=== PATIENT | male | born 1945 | race Hispanic/Latino ===

== ENCOUNTER → 2018-12-24 | Outpatient (CLI) | payer MEDICARE ==
--- NOTE | 2018-12-24 12:36 | Diagnostic Imaging Report ---
EXAM: Lumbar spine radiographs-5 views INDICATION: Back pain COMPARISON: None FINDINGS: BONES: Minimal anterolisthesis of L5 on S1 and retrolisthesis of L4 and L5. No acute displaced fractures. Vertebral body heights are preserved. DISCS: Mild degenerative disc changes, most pronounced at L5-S1. No significant bony neural foraminal stenosis. JOINTS: Moderate facet degenerative changes, most pronounced at L5-S1. OTHER: Atherosclerotic vascular calcifications. IMPRESSION: No acute lumbar spine radiographic findings. Mild degenerative disc and moderate facet degenerative changes, most pronounced in the lower lumbar spine. Signed by: Dr. Angelique Gonzales MD on 12/24/2018 12:33 PM
== END ==
LOC: RAD 11:38
PROVIDERS: ATTEND Internal Medicine
DX: M54.5 Low back pain (principal)
CPT/HCPCS: 72110

== ENCOUNTER 2019-08-20 07:36 | Inpatient (IN) | payer MEDICARE, OTHER ==
[2019-08-18 13:55] LABS: BASOPHILS # (AUTO) 0.1 (0.0-0.1); BASOPHILS % 0.5 % (0.0-1.0); EOSINOPHILS % 8.2 % (0.0-6.0); HEMATOCRIT 34.5 % (38.2-49.6); HEMOGLOBIN 11.3 g/dL (14.0-18.0); LYMPHOCYTES # (AUTO) 2.4 (1.0-3.2); MEAN CORPUSCULAR HGB CONC 32.8 g/dL (31-35); MEAN CORPUSCULAR VOLUME 91.5 fL (81-99); MONOCYTES # (AUTO) 0.8 (0.2-0.8); MONOCYTES % 7.3 % (4.4-11.3); NEUTROPHILS # (AUTO) 7.2 (2.1-6.9); NEUTROPHILS % 62.5 % (38.7-80.0); PLATELET COUNT 263 x10e3/uL (140-360); RED BLOOD COUNT 3.77 x10e6/uL (4.3-5.7); RED CELL DISTRIBUTION WIDTH 13.9 % (11.7-14.4)
--- NOTE | 2019-08-18 14:11 | Diagnostic Imaging Report ---
EXAMINATION: CHEST 2 VIEWS INDICATION: Pre-operative COMPARISON: None FINDINGS: LINES/TUBES:None LUNGS:The lungs are well-inflated. No focal consolidation or pulmonary edema. PLEURA:No pleural effusion or pneumothorax. MEDIASTINUM:The cardiomediastinal silhouette appears normal in size and shape. BONES/SOFT TISSUES:No acute osseous injury. Sternotomy wires in place. ABDOMEN:No free air under the diaphragm. IMPRESSION: No focal pneumonia or pulmonary edema. Signed by: Alexandria Santos MD on 08/18/2019 2:09 PM
[2019-08-18 14:19] LABS: ANION GAP 15.6 mmol/L (8-16); BLOOD UREA NITROGEN 18 mg/dL (7-26); BUN/CREATININE RATIO 19 (6-25); CALCIUM 9.7 mg/dL (8.4-10.2); CARBON DIOXIDE 24 mmol/L (22-29); CHLORIDE 107 mmol/L (98-107); CREATININE, SERUM 0.96 mg/dL (0.72-1.25); EST GLOMERULAR FILTRATION RATE > 60 ML/MIN (60-); GLUCOSE 142 mg/dL (74-118); POTASSIUM 4.6 mmol/L (3.5-5.1); SODIUM 142 mmol/L (136-145)
[~2019-08-20] VITALS: Ht 162.6 cm; Wt 78.5 kg
[~2019-08-20 07:36] MED LIST: ASPIR 8181 MG PO; ATORVASTATIN CA20 MG PO; CENTRUM ADULTS1 EACH PO; DIGOXIN125 MCG PO; FINASTERIDE5 MG PO; FLOMAX0.4 MG PO; HUMALOG100 UNIT/3 SQ; LANTUS 3ML100 UNITS/ SQ; LISINOPRIL10 MG PO; LISINOPRIL2.5 MG PO; LYRICA50 MG PO; METFORMIN HCL500 MG PO; METOPROLOL SUCC25 MG PO; VITAMIN D32000 UNI1 PO; VITAMIN D400 UNIT PO
--- OUTSIDE RECORDS SUMMARY | 2019-08-20 07:47 | XMS REPORT ---
[facility] Address Unknown Phone Unavailable Care Team Providers Care Dulser Name Role Phone BERTIN CARRASCO Unavailable Unavailable AKI MTZ Unavailable Unavailable Payers Payer Name Policy Type Policy Number Effective Date Expiration Date Problems This patient has no known problems. Allergies, Adverse Reactions, Alerts Allergy Name Allergy Type Status Severity Reaction(s) Onset Date Inactive Date Treating Clinician Comments No Known Allergies DA Active U 2018-11-25 00:00:00 No Known Allergies DA Active U 2014-10-01 00:00:00 No Known Allergies DA Active U 2012-08-18 00:00:00 Medications This patient has no known medications. Results Test Description Test Time Test Comments Text Results Atomic Results Result Comments CHEST 2 VIEWS 2019-08-18 14:07:00 [facility] [address] [address] Patient Name: TORI TRIPLETT MR #: [id number] : 1945 Age/Sex: 73/M Req #: [id number] Adm Physician: Ordered by: BERTIN CARRASCO MD Report #: [id number] Location: OR Room/Bed: Procedure: [id number] DX/CHEST 2 VIEWS Exam Date: 08/18/19 Exam Time: 1345 REPORT STATUS: Signed EXAMINATION: CHEST 2 VIEWS INDICATION: Pre-operative COMPARISON: None FINDINGS: LINES/TUBES:None LUNGS:The lungs are well-inflated. No focal consolidation or pulmonary edema. PLEURA:No pleural effusion or pneumothorax. MEDIASTINUM:The cardiomediastinal silhouette appears normal in size and shape. BONES/SOFT TISSUES:No acute osseous injury. Sternotomy wires in place. ABDOMEN:No free air under the diaphragm. IMPRESSION: No focal pneumonia or pulmonary edema. Signed by: Sallie Valenzuela MD on 08/18/2019 2:09 PM Dictated By: SALLIE VALENZUELA MD 08 Transcribed By: KENZIE on 08/18/191408 COPY TO: BERTIN CARRASCO MD - XR C-SPINE 4-5 V 2019-02-28 12:17:00 FAX: Aki Espitia MD [phone] [place]: O St: REG Name: UZIEL REDDL[facility]VIABAS[facility] : 1945 Age/S: 73/M [address] Unit #: [id number] Loc: [place] [address] Phys: Aki Mtz MD Acct: [id number] Dis Date: Status: REG CLI PHONE #: [phone] Exam Date: 02/28/2019 1158 FAX #: [phone] Reason: CERVICAL SPINE PAIN EXAMS: CPT CODE: [id number] XR C-SPINE 4-5 V 71112 HISTORY: Pain. COMPARISON: None available. 5 views of the cervical spine: No acute fracture or dislocation. Vertebral body heights are maintained. Mild straightening may suggest muscular spasm or this could be positional. C7 is partially obscured by overlying shoulder. Marginal osteophytes throughout the cervical spine with sparing of the C4 vertebral body. No prevertebral soft tissue swelling. Narrowed disc space at C5-C6 level. Cervical foraminal narrowing at C5-C6 level from posterior osteophytes especially on the left side. Uncovertebral joints are narrowed. Lateral masses are well marginated. Lung apices are clear. IMPRESSION: No acute fracture or dislocation. 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 at 1217 Reported and signed by: Charles Holman M.D. CC: Aki Mtz Technologist: RT ANAI(Myriam) Trnscrd Date/Time/By: 02/28/2019 (1217) : By: [email or web address] Orig Print D/T: S: 02/28/2019 (6551) PAGE 1 Signed Report GLUBED 2019-02-10 04:55:00 GLUBED (test code=GLUBED) 146 MG/DL 70-110 Performed by certified gas station operator at [facility] - RETRO [id number] 14:22:00 Name: TORI GREGORY [facility] : 1945 Age/S: 73 / M [address] [place] [address] Unit #: [id number] Loc: [place] [address] Phys: Bertin Carrasco MD Acct: [id number] Dis Date: Status: ADM IN PHONE #: [phone] Exam Date: 02/08/2019 1354 FAX #: [phone] Reason: UTI EXAMS: CPT CODE: [id number] RETRO LTD 29749 PROCEDURE: RENAL ULTRASOUND INDICATION: Urinary tract infection COMPARISON: CT 11/26/2018 TECHNIQUE: Sonographic evaluation of the kidneys and urinary bladder was performed. FINDINGS: Aorta, bifurcation, and IVC are not well-visualized. KIDNEYS: The right kidney measures 10.7 cm in length. Normal contour and parenchymal echogenicity. There is no hydronephrosis, nephrolithiasis, mass lesion or perinephric collection. The left kidney measures 10.7 cm in length. Normal contour and parenchymal echogenicity. There is no hydronephrosis, nephrolithiasis, mass lesion or perinephric collection. BLADDER: Not distended. Heterogenous mass along the inferior portion of the urinary bladder measures 5.9 x 5.0 x 5.3 cm. There is extrinsic mass effect. IMPRESSION: 1. No hydronephrosis or renal stones. 2. Enlarged prostate SL: [id number] at 1422 Reported and signed by: Sb Her M.D. CC: Bertin Carrasco MD; Aki Mtz MD Technologist: Rashmi Soler RDMS(OB)(AB) Trnscb Date/Time: 02/08/2019 (1422) [email or web address] Orig Print D/T: S: 02/08/2019 (5817) Probe: PAGE 1 Signed Report [id number] 11:53:00* Test Item Value Reference Range Comments GLUBED (test code=GLUBED) 86 MG/DL 70-110 Performed by certified gas station operator at [facility] [id number] 08:28:00* Test Item Value Reference Range Comments GLUBED (test code=GLUBED) 108 MG/DL 70-110 Performed by certified gas station operator at [facility] [id number] 16:54:00* Test Item Value Reference Range Comments GLUBED (test code=GLUBED) 129 MG/DL 70-110 Performed by certified gas station operator at [facility] BASIC METABOLIC [id number] 14:33:00* Test Item Value Reference Range Comments SODIUM (test code=NA) 141 mEq/L 134-147 POTASSIUM (test code=K) 4.1 mEq/L 3.4-5.0 CHLORIDE (test code=CL) 106 mEq/L 100-108 CARBON DIOXIDE (test code=CO2) 27 mEq/L 21-33 ANION GAP (test code=GAP) 12 0-20 GLUCOSE (test code=GLU) 128 mg/dL 70-110 BLOOD UREA NITROGEN (test code=BUN) 20 mg/dL 7-18 GLOMERULAR FILTRATION RATE (test code=GFR) 73.2 70-80 Units of measure=ml/min/1.73 m2 CREATININE (test code=CREAT) 1.0 mg/dL 0.6-1.3 CALCIUM (test code=CA) 8.8 mg/dL 8.0-10.5 [id number] 14:33:00* Test Item Value Reference Range Comments MAGNESIUM (test code=MAG) 1.40 mg/dL 1.8-2.4 CBC W/AUTO [id number] 14:20:00* Test Item Value Reference Range Comments WHITE BLOOD CELL (test code=WBC) 8.28 x10 3/uL 4.5-11.0 RED BLOOD CELL (test code=RBC) 4.07 x10 6/uL 4.00-5.60 HEMOGLOBIN (test code=HGB) 11.4 g/dL 12.5-16.9 HEMATOCRIT (test code=HCT) 35.1 % 37.5-50.7 MEAN CELL VOLUME (test code=MCV) 86.2 fL 81.0-99.0 MEAN CELL HGB (test code=MCH) 28.0 pg 27.0-33.0 MEAN CELL HGB CONCETRATION (test code=MCHC) 32.5 g/dL 33.0-37.0 RED CELL DISTRIBUTION WIDTH CV (test code=RDW) 16.4 % 11.5-14.5 RED CELL DISTRIBUTION WIDTH SD (test code=RDW-SD) 51.8 fL 37.0-54.0 PLATELET COUNT (test code=PLT) 398 x10 3/uL 150-400 MEAN PLATELET VOLUME (test code=MPV) 9.8 fL 7.0-9.0 NEUTROPHIL % (test code=NT%) 53.4 % 56.0-77.0 IMMATURE GRANULOCYTE % (test code=IG%) 0.5 % 0.0-2.0 LYMPHOCYTE % (test code=LY%) 26.3 % 14.0-32.0 MONOCYTE % (test code=MO%) 8.6 % 4.8-9.0 EOSINOPHIL % (test code=EO%) 10.5 % 0.3-3.7 BASOPHIL % (test code=BA%) 0.7 % 0.0-2.0 NUCLEATED RBC % (test code=NRBC%) 0.0 % 0-0 NEUTROPHIL # (test code=NT#) 4.42 x10 3/uL 2.0-7.6 IMMATURE GRANULOCYTE # (test code=IG#) 0.04 x10 3/uL 0.00-0.03 LYMPHOCYTE # (test code=LY#) 2.18 x10 3/uL 1.0-3.8 MONOCYTE # (test code=MO#) 0.71 x10 3/uL 0.1-0.8 EOSINOPHIL # (test code=EO#) 0.87 x10 3/uL 0.0-0.2 BASOPHIL # (test code=BA#) 0.06 x10 3/uL 0.0-0.2 NUCLEATED RBC # (test code=NRBC#) 0.00 x10 3/uL 0.0-0.1 MANUAL DIFF REQUIRED (test code=MDIFF) NO [id number] 12:02:00* Test Item Value Reference Range Comments GLUBED (test code=GLUBED) 106 MG/DL 70-110 Performed by certified gas station operator at [facility] [id number] 09:28:00* Test Item Value Reference Range Comments GLUBED (test code=GLUBED) 152 MG/DL 70-110 Performed by certified gas station operator at [facility] [id number] 09:01:00* Test Item Value Reference Range Comments GLUBED (test code=GLUBED) 119 MG/DL 70-110 Performed by certified gas station operator at [facility] [id number] 18:28:00* Test Item Value Reference Range Comments GLUBED (test code=GLUBED) 122 MG/DL 70-110 Performed by certified gas station operator at [facility] [id number] 13:20:00* Test Item Value Reference Range Comments GLUBED (test code=GLUBED) 172 MG/DL 70-110 Performed by certified gas station operator at [facility] [id number] 13:20:00* Test Item Value Reference Range Comments GLUBED (test code=GLUBED) 126 MG/DL 70-110 Performed by certified gas station operator at [facility] [id number] 21:12:00* Test Item Value Reference Range Comments GLUBED (test code=GLUBED) 207 MG/DL 70-110 Performed by certified gas station operator at [facility] [id number] 20:54:00* Test Item Value Reference Range Comments TROPONIN-I (test code=TROPI) 0.036 ng/mL 0.000-0.045 Negative: <=0.045 Positive: >=0.046 Correlation with serial results, other cardiac markers andclinical findings is necessary to determine the clinicalsignificance of this result. Results using different methodologies should not be comparedto one another as quantitative results may vary by method. COMMENTS: 3 troponins total (including troponin done in ED)[id number] 17:11:00* Test Item Value Reference Range Comments TROPONIN-I (test code=TROPI) 0.031 ng/mL 0.000-0.045 Negative: <=0.045 Positive: >=0.046 Correlation with serial results, other cardiac markers andclinical findings is necessary to determine the clinicalsignificance of this result. Results using different methodologies should not be comparedto one another as quantitative results may vary by method. COMMENTS: 3 troponins total (including troponin done in ED)PROCALCITONIN (PCT) 2019-02-05 14:12:00* Test Item Value Reference Range Comments PROCALCITONIN (PCT) (test code=PROCAL) 0.10 ng/mL 0.00-0.05 PROCALCITONIN (PCT) NORMAL RANGE (ADULT): <0.05 NG/ML. * a concentration <0.5 ng/mL represents a low risk of severe sepsis and/or septic shock.* a concentration >2 ng/mL represents a high risk of severe sepsis and/or septic shock.Nevertheless, concentrations <0.5 ng/mL do not exclude aninfection, on account of localized infections (withoutsystemic signs) which can be associated with such lowconcentrations, or a systemic infection in its initialstages (< 6 hours). Furthermore, increased procalcitonincan occur without infection. PCT concentrations between 0.5and 2.0 ng/mL should be interpreted taking into account thepatient's history. It is recommended to retest PCT within6-24 hours if any concentrations <2 ng/mL are obtained. URINALYSIS [id number] 12:24:00* Test Item Value Reference Range Comments UA COLOR (test code=COLU) ISMAEL YEL/STRAW UA APPEARANCE (test code=APPU) CLOUDY CLEAR UA GLUCOSE DIPSTICK (test code=DGLUU) NEGATIVE NEGATIVE UA BILIRUBIN DIPSTICK (test code=BILU) NEGATIVE NEGATIVE UA KETONE DIPSTICK (test code=KETU) NEGATIVE NEGATIVE UA SPECIFIC GRAVITY (test code=SGU) 1.017 1.005-1.030 UA BLOOD DIPSTICK (test code=BO) 1+ NEGATIVE UA PH DIPSTICK (test code=MARIBEL) 5.0 5.0-7.0 UA PROTEIN DIPSTICK (test code=PROU) NEGATIVE NEGATIVE UA UROBILINIOGEN DIPSTICK (test code=URO) 0.2 mg/dL 0.2-1.0 UA NITRITE DIPSTICK (test code=JAMEEL) NEGATIVE NEGATIVE UA LEUKOCYTE ESTERASE DIPSTICK (test code=LEUU) 3+ NEGATIVE UA WBC (test code=WBCU) >50 WBC/HPF 0-3 UA RBC (test code=RBCU) 4-10 RBC/HPF 0-3 UA BACTERIA (test code=BACU) 4+ /HPF NONE SEEN UA SQUAMOUS CELLS (test code=SQU) 0-5 /HPF NONE SEEN UA HYALINE CAST (test code=HYALU) 3-5 /LPF NONE SEEN UA MUCUS (test code=MUCU) TRACE /LPF NONE SEEN COMMENTS: Clean [id number] 11:13:00* Test Item Value Reference Range Comments TROPONIN-I (test code=TROPI) 0.020 ng/mL 0.000-0.045 Negative: <=0.045 Positive: >=0.046 Correlation with serial results, other cardiac markers andclinical findings is necessary to determine the clinicalsignificance of this result. Results using different methodologies should not be comparedto one another as quantitative results may vary by method. - XR CHEST 1 [id number] 11:02:00 FAX: Lupe Gracia DO [phone] [place]: GE St: PRE Name: TORI SOMERS [facility] : [birth year] Age/S: 73/M [address] [place] [address] Blvd Unit #: [id number] Loc: [place] [address] Phys: Lupe Glaser DO Acct: [id number] Dis Date: Status: PRE ER PHONE #: [phone] Exam Date: 02/05/2019 1049 FAX #: [phone] Reason: FEVER EXAMS: CPT CODE: [id number] XR CHEST 1 V 57986 PROCEDURE: CHEST SINGLE VIEW INDICATION: Fever COMPARISON: Multiple priors, most recent October 2018 FINDINGS: AP portable chest obtained semiupright with slight lordotic projection. There are increased interstitial lines bilate ral. No consolidation. Aeration improved from most recent prior with impro meagan definition of the pulmonary vasculature. No pleural abnormality. Previous median sternotomy. Mild prominence of the cardiac silhouette, ma gnified by projection without significant change. No acute skeletal abnorm ality. IMPRESSION: 1. Increased interstitial lines may reflect interstitial edema. Inflammation included in the differential. N o definite pneumonia. SL: [id number] at 1102 Reported and signed by: Iker Miller M.D. CC: Lupe Glaser DO Technologist: MIRYAM Kim) Trnscrd Date/Time/By: 02/05/2019 (1102) : By: Yessy Orig Print D/T: S: 02/05/2019 (2056) PAGE 1 Signed Report TROPONIN-I [id number] 10:56:00* Test Item Value Reference Range Comments TROPONIN-I RAPID (test code=TROPIRAP) 0.02 ng/mL 0.00-0.08 Performed by certified gas station operator at [facility] Negative: <=0.08 Positive: >=0.09An elevated troponin value alone is not sufficient todiagnose a myocardial infarction. Rather, the patient sclinical presentation (history, physical exam) and ECGshould be used in conjunction with troponin in thediagnostic evaluation of suspected myocardial infarction. Aserial sampling protocol is recommended to facilitate the identification of temporal changes in troponin levels characteristic of NM. LACTIC ACID [id number] 10:56:00* Test Item Value Reference Range Comments LACTIC ACID POC (test code=LACTP) 1.6 MMOL/L 0.90-1.70 Performed by certified gas station operator at [facility] CBC W/AUTO [id number] 10:53:00* Test Item Value Reference Range Comments WHITE BLOOD CELL (test code=WBC) 8.51 x10 3/uL 4.5-11.0 RED BLOOD CELL (test code=RBC) 3.64 x10 6/uL 4.00-5.60 HEMOGLOBIN (test code=HGB) 10.3 g/dL 12.5-16.9 HEMATOCRIT (test code=HCT) 31.8 % 37.5-50.7 MEAN CELL VOLUME (test code=MCV) 87.4 fL 81.0-99.0 MEAN CELL HGB (test code=MCH) 28.3 pg 27.0-33.0 MEAN CELL HGB CONCETRATION (test code=MCHC) 32.4 g/dL 33.0-37.0 RED CELL DISTRIBUTION WIDTH CV (test code=RDW) 16.8 % 11.5-14.5 RED CELL DISTRIBUTION WIDTH SD (test code=RDW-SD) 53.4 fL 37.0-54.0 PLATELET COUNT (test code=PLT) 344 x10 3/uL 150-400 MEAN PLATELET VOLUME (test code=MPV) 9.8 fL 7.0-9.0 NEUTROPHIL % (test code=NT%) 63.6 % 56.0-77.0 IMMATURE GRANULOCYTE % (test code=IG%) 0.7 % 0.0-2.0 LYMPHOCYTE % (test code=LY%) 16.3 % 14.0-32.0 MONOCYTE % (test code=MO%) 9.6 % 4.8-9.0 EOSINOPHIL % (test code=EO%) 9.4 % 0.3-3.7 BASOPHIL % (test code=BA%) 0.4 % 0.0-2.0 NUCLEATED RBC % (test code=NRBC%) 0.0 % 0-0 NEUTROPHIL # (test code=NT#) 5.41 x10 3/uL 2.0-7.6 IMMATURE GRANULOCYTE # (test code=IG#) 0.06 x10 3/uL 0.00-0.03 LYMPHOCYTE # (test code=LY#) 1.39 x10 3/uL 1.0-3.8 MONOCYTE # (test code=MO#) 0.82 x10 3/uL 0.1-0.8 EOSINOPHIL # (test code=EO#) 0.80 x10 3/uL 0.0-0.2 BASOPHIL # (test code=BA#) 0.03 x10 3/uL 0.0-0.2 NUCLEATED RBC # (test code=NRBC#) 0.00 x10 3/uL 0.0-0.1 MANUAL DIFF REQUIRED (test code=MDIFF) NO CHEMISTRY 8 [id number] 10:44:00* Test Item Value Reference Range Comments ISTAT-SODIUM (test code=NAP) MMOL/L 134-147 ISTAT-POTASSIUM (test code=KP) MMOL/L 3.4-5.0 ISTAT-CHLORIDE (test code=CLP) MMOL/L 100-108 ISTAT CARBON DIOXIDE (test code=ISTAT-CO2) mmol/L 21-33 ISTAT CALCIUM IONIZED (test code=ISTAT-AMANDA) MG/DL 1.12-1.32 ISTAT-GLUCOSE (test code=GLUP) MG/DL 70-110 ISTAT-BUN (test code=BUNP) MG/DL 7-18 BEDSIDE CREATININE (test code=CREATBED) MG/DL 0.6-1.3 GLOMERULAR FILTRATION RATE POC (test code=GFRBED) 78 ML/MIN CHEMISTRY 8 [id number] 10:44:00* Test Item Value Reference Range Comments ISTAT-SODIUM (test code=NAP) 141 MMOL/L 134-147 ISTAT-POTASSIUM (test code=KP) 4.3 MMOL/L 3.4-5.0 ISTAT-CHLORIDE (test code=CLP) 104 MMOL/L 100-108 Performed by certified gas station operator at [facility] ISTAT CARBON DIOXIDE (test code=ISTAT-CO2) 26.0 mmol/L 21-33 ISTAT CALCIUM IONIZED (test code=ISTAT-AMANDA) 1.16 MG/DL 1.12-1.32 ISTAT-GLUCOSE (test code=GLUP) 173 MG/DL 70-110 ISTAT-BUN (test code=BUNP) 22 MG/DL 7-18 BEDSIDE CREATININE (test code=CREATBED) 1.0 MG/DL 0.6-1.3 GLOMERULAR FILTRATION RATE POC (test code=GFRBED) 78 ML/MIN SP LUMBAR, COMPLETE MIN [id number] 12:30:00 [address] [address] Patient Name: TORI TRIPLETT MR #: [id number] : 1945 Age/Sex: 73/M Req #: [id number] Adm Physician: Ordered by: AKI MTZ MD Report #: [id number] Location: [facility] Room/Bed: Procedure: [id number] DX/ SP LUMBAR, COMPLETE MIN 4VW Exam Date: 12/24/18 Exam Time: 1200 REPORT STATUS: Signed EXAM: Lumbar spine radiographs-5 views INDICATION: Back pain COMPARI SON: None FINDINGS: BONES: Minimal anterolisthesis of L5 on S1 and retr olisthesis of L4 and L5. No acute displaced fractures. Vertebral body height s are preserved. DISCS: Mild degenerative disc changes, most pronounced a t L5-S1. No significant bony neural foraminal stenosis. JOINTS: Moderat e facet degenerative changes, most pronounced at L5-S1. OTHER: Atheroscl erotic vascular calcifications. IMPRESSION: No acute lumbar spine radiogr aphic findings. Mild degenerative disc and moderate facet degenerative ch anges, most pronounced in the lower lumbar spine. Signed by: Dr. Debbie encarnacion MD on 12/24/2018 12:33 PM Dictated By: DEBBIE SINHA MD Electronically S igned By: DEBBIE SINHA MD on 12/24/18 1233 Transcribed By: KENZIE on 12/24/18 12 33 COPY TO: AKI MTZ MD [id number] 16:54:00* Test Item Value Reference Range Comments GLUBED (test code=GLUBED) 136 MG/DL 70-110 Performed by certified gas station operator at [facility] [id number] 12:43:00* Test Item Value Reference Range Comments GLUBED (test code=GLUBED) 129 MG/DL 70-110 Performed by certified gas station operator at [facility] [id number] 07:50:00* Test Item Value Reference Range Comments GLUBED (test code=GLUBED) 162 MG/DL 70-110 Performed by certified gas station operator at [facility] [id number] 22:23:00* Test Item Value Reference Range Comments GLUBED (test code=GLUBED) 168 MG/DL 70-110 Performed by certified gas station operator at [facility] [id number] 15:49:00* Test Item Value Reference Range Comments GLUBED (test code=GLUBED) 158 MG/DL 70-110 Performed by certified gas station operator at [facility] [id number] 11:05:00* Test Item Value Reference Range Comments GLUBED (test code=GLUBED) 206 MG/DL 70-110 Performed by certified gas station operator at [facility] [id number] 07:29:00* Test Item Value Reference Range Comments GLUBED (test code=GLUBED) 156 MG/DL 70-110 Performed by certified gas station operator at [facility] [id number] 21:29:00* Test Item Value Reference Range Comments GLUBED (test code=GLUBED) 248 MG/DL 70-110 Performed by certified gas station operator at [facility] [id number] 17:22:00* Test Item Value Reference Range Comments GLUBED (test code=GLUBED) 138 MG/DL 70-110 Performed by certified gas station operator at [facility] - US SCROTUM AND [id number] 17:17:00 Name: TORI TRIPLETT [facility] : 1945 Age/S: 73 / M [address] [place] [address] Unit #: [id number] Loc: [place] [address] Phys: Aki Mtz MD Acct: [id number] Dis Date: Status: ADM IN PHONE #: [phone] Exam Date: 2018 1636 FAX #: [phone] Reason: SCROTUM, TESICULAR PAIN/DISCOMFORT EXAMS: CPT CODE: [id number] US SCROTUM AND [facility] [address] PROCEDURE: SCROTAL ULTRASOUND INDICATION: Right testicular pain for several months. Sepsis. COMPARISON: Abdominal pelvic CT scan of 11/26/2018. TECHNIQUE: Sonographic evaluation of the scrotum and testes was performed using high resolution B-mode imaging, pulse and color Doppler imaging. FINDINGS: TESTES: The right side of the scrotum is markedly abnormal with evidence of a heterogeneous, 3.5 cm mass with Doppler analysis showing diffuse, brisk, internal flow throughout the lesion. The lesion distorts the capsule of the right testis. There are some images that suggest this may be extrinsic to the testis, but others suggesting that this may have originated within the periphery of the right testis and now extends through the capsule into the peritesticular tissue. Doppler analysis shows generally increased blood flow to the entire right hemiscrotum. No evidence of testicular torsion. The left testis is normal in size and shape with normal Doppler analysis. EPIDIDYMIDES: Right epididymis is heterogeneous and mildly prominent measuring up to 2 cm in length. The left epididymis is unremarkable. SCROTUM: Small volume right hydrocele. IMPRESSION: 1. Abnormal appearance of the right side of the scrotum with evidence of a vascular, 3.5 cm lesion/mass. I am uncertain if this represents an intratesticular or extratesticular lesion. I favor that this represents neoplasm, but I cannot exclude the possibility of a chronic epididymoo rchitis. 2. Normal left testis. 3. No evidence of testicular t orsion. SL:01 PAGE 1 Si gned Report (CONTINUED) Name: TORI TRIPLETT [facility] : 1945 Age/S: 73 / M [address] [facility] Unit #: [id number] Loc: [place] [address] Phys: Aki Mtz MD Acct: [id number] Dis Date: Status: ADM IN PHONE #: [phone] Exam Date: 2018 1636 FAX #: [phone] Reason: SCROTUM, TESICULAR P AIN/DISCOMFORT EXAMS: CPT CODE: [id number] US SCROTUM AND CNTS 65110 <Continued> at 1717 Reported and signed by: Miki Swan M.D. CC: Aki Mtz MD Technologist: Brent Savage RDMS (AB) (OB) Trnscb Date/Time: 2018 (171) [id number] Orig Print D/T: S: 2018 (172) Probe: PAGE 2 Signed Report - US SCROTUM AND [id number] 17:17:00 Name: TORI GREGORY [facility] : 1945 Age/S: 73 / M [address] [facility] Unit #: [id number] Loc: [place] [address] Phys: Aki Mtz MD Acct: [id number] Dis Date: Status: ADM IN PHONE #: [phone] Exam Date: 2018 1636 FAX #: [phone] Reason: SCROTUM, TESICULAR PAIN/DISCOMFORT EXAMS: CPT CODE: [id number] US SCROTUM AND CNTS [address]174 PROCEDURE: SCROTAL ULTRASOUND INDICATION: Right testicular pain for several months. Sepsis. COMPARISON: Abdominal pelvic CT scan of 11/26/2018. TECHNIQUE: Sonographic evaluation of the scrotum and testes was performed using high resolution B-mode imaging, pulse and color Doppler imaging. FINDINGS: TESTES: The right side of the scrotum is markedly abnormal with evidence of a heterogeneous, 3.5 cm mass with Doppler analysis showing diffuse, brisk, internal flow throughout the lesion. The lesion distorts the capsule of the right testis. There are some images that suggest this may be extrinsic to the testis, but others suggesting that this may have originated within the periphery of the right testis and now extends through the capsule into the peritesticular tissue. Doppler analysis shows generally increased blood flow to the entire right hemiscrotum. No evidence of testicular torsion. The left testis is normal in size and shape with normal Doppler analysis. EPIDIDYMIDES: Right epididymis is heterogeneous and mildly prominent measuring up to 2 cm in length. The left epididymis is unremarkable. SCROTUM: Small volume right hydrocele. IMPRESSION: 1. Abnormal appearance of the right side of the scrotum with evidence of a vascular, 3.5 cm lesion/mass. I am uncertain if this represents an intratesticular or extratesticular lesion. I favor that this represents neoplasm, but I cannot exclude the possibility of a chronic epididymoo rchitis. 2. Normal left testis. 3. No evidence of testicular t orsion. SL:01 PAGE 1 Si gned Report (CONTINUED) Name: TORI GREGORY [facility] : 1945 Age/S: 73 / M 5 [address] [facility] Unit #: [id number] Loc: [place] [address] Phys: Aki Mtz MD Acct: [id number] Dis Date: Status: ADM IN PHONE #: [phone] Exam Date: 2018 1636 FAX #: [phone] Reason: SCROTUM, TESICULAR P AIN/DISCOMFORT EXAMS: CPT CODE: [id number] US SCROTUM AND CNTS 02838 <Continued> at 1717 Reported and signed by: Miki Swan M.D. CC: Aki Mtz MD Technologist: Brent Savage RDMS () (OB) Trnscb Date/Time: 2018 (171) [place] Orig Print D/T: S: 2018 (1720) Probe: PAGE 2 Signed Report [id number] 11:54:00* Test Item Value Reference Range Comments GLUBED (test code=GLUBED) 237 MG/DL 70-110 Performed by certified gas station operator at [facility] [id number] 08:32:00* Test Item Value Reference Range Comments GLUBED (test code=GLUBED) 134 MG/DL 70-110 Performed by certified gas station operator at [facility] [id number] 21:02:00* Test Item Value Reference Range Comments GLUBED (test code=GLUBED) 181 MG/DL 70-110 Performed by certified gas station operator at [facility] - MRA NECK [id number] 19:10:00 FAX: Sudhir Watson MD [phone] [place]: St: [facility] FAX: Aki Espitia MD [phone] Name: TORI TRIPLETT [facility] : 1945 Age/S: 72/M [address] [place] [address] Unit #: [id number] Loc: G.3340 [facility] [address] Phys: Sudhir Watson MD Acct: [id number] Dis Date: Status: ADM IN PHONE #: [phone] Exam Date: 11/27/2018 1510 FAX #: [phone] Reason: TIA EXAMS: CPT CODE: [id number] MRA NECK W/CONT 20589 INDICATION: Right arm numbness, transient ischemic attack. COMPARISON: CT brain study dated 11/26/2018. TECHNIQUE: -Pre and postinfusion multiplanar and multisequential MRI images of the brain were obtained. - Three-dimensional time of flight brain MR angiog freedom of intracranial vessels is performed, and maximum intensity projecti on reformatted images are presented in multiple three-dimensional ro tational projections. - Two-dimensional time of flight neck MR angiography of extracranial arterial system was performed and reformatted images are presented in three-dimensional maximum intensity rotational projections. Three-dimensional nkmc-ub-jxtvuk MR angiography centered at the carot id bifurcations was included. IV contrast: 17 mL of MultiHance int ravenously. FINDINGS: BRAIN MRI: Ther e are scattered T2/FLAIR hyperintensities predominantly in the in the bifr ontal subcortical and periventricular white matter as well as brainstem co mpatible with mild chronic microvascular ischemic changes. No abnormality is present on the diffusion weighted images. No edema, hemorrhage, or ext ra axial collection is identified. There is no mass or mass-effect. The v entricles and cortical sulci are prominent but appropriate for age. The b javed cisterns are patent. On postinfusion images, no abnormal lep tomeningeal or parenchymal enhancement noted. The skull base , paranasal sinuses, and orbits have normal appearance. Bilateral pseudophakia. Visualized paranasal sinuses and mastoid air cells are well -aerated bilaterally. BRAIN MRA: Persistent or igin of the left posterior cerebral artery-anatomic variation. Mild to mo derate areas of atherosclerotic irregularity along the bilateral cavernous and supraclinoid internal carotid PAGE 1 Signed Repo rt (CONTINUED) FAX: Sudhir Watson MD [place]: St: ADM FAX: Aki Espitia MD [phone] ------ Name: TORI TRIPLETT [facility] : 08/1945 Age/S: 72/M [address] [place] [address] Blvd Unit #: [id number] Loc: [address] [place] [address] Phys: Sudhir Watson MD Acct: [id number] Dis Date: Status: ADM IN PHONE #: [phone] Exam Date: 11/27/2018 1510 FAX #: [phone] Reason: TIA EXAMS: CPT CODE: [id number] MRA NECK W/CONT 59597 <Continued> arteries with mild to moderate focal stenosis. Bilateral anterior cerebral arteries, middle cerebral arteries and their branches are unremarkable. 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 Diminutive caliber of the vertebrobasilar system. The origins of the superior cerebellar arteries are unremarkable bilaterally. NECK MRA: Carotid circ ulation: Common origin of the right innominate and left common ca rotid arteries-anatomic variation. The cervical common carotid arteries have a normal course caliber and contour. Iwhb-at-sjqjjlqc atheroscl erotic irregularity along the right carotid bulb extending into the proxim al right internal and external carotid arteries without significant stenos is of the proximal right internal carotid artery. Mild atherosclerotic ir regularity along the left common carotid bifurcation without hemodynamical ly significant stenosis as per the NASCET criteria. Vertebro basilar circulation: The origin of the left vertebral artery and the proximal cervical segment of the left vertebral artery is not well-vis ualized, likely hypoplastic/occluded. Partial recanalization of the left distal V1 and V2 segments. The origin of the right vertebral artery and i ts cervical segment have a normal course caliber and contour in the neck. IMPRESSION: MRI BRAIN: 1. No acute infarct, acute intracranial hemorrhage. No abnormal enhancement 2. Mild chronic microvascular ischemic changes w ith age-appropriate parenchymal volume loss. MR joseph ogram brain and neck: PAGE 2 Signed Report (CONTINUED) FAX: Sudhir Watson MD [phone] [place]: St: [facility] FAX: Aki Espitia MD [phone] Name: ELVIA TRIPLETT [facility] : 1945 Age/S : 72/M [address] [place] [address] Blvd Unit #: [id number] Loc: [place] [address] [place] [address] Phys: Sudhir Watson MD Acct: [id number] Dis Date: Status: ADM IN PHONE #: [phone] Exam Date: 11/27/2018 1510 FAX #: [phone] Reason: TIA EXAMS: CPT CODE: [id number] MRA NECK W/CONT 15070 <Continued> 1. Atherosclerotic irregularity with mild to moderate focal stenosis along the bilateral cavernous and supraclinoid internal carotid arteries. 2. 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 Partial recanalization in the left distal V1 and V2 segments. 3. Mild to moderate atherosclerotic irregularity along the right carotid bulb without hemodynamically significant stenosis of the proximal right internal carotid artery as per the NASCET criteria. All qualitative and quantitative assessments of carotid bifurcation and proximal internal carotid artery stenosis are made referencing the distal internal carotid artery (NASCET criteria). SL: HOSSEIN at 1909 Reported and signed by: Cynthia Hall M.D. CC: Sudhir Watson MD; Aki Mtz MD Technologist: Jose Henderson, RT(R)(CT)(MR) Trnscrd Date/Time/By: 11/27/2018 (1909) : By: [email or web address] Orig Print D/T: S: 11/27/2018 (1912) PAGE 3 Signed Report - MRA HEAD W/O CONTRAST 2018-11-27 19:10:00 FAX: Sudhir Watson MD [phone] [place]: St: [facility] FAX: Aki Espitia MD [phone] Name: TORI TRIPLETT [facility] : 1945 Age/S: 72/M [address] [place] [address] Bl Unit #: [id number] Loc: [address] [place] [address] Phys: Sudhir Watson MD Acct: [id number] Dis Date: Status: ADM IN PHONE #: [phone] Exam Date: 11/27/2018 1510 FAX #: [phone] Reason: TIA EXAMS: CPT CODE: [id number] MRA HEAD W/O CONTRAST 44087 INDICATION: Right arm numbness, transient ischemic attack. COMPARISON: CT brain study dated 11/26/2018. TECHNIQUE: -Pre and postinfusion multiplanar and multisequential MRI images of the brain were obtained. - Three-dimensional time of flight brain MR angiography of intracranial vessels is performed, and maximum intensity projection reformatted images are presented in multiple three-dimensional rotational projections. - Two-dimensional time of flight neck MR angiography of extracranial arterial system was performed and reformatted images are presented in three-dimensional maximum intensity rotational projections. Three-dimensional gynt-rv-wqaznk MR angiography centered at the carot id bifurcations was included. IV contrast: 17 mL of MultiHance int ravenously. FINDINGS: BRAIN MRI: Ther e are scattered T2/FLAIR hyperintensities predominantly in the in the bifr ontal subcortical and periventricular white matter as well as brainstem co mpatible with mild chronic microvascular ischemic changes. No abnormality is present on the diffusion weighted images. No edema, hemorrhage, or ext ra axial collection is identified. There is no mass or mass-effect. The v entricles and cortical sulci are prominent but appropriate for age. The b javed cisterns are patent. On postinfusion images, no abnormal lep tomeningeal or parenchymal enhancement noted. The skull base , paranasal sinuses, and orbits have normal appearance. Bilateral pseudophakia. Visualized paranasal sinuses and mastoid air cells are well -aerated bilaterally. BRAIN MRA: Persistent or igin of the left posterior cerebral artery-anatomic variation. Mild to mo derate areas of atherosclerotic irregularity along the bilateral cavernous and supraclinoid internal carotid PAGE 1 Signed Repo rt (CONTINUED) FAX: Sudhir Watson MD [place]: St: ADM FAX: Aki Espitia MD [phone] ------ Name: TORI TRIPLETT [facility] [place] : 08/1945 Age/S: 72/M [address] [place] [address] Blvd Unit #: [id number] Loc: [address] [address] Phys: Sudhir Watson MD Acct: [id number] Dis Date: Status: ADM IN PHONE #: [phone] Exam Date: 11/27/2018 1510 FAX #: [phone] Reason: TIA EXAMS: CPT CODE: [id number] MRA HEAD W/O CONTRAST 04521 <Continued> arteries with mild to moderate focal stenosis. Bilateral anterior cerebral arteries, middle cerebral arteries and their branches are unremarkable. 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 Diminutive caliber of the vertebrobasilar system. The origins of the superior cerebellar arteries are unremarkable bilaterally. NECK MRA: Carotid circ ulation: Common origin of the right innominate and left common ca rotid arteries-anatomic variation. The cervical common carotid arteries have a normal course caliber and contour. Yrmc-dg-smusdypp atheroscl erotic irregularity along the right carotid bulb extending into the proxim al right internal and external carotid arteries without significant stenos is of the proximal right internal carotid artery. Mild atherosclerotic ir regularity along the left common carotid bifurcation without hemodynamical ly significant stenosis as per the NASCET criteria. Vertebro basilar circulation: The origin of the left vertebral artery and the proximal cervical segment of the left vertebral artery is not well-vis ualized, likely hypoplastic/occluded. Partial recanalization of the left distal V1 and V2 segments. The origin of the right vertebral artery and i ts cervical segment have a normal course caliber and contour in the neck. IMPRESSION: MRI BRAIN: 1. No acute infarct, acute intracranial hemorrhage. No abnormal enhancement 2. Mild chronic microvascular ischemic changes w ith age-appropriate parenchymal volume loss. MR joseph ogram brain and neck: PAGE 2 Signed Report (CONTINUED) FAX: Sudhir Watson MD [phone] [place]: St: ADM FAX: Aki Espitia MD [phone] Name: ELVIA TRIPLETT [facility] : 1945 Age/S : 72/M [address] [place] [address] Blvd Unit #: [id number] Loc: [address] [address] Phys: Sudhir Watson MD Acct: [id number] Dis Date: Status: ADM IN PHONE #: [phone] Exam Date: 11/27/2018 1510 FAX #: [phone] Reason: TIA EXAMS: CPT CODE: [id number] MRA HEAD W/O CONTRAST 66791 <Continued> 1. Atherosclerotic irregularity with mild to moderate focal stenosis along the bilateral cavernous and supraclinoid internal carotid arteries. 2. 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 Partial recanalization in the left distal V1 and V2 segments. 3. Mild to moderate atherosclerotic irregularity along the right carotid bulb without hemodynamically significant stenosis of the proximal right internal carotid artery as per the NASCET criteria. All qualitative and quantitative assessments of carotid bifurcation and proximal internal carotid artery stenosis are made referencing the distal internal carotid artery (NASCET criteria). SL: TERESITA-H at 1910 Reported and signed by: Cynthia Hall M.D. CC: Sudhir Watson MD; Aki Mtz MD Technologist: Jose Henderson RT(R)(CT)(MR) Trnscrd Date/Time/By: 11/27/2018 (1909) : By: [email or web address] Orig Print D/T: S: 11/27/2018 (191) PAGE 3 Signed Report - MRA NECK W/CONT 2018-11-27 19:10:00 FAX: Sudhir Watson MD [phone] [place]: St: ADM FAX: Aki Espitia MD [phone] Name: TORI GREGORY [facility] : 1945 Age/S: 72/M [address] [place] [address] Unit #: [id number] Loc: [address] [place] [address] Phys: Sudhir Watson MD Acct: [id number] Dis Date: Status: ADM IN PHONE #: [phone] Exam Date: 11/27/2018 1510 FAX #: [phone] Reason: TIA EXAMS: CPT CODE: [id number] MRA NECK W/CONT 37126 INDICATION: Right arm numbness, transient ischemic attack. COMPARISON: CT brain study dated 11/26/2018. TECHNIQUE: -Pre and postinfusion multiplanar and multisequential MRI images of the brain were obtained. - Three-dimensional time of flight brain MR angiography of intracranial vessels is performed, and maximum intensity projection reformatted images are presented in multiple three-dimensional rotational projections. - Two-dimensional time of flight neck MR angiography of extracranial arterial system was performed and reformatted images are presented in three-dimensional maximum intensity rotational projections. Three-dimensional fdmj-pa-wolspv MR angiography centered at the carot id bifurcations was included. IV contrast: 17 mL of MultiHance int ravenously. FINDINGS: BRAIN MRI: Ther e are scattered T2/FLAIR hyperintensities predominantly in the in the bifr ontal subcortical and periventricular white matter as well as brainstem co mpatible with mild chronic microvascular ischemic changes. No abnormality is present on the diffusion weighted images. No edema, hemorrhage, or ext ra axial collection is identified. There is no mass or mass-effect. The v entricles and cortical sulci are prominent but appropriate for age. The b javed cisterns are patent. On postinfusion images, no abnormal lep tomeningeal or parenchymal enhancement noted. The skull base , paranasal sinuses, and orbits have normal appearance. Bilateral pseudophakia. Visualized paranasal sinuses and mastoid air cells are well -aerated bilaterally. BRAIN MRA: Persistent or igin of the left posterior cerebral artery-anatomic variation. Mild to mo derate areas of atherosclerotic irregularity along the bilateral cavernous and supraclinoid internal carotid PAGE 1 Signed Repo rt (CONTINUED) FAX: Sudhir Watson MD [place]: St: [facility] FAX: kAi Espitia MD [phone] ------ Name: TRIPLETT MIAELVIASHYANNEAbel [facility] : 08/1945 Age/S: 72/M [address] [place] [address] Unit #: [id number] Loc: [address] [address] Phys: Sudhir Watson MD Acct: [id number] Dis Date: Status: ADM IN PHONE #: [phone] Exam Date: 11/27/2018 1510 FAX #: [phone] Reason: TIA EXAMS: CPT CODE: [id number] MRA NECK W/CONT 27888 <Continued> arteries with mild to moderate focal stenosis. Bilateral anterior cerebral arteries, middle cerebral arteries and their branches are unremarkable. 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 Diminutive caliber of the vertebrobasilar system. The origins of the superior cerebellar arteries are unremarkable bilaterally. NECK MRA: Carotid circ ulation: Common origin of the right innominate and left common ca rotid arteries-anatomic variation. The cervical common carotid arteries have a normal course caliber and contour. Mgmn-rx-myxdrgss atheroscl erotic irregularity along the right carotid bulb extending into the proxim al right internal and external carotid arteries without significant stenos is of the proximal right internal carotid artery. Mild atherosclerotic ir regularity along the left common carotid bifurcation without hemodynamical ly significant stenosis as per the NASCET criteria. Vertebro basilar circulation: The origin of the left vertebral artery and the proximal cervical segment of the left vertebral artery is not well-vis ualized, likely hypoplastic/occluded. Partial recanalization of the left distal V1 and V2 segments. The origin of the right vertebral artery and i ts cervical segment have a normal course caliber and contour in the neck. IMPRESSION: MRI BRAIN: 1. No acute infarct, acute intracranial hemorrhage. No abnormal enhancement 2. Mild chronic microvascular ischemic changes w ith age-appropriate parenchymal volume loss. MR joseph ogram brain and neck: PAGE 2 Signed Report (CONTINUED) FAX: Sudhir Watson MD [phone] [place]: St: ADM FAX: Aki Espitia MD [phone] Name: UZIEL GARSIAELVIABASIL [facility] : 1945 Age/S : 72/M [address] [place] [address] Blvd Unit #: [id number] Loc: [address]. [address] [place] [address] Phys: Sudhir Watson MD Acct: [id number] Dis Date: Status: ADM IN PHONE #: [phone] Exam Date: 11/27/2018 1510 FAX #: [phone] Reason: TIA EXAMS: CPT CODE: [id number] MRA NECK W/CONT 82973 <Continued> 1. Atherosclerotic irregularity with mild to moderate focal stenosis along the bilateral cavernous and supraclinoid internal carotid arteries. 2. 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 Partial recanalization in the left distal V1 and V2 segments. 3. Mild to moderate atherosclerotic irregularity along the right carotid bulb without hemodynamically significant stenosis of the proximal right internal carotid artery as per the NASCET criteria. All qualitative and quantitative assessments of carotid bifurcation and proximal internal carotid artery stenosis are made referencing the distal internal carotid artery (NASCET criteria). SL: HOSSEIN at 1909 Reported and signed by: Cynthia Hall M.D. CC: Sudhir Watson MD; Aki Mtz MD Technologist: Jose Henderson, RT(R)(CT)(MR) [facility] Date/Time/By: 11/27/2018 (1909) : By: [email or web address] Orig Print D/T: S: 11/27/2018 (1912) PAGE 3 Signed Report - MRA HEAD W/O CONTRAST 2018-11-27 19:10:00 FAX: Sudhir Watson MD [phone] [place]: St: ADM FAX: Aki Espitia MD [phone] Name: TORI GREGORY [facility] : 1945 Age/S: 72/M [address] [place] [address] Blvd Unit #: [id number] Loc: [address] [address] Phys: Sudhir Watson MD Acct: [id number] Dis Date: Status: ADM IN PHONE #: [phone] Exam Date: 11/27/2018 1510 FAX #: [phone] Reason: TIA EXAMS: CPT CODE: [id number] MRA HEAD W/O CONTRAST 26445 INDICATION: Right arm numbness, transient ischemic attack. COMPARISON: CT brain study dated 11/26/2018. TECHNIQUE: -Pre and postinfusion multiplanar and multisequential MRI images of the brain were obtained. - Three-dimensional time of flight brain MR angiography of intracranial vessels is performed, and maximum intensity projection reformatted images are presented in multiple three-dimensional rotational projections. - Two-dimensional time of flight neck MR angiography of extracranial arterial system was performed and reformatted images are presented in three-dimensional maximum intensity rotational projections. Three-dimensional sjpu-jb-bgjtlm MR angiography centered at the carot id bifurcations was included. IV contrast: 17 mL of MultiHance int ravenously. FINDINGS: BRAIN MRI: Ther e are scattered T2/FLAIR hyperintensities predominantly in the in the bifr ontal subcortical and periventricular white matter as well as brainstem co mpatible with mild chronic microvascular ischemic changes. No abnormality is present on the diffusion weighted images. No edema, hemorrhage, or ext ra axial collection is identified. There is no mass or mass-effect. The v entricles and cortical sulci are prominent but appropriate for age. The b javed cisterns are patent. On postinfusion images, no abnormal lep tomeningeal or parenchymal enhancement noted. The skull base , paranasal sinuses, and orbits have normal appearance. Bilateral pseudophakia. Visualized paranasal sinuses and mastoid air cells are well -aerated bilaterally. BRAIN MRA: Persistent or igin of the left posterior cerebral artery-anatomic variation. Mild to mo derate areas of atherosclerotic irregularity along the bilateral cavernous and supraclinoid internal carotid PAGE 1 Signed Repo rt (CONTINUED) FAX: Sudhir Watson MD [place]: St: [facility] FAX: Aki Espitia MD [phone] ------ Name: TRIPLETTMily REDDLaryTOIR [facility] : 08/1945 Age/S: 72/M [address] [place], [place] [address]vd Unit #: [id number] Loc: G.[address] [place] [address] Phys: Sudhir Watson MD Acct: [id number] Dis Date: Status: ADM IN PHONE #: [phone] Exam Date: 11/27/2018 1510 FAX #: [phone] Reason: TIA EXAMS: CPT CODE: [id number] MRA HEAD W/O CONTRAST 12723 <Continued> arteries with mild to moderate focal stenosis. Bilateral anterior cerebral arteries, middle cerebral arteries and their branches are unremarkable. 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 Diminutive caliber of the vertebrobasilar system. The origins of the superior cerebellar arteries are unremarkable bilaterally. NECK MRA: Carotid circ ulation: Common origin of the right innominate and left common ca rotid arteries-anatomic variation. The cervical common carotid arteries have a normal course caliber and contour. Ccjh-jx-cfdypckx atheroscl erotic irregularity along the right carotid bulb extending into the proxim al right internal and external carotid arteries without significant stenos is of the proximal right internal carotid artery. Mild atherosclerotic ir regularity along the left common carotid bifurcation without hemodynamical ly significant stenosis as per the NASCET criteria. Vertebro basilar circulation: The origin of the left vertebral artery and the proximal cervical segment of the left vertebral artery is not well-vis ualized, likely hypoplastic/occluded. Partial recanalization of the left distal V1 and V2 segments. The origin of the right vertebral artery and i ts cervical segment have a normal course caliber and contour in the neck. IMPRESSION: MRI BRAIN: 1. No acute infarct, acute intracranial hemorrhage. No abnormal enhancement 2. Mild chronic microvascular ischemic changes w ith age-appropriate parenchymal volume loss. MR joseph ogram brain and neck: PAGE 2 Signed Report (CONTINUED) FAX: Sudhir Watson MD [phone] [place]: St: [facility] FAX: Aki Espitia MD [phone] Name: TORI MELGAR CHA [facility] [facility] : 1945 Age/S : 72/M [address] [place] [address] Blvd Unit #: [id number] Loc: NIMESH [place] [address] Phys: Sudhir Watson MD Acct: [id number] Dis Date: Status: ADM IN PHONE #: [phone] Exam Date: 11/27/2018 1510 FAX #: [phone] Reason: TIA EXAMS: CPT CODE: [id number] MRA HEAD W/O CONTRAST 72101 <Continued> 1. Atherosclerotic irregularity with mild to moderate focal stenosis along the bilateral cavernous and supraclinoid internal carotid arteries. 2. 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 Partial recanalization in the left distal V1 and V2 segments. 3. Mild to moderate atherosclerotic irregularity along the right carotid bulb without hemodynamically significant stenosis of the proximal right internal carotid artery as per the NASCET criteria. All qualitative and quantitative assessments of carotid bifurcation and proximal internal carotid artery stenosis are made referencing the distal internal carotid artery (NASCET criteria). SL: HOSSEIN at 1909 Reported and signed by: Cynthia Hall M.D. CC: Sudhir Watson MD; Aki Mtz MD Technologist: Jose Henderson RT(R)(CT)(MR) Trnazrd Date/Time/By: 11/27/2018 (1909) : By: [email or web address] Orig Print D/T: S: 11/27/2018 (1912) PAGE 3 Signed Report - MRI BRAIN WO/W CONT 2018-11-27 19:10:00 FAX: Aki Espitia MD [phone] [place]: St: ADM Name: TORI WILSON [facility] : [birth year]/28/[birth year] Age/S: 72/M [address] [place] [address] Blvd Unit #: [id number] Loc: [address] [place] [address] Phys: Aki Mtz MD Acct: [id number] Dis Date: Status: ADM IN PHONE #: [phone] Exam Date: 11/27/2018 1503 FAX #: [phone] Reason: Right arm numbness EXAMS: CPT CODE: [id number] MRI BRAIN WO/W CONT 10708 INDICATION: Right arm numbness, tr ansient ischemic attack. COMPARISON: CT brain study dated 9. TECHNIQUE: -Pre and postinfusion multiplanar and multise quential MRI images of the brain were obtained. - Three-dimensional time of flight brain MR angiography of intracranial vessels is performed, and maximum intensity projection reformatted images are presented in multi ple three-dimensional rotational projections. - Two-dimensional time of flight neck MR angiography of extracranial arterial system was perform ed and reformatted images are presented in three-dimensional maximum inten sity rotational projections. Three-dimensional khhs-ju-cjisxh MR angiograp hy centered at the carotid bifurcations was included. IV con trast: 17 mL of MultiHance intravenously. FINDINGS: BRAIN MRI: There are scattered T2/FLAIR hyperintensities predomin antly in the in the bifrontal subcortical and periventricular white matter as well as brainstem compatible with mild chronic microvascular ischemic changes. No abnormality is present on the diffusion weighted images. No e len, hemorrhage, or extra axial collection is identified. There is no mas s or mass-effect. The ventricles and cortical sulci are prominent but appropriate for age. The basal cisterns are patent. On postin fusion images, no abnormal leptomeningeal or parenchymal enhancement noted . The skull base, paranasal sinuses, and orbits have normal appear ance. Bilateral pseudophakia. Visualized paranasal sinuses and ma stoid air cells are well-aerated bilaterally. BRAIN MRA: Persistent origin of the left posterior cerebral artery-anatomic variation. Mild to moderate areas of atherosclerotic irregularity along the bilateral cavernous and supraclinoid internal carotid arteries with mild to moderate focal stenosis. Bilateral anterior PAGE 1 Signed Report (CONTINUED) FAX: Aki Espitia MD [phone] [place]: St: ADM Name: TORI TRIPLETT [facility] : 1945 Age/S: 72/M [address] [place] [address] Blvd Unit #: [id number] Loc: G.33[address] [place] [address] Phys: Aki Mtz MD Acct: [id number] Dis Date: Status: ADM IN PHONE #: [phone] Exam Date: 07/2018 1509 FAX #: [phone] Reason: Right arm numb ness EXAMS: CPT CODE: [id number] MRI BRAIN WO/W CONT 70 553 <Continued> cerebral arteries, middle cerebral arteries and their branches are unremarkable. 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 Diminutive caliber of the vertebrobasilar system. The origins of the superior cerebellar arteries are unremarkable bilaterally. NECK MRA: Carotid circulation: Common origin of the right innominate and left common carotid arteries-anatomic variation. The cervical common carotid arteries have a normal course caliber and contour. Mmzz-fy-rygfrjcv atherosclerotic irregularity along the right carotid bulb extending into the proximal right internal and external carotid arteries without significant stenosis of the proximal right internal carotid artery. Mild atherosclerotic irregularity along the left common carotid bifurcation without hemodynamically significant stenosis as per the NASCET criteria. 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 Partial recanalization of the left distal V1 and V2 segments. The origin of the right vertebral artery and its cervical segment have a normal course caliber and contour in the neck. IMPRESSION: MRI BRAIN: 1. No acute infarct, acute intracranial hemorrhage. No abnormal enhancement 2. Mild chronic microvascular ischemic ch anges with age-appropriate parenchymal volume loss. MR angiogram brain and neck: 1. Atherosclerotic irregularity with mild to moderate focal stenosis PAGE 2 Signed Re port (CONTINUED) FAX: Aki Espitia MD [place]: St: ADM Name: TORI TRIPLETT [facility] Mayra medina : 1945 Age/S: 72/M [address] [place] [address] Unit #: [id number] Loc: [address] [address] Phys: Aki Mtz MD Acct: [id number] Dis Date: Status: ADM IN PHONE #: [phone] Exam Date: 11/27/2018 1509 FAX #: [phone] Reason: Right arm numbness EXAMS: CPT CODE: [id number] MRI BRAIN WO/W CONT 56714 < Continued> along the bilateral cavernous and supraclinoid internal carotid arteries. 2. 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 Partial recanalization in the left distal V1 and V2 segments. 3. Mild to moderate atherosclerotic irregularity along the right carotid bulb without hemodynamically significant stenosis of the proximal right internal carotid artery as per the NASCET criteria. All qualitative and quantitative assessments of carotid bifurcation and proximal internal carotid artery stenosis are made referencing the distal internal carotid artery (NASCET criteria). SL: HOSSEIN at 1910 Reported and signed by: Cynthia Hall M.D. CC: Aki Mtz MD Technologist: Jose Henderson, RT(R)(CT)(MR) Trnscrd Date/Time/By: 11/27/2018 (1909) : By: [email or web address] Orig Print D/T: S: 11/27/2018 (1912) PAGE 3 Signed Report - MRI BRAIN WO/W [id number] 19:10:00 FAX: Aki Espitia MD [phone] [place]: St: ADM Name: TORI SOMERS [facility] : 11/28/18 [birth year] Age/S: 72/M [address] [place] [address] Unit #: [id number] Loc: [address] [address] Phys: Aki Mtz MD Acct: [id number] Dis Date: Status: ADM IN PHONE #: [phone] Exam Date: 11/27/2018 1509 FAX #: [phone] Reason: Right arm numbness EXAMS: CPT CODE: [id number] MRI BRAIN WO/W CONT 06701 INDICATION: Right arm numbness, tr ansient ischemic attack. COMPARISON: CT brain study dated 9. TECHNIQUE: -Pre and postinfusion multiplanar and multise quential MRI images of the brain were obtained. - Three-dimensional time of flight brain MR angiography of intracranial vessels is performed, and maximum intensity projection reformatted images are presented in multi ple three-dimensional rotational projections. - Two-dimensional time of flight neck MR angiography of extracranial arterial system was perform ed and reformatted images are presented in three-dimensional maximum inten sity rotational projections. Three-dimensional efws-uo-psfhez MR angiograp hy centered at the carotid bifurcations was included. IV con trast: 17 mL of MultiHance intravenously. FINDINGS: BRAIN MRI: There are scattered T2/FLAIR hyperintensities predomin antly in the in the bifrontal subcortical and periventricular white matter as well as brainstem compatible with mild chronic microvascular ischemic changes. No abnormality is present on the diffusion weighted images. No e len, hemorrhage, or extra axial collection is identified. There is no mas s or mass-effect. The ventricles and cortical sulci are prominent but appropriate for age. The basal cisterns are patent. On postin fusion images, no abnormal leptomeningeal or parenchymal enhancement noted . The skull base, paranasal sinuses, and orbits have normal appear ance. Bilateral pseudophakia. Visualized paranasal sinuses and ma stoid air cells are well-aerated bilaterally. BRAIN MRA: Persistent origin of the left posterior cerebral artery-anatomic variation. Mild to moderate areas of atherosclerotic irregularity along the bilateral cavernous and supraclinoid internal carotid arteries with mild to moderate focal stenosis. Bilateral anterior PAGE 1 Signed Report (CONTINUED) FAX: Aki Espitia MD [phone] [place]: St: ADM Name: TRIPLETT MIAELVIABASIL [facility] : 1945 Age/S: 72/M [address] [place] [address] Blvd Unit #: [id number] Loc: [address] [address] Phys: Aki Mtz MD Acct: [id number] Dis Date: Status: ADM IN PHONE #: [phone] Exam Date: 07/2018 1507 FAX #: [phone] Reason: Right arm numb ness EXAMS: CPT CODE: [id number] MRI BRAIN WO/W CONT 70 553 <Continued> cerebral arteries, middle cerebral arteries and their branches are unremarkable. 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 Diminutive caliber of the vertebrobasilar system. The origins of the superior cerebellar arteries are unremarkable bilaterally. NECK MRA: Carotid circulation: Common origin of the right innominate and left common carotid arteries-anatomic variation. The cervical common carotid arteries have a normal course caliber and contour. Prcv-kq-xbdamiqp atherosclerotic irregularity along the right carotid bulb extending into the proximal right internal and external carotid arteries without significant stenosis of the proximal right internal carotid artery. Mild atherosclerotic irregularity along the left common carotid bifurcation without hemodynamically significant stenosis as per the NASCET criteria. 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 Partial recanalization of the left distal V1 and V2 segments. The origin of the right vertebral artery and its cervical segment have a normal course caliber and contour in the neck. IMPRESSION: MRI BRAIN: 1. No acute infarct, acute intracranial hemorrhage. No abnormal enhancement 2. Mild chronic microvascular ischemic ch anges with age-appropriate parenchymal volume loss. MR angiogram brain and neck: 1. Atherosclerotic irregularity with mild to moderate focal stenosis PAGE 2 Signed Re port (CONTINUED) FAX: Aki Espitia MD [place]: St: ADM Name: TORI GREGORY [facility] : 1945 Age/S: 72/M [address] [place] [address] Unit #: [id number] Loc: G.[address] [place] [address] Phys: Aki Mtz MD Acct: [id number] Dis Date: Status: ADM IN PHONE #: [phone] Exam Date: 11/27/2018 3461 FAX #: [phone] Reason: Right arm numbness EXAMS: CPT CODE: [id number] MRI BRAIN WO/W CONT 60914 < Continued> along the bilateral cavernous and supraclinoid internal carotid arteries. 2. 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 Partial recanalization in the left distal V1 and V2 segments. 3. Mild to moderate atherosclerotic irregularity along the right carotid bulb without hemodynamically significant stenosis of the proximal right internal carotid artery as per the NASCET criteria. All qualitative and quantitative assessments of carotid bifurcation and proximal internal carotid artery stenosis are made referencing the distal internal carotid artery (NASCET criteria). SL: HOSSEIN at 1910 Reported and signed by: Cynthia Hall M.D. CC: Aki Mtz MD Technologist: Jose Henderson RT(R)(CT)(MR) Trnscrd Date/Time/By: 11/27/2018 (1909) : By: [email or web address] Orig Print D/T: S: 11/27/2018 (1912) PAGE 3 Signed Report [id number] 17:14:00* Test Item Value Reference Range Comments GLUBED (test code=GLUBED) 105 MG/DL 70-110 Performed by certified gas station operator at [facility] [id number] 11:52:00* Test Item Value Reference Range Comments GLUBED (test code=GLUBED) 140 MG/DL 70-110 Performed by certified gas station operator at [facility] B-TYPE NATRIURETIC [id number] 09:28:00* Test Item Value Reference Range Comments B-TYPE NATRIURETIC PEPTIDE (test code=BNP) 827.3 PG/ML 0-100 [id number] 09:22:00* Test Item Value Reference Range Comments MAGNESIUM (test code=MAG) 1.90 mg/dL 1.8-2.4 THYROID STIMULATING [id number] 09:22:00* Test Item Value Reference Range Comments THYROID STIMULATING HORMONE (test code=TSH) 1.16 0.42-5.47 Results in yogesh-International Units/mL HGBA1C%2018-11-27 08:10:00* Test Item Value Reference Range Comments HGBA1C% (test code=HGBA1C%) 7.8 %A1C 4.8-6.0 [id number] 08:04:00* Test Item Value Reference Range Comments GLUBED (test code=GLUBED) 127 MG/DL 70-110 Performed by certified gas station operator at [facility] CBC W/AUTO [id number] 07:13:00* Test Item Value Reference Range Comments WHITE BLOOD CELL (test code=WBC) 12.44 x10 3/uL 4.5-11.0 RED BLOOD CELL (test code=RBC) 4.00 x10 6/uL 4.00-5.60 HEMOGLOBIN (test code=HGB) 10.6 g/dL 12.5-16.9 HEMATOCRIT (test code=HCT) 34.3 % 37.5-50.7 MEAN CELL VOLUME (test code=MCV) 85.8 fL 81.0-99.0 MEAN CELL HGB (test code=MCH) 26.5 pg 27.0-33.0 MEAN CELL HGB CONCETRATION (test code=MCHC) 30.9 g/dL 33.0-37.0 RED CELL DISTRIBUTION WIDTH CV (test code=RDW) 15.1 % 11.5-14.5 RED CELL DISTRIBUTION WIDTH SD (test code=RDW-SD) 47.3 fL 37.0-54.0 PLATELET COUNT (test code=PLT) 285 x10 3/uL 150-400 MEAN PLATELET VOLUME (test code=MPV) 10.2 fL 7.0-9.0 NEUTROPHIL % (test code=NT%) 66.2 % 56.0-77.0 IMMATURE GRANULOCYTE % (test code=IG%) 0.3 % 0.0-2.0 LYMPHOCYTE % (test code=LY%) 18.6 % 14.0-32.0 MONOCYTE % (test code=MO%) 7.8 % 4.8-9.0 EOSINOPHIL % (test code=EO%) 6.8 % 0.3-3.7 BASOPHIL % (test code=BA%) 0.3 % 0.0-2.0 NUCLEATED RBC % (test code=NRBC%) 0.0 % 0-0 NEUTROPHIL # (test code=NT#) 8.23 x10 3/uL 2.0-7.6 IMMATURE GRANULOCYTE # (test code=IG#) 0.04 x10 3/uL 0.00-0.03 LYMPHOCYTE # (test code=LY#) 2.31 x10 3/uL 1.0-3.8 MONOCYTE # (test code=MO#) 0.97 x10 3/uL 0.1-0.8 EOSINOPHIL # (test code=EO#) 0.85 x10 3/uL 0.0-0.2 BASOPHIL # (test code=BA#) 0.04 x10 3/uL 0.0-0.2 NUCLEATED RBC # (test code=NRBC#) 0.00 x10 3/uL 0.0-0.1 MANUAL DIFF REQUIRED (test code=MDIFF) NO [id number] 20:51:00* Test Item Value Reference Range Comments GLUBED (test code=GLUBED) 215 MG/DL 70-110 Performed by certified gas station operator at [facility] [id number] 12:29:00* Test Item Value Reference Range Comments GLUBED (test code=GLUBED) 140 MG/DL 70-110 Performed by certified gas station operator at [facility] [id number] 06:57:00* Test Item Value Reference Range Comments TROPONIN-I (test code=TROPI) 0.056 ng/mL 0.000-0.045 Negative: <=0.045 Positive: >=0.046 Correlation with serial results, other cardiac markers andclinical findings is necessary to determine the clinicalsignificance of this result. Results using different methodologies should not be comparedto one another as quantitative results may vary by method. COMMENTS: 3 troponins total (including troponin done in ED)LIPOPROTEIN LDL 2018-11-26 04:09:00* Test Item Value Reference Range Comments LIPOPROTEIN LDL (test code=LDL) 61 mg/dL 0-100 <100 [id number] NEAR OPTIMAL/ABOVE [id number] HIGH>UP=818 VERY HIGH*Guidelines provided by the National Cholesterol EducationProgram Adult Treatment Panel III [id number] 03:55:00* Test Item Value Reference Range Comments TROPONIN-I (test code=TROPI) 0.052 ng/mL 0.000-0.045 Negative: <=0.045 Positive: >=0.046 Correlation with serial results, other cardiac markers andclinical findings is necessary to determine the clinicalsignificance of this result. Results using different methodologies should not be comparedto one another as quantitative results may vary by method. COMMENTS: 3 troponins total (including troponin done in ED)- CT ABD PELVIS [id number] 03:04:00 Name: TORI TRIPLETT [facility] : 1945 Age/S: 72 / M [address] [place] [address] Unit #: [id number] Loc: NIMESH [place] [address] Phys: Av Danielle MD Acct: [id number] Dis Date: Status: ADM IN PHONE #: [phone] Exam Date: 11/26/2018 023 FAX #: [phone] Reason: nausea/vomiting, +UA, elevated WBC count EXAMS: CPT CODE: [id number] CT ABD PELVIS W/CONT 58863 PROCEDURE: CT abdomen and pelvis with contrast dated 11/26/2018 INDICATION: Nausea and vomiting. Elevated white count. COMPARISON: None. TECHNIQUE: A CT of the abdomen pelvis was performed using helical images from the thoracic outlet through the pubic symphysis with subsequent sagittal and coronal reconstruction. IV CONTRAST: 100 cc of Isovue-300 GI CONTRAST: 500 mL of dilute Omnipaque 240 solution. FINDINGS: SOLID ORGANS: No acute CT abnormalities of the liver, spleen, pancreas, adrenal glands or kidneys are detected. There is no CT evidence of acute renal collecting system obstruction or calcified renal collecting system stone. Nonspecific stranding is identified in the perinephric fat bilaterally. BILIARY: The gallbladder is normally distended. No significant biliary ductal dilatation is identified. BOWEL: No acute CT abnormalities of the bowel are identified. No small bowel dilatation is present to suggest obstruction. The appendix is identified and is not acutely inflamed. Scattered colonic diverticula are identified. There is no CT evidence of acute diverticulitis or inflammatory colonic wall thickening. PERITONEUM: There is no evidence of free intraperitoneal air or significant free intraperitoneal fluid. RETROPERITONEUM: The abdominal aorta is normal in caliber. There is no evidence of retroperitoneal mass or adenopathy. PELVIS: The prostate is e nlarged (6.5 x 6.2 x 5.5 cm) and results in a lobulated filling defect at the bladder base. The bladder is distended and the bladder wall is thicke maurizio for the degree of bladder distention. Postoperative changes are noted in the left inguinal region with evidence of a recurrent fat-containing l eft inguinal hernia. No enlarged pelvic lymph nodes are noted. LOWER CHEST: A small left pleural effusion is identified. The lung ba ses appear clear of acute disease. PAGE 1 Signed Rep ort (CONTINUED) Name: TORI TRIPLETT [facility] : 1945 Age/S: 72 / M [address] Unit #: [id number] Loc: [place], [place] [address] Phys: Av Danielle MD Acct: [id number] Dis Date: Status: ADM IN PHONE #: [phone] Exam Date: 11/26/2018235 FAX #: [phone] Reason: nausea/vomiting, +UA, elevated WBC count EXAMS: CPT CODE: [id number] CT ABD PELVIS W/CONT 30382 <Continued> ADDITIONAL FINDINGS: None. IMPRESSION: 1. Prostatic enlargement. Bladder distention with mild diffuse bladder wall thickening likely indicate outlet obstruction with bladder wall hypertrophy. Acute cystitis would be included in differential diagnosis. Correlation with urinalysis is recommended. 2. Diverticulosis without CT evidence of acute diverticulitis. 3. Small left pleural effusion. SL: 131 at 0304 Reported and signed by: Daniele Baxter M.D. CC: Av Danielle MD Technologist:RT Bhavya(R) CTDI: DLP: Trnscb Date/Time: 11/26/2018 (303) Marlin Orig Print D/T: S: 11/26/2018 (307) CTDI: DLP: PAGE 2 Signed Report - CT ABD PELVIS [id number] 03:04:00 Name: TORI GREGORY [facility] : 1945 Age/S: 72 / M [address] [place] [address] Blvd Unit #: [id number] Loc: NIMESH [place] [address] Phys: Av Danielle MD Acct: [id number] Dis Date: Status: ADM IN PHONE #: [phone] Exam Date: 11/26/2018235 FAX #: [phone] Reason: nausea/vomiting, +UA, elevated WBC count EXAMS: CPT CODE: [id number] CT ABD PELVIS W/CONT 07641 PROCEDURE: CT abdomen and pelvis with contrast dated 11/26/2018 INDICATION: Nausea and vomiting. Elevated white count. COMPARISON: None. TECHNIQUE: A CT of the abdomen pelvis was performed using helical images from the thoracic outlet through the pubic symphysis with subsequent sagittal and coronal reconstruction. IV CONTRAST: 100 cc of Isovue-300 GI CONTRAST: 500 mL of dilute Omnipaque 240 solution. FINDINGS: SOLID ORGANS: No acute CT abnormalities of the liver, spleen, pancreas, adrenal glands or kidneys are detected. There is no CT evidence of acute renal collecting system obstruction or calcified renal collecting system stone. Nonspecific stranding is identified in the perinephric fat bilaterally. BILIARY: The gallbladder is normally distended. No significant biliary ductal dilatation is identified. BOWEL: No acute CT abnormalities of the bowel are identified. No small bowel dilatation is present to suggest obstruction. The appendix is identified and is not acutely inflamed. Scattered colonic diverticula are identified. There is no CT evidence of acute diverticulitis or inflammatory colonic wall thickening. PERITONEUM: There is no evidence of free intraperitoneal air or significant free intraperitoneal fluid. RETROPERITONEUM: The abdominal aorta is normal in caliber. There is no evidence of retroperitoneal mass or adenopathy. PELVIS: The prostate is e nlarged (6.5 x 6.2 x 5.5 cm) and results in a lobulated filling defect at the bladder base. The bladder is distended and the bladder wall is thicke maurizio for the degree of bladder distention. Postoperative changes are noted in the left inguinal region with evidence of a recurrent fat-containing l eft inguinal hernia. No enlarged pelvic lymph nodes are noted. LOWER CHEST: A small left pleural effusion is identified. The lung ba ses appear clear of acute disease. PAGE 1 Signed Rep ort (CONTINUED) Name: TORI GREGORY [facility] [place] : 1945 Age/S: 72 / M [address] Unit #: [id number] Loc: [place], [place] [address] Phys: Av Danielle MD Acct: [id number] Dis Date: Status: ADM IN PHONE #: [phone] Exam Date: 11/26/2018 0236 FAX #: [phone] Reason: nausea/vomiting, +UA, elevated WBC count EXAMS: CPT CODE: [id number] CT ABD PELVIS W/CONT 91741 <Continued> ADDITIONAL FINDINGS: None. IMPRESSION: 1. Prostatic enlargement. Bladder distention with mild diffuse bladder wall thickening likely indicate outlet obstruction with bladder wall hypertrophy. Acute cystitis would be included in differential diagnosis. Correlation with urinalysis is recommended. 2. Diverticulosis without CT evidence of acute diverticulitis. 3. Small left pleural effusion. SL: 131 at 0304 Reported and signed by: Daniele Baxter M.D. CC: Av Danielle MD Technologist:RT Bhavya(R) CTDI: DLP: Trnscb Date/Time: 11/26/2018 (303) Marlin Orig Print D/T: S: 11/26/2018 (307) CTDI: DLP: PAGE 2 Signed Report PROTHROMBIN [id number] 01:27:00* Test Item Value Reference Range Comments PROTHROMBIN TIME PATIENT (test code=PTP) 13.4 SECONDS 9.3-12.9 INTERNATIONAL NORMAL RATIO (test code=INR) 1.2 0.8-1.2 TARGET INR BY INDICATION Indication INR1. Prophylaxis of venous thrombosis 2.0 - 3.0 (orthopedic surgery), Prophylaxis of venous thrombosis (other than high-risk surgery), Treatment of Deep Vein Thrombosis/Pulmonary Embolism, Prevention of systemic embolism - Tissue heart valves, Acute Myocardial Infarction (to prevent systemic embolism), Valvular heart disease, Atrial Fibrillation, Bileaflet mechanical valve in aortic position.2. Mechanical prosthetic valves (high risk), 2.5 - 3.5 Presence of Lupus Anticoagulant or Antiphospholipid Antibodies, Prevention of systemic embolism - Acute Myocardial Infarction (to prevent recurrent infarct). THROMBOPLASTIN TIME [id number] 01:27:00* Test Item Value Reference Range Comments THROMBOPLASTIN TIME PARTIAL (test code=PTT) 29.8 Seconds 25.0-39.5 Therapeutic Range: 50.4 - 88.3 Seconds Effective 11/12/2018 BASIC METABOLIC [id number] 01:14:00* Test Item Value Reference Range Comments SODIUM (test code=NA) 137 mEq/L 134-147 POTASSIUM (test code=K) 3.6 mEq/L 3.4-5.0 CHLORIDE (test code=CL) 106 mEq/L 100-108 CARBON DIOXIDE (test code=CO2) 24 mEq/L 21-33 ANION GAP (test code=GAP) 11 0-20 GLUCOSE (test code=GLU) 137 mg/dL 70-110 BLOOD UREA NITROGEN (test code=BUN) 18 mg/dL 7-18 GLOMERULAR FILTRATION RATE (test code=GFR) 82.9 70-80 Units of measure=ml/min/1.73 m2 CREATININE (test code=CREAT) 0.9 mg/dL 0.6-1.3 CALCIUM (test code=CA) 8.9 mg/dL 8.0-10.5 HEPATIC FUNCTION [id number] 01:14:00* Test Item Value Reference Range Comments TOTAL PROTEIN (test code=PROT) 7.6 g/dL 6.4-8.2 ALBUMIN (test code=ALB) 3.40 g/dL 3.4-5.0 BILIRUBIN TOTAL (test code=BILT) 0.30 mg/dL 0.0-1.0 BILIRUBIN DIRECT (test code=BILD) 0.10 MG/DL 0.0-0.30 BILIRUBIN INDIRECT (test code=BILIND) 0.20 MG/DL SGOT/AST (test code=AST) 13 IUnit/L 15-37 SGPT/ALT (test code=ALT) 13 IUnit/L 15-65 ALKALINE PHOSPHATASE TOTAL (test code=ALKP) 68 IUnit/L 20-125 [id number] 01:14:00* Test Item Value Reference Range Comments LIPASE (test code=LIP) 135 IUnit/L 73-393 [id number] 01:14:00* Test Item Value Reference Range Comments TROPONIN-I (test code=TROPI) 0.043 ng/mL 0.000-0.045 Negative: <=0.045 Positive: >=0.046 Correlation with serial results, other cardiac markers andclinical findings is necessary to determine the clinicalsignificance of this result. Results using different methodologies should not be comparedto one another as quantitative results may vary by method. URINALYSIS [id number] 01:11:00* Test Item Value Reference Range Comments UA COLOR (test code=COLU) YELLOW YEL/STRAW UA APPEARANCE (test code=APPU) CLEAR CLEAR UA GLUCOSE DIPSTICK (test code=DGLUU) NEGATIVE NEGATIVE UA BILIRUBIN DIPSTICK (test code=BILU) NEGATIVE NEGATIVE UA KETONE DIPSTICK (test code=KETU) NEGATIVE NEGATIVE UA SPECIFIC GRAVITY (test code=SGU) 1.009 1.005-1.030 UA BLOOD DIPSTICK (test code=BO) 2+ NEGATIVE UA PH DIPSTICK (test code=MARIBEL) 7.0 5.0-7.0 UA PROTEIN DIPSTICK (test code=PROU) NEGATIVE NEGATIVE UA UROBILINIOGEN DIPSTICK (test code=URO) 0.2 mg/dL 0.2-1.0 UA NITRITE DIPSTICK (test code=JAMEEL) NEGATIVE NEGATIVE UA LEUKOCYTE ESTERASE DIPSTICK (test code=LEUU) 3+ NEGATIVE UA WBC (test code=WBCU) 21-50 WBC/HPF 0-3 UA RBC (test code=RBCU) >50 RBC/HPF 0-3 UA BACTERIA (test code=BACU) NONE SEEN /HPF NONE SEEN UA SQUAMOUS CELLS (test code=SQU) 0-5 /HPF NONE SEEN CBC W/O [id number] 01:01:00* Test Item Value Reference Range Comments WHITE BLOOD CELL (test code=WBC) 13.66 x10 3/uL 4.5-11.0 RED BLOOD CELL (test code=RBC) 4.13 x10 6/uL 4.00-5.60 HEMOGLOBIN (test code=HGB) 11.1 g/dL 12.5-16.9 HEMATOCRIT (test code=HCT) 34.4 % 37.5-50.7 MEAN CELL VOLUME (test code=MCV) 83.3 fL 81.0-99.0 MEAN CELL HGB (test code=MCH) 26.9 pg 27.0-33.0 MEAN CELL HGB CONCETRATION (test code=MCHC) 32.3 g/dL 33.0-37.0 RED CELL DISTRIBUTION WIDTH CV (test code=RDW) 15.1 % 11.5-14.5 RED CELL DISTRIBUTION WIDTH SD (test code=RDW-SD) 45.7 fL 37.0-54.0 PLATELET COUNT (test code=PLT) 297 x10 3/uL 150-400 MEAN PLATELET VOLUME (test code=MPV) 10.1 fL 7.0-9.0 - XR CHEST 1 [id number] 00:37:00 FAX: Av Danielle MD [phone] [place]: St: REG Name: TORI WILSON [facility] : 11/28/18 [birth year] Age/S: 72/M [address] [place] [address] Blvd Unit #: [id number] Loc: [address] [address] Phys: Av Danielle MD Acct: [id number] Dis Date: Status: REG ER PHONE #: [phone] Exam Date: 11/26/2018 0022 FAX #: [phone] Reason: stroke EXAMS: CPT CODE: [id number] XR CHEST 1 V 34458 Chest, single view dated 11/26/2018. HISTORY: Stroke. Nausea and vomiting. Comparison is made to a prior study dated 10/01/2014. The patient is status post median sternotomy. The heart is enlarged. Atherosclerotic calcification is identified in the aortic arch. Ill-defined asymmetric opacity is austin ntified in the periphery of the right midlung. The left lung appears erna r of acute disease. The pulmonary vasculature is normal in caliber. Blun ting of the left costophrenic angle suggests presence of a small left pleu ral fluid collection. IMPRESSION: 1. Vague opacit y in the periphery of the right midlung. Correlation with clinical sign s/symptoms of pneumonia is recommended. 2. Small left pleural effusion. 3. Cardiomegaly without evidence of acute congestive heart failure. SL: 131 at 0037 Reported and signed by: Daniele Baxter M.D. CC: Av Danielle MD Technologist: Claudio Zelaya, RT(R) Trnscrd Date/Time/By: 11/26/2018 (0037) : By: KortneyDMM Orig Print D/T: S: 11/26/2018 (0040) PAGE 1 Signed Report - XR CHEST 1 [id number] 00:37:00 FAX: Av Danielle MD [phone] [place]: St: ADM Name: TORI SOMERS [facility] : 11/28/18 [birth year] Age/S: 72/M [address] [place] [address] Blvd Unit #: [id number] Loc: [address] [address] Phys: Av Danielle MD Acct: [id number] Dis Date: Status: ADM IN PHONE #: [phone] Exam Date: 11/26/2018 0022 FAX #: [phone] Reason: stroke EXAMS: CPT CODE: [id number] XR CHEST 1 V 05670 Chest, single view dated 11/26/2018. HISTORY: Stroke. Nausea and vomiting. Comparison is made to a prior study dated 10/01/2014. The patient is status post median sternotomy. The heart is enlarged. Atherosclerotic calcification is identified in the aortic arch. Ill-defined asymmetric opacity is austin ntified in the periphery of the right midlung. The left lung appears erna r of acute disease. The pulmonary vasculature is normal in caliber. Blun ting of the left costophrenic angle suggests presence of a small left pleu ral fluid collection. IMPRESSION: 1. Vague opacit y in the periphery of the right midlung. Correlation with clinical sign s/symptoms of pneumonia is recommended. 2. Small left pleural effusion. 3. Cardiomegaly without evidence of acute congestive heart failure. SL: 131 at 0037 Reported and signed by: Daniele Baxter M.D. CC: Av Danielle MD Technologist: RT Myron(R) Trnscrd Date/Time/By: 11/26/2018 (0037) : By: Marlin Orig Print D/T: S: 11/26/2018 (0040) PAGE 1 Signed Report - CT HEAD/BRAIN W/O [id number] 00:34:00 Name: TORI TRIPLETT [facility] : 1945 Age/S: 72 / M [address] [place] [address] Blvd Unit #: [id number] Loc: [place] [address] Phys: Destin Danielle MD Acct: [id number] Di s Date: Status: REG ER PHONE #: Exam Date: 11/26/2018 0010 FAX #: [phone] Reason: nausea/vomiting, dizziness EXAMS: CPT CODE: [id number] CT HEAD/BRAIN W/O CONT 50033 CT head without contrast . CLINICAL HISTORY: Nausea vomiting. Dizziness. OK HNIQUE: Axial noncontrast CT images through the head were obtained. This exam was performed according to our departmental dose optimization program which includes automated exposure control, adjustment of the mA an d/or kV according to patient size and/or use of iterative reconstruction t echnique. Coronal and sagittal reformats were provided. DLP:419.70 COMPARISON: 10/01/2014 FINDINGS: There is no hemorrhage, extra-axial collection, mass, hydrocephalus, or midline shift. Mild generalized cerebral volume loss is present. Intracranial vascular calcifications are present. Minimal mucosal thickening is noted al rober the bilateral ethmoid sinuses.The remaining visualized paranasal sinus es and mastoid air cells are well aerated. The calvarium and skull base ar e intact. IMPRESSION: No acute intracranial ab normality. If concern for acute pathology persists consider further evaluation with MRI. Electronicall y Signed by Jin Weir on 11/26/2018 at 0034 Repo rted and signed by: Diego Weir M.D. CC: Av Danielle MD Technologist:Faisal Harling, RT(R) CTDI: DLP: Trnscb Date/Time: 11/26/2018 (003) [email or web address] Orig Print D/T: S: 11/26/2018 (37) CTDI: DLP: PAGE 1 Signed Report - CT HEAD/BRAIN W/O [id number] 00:34:00 Name: TORI GREGORY [facility] : 1945 Age/S: 72 / M [address] [place], [place] [address]vd Unit #: [id number] Loc: [place] [address] Phys: Av Danielle MD Acct: [id number] Dis Date: Status: ADM IN PHONE #: [phone] Exam Date: 11/26/2018 001 FAX #: [phone] Reason: nausea/vomiting, dizziness EXAMS: CPT CODE: [id number] CT HEAD/BRAIN W/O CONT 06102 CT head without contrast . CLINICAL HISTORY: Nausea vomiting. Dizziness. TECHNIQUE: Axial noncontrast CT images through the head were obtained. This exam was performed according to our departmental dose optimization program which includes automated exposure control, adjustment of the mA and/or kV according to patient size and/or use of iterative reconstruction technique. Coronal and sagittal reformats were provided. DLP:419.70 COMPARISON: 10/01/2014 FINDINGS: There is no hemorrhage, extra-axial collection, mass, hydrocephalus, or midline shift. Mild generalized cerebral volume loss is present. Intracranial vascular calcifications are present. Minimal mucosal thickening is noted along the bilateral ethmoid sinuses.The remaining visualized paranasal sinuses and mastoid air cells are well aerated. The calvarium and skull base are intact. IMPRESSION: No acute intracranial abnormality. If concern for acute pathology persists consider further evaluation with MRI. at 0034 Reported and signed by: Diego Weir M.D. CC: Av Danielle MD Technologist:RT Angelic(R) CTDI: DLP: Trnscb Date/Time: 11/26/2018 (003) [email or web address] Orig Print D/T: S: 11/26/2018 (0038) CTDI: DLP: PAGE 1 Signed Report [id number] 20:59:00* Test Item Value Reference Range Comments GLUBED (test code=GLUBED) 89 MG/DL 70-110 Performed by certified gas station operator at [facility] [id number] 08:03:00* Test Item Value Reference Range Comments MAGNESIUM (test code=MAG) 2.40 mg/dL 1.8-2.4 [id number] 06:23:00* Test Item Value Reference Range Comments GLUBED (test code=GLUBED) 128 MG/DL 70-110 Performed by certified gas station operator at [facility] [id number] 21:04:00* Test Item Value Reference Range Comments GLUBED (test code=GLUBED) 137 MG/DL 70-110 Performed by certified gas station operator at [facility] [id number] 16:29:00* Test Item Value Reference Range Comments GLUBED (test code=GLUBED) 113 MG/DL 70-110 Performed by certified gas station operator at [facility] [id number] 11:05:00* Test Item Value Reference Range Comments GLUBED (test code=GLUBED) 162 MG/DL 70-110 Performed by certified gas station operator at [facility] [id number] 06:16:00* Test Item Value Reference Range Comments GLUBED (test code=GLUBED) 67 MG/DL 70-110 Performed by certified gas station operator at [facility] [id number] 20:55:00* Test Item Value Reference Range Comments GLUBED (test code=GLUBED) 164 MG/DL 70-110 Performed by certified gas station operator at [facility] [id number] 16:19:00* Test Item Value Reference Range Comments GLUBED (test code=GLUBED) 79 MG/DL 70-110 Performed by certified gas station operator at [facility] [id number] 11:39:00* Test Item Value Reference Range Comments GLUBED (test code=GLUBED) 116 MG/DL 70-110 Performed by certified gas station operator at [facility] COMPREHENSIVE METABOLIC [id number] 08:10:00* Test Item Value Reference Range Comments SODIUM (test code=NA) 139 mEq/L 134-147 POTASSIUM (test code=K) 3.9 mEq/L 3.4-5.0 CHLORIDE (test code=CL) 104 mEq/L 100-108 CARBON DIOXIDE (test code=CO2) 32 mEq/L 21-33 ANION GAP (test code=GAP) 7 0-20 GLUCOSE (test code=GLU) 59 mg/dL 70-110 BLOOD UREA NITROGEN (test code=BUN) 17 mg/dL 7-18 GLOMERULAR FILTRATION RATE (test code=GFR) 82.9 70-80 Units of measure=ml/min/1.73 m2 CREATININE (test code=CREAT) 0.9 mg/dL 0.6-1.3 TOTAL PROTEIN (test code=PROT) 6.6 g/dL 6.4-8.2 ALBUMIN (test code=ALB) 2.60 g/dL 3.4-5.0 CALCIUM (test code=CA) 8.8 mg/dL 8.0-10.5 BILIRUBIN TOTAL (test code=BILT) 0.40 mg/dL 0.0-1.0 SGOT/AST (test code=AST) 13 IUnit/L 15-37 SGPT/ALT (test code=ALT) 21 IUnit/L 15-65 ALKALINE PHOSPHATASE TOTAL (test code=ALKP) 85 IUnit/L 20-125 CBC W/AUTO [id number] 07:59:00* Test Item Value Reference Range Comments WHITE BLOOD CELL (test code=WBC) 8.29 x10 3/uL 4.5-11.0 RED BLOOD CELL (test code=RBC) 3.35 x10 6/uL 4.00-5.60 HEMOGLOBIN (test code=HGB) 8.9 g/dL 12.5-16.9 HEMATOCRIT (test code=HCT) 30.1 % 37.5-50.7 MEAN CELL VOLUME (test code=MCV) 89.9 fL 81.0-99.0 MEAN CELL HGB (test code=MCH) 26.6 pg 27.0-33.0 MEAN CELL HGB CONCETRATION (test code=MCHC) 29.6 g/dL 33.0-37.0 RED CELL DISTRIBUTION WIDTH CV (test code=RDW) 15.9 % 11.5-14.5 RED CELL DISTRIBUTION WIDTH SD (test code=RDW-SD) 52.0 fL 37.0-54.0 PLATELET COUNT (test code=PLT) 458 x10 3/uL 150-400 MEAN PLATELET VOLUME (test code=MPV) 9.5 fL 7.0-9.0 NEUTROPHIL % (test code=NT%) 61.2 % 56.0-77.0 IMMATURE GRANULOCYTE % (test code=IG%) 0.2 % 0.0-2.0 LYMPHOCYTE % (test code=LY%) 24.6 % 14.0-32.0 MONOCYTE % (test code=MO%) 7.8 % 4.8-9.0 EOSINOPHIL % (test code=EO%) 5.8 % 0.3-3.7 BASOPHIL % (test code=BA%) 0.4 % 0.0-2.0 NUCLEATED RBC % (test code=NRBC%) 0.0 % 0-0 NEUTROPHIL # (test code=NT#) 5.07 x10 3/uL 2.0-7.6 IMMATURE GRANULOCYTE # (test code=IG#) 0.02 x10 3/uL 0.00-0.03 LYMPHOCYTE # (test code=LY#) 2.04 x10 3/uL 1.0-3.8 MONOCYTE # (test code=MO#) 0.65 x10 3/uL 0.1-0.8 EOSINOPHIL # (test code=EO#) 0.48 x10 3/uL 0.0-0.2 BASOPHIL # (test code=BA#) 0.03 x10 3/uL 0.0-0.2 NUCLEATED RBC # (test code=NRBC#) 0.00 x10 3/uL 0.0-0.1 MANUAL DIFF REQUIRED (test code=MDIFF) NO [id number] 05:58:00* Test Item Value Reference Range Comments GLUBED (test code=GLUBED) 71 MG/DL 70-110 Performed by certified gas station operator at [facility] [id number] 19:17:00* Test Item Value Reference Range Comments GLUBED (test code=GLUBED) 150 MG/DL 70-110 Performed by certified gas station operator at [facility] [id number] 16:47:00* Test Item Value Reference Range Comments GLUBED (test code=GLUBED) 202 MG/DL 70-110 Performed by certified gas station operator at [facility] [id number] 16:47:00* Test Item Value Reference Range Comments GLUBED (test code=GLUBED) 88 MG/DL 70-110 Performed by certified gas station operator at [facility] [id number] 08:36:00* Test Item Value Reference Range Comments GLUBED (test code=GLUBED) 103 MG/DL 70-110 Performed by certified gas station operator at [facility] [id number] 06:48:00* Test Item Value Reference Range Comments GLUBED (test code=GLUBED) 60 MG/DL 70-110 Performed by certified gas station operator at [facility] [id number] 19:57:00* Test Item Value Reference Range Comments GLUBED (test code=GLUBED) 267 MG/DL 70-110 Performed by certified gas station operator at [facility] [id number] 19:57:00* Test Item Value Reference Range Comments GLUBED (test code=GLUBED) 95 MG/DL 70-110 Performed by certified gas station operator at [facility] [id number] 19:57:00* Test Item Value Reference Range Comments GLUBED (test code=GLUBED) 107 MG/DL 70-110 Performed by certified gas station operator at [facility] [id number] 07:20:00* Test Item Value Reference Range Comments GLUBED (test code=GLUBED) 75 MG/DL 70-110 Performed by certified gas station operator at [facility] [id number] 20:40:00* Test Item Value Reference Range Comments GLUBED (test code=GLUBED) 101 MG/DL 70-110 Performed by certified gas station operator at [facility] [id number] 17:32:00* Test Item Value Reference Range Comments GLUBED (test code=GLUBED) 103 MG/DL 70-110 Performed by certified gas station operator at [facility] [id number] 11:35:00* Test Item Value Reference Range Comments GLUBED (test code=GLUBED) 83 MG/DL 70-110 Performed by certified gas station operator at [facility] [id number] 06:46:00* Test Item Value Reference Range Comments GLUBED (test code=GLUBED) 71 MG/DL 70-110 Performed by certified gas station operator at [facility] [id number] 20:44:00* Test Item Value Reference Range Comments GLUBED (test code=GLUBED) 88 MG/DL 70-110 Performed by certified gas station operator at [facility] [id number] 16:11:00* Test Item Value Reference Range Comments GLUBED (test code=GLUBED) 154 MG/DL 70-110 Performed by certified gas station operator at [facility] [id number] 11:36:00* Test Item Value Reference Range Comments GLUBED (test code=GLUBED) 82 MG/DL 70-110 Performed by certified gas station operator at [facility] [id number] 05:52:00* Test Item Value Reference Range Comments GLUBED (test code=GLUBED) 98 MG/DL 70-110 Performed by certified gas station operator at [facility] [id number] 20:10:00* Test Item Value Reference Range Comments GLUBED (test code=GLUBED) 125 MG/DL 70-110 Performed by certified gas station operator at [facility] [id number] 16:49:00* Test Item Value Reference Range Comments GLUBED (test code=GLUBED) 190 MG/DL 70-110 Performed by certified gas station operator at [facility] - XR CHEST 2 [id number] 11:57:00 FAX: Claudio Messer [phone] [place]: St: ADM Name: Arsh PIERRESKIP REDDLaryLALOAbel [facility] : [birth year] Age/S: 72/M [address] [place] [address] Unit #: [id number] Loc: [address] [address] Phys: Claudio Mendoza MD Acct: [id number] Dis Date: Status: ADM IN PHONE #: [phone] Exam Date: 09/04/2018 1126 FAX #: [phone] Reason: FOLLOW PLEURAL EFFUSION (REASSESS) EXAMS: CPT CODE: [id number] XR CHEST 2 V 28813 Clinical Indication: Follow-up on pleural effusion; Comparison: Single view chest radiograph from . FINDINGS: The PA and lateral chest radiographs shows normal lung volumes with no significant interval change. There is a moderate left-sided pleural effusion, with expected underlying patchy and reticular airspace opacities also noted. Few reticular airs pace opacities are also seen in the right lung base. There is no radiogra phic evidence of pneumothorax. The heart size and pulmonary vasculature are unchanged. Poststernotomy changes are visualized. The tr achea is midline. There are no acute osseous abnormalities noted. IMPRESSION: 1. No significant interval paula ge. Moderate left-sided pleural effusion with bibasilar airspace opacit ies, which could relate to atelectatic foci or infiltrates. 2. Stable cardiomegaly. SL: [id number] E lectronically Signed by Marcos Fatima on 09/04/2018 at 1157 Reported and signed by: Rj Fatima D.O. CC: Claudio Mendoza MD Technologist: RT Glenys(R) Trnscrd Date/Time/By: 09/04/2018 (3384) : By: [email or web address] Orig Print D/T: S: 09/04/2018 (1200) PAGE 1 Signed Report [id number] 11:20:00* Test Item Value Reference Range Comments GLUBED (test code=GLUBED) 133 MG/DL 70-110 Performed by certified gas station operator at [facility] [id number] 06:15:00* Test Item Value Reference Range Comments GLUBED (test code=GLUBED) 117 MG/DL 70-110 Performed by certified gas station operator at [facility] [id number] 19:53:00* Test Item Value Reference Range Comments GLUBED (test code=GLUBED) 150 MG/DL 70-110 Performed by certified gas station operator at [facility] [id number] 15:58:00* Test Item Value Reference Range Comments GLUBED (test code=GLUBED) 151 MG/DL 70-110 Performed by certified gas station operator at [facility] VITAMIN D 1,87-[id number] 11:20:00* Test Item Value Reference Range Comments VITAMIN D 1,25-DIHYDROXY (test pfqe=DGHY717) 14.2 pg/mL 19.9-79.3 Performed At: [facility] [id number] [place], [place] [id number] Sanjai MD Ph:[phone] [id number] 10:57:00* Test Item Value Reference Range Comments GLUBED (test code=GLUBED) 178 MG/DL 70-110 Performed by certified gas station operator at [facility] [id number] 10:57:00* Test Item Value Reference Range Comments GLUBED (test code=GLUBED) 118 MG/DL 70-110 Performed by certified gas station operator at [facility] [id number] 19:57:00* Test Item Value Reference Range Comments GLUBED (test code=GLUBED) 182 MG/DL 70-110 Performed by certified gas station operator at [facility] [id number] 17:25:00* Test Item Value Reference Range Comments GLUBED (test code=GLUBED) 171 MG/DL 70-110 Performed by certified gas station operator at [facility] [id number] 11:32:00* Test Item Value Reference Range Comments GLUBED (test code=GLUBED) 209 MG/DL 70-110 Performed by certified gas station operator at [facility] [id number] 06:36:00* Test Item Value Reference Range Comments GLUBED (test code=GLUBED) 111 MG/DL 70-110 Performed by certified gas station operator at [facility] [id number] 20:17:00* Test Item Value Reference Range Comments GLUBED (test code=GLUBED) 242 MG/DL 70-110 Performed by certified gas station operator at [facility] [id number] 16:46:00* Test Item Value Reference Range Comments GLUBED (test code=GLUBED) 281 MG/DL 70-110 Performed by certified gas station operator at [facility] [id number] 11:23:00* Test Item Value Reference Range Comments GLUBED (test code=GLUBED) 207 MG/DL 70-110 Performed by certified gas station operator at [facility] [id number] 07:14:00* Test Item Value Reference Range Comments GLUBED (test code=GLUBED) 160 MG/DL 70-110 Performed by certified gas station operator at [facility] [id number] 05:58:00* Test Item Value Reference Range Comments GLUBED (test code=GLUBED) 162 MG/DL 70-110 Performed by certified gas station operator at [facility] [id number] 21:19:00* Test Item Value Reference Range Comments GLUBED (test code=GLUBED) 197 MG/DL 70-110 Performed by certified gas station operator at [facility] BASIC METABOLIC [id number] 17:01:00* Test Item Value Reference Range Comments SODIUM (test code=NA) 137 mEq/L 134-147 POTASSIUM (test code=K) 3.6 mEq/L 3.4-5.0 CHLORIDE (test code=CL) 101 mEq/L 100-108 CARBON DIOXIDE (test code=CO2) 30 mEq/L 21-33 ANION GAP (test code=GAP) 10 0-20 GLUCOSE (test code=GLU) 258 mg/dL 70-110 BLOOD UREA NITROGEN (test code=BUN) 25 mg/dL 7-18 GLOMERULAR FILTRATION RATE (test code=GFR) 65.8 70-80 Units of measure=ml/min/1.73 m2 CREATININE (test code=CREAT) 1.1 mg/dL 0.6-1.3 CALCIUM (test code=CA) 8.8 mg/dL 8.0-10.5 COMPREHENSIVE METABOLIC [id number] 17:01:00* Test Item Value Reference Range Comments TOTAL PROTEIN (test code=PROT) 6.3 g/dL 6.4-8.2 ALBUMIN (test code=ALB) 2.50 g/dL 3.4-5.0 BILIRUBIN TOTAL (test code=BILT) 0.30 mg/dL 0.0-1.0 SGOT/AST (test code=AST) 17 IUnit/L 15-37 SGPT/ALT (test code=ALT) 54 IUnit/L 15-65 ALKALINE PHOSPHATASE TOTAL (test code=ALKP) 78 IUnit/L 20-125 BASIC METABOLIC [id number] 16:59:00* Test Item Value Reference Range Comments SODIUM (test code=NA) 137 mEq/L 134-147 POTASSIUM (test code=K) 3.6 mEq/L 3.4-5.0 CHLORIDE (test code=CL) 101 mEq/L 100-108 CARBON DIOXIDE (test code=CO2) 30 mEq/L 21-33 ANION GAP (test code=GAP) 10 0-20 GLUCOSE (test code=GLU) 258 mg/dL 70-110 BLOOD UREA NITROGEN (test code=BUN) 25 mg/dL 7-18 GLOMERULAR FILTRATION RATE (test code=GFR) 65.8 70-80 Units of measure=ml/min/1.73 m2 CREATININE (test code=CREAT) 1.1 mg/dL 0.6-1.3 CALCIUM (test code=CA) 8.8 mg/dL 8.0-10.5 COMPREHENSIVE METABOLIC [id number] 16:59:00* Test Item Value Reference Range Comments TOTAL PROTEIN (test code=PROT) g/dL 6.4-8.2 ALBUMIN (test code=ALB) 2.50 g/dL 3.4-5.0 BILIRUBIN TOTAL (test code=BILT) mg/dL 0.0-1.0 SGOT/AST (test code=AST) 17 IUnit/L 15-37 SGPT/ALT (test code=ALT) 54 IUnit/L 15-65 ALKALINE PHOSPHATASE TOTAL (test code=ALKP) IUnit/L 20-125 [id number] 16:38:00* Test Item Value Reference Range Comments GLUBED (test code=GLUBED) 236 MG/DL 70-110 Performed by certified gas station operator at [facility] [id number] 12:24:00* Test Item Value Reference Range Comments GLUBED (test code=GLUBED) 207 MG/DL 70-110 Performed by certified gas station operator at [facility] [id number] 06:23:00* Test Item Value Reference Range Comments GLUBED (test code=GLUBED) 176 MG/DL 70-110 Performed by certified gas station operator at [facility] [id number] 21:12:00* Test Item Value Reference Range Comments GLUBED (test code=GLUBED) 235 MG/DL 70-110 Performed by certified gas station operator at [facility] [id number] 16:46:00* Test Item Value Reference Range Comments GLUBED (test code=GLUBED) 312 MG/DL 70-110 Performed by certified gas station operator at [facility] [id number] 12:28:00* Test Item Value Reference Range Comments GLUBED (test code=GLUBED) 230 MG/DL 70-110 Performed by certified gas station operator at [facility] VITAMIN [id number] 09:27:00* Test Item Value Reference Range Comments VITAMIN B12 (test code=VITB12) 4724 pg/mL 193-986 FOLIC [id number] 09:27:00* Test Item Value Reference Range Comments FOLIC ACID (test code=FOL) 14.9 ng/mL 3.1-17.5 THYROID STIMULATING [id number] 09:27:00* Test Item Value Reference Range Comments THYROID STIMULATING HORMONE (test code=TSH) 1.34 0.42-5.47 Results in yogesh-International Units/mL [id number] 07:17:00* Test Item Value Reference Range Comments GLUBED (test code=GLUBED) 193 MG/DL 70-110 Performed by certified gas station operator at [facility] [id number] 21:21:00* Test Item Value Reference Range Comments GLUBED (test code=GLUBED) 285 MG/DL 70-110 Performed by certified gas station operator at [facility] [id number] 16:42:00* Test Item Value Reference Range Comments GLUBED (test code=GLUBED) 285 MG/DL 70-110 Performed by certified gas station operator at [facility] [id number] 15:10:00* Test Item Value Reference Range Comments SGOT/AST (test code=AST) 23 IUnit/L 15-37 COMMENTS: blood in labSGPT/[id number] 15:10:00* Test Item Value Reference Range Comments SGPT/ALT (test code=ALT) 91 IUnit/L 15-65 COMMENTS: blood in lab- XR CHEST 1 [id number] 12:48:00 FAX: Shalom Lisa I [phone] [place]: St: [facility] FAX: Candie ReinosoC Name: TORI GREGORY [facility] : 1945 Age/S: 72/M [address] [place] [address] Blvd Unit #: [id number] Loc: [place] [address] Phys: Candie Reinoso (Beckie) 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 s/p cabg EXAMS: CPT CODE: [id number] XR CHEST 1 V 47488 CHEST 1 VIEW: 08/29/2018 COMPARISON: August 26, [address] chest dated August 27, 2018 CLINICAL HISTORY: f/u pleural effusion. s/p cabg FINDINGS: Median sternotomy wires are present. Cardiomediastinal silhouette is stable in size. There are bibasilar infiltrates, left greater than right with associated moderate l eft pleural effusion. No pneumothorax is seen. IMP RESSION: Moderate left pleural effusion with bibasilar infilt rates, left greater than right. at 8876 Reported and signed by: Cedrick Cervantes M.D. CC: Shalom Guillermo MD; Candie Reinoso NP (Christy) Technologist: Rae Solorzano, RT(R); Grecia Baird, RT(R) [facility] Date/Time/By: 08/29/2018 (1248) : By: [email or web address] Orig Print D/T: S: 08/29/2018 (8800) PAGE 1 Signed Report [id number] 12:00:00* Test Item Value Reference Range Comments GLUBED (test code=GLUBED) 304 MG/DL 70-110 Performed by certified gas station operator at [facility] [id number] 08:34:00* Test Item Value Reference Range Comments GLUBED (test code=GLUBED) 206 MG/DL 70-110 Performed by certified gas station operator at [facility] BASIC METABOLIC [id number] 04:21:00* Test Item Value Reference Range Comments SODIUM (test code=NA) 138 mEq/L 134-147 POTASSIUM (test code=K) 4.2 mEq/L 3.4-5.0 CHLORIDE (test code=CL) 101 mEq/L 100-108 CARBON DIOXIDE (test code=CO2) 31 mEq/L 21-33 ANION GAP (test code=GAP) 10 0-20 GLUCOSE (test code=GLU) 211 mg/dL 70-110 BLOOD UREA NITROGEN (test code=BUN) 27 mg/dL 7-18 GLOMERULAR FILTRATION RATE (test code=GFR) 54.3 70-80 Units of measure=ml/min/1.73 m2 CREATININE (test code=CREAT) 1.3 mg/dL 0.6-1.3 CALCIUM (test code=CA) 9.2 mg/dL 8.0-10.5 [id number] 04:21:00* Test Item Value Reference Range Comments MAGNESIUM (test code=MAG) 2.10 mg/dL 1.8-2.4 CBC W/AUTO [id number] 04:09:00* Test Item Value Reference Range Comments WHITE BLOOD CELL (test code=WBC) 11.77 x10 3/uL 4.5-11.0 RED BLOOD CELL (test code=RBC) 3.14 x10 6/uL 4.00-5.60 HEMOGLOBIN (test code=HGB) 8.5 g/dL 12.5-16.9 HEMATOCRIT (test code=HCT) 28.7 % 37.5-50.7 MEAN CELL VOLUME (test code=MCV) 91.4 fL 81.0-99.0 MEAN CELL HGB (test code=MCH) 27.1 pg 27.0-33.0 MEAN CELL HGB CONCETRATION (test code=MCHC) 29.6 g/dL 33.0-37.0 RED CELL DISTRIBUTION WIDTH CV (test code=RDW) 16.8 % 11.5-14.5 RED CELL DISTRIBUTION WIDTH SD (test code=RDW-SD) 55.3 fL 37.0-54.0 PLATELET COUNT (test code=PLT) 337 x10 3/uL 150-400 MEAN PLATELET VOLUME (test code=MPV) 10.7 fL 7.0-9.0 NEUTROPHIL % (test code=NT%) 69.1 % 56.0-77.0 IMMATURE GRANULOCYTE % (test code=IG%) 0.7 % 0.0-2.0 LYMPHOCYTE % (test code=LY%) 16.1 % 14.0-32.0 MONOCYTE % (test code=MO%) 8.8 % 4.8-9.0 EOSINOPHIL % (test code=EO%) 5.0 % 0.3-3.7 BASOPHIL % (test code=BA%) 0.3 % 0.0-2.0 NUCLEATED RBC % (test code=NRBC%) 0.0 % 0-0 NEUTROPHIL # (test code=NT#) 8.13 x10 3/uL 2.0-7.6 IMMATURE GRANULOCYTE # (test code=IG#) 0.08 x10 3/uL 0.00-0.03 LYMPHOCYTE # (test code=LY#) 1.89 x10 3/uL 1.0-3.8 MONOCYTE # (test code=MO#) 1.04 x10 3/uL 0.1-0.8 EOSINOPHIL # (test code=EO#) 0.59 x10 3/uL 0.0-0.2 BASOPHIL # (test code=BA#) 0.04 x10 3/uL 0.0-0.2 NUCLEATED RBC # (test code=NRBC#) 0.00 x10 3/uL 0.0-0.1 MANUAL DIFF REQUIRED (test code=MDIFF) NO [id number] 21:41:00* Test Item Value Reference Range Comments GLUBED (test code=GLUBED) 230 MG/DL 70-110 Performed by certified gas station operator at [facility] [id number] 16:36:00* Test Item Value Reference Range Comments GLUBED (test code=GLUBED) 315 MG/DL 70-110 Performed by certified gas station operator at [facility] [id number] 11:10:00* Test Item Value Reference Range Comments GLUBED (test code=GLUBED) 287 MG/DL 70-110 Performed by certified gas station operator at [facility] [id number] 08:15:00* Test Item Value Reference Range Comments GLUBED (test code=GLUBED) 170 MG/DL 70-110 Performed by certified gas station operator at [facility] BASIC METABOLIC [id number] 04:34:00* Test Item Value Reference Range Comments SODIUM (test code=NA) 138 mEq/L 134-147 POTASSIUM (test code=K) 4.0 mEq/L 3.4-5.0 CHLORIDE (test code=CL) 100 mEq/L 100-108 CARBON DIOXIDE (test code=CO2) 31 mEq/L 21-33 ANION GAP (test code=GAP) 11 0-20 GLUCOSE (test code=GLU) 165 mg/dL 70-110 BLOOD UREA NITROGEN (test code=BUN) 19 mg/dL 7-18 GLOMERULAR FILTRATION RATE (test code=GFR) 73.5 70-80 Units of measure=ml/min/1.73 m2 CREATININE (test code=CREAT) 1.0 mg/dL 0.6-1.3 CALCIUM (test code=CA) 9.0 mg/dL 8.0-10.5 [id number] 20:25:00* Test Item Value Reference Range Comments GLUBED (test code=GLUBED) 289 MG/DL 70-110 Performed by certified gas station operator at [facility] [id number] 17:04:00* Test Item Value Reference Range Comments GLUBED (test code=GLUBED) 246 MG/DL 70-110 Performed by certified gas station operator at [facility] - CT CHEST W/O [id number] 14:11:00 Name: TORI GREGORY [facility] : 1945 Age/S: 72 / M [address] [place] [address] Bl Unit #: [id number] Loc: [place] [address] Phys: Candie Reinoso) FOOD AND NUTRITION SERVICES ASSISTANT Acct: [id number] Dis Date: Status: ADM IN PHONE #: [phone] Exam Date: 08/27/2018 1320 FAX #: [phone] Reason: F/U PLEURAL EFFUSION. EVALUATE FOR POSS THORACO EXAMS: CPT CODE: [id number] CT CHEST W/O CONTRAST 18678 EXAM: CT CHEST WITHOUT CONTRAST DATE: 08/27/2018 8:27 AM : 1945; Age: 72 years y/o Male INDICATION: F/U PLEURAL EFFUSION. EVALUATE FOR POSS THORACOSCOPY COMPARISON: August 22, 2018 TECHNIQUE: Volumetric CT of the chest is acquired without contrast. Axial, coronal and sagittal images are provided. IV contrast: None. DLP: 421 mGy-cm CT imaging performed at this location utilizes radiation dose optimization techniques which include one or more of the following: -Automated exposure control -Adjustment of the mA and/or kV according to patient size -Use of iterative reconstruction technique FINDINGS: Lower neck: The visible portions or the lower neck and thyroid are unremarkable. Lymph Nodes: There is no mediastinal or hilar lymphadenopathy. No axillary lymphadenopathy. Heart, pericardium and aorta: : The heart is enlarged. No pericardial effusion. There are coronary artery calcifications. Cardiac surgery changes are seen within the anterior mediastinum. Atheromatous changes are present in the aorta.. LUNGS: Persistent moderate atelectatic changes in the left lower lobe. Improved aeration of the right lung base compared to prior examination. Breathing changes limits evaluation. Unchanged mild to moderate left pleural effusion. Interval decrease in small right pleural effusion. No pleural effusions. The central airway is patent. Upper abdomen: Unremarkable. Soft tissues: Sternotomy changes. Bones: No acute abnormality. Age-related degenerative findings. PAGE 1 Signed Report (CONTINUED) Name: TORI GREGORY [facility] : 1945 Age/S: 72 / M [address] [place] [address] Blvd Unit #: [id number] Loc: [place] [address] Phys: Maribel Reinoso Yasmeen (Beckie) FOOD AND NUTRITION SERVICES ASSISTANT Acct: [id number] Di s Date: Status: ADM IN PHONE #: Exam Date: 08/27/2018 1322 FAX #: [phone] Reason: F/U PLEURAL EFFUSION. EVALUATE FOR POSS THORACO EXAMS: CPT CODE: [id number] CT CHEST W/O CONTRAST 39597 <Continued> IMPRESSION: 1. Persistent moderate atelectatic changes in the left lower lobe. Improved aeration of the right lung base compared to prior examination. Unchanged mild to moderate left pleural effusion. Interval decrease in small right pleural effusion. Superimposed bilateral lower lobes infectious process cannot be excluded. 2. Postsurgical changes with some fluid within the anterior mediastinum. SL: [id number] at 1411 Reported and signed by: Rachel Glaser D.O. CC: Shalom Guillermo MD; Candie Reinoso NP (Christy) Technologist:Marito Gordon, RT(R)(CT) CTDI: DLP: Trnscb Da te/Time: 08/27/2018 (6296) [email or web address] Orig Print D/T: S: 0 08/27/2018 (9854) CTDI: DLP: PAGE 2 Signed Report [id number] 12:43:00* Test Item Value Reference Range Comments GLUBED (test code=GLUBED) 310 MG/DL 70-110 Performed by certified gas station operator at [facility] [id number] 09:02:00* Test Item Value Reference Range Comments GLUBED (test code=GLUBED) 172 MG/DL 70-110 Performed by certified gas station operator at [facility] FLUID [id number] 04:17:00* Test Item Value Reference Range Comments FLUID GLUCOSE (test code=GLUFL) 234 MG/DL Reference intervals and other method performancespecifications have not been established for this test. Thetest result should be integrated into the clinical contextfor interpretation. DIAGNOSIS :NEW ONSET CONGESTIVE HEART FAILUREPLEURAL FLUIDFLUID PROTEIN 2018-08-27 04:17:00* Test Item Value Reference Range Comments FLUID PROTEIN (test code=PROTFL) 2.6 G/DL DIAGNOSIS :NEW ONSET CONGESTIVE HEART FAILUREPLEURAL FLUIDFLUID AMYLASE 2018-08-27 04:17:00* Test Item Value Reference Range Comments FLUID AMYLASE (test code=AMYFL) < 30 UNITS/L Reference intervals and other method performancespecifications have not been established for this test. Thetest result should be integrated into the clinical contextfor interpretation. DIAGNOSIS :NEW ONSET CONGESTIVE HEART FAILUREPLEURAL FLUIDFLUID [id number] 04:17:00* Test Item Value Reference Range Comments FLUID LDH (test code=LDHFL) 488 UNITS/L 50-1500 Reference intervals and other method performancespecifications have not been established for this test. Thetest result should be integrated into the clinical contextfor interpretation. DIAGNOSIS :NEW ONSET CONGESTIVE HEART FAILUREPLEURAL FLUIDFLUID GLUCOSE 2018-08-27 04:17:00* Test Item Value Reference Range Comments FLUID GLUCOSE (test code=GLUFL) 234 MG/DL () Reference intervals and other method performancespecifications have not been established for this test. Thetest result should be integrated into the clinical contextfor interpretation. DIAGNOSIS :NEW ONSET CONGESTIVE HEART FAILUREPLEURAL FLUIDFLUID PROTEIN 2018-08-27 04:17:00* Test Item Value Reference Range Comments FLUID PROTEIN (test code=PROTFL) 2.6 G/DL () DIAGNOSIS :NEW ONSET CONGESTIVE HEART FAILUREPLEURAL FLUIDFLUID AMYLASE 2018-08-27 04:17:00* Test Item Value Reference Range Comments FLUID AMYLASE (test code=AMYFL) < 30 UNITS/L () Reference intervals and other method performancespecifications have not been established for this test. Thetest result should be integrated into the clinical contextfor interpretation. DIAGNOSIS :NEW ONSET CONGESTIVE HEART FAILUREPLEURAL FLUIDFLUID [id number] 04:17:00* Test Item Value Reference Range Comments FLUID LDH (test code=LDHFL) 488 UNITS/L 50-1500 Reference intervals and other method performancespecifications have not been established for this test. Thetest result should be integrated into the clinical contextfor interpretation. DIAGNOSIS :NEW ONSET CONGESTIVE HEART FAILUREPLEURAL FLUIDBASIC METABOLIC PANEL 2018-08-27 04:03:00* Test Item Value Reference Range Comments SODIUM (test code=NA) 137 mEq/L 134-147 POTASSIUM (test code=K) 3.7 mEq/L 3.4-5.0 CHLORIDE (test code=CL) 99 mEq/L 100-108 CARBON DIOXIDE (test code=CO2) 34 mEq/L 21-33 ANION GAP (test code=GAP) 8 0-20 GLUCOSE (test code=GLU) 178 mg/dL 70-110 BLOOD UREA NITROGEN (test code=BUN) 17 mg/dL 7-18 GLOMERULAR FILTRATION RATE (test code=GFR) 65.8 70-80 Units of measure=ml/min/1.73 m2 CREATININE (test code=CREAT) 1.1 mg/dL 0.6-1.3 CALCIUM (test code=CA) 8.6 mg/dL 8.0-10.5 HEPATIC FUNCTION [id number] 04:03:00* Test Item Value Reference Range Comments TOTAL PROTEIN (test code=PROT) 6.7 g/dL 6.4-8.2 ALBUMIN (test code=ALB) 2.70 g/dL 3.4-5.0 BILIRUBIN TOTAL (test code=BILT) 0.60 mg/dL 0.0-1.0 BILIRUBIN DIRECT (test code=BILD) 0.20 MG/DL 0.0-0.30 BILIRUBIN INDIRECT (test code=BILIND) 0.40 MG/DL SGOT/AST (test code=AST) 21 IUnit/L 15-37 SGPT/ALT (test code=ALT) 142 IUnit/L 15-65 ALKALINE PHOSPHATASE TOTAL (test code=ALKP) 75 IUnit/L 20-125 CBC W/AUTO [id number] 03:49:00* Test Item Value Reference Range Comments WHITE BLOOD CELL (test code=WBC) 12.49 x10 3/uL 4.5-11.0 RED BLOOD CELL (test code=RBC) 3.39 x10 6/uL 4.00-5.60 HEMOGLOBIN (test code=HGB) 9.2 g/dL 12.5-16.9 HEMATOCRIT (test code=HCT) 30.6 % 37.5-50.7 MEAN CELL VOLUME (test code=MCV) 90.3 fL 81.0-99.0 MEAN CELL HGB (test code=MCH) 27.1 pg 27.0-33.0 MEAN CELL HGB CONCETRATION (test code=MCHC) 30.1 g/dL 33.0-37.0 RED CELL DISTRIBUTION WIDTH CV (test code=RDW) 16.8 % 11.5-14.5 RED CELL DISTRIBUTION WIDTH SD (test code=RDW-SD) 54.0 fL 37.0-54.0 PLATELET COUNT (test code=PLT) 307 x10 3/uL 150-400 MEAN PLATELET VOLUME (test code=MPV) 11.0 fL 7.0-9.0 NEUTROPHIL % (test code=NT%) 70.3 % 56.0-77.0 IMMATURE GRANULOCYTE % (test code=IG%) 0.8 % 0.0-2.0 LYMPHOCYTE % (test code=LY%) 15.7 % 14.0-32.0 MONOCYTE % (test code=MO%) 9.4 % 4.8-9.0 EOSINOPHIL % (test code=EO%) 3.6 % 0.3-3.7 BASOPHIL % (test code=BA%) 0.2 % 0.0-2.0 NUCLEATED RBC % (test code=NRBC%) 0.0 % 0-0 NEUTROPHIL # (test code=NT#) 8.79 x10 3/uL 2.0-7.6 IMMATURE GRANULOCYTE # (test code=IG#) 0.10 x10 3/uL 0.00-0.03 LYMPHOCYTE # (test code=LY#) 1.96 x10 3/uL 1.0-3.8 MONOCYTE # (test code=MO#) 1.17 x10 3/uL 0.1-0.8 EOSINOPHIL # (test code=EO#) 0.45 x10 3/uL 0.0-0.2 BASOPHIL # (test code=BA#) 0.02 x10 3/uL 0.0-0.2 NUCLEATED RBC # (test code=NRBC#) 0.00 x10 3/uL 0.0-0.1 MANUAL DIFF REQUIRED (test code=MDIFF) NO [id number] 21:52:00* Test Item Value Reference Range Comments GLUBED (test code=GLUBED) 387 MG/DL 70-110 Performed by certified gas station operator at [facility] [id number] 17:00:00* Test Item Value Reference Range Comments GLUBED (test code=GLUBED) 250 MG/DL 70-110 Performed by certified gas station operator at [facility] - XR CHEST 1 [id number] 15:29:00 FAX: Shalom Lisa I [phone] [place]: St: ADM FAX: Bandar Storm [phone] Name: TORI GREGORY [facility] : 1945 Age/S: 72/M [address] [place] [address] Unit #: [id number] Loc: [address] [place] [address] Phys: Bandar Rausch MD Acct: [id number] Dis Date: Status: ADM IN PHONE #: [phone] Exam Date: 08/26/2018 1524 FAX #: [phone] Reason: Post tap on right EXAMS: CPT CODE: [id number] XR CHEST 1 V 17643 CHEST, SINGLE VIEW HISTORY: Right pleural effusion, postthoracentesis Comparison made to chest x-ray dated 08/22/18. FINDINGS: There is no right pneumothorax postthoracentesis. Heart is enlarged. Pulmonary vascularity is indistinct. Left effusion volumes increased from 08/22/18. IMPRESSION: 1. No pneumothorax following right thoracentesis. 2. Congestive heart failure, increased volume left pleural effusion from 08/22/18. SL:01 at 1529 Reported and signed by: William Perez M.D. CC: Shalom Guillermo MD; Bandar Rausch MD Technologist: Jolie Grier, RT(R), RTT Trnazrd Date/Time/By: 08/26/2018 (152) : By: Shilpi Orig Print D/T: S: 08/26/2018 (6609) PAGE 1 Signed Report [id number] 11:31:00* Test Item Value Reference Range Comments GLUBED (test code=GLUBED) 316 MG/DL 70-110 Performed by certified gas station operator at [facility] [id number] 08:11:00* Test Item Value Reference Range Comments GLUBED (test code=GLUBED) 176 MG/DL 70-110 Performed by certified gas station operator at [facility] BASIC METABOLIC [id number] 04:40:00* Test Item Value Reference Range Comments SODIUM (test code=NA) 138 mEq/L 134-147 POTASSIUM (test code=K) 3.7 mEq/L 3.4-5.0 CHLORIDE (test code=CL) 99 mEq/L 100-108 CARBON DIOXIDE (test code=CO2) 31 mEq/L 21-33 ANION GAP (test code=GAP) 12 0-20 GLUCOSE (test code=GLU) 244 mg/dL 70-110 BLOOD UREA NITROGEN (test code=BUN) 21 mg/dL 7-18 GLOMERULAR FILTRATION RATE (test code=GFR) 54.3 70-80 Units of measure=ml/min/1.73 m2 CREATININE (test code=CREAT) 1.3 mg/dL 0.6-1.3 CALCIUM (test code=CA) 8.7 mg/dL 8.0-10.5 HEPATIC FUNCTION [id number] 04:40:00* Test Item Value Reference Range Comments TOTAL PROTEIN (test code=PROT) 6.5 g/dL 6.4-8.2 ALBUMIN (test code=ALB) 2.60 g/dL 3.4-5.0 BILIRUBIN TOTAL (test code=BILT) 0.50 mg/dL 0.0-1.0 BILIRUBIN DIRECT (test code=BILD) 0.20 MG/DL 0.0-0.30 BILIRUBIN INDIRECT (test code=BILIND) 0.30 MG/DL SGOT/AST (test code=AST) 19 IUnit/L 15-37 SGPT/ALT (test code=ALT) 180 IUnit/L 15-65 ALKALINE PHOSPHATASE TOTAL (test code=ALKP) 78 IUnit/L 20-125 CBC W/AUTO [id number] 04:22:00* Test Item Value Reference Range Comments WHITE BLOOD CELL (test code=WBC) 12.40 x10 3/uL 4.5-11.0 RED BLOOD CELL (test code=RBC) 3.03 x10 6/uL 4.00-5.60 HEMOGLOBIN (test code=HGB) 8.4 g/dL 12.5-16.9 HEMATOCRIT (test code=HCT) 26.9 % 37.5-50.7 MEAN CELL VOLUME (test code=MCV) 88.8 fL 81.0-99.0 MEAN CELL HGB (test code=MCH) 27.7 pg 27.0-33.0 MEAN CELL HGB CONCETRATION (test code=MCHC) 31.2 g/dL 33.0-37.0 RED CELL DISTRIBUTION WIDTH CV (test code=RDW) 16.9 % 11.5-14.5 RED CELL DISTRIBUTION WIDTH SD (test code=RDW-SD) 53.4 fL 37.0-54.0 PLATELET COUNT (test code=PLT) 262 x10 3/uL 150-400 MEAN PLATELET VOLUME (test code=MPV) 11.2 fL 7.0-9.0 NEUTROPHIL % (test code=NT%) 73.5 % 56.0-77.0 IMMATURE GRANULOCYTE % (test code=IG%) 0.7 % 0.0-2.0 LYMPHOCYTE % (test code=LY%) 12.8 % 14.0-32.0 MONOCYTE % (test code=MO%) 9.0 % 4.8-9.0 EOSINOPHIL % (test code=EO%) 3.8 % 0.3-3.7 BASOPHIL % (test code=BA%) 0.2 % 0.0-2.0 NUCLEATED RBC % (test code=NRBC%) 0.0 % 0-0 NEUTROPHIL # (test code=NT#) 9.11 x10 3/uL 2.0-7.6 IMMATURE GRANULOCYTE # (test code=IG#) 0.09 x10 3/uL 0.00-0.03 LYMPHOCYTE # (test code=LY#) 1.59 x10 3/uL 1.0-3.8 MONOCYTE # (test code=MO#) 1.11 x10 3/uL 0.1-0.8 EOSINOPHIL # (test code=EO#) 0.47 x10 3/uL 0.0-0.2 BASOPHIL # (test code=BA#) 0.03 x10 3/uL 0.0-0.2 NUCLEATED RBC # (test code=NRBC#) 0.00 x10 3/uL 0.0-0.1 MANUAL DIFF REQUIRED (test code=MDIFF) NO [id number] 20:17:00* Test Item Value Reference Range Comments GLUBED (test code=GLUBED) 201 MG/DL 70-110 Performed by certified gas station operator at [facility] [id number] 17:11:00* Test Item Value Reference Range Comments GLUBED (test code=GLUBED) 329 MG/DL 70-110 Performed by certified gas station operator at [facility] [id number] 11:54:00* Test Item Value Reference Range Comments GLUBED (test code=GLUBED) 199 MG/DL 70-110 Performed by certified gas station operator at [facility] [id number] 07:56:00* Test Item Value Reference Range Comments GLUBED (test code=GLUBED) 169 MG/DL 70-110 Performed by certified gas station operator at [facility] BASIC METABOLIC [id number] 04:30:00* Test Item Value Reference Range Comments SODIUM (test code=NA) 139 mEq/L 134-147 POTASSIUM (test code=K) 3.8 mEq/L 3.4-5.0 CHLORIDE (test code=CL) 101 mEq/L 100-108 CARBON DIOXIDE (test code=CO2) 34 mEq/L 21-33 ANION GAP (test code=GAP) 8 0-20 GLUCOSE (test code=GLU) 219 mg/dL 70-110 BLOOD UREA NITROGEN (test code=BUN) 17 mg/dL 7-18 GLOMERULAR FILTRATION RATE (test code=GFR) 59.5 70-80 Units of measure=ml/min/1.73 m2 CREATININE (test code=CREAT) 1.2 mg/dL 0.6-1.3 CALCIUM (test code=CA) 8.2 mg/dL 8.0-10.5 HEPATIC FUNCTION [id number] 04:30:00* Test Item Value Reference Range Comments TOTAL PROTEIN (test code=PROT) 5.9 g/dL 6.4-8.2 ALBUMIN (test code=ALB) 2.50 g/dL 3.4-5.0 BILIRUBIN TOTAL (test code=BILT) 0.50 mg/dL 0.0-1.0 BILIRUBIN DIRECT (test code=BILD) 0.20 MG/DL 0.0-0.30 BILIRUBIN INDIRECT (test code=BILIND) 0.30 MG/DL SGOT/AST (test code=AST) 25 IUnit/L 15-37 SGPT/ALT (test code=ALT) 229 IUnit/L 15-65 ALKALINE PHOSPHATASE TOTAL (test code=ALKP) 82 IUnit/L 20-125 CBC W/AUTO [id number] 04:05:00* Test Item Value Reference Range Comments WHITE BLOOD CELL (test code=WBC) 9.92 x10 3/uL 4.5-11.0 RED BLOOD CELL (test code=RBC) 2.88 x10 6/uL 4.00-5.60 HEMOGLOBIN (test code=HGB) 7.8 g/dL 12.5-16.9 HEMATOCRIT (test code=HCT) 25.7 % 37.5-50.7 MEAN CELL VOLUME (test code=MCV) 89.2 fL 81.0-99.0 MEAN CELL HGB (test code=MCH) 27.1 pg 27.0-33.0 MEAN CELL HGB CONCETRATION (test code=MCHC) 30.4 g/dL 33.0-37.0 RED CELL DISTRIBUTION WIDTH CV (test code=RDW) 16.7 % 11.5-14.5 RED CELL DISTRIBUTION WIDTH SD (test code=RDW-SD) 53.9 fL 37.0-54.0 PLATELET COUNT (test code=PLT) 222 x10 3/uL 150-400 MEAN PLATELET VOLUME (test code=MPV) 11.1 fL 7.0-9.0 NEUTROPHIL % (test code=NT%) 70.9 % 56.0-77.0 IMMATURE GRANULOCYTE % (test code=IG%) 1.2 % 0.0-2.0 LYMPHOCYTE % (test code=LY%) 14.2 % 14.0-32.0 MONOCYTE % (test code=MO%) 9.8 % 4.8-9.0 EOSINOPHIL % (test code=EO%) 3.7 % 0.3-3.7 BASOPHIL % (test code=BA%) 0.2 % 0.0-2.0 NUCLEATED RBC % (test code=NRBC%) 0.3 % 0-0 NEUTROPHIL # (test code=NT#) 7.03 x10 3/uL 2.0-7.6 IMMATURE GRANULOCYTE # (test code=IG#) 0.12 x10 3/uL 0.00-0.03 LYMPHOCYTE # (test code=LY#) 1.41 x10 3/uL 1.0-3.8 MONOCYTE # (test code=MO#) 0.97 x10 3/uL 0.1-0.8 EOSINOPHIL # (test code=EO#) 0.37 x10 3/uL 0.0-0.2 BASOPHIL # (test code=BA#) 0.02 x10 3/uL 0.0-0.2 NUCLEATED RBC # (test code=NRBC#) 0.03 x10 3/uL 0.0-0.1 MANUAL DIFF REQUIRED (test code=MDIFF) NO [id number] 20:42:00* Test Item Value Reference Range Comments GLUBED (test code=GLUBED) 225 MG/DL 70-110 Performed by certified gas station operator at [facility] [id number] 16:57:00* Test Item Value Reference Range Comments GLUBED (test code=GLUBED) 247 MG/DL 70-110 Performed by certified gas station operator at [facility] ANTINUCLEAR ANTIBODIES [id number] 16:08:00* Test Item Value Reference Range Comments OCLE SCREEN (test code=ANASCR) Positive () Negative <1:80 Borderline 1:80 Positive >1:80 ACUTE HEPATITIS [id number] 16:08:00* Test Item Value Reference Range Comments AB HEPATITIS A IGM (test code=HAVMAB) NON REACTIVE INDEX NON REACT. AG HEPATITIS B SURFACE (test code=HBSAG) NON REACTIVE INDEX NonReactive AB HEPATITIS B CORE IGM (test code=HBCMAB) NON REACTIVE INDEX NON REACT. AB HEPATITIS C (test code=HCVAB) NON REACTIVE INDEX NON REACT. ANTINUCLEAR ANTIBODIES [id number] 16:08:00* Test Item Value Reference Range Comments COLE SCREEN (test code=ANASCR) Positive () Negative <1:80 Borderline 1:80 Positive >1:80 COLE HOMOGENEOUS PATTERN (test code=ANAHOM) 1:80 () COLE COMMENT (test code=ANACOM) () A positive COLE result may occur in healthy individuals (lowtiter) or be associated with a variety of diseases. Seeinterpretation chart which is not all inclusive:Pattern Antigen Detected Suggested Disease Association Homogeneous DNA(ds,ss), SLE - High titers Nucleosomes, Histones Drug-induced SLE Speckled Sm, PARTS MANAGER, SCL-70, SLE,MCTD,PSS (diffuse form), SS-A/SS-B Sjogrens Nucleolar SCL-70, PM-1/SCL High titers Scleroderma, PM/DM Centromere Centromere PSS (limited form) w/Crest syndrome variable Nuclear Dot Sp100,i30-fuozaa Primary Biliary Cirrhosis Nuclear GP210, Primary Biliary CirrhosisMembrane mana A,B,C Performed At: [facility] [id number] Cortes Germain MD Ph:[phone] reported result: Edited by: SUSAN on 08/24/18:476447 1608: COLE COMMENT previously reported as: ACUTE HEPATITIS [id number] 16:08:00* Test Item Value Reference Range Comments AB HEPATITIS A IGM (test code=HAVMAB) NON REACTIVE INDEX NON REACT. AG HEPATITIS B SURFACE (test code=HBSAG) NON REACTIVE INDEX NonReactive AB HEPATITIS B CORE IGM (test code=HBCMAB) NON REACTIVE INDEX NON REACT. AB HEPATITIS C (test code=HCVAB) NON REACTIVE INDEX NON REACT. [id number] 12:08:00* Test Item Value Reference Range Comments GLUBED (test code=GLUBED) 304 MG/DL 70-110 Performed by certified gas station operator at [facility] [id number] 08:37:00* Test Item Value Reference Range Comments GLUBED (test code=GLUBED) 147 MG/DL 70-110 Performed by certified gas station operator at [facility] BASIC METABOLIC [id number] 05:38:00* Test Item Value Reference Range Comments SODIUM (test code=NA) 138 mEq/L 134-147 POTASSIUM (test code=K) 3.5 mEq/L 3.4-5.0 CHLORIDE (test code=CL) 101 mEq/L 100-108 CARBON DIOXIDE (test code=CO2) 32 mEq/L 21-33 ANION GAP (test code=GAP) 9 0-20 GLUCOSE (test code=GLU) 175 mg/dL 70-110 BLOOD UREA NITROGEN (test code=BUN) 17 mg/dL 7-18 GLOMERULAR FILTRATION RATE (test code=GFR) 73.5 70-80 Units of measure=ml/min/1.73 m2 CREATININE (test code=CREAT) 1.0 mg/dL 0.6-1.3 CALCIUM (test code=CA) 7.8 mg/dL 8.0-10.5 HEPATIC FUNCTION [id number] 05:38:00* Test Item Value Reference Range Comments TOTAL PROTEIN (test code=PROT) 5.8 g/dL 6.4-8.2 ALBUMIN (test code=ALB) 2.60 g/dL 3.4-5.0 BILIRUBIN TOTAL (test code=BILT) 0.70 mg/dL 0.0-1.0 BILIRUBIN DIRECT (test code=BILD) 0.30 MG/DL 0.0-0.30 BILIRUBIN INDIRECT (test code=BILIND) 0.40 MG/DL SGOT/AST (test code=AST) 34 IUnit/L 15-37 SGPT/ALT (test code=ALT) 330 IUnit/L 15-65 ALKALINE PHOSPHATASE TOTAL (test code=ALKP) 86 IUnit/L 20-125 PROTHROMBIN [id number] 05:26:00* Test Item Value Reference Range Comments PROTHROMBIN TIME PATIENT (test code=PTP) 13.9 SECONDS 9.3-12.9 INTERNATIONAL NORMAL RATIO (test code=INR) 1.3 0.8-1.2 TARGET INR BY INDICATION Indication INR1. Prophylaxis of venous thrombosis 2.0 - 3.0 (orthopedic surgery), Prophylaxis of venous thrombosis (other than high-risk surgery), Treatment of Deep Vein Thrombosis/Pulmonary Embolism, Prevention of systemic embolism - Tissue heart valves, Acute Myocardial Infarction (to prevent systemic embolism), Valvular heart disease, Atrial Fibrillation, Bileaflet mechanical valve in aortic position.2. Mechanical prosthetic valves (high risk), 2.5 - 3.5 Presence of Lupus Anticoagulant or Antiphospholipid Antibodies, Prevention of systemic embolism - Acute Myocardial Infarction (to prevent recurrent infarct). THROMBOPLASTIN TIME [id number] 05:26:00* Test Item Value Reference Range Comments THROMBOPLASTIN TIME PARTIAL (test code=PTT) 25.8 Seconds 25.0-39.5 Therapeutic Range: 61.8-83.8 Sec Effective 08/27/2013 CBC W/AUTO [id number] 05:09:00* Test Item Value Reference Range Comments WHITE BLOOD CELL (test code=WBC) 9.92 x10 3/uL 4.5-11.0 RED BLOOD CELL (test code=RBC) 2.98 x10 6/uL 4.00-5.60 HEMOGLOBIN (test code=HGB) 8.1 g/dL 12.5-16.9 HEMATOCRIT (test code=HCT) 26.9 % 37.5-50.7 MEAN CELL VOLUME (test code=MCV) 90.3 fL 81.0-99.0 MEAN CELL HGB (test code=MCH) 27.2 pg 27.0-33.0 MEAN CELL HGB CONCETRATION (test code=MCHC) 30.1 g/dL 33.0-37.0 RED CELL DISTRIBUTION WIDTH CV (test code=RDW) 16.7 % 11.5-14.5 RED CELL DISTRIBUTION WIDTH SD (test code=RDW-SD) 54.1 fL 37.0-54.0 PLATELET COUNT (test code=PLT) 222 x10 3/uL 150-400 MEAN PLATELET VOLUME (test code=MPV) 11.4 fL 7.0-9.0 NEUTROPHIL % (test code=NT%) 73.4 % 56.0-77.0 IMMATURE GRANULOCYTE % (test code=IG%) 1.6 % 0.0-2.0 LYMPHOCYTE % (test code=LY%) 12.6 % 14.0-32.0 MONOCYTE % (test code=MO%) 10.0 % 4.8-9.0 EOSINOPHIL % (test code=EO%) 2.3 % 0.3-3.7 BASOPHIL % (test code=BA%) 0.1 % 0.0-2.0 NUCLEATED RBC % (test code=NRBC%) 0.7 % 0-0 NEUTROPHIL # (test code=NT#) 7.28 x10 3/uL 2.0-7.6 IMMATURE GRANULOCYTE # (test code=IG#) 0.16 x10 3/uL 0.00-0.03 LYMPHOCYTE # (test code=LY#) 1.25 x10 3/uL 1.0-3.8 MONOCYTE # (test code=MO#) 0.99 x10 3/uL 0.1-0.8 EOSINOPHIL # (test code=EO#) 0.23 x10 3/uL 0.0-0.2 BASOPHIL # (test code=BA#) 0.01 x10 3/uL 0.0-0.2 NUCLEATED RBC # (test code=NRBC#) 0.07 x10 3/uL 0.0-0.1 MANUAL DIFF REQUIRED (test code=MDIFF) NO [id number] 19:53:00* Test Item Value Reference Range Comments GLUBED (test code=GLUBED) 324 MG/DL 70-110 Performed by certified gas station operator at [facility] [id number] 16:34:00* Test Item Value Reference Range Comments GLUBED (test code=GLUBED) 233 MG/DL 70-110 Performed by certified gas station operator at [facility] [id number] 13:28:00* Test Item Value Reference Range Comments GLUBED (test code=GLUBED) 222 MG/DL 70-110 Performed by certified gas station operator at [facility] [id number] 08:23:00* Test Item Value Reference Range Comments GLUBED (test code=GLUBED) 152 MG/DL 70-110 Performed by certified gas station operator at [facility] BASIC METABOLIC [id number] 07:39:00* Test Item Value Reference Range Comments SODIUM (test code=NA) 137 mEq/L 134-147 POTASSIUM (test code=K) 4.0 mEq/L 3.4-5.0 CHLORIDE (test code=CL) 102 mEq/L 100-108 CARBON DIOXIDE (test code=CO2) 30 mEq/L 21-33 ANION GAP (test code=GAP) 9 0-20 GLUCOSE (test code=GLU) 151 mg/dL 70-110 BLOOD UREA NITROGEN (test code=BUN) 22 mg/dL 7-18 GLOMERULAR FILTRATION RATE (test code=GFR) 73.5 70-80 Units of measure=ml/min/1.73 m2 CREATININE (test code=CREAT) 1.0 mg/dL 0.6-1.3 CALCIUM (test code=CA) 7.9 mg/dL 8.0-10.5 HEPATIC FUNCTION [id number] 07:39:00* Test Item Value Reference Range Comments TOTAL PROTEIN (test code=PROT) 5.8 g/dL 6.4-8.2 ALBUMIN (test code=ALB) 2.60 g/dL 3.4-5.0 BILIRUBIN TOTAL (test code=BILT) 0.80 mg/dL 0.0-1.0 BILIRUBIN DIRECT (test code=BILD) 0.30 MG/DL 0.0-0.30 BILIRUBIN INDIRECT (test code=BILIND) 0.50 MG/DL SGOT/AST (test code=AST) 51 IUnit/L 15-37 SGPT/ALT (test code=ALT) 475 IUnit/L 15-65 ALKALINE PHOSPHATASE TOTAL (test code=ALKP) 102 IUnit/L 20-125 [id number] 07:39:00* Test Item Value Reference Range Comments MAGNESIUM (test code=MAG) 2.30 mg/dL 1.8-2.4 CBC W/AUTO [id number] 07:39:00* Test Item Value Reference Range Comments WHITE BLOOD CELL (test code=WBC) 11.09 x10 3/uL 4.5-11.0 RED BLOOD CELL (test code=RBC) 2.92 x10 6/uL 4.00-5.60 HEMOGLOBIN (test code=HGB) 8.0 g/dL 12.5-16.9 HEMATOCRIT (test code=HCT) 26.3 % 37.5-50.7 MEAN CELL VOLUME (test code=MCV) 90.1 fL 81.0-99.0 MEAN CELL HGB (test code=MCH) 27.4 pg 27.0-33.0 MEAN CELL HGB CONCETRATION (test code=MCHC) 30.4 g/dL 33.0-37.0 RED CELL DISTRIBUTION WIDTH CV (test code=RDW) 17.0 % 11.5-14.5 RED CELL DISTRIBUTION WIDTH SD (test code=RDW-SD) 53.5 fL 37.0-54.0 PLATELET COUNT (test code=PLT) 192 x10 3/uL 150-400 MEAN PLATELET VOLUME (test code=MPV) 11.7 fL 7.0-9.0 NEUTROPHIL % (test code=NT%) 76.8 % 56.0-77.0 IMMATURE GRANULOCYTE % (test code=IG%) 2.1 % 0.0-2.0 LYMPHOCYTE % (test code=LY%) 10.9 % 14.0-32.0 MONOCYTE % (test code=MO%) 8.1 % 4.8-9.0 EOSINOPHIL % (test code=EO%) 1.9 % 0.3-3.7 BASOPHIL % (test code=BA%) 0.2 % 0.0-2.0 NUCLEATED RBC % (test code=NRBC%) 1.4 % 0-0 NEUTROPHIL # (test code=NT#) 8.52 x10 3/uL 2.0-7.6 IMMATURE GRANULOCYTE # (test code=IG#) 0.23 x10 3/uL 0.00-0.03 LYMPHOCYTE # (test code=LY#) 1.21 x10 3/uL 1.0-3.8 MONOCYTE # (test code=MO#) 0.90 x10 3/uL 0.1-0.8 EOSINOPHIL # (test code=EO#) 0.21 x10 3/uL 0.0-0.2 BASOPHIL # (test code=BA#) 0.02 x10 3/uL 0.0-0.2 NUCLEATED RBC # (test code=NRBC#) 0.15 x10 3/uL 0.0-0.1 MANUAL DIFF REQUIRED (test code=MDIFF) NO [id number] 22:47:00* Test Item Value Reference Range Comments GLUBED (test code=GLUBED) 225 MG/DL 70-110 Performed by certified gas station operator at [facility] - CT CHEST W/O [id number] 18:42:00 Name: TORI GREGORY [facility] : 1945 Age/S: 72 / M [address] [place] [address] Blvd Unit #: [id number] Loc: [place] [address] Phys: Mary Jo Evans FOOD AND NUTRITION SERVICES ASSISTANT Acct: [id number] Dis Date: Status: ADM IN PHONE #: [phone] Exam Date: 08/22/2018 1753 FAX #: [phone] Reason: EVAL FOR DEGREE OF EVAL. OF PLEURAL EFFUSION EXAMS: CPT CODE: [id number] CT CHEST W/O CONTRAST 20744 PROCEDURE: CT CHEST WITHOUT CONTRAST INDICATION: 72 years Male, EVAL FOR DEGREE OF EVAL. OF PLEURAL EFFUSION. Cardiomyopathy. Shortness of breath COMPARISON: Noncontrast CT chest 08/14/2018. Abdominal CT 08/21/2018. Chest x-ray 08/22/2018 TECHNIQUE: Helical noncontrast images are obtained from the lung apices to the lung bases. Axial, sagittal and coronal reconstructions are available. IV contrast: None. DOSE: CT imaging performed at this location utilizes radiation dose optimization technique which includes one or more of the followin) Automated exposure control; 2) Adjustment of the mA and/or kV according to patient's size; 3) Use of iterative reconstruction techniques. DLP (mGy-cm): 452 FINDINGS: LOWER NECK: Limited visualization. No abnormality. MEDIASTINUM: Heart remains enlarged without pericardial effusion. Coronary artery calcifications. No pathologic adenopathy by size criteria. 8 mm short axis subcarinal node, previously 1.3 cm. PUL MONARY PARENCHYMA: Moderate layering bilateral pleural effusions which cheryle ear increased from 08/14/2018 and 08/21/2018. Bibasilar compressive atelect asis versus infiltrate. There is no pneumothorax. Bilateral calcified gr anulomas. Airways are patent without bronchiectasis. UPPER A BDOMEN: Limited visualization. No abnormality. MUSCULOSKELETAL: No acute osseous abnormalities or destructive bony lesions. Vertebral body h eight are maintained. OTHER: None. IMPRESSION: Int erval increase of moderate bilateral pleural effusions with bibasilar co mpressive atelectasis versus infiltrate. SL: - PAGE 1 Signed Report (CONTINUED) Name: RAZA VALDIVIA TORI HENDERSON [facility] : 1945 Age/S: 72 / M [address] [place] [address] Blvd Unit #: [id number] L oc: [place] [address] Phys: Mary Jo Evans FOOD AND NUTRITION SERVICES ASSISTANT Acct: [id number] Dis Date: Status: ADM IN PHONE #: [phone] Exam Date: 08/22/2018 1758 FAX #: [phone] Rosalva son: EVAL FOR DEGREE OF EVAL. OF PLEURAL EFFUSION EXAMS: CPT CODE: [id number] CT CHEST W/O CONTRAST 37702 <Continued> at 1842 Reported and signed by: Ben Adhikari M.D. CC: Mary Jo Evans FOOD AND NUTRITION SERVICES ASSISTANT; Shalom Guillermo MD Technologist:RT Tevin(R)(CT) CTDI: DLP: Trnscb Date/Time: 08/22/2018 (1841) [email or web address] Orig Print D/T: S: 08/22/2018 (1844) CTDI: DLP: PAGE 2 Signed Report [id number] 17:09:00* Test Item Value Reference Range Comments GLUBED (test code=GLUBED) 236 MG/DL 70-110 Performed by certified gas station operator at [facility]2019-01-24 11:44:00* Test Item Value Reference Range Comments GLUBED (test code=GLUBED) 238 MG/DL 70-110 Performed by certified gas station operator at [facility] [id number] 11:35:00* Test Item Value Reference Range Comments GLUBED (test code=GLUBED) 186 MG/DL 70-110 Performed by certified gas station operator at [facility] - US ABDOMEN [id number] 09:19:00 Name: TORI GREGORY [facility] : 1945 Age/S: 72 / M [address] [place], [place] [address] Unit #: [id number] Loc: [place] [address] Phys: Sundar Ji TOLL BRIDGE ATTENDANT Acct: [id number] Dis Date: Status: ADM IN PHONE #: [phone] Exam Date: 08/22/2018 0846 FAX #: [phone] Reason: elevated LFTs EXAMS: CPT CODE: [id number] US ABDOMEN LTD 57846 PROCEDURE: ABDOMINAL ULTRASOUND INDICATION: 72-year-old male with elevated LFTs COMPARISON: CT abdomen/pelvis 08/21/2018 TECHNIQUE: Sonographic evaluation of the right upper quadrant abdomen was performed with supplemental color and pulsed Doppler. FINDINGS: LIVER: The liver is normal in size, contour and morphology with mildly increased parenchymal echogenicity. GALLBLADDER: There are no gallstones, sludge, or pericholecystic fluid. Wall is mildly thickened measuring 5 mm. Negative sonographic Villa sign. BILE DUCTS: No biliary dilatation. The common duct measures 5 mm. PANCREAS: The pancreas is obscured by bowel gas. KIDNEYS: The right kidney measures 10.0 cm in length. Normal contour and parenchymal echogenicity. There is no hydronephrosis, nephrolithiasis, mass lesion or perinephric collection. Additional comments: No free intraperitoneal fluid. Right pleural effusion noted. IMPRESSION: 1. Mildly increa sed echogenicity of the liver parenchyma suggestive of mild fatty infilt ration. 2. Mild nonspecific gallbladder wall thickening. 3. Th e pancreas is obscured by bowel gas. 4. Right pleural effusion. SL: [id number] at 0919 Reported and signed by: Nallely Sunshine M.D. PAGE 1 Signed Report (CONTINUED) Name: TORI GREGORY [facility] : 1945 Age/S: 72 / M [address] [place] [address] Unit #: [id number] Loc: [place] [address] Phys: Sundar Ji Acct: [id number] Dis Date: Status: ADM IN PHONE #: [phone] Exam Date: 08/22/2018 0846 FAX #: [phone] Reason: elevated LFTs EXAMS: CPT CODE: [id number] US ABDOMEN LTD 60588 <Continued> CC: Sundar Ji; Shalom Guillermo MD Technologist: Velia Maza RDMS(A)(OB) Trnscb Date/Time: 08/22/2018 (918) [email or web address] Orig Print D/T: S: 08/22/2018 (921) Probe: PAGE 2 Signed Report HEPATIC FUNCTION PANEL 2018-08-22 08:53:00* Test Item Value Reference Range Comments TOTAL PROTEIN (test code=PROT) 5.8 g/dL 6.4-8.2 ALBUMIN (test code=ALB) 2.80 g/dL 3.4-5.0 BILIRUBIN TOTAL (test code=BILT) 0.80 mg/dL 0.0-1.0 BILIRUBIN DIRECT (test code=BILD) 0.30 MG/DL 0.0-0.30 BILIRUBIN INDIRECT (test code=BILIND) 0.50 MG/DL SGOT/AST (test code=AST) 109 IUnit/L 15-37 SGPT/ALT (test code=ALT) 725 IUnit/L 15-65 ALKALINE PHOSPHATASE TOTAL (test code=ALKP) 113 IUnit/L 20-125 - XR CHEST 1 [id number] 07:31:00 FAX: Shalom Lisa I [phone] [place]: St: ADM FAX: Candie Reinoso (C Name: UZIEL REDDLaryELVIABASIL [facility] : 1945 Age/S: 72/M [address] [place] [address] Unit #: [id number] Loc: [address] [place] [address] Phys: Candie Reinoso NP (Christy) Acct: [id number] Dis Date: Status: ADM IN PHONE #: [phone] Exam Date: 08/22/2018 0553 FAX #: [phone] Reason: Cardiac Surgery Post Op EXAMS: CPT CODE: [id number] XR CHEST 1 V 41098 - XR CHEST 1 V 08/22/2018 5:00 AM Ordering Physician: Candie Reinoso NP (Christy) CLINICAL HISTORY: Cardiac surgery postop; TECHNIQUE: A single AP view of the chest was obtained. COMPARISON: August 21, 2017. FINDINGS: Bilateral moderate pleural effusions are seen with bibasilar opacities. The upper lungs are grossly clear. No radiographically detectable pneumothorax is present. The heart is enlarged. Median sternotomy wires are present. Left posterior 6th rib fracture is visualized. No additional acute osseous abnormality is seen. IMPRESSION: 1. Bilateral moderate pleural effusions with bibasilar opacities. 2. Left posterior 6th rib fracture now visualized, not seen on chest radiograph from the prior day. SL: TREVON at 0731 Reported and signed by: Ben Mendoza M.D. CC: Shalom Guillermo MD; Candie Reinoso NP (Christy) Technologist: Milton Kuhn, RT(R); RT Desirae(R) Trnscrd Date/Time/By: 08/22/2018 (0731) : By: [email or web address] Orig Print D/T: S: 08/22/2018 (0734) PAGE 1 Signed Report CBC W/AUTO [id number] 05:16:00* Test Item Value Reference Range Comments WHITE BLOOD CELL (test code=WBC) 14.57 x10 3/uL 4.5-11.0 RED BLOOD CELL (test code=RBC) 2.86 x10 6/uL 4.00-5.60 HEMOGLOBIN (test code=HGB) 7.9 g/dL 12.5-16.9 HEMATOCRIT (test code=HCT) 25.2 % 37.5-50.7 MEAN CELL VOLUME (test code=MCV) 88.1 fL 81.0-99.0 MEAN CELL HGB (test code=MCH) 27.6 pg 27.0-33.0 MEAN CELL HGB CONCETRATION (test code=MCHC) 31.3 g/dL 33.0-37.0 RED CELL DISTRIBUTION WIDTH CV (test code=RDW) 16.4 % 11.5-14.5 RED CELL DISTRIBUTION WIDTH SD (test code=RDW-SD) 51.2 fL 37.0-54.0 PLATELET COUNT (test code=PLT) 178 x10 3/uL 150-400 MEAN PLATELET VOLUME (test code=MPV) 11.7 fL 7.0-9.0 NEUTROPHIL % (test code=NT%) 74.6 % 56.0-77.0 IMMATURE GRANULOCYTE % (test code=IG%) 2.5 % 0.0-2.0 LYMPHOCYTE % (test code=LY%) 12.0 % 14.0-32.0 MONOCYTE % (test code=MO%) 9.3 % 4.8-9.0 EOSINOPHIL % (test code=EO%) 1.5 % 0.3-3.7 BASOPHIL % (test code=BA%) 0.1 % 0.0-2.0 NUCLEATED RBC % (test code=NRBC%) 2.1 % 0-0 NEUTROPHIL # (test code=NT#) 10.85 x10 3/uL 2.0-7.6 IMMATURE GRANULOCYTE # (test code=IG#) 0.37 x10 3/uL 0.00-0.03 LYMPHOCYTE # (test code=LY#) 1.75 x10 3/uL 1.0-3.8 MONOCYTE # (test code=MO#) 1.36 x10 3/uL 0.1-0.8 EOSINOPHIL # (test code=EO#) 0.22 x10 3/uL 0.0-0.2 BASOPHIL # (test code=BA#) 0.02 x10 3/uL 0.0-0.2 NUCLEATED RBC # (test code=NRBC#) 0.31 x10 3/uL 0.0-0.1 MANUAL DIFF REQUIRED (test code=MDIFF) NO COMMENTS: Daily while on HeparinCOMPREHENSIVE METABOLIC [id number] 05:16:00 * Test Item Value Reference Range Comments SODIUM (test code=NA) 136 mEq/L 134-147 POTASSIUM (test code=K) 4.3 mEq/L 3.4-5.0 CHLORIDE (test code=CL) 102 mEq/L 100-108 CARBON DIOXIDE (test code=CO2) 29 mEq/L 21-33 ANION GAP (test code=GAP) 9 0-20 GLUCOSE (test code=GLU) 166 mg/dL 70-110 BLOOD UREA NITROGEN (test code=BUN) 26 mg/dL 7-18 GLOMERULAR FILTRATION RATE (test code=GFR) 65.8 70-80 Units of measure=ml/min/1.73 m2 CREATININE (test code=CREAT) 1.1 mg/dL 0.6-1.3 TOTAL PROTEIN (test code=PROT) 5.8 g/dL 6.4-8.2 ALBUMIN (test code=ALB) 2.80 g/dL 3.4-5.0 CALCIUM (test code=CA) 7.8 mg/dL 8.0-10.5 BILIRUBIN TOTAL (test code=BILT) 0.80 mg/dL 0.0-1.0 SGOT/AST (test code=AST) 110 IUnit/L 15-37 SGPT/ALT (test code=ALT) 709 IUnit/L 15-65 ALKALINE PHOSPHATASE TOTAL (test code=ALKP) 111 IUnit/L 20-125 [id number] 05:16:00* Test Item Value Reference Range Comments MAGNESIUM (test code=MAG) 2.40 mg/dL 1.8-2.4 [id number] 21:08:00* Test Item Value Reference Range Comments GLUBED (test code=GLUBED) 200 MG/DL 70-110 Performed by certified gas station operator at [facility] [id number] 18:41:00* Test Item Value Reference Range Comments GLUBED (test code=GLUBED) 269 MG/DL 70-110 Performed by certified gas station operator at [facility] ANTINUCLEAR ANTIBODIES [id number] 15:18:00* Test Item Value Reference Range Comments COLE SCREEN (test code=ANASCR) ACUTE HEPATITIS [id number] 15:18:00* Test Item Value Reference Range Comments AB HEPATITIS A IGM (test code=HAVMAB) NON REACTIVE INDEX NON REACT. AG HEPATITIS B SURFACE (test code=HBSAG) NON REACTIVE INDEX NonReactive AB HEPATITIS B CORE IGM (test code=HBCMAB) NON REACTIVE INDEX NON REACT. AB HEPATITIS C (test code=HCVAB) NON REACTIVE INDEX NON REACT. ANTINUCLEAR ANTIBODIES [id number] 15:16:00* Test Item Value Reference Range Comments COLE SCREEN (test code=ANASCR) ACUTE HEPATITIS [id number] 15:16:00* Test Item Value Reference Range Comments AB HEPATITIS A IGM (test code=HAVMAB) INDEX NON REACT. AG HEPATITIS B SURFACE (test code=HBSAG) NON REACTIVE INDEX NonReactive AB HEPATITIS B CORE IGM (test code=HBCMAB) NON REACTIVE INDEX NON REACT. AB HEPATITIS C (test code=HCVAB) NON REACTIVE INDEX NON REACT. ANTINUCLEAR ANTIBODIES [id number] 15:15:00* Test Item Value Reference Range Comments COLE SCREEN (test code=ANASCR) ACUTE HEPATITIS [id number] 15:15:00* Test Item Value Reference Range Comments AB HEPATITIS A IGM (test code=HAVMAB) INDEX NON REACT. AG HEPATITIS B SURFACE (test code=HBSAG) NON REACTIVE INDEX NonReactive AB HEPATITIS B CORE IGM (test code=HBCMAB) INDEX NON REACT. AB HEPATITIS C (test code=HCVAB) NON REACTIVE INDEX NON REACT. ANTINUCLEAR ANTIBODIES [id number] 14:54:00* Test Item Value Reference Range Comments COLE SCREEN (test code=ANASCR) ACUTE HEPATITIS [id number] 14:54:00* Test Item Value Reference Range Comments AB HEPATITIS A IGM (test code=HAVMAB) INDEX NON REACT. AG HEPATITIS B SURFACE (test code=HBSAG) NON REACTIVE INDEX NonReactive AB HEPATITIS B CORE IGM (test code=HBCMAB) INDEX NON REACT. AB HEPATITIS C (test code=HCVAB) INDEX NON REACT. [id number] 14:24:00* Test Item Value Reference Range Comments ACETAMINOPHEN (test code=ACET) < 2 ug/mL 05-28 - CT ABD PELVIS W/O [id number] 13:28:00 Name: TORI GREGORY [facility] : 1945 Age/S: 72 / M [address] [place] [address] Unit #: [id number] Loc: [place] [address] Phys: Mary Jo Evans [employer] ASSISTANT Acct: [id number] Dis Date: Status: ADM IN PHONE #: [phone] Exam Date: 08/21/2018 1235 FAX #: [phone] Reason: elevated lft and abd pain EXAMS: CPT CODE: [id number] CT ABD PELVIS W/O CONT [id number] EXAM: CT ABDOMEN/PELVIS WITHOUT CONTRAST HISTORY: 72 year old male with elevated lfts and abdominal pain. TECHNIQUE: GI CONTRAST: None. IV CONTRAST: None. Helical axial imaging was performed from the diaphragm through the symphysis. Coronal and sagittal reformations obtained. DOSE: CT imaging performed at this location utilizes radiation dose optimization technique which includes one or more of the followin) Automated exposure control; 2) Adjustment of the mA and/or kV according to patient's size; 3) Use of iterative reconstruction techniques DLP (mGy-cm): 1103.2 COMPARISON: None. FINDINGS: This examination is limited for the evaluation of solid organs and vascular structures due to lack of intravenous contrast. LOWER CHEST: Moderate bilateral effusions with associated bibasilar atelectasis/consolidation. Bilateral lower lobe calcified granulomas noted. Cardiomegaly. Coronary artery calcifications. A few foci of air noted just posterior to the sternum in the anterior mediastinum likely related to recent cardiac surgery. S ternotomy wires present. SOLID ORGANS: No focal hepatic lesion or intrahepatic biliary ductal dilatation is seen. No calcified gallstone is noted. The spleen, pancreas, and adrenal glands are normal in non- enhanced appearance. No renal/ureteral calculus, hydronephr osis, or mass is apparent. Mild nonspecific bilateral perinephric strandi ng. BOWEL: The small bowel and colon are normal in caliber without wall thickening. A normal appendix is identified. A few scattered colonic diverticula are noted without evidence of acute diverticulitis. PERITONEUM: Trace free fluid in the left paracolic gutter and right lower quadrant. Small fat-containing left inguinal hernia. Surgical clip s in the left lower quadrant suggestive of prior hernia repair. PAGE 1 Signed Report (CONTINUED) Name: UZIEL XIMENA LALO GOODAbel [facility] : 1945 Age/ S: 72 / M [address] [place] [address] Unit #: [id number] Loc: [place] [address] Phys: Mary Jo Evans FOOD AND NUTRITION SERVICES ASSISTANT Acct: [id number] Dis Date: Status: ADM IN PHONE #: [phone] Exam Date: 08/21/2018 1235 FAX #: [phone] Reason: elevated lft and abd pain EXAMS: CPT CODE: [id number] CT ABD PELVIS W/O CONT 05322 <Continued> RETROPERITONEUM: The aorta is normal in caliber. Atherosclerotic plaque in the aorta and branch vessels. Circumaortic left renal vein. No lymphadenopathy is noted. PELVIS: The visualized urinary bladder wall is normal thickness. Prostate is enlarged measuring 5.8 cm transverse. MUSCULOSKELETAL: No acute osseous abnormality is seen. No destructive lytic or blastic osseous lesion is noted. Degenerative changes throughout the spine. IMPRESSION: 1. Moderate bilateral pleural effusions with associated bibasilar atelectasis/consolidation. 2. Minimal colonic diverticulosis without evidence of acute diverticulitis. 3. Nonspecific trace abdominal free fluid. 4. Small fat-containing left inguinal hernia. 5. Prostatomegaly. SL: [id number] at 1328 Reported and signed by: Nallely Sunshine M.D. CC: Mary Jo Evans FOOD AND NUTRITION SERVICES ASSISTANT; Shalom Guillermo MD Technologist:Omero Weir, RT(R) CTDI: DLP: Trnscb Date/Time: 08/21/2018 (1328) [email or web address] Orig Print D/T: S: 08/21/2018 (2051) CTDI: DLP: PAGE 2 Signed Report HEPATIC FUNCTION [id number] 10:44:00* Test Item Value Reference Range Comments TOTAL PROTEIN (test code=PROT) 5.9 g/dL 6.4-8.2 ALBUMIN (test code=ALB) 3.20 g/dL 3.4-5.0 BILIRUBIN TOTAL (test code=BILT) 1.00 mg/dL 0.0-1.0 BILIRUBIN DIRECT (test code=BILD) 0.50 MG/DL 0.0-0.30 BILIRUBIN INDIRECT (test code=BILIND) 0.50 MG/DL SGOT/AST (test code=AST) 349 IUnit/L 15-37 SGPT/ALT (test code=ALT) 1082 IUnit/L 15-65 ALKALINE PHOSPHATASE TOTAL (test code=ALKP) 131 IUnit/L 20-125 [id number] 09:10:00* Test Item Value Reference Range Comments GLUBED (test code=GLUBED) 228 MG/DL 70-110 Performed by certified gas station operator at [facility] - XR CHEST 1 [id number] 07:37:00 FAX: Shalom Lisa I [phone] [place]: St: ADM FAX: Candie Reinosoh (C Name: TORI GREGORY [facility] : 1945 Age/S: 72/M [address] [place] [address] Unit #: [id number] Loc: G.3362 [place] [address] Phys: Candie Reinoso NP (Christy) Acct: [id number] Dis Date: Status: ADM IN PHONE #: [phone] Exam Date: 08/21/2018544 FAX #: [phone] Reason: Cardiac Surgery Post Op EXAMS: CPT CODE: [id number] XR CHEST 1 V 80361 - XR CHEST 1 V 08/21/2018 5:00 AM Ordering Physician: Candie Reinoso NP (Christy) CLINICAL HISTORY: Cardiac surgery postop; TECHNIQUE: A single AP view of the chest was obtained. COMPARISON: August 20, 2018. FINDINGS: Bilateral moderate layering pleural effusions seen with bibasilar hazy densities. The upper lungs are clear. Previous left-sided chest tube is not definitively seen. No radiographically detectable pneumothorax is present. Cardiomegaly is noted. Median sternotomy wires are present. No acute osseous abnormality is evident. IMPRESSION: 1. Previous left-sided chest tube not definitively seen, may be outside the [id number] or removed. 2. Bilateral moderate layering pleural effusions with bibasilar hazy densities. 3. Ca rdiomegaly. SL: HEIDYH * * at 0737 Reported and signed by: Ben Mendoza M.D. CC: Shalom Guillermo MD; Marcell Reinoso NP (Christy) Technologist: Milton Kuhn, RT(R); Dilcia chua, RT(R) Trnscrd Date/Time/By: 08/21/2018 (0737) : By: [email or web address] Orig Print D/T: S: 08/21/2018 (0754) PAGE 1 Signed Report BASIC METABOLIC [id number] 04:39:00* Test Item Value Reference Range Comments SODIUM (test code=NA) 132 mEq/L 134-147 POTASSIUM (test code=K) 4.7 mEq/L 3.4-5.0 CHLORIDE (test code=CL) 100 mEq/L 100-108 CARBON DIOXIDE (test code=CO2) 25 mEq/L 21-33 ANION GAP (test code=GAP) 12 0-20 GLUCOSE (test code=GLU) 207 mg/dL 70-110 BLOOD UREA NITROGEN (test code=BUN) 29 mg/dL 7-18 GLOMERULAR FILTRATION RATE (test code=GFR) 59.5 70-80 Units of measure=ml/min/1.73 m2 CREATININE (test code=CREAT) 1.2 mg/dL 0.6-1.3 CALCIUM (test code=CA) 7.4 mg/dL 8.0-10.5 [id number] 04:39:00* Test Item Value Reference Range Comments MAGNESIUM (test code=MAG) 2.70 mg/dL 1.8-2.4 CBC W/AUTO [id number] 04:19:00* Test Item Value Reference Range Comments WHITE BLOOD CELL (test code=WBC) 16.41 x10 3/uL 4.5-11.0 RED BLOOD CELL (test code=RBC) 2.76 x10 6/uL 4.00-5.60 HEMOGLOBIN (test code=HGB) 7.8 g/dL 12.5-16.9 HEMATOCRIT (test code=HCT) 24.4 % 37.5-50.7 MEAN CELL VOLUME (test code=MCV) 88.4 fL 81.0-99.0 MEAN CELL HGB (test code=MCH) 28.3 pg 27.0-33.0 MEAN CELL HGB CONCETRATION (test code=MCHC) 32.0 g/dL 33.0-37.0 RED CELL DISTRIBUTION WIDTH CV (test code=RDW) 16.0 % 11.5-14.5 RED CELL DISTRIBUTION WIDTH SD (test code=RDW-SD) 51.2 fL 37.0-54.0 PLATELET COUNT (test code=PLT) 131 x10 3/uL 150-400 MEAN PLATELET VOLUME (test code=MPV) 12.6 fL 7.0-9.0 NEUTROPHIL % (test code=NT%) 76.0 % 56.0-77.0 IMMATURE GRANULOCYTE % (test code=IG%) 2.6 % 0.0-2.0 LYMPHOCYTE % (test code=LY%) 9.3 % 14.0-32.0 MONOCYTE % (test code=MO%) 11.4 % 4.8-9.0 EOSINOPHIL % (test code=EO%) 0.5 % 0.3-3.7 BASOPHIL % (test code=BA%) 0.2 % 0.0-2.0 NUCLEATED RBC % (test code=NRBC%) 3.3 % 0-0 NEUTROPHIL # (test code=NT#) 12.48 x10 3/uL 2.0-7.6 IMMATURE GRANULOCYTE # (test code=IG#) 0.43 x10 3/uL 0.00-0.03 LYMPHOCYTE # (test code=LY#) 1.52 x10 3/uL 1.0-3.8 MONOCYTE # (test code=MO#) 1.87 x10 3/uL 0.1-0.8 EOSINOPHIL # (test code=EO#) 0.08 x10 3/uL 0.0-0.2 BASOPHIL # (test code=BA#) 0.03 x10 3/uL 0.0-0.2 NUCLEATED RBC # (test code=NRBC#) 0.54 x10 3/uL 0.0-0.1 MANUAL DIFF REQUIRED (test code=MDIFF) NO COMMENTS: Daily while on HeparinURINALYSIS [id number] 01:22:00* Test Item Value Reference Range Comments UA COLOR (test code=COLU) YELLOW YEL/STRAW UA APPEARANCE (test code=APPU) SL CLOUDY CLEAR UA GLUCOSE DIPSTICK (test code=DGLUU) NEGATIVE NEGATIVE UA BILIRUBIN DIPSTICK (test code=BILU) NEGATIVE NEGATIVE UA KETONE DIPSTICK (test code=KETU) NEGATIVE NEGATIVE UA SPECIFIC GRAVITY (test code=SGU) 1.019 1.005-1.030 UA BLOOD DIPSTICK (test code=BO) 1+ NEGATIVE UA PH DIPSTICK (test code=MARIBEL) 5.0 5.0-7.0 UA PROTEIN DIPSTICK (test code=PROU) NEGATIVE NEGATIVE UA UROBILINIOGEN DIPSTICK (test code=URO) 2.0 mg/dL 0.2-1.0 UA NITRITE DIPSTICK (test code=JAMEEL) NEGATIVE NEGATIVE UA LEUKOCYTE ESTERASE DIPSTICK (test code=LEUU) TRACE NEGATIVE UA WBC (test code=WBCU) 4-9 WBC/HPF 0-3 UA RBC (test code=RBCU) 11-20 RBC/HPF 0-3 UA BACTERIA (test code=BACU) TRACE /HPF NONE SEEN UA SQUAMOUS CELLS (test code=SQU) 0-5 /HPF NONE SEEN UA HYALINE CAST (test code=HYALU) 11-20 /LPF NONE SEEN UA MUCUS (test code=MUCU) 1+ /LPF NONE SEEN UA CULT [id number] 01:22:00* Test Item Value Reference Range Comments UA CULTURE NEEDED? (test code=UACULT) NO, WBC<10 Criteria Culture Chk Criteria not met, Urine Culture cancelled. COMPREHENSIVE METABOLIC [id number] 00:42:00* Test Item Value Reference Range Comments SODIUM (test code=NA) 132 mEq/L 134-147 POTASSIUM (test code=K) 4.6 mEq/L 3.4-5.0 CHLORIDE (test code=CL) 100 mEq/L 100-108 CARBON DIOXIDE (test code=CO2) 25 mEq/L 21-33 ANION GAP (test code=GAP) 12 0-20 GLUCOSE (test code=GLU) 236 mg/dL 70-110 BLOOD UREA NITROGEN (test code=BUN) 28 mg/dL 7-18 GLOMERULAR FILTRATION RATE (test code=GFR) 54.3 70-80 Units of measure=ml/min/1.73 m2 CREATININE (test code=CREAT) 1.3 mg/dL 0.6-1.3 TOTAL PROTEIN (test code=PROT) 6.0 g/dL 6.4-8.2 ALBUMIN (test code=ALB) 3.10 g/dL 3.4-5.0 CALCIUM (test code=CA) 7.4 mg/dL 8.0-10.5 BILIRUBIN TOTAL (test code=BILT) 0.90 mg/dL 0.0-1.0 SGOT/AST (test code=AST) 346 IUnit/L 15-37 SGPT/ALT (test code=ALT) 1078 IUnit/L 15-65 ALKALINE PHOSPHATASE TOTAL (test code=ALKP) 133 IUnit/L 20-125 ARTERIAL BLOOD [id number] 00:19:00* Test Item Value Reference Range Comments ARTERIAL BLOOD GAS PH (test code=PHA) 7.505 7.35-7.45 ARTERIAL BLOOD GAS PCO2 (test code=PCO2A) 26.8 mmHg 35-45 ARTERIAL BLOOD GAS PO2 (test code=PO2A) 61 mmHg 80-100 BICARBONATE TOTAL HCO3 (test code=HCO3) 21.1 mmol/L 22.0-26.0 BASE EXCESS (test code=MASHA) -2.0 mmol/L -4-4 ABG O2 SATURATION (test code=SATA) 94 % 90-100 ABG DELIVERY (test code=HOLLAND) Room Air Performed by certified gas station operator at [facility] ABG TEMPERATURE (test code=TEMPA) 98.6 F ABG SITE (test code=SITEA) R Rad TCO2 ARTERIAL (test code=TCO2A) 22 CBC W/AUTO [id number] 00:14:00* Test Item Value Reference Range Comments WHITE BLOOD CELL (test code=WBC) 14.95 x10 3/uL 4.5-11.0 RED BLOOD CELL (test code=RBC) 2.75 x10 6/uL 4.00-5.60 HEMOGLOBIN (test code=HGB) 7.6 g/dL 12.5-16.9 HEMATOCRIT (test code=HCT) 24.6 % 37.5-50.7 MEAN CELL VOLUME (test code=MCV) 89.5 fL 81.0-99.0 MEAN CELL HGB (test code=MCH) 27.6 pg 27.0-33.0 MEAN CELL HGB CONCETRATION (test code=MCHC) 30.9 g/dL 33.0-37.0 RED CELL DISTRIBUTION WIDTH CV (test code=RDW) 16.0 % 11.5-14.5 RED CELL DISTRIBUTION WIDTH SD (test code=RDW-SD) 51.5 fL 37.0-54.0 PLATELET COUNT (test code=PLT) 135 x10 3/uL 150-400 MEAN PLATELET VOLUME (test code=MPV) 12.2 fL 7.0-9.0 NEUTROPHIL % (test code=NT%) 70.9 % 56.0-77.0 IMMATURE GRANULOCYTE % (test code=IG%) 2.8 % 0.0-2.0 LYMPHOCYTE % (test code=LY%) 12.7 % 14.0-32.0 MONOCYTE % (test code=MO%) 12.8 % 4.8-9.0 EOSINOPHIL % (test code=EO%) 0.7 % 0.3-3.7 BASOPHIL % (test code=BA%) 0.1 % 0.0-2.0 NUCLEATED RBC % (test code=NRBC%) 5.6 % 0-0 NEUTROPHIL # (test code=NT#) 10.59 x10 3/uL 2.0-7.6 IMMATURE GRANULOCYTE # (test code=IG#) 0.42 x10 3/uL 0.00-0.03 LYMPHOCYTE # (test code=LY#) 1.90 x10 3/uL 1.0-3.8 MONOCYTE # (test code=MO#) 1.92 x10 3/uL 0.1-0.8 EOSINOPHIL # (test code=EO#) 0.10 x10 3/uL 0.0-0.2 BASOPHIL # (test code=BA#) 0.02 x10 3/uL 0.0-0.2 NUCLEATED RBC # (test code=NRBC#) 0.83 x10 3/uL 0.0-0.1 MANUAL DIFF REQUIRED (test code=MDIFF) NO [id number] 20:51:00* Test Item Value Reference Range Comments GLUBED (test code=GLUBED) 279 MG/DL 70-110 Performed by certified gas station operator at [facility] [id number] 17:42:00* Test Item Value Reference Range Comments MAGNESIUM (test code=MAG) 2.50 mg/dL 1.8-2.4 [id number] 17:26:00* Test Item Value Reference Range Comments GLUBED (test code=GLUBED) 199 MG/DL 70-110 Performed by certified gas station operator at [facility] - XR ABDOMEN 1V (KUB)2018-08-20 14:10:00 FAX: Shalom Lisa I [phone] [place]: St: ADM FAX: Courtney Laws MD [phone] Name: TORI GREGORY [facility] : 1945 Age/S: 72/M [address] [place], [place] [address] Unit #: [id number] Loc: Elvis.3362 [place] [address] Phys: Courtney Correa MD Acct: [id number] Dis Date: Status: ADM IN PHONE #: [phone] Exam Date: 08/20/2018 1323 FAX #: [phone] Reason: constipation, abd blo ating EXAMS: CPT CODE: [id number] XR ABDOMEN 1V (KUB) 62210 ONE VIEW ABDOMEN: HISTORY: Constipation with abdo elio bloating. COMPARISON EXAM: None available FIND INGS: This single view of the abdomen was obtained at 1250 hours on 019 and shows a normal gas pattern without evidence of bowel dilatation. N o unusual calcifications identified. Moderate degenerative disc di sease identified in the lower thoracic and lumbar regions. Gas and fecal material projected over the right side of the sacrum accounting for the un usual appearance. IMPRESSION: 1. No acute changes ident ified. 2. No evidence of bowel dilatation. 3. Degenerative sharona nges in the spine. SL:01 at 1410 Reported and signed by: Miki Swan M.D. CC: hSalom Guillermo MD; Courtney mccauley MD Technologist: Dilcia Escalona RT(R) Trnscrd Date/Time/By: 08/20/2018 (1410) : By: Sury.PRANAV/Sury.PRANAV O rig Print D/T: S: 08/20/2018 (6375) PAGE 1 Signed Report [id number] 12:14:00* Test Item Value Reference Range Comments GLUBED (test code=GLUBED) 275 MG/DL 70-110 Performed by certified gas station operator at [facility] ISTAT BLOOD [id number] 11:44:00* Test Item Value Reference Range Comments ARTERIAL BLOOD GAS PH (test code=PHA) 7.407 7.35-7.45 ARTERIAL BLOOD GAS PCO2 (test code=PCO2A) 38.0 mmHg 35-45 ARTERIAL BLOOD GAS PO2 (test code=PO2A) 72 mmHg 80-100 BICARBONATE TOTAL HCO3 (test code=HCO3) 23.9 mmol/L 22.0-26.0 BASE EXCESS (test code=MASHA) -1.0 mmol/L -4-4 ABG O2 SATURATION (test code=SATA) 94 % 90-100 ABG DELIVERY (test code=HOLLAND) Cannula ABG TEMPERATURE (test code=TEMPA) 99.0 F ABG SITE (test code=SITEA) Art line BLOOD GAS W/[id number] 11:44:00* Test Item Value Reference Range Comments ARTERIAL BLOOD GAS PH (test code=PHA) 7.375 7.35-7.45 ARTERIAL BLOOD GAS PCO2 (test code=PCO2A) 38.6 mmHg 35-45 ARTERIAL BLOOD GAS PO2 (test code=PO2A) 87 mmHg 80-100 BICARBONATE TOTAL HCO3 (test code=HCO3) 22.7 mmol/L 22.0-26.0 BASE EXCESS (test code=MASHA) -3.0 mmol/L -4-4 ABG O2 SATURATION (test code=SATA) 97 % 90-100 ABG DELIVERY (test code=HOLLAND) Vent ABG VENT MODE (test code=MODEA) Other ABG PRESSURE SUPPORT (test code=PSABG) 10 cmH2O Performed by certified gas station operator at [facility] ABG TEMPERATURE (test code=TEMPA) 98.0 F ABG SITE (test code=SITEA) Art line IONIZED CALCIUM (test code=CAIABG) 1.14 mmoL/L 1.15-1.35 SODIUM BEDSIDE (test code=NAB) 144 MEQ/L 134-147 POTASSIUM BEDSIDE (test code=KBD) 4.0 MEQ/L 4.5-7.0 [id number] 08:33:00* Test Item Value Reference Range Comments GLUBED (test code=GLUBED) 186 MG/DL 70-110 Performed by certified gas station operator at [facility] BASIC METABOLIC [id number] 08:18:00* Test Item Value Reference Range Comments SODIUM (test code=NA) 135 mEq/L 134-147 POTASSIUM (test code=K) 4.5 mEq/L 3.4-5.0 CHLORIDE (test code=CL) 103 mEq/L 100-108 CARBON DIOXIDE (test code=CO2) 24 mEq/L 21-33 ANION GAP (test code=GAP) 13 0-20 GLUCOSE (test code=GLU) 185 mg/dL 70-110 BLOOD UREA NITROGEN (test code=BUN) 30 mg/dL 7-18 GLOMERULAR FILTRATION RATE (test code=GFR) 73.5 70-80 Units of measure=ml/min/1.73 m2 CREATININE (test code=CREAT) 1.0 mg/dL 0.6-1.3 CALCIUM (test code=CA) 8.3 mg/dL 8.0-10.5 [id number] 08:18:00* Test Item Value Reference Range Comments MAGNESIUM (test code=MAG) 2.80 mg/dL 1.8-2.4 CBC W/AUTO [id number] 07:47:00* Test Item Value Reference Range Comments WHITE BLOOD CELL (test code=WBC) 12.02 x10 3/uL 4.5-11.0 RED BLOOD CELL (test code=RBC) 2.78 x10 6/uL 4.00-5.60 HEMOGLOBIN (test code=HGB) 7.9 g/dL 12.5-16.9 HEMATOCRIT (test code=HCT) 24.5 % 37.5-50.7 MEAN CELL VOLUME (test code=MCV) 88.1 fL 81.0-99.0 MEAN CELL HGB (test code=MCH) 28.4 pg 27.0-33.0 MEAN CELL HGB CONCETRATION (test code=MCHC) 32.2 g/dL 33.0-37.0 RED CELL DISTRIBUTION WIDTH CV (test code=RDW) 15.9 % 11.5-14.5 RED CELL DISTRIBUTION WIDTH SD (test code=RDW-SD) 50.4 fL 37.0-54.0 PLATELET COUNT (test code=PLT) 110 x10 3/uL 150-400 MEAN PLATELET VOLUME (test code=MPV) 12.4 fL 7.0-9.0 NEUTROPHIL % (test code=NT%) 77.4 % 56.0-77.0 IMMATURE GRANULOCYTE % (test code=IG%) 1.6 % 0.0-2.0 LYMPHOCYTE % (test code=LY%) 10.6 % 14.0-32.0 MONOCYTE % (test code=MO%) 9.2 % 4.8-9.0 EOSINOPHIL % (test code=EO%) 1.1 % 0.3-3.7 BASOPHIL % (test code=BA%) 0.1 % 0.0-2.0 NUCLEATED RBC % (test code=NRBC%) 1.5 % 0-0 NEUTROPHIL # (test code=NT#) 9.30 x10 3/uL 2.0-7.6 IMMATURE GRANULOCYTE # (test code=IG#) 0.19 x10 3/uL 0.00-0.03 LYMPHOCYTE # (test code=LY#) 1.28 x10 3/uL 1.0-3.8 MONOCYTE # (test code=MO#) 1.11 x10 3/uL 0.1-0.8 EOSINOPHIL # (test code=EO#) 0.13 x10 3/uL 0.0-0.2 BASOPHIL # (test code=BA#) 0.01 x10 3/uL 0.0-0.2 NUCLEATED RBC # (test code=NRBC#) 0.18 x10 3/uL 0.0-0.1 MANUAL DIFF REQUIRED (test code=MDIFF) NO COMMENTS: Daily while on Heparin- XR CHEST 1 [id number] 07:18:00 FAX: Shalom Lisa I [phone] [place]: St: [facility] FAX: Candie Reinosoh (C Name: TORI GREGORY [facility] : 1945 Age/S: 72/M [address] [place] [address] Unit #: [id number] Loc: G.3362 [place] [address] Phys: Candie Reinoso NP (Christy) Acct: [id number] Dis Date: Status: ADM IN PHONE #: [phone] Exam Date: 08/20/2018 0600 FAX #: [phone] Reason: Cardiac Surgery Post Op EXAMS: CPT CODE: [id number] XR CHEST 1 V 16153 - XR CHEST 1 V 08/20/2018 5:00 AM Ordering Physician: Candie Reinoso NP (Christy) CLINICAL HISTORY: Cardiac surgery postop; TECHNIQUE: A single AP view of the chest was obtained. COMPARISON: August 19, 2017. FINDINGS: Left- sided chest tube is in place. Bilateral mild pleural effusions and biba silar/retrocardiac densities are again seen. No radiographically detectab le pneumothorax is present. The heart is moderately enlarged. M edian sternotomy wires are present. No acute osseous abnormality is evide nt. IMPRESSION: 1. No significant paula ge. SL: CY-H Electr onically Signed by Jin Mendoza on 08/20/2018 at 0718 R eported and signed by: Ben Mendoza M.D. CC: Shalom Guillermo MD; Ousmane Reinoso NP (Christy) Technologist: Milton Kuhn, RT(R); Maine Dash RT(R) Trnscrd Date/Time/By: 08/20/2018 (07) : By: KortneyJY5 Orig Print D/T: S: 08/20/2018 (07) PAGE 1 Signed Report [id number] 21:21:00* Test Item Value Reference Range Comments GLUBED (test code=GLUBED) 215 MG/DL 70-110 Performed by certified gas station operator at [facility] [id number] 18:04:00* Test Item Value Reference Range Comments GLUBED (test code=GLUBED) 223 MG/DL 70-110 Performed by certified gas station operator at [facility] ISTAT BLOOD [id number] 14:34:00* Test Item Value Reference Range Comments ARTERIAL BLOOD GAS PH (test code=PHA) 7.407 7.35-7.45 ARTERIAL BLOOD GAS PCO2 (test code=PCO2A) 38.0 mmHg 35-45 ARTERIAL BLOOD GAS PO2 (test code=PO2A) 72 mmHg 80-100 BICARBONATE TOTAL HCO3 (test code=HCO3) 23.9 mmol/L 22.0-26.0 BASE EXCESS (test code=MASHA) -1.0 mmol/L -4-4 ABG O2 SATURATION (test code=SATA) 94 % 90-100 ABG DELIVERY (test code=HOLLAND) Cannula ABG TEMPERATURE (test code=TEMPA) 99.0 F ABG SITE (test code=SITEA) Art line POC LACTIC ACID (test code=POCLAC) mmol/L 0.9-1.7 [id number] 11:40:00* Test Item Value Reference Range Comments GLUBED (test code=GLUBED) 229 MG/DL 70-110 Performed by certified gas station operator at [facility] [id number] 08:41:00* Test Item Value Reference Range Comments GLUBED (test code=GLUBED) 167 MG/DL 70-110 Performed by certified gas station operator at [facility] CBC W/AUTO [id number] 08:03:00* Test Item Value Reference Range Comments WHITE BLOOD CELL (test code=WBC) 9.80 x10 3/uL 4.5-11.0 RED BLOOD CELL (test code=RBC) 2.56 x10 6/uL 4.00-5.60 HEMOGLOBIN (test code=HGB) 7.2 g/dL 12.5-16.9 HEMATOCRIT (test code=HCT) 23.0 % 37.5-50.7 MEAN CELL VOLUME (test code=MCV) 89.8 fL 81.0-99.0 MEAN CELL HGB (test code=MCH) 28.1 pg 27.0-33.0 MEAN CELL HGB CONCETRATION (test code=MCHC) 31.3 g/dL 33.0-37.0 RED CELL DISTRIBUTION WIDTH CV (test code=RDW) 15.9 % 11.5-14.5 RED CELL DISTRIBUTION WIDTH SD (test code=RDW-SD) 51.8 fL 37.0-54.0 PLATELET COUNT (test code=PLT) 75 x10 3/uL 150-400 MEAN PLATELET VOLUME (test code=MPV) 12.5 fL 7.0-9.0 NEUTROPHIL % (test code=NT%) 80.1 % 56.0-77.0 IMMATURE GRANULOCYTE % (test code=IG%) 0.7 % 0.0-2.0 LYMPHOCYTE % (test code=LY%) 11.3 % 14.0-32.0 MONOCYTE % (test code=MO%) 7.6 % 4.8-9.0 EOSINOPHIL % (test code=EO%) 0.2 % 0.3-3.7 BASOPHIL % (test code=BA%) 0.1 % 0.0-2.0 NUCLEATED RBC % (test code=NRBC%) 0.3 % 0-0 NEUTROPHIL # (test code=NT#) 7.85 x10 3/uL 2.0-7.6 IMMATURE GRANULOCYTE # (test code=IG#) 0.07 x10 3/uL 0.00-0.03 LYMPHOCYTE # (test code=LY#) 1.11 x10 3/uL 1.0-3.8 MONOCYTE # (test code=MO#) 0.74 x10 3/uL 0.1-0.8 EOSINOPHIL # (test code=EO#) 0.02 x10 3/uL 0.0-0.2 BASOPHIL # (test code=BA#) 0.01 x10 3/uL 0.0-0.2 NUCLEATED RBC # (test code=NRBC#) 0.03 x10 3/uL 0.0-0.1 MANUAL DIFF REQUIRED (test code=MDIFF) NO COMMENTS: Daily while on HeparinPLT [id number] 08:03:00* Test Item Value Reference Range Comments PLATELET ESTIMATE (test code=PLTEST) 84-105 THOUSAND ADEQUATE PLATELET MORPHOLOGY (test code=PLTMORPH) LARGE PLATELETS COMMENTS: Daily while on HeparinBASIC METABOLIC [id number] 07:53:00* Test Item Value Reference Range Comments SODIUM (test code=NA) 135 mEq/L 134-147 POTASSIUM (test code=K) 5.0 mEq/L 3.4-5.0 CHLORIDE (test code=CL) 103 mEq/L 100-108 CARBON DIOXIDE (test code=CO2) 24 mEq/L 21-33 ANION GAP (test code=GAP) 13 0-20 GLUCOSE (test code=GLU) 187 mg/dL 70-110 BLOOD UREA NITROGEN (test code=BUN) 38 mg/dL 7-18 GLOMERULAR FILTRATION RATE (test code=GFR) 59.5 70-80 Units of measure=ml/min/1.73 m2 CREATININE (test code=CREAT) 1.2 mg/dL 0.6-1.3 CALCIUM (test code=CA) 7.8 mg/dL 8.0-10.5 [id number] 07:53:00* Test Item Value Reference Range Comments MAGNESIUM (test code=MAG) 3.20 mg/dL 1.8-2.4 CBC W/AUTO [id number] 07:35:00* Test Item Value Reference Range Comments WHITE BLOOD CELL (test code=WBC) 9.80 x10 3/uL 4.5-11.0 RED BLOOD CELL (test code=RBC) 2.56 x10 6/uL 4.00-5.60 HEMOGLOBIN (test code=HGB) 7.2 g/dL 12.5-16.9 HEMATOCRIT (test code=HCT) 23.0 % 37.5-50.7 MEAN CELL VOLUME (test code=MCV) 89.8 fL 81.0-99.0 MEAN CELL HGB (test code=MCH) 28.1 pg 27.0-33.0 MEAN CELL HGB CONCETRATION (test code=MCHC) 31.3 g/dL 33.0-37.0 RED CELL DISTRIBUTION WIDTH CV (test code=RDW) 15.9 % 11.5-14.5 RED CELL DISTRIBUTION WIDTH SD (test code=RDW-SD) 51.8 fL 37.0-54.0 PLATELET COUNT (test code=PLT) 75 x10 3/uL 150-400 MEAN PLATELET VOLUME (test code=MPV) 12.5 fL 7.0-9.0 NEUTROPHIL % (test code=NT%) 80.1 % 56.0-77.0 IMMATURE GRANULOCYTE % (test code=IG%) 0.7 % 0.0-2.0 LYMPHOCYTE % (test code=LY%) 11.3 % 14.0-32.0 MONOCYTE % (test code=MO%) 7.6 % 4.8-9.0 EOSINOPHIL % (test code=EO%) 0.2 % 0.3-3.7 BASOPHIL % (test code=BA%) 0.1 % 0.0-2.0 NUCLEATED RBC % (test code=NRBC%) 0.3 % 0-0 NEUTROPHIL # (test code=NT#) 7.85 x10 3/uL 2.0-7.6 IMMATURE GRANULOCYTE # (test code=IG#) 0.07 x10 3/uL 0.00-0.03 LYMPHOCYTE # (test code=LY#) 1.11 x10 3/uL 1.0-3.8 MONOCYTE # (test code=MO#) 0.74 x10 3/uL 0.1-0.8 EOSINOPHIL # (test code=EO#) 0.02 x10 3/uL 0.0-0.2 BASOPHIL # (test code=BA#) 0.01 x10 3/uL 0.0-0.2 NUCLEATED RBC # (test code=NRBC#) 0.03 x10 3/uL 0.0-0.1 MANUAL DIFF REQUIRED (test code=MDIFF) NO COMMENTS: Daily while on HeparinPLT [id number] 07:35:00* Test Item Value Reference Range Comments PLATELET ESTIMATE (test code=PLTEST) THOUSAND ADEQUATE COMMENTS: Daily while on HeparinCBC W/AUTO [id number] 07:35:00* Test Item Value Reference Range Comments WHITE BLOOD CELL (test code=WBC) 9.80 x10 3/uL 4.5-11.0 RED BLOOD CELL (test code=RBC) 2.56 x10 6/uL 4.00-5.60 HEMOGLOBIN (test code=HGB) 7.2 g/dL 12.5-16.9 HEMATOCRIT (test code=HCT) 23.0 % 37.5-50.7 MEAN CELL VOLUME (test code=MCV) 89.8 fL 81.0-99.0 MEAN CELL HGB (test code=MCH) 28.1 pg 27.0-33.0 MEAN CELL HGB CONCETRATION (test code=MCHC) 31.3 g/dL 33.0-37.0 RED CELL DISTRIBUTION WIDTH CV (test code=RDW) 15.9 % 11.5-14.5 RED CELL DISTRIBUTION WIDTH SD (test code=RDW-SD) 51.8 fL 37.0-54.0 PLATELET COUNT (test code=PLT) 75 x10 3/uL 150-400 MEAN PLATELET VOLUME (test code=MPV) 12.5 fL 7.0-9.0 NEUTROPHIL % (test code=NT%) 80.1 % 56.0-77.0 IMMATURE GRANULOCYTE % (test code=IG%) 0.7 % 0.0-2.0 LYMPHOCYTE % (test code=LY%) 11.3 % 14.0-32.0 MONOCYTE % (test code=MO%) 7.6 % 4.8-9.0 EOSINOPHIL % (test code=EO%) 0.2 % 0.3-3.7 BASOPHIL % (test code=BA%) 0.1 % 0.0-2.0 NUCLEATED RBC % (test code=NRBC%) 0.3 % 0-0 NEUTROPHIL # (test code=NT#) 7.85 x10 3/uL 2.0-7.6 IMMATURE GRANULOCYTE # (test code=IG#) 0.07 x10 3/uL 0.00-0.03 LYMPHOCYTE # (test code=LY#) 1.11 x10 3/uL 1.0-3.8 MONOCYTE # (test code=MO#) 0.74 x10 3/uL 0.1-0.8 EOSINOPHIL # (test code=EO#) 0.02 x10 3/uL 0.0-0.2 BASOPHIL # (test code=BA#) 0.01 x10 3/uL 0.0-0.2 NUCLEATED RBC # (test code=NRBC#) 0.03 x10 3/uL 0.0-0.1 MANUAL DIFF REQUIRED (test code=MDIFF) NO COMMENTS: Daily while on HeparinPLT [id number] 07:35:00* Test Item Value Reference Range Comments PLATELET ESTIMATE (test code=PLTEST) THOUSAND ADEQUATE COMMENTS: Daily while on Heparin- XR CHEST 1 [id number] 07:20:00 FAX: Shalom Lisa I [phone] [place]: St: [facility] FAX: Candie Reinosoh (C Name: TORI GREGORY [facility] : 1945 Age/S: 72/M [address] [place] [address] Blvd Unit #: [id number] Loc: Prema[address] [place] [address] Phys: Candie Reinoso NP (Christy) Acct: [id number] Dis Date: Status: ADM IN PHONE #: [phone] Exam Date: 08/19/2018546 FAX #: [phone] Reason: Cardiac Surgery Post Op EXAMS: CPT CODE: [id number] XR CHEST 1 V 96174 - XR CHEST 1 V 08/19/2018 5:00 AM Ordering Physician: Candie Reinoso NP (Christy) CLINICAL HISTORY: Cardiac surgery postop; TECHNIQUE: A single AP view of the chest was obtained. COMPARISON: August 18, 2018. FINDINGS: Left- sided chest remains in place. Bilateral mild pleural effusions and biba silar/retrocardiac densities are again seen. The upper lungs are clear. No radiographically detectable pneumothorax is present. Cardiome namrata is noted. Mediastinal drains are in place. Median sternotomy wires are present. No acute osseous abnormality is evident. IMPRESSION: 1. Stable exam. SL: CY-H at 0720 Reported and signed by: Ben Mendoza M.D. CC: Shalom Guillermo MD; Candie Reinoso NP (Christy) Techn ologist: Milton Kuhn, RT(R); Maine Dash RT(R) Trnscrd Date/Jason e/By: 08/19/2018 (0720) : By: KortneyJY5 Orig Print D/T: S: 08/19/2018 (0732) PAGE 1 Signed Report COAGULATION TIME [id number] 06:46:00* Test Item Value Reference Range Comments COAGULATION TIME ACTIVATED (test code=ACT) 122 SECONDS 105-167 COAGULATION TIME [id number] 06:46:00* Test Item Value Reference Range Comments COAGULATION TIME ACTIVATED (test code=ACT) 564 SECONDS 105-167 COAGULATION TIME [id number] 06:46:00* Test Item Value Reference Range Comments COAGULATION TIME ACTIVATED (test code=ACT) 521 SECONDS 105-167 COAGULATION TIME [id number] 06:46:00* Test Item Value Reference Range Comments COAGULATION TIME ACTIVATED (test code=ACT) 499 SECONDS 105-167 COAGULATION TIME [id number] 06:42:00* Test Item Value Reference Range Comments COAGULATION TIME ACTIVATED (test code=ACT) 532 SECONDS 105-167 COAGULATION TIME [id number] 06:42:00* Test Item Value Reference Range Comments COAGULATION TIME ACTIVATED (test code=ACT) 109 SECONDS 105-167 [id number] 21:28:00* Test Item Value Reference Range Comments GLUBED (test code=GLUBED) 179 MG/DL 70-110 Performed by certified gas station operator at [facility] BASIC METABOLIC [id number] 17:20:00* Test Item Value Reference Range Comments SODIUM (test code=NA) 132 mEq/L 134-147 POTASSIUM (test code=K) 4.7 mEq/L 3.4-5.0 CHLORIDE (test code=CL) 105 mEq/L 100-108 CARBON DIOXIDE (test code=CO2) 23 mEq/L 21-33 ANION GAP (test code=GAP) 9 0-20 GLUCOSE (test code=GLU) 196 mg/dL 70-110 BLOOD UREA NITROGEN (test code=BUN) 40 mg/dL 7-18 GLOMERULAR FILTRATION RATE (test code=GFR) 49.8 70-80 Units of measure=ml/min/1.73 m2 CREATININE (test code=CREAT) 1.4 mg/dL 0.6-1.3 CALCIUM (test code=CA) 7.8 mg/dL 8.0-10.5 [id number] 17:20:00* Test Item Value Reference Range Comments MAGNESIUM (test code=MAG) 3.00 mg/dL 1.8-2.4 [id number] 17:19:00* Test Item Value Reference Range Comments GLUBED (test code=GLUBED) 205 MG/DL 70-110 Performed by certified gas station operator at [facility] [id number] 12:16:00* Test Item Value Reference Range Comments GLUBED (test code=GLUBED) 210 MG/DL 70-110 Performed by certified gas station operator at [facility] [id number] 10:22:00* Test Item Value Reference Range Comments GLUBED (test code=GLUBED) 249 MG/DL 70-110 Performed by certified gas station operator at [facility] - XR CHEST 1 [id number] 08:18:00 FAX: Shalom Lisa I [phone] [place]: St: ADM FAX: Candie Reinoso (C Name: UZIEL HENDERSONELVIABASIL 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 FINDINGS: Significant improvement in bilateral lung infiltrates. Heart is enlarged. Left chest tube position is stable, no pneumothorax. Right IJ venous sheath has been removed. IMPRESSION: 1. Improved CHF/pulmonary edema. 2. Interval removal of central venous catheter. 3. Stable left chest tube, no pneumothorax. SL:01 at 0818 Reported and signed by: William Perez M.D. CC: Shalom Guillermo MD; Candie Reinoso NP (Christy) Technologist: Maya Davidson RT(R); Yady Aldrich, RT(R) Trnscrd Date/Time/By: 08/18/2018 (0818) : By: Shilpi Orig Print D/T: S: 08/18/2018 (8903) PAGE 1 Signed Report BASIC METABOLIC [id number] 04:33:00* Test Item Value Reference Range Comments SODIUM (test code=NA) 134 mEq/L 134-147 POTASSIUM (test code=K) 5.4 mEq/L 3.4-5.0 CHLORIDE (test code=CL) 103 mEq/L 100-108 CARBON DIOXIDE (test code=CO2) 21 mEq/L 21-33 ANION GAP (test code=GAP) 15 0-20 GLUCOSE (test code=GLU) 212 mg/dL 70-110 BLOOD UREA NITROGEN (test code=BUN) 36 mg/dL 7-18 GLOMERULAR FILTRATION RATE (test code=GFR) 46.0 70-80 Units of measure=ml/min/1.73 m2 CREATININE (test code=CREAT) 1.5 mg/dL 0.6-1.3 CALCIUM (test code=CA) 7.9 mg/dL 8.0-10.5 [id number] 04:33:00* Test Item Value Reference Range Comments MAGNESIUM (test code=MAG) 2.90 mg/dL 1.8-2.4 CBC W/AUTO [id number] 04:17:00* Test Item Value Reference Range Comments WHITE BLOOD CELL (test code=WBC) 12.61 x10 3/uL 4.5-11.0 RED BLOOD CELL (test code=RBC) 2.66 x10 6/uL 4.00-5.60 HEMOGLOBIN (test code=HGB) 7.4 g/dL 12.5-16.9 HEMATOCRIT (test code=HCT) 24.7 % 37.5-50.7 MEAN CELL VOLUME (test code=MCV) 92.9 fL 81.0-99.0 MEAN CELL HGB (test code=MCH) 27.8 pg 27.0-33.0 MEAN CELL HGB CONCETRATION (test code=MCHC) 30.0 g/dL 33.0-37.0 RED CELL DISTRIBUTION WIDTH CV (test code=RDW) 16.2 % 11.5-14.5 RED CELL DISTRIBUTION WIDTH SD (test code=RDW-SD) 55.5 fL 37.0-54.0 PLATELET COUNT (test code=PLT) 122 x10 3/uL 150-400 MEAN PLATELET VOLUME (test code=MPV) 12.1 fL 7.0-9.0 NEUTROPHIL % (test code=NT%) 77.6 % 56.0-77.0 IMMATURE GRANULOCYTE % (test code=IG%) 0.6 % 0.0-2.0 LYMPHOCYTE % (test code=LY%) 10.6 % 14.0-32.0 MONOCYTE % (test code=MO%) 11.1 % 4.8-9.0 EOSINOPHIL % (test code=EO%) 0.0 % 0.3-3.7 BASOPHIL % (test code=BA%) 0.1 % 0.0-2.0 NUCLEATED RBC % (test code=NRBC%) 0.2 % 0-0 NEUTROPHIL # (test code=NT#) 9.79 x10 3/uL 2.0-7.6 IMMATURE GRANULOCYTE # (test code=IG#) 0.07 x10 3/uL 0.00-0.03 LYMPHOCYTE # (test code=LY#) 1.34 x10 3/uL 1.0-3.8 MONOCYTE # (test code=MO#) 1.40 x10 3/uL 0.1-0.8 EOSINOPHIL # (test code=EO#) 0.00 x10 3/uL 0.0-0.2 BASOPHIL # (test code=BA#) 0.01 x10 3/uL 0.0-0.2 NUCLEATED RBC # (test code=NRBC#) 0.02 x10 3/uL 0.0-0.1 MANUAL DIFF REQUIRED (test code=MDIFF) NO COMMENTS: Daily while on [id number] 21:13:00* Test Item Value Reference Range Comments GLUBED (test code=GLUBED) 201 MG/DL 70-110 Performed by certified gas station operator at [facility] [id number] 19:10:00* Test Item Value Reference Range Comments GLUBED (test code=GLUBED) 224 MG/DL 70-110 Performed by certified gas station operator at [facility] [id number] 12:14:00* Test Item Value Reference Range Comments GLUBED (test code=GLUBED) 197 MG/DL 70-110 Performed by certified gas station operator at [facility] - XR CHEST 1 [id number] 08:44:00 FAX: Shalom Lisa I [phone] [place]: St: ADM FAX: Candie Reinoso (C Name: TORI GREGORY [facility] : 1945 Age/S: 72/M [address] [place] [address] Unit #: [id number] Loc: [address] [address] Phys: Candie Reinoso NP (Christy) Acct: [id number] Dis Date: Status: ADM IN PHONE #: [phone] Exam Date: 08/17/2018813 FAX #: [phone] Reason: Cardiac Surgery Post Op EXAMS: CPT CODE: [id number] XR CHEST 1 V 38346 CHEST, SINGLE VIEW HISTORY: Congestive heart failure, postop cardiac surgery Comparison made to 08/16/18. FINDINGS: Heart remains enlarged. Central pulmonary vascularity and interstitial lung markings remain prominent. Basilar atelectasis shows interval worsening. There has been interval extubation and removal of nasogastric tube. Right IJ venous sheath position is stable. Left chest tube position is stable without significant pneumothorax. IMPRESSION: 1. Interval extubation and removal of nasogastric tube. 2. Stable left chest tube, no pneumothorax. 3. Cardiomegaly with pulmonary vascular congestion and interstitial edema, stable. 4. Worsening of postoperative lung base atelectasis. SL:01 at 0844 Reported and signed by: William Perez M.D. CC: Shalom Guillermo MD; Candie Reinoso NP (Christy) Technologist: Maya Davidson, RT(R); Yady Aldrich, RT(R) Trnscrd Date/Time/By: 08/17/2018 (0844) : By: Shilpi Orig Print D/T: S: 08/17/2018 (0847) PAGE 1 Signed Report [id number] 07:33:00* Test Item Value Reference Range Comments GLUBED (test code=GLUBED) 114 MG/DL 70-110 Performed by certified gas station operator at [facility] [id number] 07:03:00* Test Item Value Reference Range Comments GLUBED (test code=GLUBED) 108 MG/DL 70-110 Performed by certified gas station operator at [facility] [id number] 06:17:00* Test Item Value Reference Range Comments GLUBED (test code=GLUBED) 157 MG/DL 70-110 Performed by certified gas station operator at [facility] BLOOD GAS W/[id number] 05:51:00* Test Item Value Reference Range Comments ARTERIAL BLOOD GAS PH (test code=PHA) 7.410 7.35-7.45 ARTERIAL BLOOD GAS PCO2 (test code=PCO2A) 37.5 mmHg 35-45 ARTERIAL BLOOD GAS PO2 (test code=PO2A) 70 mmHg 80-100 BICARBONATE TOTAL HCO3 (test code=HCO3) 23.7 mmol/L 22.0-26.0 BASE EXCESS (test code=MASHA) -1.0 mmol/L -4-4 ABG O2 SATURATION (test code=SATA) 94 % 90-100 ABG DELIVERY (test code=HOLLAND) Cannula ABG TEMPERATURE (test code=TEMPA) 99.0 F ABG SITE (test code=SITEA) Art line IONIZED CALCIUM (test code=CAIABG) 1.12 mmoL/L 1.15-1.35 SODIUM BEDSIDE (test code=NAB) 143 MEQ/L 134-147 POTASSIUM BEDSIDE (test code=KBD) 4.6 MEQ/L 4.5-7.0 ISTAT BLOOD [id number] 05:45:00* Test Item Value Reference Range Comments ARTERIAL BLOOD GAS PH (test code=PHA) 7.401 7.35-7.45 ARTERIAL BLOOD GAS PCO2 (test code=PCO2A) 36.1 mmHg 35-45 ARTERIAL BLOOD GAS PO2 (test code=PO2A) 79 mmHg 80-100 BICARBONATE TOTAL HCO3 (test code=HCO3) 22.4 mmol/L 22.0-26.0 BASE EXCESS (test code=MASHA) -2.0 mmol/L -4-4 ABG O2 SATURATION (test code=SATA) 96 % 90-100 ABG DELIVERY (test code=HOLLAND) Cannula ABG TEMPERATURE (test code=TEMPA) 99.0 F ABG SITE (test code=SITEA) Art line POC LACTIC ACID (test code=POCLAC) 1.0 mmol/L 0.9-1.7 BASIC METABOLIC [id number] 04:42:00* Test Item Value Reference Range Comments SODIUM (test code=NA) 143 mEq/L 134-147 POTASSIUM (test code=K) 4.6 mEq/L 3.4-5.0 CHLORIDE (test code=CL) 112 mEq/L 100-108 CARBON DIOXIDE (test code=CO2) 26 mEq/L 21-33 ANION GAP (test code=GAP) 10 0-20 GLUCOSE (test code=GLU) 164 mg/dL 70-110 BLOOD UREA NITROGEN (test code=BUN) 20 mg/dL 7-18 GLOMERULAR FILTRATION RATE (test code=GFR) 73.5 70-80 Units of measure=ml/min/1.73 m2 CREATININE (test code=CREAT) 1.0 mg/dL 0.6-1.3 CALCIUM (test code=CA) 7.7 mg/dL 8.0-10.5 COMMENTS: POD #1HEPATIC FUNCTION [id number] 04:42:00* Test Item Value Reference Range Comments TOTAL PROTEIN (test code=PROT) 5.9 g/dL 6.4-8.2 ALBUMIN (test code=ALB) 3.60 g/dL 3.4-5.0 BILIRUBIN TOTAL (test code=BILT) 0.30 mg/dL 0.0-1.0 BILIRUBIN DIRECT (test code=BILD) 0.10 MG/DL 0.0-0.30 BILIRUBIN INDIRECT (test code=BILIND) 0.20 MG/DL SGOT/AST (test code=AST) 50 IUnit/L 15-37 SGPT/ALT (test code=ALT) 20 IUnit/L 15-65 ALKALINE PHOSPHATASE TOTAL (test code=ALKP) 33 IUnit/L 20-125 COMMENTS: POD #[id number] 04:42:00* Test Item Value Reference Range Comments MAGNESIUM (test code=MAG) 2.90 mg/dL 1.8-2.4 COMMENTS: POD #1CBC W/AUTO [id number] 04:25:00* Test Item Value Reference Range Comments WHITE BLOOD CELL (test code=WBC) 10.66 x10 3/uL 4.5-11.0 RED BLOOD CELL (test code=RBC) 2.46 x10 6/uL 4.00-5.60 HEMOGLOBIN (test code=HGB) 6.9 g/dL 12.5-16.9 HEMATOCRIT (test code=HCT) 21.9 % 37.5-50.7 MEAN CELL VOLUME (test code=MCV) 89.0 fL 81.0-99.0 MEAN CELL HGB (test code=MCH) 28.0 pg 27.0-33.0 MEAN CELL HGB CONCETRATION (test code=MCHC) 31.5 g/dL 33.0-37.0 RED CELL DISTRIBUTION WIDTH CV (test code=RDW) 16.2 % 11.5-14.5 RED CELL DISTRIBUTION WIDTH SD (test code=RDW-SD) 52.5 fL 37.0-54.0 PLATELET COUNT (test code=PLT) 129 x10 3/uL 150-400 MEAN PLATELET VOLUME (test code=MPV) 10.6 fL 7.0-9.0 NEUTROPHIL % (test code=NT%) 85.0 % 56.0-77.0 IMMATURE GRANULOCYTE % (test code=IG%) 0.4 % 0.0-2.0 LYMPHOCYTE % (test code=LY%) 5.9 % 14.0-32.0 MONOCYTE % (test code=MO%) 8.7 % 4.8-9.0 EOSINOPHIL % (test code=EO%) 0.0 % 0.3-3.7 BASOPHIL % (test code=BA%) 0.0 % 0.0-2.0 NUCLEATED RBC % (test code=NRBC%) 0.0 % 0-0 NEUTROPHIL # (test code=NT#) 9.06 x10 3/uL 2.0-7.6 IMMATURE GRANULOCYTE # (test code=IG#) 0.04 x10 3/uL 0.00-0.03 LYMPHOCYTE # (test code=LY#) 0.63 x10 3/uL 1.0-3.8 MONOCYTE # (test code=MO#) 0.93 x10 3/uL 0.1-0.8 EOSINOPHIL # (test code=EO#) 0.00 x10 3/uL 0.0-0.2 BASOPHIL # (test code=BA#) 0.00 x10 3/uL 0.0-0.2 NUCLEATED RBC # (test code=NRBC#) 0.00 x10 3/uL 0.0-0.1 MANUAL DIFF REQUIRED (test code=MDIFF) NO COMMENTS: Daily while on [id number] 02:33:00* Test Item Value Reference Range Comments GLUBED (test code=GLUBED) 173 MG/DL 70-110 Performed by certified gas station operator at [facility] [id number] 00:28:00* Test Item Value Reference Range Comments GLUBED (test code=GLUBED) 199 MG/DL 70-110 Performed by certified gas station operator at [facility] [id number] 00:25:00* Test Item Value Reference Range Comments POTASSIUM (test code=K) 4.8 mEq/L 3.4-5.0 HGB [id number] 00:21:00* Test Item Value Reference Range Comments HEMOGLOBIN (test code=HGB) 6.8 g/dL 12.5-16.9 HEMATOCRIT (test code=HCT) 21.9 % 37.5-50.7 [id number] 22:46:00* Test Item Value Reference Range Comments GLUBED (test code=GLUBED) 232 MG/DL 70-110 Performed by certified gas station operator at [facility] [id number] 20:37:00* Test Item Value Reference Range Comments GLUBED (test code=GLUBED) 229 MG/DL 70-110 Performed by certified gas station operator at [facility] [id number] 19:39:00* Test Item Value Reference Range Comments GLUBED (test code=GLUBED) 206 MG/DL 70-110 Performed by certified gas station operator at [facility] [id number] 19:27:00* Test Item Value Reference Range Comments GLUBED (test code=GLUBED) 168 MG/DL 70-110 Performed by certified gas station operator at [facility] [id number] 19:27:00* Test Item Value Reference Range Comments GLUBED (test code=GLUBED) 203 MG/DL 70-110 Performed by certified gas station operator at [facility] [id number] 19:27:00* Test Item Value Reference Range Comments GLUBED (test code=GLUBED) 229 MG/DL 70-110 Performed by certified gas station operator at [facility] [id number] 19:27:00* Test Item Value Reference Range Comments GLUBED (test code=GLUBED) 170 MG/DL 70-110 Performed by certified gas station operator at [facility] [id number] 19:27:00* Test Item Value Reference Range Comments GLUBED (test code=GLUBED) 154 MG/DL 70-110 Performed by certified gas station operator at [facility] [id number] 19:27:00* Test Item Value Reference Range Comments GLUBED (test code=GLUBED) 176 MG/DL 70-110 Performed by certified gas station operator at [facility] [id number] 19:27:00* Test Item Value Reference Range Comments GLUBED (test code=GLUBED) 148 MG/DL 70-110 Performed by certified gas station operator at [facility] [id number] 18:46:00* Test Item Value Reference Range Comments POTASSIUM (test code=K) 4.2 mEq/L 3.4-5.0 HGB [id number] 18:42:00* Test Item Value Reference Range Comments HEMOGLOBIN (test code=HGB) 7.3 g/dL 12.5-16.9 HEMATOCRIT (test code=HCT) 23.2 % 37.5-50.7 ISTAT BLOOD [id number] 18:39:00* Test Item Value Reference Range Comments ARTERIAL BLOOD GAS PH (test code=PHA) 7.338 7.35-7.45 ARTERIAL BLOOD GAS PCO2 (test code=PCO2A) 31.4 mmHg 35-45 ARTERIAL BLOOD GAS PO2 (test code=PO2A) 91 mmHg 80-100 BICARBONATE TOTAL HCO3 (test code=HCO3) 16.9 mmol/L 22.0-26.0 BASE EXCESS (test code=MASHA) -9.0 mmol/L -4-4 ABG O2 SATURATION (test code=SATA) 97 % 90-100 FIO2 (test code=FIO2A) 40 % ABG DELIVERY (test code=HOLLAND) Venti Performed by certified gas station operator at [facility] ABG TEMPERATURE (test code=TEMPA) 98.0 F ABG SITE (test code=SITEA) Art line PREDICTED AA GRADIENT (test code=AP) 64 PREDICTED PO2 (test code=OP) 183 a/A RATIO (test code=RATIO) 0.37 POC LACTIC ACID (test code=POCLAC) 6.0 mmol/L 0.9-1.7 A-A GRADIENT (test code=AAGRADE) 157 [id number] 16:30:00* Test Item Value Reference Range Comments GLUBED (test code=GLUBED) 193 MG/DL 70-110 Performed by certified gas station operator at [facility] BLOOD GAS W/[id number] 16:15:00* Test Item Value Reference Range Comments ARTERIAL BLOOD GAS PH (test code=PHA) 7.375 7.35-7.45 ARTERIAL BLOOD GAS PCO2 (test code=PCO2A) 38.6 mmHg 35-45 ARTERIAL BLOOD GAS PO2 (test code=PO2A) 87 mmHg 80-100 BICARBONATE TOTAL HCO3 (test code=HCO3) 22.7 mmol/L 22.0-26.0 BASE EXCESS (test code=MASHA) -3.0 mmol/L -4-4 ABG O2 SATURATION (test code=SATA) 97 % 90-100 FIO2 (test code=FIO2A) % ABG DELIVERY (test code=HOLLAND) Vent ABG VENT MODE (test code=MODEA) Other ABG PRESSURE SUPPORT (test code=PSABG) 10 cmH2O Performed by certified gas station operator at [facility] ABG TEMPERATURE (test code=TEMPA) 98.0 F ABG SITE (test code=SITEA) Art line IONIZED CALCIUM (test code=CAIABG) 1.14 mmoL/L 1.15-1.35 SODIUM BEDSIDE (test code=NAB) 144 MEQ/L 134-147 POTASSIUM BEDSIDE (test code=KBD) 4.0 MEQ/L 4.5-7.0 - XR CHEST 1 [id number] 14:29:00 FAX: Shalom Lisa I [phone] [place]: St: ADM FAX: Candie Reinoso (C Name: TORI GREGORY [facility] : 1945 Age/S: 72/M [address] [place] [address] Blvd Unit #: [id number] Loc: [address] [place] [address] Phys: Candie Reinoso NP (Christy) Acct: [id number] Dis Date: Status: ADM IN PHONE #: [phone] Exam Date: 08/16/2018 1427 FAX #: [phone] Reason: Cardiac Surgery Post Op EXAMS: CPT CODE: [id number] XR CHEST 1 V 42912 1 VIEW CXR. PORTABLE EXAM 1:57 PM HISTORY: Postop cardiac surgery. COMPARISON: 08/08/2018 chest x-ray. Right IJ central line, ET tube and NG tube all in apparent good position. Stable cardiomegaly. Shallow inspiration which does accentuate pulmonary markings. No pneumothorax. No appreciable pleural fluid collections. IMPRESSION: Shallow inspiration. Support devices appear well-positioned. Otherwise normal exam. END OF IMPRESSION SL: [id number] at 1429 Reported and signed by: Jesus Marie M.D. CC: Shalom Guillermo MD; Candie Reinoso NP (Christy) Technologist: RT Deuce(Myriam) Trnscrd Date/Time/By: 08/16/2018 (9036) : By: Teodoro Orig Print D/T: S: 08/16/2018 (5943) PAGE 1 Signed Report ARTERIAL BLOOD [id number] 14:27:00* Test Item Value Reference Range Comments ARTERIAL BLOOD GAS PH (test code=PHA) 7.399 7.35-7.45 ARTERIAL BLOOD GAS PCO2 (test code=PCO2A) 37.2 mmHg 35-45 ARTERIAL BLOOD GAS PO2 (test code=PO2A) 81 mmHg 80-100 BICARBONATE TOTAL HCO3 (test code=HCO3) 23.1 mmol/L 22.0-26.0 BASE EXCESS (test code=MASHA) -2.0 mmol/L -4-4 ABG O2 SATURATION (test code=SATA) 96 % 90-100 FIO2 (test code=FIO2A) 40 % ABG DELIVERY (test code=HOLLAND) Vent ABG VENT MODE (test code=MODEA) AC v con ABG VENT RESP RATE (test code=RRA) 16 /MIN ABG TIDAL VOLUME (test code=TVA) 550 ml ABG PEEP (test code=PEEPA) 5 cmH2O Performed by certified gas station operator at [facility] ABG TEMPERATURE (test code=TEMPA) 98.0 F ABG SITE (test code=SITEA) Art line PREDICTED AA GRADIENT (test code=AP) 62 PREDICTED PO2 (test code=OP) 178 a/A RATIO (test code=RATIO) 0.34 TCO2 ARTERIAL (test code=TCO2A) 24 A-A GRADIENT (test code=AAGRADE) 160 [id number] 14:12:00* Test Item Value Reference Range Comments GLUBED (test code=GLUBED) 163 MG/DL 70-110 Performed by certified gas station operator at [facility] BASIC METABOLIC [id number] 13:26:00* Test Item Value Reference Range Comments SODIUM (test code=NA) 145 mEq/L 134-147 POTASSIUM (test code=K) 3.5 mEq/L 3.4-5.0 CHLORIDE (test code=CL) 114 mEq/L 100-108 CARBON DIOXIDE (test code=CO2) 21 mEq/L 21-33 ANION GAP (test code=GAP) 14 0-20 GLUCOSE (test code=GLU) 178 mg/dL 70-110 BLOOD UREA NITROGEN (test code=BUN) 24 mg/dL 7-18 GLOMERULAR FILTRATION RATE (test code=GFR) 54.3 70-80 Units of measure=ml/min/1.73 m2 CREATININE (test code=CREAT) 1.3 mg/dL 0.6-1.3 CALCIUM (test code=CA) 7.1 mg/dL 8.0-10.5 COMMENTS: On [id number] 13:26:00* Test Item Value Reference Range Comments MAGNESIUM (test code=MAG) 3.90 mg/dL 1.8-2.4 COMMENTS: On arrivalPROTHROMBIN [id number] 13:12:00* Test Item Value Reference Range Comments PROTHROMBIN TIME PATIENT (test code=PTP) 16.1 SECONDS 9.3-12.9 INTERNATIONAL NORMAL RATIO (test code=INR) 1.4 0.8-1.2 TARGET INR BY INDICATION Indication INR1. Prophylaxis of venous thrombosis 2.0 - 3.0 (orthopedic surgery), Prophylaxis of venous thrombosis (other than high-risk surgery), Treatment of Deep Vein Thrombosis/Pulmonary Embolism, Prevention of systemic embolism - Tissue heart valves, Acute Myocardial Infarction (to prevent systemic embolism), Valvular heart disease, Atrial Fibrillation, Bileaflet mechanical valve in aortic position.2. Mechanical prosthetic valves (high risk), 2.5 - 3.5 Presence of Lupus Anticoagulant or Antiphospholipid Antibodies, Prevention of systemic embolism - Acute Myocardial Infarction (to prevent recurrent infarct). COMMENTS: On arrivalTHROMBOPLASTIN TIME [id number] 13:12:00* Test Item Value Reference Range Comments THROMBOPLASTIN TIME PARTIAL (test code=PTT) 30.8 Seconds 25.0-39.5 Therapeutic Range: 61.8-83.8 Sec Effective 08/27/2013 COMMENTS: On arrivalISTAT BLOOD [id number] 13:04:00* Test Item Value Reference Range Comments ARTERIAL BLOOD GAS PH (test code=PHA) 7.275 7.35-7.45 ARTERIAL BLOOD GAS PCO2 (test code=PCO2A) 35.1 mmHg 35-45 ARTERIAL BLOOD GAS PO2 (test code=PO2A) 109 mmHg 80-100 BICARBONATE TOTAL HCO3 (test code=HCO3) 16.4 mmol/L 22.0-26.0 BASE EXCESS (test code=MASHA) -11.0 mmol/L -4-4 ABG O2 SATURATION (test code=SATA) 98 % 90-100 FIO2 (test code=FIO2A) 50 % ABG DELIVERY (test code=HOLLAND) Vent ABG VENT MODE (test code=MODEA) AC v con ABG VENT RESP RATE (test code=RRA) 16 /MIN ABG TIDAL VOLUME (test code=TVA) 500 ml ABG PEEP (test code=PEEPA) 5 cmH2O Performed by certified gas station operator at [facility] ABG TEMPERATURE (test code=TEMPA) 98.0 F ABG SITE (test code=SITEA) Art line PREDICTED AA GRADIENT (test code=AP) 81 PREDICTED PO2 (test code=OP) 233 a/A RATIO (test code=RATIO) 0.35 POC LACTIC ACID (test code=POCLAC) 4.9 mmol/L 0.9-1.7 A-A GRADIENT (test code=AAGRADE) 205 CBC W/AUTO [id number] 13:02:00* Test Item Value Reference Range Comments WHITE BLOOD CELL (test code=WBC) 18.64 x10 3/uL 4.5-11.0 RED BLOOD CELL (test code=RBC) 2.83 x10 6/uL 4.00-5.60 HEMOGLOBIN (test code=HGB) 8.0 g/dL 12.5-16.9 HEMATOCRIT (test code=HCT) 25.5 % 37.5-50.7 MEAN CELL VOLUME (test code=MCV) 90.1 fL 81.0-99.0 MEAN CELL HGB (test code=MCH) 28.3 pg 27.0-33.0 MEAN CELL HGB CONCETRATION (test code=MCHC) 31.4 g/dL 33.0-37.0 RED CELL DISTRIBUTION WIDTH CV (test code=RDW) 15.7 % 11.5-14.5 RED CELL DISTRIBUTION WIDTH SD (test code=RDW-SD) 51.5 fL 37.0-54.0 PLATELET COUNT (test code=PLT) 162 x10 3/uL 150-400 MEAN PLATELET VOLUME (test code=MPV) 10.8 fL 7.0-9.0 NEUTROPHIL % (test code=NT%) 83.7 % 56.0-77.0 IMMATURE GRANULOCYTE % (test code=IG%) 1.3 % 0.0-2.0 LYMPHOCYTE % (test code=LY%) 9.5 % 14.0-32.0 MONOCYTE % (test code=MO%) 3.5 % 4.8-9.0 EOSINOPHIL % (test code=EO%) 1.8 % 0.3-3.7 BASOPHIL % (test code=BA%) 0.2 % 0.0-2.0 NUCLEATED RBC % (test code=NRBC%) 0.0 % 0-0 NEUTROPHIL # (test code=NT#) 15.60 x10 3/uL 2.0-7.6 IMMATURE GRANULOCYTE # (test code=IG#) 0.25 x10 3/uL 0.00-0.03 LYMPHOCYTE # (test code=LY#) 1.77 x10 3/uL 1.0-3.8 MONOCYTE # (test code=MO#) 0.65 x10 3/uL 0.1-0.8 EOSINOPHIL # (test code=EO#) 0.34 x10 3/uL 0.0-0.2 BASOPHIL # (test code=BA#) 0.03 x10 3/uL 0.0-0.2 NUCLEATED RBC # (test code=NRBC#) 0.00 x10 3/uL 0.0-0.1 MANUAL DIFF REQUIRED (test code=MDIFF) NO COMMENTS: On arrivalBLOOD GAS W/[id number] 12:58:00* Test Item Value Reference Range Comments ARTERIAL BLOOD GAS PH (test code=PHA) 7.280 7.35-7.45 ARTERIAL BLOOD GAS PCO2 (test code=PCO2A) 38.4 mmHg 35-45 ARTERIAL BLOOD GAS PO2 (test code=PO2A) 92 mmHg 80-100 BICARBONATE TOTAL HCO3 (test code=HCO3) 18.1 mmol/L 22.0-26.0 BASE EXCESS (test code=MASHA) -9.0 mmol/L -4-4 ABG O2 SATURATION (test code=SATA) 96 % 90-100 FIO2 (test code=FIO2A) 50 % ABG DELIVERY (test code=HOLLAND) Vent ABG VENT MODE (test code=MODEA) AC v con ABG VENT RESP RATE (test code=RRA) 16 /MIN ABG TIDAL VOLUME (test code=TVA) 500 ml ABG PEEP (test code=PEEPA) 5 cmH2O Performed by certified gas station operator at [facility] ABG TEMPERATURE (test code=TEMPA) 98.0 F ABG SITE (test code=SITEA) Art line PREDICTED AA GRADIENT (test code=AP) 80 PREDICTED PO2 (test code=OP) 230 a/A RATIO (test code=RATIO) 0.30 IONIZED CALCIUM (test code=CAIABG) 1.03 mmoL/L 1.15-1.35 A-A GRADIENT (test code=AAGRADE) 218 SODIUM BEDSIDE (test code=NAB) 143 MEQ/L 134-147 POTASSIUM BEDSIDE (test code=KBD) 3.8 MEQ/L 4.5-7.0 [id number] 12:53:00* Test Item Value Reference Range Comments GLUBED (test code=GLUBED) 159 MG/DL 70-110 Performed by certified gas station operator at [facility] PROTHROMBIN [id number] 12:38:00* Test Item Value Reference Range Comments PROTHROMBIN TIME PATIENT (test code=PTP) 16.7 SECONDS 9.3-12.9 INTERNATIONAL NORMAL RATIO (test code=INR) 1.5 0.8-1.2 TARGET INR BY INDICATION Indication INR1. Prophylaxis of venous thrombosis 2.0 - 3.0 (orthopedic surgery), Prophylaxis of venous thrombosis (other than high-risk surgery), Treatment of Deep Vein Thrombosis/Pulmonary Embolism, Prevention of systemic embolism - Tissue heart valves, Acute Myocardial Infarction (to prevent systemic embolism), Valvular heart disease, Atrial Fibrillation, Bileaflet mechanical valve in aortic position.2. Mechanical prosthetic valves (high risk), 2.5 - 3.5 Presence of Lupus Anticoagulant or Antiphospholipid Antibodies, Prevention of systemic embolism - Acute Myocardial Infarction (to prevent recurrent infarct). THROMBOPLASTIN TIME [id number] 12:38:00* Test Item Value Reference Range Comments THROMBOPLASTIN TIME PARTIAL (test code=PTT) 34.6 Seconds 25.0-39.5 Therapeutic Range: 61.8-83.8 Sec Effective 08/27/2013 HGB [id number] 12:11:00* Test Item Value Reference Range Comments HEMOGLOBIN (test code=HGB) 8.9 g/dL 12.5-16.9 HEMATOCRIT (test code=HCT) 27.8 % 37.5-50.7 PLATELET [id number] 12:11:00* Test Item Value Reference Range Comments PLATELET COUNT (test code=PLT) 149 x10 3/uL 150-400 POC ARTERIAL BLOOD [id number] 11:42:00* Test Item Value Reference Range Comments POC ARTERIAL BLOOD GAS PH (test code=POCPHA) 7.348 7.35-7.45 POC ARTERIAL BLOOD GAS PCO2 (test code=CYOVOF9D) 34.2 mmHg 35.0-45 POC TCO2 ARTERIAL (test code=POCTCO2) 19.8 POC ARTERIAL BLOOD GAS PO2 (test code=SOHAA0G) 320.4 mmHg 80-100.0 POC HCO3 ARTERIAL (test code=VNAUEV0G) 18.8 MMOL/L 22.0-26.0 POC BASE EXCESS (test code=POCBEA) -6.2 MMOL/L -4.0-4.0 POC O2 SATURATION (test code=POCO2S) 99.9 % 90-100 [id number] 11:42:00* Test Item Value Reference Range Comments SODIUM (test code=NA/ABG) MEQ/L 134-147 [id number] 11:42:00* Test Item Value Reference Range Comments POTASSIUM (test code=K/ABG) MEQ/L 3.4-5.0 [id number] 11:42:00* Test Item Value Reference Range Comments CHLORIDE (test code=CL/ABG) MEQ/L 100-108 CREATININE [id number] 11:42:00* Test Item Value Reference Range Comments CREATININE ABG (test code=CREAABG) mg/dL 0.8-1.3 [id number] 11:42:00* Test Item Value Reference Range Comments HEMOGLOBIN (test code=HGB/ABG) G/DL 12.5-16.9 [id number] 11:42:00* Test Item Value Reference Range Comments HEMATOCRIT (test code=HCT/ABG) % 37.5-50.7 POC IONIZED [id number] 11:42:00* Test Item Value Reference Range Comments POC IONIZED CALCIUM (test code=POCCA) MMOL/L 1.12-1.32 POC [id number] 11:42:00* Test Item Value Reference Range Comments POC GLUCOSE (test code=POCGLU) MG/DL 70-110 POC ARTERIAL BLOOD [id number] 11:42:00* Test Item Value Reference Range Comments POC ARTERIAL BLOOD GAS PH (test code=POCPHA) 7.348 7.35-7.45 POC ARTERIAL BLOOD GAS PCO2 (test code=EITOEF9A) 34.2 mmHg 35.0-45 POC TCO2 ARTERIAL (test code=POCTCO2) 19.8 POC ARTERIAL BLOOD GAS PO2 (test code=EFGYL1C) 320.4 mmHg 80-100.0 POC HCO3 ARTERIAL (test code=MSINWF3V) 18.8 MMOL/L 22.0-26.0 POC BASE EXCESS (test code=POCBEA) -6.2 MMOL/L -4.0-4.0 POC O2 SATURATION (test code=POCO2S) 99.9 % 90-100 [id number] 11:42:00* Test Item Value Reference Range Comments SODIUM (test code=NA/ABG) 141 MEQ/L 134-147 [id number] 11:42:00* Test Item Value Reference Range Comments POTASSIUM (test code=K/ABG) MEQ/L 3.4-5.0 [id number] 11:42:00* Test Item Value Reference Range Comments CHLORIDE (test code=CL/ABG) MEQ/L 100-108 CREATININE [id number] 11:42:00* Test Item Value Reference Range Comments CREATININE ABG (test code=CREAABG) mg/dL 0.8-1.3 [id number] 11:42:00* Test Item Value Reference Range Comments HEMOGLOBIN (test code=HGB/ABG) G/DL 12.5-16.9 [id number] 11:42:00* Test Item Value Reference Range Comments HEMATOCRIT (test code=HCT/ABG) % 37.5-50.7 POC IONIZED [id number] 11:42:00* Test Item Value Reference Range Comments POC IONIZED CALCIUM (test code=POCCA) MMOL/L 1.12-1.32 POC [id number] 11:42:00* Test Item Value Reference Range Comments POC GLUCOSE (test code=POCGLU) MG/DL 70-110 POC ARTERIAL BLOOD [id number] 11:42:00* Test Item Value Reference Range Comments POC ARTERIAL BLOOD GAS PH (test code=POCPHA) 7.348 7.35-7.45 POC ARTERIAL BLOOD GAS PCO2 (test code=EOQQCQ5X) 34.2 mmHg 35.0-45 POC TCO2 ARTERIAL (test code=POCTCO2) 19.8 POC ARTERIAL BLOOD GAS PO2 (test code=LDKXA4Y) 320.4 mmHg 80-100.0 POC HCO3 ARTERIAL (test code=ODLAYI1R) 18.8 MMOL/L 22.0-26.0 POC BASE EXCESS (test code=POCBEA) -6.2 MMOL/L -4.0-4.0 POC O2 SATURATION (test code=POCO2S) 99.9 % 90-100 [id number] 11:42:00* Test Item Value Reference Range Comments SODIUM (test code=NA/ABG) 141 MEQ/L 134-147 [id number] 11:42:00* Test Item Value Reference Range Comments POTASSIUM (test code=K/ABG) 3.7 MEQ/L 3.4-5.0 [id number] 11:42:00* Test Item Value Reference Range Comments CHLORIDE (test code=CL/ABG) MEQ/L 100-108 CREATININE [id number] 11:42:00* Test Item Value Reference Range Comments CREATININE ABG (test code=CREAABG) mg/dL 0.8-1.3 [id number] 11:42:00* Test Item Value Reference Range Comments HEMOGLOBIN (test code=HGB/ABG) G/DL 12.5-16.9 [id number] 11:42:00* Test Item Value Reference Range Comments HEMATOCRIT (test code=HCT/ABG) % 37.5-50.7 POC IONIZED [id number] 11:42:00* Test Item Value Reference Range Comments POC IONIZED CALCIUM (test code=POCCA) MMOL/L 1.12-1.32 POC [id number] 11:42:00* Test Item Value Reference Range Comments POC GLUCOSE (test code=POCGLU) MG/DL 70-110 POC ARTERIAL BLOOD [id number] 11:42:00* Test Item Value Reference Range Comments POC ARTERIAL BLOOD GAS PH (test code=POCPHA) 7.348 7.35-7.45 POC ARTERIAL BLOOD GAS PCO2 (test code=YOVWGY1L) 34.2 mmHg 35.0-45 POC TCO2 ARTERIAL (test code=POCTCO2) 19.8 POC ARTERIAL BLOOD GAS PO2 (test code=HCYMK4H) 320.4 mmHg 80-100.0 POC HCO3 ARTERIAL (test code=DAAJAC0T) 18.8 MMOL/L 22.0-26.0 POC BASE EXCESS (test code=POCBEA) -6.2 MMOL/L -4.0-4.0 POC O2 SATURATION (test code=POCO2S) 99.9 % 90-100 [id number] 11:42:00* Test Item Value Reference Range Comments SODIUM (test code=NA/ABG) 141 MEQ/L 134-147 [id number] 11:42:00* Test Item Value Reference Range Comments POTASSIUM (test code=K/ABG) 3.7 MEQ/L 3.4-5.0 [id number] 11:42:00* Test Item Value Reference Range Comments CHLORIDE (test code=CL/ABG) MEQ/L 100-108 CREATININE [id number] 11:42:00* Test Item Value Reference Range Comments CREATININE ABG (test code=CREAABG) mg/dL 0.8-1.3 [id number] 11:42:00* Test Item Value Reference Range Comments HEMOGLOBIN (test code=HGB/ABG) G/DL 12.5-16.9 [id number] 11:42:00* Test Item Value Reference Range Comments HEMATOCRIT (test code=HCT/ABG) % 37.5-50.7 POC IONIZED [id number] 11:42:00* Test Item Value Reference Range Comments POC IONIZED CALCIUM (test code=POCCA) 1.28 MMOL/L 1.12-1.32 POC [id number] 11:42:00* Test Item Value Reference Range Comments POC GLUCOSE (test code=POCGLU) MG/DL 70-110 POC ARTERIAL BLOOD [id number] 11:42:00* Test Item Value Reference Range Comments POC ARTERIAL BLOOD GAS PH (test code=POCPHA) 7.348 7.35-7.45 POC ARTERIAL BLOOD GAS PCO2 (test code=SOMYFY5X) 34.2 mmHg 35.0-45 POC TCO2 ARTERIAL (test code=POCTCO2) 19.8 POC ARTERIAL BLOOD GAS PO2 (test code=KEWUA6T) 320.4 mmHg 80-100.0 POC HCO3 ARTERIAL (test code=UVVEEP4U) 18.8 MMOL/L 22.0-26.0 POC BASE EXCESS (test code=POCBEA) -6.2 MMOL/L -4.0-4.0 POC O2 SATURATION (test code=POCO2S) 99.9 % 90-100 [id number] 11:42:00* Test Item Value Reference Range Comments SODIUM (test code=NA/ABG) 141 MEQ/L 134-147 [id number] 11:42:00* Test Item Value Reference Range Comments POTASSIUM (test code=K/ABG) 3.7 MEQ/L 3.4-5.0 [id number] 11:42:00* Test Item Value Reference Range Comments CHLORIDE (test code=CL/ABG) MEQ/L 100-108 CREATININE [id number] 11:42:00* Test Item Value Reference Range Comments CREATININE ABG (test code=CREAABG) mg/dL 0.8-1.3 [id number] 11:42:00* Test Item Value Reference Range Comments HEMOGLOBIN (test code=HGB/ABG) G/DL 12.5-16.9 [id number] 11:42:00* Test Item Value Reference Range Comments HEMATOCRIT (test code=HCT/ABG) % 37.5-50.7 POC IONIZED [id number] 11:42:00* Test Item Value Reference Range Comments POC IONIZED CALCIUM (test code=POCCA) 1.28 MMOL/L 1.12-1.32 POC [id number] 11:42:00* Test Item Value Reference Range Comments POC GLUCOSE (test code=POCGLU) 226 MG/DL 70-110 POC ARTERIAL BLOOD [id number] 11:42:00* Test Item Value Reference Range Comments POC ARTERIAL BLOOD GAS PH (test code=POCPHA) 7.348 7.35-7.45 POC ARTERIAL BLOOD GAS PCO2 (test code=XEUWXE7M) 34.2 mmHg 35.0-45 POC TCO2 ARTERIAL (test code=POCTCO2) 19.8 POC ARTERIAL BLOOD GAS PO2 (test code=DANIJ2Z) 320.4 mmHg 80-100.0 POC HCO3 ARTERIAL (test code=SLHCBY6Q) 18.8 MMOL/L 22.0-26.0 POC BASE EXCESS (test code=POCBEA) -6.2 MMOL/L -4.0-4.0 POC O2 SATURATION (test code=POCO2S) 99.9 % 90-100 [id number] 11:42:00* Test Item Value Reference Range Comments SODIUM (test code=NA/ABG) 141 MEQ/L 134-147 [id number] 11:42:00* Test Item Value Reference Range Comments POTASSIUM (test code=K/ABG) 3.7 MEQ/L 3.4-5.0 [id number] 11:42:00* Test Item Value Reference Range Comments CHLORIDE (test code=CL/ABG) MEQ/L 100-108 CREATININE [id number] 11:42:00* Test Item Value Reference Range Comments CREATININE ABG (test code=CREAABG) mg/dL 0.8-1.3 [id number] 11:42:00* Test Item Value Reference Range Comments HEMOGLOBIN (test code=HGB/ABG) G/DL 12.5-16.9 [id number] 11:42:00* Test Item Value Reference Range Comments HEMATOCRIT (test code=HCT/ABG) 25 % 37.5-50.7 POC IONIZED [id number] 11:42:00* Test Item Value Reference Range Comments POC IONIZED CALCIUM (test code=POCCA) 1.28 MMOL/L 1.12-1.32 POC [id number] 11:42:00* Test Item Value Reference Range Comments POC GLUCOSE (test code=POCGLU) 226 MG/DL 70-110 POC ARTERIAL BLOOD [id number] 11:42:00* Test Item Value Reference Range Comments POC ARTERIAL BLOOD GAS PH (test code=POCPHA) 7.348 7.35-7.45 POC ARTERIAL BLOOD GAS PCO2 (test code=WYQCQY5M) 34.2 mmHg 35.0-45 POC TCO2 ARTERIAL (test code=POCTCO2) 19.8 POC ARTERIAL BLOOD GAS PO2 (test code=VDGWM4M) 320.4 mmHg 80-100.0 POC HCO3 ARTERIAL (test code=PFPXPW8G) 18.8 MMOL/L 22.0-26.0 POC BASE EXCESS (test code=POCBEA) -6.2 MMOL/L -4.0-4.0 POC O2 SATURATION (test code=POCO2S) 99.9 % 90-100 [id number] 11:42:00* Test Item Value Reference Range Comments SODIUM (test code=NA/ABG) 141 MEQ/L 134-147 [id number] 11:42:00* Test Item Value Reference Range Comments POTASSIUM (test code=K/ABG) 3.7 MEQ/L 3.4-5.0 [id number] 11:42:00* Test Item Value Reference Range Comments CHLORIDE (test code=CL/ABG) MEQ/L 100-108 CREATININE [id number] 11:42:00* Test Item Value Reference Range Comments CREATININE ABG (test code=CREAABG) mg/dL 0.8-1.3 [id number] 11:42:00* Test Item Value Reference Range Comments HEMOGLOBIN (test code=HGB/ABG) 8.6 G/DL 12.5-16.9 [id number] 11:42:00* Test Item Value Reference Range Comments HEMATOCRIT (test code=HCT/ABG) 25 % 37.5-50.7 POC IONIZED [id number] 11:42:00* Test Item Value Reference Range Comments POC IONIZED CALCIUM (test code=POCCA) 1.28 MMOL/L 1.12-1.32 POC [id number] 11:42:00* Test Item Value Reference Range Comments POC GLUCOSE (test code=POCGLU) 226 MG/DL 70-110 POC ARTERIAL BLOOD [id number] 11:42:00* Test Item Value Reference Range Comments POC ARTERIAL BLOOD GAS PH (test code=POCPHA) 7.348 7.35-7.45 POC ARTERIAL BLOOD GAS PCO2 (test code=UGLPKT9N) 34.2 mmHg 35.0-45 POC TCO2 ARTERIAL (test code=POCTCO2) 19.8 POC ARTERIAL BLOOD GAS PO2 (test code=UGJBE6I) 320.4 mmHg 80-100.0 POC HCO3 ARTERIAL (test code=MECXJS7J) 18.8 MMOL/L 22.0-26.0 POC BASE EXCESS (test code=POCBEA) -6.2 MMOL/L -4.0-4.0 POC O2 SATURATION (test code=POCO2S) 99.9 % 90-100 [id number] 11:42:00* Test Item Value Reference Range Comments SODIUM (test code=NA/ABG) 141 MEQ/L 134-147 [id number] 11:42:00* Test Item Value Reference Range Comments POTASSIUM (test code=K/ABG) 3.7 MEQ/L 3.4-5.0 [id number] 11:42:00* Test Item Value Reference Range Comments CHLORIDE (test code=CL/ABG) 109 MEQ/L 100-108 CREATININE [id number] 11:42:00* Test Item Value Reference Range Comments CREATININE ABG (test code=CREAABG) mg/dL 0.8-1.3 [id number] 11:42:00* Test Item Value Reference Range Comments HEMOGLOBIN (test code=HGB/ABG) 8.6 G/DL 12.5-16.9 [id number] 11:42:00* Test Item Value Reference Range Comments HEMATOCRIT (test code=HCT/ABG) 25 % 37.5-50.7 POC IONIZED [id number] 11:42:00* Test Item Value Reference Range Comments POC IONIZED CALCIUM (test code=POCCA) 1.28 MMOL/L 1.12-1.32 POC [id number] 11:42:00* Test Item Value Reference Range Comments POC GLUCOSE (test code=POCGLU) 226 MG/DL 70-110 POC ARTERIAL BLOOD [id number] 11:42:00* Test Item Value Reference Range Comments POC ARTERIAL BLOOD GAS PH (test code=POCPHA) 7.348 7.35-7.45 POC ARTERIAL BLOOD GAS PCO2 (test code=XBYLHG3E) 34.2 mmHg 35.0-45 POC TCO2 ARTERIAL (test code=POCTCO2) 19.8 POC ARTERIAL BLOOD GAS PO2 (test code=ZBTNV2E) 320.4 mmHg 80-100.0 POC HCO3 ARTERIAL (test code=BVRSLN5U) 18.8 MMOL/L 22.0-26.0 POC BASE EXCESS (test code=POCBEA) -6.2 MMOL/L -4.0-4.0 POC O2 SATURATION (test code=POCO2S) 99.9 % 90-100 [id number] 11:42:00* Test Item Value Reference Range Comments SODIUM (test code=NA/ABG) 141 MEQ/L 134-147 [id number] 11:42:00* Test Item Value Reference Range Comments POTASSIUM (test code=K/ABG) 3.7 MEQ/L 3.4-5.0 [id number] 11:42:00* Test Item Value Reference Range Comments CHLORIDE (test code=CL/ABG) 109 MEQ/L 100-108 CREATININE [id number] 11:42:00* Test Item Value Reference Range Comments CREATININE ABG (test code=CREAABG) 1.0 mg/dL 0.8-1.3 [id number] 11:42:00* Test Item Value Reference Range Comments HEMOGLOBIN (test code=HGB/ABG) 8.6 G/DL 12.5-16.9 [id number] 11:42:00* Test Item Value Reference Range Comments HEMATOCRIT (test code=HCT/ABG) 25 % 37.5-50.7 POC IONIZED [id number] 11:42:00* Test Item Value Reference Range Comments POC IONIZED CALCIUM (test code=POCCA) 1.28 MMOL/L 1.12-1.32 POC [id number] 11:42:00* Test Item Value Reference Range Comments POC GLUCOSE (test code=POCGLU) 226 MG/DL 70-110 POC ARTERIAL BLOOD [id number] 11:02:00* Test Item Value Reference Range Comments POC ARTERIAL BLOOD GAS PH (test code=POCPHA) 7.366 7.35-7.45 POC ARTERIAL BLOOD GAS PCO2 (test code=TOMIKQ7H) 31.3 mmHg 35.0-45 POC TCO2 ARTERIAL (test code=POCTCO2) 18.9 POC ARTERIAL BLOOD GAS PO2 (test code=ZNEYC7N) 226.3 mmHg 80-100.0 POC HCO3 ARTERIAL (test code=PAYEGB4X) 18.0 MMOL/L 22.0-26.0 POC BASE EXCESS (test code=POCBEA) -6.7 MMOL/L -4.0-4.0 POC O2 SATURATION (test code=POCO2S) 99.8 % 90-100 [id number] 11:02:00* Test Item Value Reference Range Comments SODIUM (test code=NA/ABG) MEQ/L 134-147 [id number] 11:02:00* Test Item Value Reference Range Comments POTASSIUM (test code=K/ABG) MEQ/L 3.4-5.0 [id number] 11:02:00* Test Item Value Reference Range Comments CHLORIDE (test code=CL/ABG) MEQ/L 100-108 CREATININE [id number] 11:02:00* Test Item Value Reference Range Comments CREATININE ABG (test code=CREAABG) mg/dL 0.8-1.3 [id number] 11:02:00* Test Item Value Reference Range Comments HEMOGLOBIN (test code=HGB/ABG) G/DL 12.5-16.9 [id number] 11:02:00* Test Item Value Reference Range Comments HEMATOCRIT (test code=HCT/ABG) % 37.5-50.7 POC IONIZED [id number] 11:02:00* Test Item Value Reference Range Comments POC IONIZED CALCIUM (test code=POCCA) MMOL/L 1.12-1.32 POC [id number] 11:02:00* Test Item Value Reference Range Comments POC GLUCOSE (test code=POCGLU) MG/DL 70-110 POC ARTERIAL BLOOD [id number] 11:02:00* Test Item Value Reference Range Comments POC ARTERIAL BLOOD GAS PH (test code=POCPHA) 7.366 7.35-7.45 POC ARTERIAL BLOOD GAS PCO2 (test code=GIQUYU7K) 31.3 mmHg 35.0-45 POC TCO2 ARTERIAL (test code=POCTCO2) 18.9 POC ARTERIAL BLOOD GAS PO2 (test code=OMPLV9Y) 226.3 mmHg 80-100.0 POC HCO3 ARTERIAL (test code=FTLKVW7D) 18.0 MMOL/L 22.0-26.0 POC BASE EXCESS (test code=POCBEA) -6.7 MMOL/L -4.0-4.0 POC O2 SATURATION (test code=POCO2S) 99.8 % 90-100 [id number] 11:02:00* Test Item Value Reference Range Comments SODIUM (test code=NA/ABG) 138 MEQ/L 134-147 [id number] 11:02:00* Test Item Value Reference Range Comments POTASSIUM (test code=K/ABG) MEQ/L 3.4-5.0 [id number] 11:02:00* Test Item Value Reference Range Comments CHLORIDE (test code=CL/ABG) MEQ/L 100-108 CREATININE [id number] 11:02:00* Test Item Value Reference Range Comments CREATININE ABG (test code=CREAABG) mg/dL 0.8-1.3 [id number] 11:02:00* Test Item Value Reference Range Comments HEMOGLOBIN (test code=HGB/ABG) G/DL 12.5-16.9 [id number] 11:02:00* Test Item Value Reference Range Comments HEMATOCRIT (test code=HCT/ABG) % 37.5-50.7 POC IONIZED [id number] 11:02:00* Test Item Value Reference Range Comments POC IONIZED CALCIUM (test code=POCCA) MMOL/L 1.12-1.32 POC [id number] 11:02:00* Test Item Value Reference Range Comments POC GLUCOSE (test code=POCGLU) MG/DL 70-110 POC ARTERIAL BLOOD [id number] 11:02:00* Test Item Value Reference Range Comments POC ARTERIAL BLOOD GAS PH (test code=POCPHA) 7.366 7.35-7.45 POC ARTERIAL BLOOD GAS PCO2 (test code=NWVIBH8N) 31.3 mmHg 35.0-45 POC TCO2 ARTERIAL (test code=POCTCO2) 18.9 POC ARTERIAL BLOOD GAS PO2 (test code=OZLHE8O) 226.3 mmHg 80-100.0 POC HCO3 ARTERIAL (test code=EYRYRS3M) 18.0 MMOL/L 22.0-26.0 POC BASE EXCESS (test code=POCBEA) -6.7 MMOL/L -4.0-4.0 POC O2 SATURATION (test code=POCO2S) 99.8 % 90-100 [id number] 11:02:00* Test Item Value Reference Range Comments SODIUM (test code=NA/ABG) 138 MEQ/L 134-147 [id number] 11:02:00* Test Item Value Reference Range Comments POTASSIUM (test code=K/ABG) 4.5 MEQ/L 3.4-5.0 [id number] 11:02:00* Test Item Value Reference Range Comments CHLORIDE (test code=CL/ABG) MEQ/L 100-108 CREATININE [id number] 11:02:00* Test Item Value Reference Range Comments CREATININE ABG (test code=CREAABG) mg/dL 0.8-1.3 [id number] 11:02:00* Test Item Value Reference Range Comments HEMOGLOBIN (test code=HGB/ABG) G/DL 12.5-16.9 [id number] 11:02:00* Test Item Value Reference Range Comments HEMATOCRIT (test code=HCT/ABG) % 37.5-50.7 POC IONIZED [id number] 11:02:00* Test Item Value Reference Range Comments POC IONIZED CALCIUM (test code=POCCA) MMOL/L 1.12-1.32 POC [id number] 11:02:00* Test Item Value Reference Range Comments POC GLUCOSE (test code=POCGLU) MG/DL 70-110 POC ARTERIAL BLOOD [id number] 11:02:00* Test Item Value Reference Range Comments POC ARTERIAL BLOOD GAS PH (test code=POCPHA) 7.366 7.35-7.45 POC ARTERIAL BLOOD GAS PCO2 (test code=TTJQFI9Y) 31.3 mmHg 35.0-45 POC TCO2 ARTERIAL (test code=POCTCO2) 18.9 POC ARTERIAL BLOOD GAS PO2 (test code=OGVGK6X) 226.3 mmHg 80-100.0 POC HCO3 ARTERIAL (test code=PWKQTW7X) 18.0 MMOL/L 22.0-26.0 POC BASE EXCESS (test code=POCBEA) -6.7 MMOL/L -4.0-4.0 POC O2 SATURATION (test code=POCO2S) 99.8 % 90-100 [id number] 11:02:00* Test Item Value Reference Range Comments SODIUM (test code=NA/ABG) 138 MEQ/L 134-147 [id number] 11:02:00* Test Item Value Reference Range Comments POTASSIUM (test code=K/ABG) 4.5 MEQ/L 3.4-5.0 [id number] 11:02:00* Test Item Value Reference Range Comments CHLORIDE (test code=CL/ABG) MEQ/L 100-108 CREATININE [id number] 11:02:00* Test Item Value Reference Range Comments CREATININE ABG (test code=CREAABG) mg/dL 0.8-1.3 [id number] 11:02:00* Test Item Value Reference Range Comments HEMOGLOBIN (test code=HGB/ABG) G/DL 12.5-16.9 [id number] 11:02:00* Test Item Value Reference Range Comments HEMATOCRIT (test code=HCT/ABG) % 37.5-50.7 POC IONIZED [id number] 11:02:00* Test Item Value Reference Range Comments POC IONIZED CALCIUM (test code=POCCA) 1.16 MMOL/L 1.12-1.32 POC [id number] 11:02:00* Test Item Value Reference Range Comments POC GLUCOSE (test code=POCGLU) MG/DL 70-110 POC ARTERIAL BLOOD [id number] 11:02:00* Test Item Value Reference Range Comments POC ARTERIAL BLOOD GAS PH (test code=POCPHA) 7.366 7.35-7.45 POC ARTERIAL BLOOD GAS PCO2 (test code=TGBPJX5B) 31.3 mmHg 35.0-45 POC TCO2 ARTERIAL (test code=POCTCO2) 18.9 POC ARTERIAL BLOOD GAS PO2 (test code=ESIGM4Q) 226.3 mmHg 80-100.0 POC HCO3 ARTERIAL (test code=FNZTLB5G) 18.0 MMOL/L 22.0-26.0 POC BASE EXCESS (test code=POCBEA) -6.7 MMOL/L -4.0-4.0 POC O2 SATURATION (test code=POCO2S) 99.8 % 90-100 [id number] 11:02:00* Test Item Value Reference Range Comments SODIUM (test code=NA/ABG) 138 MEQ/L 134-147 [id number] 11:02:00* Test Item Value Reference Range Comments POTASSIUM (test code=K/ABG) 4.5 MEQ/L 3.4-5.0 [id number] 11:02:00* Test Item Value Reference Range Comments CHLORIDE (test code=CL/ABG) MEQ/L 100-108 CREATININE [id number] 11:02:00* Test Item Value Reference Range Comments CREATININE ABG (test code=CREAABG) mg/dL 0.8-1.3 [id number] 11:02:00* Test Item Value Reference Range Comments HEMOGLOBIN (test code=HGB/ABG) G/DL 12.5-16.9 [id number] 11:02:00* Test Item Value Reference Range Comments HEMATOCRIT (test code=HCT/ABG) % 37.5-50.7 POC IONIZED [id number] 11:02:00* Test Item Value Reference Range Comments POC IONIZED CALCIUM (test code=POCCA) 1.16 MMOL/L 1.12-1.32 POC [id number] 11:02:00* Test Item Value Reference Range Comments POC GLUCOSE (test code=POCGLU) 240 MG/DL 70-110 POC ARTERIAL BLOOD [id number] 11:02:00* Test Item Value Reference Range Comments POC ARTERIAL BLOOD GAS PH (test code=POCPHA) 7.366 7.35-7.45 POC ARTERIAL BLOOD GAS PCO2 (test code=PIONZK1M) 31.3 mmHg 35.0-45 POC TCO2 ARTERIAL (test code=POCTCO2) 18.9 POC ARTERIAL BLOOD GAS PO2 (test code=VZNTC1X) 226.3 mmHg 80-100.0 POC HCO3 ARTERIAL (test code=WERQSR2P) 18.0 MMOL/L 22.0-26.0 POC BASE EXCESS (test code=POCBEA) -6.7 MMOL/L -4.0-4.0 POC O2 SATURATION (test code=POCO2S) 99.8 % 90-100 [id number] 11:02:00* Test Item Value Reference Range Comments SODIUM (test code=NA/ABG) 138 MEQ/L 134-147 [id number] 11:02:00* Test Item Value Reference Range Comments POTASSIUM (test code=K/ABG) 4.5 MEQ/L 3.4-5.0 [id number] 11:02:00* Test Item Value Reference Range Comments CHLORIDE (test code=CL/ABG) MEQ/L 100-108 CREATININE [id number] 11:02:00* Test Item Value Reference Range Comments CREATININE ABG (test code=CREAABG) mg/dL 0.8-1.3 [id number] 11:02:00* Test Item Value Reference Range Comments HEMOGLOBIN (test code=HGB/ABG) G/DL 12.5-16.9 [id number] 11:02:00* Test Item Value Reference Range Comments HEMATOCRIT (test code=HCT/ABG) 22 % 37.5-50.7 POC IONIZED [id number] 11:02:00* Test Item Value Reference Range Comments POC IONIZED CALCIUM (test code=POCCA) 1.16 MMOL/L 1.12-1.32 POC [id number] 11:02:00* Test Item Value Reference Range Comments POC GLUCOSE (test code=POCGLU) 240 MG/DL 70-110 POC ARTERIAL BLOOD [id number] 11:02:00* Test Item Value Reference Range Comments POC ARTERIAL BLOOD GAS PH (test code=POCPHA) 7.366 7.35-7.45 POC ARTERIAL BLOOD GAS PCO2 (test code=GTSHOA3N) 31.3 mmHg 35.0-45 POC TCO2 ARTERIAL (test code=POCTCO2) 18.9 POC ARTERIAL BLOOD GAS PO2 (test code=RPXGR5V) 226.3 mmHg 80-100.0 POC HCO3 ARTERIAL (test code=PAKUJA9G) 18.0 MMOL/L 22.0-26.0 POC BASE EXCESS (test code=POCBEA) -6.7 MMOL/L -4.0-4.0 POC O2 SATURATION (test code=POCO2S) 99.8 % 90-100 [id number] 11:02:00* Test Item Value Reference Range Comments SODIUM (test code=NA/ABG) 138 MEQ/L 134-147 [id number] 11:02:00* Test Item Value Reference Range Comments POTASSIUM (test code=K/ABG) 4.5 MEQ/L 3.4-5.0 [id number] 11:02:00* Test Item Value Reference Range Comments CHLORIDE (test code=CL/ABG) MEQ/L 100-108 CREATININE [id number] 11:02:00* Test Item Value Reference Range Comments CREATININE ABG (test code=CREAABG) mg/dL 0.8-1.3 [id number] 11:02:00* Test Item Value Reference Range Comments HEMOGLOBIN (test code=HGB/ABG) 7.6 G/DL 12.5-16.9 [id number] 11:02:00* Test Item Value Reference Range Comments HEMATOCRIT (test code=HCT/ABG) 22 % 37.5-50.7 POC IONIZED [id number] 11:02:00* Test Item Value Reference Range Comments POC IONIZED CALCIUM (test code=POCCA) 1.16 MMOL/L 1.12-1.32 POC [id number] 11:02:00* Test Item Value Reference Range Comments POC GLUCOSE (test code=POCGLU) 240 MG/DL 70-110 POC ARTERIAL BLOOD [id number] 11:02:00* Test Item Value Reference Range Comments POC ARTERIAL BLOOD GAS PH (test code=POCPHA) 7.366 7.35-7.45 POC ARTERIAL BLOOD GAS PCO2 (test code=UXCCXX1C) 31.3 mmHg 35.0-45 POC TCO2 ARTERIAL (test code=POCTCO2) 18.9 POC ARTERIAL BLOOD GAS PO2 (test code=SCDWU1O) 226.3 mmHg 80-100.0 POC HCO3 ARTERIAL (test code=QFLHUW5P) 18.0 MMOL/L 22.0-26.0 POC BASE EXCESS (test code=POCBEA) -6.7 MMOL/L -4.0-4.0 POC O2 SATURATION (test code=POCO2S) 99.8 % 90-100 [id number] 11:02:00* Test Item Value Reference Range Comments SODIUM (test code=NA/ABG) 138 MEQ/L 134-147 [id number] 11:02:00* Test Item Value Reference Range Comments POTASSIUM (test code=K/ABG) 4.5 MEQ/L 3.4-5.0 [id number] 11:02:00* Test Item Value Reference Range Comments CHLORIDE (test code=CL/ABG) 104 MEQ/L 100-108 CREATININE [id number] 11:02:00* Test Item Value Reference Range Comments CREATININE ABG (test code=CREAABG) mg/dL 0.8-1.3 [id number] 11:02:00* Test Item Value Reference Range Comments HEMOGLOBIN (test code=HGB/ABG) 7.6 G/DL 12.5-16.9 [id number] 11:02:00* Test Item Value Reference Range Comments HEMATOCRIT (test code=HCT/ABG) 22 % 37.5-50.7 POC IONIZED [id number] 11:02:00* Test Item Value Reference Range Comments POC IONIZED CALCIUM (test code=POCCA) 1.16 MMOL/L 1.12-1.32 POC [id number] 11:02:00* Test Item Value Reference Range Comments POC GLUCOSE (test code=POCGLU) 240 MG/DL 70-110 POC ARTERIAL BLOOD [id number] 11:02:00* Test Item Value Reference Range Comments POC ARTERIAL BLOOD GAS PH (test code=POCPHA) 7.366 7.35-7.45 POC ARTERIAL BLOOD GAS PCO2 (test code=USAQEM2U) 31.3 mmHg 35.0-45 POC TCO2 ARTERIAL (test code=POCTCO2) 18.9 POC ARTERIAL BLOOD GAS PO2 (test code=HVIXB7S) 226.3 mmHg 80-100.0 POC HCO3 ARTERIAL (test code=BGPHDW6X) 18.0 MMOL/L 22.0-26.0 POC BASE EXCESS (test code=POCBEA) -6.7 MMOL/L -4.0-4.0 POC O2 SATURATION (test code=POCO2S) 99.8 % 90-100 [id number] 11:02:00* Test Item Value Reference Range Comments SODIUM (test code=NA/ABG) 138 MEQ/L 134-147 [id number] 11:02:00* Test Item Value Reference Range Comments POTASSIUM (test code=K/ABG) 4.5 MEQ/L 3.4-5.0 [id number] 11:02:00* Test Item Value Reference Range Comments CHLORIDE (test code=CL/ABG) 104 MEQ/L 100-108 CREATININE [id number] 11:02:00* Test Item Value Reference Range Comments CREATININE ABG (test code=CREAABG) 1.0 mg/dL 0.8-1.3 [id number] 11:02:00* Test Item Value Reference Range Comments HEMOGLOBIN (test code=HGB/ABG) 7.6 G/DL 12.5-16.9 [id number] 11:02:00* Test Item Value Reference Range Comments HEMATOCRIT (test code=HCT/ABG) 22 % 37.5-50.7 POC IONIZED [id number] 11:02:00* Test Item Value Reference Range Comments POC IONIZED CALCIUM (test code=POCCA) 1.16 MMOL/L 1.12-1.32 POC [id number] 11:02:00* Test Item Value Reference Range Comments POC GLUCOSE (test code=POCGLU) 240 MG/DL 70-110 POC ARTERIAL BLOOD [id number] 10:28:00* Test Item Value Reference Range Comments POC ARTERIAL BLOOD GAS PH (test code=POCPHA) 7.433 7.35-7.45 POC ARTERIAL BLOOD GAS PCO2 (test code=BSHPYJ7F) 32.7 mmHg 35.0-45 POC TCO2 ARTERIAL (test code=POCTCO2) 22.8 POC ARTERIAL BLOOD GAS PO2 (test code=FKGUT8T) 422.1 mmHg 80-100.0 POC HCO3 ARTERIAL (test code=QWLWQL8G) 21.8 MMOL/L 22.0-26.0 POC BASE EXCESS (test code=POCBEA) -2.2 MMOL/L -4.0-4.0 POC O2 SATURATION (test code=POCO2S) 100.0 % 90-100 [id number] 10:28:00* Test Item Value Reference Range Comments SODIUM (test code=NA/ABG) MEQ/L 134-147 [id number] 10:28:00* Test Item Value Reference Range Comments POTASSIUM (test code=K/ABG) MEQ/L 3.4-5.0 [id number] 10:28:00* Test Item Value Reference Range Comments CHLORIDE (test code=CL/ABG) MEQ/L 100-108 CREATININE [id number] 10:28:00* Test Item Value Reference Range Comments CREATININE ABG (test code=CREAABG) mg/dL 0.8-1.3 [id number] 10:28:00* Test Item Value Reference Range Comments HEMOGLOBIN (test code=HGB/ABG) G/DL 12.5-16.9 [id number] 10:28:00* Test Item Value Reference Range Comments HEMATOCRIT (test code=HCT/ABG) % 37.5-50.7 POC IONIZED [id number] 10:28:00* Test Item Value Reference Range Comments POC IONIZED CALCIUM (test code=POCCA) MMOL/L 1.12-1.32 POC [id number] 10:28:00* Test Item Value Reference Range Comments POC GLUCOSE (test code=POCGLU) MG/DL 70-110 POC ARTERIAL BLOOD [id number] 10:28:00* Test Item Value Reference Range Comments POC ARTERIAL BLOOD GAS PH (test code=POCPHA) 7.433 7.35-7.45 POC ARTERIAL BLOOD GAS PCO2 (test code=EADUMC9Q) 32.7 mmHg 35.0-45 POC TCO2 ARTERIAL (test code=POCTCO2) 22.8 POC ARTERIAL BLOOD GAS PO2 (test code=TBHYS2B) 422.1 mmHg 80-100.0 POC HCO3 ARTERIAL (test code=SKHEXH5N) 21.8 MMOL/L 22.0-26.0 POC BASE EXCESS (test code=POCBEA) -2.2 MMOL/L -4.0-4.0 POC O2 SATURATION (test code=POCO2S) 100.0 % 90-100 [id number] 10:28:00* Test Item Value Reference Range Comments SODIUM (test code=NA/ABG) 138 MEQ/L 134-147 [id number] 10:28:00* Test Item Value Reference Range Comments POTASSIUM (test code=K/ABG) MEQ/L 3.4-5.0 [id number] 10:28:00* Test Item Value Reference Range Comments CHLORIDE (test code=CL/ABG) MEQ/L 100-108 CREATININE [id number] 10:28:00* Test Item Value Reference Range Comments CREATININE ABG (test code=CREAABG) mg/dL 0.8-1.3 [id number] 10:28:00* Test Item Value Reference Range Comments HEMOGLOBIN (test code=HGB/ABG) G/DL 12.5-16.9 [id number] 10:28:00* Test Item Value Reference Range Comments HEMATOCRIT (test code=HCT/ABG) % 37.5-50.7 POC IONIZED [id number] 10:28:00* Test Item Value Reference Range Comments POC IONIZED CALCIUM (test code=POCCA) MMOL/L 1.12-1.32 POC [id number] 10:28:00* Test Item Value Reference Range Comments POC GLUCOSE (test code=POCGLU) MG/DL 70-110 POC ARTERIAL BLOOD [id number] 10:28:00* Test Item Value Reference Range Comments POC ARTERIAL BLOOD GAS PH (test code=POCPHA) 7.433 7.35-7.45 POC ARTERIAL BLOOD GAS PCO2 (test code=KUDURO3M) 32.7 mmHg 35.0-45 POC TCO2 ARTERIAL (test code=POCTCO2) 22.8 POC ARTERIAL BLOOD GAS PO2 (test code=EBVSW2C) 422.1 mmHg 80-100.0 POC HCO3 ARTERIAL (test code=UJTZCV7J) 21.8 MMOL/L 22.0-26.0 POC BASE EXCESS (test code=POCBEA) -2.2 MMOL/L -4.0-4.0 POC O2 SATURATION (test code=POCO2S) 100.0 % 90-100 [id number] 10:28:00* Test Item Value Reference Range Comments SODIUM (test code=NA/ABG) 138 MEQ/L 134-147 [id number] 10:28:00* Test Item Value Reference Range Comments POTASSIUM (test code=K/ABG) 4.3 MEQ/L 3.4-5.0 [id number] 10:28:00* Test Item Value Reference Range Comments CHLORIDE (test code=CL/ABG) MEQ/L 100-108 CREATININE [id number] 10:28:00* Test Item Value Reference Range Comments CREATININE ABG (test code=CREAABG) mg/dL 0.8-1.3 [id number] 10:28:00* Test Item Value Reference Range Comments HEMOGLOBIN (test code=HGB/ABG) G/DL 12.5-16.9 [id number] 10:28:00* Test Item Value Reference Range Comments HEMATOCRIT (test code=HCT/ABG) % 37.5-50.7 POC IONIZED [id number] 10:28:00* Test Item Value Reference Range Comments POC IONIZED CALCIUM (test code=POCCA) MMOL/L 1.12-1.32 POC [id number] 10:28:00* Test Item Value Reference Range Comments POC GLUCOSE (test code=POCGLU) MG/DL 70-110 POC ARTERIAL BLOOD [id number] 10:28:00* Test Item Value Reference Range Comments POC ARTERIAL BLOOD GAS PH (test code=POCPHA) 7.433 7.35-7.45 POC ARTERIAL BLOOD GAS PCO2 (test code=BYRFVA2P) 32.7 mmHg 35.0-45 POC TCO2 ARTERIAL (test code=POCTCO2) 22.8 POC ARTERIAL BLOOD GAS PO2 (test code=XJEDX8M) 422.1 mmHg 80-100.0 POC HCO3 ARTERIAL (test code=LOHDJU3C) 21.8 MMOL/L 22.0-26.0 POC BASE EXCESS (test code=POCBEA) -2.2 MMOL/L -4.0-4.0 POC O2 SATURATION (test code=POCO2S) 100.0 % 90-100 [id number] 10:28:00* Test Item Value Reference Range Comments SODIUM (test code=NA/ABG) 138 MEQ/L 134-147 [id number] 10:28:00* Test Item Value Reference Range Comments POTASSIUM (test code=K/ABG) 4.3 MEQ/L 3.4-5.0 [id number] 10:28:00* Test Item Value Reference Range Comments CHLORIDE (test code=CL/ABG) MEQ/L 100-108 CREATININE [id number] 10:28:00* Test Item Value Reference Range Comments CREATININE ABG (test code=CREAABG) mg/dL 0.8-1.3 [id number] 10:28:00* Test Item Value Reference Range Comments HEMOGLOBIN (test code=HGB/ABG) G/DL 12.5-16.9 [id number] 10:28:00* Test Item Value Reference Range Comments HEMATOCRIT (test code=HCT/ABG) % 37.5-50.7 POC IONIZED [id number] 10:28:00* Test Item Value Reference Range Comments POC IONIZED CALCIUM (test code=POCCA) 1.16 MMOL/L 1.12-1.32 POC [id number] 10:28:00* Test Item Value Reference Range Comments POC GLUCOSE (test code=POCGLU) MG/DL 70-110 POC ARTERIAL BLOOD [id number] 10:28:00* Test Item Value Reference Range Comments POC ARTERIAL BLOOD GAS PH (test code=POCPHA) 7.433 7.35-7.45 POC ARTERIAL BLOOD GAS PCO2 (test code=TAZJVJ1W) 32.7 mmHg 35.0-45 POC TCO2 ARTERIAL (test code=POCTCO2) 22.8 POC ARTERIAL BLOOD GAS PO2 (test code=EUWNK3M) 422.1 mmHg 80-100.0 POC HCO3 ARTERIAL (test code=NRYAGK4D) 21.8 MMOL/L 22.0-26.0 POC BASE EXCESS (test code=POCBEA) -2.2 MMOL/L -4.0-4.0 POC O2 SATURATION (test code=POCO2S) 100.0 % 90-100 [id number] 10:28:00* Test Item Value Reference Range Comments SODIUM (test code=NA/ABG) 138 MEQ/L 134-147 [id number] 10:28:00* Test Item Value Reference Range Comments POTASSIUM (test code=K/ABG) 4.3 MEQ/L 3.4-5.0 [id number] 10:28:00* Test Item Value Reference Range Comments CHLORIDE (test code=CL/ABG) MEQ/L 100-108 CREATININE [id number] 10:28:00* Test Item Value Reference Range Comments CREATININE ABG (test code=CREAABG) mg/dL 0.8-1.3 [id number] 10:28:00* Test Item Value Reference Range Comments HEMOGLOBIN (test code=HGB/ABG) G/DL 12.5-16.9 [id number] 10:28:00* Test Item Value Reference Range Comments HEMATOCRIT (test code=HCT/ABG) % 37.5-50.7 POC IONIZED [id number] 10:28:00* Test Item Value Reference Range Comments POC IONIZED CALCIUM (test code=POCCA) 1.16 MMOL/L 1.12-1.32 POC [id number] 10:28:00* Test Item Value Reference Range Comments POC GLUCOSE (test code=POCGLU) 186 MG/DL 70-110 POC ARTERIAL BLOOD [id number] 10:28:00* Test Item Value Reference Range Comments POC ARTERIAL BLOOD GAS PH (test code=POCPHA) 7.433 7.35-7.45 POC ARTERIAL BLOOD GAS PCO2 (test code=IPXGLN4H) 32.7 mmHg 35.0-45 POC TCO2 ARTERIAL (test code=POCTCO2) 22.8 POC ARTERIAL BLOOD GAS PO2 (test code=UJZIQ6M) 422.1 mmHg 80-100.0 POC HCO3 ARTERIAL (test code=MILFLW1R) 21.8 MMOL/L 22.0-26.0 POC BASE EXCESS (test code=POCBEA) -2.2 MMOL/L -4.0-4.0 POC O2 SATURATION (test code=POCO2S) 100.0 % 90-100 [id number] 10:28:00* Test Item Value Reference Range Comments SODIUM (test code=NA/ABG) 138 MEQ/L 134-147 [id number] 10:28:00* Test Item Value Reference Range Comments POTASSIUM (test code=K/ABG) 4.3 MEQ/L 3.4-5.0 [id number] 10:28:00* Test Item Value Reference Range Comments CHLORIDE (test code=CL/ABG) MEQ/L 100-108 CREATININE [id number] 10:28:00* Test Item Value Reference Range Comments CREATININE ABG (test code=CREAABG) mg/dL 0.8-1.3 [id number] 10:28:00* Test Item Value Reference Range Comments HEMOGLOBIN (test code=HGB/ABG) G/DL 12.5-16.9 [id number] 10:28:00* Test Item Value Reference Range Comments HEMATOCRIT (test code=HCT/ABG) 20 % 37.5-50.7 POC IONIZED [id number] 10:28:00* Test Item Value Reference Range Comments POC IONIZED CALCIUM (test code=POCCA) 1.16 MMOL/L 1.12-1.32 POC [id number] 10:28:00* Test Item Value Reference Range Comments POC GLUCOSE (test code=POCGLU) 186 MG/DL 70-110 POC ARTERIAL BLOOD [id number] 10:28:00* Test Item Value Reference Range Comments POC ARTERIAL BLOOD GAS PH (test code=POCPHA) 7.433 7.35-7.45 POC ARTERIAL BLOOD GAS PCO2 (test code=YTQGWA6Q) 32.7 mmHg 35.0-45 POC TCO2 ARTERIAL (test code=POCTCO2) 22.8 POC ARTERIAL BLOOD GAS PO2 (test code=KYFJH9U) 422.1 mmHg 80-100.0 POC HCO3 ARTERIAL (test code=GKSGMJ7U) 21.8 MMOL/L 22.0-26.0 POC BASE EXCESS (test code=POCBEA) -2.2 MMOL/L -4.0-4.0 POC O2 SATURATION (test code=POCO2S) 100.0 % 90-100 [id number] 10:28:00* Test Item Value Reference Range Comments SODIUM (test code=NA/ABG) 138 MEQ/L 134-147 [id number] 10:28:00* Test Item Value Reference Range Comments POTASSIUM (test code=K/ABG) 4.3 MEQ/L 3.4-5.0 [id number] 10:28:00* Test Item Value Reference Range Comments CHLORIDE (test code=CL/ABG) MEQ/L 100-108 CREATININE [id number] 10:28:00* Test Item Value Reference Range Comments CREATININE ABG (test code=CREAABG) mg/dL 0.8-1.3 [id number] 10:28:00* Test Item Value Reference Range Comments HEMOGLOBIN (test code=HGB/ABG) 6.7 G/DL 12.5-16.9 [id number] 10:28:00* Test Item Value Reference Range Comments HEMATOCRIT (test code=HCT/ABG) 20 % 37.5-50.7 POC IONIZED [id number] 10:28:00* Test Item Value Reference Range Comments POC IONIZED CALCIUM (test code=POCCA) 1.16 MMOL/L 1.12-1.32 POC [id number] 10:28:00* Test Item Value Reference Range Comments POC GLUCOSE (test code=POCGLU) 186 MG/DL 70-110 POC ARTERIAL BLOOD [id number] 10:28:00* Test Item Value Reference Range Comments POC ARTERIAL BLOOD GAS PH (test code=POCPHA) 7.433 7.35-7.45 POC ARTERIAL BLOOD GAS PCO2 (test code=RYDLSO4F) 32.7 mmHg 35.0-45 POC TCO2 ARTERIAL (test code=POCTCO2) 22.8 POC ARTERIAL BLOOD GAS PO2 (test code=LHKPL1N) 422.1 mmHg 80-100.0 POC HCO3 ARTERIAL (test code=WLIWHN4B) 21.8 MMOL/L 22.0-26.0 POC BASE EXCESS (test code=POCBEA) -2.2 MMOL/L -4.0-4.0 POC O2 SATURATION (test code=POCO2S) 100.0 % 90-100 [id number] 10:28:00* Test Item Value Reference Range Comments SODIUM (test code=NA/ABG) 138 MEQ/L 134-147 [id number] 10:28:00* Test Item Value Reference Range Comments POTASSIUM (test code=K/ABG) 4.3 MEQ/L 3.4-5.0 [id number] 10:28:00* Test Item Value Reference Range Comments CHLORIDE (test code=CL/ABG) 106 MEQ/L 100-108 CREATININE [id number] 10:28:00* Test Item Value Reference Range Comments CREATININE ABG (test code=CREAABG) mg/dL 0.8-1.3 [id number] 10:28:00* Test Item Value Reference Range Comments HEMOGLOBIN (test code=HGB/ABG) 6.7 G/DL 12.5-16.9 [id number] 10:28:00* Test Item Value Reference Range Comments HEMATOCRIT (test code=HCT/ABG) 20 % 37.5-50.7 POC IONIZED [id number] 10:28:00* Test Item Value Reference Range Comments POC IONIZED CALCIUM (test code=POCCA) 1.16 MMOL/L 1.12-1.32 POC [id number] 10:28:00* Test Item Value Reference Range Comments POC GLUCOSE (test code=POCGLU) 186 MG/DL 70-110 POC ARTERIAL BLOOD [id number] 10:28:00* Test Item Value Reference Range Comments POC ARTERIAL BLOOD GAS PH (test code=POCPHA) 7.433 7.35-7.45 POC ARTERIAL BLOOD GAS PCO2 (test code=GKERNV5W) 32.7 mmHg 35.0-45 POC TCO2 ARTERIAL (test code=POCTCO2) 22.8 POC ARTERIAL BLOOD GAS PO2 (test code=XMTZS4A) 422.1 mmHg 80-100.0 POC HCO3 ARTERIAL (test code=HXJUZN1D) 21.8 MMOL/L 22.0-26.0 POC BASE EXCESS (test code=POCBEA) -2.2 MMOL/L -4.0-4.0 POC O2 SATURATION (test code=POCO2S) 100.0 % 90-100 [id number] 10:28:00* Test Item Value Reference Range Comments SODIUM (test code=NA/ABG) 138 MEQ/L 134-147 [id number] 10:28:00* Test Item Value Reference Range Comments POTASSIUM (test code=K/ABG) 4.3 MEQ/L 3.4-5.0 [id number] 10:28:00* Test Item Value Reference Range Comments CHLORIDE (test code=CL/ABG) 106 MEQ/L 100-108 CREATININE [id number] 10:28:00* Test Item Value Reference Range Comments CREATININE ABG (test code=CREAABG) 0.9 mg/dL 0.8-1.3 [id number] 10:28:00* Test Item Value Reference Range Comments HEMOGLOBIN (test code=HGB/ABG) 6.7 G/DL 12.5-16.9 [id number] 10:28:00* Test Item Value Reference Range Comments HEMATOCRIT (test code=HCT/ABG) 20 % 37.5-50.7 POC IONIZED [id number] 10:28:00* Test Item Value Reference Range Comments POC IONIZED CALCIUM (test code=POCCA) 1.16 MMOL/L 1.12-1.32 POC [id number] 10:28:00* Test Item Value Reference Range Comments POC GLUCOSE (test code=POCGLU) 186 MG/DL 70-110 POC ARTERIAL BLOOD [id number] 10:00:00* Test Item Value Reference Range Comments POC ARTERIAL BLOOD GAS PH (test code=POCPHA) 7.412 7.35-7.45 POC ARTERIAL BLOOD GAS PCO2 (test code=ANSEFY8H) 38.5 mmHg 35.0-45 POC TCO2 ARTERIAL (test code=POCTCO2) 25.7 POC ARTERIAL BLOOD GAS PO2 (test code=WEOMB4C) 425.2 mmHg 80-100.0 POC HCO3 ARTERIAL (test code=ESFYTH0A) 24.5 MMOL/L 22.0-26.0 POC BASE EXCESS (test code=POCBEA) -0.1 MMOL/L -4.0-4.0 POC O2 SATURATION (test code=POCO2S) 100.0 % 90-100 [id number] 10:00:00* Test Item Value Reference Range Comments SODIUM (test code=NA/ABG) MEQ/L 134-147 [id number] 10:00:00* Test Item Value Reference Range Comments POTASSIUM (test code=K/ABG) MEQ/L 3.4-5.0 [id number] 10:00:00* Test Item Value Reference Range Comments CHLORIDE (test code=CL/ABG) MEQ/L 100-108 CREATININE [id number] 10:00:00* Test Item Value Reference Range Comments CREATININE ABG (test code=CREAABG) mg/dL 0.8-1.3 [id number] 10:00:00* Test Item Value Reference Range Comments HEMOGLOBIN (test code=HGB/ABG) G/DL 12.5-16.9 [id number] 10:00:00* Test Item Value Reference Range Comments HEMATOCRIT (test code=HCT/ABG) % 37.5-50.7 POC IONIZED [id number] 10:00:00* Test Item Value Reference Range Comments POC IONIZED CALCIUM (test code=POCCA) MMOL/L 1.12-1.32 POC [id number] 10:00:00* Test Item Value Reference Range Comments POC GLUCOSE (test code=POCGLU) MG/DL 70-110 POC ARTERIAL BLOOD [id number] 10:00:00* Test Item Value Reference Range Comments POC ARTERIAL BLOOD GAS PH (test code=POCPHA) 7.412 7.35-7.45 POC ARTERIAL BLOOD GAS PCO2 (test code=ENIFNM2R) 38.5 mmHg 35.0-45 POC TCO2 ARTERIAL (test code=POCTCO2) 25.7 POC ARTERIAL BLOOD GAS PO2 (test code=HEAWI7G) 425.2 mmHg 80-100.0 POC HCO3 ARTERIAL (test code=CZNOXO2I) 24.5 MMOL/L 22.0-26.0 POC BASE EXCESS (test code=POCBEA) -0.1 MMOL/L -4.0-4.0 POC O2 SATURATION (test code=POCO2S) 100.0 % 90-100 [id number] 10:00:00* Test Item Value Reference Range Comments SODIUM (test code=NA/ABG) 138 MEQ/L 134-147 [id number] 10:00:00* Test Item Value Reference Range Comments POTASSIUM (test code=K/ABG) MEQ/L 3.4-5.0 [id number] 10:00:00* Test Item Value Reference Range Comments CHLORIDE (test code=CL/ABG) MEQ/L 100-108 CREATININE [id number] 10:00:00* Test Item Value Reference Range Comments CREATININE ABG (test code=CREAABG) mg/dL 0.8-1.3 [id number] 10:00:00* Test Item Value Reference Range Comments HEMOGLOBIN (test code=HGB/ABG) G/DL 12.5-16.9 [id number] 10:00:00* Test Item Value Reference Range Comments HEMATOCRIT (test code=HCT/ABG) % 37.5-50.7 POC IONIZED [id number] 10:00:00* Test Item Value Reference Range Comments POC IONIZED CALCIUM (test code=POCCA) MMOL/L 1.12-1.32 POC [id number] 10:00:00* Test Item Value Reference Range Comments POC GLUCOSE (test code=POCGLU) MG/DL 70-110 POC ARTERIAL BLOOD [id number] 10:00:00* Test Item Value Reference Range Comments POC ARTERIAL BLOOD GAS PH (test code=POCPHA) 7.412 7.35-7.45 POC ARTERIAL BLOOD GAS PCO2 (test code=SNYFXH0E) 38.5 mmHg 35.0-45 POC TCO2 ARTERIAL (test code=POCTCO2) 25.7 POC ARTERIAL BLOOD GAS PO2 (test code=WLJBT0T) 425.2 mmHg 80-100.0 POC HCO3 ARTERIAL (test code=OEGJUQ3Q) 24.5 MMOL/L 22.0-26.0 POC BASE EXCESS (test code=POCBEA) -0.1 MMOL/L -4.0-4.0 POC O2 SATURATION (test code=POCO2S) 100.0 % 90-100 [id number] 10:00:00* Test Item Value Reference Range Comments SODIUM (test code=NA/ABG) 138 MEQ/L 134-147 [id number] 10:00:00* Test Item Value Reference Range Comments POTASSIUM (test code=K/ABG) 4.5 MEQ/L 3.4-5.0 [id number] 10:00:00* Test Item Value Reference Range Comments CHLORIDE (test code=CL/ABG) MEQ/L 100-108 CREATININE [id number] 10:00:00* Test Item Value Reference Range Comments CREATININE ABG (test code=CREAABG) mg/dL 0.8-1.3 [id number] 10:00:00* Test Item Value Reference Range Comments HEMOGLOBIN (test code=HGB/ABG) G/DL 12.5-16.9 [id number] 10:00:00* Test Item Value Reference Range Comments HEMATOCRIT (test code=HCT/ABG) % 37.5-50.7 POC IONIZED [id number] 10:00:00* Test Item Value Reference Range Comments POC IONIZED CALCIUM (test code=POCCA) MMOL/L 1.12-1.32 POC [id number] 10:00:00* Test Item Value Reference Range Comments POC GLUCOSE (test code=POCGLU) MG/DL 70-110 POC ARTERIAL BLOOD [id number] 10:00:00* Test Item Value Reference Range Comments POC ARTERIAL BLOOD GAS PH (test code=POCPHA) 7.412 7.35-7.45 POC ARTERIAL BLOOD GAS PCO2 (test code=KDPYAU6L) 38.5 mmHg 35.0-45 POC TCO2 ARTERIAL (test code=POCTCO2) 25.7 POC ARTERIAL BLOOD GAS PO2 (test code=NAXGB3S) 425.2 mmHg 80-100.0 POC HCO3 ARTERIAL (test code=EQSZHR7L) 24.5 MMOL/L 22.0-26.0 POC BASE EXCESS (test code=POCBEA) -0.1 MMOL/L -4.0-4.0 POC O2 SATURATION (test code=POCO2S) 100.0 % 90-100 [id number] 10:00:00* Test Item Value Reference Range Comments SODIUM (test code=NA/ABG) 138 MEQ/L 134-147 [id number] 10:00:00* Test Item Value Reference Range Comments POTASSIUM (test code=K/ABG) 4.5 MEQ/L 3.4-5.0 [id number] 10:00:00* Test Item Value Reference Range Comments CHLORIDE (test code=CL/ABG) MEQ/L 100-108 CREATININE [id number] 10:00:00* Test Item Value Reference Range Comments CREATININE ABG (test code=CREAABG) mg/dL 0.8-1.3 [id number] 10:00:00* Test Item Value Reference Range Comments HEMOGLOBIN (test code=HGB/ABG) G/DL 12.5-16.9 [id number] 10:00:00* Test Item Value Reference Range Comments HEMATOCRIT (test code=HCT/ABG) % 37.5-50.7 POC IONIZED [id number] 10:00:00* Test Item Value Reference Range Comments POC IONIZED CALCIUM (test code=POCCA) 1.13 MMOL/L 1.12-1.32 POC [id number] 10:00:00* Test Item Value Reference Range Comments POC GLUCOSE (test code=POCGLU) MG/DL 70-110 POC ARTERIAL BLOOD [id number] 10:00:00* Test Item Value Reference Range Comments POC ARTERIAL BLOOD GAS PH (test code=POCPHA) 7.412 7.35-7.45 POC ARTERIAL BLOOD GAS PCO2 (test code=FHXEOU1R) 38.5 mmHg 35.0-45 POC TCO2 ARTERIAL (test code=POCTCO2) 25.7 POC ARTERIAL BLOOD GAS PO2 (test code=TZJSP5Q) 425.2 mmHg 80-100.0 POC HCO3 ARTERIAL (test code=JAVKKE0D) 24.5 MMOL/L 22.0-26.0 POC BASE EXCESS (test code=POCBEA) -0.1 MMOL/L -4.0-4.0 POC O2 SATURATION (test code=POCO2S) 100.0 % 90-100 [id number] 10:00:00* Test Item Value Reference Range Comments SODIUM (test code=NA/ABG) 138 MEQ/L 134-147 [id number] 10:00:00* Test Item Value Reference Range Comments POTASSIUM (test code=K/ABG) 4.5 MEQ/L 3.4-5.0 [id number] 10:00:00* Test Item Value Reference Range Comments CHLORIDE (test code=CL/ABG) MEQ/L 100-108 CREATININE [id number] 10:00:00* Test Item Value Reference Range Comments CREATININE ABG (test code=CREAABG) mg/dL 0.8-1.3 [id number] 10:00:00* Test Item Value Reference Range Comments HEMOGLOBIN (test code=HGB/ABG) G/DL 12.5-16.9 [id number] 10:00:00* Test Item Value Reference Range Comments HEMATOCRIT (test code=HCT/ABG) % 37.5-50.7 POC IONIZED [id number] 10:00:00* Test Item Value Reference Range Comments POC IONIZED CALCIUM (test code=POCCA) 1.13 MMOL/L 1.12-1.32 POC [id number] 10:00:00* Test Item Value Reference Range Comments POC GLUCOSE (test code=POCGLU) 172 MG/DL 70-110 POC ARTERIAL BLOOD [id number] 10:00:00* Test Item Value Reference Range Comments POC ARTERIAL BLOOD GAS PH (test code=POCPHA) 7.412 7.35-7.45 POC ARTERIAL BLOOD GAS PCO2 (test code=IAKWBE0B) 38.5 mmHg 35.0-45 POC TCO2 ARTERIAL (test code=POCTCO2) 25.7 POC ARTERIAL BLOOD GAS PO2 (test code=ZRUQU9E) 425.2 mmHg 80-100.0 POC HCO3 ARTERIAL (test code=OWNAZH4P) 24.5 MMOL/L 22.0-26.0 POC BASE EXCESS (test code=POCBEA) -0.1 MMOL/L -4.0-4.0 POC O2 SATURATION (test code=POCO2S) 100.0 % 90-100 [id number] 10:00:00* Test Item Value Reference Range Comments SODIUM (test code=NA/ABG) 138 MEQ/L 134-147 [id number] 10:00:00* Test Item Value Reference Range Comments POTASSIUM (test code=K/ABG) 4.5 MEQ/L 3.4-5.0 [id number] 10:00:00* Test Item Value Reference Range Comments CHLORIDE (test code=CL/ABG) MEQ/L 100-108 CREATININE [id number] 10:00:00* Test Item Value Reference Range Comments CREATININE ABG (test code=CREAABG) mg/dL 0.8-1.3 [id number] 10:00:00* Test Item Value Reference Range Comments HEMOGLOBIN (test code=HGB/ABG) G/DL 12.5-16.9 [id number] 10:00:00* Test Item Value Reference Range Comments HEMATOCRIT (test code=HCT/ABG) 21 % 37.5-50.7 POC IONIZED [id number] 10:00:00* Test Item Value Reference Range Comments POC IONIZED CALCIUM (test code=POCCA) 1.13 MMOL/L 1.12-1.32 POC [id number] 10:00:00* Test Item Value Reference Range Comments POC GLUCOSE (test code=POCGLU) 172 MG/DL 70-110 POC ARTERIAL BLOOD [id number] 10:00:00* Test Item Value Reference Range Comments POC ARTERIAL BLOOD GAS PH (test code=POCPHA) 7.412 7.35-7.45 POC ARTERIAL BLOOD GAS PCO2 (test code=GRLNAA6Y) 38.5 mmHg 35.0-45 POC TCO2 ARTERIAL (test code=POCTCO2) 25.7 POC ARTERIAL BLOOD GAS PO2 (test code=SZWHQ8C) 425.2 mmHg 80-100.0 POC HCO3 ARTERIAL (test code=MBCRPR8D) 24.5 MMOL/L 22.0-26.0 POC BASE EXCESS (test code=POCBEA) -0.1 MMOL/L -4.0-4.0 POC O2 SATURATION (test code=POCO2S) 100.0 % 90-100 [id number] 10:00:00* Test Item Value Reference Range Comments SODIUM (test code=NA/ABG) 138 MEQ/L 134-147 [id number] 10:00:00* Test Item Value Reference Range Comments POTASSIUM (test code=K/ABG) 4.5 MEQ/L 3.4-5.0 [id number] 10:00:00* Test Item Value Reference Range Comments CHLORIDE (test code=CL/ABG) MEQ/L 100-108 CREATININE [id number] 10:00:00* Test Item Value Reference Range Comments CREATININE ABG (test code=CREAABG) mg/dL 0.8-1.3 [id number] 10:00:00* Test Item Value Reference Range Comments HEMOGLOBIN (test code=HGB/ABG) 7.3 G/DL 12.5-16.9 [id number] 10:00:00* Test Item Value Reference Range Comments HEMATOCRIT (test code=HCT/ABG) 21 % 37.5-50.7 POC IONIZED [id number] 10:00:00* Test Item Value Reference Range Comments POC IONIZED CALCIUM (test code=POCCA) 1.13 MMOL/L 1.12-1.32 POC [id number] 10:00:00* Test Item Value Reference Range Comments POC GLUCOSE (test code=POCGLU) 172 MG/DL 70-110 POC ARTERIAL BLOOD [id number] 10:00:00* Test Item Value Reference Range Comments POC ARTERIAL BLOOD GAS PH (test code=POCPHA) 7.412 7.35-7.45 POC ARTERIAL BLOOD GAS PCO2 (test code=VSHIRU4F) 38.5 mmHg 35.0-45 POC TCO2 ARTERIAL (test code=POCTCO2) 25.7 POC ARTERIAL BLOOD GAS PO2 (test code=EZALI3O) 425.2 mmHg 80-100.0 POC HCO3 ARTERIAL (test code=TCEBLE3U) 24.5 MMOL/L 22.0-26.0 POC BASE EXCESS (test code=POCBEA) -0.1 MMOL/L -4.0-4.0 POC O2 SATURATION (test code=POCO2S) 100.0 % 90-100 [id number] 10:00:00* Test Item Value Reference Range Comments SODIUM (test code=NA/ABG) 138 MEQ/L 134-147 [id number] 10:00:00* Test Item Value Reference Range Comments POTASSIUM (test code=K/ABG) 4.5 MEQ/L 3.4-5.0 [id number] 10:00:00* Test Item Value Reference Range Comments CHLORIDE (test code=CL/ABG) 106 MEQ/L 100-108 CREATININE [id number] 10:00:00* Test Item Value Reference Range Comments CREATININE ABG (test code=CREAABG) mg/dL 0.8-1.3 [id number] 10:00:00* Test Item Value Reference Range Comments HEMOGLOBIN (test code=HGB/ABG) 7.3 G/DL 12.5-16.9 [id number] 10:00:00* Test Item Value Reference Range Comments HEMATOCRIT (test code=HCT/ABG) 21 % 37.5-50.7 POC IONIZED [id number] 10:00:00* Test Item Value Reference Range Comments POC IONIZED CALCIUM (test code=POCCA) 1.13 MMOL/L 1.12-1.32 POC [id number] 10:00:00* Test Item Value Reference Range Comments POC GLUCOSE (test code=POCGLU) 172 MG/DL 70-110 POC ARTERIAL BLOOD [id number] 10:00:00* Test Item Value Reference Range Comments POC ARTERIAL BLOOD GAS PH (test code=POCPHA) 7.412 7.35-7.45 POC ARTERIAL BLOOD GAS PCO2 (test code=WGXCPF2E) 38.5 mmHg 35.0-45 POC TCO2 ARTERIAL (test code=POCTCO2) 25.7 POC ARTERIAL BLOOD GAS PO2 (test code=JDALZ5C) 425.2 mmHg 80-100.0 POC HCO3 ARTERIAL (test code=TPCMJS1W) 24.5 MMOL/L 22.0-26.0 POC BASE EXCESS (test code=POCBEA) -0.1 MMOL/L -4.0-4.0 POC O2 SATURATION (test code=POCO2S) 100.0 % 90-100 [id number] 10:00:00* Test Item Value Reference Range Comments SODIUM (test code=NA/ABG) 138 MEQ/L 134-147 [id number] 10:00:00* Test Item Value Reference Range Comments POTASSIUM (test code=K/ABG) 4.5 MEQ/L 3.4-5.0 [id number] 10:00:00* Test Item Value Reference Range Comments CHLORIDE (test code=CL/ABG) 106 MEQ/L 100-108 CREATININE [id number] 10:00:00* Test Item Value Reference Range Comments CREATININE ABG (test code=CREAABG) 0.8 mg/dL 0.8-1.3 [id number] 10:00:00* Test Item Value Reference Range Comments HEMOGLOBIN (test code=HGB/ABG) 7.3 G/DL 12.5-16.9 [id number] 10:00:00* Test Item Value Reference Range Comments HEMATOCRIT (test code=HCT/ABG) 21 % 37.5-50.7 POC IONIZED [id number] 10:00:00* Test Item Value Reference Range Comments POC IONIZED CALCIUM (test code=POCCA) 1.13 MMOL/L 1.12-1.32 POC [id number] 10:00:00* Test Item Value Reference Range Comments POC GLUCOSE (test code=POCGLU) 172 MG/DL 70-110 POC ARTERIAL BLOOD [id number] 09:38:00* Test Item Value Reference Range Comments POC ARTERIAL BLOOD GAS PH (test code=POCPHA) 7.381 7.35-7.45 POC ARTERIAL BLOOD GAS PCO2 (test code=ITJVHC8G) 38.2 mmHg 35.0-45 POC TCO2 ARTERIAL (test code=POCTCO2) 23.8 POC ARTERIAL BLOOD GAS PO2 (test code=CMFNK5B) 204.7 mmHg 80-100.0 POC HCO3 ARTERIAL (test code=ASMULV8V) 22.6 MMOL/L 22.0-26.0 POC BASE EXCESS (test code=POCBEA) -2.2 MMOL/L -4.0-4.0 POC O2 SATURATION (test code=POCO2S) 99.7 % 90-100 [id number] 09:38:00* Test Item Value Reference Range Comments SODIUM (test code=NA/ABG) MEQ/L 134-147 [id number] 09:38:00* Test Item Value Reference Range Comments POTASSIUM (test code=K/ABG) MEQ/L 3.4-5.0 [id number] 09:38:00* Test Item Value Reference Range Comments CHLORIDE (test code=CL/ABG) MEQ/L 100-108 CREATININE [id number] 09:38:00* Test Item Value Reference Range Comments CREATININE ABG (test code=CREAABG) mg/dL 0.8-1.3 [id number] 09:38:00* Test Item Value Reference Range Comments HEMOGLOBIN (test code=HGB/ABG) G/DL 12.5-16.9 [id number] 09:38:00* Test Item Value Reference Range Comments HEMATOCRIT (test code=HCT/ABG) % 37.5-50.7 POC IONIZED [id number] 09:38:00* Test Item Value Reference Range Comments POC IONIZED CALCIUM (test code=POCCA) MMOL/L 1.12-1.32 POC [id number] 09:38:00* Test Item Value Reference Range Comments POC GLUCOSE (test code=POCGLU) MG/DL 70-110 POC ARTERIAL BLOOD [id number] 09:38:00* Test Item Value Reference Range Comments POC ARTERIAL BLOOD GAS PH (test code=POCPHA) 7.381 7.35-7.45 POC ARTERIAL BLOOD GAS PCO2 (test code=TASSVR1M) 38.2 mmHg 35.0-45 POC TCO2 ARTERIAL (test code=POCTCO2) 23.8 POC ARTERIAL BLOOD GAS PO2 (test code=DXJYR5I) 204.7 mmHg 80-100.0 POC HCO3 ARTERIAL (test code=KJOHIA9I) 22.6 MMOL/L 22.0-26.0 POC BASE EXCESS (test code=POCBEA) -2.2 MMOL/L -4.0-4.0 POC O2 SATURATION (test code=POCO2S) 99.7 % 90-100 [id number] 09:38:00* Test Item Value Reference Range Comments SODIUM (test code=NA/ABG) 138 MEQ/L 134-147 [id number] 09:38:00* Test Item Value Reference Range Comments POTASSIUM (test code=K/ABG) MEQ/L 3.4-5.0 [id number] 09:38:00* Test Item Value Reference Range Comments CHLORIDE (test code=CL/ABG) MEQ/L 100-108 CREATININE [id number] 09:38:00* Test Item Value Reference Range Comments CREATININE ABG (test code=CREAABG) mg/dL 0.8-1.3 [id number] 09:38:00* Test Item Value Reference Range Comments HEMOGLOBIN (test code=HGB/ABG) G/DL 12.5-16.9 [id number] 09:38:00* Test Item Value Reference Range Comments HEMATOCRIT (test code=HCT/ABG) % 37.5-50.7 POC IONIZED [id number] 09:38:00* Test Item Value Reference Range Comments POC IONIZED CALCIUM (test code=POCCA) MMOL/L 1.12-1.32 POC [id number] 09:38:00* Test Item Value Reference Range Comments POC GLUCOSE (test code=POCGLU) MG/DL 70-110 POC ARTERIAL BLOOD [id number] 09:38:00* Test Item Value Reference Range Comments POC ARTERIAL BLOOD GAS PH (test code=POCPHA) 7.381 7.35-7.45 POC ARTERIAL BLOOD GAS PCO2 (test code=RVHZKS6G) 38.2 mmHg 35.0-45 POC TCO2 ARTERIAL (test code=POCTCO2) 23.8 POC ARTERIAL BLOOD GAS PO2 (test code=DPGCT4L) 204.7 mmHg 80-100.0 POC HCO3 ARTERIAL (test code=BVTIIW3I) 22.6 MMOL/L 22.0-26.0 POC BASE EXCESS (test code=POCBEA) -2.2 MMOL/L -4.0-4.0 POC O2 SATURATION (test code=POCO2S) 99.7 % 90-100 [id number] 09:38:00* Test Item Value Reference Range Comments SODIUM (test code=NA/ABG) 138 MEQ/L 134-147 [id number] 09:38:00* Test Item Value Reference Range Comments POTASSIUM (test code=K/ABG) 4.1 MEQ/L 3.4-5.0 [id number] 09:38:00* Test Item Value Reference Range Comments CHLORIDE (test code=CL/ABG) MEQ/L 100-108 CREATININE [id number] 09:38:00* Test Item Value Reference Range Comments CREATININE ABG (test code=CREAABG) mg/dL 0.8-1.3 [id number] 09:38:00* Test Item Value Reference Range Comments HEMOGLOBIN (test code=HGB/ABG) G/DL 12.5-16.9 [id number] 09:38:00* Test Item Value Reference Range Comments HEMATOCRIT (test code=HCT/ABG) % 37.5-50.7 POC IONIZED [id number] 09:38:00* Test Item Value Reference Range Comments POC IONIZED CALCIUM (test code=POCCA) MMOL/L 1.12-1.32 POC [id number] 09:38:00* Test Item Value Reference Range Comments POC GLUCOSE (test code=POCGLU) MG/DL 70-110 POC ARTERIAL BLOOD [id number] 09:38:00* Test Item Value Reference Range Comments POC ARTERIAL BLOOD GAS PH (test code=POCPHA) 7.381 7.35-7.45 POC ARTERIAL BLOOD GAS PCO2 (test code=AITCJZ9X) 38.2 mmHg 35.0-45 POC TCO2 ARTERIAL (test code=POCTCO2) 23.8 POC ARTERIAL BLOOD GAS PO2 (test code=JCWZB3B) 204.7 mmHg 80-100.0 POC HCO3 ARTERIAL (test code=ZBDKYH3R) 22.6 MMOL/L 22.0-26.0 POC BASE EXCESS (test code=POCBEA) -2.2 MMOL/L -4.0-4.0 POC O2 SATURATION (test code=POCO2S) 99.7 % 90-100 [id number] 09:38:00* Test Item Value Reference Range Comments SODIUM (test code=NA/ABG) 138 MEQ/L 134-147 [id number] 09:38:00* Test Item Value Reference Range Comments POTASSIUM (test code=K/ABG) 4.1 MEQ/L 3.4-5.0 [id number] 09:38:00* Test Item Value Reference Range Comments CHLORIDE (test code=CL/ABG) MEQ/L 100-108 CREATININE [id number] 09:38:00* Test Item Value Reference Range Comments CREATININE ABG (test code=CREAABG) mg/dL 0.8-1.3 [id number] 09:38:00* Test Item Value Reference Range Comments HEMOGLOBIN (test code=HGB/ABG) G/DL 12.5-16.9 [id number] 09:38:00* Test Item Value Reference Range Comments HEMATOCRIT (test code=HCT/ABG) % 37.5-50.7 POC IONIZED [id number] 09:38:00* Test Item Value Reference Range Comments POC IONIZED CALCIUM (test code=POCCA) 1.21 MMOL/L 1.12-1.32 POC [id number] 09:38:00* Test Item Value Reference Range Comments POC GLUCOSE (test code=POCGLU) MG/DL 70-110 POC ARTERIAL BLOOD [id number] 09:38:00* Test Item Value Reference Range Comments POC ARTERIAL BLOOD GAS PH (test code=POCPHA) 7.381 7.35-7.45 POC ARTERIAL BLOOD GAS PCO2 (test code=IFVUAF7N) 38.2 mmHg 35.0-45 POC TCO2 ARTERIAL (test code=POCTCO2) 23.8 POC ARTERIAL BLOOD GAS PO2 (test code=TNPGT3P) 204.7 mmHg 80-100.0 POC HCO3 ARTERIAL (test code=MHFCPS1N) 22.6 MMOL/L 22.0-26.0 POC BASE EXCESS (test code=POCBEA) -2.2 MMOL/L -4.0-4.0 POC O2 SATURATION (test code=POCO2S) 99.7 % 90-100 [id number] 09:38:00* Test Item Value Reference Range Comments SODIUM (test code=NA/ABG) 138 MEQ/L 134-147 [id number] 09:38:00* Test Item Value Reference Range Comments POTASSIUM (test code=K/ABG) 4.1 MEQ/L 3.4-5.0 [id number] 09:38:00* Test Item Value Reference Range Comments CHLORIDE (test code=CL/ABG) MEQ/L 100-108 CREATININE [id number] 09:38:00* Test Item Value Reference Range Comments CREATININE ABG (test code=CREAABG) mg/dL 0.8-1.3 [id number] 09:38:00* Test Item Value Reference Range Comments HEMOGLOBIN (test code=HGB/ABG) G/DL 12.5-16.9 [id number] 09:38:00* Test Item Value Reference Range Comments HEMATOCRIT (test code=HCT/ABG) % 37.5-50.7 POC IONIZED [id number] 09:38:00* Test Item Value Reference Range Comments POC IONIZED CALCIUM (test code=POCCA) 1.21 MMOL/L 1.12-1.32 POC [id number] 09:38:00* Test Item Value Reference Range Comments POC GLUCOSE (test code=POCGLU) 182 MG/DL 70-110 POC ARTERIAL BLOOD [id number] 09:38:00* Test Item Value Reference Range Comments POC ARTERIAL BLOOD GAS PH (test code=POCPHA) 7.381 7.35-7.45 POC ARTERIAL BLOOD GAS PCO2 (test code=IZBNGK7A) 38.2 mmHg 35.0-45 POC TCO2 ARTERIAL (test code=POCTCO2) 23.8 POC ARTERIAL BLOOD GAS PO2 (test code=GFJRR9E) 204.7 mmHg 80-100.0 POC HCO3 ARTERIAL (test code=WNHFGD9L) 22.6 MMOL/L 22.0-26.0 POC BASE EXCESS (test code=POCBEA) -2.2 MMOL/L -4.0-4.0 POC O2 SATURATION (test code=POCO2S) 99.7 % 90-100 [id number] 09:38:00* Test Item Value Reference Range Comments SODIUM (test code=NA/ABG) 138 MEQ/L 134-147 [id number] 09:38:00* Test Item Value Reference Range Comments POTASSIUM (test code=K/ABG) 4.1 MEQ/L 3.4-5.0 [id number] 09:38:00* Test Item Value Reference Range Comments CHLORIDE (test code=CL/ABG) MEQ/L 100-108 CREATININE [id number] 09:38:00* Test Item Value Reference Range Comments CREATININE ABG (test code=CREAABG) mg/dL 0.8-1.3 [id number] 09:38:00* Test Item Value Reference Range Comments HEMOGLOBIN (test code=HGB/ABG) G/DL 12.5-16.9 [id number] 09:38:00* Test Item Value Reference Range Comments HEMATOCRIT (test code=HCT/ABG) 31 % 37.5-50.7 POC IONIZED [id number] 09:38:00* Test Item Value Reference Range Comments POC IONIZED CALCIUM (test code=POCCA) 1.21 MMOL/L 1.12-1.32 POC [id number] 09:38:00* Test Item Value Reference Range Comments POC GLUCOSE (test code=POCGLU) 182 MG/DL 70-110 POC ARTERIAL BLOOD [id number] 09:38:00* Test Item Value Reference Range Comments POC ARTERIAL BLOOD GAS PH (test code=POCPHA) 7.381 7.35-7.45 POC ARTERIAL BLOOD GAS PCO2 (test code=GJSHRR6S) 38.2 mmHg 35.0-45 POC TCO2 ARTERIAL (test code=POCTCO2) 23.8 POC ARTERIAL BLOOD GAS PO2 (test code=YYLKZ8D) 204.7 mmHg 80-100.0 POC HCO3 ARTERIAL (test code=FLPIWK5N) 22.6 MMOL/L 22.0-26.0 POC BASE EXCESS (test code=POCBEA) -2.2 MMOL/L -4.0-4.0 POC O2 SATURATION (test code=POCO2S) 99.7 % 90-100 [id number] 09:38:00* Test Item Value Reference Range Comments SODIUM (test code=NA/ABG) 138 MEQ/L 134-147 [id number] 09:38:00* Test Item Value Reference Range Comments POTASSIUM (test code=K/ABG) 4.1 MEQ/L 3.4-5.0 [id number] 09:38:00* Test Item Value Reference Range Comments CHLORIDE (test code=CL/ABG) MEQ/L 100-108 CREATININE [id number] 09:38:00* Test Item Value Reference Range Comments CREATININE ABG (test code=CREAABG) mg/dL 0.8-1.3 [id number] 09:38:00* Test Item Value Reference Range Comments HEMOGLOBIN (test code=HGB/ABG) 10.6 G/DL 12.5-16.9 [id number] 09:38:00* Test Item Value Reference Range Comments HEMATOCRIT (test code=HCT/ABG) 31 % 37.5-50.7 POC IONIZED [id number] 09:38:00* Test Item Value Reference Range Comments POC IONIZED CALCIUM (test code=POCCA) 1.21 MMOL/L 1.12-1.32 POC [id number] 09:38:00* Test Item Value Reference Range Comments POC GLUCOSE (test code=POCGLU) 182 MG/DL 70-110 POC ARTERIAL BLOOD [id number] 09:38:00* Test Item Value Reference Range Comments POC ARTERIAL BLOOD GAS PH (test code=POCPHA) 7.381 7.35-7.45 POC ARTERIAL BLOOD GAS PCO2 (test code=VNWMCT6X) 38.2 mmHg 35.0-45 POC TCO2 ARTERIAL (test code=POCTCO2) 23.8 POC ARTERIAL BLOOD GAS PO2 (test code=EKDHZ2I) 204.7 mmHg 80-100.0 POC HCO3 ARTERIAL (test code=GEWDWC8B) 22.6 MMOL/L 22.0-26.0 POC BASE EXCESS (test code=POCBEA) -2.2 MMOL/L -4.0-4.0 POC O2 SATURATION (test code=POCO2S) 99.7 % 90-100 [id number] 09:38:00* Test Item Value Reference Range Comments SODIUM (test code=NA/ABG) 138 MEQ/L 134-147 [id number] 09:38:00* Test Item Value Reference Range Comments POTASSIUM (test code=K/ABG) 4.1 MEQ/L 3.4-5.0 [id number] 09:38:00* Test Item Value Reference Range Comments CHLORIDE (test code=CL/ABG) 109 MEQ/L 100-108 CREATININE [id number] 09:38:00* Test Item Value Reference Range Comments CREATININE ABG (test code=CREAABG) mg/dL 0.8-1.3 [id number] 09:38:00* Test Item Value Reference Range Comments HEMOGLOBIN (test code=HGB/ABG) 10.6 G/DL 12.5-16.9 [id number] 09:38:00* Test Item Value Reference Range Comments HEMATOCRIT (test code=HCT/ABG) 31 % 37.5-50.7 POC IONIZED [id number] 09:38:00* Test Item Value Reference Range Comments POC IONIZED CALCIUM (test code=POCCA) 1.21 MMOL/L 1.12-1.32 POC [id number] 09:38:00* Test Item Value Reference Range Comments POC GLUCOSE (test code=POCGLU) 182 MG/DL 70-110 POC ARTERIAL BLOOD [id number] 09:38:00* Test Item Value Reference Range Comments POC ARTERIAL BLOOD GAS PH (test code=POCPHA) 7.381 7.35-7.45 POC ARTERIAL BLOOD GAS PCO2 (test code=IUNDCI4K) 38.2 mmHg 35.0-45 POC TCO2 ARTERIAL (test code=POCTCO2) 23.8 POC ARTERIAL BLOOD GAS PO2 (test code=ZDUJO9N) 204.7 mmHg 80-100.0 POC HCO3 ARTERIAL (test code=MCIZAT8Q) 22.6 MMOL/L 22.0-26.0 POC BASE EXCESS (test code=POCBEA) -2.2 MMOL/L -4.0-4.0 POC O2 SATURATION (test code=POCO2S) 99.7 % 90-100 [id number] 09:38:00* Test Item Value Reference Range Comments SODIUM (test code=NA/ABG) 138 MEQ/L 134-147 [id number] 09:38:00* Test Item Value Reference Range Comments POTASSIUM (test code=K/ABG) 4.1 MEQ/L 3.4-5.0 [id number] 09:38:00* Test Item Value Reference Range Comments CHLORIDE (test code=CL/ABG) 109 MEQ/L 100-108 CREATININE [id number] 09:38:00* Test Item Value Reference Range Comments CREATININE ABG (test code=CREAABG) 0.9 mg/dL 0.8-1.3 [id number] 09:38:00* Test Item Value Reference Range Comments HEMOGLOBIN (test code=HGB/ABG) 10.6 G/DL 12.5-16.9 [id number] 09:38:00* Test Item Value Reference Range Comments HEMATOCRIT (test code=HCT/ABG) 31 % 37.5-50.7 POC IONIZED [id number] 09:38:00* Test Item Value Reference Range Comments POC IONIZED CALCIUM (test code=POCCA) 1.21 MMOL/L 1.12-1.32 POC [id number] 09:38:00* Test Item Value Reference Range Comments POC GLUCOSE (test code=POCGLU) 182 MG/DL 70-110 BASIC METABOLIC [id number] 07:12:00* Test Item Value Reference Range Comments SODIUM (test code=NA) 137 mEq/L 134-147 POTASSIUM (test code=K) 4.6 mEq/L 3.4-5.0 CHLORIDE (test code=CL) 104 mEq/L 100-108 CARBON DIOXIDE (test code=CO2) 26 mEq/L 21-33 ANION GAP (test code=GAP) 12 0-20 GLUCOSE (test code=GLU) 135 mg/dL 70-110 BLOOD UREA NITROGEN (test code=BUN) 33 mg/dL 7-18 GLOMERULAR FILTRATION RATE (test code=GFR) 49.8 70-80 Units of measure=ml/min/1.73 m2 CREATININE (test code=CREAT) 1.4 mg/dL 0.6-1.3 CALCIUM (test code=CA) 8.7 mg/dL 8.0-10.5 LIPID PROFILE (CORONARY RISK)2018-08-16 07:12:00* Test Item Value Reference Range Comments TRIGLYCERIDES (test code=TRIG) 116 mg/dL 40-150 CHOLESTEROL (test code=CHOL) 134 mg/dL <200 CHOLESTEROL/HDL RATIO (test code=CHOLHDL) 2.91 RATIO 3.43-4.97 RISK ASSOCIATED WITH CHOL/HDL RATIOS: RISK MALE FEMALE1/2 AVERAGE 3.43 3.27AVERAGE 4.97 4.442X AVERAGE 9.55 7.053X AVERAGE 23.39 11.04 NOTE THAT THE REFERENCE VALUE IS RELATEDTO RISK LEVELS RECOMMENDED BY THE NATL.HEART, LUNG, AND BLOOD INST. HDL CHOLESTEROL (test code=HDL) 46.0 mg/dL 32-72 LIPOPROTEIN LDL (test code=LDL) 73 mg/dL 0-100 <100 [id number] NEAR OPTIMAL/ABOVE [id number] HIGH>JI=637 VERY HIGH*Guidelines provided by the National Cholesterol EducationProgram Adult Treatment Panel III POC ARTERIAL BLOOD [id number] 07:07:00* Test Item Value Reference Range Comments POC ARTERIAL BLOOD GAS PH (test code=POCPHA) 7.365 7.35-7.45 POC ARTERIAL BLOOD GAS PCO2 (test code=GRQHPX3O) 47.5 mmHg 35.0-45 POC TCO2 ARTERIAL (test code=POCTCO2) 28.6 POC ARTERIAL BLOOD GAS PO2 (test code=MEOKT7Q) 90.0 mmHg 80-100.0 POC HCO3 ARTERIAL (test code=UGVRVT6W) 27.2 MMOL/L 22.0-26.0 POC BASE EXCESS (test code=POCBEA) 1.2 MMOL/L -4.0-4.0 POC O2 SATURATION (test code=POCO2S) 96.5 % 90-100 [id number] 07:07:00* Test Item Value Reference Range Comments SODIUM (test code=NA/ABG) MEQ/L 134-147 [id number] 07:07:00* Test Item Value Reference Range Comments POTASSIUM (test code=K/ABG) MEQ/L 3.4-5.0 [id number] 07:07:00* Test Item Value Reference Range Comments CHLORIDE (test code=CL/ABG) MEQ/L 100-108 CREATININE [id number] 07:07:00* Test Item Value Reference Range Comments CREATININE ABG (test code=CREAABG) mg/dL 0.8-1.3 [id number] 07:07:00* Test Item Value Reference Range Comments HEMOGLOBIN (test code=HGB/ABG) G/DL 12.5-16.9 [id number] 07:07:00* Test Item Value Reference Range Comments HEMATOCRIT (test code=HCT/ABG) % 37.5-50.7 POC IONIZED [id number] 07:07:00* Test Item Value Reference Range Comments POC IONIZED CALCIUM (test code=POCCA) MMOL/L 1.12-1.32 POC [id number] 07:07:00* Test Item Value Reference Range Comments POC GLUCOSE (test code=POCGLU) MG/DL 70-110 POC ARTERIAL BLOOD [id number] 07:07:00* Test Item Value Reference Range Comments POC ARTERIAL BLOOD GAS PH (test code=POCPHA) 7.365 7.35-7.45 POC ARTERIAL BLOOD GAS PCO2 (test code=XFZKIF4D) 47.5 mmHg 35.0-45 POC TCO2 ARTERIAL (test code=POCTCO2) 28.6 POC ARTERIAL BLOOD GAS PO2 (test code=CHHRJ0U) 90.0 mmHg 80-100.0 POC HCO3 ARTERIAL (test code=DGDJEL3G) 27.2 MMOL/L 22.0-26.0 POC BASE EXCESS (test code=POCBEA) 1.2 MMOL/L -4.0-4.0 POC O2 SATURATION (test code=POCO2S) 96.5 % 90-100 [id number] 07:07:00* Test Item Value Reference Range Comments SODIUM (test code=NA/ABG) 137 MEQ/L 134-147 [id number] 07:07:00* Test Item Value Reference Range Comments POTASSIUM (test code=K/ABG) MEQ/L 3.4-5.0 [id number] 07:07:00* Test Item Value Reference Range Comments CHLORIDE (test code=CL/ABG) MEQ/L 100-108 CREATININE [id number] 07:07:00* Test Item Value Reference Range Comments CREATININE ABG (test code=CREAABG) mg/dL 0.8-1.3 [id number] 07:07:00* Test Item Value Reference Range Comments HEMOGLOBIN (test code=HGB/ABG) G/DL 12.5-16.9 [id number] 07:07:00* Test Item Value Reference Range Comments HEMATOCRIT (test code=HCT/ABG) % 37.5-50.7 POC IONIZED [id number] 07:07:00* Test Item Value Reference Range Comments POC IONIZED CALCIUM (test code=POCCA) MMOL/L 1.12-1.32 POC [id number] 07:07:00* Test Item Value Reference Range Comments POC GLUCOSE (test code=POCGLU) MG/DL 70-110 POC ARTERIAL BLOOD [id number] 07:07:00* Test Item Value Reference Range Comments POC ARTERIAL BLOOD GAS PH (test code=POCPHA) 7.365 7.35-7.45 POC ARTERIAL BLOOD GAS PCO2 (test code=BPUWFN8O) 47.5 mmHg 35.0-45 POC TCO2 ARTERIAL (test code=POCTCO2) 28.6 POC ARTERIAL BLOOD GAS PO2 (test code=SUESG4K) 90.0 mmHg 80-100.0 POC HCO3 ARTERIAL (test code=NZLUND9T) 27.2 MMOL/L 22.0-26.0 POC BASE EXCESS (test code=POCBEA) 1.2 MMOL/L -4.0-4.0 POC O2 SATURATION (test code=POCO2S) 96.5 % 90-100 [id number] 07:07:00* Test Item Value Reference Range Comments SODIUM (test code=NA/ABG) 137 MEQ/L 134-147 [id number] 07:07:00* Test Item Value Reference Range Comments POTASSIUM (test code=K/ABG) 4.5 MEQ/L 3.4-5.0 [id number] 07:07:00* Test Item Value Reference Range Comments CHLORIDE (test code=CL/ABG) MEQ/L 100-108 CREATININE [id number] 07:07:00* Test Item Value Reference Range Comments CREATININE ABG (test code=CREAABG) mg/dL 0.8-1.3 [id number] 07:07:00* Test Item Value Reference Range Comments HEMOGLOBIN (test code=HGB/ABG) G/DL 12.5-16.9 [id number] 07:07:00* Test Item Value Reference Range Comments HEMATOCRIT (test code=HCT/ABG) % 37.5-50.7 POC IONIZED [id number] 07:07:00* Test Item Value Reference Range Comments POC IONIZED CALCIUM (test code=POCCA) MMOL/L 1.12-1.32 POC [id number] 07:07:00* Test Item Value Reference Range Comments POC GLUCOSE (test code=POCGLU) MG/DL 70-110 POC ARTERIAL BLOOD [id number] 07:07:00* Test Item Value Reference Range Comments POC ARTERIAL BLOOD GAS PH (test code=POCPHA) 7.365 7.35-7.45 POC ARTERIAL BLOOD GAS PCO2 (test code=JBCFWT3D) 47.5 mmHg 35.0-45 POC TCO2 ARTERIAL (test code=POCTCO2) 28.6 POC ARTERIAL BLOOD GAS PO2 (test code=CSAXQ9W) 90.0 mmHg 80-100.0 POC HCO3 ARTERIAL (test code=DJRFMX0V) 27.2 MMOL/L 22.0-26.0 POC BASE EXCESS (test code=POCBEA) 1.2 MMOL/L -4.0-4.0 POC O2 SATURATION (test code=POCO2S) 96.5 % 90-100 [id number] 07:07:00* Test Item Value Reference Range Comments SODIUM (test code=NA/ABG) 137 MEQ/L 134-147 [id number] 07:07:00* Test Item Value Reference Range Comments POTASSIUM (test code=K/ABG) 4.5 MEQ/L 3.4-5.0 [id number] 07:07:00* Test Item Value Reference Range Comments CHLORIDE (test code=CL/ABG) MEQ/L 100-108 CREATININE [id number] 07:07:00* Test Item Value Reference Range Comments CREATININE ABG (test code=CREAABG) mg/dL 0.8-1.3 [id number] 07:07:00* Test Item Value Reference Range Comments HEMOGLOBIN (test code=HGB/ABG) G/DL 12.5-16.9 [id number] 07:07:00* Test Item Value Reference Range Comments HEMATOCRIT (test code=HCT/ABG) % 37.5-50.7 POC IONIZED [id number] 07:07:00* Test Item Value Reference Range Comments POC IONIZED CALCIUM (test code=POCCA) 1.23 MMOL/L 1.12-1.32 POC [id number] 07:07:00* Test Item Value Reference Range Comments POC GLUCOSE (test code=POCGLU) MG/DL 70-110 POC ARTERIAL BLOOD [id number] 07:07:00* Test Item Value Reference Range Comments POC ARTERIAL BLOOD GAS PH (test code=POCPHA) 7.365 7.35-7.45 POC ARTERIAL BLOOD GAS PCO2 (test code=JAOLHP8B) 47.5 mmHg 35.0-45 POC TCO2 ARTERIAL (test code=POCTCO2) 28.6 POC ARTERIAL BLOOD GAS PO2 (test code=TKZKE8Z) 90.0 mmHg 80-100.0 POC HCO3 ARTERIAL (test code=GXKSAX6J) 27.2 MMOL/L 22.0-26.0 POC BASE EXCESS (test code=POCBEA) 1.2 MMOL/L -4.0-4.0 POC O2 SATURATION (test code=POCO2S) 96.5 % 90-100 [id number] 07:07:00* Test Item Value Reference Range Comments SODIUM (test code=NA/ABG) 137 MEQ/L 134-147 [id number] 07:07:00* Test Item Value Reference Range Comments POTASSIUM (test code=K/ABG) 4.5 MEQ/L 3.4-5.0 [id number] 07:07:00* Test Item Value Reference Range Comments CHLORIDE (test code=CL/ABG) MEQ/L 100-108 CREATININE [id number] 07:07:00* Test Item Value Reference Range Comments CREATININE ABG (test code=CREAABG) mg/dL 0.8-1.3 [id number] 07:07:00* Test Item Value Reference Range Comments HEMOGLOBIN (test code=HGB/ABG) G/DL 12.5-16.9 [id number] 07:07:00* Test Item Value Reference Range Comments HEMATOCRIT (test code=HCT/ABG) % 37.5-50.7 POC IONIZED [id number] 07:07:00* Test Item Value Reference Range Comments POC IONIZED CALCIUM (test code=POCCA) 1.23 MMOL/L 1.12-1.32 POC [id number] 07:07:00* Test Item Value Reference Range Comments POC GLUCOSE (test code=POCGLU) 170 MG/DL 70-110 POC ARTERIAL BLOOD [id number] 07:07:00* Test Item Value Reference Range Comments POC ARTERIAL BLOOD GAS PH (test code=POCPHA) 7.365 7.35-7.45 POC ARTERIAL BLOOD GAS PCO2 (test code=QHNXBO9H) 47.5 mmHg 35.0-45 POC TCO2 ARTERIAL (test code=POCTCO2) 28.6 POC ARTERIAL BLOOD GAS PO2 (test code=SJZLS8H) 90.0 mmHg 80-100.0 POC HCO3 ARTERIAL (test code=VOAUWQ6U) 27.2 MMOL/L 22.0-26.0 POC BASE EXCESS (test code=POCBEA) 1.2 MMOL/L -4.0-4.0 POC O2 SATURATION (test code=POCO2S) 96.5 % 90-100 [id number] 07:07:00* Test Item Value Reference Range Comments SODIUM (test code=NA/ABG) 137 MEQ/L 134-147 [id number] 07:07:00* Test Item Value Reference Range Comments POTASSIUM (test code=K/ABG) 4.5 MEQ/L 3.4-5.0 [id number] 07:07:00* Test Item Value Reference Range Comments CHLORIDE (test code=CL/ABG) MEQ/L 100-108 CREATININE [id number] 07:07:00* Test Item Value Reference Range Comments CREATININE ABG (test code=CREAABG) mg/dL 0.8-1.3 [id number] 07:07:00* Test Item Value Reference Range Comments HEMOGLOBIN (test code=HGB/ABG) G/DL 12.5-16.9 [id number] 07:07:00* Test Item Value Reference Range Comments HEMATOCRIT (test code=HCT/ABG) 36 % 37.5-50.7 POC IONIZED [id number] 07:07:00* Test Item Value Reference Range Comments POC IONIZED CALCIUM (test code=POCCA) 1.23 MMOL/L 1.12-1.32 POC [id number] 07:07:00* Test Item Value Reference Range Comments POC GLUCOSE (test code=POCGLU) 170 MG/DL 70-110 POC ARTERIAL BLOOD [id number] 07:07:00* Test Item Value Reference Range Comments POC ARTERIAL BLOOD GAS PH (test code=POCPHA) 7.365 7.35-7.45 POC ARTERIAL BLOOD GAS PCO2 (test code=ZKANFE9F) 47.5 mmHg 35.0-45 POC TCO2 ARTERIAL (test code=POCTCO2) 28.6 POC ARTERIAL BLOOD GAS PO2 (test code=XNAKK9Y) 90.0 mmHg 80-100.0 POC HCO3 ARTERIAL (test code=ZQAYYU9J) 27.2 MMOL/L 22.0-26.0 POC BASE EXCESS (test code=POCBEA) 1.2 MMOL/L -4.0-4.0 POC O2 SATURATION (test code=POCO2S) 96.5 % 90-100 [id number] 07:07:00* Test Item Value Reference Range Comments SODIUM (test code=NA/ABG) 137 MEQ/L 134-147 [id number] 07:07:00* Test Item Value Reference Range Comments POTASSIUM (test code=K/ABG) 4.5 MEQ/L 3.4-5.0 [id number] 07:07:00* Test Item Value Reference Range Comments CHLORIDE (test code=CL/ABG) MEQ/L 100-108 CREATININE [id number] 07:07:00* Test Item Value Reference Range Comments CREATININE ABG (test code=CREAABG) mg/dL 0.8-1.3 [id number] 07:07:00* Test Item Value Reference Range Comments HEMOGLOBIN (test code=HGB/ABG) 12.2 G/DL 12.5-16.9 [id number] 07:07:00* Test Item Value Reference Range Comments HEMATOCRIT (test code=HCT/ABG) 36 % 37.5-50.7 POC IONIZED [id number] 07:07:00* Test Item Value Reference Range Comments POC IONIZED CALCIUM (test code=POCCA) 1.23 MMOL/L 1.12-1.32 POC [id number] 07:07:00* Test Item Value Reference Range Comments POC GLUCOSE (test code=POCGLU) 170 MG/DL 70-110 POC ARTERIAL BLOOD [id number] 07:07:00* Test Item Value Reference Range Comments POC ARTERIAL BLOOD GAS PH (test code=POCPHA) 7.365 7.35-7.45 POC ARTERIAL BLOOD GAS PCO2 (test code=ORZMCY5Z) 47.5 mmHg 35.0-45 POC TCO2 ARTERIAL (test code=POCTCO2) 28.6 POC ARTERIAL BLOOD GAS PO2 (test code=REGVX6Q) 90.0 mmHg 80-100.0 POC HCO3 ARTERIAL (test code=AHVTBA0D) 27.2 MMOL/L 22.0-26.0 POC BASE EXCESS (test code=POCBEA) 1.2 MMOL/L -4.0-4.0 POC O2 SATURATION (test code=POCO2S) 96.5 % 90-100 [id number] 07:07:00* Test Item Value Reference Range Comments SODIUM (test code=NA/ABG) 137 MEQ/L 134-147 [id number] 07:07:00* Test Item Value Reference Range Comments POTASSIUM (test code=K/ABG) 4.5 MEQ/L 3.4-5.0 [id number] 07:07:00* Test Item Value Reference Range Comments CHLORIDE (test code=CL/ABG) 103 MEQ/L 100-108 CREATININE [id number] 07:07:00* Test Item Value Reference Range Comments CREATININE ABG (test code=CREAABG) mg/dL 0.8-1.3 [id number] 07:07:00* Test Item Value Reference Range Comments HEMOGLOBIN (test code=HGB/ABG) 12.2 G/DL 12.5-16.9 [id number] 07:07:00* Test Item Value Reference Range Comments HEMATOCRIT (test code=HCT/ABG) 36 % 37.5-50.7 POC IONIZED [id number] 07:07:00* Test Item Value Reference Range Comments POC IONIZED CALCIUM (test code=POCCA) 1.23 MMOL/L 1.12-1.32 POC [id number] 07:07:00* Test Item Value Reference Range Comments POC GLUCOSE (test code=POCGLU) 170 MG/DL 70-110 POC ARTERIAL BLOOD [id number] 07:07:00* Test Item Value Reference Range Comments POC ARTERIAL BLOOD GAS PH (test code=POCPHA) 7.365 7.35-7.45 POC ARTERIAL BLOOD GAS PCO2 (test code=QPOPCD7E) 47.5 mmHg 35.0-45 POC TCO2 ARTERIAL (test code=POCTCO2) 28.6 POC ARTERIAL BLOOD GAS PO2 (test code=VCVEC8J) 90.0 mmHg 80-100.0 POC HCO3 ARTERIAL (test code=BINPHA5H) 27.2 MMOL/L 22.0-26.0 POC BASE EXCESS (test code=POCBEA) 1.2 MMOL/L -4.0-4.0 POC O2 SATURATION (test code=POCO2S) 96.5 % 90-100 [id number] 07:07:00* Test Item Value Reference Range Comments SODIUM (test code=NA/ABG) 137 MEQ/L 134-147 [id number] 07:07:00* Test Item Value Reference Range Comments POTASSIUM (test code=K/ABG) 4.5 MEQ/L 3.4-5.0 [id number] 07:07:00* Test Item Value Reference Range Comments CHLORIDE (test code=CL/ABG) 103 MEQ/L 100-108 CREATININE [id number] 07:07:00* Test Item Value Reference Range Comments CREATININE ABG (test code=CREAABG) 1.2 mg/dL 0.8-1.3 [id number] 07:07:00* Test Item Value Reference Range Comments HEMOGLOBIN (test code=HGB/ABG) 12.2 G/DL 12.5-16.9 [id number] 07:07:00* Test Item Value Reference Range Comments HEMATOCRIT (test code=HCT/ABG) 36 % 37.5-50.7 POC IONIZED [id number] 07:07:00* Test Item Value Reference Range Comments POC IONIZED CALCIUM (test code=POCCA) 1.23 MMOL/L 1.12-1.32 POC [id number] 07:07:00* Test Item Value Reference Range Comments POC GLUCOSE (test code=POCGLU) 170 MG/DL 70-110 [id number] 05:54:00* Test Item Value Reference Range Comments GLUBED (test code=GLUBED) 128 MG/DL 70-110 Performed by certified gas station operator at [facility] THROMBOPLASTIN TIME [id number] 05:39:00* Test Item Value Reference Range Comments THROMBOPLASTIN TIME PARTIAL (test code=PTT) 56.3 Seconds 25.0-39.5 Therapeutic Range: 61.8-83.8 Sec Effective 08/27/2013 CBC W/AUTO [id number] 05:35:00* Test Item Value Reference Range Comments WHITE BLOOD CELL (test code=WBC) 10.70 x10 3/uL 4.5-11.0 RED BLOOD CELL (test code=RBC) 4.25 x10 6/uL 4.00-5.60 HEMOGLOBIN (test code=HGB) 11.6 g/dL 12.5-16.9 HEMATOCRIT (test code=HCT) 37.9 % 37.5-50.7 MEAN CELL VOLUME (test code=MCV) 89.2 fL 81.0-99.0 MEAN CELL HGB (test code=MCH) 27.3 pg 27.0-33.0 MEAN CELL HGB CONCETRATION (test code=MCHC) 30.6 g/dL 33.0-37.0 RED CELL DISTRIBUTION WIDTH CV (test code=RDW) 15.6 % 11.5-14.5 RED CELL DISTRIBUTION WIDTH SD (test code=RDW-SD) 50.5 fL 37.0-54.0 PLATELET COUNT (test code=PLT) 260 x10 3/uL 150-400 MEAN PLATELET VOLUME (test code=MPV) 10.7 fL 7.0-9.0 NEUTROPHIL % (test code=NT%) 52.1 % 56.0-77.0 IMMATURE GRANULOCYTE % (test code=IG%) 0.5 % 0.0-2.0 LYMPHOCYTE % (test code=LY%) 26.5 % 14.0-32.0 MONOCYTE % (test code=MO%) 7.7 % 4.8-9.0 EOSINOPHIL % (test code=EO%) 12.8 % 0.3-3.7 BASOPHIL % (test code=BA%) 0.4 % 0.0-2.0 NUCLEATED RBC % (test code=NRBC%) 0.0 % 0-0 NEUTROPHIL # (test code=NT#) 5.58 x10 3/uL 2.0-7.6 IMMATURE GRANULOCYTE # (test code=IG#) 0.05 x10 3/uL 0.00-0.03 LYMPHOCYTE # (test code=LY#) 2.84 x10 3/uL 1.0-3.8 MONOCYTE # (test code=MO#) 0.82 x10 3/uL 0.1-0.8 EOSINOPHIL # (test code=EO#) 1.37 x10 3/uL 0.0-0.2 BASOPHIL # (test code=BA#) 0.04 x10 3/uL 0.0-0.2 NUCLEATED RBC # (test code=NRBC#) 0.00 x10 3/uL 0.0-0.1 MANUAL DIFF REQUIRED (test code=MDIFF) NO COMMENTS: Daily while on [id number] 21:10:00* Test Item Value Reference Range Comments GLUBED (test code=GLUBED) 217 MG/DL 70-110 Performed by certified gas station operator at [facility] [id number] 17:17:00* Test Item Value Reference Range Comments GLUBED (test code=GLUBED) 211 MG/DL 70-110 Performed by certified gas station operator at [facility] [id number] 13:52:00* Test Item Value Reference Range Comments GLUBED (test code=GLUBED) 193 MG/DL 70-110 Performed by certified gas station operator at [facility] - CT HEAD/BRAIN W/O [id number] 20:36:00 Name: TORI GREGORY [facility] : 1945 Age/S: 68 / M [address] Unit #: [id number] Loc: NIMESH Mathew [address] Phys: Nayeli Thomson MD Acct: [id number] Dis Date: Status: UNK PHONE #: [phone] Exam Date: 10/01/20142025 FAX #: [phone] Reason: dizziness EXAMS: CPT CODE: [id number] CT HEAD/BRAIN W/O CONT [id number] REASON FOR EXAM: dizziness EXAM ORDER DATE: 10/01/2014 7:57 PM Ordering Jin: Nayeli Thomson MD PROCEDURE: - CT HEAD/BRAIN W/O CONT COMPARISON: FINDINGS: Axial images of the brain were obtained without IV contrast. The brain parenchyma is within normal limits. The mortensen-white matter delineation is unremarkable. The ventricles, cisterns, and sulci are unremarkable. There is no evidence of hemorrhage, mass, mass effect. There is no evidence of acute or old infarct. The calvarium is intact. IMPRESSION: Unremarkable brain. at 2035 Reported and signed by: Norman Hough M.D. CC: Nayeli Thomson MD Technologist:RT ISMA(R) CT CTDI: 73 DLP: 1261 Trnscb Date/Time: 10/01/2014 (2035) [email or web address] Orig Print D/T: S: 10/01/2014 (2038) CTDI: 73 DLP: 1261 PAGE 1 Signed Report - XR CHEST 1 [id number] 20:22:00 FAX: Nayeli Boggs [phone] [place]: B St: UNK Name: TORI SOMERS [facility] : [birth year] Age/S: 68/M [address] [facility] Unit #: [id number] Loc: NIMESH [place] [address] Phys: Nayeli Thomson MD Acct: [id number] Dis Date: Status: UNK PHONE #: [phone] Exam Date: 10/01/2014 2018 FAX #: [phone] Reason: dizziness EXAMS: CPT CODE: [id number] XR CHEST 1 V [id number] REASON FOR EXAM: dizziness EXAM ORDER DATE: 10/01/2014 7:57 PM Ordering MJulio Cesar: Mark Thomson MD PROCEDURE: - XR CHEST 1 V COMPARISON: 08/27/11 FINDINGS: Portable AP frontal view of the chest obtained at 8:05 PM shows clear lungs. There is no evidence of conso lidation. There is no evidence of effusion. The heart size is within naveen l limits. Pulmonary vasculatures are unremarkable. IMPRES YAMILETH: No active disease. Electronically Signed by Jin Hough on at 2021 Reported and signed by: Norman Hough M.D. CC: Nayeli Thomson MD Technologist: MIRYAM Lawrence Trnscrd Da te/Time/By: 10/01/2014 (2021) : By: MonikaL Orig Print D/T: S: 10/01 (2024) PAGE 1 Signed Report - XR RIBS UNI W/CXR 3+V [id number] 19:50:00 FAX: Rex Noland MD [phone] [place]: B St: [facility] FAX: Jama John [facility] [phone] Name: TORI GREGORY [facility] : 1945 Age/S: 65/M [address] Unit #: [id number] Loc: NIMESH [place] [address] Phys: Cheikh Dodson MD Acct: [id number] Dis Date: Status: ELIGIO PHONE #: [phone] Exam Date: 08/27/2011 1253 FAX #: [phone] Reason: left mid-rib pain s/p fall EXAMS: CPT CODE: [id number] XR RIBS UNI W/CXR 3+[place] [address] HISTORY: Left rib pain post fall trauma. TECHNIQUE: 1. PA chest one view. 2. Left RIBS 3 views. FINDINGS: There is a displaced fracture in the posterolateral left sixth rib. There is bibasal atelectasis. There is no pneumothorax or pleural effusion. The heart is mildly enlarged. Degenerative changes are present in the spine. IMPRESSION: 1. Fractured left sixth rib. 2. Mild cardiomegaly. Electronically Signed by Jin Ansari on 012 at 1950 Reported and signed by: William Ansari M.D. CC: Rex Christianson MD; Jama Ramirez Technologist: No Quispe Trnscrd Radha ate/Time/By: 08/27/2011 (1949) : By: [email or web address] Orig Print D/T: S: 07/31 (1953) PAGE 1 Signed Repor sobia
[2019-08-20] MEDS ORDERED: MEROPENEM 1GM 100 ML IV ONE (08:01)
[2019-08-20] MEDS ORDERED: GENTAMICIN 80MG/NS 100 ML 200 ML IV ONE (08:01)
[2019-08-20] MEDS ORDERED: B&O 60MG R/S 60 MG SUPP PR ONE (09:47)
[2019-08-20] MEDS ORDERED: IOPAMIDOL 300MG/ML 50ML INFUS..BTL IV ONE (09:47)
[2019-08-20] MEDS ORDERED: ONDANSETRON HCL INJ 2MG/ML 2ML 2 MG/ML VIAL IV PRN (10:30)
[2019-08-20] MEDS ORDERED: B&O 60MG R/S 60 MG SUPP PR PRN (10:30)
[2019-08-20] MEDS ORDERED: DIPHENHYDRAMINE HCL 25 MG CAP PO PRN (10:30)
[2019-08-20] MEDS ORDERED: FENTANYL CITRATE/PF 100MCG/2 ML INJ ONE ×2 (12:06→17:19)
[2019-08-20] MEDS ORDERED: MEPERIDINE HCL INJ 25 MG/ML VIAL ONE (12:20)
[2019-08-20] MEDS ORDERED: MORPHINE SULFATE INJ 4 MG/ML INJ 1ML ONE (12:46)
[2019-08-20] MEDS ORDERED: HYDROMORPHONE 1MG/1ML INJ ONE (12:56)
[2019-08-20 13:25] VITALS: BP 181/97
--- NOTE | 2019-08-20 13:26 | NUR ---
PT ARRIVED TO MED SURG 1, ROOM 105. PT AWAKE, ALERT, IV PATENT, CBI INFUSING, URINE BRIGHT RED IN COLOR. PT'S DAUGHTER (POA) ARRIVED AT BEDSIDE. PT HAS NO COMPLAINTS AT THIS TIME. ALL SAFETY MEASURES IN PLACE. WILL CONTINUE TO MONITOR.
[2019-08-20 14:32] LABS: BASOPHILS % 0.4 % (0.0-1.0); EOSINOPHILS # (AUTO) 0.4 (0.0-0.4); EOSINOPHILS % 3.6 % (0.0-6.0); LYMPHOCYTES # (AUTO) 1.2 (1.0-3.2); LYMPHOCYTES % 10.9 % (18.0-39.1); MEAN CORPUSCULAR HEMOGLOBIN 29.9 pg (28-32); MEAN CORPUSCULAR HGB CONC 33.3 g/dL (31-35); MEAN CORPUSCULAR VOLUME 89.7 fL (81-99); MONOCYTES # (AUTO) 0.5 (0.2-0.8); MONOCYTES % 3.9 % (4.4-11.3); NEUTROPHILS # (AUTO) 9.2 (2.1-6.9); NEUTROPHILS % 80.7 % (38.7-80.0); PLATELET COUNT 249 x10e3/uL (140-360); RED BLOOD COUNT 3.68 x10e6/uL (4.3-5.7)
[2019-08-20 14:46] VITALS: BP 181/97
[2019-08-20 14:51] LABS: ANION GAP 14.8 mmol/L (8-16); BLOOD UREA NITROGEN 17 mg/dL (7-26); BUN/CREATININE RATIO 19 (6-25); CALCIUM 8.7 mg/dL (8.4-10.2); CARBON DIOXIDE 22 mmol/L (22-29); CHLORIDE 107 mmol/L (98-107); CREATININE, SERUM 0.89 mg/dL (0.72-1.25); EST GLOMERULAR FILTRATION RATE > 60 ML/MIN (60-); GLUCOSE 130 mg/dL (74-118); POTASSIUM 3.8 mmol/L (3.5-5.1); SODIUM 140 mmol/L (136-145)
[2019-08-20 15:36] VITALS: BP 137/81
[2019-08-20] MEDS: CEFTRIAXONE SOD 1 GM/NS 50 ML 50 ML IV SCH (17:15)
[2019-08-20] MEDS: SOD CHL 0.45%/POT CHL 20MEQ 1,000 ML IV SCH (17:15)
[2019-08-20] MEDS: DOCUSATE SODIUM 100 MG CAP PO SCH (17:19)
[2019-08-20] MEDS: PHENAZOPYRIDINE HCL 100 MG TAB PO SCH (17:19)
[2019-08-20] MEDS ORDERED: DEXAMETHASONE SOD PHOS INJ 4 MG/ML VIAL ONE (18:24)
[2019-08-20] MEDS ORDERED: SEVOFLURANE INHAL SOLN 250 ML PEN BTL ONE (18:24)
[2019-08-20] MEDS ORDERED: PROPOFOL IV EMULSION 10 MG/ML 20 ML VIAL ONE (18:24)
[2019-08-20] MEDS ORDERED: LIDOCAINE HCL 2% LOCAL INJ 5 ML SDV VIAL INJ ONE (18:24)
[2019-08-20] MEDS ORDERED: ONDANSETRON HCL INJ 2MG/ML 2ML 2 MG/ML VIAL ONE (18:24)
--- NOTE | 2019-08-20 19:00 | NUR ---
RECEIVED BEDTIME SHIFT REPORT FROM PREVIOUS NURSE. CALL LIGHT WITHIN REACH. DAVENPORT IS DRAINING HUIZAR RED URINE. PATIENT IS HAVING CBI. PATIENT IN NO PAIN OR DISTRESS.
[2019-08-20 20:00] VITALS: BP 129/60
[2019-08-20 20:06] VITALS: BP 137/81
[2019-08-21] VITALS (8 sets, daily range): BP systolic 96–184; BP diastolic 52–79
--- NOTE | 2019-08-21 00:30 | NUR ---
Castorena care done for patient
[2019-08-21] MEDS: ACETAMINOPHEN/CODEINE 300MG - 30MG TAB PO PRN (03:50)
[2019-08-21 06:11] LABS: BASOPHILS % 0.3 % (0.0-1.0); EOSINOPHILS # (AUTO) 0.6 (0.0-0.4); EOSINOPHILS % 5.1 % (0.0-6.0); HEMATOCRIT 31.9 % (38.2-49.6); HEMOGLOBIN 10.4 g/dL (14.0-18.0); LYMPHOCYTES # (AUTO) 1.6 (1.0-3.2); LYMPHOCYTES % 12.9 % (18.0-39.1); MEAN CORPUSCULAR HGB CONC 32.6 g/dL (31-35); MEAN CORPUSCULAR VOLUME 91.9 fL (81-99); MONOCYTES # (AUTO) 0.9 (0.2-0.8); MONOCYTES % 7.1 % (4.4-11.3); PLATELET COUNT 235 x10e3/uL (140-360); RED BLOOD COUNT 3.47 x10e6/uL (4.3-5.7); RED CELL DISTRIBUTION WIDTH 14.4 % (11.7-14.4)
[2019-08-21 06:31] LABS: BLOOD UREA NITROGEN 15 mg/dL (7-26); BUN/CREATININE RATIO 19 (6-25); CALCIUM 8.2 mg/dL (8.4-10.2); CARBON DIOXIDE 23 mmol/L (22-29); CHLORIDE 102 mmol/L (98-107); EST GLOMERULAR FILTRATION RATE > 60 ML/MIN (60-); GLUCOSE 173 mg/dL (74-118); SODIUM 136 mmol/L (136-145)
--- NOTE | 2019-08-21 07:25 | NUR ---
GAVE BEDSIDE SHIFT REPORT TO ONCOMING NURSE. CALL LIGHT WITHIN REACH. PATIENT IN BED. DAVENPORT DRAINING WELL
[2019-08-21] MEDS: SOD CHL 0.45%/POT CHL 20MEQ 1,000 ML IV SCH (08:46)
[2019-08-21] MEDS: PHENAZOPYRIDINE HCL 100 MG TAB PO SCH ×4 (08:46→17:19)
[2019-08-21] MEDS: DOCUSATE SODIUM 100 MG CAP PO SCH ×2 (08:46→17:19)
[2019-08-21] MEDS ORDERED: MAGNESIUM SULFATE 2GM/50ML 100 ML IV ONE (09:00)
[2019-08-21] MEDS: ASPIRIN 81 MG CHEW TAB PO SCH (10:19)
[2019-08-21] MEDS: INSULIN LISPRO 100 UNIT/1 ML 3ML VIAL SQ SCH ×2 (11:41→16:53)
[2019-08-21] MEDS: METOPROLOL SUCCINATE 25 MG TAB XL PO SCH ×2 (13:59→17:19)
[2019-08-21] MEDS: MULTIVITAMINS/MINERALS TAB PO SCH (13:59)
[2019-08-21] MEDS: PREGABALIN 50 MG CAP PO SCH (13:59)
[2019-08-21] MEDS: TAMSULOSIN HCL 0.4 MG CAP PO SCH (13:59)
[2019-08-21] MEDS: METFORMIN HCL 500 MG TAB PO SCH ×2 (13:59→17:19)
[2019-08-21] MEDS: FINASTERIDE 5 MG TAB PO SCH (13:59)
--- NOTE | 2019-08-21 15:30 | History and Physical ---
HISTORY OF PRESENT ILLNESS: A 73-year-old male with past medical history positive for hypertension, diabetes, coronary artery disease status post CABG, came to the hospital, admitted by Dr. Carrasco for a transurethral resection of the prostate and dilatation of stricture. The patient is in a Cast[place]na catheter now with some hematuria. The patient has been transferred to my service today. REVIEW OF SYSTEMS: CARDIOVASCULAR: No chest pain or palpitation. RESPIRATORY: No shortness of breath. No cough. GASTROINTESTINAL: No nausea or vomiting. No diarrhea. GENITOURINARY: He got blood in the urine. ALLERGIES: NOT ALLERGIC TO ANY MEDICATION. SOCIAL HISTORY: He does not smoke. Does not drink. PAST MEDICAL HISTORY: Coronary artery disease status post CABG, hypertension, and diabetes mellitus. PHYSICAL EXAMINATION: HEART: Showed regular rhythm. Normal S1 and S2 sound. LUNGS: Clear bilaterally. ABDOMEN: Soft. EXTREMITIES: Show no evidence of cyanosis or hematoma. VITAL SIGNS: Blood pressure 111/58, temperature 98.6, heart rate 98 per minute, respiratory rate 18 per minute, and oxygen saturation 95%. LABORATORY DATA: On the blood work, we have BMP; sodium 136, potassium 4.0, chloride 102, CO2 23, BUN 15, creatinine 0.80, GFR is more than 60, glucose 173, glucose is also 168 the last one, calcium is 8.2, and magnesium low at 1.0. Also had a CBC with elevated white blood count of 12.16, hemoglobin 14.4, hematocrit 31.9, and platelet count 235,000. FINAL IMPRESSION: 1. Coronary artery disease, status post coronary artery bypass graft. 2. Uncontrolled diabetes mellitus type 2. 3. Benign prostatic hypertrophy, status post transurethral resection of the prostate. 4. Acute anemia secondary to hematuria. 5. Hypomagnesemia. 6. Leukocytosis. PLAN OF TREATMENT: We are going to replace the magnesium with 4 g of magnesium IV one time. Recheck the magnesium in the afternoon. Continue half normal saline with 20 mEq of potassium 75 mL an hour. He is also taking ceftriaxone 1 g IV once a day. Continue with Tylenol 3 one tablet every 4 hours as needed for [id number] pain. Continue with Benadryl 25 mg q.4 hours as needed for itching, B and O 60 mg q.6 hours as needed for bladder spasm, Colace 100 mg twice a day, and dexamethasone 4 mg IV has been given one time. He is also taking Pyridium 100 mg p.o. daily. Continue with Zofran 4 mg IV q.4 hours as needed for nausea. We are going to also resume the home medications since the patient does have history of diabetes. Continue aspirin 81 mg daily, Lipitor 40 mg daily, and digoxin 0.125 mg daily, which we are going to hold. Continue Proscar 5 mg daily and lisinopril 2.5 mg at bedtime. He is also on metformin 1000 mg twice a day, metoprolol 25 mg twice a day, and Lyrica 50 mg daily. He is taking Flomax 0.4 mg daily. Also, he is on Lantus insulin 40 units at bedtime, Humalog 5 units before meals, and multivitamins also. Diet of course is going to be 1800 calories ADA diet. We are going to recheck the magnesium level today. We are going to do a CBC tomorrow because of the elevated white blood count. Dr. Carrasco, Urology monitoring the patient after TURP. MD RADHA Murillo/AMINATA /[id number]
[2019-08-21] MEDS: CEFTRIAXONE SOD 1 GM/NS 50 ML 50 ML IV SCH (17:19)
--- NOTE | 2019-08-21 19:00 | NUR ---
RECEIVED BEDSIDE SHIFT REPORT FROM PREVIOUS NURSE. CALL LIGHT WITHIN REACH. PATIENT IN BED. [facility] DRAINING WELL
[2019-08-21] MEDS: ATORVASTATIN 40 MG TAB PO SCH (21:47)
[2019-08-21] MEDS: LISINOPRIL 2.5 MG TAB PO SCH (21:47)
[2019-08-21] MEDS: INSULIN GLARGINE 100 UNITS/ML VIAL SQ SCH (21:56)
[2019-08-22] VITALS (10 sets, daily range): BP systolic 94–146; BP diastolic 48–72
--- NOTE | 2019-08-22 04:30 | NUR ---
Castorena care performed
[2019-08-22 06:02] LABS: BASOPHILS # (AUTO) 0.1 (0.0-0.1); BASOPHILS % 0.3 % (0.0-1.0); EOSINOPHILS # (AUTO) 1.9 (0.0-0.4); EOSINOPHILS % 13.2 % (0.0-6.0); HEMATOCRIT 30.6 % (38.2-49.6); HEMOGLOBIN 9.9 g/dL (14.0-18.0); LYMPHOCYTES # (AUTO) 2.5 (1.0-3.2); LYMPHOCYTES % 17.3 % (18.0-39.1); MEAN CORPUSCULAR HEMOGLOBIN 29.8 pg (28-32); MEAN CORPUSCULAR HGB CONC 32.4 g/dL (31-35); MEAN CORPUSCULAR VOLUME 92.2 fL (81-99); MONOCYTES # (AUTO) 1.2 (0.2-0.8); MONOCYTES % 8.2 % (4.4-11.3); NEUTROPHILS # (AUTO) 8.7 (2.1-6.9); NEUTROPHILS % 60.5 % (38.7-80.0); PLATELET COUNT 217 x10e3/uL (140-360); RED BLOOD COUNT 3.32 x10e6/uL (4.3-5.7); RED CELL DISTRIBUTION WIDTH 14.3 % (11.7-14.4)
[2019-08-22 06:31] LABS: ANION GAP 13.2 mmol/L (8-16); BLOOD UREA NITROGEN 12 mg/dL (7-26); BUN/CREATININE RATIO 14 (6-25); CALCIUM 8.3 mg/dL (8.4-10.2); CARBON DIOXIDE 25 mmol/L (22-29); CHLORIDE 104 mmol/L (98-107); CREATININE, SERUM 0.84 mg/dL (0.72-1.25); EST GLOMERULAR FILTRATION RATE > 60 ML/MIN (60-); GLUCOSE 115 mg/dL (74-118); POTASSIUM 4.2 mmol/L (3.5-5.1); SODIUM 138 mmol/L (136-145)
--- NOTE | 2019-08-22 07:03 | NUR ---
GAVE BEDSIDE SHIFT REPORT TO ONCOMING NURSE. CALL LIGHT WITHIN REACH. PATIENT IN BED. PATIENT IS A&OX3. SON AT BEDSIDE.
[2019-08-22] MEDS: INSULIN LISPRO 100 UNIT/1 ML 3ML VIAL SQ SCH ×3 (07:50→16:33)
[2019-08-22] MEDS: PHENAZOPYRIDINE HCL 100 MG TAB PO SCH ×3 (09:00→17:00)
[2019-08-22] MEDS: ASPIRIN 81 MG CHEW TAB PO SCH (09:00)
[2019-08-22] MEDS: DOCUSATE SODIUM 100 MG CAP PO SCH ×2 (09:00→17:00)
[2019-08-22] MEDS: METOPROLOL SUCCINATE 25 MG TAB XL PO SCH ×2 (09:00→17:00)
[2019-08-22] MEDS: FINASTERIDE 5 MG TAB PO SCH (09:00)
[2019-08-22] MEDS: PREGABALIN 50 MG CAP PO SCH (09:00)
[2019-08-22] MEDS: MULTIVITAMINS/MINERALS TAB PO SCH (09:00)
[2019-08-22] MEDS: TAMSULOSIN HCL 0.4 MG CAP PO SCH (09:00)
[2019-08-22] MEDS: METFORMIN HCL 500 MG TAB PO SCH ×2 (09:00→17:00)
--- NOTE | 2019-08-22 15:56 | Progress Note ---
DATE: Internal Medicine Progress Note SUBJECTIVE: The patient is doing well. No significant complaint. PHYSICAL EXAMINATION: VITAL SIGNS: Blood pressure is 97/48, temperature 98.2, heart rate 77 per minute, respiratory rate 18 per minute, oxygen saturation 100%. ABDOMEN: Soft, nontender. No distention. LABORATORY DATA: On the BMP; sodium 136, potassium 4.0, chloride 102 CO2 23, BUN 15, creatinine 0.80, glucose 173. On the CBC; white count 12.1, hemoglobin 10.4, hematocrit 31.9, and platelet count 235,000. The last CBC showed white blood count 14.36, hemoglobin 9.9, hematocrit 30.6, platelet count 217,000. Last BMP showed sodium of 138, potassium 4.2, chloride 104, CO2 25, BUN 12, creatinine 0.4, GFR of more than 60, blood sugar was 106, calcium 8.3, and last magnesium level was 1.4. FINAL IMPRESSION: 1. Benign prostatic hypertrophy status post prostatectomy. 2. Acute anemia. 3. Hematuria after the procedure. 4. History of coronary artery disease. 5. Hypertension. 6. Uncontrolled diabetes mellitus type 2 with hyperglycemia. 7. Status post coronary artery bypass grafting. 8. Hypomagnesemia. PLAN OF TREATMENT: The patient will continue current medication regimen. Continue Rocephin. Continue IV fluids with potassium supplementation. Continue Colace. Continue diabetic diet. Continue with current insulin regimen. The patient will go home today if okay with Dr. Carrasco. MD RADHA Murillo/JUSTICEL /[id number]
[2019-08-22] MEDS: SOD CHL 0.45%/POT CHL 20MEQ 1,000 ML IV SCH ×2 (16:43→16:56)
--- NOTE | 2019-08-22 16:53 | NUR ---
Dr Abel Carrasco had rounds stated he will remove Castorena catheter tomorrow and do urine series. patient up in bed , daughter at bed side
[2019-08-22] MEDS: CEFTRIAXONE SOD 1 GM/NS 50 ML 50 ML IV SCH (16:56)
--- NOTE | 2019-08-22 18:56 | NUR ---
RECEIVED BEDSIDE SHIFT REPORT FROM PREVIOUS NURSE. CALL LIGHT WITHIN REACH. PATIENT IN BED. PATIENT IS A&OX4. [place] DRAINING WELL.
[2019-08-22] MEDS: LISINOPRIL 2.5 MG TAB PO SCH (21:30)
[2019-08-22] MEDS: ATORVASTATIN 40 MG TAB PO SCH (21:30)
[2019-08-22] MEDS: INSULIN GLARGINE 100 UNITS/ML VIAL SQ SCH (21:30)
[2019-08-23 00:26] VITALS: BP 93/56
--- NOTE | 2019-08-23 01:57 | NUR ---
Castorena care done for the patient
[2019-08-23 04:00] VITALS: BP 102/52
--- NOTE | 2019-08-23 04:18 | Discharge Summary ---
HOSPITAL COURSE: This is a 73 years old male with past medical history positive for coronary artery disease status post CABG, hypertension, diabetes mellitus type 2, came here for a transurethral resection of the prostate. He underwent the procedure. Dr. Carrasco is a urologist. The patient might go home today if okay with Dr. Carrasco. PHYSICAL EXAMINATION: HEART: Showed regular rhythm. Normal S1 and S2 sounds. LUNGS: Clear bilaterally. ABDOMEN: Soft. IMPRESSION: 1. Benign prostatic hypertrophy, status post TURP. 2. Coronary artery disease status post coronary artery bypass graft. 3. Uncontrolled diabetes mellitus type 2 with hyperglycemia. 4. Hypertension. PLAN OF TREATMENT: The patient is going to be discharged with aspirin 81 mg daily, Lipitor 40 mg daily, Benadryl 25 mg q.4 hours as needed for itching, Colace 100 mg twice a day, Proscar 5 mg daily, Lantus 40 units at bedtime, Humalog 5 units before meals, lisinopril 2.5 mg daily, metformin 1000 mg twice a day, metoprolol 25 mg twice a day, multivitamin one tablet daily, Pyridium 100 mg daily, Lyrica 50 mg daily, Flomax 0.4 mg daily, Zofran is going to be discontinued, of course. So follow up with me in a week. Dr. Carrasco will also decide a followup. Most likely he will go home with the Castorena catheter. MD RADHA Murillo/AMINATA /[id number]
[2019-08-23] MEDS: SOD CHL 0.45%/POT CHL 20MEQ 1,000 ML IV SCH (06:24)
--- NOTE | 2019-08-23 07:13 | NUR ---
GAVE BEDSIDE SHIFT REPORT TO ONCOMING NURSE. CALL LIGHT WITHIN REACH. PATIENT IN BED. DAVENPORT DRAINING WELL
--- NOTE | 2019-08-23 07:20 | NUR ---
Received patient and a/ox3, no resp distress, received this morning and pains well managed,in bed, Castorena in place, continues CBC, call light within reach and will monitor.
[2019-08-23] MEDS: INSULIN LISPRO 100 UNIT/1 ML 3ML VIAL SQ SCH ×3 (07:30→16:37)
[2019-08-23] MEDS: METFORMIN HCL 500 MG TAB PO SCH ×2 (08:00→16:36)
[2019-08-23 08:30] LABS: BASOPHILS % 0.3 % (0.0-1.0); EOSINOPHILS # (AUTO) 1.6 (0.0-0.4); EOSINOPHILS % 13.9 % (0.0-6.0); HEMATOCRIT 30.7 % (38.2-49.6); LYMPHOCYTES % 16.9 % (18.0-39.1); MEAN CORPUSCULAR HEMOGLOBIN 29.7 pg (28-32); MEAN CORPUSCULAR HGB CONC 32.6 g/dL (31-35); MEAN CORPUSCULAR VOLUME 91.1 fL (81-99); MONOCYTES # (AUTO) 0.9 (0.2-0.8); MONOCYTES % 7.4 % (4.4-11.3); NEUTROPHILS # (AUTO) 7.2 (2.1-6.9); NEUTROPHILS % 61.1 % (38.7-80.0); PLATELET COUNT 225 x10e3/uL (140-360); RED BLOOD COUNT 3.37 x10e6/uL (4.3-5.7); RED CELL DISTRIBUTION WIDTH 14.2 % (11.7-14.4)
[2019-08-23 08:54] LABS: ANION GAP 12.4 mmol/L (8-16); BLOOD UREA NITROGEN 11 mg/dL (7-26); BUN/CREATININE RATIO 14 (6-25); CALCIUM 8.6 mg/dL (8.4-10.2); CARBON DIOXIDE 25 mmol/L (22-29); CHLORIDE 107 mmol/L (98-107); CREATININE, SERUM 0.76 mg/dL (0.72-1.25); EST GLOMERULAR FILTRATION RATE > 60 ML/MIN (60-); GLUCOSE 106 mg/dL (74-118); POTASSIUM 4.4 mmol/L (3.5-5.1); SODIUM 140 mmol/L (136-145)
[2019-08-23] MEDS: FINASTERIDE 5 MG TAB PO SCH (09:07)
[2019-08-23] MEDS: ASPIRIN 81 MG CHEW TAB PO SCH (09:07)
[2019-08-23] MEDS: DOCUSATE SODIUM 100 MG CAP PO SCH ×2 (09:07→16:36)
[2019-08-23] MEDS: MULTIVITAMINS/MINERALS TAB PO SCH (09:07)
[2019-08-23] MEDS: METOPROLOL SUCCINATE 25 MG TAB XL PO SCH ×2 (09:07→16:36)
[2019-08-23] MEDS: PHENAZOPYRIDINE HCL 100 MG TAB PO SCH ×2 (09:07→13:00)
[2019-08-23] MEDS: TAMSULOSIN HCL 0.4 MG CAP PO SCH (09:07)
[2019-08-23] MEDS: PREGABALIN 50 MG CAP PO SCH (09:07)
--- NOTE | 2019-08-23 09:08 | NUR ---
Rounds by Dr. Carrasco, will d/c Castorena today and complete serial urine and if clear x5 may discharge. continue IV fluids
[2019-08-23 09:36] VITALS: BP 117/62
[2019-08-23] MEDS: ACETAMINOPHEN/CODEINE 300MG - 30MG TAB PO PRN ×2 (10:10→16:36)
--- NOTE | 2019-08-23 10:12 | NUR ---
Castorena cath d/c'd at this time, will start serial urine at this time.
--- NOTE | 2019-08-23 10:29 | Progress Note ---
DATE: 08/23/2019 CHIEF COMPLAINT/HISTORY OF PRESENT ILLNESS: This is a 73-year-old man who recently underwent TURP. This surgical procedure was performed by Dr. Bertin Carrasco. The patient tolerated surgery quite well. The patient voices no complaints. The patient has a Casotrena catheter in place, but today it will be removed. According to nursing staff if the urine samples become more clear then he will be discharged home. The patient voices no complaints. REVIEW OF SYSTEMS: As per HPI. OBJECTIVE: GENERAL: He is awake, alert, fluent, in no distress, very pleasant and cooperative with exam. VITAL SIGNS: Blood pressure is 130/70, pulse 70, respiratory rate 18, temperature 98.0, BMI is 29, and oxygen saturation is 98% on room air. INTEGUMENT: Skin is warm and dry. No pallor, jaundice, diaphoresis. HEENT: Anterior sclerae with moist mucous membranes. NECK: Supple. CARDIOVASCULAR: Distant heart sounds. Regular rate and rhythm. LUNGS: No rales, no rhonchi, no wheezes. ABDOMEN: Obese and benign. EXTREMITIES: No edema or deformity. GENITOURINARY: The patient has a Castorena catheter in place. Urine is orange in color. No edema in legs. NEUROLOGIC: Intact. ASSESSMENT: 1. Status post TURP. 2. Benign prostatic hypertrophy. 3. Coronary artery disease (history of coronary artery bypass grafting). 4. Type 2 diabetes. 5. Hypertensive heart disease. PLAN: 1. Remove Castorena catheter today as per Urology's order. 2. We will check serial urine samples. 3. Discharge planning for today. 4. The patient to follow up with Urology within 3 weeks. 5. The patient to follow up with Dr. Tapia, his primary care physician within 2 weeks. MD TEJAS Cheung/AMINATA /[id number] cc: MD Aki Selby MD [facility]
--- NOTE | 2019-08-23 10:48 | Discharge Summary ---
ADMITTING DIAGNOSES: 1. Benign prostatic hypertrophy. 2. Coronary artery disease (history of coronary artery bypass grafting). 3. Hypertensive heart disease. 4. Type 2 diabetes mellitus. DISCHARGE DIAGNOSES: 1. Status post TURP. 2. Benign prostatic hypertrophy. 3. Hypertensive heart disease. 4. Coronary artery disease (history of coronary artery bypass grafting). 5. Type 2 diabetes mellitus. HOSPITAL COURSE: This is a 73-year-old man, who was initially admitted to [facility] with diagnosis of obstructive benign prostatic hypertrophy. During this hospitalization, the patient underwent successful TURP, performed by Dr. Bertin Carrasco. His hospitalization was unremarkable. His condition on discharge is stable. Before discharge, the Castorena catheter was removed. DISCHARGE MEDICATIONS: 1. Tylenol No.3 one pill every 4 hours p.r.n. pain, 30 prescribed. No refills. 2. Levofloxacin 500 mg daily for 10 days. 3. Multivitamins daily. 4. Tamsulosin 0.4 mg daily. 5. Pregabalin 50 mg daily. 6. Metoprolol succinate 25 mg b.i.d. 7. Finasteride 5 mg daily. 8. Pyridium 100 mg daily as needed for spasms. 9. Colace 100 mg b.i.d. 10. Metformin 1000 mg b.i.d. 11. Humalog insulin 5 units subcutaneous t.i.d. with meals. 12. Lantus insulin 40 units at night. 13. Lisinopril 2.5 mg at night. 14. Atorvastatin 40 mg at night. The patient was instructed to stop taking aspirin. FOLLOWUP: The patient instructed to follow up with Dr. Tapia, primary care doctor within 7-[address] Bertin Carrasco within 2-3 weeks. MD TEJAS Cheung/AMINATA /[id number] cc: MD Aki Selby MD
[2019-08-23 12:20] VITALS: BP 122/65
[2019-08-23] MEDS: CEFTRIAXONE SOD 1 GM/NS 50 ML 50 ML IV SCH (15:31)
[2019-08-23 16:08] VITALS: BP 156/70
--- NOTE | 2019-08-23 16:50 | NUR ---
Patient voided x6, urine progressed from hematuria to pink color and much clearer on last urination. Ok to discharge. Provided with discharge instructions, prescriptions provided, no anticoagulation until see's his PCP, contacts provided for f/u appt with Dr. Carrasco and PCP. VSS and medicated for pain upon discharge. IV line removed and cath tip in place, dressing applied.
--- NOTE | 2019-09-05 00:41 | Operative Report ---
DATE OF PROCEDURE: 08/20/2019 SURGEON: Bertin Carrasco MD POSTOPERATIVE DIAGNOSES: 1. Urinary tract infections. 2. Gross hematuria. 3. Obstructive benign prostatic hyperplasia. POSTOPERATIVE DIAGNOSES: 1. Urinary tract infections. 2. Gross hematuria. 3. Obstructive benign prostatic hyperplasia. 4. 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 OPERATIONS PERFORMED: 1. Cystourethroscopy with calibration and dilation of urethral stricture disease (separate procedure performed for diagnosis of stricture). 2. Cystourethroscopy with bilateral ureteral catheterization and retrograde ureteropyelography (separate procedure performed for the urinary tract infections and hematuria. 3. Interpretation of retrograde ureteropyelography. 4. Supervision of fluoroscopy, no radiologist present. 5. Cystourethroscopy with transurethral resection of the prostate. ANESTHESIA: General. COMPLICATIONS: None. CLINICAL SUMMARY: Brina Boyer is a 73-year-old man with clinically significant BPH. He is failing medical therapy, elected to proceed with surgical management. He is aware of the risks of bleeding, infection, injury to adjacent structures, incontinence, impotence, retrograde ejaculation, need for additional procedures and he elected to proceed. OPERATIVE PROCEDURE IN DETAIL: Informed consent was verified. Brian Boyer was properly identified, taken to the operating room, placed on the cystoscopy table in supine position. Anesthesia was uneventfully begun. The patient was then carefully gently repositioned in the dorsal lithotomy position with all pressure points well padded. His genitalia were prepared and draped in usual sterile fashion. The 22.5-Haitian rigid cystoscope sheath with visual obturator in place was atraumatically inserted into the patient's urethral meatus, but we could not advance past the site fossa navicularis. We proceeded with calibrating fossa navicularis urethral stricture at 12-Haitian in size and progressively dilating and 28-Haitian in size. We then passed the cystoscope sheath into the patient's urethra. The mid urethra was exhibited stricture disease as did the bulbar urethra. The bulbar urethra and mid urethral strictures were probably 18-Haitian in size. We dilated across these with the visual obturator in place and the cystoscope sheath. We then went through the prostate bed, which was significant for large BPH with a ball-valving intravesical median lobe and kissing lateral lobes. We entered the patient's bladder and drained it. Panendoscopy of the urinary bladder revealed grade 1-2 trabeculations, but there were no tumors, no stones, and no diverticula. No suspicious mucosal lesions were identified. An 8-Haitian catheter was used to cannulate each ureter and retrograde ureteral pyelograms were performed. Interpretation of retrograde ureteropyelography, contrast was instilled in retrograde fashion bilaterally. There were no tumors, no stones, no diverticula. Unobstructed drainage was observed bilaterally fluoroscopically. We completed the urethral dilation with Husam sounds to 28-Haitian in size. We then easily placed the resectoscope sheath with the visual obturator in place. Transurethral resection of the prostate was then carried out with saline solution and bipolar loop. We first resected the median lobe and eliminated down to its base. We the worked on both lateral lobes from the bladder neck tube, but never passed the verumontanum and down the surgical capsule. This extensive dissection concluded with pinpoint fulguration to control all bleeders at the level of the capsule. We evacuated all prostate chips and verified this cystoscopically. The resectoscope was withdrawn. The Castorena catheter was placed. It was placed on continuous irrigation. It was irrigated to-and-fro to ensure it worked properly. A belladonna and opium suppository were placed revealing a 50 g prostate that is smooth, nonfluctuant and without any nodules. The patient was then uneventfully reversed from anesthesia and taken to recovery room in stable condition. There were no complications to the procedure. He tolerated the procedure well. We will proceed with routine postoperative care and lifelong urological followup. Bertin Carrasco MD [place]/[facility] /[id number] cc: Aki Tapia MD
== END 2019-08-23 16:45 | disposition home or self-care (01) | DRG 714 ==
LOC: OR 07:36 → PACU V 10:28 → MED/SURG 13:23
PROVIDERS: ADMIT Internal Medicine; ATTEND Internal Medicine
PROC: BT141ZZ Fluoroscopy of Kidneys, Ureters and Bladder using Low Osmolar Contrast (ICD-10-PCS; 2019-08-20)
PROC: 0T7D8ZZ Dilation of Urethra, Via Natural or Artificial Opening Endoscopic (ICD-10-PCS; 2019-08-20)
PROC: 0VB08ZZ Excision of Prostate, Via Natural or Artificial Opening Endoscopic (ICD-10-PCS; principal; 2019-08-20 09:30)
PROC: 0T788ZZ Dilation of Bilateral Ureters, Via Natural or Artificial Opening Endoscopic (ICD-10-PCS; 2019-08-20 09:30)
DX: N40.1 Benign prostatic hyperplasia with lower urinary tract symptoms (principal); N35.812 Other bulbous urethral stricture, male; D64.9 Anemia, unspecified; E83.42 Hypomagnesemia; I25.10 Atherosclerotic heart disease of native coronary artery without angina pectoris; E11.65 Type 2 diabetes mellitus with hyperglycemia; Z95.1 Presence of aortocoronary bypass graft; I11.9 Hypertensive heart disease without heart failure; R31.0 Gross hematuria
CPT/HCPCS: 36415; 71046; 74420; 80048; 82948; 83735; 85025; 88305; 93005; C1758; J0696; J1100; J1170; J1580; J1815; J2001; J2175; J2270; J2405; J3010; J3475

== ENCOUNTER 2020-03-01 22:55 | Inpatient (IN) | payer MEDICARE, OTHER ==
[~2020-03-01] VITALS: Ht 162.6 cm; Wt 80.9 kg
[~2020-03-01 22:55] MED LIST changes: -B&O 60MG R/S 60 MG SUPP PR ONE; -BACTRIM DS TAB1 EACH PO; -CEFTRIAXONE SOD 1 GM/NS 50 ML 50 ML IV ONE; -ETOMIDATE 2 MG/ML 10 ML INJ IV ONE; -IOPAMIDOL 300MG/ML 50ML INFUS..BTL IV ONE; -LIDOCAINE HCL 2% LOCAL INJ 5 ML SDV VIAL INJ ONE; -ONDANSETRON HCL INJ 2MG/ML 2ML 2 MG/ML VIAL ONE; -PROPOFOL IV EMULSION 10 MG/ML 20 ML VIAL ONE; -SEVOFLURANE INHAL SOLN 250 ML PEN BTL ONE
[2020-03-01] MEDS ORDERED: CEFEPIME 1GM/NS 0.9% 50 ML 50 ML IV STA (23:28)
[2020-03-01 23:49] LABS: BASOPHILS % 0.2 % (0.0-1.0); EOSINOPHILS # (AUTO) 0.1 (0.0-0.4); EOSINOPHILS % 0.8 % (0.0-6.0); HEMATOCRIT 32.3 % (38.2-49.6); HEMOGLOBIN 10.6 g/dL (14.0-18.0); LYMPHOCYTES # (AUTO) 0.5 (1.0-3.2); LYMPHOCYTES % 3.4 % (18.0-39.1); MEAN CORPUSCULAR HEMOGLOBIN 29.6 pg (28-32); MEAN CORPUSCULAR HGB CONC 32.8 g/dL (31-35); MEAN CORPUSCULAR VOLUME 90.2 fL (81-99); MONOCYTES # (AUTO) 0.9 (0.2-0.8); MONOCYTES % 5.4 % (4.4-11.3); NEUTROPHILS # (AUTO) 14.1 (2.1-6.9); NEUTROPHILS % 89.6 % (38.7-80.0); PLATELET COUNT 200 x10e3/uL (140-360); RED BLOOD COUNT 3.58 x10e6/uL (4.3-5.7); RED CELL DISTRIBUTION WIDTH 15.3 % (11.7-14.4)
[2020-03-01] MEDS ORDERED: ACETAMINOPHEN 325 MG TAB ONE (23:54)
--- OUTSIDE RECORDS SUMMARY | 2020-03-01 23:54 | XMS REPORT ---
Author Author TORI Woodson Organization [employer] Address Unknown Phone Unavailable Care Team Providers Care [employer] Name Role Phone Chintan Woodson CP Unavailable Allergies, Adverse Reactions, Alerts Substance Reaction Event Type N.K.D.A. 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 Active Problem 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 II, uncontrolled E11.65 Active Assessment Precordial pain R07.2 Active Problem Pure hypercholesterolemia E78.00 Ac tive Problem Obesity (BMI 30.0-34.9) E66.9 Acti ve Assessment Breath shortness R06.02 Active Assessment Obesity (BMI 30.0-34.9) E66.9 Acti ve Assessment Other symptoms involving cardiovascular system R09.89 Active Assessment 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 Active Assessment 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 Active Assessment Ex-smoker Z87.891 Active Assessment 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 II, uncontrolled E11.65 Active Medications Medication Code System Code Instructions Start Date End Date Status Dosage Finasteride ND 15442517427 5 MG Orally Once a day A ctive 1 tablet Metoprolol Tartrate ND 69206111896 25 MG Orally Twice a day Active 1 tablet with food Atorvastatin Calcium ND 88291366581 40 MG Orally Once a day Active 1 tablet ASPRIN 81 NDC 0 Active not defined Melatonin ND 14252256603 10 MG Orally Active as d irected Pantoprazole Sodium ND 85591697278 40 MG Orally Once a day Active 1 tablet Nitrofurantoin ND 58827908676 25 MG/5ML Orally Once a day Active 10 ml with food Metformin HCl ND 86990450468 1000 MG Orally Once a day Active 1 tablet with a meal Clopidogrel Bisulfate ND 13706584488 75 MG Orally Once a day Active 1 tablet Digoxin ND 81186488134 125 MCG Orally Active as d irected Lisinopril ND 71328637112 2.5 MG Orally Once a day Active 1 tablet Tamsulosin HCl ND 87983396243 0.4 MG Orally Once a day Active 1 capsule Mens One Daily NDC 0 Active not defin ed Tramadol HCl NDC 0 10 MG/ML Orally Once a day Active 5 ml as needed Vital Signs Date/Time: Jul 01, 2019 BMI 35.15 Index Weight 180 lbs Height 5'6 in Cardiac Monitoring Heart Rate 80 /min Blood Pressure Diastolic 68 mm Hg Blood Pressure Systolic 120 mm Hg Results No Known Results Summary Purpose [employer] Submission
--- OUTSIDE RECORDS SUMMARY | 2020-03-01 23:54 | XMS REPORT ---
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 57927701581 40 MG Orally Once a day Active 1 tablet Results No Known Results Summary Purpose [employer] Submission
--- OUTSIDE RECORDS SUMMARY | 2020-03-01 23:54 | XMS REPORT | Continuity of Care Document ---
Author Author [employer] [facility]el Spears [employer] Address Unknown Phone Unavailable Care Team Providers Care Tie Inspector Name Role Phone [employer] Unavailable Un available Problems Problem Status Onset Date Classification Date Reported Comments Source Ischemic cardiomyopathy Active Diagnosis 01/31/2020 Chintan Woodson Benign hypertensive heart disease withou t congestive heart failure Active Diag nosis 01/31/2020 Chintan Woodson 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 II, uncontrolled Active Problem 01/31/2020 Chintan Woodson Pure hypercholesterolemia Acti ve Diagnosis 0 01/31/2020 Chintan Woodson Obesity (BMI 30.0-34.9) Active Problem 01/31/2020 Chintan Woodson Precordial pain Active Diagnosis 01/31/2020 Chintan Woodson Breath shortness Active Diagnosis 01/31/2020 Chintan Woodson Other symptoms involving cardiovascular system Active Diagnosis 01/31/2020 Chintan Woodson 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 Active Diag nosis 01/31/2020 Chintan Woodson Hx of CABG Active Diagnosis 01/31/2020 Chintan Woodson Ex-smoker Active Diagnosis 01/31/2020 Chintan Woodson Medications Medication Details Route Status Patient Instructions Ordering Provider Order Date Source Atorvastatin Calcium 1 tablet Orally Active 40 MG Orally Once a day Chintan Woodson Finasteride 1 tablet Orally Active 5 MG Orally Once a day Chintan Woodson Metoprolol Tartrate 1 tablet w ith food Orally Active 25 MG Orally Twice a day Chintan Woodson ASPRIN 81 not defined NA Active Bernarda Woodson Melatonin as directed Orally Active 10 MG Orally Chintan Woodson Pantoprazole Sodium 1 tablet Orally Active 40 MG Orally Once a day Chintan Woodson Nitrofurantoin 10 ml with food Orally Active 25 MG/5ML Orally Once a day Chintan Woodson Metformin HCl 1 tablet with a meal Orally Active 1000 MG Orally Once a day Chintan Woodson Clopidogrel Bisulfate 1 tablet Orally Active 75 MG Orally Once a day Chintan Woodson Digoxin as directed Orally Active 125 MCG Orally [facility] Lisinopril 1 tablet Orally Active 2.5 MG Orally Once a da y [facility] Tamsulosin HCl 1 capsule Orally Active 0.4 MG Orally Once a da y [facility] Mens One Daily not defined NA Active [facility] Tramadol HCl 5 ml as needed Orally Active 10 MG/ML Orally Once a day [facility] Allergies, Adverse Reactions, Alerts Substance Category Reaction Severity Reaction type Status Date Reported Comments Source N.K.D.A. Adverse Reaction Info Not Available Adverse Reaction 07/01/2019 [facility] Immunizations No Data Provided for This Section Results No Data Provided for This Section Pathology Reports No Data Provided for This Section Diagnostic Reports No Data Provided for This Section Consultation Notes No Data Provided for This Section Discharge Summaries No Data Provided for This Section History and Physicals No Data Provided for This Section Vital Signs Vital Sign Value Date Comments Source Weight 180 07/01/2019 [facility] Heart Rate 80 07/01/2019 [facility] Diastolic (mm Hg) 68 07/01/2019 [facility] Systolic (mm Hg) 120 07/01/2019 [facility] Encounters No Data Provided for This Section Procedures No Data Provided for This Section Assessment and Plan No Data Provided for This Section Plan of Care No Data Provided for This Section Social History No Data Provided for This Section Family History No Data Provided for This Section Advance Directives No Data Provided for This Section Functional Status No Data Provided for This Section
--- OUTSIDE RECORDS SUMMARY | 2020-03-01 23:56 | XMS REPORT | Continuity of Care Document ---
Author Author [facility] t Organization Formerly [facility] Address [address] [place] [address] Phone Unavailable Care Team Providers Care Sole Stapler Welt Name Role Phone AKI MTZ MD PCP BERTIN CARRASCO Attphys Unavailable AKI MTZ Attshira Unavailable Payers Payer Name Policy Type Policy Number Effective Date Expiration Date [facility] [id number] 2019 00:00:00 [facility] Problems Condition Name Condition Details Condition Category Status Onset Date Resolution Date Last Treatment Date Treating Clinician Comments Source Ischemic cardiomyopathy Isch emic cardiomyopathy Active Diagnosis 01/31/2020 Ahmed Ahmed Diagnosis Active 2020-01-31 02: 58:51 Jerome Gaines 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 without congestive heart failure Active Diagnosis 01/31/2020 Ahmed Ahmed Diagnosis Active 2020-01-31 02:58:51 Jerome Gaines 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 II, uncontrolled 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 II, uncontrolled Active Problem 01/31/2020 Ahmed Ahmed Problem Active 2020-01-31 02:58:51 Bina Gaines Pure hypercholesterolemia Pure hypercholesterolemia Active Diagnosis 01/31/2020 Ahmed Ahmed Diagnosis Active 2020-01-31 02:58:51 [facility] Obesity (BMI 30.0-34.9) Obes ity (BMI 30.0-34.9) Active Problem 01/31/2020 Chintan Woodson Problem Active 2020-01-31 02:58 :51 [facility] Precordial pain Prec ordial pain Active Diagnosis 01/31/2020 [facility] Diagnosis Active 2020-01-31 02:58:51 [facility] Breath shortness Spurger th shortness Active Diagnosis 01/31/2020 [facility] Diagnosis Active 2020-01-31 02:58:51 [facility] Other symptoms involving cardiovascular system Other symptoms involving cardiovascular system Active Diagnosis 01/31/2020 [facility] Diagnosis Active 2020-01-31 02:58:51 [facility] 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 N.K.Radha.A. Active Info Not Available 2019-07-01 00:00:00 [facility] No Known Allergies DA Active U 2018-11-25 00:00:00 [facility] No Known Allergies DA Active U 2014-10-01 00:00:00 [facility] No Known Allergies DA Active U 2012-08-18 00:00:00 [facility] Medications Ordered Medication Name Filled Medication Name Start Date Stop Da te Current Medication? Ordering Clinician Indication Dosage Frequency Signature (SIG) Comments Components Source Atorvastatin Calcium 2020-01-31 02:58:51 Yes Chintan Woodson 1 tablet [facility] Finasteride 2020-01-31 02:58:51 Yes dov dov 1 tablet [facility] Metoprolol Tartrate 2020-01-31 02:58:51 Yes Ahmed Ahmed 1 tablet with food [facility] Eder ASPRIN 81 2020-01-31 02:58:51 Yes Ahmed Ahmed not defined [facility] Eder Melatonin 2020-01-31 02:58:51 Yes Ahmed Ahmed as directed [facility] Pantoprazole Sodium 2020-01-31 02:58:51 Yes Ahmed Ahmed 1 tablet [facility] Nitrofurantoin 2020-01-31 02:58:51 Yes Ahmed Ahmed 10 ml with food [facility] Metformin HCl 2020-01-31 02:58:51 Yes Ahmed Ahmed 1 tablet with a meal [facility] Clopidogrel Bisulfate 2020-01-31 02:58:51 Yes Ahmed Ahmed 1 tablet [facility] Digoxin 2020-01-31 02:58:51 Yes Ahmed Ahmed as di rected [facility] Lisinopril 2020-01-31 02:58:51 Yes Ahmed Ahmed 1 tablet [facility] Tamsulosin HCl 2020-01-31 02:58:51 Yes Ahmed Ahmed 1 capsule [facility] Mens One Daily 2020-01-31 02:58:51 Yes Ahmed Ahmed not defined [facility] Tramadol HCl 2020-01-31 02:58:51 Yes Ahmed Ahmed 5 ml as needed [facility] Aspirin (Aspir 81) 81 Mg Tablet. Aspirin (Aspir 81) 81 Mg Tablet. Yes 81 Daily [facility] Atorvastatin Calcium 20 Mg Tablet Atorvastatin Calcium 20 Mg Tablet Yes 40 Bedtime [facility] Cholecalciferol (Vitamin D3) (Vitamin D3) 2,000 Unit T ablet Cholecalciferol (Vitamin D3) (Vitamin D3) 2,000 Unit Tablet Yes Daily [facility] Finasteride 5 Mg Tablet Finasteride 5 Mg Tablet Yes 5 Daily [facility] Insulin Glargine (Lantus 3ML Pen) 100 Units/1 Ml Inj I nsulin Glargine (Lantus 3ML Pen) 100 Units/1 Ml Inj Yes 40 Bedtime [facility] Insulin Lispro (Humalog) 100 Unit/1 Ml Insuln.pen Insu ashley Lispro (Humalog) 100 Unit/1 Ml Insuln.pen Yes 5 Three Times A Day [facility] Lisinopril 2.5 Mg Tablet Lisinopril 2.5 Mg Tablet Yes 2.5 Bedtime [facility] Metformin Hcl 500 Mg Tablet Metformin Hcl 500 Mg Tablet Yes 1000 Twice A Day [facility] Metoprolol Succinate 25 Mg Tab.er.24h Metoprolol Succinate 25 Mg Ta b.er.24h Yes 25 Twice A Day [facility] Multivitamin/Iron/Folic Acid (Centrum Adults Tablet) 1 Each Tablet Multivitamin/Iron/Folic Acid (Centrum Adults Tablet) 1 Each Tablet Yes 1 Daily [facility] Pregabalin (Lyrica) 50 Mg Cap Pregabalin (Lyrica) 50 Mg Cap Yes 50 Daily [facility] Tamsulosin Hcl (Flomax*) 0.4 Mg Cap Tamsulosin Hcl (Flomax*) 0.4 Mg C ap Yes .4 Daily [facility] Digoxin 125 Mcg Tablet, 0.125 Mg Oral Digoxin 125 Mcg Tablet, 0. 125 Mg Oral 2019-08-22 00:00:00 No .125 Daily [facility] Cholecalciferol (Vitamin D3) (Vitamin D) 400 Unit Caps ule, Unknown Dose Oral Cholecalciferol (Vitamin D3) (Vitamin D) 400 Unit Capsule, Unknown Dose Oral 2019-08-18 00:00:00 No Daily [facility] Lisinopril 10 Mg Tablet, 10 Mg Oral Lisinopril 10 Mg Tablet, 10 Mg Oral 2019-08-18 00:00:00 No 10 Bedtime [facility] Vital Signs Vital Name Observation Time Observation Value Comments Source Weight 2019-07-01 16:30:00 [facility] Heart Rate 2019-07-01 16:30:00 Jerome Gaines Diastolic (mm Hg) 2019-07-01 16:30:00 Lucila Gaines Systolic (mm Hg) 2019-07-01 16:30:00 Chris Gaines Procedures Procedure Date / Time Performed Performing Clinician [facility] e Cystoscopy with retrograde pyelography 2019-08-20 00:00:00 BERTIN URBINA [facility] TURP (transurethral resection of prostate) 2019-08-20 00:00:00 H JAYSHREEBERTIN SANTIAGO [facility] X-ray of chest, two views 2019-08-18 00:00:00 BERTIN CARRASCO CH, I [facility] Encounters Start Date/Time End Date/Time Encounter Type Admission Type [facility] Care Department Encounter ID Source 2019-08-20 10:28:00 2019-08-23 16:45:00 Discharged Inpatient 3 BERTIN CARRASCO [facility] [id number] [facility] 2019-07-01 11:30:00 2019-07-01 11:30:00 Outpatient [facility] Cardiology Alvino [facility] Cardiology Alvino [id number] [facility] 2019-06-06 14:29:00 2019-06-06 14:29:00 Outpatient [facility] Cardiology Alvino [facility] Cardiology Alvino [id number] [facility] 2018-12-24 11:38:00 2018-12-24 11:38:00 Registered Clinic 3 AKI MTZ [facility] [id number] [facility] Results Test Description Test Time Test Comments Results Result Comments Source Bedside Glucose 2019-08-23 12:19:00 Test Item Bedside Glucose (test code = 40154-8) 121 70-120 H Meter ID: [id number] [facility] 2019-08-23 08:56:00* Test Item Value Reference Range Interpretation Comments Sodium Level (test code = 2951-2) 140 136-145 [facility] [id number] 08:56:00* Test Item Value Reference Range Interpretation Comments Potassium Level (test code = 2823-3) 4.4 3.5-5.1 [facility] HospitalChloride [id number] 08:56:00* Test Item Value Reference Range Interpretation Comments Chloride Level (test code = 2075-0) 107 98-107 [facility] HospitalCarbon Dioxide [id number] 08:56:00* Test Item Value Reference Range Interpretation Comments Carbon Dioxide Level (test code = 2028-9) - [facility] HospitalAnion [id number] 08:56:00* Test Item Value Reference Range Interpretation Comments Anion Gap (test code = 40212-4) 12.4 8-16 [facility] HospitalBlood Urea [id number] 08:56:00* Test Item Value Reference Range Interpretation Comments Blood Urea Nitrogen (test code = 3094-0) 11 7-26 [facility] HospitalCreatinine2020-01-25 08:56:00* Test Item Value Reference Range Interpretation Comments Creatinine (test code = 2160-0) 0.76 0.72-1.25 [facility] HospitalBUN/Creatinine Klksl5296-32-04 08:56:00* Test Item Value Reference Range Interpretation Comments BUN/Creatinine Ratio (test code = 3097-3) 14 01-21 [facility] HospitalEstimat Glomerular Filtration Rate 2019-08-23 08:56:00* Test Item Value Reference Range Interpretation Comments Estimat Glomerular Filtration Rate (test code = 775663974) > 60 >60 Ranges were taken from the National Kidney Disease Education Program and the [facility] Kidney Foundation literature.Reference ranges:60 or greater: Evgkmf21-43 ( for 3 consecutive months): Chronic kidney disease 15 or less: Kidney failureResolute Health HospitalGlucose Duunt2869-53-31 08:56:00* Test Item Value Reference Range Interpretation Comments Glucose Level (test code = OZG6914) 106 74-118 [facility] HospitalCalcium Etofs7314-07-45 08:56:00* Test Item Value Reference Range Interpretation Comments Calcium Level (test code = 71828-0) 8.6 8.4-10.2 [facility] HospitalWhite Blood Bdhdo8432-78-29 08:31:00* Test Item Value Reference Range Interpretation Comments White Blood Count (test code = 6690-2) 11.82 4.8-10.8 H [facility] HospitalRed Blood Qccfg8734-27-47 08:31:00* Test Item Value Reference Range Interpretation Comments Red Blood Count (test code = 789-8) 3.37 4.3-5.7 L [facility] HospitalHemoglobin2020-01-25 08:31:00* Test Item Value Reference Range Interpretation Comments Hemoglobin (test code = 74129-8) 10.0 14.0-18.0 L [facility] HospitalHematocrit2020-01-25 08:31:00* Test Item Value Reference Range Interpretation Comments Hematocrit (test code = 4544-3) 30.7 38.2-49.6 L [facility] HospitalMean Corpuscular Tblbja2645-60-56 08:31:00* Test Item Value Reference Range Interpretation Comments Mean Corpuscular Volume (test code = 787-2) 91.1 81-99 [facility] HospitalMean Corpuscular Ryqcbsffhx0486-07-33 08:31:00* Test Item Value Reference Range Interpretation Comments Mean Corpuscular Hemoglobin (test code = 785-6) 29.7 28-32 [facility] HospitalMean Corpuscular Hemoglobin Concent 2019-08-23 08:31:00* Test Item Value Reference Range Interpretation Comments Mean Corpuscular Hemoglobin Concent (test code = 786-4) 32.6 31-35 [facility] HospitalRed Cell Distribution Cvbhv1751-11-51 08:31:00* Test Item Value Reference Range Interpretation Comments Red Cell Distribution Width (test code = 59033-3) 14.2 11.7 -14.4 [facility] HospitalPlatelet Xcypz5584-36-26 08:31:00* Test Item Value Reference Range Interpretation Comments Platelet Count (test code = 777-3) 225 140-360 [facility] HospitalNeutrophils (%) (Auto)2019-08-23 08:31:00 * Test Item Value Reference Range Interpretation Comments Neutrophils (%) (Auto) (test code = 97355-0) 61.1 38.7-80.0 [facility] HospitalLymphocytes (%) (Auto)2019-08-23 08:31:00 * Test Item Value Reference Range Interpretation Comments Lymphocytes (%) (Auto) (test code = 736-9) 16.9 18.0-39.1 L [facility] HospitalMonocytes (%) (Auto)2019-08-23 08:31:00* Test Item Value Reference Range Interpretation Comments Monocytes (%) (Auto) (test code = 5905-5) 7.4 4.4-11.3 [facility] HospitalEosinophils (%) (Auto)2019-08-23 08:31:00 * Test Item Value Reference Range Interpretation Comments Eosinophils (%) (Auto) (test code = 713-8) 13.9 0.0-6.0 H [facility] HospitalBasophils (%) (Auto)2019-08-23 08:31:00* Test Item Value Reference Range Interpretation Comments Basophils (%) (Auto) (test code = 706-2) 0.3 0.0-1.0 [facility] HospitalIM GRANULOCYTES %2019-08-23 08:31:00* Test Item Value Reference Range Interpretation Comments IM GRANULOCYTES % (test code = IM GRANULOCYTES %) 0.4 0.0- 1.0 [facility] HospitalNeutrophils # (Auto)2019-08-23 08:31:00* Test Item Value Reference Range Interpretation Comments Neutrophils # (Auto) (test code = 751-8) 7.2 2.1-6.9 H [facility] HospitalLymphocytes # (Auto)2019-08-23 08:31:00* Test Item Value Reference Range Interpretation Comments Lymphocytes # (Auto) (test code = 56229-3) 2.0 1.0-3.2 [facility] HospitalMonocytes # (Auto)2019-08-23 08:31:00* Test Item Value Reference Range Interpretation Comments Monocytes # (Auto) (test code = 742-7) 0.9 0.2-0.8 H [facility] HospitalEosinophils # (Auto)2019-08-23 08:31:00* Test Item Value Reference Range Interpretation Comments Eosinophils # (Auto) (test code = 711-2) 1.6 0.0-0.4 H [facility] HospitalBasophils # (Auto)2019-08-23 08:31:00* Test Item Value Reference Range Interpretation Comments Basophils # (Auto) (test code = 704-7) 0.0 0.0-0.1 [facility] HospitalAbsolute Immature Granulocyte (auto 2019-08-23 08:31:00* Test Item Value Reference Range Interpretation Comments Absolute Immature Granulocyte (auto ([place] t code = Absolute Immature Granulocyte (auto) 0.05 0-0.1 [facility] HospitalMagnesium Rwlkg8044-26-61 17:37:00* Test Item Value Reference Range Interpretation Comments Magnesium Level (test code = 55978-6) 1.4 1.3-2.1 [facility] HospitalCHEST 2 [id number] 14:07:00 [facility] [address] [place] [address] Patient Name: TORI TRIPLETT MR #: [id number] : 1945 Age/Sex: 73/M Req #: [id number] Adm Physician: Ordered by: BERTIN CARRASCO MD Report #: [id number] Location: OR Room/Bed: Procedure: [id number] DX/PRESTON ST 2 VIEWS Exam Date: 08/18/19 Exam Time: 1345 REPORT STATUS: Signed EXAMINATION: C HEST 2 VIEWS INDICATION: Pre-operative COMPARISON: None FINDINGS: LINES/TUBES:None LUNGS:The lungs are well-inflated. No focal consolidation or pulmonary edema. PLEURA:No pleural effusion or pneumothor ax. MEDIASTINUM:The cardiomediastinal silhouette appears normal in size and shape. BONES/SOFT TISSUES:No acute osseous injury. Sternotomy wires in akilah ce. ABDOMEN:No free air under the diaphragm. IMPRESSION: No foca l pneumonia or pulmonary edema. Signed by: Sallie Valenzuela MD on 08/18/2019 2:09 PM Dictated By: SALLIE VALENZUELA MD 08 Transcribed By: KENZIE on 08/18/191408 COPY TO: BERTIN URBINA MD - XR C-SPINE 4-5 [id number] 12:17:00 FAX: Aki Espitia MD [phone] [place]: O St: REG Name: TORI SOMERS [facility] : 11/28/18 46 Age/S: 73/M [address] [facility] Unit #: [id number] Loc: [place] [address] Phys: Aki Mtz MD Acct: [id number] Dis Date: Status: REG CLI PHONE #: [phone] Exam Date: 02/28/2019 1158 FAX #: [phone] Reason: CERVICAL SPINE PAIN EXAMS: CPT CODE: [id number] XR C-SPINE 4-5 V 42485 HISTORY: Pain. CLARICE RISON: None available. 5 views of the cervical spine: No acute fracture or dislocation. Vertebral body heights are maintained. Mild straightening may suggest muscular spasm or this could be positional. C7 is partially obscured by overlying shoulder. Marginal osteophytes thr oughout the cervical spine with sparing of the C4 vertebral body. No preve rtebral soft tissue swelling. Narrowed disc space at C5-C6 level. Cervical foraminal narrowing at C5-C6 level from posterior osteophytes especially on the left side. Uncovertebral joints are narrowed. Lateral masses are we ll marginated. Lung apices are clear. IMPRESSION: No acute fracture or dislocation. 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 at 1217 Reported and signed by: Charles Holman M.D. CC: Aki Mtz Technologist: HUNTER BUTTERFIELD RT(R) Trnscrd Date/Time/By: 02/28/2019 (1941) : By: [email or web address] Orig Print D/T: S: 02/28/2019 (3848) PAGE 1 Signed R eport [id number] 04:55:00* Test Item Value Reference Range Interpretation Comments GLUBED (test code = GLUBED) 146 MG/DL 70-110 H Performed by certified crusher and blender [facility] [id number] 14:22:00 Name: TORI GREGORY [facility] [place] : 1945 Age/S: 73 / M [address] [place] [address] Blvd Unit #: [id number] Loc: [place] [address] Phys: Bertin Carrasco MD Acct: [id number] Dis Date: Status: ADM IN PHONE #: [phone] Exam Date: 02/08/2019 1354 FAX #: [phone] Reason: UTI EXAMS: CPT CODE: [id number] [facility] RET[facility] LTD 07803 PROCEDURE: RENAL ULTRASOUND INDICATION: Urinary tract infection [...] or renal stones. 2. Enlarged prostate SL: [id number] at 1422 Reported and signed by: Sb Her M.D. CC: Bertin Carrasco MD; Aki Mtz MD Technologist: Rashmi Soler RDMS(OB)(AB) Trnscb Date/Time: 02/08/2019 (7092) [email or web address] Orig Print D/T: S: 02/08/2019 (1874) Probe: PAGE 1 Signed Report [id number] 11:53:00* Test Item Value Reference Range Interpretation Comments GLUBED (test code = GLUBED) 86 MG/DL 70-110 N Performed by certified crusher and blender operator at [facility] [id number] 08:28:00* Test Item Value Reference Range Interpretation Comments GLUBED (test code = GLUBED) 108 MG/DL 70-110 N Performed by certified crusher and blender operator at [facility] [id number] 16:54:00* Test Item Value Reference Range Interpretation Comments GLUBED (test code = GLUBED) 129 MG/DL 70-110 H Performed by certified crusher and blender operator at [facility] BASIC METABOLIC [id number] 14:33:00* Test Item Value Reference Range Interpretation Comments SODIUM (test code = NA) 141 mEq/L 134-147 N POTASSIUM (test code = K) 4.1 mEq/L 3.4-5.0 N CHLORIDE (test code = CL) 106 mEq/L 100-108 N CARBON DIOXIDE (test code = CO2) 27 mEq/L 21-33 N ANION GAP (test code = GAP) 12 0-20 N GLUCOSE (test code = GLU) 128 mg/dL 70-110 H BLOOD UREA NITROGEN (test code = BUN) 20 mg/dL 7-18 H GLOMERULAR FILTRATION RATE (test code = GFR) 73.2 70-80 N Units of measure = ml/min/1.73 m2 CREATININE (test code = CREAT) 1.0 mg/dL 0.6-1.3 N CALCIUM (test code = CA) 8.8 mg/dL 8.0-10.5 N [id number] 14:33:00* Test Item Value Reference Range Interpretation Comments MAGNESIUM (test code = MAG) 1.40 mg/dL 1.8-2.4 L CBC W/AUTO [id number] 14:20:00* Test Item Value Reference Range Interpretation Comments WHITE BLOOD CELL (test code = WBC) 8.28 x10 3/uL 4.5-11.0 N RED BLOOD CELL (test code = RBC) 4.07 x10 6/uL 4.00-5.60 N HEMOGLOBIN (test code = HGB) 11.4 g/dL 12.5-16.9 L HEMATOCRIT (test code = HCT) 35.1 % 37.5-50.7 L MEAN CELL VOLUME (test code = MCV) 86.2 fL 81.0-99.0 N MEAN CELL HGB (test code = MCH) 28.0 pg 27.0-33.0 N MEAN CELL HGB CONCETRATION (test code = MCHC) 32.5 g/dL 33.0-37. 0 L RED CELL DISTRIBUTION WIDTH CV (test code = RDW) 16.4 % 11.5- 14.5 H RED CELL DISTRIBUTION WIDTH SD (test code = RDW-SD) 51.8 fL 37 .0-54.0 N PLATELET COUNT (test code = PLT) 398 x10 3/uL 150-400 N MEAN PLATELET VOLUME (test code = MPV) 9.8 fL 7.0-9.0 H NEUTROPHIL % (test code = NT%) 53.4 % 56.0-77.0 L IMMATURE GRANULOCYTE % (test code = IG%) 0.5 % 0.0-2.0 N LYMPHOCYTE % (test code = LY%) 26.3 % 14.0-32.0 N MONOCYTE % (test code = MO%) 8.6 % 4.8-9.0 N EOSINOPHIL % (test code = EO%) 10.5 % 0.3-3.7 H BASOPHIL % (test code = BA%) 0.7 % 0.0-2.0 N NUCLEATED RBC % (test code = NRBC%) 0.0 % 0-0 N NEUTROPHIL # (test code = NT#) 4.42 x10 3/uL 2.0-7.6 N IMMATURE GRANULOCYTE # (test code = IG#) 0.04 x10 3/uL 0.00-0.03 H LYMPHOCYTE # (test code = LY#) 2.18 x10 3/uL 1.0-3.8 N MONOCYTE # (test code = MO#) 0.71 x10 3/uL 0.1-0.8 N EOSINOPHIL # (test code = EO#) 0.87 x10 3/uL 0.0-0.2 H BASOPHIL # (test code = BA#) 0.06 x10 3/uL 0.0-0.2 N NUCLEATED RBC # (test code = NRBC#) 0.00 x10 3/uL 0.0-0.1 N MANUAL DIFF REQUIRED (test code = MDIFF) NO [id number] 12:02:00* Test Item Value Reference Range Interpretation Comments GLUBED (test code = GLUBED) 106 MG/DL 70-110 N Performed by certified crusher and blender operator at [facility] [id number] 09:28:00* Test Item Value Reference Range Interpretation Comments GLUBED (test code = GLUBED) 152 MG/DL 70-110 H Performed by certified crusher and blender operator at [facility]2019-07-12 09:01:00* Test Item Value Reference Range Interpretation Comments GLUBED (test code = GLUBED) 119 MG/DL 70-110 H Performed by certified crusher and blender operator at [facility] [id number] 18:28:00* Test Item Value Reference Range Interpretation Comments GLUBED (test code = GLUBED) 122 MG/DL 70-110 H Performed by certified crusher and blender operator at [facility] [id number] 13:20:00* Test Item Value Reference Range Interpretation Comments GLUBED (test code = GLUBED) 172 MG/DL 70-110 H Performed by certified crusher and blender operator at [facility] [id number] 13:20:00* Test Item Value Reference Range Interpretation Comments GLUBED (test code = GLUBED) 126 MG/DL 70-110 H Performed by certified crusher and blender operator at [facility] [id number] 21:12:00* Test Item Value Reference Range Interpretation Comments GLUBED (test code = GLUBED) 207 MG/DL 70-110 H Performed by certified crusher and blender operator at [facility] [id number] 20:54:00* Test Item Value Reference Range Interpretation Comments TROPONIN-I (test code = TROPI) 0.036 ng/mL 0.000-0.045 N Negative: <= 0.045 Positive: >= 0.046 Correlation with serial results, other cardiac markers andclinical findings is necessary to determine the clinicalsignificance of this result. Results using different methodologies should not be comparedto one another as quantitative results may vary by method. COMMENTS: 3 troponins total (including troponin done in ED)[id number] 17:11:00* Test Item Value Reference Range Interpretation Comments TROPONIN-I (test code = TROPI) 0.031 ng/mL 0.000-0.045 N Negative: <= 0.045 Positive: >= 0.046 Correlation with serial results, other cardiac markers andclinical findings is necessary to determine the clinicalsignificance of this result. Results using different methodologies should not be comparedto one another as quantitative results may vary by method. COMMENTS: 3 troponins total (including troponin done in ED)PROCALCITONIN (PCT) 2019-02-05 14:12:00* Test Item Value Reference Range Interpretation Comments PROCALCITONIN (PCT) (test code = PROCAL) 0.10 ng/mL 0.00-0.05 H PROCALCITONIN (PCT) NORMAL RANGE (ADULT): <0.05 NG/ML. [...] any concentrations <2 ng/mL are obtained. URINALYSIS [id number] 12:24:00* Test Item Value Reference Range Interpretation Comments UA COLOR (test code = COLU) ISMAEL YEL/STRAW A UA APPEARANCE (test code = APPU) CLOUDY CLEAR A UA GLUCOSE DIPSTICK (test code = DGLUU) NEGATIVE NEGATIVE UA BILIRUBIN DIPSTICK (test code = BILU) NEGATIVE NEGATIVE UA KETONE DIPSTICK (test code = KETU) NEGATIVE NEGATIVE UA SPECIFIC GRAVITY (test code = SGU) 1.017 1.005-1.030 N UA BLOOD DIPSTICK (test code = BO) 1+ NEGATIVE A UA PH DIPSTICK (test code = MARIBEL) 5.0 5.0-7.0 N UA PROTEIN DIPSTICK (test code = PROU) NEGATIVE NEGATIVE UA UROBILINIOGEN DIPSTICK (test code = URO) 0.2 mg/dL 0.2-1.0 UA NITRITE DIPSTICK (test code = JAMEEL) NEGATIVE NEGATIVE UA LEUKOCYTE ESTERASE DIPSTICK (test code = LEUU) 3+ NEGA TIVE A UA WBC (test code = WBCU) >50 WBC/HPF 0-3 A UA RBC (test code = RBCU) 4-10 RBC/HPF 0-3 UA BACTERIA (test code = BACU) 4+ /HPF NONE SEEN A UA SQUAMOUS CELLS (test code = SQU) 0-5 /HPF NONE SEEN UA HYALINE CAST (test code = HYALU) 3-5 /LPF NONE SEEN UA MUCUS (test code = MUCU) TRACE /LPF NONE SEEN COMMENTS: Clean [id number] 11:13:00* Test Item Value Reference Range Interpretation Comments TROPONIN-I (test code = TROPI) 0.020 ng/mL 0.000-0.045 N Negative: <= 0.045 Positive: >= 0.046 Correlation with serial results, other cardiac markers andclinical findings is necessary to determine the clinicalsignificance of this result. Results using different methodologies should not be comparedto one another as quantitative results may vary by method. - XR CHEST 1 [id number] 11:02:00 FAX: Lupe Gracia DO [phone] [place]: St: PRE Name: TORI SOMERS [facility] : [birth year] Age/S: 73/M [address] [place] [address] Blvd Unit #: [id number] Loc: G.ERS2 [place] [address] Phys: Lupe Glaser DO Acct: [id number] Dis Date: Status: PRE ER PHONE #: [phone] Exam Date: 02/05/2019 1049 FAX #: [phone] Reason: FEVER EXAMS: CPT CODE: [id number] XR CHEST 1 V 67246 PROCEDURE: CHEST SINGLE VIEW INDICATION: Fever COMPARISON: [...] the differential. N o definite pneumonia. SL: [id number] at 1102 Reported and signed by: Iker Miller M.D. CC: Lupe Glaser DO Technologist: RT Judy(Myriam) Trnscrd Date/Time/By: 02/05/2019 (7839) : By: Yessy Orig Print D/T: S: 02/05/2019 (9710) PAGE 1 Signed Report TROPONIN-I [id number] 10:56:00* Test Item Value Reference Range Interpretation Comments TROPONIN-I RAPID (test code = TROPIRAP) 0.02 ng/mL 0.00-0.08 N Performed by certified crusher and blender operator at [facility] Negative: <= 0.08 Positive: >= 0.09An elevated troponin value alone is not sufficient todiagnose a myocardial infarction. Rather, the patient sclinical presentation (history, physical exam) and ECGshould be used in conjunction with troponin in thediagnostic evaluation of suspected myocardial infarction. Aserial sampling protocol is recommended to facilitate the identification of temporal changes in troponin levels characteristic of IN. LACTIC ACID [id number] 10:56:00* Test Item Value Reference Range Interpretation Comments LACTIC ACID POC (test code = LACTP) 1.6 MMOL/L 0.90-1.70 N Performed by certified crusher and blender operator at [facility] CBC W/AUTO [id number] 10:53:00* Test Item Value Reference Range Interpretation Comments WHITE BLOOD CELL (test code = WBC) 8.51 x10 3/uL 4.5-11.0 N RED BLOOD CELL (test code = RBC) 3.64 x10 6/uL 4.00-5.60 L HEMOGLOBIN (test code = HGB) 10.3 g/dL 12.5-16.9 L HEMATOCRIT (test code = HCT) 31.8 % 37.5-50.7 L MEAN CELL VOLUME (test code = MCV) 87.4 fL 81.0-99.0 N MEAN CELL HGB (test code = MCH) 28.3 pg 27.0-33.0 N MEAN CELL HGB CONCETRATION (test code = MCHC) 32.4 g/dL 33.0-37. 0 L RED CELL DISTRIBUTION WIDTH CV (test code = RDW) 16.8 % 11.5- 14.5 H RED CELL DISTRIBUTION WIDTH SD (test code = RDW-SD) 53.4 fL 37 .0-54.0 N PLATELET COUNT (test code = PLT) 344 x10 3/uL 150-400 N MEAN PLATELET VOLUME (test code = MPV) 9.8 fL 7.0-9.0 H NEUTROPHIL % (test code = NT%) 63.6 % 56.0-77.0 N IMMATURE GRANULOCYTE % (test code = IG%) 0.7 % 0.0-2.0 N LYMPHOCYTE % (test code = LY%) 16.3 % 14.0-32.0 N MONOCYTE % (test code = MO%) 9.6 % 4.8-9.0 H EOSINOPHIL % (test code = EO%) 9.4 % 0.3-3.7 H BASOPHIL % (test code = BA%) 0.4 % 0.0-2.0 N NUCLEATED RBC % (test code = NRBC%) 0.0 % 0-0 N NEUTROPHIL # (test code = NT#) 5.41 x10 3/uL 2.0-7.6 N IMMATURE GRANULOCYTE # (test code = IG#) 0.06 x10 3/uL 0.00-0.03 H LYMPHOCYTE # (test code = LY#) 1.39 x10 3/uL 1.0-3.8 N MONOCYTE # (test code = MO#) 0.82 x10 3/uL 0.1-0.8 H EOSINOPHIL # (test code = EO#) 0.80 x10 3/uL 0.0-0.2 H BASOPHIL # (test code = BA#) 0.03 x10 3/uL 0.0-0.2 N NUCLEATED RBC # (test code = NRBC#) 0.00 x10 3/uL 0.0-0.1 N MANUAL DIFF REQUIRED (test code = MDIFF) NO CHEMISTRY 8 [id number] 10:44:00* Test Item Value Reference Range Interpretation Comments ISTAT-SODIUM (test code = NAP) MMOL/L 134-147 ISTAT-POTASSIUM (test code = KP) MMOL/L 3.4-5.0 ISTAT-CHLORIDE (test code = CLP) MMOL/L 100-108 ISTAT CARBON DIOXIDE (test code = ISTAT-CO2) mmol/L 21-33 N ISTAT CALCIUM IONIZED (test code = ISTAT-AMANDA) MG/DL 1.12-1.3 2 ISTAT-GLUCOSE (test code = GLUP) MG/DL 70-110 H ISTAT-BUN (test code = BUNP) MG/DL 7-18 H BEDSIDE CREATININE (test code = CREATBED) MG/DL 0.6-1.3 N GLOMERULAR FILTRATION RATE POC (test code = GFRBED) 78 ML/MIN CHEMISTRY 8 [id number] 10:44:00* Test Item Value Reference Range Interpretation Comments ISTAT-SODIUM (test code = NAP) 141 MMOL/L 134-147 N ISTAT-POTASSIUM (test code = KP) 4.3 MMOL/L 3.4-5.0 N ISTAT-CHLORIDE (test code = CLP) 104 MMOL/L 100-108 N Performed by certified crusher and blender operator at [facility] ISTAT CARBON DIOXIDE (test code = ISTAT-CO2) 26.0 mmol/L 21-33 N ISTAT CALCIUM IONIZED (test code = ISTAT-AMANDA) 1.16 MG/DL 1.12-1.3 2 N ISTAT-GLUCOSE (test code = GLUP) 173 MG/DL 70-110 H ISTAT-BUN (test code = BUNP) 22 MG/DL 7-18 H BEDSIDE CREATININE (test code = CREATBED) 1.0 MG/DL 0.6-1.3 N GLOMERULAR FILTRATION RATE POC (test code = GFRBED) 78 ML/MIN SP LUMBAR, COMPLETE MIN [id number] 12:30:00 [place] [address] Patient Name: TORI TRIPLETT MR #: [id number] : 1945 Age/Sex: 73/M Req #: [id number] Adm Physician: Ordered by: AKI MTZ MD Report #: [id number] [facility]: [facility] Room/Bed: Procedure: [id number] DX/ SP LUMBAR, COMPLETE MIN 4VW Exam [...] 12 33 COPY TO: AKI MTZ MD [id number] 16:54:00* Test Item Value Reference Range Interpretation Comments GLUBED (test code = GLUBED) 136 MG/DL 70-110 H Performed by certified crusher and blender operator at [facility] [id number] 12:43:00* Test Item Value Reference Range Interpretation Comments GLUBED (test code = GLUBED) 129 MG/DL 70-110 H Performed by certified crusher and blender operator at [facility] [id number] 07:50:00* Test Item Value Reference Range Interpretation Comments GLUBED (test code = GLUBED) 162 MG/DL 70-110 H Performed by certified crusher and blender operator at [facility] [id number] 22:23:00* Test Item Value Reference Range Interpretation Comments GLUBED (test code = GLUBED) 168 MG/DL 70-110 H Performed by certified crusher and blender operator at [facility] [id number] 15:49:00* Test Item Value Reference Range Interpretation Comments GLUBED (test code = GLUBED) 158 MG/DL 70-110 H Performed by certified crusher and blender operator at [facility] [id number] 11:05:00* Test Item Value Reference Range Interpretation Comments GLUBED (test code = GLUBED) 206 MG/DL 70-110 H Performed by certified crusher and blender operator at [facility] [id number] 07:29:00* Test Item Value Reference Range Interpretation Comments GLUBED (test code = GLUBED) 156 MG/DL 70-110 H Performed by certified crusher and blender operator at [facility] [id number] 21:29:00* Test Item Value Reference Range Interpretation Comments GLUBED (test code = GLUBED) 248 MG/DL 70-110 H Performed by certified crusher and blender operator at [facility] [id number] 17:22:00* Test Item Value Reference Range Interpretation Comments GLUBED (test code = GLUBED) 138 MG/DL 70-110 H Performed by certified crusher and blender operator at [facility] - US SCROTUM AND [id number] 17:17:00 Name: TORI TRIPLETT [facility] : 1945 Age/S: 73 / M [address] [facility] Unit #: [id number] Loc: [place] [address] Phys: Aki Mtz MD Acct: [id number] Dis Date: Status: ADM IN PHONE #: [phone] Exam Date: 2018 1636 FAX #: [phone] Reason: SCROTUM, TESICULAR PAIN/DISCOMFORT EXAMS: CPT CODE: [id number] US SCROTUM AND CNTS 91279 PROCEDURE: SCROTAL ULTRASOUND INDICATION: Right testicular pain [...] Si gned Report (CONTINUED) Name: TORI TRIPLETT [facility] : 1945 Age/S: 73 / M [address] [facility] Unit #: [id number] Loc: [place] [address] Phys: Aki Mtz MD Acct: [id number] Dis Date: Status: ADM IN PHONE #: [phone] Exam Date: 2018 1636 FAX #: [phone] Reason: SCROTUM, TESICULAR P AIN/DISCOMFORT EXAMS: CPT CODE: [id number] US SCROTUM AND CNTS 34263 <Continued> at 1717 Reported and signed by: Miki Swan M.D. CC: Aki Mtz MD Technologist: Brent Savage RDMS (AB) (OB) Trnscb Date/Time: 2018 (1716) tNOEMY Orig Print D/T: S: 2018 (172) Probe: PAGE 2 Signed Report - US SCROTUM AND [id number] 17:17:00 Name: TORI GREGORY [facility] : 1945 Age/S: 73 / M [address] [place] [address] Blvd Unit #: [id number] Loc: [place] [address] Phys: Aki Mtz MD Acct: [id number] Dis Date: Status: ADM IN PHONE #: [phone] Exam Date: 2018 1636 FAX #: [phone] Reason: SCROTUM, TESICULAR PAIN/DISCOMFORT EXAMS: CPT CODE: [id number] US SCROTUM AND CNTS 94555 PROCEDURE: SCROTAL ULTRASOUND INDICATION: Right testicular pain [...] Si gned Report (CONTINUED) Name: TORI GREGORY [facility] : 1945 Age/S: 73 / M [address] [facility] Unit #: [id number] Loc: [place] [address] Phys: Aki Mtz MD Acct: [id number] Dis Date: Status: ADM IN PHONE #: [phone] Exam Date: 2018 1636 FAX #: [phone] Reason: SCROTUM, TESICULAR P AIN/DISCOMFORT EXAMS: CPT CODE: [id number] US SCROTUM AND CNTS 75882 <Continued> at 1717 Reported and signed by: Miki Swan M.D. CC: Aki Mtz MD Technologist: Brent Savage RDMS (AB) (OB) Trnscb Date/Time: 2018 (171) [place] Orig Print D/T: S: 2018 (172) Probe: PAGE 2 Signed Report [id number] 11:54:00* Test Item Value Reference Range Interpretation Comments GLUBED (test code = GLUBED) 237 MG/DL 70-110 H Performed by certified crusher and blender operator at [facility] [id number] 08:32:00* Test Item Value Reference Range Interpretation Comments GLUBED (test code = GLUBED) 134 MG/DL 70-110 H Performed by certified crusher and blender operator at [facility] [id number] 21:02:00* Test Item Value Reference Range Interpretation Comments GLUBED (test code = GLUBED) 181 MG/DL 70-110 H Performed by certified crusher and blender operator at [facility] - MRA NECK [id number] 19:10:00 FAX: Sudhir Watson MD [phone] [place]: St: ADM FAX: Aki Espitia MD [phone] Name: TORI TRIPLETT [facility] : 1945 Age/S: 72/M [address] [place] [address] Unit #: [id number] Loc: G.3340 [facility] [place] [address] Phys: Sudhir Watson MD Acct: [id number] Dis Date: Status: ADM IN PHONE #: [phone] Exam Date: 11/27/2018 1510 FAX #: [phone] Reason: TIA EXAMS: CPT CODE: [id number] MRA NECK W/CONT 71744 INDICATION: Right arm numbness, transient ischemic attack. [...] in three-dimensional maximum intensity rotational projections. Three-dimensional ahda-sd-ddtmdt MR angiography centered at the carot id [...] Repo rt (CONTINUED) FAX: Sudhir Watson MD [phone] [place]: St: ADM FAX: Aki Espitia MD [phone] ------ Name: TORI TRIPLETT [facility] : 08/1945 Age/S: 72/M [address] [place] [address] Unit #: [id number] Loc: G.33[address] [place] [address] Phys: Sudhir Watson MD Acct: [id number] Dis Date: Status: ADM IN PHONE #: [phone] Exam Date: 11/27/2018 1510 FAX #: [phone] Reason: TIA EXAMS: CPT CODE: [id number] MRA NECK W/CONT 13514 <Continued> arteries with mild to moderate focal [...] have a normal course caliber and contour. Ucjt-tq-osmibmmf atheroscl erotic irregularity along the right carotid [...] Signed Report (CONTINUED) FAX: Sudhir Watson MD [phone] [place]: St: ADM FAX: Aki Espitia MD [phone] Name: ELVIA TRIPLETT [facility] : 1945 Age/S : 72/M [address] [place], [place] [address]vd Unit #: [id number] Loc: G. [address] [place] [address] Phys: Sudhir Watson MD Acct: [id number] Dis Date: Status: ADM IN PHONE #: [phone] Exam Date: 11/27/2018 1510 FAX #: [phone] Reason: TIA EXAMS: CPT CODE: [id number] MRA NECK W/CONT 62758 <Continued> 1. Atherosclerotic irregularity with mild to [...] Aki Mtz MD Technologist: Jose Henderson RT(R)(CT)(MR) [facility] Date/Time/By: 11/27/2018 (1909) : By: [email or web address] Orig Print D/T: S: 11/27/2018 (1912) PAGE 3 Signed Report - MRA HEAD W/O CONTRAST 2018-11-27 19:10:00 FAX: Sudhir Watson MD [phone] [place]: St: [facility] FAX: Aki Espitia MD [phone] Name: TORI TRIPLETT [facility] : 1945 Age/S: 72/M [address] [place] [address] Blvd Unit #: [id number] Loc: [address] [place] [address] Phys: Sudhir Watson MD Acct: [id number] Dis Date: Status: ADM IN PHONE #: [phone] Exam Date: 11/27/2018 1510 FAX #: [phone] Reason: TIA EXAMS: CPT CODE: [id number] MRA HEAD W/O CONTRAST 09830 INDICATION: Right arm numbness, transient ischemic attack. [...] in three-dimensional maximum intensity rotational projections. Three-dimensional jeep-ty-hfginl MR angiography centered at the carot id [...] Repo rt (CONTINUED) FAX: Sudhir Watson MD [place]: St: [facility] FAX: Aki Espitia MD [phone] ------ Name: TORI TRIPLETT [facility] : 08/1945 Age/S: 72/M [address] [place] [address] Blvd Unit #: [id number] Loc: GMarcia[address]40 [place] [address] Phys: Sudhir Watson MD Acct: [id number] Dis Date: Status: ADM IN PHONE #: [phone] Exam Date: 11/27/2018 1510 FAX #: [phone] Reason: TIA EXAMS: CPT CODE: [id number] MRA HEAD W/O CONTRAST 06362 <Continued> arteries with mild to moderate focal [...] have a normal course caliber and contour. Uouz-fv-zhxzftau atheroscl erotic irregularity along the right carotid [...] Signed Report (CONTINUED) FAX: Sudhir Watson MD [phone] [place]: St: ADM FAX: Aki Espitia MD [phone] Name: ELVIA TRIPLETT [facility] : 1945 Age/S : 72/M [address] [place] [address] Blvd Unit #: [id number] Loc: [place] [address] [place] [address] Phys: Sudhir Watson MD Acct: [id number] Dis Date: Status: ADM IN PHONE #: [phone] Exam Date: 11/27/2018 1510 FAX #: [phone] Reason: TIA EXAMS: CPT CODE: [id number] MRA HEAD W/O CONTRAST 23566 <Continued> 1. Atherosclerotic irregularity with mild to [...] Sudhir Watson MD; Aki Mtz MD Technologist: RT Kelli(R)(CT)(MR) Trnscrd Date/Time/By: 11/27/2018 (1909) : By: [email or web address] Orig Print D/T: S: 11/27/2018 (1912) PAGE 3 Signed Report - MRA NECK W/CONT 2018-11-27 19:10:00 FAX: Sudhir Watson MD [phone] [place]: St: ADM FAX: Aki Espitia MD [phone] Name: TORI GREGORY [facility] : 1945 Age/S: 72/M [address] [place] [address] Unit #: [id number] Loc: [address] [address] Phys: Sudhir Watson MD Acct: [id number] Dis Date: Status: ADM IN PHONE #: [phone] Exam Date: 11/27/2018 1510 FAX #: [phone] Reason: TIA EXAMS: CPT CODE: [id number] MRA NECK W/CONT 04150 INDICATION: Right arm numbness, transient ischemic attack. [...] in three-dimensional maximum intensity rotational projections. Three-dimensional xhdv-gf-udzwdg MR angiography centered at the carot id [...] Repo rt (CONTINUED) FAX: Sudhir Watson MD [place]: St: [facility] FAX: Aki Espitia MD [phone] ------ Name: TORI GREGORY [facility] : 08/1945 Age/S: 72/M [address] [place] [address] Blvd Unit #: [id number] Loc: G.[address] [place] [address] Phys: Sudhir Watson MD Acct: [id number] Dis Date: Status: ADM IN PHONE #: [phone] Exam Date: 11/27/2018 1510 FAX #: [phone] Reason: TIA EXAMS: CPT CODE: [id number] MRA NECK W/CONT 38448 <Continued> arteries with mild to moderate focal [...] have a normal course caliber and contour. Wlmd-vt-xwnxveka atheroscl erotic irregularity along the right carotid [...] ith age-appropriate parenchymal volume loss. MR joseph vasquez brain and neck: PAGE 2 Signed Report (CONTINUED) FAX: Sudhir Watson MD [phone] [place]: St: [facility] FAX: Aki Espitia MD [phone] Name: TORI MELGAR CHA [facility] : 1945 Age/S : 72/M [address] [place] [address] Blvd Unit #: [id number] Loc: [address] [place] [address] Phys: Sudhir Watson MD Acct: [id number] Dis Date: Status: ADM IN PHONE #: [phone] Exam Date: 11/27/2018 1510 FAX #: [phone] Reason: TIA EXAMS: CPT CODE: [id number] MRA NECK W/CONT 57659 <Continued> 1. Atherosclerotic irregularity with mild to [...] CONTRAST 2018-11-27 19:10:00 FAX: Sudhir Watson MD [phone] [place]: St: ADM FAX: Aki Espitia MD [phone] Name: UZIEL REDDZTORI [facility] : 1945 Age/S: 72/M [address] [place] [address] Unit #: [id number] Loc: G.[address] [place] [address] Phys: Sudhir Watson MD Acct: [id number] Dis Date: Status: ADM IN PHONE #: [phone] Exam Date: 11/27/2018 1510 FAX #: [phone] Reason: TIA EXAMS: CPT CODE: [id number] MRA HEAD W/O CONTRAST 19666 INDICATION: Right arm numbness, transient ischemic attack. [...] in three-dimensional maximum intensity rotational projections. Three-dimensional gehf-rf-futwuf MR angiography centered at the carot id [...] Repo rt (CONTINUED) FAX: Sudhir Watson MD [phone] [place]: St: ADM FAX: Aki Espitia MD [phone] ------ Name: TRIPLETT HENDERSON,ELVIABASIL [facility] : 08/1945 Age/S: 72/M [address] [place] [address] Unit #: [id number] Loc: [address] [address] Phys: Sudhir Watson MD Acct: [id number] Dis Date: Status: ADM IN PHONE #: [phone] Exam Date: 11/27/2018 1510 FAX #: [phone] Reason: TIA EXAMS: CPT CODE: [id number] MRA HEAD W/O CONTRAST 68268 <Continued> arteries with mild to moderate focal [...] have a normal course caliber and contour. Iyqm-kk-xthpkpzy atheroscl erotic irregularity along the right carotid [...] Signed Report (CONTINUED) FAX: Sudhir Watson MD [phone] [place]: St: [facility] FAX: Aki Espitia MD [phone] Name: TORI MELGAR CHA [facility] : 1945 Age/S : 72/M [address] [place] [address] Blvd Unit #: [id number] Loc: [address] [place] [address] Phys: Sudhir Watson MD Acct: [id number] Dis Date: Status: ADM IN PHONE #: [phone] Exam Date: 11/27/2018 1510 FAX #: [phone] Reason: TIA EXAMS: CPT CODE: [id number] MRA HEAD W/O CONTRAST 52946 <Continued> 1. Atherosclerotic irregularity with mild to [...] carotid artery (NASCET criteria). SL: HOSSEIN at 0 Reported and signed by: Cynthia Hall M.D. CC: Sudhir Watson MD; Aki Mtz MD Technologist: Jose Henderson RT(R)(CT)(MR) Trnscrd Date/Time/By: 11/27/2018 (1909) : By: [email or web address] Orig Print D/T: S: 11/27/2018 (1912) PAGE 3 Signed Report - MRI BRAIN WO/W CONT 2018-11-27 19:10:00 FAX: Aki Espitia MD [phone] [place]: St: ADM Name: M ONTES,FELICITO [facility] : [birth year] Age/S: 72/M [address] [place], [place] [address]vd Unit #: [id number] Loc: [place] [address] Phys: Aki Mtz MD Acct: [id number] Dis Date: Status: ADM IN PHONE #: [phone] Exam Date: 11/27/2018 1509 FAX #: [phone] Reason: Right arm numbness EXAMS: CPT CODE: [id number] MRI BRAIN WO/W CONT 78660 INDICATION: Right arm numbness, tr ansient ischemic [...] three-dimensional maximum inten sity rotational projections. Three-dimensional suyd-yf-lpfyph MR angiograp hy centered at the carotid [...] Signed Report (CONTINUED) FAX: Aki Espitia MD [phone] [place]: St: ADM Name: TORI TRIPLETT [facility] : 1945 Age/S: 72/M [address] [place] [address] Blvd Unit #: [id number] Loc: G.[address] [place] [address] Phys: Aki Mtz MD Acct: [id number] Dis Date: Status: ADM IN PHONE #: [phone] Exam Date: 07/2018 1509 FAX #: [phone] Reason: Right arm numb ness EXAMS: CPT CODE: [id number] MRI BRAIN WO/W CONT 70 553 <Continued> [...] have a normal course caliber and contour. Kmqw-wm-kfedtaaz atherosclerotic irregularity along the right carotid bulb [...] Re port (CONTINUED) FAX: Aki Espitia MD [place]: St: ADM Name: TORI TRIPLETT [facility] Mayra medina : 1945 Age/S: 72/M [address] [place] [address] Unit #: [id number] Loc: [address] [address] Phys: Aki Mtz MD Acct: [id number] Dis Date: Status: ADM IN PHONE #: [phone] Exam Date: 11/27/2018 1509 FAX #: [phone] Reason: Right arm numbness EXAMS: CPT CODE: [id number] MRI BRAIN WO/W CONT 71782 < Continued> along the bilateral cavernous and [...] M.D. CC: Aki Mtz MD Technologist: Jose Henderosn RT(R)(CT)(MR) Trnscrd Date/Time/By: 11/27/2018 (1909) : By: [email or web address] Orig Print D/T: S: 11/27/2018 (1912) PAGE 3 Signed Report - MRI BRAIN WO/W [id number] 19:10:00 FAX: Aki Espitia MD [phone] [place]: St: ADM Name: TORI SOMERS [facility] : [birth year] Age/S: 72/M [address] [place] [address] Unit #: [id number] Loc: [address] [place] [address] Phys: Aki Mtz MD Acct: [id number] Dis Date: Status: ADM IN PHONE #: [phone] Exam Date: 11/27/2018 1509 FAX #: [phone] Reason: Right arm numbness EXAMS: CPT CODE: [id number] MRI BRAIN WO/W CONT 13767 INDICATION: Right arm numbness, tr ansient ischemic [...] three-dimensional maximum inten sity rotational projections. Three-dimensional snnw-gy-lhllcc MR angiograp hy centered at the carotid [...] Signed Report (CONTINUED) FAX: Aki Espitia MD [phone] [place]: St: ADM Name: TORI GREGORY [facility] : 1945 Age/S: 72/M [address] [place] [address] Blvd Unit #: [id number] Loc: G.[address] [place] [address] Phys: Aki Mtz MD Acct: [id number] Dis Date: Status: ADM IN PHONE #: [phone] Exam Date: 07/2018 1505 FAX #: [phone] Reason: Right arm numb ness EXAMS: CPT CODE: [id number] MRI BRAIN WO/W CONT 70 553 <Continued> [...] have a normal course caliber and contour. Qoah-dy-ropujvpj atherosclerotic irregularity along the right carotid bulb [...] Re port (CONTINUED) FAX: Aki Espitia MD [place]: St: ADM Name: TORI GREGORY [facility] Clear L adam : 1945 Age/S: 72/M [address] [place], [place] [address] Unit #: [id number] Loc: G.[address] [place] [address] Phys: Aki Mtz MD Acct: [id number] Dis Date: Status: ADM IN PHONE #: [phone] Exam Date: 11/27/2018 1503 FAX #: [phone] Reason: Right arm numbness EXAMS: CPT CODE: [id number] MRI BRAIN WO/W CONT 27343 < Continued> along the bilateral cavernous and [...] S: 11/27/2018 (1912) PAGE 3 Signed Report [id number] 17:14:00* Test Item Value Reference Range Interpretation Comments GLUBED (test code = GLUBED) 105 MG/DL 70-110 N Performed by certified crusher and blender operator at [facility] [id number] 11:52:00* Test Item Value Reference Range Interpretation Comments GLUBED (test code = GLUBED) 140 MG/DL 70-110 H Performed by certified crusher and blender operator at [facility] B-TYPE NATRIURETIC [id number] 09:28:00* Test Item Value Reference Range Interpretation Comments B-TYPE NATRIURETIC PEPTIDE (test code = BNP) 827.3 PG/ML 0-100 H [id number] 09:22:00* Test Item Value Reference Range Interpretation Comments MAGNESIUM (test code = MAG) 1.90 mg/dL 1.8-2.4 N THYROID STIMULATING [id number] 09:22:00* Test Item Value Reference Range Interpretation Comments THYROID STIMULATING HORMONE (test code = TSH) 1.16 0.42-5.4 7 N Results in yogesh- International Units/mL HGBA1C%2018-11-27 08:10:00* Test Item Value Reference Range Interpretation Comments HGBA1C% (test code = HGBA1C%) 7.8 %A1C 4.8-6.0 H [id number] 08:04:00* Test Item Value Reference Range Interpretation Comments GLUBED (test code = GLUBED) 127 MG/DL 70-110 H Performed by certified crusher and blender operator at [facility] CBC W/AUTO [id number] 07:13:00* Test Item Value Reference Range Interpretation Comments WHITE BLOOD CELL (test code = WBC) 12.44 x10 3/uL 4.5-11.0 H RED BLOOD CELL (test code = RBC) 4.00 x10 6/uL 4.00-5.60 N HEMOGLOBIN (test code = HGB) 10.6 g/dL 12.5-16.9 L HEMATOCRIT (test code = HCT) 34.3 % 37.5-50.7 L MEAN CELL VOLUME (test code = MCV) 85.8 fL 81.0-99.0 N MEAN CELL HGB (test code = MCH) 26.5 pg 27.0-33.0 L MEAN CELL HGB CONCETRATION (test code = MCHC) 30.9 g/dL 33.0-37. 0 L RED CELL DISTRIBUTION WIDTH CV (test code = RDW) 15.1 % 11.5- 14.5 H RED CELL DISTRIBUTION WIDTH SD (test code = RDW-SD) 47.3 fL 37 .0-54.0 N PLATELET COUNT (test code = PLT) 285 x10 3/uL 150-400 N MEAN PLATELET VOLUME (test code = MPV) 10.2 fL 7.0-9.0 H NEUTROPHIL % (test code = NT%) 66.2 % 56.0-77.0 N IMMATURE GRANULOCYTE % (test code = IG%) 0.3 % 0.0-2.0 N LYMPHOCYTE % (test code = LY%) 18.6 % 14.0-32.0 N MONOCYTE % (test code = MO%) 7.8 % 4.8-9.0 N EOSINOPHIL % (test code = EO%) 6.8 % 0.3-3.7 H BASOPHIL % (test code = BA%) 0.3 % 0.0-2.0 N NUCLEATED RBC % (test code = NRBC%) 0.0 % 0-0 N NEUTROPHIL # (test code = NT#) 8.23 x10 3/uL 2.0-7.6 H IMMATURE GRANULOCYTE # (test code = IG#) 0.04 x10 3/uL 0.00-0.03 H LYMPHOCYTE # (test code = LY#) 2.31 x10 3/uL 1.0-3.8 N MONOCYTE # (test code = MO#) 0.97 x10 3/uL 0.1-0.8 H EOSINOPHIL # (test code = EO#) 0.85 x10 3/uL 0.0-0.2 H BASOPHIL # (test code = BA#) 0.04 x10 3/uL 0.0-0.2 N NUCLEATED RBC # (test code = NRBC#) 0.00 x10 3/uL 0.0-0.1 N MANUAL DIFF REQUIRED (test code = MDIFF) NO [id number] 20:51:00* Test Item Value Reference Range Interpretation Comments GLUBED (test code = GLUBED) 215 MG/DL 70-110 H Performed by certified crusher and blender operator at [facility] [id number] 12:29:00* Test Item Value Reference Range Interpretation Comments GLUBED (test code = GLUBED) 140 MG/DL 70-110 H Performed by certified crusher and blender operator at [facility] [id number] 06:57:00* Test Item Value Reference Range Interpretation Comments TROPONIN-I (test code = TROPI) 0.056 ng/mL 0.000-0.045 HH Negative: <= 0.045 Positive: >= 0.046 Correlation with serial results, other cardiac markers andclinical findings is necessary to determine the clinicalsignificance of this result. Results using different methodologies should not be comparedto one another as quantitative results may vary by method. COMMENTS: 3 troponins total (including troponin done in ED)LIPOPROTEIN LDL 2018-11-26 04:09:00* Test Item Value Reference Range Interpretation Comments LIPOPROTEIN LDL (test code = LDL) 61 mg/dL 0-100 N <100 [id number] NEAR OPTIMAL/ABOVE [id number] [id number] HIGH>MT=247 VERY HIGH*Guidelines provided by the National Cholesterol EducationProgram Adult Treatment Panel III [id number] 03:55:00* Test Item Value Reference Range Interpretation Comments TROPONIN-I (test code = TROPI) 0.052 ng/mL 0.000-0.045 HH Negative: <= 0.045 Positive: >= 0.046 Correlation with serial results, other cardiac markers andclinical findings is necessary to determine the clinicalsignificance of this result. Results using different methodologies should not be comparedto one another as quantitative results may vary by method. COMMENTS: 3 troponins total (including troponin done in ED)- CT ABD PELVIS W/[id number] 03:04:00 Name: TORI TRIPLETT [facility] : 1945 Age/S: 72 / M [address] [place] [address] Unit #: [id number] Loc: [place] [address] Phys: Av Danielle MD Acct: [id number] Dis Date: Status: ADM IN PHONE #: [phone] Exam Date: 11/26/2018 0236 FAX #: [phone] Reason: nausea/vomiting, +UA, elevated WBC count EXAMS: CPT CODE: [id number] CT ABD PELVIS W/CONT 65082 PROCEDURE: CT abdomen and pelvis with contrast [...] Signed Rep ort (CONTINUED) Name: TORI TRIPLETT [facility] [place] : 1945 Age/S: 72 / M [address] [facility] Unit #: [id number] Loc: [place], [place] [address] Phys: Av Danielle MD Acct: [id number] Dis Date: Status: ADM IN PHONE #: [phone] Exam Date: 11/26/2018235 FAX #: [phone] Reason: nausea/vomiting, +UA, elevated WBC count EXAMS: CPT CODE: [id number] CT ABD PELVIS W/CONT 35508 <Continued> ADDITIONAL FINDINGS: None. IMPRESSION: 1. Prostatic [...] Technologist:RT Bhavya(R) CTDI: DLP: Trnscb Date/Time: 11/26/2018 (030) Marlin Orig Print D/T: S: 11/26/2018 (030) CTDI: DLP: PAGE 2 Signed Report - CT ABD PELVIS W/[id number] 03:04:00 Name: TORI GREGORY [facility] [place] : 1945 Age/S: 72 / M [address] [place] [address] Blvd Unit #: [id number] Loc: [place] [address] Phys: Av Danielle MD Acct: [id number] Dis Date: Status: ADM IN PHONE #: [phone] Exam Date: 11/26/2018 023 FAX #: [phone] Reason: nausea/vomiting, +UA, elevated WBC count EXAMS: CPT CODE: [id number] CT ABD PELVIS W/CONT 25416 PROCEDURE: CT abdomen and pelvis with contrast [...] TORI GREGORY [facility] [place] : 1945 Age/S: 72 / M [address] Unit #: [id number] Loc: NIMESH [place] [address] Phys: Av Danielle MD Acct: [id number] Dis Date: Status: ADM IN PHONE #: [phone] Exam Date: 11/26/2018 0236 FAX #: [phone] Reason: nausea/vomiting, +UA, elevated WBC count EXAMS: CPT CODE: [id number] CT ABD PELVIS W/CONT 57217 <Continued> ADDITIONAL FINDINGS: None. IMPRESSION: 1. Prostatic [...] Bhavya(R) CTDI: DLP: Trnscb Date/Time: 11/26/2018 (303) KortneyDMArsh Orig Print D/T: S: 11/26/2018 (307) CTDI: DLP: PAGE 2 Signed Report PROTHROMBIN [id number] 01:27:00* Test Item Value Reference Range Interpretation Comments PROTHROMBIN TIME PATIENT (test code = PTP) 13.4 SECONDS 9.3-12.9 H INTERNATIONAL NORMAL RATIO (test code = INR) 1.2 0.8-1.2 N TARGET INR BY INDICATION Indication INR1. Prophylaxis [...] Infarction (to prevent recurrent infarct). THROMBOPLASTIN TIME [id number] 01:27:00* Test Item Value Reference Range Interpretation Comments THROMBOPLASTIN TIME PARTIAL (test code = PTT) 29.8 Seconds 25.0-39. 5 N Therapeutic Range: 50.4 - 88.3 Seconds Effective 11/12/2018 BASIC METABOLIC [id number] 01:14:00* Test Item Value Reference Range Interpretation Comments SODIUM (test code = NA) 137 mEq/L 134-147 N POTASSIUM (test code = K) 3.6 mEq/L 3.4-5.0 N CHLORIDE (test code = CL) 106 mEq/L 100-108 N CARBON DIOXIDE (test code = CO2) 24 mEq/L 21-33 N ANION GAP (test code = GAP) 11 0-20 N GLUCOSE (test code = GLU) 137 mg/dL 70-110 H BLOOD UREA NITROGEN (test code = BUN) 18 mg/dL 7-18 N GLOMERULAR FILTRATION RATE (test code = GFR) 82.9 70-80 H Units of measure = ml/min/1.73 m2 CREATININE (test code = CREAT) 0.9 mg/dL 0.6-1.3 N CALCIUM (test code = CA) 8.9 mg/dL 8.0-10.5 N HEPATIC FUNCTION [id number] 01:14:00* Test Item Value Reference Range Interpretation Comments TOTAL PROTEIN (test code = PROT) 7.6 g/dL 6.4-8.2 N ALBUMIN (test code = ALB) 3.40 g/dL 3.4-5.0 N BILIRUBIN TOTAL (test code = BILT) 0.30 mg/dL 0.0-1.0 N BILIRUBIN DIRECT (test code = BILD) 0.10 MG/DL 0.0-0.30 N BILIRUBIN INDIRECT (test code = BILIND) 0.20 MG/DL SGOT/AST (test code = AST) 13 IUnit/L 15-37 L SGPT/ALT (test code = ALT) 13 IUnit/L 15-65 L ALKALINE PHOSPHATASE TOTAL (test code = ALKP) 68 IUnit/L 20-125 N [id number] 01:14:00* Test Item Value Reference Range Interpretation Comments LIPASE (test code = LIP) 135 IUnit/L 73-393 N [id number] 01:14:00* Test Item Value Reference Range Interpretation Comments TROPONIN-I (test code = TROPI) 0.043 ng/mL 0.000-0.045 N Negative: <= 0.045 Positive: >= 0.046 Correlation with serial results, other cardiac markers andclinical findings is necessary to determine the clinicalsignificance of this result. Results using different methodologies should not be comparedto one another as quantitative results may vary by method. URINALYSIS [id number] 01:11:00* Test Item Value Reference Range Interpretation Comments UA COLOR (test code = COLU) YELLOW YEL/STRAW UA APPEARANCE (test code = APPU) CLEAR CLEAR UA GLUCOSE DIPSTICK (test code = DGLUU) NEGATIVE NEGATIVE UA BILIRUBIN DIPSTICK (test code = BILU) NEGATIVE NEGATIVE UA KETONE DIPSTICK (test code = KETU) NEGATIVE NEGATIVE UA SPECIFIC GRAVITY (test code = SGU) 1.009 1.005-1.030 N UA BLOOD DIPSTICK (test code = BO) 2+ NEGATIVE A UA PH DIPSTICK (test code = MARIBEL) 7.0 5.0-7.0 N UA PROTEIN DIPSTICK (test code = PROU) NEGATIVE NEGATIVE UA UROBILINIOGEN DIPSTICK (test code = URO) 0.2 mg/dL 0.2-1.0 UA NITRITE DIPSTICK (test code = JAMEEL) NEGATIVE NEGATIVE UA LEUKOCYTE ESTERASE DIPSTICK (test code = LEUU) 3+ NEGA TIVE A UA WBC (test code = WBCU) 21-50 WBC/HPF 0-3 A UA RBC (test code = RBCU) >50 RBC/HPF 0-3 A UA BACTERIA (test code = BACU) NONE SEEN /HPF NONE SEEN UA SQUAMOUS CELLS (test code = SQU) 0-5 /HPF NONE SEEN CBC W/O [id number] 01:01:00* Test Item Value Reference Range Interpretation Comments WHITE BLOOD CELL (test code = WBC) 13.66 x10 3/uL 4.5-11.0 H RED BLOOD CELL (test code = RBC) 4.13 x10 6/uL 4.00-5.60 N HEMOGLOBIN (test code = HGB) 11.1 g/dL 12.5-16.9 L HEMATOCRIT (test code = HCT) 34.4 % 37.5-50.7 L MEAN CELL VOLUME (test code = MCV) 83.3 fL 81.0-99.0 N MEAN CELL HGB (test code = MCH) 26.9 pg 27.0-33.0 L MEAN CELL HGB CONCETRATION (test code = MCHC) 32.3 g/dL 33.0-37. 0 L RED CELL DISTRIBUTION WIDTH CV (test code = RDW) 15.1 % 11.5- 14.5 H RED CELL DISTRIBUTION WIDTH SD (test code = RDW-SD) 45.7 fL 37 .0-54.0 N PLATELET COUNT (test code = PLT) 297 x10 3/uL 150-400 N MEAN PLATELET VOLUME (test code = MPV) 10.1 fL 7.0-9.0 H - XR CHEST 1 [id number] 00:37:00 FAX: Av Danielle MD [phone] [place]: St: REG Name: TORI WILSON [facility] : [birth year] Age/S: 72/M [address] [place] [address] Unit #: [id number] Loc: [address] [place] [address] Phys: Av Danielle MD Acct: [id number] Dis Date: Status: REG ER PHONE #: [phone] Exam Date: 11/26/2018 0022 FAX #: [phone] Reason: stroke EXAMS: CPT CODE: [id number] XR CHEST 1 V 23560 Chest, single view dated 11/26/2018. HISTORY: Stroke. [...] Myron(R) Trnscrd Date/Time/By: 11/26/2018 (0037) : By: LatoyaM Orig Print D/T: S: 11/26/2018 (004) PAGE 1 Signed Report - XR CHEST 1 [id number] 00:37:00 FAX: Av Danielle MD [phone] [place]: St: ADM Name: Arsh JAYSKIP MIATORI [facility] : [birth year] Age/S: 72/M [address] [place] [address] Blvd Unit #: [id number] Loc: [address] [place] [address] Phys: Av Danielle MD Acct: [id number] Dis Date: Status: ADM IN PHONE #: [phone] Exam Date: 11/26/2018 0022 FAX #: [phone] Reason: stroke EXAMS: CPT CODE: [id number] XR CHEST 1 V 27005 Chest, single view dated 11/26/2018. HISTORY: Stroke. [...] MD Technologist: RT Myron(R) Trnscrd Date/Time/By: 11/26/2018 (003) : By: KortneyDMM Orig Print D/T: S: 11/26/2018 (004) PAGE 1 Signed Report - CT HEAD/BRAIN W/O [id number] 00:34:00 Name: TORI TRIPLETT [facility] : 1945 Age/S: 72 / M [address] [place] [address] Unit #: [id number] Loc: [place] [address] Phys: Destin Danielle MD Acct: [id number] Di s Date: Status: REG ER PHONE #: [phone] Exam Date: 11/26/2018 0010 FAX #: [phone] Reason: nausea/vomiting, dizziness EXAMS: CPT CODE: [id number] CT HEAD/BRAIN W/O CONT 01424 CT head without contrast . CLINICAL HISTORY: [...] Weir M.D. CC: Av Danielle MD Technologist:Faisal Chahal RT(R) CTDI: DLP: Trnscb Date/Time: 11/26/2018 (003) [email or web address] Orig Print D/T: S: 11/26/2018 (003) CTDI: DLP: PAGE 1 Signed Report - CT HEAD/BRAIN W/O [id number] 00:34:00 Name: TORI GREGORY [facility] : 1945 Age/S: 72 / M [address] [place] [address] Unit #: [id number] Loc: [place] [address] Phys: Av Danielle MD Acct: [id number] Dis Date: Status: ADM IN PHONE #: [phone] Exam Date: 11/26/2018 0010 FAX #: [phone] Reason: nausea/vomiting, dizziness EXAMS: CPT CODE: [id number] CT HEAD/BRAIN W/O CONT 54655 CT head without contrast . CLINICAL HISTORY: [...] Technologist:RT Angelic(R) CTDI: DLP: Trnscb Date/Time: 11/26/2018 (0034) KortneyUK1 Orig Print D/T: S: 11/26/2018 (0038) CTDI: DLP: PAGE 1 Signed Report [id number] 20:59:00* Test Item Value Reference Range Interpretation Comments GLUBED (test code = GLUBED) 89 MG/DL 70-110 N Performed by certified crusher and blender operator at [facility] [id number] 08:03:00* Test Item Value Reference Range Interpretation Comments MAGNESIUM (test code = MAG) 2.40 mg/dL 1.8-2.4 N [id number] 06:23:00* Test Item Value Reference Range Interpretation Comments GLUBED (test code = GLUBED) 128 MG/DL 70-110 H Performed by certified crusher and blender operator at [facility] [id number] 21:04:00* Test Item Value Reference Range Interpretation Comments GLUBED (test code = GLUBED) 137 MG/DL 70-110 H Performed by certified crusher and blender operator at [facility] [id number] 16:29:00* Test Item Value Reference Range Interpretation Comments GLUBED (test code = GLUBED) 113 MG/DL 70-110 H Performed by certified crusher and blender operator at [facility] [id number] 11:05:00* Test Item Value Reference Range Interpretation Comments GLUBED (test code = GLUBED) 162 MG/DL 70-110 H Performed by certified crusher and blender operator at [facility] [id number] 06:16:00* Test Item Value Reference Range Interpretation Comments GLUBED (test code = GLUBED) 67 MG/DL 70-110 L Performed by certified crusher and blender operator at [facility] [id number] 20:55:00* Test Item Value Reference Range Interpretation Comments GLUBED (test code = GLUBED) 164 MG/DL 70-110 H Performed by certified crusher and blender operator at [facility] [id number] 16:19:00* Test Item Value Reference Range Interpretation Comments GLUBED (test code = GLUBED) 79 MG/DL 70-110 N Performed by certified crusher and blender operator at [facility] [id number] 11:39:00* Test Item Value Reference Range Interpretation Comments GLUBED (test code = GLUBED) 116 MG/DL 70-110 H Performed by certified crusher and blender operator at [facility] COMPREHENSIVE METABOLIC [id number] 08:10:00* Test Item Value Reference Range Interpretation Comments SODIUM (test code = NA) 139 mEq/L 134-147 N POTASSIUM (test code = K) 3.9 mEq/L 3.4-5.0 N CHLORIDE (test code = CL) 104 mEq/L 100-108 N CARBON DIOXIDE (test code = CO2) 32 mEq/L 21-33 N ANION GAP (test code = GAP) 7 0-20 N GLUCOSE (test code = GLU) 59 mg/dL 70-110 L BLOOD UREA NITROGEN (test code = BUN) 17 mg/dL 7-18 N GLOMERULAR FILTRATION RATE (test code = GFR) 82.9 70-80 H Units of measure = ml/min/1.73 m2 CREATININE (test code = CREAT) 0.9 mg/dL 0.6-1.3 N TOTAL PROTEIN (test code = PROT) 6.6 g/dL 6.4-8.2 N ALBUMIN (test code = ALB) 2.60 g/dL 3.4-5.0 L CALCIUM (test code = CA) 8.8 mg/dL 8.0-10.5 N BILIRUBIN TOTAL (test code = BILT) 0.40 mg/dL 0.0-1.0 N SGOT/AST (test code = AST) 13 IUnit/L 15-37 L SGPT/ALT (test code = ALT) 21 IUnit/L 15-65 N ALKALINE PHOSPHATASE TOTAL (test code = ALKP) 85 IUnit/L 20-125 N CBC W/AUTO [id number] 07:59:00* Test Item Value Reference Range Interpretation Comments WHITE BLOOD CELL (test code = WBC) 8.29 x10 3/uL 4.5-11.0 N RED BLOOD CELL (test code = RBC) 3.35 x10 6/uL 4.00-5.60 L HEMOGLOBIN (test code = HGB) 8.9 g/dL 12.5-16.9 L HEMATOCRIT (test code = HCT) 30.1 % 37.5-50.7 L MEAN CELL VOLUME (test code = MCV) 89.9 fL 81.0-99.0 N MEAN CELL HGB (test code = MCH) 26.6 pg 27.0-33.0 L MEAN CELL HGB CONCETRATION (test code = MCHC) 29.6 g/dL 33.0-37. 0 L RED CELL DISTRIBUTION WIDTH CV (test code = RDW) 15.9 % 11.5- 14.5 H RED CELL DISTRIBUTION WIDTH SD (test code = RDW-SD) 52.0 fL 37 .0-54.0 N PLATELET COUNT (test code = PLT) 458 x10 3/uL 150-400 H MEAN PLATELET VOLUME (test code = MPV) 9.5 fL 7.0-9.0 H NEUTROPHIL % (test code = NT%) 61.2 % 56.0-77.0 N IMMATURE GRANULOCYTE % (test code = IG%) 0.2 % 0.0-2.0 N LYMPHOCYTE % (test code = LY%) 24.6 % 14.0-32.0 N MONOCYTE % (test code = MO%) 7.8 % 4.8-9.0 N EOSINOPHIL % (test code = EO%) 5.8 % 0.3-3.7 H BASOPHIL % (test code = BA%) 0.4 % 0.0-2.0 N NUCLEATED RBC % (test code = NRBC%) 0.0 % 0-0 N NEUTROPHIL # (test code = NT#) 5.07 x10 3/uL 2.0-7.6 N IMMATURE GRANULOCYTE # (test code = IG#) 0.02 x10 3/uL 0.00-0.03 N LYMPHOCYTE # (test code = LY#) 2.04 x10 3/uL 1.0-3.8 N MONOCYTE # (test code = MO#) 0.65 x10 3/uL 0.1-0.8 N EOSINOPHIL # (test code = EO#) 0.48 x10 3/uL 0.0-0.2 H BASOPHIL # (test code = BA#) 0.03 x10 3/uL 0.0-0.2 N NUCLEATED RBC # (test code = NRBC#) 0.00 x10 3/uL 0.0-0.1 N MANUAL DIFF REQUIRED (test code = MDIFF) NO [id number] 05:58:00* Test Item Value Reference Range Interpretation Comments GLUBED (test code = GLUBED) 71 MG/DL 70-110 N Performed by certified crusher and blender operator at [facility] [id number] 19:17:00* Test Item Value Reference Range Interpretation Comments GLUBED (test code = GLUBED) 150 MG/DL 70-110 H Performed by certified crusher and blender operator at [facility] [id number] 16:47:00* Test Item Value Reference Range Interpretation Comments GLUBED (test code = GLUBED) 202 MG/DL 70-110 H Performed by certified crusher and blender operator at [facility] [id number] 16:47:00* Test Item Value Reference Range Interpretation Comments GLUBED (test code = GLUBED) 88 MG/DL 70-110 N Performed by certified crusher and blender operator at [facility]2019-02-10 08:36:00* Test Item Value Reference Range Interpretation Comments GLUBED (test code = GLUBED) 103 MG/DL 70-110 N Performed by certified crusher and blender operator at [facility] [id number] 06:48:00* Test Item Value Reference Range Interpretation Comments GLUBED (test code = GLUBED) 60 MG/DL 70-110 L Performed by certified crusher and blender operator at [facility] [id number] 19:57:00* Test Item Value Reference Range Interpretation Comments GLUBED (test code = GLUBED) 267 MG/DL 70-110 H Performed by certified crusher and blender operator at [facility] [id number] 19:57:00* Test Item Value Reference Range Interpretation Comments GLUBED (test code = GLUBED) 95 MG/DL 70-110 N Performed by certified crusher and blender operator at [facility] [id number] 19:57:00* Test Item Value Reference Range Interpretation Comments GLUBED (test code = GLUBED) 107 MG/DL 70-110 N Performed by certified crusher and blender operator at [facility] [id number] 07:20:00* Test Item Value Reference Range Interpretation Comments GLUBED (test code = GLUBED) 75 MG/DL 70-110 N Performed by certified crusher and blender operator at [facility] [id number] 20:40:00* Test Item Value Reference Range Interpretation Comments GLUBED (test code = GLUBED) 101 MG/DL 70-110 N Performed by certified crusher and blender operator at [facility] [id number] 17:32:00* Test Item Value Reference Range Interpretation Comments GLUBED (test code = GLUBED) 103 MG/DL 70-110 N Performed by certified crusher and blender operator at [facility] [id number] 11:35:00* Test Item Value Reference Range Interpretation Comments GLUBED (test code = GLUBED) 83 MG/DL 70-110 N Performed by certified crusher and blender operator at [facility] [id number] 06:46:00* Test Item Value Reference Range Interpretation Comments GLUBED (test code = GLUBED) 71 MG/DL 70-110 N Performed by certified crusher and blender operator at [facility] [id number] 20:44:00* Test Item Value Reference Range Interpretation Comments GLUBED (test code = GLUBED) 88 MG/DL 70-110 N Performed by certified crusher and blender operator at [facility] [id number] 16:11:00* Test Item Value Reference Range Interpretation Comments GLUBED (test code = GLUBED) 154 MG/DL 70-110 H Performed by certified crusher and blender operator at [facility] [id number] 11:36:00* Test Item Value Reference Range Interpretation Comments GLUBED (test code = GLUBED) 82 MG/DL 70-110 N Performed by certified crusher and blender operator at [facility] [id number] 05:52:00* Test Item Value Reference Range Interpretation Comments GLUBED (test code = GLUBED) 98 MG/DL 70-110 N Performed by certified crusher and blender operator at [facility] [id number] 20:10:00* Test Item Value Reference Range Interpretation Comments GLUBED (test code = GLUBED) 125 MG/DL 70-110 H Performed by certified crusher and blender operator at [facility] [id number] 16:49:00* Test Item Value Reference Range Interpretation Comments GLUBED (test code = GLUBED) 190 MG/DL 70-110 H Performed by certified crusher and blender operator at [facility] - XR CHEST 2 [id number] 11:57:00 FAX: Claudio Messer [phone] [place]: St: ADM Name: TORI SOMERS [facility] : [birth year] Age/S: 72/M [address] [place] [address] Blvd Unit #: [id number] Loc: [address] [place] [address] Phys: Claudio Mendoza MD Acct: [id number] Dis Date: Status: ADM IN PHONE #: [phone] Exam Date: 09/04/2018 1126 FAX #: [phone] Reason: FOLLOW PLEURAL EFFUSION (REASSESS) EXAMS: CPT CODE: [id number] XR CHEST 2 V 22790 Clinical Indication: Follow-up on pleural effusion; Comparison: [...] foci or infiltrates. 2. Stable cardiomegaly. SL: [id number] E lectronically Signed by Marcos Fatima on 09/04/2018 at 1157 Reported and signed by: Rj Fatima D.O. CC: Claudio Mendoza MD Technologist: Megan Harrison RT(R) Trnscrd Date/Time/By: 09/04/2018 (7584) : By: [email or web address] Orig Print D/T: S: 09/04/2018 (1200) PAGE 1 Signed Report [id number] 11:20:00* Test Item Value Reference Range Interpretation Comments GLUBED (test code = GLUBED) 133 MG/DL 70-110 H Performed by certified crusher and blender operator at [facility] [id number] 06:15:00* Test Item Value Reference Range Interpretation Comments GLUBED (test code = GLUBED) 117 MG/DL 70-110 H Performed by certified crusher and blender operator at [facility] [id number] 19:53:00* Test Item Value Reference Range Interpretation Comments GLUBED (test code = GLUBED) 150 MG/DL 70-110 H Performed by certified crusher and blender operator at [facility] [id number] 15:58:00* Test Item Value Reference Range Interpretation Comments GLUBED (test code = GLUBED) 151 MG/DL 70-110 H Performed by certified crusher and blender operator at [facility] VITAMIN D 1,93-[id number] 11:20:00* Test Item Value Reference Range Interpretation Comments VITAMIN D 1,25-DIHYDROXY (test code = QOVN134) 14.2 pg/mL 19.9-79 .3 A Performed At: [address] [id number] Sanjai MD Ph:[id number] 10:57:00* Test Item Value Reference Range Interpretation Comments GLUBED (test code = GLUBED) 178 MG/DL 70-110 H Performed by certified crusher and blender operator at [facility] [id number] 10:57:00* Test Item Value Reference Range Interpretation Comments GLUBED (test code = GLUBED) 118 MG/DL 70-110 H Performed by certified crusher and blender operator at [facility] [id number] 19:57:00* Test Item Value Reference Range Interpretation Comments GLUBED (test code = GLUBED) 182 MG/DL 70-110 H Performed by certified crusher and blender operator at [facility] [id number] 17:25:00* Test Item Value Reference Range Interpretation Comments GLUBED (test code = GLUBED) 171 MG/DL 70-110 H Performed by certified crusher and blender operator at [facility] [id number] 11:32:00* Test Item Value Reference Range Interpretation Comments GLUBED (test code = GLUBED) 209 MG/DL 70-110 H Performed by certified crusher and blender operator at [facility] [id number] 06:36:00* Test Item Value Reference Range Interpretation Comments GLUBED (test code = GLUBED) 111 MG/DL 70-110 H Performed by certified crusher and blender operator at [facility] [id number] 20:17:00* Test Item Value Reference Range Interpretation Comments GLUBED (test code = GLUBED) 242 MG/DL 70-110 H Performed by certified crusher and blender operator at [facility] [id number] 16:46:00* Test Item Value Reference Range Interpretation Comments GLUBED (test code = GLUBED) 281 MG/DL 70-110 H Performed by certified crusher and blender operator at [facility] [id number] 11:23:00* Test Item Value Reference Range Interpretation Comments GLUBED (test code = GLUBED) 207 MG/DL 70-110 H Performed by certified crusher and blender operator at [facility] [id number] 07:14:00* Test Item Value Reference Range Interpretation Comments GLUBED (test code = GLUBED) 160 MG/DL 70-110 H Performed by certified crusher and blender operator at [facility] [id number] 05:58:00* Test Item Value Reference Range Interpretation Comments GLUBED (test code = GLUBED) 162 MG/DL 70-110 H Performed by certified crusher and blender operator at [facility] [id number] 21:19:00* Test Item Value Reference Range Interpretation Comments GLUBED (test code = GLUBED) 197 MG/DL 70-110 H Performed by certified crusher and blender operator at [facility] BASIC METABOLIC [id number] 17:01:00* Test Item Value Reference Range Interpretation Comments SODIUM (test code = NA) 137 mEq/L 134-147 N POTASSIUM (test code = K) 3.6 mEq/L 3.4-5.0 N CHLORIDE (test code = CL) 101 mEq/L 100-108 N CARBON DIOXIDE (test code = CO2) 30 mEq/L 21-33 N ANION GAP (test code = GAP) 10 0-20 N GLUCOSE (test code = GLU) 258 mg/dL 70-110 H BLOOD UREA NITROGEN (test code = BUN) 25 mg/dL 7-18 H GLOMERULAR FILTRATION RATE (test code = GFR) 65.8 70-80 L Units of measure = ml/min/1.73 m2 CREATININE (test code = CREAT) 1.1 mg/dL 0.6-1.3 N CALCIUM (test code = CA) 8.8 mg/dL 8.0-10.5 N COMPREHENSIVE METABOLIC [id number] 17:01:00* Test Item Value Reference Range Interpretation Comments TOTAL PROTEIN (test code = PROT) 6.3 g/dL 6.4-8.2 L ALBUMIN (test code = ALB) 2.50 g/dL 3.4-5.0 L BILIRUBIN TOTAL (test code = BILT) 0.30 mg/dL 0.0-1.0 N SGOT/AST (test code = AST) 17 IUnit/L 15-37 N SGPT/ALT (test code = ALT) 54 IUnit/L 15-65 N ALKALINE PHOSPHATASE TOTAL (test code = ALKP) 78 IUnit/L 20-125 N BASIC METABOLIC [id number] 16:59:00* Test Item Value Reference Range Interpretation Comments SODIUM (test code = NA) 137 mEq/L 134-147 N POTASSIUM (test code = K) 3.6 mEq/L 3.4-5.0 N CHLORIDE (test code = CL) 101 mEq/L 100-108 N CARBON DIOXIDE (test code = CO2) 30 mEq/L 21-33 N ANION GAP (test code = GAP) 10 0-20 N GLUCOSE (test code = GLU) 258 mg/dL 70-110 H BLOOD UREA NITROGEN (test code = BUN) 25 mg/dL 7-18 H GLOMERULAR FILTRATION RATE (test code = GFR) 65.8 70-80 L Units of measure = ml/min/1.73 m2 CREATININE (test code = CREAT) 1.1 mg/dL 0.6-1.3 N CALCIUM (test code = CA) 8.8 mg/dL 8.0-10.5 N COMPREHENSIVE METABOLIC [id number] 16:59:00* Test Item Value Reference Range Interpretation Comments TOTAL PROTEIN (test code = PROT) g/dL 6.4-8.2 ALBUMIN (test code = ALB) 2.50 g/dL 3.4-5.0 L BILIRUBIN TOTAL (test code = BILT) mg/dL 0.0-1.0 SGOT/AST (test code = AST) 17 IUnit/L 15-37 N SGPT/ALT (test code = ALT) 54 IUnit/L 15-65 N ALKALINE PHOSPHATASE TOTAL (test code = ALKP) IUnit/L 20-125 [id number] 16:38:00* Test Item Value Reference Range Interpretation Comments GLUBED (test code = GLUBED) 236 MG/DL 70-110 H Performed by certified crusher and blender operator at [facility] [id number] 12:24:00* Test Item Value Reference Range Interpretation Comments GLUBED (test code = GLUBED) 207 MG/DL 70-110 H Performed by certified crusher and blender operator at [facility] [id number] 06:23:00* Test Item Value Reference Range Interpretation Comments GLUBED (test code = GLUBED) 176 MG/DL 70-110 H Performed by certified crusher and blender operator at [facility] [id number] 21:12:00* Test Item Value Reference Range Interpretation Comments GLUBED (test code = GLUBED) 235 MG/DL 70-110 H Performed by certified crusher and blender operator at [facility] [id number] 16:46:00* Test Item Value Reference Range Interpretation Comments GLUBED (test code = GLUBED) 312 MG/DL 70-110 H Performed by certified crusher and blender operator at [facility] [id number] 12:28:00* Test Item Value Reference Range Interpretation Comments GLUBED (test code = GLUBED) 230 MG/DL 70-110 H Performed by certified crusher and blender operator at [facility] VITAMIN [id number] 09:27:00* Test Item Value Reference Range Interpretation Comments VITAMIN B12 (test code = VITB12) 4724 pg/mL 193-986 H FOLIC [id number] 09:27:00* Test Item Value Reference Range Interpretation Comments FOLIC ACID (test code = FOL) 14.9 ng/mL 3.1-17.5 N THYROID STIMULATING [id number] 09:27:00* Test Item Value Reference Range Interpretation Comments THYROID STIMULATING HORMONE (test code = TSH) 1.34 0.42-5.4 7 N Results in yogesh- International Units/mL [id number] 07:17:00* Test Item Value Reference Range Interpretation Comments GLUBED (test code = GLUBED) 193 MG/DL 70-110 H Performed by certified crusher and blender operator at [facility] [id number] 21:21:00* Test Item Value Reference Range Interpretation Comments GLUBED (test code = GLUBED) 285 MG/DL 70-110 H Performed by certified crusher and blender operator at [facility] [id number] 16:42:00* Test Item Value Reference Range Interpretation Comments GLUBED (test code = GLUBED) 285 MG/DL 70-110 H Performed by certified crusher and blender operator at [facility] [id number] 15:10:00* Test Item Value Reference Range Interpretation Comments SGOT/AST (test code = AST) 23 IUnit/L 15-37 N COMMENTS: blood in labSGPT/[id number] 15:10:00* Test Item Value Reference Range Interpretation Comments SGPT/ALT (test code = ALT) 91 IUnit/L 15-65 H COMMENTS: blood in lab- XR CHEST 1 [id number] 12:48:00 FAX: Shalom Lisa I [phone] [place]: St: ADM FAX: Candie Reinoso (C Name: UZIEL REDDLaryELVIABASIL [facility] : 1945 Age/S: 72/M [address] [place] [address] Unit #: [id number] Loc: G.3362 [facility] [address] Phys: Candie Reinoso (Beckie) 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 s/p cabg EXAMS: CPT CODE: [id number] XR CHEST 1 V 10820 CHEST 1 VIEW: 08/29/2018 COMPARISON: August 26, [...] infilt rates, left greater than right. at 1248 Reported and signed by: Cedrick Cervantes M.D. CC: Shalom Guillermo MD; Candie Reinoso NP (Christy) Technologist: Rae Solorzano, RT(R); Grecia Baird RT(R) [facility] Date/Time/By: 08/29/2018 (5008) : By: [email or web address] Orig Print D/T: S: 08/29/2018 (2729) PAGE 1 Signed Report [id number] 12:00:00* Test Item Value Reference Range Interpretation Comments GLUBED (test code = GLUBED) 304 MG/DL 70-110 H Performed by certified crusher and blender operator at [facility] [id number] 08:34:00* Test Item Value Reference Range Interpretation Comments GLUBED (test code = GLUBED) 206 MG/DL 70-110 H Performed by certified crusher and blender operator at [facility] BASIC METABOLIC [id number] 04:21:00* Test Item Value Reference Range Interpretation Comments SODIUM (test code = NA) 138 mEq/L 134-147 N POTASSIUM (test code = K) 4.2 mEq/L 3.4-5.0 N CHLORIDE (test code = CL) 101 mEq/L 100-108 N CARBON DIOXIDE (test code = CO2) 31 mEq/L 21-33 N ANION GAP (test code = GAP) 10 0-20 N GLUCOSE (test code = GLU) 211 mg/dL 70-110 H BLOOD UREA NITROGEN (test code = BUN) 27 mg/dL 7-18 H GLOMERULAR FILTRATION RATE (test code = GFR) 54.3 70-80 L Units of measure = ml/min/1.73 m2 CREATININE (test code = CREAT) 1.3 mg/dL 0.6-1.3 CALCIUM (test code = CA) 9.2 mg/dL 8.0-10.5 N [id number] 04:21:00* Test Item Value Reference Range Interpretation Comments MAGNESIUM (test code = MAG) 2.10 mg/dL 1.8-2.4 N CBC W/AUTO [id number] 04:09:00* Test Item Value Reference Range Interpretation Comments WHITE BLOOD CELL (test code = WBC) 11.77 x10 3/uL 4.5-11.0 H RED BLOOD CELL (test code = RBC) 3.14 x10 6/uL 4.00-5.60 L HEMOGLOBIN (test code = HGB) 8.5 g/dL 12.5-16.9 L HEMATOCRIT (test code = HCT) 28.7 % 37.5-50.7 L MEAN CELL VOLUME (test code = MCV) 91.4 fL 81.0-99.0 N MEAN CELL HGB (test code = MCH) 27.1 pg 27.0-33.0 N MEAN CELL HGB CONCETRATION (test code = MCHC) 29.6 g/dL 33.0-37. 0 L RED CELL DISTRIBUTION WIDTH CV (test code = RDW) 16.8 % 11.5- 14.5 H RED CELL DISTRIBUTION WIDTH SD (test code = RDW-SD) 55.3 fL 37 .0-54.0 H PLATELET COUNT (test code = PLT) 337 x10 3/uL 150-400 N MEAN PLATELET VOLUME (test code = MPV) 10.7 fL 7.0-9.0 H NEUTROPHIL % (test code = NT%) 69.1 % 56.0-77.0 N IMMATURE GRANULOCYTE % (test code = IG%) 0.7 % 0.0-2.0 N LYMPHOCYTE % (test code = LY%) 16.1 % 14.0-32.0 N MONOCYTE % (test code = MO%) 8.8 % 4.8-9.0 N EOSINOPHIL % (test code = EO%) 5.0 % 0.3-3.7 H BASOPHIL % (test code = BA%) 0.3 % 0.0-2.0 N NUCLEATED RBC % (test code = NRBC%) 0.0 % 0-0 N NEUTROPHIL # (test code = NT#) 8.13 x10 3/uL 2.0-7.6 H IMMATURE GRANULOCYTE # (test code = IG#) 0.08 x10 3/uL 0.00-0.03 H LYMPHOCYTE # (test code = LY#) 1.89 x10 3/uL 1.0-3.8 N MONOCYTE # (test code = MO#) 1.04 x10 3/uL 0.1-0.8 H EOSINOPHIL # (test code = EO#) 0.59 x10 3/uL 0.0-0.2 H BASOPHIL # (test code = BA#) 0.04 x10 3/uL 0.0-0.2 N NUCLEATED RBC # (test code = NRBC#) 0.00 x10 3/uL 0.0-0.1 N MANUAL DIFF REQUIRED (test code = MDIFF) NO [id number] 21:41:00* Test Item Value Reference Range Interpretation Comments GLUBED (test code = GLUBED) 230 MG/DL 70-110 H Performed by certified crusher and blender operator at [facility] [id number] 16:36:00* Test Item Value Reference Range Interpretation Comments GLUBED (test code = GLUBED) 315 MG/DL 70-110 H Performed by certified crusher and blender operator at [facility] [id number] 11:10:00* Test Item Value Reference Range Interpretation Comments GLUBED (test code = GLUBED) 287 MG/DL 70-110 H Performed by certified crusher and blender operator at [facility] [id number] 08:15:00* Test Item Value Reference Range Interpretation Comments GLUBED (test code = GLUBED) 170 MG/DL 70-110 H Performed by certified crusher and blender operator at [facility] BASIC METABOLIC [id number] 04:34:00* Test Item Value Reference Range Interpretation Comments SODIUM (test code = NA) 138 mEq/L 134-147 N POTASSIUM (test code = K) 4.0 mEq/L 3.4-5.0 N CHLORIDE (test code = CL) 100 mEq/L 100-108 N CARBON DIOXIDE (test code = CO2) 31 mEq/L 21-33 N ANION GAP (test code = GAP) 11 0-20 N GLUCOSE (test code = GLU) 165 mg/dL 70-110 H BLOOD UREA NITROGEN (test code = BUN) 19 mg/dL 7-18 H GLOMERULAR FILTRATION RATE (test code = GFR) 73.5 70-80 N Units of measure = ml/min/1.73 m2 CREATININE (test code = CREAT) 1.0 mg/dL 0.6-1.3 N CALCIUM (test code = CA) 9.0 mg/dL 8.0-10.5 N [id number] 20:25:00* Test Item Value Reference Range Interpretation Comments GLUBED (test code = GLUBED) 289 MG/DL 70-110 H Performed by certified crusher and blender operator at 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 EVALUATE FOR POSS THORACO EXAMS: CPT CODE: [id number] CT CHEST W/O CONTRAST 57476 EXAM: CT CHEST WITHOUT CONTRAST DATE: 08/27/2018 [...] 1 Signed Report (CONTINUED) Name: TORI GREGORY [facility] : 1945 Age/S: 72 / M [address] [place] [address] Blvd Unit #: [id number] Loc: [place] [address] Phys: Maribel Reinoso (Beckie) MALT HOUSE OPERATOR Acct: [id number] Di s Date: Status: ADM IN PHONE #: [phone] Exam Date: 08/27/2018 1320 FAX #: [phone] Reason: F/U PLEURAL EFFUSION. EVALUATE FOR POSS THORACO EXAMS: CPT CODE: [id number] CT CHEST W/O CONTRAST 54379 <Continued> IMPRESSION: 1. Persistent moderate atelectatic changes in the left lower lobe. Improved aeration of the right lung base compared to prior examination. Unchanged mild to moderate left pleural effusion. Interval decrease in small right pleural effusion. Superimposed bilateral lower lobes infectious process cannot be excluded. 2. Postsurgical changes with some fluid within the anterior mediastinum. SL: [id number] at 1411 Reported and signed by: Rachel Glaser D.O. CC: Shalom Guillermo MD; Candie Reinoso NP (Christy) Technologist:RT Tevin(R)(CT) CTDI: DLP: Trnscb Da te/Time: 08/27/2018 (1411) t.[id number] Orig Print D/T: S: 0 08/27/2018 (1415) CTDI: DLP: PAGE 2 Signed Report [id number] 12:43:00* Test Item Value Reference Range Interpretation Comments GLUBED (test code = GLUBED) 310 MG/DL 70-110 H Performed by certified crusher and blender operator at [facility] [id number] 09:02:00* Test Item Value Reference Range Interpretation Comments GLUBED (test code = GLUBED) 172 MG/DL 70-110 H Performed by certified crusher and blender operator at [facility] FLUID [id number] 04:17:00* Test Item Value Reference Range Interpretation Comments FLUID GLUCOSE (test code = GLUFL) 234 MG/DL Reference intervals and other method performancespecifications have not been established for this test. Thetest result should be integrated into the clinical contextfor interpretation. DIAGNOSIS :NEW ONSET CONGESTIVE HEART FAILUREPLEURAL FLUIDFLUID PROTEIN 2018-08-27 04:17:00* Test Item Value Reference Range Interpretation Comments FLUID PROTEIN (test code = PROTFL) 2.6 G/DL DIAGNOSIS :NEW ONSET CONGESTIVE HEART FAILUREPLEURAL FLUIDFLUID AMYLASE 2018-08-27 04:17:00* Test Item Value Reference Range Interpretation Comments FLUID AMYLASE (test code = AMYFL) < 30 UNITS/L Reference intervals and other method performancespecifications have not been established for this test. Thetest result should be integrated into the clinical contextfor interpretation. DIAGNOSIS :NEW ONSET CONGESTIVE HEART FAILUREPLEURAL FLUIDFLUID [id number] 04:17:00* Test Item Value Reference Range Interpretation Comments FLUID LDH (test code = LDHFL) 488 UNITS/L 50-1500 N Reference intervals and other method performancespecifications have not been established for this test. Thetest result should be integrated into the clinical contextfor interpretation. DIAGNOSIS :NEW ONSET CONGESTIVE HEART FAILUREPLEURAL FLUIDFLUID GLUCOSE 2018-08-27 04:17:00* Test Item Value Reference Range Interpretation Comments FLUID GLUCOSE (test code = GLUFL) 234 MG/DL () Reference intervals and other method performancespecifications have not been established for this test. Thetest result should be integrated into the clinical contextfor interpretation. DIAGNOSIS :NEW ONSET CONGESTIVE HEART FAILUREPLEURAL FLUIDFLUID PROTEIN 2018-08-27 04:17:00* Test Item Value Reference Range Interpretation Comments FLUID PROTEIN (test code = PROTFL) 2.6 G/DL () DIAGNOSIS :NEW ONSET CONGESTIVE HEART FAILUREPLEURAL FLUIDFLUID AMYLASE 2018-08-27 04:17:00* Test Item Value Reference Range Interpretation Comments FLUID AMYLASE (test code = AMYFL) < 30 UNITS/L () Reference intervals and other method performancespecifications have not been established for this test. Thetest result should be integrated into the clinical contextfor interpretation. DIAGNOSIS :NEW ONSET CONGESTIVE HEART FAILUREPLEURAL FLUIDFLUID [id number] 04:17:00* Test Item Value Reference Range Interpretation Comments FLUID LDH (test code = LDHFL) 488 UNITS/L 50-1500 Reference intervals and other method performancespecifications have not been established for this test. Thetest result should be integrated into the clinical contextfor interpretation. DIAGNOSIS :NEW ONSET CONGESTIVE HEART FAILUREPLEURAL FLUIDBASIC METABOLIC PANEL 2018-08-27 04:03:00* Test Item Value Reference Range Interpretation Comments SODIUM (test code = NA) 137 mEq/L 134-147 N POTASSIUM (test code = K) 3.7 mEq/L 3.4-5.0 N CHLORIDE (test code = CL) 99 mEq/L 100-108 L CARBON DIOXIDE (test code = CO2) 34 mEq/L 21-33 H ANION GAP (test code = GAP) 8 0-20 N GLUCOSE (test code = GLU) 178 mg/dL 70-110 H BLOOD UREA NITROGEN (test code = BUN) 17 mg/dL 7-18 N GLOMERULAR FILTRATION RATE (test code = GFR) 65.8 70-80 L Units of measure = ml/min/1.73 m2 CREATININE (test code = CREAT) 1.1 mg/dL 0.6-1.3 N CALCIUM (test code = CA) 8.6 mg/dL 8.0-10.5 N HEPATIC FUNCTION [id number] 04:03:00* Test Item Value Reference Range Interpretation Comments TOTAL PROTEIN (test code = PROT) 6.7 g/dL 6.4-8.2 N ALBUMIN (test code = ALB) 2.70 g/dL 3.4-5.0 L BILIRUBIN TOTAL (test code = BILT) 0.60 mg/dL 0.0-1.0 N BILIRUBIN DIRECT (test code = BILD) 0.20 MG/DL 0.0-0.30 N BILIRUBIN INDIRECT (test code = BILIND) 0.40 MG/DL SGOT/AST (test code = AST) 21 IUnit/L 15-37 N SGPT/ALT (test code = ALT) 142 IUnit/L 15-65 H ALKALINE PHOSPHATASE TOTAL (test code = ALKP) 75 IUnit/L 20-125 N CBC W/AUTO [id number] 03:49:00* Test Item Value Reference Range Interpretation Comments WHITE BLOOD CELL (test code = WBC) 12.49 x10 3/uL 4.5-11.0 H RED BLOOD CELL (test code = RBC) 3.39 x10 6/uL 4.00-5.60 L HEMOGLOBIN (test code = HGB) 9.2 g/dL 12.5-16.9 L HEMATOCRIT (test code = HCT) 30.6 % 37.5-50.7 L MEAN CELL VOLUME (test code = MCV) 90.3 fL 81.0-99.0 N MEAN CELL HGB (test code = MCH) 27.1 pg 27.0-33.0 N MEAN CELL HGB CONCETRATION (test code = MCHC) 30.1 g/dL 33.0-37. 0 L RED CELL DISTRIBUTION WIDTH CV (test code = RDW) 16.8 % 11.5- 14.5 H RED CELL DISTRIBUTION WIDTH SD (test code = RDW-SD) 54.0 fL 37 .0-54.0 N PLATELET COUNT (test code = PLT) 307 x10 3/uL 150-400 N MEAN PLATELET VOLUME (test code = MPV) 11.0 fL 7.0-9.0 H NEUTROPHIL % (test code = NT%) 70.3 % 56.0-77.0 N IMMATURE GRANULOCYTE % (test code = IG%) 0.8 % 0.0-2.0 N LYMPHOCYTE % (test code = LY%) 15.7 % 14.0-32.0 N MONOCYTE % (test code = MO%) 9.4 % 4.8-9.0 H EOSINOPHIL % (test code = EO%) 3.6 % 0.3-3.7 N BASOPHIL % (test code = BA%) 0.2 % 0.0-2.0 N NUCLEATED RBC % (test code = NRBC%) 0.0 % 0-0 N NEUTROPHIL # (test code = NT#) 8.79 x10 3/uL 2.0-7.6 H IMMATURE GRANULOCYTE # (test code = IG#) 0.10 x10 3/uL 0.00-0.03 H LYMPHOCYTE # (test code = LY#) 1.96 x10 3/uL 1.0-3.8 N MONOCYTE # (test code = MO#) 1.17 x10 3/uL 0.1-0.8 H EOSINOPHIL # (test code = EO#) 0.45 x10 3/uL 0.0-0.2 H BASOPHIL # (test code = BA#) 0.02 x10 3/uL 0.0-0.2 N NUCLEATED RBC # (test code = NRBC#) 0.00 x10 3/uL 0.0-0.1 N MANUAL DIFF REQUIRED (test code = MDIFF) NO [id number] 21:52:00* Test Item Value Reference Range Interpretation Comments GLUBED (test code = GLUBED) 387 MG/DL 70-110 H Performed by certified crusher and blender operator at [facility] [id number] 17:00:00* Test Item Value Reference Range Interpretation Comments GLUBED (test code = GLUBED) 250 MG/DL 70-110 H Performed by certified crusher and blender operator at [facility] - XR CHEST 1 [id number] 15:29:00 FAX: Shalom Lisa I [phone] [place]: St: ADM FAX: Bandar Storm [phone] Name: ELVIA GREGORYBASIL [facility] : 1945 Age/S: 72/M [address] [place] [address] Unit #: [id number] Loc: G.[facility] [place] [address] Phys: Bandar Rausch MD Acct: [id number] Dis Date: Status: ADM IN PHONE #: [phone] Exam Date: 08/26/2018 1524 FAX #: [phone] Reason: Post tap on right EXAMS: CPT CODE: [id number] XR CHEST 1 V 39811 CHEST, SINGLE VIEW HISTORY: Right pleural effusion, [...] William Perez M.D. CC: Shalom Guillermo MD; Bnadar Rausch MD Technologist: Jolie Grier, RT(R), RTT Trnokrd Date/Time/By: 08/26/2018 (1529) : By: Shilpi Orig Print D/T: S: 08/26/2018 (8230) PAGE 1 Signed Report [id number] 11:31:00* Test Item Value Reference Range Interpretation Comments GLUBED (test code = GLUBED) 316 MG/DL 70-110 H Performed by certified crusher and blender operator at [facility] [id number] 08:11:00* Test Item Value Reference Range Interpretation Comments GLUBED (test code = GLUBED) 176 MG/DL 70-110 H Performed by certified crusher and blender operator at [facility] BASIC METABOLIC [id number] 04:40:00* Test Item Value Reference Range Interpretation Comments SODIUM (test code = NA) 138 mEq/L 134-147 N POTASSIUM (test code = K) 3.7 mEq/L 3.4-5.0 N CHLORIDE (test code = CL) 99 mEq/L 100-108 L CARBON DIOXIDE (test code = CO2) 31 mEq/L 21-33 N ANION GAP (test code = GAP) 12 0-20 N GLUCOSE (test code = GLU) 244 mg/dL 70-110 H BLOOD UREA NITROGEN (test code = BUN) 21 mg/dL 7-18 H GLOMERULAR FILTRATION RATE (test code = GFR) 54.3 70-80 L Units of measure = ml/min/1.73 m2 CREATININE (test code = CREAT) 1.3 mg/dL 0.6-1.3 N CALCIUM (test code = CA) 8.7 mg/dL 8.0-10.5 N HEPATIC FUNCTION [id number] 04:40:00* Test Item Value Reference Range Interpretation Comments TOTAL PROTEIN (test code = PROT) 6.5 g/dL 6.4-8.2 N ALBUMIN (test code = ALB) 2.60 g/dL 3.4-5.0 L BILIRUBIN TOTAL (test code = BILT) 0.50 mg/dL 0.0-1.0 N BILIRUBIN DIRECT (test code = BILD) 0.20 MG/DL 0.0-0.30 N BILIRUBIN INDIRECT (test code = BILIND) 0.30 MG/DL SGOT/AST (test code = AST) 19 IUnit/L 15-37 N SGPT/ALT (test code = ALT) 180 IUnit/L 15-65 H ALKALINE PHOSPHATASE TOTAL (test code = ALKP) 78 IUnit/L 20-125 N CBC W/AUTO [id number] 04:22:00* Test Item Value Reference Range Interpretation Comments WHITE BLOOD CELL (test code = WBC) 12.40 x10 3/uL 4.5-11.0 H RED BLOOD CELL (test code = RBC) 3.03 x10 6/uL 4.00-5.60 L HEMOGLOBIN (test code = HGB) 8.4 g/dL 12.5-16.9 L HEMATOCRIT (test code = HCT) 26.9 % 37.5-50.7 L MEAN CELL VOLUME (test code = MCV) 88.8 fL 81.0-99.0 N MEAN CELL HGB (test code = MCH) 27.7 pg 27.0-33.0 N MEAN CELL HGB CONCETRATION (test code = MCHC) 31.2 g/dL 33.0-37. 0 L RED CELL DISTRIBUTION WIDTH CV (test code = RDW) 16.9 % 11.5- 14.5 H RED CELL DISTRIBUTION WIDTH SD (test code = RDW-SD) 53.4 fL 37 .0-54.0 N PLATELET COUNT (test code = PLT) 262 x10 3/uL 150-400 N MEAN PLATELET VOLUME (test code = MPV) 11.2 fL 7.0-9.0 H NEUTROPHIL % (test code = NT%) 73.5 % 56.0-77.0 N IMMATURE GRANULOCYTE % (test code = IG%) 0.7 % 0.0-2.0 N LYMPHOCYTE % (test code = LY%) 12.8 % 14.0-32.0 L MONOCYTE % (test code = MO%) 9.0 % 4.8-9.0 N EOSINOPHIL % (test code = EO%) 3.8 % 0.3-3.7 H BASOPHIL % (test code = BA%) 0.2 % 0.0-2.0 N NUCLEATED RBC % (test code = NRBC%) 0.0 % 0-0 N NEUTROPHIL # (test code = NT#) 9.11 x10 3/uL 2.0-7.6 H IMMATURE GRANULOCYTE # (test code = IG#) 0.09 x10 3/uL 0.00-0.03 H LYMPHOCYTE # (test code = LY#) 1.59 x10 3/uL 1.0-3.8 N MONOCYTE # (test code = MO#) 1.11 x10 3/uL 0.1-0.8 H EOSINOPHIL # (test code = EO#) 0.47 x10 3/uL 0.0-0.2 H BASOPHIL # (test code = BA#) 0.03 x10 3/uL 0.0-0.2 N NUCLEATED RBC # (test code = NRBC#) 0.00 x10 3/uL 0.0-0.1 N MANUAL DIFF REQUIRED (test code = MDIFF) NO [id number] 20:17:00* Test Item Value Reference Range Interpretation Comments GLUBED (test code = GLUBED) 201 MG/DL 70-110 H Performed by certified crusher and blender operator at [facility] [id number] 17:11:00* Test Item Value Reference Range Interpretation Comments GLUBED (test code = GLUBED) 329 MG/DL 70-110 H Performed by certified crusher and blender operator at [facility] [id number] 11:54:00* Test Item Value Reference Range Interpretation Comments GLUBED (test code = GLUBED) 199 MG/DL 70-110 H Performed by certified crusher and blender operator at [facility] [id number] 07:56:00* Test Item Value Reference Range Interpretation Comments GLUBED (test code = GLUBED) 169 MG/DL 70-110 H Performed by certified crusher and blender operator at [facility] BASIC METABOLIC [id number] 04:30:00* Test Item Value Reference Range Interpretation Comments SODIUM (test code = NA) 139 mEq/L 134-147 N POTASSIUM (test code = K) 3.8 mEq/L 3.4-5.0 N CHLORIDE (test code = CL) 101 mEq/L 100-108 N CARBON DIOXIDE (test code = CO2) 34 mEq/L 21-33 H ANION GAP (test code = GAP) 8 0-20 N GLUCOSE (test code = GLU) 219 mg/dL 70-110 H BLOOD UREA NITROGEN (test code = BUN) 17 mg/dL 7-18 N GLOMERULAR FILTRATION RATE (test code = GFR) 59.5 70-80 L Units of measure = ml/min/1.73 m2 CREATININE (test code = CREAT) 1.2 mg/dL 0.6-1.3 N CALCIUM (test code = CA) 8.2 mg/dL 8.0-10.5 N HEPATIC FUNCTION [id number] 04:30:00* Test Item Value Reference Range Interpretation Comments TOTAL PROTEIN (test code = PROT) 5.9 g/dL 6.4-8.2 L ALBUMIN (test code = ALB) 2.50 g/dL 3.4-5.0 L BILIRUBIN TOTAL (test code = BILT) 0.50 mg/dL 0.0-1.0 BILIRUBIN DIRECT (test code = BILD) 0.20 MG/DL 0.0-0.30 BILIRUBIN INDIRECT (test code = BILIND) 0.30 MG/DL SGOT/AST (test code = AST) 25 IUnit/L 15-37 N SGPT/ALT (test code = ALT) 229 IUnit/L 15-65 H ALKALINE PHOSPHATASE TOTAL (test code = ALKP) 82 IUnit/L 20-125 N CBC W/AUTO [id number] 04:05:00* Test Item Value Reference Range Interpretation Comments WHITE BLOOD CELL (test code = WBC) 9.92 x10 3/uL 4.5-11.0 N RED BLOOD CELL (test code = RBC) 2.88 x10 6/uL 4.00-5.60 L HEMOGLOBIN (test code = HGB) 7.8 g/dL 12.5-16.9 L HEMATOCRIT (test code = HCT) 25.7 % 37.5-50.7 L MEAN CELL VOLUME (test code = MCV) 89.2 fL 81.0-99.0 N MEAN CELL HGB (test code = MCH) 27.1 pg 27.0-33.0 N MEAN CELL HGB CONCETRATION (test code = MCHC) 30.4 g/dL 33.0-37. 0 L RED CELL DISTRIBUTION WIDTH CV (test code = RDW) 16.7 % 11.5- 14.5 H RED CELL DISTRIBUTION WIDTH SD (test code = RDW-SD) 53.9 fL 37 .0-54.0 N PLATELET COUNT (test code = PLT) 222 x10 3/uL 150-400 N MEAN PLATELET VOLUME (test code = MPV) 11.1 fL 7.0-9.0 H NEUTROPHIL % (test code = NT%) 70.9 % 56.0-77.0 N IMMATURE GRANULOCYTE % (test code = IG%) 1.2 % 0.0-2.0 N LYMPHOCYTE % (test code = LY%) 14.2 % 14.0-32.0 N MONOCYTE % (test code = MO%) 9.8 % 4.8-9.0 H EOSINOPHIL % (test code = EO%) 3.7 % 0.3-3.7 N BASOPHIL % (test code = BA%) 0.2 % 0.0-2.0 N NUCLEATED RBC % (test code = NRBC%) 0.3 % 0-0 H NEUTROPHIL # (test code = NT#) 7.03 x10 3/uL 2.0-7.6 N IMMATURE GRANULOCYTE # (test code = IG#) 0.12 x10 3/uL 0.00-0.03 H LYMPHOCYTE # (test code = LY#) 1.41 x10 3/uL 1.0-3.8 N MONOCYTE # (test code = MO#) 0.97 x10 3/uL 0.1-0.8 H EOSINOPHIL # (test code = EO#) 0.37 x10 3/uL 0.0-0.2 H BASOPHIL # (test code = BA#) 0.02 x10 3/uL 0.0-0.2 N NUCLEATED RBC # (test code = NRBC#) 0.03 x10 3/uL 0.0-0.1 N MANUAL DIFF REQUIRED (test code = MDIFF) NO [id number] 20:42:00* Test Item Value Reference Range Interpretation Comments GLUBED (test code = GLUBED) 225 MG/DL 70-110 H Performed by certified crusher and blender operator at [facility] [id number] 16:57:00* Test Item Value Reference Range Interpretation Comments GLUBED (test code = GLUBED) 247 MG/DL 70-110 H Performed by certified crusher and blender operator at [facility] ANTINUCLEAR ANTIBODIES [id number] 16:08:00* Test Item Value Reference Range Interpretation Comments COLE SCREEN (test code = ANASCR) Positive () A Negative <1:80 Borderline 1:80 Positive >1:80 ACUTE HEPATITIS [id number] 16:08:00* Test Item Value Reference Range Interpretation Comments AB HEPATITIS A IGM (test code = HAVMAB) NON REACTIVE INDEX NON REAC T. AG HEPATITIS B SURFACE (test code = HBSAG) NON REACTIVE INDEX NonRe active AB HEPATITIS B CORE IGM (test code = HBCMAB) NON REACTIVE INDEX NON REACT. AB HEPATITIS C (test code = HCVAB) NON REACTIVE INDEX NON REACT. ANTINUCLEAR ANTIBODIES [id number] 16:08:00* Test Item Value Reference Range Interpretation Comments COLE SCREEN (test code = ANASCR) Positive () A Negative <1:80 Borderline 1:80 Positive >1:80 COLE HOMOGENEOUS PATTERN (test code = ANAHOM) 1:80 () COLE COMMENT (test code = ANACOM) () A positive COLE result may occur in healthy individuals (lowtiter) or be associated with a variety of diseases. Seeinterpretation chart which is not all inclusive:Pattern Antigen Detected Suggested Disease Association Homogeneous DNA(ds,ss), SLE - High titers Nucleosomes, Histones Drug-induced SLE Speckled Sm, MEDICAL CASE MANAGER, SCL-70, SLE,MCTD,PSS (diffuse form), SS-A/SS-B Sjogrens Nucleolar SCL-70, PM-1/SCL High titers Scleroderma, PM/DM Centromere Centromere PSS (limited form) w/Crest syndrome variable Nuclear Dot Sp100,x60-hmlegm Primary Biliary Cirrhosis Nuclear GP210, Primary Biliary CirrhosisMembrane mana A,B,C Performed At: [facility] [id number] Cortes Germain MD Ph:[phone] reported result: Edited by: SUSAN on 08/24/18:498478 1608: COLE COMMENT previously reported as: ACUTE HEPATITIS [id number] 16:08:00* Test Item Value Reference Range Interpretation Comments AB HEPATITIS A IGM (test code = HAVMAB) NON REACTIVE INDEX NON REAC T. AG HEPATITIS B SURFACE (test code = HBSAG) NON REACTIVE INDEX NonRe active AB HEPATITIS B CORE IGM (test code = HBCMAB) NON REACTIVE INDEX NON REACT. AB HEPATITIS C (test code = HCVAB) NON REACTIVE INDEX NON REACT. [id number] 12:08:00* Test Item Value Reference Range Interpretation Comments GLUBED (test code = GLUBED) 304 MG/DL 70-110 H Performed by certified crusher and blender operator at [facility] [id number] 08:37:00* Test Item Value Reference Range Interpretation Comments GLUBED (test code = GLUBED) 147 MG/DL 70-110 H Performed by certified crusher and blender operator at [facility] BASIC METABOLIC [id number] 05:38:00* Test Item Value Reference Range Interpretation Comments SODIUM (test code = NA) 138 mEq/L 134-147 N POTASSIUM (test code = K) 3.5 mEq/L 3.4-5.0 N CHLORIDE (test code = CL) 101 mEq/L 100-108 N CARBON DIOXIDE (test code = CO2) 32 mEq/L 21-33 N ANION GAP (test code = GAP) 9 0-20 N GLUCOSE (test code = GLU) 175 mg/dL 70-110 H BLOOD UREA NITROGEN (test code = BUN) 17 mg/dL 7-18 N GLOMERULAR FILTRATION RATE (test code = GFR) 73.5 70-80 N Units of measure = ml/min/1.73 m2 CREATININE (test code = CREAT) 1.0 mg/dL 0.6-1.3 N CALCIUM (test code = CA) 7.8 mg/dL 8.0-10.5 L HEPATIC FUNCTION [id number] 05:38:00* Test Item Value Reference Range Interpretation Comments TOTAL PROTEIN (test code = PROT) 5.8 g/dL 6.4-8.2 L ALBUMIN (test code = ALB) 2.60 g/dL 3.4-5.0 L BILIRUBIN TOTAL (test code = BILT) 0.70 mg/dL 0.0-1.0 N BILIRUBIN DIRECT (test code = BILD) 0.30 MG/DL 0.0-0.30 N BILIRUBIN INDIRECT (test code = BILIND) 0.40 MG/DL SGOT/AST (test code = AST) 34 IUnit/L 15-37 N SGPT/ALT (test code = ALT) 330 IUnit/L 15-65 H ALKALINE PHOSPHATASE TOTAL (test code = ALKP) 86 IUnit/L 20-125 N PROTHROMBIN [id number] 05:26:00* Test Item Value Reference Range Interpretation Comments PROTHROMBIN TIME PATIENT (test code = PTP) 13.9 SECONDS 9.3-12.9 H INTERNATIONAL NORMAL RATIO (test code = INR) 1.3 0.8-1.2 H TARGET INR BY INDICATION Indication INR1. Prophylaxis [...] Infarction (to prevent recurrent infarct). THROMBOPLASTIN TIME [id number] 05:26:00* Test Item Value Reference Range Interpretation Comments THROMBOPLASTIN TIME PARTIAL (test code = PTT) 25.8 Seconds 25.0-39. 5 N Therapeutic Range: 61.8-83.8 Sec Effective 08/27/2013 CBC W/AUTO [id number] 05:09:00* Test Item Value Reference Range Interpretation Comments WHITE BLOOD CELL (test code = WBC) 9.92 x10 3/uL 4.5-11.0 N RED BLOOD CELL (test code = RBC) 2.98 x10 6/uL 4.00-5.60 L HEMOGLOBIN (test code = HGB) 8.1 g/dL 12.5-16.9 L HEMATOCRIT (test code = HCT) 26.9 % 37.5-50.7 L MEAN CELL VOLUME (test code = MCV) 90.3 fL 81.0-99.0 N MEAN CELL HGB (test code = MCH) 27.2 pg 27.0-33.0 N MEAN CELL HGB CONCETRATION (test code = MCHC) 30.1 g/dL 33.0-37. 0 L RED CELL DISTRIBUTION WIDTH CV (test code = RDW) 16.7 % 11.5- 14.5 H RED CELL DISTRIBUTION WIDTH SD (test code = RDW-SD) 54.1 fL 37 .0-54.0 H PLATELET COUNT (test code = PLT) 222 x10 3/uL 150-400 N MEAN PLATELET VOLUME (test code = MPV) 11.4 fL 7.0-9.0 H NEUTROPHIL % (test code = NT%) 73.4 % 56.0-77.0 N IMMATURE GRANULOCYTE % (test code = IG%) 1.6 % 0.0-2.0 N LYMPHOCYTE % (test code = LY%) 12.6 % 14.0-32.0 L MONOCYTE % (test code = MO%) 10.0 % 4.8-9.0 H EOSINOPHIL % (test code = EO%) 2.3 % 0.3-3.7 N BASOPHIL % (test code = BA%) 0.1 % 0.0-2.0 N NUCLEATED RBC % (test code = NRBC%) 0.7 % 0-0 H NEUTROPHIL # (test code = NT#) 7.28 x10 3/uL 2.0-7.6 N IMMATURE GRANULOCYTE # (test code = IG#) 0.16 x10 3/uL 0.00-0.03 H LYMPHOCYTE # (test code = LY#) 1.25 x10 3/uL 1.0-3.8 N MONOCYTE # (test code = MO#) 0.99 x10 3/uL 0.1-0.8 H EOSINOPHIL # (test code = EO#) 0.23 x10 3/uL 0.0-0.2 H BASOPHIL # (test code = BA#) 0.01 x10 3/uL 0.0-0.2 N NUCLEATED RBC # (test code = NRBC#) 0.07 x10 3/uL 0.0-0.1 N MANUAL DIFF REQUIRED (test code = MDIFF) NO [id number] 19:53:00* Test Item Value Reference Range Interpretation Comments GLUBED (test code = GLUBED) 324 MG/DL 70-110 H Performed by certified crusher and blender operator at [facility] [id number] 16:34:00* Test Item Value Reference Range Interpretation Comments GLUBED (test code = GLUBED) 233 MG/DL 70-110 H Performed by certified crusher and blender operator at [facility] [id number] 13:28:00* Test Item Value Reference Range Interpretation Comments GLUBED (test code = GLUBED) 222 MG/DL 70-110 H Performed by certified crusher and blender operator at [facility] [id number] 08:23:00* Test Item Value Reference Range Interpretation Comments GLUBED (test code = GLUBED) 152 MG/DL 70-110 H Performed by certified crusher and blender operator at [facility] BASIC METABOLIC [id number] 07:39:00* Test Item Value Reference Range Interpretation Comments SODIUM (test code = NA) 137 mEq/L 134-147 N POTASSIUM (test code = K) 4.0 mEq/L 3.4-5.0 N CHLORIDE (test code = CL) 102 mEq/L 100-108 N CARBON DIOXIDE (test code = CO2) 30 mEq/L 21-33 N ANION GAP (test code = GAP) 9 0-20 N GLUCOSE (test code = GLU) 151 mg/dL 70-110 H BLOOD UREA NITROGEN (test code = BUN) 22 mg/dL 7-18 H GLOMERULAR FILTRATION RATE (test code = GFR) 73.5 70-80 N Units of measure = ml/min/1.73 m2 CREATININE (test code = CREAT) 1.0 mg/dL 0.6-1.3 N CALCIUM (test code = CA) 7.9 mg/dL 8.0-10.5 L HEPATIC FUNCTION [id number] 07:39:00* Test Item Value Reference Range Interpretation Comments TOTAL PROTEIN (test code = PROT) 5.8 g/dL 6.4-8.2 L ALBUMIN (test code = ALB) 2.60 g/dL 3.4-5.0 L BILIRUBIN TOTAL (test code = BILT) 0.80 mg/dL 0.0-1.0 N BILIRUBIN DIRECT (test code = BILD) 0.30 MG/DL 0.0-0.30 N BILIRUBIN INDIRECT (test code = BILIND) 0.50 MG/DL SGOT/AST (test code = AST) 51 IUnit/L 15-37 H SGPT/ALT (test code = ALT) 475 IUnit/L 15-65 H ALKALINE PHOSPHATASE TOTAL (test code = ALKP) 102 IUnit/L 20-125 N [id number] 07:39:00* Test Item Value Reference Range Interpretation Comments MAGNESIUM (test code = MAG) 2.30 mg/dL 1.8-2.4 N CBC W/AUTO [id number] 07:39:00* Test Item Value Reference Range Interpretation Comments WHITE BLOOD CELL (test code = WBC) 11.09 x10 3/uL 4.5-11.0 H RED BLOOD CELL (test code = RBC) 2.92 x10 6/uL 4.00-5.60 L HEMOGLOBIN (test code = HGB) 8.0 g/dL 12.5-16.9 L HEMATOCRIT (test code = HCT) 26.3 % 37.5-50.7 L MEAN CELL VOLUME (test code = MCV) 90.1 fL 81.0-99.0 N MEAN CELL HGB (test code = MCH) 27.4 pg 27.0-33.0 N MEAN CELL HGB CONCETRATION (test code = MCHC) 30.4 g/dL 33.0-37. 0 L RED CELL DISTRIBUTION WIDTH CV (test code = RDW) 17.0 % 11.5- 14.5 H RED CELL DISTRIBUTION WIDTH SD (test code = RDW-SD) 53.5 fL 37 .0-54.0 N PLATELET COUNT (test code = PLT) 192 x10 3/uL 150-400 N MEAN PLATELET VOLUME (test code = MPV) 11.7 fL 7.0-9.0 H NEUTROPHIL % (test code = NT%) 76.8 % 56.0-77.0 N IMMATURE GRANULOCYTE % (test code = IG%) 2.1 % 0.0-2.0 H LYMPHOCYTE % (test code = LY%) 10.9 % 14.0-32.0 L MONOCYTE % (test code = MO%) 8.1 % 4.8-9.0 N EOSINOPHIL % (test code = EO%) 1.9 % 0.3-3.7 N BASOPHIL % (test code = BA%) 0.2 % 0.0-2.0 N NUCLEATED RBC % (test code = NRBC%) 1.4 % 0-0 H NEUTROPHIL # (test code = NT#) 8.52 x10 3/uL 2.0-7.6 H IMMATURE GRANULOCYTE # (test code = IG#) 0.23 x10 3/uL 0.00-0.03 H LYMPHOCYTE # (test code = LY#) 1.21 x10 3/uL 1.0-3.8 N MONOCYTE # (test code = MO#) 0.90 x10 3/uL 0.1-0.8 H EOSINOPHIL # (test code = EO#) 0.21 x10 3/uL 0.0-0.2 H BASOPHIL # (test code = BA#) 0.02 x10 3/uL 0.0-0.2 N NUCLEATED RBC # (test code = NRBC#) 0.15 x10 3/uL 0.0-0.1 H MANUAL DIFF REQUIRED (test code = MDIFF) NO [id number] 22:47:00* Test Item Value Reference Range Interpretation Comments GLUBED (test code = GLUBED) 225 MG/DL 70-110 H Performed by certified crusher and blender operator at [facility] - CT CHEST W/O [id number] 18:42:00 Name: TORI GREGORY [facility] : 1945 Age/S: 72 / M [address] [place] [address] Blvd Unit #: [id number] Loc: [place] [address] Phys: Mary Jo Evans MALT HOUSE OPERATOR Acct: [id number] Dis Date: Status: ADM IN PHONE #: [phone] Exam Date: 08/22/2018 1752 FAX #: [phone] Reason: EVAL FOR DEGREE OF EVAL. OF PLEURAL EFFUSION EXAMS: CPT CODE: [id number] CT CHEST W/O CONTRAST 18186 PROCEDURE: CT CHEST WITHOUT CONTRAST INDICATION: 72 [...] bibasilar co mpressive atelectasis versus infiltrate. SL: STEVIE PAGE 1 Signed Report (CONTINUED) Name: TORI LAUREN [facility] : 1945 Age/S: 72 / M [address] [place] [address] Blvd Unit #: [id number] L oc: [place] [address] Phys: Mary Jo Evans NP Acct: [id number] Dis Date: Status: ADM IN PHONE #: [phone] Exam Date: 08/22/20181757 FAX #: [phone] [place] son: EVAL FOR DEGREE OF EVAL. OF PLEURAL EFFUSION EXAMS: CPT CODE: [id number] CT CHEST W/O CONTRAST 04506 <Continued> at 1842 Reported and signed by: Ben Adhikari M.D. CC: Mary Jo Evans NP; Shalom Guillermo MD Technologist:Marito Gordon, (R)(CT) CTDI: DLP: Trnscb Date/Time: 08/22/2018 (1841) [email or web address] Orig Print D/T: S: 08/22/2018 (1844) CTDI: DLP: PAGE 2 Signed Report [id number] 17:09:00* Test Item Value Reference Range Interpretation Comments GLUBED (test code = GLUBED) 236 MG/DL 70-110 H Performed by certified crusher and blender operator at [facility] [id number] 11:44:00* Test Item Value Reference Range Interpretation Comments GLUBED (test code = GLUBED) 238 MG/DL 70-110 H Performed by certified crusher and blender operator at [facility] [id number] 11:35:00* Test Item Value Reference Range Interpretation Comments GLUBED (test code = GLUBED) 186 MG/DL 70-110 H Performed by certified crusher and blender operator at [facility] - US ABDOMEN [id number] 09:19:00 Name: TORI GREGORY [facility] : 1945 Age/S: 72 / M [address] [place] [address] Unit #: [id number] Loc: [place] [address] Phys: Sundar Ji Acct: [id number] Dis Date: Status: ADM IN PHONE #: [phone] Exam Date: 08/22/2018 0846 FAX #: [phone] Reason: elevated LFTs EXAMS: CPT CODE: [id number] ABDOMEN LTD 59179 PROCEDURE: ABDOMINAL ULTRASOUND INDICATION: 72-year-old male with [...] bowel gas. 4. Right pleural effusion. SL: [id number] at 0919 Reported and signed by: Nallely Sunshine M.D. PAGE 1 Signed Report (CONTINUED) Name: TORI GREGORY [facility] : 1945 Age/S: 72 / M [address] [place] [address] Unit #: [id number] Loc: [place] [address] Phys: Sundar JiP Acct: [id number] Dis Date: Status: ADM IN PHONE #: [phone] Exam Date: 08/22/2018 0846 FAX #: [phone] Reason: elevated LFTs EXAMS: CPT CODE: [id number] US ABDOMEN LTD 41012 <Continued> CC: Sundar Ji; Shalom Guillermo MD Technologist: Velia Maza RDMS(A)(OB) Trnscb Date/Time: 08/22/2018 (918) [email or web address] Orig Print D/T: S: 08/22/2018 (921) Probe: PAGE 2 Signed Report HEPATIC FUNCTION PANEL 2018-08-22 08:53:00* Test Item Value Reference Range Interpretation Comments TOTAL PROTEIN (test code = PROT) 5.8 g/dL 6.4-8.2 L ALBUMIN (test code = ALB) 2.80 g/dL 3.4-5.0 L BILIRUBIN TOTAL (test code = BILT) 0.80 mg/dL 0.0-1.0 N BILIRUBIN DIRECT (test code = BILD) 0.30 MG/DL 0.0-0.30 BILIRUBIN INDIRECT (test code = BILIND) 0.50 MG/DL SGOT/AST (test code = AST) 109 IUnit/L 15-37 H SGPT/ALT (test code = ALT) 725 IUnit/L 15-65 H ALKALINE PHOSPHATASE TOTAL (test code = ALKP) 113 IUnit/L 20-125 N - XR CHEST 1 [id number] 07:31:00 FAX: Shalom Lisa I [phone] [place]: St: ADM FAX: Candie Reinoso (C Name: TORI GREGORY [facility] : 1945 Age/S: 72/M [address] [place] [address] Unit #: [id number] Loc: [address] [place] [address] Phys: Candie Reinoso NP (Christy) Acct: [id number] Dis Date: Status: ADM IN PHONE #: [phone] Exam Date: 08/22/2018 0553 FAX #: [phone] Reason: Cardiac Surgery Post Op EXAMS: CPT CODE: [id number] XR CHEST 1 V 57230 - XR CHEST 1 V 08/22/2018 5:00 [...] Kuhn, RT(R); Maine Dash RT(R) Trnscrd Date/Time/By: 08/22/2018 (0731) : By: [email or web address] [facility] Print D/T: S: 08/22/2018 (0734) PAGE 1 Signed Report CBC W/AUTO [id number] 05:16:00* Test Item Value Reference Range Interpretation Comments WHITE BLOOD CELL (test code = WBC) 14.57 x10 3/uL 4.5-11.0 H RED BLOOD CELL (test code = RBC) 2.86 x10 6/uL 4.00-5.60 L HEMOGLOBIN (test code = HGB) 7.9 g/dL 12.5-16.9 L HEMATOCRIT (test code = HCT) 25.2 % 37.5-50.7 L MEAN CELL VOLUME (test code = MCV) 88.1 fL 81.0-99.0 N MEAN CELL HGB (test code = MCH) 27.6 pg 27.0-33.0 N MEAN CELL HGB CONCETRATION (test code = MCHC) 31.3 g/dL 33.0-37. 0 L RED CELL DISTRIBUTION WIDTH CV (test code = RDW) 16.4 % 11.5- 14.5 H RED CELL DISTRIBUTION WIDTH SD (test code = RDW-SD) 51.2 fL 37 .0-54.0 N PLATELET COUNT (test code = PLT) 178 x10 3/uL 150-400 N MEAN PLATELET VOLUME (test code = MPV) 11.7 fL 7.0-9.0 H NEUTROPHIL % (test code = NT%) 74.6 % 56.0-77.0 N IMMATURE GRANULOCYTE % (test code = IG%) 2.5 % 0.0-2.0 H LYMPHOCYTE % (test code = LY%) 12.0 % 14.0-32.0 L MONOCYTE % (test code = MO%) 9.3 % 4.8-9.0 H EOSINOPHIL % (test code = EO%) 1.5 % 0.3-3.7 N BASOPHIL % (test code = BA%) 0.1 % 0.0-2.0 N NUCLEATED RBC % (test code = NRBC%) 2.1 % 0-0 H NEUTROPHIL # (test code = NT#) 10.85 x10 3/uL 2.0-7.6 H IMMATURE GRANULOCYTE # (test code = IG#) 0.37 x10 3/uL 0.00-0.03 H LYMPHOCYTE # (test code = LY#) 1.75 x10 3/uL 1.0-3.8 N MONOCYTE # (test code = MO#) 1.36 x10 3/uL 0.1-0.8 H EOSINOPHIL # (test code = EO#) 0.22 x10 3/uL 0.0-0.2 H BASOPHIL # (test code = BA#) 0.02 x10 3/uL 0.0-0.2 N NUCLEATED RBC # (test code = NRBC#) 0.31 x10 3/uL 0.0-0.1 H MANUAL DIFF REQUIRED (test code = MDIFF) NO COMMENTS: Daily while on HeparinCOMPREHENSIVE METABOLIC [id number] 05:16:00 * Test Item Value Reference Range Interpretation Comments SODIUM (test code = NA) 136 mEq/L 134-147 N POTASSIUM (test code = K) 4.3 mEq/L 3.4-5.0 N CHLORIDE (test code = CL) 102 mEq/L 100-108 N CARBON DIOXIDE (test code = CO2) 29 mEq/L 21-33 N ANION GAP (test code = GAP) 9 0-20 N GLUCOSE (test code = GLU) 166 mg/dL 70-110 H BLOOD UREA NITROGEN (test code = BUN) 26 mg/dL 7-18 H GLOMERULAR FILTRATION RATE (test code = GFR) 65.8 70-80 L Units of measure = ml/min/1.73 m2 CREATININE (test code = CREAT) 1.1 mg/dL 0.6-1.3 N TOTAL PROTEIN (test code = PROT) 5.8 g/dL 6.4-8.2 L ALBUMIN (test code = ALB) 2.80 g/dL 3.4-5.0 L CALCIUM (test code = CA) 7.8 mg/dL 8.0-10.5 L BILIRUBIN TOTAL (test code = BILT) 0.80 mg/dL 0.0-1.0 N SGOT/AST (test code = AST) 110 IUnit/L 15-37 H SGPT/ALT (test code = ALT) 709 IUnit/L 15-65 H ALKALINE PHOSPHATASE TOTAL (test code = ALKP) 111 IUnit/L 20-125 N [id number] 05:16:00* Test Item Value Reference Range Interpretation Comments MAGNESIUM (test code = MAG) 2.40 mg/dL 1.8-2.4 N [id number] 21:08:00* Test Item Value Reference Range Interpretation Comments GLUBED (test code = GLUBED) 200 MG/DL 70-110 H Performed by certified crusher and blender operator at [facility] [id number] 18:41:00* Test Item Value Reference Range Interpretation Comments GLUBED (test code = GLUBED) 269 MG/DL 70-110 H Performed by certified crusher and blender operator at [facility] ANTINUCLEAR ANTIBODIES [id number] 15:18:00* Test Item Value Reference Range Interpretation Comments COLE SCREEN (test code = ANASCR) ACUTE HEPATITIS [id number] 15:18:00* Test Item Value Reference Range Interpretation Comments AB HEPATITIS A IGM (test code = HAVMAB) NON REACTIVE INDEX NON REAC T. AG HEPATITIS B SURFACE (test code = HBSAG) NON REACTIVE INDEX NonRe active AB HEPATITIS B CORE IGM (test code = HBCMAB) NON REACTIVE INDEX NON REACT. AB HEPATITIS C (test code = HCVAB) NON REACTIVE INDEX NON REACT. ANTINUCLEAR ANTIBODIES [id number] 15:16:00* Test Item Value Reference Range Interpretation Comments COLE SCREEN (test code = ANASCR) ACUTE HEPATITIS [id number] 15:16:00* Test Item Value Reference Range Interpretation Comments AB HEPATITIS A IGM (test code = HAVMAB) INDEX NON REACT. AG HEPATITIS B SURFACE (test code = HBSAG) NON REACTIVE INDEX NonRe active AB HEPATITIS B CORE IGM (test code = HBCMAB) NON REACTIVE INDEX NON REACT. AB HEPATITIS C (test code = HCVAB) NON REACTIVE INDEX NON REACT. ANTINUCLEAR ANTIBODIES [id number] 15:15:00* Test Item Value Reference Range Interpretation Comments COLE SCREEN (test code = ANASCR) ACUTE HEPATITIS [id number] 15:15:00* Test Item Value Reference Range Interpretation Comments AB HEPATITIS A IGM (test code = HAVMAB) INDEX NON REACT. AG HEPATITIS B SURFACE (test code = HBSAG) NON REACTIVE INDEX NonRe active AB HEPATITIS B CORE IGM (test code = HBCMAB) INDEX NON REACT . AB HEPATITIS C (test code = HCVAB) NON REACTIVE INDEX NON REACT. ANTINUCLEAR ANTIBODIES [id number] 14:54:00* Test Item Value Reference Range Interpretation Comments COLE SCREEN (test code = ANASCR) ACUTE HEPATITIS [id number] 14:54:00* Test Item Value Reference Range Interpretation Comments AB HEPATITIS A IGM (test code = HAVMAB) INDEX NON REACT. AG HEPATITIS B SURFACE (test code = HBSAG) NON REACTIVE INDEX NonRe active AB HEPATITIS B CORE IGM (test code = HBCMAB) INDEX NON REACT . AB HEPATITIS C (test code = HCVAB) INDEX NON REACT. [id number] 14:24:00* Test Item Value Reference Range Interpretation Comments ACETAMINOPHEN (test code = ACET) < 2 ug/mL 10-30 L - CT ABD PELVIS W/O [id number] 13:28:00 Name: TORI GREGORY [facility] : 1945 Age/S: 72 / M [address] [place] [address] Blvd Unit #: [id number] Loc: [place] [address] Phys: Mary Jo Evans [employer] OPERATOR Acct: [id number] Dis Date: Status: ADM IN PHONE #: [phone] Exam Date: 08/21/2018 1235 FAX #: [phone] Reason: elevated lft and abd pain EXAMS: CPT CODE: [id number] CT ABD PELVIS W/O CONT [id number] EXAM: CT ABDOMEN/PELVIS WITHOUT CONTRAST HISTORY: 72 [...] repair. PAGE 1 Signed Report (CONTINUED) Name: TRIPLETT TORI DELGADO [facility] : 1945 Age/ S: 72 / M [address] [place] [address] Blvd Unit #: [id number] Loc: [place] [address] Phys: Mary Jo Evans NP Acct: [id number] Dis Date: Status: ADM IN PHONE #: [phone] Exam Date: 08/21/2018 1235 FAX #: [phone] Reason: elevated lft and abd pain EXAMS: CPT CODE: [id number] CT ABD PELVIS W/O CONT 45314 <Continued> RETROPERITONEUM: The aorta is normal in [...] fat-containing left inguinal hernia. 5. Prostatomegaly. SL: [id number] at 1328 Reported and signed by: Nallely Sunshine M.D. CC: Mary Jo Evans MALT HOUSE OPERATOR; Shalom Guillermo MD Technologist:Omero Weir, RT(R) CTDI: DLP: Trnscb Date/Time: 08/21/2018 (1328) [email or web address] Orig Print D/T: S: 08/21/2018 (2431) CTDI: DLP: PAGE 2 Signed Report HEPATIC FUNCTION [id number] 10:44:00* Test Item Value Reference Range Interpretation Comments TOTAL PROTEIN (test code = PROT) 5.9 g/dL 6.4-8.2 L ALBUMIN (test code = ALB) 3.20 g/dL 3.4-5.0 L BILIRUBIN TOTAL (test code = BILT) 1.00 mg/dL 0.0-1.0 N BILIRUBIN DIRECT (test code = BILD) 0.50 MG/DL 0.0-0.30 H BILIRUBIN INDIRECT (test code = BILIND) 0.50 MG/DL SGOT/AST (test code = AST) 349 IUnit/L 15-37 H SGPT/ALT (test code = ALT) 1082 IUnit/L 15-65 H ALKALINE PHOSPHATASE TOTAL (test code = ALKP) 131 IUnit/L 20-125 H [id number] 09:10:00* Test Item Value Reference Range Interpretation Comments GLUBED (test code = GLUBED) 228 MG/DL 70-110 H Performed by certified crusher and blender operator at [facility] - XR CHEST 1 [id number] 07:37:00 FAX: Shalom Lisa I [phone] [place]: St: ADM FAX: Candie Reinoso Name: TORI GREGORY [facility] : 1945 Age/S: 72/M [address] [place] [address] Unit #: [id number] Loc: G.3362 [place] [address] Phys: Candie Reinoso NP (Christy) Acct: [id number] Dis Date: Status: ADM IN PHONE #: [phone] Exam Date: 08/21/2018 05 FAX #: [phone] Reason: Cardiac Surgery Post Op EXAMS: CPT CODE: [id number] XR CHEST 1 V 45602 - XR CHEST 1 V 08/21/2018 5:00 [...] not definitively seen, may be outside the [id number] or removed. 2. Bilateral moderate layering pleural effusions with bibasilar hazy densities. 3. Ca rdiomegaly. SL: CY-H * * at 0737 Reported and signed by: Ben Mendoza M.D. CC: Shalom Guillermo MD; Marcell Reinoso NP (Christy) Technologist: Milton Kuhn, RT(R); Dilcia chua RT(R) Trnscrd Date/Time/By: 08/21/2018 (0737) : By: [email or web address] Orig Print D/T: S: 08/21/2018 (0741) PAGE 1 Signed Report BASIC METABOLIC [id number] 04:39:00* Test Item Value Reference Range Interpretation Comments SODIUM (test code = NA) 132 mEq/L 134-147 L POTASSIUM (test code = K) 4.7 mEq/L 3.4-5.0 N CHLORIDE (test code = CL) 100 mEq/L 100-108 N CARBON DIOXIDE (test code = CO2) 25 mEq/L 21-33 N ANION GAP (test code = GAP) 12 0-20 N GLUCOSE (test code = GLU) 207 mg/dL 70-110 H BLOOD UREA NITROGEN (test code = BUN) 29 mg/dL 7-18 H GLOMERULAR FILTRATION RATE (test code = GFR) 59.5 70-80 L Units of measure = ml/min/1.73 m2 CREATININE (test code = CREAT) 1.2 mg/dL 0.6-1.3 N CALCIUM (test code = CA) 7.4 mg/dL 8.0-10.5 L [id number] 04:39:00* Test Item Value Reference Range Interpretation Comments MAGNESIUM (test code = MAG) 2.70 mg/dL 1.8-2.4 H CBC W/AUTO [id number] 04:19:00* Test Item Value Reference Range Interpretation Comments WHITE BLOOD CELL (test code = WBC) 16.41 x10 3/uL 4.5-11.0 H RED BLOOD CELL (test code = RBC) 2.76 x10 6/uL 4.00-5.60 L HEMOGLOBIN (test code = HGB) 7.8 g/dL 12.5-16.9 L HEMATOCRIT (test code = HCT) 24.4 % 37.5-50.7 L MEAN CELL VOLUME (test code = MCV) 88.4 fL 81.0-99.0 N MEAN CELL HGB (test code = MCH) 28.3 pg 27.0-33.0 N MEAN CELL HGB CONCETRATION (test code = MCHC) 32.0 g/dL 33.0-37. 0 L RED CELL DISTRIBUTION WIDTH CV (test code = RDW) 16.0 % 11.5- 14.5 H RED CELL DISTRIBUTION WIDTH SD (test code = RDW-SD) 51.2 fL 37 .0-54.0 N PLATELET COUNT (test code = PLT) 131 x10 3/uL 150-400 L MEAN PLATELET VOLUME (test code = MPV) 12.6 fL 7.0-9.0 H NEUTROPHIL % (test code = NT%) 76.0 % 56.0-77.0 N IMMATURE GRANULOCYTE % (test code = IG%) 2.6 % 0.0-2.0 H LYMPHOCYTE % (test code = LY%) 9.3 % 14.0-32.0 L MONOCYTE % (test code = MO%) 11.4 % 4.8-9.0 H EOSINOPHIL % (test code = EO%) 0.5 % 0.3-3.7 N BASOPHIL % (test code = BA%) 0.2 % 0.0-2.0 N NUCLEATED RBC % (test code = NRBC%) 3.3 % 0-0 H NEUTROPHIL # (test code = NT#) 12.48 x10 3/uL 2.0-7.6 H IMMATURE GRANULOCYTE # (test code = IG#) 0.43 x10 3/uL 0.00-0.03 H LYMPHOCYTE # (test code = LY#) 1.52 x10 3/uL 1.0-3.8 N MONOCYTE # (test code = MO#) 1.87 x10 3/uL 0.1-0.8 H EOSINOPHIL # (test code = EO#) 0.08 x10 3/uL 0.0-0.2 N BASOPHIL # (test code = BA#) 0.03 x10 3/uL 0.0-0.2 N NUCLEATED RBC # (test code = NRBC#) 0.54 x10 3/uL 0.0-0.1 H MANUAL DIFF REQUIRED (test code = MDIFF) NO COMMENTS: Daily while on HeparinURINALYSIS [id number] 01:22:00* Test Item Value Reference Range Interpretation Comments UA COLOR (test code = COLU) YELLOW YEL/STRAW UA APPEARANCE (test code = APPU) SL CLOUDY CLEAR UA GLUCOSE DIPSTICK (test code = DGLUU) NEGATIVE NEGATIVE UA BILIRUBIN DIPSTICK (test code = BILU) NEGATIVE NEGATIVE UA KETONE DIPSTICK (test code = KETU) NEGATIVE NEGATIVE UA SPECIFIC GRAVITY (test code = SGU) 1.019 1.005-1.030 N UA BLOOD DIPSTICK (test code = BO) 1+ NEGATIVE A UA PH DIPSTICK (test code = MARIBEL) 5.0 5.0-7.0 N UA PROTEIN DIPSTICK (test code = PROU) NEGATIVE NEGATIVE UA UROBILINIOGEN DIPSTICK (test code = URO) 2.0 mg/dL 0.2-1.0 A UA NITRITE DIPSTICK (test code = JAMEEL) NEGATIVE NEGATIVE UA LEUKOCYTE ESTERASE DIPSTICK (test code = LEUU) TRACE NEGA TIVE A UA WBC (test code = WBCU) 4-9 WBC/HPF 0-3 A UA RBC (test code = RBCU) 11-20 RBC/HPF 0-3 UA BACTERIA (test code = BACU) TRACE /HPF NONE SEEN UA SQUAMOUS CELLS (test code = SQU) 0-5 /HPF NONE SEEN UA HYALINE CAST (test code = HYALU) 11-20 /LPF NONE SEEN UA MUCUS (test code = MUCU) 1+ /LPF NONE SEEN UA CULT [id number] 01:22:00* Test Item Value Reference Range Interpretation Comments UA CULTURE NEEDED? (test code = UACULT) NO, WBC<10 Criteria Culture Chk Criteria not met, Urine Culture cancelled. COMPREHENSIVE METABOLIC [id number] 00:42:00* Test Item Value Reference Range Interpretation Comments SODIUM (test code = NA) 132 mEq/L 134-147 L POTASSIUM (test code = K) 4.6 mEq/L 3.4-5.0 N CHLORIDE (test code = CL) 100 mEq/L 100-108 N CARBON DIOXIDE (test code = CO2) 25 mEq/L 21-33 N ANION GAP (test code = GAP) 12 0-20 N GLUCOSE (test code = GLU) 236 mg/dL 70-110 H BLOOD UREA NITROGEN (test code = BUN) 28 mg/dL 7-18 H GLOMERULAR FILTRATION RATE (test code = GFR) 54.3 70-80 L Units of measure = ml/min/1.73 m2 CREATININE (test code = CREAT) 1.3 mg/dL 0.6-1.3 TOTAL PROTEIN (test code = PROT) 6.0 g/dL 6.4-8.2 L ALBUMIN (test code = ALB) 3.10 g/dL 3.4-5.0 L CALCIUM (test code = CA) 7.4 mg/dL 8.0-10.5 L BILIRUBIN TOTAL (test code = BILT) 0.90 mg/dL 0.0-1.0 N SGOT/AST (test code = AST) 346 IUnit/L 15-37 H SGPT/ALT (test code = ALT) 1078 IUnit/L 15-65 H ALKALINE PHOSPHATASE TOTAL (test code = ALKP) 133 IUnit/L 20-125 H ARTERIAL BLOOD [id number] 00:19:00* Test Item Value Reference Range Interpretation Comments ARTERIAL BLOOD GAS PH (test code = PHA) 7.505 7.35-7.45 H ARTERIAL BLOOD GAS PCO2 (test code = PCO2A) 26.8 mmHg 35-45 L ARTERIAL BLOOD GAS PO2 (test code = PO2A) 61 mmHg 80-100 L BICARBONATE TOTAL HCO3 (test code = HCO3) 21.1 mmol/L 22.0-26.0 L BASE EXCESS (test code = MASHA) -2.0 mmol/L -4-4 N ABG O2 SATURATION (test code = SATA) 94 % 90-100 N ABG DELIVERY (test code = HOLLAND) Room Air Performed by certified crusher and blender operator at [facility] ABG TEMPERATURE (test code = TEMPA) 98.6 F ABG SITE (test code = SITEA) R Rad TCO2 ARTERIAL (test code = TCO2A) 22 CBC W/AUTO [id number] 00:14:00* Test Item Value Reference Range Interpretation Comments WHITE BLOOD CELL (test code = WBC) 14.95 x10 3/uL 4.5-11.0 H RED BLOOD CELL (test code = RBC) 2.75 x10 6/uL 4.00-5.60 L HEMOGLOBIN (test code = HGB) 7.6 g/dL 12.5-16.9 L HEMATOCRIT (test code = HCT) 24.6 % 37.5-50.7 L MEAN CELL VOLUME (test code = MCV) 89.5 fL 81.0-99.0 N MEAN CELL HGB (test code = MCH) 27.6 pg 27.0-33.0 N MEAN CELL HGB CONCETRATION (test code = MCHC) 30.9 g/dL 33.0-37. 0 L RED CELL DISTRIBUTION WIDTH CV (test code = RDW) 16.0 % 11.5- 14.5 H RED CELL DISTRIBUTION WIDTH SD (test code = RDW-SD) 51.5 fL 37 .0-54.0 N PLATELET COUNT (test code = PLT) 135 x10 3/uL 150-400 L MEAN PLATELET VOLUME (test code = MPV) 12.2 fL 7.0-9.0 H NEUTROPHIL % (test code = NT%) 70.9 % 56.0-77.0 N IMMATURE GRANULOCYTE % (test code = IG%) 2.8 % 0.0-2.0 H LYMPHOCYTE % (test code = LY%) 12.7 % 14.0-32.0 L MONOCYTE % (test code = MO%) 12.8 % 4.8-9.0 H EOSINOPHIL % (test code = EO%) 0.7 % 0.3-3.7 N BASOPHIL % (test code = BA%) 0.1 % 0.0-2.0 N NUCLEATED RBC % (test code = NRBC%) 5.6 % 0-0 H NEUTROPHIL # (test code = NT#) 10.59 x10 3/uL 2.0-7.6 H IMMATURE GRANULOCYTE # (test code = IG#) 0.42 x10 3/uL 0.00-0.03 H LYMPHOCYTE # (test code = LY#) 1.90 x10 3/uL 1.0-3.8 N MONOCYTE # (test code = MO#) 1.92 x10 3/uL 0.1-0.8 H EOSINOPHIL # (test code = EO#) 0.10 x10 3/uL 0.0-0.2 N BASOPHIL # (test code = BA#) 0.02 x10 3/uL 0.0-0.2 N NUCLEATED RBC # (test code = NRBC#) 0.83 x10 3/uL 0.0-0.1 H MANUAL DIFF REQUIRED (test code = MDIFF) NO [id number] 20:51:00* Test Item Value Reference Range Interpretation Comments GLUBED (test code = GLUBED) 279 MG/DL 70-110 H Performed by certified crusher and blender operator at [facility] [id number] 17:42:00* Test Item Value Reference Range Interpretation Comments MAGNESIUM (test code = MAG) 2.50 mg/dL 1.8-2.4 H [id number] 17:26:00* Test Item Value Reference Range Interpretation Comments GLUBED (test code = GLUBED) 199 MG/DL 70-110 H Performed by certified crusher and blender operator at [facility] - XR ABDOMEN 1V (KUB)2018-08-20 14:10:00 FAX: Shalom Lisa I [phone] [place]: St: [facility] FAX: Courtney Laws MD [phone] Name: TRIPLETT MIAELVIABASIL [facility] : 1945 Age/S: 72/M [address] [place] [address] Unit #: [id number] Loc: [id number] [place] [address] Phys: Courtney Correa MD Acct: [id number] Dis Date: Status: ADM IN PHONE #: [phone] Exam Date: 08/20/2018 1323 FAX #: [phone] Reason: constipation, abd blo ating EXAMS: CPT CODE: [id number] XR ABDOMEN 1V (MLB) 73689 ONE VIEW ABDOMEN: HISTORY: Constipation with abdo eilo bloating. COMPARISON EXAM: None available FIND INGS: [...] and signed by: Miki Swan M.D. CC: Shalom Guillermo MD; Courtney mccauley MD Technologist: RT Misti(R) Trnscrd Date/Time/By: 08/20/2018 (1410) : By: [email or web address].KV/[email or web address].KV O rig Print D/T: S: 08/20/2018 (5119) PAGE 1 Signed Report [id number] 12:14:00* Test Item Value Reference Range Interpretation Comments GLUBED (test code = GLUBED) 275 MG/DL 70-110 H Performed by certified crusher and blender operator at [facility] ISTAT BLOOD [id number] 11:44:00* Test Item Value Reference Range Interpretation Comments ARTERIAL BLOOD GAS PH (test code = PHA) 7.407 7.35-7.45 N ARTERIAL BLOOD GAS PCO2 (test code = PCO2A) 38.0 mmHg 35-45 N ARTERIAL BLOOD GAS PO2 (test code = PO2A) 72 mmHg 80-100 L BICARBONATE TOTAL HCO3 (test code = HCO3) 23.9 mmol/L 22.0-26.0 N BASE EXCESS (test code = MASHA) -1.0 mmol/L -4-4 N ABG O2 SATURATION (test code = SATA) 94 % 90-100 N ABG DELIVERY (test code = HOLLAND) Cannula ABG TEMPERATURE (test code = TEMPA) 99.0 F ABG SITE (test code = SITEA) Art line BLOOD GAS [id number] 11:44:00* Test Item Value Reference Range Interpretation Comments ARTERIAL BLOOD GAS PH (test code = PHA) 7.375 7.35-7.45 N ARTERIAL BLOOD GAS PCO2 (test code = PCO2A) 38.6 mmHg 35-45 N ARTERIAL BLOOD GAS PO2 (test code = PO2A) 87 mmHg 80-100 N BICARBONATE TOTAL HCO3 (test code = HCO3) 22.7 mmol/L 22.0-26.0 N BASE EXCESS (test code = MASHA) -3.0 mmol/L -4-4 N ABG O2 SATURATION (test code = SATA) 97 % 90-100 N ABG DELIVERY (test code = HOLLAND) Vent ABG VENT MODE (test code = MODEA) Other ABG PRESSURE SUPPORT (test code = PSABG) 10 cmH2O Performed by certified crusher and blender operator at [facility] ABG TEMPERATURE (test code = TEMPA) 98.0 F ABG SITE (test code = SITEA) Art line IONIZED CALCIUM (test code = CAIABG) 1.14 mmoL/L 1.15-1.35 L SODIUM BEDSIDE (test code = NAB) 144 MEQ/L 134-147 N POTASSIUM BEDSIDE (test code = KBD) 4.0 MEQ/L 4.5-7.0 L [id number] 08:33:00* Test Item Value Reference Range Interpretation Comments GLUBED (test code = GLUBED) 186 MG/DL 70-110 H Performed by certified crusher and blender operator at [facility] BASIC METABOLIC [id number] 08:18:00* Test Item Value Reference Range Interpretation Comments SODIUM (test code = NA) 135 mEq/L 134-147 N POTASSIUM (test code = K) 4.5 mEq/L 3.4-5.0 N CHLORIDE (test code = CL) 103 mEq/L 100-108 N CARBON DIOXIDE (test code = CO2) 24 mEq/L 21-33 N ANION GAP (test code = GAP) 13 0-20 N GLUCOSE (test code = GLU) 185 mg/dL 70-110 H BLOOD UREA NITROGEN (test code = BUN) 30 mg/dL 7-18 H GLOMERULAR FILTRATION RATE (test code = GFR) 73.5 70-80 N Units of measure = ml/min/1.73 m2 CREATININE (test code = CREAT) 1.0 mg/dL 0.6-1.3 N CALCIUM (test code = CA) 8.3 mg/dL 8.0-10.5 N [id number] 08:18:00* Test Item Value Reference Range Interpretation Comments MAGNESIUM (test code = MAG) 2.80 mg/dL 1.8-2.4 H CBC W/AUTO [id number] 07:47:00* Test Item Value Reference Range Interpretation Comments WHITE BLOOD CELL (test code = WBC) 12.02 x10 3/uL 4.5-11.0 H RED BLOOD CELL (test code = RBC) 2.78 x10 6/uL 4.00-5.60 L HEMOGLOBIN (test code = HGB) 7.9 g/dL 12.5-16.9 L HEMATOCRIT (test code = HCT) 24.5 % 37.5-50.7 L MEAN CELL VOLUME (test code = MCV) 88.1 fL 81.0-99.0 N MEAN CELL HGB (test code = MCH) 28.4 pg 27.0-33.0 N MEAN CELL HGB CONCETRATION (test code = MCHC) 32.2 g/dL 33.0-37. 0 L RED CELL DISTRIBUTION WIDTH CV (test code = RDW) 15.9 % 11.5- 14.5 H RED CELL DISTRIBUTION WIDTH SD (test code = RDW-SD) 50.4 fL 37 .0-54.0 N PLATELET COUNT (test code = PLT) 110 x10 3/uL 150-400 L MEAN PLATELET VOLUME (test code = MPV) 12.4 fL 7.0-9.0 H NEUTROPHIL % (test code = NT%) 77.4 % 56.0-77.0 H IMMATURE GRANULOCYTE % (test code = IG%) 1.6 % 0.0-2.0 N LYMPHOCYTE % (test code = LY%) 10.6 % 14.0-32.0 L MONOCYTE % (test code = MO%) 9.2 % 4.8-9.0 H EOSINOPHIL % (test code = EO%) 1.1 % 0.3-3.7 N BASOPHIL % (test code = BA%) 0.1 % 0.0-2.0 N NUCLEATED RBC % (test code = NRBC%) 1.5 % 0-0 H NEUTROPHIL # (test code = NT#) 9.30 x10 3/uL 2.0-7.6 H IMMATURE GRANULOCYTE # (test code = IG#) 0.19 x10 3/uL 0.00-0.03 H LYMPHOCYTE # (test code = LY#) 1.28 x10 3/uL 1.0-3.8 N MONOCYTE # (test code = MO#) 1.11 x10 3/uL 0.1-0.8 H EOSINOPHIL # (test code = EO#) 0.13 x10 3/uL 0.0-0.2 N BASOPHIL # (test code = BA#) 0.01 x10 3/uL 0.0-0.2 N NUCLEATED RBC # (test code = NRBC#) 0.18 x10 3/uL 0.0-0.1 H MANUAL DIFF REQUIRED (test code = MDIFF) NO COMMENTS: Daily while on Heparin- XR CHEST 1 [id number] 07:18:00 FAX: Shalom Lisa I [phone] [place]: St: ADM FAX: Candie Reinoso (C Name: TORI GREGORY [facility] : 1945 Age/S: 72/M [address] [place] [address] Unit #: [id number] Loc: G.3362 [facility] [place] [address] Phys: Candie Reinoso NP (Christy) Acct: [id number] Dis Date: Status: ADM IN PHONE #: [phone] Exam Date: 08/20/2018 0600 FAX #: [phone] Reason: Cardiac Surgery Post Op EXAMS: CPT CODE: [id number] XR CHEST 1 V 84121 - XR CHEST 1 V 08/20/2018 5:00 [...] By: KortneyJY5 Orig Print D/T: S: 08/20/2018 (0722) PAGE 1 Signed Report [id number] 21:21:00* Test Item Value Reference Range Interpretation Comments GLUBED (test code = GLUBED) 215 MG/DL 70-110 H Performed by certified crusher and blender operator at [facility] [id number] 18:04:00* Test Item Value Reference Range Interpretation Comments GLUBED (test code = GLUBED) 223 MG/DL 70-110 H Performed by certified crusher and blender operator at [facility] ISTAT BLOOD [id number] 14:34:00* Test Item Value Reference Range Interpretation Comments ARTERIAL BLOOD GAS PH (test code = PHA) 7.407 7.35-7.45 N ARTERIAL BLOOD GAS PCO2 (test code = PCO2A) 38.0 mmHg 35-45 N ARTERIAL BLOOD GAS PO2 (test code = PO2A) 72 mmHg 80-100 L BICARBONATE TOTAL HCO3 (test code = HCO3) 23.9 mmol/L 22.0-26.0 N BASE EXCESS (test code = MASHA) -1.0 mmol/L -4-4 N ABG O2 SATURATION (test code = SATA) 94 % 90-100 N ABG DELIVERY (test code = HOLLAND) Cannula ABG TEMPERATURE (test code = TEMPA) 99.0 F ABG SITE (test code = SITEA) Art line POC LACTIC ACID (test code = POCLAC) mmol/L 0.9-1.7 [id number] 11:40:00* Test Item Value Reference Range Interpretation Comments GLUBED (test code = GLUBED) 229 MG/DL 70-110 H Performed by certified crusher and blender operator at [facility] [id number] 08:41:00* Test Item Value Reference Range Interpretation Comments GLUBED (test code = GLUBED) 167 MG/DL 70-110 H Performed by certified crusher and blender operator at [facility] CBC W/AUTO [id number] 08:03:00* Test Item Value Reference Range Interpretation Comments WHITE BLOOD CELL (test code = WBC) 9.80 x10 3/uL 4.5-11.0 N RED BLOOD CELL (test code = RBC) 2.56 x10 6/uL 4.00-5.60 L HEMOGLOBIN (test code = HGB) 7.2 g/dL 12.5-16.9 L HEMATOCRIT (test code = HCT) 23.0 % 37.5-50.7 L MEAN CELL VOLUME (test code = MCV) 89.8 fL 81.0-99.0 MEAN CELL HGB (test code = MCH) 28.1 pg 27.0-33.0 N MEAN CELL HGB CONCETRATION (test code = MCHC) 31.3 g/dL 33.0-37. 0 L RED CELL DISTRIBUTION WIDTH CV (test code = RDW) 15.9 % 11.5- 14.5 H RED CELL DISTRIBUTION WIDTH SD (test code = RDW-SD) 51.8 fL 37 .0-54.0 N PLATELET COUNT (test code = PLT) 75 x10 3/uL 150-400 L MEAN PLATELET VOLUME (test code = MPV) 12.5 fL 7.0-9.0 H NEUTROPHIL % (test code = NT%) 80.1 % 56.0-77.0 H IMMATURE GRANULOCYTE % (test code = IG%) 0.7 % 0.0-2.0 N LYMPHOCYTE % (test code = LY%) 11.3 % 14.0-32.0 L MONOCYTE % (test code = MO%) 7.6 % 4.8-9.0 N EOSINOPHIL % (test code = EO%) 0.2 % 0.3-3.7 L BASOPHIL % (test code = BA%) 0.1 % 0.0-2.0 N NUCLEATED RBC % (test code = NRBC%) 0.3 % 0-0 H NEUTROPHIL # (test code = NT#) 7.85 x10 3/uL 2.0-7.6 H IMMATURE GRANULOCYTE # (test code = IG#) 0.07 x10 3/uL 0.00-0.03 H LYMPHOCYTE # (test code = LY#) 1.11 x10 3/uL 1.0-3.8 N MONOCYTE # (test code = MO#) 0.74 x10 3/uL 0.1-0.8 N EOSINOPHIL # (test code = EO#) 0.02 x10 3/uL 0.0-0.2 N BASOPHIL # (test code = BA#) 0.01 x10 3/uL 0.0-0.2 N NUCLEATED RBC # (test code = NRBC#) 0.03 x10 3/uL 0.0-0.1 N MANUAL DIFF REQUIRED (test code = MDIFF) NO COMMENTS: Daily while on HeparinPLT [id number] 08:03:00* Test Item Value Reference Range Interpretation Comments PLATELET ESTIMATE (test code = PLTEST) 84-105 THOUSAND ADEQUATE PLATELET MORPHOLOGY (test code = PLTMORPH) LARGE PLATELETS COMMENTS: Daily while on HeparinBASIC METABOLIC [id number] 07:53:00* Test Item Value Reference Range Interpretation Comments SODIUM (test code = NA) 135 mEq/L 134-147 N POTASSIUM (test code = K) 5.0 mEq/L 3.4-5.0 N CHLORIDE (test code = CL) 103 mEq/L 100-108 N CARBON DIOXIDE (test code = CO2) 24 mEq/L 21-33 N ANION GAP (test code = GAP) 13 0-20 N GLUCOSE (test code = GLU) 187 mg/dL 70-110 H BLOOD UREA NITROGEN (test code = BUN) 38 mg/dL 7-18 H GLOMERULAR FILTRATION RATE (test code = GFR) 59.5 70-80 L Units of measure = ml/min/1.73 m2 CREATININE (test code = CREAT) 1.2 mg/dL 0.6-1.3 N CALCIUM (test code = CA) 7.8 mg/dL 8.0-10.5 L [id number] 07:53:00* Test Item Value Reference Range Interpretation Comments MAGNESIUM (test code = MAG) 3.20 mg/dL 1.8-2.4 H CBC W/AUTO [id number] 07:35:00* Test Item Value Reference Range Interpretation Comments WHITE BLOOD CELL (test code = WBC) 9.80 x10 3/uL 4.5-11.0 N RED BLOOD CELL (test code = RBC) 2.56 x10 6/uL 4.00-5.60 L HEMOGLOBIN (test code = HGB) 7.2 g/dL 12.5-16.9 L HEMATOCRIT (test code = HCT) 23.0 % 37.5-50.7 L MEAN CELL VOLUME (test code = MCV) 89.8 fL 81.0-99.0 MEAN CELL HGB (test code = MCH) 28.1 pg 27.0-33.0 N MEAN CELL HGB CONCETRATION (test code = MCHC) 31.3 g/dL 33.0-37. 0 L RED CELL DISTRIBUTION WIDTH CV (test code = RDW) 15.9 % 11.5- 14.5 H RED CELL DISTRIBUTION WIDTH SD (test code = RDW-SD) 51.8 fL 37 .0-54.0 N PLATELET COUNT (test code = PLT) 75 x10 3/uL 150-400 L MEAN PLATELET VOLUME (test code = MPV) 12.5 fL 7.0-9.0 H NEUTROPHIL % (test code = NT%) 80.1 % 56.0-77.0 H IMMATURE GRANULOCYTE % (test code = IG%) 0.7 % 0.0-2.0 N LYMPHOCYTE % (test code = LY%) 11.3 % 14.0-32.0 L MONOCYTE % (test code = MO%) 7.6 % 4.8-9.0 N EOSINOPHIL % (test code = EO%) 0.2 % 0.3-3.7 L BASOPHIL % (test code = BA%) 0.1 % 0.0-2.0 N NUCLEATED RBC % (test code = NRBC%) 0.3 % 0-0 H NEUTROPHIL # (test code = NT#) 7.85 x10 3/uL 2.0-7.6 H IMMATURE GRANULOCYTE # (test code = IG#) 0.07 x10 3/uL 0.00-0.03 H LYMPHOCYTE # (test code = LY#) 1.11 x10 3/uL 1.0-3.8 N MONOCYTE # (test code = MO#) 0.74 x10 3/uL 0.1-0.8 N EOSINOPHIL # (test code = EO#) 0.02 x10 3/uL 0.0-0.2 N BASOPHIL # (test code = BA#) 0.01 x10 3/uL 0.0-0.2 N NUCLEATED RBC # (test code = NRBC#) 0.03 x10 3/uL 0.0-0.1 N MANUAL DIFF REQUIRED (test code = MDIFF) NO COMMENTS: Daily while on HeparinPLT [id number] 07:35:00* Test Item Value Reference Range Interpretation Comments PLATELET ESTIMATE (test code = PLTEST) THOUSAND ADEQUATE COMMENTS: Daily while on HeparinCBC W/AUTO [id number] 07:35:00* Test Item Value Reference Range Interpretation Comments WHITE BLOOD CELL (test code = WBC) 9.80 x10 3/uL 4.5-11.0 N RED BLOOD CELL (test code = RBC) 2.56 x10 6/uL 4.00-5.60 L HEMOGLOBIN (test code = HGB) 7.2 g/dL 12.5-16.9 L HEMATOCRIT (test code = HCT) 23.0 % 37.5-50.7 L MEAN CELL VOLUME (test code = MCV) 89.8 fL 81.0-99.0 MEAN CELL HGB (test code = MCH) 28.1 pg 27.0-33.0 N MEAN CELL HGB CONCETRATION (test code = MCHC) 31.3 g/dL 33.0-37. 0 L RED CELL DISTRIBUTION WIDTH CV (test code = RDW) 15.9 % 11.5- 14.5 H RED CELL DISTRIBUTION WIDTH SD (test code = RDW-SD) 51.8 fL 37 .0-54.0 N PLATELET COUNT (test code = PLT) 75 x10 3/uL 150-400 L MEAN PLATELET VOLUME (test code = MPV) 12.5 fL 7.0-9.0 H NEUTROPHIL % (test code = NT%) 80.1 % 56.0-77.0 H IMMATURE GRANULOCYTE % (test code = IG%) 0.7 % 0.0-2.0 N LYMPHOCYTE % (test code = LY%) 11.3 % 14.0-32.0 L MONOCYTE % (test code = MO%) 7.6 % 4.8-9.0 N EOSINOPHIL % (test code = EO%) 0.2 % 0.3-3.7 L BASOPHIL % (test code = BA%) 0.1 % 0.0-2.0 N NUCLEATED RBC % (test code = NRBC%) 0.3 % 0-0 H NEUTROPHIL # (test code = NT#) 7.85 x10 3/uL 2.0-7.6 H IMMATURE GRANULOCYTE # (test code = IG#) 0.07 x10 3/uL 0.00-0.03 H LYMPHOCYTE # (test code = LY#) 1.11 x10 3/uL 1.0-3.8 N MONOCYTE # (test code = MO#) 0.74 x10 3/uL 0.1-0.8 N EOSINOPHIL # (test code = EO#) 0.02 x10 3/uL 0.0-0.2 N BASOPHIL # (test code = BA#) 0.01 x10 3/uL 0.0-0.2 N NUCLEATED RBC # (test code = NRBC#) 0.03 x10 3/uL 0.0-0.1 N MANUAL DIFF REQUIRED (test code = MDIFF) NO COMMENTS: Daily while on HeparinPLT [id number] 07:35:00* Test Item Value Reference Range Interpretation Comments PLATELET ESTIMATE (test code = PLTEST) THOUSAND ADEQUATE COMMENTS: Daily while on Heparin- XR CHEST 1 [id number] 07:20:00 FAX: Shalom Lisa I [phone] [place]: St: [facility] FAX: Candie Reinoso (C Name: TORI GREGORY [facility] : 1945 Age/S: 72/M [address] [place], [place] [address] Unit #: [id number] Loc: [place] [id number] Phys: Candie Reinoso NP (Christy) Acct: [id number] Dis Date: Status: ADM IN PHONE #: [phone] Exam Date: 08/19/2018 05 FAX #: [phone] Reason: Cardiac Surgery Post Op EXAMS: CPT CODE: [id number] XR CHEST 1 V [id number] - XR CHEST 1 V 08/19/2018 5:00 [...] ologist: Milton Kuhn, RT(R); Maine Dash RT(R) Trnokrd Date/Jason e/By: 08/19/2018 (07) : By: [email or web address] Orig Print D/T: S: 08/19/2018 (6070) PAGE 1 Signed Report COAGULATION TIME [id number] 06:46:00* Test Item Value Reference Range Interpretation Comments COAGULATION TIME ACTIVATED (test code = ACT) 122 SECONDS 105-167 N COAGULATION TIME [id number] 06:46:00* Test Item Value Reference Range Interpretation Comments COAGULATION TIME ACTIVATED (test code = ACT) 564 SECONDS 105-167 H COAGULATION TIME [id number] 06:46:00* Test Item Value Reference Range Interpretation Comments COAGULATION TIME ACTIVATED (test code = ACT) 521 SECONDS 105-167 H COAGULATION TIME [id number] 06:46:00* Test Item Value Reference Range Interpretation Comments COAGULATION TIME ACTIVATED (test code = ACT) 499 SECONDS 105-167 H COAGULATION TIME [id number] 06:42:00* Test Item Value Reference Range Interpretation Comments COAGULATION TIME ACTIVATED (test code = ACT) 532 SECONDS 105-167 H COAGULATION TIME [id number] 06:42:00* Test Item Value Reference Range Interpretation Comments COAGULATION TIME ACTIVATED (test code = ACT) 109 SECONDS 105-167 N [id number] 21:28:00* Test Item Value Reference Range Interpretation Comments GLUBED (test code = GLUBED) 179 MG/DL 70-110 H Performed by certified crusher and blender operator at [facility] BASIC METABOLIC [id number] 17:20:00* Test Item Value Reference Range Interpretation Comments SODIUM (test code = NA) 132 mEq/L 134-147 L POTASSIUM (test code = K) 4.7 mEq/L 3.4-5.0 N CHLORIDE (test code = CL) 105 mEq/L 100-108 N CARBON DIOXIDE (test code = CO2) 23 mEq/L 21-33 N ANION GAP (test code = GAP) 9 0-20 N GLUCOSE (test code = GLU) 196 mg/dL 70-110 H BLOOD UREA NITROGEN (test code = BUN) 40 mg/dL 7-18 H GLOMERULAR FILTRATION RATE (test code = GFR) 49.8 70-80 L Units of measure = ml/min/1.73 m2 CREATININE (test code = CREAT) 1.4 mg/dL 0.6-1.3 H CALCIUM (test code = CA) 7.8 mg/dL 8.0-10.5 L [id number] 17:20:00* Test Item Value Reference Range Interpretation Comments MAGNESIUM (test code = MAG) 3.00 mg/dL 1.8-2.4 H [id number] 17:19:00* Test Item Value Reference Range Interpretation Comments GLUBED (test code = GLUBED) 205 MG/DL 70-110 H Performed by certified crusher and blender operator at [facility] [id number] 12:16:00* Test Item Value Reference Range Interpretation Comments GLUBED (test code = GLUBED) 210 MG/DL 70-110 H Performed by certified crusher and blender operator at [facility] [id number] 10:22:00* Test Item Value Reference Range Interpretation Comments GLUBED (test code = GLUBED) 249 MG/DL 70-110 H Performed by certified crusher and blender operator at [facility] - XR CHEST 1 [id number] 08:18:00 FAX: Shalom Lisa I [phone] [place]: St: ADM FAX: Candie Reinoso (C Name: UZIEL REDDLaryELVIABASIL [facility] : 1945 Age/S: 72/M [address] [place] [address] Blvd Unit #: [id number] Loc: G.3362 [place] [address] 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 Acct: [id number] Dis Date: Status: ADM IN PHONE #: [phone] Exam Date: 08/18/2018741 FAX #: [phone] Reason: Cardiac Surgery Post Op EXAMS: CPT CODE: [id number] XR CHEST 1 V 19722 CHEST, SINGLE VIEW HISTORY: Coronary artery disease, [...] By: Shilpi Orig Print D/T: S: 08/18/2018 (6609) PAGE 1 Signed Report BASIC METABOLIC [id number] 04:33:00* Test Item Value Reference Range Interpretation Comments SODIUM (test code = NA) 134 mEq/L 134-147 N POTASSIUM (test code = K) 5.4 mEq/L 3.4-5.0 H CHLORIDE (test code = CL) 103 mEq/L 100-108 N CARBON DIOXIDE (test code = CO2) 21 mEq/L 21-33 N ANION GAP (test code = GAP) 15 0-20 N GLUCOSE (test code = GLU) 212 mg/dL 70-110 H BLOOD UREA NITROGEN (test code = BUN) 36 mg/dL 7-18 H GLOMERULAR FILTRATION RATE (test code = GFR) 46.0 70-80 L Units of measure = ml/min/1.73 m2 CREATININE (test code = CREAT) 1.5 mg/dL 0.6-1.3 H CALCIUM (test code = CA) 7.9 mg/dL 8.0-10.5 L [id number] 04:33:00* Test Item Value Reference Range Interpretation Comments MAGNESIUM (test code = MAG) 2.90 mg/dL 1.8-2.4 H CBC W/AUTO [id number] 04:17:00* Test Item Value Reference Range Interpretation Comments WHITE BLOOD CELL (test code = WBC) 12.61 x10 3/uL 4.5-11.0 H RED BLOOD CELL (test code = RBC) 2.66 x10 6/uL 4.00-5.60 L HEMOGLOBIN (test code = HGB) 7.4 g/dL 12.5-16.9 L HEMATOCRIT (test code = HCT) 24.7 % 37.5-50.7 L MEAN CELL VOLUME (test code = MCV) 92.9 fL 81.0-99.0 MEAN CELL HGB (test code = MCH) 27.8 pg 27.0-33.0 N MEAN CELL HGB CONCETRATION (test code = MCHC) 30.0 g/dL 33.0-37. 0 L RED CELL DISTRIBUTION WIDTH CV (test code = RDW) 16.2 % 11.5- 14.5 H RED CELL DISTRIBUTION WIDTH SD (test code = RDW-SD) 55.5 fL 37 .0-54.0 H PLATELET COUNT (test code = PLT) 122 x10 3/uL 150-400 L MEAN PLATELET VOLUME (test code = MPV) 12.1 fL 7.0-9.0 H NEUTROPHIL % (test code = NT%) 77.6 % 56.0-77.0 H IMMATURE GRANULOCYTE % (test code = IG%) 0.6 % 0.0-2.0 N LYMPHOCYTE % (test code = LY%) 10.6 % 14.0-32.0 L MONOCYTE % (test code = MO%) 11.1 % 4.8-9.0 H EOSINOPHIL % (test code = EO%) 0.0 % 0.3-3.7 L BASOPHIL % (test code = BA%) 0.1 % 0.0-2.0 N NUCLEATED RBC % (test code = NRBC%) 0.2 % 0-0 H NEUTROPHIL # (test code = NT#) 9.79 x10 3/uL 2.0-7.6 H IMMATURE GRANULOCYTE # (test code = IG#) 0.07 x10 3/uL 0.00-0.03 H LYMPHOCYTE # (test code = LY#) 1.34 x10 3/uL 1.0-3.8 N MONOCYTE # (test code = MO#) 1.40 x10 3/uL 0.1-0.8 H EOSINOPHIL # (test code = EO#) 0.00 x10 3/uL 0.0-0.2 N BASOPHIL # (test code = BA#) 0.01 x10 3/uL 0.0-0.2 N NUCLEATED RBC # (test code = NRBC#) 0.02 x10 3/uL 0.0-0.1 N MANUAL DIFF REQUIRED (test code = MDIFF) NO COMMENTS: Daily while on [id number] 21:13:00* Test Item Value Reference Range Interpretation Comments GLUBED (test code = GLUBED) 201 MG/DL 70-110 H Performed by certified crusher and blender operator at [facility] [id number] 19:10:00* Test Item Value Reference Range Interpretation Comments GLUBED (test code = GLUBED) 224 MG/DL 70-110 H Performed by certified crusher and blender operator at [facility] [id number] 12:14:00* Test Item Value Reference Range Interpretation Comments GLUBED (test code = GLUBED) 197 MG/DL 70-110 H Performed by certified crusher and blender operator at [facility] - XR CHEST 1 [id number] 08:44:00 FAX: Jaja GuillermoShalom Juan [phone] [place]: St: ADM FAX: Candie Reinoso (C Name: TORI GREGORY [facility] : 1945 Age/S: 72/M [address] [place] [address] Blvd Unit #: [id number] Loc: G.2208 [place] [address] Phys: Candie Reinoso (Beckie) 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 [id number] 07:03:00* Test Item Value Reference Range Interpretation Comments GLUBED (test code = GLUBED) 108 MG/DL 70-110 N Performed by certified crusher and blender operator at [facility] [id number] 06:17:00* Test Item Value Reference Range Interpretation Comments GLUBED (test code = GLUBED) 157 MG/DL 70-110 H Performed by certified crusher and blender operator at [facility] BLOOD GAS W/[id number] 05:51:00* Test Item Value Reference Range Interpretation Comments ARTERIAL BLOOD GAS PH (test code = PHA) 7.410 7.35-7.45 N ARTERIAL BLOOD GAS PCO2 (test code = PCO2A) 37.5 mmHg 35-45 N ARTERIAL BLOOD GAS PO2 (test code = PO2A) 70 mmHg 80-100 L BICARBONATE TOTAL HCO3 (test code = HCO3) 23.7 mmol/L 22.0-26.0 N BASE EXCESS (test code = MASHA) -1.0 mmol/L -4-4 N ABG O2 SATURATION (test code = SATA) 94 % 90-100 N ABG DELIVERY (test code = HOLLAND) Cannula ABG TEMPERATURE (test code = TEMPA) 99.0 F ABG SITE (test code = SITEA) Art line IONIZED CALCIUM (test code = CAIABG) 1.12 mmoL/L 1.15-1.35 L SODIUM BEDSIDE (test code = NAB) 143 MEQ/L 134-147 N POTASSIUM BEDSIDE (test code = KBD) 4.6 MEQ/L 4.5-7.0 N ISTAT BLOOD [id number] 05:45:00* Test Item Value Reference Range Interpretation Comments ARTERIAL BLOOD GAS PH (test code = PHA) 7.401 7.35-7.45 N ARTERIAL BLOOD GAS PCO2 (test code = PCO2A) 36.1 mmHg 35-45 N ARTERIAL BLOOD GAS PO2 (test code = PO2A) 79 mmHg 80-100 L BICARBONATE TOTAL HCO3 (test code = HCO3) 22.4 mmol/L 22.0-26.0 N BASE EXCESS (test code = MASHA) -2.0 mmol/L -4-4 N ABG O2 SATURATION (test code = SATA) 96 % 90-100 N ABG DELIVERY (test code = HOLLAND) Cannula ABG TEMPERATURE (test code = TEMPA) 99.0 F ABG SITE (test code = SITEA) Art line POC LACTIC ACID (test code = POCLAC) 1.0 mmol/L 0.9-1.7 N BASIC METABOLIC [id number] 04:42:00* Test Item Value Reference Range Interpretation Comments SODIUM (test code = NA) 143 mEq/L 134-147 N POTASSIUM (test code = K) 4.6 mEq/L 3.4-5.0 N CHLORIDE (test code = CL) 112 mEq/L 100-108 H CARBON DIOXIDE (test code = CO2) 26 mEq/L 21-33 N ANION GAP (test code = GAP) 10 0-20 N GLUCOSE (test code = GLU) 164 mg/dL 70-110 H BLOOD UREA NITROGEN (test code = BUN) 20 mg/dL 7-18 H GLOMERULAR FILTRATION RATE (test code = GFR) 73.5 70-80 N Units of measure = ml/min/1.73 m2 CREATININE (test code = CREAT) 1.0 mg/dL 0.6-1.3 N CALCIUM (test code = CA) 7.7 mg/dL 8.0-10.5 L COMMENTS: POD #1HEPATIC FUNCTION [id number] 04:42:00* Test Item Value Reference Range Interpretation Comments TOTAL PROTEIN (test code = PROT) 5.9 g/dL 6.4-8.2 L ALBUMIN (test code = ALB) 3.60 g/dL 3.4-5.0 N BILIRUBIN TOTAL (test code = BILT) 0.30 mg/dL 0.0-1.0 N BILIRUBIN DIRECT (test code = BILD) 0.10 MG/DL 0.0-0.30 N BILIRUBIN INDIRECT (test code = BILIND) 0.20 MG/DL SGOT/AST (test code = AST) 50 IUnit/L 15-37 H SGPT/ALT (test code = ALT) 20 IUnit/L 15-65 N ALKALINE PHOSPHATASE TOTAL (test code = ALKP) 33 IUnit/L 20-125 N COMMENTS: POD #[id number] 04:42:00* Test Item Value Reference Range Interpretation Comments MAGNESIUM (test code = MAG) 2.90 mg/dL 1.8-2.4 H COMMENTS: POD #1CBC W/AUTO [id number] 04:25:00* Test Item Value Reference Range Interpretation Comments WHITE BLOOD CELL (test code = WBC) 10.66 x10 3/uL 4.5-11.0 RED BLOOD CELL (test code = RBC) 2.46 x10 6/uL 4.00-5.60 L HEMOGLOBIN (test code = HGB) 6.9 g/dL 12.5-16.9 L HEMATOCRIT (test code = HCT) 21.9 % 37.5-50.7 L MEAN CELL VOLUME (test code = MCV) 89.0 fL 81.0-99.0 N MEAN CELL HGB (test code = MCH) 28.0 pg 27.0-33.0 N MEAN CELL HGB CONCETRATION (test code = MCHC) 31.5 g/dL 33.0-37. 0 L RED CELL DISTRIBUTION WIDTH CV (test code = RDW) 16.2 % 11.5- 14.5 H RED CELL DISTRIBUTION WIDTH SD (test code = RDW-SD) 52.5 fL 37 .0-54.0 N PLATELET COUNT (test code = PLT) 129 x10 3/uL 150-400 L MEAN PLATELET VOLUME (test code = MPV) 10.6 fL 7.0-9.0 H NEUTROPHIL % (test code = NT%) 85.0 % 56.0-77.0 H IMMATURE GRANULOCYTE % (test code = IG%) 0.4 % 0.0-2.0 N LYMPHOCYTE % (test code = LY%) 5.9 % 14.0-32.0 L MONOCYTE % (test code = MO%) 8.7 % 4.8-9.0 N EOSINOPHIL % (test code = EO%) 0.0 % 0.3-3.7 L BASOPHIL % (test code = BA%) 0.0 % 0.0-2.0 N NUCLEATED RBC % (test code = NRBC%) 0.0 % 0-0 N NEUTROPHIL # (test code = NT#) 9.06 x10 3/uL 2.0-7.6 H IMMATURE GRANULOCYTE # (test code = IG#) 0.04 x10 3/uL 0.00-0.03 H LYMPHOCYTE # (test code = LY#) 0.63 x10 3/uL 1.0-3.8 L MONOCYTE # (test code = MO#) 0.93 x10 3/uL 0.1-0.8 H EOSINOPHIL # (test code = EO#) 0.00 x10 3/uL 0.0-0.2 N BASOPHIL # (test code = BA#) 0.00 x10 3/uL 0.0-0.2 N NUCLEATED RBC # (test code = NRBC#) 0.00 x10 3/uL 0.0-0.1 N MANUAL DIFF REQUIRED (test code = MDIFF) NO COMMENTS: Daily while on [id number] 02:33:00* Test Item Value Reference Range Interpretation Comments GLUBED (test code = GLUBED) 173 MG/DL 70-110 H Performed by certified crusher and blender operator at [facility] [id number] 00:28:00* Test Item Value Reference Range Interpretation Comments GLUBED (test code = GLUBED) 199 MG/DL 70-110 H Performed by certified crusher and blender operator at [facility] [id number] 00:25:00* Test Item Value Reference Range Interpretation Comments POTASSIUM (test code = K) 4.8 mEq/L 3.4-5.0 N HGB [id number] 00:21:00* Test Item Value Reference Range Interpretation Comments HEMOGLOBIN (test code = HGB) 6.8 g/dL 12.5-16.9 L HEMATOCRIT (test code = HCT) 21.9 % 37.5-50.7 L [id number] 22:46:00* Test Item Value Reference Range Interpretation Comments GLUBED (test code = GLUBED) 232 MG/DL 70-110 H Performed by certified crusher and blender operator at [facility] [id number] 20:37:00* Test Item Value Reference Range Interpretation Comments GLUBED (test code = GLUBED) 229 MG/DL 70-110 H Performed by certified crusher and blender operator at [facility] [id number] 19:39:00* Test Item Value Reference Range Interpretation Comments GLUBED (test code = GLUBED) 206 MG/DL 70-110 H Performed by certified crusher and blender operator at [facility] [id number] 19:27:00* Test Item Value Reference Range Interpretation Comments GLUBED (test code = GLUBED) 168 MG/DL 70-110 H Performed by certified crusher and blender operator at [facility] [id number] 19:27:00* Test Item Value Reference Range Interpretation Comments GLUBED (test code = GLUBED) 203 MG/DL 70-110 H Performed by certified crusher and blender operator at [facility] [id number] 19:27:00* Test Item Value Reference Range Interpretation Comments GLUBED (test code = GLUBED) 229 MG/DL 70-110 H Performed by certified crusher and blender operator at [facility] [id number] 19:27:00* Test Item Value Reference Range Interpretation Comments GLUBED (test code = GLUBED) 170 MG/DL 70-110 H Performed by certified crusher and blender operator at [facility] [id number] 19:27:00* Test Item Value Reference Range Interpretation Comments GLUBED (test code = GLUBED) 154 MG/DL 70-110 H Performed by certified crusher and blender operator at [facility] [id number] 19:27:00* Test Item Value Reference Range Interpretation Comments GLUBED (test code = GLUBED) 176 MG/DL 70-110 H Performed by certified crusher and blender operator at [facility] [id number] 19:27:00* Test Item Value Reference Range Interpretation Comments GLUBED (test code = GLUBED) 148 MG/DL 70-110 H Performed by certified crusher and blender operator at [facility] [id number] 18:46:00* Test Item Value Reference Range Interpretation Comments POTASSIUM (test code = K) 4.2 mEq/L 3.4-5.0 N HGB [id number] 18:42:00* Test Item Value Reference Range Interpretation Comments HEMOGLOBIN (test code = HGB) 7.3 g/dL 12.5-16.9 L HEMATOCRIT (test code = HCT) 23.2 % 37.5-50.7 L ISTAT BLOOD [id number] 18:39:00* Test Item Value Reference Range Interpretation Comments ARTERIAL BLOOD GAS PH (test code = PHA) 7.338 7.35-7.45 L ARTERIAL BLOOD GAS PCO2 (test code = PCO2A) 31.4 mmHg 35-45 L ARTERIAL BLOOD GAS PO2 (test code = PO2A) 91 mmHg 80-100 N BICARBONATE TOTAL HCO3 (test code = HCO3) 16.9 mmol/L 22.0-26.0 L BASE EXCESS (test code = MASHA) -9.0 mmol/L -4-4 L ABG O2 SATURATION (test code = SATA) 97 % 90-100 N FIO2 (test code = FIO2A) 40 % ABG DELIVERY (test code = HOLLAND) Venti Performed by certified crusher and blender operator at [facility] ABG TEMPERATURE (test code = TEMPA) 98.0 F ABG SITE (test code = SITEA) Art line PREDICTED AA GRADIENT (test code = AP) 64 PREDICTED PO2 (test code = OP) 183 a/A RATIO (test code = RATIO) 0.37 POC LACTIC ACID (test code = POCLAC) 6.0 mmol/L 0.9-1.7 HH A-A GRADIENT (test code = AAGRADE) 157 [id number] 16:30:00* Test Item Value Reference Range Interpretation Comments GLUBED (test code = GLUBED) 193 MG/DL 70-110 H Performed by certified crusher and blender operator at [facility] BLOOD GAS W/[id number] 16:15:00* Test Item Value Reference Range Interpretation Comments ARTERIAL BLOOD GAS PH (test code = PHA) 7.375 7.35-7.45 N ARTERIAL BLOOD GAS PCO2 (test code = PCO2A) 38.6 mmHg 35-45 N ARTERIAL BLOOD GAS PO2 (test code = PO2A) 87 mmHg 80-100 N BICARBONATE TOTAL HCO3 (test code = HCO3) 22.7 mmol/L 22.0-26.0 N BASE EXCESS (test code = MASHA) -3.0 mmol/L -4-4 N ABG O2 SATURATION (test code = SATA) 97 % 90-100 N FIO2 (test code = FIO2A) % ABG DELIVERY (test code = HOLLAND) Vent ABG VENT MODE (test code = MODEA) Other ABG PRESSURE SUPPORT (test code = PSABG) 10 cmH2O Performed by certified crusher and blender operator at 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 PORTABLE EXAM 1:57 PM HISTORY: Postop cardiac surgery. COMPARISON: 08/08/2018 chest x-ray. Right IJ central line, ET tube and NG tube all in apparent good position. Stable cardiomegaly. Shallow inspiration which does accentuate pulmonary markings. No pneumothorax. No appreciable pleural fluid collections. IMPRESSION: Shallow inspiration. Support devices appear well-positioned. Otherwise normal exam. END OF IMPRESSION SL: [id number] at 1429 Reported and signed by: Jesus Marie M.D. CC: Shalom Guillermo MD; Candie Reinoso NP (Christy) Technologist: RT Deuce(R) Trnscrd Date/Time/By: 08/16/2018 (7694) : By: B Orig Print D/T: S: 08/16/2018 (0375) PAGE 1 Signed Report ARTERIAL BLOOD [id number] 14:27:00* Test Item Value Reference Range Interpretation Comments ARTERIAL BLOOD GAS PH (test code = PHA) 7.399 7.35-7.45 N ARTERIAL BLOOD GAS PCO2 (test code = PCO2A) 37.2 mmHg 35-45 N ARTERIAL BLOOD GAS PO2 (test code = PO2A) 81 mmHg 80-100 N BICARBONATE TOTAL HCO3 (test code = HCO3) 23.1 mmol/L 22.0-26.0 N BASE EXCESS (test code = MASHA) -2.0 mmol/L -4-4 N ABG O2 SATURATION (test code = SATA) 96 % 90-100 N FIO2 (test code = FIO2A) 40 % ABG DELIVERY (test code = HOLLAND) Vent ABG VENT MODE (test code = MODEA) AC v con ABG VENT RESP RATE (test code = RRA) 16 /MIN ABG TIDAL VOLUME (test code = TVA) 550 ml ABG PEEP (test code = PEEPA) 5 cmH2O Performed by certified crusher and blender operator at [facility] ABG TEMPERATURE (test code = TEMPA) 98.0 F ABG SITE (test code = SITEA) Art line PREDICTED AA GRADIENT (test code = AP) 62 PREDICTED PO2 (test code = OP) 178 a/A RATIO (test code = RATIO) 0.34 TCO2 ARTERIAL (test code = TCO2A) 24 A-A GRADIENT (test code = AAGRADE) 160 [id number] 14:12:00* Test Item Value Reference Range Interpretation Comments GLUBED (test code = GLUBED) 163 MG/DL 70-110 H Performed by certified crusher and blender operator at [facility] BASIC METABOLIC [id number] 13:26:00* Test Item Value Reference Range Interpretation Comments SODIUM (test code = NA) 145 mEq/L 134-147 N POTASSIUM (test code = K) 3.5 mEq/L 3.4-5.0 CHLORIDE (test code = CL) 114 mEq/L 100-108 H CARBON DIOXIDE (test code = CO2) 21 mEq/L 21-33 N ANION GAP (test code = GAP) 14 0-20 N GLUCOSE (test code = GLU) 178 mg/dL 70-110 H BLOOD UREA NITROGEN (test code = BUN) 24 mg/dL 7-18 H GLOMERULAR FILTRATION RATE (test code = GFR) 54.3 70-80 L Units of measure = ml/min/1.73 m2 CREATININE (test code = CREAT) 1.3 mg/dL 0.6-1.3 N CALCIUM (test code = CA) 7.1 mg/dL 8.0-10.5 L COMMENTS: On [id number] 13:26:00* Test Item Value Reference Range Interpretation Comments MAGNESIUM (test code = MAG) 3.90 mg/dL 1.8-2.4 H COMMENTS: On arrivalPROTHROMBIN [id number] 13:12:00* Test Item Value Reference Range Interpretation Comments PROTHROMBIN TIME PATIENT (test code = PTP) 16.1 SECONDS 9.3-12.9 H INTERNATIONAL NORMAL RATIO (test code = INR) 1.4 0.8-1.2 H TARGET INR BY INDICATION Indication INR1. Prophylaxis [...] prevent recurrent infarct). COMMENTS: On arrivalTHROMBOPLASTIN TIME [id number] 13:12:00* Test Item Value Reference Range Interpretation Comments THROMBOPLASTIN TIME PARTIAL (test code = PTT) 30.8 Seconds 25.0-39. 5 N Therapeutic Range: 61.8-83.8 Sec Effective 08/27/2013 COMMENTS: On arrivalISTAT BLOOD [id number] 13:04:00* Test Item Value Reference Range Interpretation Comments ARTERIAL BLOOD GAS PH (test code = PHA) 7.275 7.35-7.45 L ARTERIAL BLOOD GAS PCO2 (test code = PCO2A) 35.1 mmHg 35-45 N ARTERIAL BLOOD GAS PO2 (test code = PO2A) 109 mmHg 80-100 H BICARBONATE TOTAL HCO3 (test code = HCO3) 16.4 mmol/L 22.0-26.0 L BASE EXCESS (test code = MASHA) -11.0 mmol/L -4-4 L ABG O2 SATURATION (test code = SATA) 98 % 90-100 N FIO2 (test code = FIO2A) 50 % ABG DELIVERY (test code = HOLLAND) Vent ABG VENT MODE (test code = MODEA) AC v con ABG VENT RESP RATE (test code = RRA) 16 /MIN ABG TIDAL VOLUME (test code = TVA) 500 ml ABG PEEP (test code = PEEPA) 5 cmH2O Performed by certified crusher and blender operator at [facility] ABG TEMPERATURE (test code = TEMPA) 98.0 F ABG SITE (test code = SITEA) Art line PREDICTED AA GRADIENT (test code = AP) 81 PREDICTED PO2 (test code = OP) 233 a/A RATIO (test code = RATIO) 0.35 POC LACTIC ACID (test code = POCLAC) 4.9 mmol/L 0.9-1.7 HH A-A GRADIENT (test code = AAGRADE) 205 CBC W/AUTO [id number] 13:02:00* Test Item Value Reference Range Interpretation Comments WHITE BLOOD CELL (test code = WBC) 18.64 x10 3/uL 4.5-11.0 H RED BLOOD CELL (test code = RBC) 2.83 x10 6/uL 4.00-5.60 L HEMOGLOBIN (test code = HGB) 8.0 g/dL 12.5-16.9 L HEMATOCRIT (test code = HCT) 25.5 % 37.5-50.7 L MEAN CELL VOLUME (test code = MCV) 90.1 fL 81.0-99.0 N MEAN CELL HGB (test code = MCH) 28.3 pg 27.0-33.0 N MEAN CELL HGB CONCETRATION (test code = MCHC) 31.4 g/dL 33.0-37. 0 L RED CELL DISTRIBUTION WIDTH CV (test code = RDW) 15.7 % 11.5- 14.5 H RED CELL DISTRIBUTION WIDTH SD (test code = RDW-SD) 51.5 fL 37 .0-54.0 N PLATELET COUNT (test code = PLT) 162 x10 3/uL 150-400 N MEAN PLATELET VOLUME (test code = MPV) 10.8 fL 7.0-9.0 H NEUTROPHIL % (test code = NT%) 83.7 % 56.0-77.0 H IMMATURE GRANULOCYTE % (test code = IG%) 1.3 % 0.0-2.0 N LYMPHOCYTE % (test code = LY%) 9.5 % 14.0-32.0 L MONOCYTE % (test code = MO%) 3.5 % 4.8-9.0 L EOSINOPHIL % (test code = EO%) 1.8 % 0.3-3.7 N BASOPHIL % (test code = BA%) 0.2 % 0.0-2.0 N NUCLEATED RBC % (test code = NRBC%) 0.0 % 0-0 N NEUTROPHIL # (test code = NT#) 15.60 x10 3/uL 2.0-7.6 H IMMATURE GRANULOCYTE # (test code = IG#) 0.25 x10 3/uL 0.00-0.03 H LYMPHOCYTE # (test code = LY#) 1.77 x10 3/uL 1.0-3.8 N MONOCYTE # (test code = MO#) 0.65 x10 3/uL 0.1-0.8 N EOSINOPHIL # (test code = EO#) 0.34 x10 3/uL 0.0-0.2 H BASOPHIL # (test code = BA#) 0.03 x10 3/uL 0.0-0.2 N NUCLEATED RBC # (test code = NRBC#) 0.00 x10 3/uL 0.0-0.1 N MANUAL DIFF REQUIRED (test code = MDIFF) NO COMMENTS: On arrivalBLOOD GAS [id number] 12:58:00* Test Item Value Reference Range Interpretation Comments ARTERIAL BLOOD GAS PH (test code = PHA) 7.280 7.35-7.45 L ARTERIAL BLOOD GAS PCO2 (test code = PCO2A) 38.4 mmHg 35-45 N ARTERIAL BLOOD GAS PO2 (test code = PO2A) 92 mmHg 80-100 N BICARBONATE TOTAL HCO3 (test code = HCO3) 18.1 mmol/L 22.0-26.0 L BASE EXCESS (test code = MASHA) -9.0 mmol/L -4-4 L ABG O2 SATURATION (test code = SATA) 96 % 90-100 N FIO2 (test code = FIO2A) 50 % ABG DELIVERY (test code = HOLLAND) Vent ABG VENT MODE (test code = MODEA) AC v con ABG VENT RESP RATE (test code = RRA) 16 /MIN ABG TIDAL VOLUME (test code = TVA) 500 ml ABG PEEP (test code = PEEPA) 5 cmH2O Performed by certified crusher and blender operator at [facility] ABG TEMPERATURE (test code = TEMPA) 98.0 F ABG SITE (test code = SITEA) Art line PREDICTED AA GRADIENT (test code = AP) 80 PREDICTED PO2 (test code = OP) 230 a/A RATIO (test code = RATIO) 0.30 IONIZED CALCIUM (test code = CAIABG) 1.03 mmoL/L 1.15-1.35 L A-A GRADIENT (test code = AAGRADE) 218 SODIUM BEDSIDE (test code = NAB) 143 MEQ/L 134-147 N POTASSIUM BEDSIDE (test code = KBD) 3.8 MEQ/L 4.5-7.0 L [id number] 12:53:00* Test Item Value Reference Range Interpretation Comments GLUBED (test code = GLUBED) 159 MG/DL 70-110 H Performed by certified crusher and blender operator at [facility] PROTHROMBIN [id number] 12:38:00* Test Item Value Reference Range Interpretation Comments PROTHROMBIN TIME PATIENT (test code = PTP) 16.7 SECONDS 9.3-12.9 H INTERNATIONAL NORMAL RATIO (test code = INR) 1.5 0.8-1.2 H TARGET INR BY INDICATION Indication INR1. Prophylaxis [...] Infarction (to prevent recurrent infarct). THROMBOPLASTIN TIME [id number] 12:38:00* Test Item Value Reference Range Interpretation Comments THROMBOPLASTIN TIME PARTIAL (test code = PTT) 34.6 Seconds 25.0-39. 5 Therapeutic Range: 61.8-83.8 Sec Effective 08/27/2013 HGB [id number] 12:11:00* Test Item Value Reference Range Interpretation Comments HEMOGLOBIN (test code = HGB) 8.9 g/dL 12.5-16.9 L HEMATOCRIT (test code = HCT) 27.8 % 37.5-50.7 L PLATELET [id number] 12:11:00* Test Item Value Reference Range Interpretation Comments PLATELET COUNT (test code = PLT) 149 x10 3/uL 150-400 L POC ARTERIAL BLOOD [id number] 11:42:00* Test Item Value Reference Range Interpretation Comments POC ARTERIAL BLOOD GAS PH (test code = POCPHA) 7.348 7.35-7. 45 L POC ARTERIAL BLOOD GAS PCO2 (test code = GNRNSU6L) 34.2 mmHg 35. 0-45 L POC TCO2 ARTERIAL (test code = POCTCO2) 19.8 POC ARTERIAL BLOOD GAS PO2 (test code = TVISB3D) 320.4 mmHg 80-10 0.0 HH POC HCO3 ARTERIAL (test code = CJHEFS9I) 18.8 MMOL/L 22.0-26.0 L POC BASE EXCESS (test code = POCBEA) -6.2 MMOL/L -4.0-4.0 L POC O2 SATURATION (test code = POCO2S) 99.9 % 90-100 N [id number] 11:42:00* Test Item Value Reference Range Interpretation Comments SODIUM (test code = NA/ABG) MEQ/L 134-147 [id number] 11:42:00* Test Item Value Reference Range Interpretation Comments POTASSIUM (test code = K/ABG) MEQ/L 3.4-5.0 [id number] 11:42:00* Test Item Value Reference Range Interpretation Comments CHLORIDE (test code = CL/ABG) MEQ/L 100-108 CREATININE [id number] 11:42:00* Test Item Value Reference Range Interpretation Comments CREATININE ABG (test code = CREAABG) mg/dL 0.8-1.3 [id number] 11:42:00* Test Item Value Reference Range Interpretation Comments HEMOGLOBIN (test code = HGB/ABG) G/DL 12.5-16.9 [id number] 11:42:00* Test Item Value Reference Range Interpretation Comments HEMATOCRIT (test code = HCT/ABG) % 37.5-50.7 POC IONIZED [id number] 11:42:00* Test Item Value Reference Range Interpretation Comments POC IONIZED CALCIUM (test code = POCCA) MMOL/L 1.12-1.32 POC [id number] 11:42:00* Test Item Value Reference Range Interpretation Comments POC GLUCOSE (test code = POCGLU) MG/DL 70-110 POC ARTERIAL BLOOD [id number] 11:42:00* Test Item Value Reference Range Interpretation Comments POC ARTERIAL BLOOD GAS PH (test code = POCPHA) 7.348 7.35-7. 45 L POC ARTERIAL BLOOD GAS PCO2 (test code = QTQBJR0S) 34.2 mmHg 35. 0-45 L POC TCO2 ARTERIAL (test code = POCTCO2) 19.8 POC ARTERIAL BLOOD GAS PO2 (test code = EQSRO7K) 320.4 mmHg 80-10 0.0 HH POC HCO3 ARTERIAL (test code = XBSJLX7B) 18.8 MMOL/L 22.0-26.0 L POC BASE EXCESS (test code = POCBEA) -6.2 MMOL/L -4.0-4.0 L POC O2 SATURATION (test code = POCO2S) 99.9 % 90-100 N [id number] 11:42:00* Test Item Value Reference Range Interpretation Comments SODIUM (test code = NA/ABG) 141 MEQ/L 134-147 N [id number] 11:42:00* Test Item Value Reference Range Interpretation Comments POTASSIUM (test code = K/ABG) MEQ/L 3.4-5.0 [id number] 11:42:00* Test Item Value Reference Range Interpretation Comments CHLORIDE (test code = CL/ABG) MEQ/L 100-108 CREATININE [id number] 11:42:00* Test Item Value Reference Range Interpretation Comments CREATININE ABG (test code = CREAABG) mg/dL 0.8-1.3 [id number] 11:42:00* Test Item Value Reference Range Interpretation Comments HEMOGLOBIN (test code = HGB/ABG) G/DL 12.5-16.9 [id number] 11:42:00* Test Item Value Reference Range Interpretation Comments HEMATOCRIT (test code = HCT/ABG) % 37.5-50.7 POC IONIZED [id number] 11:42:00* Test Item Value Reference Range Interpretation Comments POC IONIZED CALCIUM (test code = POCCA) MMOL/L 1.12-1.32 POC [id number] 11:42:00* Test Item Value Reference Range Interpretation Comments POC GLUCOSE (test code = POCGLU) MG/DL 70-110 POC ARTERIAL BLOOD [id number] 11:42:00* Test Item Value Reference Range Interpretation Comments POC ARTERIAL BLOOD GAS PH (test code = POCPHA) 7.348 7.35-7. 45 L POC ARTERIAL BLOOD GAS PCO2 (test code = SEONTD5W) 34.2 mmHg 35. 0-45 L POC TCO2 ARTERIAL (test code = POCTCO2) 19.8 POC ARTERIAL BLOOD GAS PO2 (test code = GPWID7J) 320.4 mmHg 80-10 0.0 HH POC HCO3 ARTERIAL (test code = IUKCEZ5X) 18.8 MMOL/L 22.0-26.0 L POC BASE EXCESS (test code = POCBEA) -6.2 MMOL/L -4.0-4.0 L POC O2 SATURATION (test code = POCO2S) 99.9 % 90-100 N [id number] 11:42:00* Test Item Value Reference Range Interpretation Comments SODIUM (test code = NA/ABG) 141 MEQ/L 134-147 N [id number] 11:42:00* Test Item Value Reference Range Interpretation Comments POTASSIUM (test code = K/ABG) 3.7 MEQ/L 3.4-5.0 N [id number] 11:42:00* Test Item Value Reference Range Interpretation Comments CHLORIDE (test code = CL/ABG) MEQ/L 100-108 CREATININE [id number] 11:42:00* Test Item Value Reference Range Interpretation Comments CREATININE ABG (test code = CREAABG) mg/dL 0.8-1.3 [id number] 11:42:00* Test Item Value Reference Range Interpretation Comments HEMOGLOBIN (test code = HGB/ABG) G/DL 12.5-16.9 [id number] 11:42:00* Test Item Value Reference Range Interpretation Comments HEMATOCRIT (test code = HCT/ABG) % 37.5-50.7 POC IONIZED [id number] 11:42:00* Test Item Value Reference Range Interpretation Comments POC IONIZED CALCIUM (test code = POCCA) MMOL/L 1.12-1.32 POC [id number] 11:42:00* Test Item Value Reference Range Interpretation Comments POC GLUCOSE (test code = POCGLU) MG/DL 70-110 POC ARTERIAL BLOOD [id number] 11:42:00* Test Item Value Reference Range Interpretation Comments POC ARTERIAL BLOOD GAS PH (test code = POCPHA) 7.348 7.35-7. 45 L POC ARTERIAL BLOOD GAS PCO2 (test code = ULFCIE0H) 34.2 mmHg 35. 0-45 L POC TCO2 ARTERIAL (test code = POCTCO2) 19.8 POC ARTERIAL BLOOD GAS PO2 (test code = GDUER8M) 320.4 mmHg 80-10 0.0 HH POC HCO3 ARTERIAL (test code = FJZDIG9Q) 18.8 MMOL/L 22.0-26.0 L POC BASE EXCESS (test code = POCBEA) -6.2 MMOL/L -4.0-4.0 L POC O2 SATURATION (test code = POCO2S) 99.9 % 90-100 N [id number] 11:42:00* Test Item Value Reference Range Interpretation Comments SODIUM (test code = NA/ABG) 141 MEQ/L 134-147 N [id number] 11:42:00* Test Item Value Reference Range Interpretation Comments POTASSIUM (test code = K/ABG) 3.7 MEQ/L 3.4-5.0 N [id number] 11:42:00* Test Item Value Reference Range Interpretation Comments CHLORIDE (test code = CL/ABG) MEQ/L 100-108 CREATININE [id number] 11:42:00* Test Item Value Reference Range Interpretation Comments CREATININE ABG (test code = CREAABG) mg/dL 0.8-1.3 [id number] 11:42:00* Test Item Value Reference Range Interpretation Comments HEMOGLOBIN (test code = HGB/ABG) G/DL 12.5-16.9 [id number] 11:42:00* Test Item Value Reference Range Interpretation Comments HEMATOCRIT (test code = HCT/ABG) % 37.5-50.7 POC IONIZED [id number] 11:42:00* Test Item Value Reference Range Interpretation Comments POC IONIZED CALCIUM (test code = POCCA) 1.28 MMOL/L 1.12-1.32 N POC [id number] 11:42:00* Test Item Value Reference Range Interpretation Comments POC GLUCOSE (test code = POCGLU) MG/DL 70-110 POC ARTERIAL BLOOD [id number] 11:42:00* Test Item Value Reference Range Interpretation Comments POC ARTERIAL BLOOD GAS PH (test code = POCPHA) 7.348 7.35-7. 45 L POC ARTERIAL BLOOD GAS PCO2 (test code = GVSUDM0I) 34.2 mmHg 35. 0-45 L POC TCO2 ARTERIAL (test code = POCTCO2) 19.8 POC ARTERIAL BLOOD GAS PO2 (test code = FQFUJ4G) 320.4 mmHg 80-10 0.0 HH POC HCO3 ARTERIAL (test code = WWOFPX1H) 18.8 MMOL/L 22.0-26.0 L POC BASE EXCESS (test code = POCBEA) -6.2 MMOL/L -4.0-4.0 L POC O2 SATURATION (test code = POCO2S) 99.9 % 90-100 N [id number] 11:42:00* Test Item Value Reference Range Interpretation Comments SODIUM (test code = NA/ABG) 141 MEQ/L 134-147 N [id number] 11:42:00* Test Item Value Reference Range Interpretation Comments POTASSIUM (test code = K/ABG) 3.7 MEQ/L 3.4-5.0 N [id number] 11:42:00* Test Item Value Reference Range Interpretation Comments CHLORIDE (test code = CL/ABG) MEQ/L 100-108 CREATININE [id number] 11:42:00* Test Item Value Reference Range Interpretation Comments CREATININE ABG (test code = CREAABG) mg/dL 0.8-1.3 [id number] 11:42:00* Test Item Value Reference Range Interpretation Comments HEMOGLOBIN (test code = HGB/ABG) G/DL 12.5-16.9 [id number] 11:42:00* Test Item Value Reference Range Interpretation Comments HEMATOCRIT (test code = HCT/ABG) % 37.5-50.7 POC IONIZED [id number] 11:42:00* Test Item Value Reference Range Interpretation Comments POC IONIZED CALCIUM (test code = POCCA) 1.28 MMOL/L 1.12-1.32 N POC [id number] 11:42:00* Test Item Value Reference Range Interpretation Comments POC GLUCOSE (test code = POCGLU) 226 MG/DL 70-110 H POC ARTERIAL BLOOD [id number] 11:42:00* Test Item Value Reference Range Interpretation Comments POC ARTERIAL BLOOD GAS PH (test code = POCPHA) 7.348 7.35-7. 45 L POC ARTERIAL BLOOD GAS PCO2 (test code = FNHUGZ6C) 34.2 mmHg 35. 0-45 L POC TCO2 ARTERIAL (test code = POCTCO2) 19.8 POC ARTERIAL BLOOD GAS PO2 (test code = ZUQIW3X) 320.4 mmHg 80-10 0.0 HH POC HCO3 ARTERIAL (test code = ZQIRCX0O) 18.8 MMOL/L 22.0-26.0 L POC BASE EXCESS (test code = POCBEA) -6.2 MMOL/L -4.0-4.0 L POC O2 SATURATION (test code = POCO2S) 99.9 % 90-100 N [id number] 11:42:00* Test Item Value Reference Range Interpretation Comments SODIUM (test code = NA/ABG) 141 MEQ/L 134-147 N [id number] 11:42:00* Test Item Value Reference Range Interpretation Comments POTASSIUM (test code = K/ABG) 3.7 MEQ/L 3.4-5.0 N [id number] 11:42:00* Test Item Value Reference Range Interpretation Comments CHLORIDE (test code = CL/ABG) MEQ/L 100-108 CREATININE [id number] 11:42:00* Test Item Value Reference Range Interpretation Comments CREATININE ABG (test code = CREAABG) mg/dL 0.8-1.3 [id number] 11:42:00* Test Item Value Reference Range Interpretation Comments HEMOGLOBIN (test code = HGB/ABG) G/DL 12.5-16.9 [id number] 11:42:00* Test Item Value Reference Range Interpretation Comments HEMATOCRIT (test code = HCT/ABG) 25 % 37.5-50.7 L POC IONIZED [id number] 11:42:00* Test Item Value Reference Range Interpretation Comments POC IONIZED CALCIUM (test code = POCCA) 1.28 MMOL/L 1.12-1.32 N POC [id number] 11:42:00* Test Item Value Reference Range Interpretation Comments POC GLUCOSE (test code = POCGLU) 226 MG/DL 70-110 H POC ARTERIAL BLOOD [id number] 11:42:00* Test Item Value Reference Range Interpretation Comments POC ARTERIAL BLOOD GAS PH (test code = POCPHA) 7.348 7.35-7. 45 L POC ARTERIAL BLOOD GAS PCO2 (test code = OAIMDY2P) 34.2 mmHg 35. 0-45 L POC TCO2 ARTERIAL (test code = POCTCO2) 19.8 POC ARTERIAL BLOOD GAS PO2 (test code = SURCG0N) 320.4 mmHg 80-10 0.0 HH POC HCO3 ARTERIAL (test code = SYXNGL8I) 18.8 MMOL/L 22.0-26.0 L POC BASE EXCESS (test code = POCBEA) -6.2 MMOL/L -4.0-4.0 L POC O2 SATURATION (test code = POCO2S) 99.9 % 90-100 N [id number] 11:42:00* Test Item Value Reference Range Interpretation Comments SODIUM (test code = NA/ABG) 141 MEQ/L 134-147 N [id number] 11:42:00* Test Item Value Reference Range Interpretation Comments POTASSIUM (test code = K/ABG) 3.7 MEQ/L 3.4-5.0 N [id number] 11:42:00* Test Item Value Reference Range Interpretation Comments CHLORIDE (test code = CL/ABG) MEQ/L 100-108 CREATININE [id number] 11:42:00* Test Item Value Reference Range Interpretation Comments CREATININE ABG (test code = CREAABG) mg/dL 0.8-1.3 [id number] 11:42:00* Test Item Value Reference Range Interpretation Comments HEMOGLOBIN (test code = HGB/ABG) 8.6 G/DL 12.5-16.9 L [id number] 11:42:00* Test Item Value Reference Range Interpretation Comments HEMATOCRIT (test code = HCT/ABG) 25 % 37.5-50.7 L POC IONIZED [id number] 11:42:00* Test Item Value Reference Range Interpretation Comments POC IONIZED CALCIUM (test code = POCCA) 1.28 MMOL/L 1.12-1.32 N POC [id number] 11:42:00* Test Item Value Reference Range Interpretation Comments POC GLUCOSE (test code = POCGLU) 226 MG/DL 70-110 H POC ARTERIAL BLOOD [id number] 11:42:00* Test Item Value Reference Range Interpretation Comments POC ARTERIAL BLOOD GAS PH (test code = POCPHA) 7.348 7.35-7. 45 L POC ARTERIAL BLOOD GAS PCO2 (test code = SEYMYH0D) 34.2 mmHg 35. 0-45 L POC TCO2 ARTERIAL (test code = POCTCO2) 19.8 POC ARTERIAL BLOOD GAS PO2 (test code = IFJGQ0S) 320.4 mmHg 80-10 0.0 HH POC HCO3 ARTERIAL (test code = JNVZYQ4C) 18.8 MMOL/L 22.0-26.0 L POC BASE EXCESS (test code = POCBEA) -6.2 MMOL/L -4.0-4.0 L POC O2 SATURATION (test code = POCO2S) 99.9 % 90-100 N [id number] 11:42:00* Test Item Value Reference Range Interpretation Comments SODIUM (test code = NA/ABG) 141 MEQ/L 134-147 N [id number] 11:42:00* Test Item Value Reference Range Interpretation Comments POTASSIUM (test code = K/ABG) 3.7 MEQ/L 3.4-5.0 N [id number] 11:42:00* Test Item Value Reference Range Interpretation Comments CHLORIDE (test code = CL/ABG) 109 MEQ/L 100-108 H CREATININE [id number] 11:42:00* Test Item Value Reference Range Interpretation Comments CREATININE ABG (test code = CREAABG) mg/dL 0.8-1.3 [id number] 11:42:00* Test Item Value Reference Range Interpretation Comments HEMOGLOBIN (test code = HGB/ABG) 8.6 G/DL 12.5-16.9 L [id number] 11:42:00* Test Item Value Reference Range Interpretation Comments HEMATOCRIT (test code = HCT/ABG) 25 % 37.5-50.7 L POC IONIZED [id number] 11:42:00* Test Item Value Reference Range Interpretation Comments POC IONIZED CALCIUM (test code = POCCA) 1.28 MMOL/L 1.12-1.32 N POC [id number] 11:42:00* Test Item Value Reference Range Interpretation Comments POC GLUCOSE (test code = POCGLU) 226 MG/DL 70-110 H POC ARTERIAL BLOOD [id number] 11:42:00* Test Item Value Reference Range Interpretation Comments POC ARTERIAL BLOOD GAS PH (test code = POCPHA) 7.348 7.35-7. 45 L POC ARTERIAL BLOOD GAS PCO2 (test code = XFFFVQ4Y) 34.2 mmHg 35. 0-45 L POC TCO2 ARTERIAL (test code = POCTCO2) 19.8 POC ARTERIAL BLOOD GAS PO2 (test code = URMJE9L) 320.4 mmHg 80-10 0.0 HH POC HCO3 ARTERIAL (test code = MYWTOV8S) 18.8 MMOL/L 22.0-26.0 L POC BASE EXCESS (test code = POCBEA) -6.2 MMOL/L -4.0-4.0 L POC O2 SATURATION (test code = POCO2S) 99.9 % 90-100 N [id number] 11:42:00* Test Item Value Reference Range Interpretation Comments SODIUM (test code = NA/ABG) 141 MEQ/L 134-147 N [id number] 11:42:00* Test Item Value Reference Range Interpretation Comments POTASSIUM (test code = K/ABG) 3.7 MEQ/L 3.4-5.0 N [id number] 11:42:00* Test Item Value Reference Range Interpretation Comments CHLORIDE (test code = CL/ABG) 109 MEQ/L 100-108 H CREATININE [id number] 11:42:00* Test Item Value Reference Range Interpretation Comments CREATININE ABG (test code = CREAABG) 1.0 mg/dL 0.8-1.3 N [id number] 11:42:00* Test Item Value Reference Range Interpretation Comments HEMOGLOBIN (test code = HGB/ABG) 8.6 G/DL 12.5-16.9 L [id number] 11:42:00* Test Item Value Reference Range Interpretation Comments HEMATOCRIT (test code = HCT/ABG) 25 % 37.5-50.7 L POC IONIZED [id number] 11:42:00* Test Item Value Reference Range Interpretation Comments POC IONIZED CALCIUM (test code = POCCA) 1.28 MMOL/L 1.12-1.32 N POC [id number] 11:42:00* Test Item Value Reference Range Interpretation Comments POC GLUCOSE (test code = POCGLU) 226 MG/DL 70-110 H POC ARTERIAL BLOOD [id number] 11:02:00* Test Item Value Reference Range Interpretation Comments POC ARTERIAL BLOOD GAS PH (test code = POCPHA) 7.366 7.35-7. 45 N POC ARTERIAL BLOOD GAS PCO2 (test code = PRCTNU9O) 31.3 mmHg 35. 0-45 L POC TCO2 ARTERIAL (test code = POCTCO2) 18.9 POC ARTERIAL BLOOD GAS PO2 (test code = SRGJU9P) 226.3 mmHg 80-10 0.0 HH POC HCO3 ARTERIAL (test code = ZSZROO6O) 18.0 MMOL/L 22.0-26.0 L POC BASE EXCESS (test code = POCBEA) -6.7 MMOL/L -4.0-4.0 L POC O2 SATURATION (test code = POCO2S) 99.8 % 90-100 N [id number] 11:02:00* Test Item Value Reference Range Interpretation Comments SODIUM (test code = NA/ABG) MEQ/L 134-147 [id number] 11:02:00* Test Item Value Reference Range Interpretation Comments POTASSIUM (test code = K/ABG) MEQ/L 3.4-5.0 [id number] 11:02:00* Test Item Value Reference Range Interpretation Comments CHLORIDE (test code = CL/ABG) MEQ/L 100-108 CREATININE [id number] 11:02:00* Test Item Value Reference Range Interpretation Comments CREATININE ABG (test code = CREAABG) mg/dL 0.8-1.3 [id number] 11:02:00* Test Item Value Reference Range Interpretation Comments HEMOGLOBIN (test code = HGB/ABG) G/DL 12.5-16.9 [id number] 11:02:00* Test Item Value Reference Range Interpretation Comments HEMATOCRIT (test code = HCT/ABG) % 37.5-50.7 POC IONIZED [id number] 11:02:00* Test Item Value Reference Range Interpretation Comments POC IONIZED CALCIUM (test code = POCCA) MMOL/L 1.12-1.32 POC [id number] 11:02:00* Test Item Value Reference Range Interpretation Comments POC GLUCOSE (test code = POCGLU) MG/DL 70-110 POC ARTERIAL BLOOD [id number] 11:02:00* Test Item Value Reference Range Interpretation Comments POC ARTERIAL BLOOD GAS PH (test code = POCPHA) 7.366 7.35-7. 45 N POC ARTERIAL BLOOD GAS PCO2 (test code = KWGBWQ0X) 31.3 mmHg 35. 0-45 L POC TCO2 ARTERIAL (test code = POCTCO2) 18.9 POC ARTERIAL BLOOD GAS PO2 (test code = IZUQV6C) 226.3 mmHg 80-10 0.0 HH POC HCO3 ARTERIAL (test code = CSXPGO2K) 18.0 MMOL/L 22.0-26.0 L POC BASE EXCESS (test code = POCBEA) -6.7 MMOL/L -4.0-4.0 L POC O2 SATURATION (test code = POCO2S) 99.8 % 90-100 N [id number] 11:02:00* Test Item Value Reference Range Interpretation Comments SODIUM (test code = NA/ABG) 138 MEQ/L 134-147 N [id number] 11:02:00* Test Item Value Reference Range Interpretation Comments POTASSIUM (test code = K/ABG) MEQ/L 3.4-5.0 [id number] 11:02:00* Test Item Value Reference Range Interpretation Comments CHLORIDE (test code = CL/ABG) MEQ/L 100-108 CREATININE [id number] 11:02:00* Test Item Value Reference Range Interpretation Comments CREATININE ABG (test code = CREAABG) mg/dL 0.8-1.3 [id number] 11:02:00* Test Item Value Reference Range Interpretation Comments HEMOGLOBIN (test code = HGB/ABG) G/DL 12.5-16.9 [id number] 11:02:00* Test Item Value Reference Range Interpretation Comments HEMATOCRIT (test code = HCT/ABG) % 37.5-50.7 POC IONIZED [id number] 11:02:00* Test Item Value Reference Range Interpretation Comments POC IONIZED CALCIUM (test code = POCCA) MMOL/L 1.12-1.32 POC [id number] 11:02:00* Test Item Value Reference Range Interpretation Comments POC GLUCOSE (test code = POCGLU) MG/DL 70-110 POC ARTERIAL BLOOD [id number] 11:02:00* Test Item Value Reference Range Interpretation Comments POC ARTERIAL BLOOD GAS PH (test code = POCPHA) 7.366 7.35-7. 45 N POC ARTERIAL BLOOD GAS PCO2 (test code = RYRXYJ4J) 31.3 mmHg 35. 0-45 L POC TCO2 ARTERIAL (test code = POCTCO2) 18.9 POC ARTERIAL BLOOD GAS PO2 (test code = TMPYO7D) 226.3 mmHg 80-10 0.0 HH POC HCO3 ARTERIAL (test code = HVJQHT4P) 18.0 MMOL/L 22.0-26.0 L POC BASE EXCESS (test code = POCBEA) -6.7 MMOL/L -4.0-4.0 L POC O2 SATURATION (test code = POCO2S) 99.8 % 90-100 N [id number] 11:02:00* Test Item Value Reference Range Interpretation Comments SODIUM (test code = NA/ABG) 138 MEQ/L 134-147 N [id number] 11:02:00* Test Item Value Reference Range Interpretation Comments POTASSIUM (test code = K/ABG) 4.5 MEQ/L 3.4-5.0 N [id number] 11:02:00* Test Item Value Reference Range Interpretation Comments CHLORIDE (test code = CL/ABG) MEQ/L 100-108 CREATININE [id number] 11:02:00* Test Item Value Reference Range Interpretation Comments CREATININE ABG (test code = CREAABG) mg/dL 0.8-1.3 [id number] 11:02:00* Test Item Value Reference Range Interpretation Comments HEMOGLOBIN (test code = HGB/ABG) G/DL 12.5-16.9 [id number] 11:02:00* Test Item Value Reference Range Interpretation Comments HEMATOCRIT (test code = HCT/ABG) % 37.5-50.7 POC IONIZED [id number] 11:02:00* Test Item Value Reference Range Interpretation Comments POC IONIZED CALCIUM (test code = POCCA) MMOL/L 1.12-1.32 POC [id number] 11:02:00* Test Item Value Reference Range Interpretation Comments POC GLUCOSE (test code = POCGLU) MG/DL 70-110 POC ARTERIAL BLOOD [id number] 11:02:00* Test Item Value Reference Range Interpretation Comments POC ARTERIAL BLOOD GAS PH (test code = POCPHA) 7.366 7.35-7. 45 N POC ARTERIAL BLOOD GAS PCO2 (test code = EKVAJM1J) 31.3 mmHg 35. 0-45 L POC TCO2 ARTERIAL (test code = POCTCO2) 18.9 POC ARTERIAL BLOOD GAS PO2 (test code = SRGVL4N) 226.3 mmHg 80-10 0.0 HH POC HCO3 ARTERIAL (test code = SJDEXJ2A) 18.0 MMOL/L 22.0-26.0 L POC BASE EXCESS (test code = POCBEA) -6.7 MMOL/L -4.0-4.0 L POC O2 SATURATION (test code = POCO2S) 99.8 % 90-100 N [id number] 11:02:00* Test Item Value Reference Range Interpretation Comments SODIUM (test code = NA/ABG) 138 MEQ/L 134-147 N [id number] 11:02:00* Test Item Value Reference Range Interpretation Comments POTASSIUM (test code = K/ABG) 4.5 MEQ/L 3.4-5.0 N [id number] 11:02:00* Test Item Value Reference Range Interpretation Comments CHLORIDE (test code = CL/ABG) MEQ/L 100-108 CREATININE [id number] 11:02:00* Test Item Value Reference Range Interpretation Comments CREATININE ABG (test code = CREAABG) mg/dL 0.8-1.3 [id number] 11:02:00* Test Item Value Reference Range Interpretation Comments HEMOGLOBIN (test code = HGB/ABG) G/DL 12.5-16.9 [id number] 11:02:00* Test Item Value Reference Range Interpretation Comments HEMATOCRIT (test code = HCT/ABG) % 37.5-50.7 POC IONIZED [id number] 11:02:00* Test Item Value Reference Range Interpretation Comments POC IONIZED CALCIUM (test code = POCCA) 1.16 MMOL/L 1.12-1.32 N POC [id number] 11:02:00* Test Item Value Reference Range Interpretation Comments POC GLUCOSE (test code = POCGLU) MG/DL 70-110 POC ARTERIAL BLOOD [id number] 11:02:00* Test Item Value Reference Range Interpretation Comments POC ARTERIAL BLOOD GAS PH (test code = POCPHA) 7.366 7.35-7. 45 N POC ARTERIAL BLOOD GAS PCO2 (test code = ONQSPD2Q) 31.3 mmHg 35. 0-45 L POC TCO2 ARTERIAL (test code = POCTCO2) 18.9 POC ARTERIAL BLOOD GAS PO2 (test code = IMBRK5F) 226.3 mmHg 80-10 0.0 HH POC HCO3 ARTERIAL (test code = KNAESB6C) 18.0 MMOL/L 22.0-26.0 L POC BASE EXCESS (test code = POCBEA) -6.7 MMOL/L -4.0-4.0 L POC O2 SATURATION (test code = POCO2S) 99.8 % 90-100 N [id number] 11:02:00* Test Item Value Reference Range Interpretation Comments SODIUM (test code = NA/ABG) 138 MEQ/L 134-147 N [id number] 11:02:00* Test Item Value Reference Range Interpretation Comments POTASSIUM (test code = K/ABG) 4.5 MEQ/L 3.4-5.0 N [id number] 11:02:00* Test Item Value Reference Range Interpretation Comments CHLORIDE (test code = CL/ABG) MEQ/L 100-108 CREATININE [id number] 11:02:00* Test Item Value Reference Range Interpretation Comments CREATININE ABG (test code = CREAABG) mg/dL 0.8-1.3 [id number] 11:02:00* Test Item Value Reference Range Interpretation Comments HEMOGLOBIN (test code = HGB/ABG) G/DL 12.5-16.9 [id number] 11:02:00* Test Item Value Reference Range Interpretation Comments HEMATOCRIT (test code = HCT/ABG) % 37.5-50.7 POC IONIZED [id number] 11:02:00* Test Item Value Reference Range Interpretation Comments POC IONIZED CALCIUM (test code = POCCA) 1.16 MMOL/L 1.12-1.32 N POC [id number] 11:02:00* Test Item Value Reference Range Interpretation Comments POC GLUCOSE (test code = POCGLU) 240 MG/DL 70-110 H POC ARTERIAL BLOOD [id number] 11:02:00* Test Item Value Reference Range Interpretation Comments POC ARTERIAL BLOOD GAS PH (test code = POCPHA) 7.366 7.35-7. 45 N POC ARTERIAL BLOOD GAS PCO2 (test code = BMAZPJ1I) 31.3 mmHg 35. 0-45 L POC TCO2 ARTERIAL (test code = POCTCO2) 18.9 POC ARTERIAL BLOOD GAS PO2 (test code = LNDJT7O) 226.3 mmHg 80-10 0.0 HH POC HCO3 ARTERIAL (test code = DHCDKE9G) 18.0 MMOL/L 22.0-26.0 L POC BASE EXCESS (test code = POCBEA) -6.7 MMOL/L -4.0-4.0 L POC O2 SATURATION (test code = POCO2S) 99.8 % 90-100 N [id number] 11:02:00* Test Item Value Reference Range Interpretation Comments SODIUM (test code = NA/ABG) 138 MEQ/L 134-147 N [id number] 11:02:00* Test Item Value Reference Range Interpretation Comments POTASSIUM (test code = K/ABG) 4.5 MEQ/L 3.4-5.0 N [id number] 11:02:00* Test Item Value Reference Range Interpretation Comments CHLORIDE (test code = CL/ABG) MEQ/L 100-108 CREATININE [id number] 11:02:00* Test Item Value Reference Range Interpretation Comments CREATININE ABG (test code = CREAABG) mg/dL 0.8-1.3 [id number] 11:02:00* Test Item Value Reference Range Interpretation Comments HEMOGLOBIN (test code = HGB/ABG) G/DL 12.5-16.9 [id number] 11:02:00* Test Item Value Reference Range Interpretation Comments HEMATOCRIT (test code = HCT/ABG) 22 % 37.5-50.7 L POC IONIZED [id number] 11:02:00* Test Item Value Reference Range Interpretation Comments POC IONIZED CALCIUM (test code = POCCA) 1.16 MMOL/L 1.12-1.32 N POC [id number] 11:02:00* Test Item Value Reference Range Interpretation Comments POC GLUCOSE (test code = POCGLU) 240 MG/DL 70-110 H POC ARTERIAL BLOOD [id number] 11:02:00* Test Item Value Reference Range Interpretation Comments POC ARTERIAL BLOOD GAS PH (test code = POCPHA) 7.366 7.35-7. 45 N POC ARTERIAL BLOOD GAS PCO2 (test code = WPYUTJ7A) 31.3 mmHg 35. 0-45 L POC TCO2 ARTERIAL (test code = POCTCO2) 18.9 POC ARTERIAL BLOOD GAS PO2 (test code = WRAYX0J) 226.3 mmHg 80-10 0.0 HH POC HCO3 ARTERIAL (test code = ZWARPM6O) 18.0 MMOL/L 22.0-26.0 L POC BASE EXCESS (test code = POCBEA) -6.7 MMOL/L -4.0-4.0 L POC O2 SATURATION (test code = POCO2S) 99.8 % 90-100 N [id number] 11:02:00* Test Item Value Reference Range Interpretation Comments SODIUM (test code = NA/ABG) 138 MEQ/L 134-147 N [id number] 11:02:00* Test Item Value Reference Range Interpretation Comments POTASSIUM (test code = K/ABG) 4.5 MEQ/L 3.4-5.0 N [id number] 11:02:00* Test Item Value Reference Range Interpretation Comments CHLORIDE (test code = CL/ABG) MEQ/L 100-108 CREATININE [id number] 11:02:00* Test Item Value Reference Range Interpretation Comments CREATININE ABG (test code = CREAABG) mg/dL 0.8-1.3 [id number] 11:02:00* Test Item Value Reference Range Interpretation Comments HEMOGLOBIN (test code = HGB/ABG) 7.6 G/DL 12.5-16.9 L [id number] 11:02:00* Test Item Value Reference Range Interpretation Comments HEMATOCRIT (test code = HCT/ABG) 22 % 37.5-50.7 L POC IONIZED [id number] 11:02:00* Test Item Value Reference Range Interpretation Comments POC IONIZED CALCIUM (test code = POCCA) 1.16 MMOL/L 1.12-1.32 N POC [id number] 11:02:00* Test Item Value Reference Range Interpretation Comments POC GLUCOSE (test code = POCGLU) 240 MG/DL 70-110 H POC ARTERIAL BLOOD [id number] 11:02:00* Test Item Value Reference Range Interpretation Comments POC ARTERIAL BLOOD GAS PH (test code = POCPHA) 7.366 7.35-7. 45 N POC ARTERIAL BLOOD GAS PCO2 (test code = UKLYSR9J) 31.3 mmHg 35. 0-45 L POC TCO2 ARTERIAL (test code = POCTCO2) 18.9 POC ARTERIAL BLOOD GAS PO2 (test code = DPEIC4V) 226.3 mmHg 80-10 0.0 HH POC HCO3 ARTERIAL (test code = TMUSFR8S) 18.0 MMOL/L 22.0-26.0 L POC BASE EXCESS (test code = POCBEA) -6.7 MMOL/L -4.0-4.0 L POC O2 SATURATION (test code = POCO2S) 99.8 % 90-100 N [id number] 11:02:00* Test Item Value Reference Range Interpretation Comments SODIUM (test code = NA/ABG) 138 MEQ/L 134-147 N [id number] 11:02:00* Test Item Value Reference Range Interpretation Comments POTASSIUM (test code = K/ABG) 4.5 MEQ/L 3.4-5.0 N [id number] 11:02:00* Test Item Value Reference Range Interpretation Comments CHLORIDE (test code = CL/ABG) 104 MEQ/L 100-108 N CREATININE [id number] 11:02:00* Test Item Value Reference Range Interpretation Comments CREATININE ABG (test code = CREAABG) mg/dL 0.8-1.3 [id number] 11:02:00* Test Item Value Reference Range Interpretation Comments HEMOGLOBIN (test code = HGB/ABG) 7.6 G/DL 12.5-16.9 L [id number] 11:02:00* Test Item Value Reference Range Interpretation Comments HEMATOCRIT (test code = HCT/ABG) 22 % 37.5-50.7 L POC IONIZED [id number] 11:02:00* Test Item Value Reference Range Interpretation Comments POC IONIZED CALCIUM (test code = POCCA) 1.16 MMOL/L 1.12-1.32 N POC [id number] 11:02:00* Test Item Value Reference Range Interpretation Comments POC GLUCOSE (test code = POCGLU) 240 MG/DL 70-110 H POC ARTERIAL BLOOD [id number] 11:02:00* Test Item Value Reference Range Interpretation Comments POC ARTERIAL BLOOD GAS PH (test code = POCPHA) 7.366 7.35-7. 45 N POC ARTERIAL BLOOD GAS PCO2 (test code = IBUDUL1D) 31.3 mmHg 35. 0-45 L POC TCO2 ARTERIAL (test code = POCTCO2) 18.9 POC ARTERIAL BLOOD GAS PO2 (test code = ABKJQ8N) 226.3 mmHg 80-10 0.0 HH POC HCO3 ARTERIAL (test code = BIGPJC4S) 18.0 MMOL/L 22.0-26.0 L POC BASE EXCESS (test code = POCBEA) -6.7 MMOL/L -4.0-4.0 L POC O2 SATURATION (test code = POCO2S) 99.8 % 90-100 N [id number] 11:02:00* Test Item Value Reference Range Interpretation Comments SODIUM (test code = NA/ABG) 138 MEQ/L 134-147 N [id number] 11:02:00* Test Item Value Reference Range Interpretation Comments POTASSIUM (test code = K/ABG) 4.5 MEQ/L 3.4-5.0 N [id number] 11:02:00* Test Item Value Reference Range Interpretation Comments CHLORIDE (test code = CL/ABG) 104 MEQ/L 100-108 N CREATININE [id number] 11:02:00* Test Item Value Reference Range Interpretation Comments CREATININE ABG (test code = CREAABG) 1.0 mg/dL 0.8-1.3 N [id number] 11:02:00* Test Item Value Reference Range Interpretation Comments HEMOGLOBIN (test code = HGB/ABG) 7.6 G/DL 12.5-16.9 L [id number] 11:02:00* Test Item Value Reference Range Interpretation Comments HEMATOCRIT (test code = HCT/ABG) 22 % 37.5-50.7 L POC IONIZED [id number] 11:02:00* Test Item Value Reference Range Interpretation Comments POC IONIZED CALCIUM (test code = POCCA) 1.16 MMOL/L 1.12-1.32 N POC [id number] 11:02:00* Test Item Value Reference Range Interpretation Comments POC GLUCOSE (test code = POCGLU) 240 MG/DL 70-110 H POC ARTERIAL BLOOD [id number] 10:28:00* Test Item Value Reference Range Interpretation Comments POC ARTERIAL BLOOD GAS PH (test code = POCPHA) 7.433 7.35-7. 45 N POC ARTERIAL BLOOD GAS PCO2 (test code = SMLJDS1E) 32.7 mmHg 35. 0-45 L POC TCO2 ARTERIAL (test code = POCTCO2) 22.8 POC ARTERIAL BLOOD GAS PO2 (test code = ANIKR0J) 422.1 mmHg 80-10 0.0 HH POC HCO3 ARTERIAL (test code = GBNUDA7P) 21.8 MMOL/L 22.0-26.0 L POC BASE EXCESS (test code = POCBEA) -2.2 MMOL/L -4.0-4.0 N POC O2 SATURATION (test code = POCO2S) 100.0 % 90-100 N [id number] 10:28:00* Test Item Value Reference Range Interpretation Comments SODIUM (test code = NA/ABG) MEQ/L 134-147 [id number] 10:28:00* Test Item Value Reference Range Interpretation Comments POTASSIUM (test code = K/ABG) MEQ/L 3.4-5.0 [id number] 10:28:00* Test Item Value Reference Range Interpretation Comments CHLORIDE (test code = CL/ABG) MEQ/L 100-108 CREATININE [id number] 10:28:00* Test Item Value Reference Range Interpretation Comments CREATININE ABG (test code = CREAABG) mg/dL 0.8-1.3 [id number] 10:28:00* Test Item Value Reference Range Interpretation Comments HEMOGLOBIN (test code = HGB/ABG) G/DL 12.5-16.9 [id number] 10:28:00* Test Item Value Reference Range Interpretation Comments HEMATOCRIT (test code = HCT/ABG) % 37.5-50.7 POC IONIZED [id number] 10:28:00* Test Item Value Reference Range Interpretation Comments POC IONIZED CALCIUM (test code = POCCA) MMOL/L 1.12-1.32 POC [id number] 10:28:00* Test Item Value Reference Range Interpretation Comments POC GLUCOSE (test code = POCGLU) MG/DL 70-110 POC ARTERIAL BLOOD [id number] 10:28:00* Test Item Value Reference Range Interpretation Comments POC ARTERIAL BLOOD GAS PH (test code = POCPHA) 7.433 7.35-7. 45 N POC ARTERIAL BLOOD GAS PCO2 (test code = WLGPFP1O) 32.7 mmHg 35. 0-45 L POC TCO2 ARTERIAL (test code = POCTCO2) 22.8 POC ARTERIAL BLOOD GAS PO2 (test code = ZPAGP7W) 422.1 mmHg 80-10 0.0 HH POC HCO3 ARTERIAL (test code = AQTCTP1I) 21.8 MMOL/L 22.0-26.0 L POC BASE EXCESS (test code = POCBEA) -2.2 MMOL/L -4.0-4.0 N POC O2 SATURATION (test code = POCO2S) 100.0 % 90-100 N [id number] 10:28:00* Test Item Value Reference Range Interpretation Comments SODIUM (test code = NA/ABG) 138 MEQ/L 134-147 N [id number] 10:28:00* Test Item Value Reference Range Interpretation Comments POTASSIUM (test code = K/ABG) MEQ/L 3.4-5.0 [id number] 10:28:00* Test Item Value Reference Range Interpretation Comments CHLORIDE (test code = CL/ABG) MEQ/L 100-108 CREATININE [id number] 10:28:00* Test Item Value Reference Range Interpretation Comments CREATININE ABG (test code = CREAABG) mg/dL 0.8-1.3 [id number] 10:28:00* Test Item Value Reference Range Interpretation Comments HEMOGLOBIN (test code = HGB/ABG) G/DL 12.5-16.9 [id number] 10:28:00* Test Item Value Reference Range Interpretation Comments HEMATOCRIT (test code = HCT/ABG) % 37.5-50.7 POC IONIZED [id number] 10:28:00* Test Item Value Reference Range Interpretation Comments POC IONIZED CALCIUM (test code = POCCA) MMOL/L 1.12-1.32 POC [id number] 10:28:00* Test Item Value Reference Range Interpretation Comments POC GLUCOSE (test code = POCGLU) MG/DL 70-110 POC ARTERIAL BLOOD [id number] 10:28:00* Test Item Value Reference Range Interpretation Comments POC ARTERIAL BLOOD GAS PH (test code = POCPHA) 7.433 7.35-7. 45 N POC ARTERIAL BLOOD GAS PCO2 (test code = JSJUSS5A) 32.7 mmHg 35. 0-45 L POC TCO2 ARTERIAL (test code = POCTCO2) 22.8 POC ARTERIAL BLOOD GAS PO2 (test code = UCQKP6G) 422.1 mmHg 80-10 0.0 HH POC HCO3 ARTERIAL (test code = PQYKOR8A) 21.8 MMOL/L 22.0-26.0 L POC BASE EXCESS (test code = POCBEA) -2.2 MMOL/L -4.0-4.0 N POC O2 SATURATION (test code = POCO2S) 100.0 % 90-100 N [id number] 10:28:00* Test Item Value Reference Range Interpretation Comments SODIUM (test code = NA/ABG) 138 MEQ/L 134-147 N [id number] 10:28:00* Test Item Value Reference Range Interpretation Comments POTASSIUM (test code = K/ABG) 4.3 MEQ/L 3.4-5.0 N [id number] 10:28:00* Test Item Value Reference Range Interpretation Comments CHLORIDE (test code = CL/ABG) MEQ/L 100-108 CREATININE [id number] 10:28:00* Test Item Value Reference Range Interpretation Comments CREATININE ABG (test code = CREAABG) mg/dL 0.8-1.3 [id number] 10:28:00* Test Item Value Reference Range Interpretation Comments HEMOGLOBIN (test code = HGB/ABG) G/DL 12.5-16.9 [id number] 10:28:00* Test Item Value Reference Range Interpretation Comments HEMATOCRIT (test code = HCT/ABG) % 37.5-50.7 POC IONIZED [id number] 10:28:00* Test Item Value Reference Range Interpretation Comments POC IONIZED CALCIUM (test code = POCCA) MMOL/L 1.12-1.32 POC [id number] 10:28:00* Test Item Value Reference Range Interpretation Comments POC GLUCOSE (test code = POCGLU) MG/DL 70-110 POC ARTERIAL BLOOD [id number] 10:28:00* Test Item Value Reference Range Interpretation Comments POC ARTERIAL BLOOD GAS PH (test code = POCPHA) 7.433 7.35-7. 45 N POC ARTERIAL BLOOD GAS PCO2 (test code = BYBJXG4P) 32.7 mmHg 35. 0-45 L POC TCO2 ARTERIAL (test code = POCTCO2) 22.8 POC ARTERIAL BLOOD GAS PO2 (test code = VVIIN0U) 422.1 mmHg 80-10 0.0 HH POC HCO3 ARTERIAL (test code = JUDLJH2P) 21.8 MMOL/L 22.0-26.0 L POC BASE EXCESS (test code = POCBEA) -2.2 MMOL/L -4.0-4.0 N POC O2 SATURATION (test code = POCO2S) 100.0 % 90-100 N [id number] 10:28:00* Test Item Value Reference Range Interpretation Comments SODIUM (test code = NA/ABG) 138 MEQ/L 134-147 N [id number] 10:28:00* Test Item Value Reference Range Interpretation Comments POTASSIUM (test code = K/ABG) 4.3 MEQ/L 3.4-5.0 N [id number] 10:28:00* Test Item Value Reference Range Interpretation Comments CHLORIDE (test code = CL/ABG) MEQ/L 100-108 CREATININE [id number] 10:28:00* Test Item Value Reference Range Interpretation Comments CREATININE ABG (test code = CREAABG) mg/dL 0.8-1.3 [id number] 10:28:00* Test Item Value Reference Range Interpretation Comments HEMOGLOBIN (test code = HGB/ABG) G/DL 12.5-16.9 [id number] 10:28:00* Test Item Value Reference Range Interpretation Comments HEMATOCRIT (test code = HCT/ABG) % 37.5-50.7 POC IONIZED [id number] 10:28:00* Test Item Value Reference Range Interpretation Comments POC IONIZED CALCIUM (test code = POCCA) 1.16 MMOL/L 1.12-1.32 N POC [id number] 10:28:00* Test Item Value Reference Range Interpretation Comments POC GLUCOSE (test code = POCGLU) MG/DL 70-110 POC ARTERIAL BLOOD [id number] 10:28:00* Test Item Value Reference Range Interpretation Comments POC ARTERIAL BLOOD GAS PH (test code = POCPHA) 7.433 7.35-7. 45 N POC ARTERIAL BLOOD GAS PCO2 (test code = LPUNKD1K) 32.7 mmHg 35. 0-45 L POC TCO2 ARTERIAL (test code = POCTCO2) 22.8 POC ARTERIAL BLOOD GAS PO2 (test code = XKKTY7I) 422.1 mmHg 80-10 0.0 HH POC HCO3 ARTERIAL (test code = RHAIHG6X) 21.8 MMOL/L 22.0-26.0 L POC BASE EXCESS (test code = POCBEA) -2.2 MMOL/L -4.0-4.0 N POC O2 SATURATION (test code = POCO2S) 100.0 % 90-100 N [id number] 10:28:00* Test Item Value Reference Range Interpretation Comments SODIUM (test code = NA/ABG) 138 MEQ/L 134-147 N [id number] 10:28:00* Test Item Value Reference Range Interpretation Comments POTASSIUM (test code = K/ABG) 4.3 MEQ/L 3.4-5.0 N [id number] 10:28:00* Test Item Value Reference Range Interpretation Comments CHLORIDE (test code = CL/ABG) MEQ/L 100-108 CREATININE [id number] 10:28:00* Test Item Value Reference Range Interpretation Comments CREATININE ABG (test code = CREAABG) mg/dL 0.8-1.3 [id number] 10:28:00* Test Item Value Reference Range Interpretation Comments HEMOGLOBIN (test code = HGB/ABG) G/DL 12.5-16.9 [id number] 10:28:00* Test Item Value Reference Range Interpretation Comments HEMATOCRIT (test code = HCT/ABG) % 37.5-50.7 POC IONIZED [id number] 10:28:00* Test Item Value Reference Range Interpretation Comments POC IONIZED CALCIUM (test code = POCCA) 1.16 MMOL/L 1.12-1.32 N POC [id number] 10:28:00* Test Item Value Reference Range Interpretation Comments POC GLUCOSE (test code = POCGLU) 186 MG/DL 70-110 H POC ARTERIAL BLOOD [id number] 10:28:00* Test Item Value Reference Range Interpretation Comments POC ARTERIAL BLOOD GAS PH (test code = POCPHA) 7.433 7.35-7. 45 N POC ARTERIAL BLOOD GAS PCO2 (test code = FFAMER0V) 32.7 mmHg 35. 0-45 L POC TCO2 ARTERIAL (test code = POCTCO2) 22.8 POC ARTERIAL BLOOD GAS PO2 (test code = VLSZM4R) 422.1 mmHg 80-10 0.0 HH POC HCO3 ARTERIAL (test code = UMSNLG1X) 21.8 MMOL/L 22.0-26.0 L POC BASE EXCESS (test code = POCBEA) -2.2 MMOL/L -4.0-4.0 N POC O2 SATURATION (test code = POCO2S) 100.0 % 90-100 N [id number] 10:28:00* Test Item Value Reference Range Interpretation Comments SODIUM (test code = NA/ABG) 138 MEQ/L 134-147 N [id number] 10:28:00* Test Item Value Reference Range Interpretation Comments POTASSIUM (test code = K/ABG) 4.3 MEQ/L 3.4-5.0 N [id number] 10:28:00* Test Item Value Reference Range Interpretation Comments CHLORIDE (test code = CL/ABG) MEQ/L 100-108 CREATININE [id number] 10:28:00* Test Item Value Reference Range Interpretation Comments CREATININE ABG (test code = CREAABG) mg/dL 0.8-1.3 [id number] 10:28:00* Test Item Value Reference Range Interpretation Comments HEMOGLOBIN (test code = HGB/ABG) G/DL 12.5-16.9 [id number] 10:28:00* Test Item Value Reference Range Interpretation Comments HEMATOCRIT (test code = HCT/ABG) 20 % 37.5-50.7 L POC IONIZED [id number] 10:28:00* Test Item Value Reference Range Interpretation Comments POC IONIZED CALCIUM (test code = POCCA) 1.16 MMOL/L 1.12-1.32 N POC [id number] 10:28:00* Test Item Value Reference Range Interpretation Comments POC GLUCOSE (test code = POCGLU) 186 MG/DL 70-110 H POC ARTERIAL BLOOD [id number] 10:28:00* Test Item Value Reference Range Interpretation Comments POC ARTERIAL BLOOD GAS PH (test code = POCPHA) 7.433 7.35-7. 45 N POC ARTERIAL BLOOD GAS PCO2 (test code = IVFRHX8V) 32.7 mmHg 35. 0-45 L POC TCO2 ARTERIAL (test code = POCTCO2) 22.8 POC ARTERIAL BLOOD GAS PO2 (test code = JPISB8E) 422.1 mmHg 80-10 0.0 HH POC HCO3 ARTERIAL (test code = SHNNJA2X) 21.8 MMOL/L 22.0-26.0 L POC BASE EXCESS (test code = POCBEA) -2.2 MMOL/L -4.0-4.0 N POC O2 SATURATION (test code = POCO2S) 100.0 % 90-100 N [id number] 10:28:00* Test Item Value Reference Range Interpretation Comments SODIUM (test code = NA/ABG) 138 MEQ/L 134-147 N [id number] 10:28:00* Test Item Value Reference Range Interpretation Comments POTASSIUM (test code = K/ABG) 4.3 MEQ/L 3.4-5.0 N [id number] 10:28:00* Test Item Value Reference Range Interpretation Comments CHLORIDE (test code = CL/ABG) MEQ/L 100-108 CREATININE [id number] 10:28:00* Test Item Value Reference Range Interpretation Comments CREATININE ABG (test code = CREAABG) mg/dL 0.8-1.3 [id number] 10:28:00* Test Item Value Reference Range Interpretation Comments HEMOGLOBIN (test code = HGB/ABG) 6.7 G/DL 12.5-16.9 L [id number] 10:28:00* Test Item Value Reference Range Interpretation Comments HEMATOCRIT (test code = HCT/ABG) 20 % 37.5-50.7 L POC IONIZED [id number] 10:28:00* Test Item Value Reference Range Interpretation Comments POC IONIZED CALCIUM (test code = POCCA) 1.16 MMOL/L 1.12-1.32 N POC [id number] 10:28:00* Test Item Value Reference Range Interpretation Comments POC GLUCOSE (test code = POCGLU) 186 MG/DL 70-110 H POC ARTERIAL BLOOD [id number] 10:28:00* Test Item Value Reference Range Interpretation Comments POC ARTERIAL BLOOD GAS PH (test code = POCPHA) 7.433 7.35-7. 45 N POC ARTERIAL BLOOD GAS PCO2 (test code = EGUVRE5V) 32.7 mmHg 35. 0-45 L POC TCO2 ARTERIAL (test code = POCTCO2) 22.8 POC ARTERIAL BLOOD GAS PO2 (test code = IWITQ9R) 422.1 mmHg 80-10 0.0 HH POC HCO3 ARTERIAL (test code = FYPADN0E) 21.8 MMOL/L 22.0-26.0 L POC BASE EXCESS (test code = POCBEA) -2.2 MMOL/L -4.0-4.0 N POC O2 SATURATION (test code = POCO2S) 100.0 % 90-100 N [id number] 10:28:00* Test Item Value Reference Range Interpretation Comments SODIUM (test code = NA/ABG) 138 MEQ/L 134-147 N [id number] 10:28:00* Test Item Value Reference Range Interpretation Comments POTASSIUM (test code = K/ABG) 4.3 MEQ/L 3.4-5.0 N [id number] 10:28:00* Test Item Value Reference Range Interpretation Comments CHLORIDE (test code = CL/ABG) 106 MEQ/L 100-108 N CREATININE [id number] 10:28:00* Test Item Value Reference Range Interpretation Comments CREATININE ABG (test code = CREAABG) mg/dL 0.8-1.3 [id number] 10:28:00* Test Item Value Reference Range Interpretation Comments HEMOGLOBIN (test code = HGB/ABG) 6.7 G/DL 12.5-16.9 L [id number] 10:28:00* Test Item Value Reference Range Interpretation Comments HEMATOCRIT (test code = HCT/ABG) 20 % 37.5-50.7 L POC IONIZED [id number] 10:28:00* Test Item Value Reference Range Interpretation Comments POC IONIZED CALCIUM (test code = POCCA) 1.16 MMOL/L 1.12-1.32 N POC [id number] 10:28:00* Test Item Value Reference Range Interpretation Comments POC GLUCOSE (test code = POCGLU) 186 MG/DL 70-110 H POC ARTERIAL BLOOD [id number] 10:28:00* Test Item Value Reference Range Interpretation Comments POC ARTERIAL BLOOD GAS PH (test code = POCPHA) 7.433 7.35-7. 45 N POC ARTERIAL BLOOD GAS PCO2 (test code = XMYBOC3P) 32.7 mmHg 35. 0-45 L POC TCO2 ARTERIAL (test code = POCTCO2) 22.8 POC ARTERIAL BLOOD GAS PO2 (test code = YUNIV1Y) 422.1 mmHg 80-10 0.0 HH POC HCO3 ARTERIAL (test code = SSXYSV9C) 21.8 MMOL/L 22.0-26.0 L POC BASE EXCESS (test code = POCBEA) -2.2 MMOL/L -4.0-4.0 N POC O2 SATURATION (test code = POCO2S) 100.0 % 90-100 N [id number] 10:28:00* Test Item Value Reference Range Interpretation Comments SODIUM (test code = NA/ABG) 138 MEQ/L 134-147 N [id number] 10:28:00* Test Item Value Reference Range Interpretation Comments POTASSIUM (test code = K/ABG) 4.3 MEQ/L 3.4-5.0 N [id number] 10:28:00* Test Item Value Reference Range Interpretation Comments CHLORIDE (test code = CL/ABG) 106 MEQ/L 100-108 N CREATININE [id number] 10:28:00* Test Item Value Reference Range Interpretation Comments CREATININE ABG (test code = CREAABG) 0.9 mg/dL 0.8-1.3 N [id number] 10:28:00* Test Item Value Reference Range Interpretation Comments HEMOGLOBIN (test code = HGB/ABG) 6.7 G/DL 12.5-16.9 L [id number] 10:28:00* Test Item Value Reference Range Interpretation Comments HEMATOCRIT (test code = HCT/ABG) 20 % 37.5-50.7 L POC IONIZED [id number] 10:28:00* Test Item Value Reference Range Interpretation Comments POC IONIZED CALCIUM (test code = POCCA) 1.16 MMOL/L 1.12-1.32 N POC [id number] 10:28:00* Test Item Value Reference Range Interpretation Comments POC GLUCOSE (test code = POCGLU) 186 MG/DL 70-110 H POC ARTERIAL BLOOD [id number] 10:00:00* Test Item Value Reference Range Interpretation Comments POC ARTERIAL BLOOD GAS PH (test code = POCPHA) 7.412 7.35-7. 45 N POC ARTERIAL BLOOD GAS PCO2 (test code = MZLLET8U) 38.5 mmHg 35. 0-45 N POC TCO2 ARTERIAL (test code = POCTCO2) 25.7 POC ARTERIAL BLOOD GAS PO2 (test code = VZPQS9C) 425.2 mmHg 80-10 0.0 HH POC HCO3 ARTERIAL (test code = UZNRND9E) 24.5 MMOL/L 22.0-26.0 N POC BASE EXCESS (test code = POCBEA) -0.1 MMOL/L -4.0-4.0 N POC O2 SATURATION (test code = POCO2S) 100.0 % 90-100 N [id number] 10:00:00* Test Item Value Reference Range Interpretation Comments SODIUM (test code = NA/ABG) MEQ/L 134-147 [id number] 10:00:00* Test Item Value Reference Range Interpretation Comments POTASSIUM (test code = K/ABG) MEQ/L 3.4-5.0 [id number] 10:00:00* Test Item Value Reference Range Interpretation Comments CHLORIDE (test code = CL/ABG) MEQ/L 100-108 CREATININE [id number] 10:00:00* Test Item Value Reference Range Interpretation Comments CREATININE ABG (test code = CREAABG) mg/dL 0.8-1.3 [id number] 10:00:00* Test Item Value Reference Range Interpretation Comments HEMOGLOBIN (test code = HGB/ABG) G/DL 12.5-16.9 [id number] 10:00:00* Test Item Value Reference Range Interpretation Comments HEMATOCRIT (test code = HCT/ABG) % 37.5-50.7 POC IONIZED [id number] 10:00:00* Test Item Value Reference Range Interpretation Comments POC IONIZED CALCIUM (test code = POCCA) MMOL/L 1.12-1.32 POC [id number] 10:00:00* Test Item Value Reference Range Interpretation Comments POC GLUCOSE (test code = POCGLU) MG/DL 70-110 POC ARTERIAL BLOOD [id number] 10:00:00* Test Item Value Reference Range Interpretation Comments POC ARTERIAL BLOOD GAS PH (test code = POCPHA) 7.412 7.35-7. 45 N POC ARTERIAL BLOOD GAS PCO2 (test code = AQIOYP0S) 38.5 mmHg 35. 0-45 N POC TCO2 ARTERIAL (test code = POCTCO2) 25.7 POC ARTERIAL BLOOD GAS PO2 (test code = JPWOU6L) 425.2 mmHg 80-10 0.0 HH POC HCO3 ARTERIAL (test code = PXXBAB7W) 24.5 MMOL/L 22.0-26.0 N POC BASE EXCESS (test code = POCBEA) -0.1 MMOL/L -4.0-4.0 N POC O2 SATURATION (test code = POCO2S) 100.0 % 90-100 N [id number] 10:00:00* Test Item Value Reference Range Interpretation Comments SODIUM (test code = NA/ABG) 138 MEQ/L 134-147 N [id number] 10:00:00* Test Item Value Reference Range Interpretation Comments POTASSIUM (test code = K/ABG) MEQ/L 3.4-5.0 [id number] 10:00:00* Test Item Value Reference Range Interpretation Comments CHLORIDE (test code = CL/ABG) MEQ/L 100-108 CREATININE [id number] 10:00:00* Test Item Value Reference Range Interpretation Comments CREATININE ABG (test code = CREAABG) mg/dL 0.8-1.3 [id number] 10:00:00* Test Item Value Reference Range Interpretation Comments HEMOGLOBIN (test code = HGB/ABG) G/DL 12.5-16.9 [id number] 10:00:00* Test Item Value Reference Range Interpretation Comments HEMATOCRIT (test code = HCT/ABG) % 37.5-50.7 POC IONIZED [id number] 10:00:00* Test Item Value Reference Range Interpretation Comments POC IONIZED CALCIUM (test code = POCCA) MMOL/L 1.12-1.32 POC [id number] 10:00:00* Test Item Value Reference Range Interpretation Comments POC GLUCOSE (test code = POCGLU) MG/DL 70-110 POC ARTERIAL BLOOD [id number] 10:00:00* Test Item Value Reference Range Interpretation Comments POC ARTERIAL BLOOD GAS PH (test code = POCPHA) 7.412 7.35-7. 45 N POC ARTERIAL BLOOD GAS PCO2 (test code = LXMIRK7V) 38.5 mmHg 35. 0-45 N POC TCO2 ARTERIAL (test code = POCTCO2) 25.7 POC ARTERIAL BLOOD GAS PO2 (test code = KYLDC7G) 425.2 mmHg 80-10 0.0 HH POC HCO3 ARTERIAL (test code = TDDPUT3M) 24.5 MMOL/L 22.0-26.0 N POC BASE EXCESS (test code = POCBEA) -0.1 MMOL/L -4.0-4.0 N POC O2 SATURATION (test code = POCO2S) 100.0 % 90-100 N [id number] 10:00:00* Test Item Value Reference Range Interpretation Comments SODIUM (test code = NA/ABG) 138 MEQ/L 134-147 N [id number] 10:00:00* Test Item Value Reference Range Interpretation Comments POTASSIUM (test code = K/ABG) 4.5 MEQ/L 3.4-5.0 N [id number] 10:00:00* Test Item Value Reference Range Interpretation Comments CHLORIDE (test code = CL/ABG) MEQ/L 100-108 CREATININE [id number] 10:00:00* Test Item Value Reference Range Interpretation Comments CREATININE ABG (test code = CREAABG) mg/dL 0.8-1.3 [id number] 10:00:00* Test Item Value Reference Range Interpretation Comments HEMOGLOBIN (test code = HGB/ABG) G/DL 12.5-16.9 [id number] 10:00:00* Test Item Value Reference Range Interpretation Comments HEMATOCRIT (test code = HCT/ABG) % 37.5-50.7 POC IONIZED [id number] 10:00:00* Test Item Value Reference Range Interpretation Comments POC IONIZED CALCIUM (test code = POCCA) MMOL/L 1.12-1.32 POC [id number] 10:00:00* Test Item Value Reference Range Interpretation Comments POC GLUCOSE (test code = POCGLU) MG/DL 70-110 POC ARTERIAL BLOOD [id number] 10:00:00* Test Item Value Reference Range Interpretation Comments POC ARTERIAL BLOOD GAS PH (test code = POCPHA) 7.412 7.35-7. 45 N POC ARTERIAL BLOOD GAS PCO2 (test code = DPDFKK4G) 38.5 mmHg 35. 0-45 N POC TCO2 ARTERIAL (test code = POCTCO2) 25.7 POC ARTERIAL BLOOD GAS PO2 (test code = WXDTT8S) 425.2 mmHg 80-10 0.0 HH POC HCO3 ARTERIAL (test code = BDIOEM9L) 24.5 MMOL/L 22.0-26.0 N POC BASE EXCESS (test code = POCBEA) -0.1 MMOL/L -4.0-4.0 N POC O2 SATURATION (test code = POCO2S) 100.0 % 90-100 N [id number] 10:00:00* Test Item Value Reference Range Interpretation Comments SODIUM (test code = NA/ABG) 138 MEQ/L 134-147 N [id number] 10:00:00* Test Item Value Reference Range Interpretation Comments POTASSIUM (test code = K/ABG) 4.5 MEQ/L 3.4-5.0 N [id number] 10:00:00* Test Item Value Reference Range Interpretation Comments CHLORIDE (test code = CL/ABG) MEQ/L 100-108 CREATININE [id number] 10:00:00* Test Item Value Reference Range Interpretation Comments CREATININE ABG (test code = CREAABG) mg/dL 0.8-1.3 [id number] 10:00:00* Test Item Value Reference Range Interpretation Comments HEMOGLOBIN (test code = HGB/ABG) G/DL 12.5-16.9 [id number] 10:00:00* Test Item Value Reference Range Interpretation Comments HEMATOCRIT (test code = HCT/ABG) % 37.5-50.7 POC IONIZED [id number] 10:00:00* Test Item Value Reference Range Interpretation Comments POC IONIZED CALCIUM (test code = POCCA) 1.13 MMOL/L 1.12-1.32 N POC [id number] 10:00:00* Test Item Value Reference Range Interpretation Comments POC GLUCOSE (test code = POCGLU) MG/DL 70-110 POC ARTERIAL BLOOD [id number] 10:00:00* Test Item Value Reference Range Interpretation Comments POC ARTERIAL BLOOD GAS PH (test code = POCPHA) 7.412 7.35-7. 45 N POC ARTERIAL BLOOD GAS PCO2 (test code = SSLPFN5B) 38.5 mmHg 35. 0-45 N POC TCO2 ARTERIAL (test code = POCTCO2) 25.7 POC ARTERIAL BLOOD GAS PO2 (test code = NISHQ5N) 425.2 mmHg 80-10 0.0 HH POC HCO3 ARTERIAL (test code = XNGUHS1B) 24.5 MMOL/L 22.0-26.0 N POC BASE EXCESS (test code = POCBEA) -0.1 MMOL/L -4.0-4.0 N POC O2 SATURATION (test code = POCO2S) 100.0 % 90-100 N [id number] 10:00:00* Test Item Value Reference Range Interpretation Comments SODIUM (test code = NA/ABG) 138 MEQ/L 134-147 N [id number] 10:00:00* Test Item Value Reference Range Interpretation Comments POTASSIUM (test code = K/ABG) 4.5 MEQ/L 3.4-5.0 N [id number] 10:00:00* Test Item Value Reference Range Interpretation Comments CHLORIDE (test code = CL/ABG) MEQ/L 100-108 CREATININE [id number] 10:00:00* Test Item Value Reference Range Interpretation Comments CREATININE ABG (test code = CREAABG) mg/dL 0.8-1.3 [id number] 10:00:00* Test Item Value Reference Range Interpretation Comments HEMOGLOBIN (test code = HGB/ABG) G/DL 12.5-16.9 [id number] 10:00:00* Test Item Value Reference Range Interpretation Comments HEMATOCRIT (test code = HCT/ABG) % 37.5-50.7 POC IONIZED [id number] 10:00:00* Test Item Value Reference Range Interpretation Comments POC IONIZED CALCIUM (test code = POCCA) 1.13 MMOL/L 1.12-1.32 N POC [id number] 10:00:00* Test Item Value Reference Range Interpretation Comments POC GLUCOSE (test code = POCGLU) 172 MG/DL 70-110 H POC ARTERIAL BLOOD [id number] 10:00:00* Test Item Value Reference Range Interpretation Comments POC ARTERIAL BLOOD GAS PH (test code = POCPHA) 7.412 7.35-7. 45 N POC ARTERIAL BLOOD GAS PCO2 (test code = MCBQUD9A) 38.5 mmHg 35. 0-45 N POC TCO2 ARTERIAL (test code = POCTCO2) 25.7 POC ARTERIAL BLOOD GAS PO2 (test code = HGKWF0Q) 425.2 mmHg 80-10 0.0 HH POC HCO3 ARTERIAL (test code = UMXWSG6N) 24.5 MMOL/L 22.0-26.0 N POC BASE EXCESS (test code = POCBEA) -0.1 MMOL/L -4.0-4.0 N POC O2 SATURATION (test code = POCO2S) 100.0 % 90-100 N [id number] 10:00:00* Test Item Value Reference Range Interpretation Comments SODIUM (test code = NA/ABG) 138 MEQ/L 134-147 N [id number] 10:00:00* Test Item Value Reference Range Interpretation Comments POTASSIUM (test code = K/ABG) 4.5 MEQ/L 3.4-5.0 N [id number] 10:00:00* Test Item Value Reference Range Interpretation Comments CHLORIDE (test code = CL/ABG) MEQ/L 100-108 CREATININE [id number] 10:00:00* Test Item Value Reference Range Interpretation Comments CREATININE ABG (test code = CREAABG) mg/dL 0.8-1.3 [id number] 10:00:00* Test Item Value Reference Range Interpretation Comments HEMOGLOBIN (test code = HGB/ABG) G/DL 12.5-16.9 [id number] 10:00:00* Test Item Value Reference Range Interpretation Comments HEMATOCRIT (test code = HCT/ABG) 21 % 37.5-50.7 L POC IONIZED [id number] 10:00:00* Test Item Value Reference Range Interpretation Comments POC IONIZED CALCIUM (test code = POCCA) 1.13 MMOL/L 1.12-1.32 N POC [id number] 10:00:00* Test Item Value Reference Range Interpretation Comments POC GLUCOSE (test code = POCGLU) 172 MG/DL 70-110 H POC ARTERIAL BLOOD [id number] 10:00:00* Test Item Value Reference Range Interpretation Comments POC ARTERIAL BLOOD GAS PH (test code = POCPHA) 7.412 7.35-7. 45 N POC ARTERIAL BLOOD GAS PCO2 (test code = JUMQSV0Q) 38.5 mmHg 35. 0-45 N POC TCO2 ARTERIAL (test code = POCTCO2) 25.7 POC ARTERIAL BLOOD GAS PO2 (test code = RYIQP3M) 425.2 mmHg 80-10 0.0 HH POC HCO3 ARTERIAL (test code = RYPKIK1P) 24.5 MMOL/L 22.0-26.0 N POC BASE EXCESS (test code = POCBEA) -0.1 MMOL/L -4.0-4.0 N POC O2 SATURATION (test code = POCO2S) 100.0 % 90-100 N [id number] 10:00:00* Test Item Value Reference Range Interpretation Comments SODIUM (test code = NA/ABG) 138 MEQ/L 134-147 N [id number] 10:00:00* Test Item Value Reference Range Interpretation Comments POTASSIUM (test code = K/ABG) 4.5 MEQ/L 3.4-5.0 N [id number] 10:00:00* Test Item Value Reference Range Interpretation Comments CHLORIDE (test code = CL/ABG) MEQ/L 100-108 CREATININE [id number] 10:00:00* Test Item Value Reference Range Interpretation Comments CREATININE ABG (test code = CREAABG) mg/dL 0.8-1.3 [id number] 10:00:00* Test Item Value Reference Range Interpretation Comments HEMOGLOBIN (test code = HGB/ABG) 7.3 G/DL 12.5-16.9 L [id number] 10:00:00* Test Item Value Reference Range Interpretation Comments HEMATOCRIT (test code = HCT/ABG) 21 % 37.5-50.7 L POC IONIZED [id number] 10:00:00* Test Item Value Reference Range Interpretation Comments POC IONIZED CALCIUM (test code = POCCA) 1.13 MMOL/L 1.12-1.32 N POC [id number] 10:00:00* Test Item Value Reference Range Interpretation Comments POC GLUCOSE (test code = POCGLU) 172 MG/DL 70-110 H POC ARTERIAL BLOOD [id number] 10:00:00* Test Item Value Reference Range Interpretation Comments POC ARTERIAL BLOOD GAS PH (test code = POCPHA) 7.412 7.35-7. 45 N POC ARTERIAL BLOOD GAS PCO2 (test code = JROGJG5U) 38.5 mmHg 35. 0-45 N POC TCO2 ARTERIAL (test code = POCTCO2) 25.7 POC ARTERIAL BLOOD GAS PO2 (test code = JYVYD9P) 425.2 mmHg 80-10 0.0 HH POC HCO3 ARTERIAL (test code = PWNOYK5E) 24.5 MMOL/L 22.0-26.0 N POC BASE EXCESS (test code = POCBEA) -0.1 MMOL/L -4.0-4.0 N POC O2 SATURATION (test code = POCO2S) 100.0 % 90-100 N [id number] 10:00:00* Test Item Value Reference Range Interpretation Comments SODIUM (test code = NA/ABG) 138 MEQ/L 134-147 N [id number] 10:00:00* Test Item Value Reference Range Interpretation Comments POTASSIUM (test code = K/ABG) 4.5 MEQ/L 3.4-5.0 N [id number] 10:00:00* Test Item Value Reference Range Interpretation Comments CHLORIDE (test code = CL/ABG) 106 MEQ/L 100-108 N CREATININE [id number] 10:00:00* Test Item Value Reference Range Interpretation Comments CREATININE ABG (test code = CREAABG) mg/dL 0.8-1.3 [id number] 10:00:00* Test Item Value Reference Range Interpretation Comments HEMOGLOBIN (test code = HGB/ABG) 7.3 G/DL 12.5-16.9 L [id number] 10:00:00* Test Item Value Reference Range Interpretation Comments HEMATOCRIT (test code = HCT/ABG) 21 % 37.5-50.7 L POC IONIZED [id number] 10:00:00* Test Item Value Reference Range Interpretation Comments POC IONIZED CALCIUM (test code = POCCA) 1.13 MMOL/L 1.12-1.32 N POC [id number] 10:00:00* Test Item Value Reference Range Interpretation Comments POC GLUCOSE (test code = POCGLU) 172 MG/DL 70-110 H POC ARTERIAL BLOOD [id number] 10:00:00* Test Item Value Reference Range Interpretation Comments POC ARTERIAL BLOOD GAS PH (test code = POCPHA) 7.412 7.35-7. 45 N POC ARTERIAL BLOOD GAS PCO2 (test code = HBPGRO8K) 38.5 mmHg 35. 0-45 N POC TCO2 ARTERIAL (test code = POCTCO2) 25.7 POC ARTERIAL BLOOD GAS PO2 (test code = SOKOH0S) 425.2 mmHg 80-10 0.0 HH POC HCO3 ARTERIAL (test code = PDYFXG4O) 24.5 MMOL/L 22.0-26.0 N POC BASE EXCESS (test code = POCBEA) -0.1 MMOL/L -4.0-4.0 N POC O2 SATURATION (test code = POCO2S) 100.0 % 90-100 N [id number] 10:00:00* Test Item Value Reference Range Interpretation Comments SODIUM (test code = NA/ABG) 138 MEQ/L 134-147 N [id number] 10:00:00* Test Item Value Reference Range Interpretation Comments POTASSIUM (test code = K/ABG) 4.5 MEQ/L 3.4-5.0 N [id number] 10:00:00* Test Item Value Reference Range Interpretation Comments CHLORIDE (test code = CL/ABG) 106 MEQ/L 100-108 N CREATININE [id number] 10:00:00* Test Item Value Reference Range Interpretation Comments CREATININE ABG (test code = CREAABG) 0.8 mg/dL 0.8-1.3 N [id number] 10:00:00* Test Item Value Reference Range Interpretation Comments HEMOGLOBIN (test code = HGB/ABG) 7.3 G/DL 12.5-16.9 L [id number] 10:00:00* Test Item Value Reference Range Interpretation Comments HEMATOCRIT (test code = HCT/ABG) 21 % 37.5-50.7 L POC IONIZED [id number] 10:00:00* Test Item Value Reference Range Interpretation Comments POC IONIZED CALCIUM (test code = POCCA) 1.13 MMOL/L 1.12-1.32 N POC [id number] 10:00:00* Test Item Value Reference Range Interpretation Comments POC GLUCOSE (test code = POCGLU) 172 MG/DL 70-110 H POC ARTERIAL BLOOD [id number] 09:38:00* Test Item Value Reference Range Interpretation Comments POC ARTERIAL BLOOD GAS PH (test code = POCPHA) 7.381 7.35-7. 45 N POC ARTERIAL BLOOD GAS PCO2 (test code = XTLHAD3O) 38.2 mmHg 35. 0-45 N POC TCO2 ARTERIAL (test code = POCTCO2) 23.8 POC ARTERIAL BLOOD GAS PO2 (test code = XSFSG5Z) 204.7 mmHg 80-10 0.0 HH POC HCO3 ARTERIAL (test code = MJXJIV4O) 22.6 MMOL/L 22.0-26.0 N POC BASE EXCESS (test code = POCBEA) -2.2 MMOL/L -4.0-4.0 N POC O2 SATURATION (test code = POCO2S) 99.7 % 90-100 N [id number] 09:38:00* Test Item Value Reference Range Interpretation Comments SODIUM (test code = NA/ABG) MEQ/L 134-147 [id number] 09:38:00* Test Item Value Reference Range Interpretation Comments POTASSIUM (test code = K/ABG) MEQ/L 3.4-5.0 [id number] 09:38:00* Test Item Value Reference Range Interpretation Comments CHLORIDE (test code = CL/ABG) MEQ/L 100-108 CREATININE [id number] 09:38:00* Test Item Value Reference Range Interpretation Comments CREATININE ABG (test code = CREAABG) mg/dL 0.8-1.3 [id number] 09:38:00* Test Item Value Reference Range Interpretation Comments HEMOGLOBIN (test code = HGB/ABG) G/DL 12.5-16.9 [id number] 09:38:00* Test Item Value Reference Range Interpretation Comments HEMATOCRIT (test code = HCT/ABG) % 37.5-50.7 POC IONIZED [id number] 09:38:00* Test Item Value Reference Range Interpretation Comments POC IONIZED CALCIUM (test code = POCCA) MMOL/L 1.12-1.32 POC [id number] 09:38:00* Test Item Value Reference Range Interpretation Comments POC GLUCOSE (test code = POCGLU) MG/DL 70-110 POC ARTERIAL BLOOD [id number] 09:38:00* Test Item Value Reference Range Interpretation Comments POC ARTERIAL BLOOD GAS PH (test code = POCPHA) 7.381 7.35-7. 45 N POC ARTERIAL BLOOD GAS PCO2 (test code = KRPOTC1R) 38.2 mmHg 35. 0-45 N POC TCO2 ARTERIAL (test code = POCTCO2) 23.8 POC ARTERIAL BLOOD GAS PO2 (test code = ADXUS6P) 204.7 mmHg 80-10 0.0 HH POC HCO3 ARTERIAL (test code = QXIMEX5J) 22.6 MMOL/L 22.0-26.0 N POC BASE EXCESS (test code = POCBEA) -2.2 MMOL/L -4.0-4.0 N POC O2 SATURATION (test code = POCO2S) 99.7 % 90-100 N [id number] 09:38:00* Test Item Value Reference Range Interpretation Comments SODIUM (test code = NA/ABG) 138 MEQ/L 134-147 N [id number] 09:38:00* Test Item Value Reference Range Interpretation Comments POTASSIUM (test code = K/ABG) MEQ/L 3.4-5.0 [id number] 09:38:00* Test Item Value Reference Range Interpretation Comments CHLORIDE (test code = CL/ABG) MEQ/L 100-108 CREATININE [id number] 09:38:00* Test Item Value Reference Range Interpretation Comments CREATININE ABG (test code = CREAABG) mg/dL 0.8-1.3 [id number] 09:38:00* Test Item Value Reference Range Interpretation Comments HEMOGLOBIN (test code = HGB/ABG) G/DL 12.5-16.9 [id number] 09:38:00* Test Item Value Reference Range Interpretation Comments HEMATOCRIT (test code = HCT/ABG) % 37.5-50.7 POC IONIZED [id number] 09:38:00* Test Item Value Reference Range Interpretation Comments POC IONIZED CALCIUM (test code = POCCA) MMOL/L 1.12-1.32 POC [id number] 09:38:00* Test Item Value Reference Range Interpretation Comments POC GLUCOSE (test code = POCGLU) MG/DL 70-110 POC ARTERIAL BLOOD [id number] 09:38:00* Test Item Value Reference Range Interpretation Comments POC ARTERIAL BLOOD GAS PH (test code = POCPHA) 7.381 7.35-7. 45 N POC ARTERIAL BLOOD GAS PCO2 (test code = KHDZNO1Q) 38.2 mmHg 35. 0-45 N POC TCO2 ARTERIAL (test code = POCTCO2) 23.8 POC ARTERIAL BLOOD GAS PO2 (test code = DFVHL8Y) 204.7 mmHg 80-10 0.0 HH POC HCO3 ARTERIAL (test code = IJUMKT9O) 22.6 MMOL/L 22.0-26.0 N POC BASE EXCESS (test code = POCBEA) -2.2 MMOL/L -4.0-4.0 N POC O2 SATURATION (test code = POCO2S) 99.7 % 90-100 N [id number] 09:38:00* Test Item Value Reference Range Interpretation Comments SODIUM (test code = NA/ABG) 138 MEQ/L 134-147 N [id number] 09:38:00* Test Item Value Reference Range Interpretation Comments POTASSIUM (test code = K/ABG) 4.1 MEQ/L 3.4-5.0 N [id number] 09:38:00* Test Item Value Reference Range Interpretation Comments CHLORIDE (test code = CL/ABG) MEQ/L 100-108 CREATININE [id number] 09:38:00* Test Item Value Reference Range Interpretation Comments CREATININE ABG (test code = CREAABG) mg/dL 0.8-1.3 [id number] 09:38:00* Test Item Value Reference Range Interpretation Comments HEMOGLOBIN (test code = HGB/ABG) G/DL 12.5-16.9 [id number] 09:38:00* Test Item Value Reference Range Interpretation Comments HEMATOCRIT (test code = HCT/ABG) % 37.5-50.7 POC IONIZED [id number] 09:38:00* Test Item Value Reference Range Interpretation Comments POC IONIZED CALCIUM (test code = POCCA) MMOL/L 1.12-1.32 POC [id number] 09:38:00* Test Item Value Reference Range Interpretation Comments POC GLUCOSE (test code = POCGLU) MG/DL 70-110 POC ARTERIAL BLOOD [id number] 09:38:00* Test Item Value Reference Range Interpretation Comments POC ARTERIAL BLOOD GAS PH (test code = POCPHA) 7.381 7.35-7. 45 N POC ARTERIAL BLOOD GAS PCO2 (test code = UHHOWI2Z) 38.2 mmHg 35. 0-45 N POC TCO2 ARTERIAL (test code = POCTCO2) 23.8 POC ARTERIAL BLOOD GAS PO2 (test code = AQUIU0M) 204.7 mmHg 80-10 0.0 HH POC HCO3 ARTERIAL (test code = RAQZAY1K) 22.6 MMOL/L 22.0-26.0 N POC BASE EXCESS (test code = POCBEA) -2.2 MMOL/L -4.0-4.0 N POC O2 SATURATION (test code = POCO2S) 99.7 % 90-100 N [id number] 09:38:00* Test Item Value Reference Range Interpretation Comments SODIUM (test code = NA/ABG) 138 MEQ/L 134-147 N [id number] 09:38:00* Test Item Value Reference Range Interpretation Comments POTASSIUM (test code = K/ABG) 4.1 MEQ/L 3.4-5.0 N [id number] 09:38:00* Test Item Value Reference Range Interpretation Comments CHLORIDE (test code = CL/ABG) MEQ/L 100-108 CREATININE [id number] 09:38:00* Test Item Value Reference Range Interpretation Comments CREATININE ABG (test code = CREAABG) mg/dL 0.8-1.3 [id number] 09:38:00* Test Item Value Reference Range Interpretation Comments HEMOGLOBIN (test code = HGB/ABG) G/DL 12.5-16.9 [id number] 09:38:00* Test Item Value Reference Range Interpretation Comments HEMATOCRIT (test code = HCT/ABG) % 37.5-50.7 POC IONIZED [id number] 09:38:00* Test Item Value Reference Range Interpretation Comments POC IONIZED CALCIUM (test code = POCCA) 1.21 MMOL/L 1.12-1.32 N POC [id number] 09:38:00* Test Item Value Reference Range Interpretation Comments POC GLUCOSE (test code = POCGLU) MG/DL 70-110 POC ARTERIAL BLOOD [id number] 09:38:00* Test Item Value Reference Range Interpretation Comments POC ARTERIAL BLOOD GAS PH (test code = POCPHA) 7.381 7.35-7. 45 N POC ARTERIAL BLOOD GAS PCO2 (test code = KUNFBR3Z) 38.2 mmHg 35. 0-45 N POC TCO2 ARTERIAL (test code = POCTCO2) 23.8 POC ARTERIAL BLOOD GAS PO2 (test code = BINLL2F) 204.7 mmHg 80-10 0.0 HH POC HCO3 ARTERIAL (test code = HWFQOV6V) 22.6 MMOL/L 22.0-26.0 N POC BASE EXCESS (test code = POCBEA) -2.2 MMOL/L -4.0-4.0 N POC O2 SATURATION (test code = POCO2S) 99.7 % 90-100 N [id number] 09:38:00* Test Item Value Reference Range Interpretation Comments SODIUM (test code = NA/ABG) 138 MEQ/L 134-147 N [id number] 09:38:00* Test Item Value Reference Range Interpretation Comments POTASSIUM (test code = K/ABG) 4.1 MEQ/L 3.4-5.0 N [id number] 09:38:00* Test Item Value Reference Range Interpretation Comments CHLORIDE (test code = CL/ABG) MEQ/L 100-108 CREATININE [id number] 09:38:00* Test Item Value Reference Range Interpretation Comments CREATININE ABG (test code = CREAABG) mg/dL 0.8-1.3 [id number] 09:38:00* Test Item Value Reference Range Interpretation Comments HEMOGLOBIN (test code = HGB/ABG) G/DL 12.5-16.9 [id number] 09:38:00* Test Item Value Reference Range Interpretation Comments HEMATOCRIT (test code = HCT/ABG) % 37.5-50.7 POC IONIZED [id number] 09:38:00* Test Item Value Reference Range Interpretation Comments POC IONIZED CALCIUM (test code = POCCA) 1.21 MMOL/L 1.12-1.32 N POC [id number] 09:38:00* Test Item Value Reference Range Interpretation Comments POC GLUCOSE (test code = POCGLU) 182 MG/DL 70-110 H POC ARTERIAL BLOOD [id number] 09:38:00* Test Item Value Reference Range Interpretation Comments POC ARTERIAL BLOOD GAS PH (test code = POCPHA) 7.381 7.35-7. 45 N POC ARTERIAL BLOOD GAS PCO2 (test code = XDJJAX9E) 38.2 mmHg 35. 0-45 N POC TCO2 ARTERIAL (test code = POCTCO2) 23.8 POC ARTERIAL BLOOD GAS PO2 (test code = HUAIO8F) 204.7 mmHg 80-10 0.0 HH POC HCO3 ARTERIAL (test code = QNPNDT9G) 22.6 MMOL/L 22.0-26.0 N POC BASE EXCESS (test code = POCBEA) -2.2 MMOL/L -4.0-4.0 N POC O2 SATURATION (test code = POCO2S) 99.7 % 90-100 N [id number] 09:38:00* Test Item Value Reference Range Interpretation Comments SODIUM (test code = NA/ABG) 138 MEQ/L 134-147 N [id number] 09:38:00* Test Item Value Reference Range Interpretation Comments POTASSIUM (test code = K/ABG) 4.1 MEQ/L 3.4-5.0 N [id number] 09:38:00* Test Item Value Reference Range Interpretation Comments CHLORIDE (test code = CL/ABG) MEQ/L 100-108 CREATININE [id number] 09:38:00* Test Item Value Reference Range Interpretation Comments CREATININE ABG (test code = CREAABG) mg/dL 0.8-1.3 [id number] 09:38:00* Test Item Value Reference Range Interpretation Comments HEMOGLOBIN (test code = HGB/ABG) G/DL 12.5-16.9 [id number] 09:38:00* Test Item Value Reference Range Interpretation Comments HEMATOCRIT (test code = HCT/ABG) 31 % 37.5-50.7 L POC IONIZED [id number] 09:38:00* Test Item Value Reference Range Interpretation Comments POC IONIZED CALCIUM (test code = POCCA) 1.21 MMOL/L 1.12-1.32 N POC [id number] 09:38:00* Test Item Value Reference Range Interpretation Comments POC GLUCOSE (test code = POCGLU) 182 MG/DL 70-110 H POC ARTERIAL BLOOD [id number] 09:38:00* Test Item Value Reference Range Interpretation Comments POC ARTERIAL BLOOD GAS PH (test code = POCPHA) 7.381 7.35-7. 45 N POC ARTERIAL BLOOD GAS PCO2 (test code = WAVZYB3O) 38.2 mmHg 35. 0-45 N POC TCO2 ARTERIAL (test code = POCTCO2) 23.8 POC ARTERIAL BLOOD GAS PO2 (test code = VXBLH8P) 204.7 mmHg 80-10 0.0 HH POC HCO3 ARTERIAL (test code = TBTOBB0J) 22.6 MMOL/L 22.0-26.0 N POC BASE EXCESS (test code = POCBEA) -2.2 MMOL/L -4.0-4.0 N POC O2 SATURATION (test code = POCO2S) 99.7 % 90-100 N [id number] 09:38:00* Test Item Value Reference Range Interpretation Comments SODIUM (test code = NA/ABG) 138 MEQ/L 134-147 N [id number] 09:38:00* Test Item Value Reference Range Interpretation Comments POTASSIUM (test code = K/ABG) 4.1 MEQ/L 3.4-5.0 N [id number] 09:38:00* Test Item Value Reference Range Interpretation Comments CHLORIDE (test code = CL/ABG) MEQ/L 100-108 CREATININE [id number] 09:38:00* Test Item Value Reference Range Interpretation Comments CREATININE ABG (test code = CREAABG) mg/dL 0.8-1.3 [id number] 09:38:00* Test Item Value Reference Range Interpretation Comments HEMOGLOBIN (test code = HGB/ABG) 10.6 G/DL 12.5-16.9 L [id number] 09:38:00* Test Item Value Reference Range Interpretation Comments HEMATOCRIT (test code = HCT/ABG) 31 % 37.5-50.7 L POC IONIZED [id number] 09:38:00* Test Item Value Reference Range Interpretation Comments POC IONIZED CALCIUM (test code = POCCA) 1.21 MMOL/L 1.12-1.32 N POC [id number] 09:38:00* Test Item Value Reference Range Interpretation Comments POC GLUCOSE (test code = POCGLU) 182 MG/DL 70-110 H POC ARTERIAL BLOOD [id number] 09:38:00* Test Item Value Reference Range Interpretation Comments POC ARTERIAL BLOOD GAS PH (test code = POCPHA) 7.381 7.35-7. 45 N POC ARTERIAL BLOOD GAS PCO2 (test code = HPRRRD0O) 38.2 mmHg 35. 0-45 N POC TCO2 ARTERIAL (test code = POCTCO2) 23.8 POC ARTERIAL BLOOD GAS PO2 (test code = TNZRZ1H) 204.7 mmHg 80-10 0.0 HH POC HCO3 ARTERIAL (test code = QUONDM3M) 22.6 MMOL/L 22.0-26.0 N POC BASE EXCESS (test code = POCBEA) -2.2 MMOL/L -4.0-4.0 N POC O2 SATURATION (test code = POCO2S) 99.7 % 90-100 N [id number] 09:38:00* Test Item Value Reference Range Interpretation Comments SODIUM (test code = NA/ABG) 138 MEQ/L 134-147 N [id number] 09:38:00* Test Item Value Reference Range Interpretation Comments POTASSIUM (test code = K/ABG) 4.1 MEQ/L 3.4-5.0 N [id number] 09:38:00* Test Item Value Reference Range Interpretation Comments CHLORIDE (test code = CL/ABG) 109 MEQ/L 100-108 H CREATININE [id number] 09:38:00* Test Item Value Reference Range Interpretation Comments CREATININE ABG (test code = CREAABG) mg/dL 0.8-1.3 [id number] 09:38:00* Test Item Value Reference Range Interpretation Comments HEMOGLOBIN (test code = HGB/ABG) 10.6 G/DL 12.5-16.9 L [id number] 09:38:00* Test Item Value Reference Range Interpretation Comments HEMATOCRIT (test code = HCT/ABG) 31 % 37.5-50.7 L POC IONIZED [id number] 09:38:00* Test Item Value Reference Range Interpretation Comments POC IONIZED CALCIUM (test code = POCCA) 1.21 MMOL/L 1.12-1.32 N POC [id number] 09:38:00* Test Item Value Reference Range Interpretation Comments POC GLUCOSE (test code = POCGLU) 182 MG/DL 70-110 H POC ARTERIAL BLOOD [id number] 09:38:00* Test Item Value Reference Range Interpretation Comments POC ARTERIAL BLOOD GAS PH (test code = POCPHA) 7.381 7.35-7. 45 N POC ARTERIAL BLOOD GAS PCO2 (test code = WSMDBS5N) 38.2 mmHg 35. 0-45 N POC TCO2 ARTERIAL (test code = POCTCO2) 23.8 POC ARTERIAL BLOOD GAS PO2 (test code = AQIKN2U) 204.7 mmHg 80-10 0.0 HH POC HCO3 ARTERIAL (test code = JYTRYM0D) 22.6 MMOL/L 22.0-26.0 N POC BASE EXCESS (test code = POCBEA) -2.2 MMOL/L -4.0-4.0 N POC O2 SATURATION (test code = POCO2S) 99.7 % 90-100 N [id number] 09:38:00* Test Item Value Reference Range Interpretation Comments SODIUM (test code = NA/ABG) 138 MEQ/L 134-147 N [id number] 09:38:00* Test Item Value Reference Range Interpretation Comments POTASSIUM (test code = K/ABG) 4.1 MEQ/L 3.4-5.0 N [id number] 09:38:00* Test Item Value Reference Range Interpretation Comments CHLORIDE (test code = CL/ABG) 109 MEQ/L 100-108 H CREATININE [id number] 09:38:00* Test Item Value Reference Range Interpretation Comments CREATININE ABG (test code = CREAABG) 0.9 mg/dL 0.8-1.3 [id number] 09:38:00* Test Item Value Reference Range Interpretation Comments HEMOGLOBIN (test code = HGB/ABG) 10.6 G/DL 12.5-16.9 L [id number] 09:38:00* Test Item Value Reference Range Interpretation Comments HEMATOCRIT (test code = HCT/ABG) 31 % 37.5-50.7 L POC IONIZED [id number] 09:38:00* Test Item Value Reference Range Interpretation Comments POC IONIZED CALCIUM (test code = POCCA) 1.21 MMOL/L 1.12-1.32 N POC [id number] 09:38:00* Test Item Value Reference Range Interpretation Comments POC GLUCOSE (test code = POCGLU) 182 MG/DL 70-110 H BASIC METABOLIC [id number] 07:12:00* Test Item Value Reference Range Interpretation Comments SODIUM (test code = NA) 137 mEq/L 134-147 N POTASSIUM (test code = K) 4.6 mEq/L 3.4-5.0 N CHLORIDE (test code = CL) 104 mEq/L 100-108 N CARBON DIOXIDE (test code = CO2) 26 mEq/L 21-33 N ANION GAP (test code = GAP) 12 0-20 N GLUCOSE (test code = GLU) 135 mg/dL 70-110 H BLOOD UREA NITROGEN (test code = BUN) 33 mg/dL 7-18 H GLOMERULAR FILTRATION RATE (test code = GFR) 49.8 70-80 L Units of measure = ml/min/1.73 m2 CREATININE (test code = CREAT) 1.4 mg/dL 0.6-1.3 H CALCIUM (test code = CA) 8.7 mg/dL 8.0-10.5 N LIPID PROFILE (CORONARY RISK)2018-08-16 07:12:00* Test Item Value Reference Range Interpretation Comments TRIGLYCERIDES (test code = TRIG) 116 mg/dL 40-150 N CHOLESTEROL (test code = CHOL) 134 mg/dL <200 CHOLESTEROL/HDL RATIO (test code = CHOLHDL) 2.91 RATIO 3.43-4.97 L RISK ASSOCIATED WITH CHOL/HDL RATIOS: RISK MALE FEMALE1/2 AVERAGE 3.43 3.27AVERAGE 4.97 4.442X AVERAGE 9.55 7.053X AVERAGE 23.39 11.04 NOTE THAT THE REFERENCE VALUE IS RELATEDTO RISK LEVELS RECOMMENDED BY THE NATL.HEART, LUNG, AND BLOOD INST. HDL CHOLESTEROL (test code = HDL) 46.0 mg/dL 32-72 N LIPOPROTEIN LDL (test code = LDL) 73 mg/dL 0-100 N <100 [id number] NEAR OPTIMAL/ABOVE [id number] [id number] HIGH>CO=465 VERY HIGH*Guidelines provided by the National Cholesterol EducationProgram Adult Treatment Panel III POC ARTERIAL BLOOD [id number] 07:07:00* Test Item Value Reference Range Interpretation Comments POC ARTERIAL BLOOD GAS PH (test code = POCPHA) 7.365 7.35-7. 45 N POC ARTERIAL BLOOD GAS PCO2 (test code = GRPZZT1D) 47.5 mmHg 35. 0-45 H POC TCO2 ARTERIAL (test code = POCTCO2) 28.6 POC ARTERIAL BLOOD GAS PO2 (test code = FGGAH0D) 90.0 mmHg 80-10 0.0 N POC HCO3 ARTERIAL (test code = QTHEHT4M) 27.2 MMOL/L 22.0-26.0 H POC BASE EXCESS (test code = POCBEA) 1.2 MMOL/L -4.0-4.0 N POC O2 SATURATION (test code = POCO2S) 96.5 % 90-100 N [id number] 07:07:00* Test Item Value Reference Range Interpretation Comments SODIUM (test code = NA/ABG) MEQ/L 134-147 [id number] 07:07:00* Test Item Value Reference Range Interpretation Comments POTASSIUM (test code = K/ABG) MEQ/L 3.4-5.0 [id number] 07:07:00* Test Item Value Reference Range Interpretation Comments CHLORIDE (test code = CL/ABG) MEQ/L 100-108 CREATININE [id number] 07:07:00* Test Item Value Reference Range Interpretation Comments CREATININE ABG (test code = CREAABG) mg/dL 0.8-1.3 [id number] 07:07:00* Test Item Value Reference Range Interpretation Comments HEMOGLOBIN (test code = HGB/ABG) G/DL 12.5-16.9 [id number] 07:07:00* Test Item Value Reference Range Interpretation Comments HEMATOCRIT (test code = HCT/ABG) % 37.5-50.7 POC IONIZED [id number] 07:07:00* Test Item Value Reference Range Interpretation Comments POC IONIZED CALCIUM (test code = POCCA) MMOL/L 1.12-1.32 POC [id number] 07:07:00* Test Item Value Reference Range Interpretation Comments POC GLUCOSE (test code = POCGLU) MG/DL 70-110 POC ARTERIAL BLOOD [id number] 07:07:00* Test Item Value Reference Range Interpretation Comments POC ARTERIAL BLOOD GAS PH (test code = POCPHA) 7.365 7.35-7. 45 N POC ARTERIAL BLOOD GAS PCO2 (test code = TFUKES9T) 47.5 mmHg 35. 0-45 H POC TCO2 ARTERIAL (test code = POCTCO2) 28.6 POC ARTERIAL BLOOD GAS PO2 (test code = DCBIX7S) 90.0 mmHg 80-10 0.0 N POC HCO3 ARTERIAL (test code = XCDCEW7H) 27.2 MMOL/L 22.0-26.0 H POC BASE EXCESS (test code = POCBEA) 1.2 MMOL/L -4.0-4.0 N POC O2 SATURATION (test code = POCO2S) 96.5 % 90-100 N [id number] 07:07:00* Test Item Value Reference Range Interpretation Comments SODIUM (test code = NA/ABG) 137 MEQ/L 134-147 N [id number] 07:07:00* Test Item Value Reference Range Interpretation Comments POTASSIUM (test code = K/ABG) MEQ/L 3.4-5.0 [id number] 07:07:00* Test Item Value Reference Range Interpretation Comments CHLORIDE (test code = CL/ABG) MEQ/L 100-108 CREATININE [id number] 07:07:00* Test Item Value Reference Range Interpretation Comments CREATININE ABG (test code = CREAABG) mg/dL 0.8-1.3 [id number] 07:07:00* Test Item Value Reference Range Interpretation Comments HEMOGLOBIN (test code = HGB/ABG) G/DL 12.5-16.9 [id number] 07:07:00* Test Item Value Reference Range Interpretation Comments HEMATOCRIT (test code = HCT/ABG) % 37.5-50.7 POC IONIZED [id number] 07:07:00* Test Item Value Reference Range Interpretation Comments POC IONIZED CALCIUM (test code = POCCA) MMOL/L 1.12-1.32 POC [id number] 07:07:00* Test Item Value Reference Range Interpretation Comments POC GLUCOSE (test code = POCGLU) MG/DL 70-110 POC ARTERIAL BLOOD [id number] 07:07:00* Test Item Value Reference Range Interpretation Comments POC ARTERIAL BLOOD GAS PH (test code = POCPHA) 7.365 7.35-7. 45 N POC ARTERIAL BLOOD GAS PCO2 (test code = SXOHYB8W) 47.5 mmHg 35. 0-45 H POC TCO2 ARTERIAL (test code = POCTCO2) 28.6 POC ARTERIAL BLOOD GAS PO2 (test code = RASTB2C) 90.0 mmHg 80-10 0.0 N POC HCO3 ARTERIAL (test code = AOGVCD0Z) 27.2 MMOL/L 22.0-26.0 H POC BASE EXCESS (test code = POCBEA) 1.2 MMOL/L -4.0-4.0 N POC O2 SATURATION (test code = POCO2S) 96.5 % 90-100 N [id number] 07:07:00* Test Item Value Reference Range Interpretation Comments SODIUM (test code = NA/ABG) 137 MEQ/L 134-147 N [id number] 07:07:00* Test Item Value Reference Range Interpretation Comments POTASSIUM (test code = K/ABG) 4.5 MEQ/L 3.4-5.0 N [id number] 07:07:00* Test Item Value Reference Range Interpretation Comments CHLORIDE (test code = CL/ABG) MEQ/L 100-108 CREATININE [id number] 07:07:00* Test Item Value Reference Range Interpretation Comments CREATININE ABG (test code = CREAABG) mg/dL 0.8-1.3 [id number] 07:07:00* Test Item Value Reference Range Interpretation Comments HEMOGLOBIN (test code = HGB/ABG) G/DL 12.5-16.9 [id number] 07:07:00* Test Item Value Reference Range Interpretation Comments HEMATOCRIT (test code = HCT/ABG) % 37.5-50.7 POC IONIZED [id number] 07:07:00* Test Item Value Reference Range Interpretation Comments POC IONIZED CALCIUM (test code = POCCA) MMOL/L 1.12-1.32 POC [id number] 07:07:00* Test Item Value Reference Range Interpretation Comments POC GLUCOSE (test code = POCGLU) MG/DL 70-110 POC ARTERIAL BLOOD [id number] 07:07:00* Test Item Value Reference Range Interpretation Comments POC ARTERIAL BLOOD GAS PH (test code = POCPHA) 7.365 7.35-7. 45 N POC ARTERIAL BLOOD GAS PCO2 (test code = INGZQR1V) 47.5 mmHg 35. 0-45 H POC TCO2 ARTERIAL (test code = POCTCO2) 28.6 POC ARTERIAL BLOOD GAS PO2 (test code = LOQFS3D) 90.0 mmHg 80-10 0.0 N POC HCO3 ARTERIAL (test code = JSJMGA3T) 27.2 MMOL/L 22.0-26.0 H POC BASE EXCESS (test code = POCBEA) 1.2 MMOL/L -4.0-4.0 N POC O2 SATURATION (test code = POCO2S) 96.5 % 90-100 N [id number] 07:07:00* Test Item Value Reference Range Interpretation Comments SODIUM (test code = NA/ABG) 137 MEQ/L 134-147 N [id number] 07:07:00* Test Item Value Reference Range Interpretation Comments POTASSIUM (test code = K/ABG) 4.5 MEQ/L 3.4-5.0 N [id number] 07:07:00* Test Item Value Reference Range Interpretation Comments CHLORIDE (test code = CL/ABG) MEQ/L 100-108 CREATININE [id number] 07:07:00* Test Item Value Reference Range Interpretation Comments CREATININE ABG (test code = CREAABG) mg/dL 0.8-1.3 [id number] 07:07:00* Test Item Value Reference Range Interpretation Comments HEMOGLOBIN (test code = HGB/ABG) G/DL 12.5-16.9 [id number] 07:07:00* Test Item Value Reference Range Interpretation Comments HEMATOCRIT (test code = HCT/ABG) % 37.5-50.7 POC IONIZED [id number] 07:07:00* Test Item Value Reference Range Interpretation Comments POC IONIZED CALCIUM (test code = POCCA) 1.23 MMOL/L 1.12-1.32 N POC [id number] 07:07:00* Test Item Value Reference Range Interpretation Comments POC GLUCOSE (test code = POCGLU) MG/DL 70-110 POC ARTERIAL BLOOD [id number] 07:07:00* Test Item Value Reference Range Interpretation Comments POC ARTERIAL BLOOD GAS PH (test code = POCPHA) 7.365 7.35-7. 45 N POC ARTERIAL BLOOD GAS PCO2 (test code = GPWMHO5Q) 47.5 mmHg 35. 0-45 H POC TCO2 ARTERIAL (test code = POCTCO2) 28.6 POC ARTERIAL BLOOD GAS PO2 (test code = EPNZR7U) 90.0 mmHg 80-10 0.0 N POC HCO3 ARTERIAL (test code = LHYHAT3U) 27.2 MMOL/L 22.0-26.0 H POC BASE EXCESS (test code = POCBEA) 1.2 MMOL/L -4.0-4.0 N POC O2 SATURATION (test code = POCO2S) 96.5 % 90-100 N [id number] 07:07:00* Test Item Value Reference Range Interpretation Comments SODIUM (test code = NA/ABG) 137 MEQ/L 134-147 N [id number] 07:07:00* Test Item Value Reference Range Interpretation Comments POTASSIUM (test code = K/ABG) 4.5 MEQ/L 3.4-5.0 N [id number] 07:07:00* Test Item Value Reference Range Interpretation Comments CHLORIDE (test code = CL/ABG) MEQ/L 100-108 CREATININE [id number] 07:07:00* Test Item Value Reference Range Interpretation Comments CREATININE ABG (test code = CREAABG) mg/dL 0.8-1.3 [id number] 07:07:00* Test Item Value Reference Range Interpretation Comments HEMOGLOBIN (test code = HGB/ABG) G/DL 12.5-16.9 [id number] 07:07:00* Test Item Value Reference Range Interpretation Comments HEMATOCRIT (test code = HCT/ABG) % 37.5-50.7 POC IONIZED [id number] 07:07:00* Test Item Value Reference Range Interpretation Comments POC IONIZED CALCIUM (test code = POCCA) 1.23 MMOL/L 1.12-1.32 N POC [id number] 07:07:00* Test Item Value Reference Range Interpretation Comments POC GLUCOSE (test code = POCGLU) 170 MG/DL 70-110 H POC ARTERIAL BLOOD [id number] 07:07:00* Test Item Value Reference Range Interpretation Comments POC ARTERIAL BLOOD GAS PH (test code = POCPHA) 7.365 7.35-7. 45 N POC ARTERIAL BLOOD GAS PCO2 (test code = UHKBXB1V) 47.5 mmHg 35. 0-45 H POC TCO2 ARTERIAL (test code = POCTCO2) 28.6 POC ARTERIAL BLOOD GAS PO2 (test code = FXHDC9V) 90.0 mmHg 80-10 0.0 N POC HCO3 ARTERIAL (test code = WOGXXZ5L) 27.2 MMOL/L 22.0-26.0 H POC BASE EXCESS (test code = POCBEA) 1.2 MMOL/L -4.0-4.0 N POC O2 SATURATION (test code = POCO2S) 96.5 % 90-100 N [id number] 07:07:00* Test Item Value Reference Range Interpretation Comments SODIUM (test code = NA/ABG) 137 MEQ/L 134-147 N [id number] 07:07:00* Test Item Value Reference Range Interpretation Comments POTASSIUM (test code = K/ABG) 4.5 MEQ/L 3.4-5.0 N [id number] 07:07:00* Test Item Value Reference Range Interpretation Comments CHLORIDE (test code = CL/ABG) MEQ/L 100-108 CREATININE [id number] 07:07:00* Test Item Value Reference Range Interpretation Comments CREATININE ABG (test code = CREAABG) mg/dL 0.8-1.3 [id number] 07:07:00* Test Item Value Reference Range Interpretation Comments HEMOGLOBIN (test code = HGB/ABG) G/DL 12.5-16.9 [id number] 07:07:00* Test Item Value Reference Range Interpretation Comments HEMATOCRIT (test code = HCT/ABG) 36 % 37.5-50.7 L POC IONIZED [id number] 07:07:00* Test Item Value Reference Range Interpretation Comments POC IONIZED CALCIUM (test code = POCCA) 1.23 MMOL/L 1.12-1.32 N POC [id number] 07:07:00* Test Item Value Reference Range Interpretation Comments POC GLUCOSE (test code = POCGLU) 170 MG/DL 70-110 H POC ARTERIAL BLOOD [id number] 07:07:00* Test Item Value Reference Range Interpretation Comments POC ARTERIAL BLOOD GAS PH (test code = POCPHA) 7.365 7.35-7. 45 N POC ARTERIAL BLOOD GAS PCO2 (test code = UEDCXQ4X) 47.5 mmHg 35. 0-45 H POC TCO2 ARTERIAL (test code = POCTCO2) 28.6 POC ARTERIAL BLOOD GAS PO2 (test code = CDOUI8H) 90.0 mmHg 80-10 0.0 N POC HCO3 ARTERIAL (test code = NWUTRM4S) 27.2 MMOL/L 22.0-26.0 H POC BASE EXCESS (test code = POCBEA) 1.2 MMOL/L -4.0-4.0 N POC O2 SATURATION (test code = POCO2S) 96.5 % 90-100 N [id number] 07:07:00* Test Item Value Reference Range Interpretation Comments SODIUM (test code = NA/ABG) 137 MEQ/L 134-147 N [id number] 07:07:00* Test Item Value Reference Range Interpretation Comments POTASSIUM (test code = K/ABG) 4.5 MEQ/L 3.4-5.0 N [id number] 07:07:00* Test Item Value Reference Range Interpretation Comments CHLORIDE (test code = CL/ABG) MEQ/L 100-108 CREATININE [id number] 07:07:00* Test Item Value Reference Range Interpretation Comments CREATININE ABG (test code = CREAABG) mg/dL 0.8-1.3 [id number] 07:07:00* Test Item Value Reference Range Interpretation Comments HEMOGLOBIN (test code = HGB/ABG) 12.2 G/DL 12.5-16.9 L [id number] 07:07:00* Test Item Value Reference Range Interpretation Comments HEMATOCRIT (test code = HCT/ABG) 36 % 37.5-50.7 L POC IONIZED [id number] 07:07:00* Test Item Value Reference Range Interpretation Comments POC IONIZED CALCIUM (test code = POCCA) 1.23 MMOL/L 1.12-1.32 N POC [id number] 07:07:00* Test Item Value Reference Range Interpretation Comments POC GLUCOSE (test code = POCGLU) 170 MG/DL 70-110 H POC ARTERIAL BLOOD [id number] 07:07:00* Test Item Value Reference Range Interpretation Comments POC ARTERIAL BLOOD GAS PH (test code = POCPHA) 7.365 7.35-7. 45 N POC ARTERIAL BLOOD GAS PCO2 (test code = KXNLOC9I) 47.5 mmHg 35. 0-45 H POC TCO2 ARTERIAL (test code = POCTCO2) 28.6 POC ARTERIAL BLOOD GAS PO2 (test code = KBXAA0F) 90.0 mmHg 80-10 0.0 N POC HCO3 ARTERIAL (test code = LSABEI6T) 27.2 MMOL/L 22.0-26.0 H POC BASE EXCESS (test code = POCBEA) 1.2 MMOL/L -4.0-4.0 N POC O2 SATURATION (test code = POCO2S) 96.5 % 90-100 N [id number] 07:07:00* Test Item Value Reference Range Interpretation Comments SODIUM (test code = NA/ABG) 137 MEQ/L 134-147 N [id number] 07:07:00* Test Item Value Reference Range Interpretation Comments POTASSIUM (test code = K/ABG) 4.5 MEQ/L 3.4-5.0 N [id number] 07:07:00* Test Item Value Reference Range Interpretation Comments CHLORIDE (test code = CL/ABG) 103 MEQ/L 100-108 N CREATININE [id number] 07:07:00* Test Item Value Reference Range Interpretation Comments CREATININE ABG (test code = CREAABG) mg/dL 0.8-1.3 [id number] 07:07:00* Test Item Value Reference Range Interpretation Comments HEMOGLOBIN (test code = HGB/ABG) 12.2 G/DL 12.5-16.9 L [id number] 07:07:00* Test Item Value Reference Range Interpretation Comments HEMATOCRIT (test code = HCT/ABG) 36 % 37.5-50.7 L POC IONIZED [id number] 07:07:00* Test Item Value Reference Range Interpretation Comments POC IONIZED CALCIUM (test code = POCCA) 1.23 MMOL/L 1.12-1.32 N POC [id number] 07:07:00* Test Item Value Reference Range Interpretation Comments POC GLUCOSE (test code = POCGLU) 170 MG/DL 70-110 H POC ARTERIAL BLOOD [id number] 07:07:00* Test Item Value Reference Range Interpretation Comments POC ARTERIAL BLOOD GAS PH (test code = POCPHA) 7.365 7.35-7. 45 N POC ARTERIAL BLOOD GAS PCO2 (test code = QGUNZT9G) 47.5 mmHg 35. 0-45 H POC TCO2 ARTERIAL (test code = POCTCO2) 28.6 POC ARTERIAL BLOOD GAS PO2 (test code = OIART6J) 90.0 mmHg 80-10 0.0 N POC HCO3 ARTERIAL (test code = CMIHRF5V) 27.2 MMOL/L 22.0-26.0 H POC BASE EXCESS (test code = POCBEA) 1.2 MMOL/L -4.0-4.0 N POC O2 SATURATION (test code = POCO2S) 96.5 % 90-100 N [id number] 07:07:00* Test Item Value Reference Range Interpretation Comments SODIUM (test code = NA/ABG) 137 MEQ/L 134-147 N [id number] 07:07:00* Test Item Value Reference Range Interpretation Comments POTASSIUM (test code = K/ABG) 4.5 MEQ/L 3.4-5.0 N [id number] 07:07:00* Test Item Value Reference Range Interpretation Comments CHLORIDE (test code = CL/ABG) 103 MEQ/L 100-108 N CREATININE [id number] 07:07:00* Test Item Value Reference Range Interpretation Comments CREATININE ABG (test code = CREAABG) 1.2 mg/dL 0.8-1.3 N [id number] 07:07:00* Test Item Value Reference Range Interpretation Comments HEMOGLOBIN (test code = HGB/ABG) 12.2 G/DL 12.5-16.9 L [id number] 07:07:00* Test Item Value Reference Range Interpretation Comments HEMATOCRIT (test code = HCT/ABG) 36 % 37.5-50.7 L POC IONIZED [id number] 07:07:00* Test Item Value Reference Range Interpretation Comments POC IONIZED CALCIUM (test code = POCCA) 1.23 MMOL/L 1.12-1.32 N POC [id number] 07:07:00* Test Item Value Reference Range Interpretation Comments POC GLUCOSE (test code = POCGLU) 170 MG/DL 70-110 H [id number] 05:54:00* Test Item Value Reference Range Interpretation Comments GLUBED (test code = GLUBED) 128 MG/DL 70-110 H Performed by certified crusher and blender operator at [facility] THROMBOPLASTIN TIME [id number] 05:39:00* Test Item Value Reference Range Interpretation Comments THROMBOPLASTIN TIME PARTIAL (test code = PTT) 56.3 Seconds 25.0-39. 5 H Therapeutic Range: 61.8-83.8 Sec Effective 08/27/2013 CBC W/AUTO [id number] 05:35:00* Test Item Value Reference Range Interpretation Comments WHITE BLOOD CELL (test code = WBC) 10.70 x10 3/uL 4.5-11.0 N RED BLOOD CELL (test code = RBC) 4.25 x10 6/uL 4.00-5.60 N HEMOGLOBIN (test code = HGB) 11.6 g/dL 12.5-16.9 L HEMATOCRIT (test code = HCT) 37.9 % 37.5-50.7 N MEAN CELL VOLUME (test code = MCV) 89.2 fL 81.0-99.0 N MEAN CELL HGB (test code = MCH) 27.3 pg 27.0-33.0 N MEAN CELL HGB CONCETRATION (test code = MCHC) 30.6 g/dL 33.0-37. 0 L RED CELL DISTRIBUTION WIDTH CV (test code = RDW) 15.6 % 11.5- 14.5 H RED CELL DISTRIBUTION WIDTH SD (test code = RDW-SD) 50.5 fL 37 .0-54.0 N PLATELET COUNT (test code = PLT) 260 x10 3/uL 150-400 N MEAN PLATELET VOLUME (test code = MPV) 10.7 fL 7.0-9.0 H NEUTROPHIL % (test code = NT%) 52.1 % 56.0-77.0 L IMMATURE GRANULOCYTE % (test code = IG%) 0.5 % 0.0-2.0 N LYMPHOCYTE % (test code = LY%) 26.5 % 14.0-32.0 N MONOCYTE % (test code = MO%) 7.7 % 4.8-9.0 N EOSINOPHIL % (test code = EO%) 12.8 % 0.3-3.7 H BASOPHIL % (test code = BA%) 0.4 % 0.0-2.0 N NUCLEATED RBC % (test code = NRBC%) 0.0 % 0-0 N NEUTROPHIL # (test code = NT#) 5.58 x10 3/uL 2.0-7.6 N IMMATURE GRANULOCYTE # (test code = IG#) 0.05 x10 3/uL 0.00-0.03 H LYMPHOCYTE # (test code = LY#) 2.84 x10 3/uL 1.0-3.8 N MONOCYTE # (test code = MO#) 0.82 x10 3/uL 0.1-0.8 H EOSINOPHIL # (test code = EO#) 1.37 x10 3/uL 0.0-0.2 H BASOPHIL # (test code = BA#) 0.04 x10 3/uL 0.0-0.2 N NUCLEATED RBC # (test code = NRBC#) 0.00 x10 3/uL 0.0-0.1 N MANUAL DIFF REQUIRED (test code = MDIFF) NO COMMENTS: Daily while on [id number] 21:10:00* Test Item Value Reference Range Interpretation Comments GLUBED (test code = GLUBED) 217 MG/DL 70-110 H Performed by certified crusher and blender operator at [facility] [id number] 17:17:00* Test Item Value Reference Range Interpretation Comments GLUBED (test code = GLUBED) 211 MG/DL 70-110 H Performed by certified crusher and blender operator at [facility] [id number] 13:52:00* Test Item Value Reference Range Interpretation Comments GLUBED (test code = GLUBED) 193 MG/DL 70-110 H Performed by certified crusher and blender operator at [facility] - CT HEAD/BRAIN W/O [id number] 20:36:00 Name: TORI GREGORY [facility] : 1945 Age/S: 68 / M [address] [facility] Unit #: [id number] Loc: NIM[place] [address] Phys: Nayeli Thomson MD Acct: [id number] Dis Date: Status: UNK PHONE #: [phone] Exam Date: 10/01/20142025 FAX #: [phone] Reason: dizziness EXAMS: CPT CODE: [id number] CT HEAD/BRAIN W/O CONT 26514 REASON FOR EXAM: dizziness EXAM ORDER DATE: [...] and signed by: Norman Hough M.D. CC: Nyaeli Thomson MD Technologist:RT ISMA(R) CT CTDI: 73 DLP: 1261 [facility] Date/Time: 10/01/2014 (2035) [email or web address] Orig Print D/T: S: 10/01/2014 (2038) CTDI: 73 DLP: 1261 PAGE 1 Signed Report - XR CHEST 1 [id number] 20:22:00 FAX: Nayeli Boggs [phone] [place]: St: [facility] Name: TORI SOMERS [facility] : [birth year] Age/S: 68/M [address] [facility] Unit #: [id number] Loc: RASHA[place] N[place] [address] Phys: Nayeli Thomson MD Acct: [id number] Dis Date: Status: UNK PHONE #: [phone] Exam Date: 10/01/20142017 FAX #: [phone] Reason: dizziness EXAMS: CPT CODE: [id number] XR CHEST 1 V 40222 REASON FOR EXAM: dizziness EXAM ORDER DATE: 10/01/2014 7:57 PM Ordering Jin: Mark Thomson MD PROCEDURE: - XR CHEST [...] CC: Nayeli Thomson MD Technologist: MIRYAM Lawrence Trnric Da te/Time/By: 10/01/2014 (2021) : By: KortneyVTL Orig Print D/T: S: 10/01 (2024) PAGE 1 Signed Report - XR RIBS UNI W/CXR 3+V [id number] 19:50:00 FAX: Rex Noland MD [phone] [place]: [facility]: [facility] FAX: Jama John [facility] [phone] Name: TORI GREGORY [facility] : 1945 Age/S: 65/M [address] [facility] Unit #: [id number] Loc: [facility] [place] [address] Phys: Cheikh Dodson MD Acct: [id number] Dis Date: Status: UNK PHONE #: [phone] Exam Date: 08/27/2011 1253 FAX #: [phone] Reason: left mid-rib pain s/p fall EXAMS: CPT CODE: [id number] XR RIBS UNI W/CXR 3+[place] 186[address] HISTORY: Left rib pain post fall trauma. [...] S: 07/31 (1953) PAGE 1 Signed Repor t
--- OUTSIDE RECORDS SUMMARY | 2020-03-01 23:57 | XMS REPORT | Continuity of Care Document ---
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 Adverse Reaction Info Not Available Adverse Reaction 07/01/2019 [facility] Immunizations No Data Provided for This Section [...] Value Date Comments Source Weight 180 07/01/2019 [facility] Heart Rate 80 07/01/2019 [facility] Diastolic (mm Hg) 68 07/01/2019 [facility] Systolic (mm Hg) 120 07/01/2019 [facility] Encounters No Data Provided for This Section [...]
--- OUTSIDE RECORDS SUMMARY | 2020-03-01 23:59 | XMS REPORT | Continuity of Care Document ---
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 [id number] 2019 00:00:00 [facility] Problems Condition Name Condition Details Condition Category [...] Ahmed Diagnosis Active 2020-01-31 02:58:51 Jerome Gaines Obesity (BMI 30.0-34.9) Obes ity (BMI 30.0-34.9) Active Problem 01/31/2020 Chintan Woodson Problem Active 2020-01-31 02:58 :51 Jerome Gaines Precordial pain Prec ordial pain Active Diagnosis 01/31/2020 [facility] Diagnosis Active 2020-01-31 02:58:51 Jerome Gaines Breath shortness Shani th shortness Active Diagnosis 01/31/2020 [facility] Diagnosis Active 2020-01-31 02:58:51 [facility] Other symptoms involving cardiovascular system Other symptoms involving cardiovascular system Active Diagnosis 01/31/2020 [facility] Diagnosis Active 2020-01-31 02:58:51 [facility] 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 N.Heather.A. Active Info Not Available 2019-07-01 00:00:00 Jerome Gaines No Known Allergies DA Active U 2018-11-25 00:00:00 [facility] No Known Allergies DA Active U 2014-10-01 00:00:00 [facility] No Known Allergies DA Active U 2012-08-18 00:00:[address] [facility] Medications Ordered Medication Name Filled Medication Name Start Date Stop Da te Current Medication? Ordering Clinician Indication Dosage Frequency Signature (SIG) Comments Components Source Atorvastatin Calcium 2020-01-31 02:58:51 Yes Chintan Woodson 1 tablet [facility] Finasteride 2020-01-31 02:58:51 Yes Chintan Woodson 1 tablet [facility] Metoprolol Tartrate 2020-01-31 02:58:51 Yes Chintan Woodson 1 tablet with food [facility] ASPRIN 81 2020-01-31 02:58:51 Yes Ahmed Ahmed not defined [facility] Melatonin 2020-01-31 02:58:51 Yes Ahmed Ahmed as directed [facility] Pantoprazole Sodium 2020-01-31 02:58:51 Yes Ahmed Ahmed 1 tablet [facility] Nitrofurantoin 2020-01-31 02:58:51 Yes Ahmed Ahmed 10 ml with food [facility] Metformin HCl 2020-01-31 02:58:51 Yes Ahmed Ahmed 1 tablet with a meal [facility] Clopidogrel Bisulfate 2020-01-31 02:58:51 Yes Ahmed Ahmed 1 tablet [facility] Digoxin 2020-01-31 02:58:51 Yes Ahmed Ahmed as di rected [facility] Lisinopril 2020-01-31 02:58:51 Yes Ahmed Ahmed 1 tablet [facility] Tamsulosin HCl 2020-01-31 02:58:51 Yes Ahmed Ahmed 1 capsule [facility] Mens One Daily 2020-01-31 02:58:51 Yes Ahmed Ahmed not defined [facility] Tramadol HCl 2020-01-31 02:58:51 Yes Ahmed Ahmed 5 ml as needed [facility] Aspirin (Aspir 81) 81 Mg Tablet. Aspirin (Aspir 81) 81 Mg Tablet. Yes 81 Daily [facility] Atorvastatin Calcium 20 Mg Tablet Atorvastatin Calcium 20 Mg Tablet Yes 40 Bedtime [facility] Cholecalciferol (Vitamin D3) (Vitamin D3) 2,000 Unit T ablet Cholecalciferol (Vitamin D3) (Vitamin D3) 2,000 Unit Tablet Yes Daily [facility] Finasteride 5 Mg Tablet Finasteride 5 Mg Tablet Yes 5 Daily [facility] Insulin Glargine (Lantus 3ML Pen) 100 Units/1 Ml Inj I nsulin Glargine (Lantus 3ML Pen) 100 Units/1 Ml Inj Yes 40 Bedtime [facility] Insulin Lispro (Humalog) 100 Unit/1 Ml Insuln.pen Insu ashley Lispro (Humalog) 100 Unit/1 Ml Insuln.pen Yes 5 Three Times A Day [facility] Lisinopril 2.5 Mg Tablet Lisinopril 2.5 Mg Tablet Yes 2.5 Bedtime [facility] Metformin Hcl 500 Mg Tablet Metformin Hcl 500 Mg Tablet Yes 1000 Twice A Day [facility] Metoprolol Succinate 25 Mg Tab.er.24h Metoprolol Succinate 25 Mg Ta b.er.24h Yes 25 Twice A Day [facility] Multivitamin/Iron/Folic Acid (Centrum Adults Tablet) 1 Each Tablet Multivitamin/Iron/Folic Acid (Centrum Adults Tablet) 1 Each Tablet Yes 1 Daily [facility] Pregabalin (Lyrica) 50 Mg Cap Pregabalin (Lyrica) 50 Mg Cap Yes 50 Daily [facility] Tamsulosin Hcl (Flomax*) 0.4 Mg Cap Tamsulosin Hcl (Flomax*) 0.4 Mg C ap Yes .4 Daily [facility] Digoxin 125 Mcg Tablet, 0.125 Mg Oral Digoxin 125 Mcg Tablet, 0. 125 Mg Oral 2019-08-22 00:00:00 No .125 Daily [facility] Cholecalciferol (Vitamin D3) (Vitamin D) 400 Unit Caps ule, Unknown Dose Oral Cholecalciferol (Vitamin D3) (Vitamin D) 400 Unit Capsule, Unknown Dose Oral 2019-08-18 00:00:00 No Daily [facility] Lisinopril 10 Mg Tablet, 10 Mg Oral Lisinopril 10 Mg Tablet, 10 Mg Oral 2019-08-18 00:00:00 No 10 Bedtime [facility] Vital Signs Vital Name Observation Time Observation Value Comments Source Weight 2019-07-01 16:30:00 [facility] Heart Rate 2019-07-01 16:30:00 Jerome Gaines Diastolic (mm Hg) 2019-07-01 16:30:00 Lucila Gaines Systolic (mm Hg) 2019-07-01 16:30:00 Chris Gaines Procedures Procedure Date / Time Performed Performing Clinician [facility] e Cystoscopy with retrograde pyelography 2019-08-20 00:00:00 BERTIN URBINA [facility] TURP (transurethral resection of prostate) 2019-08-20 00:00:00 BERTIN TOUSSAINT [facility] X-ray of chest, two views 2019-08-18 00:00:00 BERTIN CARRASCO CH I [facility] Encounters Start Date/Time End Date/Time Encounter Type Admission Type [facility] Care Department Encounter ID Source 2019-08-20 10:28:00 2019-08-23 16:45:00 Discharged Inpatient [address] [facility] [id number] [facility] 2019-07-01 11:30:00 2019-07-01 11:30:00 Outpatient [facility] Al[facility] Alvino [id number] [employer] 2019-06-06 14:29:00 2019-06-06 14:29:00 Outpatient [facility] Pa [facility] Alvino [id number] [employer] 2018-12-24 11:38:00 2018-12-24 11:38:00 Registered Clinic [address] [facility] [id number] [facility] Results Test Description Test Time Test Comments Results Result Comments Source Bedside Glucose 2019-08-23 12:19:00 Test Item Bedside Glucose (test code = 76925-5) 121 70-120 H Meter [id number] 2019-08-23 08:56:00* Test Item Value Reference Range Interpretation Comments Sodium Level (test code = 2951-2) 140 136-145 [facility] [id number] 08:56:00* Test Item Value Reference Range Interpretation Comments Potassium Level (test code = 2823-3) 4.4 3.5-5.1 [facility]ide [id number] 08:56:00* Test Item Value Reference Range Interpretation Comments Chloride Level (test code = 2075-0) 107 98-107 [facility] Houston[facility]bon Dioxide [id number] 08:56:00* Test Item Value Reference Range Interpretation Comments Carbon Dioxide Level (test code = 2028-9) 25 22-29 [facility] HoustonAnion [id number] 08:56:00* Test Item Value Reference Range Interpretation Comments Anion Gap (test code = 22337-8) 12.4 8-16 [facility] Urea [id number] 08:56:00* Test Item Value Reference Range Interpretation Comments Blood Urea Nitrogen (test code = 3094-0) 11 7-26 [facility]inine2020-01-25 08:56:00* Test Item Value Reference Range Interpretation Comments Creatinine (test code = 2160-0) 0.76 0.72-1.25 [facility]UN/Creatinine [id number] 08:56:00* Test Item Value Reference Range Interpretation Comments BUN/Creatinine Ratio (test code = 3097-3) 14 01-21 [facility] Glomerular Filtration Rate 2019-08-23 08:56:00* Test Item Value Reference Range Interpretation Comments Estimat Glomerular Filtration Rate (test code = 537763507) > 60 >60 Ranges were taken from the National Kidney Disease Education Program and the [facility] Kidney Foundation literature.Reference ranges:60 or greater: Hciszf96-05 ( for 3 consecutive months): Chronic kidney disease 15 or less: Kidney failureNex[facility] Children's Hospital HoustonGlucose Oxvgq1439-94-03 08:56:00* Test Item Value Reference Range Interpretation Comments Glucose Level (test code = CJJ2214) 106 74-118 [facility]Calcium [id number] 08:56:00* Test Item Value Reference Range Interpretation Comments Calcium Level (test code = 63375-2) 8.6 8.4-10.2 [facility] HoustonWhite Blood [id number] 08:31:00* Test Item Value Reference Range Interpretation Comments White Blood Count (test code = 6690-2) 11.82 4.8-10.8 H [facility] HoustonRed Blood [id number] 08:31:00* Test Item Value Reference Range Interpretation Comments Red Blood Count (test code = 789-8) 3.37 4.3-5.7 L [facility] HoustonHemoglobin2020-01-25 08:31:00* Test Item Value Reference Range Interpretation Comments Hemoglobin (test code = 51659-7) 10.0 14.0-18.0 L [facility] HoustonHematocrit2020-01-25 08:31:00* Test Item Value Reference Range Interpretation Comments Hematocrit (test code = 4544-3) 30.7 38.2-49.6 L [facility] HoustonMean Corpuscular [id number] 08:31:00* Test Item Value Reference Range Interpretation Comments Mean Corpuscular Volume (test code = 787-2) 91.1 81-99 [facility] HoustonMean Corpuscular Tavjscwvor0731-90-62 08:31:00* Test Item Value Reference Range Interpretation Comments Mean Corpuscular Hemoglobin (test code = 785-6) 29.7 28-32 [facility] HoustonMean Corpuscular Hemoglobin Concent 2019-08-23 08:31:00* Test Item Value Reference Range Interpretation Comments Mean Corpuscular Hemoglobin Concent (test code = 786-4) 32.6 31-35 [facility] HoustonRed Cell Distribution Twbjp2249-01-70 08:31:00* Test Item Value Reference Range Interpretation Comments Red Cell Distribution Width (test code = 38823-6) 14.2 11.7 -14.4 [facility] HoustonPlatelet [id number] 08:31:00* Test Item Value Reference Range Interpretation Comments Platelet Count (test code = 777-3) 225 140-360 [facility] HoustonNeutrophils (%) (Auto)2019-08-23 08:31:00 * Test Item Value Reference Range Interpretation Comments Neutrophils (%) (Auto) (test code = 84091-5) 61.1 38.7-80.0 [facility] HoustonLymphocytes (%) (Auto)2019-08-23 08:31:00 * Test Item Value Reference Range Interpretation Comments Lymphocytes (%) (Auto) (test code = 736-9) 16.9 18.0-39.1 L [facility] HoustonMonocytes (%) (Auto)2019-08-23 08:31:00* Test Item Value Reference Range Interpretation Comments Monocytes (%) (Auto) (test code = 5905-5) 7.4 4.4-11.3 [facility] HoustonEosinophils (%) (Auto)2019-08-23 08:31:00 * Test Item Value Reference Range Interpretation Comments Eosinophils (%) (Auto) (test code = 713-8) 13.9 0.0-6.0 H [facility] HoustonBasophils (%) (Auto)2019-08-23 08:31:00* Test Item Value Reference Range Interpretation Comments Basophils (%) (Auto) (test code = 706-2) 0.3 0.0-1.0 [facility] HoustonIM GRANULOCYTES %2019-08-23 08:31:00* Test Item Value Reference Range Interpretation Comments IM GRANULOCYTES % (test code = IM GRANULOCYTES %) 0.4 0.0- 1.0 [facility] HoustonNeutrophils # (Auto)2019-08-23 08:31:00* Test Item Value Reference Range Interpretation Comments Neutrophils # (Auto) (test code = 751-8) 7.2 2.1-6.9 H [facility] HoustonLymphocytes # (Auto)2019-08-23 08:31:00* Test Item Value Reference Range Interpretation Comments Lymphocytes # (Auto) (test code = 37227-4) 2.0 1.0-3.2 [facility] HoustonMonocytes # (Auto)2019-08-23 08:31:00* Test Item Value Reference Range Interpretation Comments Monocytes # (Auto) (test code = 742-7) 0.9 0.2-0.8 H [facility] HoustonEosinophils # (Auto)2019-08-23 08:31:00* Test Item Value Reference Range Interpretation Comments Eosinophils # (Auto) (test code = 711-2) 1.6 0.0-0.4 H [facility] HoustonBasophils # (Auto)2019-08-23 08:31:00* Test Item Value Reference Range Interpretation Comments Basophils # (Auto) (test code = 704-7) 0.0 0.0-0.1 [facility] HoustonAbsolute Immature Granulocyte (auto 2019-08-23 08:31:00* Test Item Value Reference Range Interpretation Comments Absolute Immature Granulocyte (auto ([place] t code = Absolute Immature Granulocyte (auto) 0.05 0-0.1 [facility] HoustonMagnesium [id number] 17:37:00* Test Item Value Reference Range Interpretation Comments Magnesium Level (test code = 86193-0) 1.4 1.3-2.1 [facility] HoustonCHEST 2 [id number] 14:07:00 [facility] [address] [place] [address] Patient Name: TORI TRIPLETT MR #: [id number] : 1945 Age/Sex: 73/M Req #: [id number] Adm Physician: Ordered by: BERTIN CARRASCO MD Report #: [id number] Location: OR Room/Bed: Procedure: [id number] DX/PRESTON ST 2 VIEWS Exam Date: 08/18/19 [...] BERTIN URBINA MD - XR C-SPINE 4-5 [id number] 12:17:00 FAX: Aki Espitia MD [phone] Kinder: O St: REG Name: TORI SOMERS [facility] : [birth year] Age/S: 73/M [address] [facility] Unit #: [id number] Loc: [place] [address] Phys: Aki Mtz MD Acct: [id number] Dis Date: Status: REG CLI PHONE #: [phone] Exam Date: 02/28/2019 1158 FAX #: [phone] Reason: CERVICAL SPINE PAIN EXAMS: CPT CODE: [id number] XR C-SPINE 4-5 V 42838 HISTORY: Pain. CLARICE RISON: None available. 5 [...] Mtz Technologist: RT ANAI(Myriam) Trnscrd Date/Time/By: 02/28/2019 (3247) : By: [email or web address] Orig Print D/T: S: 02/28/2019 (8075) PAGE 1 Signed R eport [id number] 04:55:00* Test Item Value Reference Range Interpretation Comments GLUBED (test code = GLUBED) 146 MG/DL 70-110 H Performed by certified welding machine operator submerged arc at [facility] - US RETRO [id number] 14:22:00 Name: TORI GREGORY [facility] : 1945 Age/S: 73 / M [address] [place] [address] Unit #: [id number] Loc: [place] [address] Phys: Bertin Carrasco MD Acct: [id number] Dis Date: Status: ADM IN PHONE #: [phone] Exam Date: 02/08/2019 1354 FAX #: [phone] Reason: UTI EXAMS: CPT CODE: [id number] US RETRO LTD [address]294 PROCEDURE: RENAL ULTRASOUND INDICATION: Urinary tract infection [...] or renal stones. 2. Enlarged prostate SL: [id number] at 1422 Reported and signed by: Sb Her M.D. CC: Bertin Carrasco MD; Aki Mtz MD Technologist: Rashmi Soler RDMS(OB)(AB) Trnscb Date/Time: 02/08/2019 (1422) [id number] Orig Print D/T: S: 02/08/2019 (1242) Probe: PAGE 1 Signed Report [id number] 11:53:00* Test Item Value Reference Range Interpretation Comments GLUBED (test code = GLUBED) 86 MG/DL 70-110 N Performed by certified welding machine operator submerged arc at [facility] [id number] 08:28:00* Test Item Value Reference Range Interpretation Comments GLUBED (test code = GLUBED) 108 MG/DL 70-110 N Performed by certified welding machine operator submerged arc at [facility] [id number] 16:54:00* Test Item Value Reference Range Interpretation Comments GLUBED (test code = GLUBED) 129 MG/DL 70-110 H Performed by certified welding machine operator submerged arc at [facility] BASIC METABOLIC [id number] 14:33:00* Test Item Value Reference Range Interpretation [...] code = CA) 8.8 mg/dL 8.0-10.5 N [id number] 14:33:00* Test Item Value Reference Range Interpretation Comments MAGNESIUM (test code = MAG) 1.40 mg/dL 1.8-2.4 L CBC W/AUTO [id number] 14:20:00* Test Item Value Reference Range Interpretation [...] DIFF REQUIRED (test code = MDIFF) NO [id number] 12:02:00* Test Item Value Reference Range Interpretation Comments GLUBED (test code = GLUBED) 106 MG/DL 70-110 N Performed by certified welding machine operator submerged arc at [facility] [id number] 09:28:00* Test Item Value Reference Range Interpretation Comments GLUBED (test code = GLUBED) 152 MG/DL 70-110 H Performed by certified welding machine operator submerged arc at [facility] [id number] 09:01:00* Test Item Value Reference Range Interpretation Comments GLUBED (test code = GLUBED) 119 MG/DL 70-110 H Performed by certified welding machine operator submerged arc at [facility] [id number] 18:28:00* Test Item Value Reference Range Interpretation Comments GLUBED (test code = GLUBED) 122 MG/DL 70-110 H Performed by certified welding machine operator submerged arc at [facility] [id number] 13:20:00* Test Item Value Reference Range Interpretation Comments GLUBED (test code = GLUBED) 172 MG/DL 70-110 H Performed by certified welding machine operator submerged arc at [facility] [id number] 13:20:00* Test Item Value Reference Range Interpretation Comments GLUBED (test code = GLUBED) 126 MG/DL 70-110 H Performed by certified welding machine operator submerged arc at [facility] [id number] 21:12:00* Test Item Value Reference Range Interpretation Comments GLUBED (test code = GLUBED) 207 MG/DL 70-110 H Performed by certified welding machine operator submerged arc at [facility] [id number] 20:54:00* Test Item Value Reference Range Interpretation [...] 3 troponins total (including troponin done in ED)[id number] 17:11:00* Test Item Value Reference Range Interpretation [...] any concentrations <2 ng/mL are obtained. URINALYSIS [id number] 12:24:00* Test Item Value Reference Range Interpretation [...] MUCU) TRACE /LPF NONE SEEN COMMENTS: Clean [id number] 11:13:00* Test Item Value Reference Range Interpretation Comments TROPONIN-I (test code = TROPI) 0.020 ng/mL 0.000-0.045 N Negative: <= 0.045 Positive: >= 0.046 Correlation with serial results, other cardiac markers andclinical findings is necessary to determine the clinicalsignificance of this result. Results using different methodologies should not be comparedto one another as quantitative results may vary by method. - XR CHEST 1 [id number] 11:02:00 FAX: Lupe Gracia DO [phone] Kinder: St: PRE Name: Asrh JAYSKIP HENDERSONTORI [facility] : [birth year] Age/S: 73/M [address] [place] [address] Blvd Unit #: [id number] Loc: VIDHI2 [place] [address] Phys: Lupe Glaser Acct: [id number] Dis Date: Status: PRE ER PHONE #: [phone] Exam Date: 02/05/2019 1049 FAX #: [phone] Reason: FEVER EXAMS: CPT CODE: [id number] XR CHEST 1 V 80685 PROCEDURE: CHEST SINGLE VIEW INDICATION: Fever COMPARISON: [...] the differential. N o definite pneumonia. SL: [id number] at 1102 Reported and signed by: Iker Miller M.D. CC: Lupe Glaser DO Technologist: RT Judy(Myriam) Trnscrd Date/Time/By: 02/05/2019 (1102) : By: Yessy Orig Print D/T: S: 02/05/2019 (2892) PAGE 1 Signed Report TROPONIN-I [id number] 10:56:00* Test Item Value Reference Range Interpretation Comments TROPONIN-I RAPID (test code = TROPIRAP) 0.02 ng/mL 0.00-0.08 N Performed by certified welding machine operator submerged arc at [facility] Negative: <= 0.08 Positive: >= 0.09An elevated troponin value alone is not sufficient todiagnose a myocardial infarction. Rather, the patient sclinical presentation (history, physical exam) and ECGshould be used in conjunction with troponin in thediagnostic evaluation of suspected myocardial infarction. Aserial sampling protocol is recommended to facilitate the identification of temporal changes in troponin levels characteristic of LA. LACTIC ACID [id number] 10:56:00* Test Item Value Reference Range Interpretation Comments LACTIC ACID POC (test code = LACTP) 1.6 MMOL/L 0.90-1.70 N Performed by certified welding machine operator submerged arc at [facility] CBC W/AUTO [id number] 10:53:00* Test Item Value Reference Range Interpretation [...] (test code = MDIFF) NO CHEMISTRY 8 [id number] 10:44:00* Test Item Value Reference Range Interpretation [...] code = GFRBED) 78 ML/MIN CHEMISTRY 8 [id number] 10:44:00* Test Item Value Reference Range Interpretation Comments ISTAT-SODIUM (test code = NAP) 141 MMOL/L 134-147 N ISTAT-POTASSIUM (test code = KP) 4.3 MMOL/L 3.4-5.0 N ISTAT-CHLORIDE (test code = CLP) 104 MMOL/L 100-108 N Performed by certified welding machine operator submerged arc at [facility] ISTAT CARBON DIOXIDE (test code [...] GFRBED) 78 ML/MIN SP LUMBAR, COMPLETE MIN [id number] 12:30:00 [place] [address] Patient Name: TORI TRIPLETT MR #: [id number] : 1945 Age/Sex: 73/M Req #: [id number] Adm Physician: Ordered by: AKI MTZ MD Report #: [id number] Location: [facility] Room/Bed: Procedure: [id number] DX/ SP LUMBAR, COMPLETE MIN 4VW Exam [...] 12 33 COPY TO: AKI MTZ MD [id number] 16:54:00* Test Item Value Reference Range Interpretation Comments GLUBED (test code = GLUBED) 136 MG/DL 70-110 H Performed by certified welding machine operator submerged arc at [facility] [id number] 12:43:00* Test Item Value Reference Range Interpretation Comments GLUBED (test code = GLUBED) 129 MG/DL 70-110 H Performed by certified welding machine operator submerged arc at [facility] [id number] 07:50:00* Test Item Value Reference Range Interpretation Comments GLUBED (test code = GLUBED) 162 MG/DL 70-110 H Performed by certified welding machine operator submerged arc at [facility] [id number] 22:23:00* Test Item Value Reference Range Interpretation Comments GLUBED (test code = GLUBED) 168 MG/DL 70-110 H Performed by certified welding machine operator submerged arc at [facility] [id number] 15:49:00* Test Item Value Reference Range Interpretation Comments GLUBED (test code = GLUBED) 158 MG/DL 70-110 H Performed by certified welding machine operator submerged arc at [facility] [id number] 11:05:00* Test Item Value Reference Range Interpretation Comments GLUBED (test code = GLUBED) 206 MG/DL 70-110 H Performed by certified welding machine operator submerged arc at [facility] [id number] 07:29:00* Test Item Value Reference Range Interpretation Comments GLUBED (test code = GLUBED) 156 MG/DL 70-110 H Performed by certified welding machine operator submerged arc at [facility] [id number] 21:29:00* Test Item Value Reference Range Interpretation Comments GLUBED (test code = GLUBED) 248 MG/DL 70-110 H Performed by certified welding machine operator submerged arc at [facility] [id number] 17:22:00* Test Item Value Reference Range Interpretation Comments GLUBED (test code = GLUBED) 138 MG/DL 70-110 H Performed by certified welding machine operator submerged arc at [facility] - US SCROTUM AND [id number] 17:17:00 Name: TORI TRIPLETT [facility] : 1945 Age/S: 73 / M [address] [place] [address] Unit #: [id number] Loc: [place] [address] Phys: Aki Mtz MD Acct: [id number] Dis Date: Status: ADM IN PHONE #: [phone] Exam Date: 2018 1636 FAX #: [phone] Reason: SCROTUM, TESICULAR PAIN/DISCOMFORT EXAMS: CPT CODE: [id number] US SCROTUM AND CNTS 89566 PROCEDURE: SCROTAL ULTRASOUND INDICATION: Right testicular pain [...] Si gned Report (CONTINUED) Name: TORI TRIPLETT [facility] : 1945 Age/S: 73 / M [address] [facility] Unit #: [id number] Loc: [place] [address] Phys: Aki Mtz MD Acct: [id number] Dis Date: Status: ADM IN PHONE #: [phone] Exam Date: 11/28/20181635 FAX #: [phone] Reason: SCROTUM, TESICULAR P AIN/DISCOMFORT EXAMS: CPT CODE: [id number] US SCROTUM AND CNTS 15118 <Continued> at 1717 Reported and signed by: Miki Swan M.D. CC: Aki Mtz MD Technologist: Brent Savage RDMS (AB) (OB) Trnscb Date/Time: 2018 (171) tNOEMY Orig Print D/T: S: 2018 (1719) Probe: PAGE 2 Signed Report - US SCROTUM AND [id number] 17:17:00 Name: TORI GREGORY [facility] : 1945 Age/S: 73 / M [address] [place] [address] Bl Unit #: [id number] Loc: [place] [address] Phys: Aki Mtz MD Acct: [id number] Dis Date: Status: ADM IN PHONE #: [phone] Exam Date: 2018 163 FAX #: [phone] Reason: SCROTUM, TESICULAR PAIN/DISCOMFORT EXAMS: CPT CODE: [id number] US SCROTUM AND CNTS 13733 PROCEDURE: SCROTAL ULTRASOUND INDICATION: Right testicular pain [...] Si gned Report (CONTINUED) Name: TORI GREGORY [facility] : 1945 Age/S: 73 / M [address] [facility] Unit #: [id number] Loc: [place] [address] Phys: Aki Mtz MD Acct: [id number] Dis Date: Status: ADM IN PHONE #: [phone] Exam Date: 2018 1636 FAX #: [phone] Reason: SCROTUM, TESICULAR P AIN/DISCOMFORT EXAMS: CPT CODE: [id number] US SCROTUM AND CNTS 82639 <Continued> at 1717 Reported and signed by: Miki Swan M.D. CC: Aki Mtz MD Technologist: Brent Savage RDMS (AB) (OB) Trnscb Date/Time: 2018 (171) tNOEMY Orig Print D/T: S: 2018 (1720) Probe: PAGE 2 Signed Report [id number] 11:54:00* Test Item Value Reference Range Interpretation Comments GLUBED (test code = GLUBED) 237 MG/DL 70-110 H Performed by certified welding machine operator submerged arc at [facility] [id number] 08:32:00* Test Item Value Reference Range Interpretation Comments GLUBED (test code = GLUBED) 134 MG/DL 70-110 H Performed by certified welding machine operator submerged arc at [facility] [id number] 21:02:00* Test Item Value Reference Range Interpretation Comments GLUBED (test code = GLUBED) 181 MG/DL 70-110 H Performed by certified welding machine operator submerged arc at [facility] - MRA NECK [id number] 19:10:00 FAX: Sudhir Watson MD [phone] Kinder: St: ADM FAX: Aki Espitia MD [phone] Name: TORI TRIPLETT [facility] : 1945 Age/S: 72/M [address] [place] [address] Unit #: [id number] Loc: G.3340 [facility] [place] [address] Phys: Sudhir Watson MD Acct: [id number] Dis Date: Status: ADM IN PHONE #: [phone] Exam Date: 11/27/2018 1510 FAX #: [phone] Reason: TIA EXAMS: CPT CODE: [id number] MRA NECK W/CONT 65498 INDICATION: Right arm numbness, transient ischemic attack. [...] in three-dimensional maximum intensity rotational projections. Three-dimensional ibyi-gr-qkcbhi MR angiography centered at the carot id [...] Repo rt (CONTINUED) FAX: Sudhir Watson MD Kinder: St: ADM FAX: Aki Espitia MD [phone] ------ Name: TORI TRIPLETT [facility] : 08/1945 Age/S: 72/M [address] [place] [address] Unit #: [id number] Loc: [address] [address] Phys: Sudhir Watson MD Acct: [id number] Dis Date: Status: ADM IN PHONE #: [phone] Exam Date: 11/27/2018 1510 FAX #: [phone] Reason: TIA EXAMS: CPT CODE: [id number] MRA NECK W/CONT 05252 <Continued> arteries with mild to moderate focal [...] have a normal course caliber and contour. Ilkt-uk-xplcxjkt atheroscl erotic irregularity along the right carotid [...] Signed Report (CONTINUED) FAX: Sudhir Watson MD [phone] Kinder: St: ADM FAX: Aki Espitia MD [phone] Name: ELVIA TRIPLETT [facility] : 1945 Age/S : 72/M [address] [place] [address] Blvd Unit #: [id number] Loc: G. [address] [place] [address] Phys: Sudhir Watson MD Acct: [id number] Dis Date: Status: ADM IN PHONE #: [phone] Exam Date: 11/27/2018 1510 FAX #: [phone] Reason: TIA EXAMS: CPT CODE: [id number] MRA NECK W/CONT 83470 <Continued> 1. Atherosclerotic irregularity with mild to [...] CONTRAST 2018-11-27 19:10:00 FAX: Sudhir Watson MD [phone] Kinder: St: [facility] FAX: Aki Espitia MD [phone] Name: TORI TRIPLETT [facility] : 1945 Age/S: 72/M [address] [place] [address] Unit #: [id number] Loc: [place] [place] [address] Phys: Sudhir Watson MD Acct: [id number] Dis Date: Status: ADM IN PHONE #: [phone] Exam Date: 11/27/2018 1510 FAX #: [phone] Reason: TIA EXAMS: CPT CODE: [id number] MRA HEAD W/O CONTRAST 19774 INDICATION: Right arm numbness, transient ischemic attack. [...] in three-dimensional maximum intensity rotational projections. Three-dimensional adoh-gd-ftpqaz MR angiography centered at the carot id [...] Repo rt (CONTINUED) FAX: Sudhir Watson MD Kinder: St: [facility] FAX: Aki Espitia MD [phone] ------ Name: TORI TRIPLETT [facility] : 08/1945 Age/S: 72/M [address] [place] [address] Blvd Unit #: [id number] Loc: G.[address] [place] [address] Phys: Sudhir Watson MD Acct: [id number] Dis Date: Status: ADM IN PHONE #: [phone] Exam Date: 11/27/2018 1510 FAX #: [phone] Reason: TIA EXAMS: CPT CODE: [id number] MRA HEAD W/O CONTRAST 41207 <Continued> arteries with mild to moderate focal [...] have a normal course caliber and contour. Gqwv-jf-wortydlp atheroscl erotic irregularity along the right carotid [...] ith age-appropriate parenchymal volume loss. MR joseph ogsean brain and neck: PAGE 2 Signed Report (CONTINUED) FAX: Sudhir Watson MD [phone] Kinder: St: ADM FAX: Aki Espitia MD [phone] Name: ELVIA TRIPLETT [facility] : 1945 Age/S : 72/M [address] [place] [address] Blvd Unit #: [id number] Loc: [place] [address] [place] [address] Phys: Sudhir Watson MD Acct: [id number] Dis Date: Status: ADM IN PHONE #: [phone] Exam Date: 11/27/2018 1510 FAX #: [phone] Reason: TIA EXAMS: CPT CODE: [id number] MRA HEAD W/O CONTRAST 28413 <Continued> 1. Atherosclerotic irregularity with mild to [...] W/CONT 2018-11-27 19:10:00 FAX: Sudhir Watson MD [phone] Kinder: St: ADM FAX: Aki Espitia MD [phone] Name: TORI GREGORY [facility] : 1945 Age/S: 72/M [address] [place] [address] Blvd Unit #: [id number] Loc: G.[address] [place] [address] Phys: Sudhir Watson MD Acct: [id number] Dis Date: Status: ADM IN PHONE #: [phone] Exam Date: 11/27/2018 1510 FAX #: [phone] Reason: TIA EXAMS: CPT CODE: [id number] MRA NECK W/CONT 16919 INDICATION: Right arm numbness, transient ischemic attack. [...] in three-dimensional maximum intensity rotational projections. Three-dimensional rqpm-ue-nysqot MR angiography centered at the carot id [...] Repo rt (CONTINUED) FAX: Sudhir Watson MD Kinder: St: ADM FAX: Aki Espitia MD [phone] ------ Name: UZIEL HENDERSONELVIABASIL [facility] : 08/1945 Age/S: 72/M [address] [place] [address] Blvd Unit #: [id number] Loc: [address] [place] [address] Phys: Sudhir Watson MD Acct: [id number] Dis Date: Status: ADM IN PHONE #: [phone] Exam Date: 11/27/2018 1510 FAX #: [phone] Reason: TIA EXAMS: CPT CODE: [id number] MRA NECK W/CONT 73318 <Continued> arteries with mild to moderate focal [...] have a normal course caliber and contour. Zkwm-pg-jbdbtlmn atheroscl erotic irregularity along the right carotid [...] Signed Report (CONTINUED) FAX: Sudhir Watson MD [phone] Kinder: St: [facility] FAX: Aki Espitia MD [phone] Name: TORI MELGAR CHA [facility] : 1945 Age/S : 72/M [address] [place] [address] Unit #: [id number] Loc: [address] [address] Phys: Sudhir Watson MD Acct: [id number] Dis Date: Status: ADM IN PHONE #: [phone] Exam Date: 11/27/2018 1510 FAX #: [phone] Reason: TIA EXAMS: CPT CODE: [id number] MRA NECK W/CONT 78787 <Continued> 1. Atherosclerotic irregularity with mild to [...] Aki Mtz MD Technologist: Jose Henderson, RT(R)(CT)(MR) Trnwird Date/Time/By: 11/27/2018 (1909) : By: [email or web address] Orig Print D/T: S: 11/27/2018 (1912) PAGE 3 Signed Report - MRA HEAD W/O CONTRAST 2018-11-27 19:10:00 FAX: Sudhir Watson MD [phone] Kinder: St: ADM FAX: Aki Espitia MD [phone] Name: TRIPLETT TORI HENDERSON [facility] : 1945 Age/S: 72/M [address] [place] [address] Unit #: [id number] Loc: .[address] [place] [address] Phys: Sudhir Watson MD Acct: [id number] Dis Date: Status: ADM IN PHONE #: [phone] Exam Date: 11/27/2018 1510 FAX #: [phone] Reason: TIA EXAMS: CPT CODE: [id number] MRA HEAD W/O CONTRAST 67571 INDICATION: Right arm numbness, transient ischemic attack. [...] in three-dimensional maximum intensity rotational projections. Three-dimensional faov-sz-tkmlda MR angiography centered at the carot id [...] Repo rt (CONTINUED) FAX: Sudhir Watson MD Kinder: St: [facility] FAX: Aki Espitia MD [phone] ------ Name: TRIPLETT HENDERSON,ELVIABASIL [facility] : 08/1945 Age/S: 72/M [address] [place] [address] Blvd Unit #: [id number] Loc: G.[address] [place] [address] Phys: Sudhir Watson MD Acct: [id number] Dis Date: Status: ADM IN PHONE #: [phone] Exam Date: 11/27/2018 1510 FAX #: [phone] Reason: TIA EXAMS: CPT CODE: [id number] MRA HEAD W/O CONTRAST 23674 <Continued> arteries with mild to moderate focal [...] have a normal course caliber and contour. Kicm-aa-bcoqdeqd atheroscl erotic irregularity along the right carotid [...] Signed Report (CONTINUED) FAX: Sudhir Watson MD [phone] Kinder: St: [facility] FAX: Aki Espitia MD [phone] Name: TORI MELGAR CHA [facility] : 1945 Age/S : 72/M [address] [place] [address] Blvd Unit #: [id number] Loc: [place] [address] [place], [place] [address] Phys: Sudhir Watson MD Acct: [id number] Dis Date: Status: ADM IN PHONE #: [phone] Exam Date: 11/27/2018 1510 FAX #: [phone] Reason: TIA EXAMS: CPT CODE: [id number] MRA HEAD W/O CONTRAST 81236 <Continued> 1. Atherosclerotic irregularity with mild to [...] CONT 2018-11-27 19:10:00 FAX: Aki Espitia MD [phone] Kinder: St: ADM Name: TORI WILSON [facility] : [birth year] Age/S: 72/M [address] [place] [address] Blvd Unit #: [id number] Loc: G.[address] [place] [address] Phys: Aki Mtz MD Acct: [id number] Dis Date: Status: ADM IN PHONE #: [phone] Exam Date: 11/27/2018 1509 FAX #: [phone] Reason: Right arm numbness EXAMS: CPT CODE: [id number] MRI BRAIN WO/W CONT 24063 INDICATION: Right arm numbness, tr ansient ischemic [...] three-dimensional maximum inten sity rotational projections. Three-dimensional vcnl-wt-tfpjny MR angiograp hy centered at the carotid [...] Signed Report (CONTINUED) FAX: Aki Espitia MD [phone] Kinder: St: ADM Name: TORI TRIPLETT [facility] [place] : 1945 Age/S: 72/M [address] [place] [address] Blvd Unit #: [id number] Loc: G.[address] [place] [address] Phys: Aki Mtz MD Acct: [id number] Dis Date: Status: ADM IN PHONE #: [phone] Exam Date: 07/2018 1506 FAX #: [phone] Reason: Right arm numb ness EXAMS: CPT CODE: [id number] MRI BRAIN WO/W CONT 70 553 <Continued> [...] have a normal course caliber and contour. Yzsc-kv-gosblgbk atherosclerotic irregularity along the right carotid bulb [...] Re port (CONTINUED) FAX: Aki Espitia MD Kinder: St: ADM Name: TORI TRIPLETT [facility]ra [facility] : 1945 Age/S: 72/M [address] [place] [address] Blvd Unit #: [id number] Loc: [address] [place] [address] Phys: Aki Mtz MD Acct: [id number] Dis Date: Status: ADM IN PHONE #: [phone] Exam Date: 11/27/2018 1509 FAX #: [phone] Reason: Right arm numbness EXAMS: CPT CODE: [id number] MRI BRAIN WO/W CONT 59762 < Continued> along the bilateral cavernous and [...] 3 Signed Report - MRI BRAIN WO/W [id number] 19:10:00 FAX: Aki Espitia MD [phone] Kinder: St: ADM Name: TORI SOMERS [facility] : [birth year] Age/S: 72/M [address] [place] [address] Blvd Unit #: [id number] Loc: [address] [address] Phys: Aki Mtz MD Acct: [id number] Dis Date: Status: ADM IN PHONE #: [phone] Exam Date: 11/27/2018 1509 FAX #: [phone] Reason: Right arm numbness EXAMS: CPT CODE: [id number] MRI BRAIN WO/W CONT 32469 INDICATION: Right arm numbness, tr ansient ischemic [...] three-dimensional maximum inten sity rotational projections. Three-dimensional edpq-dp-ulsoli MR angiograp hy centered at the carotid [...] Signed Report (CONTINUED) FAX: Aki Espitia MD [phone] Kinder: St: ADM Name: TORI GREGORY [facility] : 1945 Age/S: 72/M [address] [place] [address] Blvd Unit #: [id number] Loc: [address] [place] [address] Phys: Aki Mtz MD Acct: [id number] Dis Date: Status: ADM IN PHONE #: [phone] Exam Date: 07/2018 1509 FAX #: [phone] Reason: Right arm numb ness EXAMS: CPT CODE: [id number] MRI BRAIN WO/W CONT 70 553 <Continued> [...] have a normal course caliber and contour. Shzo-ds-liuapbru atherosclerotic irregularity along the right carotid bulb [...] Re port (CONTINUED) FAX: Aki Espitia MD Kinder: St: ADM Name: TORI GREGORY [facility] [place] : 1945 Age/S: 72/M [address] [place], [place] [address]vd Unit #: [id number] Loc: [address] [address] Phys: Aki Mtz MD Acct: [id number] Dis Date: Status: ADM IN PHONE #: [phone] Exam Date: 11/27/2018 1506 FAX #: [phone] Reason: Right arm numbness EXAMS: CPT CODE: [id number] MRI BRAIN WO/W CONT 39909 < Continued> along the bilateral cavernous and [...] distal internal carotid artery (NASCET criteria). SL: APATIL-H at 1910 Reported and signed by: Cynthia Hall M.D. CC: Aki Mtz MD Technologist: Jose Henderson RT(R)(CT)(MR) Trnscrd Date/Time/By: 11/27/2018 (1909) : By: [email or web address] Orig Print D/T: S: 11/27/2018 (1912) PAGE 3 Signed Report [id number] 17:14:00* Test Item Value Reference Range Interpretation Comments GLUBED (test code = GLUBED) 105 MG/DL 70-110 N Performed by certified welding machine operator submerged arc at [facility] [id number] 11:52:00* Test Item Value Reference Range Interpretation Comments GLUBED (test code = GLUBED) 140 MG/DL 70-110 H Performed by certified welding machine operator submerged arc at [facility] B-TYPE NATRIURETIC [id number] 09:28:00* Test Item Value Reference Range Interpretation Comments B-TYPE NATRIURETIC PEPTIDE (test code = BNP) 827.3 PG/ML 0-100 H [id number] 09:22:00* Test Item Value Reference Range Interpretation Comments MAGNESIUM (test code = MAG) 1.90 mg/dL 1.8-2.4 N THYROID STIMULATING [id number] 09:22:00* Test Item Value Reference Range Interpretation Comments THYROID STIMULATING HORMONE (test code = TSH) 1.16 0.42-5.4 7 N Results in yogesh- International Units/mL HGBA1C%2018-11-27 08:10:00* Test Item Value Reference Range Interpretation Comments HGBA1C% (test code = HGBA1C%) 7.8 %A1C 4.8-6.0 H [id number] 08:04:00* Test Item Value Reference Range Interpretation Comments GLUBED (test code = GLUBED) 127 MG/DL 70-110 H Performed by certified welding machine operator submerged arc at [facility] CBC W/AUTO [id number] 07:13:00* Test Item Value Reference Range Interpretation [...] DIFF REQUIRED (test code = MDIFF) NO [id number] 20:51:00* Test Item Value Reference Range Interpretation Comments GLUBED (test code = GLUBED) 215 MG/DL 70-110 H Performed by certified welding machine operator submerged arc at [facility] [id number] 12:29:00* Test Item Value Reference Range Interpretation Comments GLUBED (test code = GLUBED) 140 MG/DL 70-110 H Performed by certified welding machine operator submerged arc at [facility] [id number] 06:57:00* Test Item Value Reference Range Interpretation [...] = LDL) 61 mg/dL 0-100 N <100 VMQLLUZ764-283 NEAR OPTIMAL/ABOVE [id number] AUIPXEJFCB894-408 HIGH>UL=684 VERY HIGH*Guidelines provided by the National Cholesterol EducationProgram Adult Treatment Panel III [id number] 03:55:00* Test Item Value Reference Range Interpretation [...] troponin done in ED)- CT ABD PELVIS W/[id number] 03:04:00 Name: TORI TRIPLETT [facility] : 1945 Age/S: 72 / M [address] [place] [address] Unit #: [id number] Loc: [place] [address] Phys: Av Danielle MD Acct: [id number] Dis Date: Status: ADM IN PHONE #: [phone] Exam Date: 11/26/2018 0236 FAX #: [phone] Reason: nausea/vomiting, +UA, elevated WBC count EXAMS: CPT CODE: [id number] CT ABD PELVIS W/CONT 98494 PROCEDURE: CT abdomen and pelvis with contrast [...] Signed Rep ort (CONTINUED) Name: TORI TRIPLETT [facility] : 1945 Age/S: 72 / M [address] Unit #: [id number] Loc: [place], [place] [address] Phys: Av Danielle MD Acct: [id number] Dis Date: Status: ADM IN PHONE #: [phone] Exam Date: 11/26/2018235 FAX #: [phone] Reason: nausea/vomiting, +UA, elevated WBC count EXAMS: CPT CODE: [id number] CT ABD PELVIS W/CONT 39945 <Continued> ADDITIONAL FINDINGS: None. IMPRESSION: 1. Prostatic [...] 2 Signed Report - CT ABD PELVIS [id number] 03:04:00 Name: TORI GREGORY [facility] : 1945 Age/S: 72 / M [address] [place] [address] Blvd Unit #: [id number] Loc: [place] [address] Phys: Av Danielle MD Acct: [id number] Dis Date: Status: ADM IN PHONE #: [phone] Exam Date: 11/26/2018 023 FAX #: [phone] Reason: nausea/vomiting, +UA, elevated WBC count EXAMS: CPT CODE: [id number] CT ABD PELVIS W/CONT 97290 PROCEDURE: CT abdomen and pelvis with contrast [...] Signed Rep ort (CONTINUED) Name: TORI GREGORY [facility] : 1945 Age/S: 72 / M [address] Unit #: [id number] Loc: [place], [place] [address] Phys: Av Danielle MD Acct: [id number] Dis Date: Status: ADM IN PHONE #: [phone] Exam Date: 11/26/2018 0236 FAX #: [phone] Reason: nausea/vomiting, +UA, elevated WBC count EXAMS: CPT CODE: [id number] CT ABD PELVIS W/CONT 09622 <Continued> ADDITIONAL FINDINGS: None. IMPRESSION: 1. Prostatic [...] Bhavya(R) CTDI: DLP: Trnscb Date/Time: 11/26/2018 (303) [email or web address] Orig Print D/T: S: 11/26/2018 (030) CTDI: DLP: PAGE 2 Signed Report PROTHROMBIN [id number] 01:27:00* Test Item Value Reference Range Interpretation [...] Infarction (to prevent recurrent infarct). THROMBOPLASTIN TIME [id number] 01:27:00* Test Item Value Reference Range Interpretation Comments THROMBOPLASTIN TIME PARTIAL (test code = PTT) 29.8 Seconds 25.0-39. 5 N Therapeutic Range: 50.4 - 88.3 Seconds Effective 11/12/2018 BASIC METABOLIC [id number] 01:14:00* Test Item Value Reference Range Interpretation [...] CA) 8.9 mg/dL 8.0-10.5 N HEPATIC FUNCTION [id number] 01:14:00* Test Item Value Reference Range Interpretation [...] code = ALKP) 68 IUnit/L 20-125 N [id number] 01:14:00* Test Item Value Reference Range Interpretation Comments LIPASE (test code = LIP) 135 IUnit/L 73-393 N [id number] 01:14:00* Test Item Value Reference Range Interpretation Comments TROPONIN-I (test code = TROPI) 0.043 ng/mL 0.000-0.045 N Negative: <= 0.045 Positive: >= 0.046 Correlation with serial results, other cardiac markers andclinical findings is necessary to determine the clinicalsignificance of this result. Results using different methodologies should not be comparedto one another as quantitative results may vary by method. URINALYSIS [id number] 01:11:00* Test Item Value Reference Range Interpretation [...] SQU) 0-5 /HPF NONE SEEN CBC W/O [id number] 01:01:00* Test Item Value Reference Range Interpretation [...] fL 7.0-9.0 H - XR CHEST 1 [id number] 00:37:00 FAX: Av Danielle MD [phone] Kinder: St: REG Name: TORI WILSON [facility] : 11/28/[birth year] Age/S: 72/M [address] [place] [address] Blvd Unit #: [id number] Loc: [address] [place] [address] Phys: Av Danielle MD Acct: [id number] Dis Date: Status: REG ER PHONE #: [phone] Exam Date: 11/26/2018 0022 FAX #: [phone] Reason: stroke EXAMS: CPT CODE: [id number] XR CHEST 1 V 92401 Chest, single view dated 11/26/2018. HISTORY: Stroke. [...] M.D. CC: Av Danielle MD Technologist: Claudio Zelaya RT(R) Trnscrd Date/Time/By: 11/26/2018 (0037) : By: LatoyaM Orig Print D/T: S: 11/26/2018 (0040) PAGE 1 Signed Report - XR CHEST 1 [id number] 00:37:00 FAX: Av Danielle MD [phone] Kinder: St: ADM Name: Arsh PIERRESKIP MIAELVIABASIL [facility] : 11/28/[birth year] Age/S: 72/M [address] [place] [address] Blvd Unit #: [id number] Loc: G.[address] [place] [address] Phys: Av Danielle MD Acct: [id number] Dis Date: Status: ADM IN PHONE #: [phone] Exam Date: 11/26/2018 002 FAX #: [phone] Reason: stroke EXAMS: CPT CODE: [id number] XR CHEST 1 V 90525 Chest, single view dated 11/26/2018. HISTORY: Stroke. [...] M.D. CC: Av Danielle MD Technologist: Claudio Zelaya RT(R) Trnscrd Date/Time/By: 11/26/2018 (003) : By: [email or web address] Orig Print D/T: S: 11/26/2018 (004) PAGE 1 Signed Report - CT HEAD/BRAIN W/O [id number] 00:34:00 Name: TORI TRIPLETT [facility] : 1945 Age/S: 72 / M [address] [place] [address] Unit #: [id number] Loc: [place] [address] Phys: Destin Danielle MD Acct: [id number] Di s Date: Status: REG ER PHONE #: Exam Date: 11/26/2018 0010 FAX #: [phone] Reason: nausea/vomiting, dizziness EXAMS: CPT CODE: [id number] CT HEAD/BRAIN W/O CONT 77166 CT head without contrast . CLINICAL HISTORY: [...] Angelic(R) CTDI: DLP: Trnscb Date/Time: 11/26/2018 (0034) [email or web address] Orig Print D/T: S: 11/26/2018 (0038) CTDI: DLP: PAGE 1 Signed Report - CT HEAD/BRAIN W/O [id number] 00:34:00 Name: TORI GREGORY [facility] : 1945 Age/S: 72 / M [address] [place] [address] Unit #: [id number] Loc: [place] [address] Phys: Av Danielle MD Acct: [id number] Dis Date: Status: ADM IN PHONE #: [phone] Exam Date: 11/26/2018 001 FAX #: [phone] Reason: nausea/vomiting, dizziness EXAMS: CPT CODE: [id number] CT HEAD/BRAIN W/O CONT 39672 CT head without contrast . CLINICAL HISTORY: [...] Angelic(R) CTDI: DLP: Trnscb Date/Time: 11/26/2018 (0034) [email or web address] Orig Print D/T: S: 11/26/2018 (0038) CTDI: DLP: PAGE 1 Signed Report [id number] 20:59:00* Test Item Value Reference Range Interpretation Comments GLUBED (test code = GLUBED) 89 MG/DL 70-110 N Performed by certified welding machine operator submerged arc at [facility] [id number] 08:03:00* Test Item Value Reference Range Interpretation Comments MAGNESIUM (test code = MAG) 2.40 mg/dL 1.8-2.4 N [id number] 06:23:00* Test Item Value Reference Range Interpretation Comments GLUBED (test code = GLUBED) 128 MG/DL 70-110 H Performed by certified welding machine operator submerged arc at [facility] [id number] 21:04:00* Test Item Value Reference Range Interpretation Comments GLUBED (test code = GLUBED) 137 MG/DL 70-110 H Performed by certified welding machine operator submerged arc [facility] [facility] [id number] 16:29:00* Test Item Value Reference Range Interpretation Comments GLUBED (test code = GLUBED) 113 MG/DL 70-110 H Performed by certified welding machine operator submerged arc at [facility] [id number] 11:05:00* Test Item Value Reference Range Interpretation Comments GLUBED (test code = GLUBED) 162 MG/DL 70-110 H Performed by certified welding machine operator submerged arc at [facility] [id number] 06:16:00* Test Item Value Reference Range Interpretation Comments GLUBED (test code = GLUBED) 67 MG/DL 70-110 L Performed by certified welding machine operator submerged arc at [facility] [id number] 20:55:00* Test Item Value Reference Range Interpretation Comments GLUBED (test code = GLUBED) 164 MG/DL 70-110 H Performed by certified welding machine operator submerged arc at [facility] [id number] 16:19:00* Test Item Value Reference Range Interpretation Comments GLUBED (test code = GLUBED) 79 MG/DL 70-110 N Performed by certified welding machine operator submerged arc at [facility] [id number] 11:39:00* Test Item Value Reference Range Interpretation Comments GLUBED (test code = GLUBED) 116 MG/DL 70-110 H Performed by certified welding machine operator submerged arc at [facility] COMPREHENSIVE METABOLIC [id number] 08:10:00* Test Item Value Reference Range Interpretation [...] ALKP) 85 IUnit/L 20-125 N CBC W/AUTO [id number] 07:59:00* Test Item Value Reference Range Interpretation [...] DIFF REQUIRED (test code = MDIFF) NO [id number] 05:58:00* Test Item Value Reference Range Interpretation Comments GLUBED (test code = GLUBED) 71 MG/DL 70-110 N Performed by certified welding machine operator submerged arc at [facility] [id number] 19:17:00* Test Item Value Reference Range Interpretation Comments GLUBED (test code = GLUBED) 150 MG/DL 70-110 H Performed by certified welding machine operator submerged arc at [facility] [id number] 16:47:00* Test Item Value Reference Range Interpretation Comments GLUBED (test code = GLUBED) 202 MG/DL 70-110 H Performed by certified welding machine operator submerged arc at [facility] [id number] 16:47:00* Test Item Value Reference Range Interpretation Comments GLUBED (test code = GLUBED) 88 MG/DL 70-110 N Performed by certified welding machine operator submerged arc at [facility] [id number] 08:36:00* Test Item Value Reference Range Interpretation Comments GLUBED (test code = GLUBED) 103 MG/DL 70-110 N Performed by certified welding machine operator submerged arc at [facility]2019-02-10 06:48:00* Test Item Value Reference Range Interpretation Comments GLUBED (test code = GLUBED) 60 MG/DL 70-110 L Performed by certified welding machine operator submerged arc at [facility] [id number] 19:57:00* Test Item Value Reference Range Interpretation Comments GLUBED (test code = GLUBED) 267 MG/DL 70-110 H Performed by certified welding machine operator submerged arc at [facility] [id number] 19:57:00* Test Item Value Reference Range Interpretation Comments GLUBED (test code = GLUBED) 95 MG/DL 70-110 N Performed by certified welding machine operator submerged arc at [facility] [id number] 19:57:00* Test Item Value Reference Range Interpretation Comments GLUBED (test code = GLUBED) 107 MG/DL 70-110 N Performed by certified welding machine operator submerged arc at [facility] [id number] 07:20:00* Test Item Value Reference Range Interpretation Comments GLUBED (test code = GLUBED) 75 MG/DL 70-110 N Performed by certified welding machine operator submerged arc at [facility] [id number] 20:40:00* Test Item Value Reference Range Interpretation Comments GLUBED (test code = GLUBED) 101 MG/DL 70-110 N Performed by certified welding machine operator submerged arc at [facility] [id number] 17:32:00* Test Item Value Reference Range Interpretation Comments GLUBED (test code = GLUBED) 103 MG/DL 70-110 N Performed by certified welding machine operator submerged arc at [facility] [id number] 11:35:00* Test Item Value Reference Range Interpretation Comments GLUBED (test code = GLUBED) 83 MG/DL 70-110 N Performed by certified welding machine operator submerged arc at [facility] [id number] 06:46:00* Test Item Value Reference Range Interpretation Comments GLUBED (test code = GLUBED) 71 MG/DL 70-110 N Performed by certified welding machine operator submerged arc at [facility] [id number] 20:44:00* Test Item Value Reference Range Interpretation Comments GLUBED (test code = GLUBED) 88 MG/DL 70-110 N Performed by certified welding machine operator submerged arc at [facility]2019-02-07 16:11:00* Test Item Value Reference Range Interpretation Comments GLUBED (test code = GLUBED) 154 MG/DL 70-110 H Performed by certified welding machine operator submerged arc at [facility] [id number] 11:36:00* Test Item Value Reference Range Interpretation Comments GLUBED (test code = GLUBED) 82 MG/DL 70-110 N Performed by certified welding machine operator submerged arc at [facility] [id number] 05:52:00* Test Item Value Reference Range Interpretation Comments GLUBED (test code = GLUBED) 98 MG/DL 70-110 N Performed by certified welding machine operator submerged arc at [facility] [id number] 20:10:00* Test Item Value Reference Range Interpretation Comments GLUBED (test code = GLUBED) 125 MG/DL 70-110 H Performed by certified welding machine operator submerged arc at [facility] [id number] 16:49:00* Test Item Value Reference Range Interpretation Comments GLUBED (test code = GLUBED) 190 MG/DL 70-110 H Performed by certified welding machine operator submerged arc at [facility] - XR CHEST 2 [id number] 11:57:00 FAX: Claudio Messer [phone] Kinder: TYRESE St: ADM Name: TORI SOMERS [facility] : 11/28/[birth year] Age/S: 72/M [address] [place] [address] Unit #: [id number] Loc: [place] [address] Phys: Claudio Mendoza MD Acct: [id number] Dis Date: Status: ADM IN PHONE #: [phone] Exam Date: 09/04/2018 1126 FAX #: [phone] Reason: FOLLOW PLEURAL EFFUSION (REASSESS) EXAMS: CPT CODE: [id number] XR CHEST 2 V 26279 Clinical Indication: Follow-up on pleural effusion; Comparison: [...] foci or infiltrates. 2. Stable cardiomegaly. SL: [id number] E lectronically Signed by Marcos Fatima on 09/04/2018 at 1157 Reported and signed by: Rj Fatima D.O. CC: Claudio Mendoza MD Technologist: RT Glenys(R) Trnscrd Date/Time/By: 09/04/2018 (4787) : By: [email or web address] Orig Print D/T: S: 09/04/2018 (1200) PAGE 1 Signed Report [id number] 11:20:00* Test Item Value Reference Range Interpretation Comments GLUBED (test code = GLUBED) 133 MG/DL 70-110 H Performed by certified welding machine operator submerged arc at [facility] [id number] 06:15:00* Test Item Value Reference Range Interpretation Comments GLUBED (test code = GLUBED) 117 MG/DL 70-110 H Performed by certified welding machine operator submerged arc at [facility] [id number] 19:53:00* Test Item Value Reference Range Interpretation Comments GLUBED (test code = GLUBED) 150 MG/DL 70-110 H Performed by certified welding machine operator submerged arc at [facility] [id number] 15:58:00* Test Item Value Reference Range Interpretation Comments GLUBED (test code = GLUBED) 151 MG/DL 70-110 H Performed by certified welding machine operator submerged arc at [facility] VITAMIN D 1,62-SJMZNOLOS6856-18-05 11:20:00* Test Item Value Reference Range Interpretation Comments VITAMIN D 1,25-DIHYDROXY (test code = FAFV493) 14.2 pg/mL 19.9-79 .3 A Performed At: [address] [id number] Sanjai MD Ph:[phone] [id number] 10:57:00* Test Item Value Reference Range Interpretation Comments GLUBED (test code = GLUBED) 178 MG/DL 70-110 H Performed by certified welding machine operator submerged arc at [facility] [id number] 10:57:00* Test Item Value Reference Range Interpretation Comments GLUBED (test code = GLUBED) 118 MG/DL 70-110 H Performed by certified welding machine operator submerged arc at [facility] [id number] 19:57:00* Test Item Value Reference Range Interpretation Comments GLUBED (test code = GLUBED) 182 MG/DL 70-110 H Performed by certified welding machine operator submerged arc at [facility] [id number] 17:25:00* Test Item Value Reference Range Interpretation Comments GLUBED (test code = GLUBED) 171 MG/DL 70-110 H Performed by certified welding machine operator submerged arc at [facility] [id number] 11:32:00* Test Item Value Reference Range Interpretation Comments GLUBED (test code = GLUBED) 209 MG/DL 70-110 H Performed by certified welding machine operator submerged arc at [facility] [id number] 06:36:00* Test Item Value Reference Range Interpretation Comments GLUBED (test code = GLUBED) 111 MG/DL 70-110 H Performed by certified welding machine operator submerged arc at [facility] [id number] 20:17:00* Test Item Value Reference Range Interpretation Comments GLUBED (test code = GLUBED) 242 MG/DL 70-110 H Performed by certified welding machine operator submerged arc at [facility] [id number] 16:46:00* Test Item Value Reference Range Interpretation Comments GLUBED (test code = GLUBED) 281 MG/DL 70-110 H Performed by certified welding machine operator submerged arc at [facility] [id number] 11:23:00* Test Item Value Reference Range Interpretation Comments GLUBED (test code = GLUBED) 207 MG/DL 70-110 H Performed by certified welding machine operator submerged arc at [facility] [id number] 07:14:00* Test Item Value Reference Range Interpretation Comments GLUBED (test code = GLUBED) 160 MG/DL 70-110 H Performed by certified welding machine operator submerged arc at [facility] [id number] 05:58:00* Test Item Value Reference Range Interpretation Comments GLUBED (test code = GLUBED) 162 MG/DL 70-110 H Performed by certified welding machine operator submerged arc at [facility] [id number] 21:19:00* Test Item Value Reference Range Interpretation Comments GLUBED (test code = GLUBED) 197 MG/DL 70-110 H Performed by certified welding machine operator submerged arc at [facility] BASIC METABOLIC [id number] 17:01:00* Test Item Value Reference Range Interpretation [...] CA) 8.8 mg/dL 8.0-10.5 N COMPREHENSIVE METABOLIC [id number] 17:01:00* Test Item Value Reference Range Interpretation [...] ALKP) 78 IUnit/L 20-125 N BASIC METABOLIC [id number] 16:59:00* Test Item Value Reference Range Interpretation [...] CA) 8.8 mg/dL 8.0-10.5 N COMPREHENSIVE METABOLIC [id number] 16:59:00* Test Item Value Reference Range Interpretation Comments TOTAL PROTEIN (test code = PROT) g/dL 6.4-8.2 ALBUMIN (test code = ALB) 2.50 g/dL 3.4-5.0 L BILIRUBIN TOTAL (test code = BILT) mg/dL 0.0-1.0 SGOT/AST (test code = AST) 17 IUnit/L 15-37 N SGPT/ALT (test code = ALT) 54 IUnit/L 15-65 N ALKALINE PHOSPHATASE TOTAL (test code = ALKP) IUnit/L 20-125 [id number] 16:38:00* Test Item Value Reference Range Interpretation Comments GLUBED (test code = GLUBED) 236 MG/DL 70-110 H Performed by certified welding machine operator submerged arc at [facility] [id number] 12:24:00* Test Item Value Reference Range Interpretation Comments GLUBED (test code = GLUBED) 207 MG/DL 70-110 H Performed by certified welding machine operator submerged arc at [facility] [id number] 06:23:00* Test Item Value Reference Range Interpretation Comments GLUBED (test code = GLUBED) 176 MG/DL 70-110 H Performed by certified welding machine operator submerged arc at [facility] [id number] 21:12:00* Test Item Value Reference Range Interpretation Comments GLUBED (test code = GLUBED) 235 MG/DL 70-110 H Performed by certified welding machine operator submerged arc at [facility] [id number] 16:46:00* Test Item Value Reference Range Interpretation Comments GLUBED (test code = GLUBED) 312 MG/DL 70-110 H Performed by certified welding machine operator submerged arc at [facility] [id number] 12:28:00* Test Item Value Reference Range Interpretation Comments GLUBED (test code = GLUBED) 230 MG/DL 70-110 H Performed by certified welding machine operator submerged arc at [facility] VITAMIN [id number] 09:27:00* Test Item Value Reference Range Interpretation Comments VITAMIN B12 (test code = VITB12) 4724 pg/mL 193-986 H FOLIC [id number] 09:27:00* Test Item Value Reference Range Interpretation Comments FOLIC ACID (test code = FOL) 14.9 ng/mL 3.1-17.5 N THYROID STIMULATING [id number] 09:27:00* Test Item Value Reference Range Interpretation Comments THYROID STIMULATING HORMONE (test code = TSH) 1.34 0.42-5.4 7 N Results in yogesh- International Units/mL [id number] 07:17:00* Test Item Value Reference Range Interpretation Comments GLUBED (test code = GLUBED) 193 MG/DL 70-110 H Performed by certified welding machine operator submerged arc at [facility] [id number] 21:21:00* Test Item Value Reference Range Interpretation Comments GLUBED (test code = GLUBED) 285 MG/DL 70-110 H Performed by certified welding machine operator submerged arc at [facility] [id number] 16:42:00* Test Item Value Reference Range Interpretation Comments GLUBED (test code = GLUBED) 285 MG/DL 70-110 H Performed by certified welding machine operator submerged arc at [facility] [id number] 15:10:00* Test Item Value Reference Range Interpretation Comments SGOT/AST (test code = AST) 23 IUnit/L 15-37 N COMMENTS: blood in labSGPT/[id number] 15:10:00* Test Item Value Reference Range Interpretation Comments SGPT/ALT (test code = ALT) 91 IUnit/L 15-65 H COMMENTS: blood in lab- XR CHEST 1 [id number] 12:48:00 FAX: Shalom Lisa I [phone] Kinder: St: ADM FAX: Candie Reinoso (Beba Name: TORI GREGORY [facility] : 1945 Age/S: 72/M [address] [place] [address] Unit #: [id number] Loc: G.3362 [facility] [address] Phys: Candie Reinoso (Beckie) CUSTOMER SALES SPECIALIST Acct: [id number] Dis Date: Status: ADM IN PHONE #: [phone] Exam Date: 08/29/2018 1125 FAX #: [phone] Reason: f/u pleural effusion. s/p cabg EXAMS: CPT CODE: [id number] XR CHEST 1 V 32661 CHEST 1 VIEW: 08/29/2018 COMPARISON: August 26, [...] Technologist: Rae Solorzano, RT(R); Grecia Baird, RT(R) Trnscrd Date/Time/By: 08/29/2018 (8830) : By: [email or web address] Orig Print D/T: S: 08/29/2018 (2156) PAGE 1 Signed Report [id number] 12:00:00* Test Item Value Reference Range Interpretation Comments GLUBED (test code = GLUBED) 304 MG/DL 70-110 H Performed by certified welding machine operator submerged arc at [facility] [id number] 08:34:00* Test Item Value Reference Range Interpretation Comments GLUBED (test code = GLUBED) 206 MG/DL 70-110 H Performed by certified welding machine operator submerged arc at [facility] BASIC METABOLIC [id number] 04:21:00* Test Item Value Reference Range Interpretation [...] code = CA) 9.2 mg/dL 8.0-10.5 N [id number] 04:21:00* Test Item Value Reference Range Interpretation Comments MAGNESIUM (test code = MAG) 2.10 mg/dL 1.8-2.4 N CBC W/AUTO [id number] 04:09:00* Test Item Value Reference Range Interpretation [...] DIFF REQUIRED (test code = MDIFF) NO [id number] 21:41:00* Test Item Value Reference Range Interpretation Comments GLUBED (test code = GLUBED) 230 MG/DL 70-110 H Performed by certified welding machine operator submerged arc at [facility] [id number] 16:36:00* Test Item Value Reference Range Interpretation Comments GLUBED (test code = GLUBED) 315 MG/DL 70-110 H Performed by certified welding machine operator submerged arc at [facility] [id number] 11:10:00* Test Item Value Reference Range Interpretation Comments GLUBED (test code = GLUBED) 287 MG/DL 70-110 H Performed by certified welding machine operator submerged arc at [facility] [id number] 08:15:00* Test Item Value Reference Range Interpretation Comments GLUBED (test code = GLUBED) 170 MG/DL 70-110 H Performed by certified welding machine operator submerged arc at [facility] BASIC METABOLIC [id number] 04:34:00* Test Item Value Reference Range Interpretation [...] code = CA) 9.0 mg/dL 8.0-10.5 N [id number] 20:25:00* Test Item Value Reference Range Interpretation Comments GLUBED (test code = GLUBED) 289 MG/DL 70-110 H Performed by certified welding machine operator submerged arc at [facility] [id number] 17:04:00* Test Item Value Reference Range Interpretation Comments GLUBED (test code = GLUBED) 246 MG/DL 70-110 H Performed by certified welding machine operator submerged arc at [facility] - CT CHEST W/O [id number] 14:11:00 Name: TORI GREGORY [facility] : 1945 Age/S: 72 / M [address] [place] [address] Blvd Unit #: [id number] Loc: [place] [address] Phys: Candie Reinoso) CUSTOMER SALES SPECIALIST Acct: [id number] Dis Date: Status: ADM IN PHONE #: [phone] Exam Date: 08/27/2018 1320 FAX #: [phone] Reason: F/U PLEURAL EFFUSION. EVALUATE FOR POSS THORACO EXAMS: CPT CODE: [id number] CT CHEST W/O CONTRAST 58067 EXAM: CT CHEST WITHOUT CONTRAST DATE: 08/27/2018 [...] 1 Signed Report (CONTINUED) Name: TORI GREGORY [facility] : 1945 Age/S: 72 / M [address] [place] [address] Bl Unit #: [id number] Loc: [place] [address] Phys: Maribel Reinoso rober Yasmeen (Beckie) CUSTOMER SALES SPECIALIST Acct: [id number] Di s Date: Status: ADM IN PHONE #: Exam Date: 08/27/2018 1320 FAX #: [phone] Reason: F/U PLEURAL EFFUSION. EVALUATE FOR POSS THORACO EXAMS: CPT CODE: [id number] CT CHEST W/O CONTRAST 02435 <Continued> IMPRESSION: 1. Persistent moderate atelectatic changes in the left lower lobe. Improved aeration of the right lung base compared to prior examination. Unchanged mild to moderate left pleural effusion. Interval decrease in small right pleural effusion. Superimposed bilateral lower lobes infectious process cannot be excluded. 2. Postsurgical changes with some fluid within the anterior mediastinum. SL: [id number] at 1411 Reported and signed by: Rachel Glaser D.O. CC: Shalom Guillermo MD; Candiepablo Reinoso NP (Christy) Technologist:Marito Gordon, RT(R)(CT) CTDI: DLP: Trnscb Da te/Time: 08/27/2018 (1411) t.SDR.[id number] Orig Print D/T: S: 0 08/27/2018 (1415) CTDI: DLP: PAGE 2 Signed Report [id number] 12:43:00* Test Item Value Reference Range Interpretation Comments GLUBED (test code = GLUBED) 310 MG/DL 70-110 H Performed by certified welding machine operator submerged arc at [facility] [id number] 09:02:00* Test Item Value Reference Range Interpretation Comments GLUBED (test code = GLUBED) 172 MG/DL 70-110 H Performed by certified welding machine operator submerged arc at [facility] FLUID [id number] 04:17:00* Test Item Value Reference Range Interpretation [...] DIAGNOSIS :NEW ONSET CONGESTIVE HEART FAILUREPLEURAL FLUIDFLUID [id number] 04:17:00* Test Item Value Reference Range Interpretation [...] DIAGNOSIS :NEW ONSET CONGESTIVE HEART FAILUREPLEURAL FLUIDFLUID [id number] 04:17:00* Test Item Value Reference Range Interpretation [...] CA) 8.6 mg/dL 8.0-10.5 N HEPATIC FUNCTION [id number] 04:03:00* Test Item Value Reference Range Interpretation [...] ALKP) 75 IUnit/L 20-125 N CBC W/AUTO [id number] 03:49:00* Test Item Value Reference Range Interpretation [...] DIFF REQUIRED (test code = MDIFF) NO [id number] 21:52:00* Test Item Value Reference Range Interpretation Comments GLUBED (test code = GLUBED) 387 MG/DL 70-110 H Performed by certified welding machine operator submerged arc at [facility] [id number] 17:00:00* Test Item Value Reference Range Interpretation Comments GLUBED (test code = GLUBED) 250 MG/DL 70-110 H Performed by certified welding machine operator submerged arc at [facility] - XR CHEST 1 [id number] 15:29:00 FAX: Shalom Lisa I [phone] Kinder: St: ADM FAX: Bandar Storm [phone] Name: TRIPLETT MIAELVIABASIL [facility] : 1945 Age/S: 72/M [address] [place] [address] Unit #: [id number] Loc: G.[address] [place] [address] Phys: Bandar Rausch MD Acct: [id number] Dis Date: Status: ADM IN PHONE #: [phone] Exam Date: 08/26/2018 1524 FAX #: [phone] Reason: Post tap on right EXAMS: CPT CODE: [id number] XR CHEST 1 V 66130 CHEST, SINGLE VIEW HISTORY: Right pleural effusion, [...] Rausch MD Technologist: Jolie Grier, RT(R), RTT Trnscrd Date/Time/By: 08/26/2018 (2536) : By: Shilpi Orig Print D/T: S: 08/26/2018 (2067) PAGE 1 Signed Report [id number] 11:31:00* Test Item Value Reference Range Interpretation Comments GLUBED (test code = GLUBED) 316 MG/DL 70-110 H Performed by certified welding machine operator submerged arc at [facility] [id number] 08:11:00* Test Item Value Reference Range Interpretation Comments GLUBED (test code = GLUBED) 176 MG/DL 70-110 H Performed by certified welding machine operator submerged arc at [facility] BASIC METABOLIC [id number] 04:40:00* Test Item Value Reference Range Interpretation [...] CA) 8.7 mg/dL 8.0-10.5 N HEPATIC FUNCTION [id number] 04:40:00* Test Item Value Reference Range Interpretation [...] ALKP) 78 IUnit/L 20-125 N CBC W/AUTO [id number] 04:22:00* Test Item Value Reference Range Interpretation [...] DIFF REQUIRED (test code = MDIFF) NO [id number] 20:17:00* Test Item Value Reference Range Interpretation Comments GLUBED (test code = GLUBED) 201 MG/DL 70-110 H Performed by certified welding machine operator submerged arc at [facility] [id number] 17:11:00* Test Item Value Reference Range Interpretation Comments GLUBED (test code = GLUBED) 329 MG/DL 70-110 H Performed by certified welding machine operator submerged arc at [facility] [id number] 11:54:00* Test Item Value Reference Range Interpretation Comments GLUBED (test code = GLUBED) 199 MG/DL 70-110 H Performed by certified welding machine operator submerged arc at [facility] [id number] 07:56:00* Test Item Value Reference Range Interpretation Comments GLUBED (test code = GLUBED) 169 MG/DL 70-110 H Performed by certified welding machine operator submerged arc at [facility] BASIC METABOLIC [id number] 04:30:00* Test Item Value Reference Range Interpretation [...] CA) 8.2 mg/dL 8.0-10.5 N HEPATIC FUNCTION [id number] 04:30:00* Test Item Value Reference Range Interpretation [...] ALKP) 82 IUnit/L 20-125 N CBC W/AUTO [id number] 04:05:00* Test Item Value Reference Range Interpretation [...] DIFF REQUIRED (test code = MDIFF) NO [id number] 20:42:00* Test Item Value Reference Range Interpretation Comments GLUBED (test code = GLUBED) 225 MG/DL 70-110 H Performed by certified welding machine operator submerged arc at [facility] [id number] 16:57:00* Test Item Value Reference Range Interpretation Comments GLUBED (test code = GLUBED) 247 MG/DL 70-110 H Performed by certified welding machine operator submerged arc at [facility] ANTINUCLEAR ANTIBODIES [id number] 16:08:00* Test Item Value Reference Range Interpretation Comments COLE SCREEN (test code = ANASCR) Positive () A Negative <1:80 Borderline 1:80 Positive >1:80 ACUTE HEPATITIS [id number] 16:08:00* Test Item Value Reference Range Interpretation Comments AB HEPATITIS A IGM (test code = HAVMAB) NON REACTIVE INDEX NON REAC T. AG HEPATITIS B SURFACE (test code = HBSAG) NON REACTIVE INDEX NonRe active AB HEPATITIS B CORE IGM (test code = HBCMAB) NON REACTIVE INDEX NON REACT. AB HEPATITIS C (test code = HCVAB) NON REACTIVE INDEX NON REACT. ANTINUCLEAR ANTIBODIES [id number] 16:08:00* Test Item Value Reference Range Interpretation [...] titers Nucleosomes, Histones Drug-induced SLE Speckled Sm, [employer], SCL-70, SLE,MCTD,PSS (diffuse form), SS-A/SS-B Sjogrens Nucleolar SCL-70, PM-1/SCL High titers Scleroderma, PM/DM Centromere Centromere PSS (limited form) w/Crest syndrome variable Nuclear Dot Sp100,u02-vawjqk Primary Biliary Cirrhosis Nuclear GP210, Primary Biliary CirrhosisMembrane mana A,B,C Performed At: [facility] [id number] Cortes Germain MD Ph:[phone] reported result: Edited by: SUSAN on 08/24/18:53871408/24/18 1608: COLE COMMENT previously reported as: ACUTE HEPATITIS [id number] 16:08:00* Test Item Value Reference Range Interpretation Comments AB HEPATITIS A IGM (test code = HAVMAB) NON REACTIVE INDEX NON REAC T. AG HEPATITIS B SURFACE (test code = HBSAG) NON REACTIVE INDEX NonRe active AB HEPATITIS B CORE IGM (test code = HBCMAB) NON REACTIVE INDEX NON REACT. AB HEPATITIS C (test code = HCVAB) NON REACTIVE INDEX NON REACT. [id number] 12:08:00* Test Item Value Reference Range Interpretation Comments GLUBED (test code = GLUBED) 304 MG/DL 70-110 H Performed by certified welding machine operator submerged arc at [facility] [id number] 08:37:00* Test Item Value Reference Range Interpretation Comments GLUBED (test code = GLUBED) 147 MG/DL 70-110 H Performed by certified welding machine operator submerged arc at [facility] BASIC METABOLIC [id number] 05:38:00* Test Item Value Reference Range Interpretation [...] CA) 7.8 mg/dL 8.0-10.5 L HEPATIC FUNCTION [id number] 05:38:00* Test Item Value Reference Range Interpretation [...] = ALKP) 86 IUnit/L 20-125 N PROTHROMBIN [id number] 05:26:00* Test Item Value Reference Range Interpretation [...] Infarction (to prevent recurrent infarct). THROMBOPLASTIN TIME [id number] 05:26:00* Test Item Value Reference Range Interpretation Comments THROMBOPLASTIN TIME PARTIAL (test code = PTT) 25.8 Seconds 25.0-39. 5 N Therapeutic Range: 61.8-83.8 Sec Effective 08/27/2013 CBC W/AUTO [id number] 05:09:00* Test Item Value Reference Range Interpretation [...] DIFF REQUIRED (test code = MDIFF) NO [id number] 19:53:00* Test Item Value Reference Range Interpretation Comments GLUBED (test code = GLUBED) 324 MG/DL 70-110 H Performed by certified welding machine operator submerged arc at [facility] [id number] 16:34:00* Test Item Value Reference Range Interpretation Comments GLUBED (test code = GLUBED) 233 MG/DL 70-110 H Performed by certified welding machine operator submerged arc at [facility] [id number] 13:28:00* Test Item Value Reference Range Interpretation Comments GLUBED (test code = GLUBED) 222 MG/DL 70-110 H Performed by certified welding machine operator submerged arc at [facility] [id number] 08:23:00* Test Item Value Reference Range Interpretation Comments GLUBED (test code = GLUBED) 152 MG/DL 70-110 H Performed by certified welding machine operator submerged arc at [facility] BASIC METABOLIC [id number] 07:39:00* Test Item Value Reference Range Interpretation [...] CA) 7.9 mg/dL 8.0-10.5 L HEPATIC FUNCTION [id number] 07:39:00* Test Item Value Reference Range Interpretation [...] code = ALKP) 102 IUnit/L 20-125 N [id number] 07:39:00* Test Item Value Reference Range Interpretation Comments MAGNESIUM (test code = MAG) 2.30 mg/dL 1.8-2.4 N CBC W/AUTO [id number] 07:39:00* Test Item Value Reference Range Interpretation [...] DIFF REQUIRED (test code = MDIFF) NO [id number] 22:47:00* Test Item Value Reference Range Interpretation Comments GLUBED (test code = GLUBED) 225 MG/DL 70-110 H Performed by certified welding machine operator submerged arc at [facility] - CT CHEST W/O [id number] 18:42:00 Name: TORI GREGORY [facility] : 1945 Age/S: 72 / M [address] [place] [address] Blvd Unit #: [id number] Loc: [place] [address] Phys: Cooper Evanscomfort CUSTOMER SALES SPECIALIST Acct: [id number] Dis Date: Status: ADM IN PHONE #: [phone] Exam Date: 08/22/2018 175 FAX #: [phone] Reason: EVAL FOR DEGREE OF EVAL. OF PLEURAL EFFUSION EXAMS: CPT CODE: [id number] CT CHEST W/O CONTRAST 47005 PROCEDURE: CT CHEST WITHOUT CONTRAST INDICATION: 72 [...] bibasilar co mpressive atelectasis versus infiltrate. SL: STEIVE PAGE 1 Signed Report (CONTINUED) Name: TORI LAUREN [facility] : 1945 Age/S: 72 / M [address] [place] [address] Blvd Unit #: [id number] L oc: [place] [address] Phys: Mary Jo Evans NP Acct: [id number] Dis Date: Status: ADM IN PHONE #: [phone] Exam Date: 08/22/2018 1754 FAX #: [phone] Man son: EVAL FOR DEGREE OF EVAL. OF PLEURAL EFFUSION EXAMS: CPT CODE: [id number] CT CHEST W/O CONTRAST 57653 <Continued> at 1842 Reported and signed by: Ben Adhikari M.D. CC: Mary Jo Evans NP; Shalom Guillermo MD Technologist:Marito Gordon, RT(R)(CT) CTDI: DLP: Trnscb Date/Time: 08/22/2018 (1841) [email or web address] Orig Print D/T: S: 08/22/2018 (1844) CTDI: DLP: PAGE 2 Signed Report [id number] 17:09:00* Test Item Value Reference Range Interpretation Comments GLUBED (test code = GLUBED) 236 MG/DL 70-110 H Performed by certified welding machine operator submerged arc at [facility] [id number] 11:44:00* Test Item Value Reference Range Interpretation Comments GLUBED (test code = GLUBED) 238 MG/DL 70-110 H Performed by certified welding machine operator submerged arc at [facility] [id number] 11:35:00* Test Item Value Reference Range Interpretation Comments GLUBED (test code = GLUBED) 186 MG/DL 70-110 H Performed by certified welding machine operator submerged arc at [facility] - US ABDOMEN [id number] 09:19:00 Name: TORI GREGORY [facility] : 1945 Age/S: 72 / M [address] [place] [address] Unit #: [id number] Loc: [place] [address] Phys: ZeniaSundar [facility] Acct: [id number] Dis Date: Status: ADM IN PHONE #: [phone] Exam Date: 08/22/2018 0846 FAX #: [phone] Reason: elevated LFTs EXAMS: CPT CODE: [id number] ABDOMEN [facility] [address] PROCEDURE: ABDOMINAL ULTRASOUND INDICATION: 72-year-old male with [...] bowel gas. 4. Right pleural effusion. SL: [id number] at 0919 Reported and signed by: Nallely Sunshine M.D. PAGE 1 Signed Report (CONTINUED) Name: TORI GREGORY [facility] : 1945 Age/S: 72 / M [address] [place] [address] Unit #: [id number] Loc: [place] [address] Phys: GarrisonSundar Acct: [id number] Dis Date: Status: ADM IN PHONE #: [phone] Exam Date: 08/22/2018 0846 FAX #: [phone] Reason: elevated LFTs EXAMS: CPT CODE: [id number] US ABDOMEN LTD [address]2033 <Continued> CC: Sundar LÓPEZ Zenia; Shalom Guillermo MD Technologist: Velia Maza RDMS(Lucho)(OB) Trnscb Date/Time: 08/22/2018 (918) [email or web address] Orig Print D/T: S: 08/22/2018 (09) Probe: PAGE 2 Signed Report HEPATIC FUNCTION [...] IUnit/L 20-125 N - XR CHEST 1 [id number] 07:31:00 FAX: Shalom Lisa I [phone] Kinder: St: ADM FAX: Candie Reinoso (C Name: TORI GREGORY [facility] : 1945 Age/S: 72/M [address] [place], [place] [address]vd Unit #: [id number] Loc: G.[address] [place] [address] Phys: Candie Reinoso (Beckie) CUSTOMER SALES SPECIALIST Acct: [id number] Dis Date: Status: ADM IN PHONE #: [phone] Exam Date: 08/22/2018 0553 FAX #: [phone] Reason: Cardiac Surgery Post Op EXAMS: CPT CODE: [id number] XR CHEST 1 V 41086 - XR CHEST 1 V 08/22/2018 5:00 [...] chest radiograph from the prior day. SL: CY-H at 0717 Reported and signed by: Ben Mendoza M.D. CC: Shalom Guillermo MD; Candie Reinoso NP (Christy) Technologist: Milton Kuhn, RT(R); Maine Dash RT(R) Trnwird Date/Time/By: 08/22/2018 (0731) : By: KortneyJY5 Orig Print D/T: S: 08/22/2018 (0734) PAGE 1 Signed Report CBC W/AUTO [id number] 05:16:00* Test Item Value Reference Range Interpretation [...] NO COMMENTS: Daily while on HeparinCOMPREHENSIVE METABOLIC [id number] 05:16:00 * Test Item Value Reference Range [...] code = ALKP) 111 IUnit/L 20-125 N [id number] 05:16:00* Test Item Value Reference Range Interpretation Comments MAGNESIUM (test code = MAG) 2.40 mg/dL 1.8-2.4 N [id number] 21:08:00* Test Item Value Reference Range Interpretation Comments GLUBED (test code = GLUBED) 200 MG/DL 70-110 H Performed by certified welding machine operator submerged arc at [facility] [id number] 18:41:00* Test Item Value Reference Range Interpretation Comments GLUBED (test code = GLUBED) 269 MG/DL 70-110 H Performed by certified welding machine operator submerged arc at [facility] ANTINUCLEAR ANTIBODIES [id number] 15:18:00* Test Item Value Reference Range Interpretation Comments COLE SCREEN (test code = ANASCR) ACUTE HEPATITIS [id number] 15:18:00* Test Item Value Reference Range Interpretation Comments AB HEPATITIS A IGM (test code = HAVMAB) NON REACTIVE INDEX NON REAC T. AG HEPATITIS B SURFACE (test code = HBSAG) NON REACTIVE INDEX NonRe active AB HEPATITIS B CORE IGM (test code = HBCMAB) NON REACTIVE INDEX NON REACT. AB HEPATITIS C (test code = HCVAB) NON REACTIVE INDEX NON REACT. ANTINUCLEAR ANTIBODIES [id number] 15:16:00* Test Item Value Reference Range Interpretation Comments COLE SCREEN (test code = ANASCR) ACUTE HEPATITIS [id number] 15:16:00* Test Item Value Reference Range Interpretation Comments AB HEPATITIS A IGM (test code = HAVMAB) INDEX NON REACT. AG HEPATITIS B SURFACE (test code = HBSAG) NON REACTIVE INDEX NonRe active AB HEPATITIS B CORE IGM (test code = HBCMAB) NON REACTIVE INDEX NON REACT. AB HEPATITIS C (test code = HCVAB) NON REACTIVE INDEX NON REACT. ANTINUCLEAR ANTIBODIES [id number] 15:15:00* Test Item Value Reference Range Interpretation Comments COLE SCREEN (test code = ANASCR) ACUTE HEPATITIS [id number] 15:15:00* Test Item Value Reference Range Interpretation Comments AB HEPATITIS A IGM (test code = HAVMAB) INDEX NON REACT. AG HEPATITIS B SURFACE (test code = HBSAG) NON REACTIVE INDEX NonRe active AB HEPATITIS B CORE IGM (test code = HBCMAB) INDEX NON REACT . AB HEPATITIS C (test code = HCVAB) NON REACTIVE INDEX NON REACT. ANTINUCLEAR ANTIBODIES [id number] 14:54:00* Test Item Value Reference Range Interpretation Comments COLE SCREEN (test code = ANASCR) ACUTE HEPATITIS [id number] 14:54:00* Test Item Value Reference Range Interpretation Comments AB HEPATITIS A IGM (test code = HAVMAB) INDEX NON REACT. AG HEPATITIS B SURFACE (test code = HBSAG) NON REACTIVE INDEX NonRe active AB HEPATITIS B CORE IGM (test code = HBCMAB) INDEX NON REACT . AB HEPATITIS C (test code = HCVAB) INDEX NON REACT. [id number] 14:24:00* Test Item Value Reference Range Interpretation Comments ACETAMINOPHEN (test code = ACET) < 2 ug/mL 10-30 L - CT ABD PELVIS W/O [id number] 13:28:00 Name: TORI GREGORY [facility] : 1945 Age/S: 72 / M [address] [place] [address] Unit #: [id number] Loc: [place] [address] Phys: Mary oJ Evans CUSTOMER SALES SPECIALIST Acct: [id number] Dis Date: Status: ADM IN PHONE #: [phone] Exam Date: 08/21/2018 1235 FAX #: [phone] Reason: elevated lft and abd pain EXAMS: CPT CODE: [id number] CT ABD PELVIS W/O CONT 13423 EXAM: CT ABDOMEN/PELVIS WITHOUT CONTRAST HISTORY: 72 [...] repair. PAGE 1 Signed Report (CONTINUED) Name: TORI GUERRERO CH [facility] : 1945 Age/ S: 72 / M [address] [place] [address] Unit #: [id number] Loc: [place] [address] Phys: Mary Jo Evans NP Acct: [id number] Dis Date: Status: ADM IN PHONE #: [phone] Exam Date: 08/21/2018 1235 FAX #: [phone] Reason: elevated lft and abd pain EXAMS: CPT CODE: [id number] CT ABD PELVIS W/O CONT 81305 <Continued> RETROPERITONEUM: The aorta is normal in [...] fat-containing left inguinal hernia. 5. Prostatomegaly. SL: [id number] at 1328 Reported and signed by: Nallely Sunshine M.D. CC: Mary Jo Evans NP; Shalom Guillermo MD Technologist:Omero Weir, (R) CTDI: DLP: Trnscb Date/Time: 08/21/2018 (1328) t.[email or web address] Orig Print D/T: S: 08/21/2018 (6228) CTDI: DLP: PAGE 2 Signed Report HEPATIC FUNCTION [id number] 10:44:00* Test Item Value Reference Range Interpretation [...] code = ALKP) 131 IUnit/L 20-125 H [id number] 09:10:00* Test Item Value Reference Range Interpretation Comments GLUBED (test code = GLUBED) 228 MG/DL 70-110 H Performed by certified welding machine operator submerged arc at [facility] - XR CHEST 1 [id number] 07:37:00 FAX: Shalom Lisa I [phone] Kinder: St: ADM FAX: Candie Reinoso Name: UZIEL HENDERSONELVIABASIL [facility] : 1945 Age/S: 72/M [address] [place] [address] Unit #: [id number] Loc: G.[facility] [place] [address] Phys: Candie Reinoso NP (Christy) Acct: [id number] Dis Date: Status: ADM IN PHONE #: [phone] Exam Date: 08/21/2018 0545 FAX #: [phone] Reason: Cardiac Surgery Post Op EXAMS: CPT CODE: [id number] XR CHEST 1 V 72200 - XR CHEST 1 V 08/21/2018 5:00 [...] not definitively seen, may be outside the zullg-es-bmbo or removed. 2. Bilateral moderate layering pleural effusions with bibasilar hazy densities. 3. Ca rdiomegaly. SL: CY-H * * at 0737 Reported and signed by: Ben Mendoza M.D. CC: Shalom Guillermo MD; Marcell Reinoso NP (Christy) Technologist: Milton Kuhn, RT(R); Dilcia chua, RT(R) Trnscrd Date/Time/By: 08/21/2018 (0737) : By: KortneyJY5 Orig Print D/T: S: 08/21/2018 (0741) PAGE 1 Signed Report BASIC METABOLIC [id number] 04:39:00* Test Item Value Reference Range Interpretation [...] code = CA) 7.4 mg/dL 8.0-10.5 L [id number] 04:39:00* Test Item Value Reference Range Interpretation Comments MAGNESIUM (test code = MAG) 2.70 mg/dL 1.8-2.4 H CBC W/AUTO [id number] 04:19:00* Test Item Value Reference Range Interpretation [...] MDIFF) NO COMMENTS: Daily while on HeparinURINALYSIS [id number] 01:22:00* Test Item Value Reference Range Interpretation [...] MUCU) 1+ /LPF NONE SEEN UA CULT [id number] 01:22:00* Test Item Value Reference Range Interpretation Comments UA CULTURE NEEDED? (test code = UACULT) NO, WBC<10 Criteria Culture Chk Criteria not met, Urine Culture cancelled. COMPREHENSIVE METABOLIC [id number] 00:42:00* Test Item Value Reference Range Interpretation [...] ALKP) 133 IUnit/L 20-125 H ARTERIAL BLOOD [id number] 00:19:00* Test Item Value Reference Range Interpretation [...] = HOLLAND) Room Air Performed by certified welding machine operator submerged arc at [facility] ABG TEMPERATURE (test code = TEMPA) 98.6 F ABG SITE (test code = SITEA) R Rad TCO2 ARTERIAL (test code = TCO2A) 22 CBC W/AUTO [id number] 00:14:00* Test Item Value Reference Range Interpretation [...] DIFF REQUIRED (test code = MDIFF) NO [id number] 20:51:00* Test Item Value Reference Range Interpretation Comments GLUBED (test code = GLUBED) 279 MG/DL 70-110 H Performed by certified welding machine operator submerged arc at [facility] [id number] 17:42:00* Test Item Value Reference Range Interpretation Comments MAGNESIUM (test code = MAG) 2.50 mg/dL 1.8-2.4 H [id number] 17:26:00* Test Item Value Reference Range Interpretation Comments GLUBED (test code = GLUBED) 199 MG/DL 70-110 H Performed by certified welding machine operator submerged arc at [facility] - XR ABDOMEN 1V (KUB)2018-08-20 14:10:00 FAX: Shalom Lisa I [phone] Kinder: St: ADM FAX: Courtney Laws MD [phone] Name: TORI GREGORY [facility] : 1945 Age/S: 72/M [address] [place] [address] Bl Unit #: [id number] Loc: G.[address] [place], [place] [address] Phys: Courtney Correa MD Acct: [id number] Dis Date: Status: ADM IN PHONE #: [phone] Exam Date: 08/20/2018 1323 FAX #: [phone] Reason: constipation, abd blo ating EXAMS: CPT CODE: [id number] XR ABDOMEN 1V (KUB) 22172 ONE VIEW ABDOMEN: HISTORY: Constipation with abdo [...] MD Technologist: RT Misti(R) Trnscrd Date/Time/By: 08/20/2018 (9470) : By: Sury.[facility]/Sury.[facility] O rig Print D/T: S: 08/20/2018 (9331) PAGE 1 Signed Report [id number] 12:14:00* Test Item Value Reference Range Interpretation Comments GLUBED (test code = GLUBED) 275 MG/DL 70-110 H Performed by certified welding machine operator submerged arc at [facility] ISTAT BLOOD [id number] 11:44:00* Test Item Value Reference Range Interpretation [...] code = SITEA) Art line BLOOD GAS W/[id number] 11:44:00* Test Item Value Reference Range Interpretation [...] = PSABG) 10 cmH2O Performed by certified welding machine operator submerged arc at [facility] ABG TEMPERATURE (test code = TEMPA) 98.0 F ABG SITE (test code = SITEA) Art line IONIZED CALCIUM (test code = CAIABG) 1.14 mmoL/L 1.15-1.35 L SODIUM BEDSIDE (test code = NAB) 144 MEQ/L 134-147 N POTASSIUM BEDSIDE (test code = KBD) 4.0 MEQ/L 4.5-7.0 L [id number] 08:33:00* Test Item Value Reference Range Interpretation Comments GLUBED (test code = GLUBED) 186 MG/DL 70-110 H Performed by certified welding machine operator submerged arc at [facility] BASIC METABOLIC [id number] 08:18:00* Test Item Value Reference Range Interpretation [...] code = CA) 8.3 mg/dL 8.0-10.5 N [id number] 08:18:00* Test Item Value Reference Range Interpretation Comments MAGNESIUM (test code = MAG) 2.80 mg/dL 1.8-2.4 H CBC W/AUTO [id number] 07:47:00* Test Item Value Reference Range Interpretation [...] Daily while on Heparin- XR CHEST 1 [id number] 07:18:00 FAX: Shalom Lisa I [phone] Kinder: St: ADM FAX: Candie Reinoso (C Name: TRIPLETT TORI HENDERSON [facility] : 1945 Age/S: 72/M [address] [place] [address] Unit #: [id number] Loc: G.[address] [facility] [address] Phys: Candie Reinoso NP (Christy) Acct: [id number] Dis Date: Status: ADM IN PHONE #: [phone] Exam Date: 08/20/2018 0600 FAX #: [phone] Reason: Cardiac Surgery Post Op EXAMS: CPT CODE: [id number] XR CHEST 1 V 35588 - XR CHEST 1 V 08/20/2018 5:00 [...] (Christy) Technologist: Milton Kuhn, RT(R); RT Desirae(R) Trnwird Date/Time/By: 08/20/2018 (07) : By: KortneyJY5 Orig Print D/T: S: 08/20/2018 (07) PAGE 1 Signed Report [id number] 21:21:00* Test Item Value Reference Range Interpretation Comments GLUBED (test code = GLUBED) 215 MG/DL 70-110 H Performed by certified welding machine operator submerged arc at [facility] [id number] 18:04:00* Test Item Value Reference Range Interpretation Comments GLUBED (test code = GLUBED) 223 MG/DL 70-110 H Performed by certified welding machine operator submerged arc at [facility] ISTAT BLOOD [id number] 14:34:00* Test Item Value Reference Range Interpretation [...] ACID (test code = POCLAC) mmol/L 0.9-1.7 [id number] 11:40:00* Test Item Value Reference Range Interpretation Comments GLUBED (test code = GLUBED) 229 MG/DL 70-110 H Performed by certified welding machine operator submerged arc at [facility] [id number] 08:41:00* Test Item Value Reference Range Interpretation Comments GLUBED (test code = GLUBED) 167 MG/DL 70-110 H Performed by certified welding machine operator submerged arc at [facility] CBC W/AUTO [id number] 08:03:00* Test Item Value Reference Range Interpretation [...] MDIFF) NO COMMENTS: Daily while on HeparinPLT [id number] 08:03:00* Test Item Value Reference Range Interpretation Comments PLATELET ESTIMATE (test code = PLTEST) 84-105 THOUSAND ADEQUATE PLATELET MORPHOLOGY (test code = PLTMORPH) LARGE PLATELETS COMMENTS: Daily while on HeparinBASIC METABOLIC [id number] 07:53:00* Test Item Value Reference Range Interpretation [...] code = CA) 7.8 mg/dL 8.0-10.5 L [id number] 07:53:00* Test Item Value Reference Range Interpretation Comments MAGNESIUM (test code = MAG) 3.20 mg/dL 1.8-2.4 H CBC W/AUTO [id number] 07:35:00* Test Item Value Reference Range Interpretation [...] MDIFF) NO COMMENTS: Daily while on HeparinPLT [id number] 07:35:00* Test Item Value Reference Range Interpretation Comments PLATELET ESTIMATE (test code = PLTEST) THOUSAND ADEQUATE COMMENTS: Daily while on HeparinCBC W/AUTO [id number] 07:35:00* Test Item Value Reference Range Interpretation [...] MDIFF) NO COMMENTS: Daily while on HeparinPLT [id number] 07:35:00* Test Item Value Reference Range Interpretation Comments PLATELET ESTIMATE (test code = PLTEST) THOUSAND ADEQUATE COMMENTS: Daily while on Heparin- XR CHEST 1 [id number] 07:20:00 FAX: Shalom Lisa I [phone] Kinder: St: [facility] FAX: Candie Reinosoh (C Name: TORI GREGORY [facility] : 1945 Age/S: 72/M [address] [place], [place] [address]vd Unit #: [id number] Loc: G.[address] [place] [address] Phys: Candie Reinoso NP (Christy) Acct: [id number] Dis Date: Status: ADM IN PHONE #: [phone] Exam Date: 08/19/2018 0547 FAX #: [phone] Reason: Cardiac Surgery Post Op EXAMS: CPT CODE: [id number] XR CHEST 1 V 42827 - XR CHEST 1 V 08/19/2018 5:00 [...] Date/Jason e/By: 08/19/2018 (0720) : By: KortneyJY5 [facility] Print D/T: S: 08/19/2018 (0714) PAGE 1 Signed Report COAGULATION TIME [id number] 06:46:00* Test Item Value Reference Range Interpretation Comments COAGULATION TIME ACTIVATED (test code = ACT) 122 SECONDS 105-167 N COAGULATION TIME [id number] 06:46:00* Test Item Value Reference Range Interpretation Comments COAGULATION TIME ACTIVATED (test code = ACT) 564 SECONDS 105-167 H COAGULATION TIME [id number] 06:46:00* Test Item Value Reference Range Interpretation Comments COAGULATION TIME ACTIVATED (test code = ACT) 521 SECONDS 105-167 H COAGULATION TIME [id number] 06:46:00* Test Item Value Reference Range Interpretation Comments COAGULATION TIME ACTIVATED (test code = ACT) 499 SECONDS 105-167 H COAGULATION TIME [id number] 06:42:00* Test Item Value Reference Range Interpretation Comments COAGULATION TIME ACTIVATED (test code = ACT) 532 SECONDS 105-167 H COAGULATION TIME [id number] 06:42:00* Test Item Value Reference Range Interpretation Comments COAGULATION TIME ACTIVATED (test code = ACT) 109 SECONDS 105-167 N [id number] 21:28:00* Test Item Value Reference Range Interpretation Comments GLUBED (test code = GLUBED) 179 MG/DL 70-110 H Performed by certified welding machine operator submerged arc at [facility] BASIC METABOLIC [id number] 17:20:00* Test Item Value Reference Range Interpretation [...] code = CA) 7.8 mg/dL 8.0-10.5 L [id number] 17:20:00* Test Item Value Reference Range Interpretation Comments MAGNESIUM (test code = MAG) 3.00 mg/dL 1.8-2.4 H [id number] 17:19:00* Test Item Value Reference Range Interpretation Comments GLUBED (test code = GLUBED) 205 MG/DL 70-110 H Performed by certified welding machine operator submerged arc at [facility] [id number] 12:16:00* Test Item Value Reference Range Interpretation Comments GLUBED (test code = GLUBED) 210 MG/DL 70-110 H Performed by certified welding machine operator submerged arc at [facility] [id number] 10:22:00* Test Item Value Reference Range Interpretation Comments GLUBED (test code = GLUBED) 249 MG/DL 70-110 H Performed by certified welding machine operator submerged arc at [facility] - XR CHEST 1 [id number] 08:18:00 FAX: Shalom Lisa I [phone] Kinder: St: ADM FAX: Candie Reinoso (C Name: TORI GREGORY [facility] : 1945 Age/S: 72/M [address] [place] [address] Unit #: [id number] Loc: G.[address] [place] [address] Phys: Candie Reinoso (Christy) CUSTOMER SALES SPECIALIST Acct: [id number] Dis Date: Status: ADM IN PHONE #: [phone] Exam Date: 08/18/2018 0742 FAX #: [phone] Reason: Cardiac Surgery Post Op EXAMS: CPT CODE: [id number] XR CHEST 1 V 48947 CHEST, SINGLE VIEW HISTORY: Coronary artery disease, [...] Technologist: Maya Davidson, RT(R); Yady Aldrich, RT(R) [facility] Date/Time/By: 08/18/2018 (0818) : By: Shilpi Orig Print D/T: S: 08/18/2018 (0804) PAGE 1 Signed Report BASIC METABOLIC [id number] 04:33:00* Test Item Value Reference Range Interpretation [...] code = CA) 7.9 mg/dL 8.0-10.5 L [id number] 04:33:00* Test Item Value Reference Range Interpretation Comments MAGNESIUM (test code = MAG) 2.90 mg/dL 1.8-2.4 H CBC W/AUTO [id number] 04:17:00* Test Item Value Reference Range Interpretation [...] = MDIFF) NO COMMENTS: Daily while on [id number] 21:13:00* Test Item Value Reference Range Interpretation Comments GLUBED (test code = GLUBED) 201 MG/DL 70-110 H Performed by certified welding machine operator submerged arc at [facility] [id number] 19:10:00* Test Item Value Reference Range Interpretation Comments GLUBED (test code = GLUBED) 224 MG/DL 70-110 H Performed by certified welding machine operator submerged arc at [facility] [id number] 12:14:00* Test Item Value Reference Range Interpretation Comments GLUBED (test code = GLUBED) 197 MG/DL 70-110 H Performed by certified welding machine operator submerged arc at [facility] - XR CHEST 1 [id number] 08:44:00 FAX: Shalom Lisa I [phone] Kinder: St: ADM FAX: Candie Reinoso (C Name: TORI GREGORY [facility] : 1945 Age/S: 72/M [address] [place] [address] Unit #: [id number] Loc: [address] [address] Phys: Candie Reinoso (Beckie) CUSTOMER SALES SPECIALIST Acct: [id number] Dis Date: Status: ADM IN PHONE #: [phone] Exam Date: 08/17/2018813 FAX #: [phone] Reason: Cardiac Surgery Post Op EXAMS: CPT CODE: [id number] XR CHEST 1 V 01470 CHEST, SINGLE VIEW HISTORY: Congestive heart failure, [...] of postoperative lung base atelectasis. SL:01 at 0895 Reported and signed by: William Perez M.D. CC: Shalom Guillermo MD; Candie Reinoso NP (Christy) Technologist: Maya Davidson, RT(R); Yady Aldrich, RT(R) Trnscrd Date/Time/By: 08/17/2018 (0844) : By: Shilpi Orig Print D/T: S: 08/17/2018 (0808) PAGE 1 Signed Report [id number] 07:33:00* Test Item Value Reference Range Interpretation Comments GLUBED (test code = GLUBED) 114 MG/DL 70-110 H Performed by certified welding machine operator submerged arc at [facility] [id number] 07:03:00* Test Item Value Reference Range Interpretation Comments GLUBED (test code = GLUBED) 108 MG/DL 70-110 N Performed by certified welding machine operator submerged arc at [facility] [id number] 06:17:00* Test Item Value Reference Range Interpretation Comments GLUBED (test code = GLUBED) 157 MG/DL 70-110 H Performed by certified welding machine operator submerged arc at [facility] BLOOD GAS W/[id number] 05:51:00* Test Item Value Reference Range Interpretation [...] KBD) 4.6 MEQ/L 4.5-7.0 N ISTAT BLOOD [id number] 05:45:00* Test Item Value Reference Range Interpretation [...] POCLAC) 1.0 mmol/L 0.9-1.7 N BASIC METABOLIC [id number] 04:42:00* Test Item Value Reference Range Interpretation [...] mg/dL 8.0-10.5 L COMMENTS: POD #1HEPATIC FUNCTION [id number] 04:42:00* Test Item Value Reference Range Interpretation [...] ALKP) 33 IUnit/L 20-125 N COMMENTS: POD #[id number] 04:42:00* Test Item Value Reference Range Interpretation Comments MAGNESIUM (test code = MAG) 2.90 mg/dL 1.8-2.4 H COMMENTS: POD #1CBC W/AUTO [id number] 04:25:00* Test Item Value Reference Range Interpretation [...] = MDIFF) NO COMMENTS: Daily while on [id number] 02:33:00* Test Item Value Reference Range Interpretation Comments GLUBED (test code = GLUBED) 173 MG/DL 70-110 H Performed by certified welding machine operator submerged arc at [facility] [id number] 00:28:00* Test Item Value Reference Range Interpretation Comments GLUBED (test code = GLUBED) 199 MG/DL 70-110 H Performed by certified welding machine operator submerged arc at [facility] [id number] 00:25:00* Test Item Value Reference Range Interpretation Comments POTASSIUM (test code = K) 4.8 mEq/L 3.4-5.0 N HGB [id number] 00:21:00* Test Item Value Reference Range Interpretation Comments HEMOGLOBIN (test code = HGB) 6.8 g/dL 12.5-16.9 L HEMATOCRIT (test code = HCT) 21.9 % 37.5-50.7 L [id number] 22:46:00* Test Item Value Reference Range Interpretation Comments GLUBED (test code = GLUBED) 232 MG/DL 70-110 H Performed by certified welding machine operator submerged arc at [facility] [id number] 20:37:00* Test Item Value Reference Range Interpretation Comments GLUBED (test code = GLUBED) 229 MG/DL 70-110 H Performed by certified welding machine operator submerged arc at [facility] [id number] 19:39:00* Test Item Value Reference Range Interpretation Comments GLUBED (test code = GLUBED) 206 MG/DL 70-110 H Performed by certified welding machine operator submerged arc at [facility] [id number] 19:27:00* Test Item Value Reference Range Interpretation Comments GLUBED (test code = GLUBED) 168 MG/DL 70-110 H Performed by certified welding machine operator submerged arc at [facility] [id number] 19:27:00* Test Item Value Reference Range Interpretation Comments GLUBED (test code = GLUBED) 203 MG/DL 70-110 H Performed by certified welding machine operator submerged arc at [facility] [id number] 19:27:00* Test Item Value Reference Range Interpretation Comments GLUBED (test code = GLUBED) 229 MG/DL 70-110 H Performed by certified welding machine operator submerged arc at [facility] [id number] 19:27:00* Test Item Value Reference Range Interpretation Comments GLUBED (test code = GLUBED) 170 MG/DL 70-110 H Performed by certified welding machine operator submerged arc at [facility] [id number] 19:27:00* Test Item Value Reference Range Interpretation Comments GLUBED (test code = GLUBED) 154 MG/DL 70-110 H Performed by certified welding machine operator submerged arc at [facility] [id number] 19:27:00* Test Item Value Reference Range Interpretation Comments GLUBED (test code = GLUBED) 176 MG/DL 70-110 H Performed by certified welding machine operator submerged arc at [facility] [id number] 19:27:00* Test Item Value Reference Range Interpretation Comments GLUBED (test code = GLUBED) 148 MG/DL 70-110 H Performed by certified welding machine operator submerged arc at [facility] [id number] 18:46:00* Test Item Value Reference Range Interpretation Comments POTASSIUM (test code = K) 4.2 mEq/L 3.4-5.0 N HGB [id number] 18:42:00* Test Item Value Reference Range Interpretation Comments HEMOGLOBIN (test code = HGB) 7.3 g/dL 12.5-16.9 L HEMATOCRIT (test code = HCT) 23.2 % 37.5-50.7 L ISTAT BLOOD [id number] 18:39:00* Test Item Value Reference Range Interpretation [...] code = HOLLAND) Venti Performed by certified welding machine operator submerged arc at [facility] ABG TEMPERATURE (test code = TEMPA) 98.0 F ABG SITE (test code = SITEA) Art line PREDICTED AA GRADIENT (test code = AP) 64 PREDICTED PO2 (test code = OP) 183 a/A RATIO (test code = RATIO) 0.37 POC LACTIC ACID (test code = POCLAC) 6.0 mmol/L 0.9-1.7 HH A-A GRADIENT (test code = AAGRADE) 157 [id number] 16:30:00* Test Item Value Reference Range Interpretation Comments GLUBED (test code = GLUBED) 193 MG/DL 70-110 H Performed by certified welding machine operator submerged arc at [facility] BLOOD GAS W/[id number] 16:15:00* Test Item Value Reference Range Interpretation [...] = PSABG) 10 cmH2O Performed by certified welding machine operator submerged arc at [facility] ABG TEMPERATURE (test code = TEMPA) 98.0 F ABG SITE (test code = SITEA) Art line IONIZED CALCIUM (test code = CAIABG) 1.14 mmoL/L 1.15-1.35 L SODIUM BEDSIDE (test code = NAB) 144 MEQ/L 134-147 N POTASSIUM BEDSIDE (test code = KBD) 4.0 MEQ/L 4.5-7.0 L - XR CHEST 1 [id number] 14:29:00 FAX: Shalom Lisa I [phone] Kinder: St: ADM FAX: Candie Reinoso (Beba Name: TORI GREGORY [facility] : 1945 Age/S: 72/M [address] [place] [address] Unit #: [id number] Loc: G.[address] [place] [address] 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 PORTABLE EXAM 1:57 PM HISTORY: Postop cardiac surgery. COMPARISON: 08/08/2018 chest x-ray. Right IJ central line, ET tube and NG tube all in apparent good position. Stable cardiomegaly. Shallow inspiration which does accentuate pulmonary markings. No pneumothorax. No appreciable pleural fluid collections. IMPRESSION: Shallow inspiration. Support devices appear well-positioned. Otherwise normal exam. END OF IMPRESSION SL: [id number] at 1429 Reported and signed by: Dustin Marie M.D. CC: Shalom Guillermo MD; Candie Reinoso NP (Christy) Technologist: RT Deuce(Myriam) Trnscrd Date/Time/By: 08/16/2018 (7890) : By: KortneyRTNorman Orig Print D/T: S: 08/16/2018 (6635) PAGE 1 Signed Report ARTERIAL BLOOD [id number] 14:27:00* Test Item Value Reference Range Interpretation [...] = PEEPA) 5 cmH2O Performed by certified welding machine operator submerged arc at [facility] ABG TEMPERATURE (test code = TEMPA) 98.0 F ABG SITE (test code = SITEA) Art line PREDICTED AA GRADIENT (test code = AP) 62 PREDICTED PO2 (test code = OP) 178 a/A RATIO (test code = RATIO) 0.34 TCO2 ARTERIAL (test code = TCO2A) 24 A-A GRADIENT (test code = AAGRADE) 160 [id number] 14:12:00* Test Item Value Reference Range Interpretation Comments GLUBED (test code = GLUBED) 163 MG/DL 70-110 H Performed by certified welding machine operator submerged arc at [facility] BASIC METABOLIC [id number] 13:26:00* Test Item Value Reference Range Interpretation [...] CA) 7.1 mg/dL 8.0-10.5 L COMMENTS: On [id number] 13:26:00* Test Item Value Reference Range Interpretation Comments MAGNESIUM (test code = MAG) 3.90 mg/dL 1.8-2.4 H COMMENTS: On arrivalPROTHROMBIN [id number] 13:12:00* Test Item Value Reference Range Interpretation [...] prevent recurrent infarct). COMMENTS: On arrivalTHROMBOPLASTIN TIME [id number] 13:12:00* Test Item Value Reference Range Interpretation Comments THROMBOPLASTIN TIME PARTIAL (test code = PTT) 30.8 Seconds 25.0-39. 5 N Therapeutic Range: 61.8-83.8 Sec Effective 08/27/2013 COMMENTS: On arrivalISTAT BLOOD [id number] 13:04:00* Test Item Value Reference Range Interpretation [...] = PEEPA) 5 cmH2O Performed by certified welding machine operator submerged arc at [facility] ABG TEMPERATURE (test code = TEMPA) 98.0 F ABG SITE (test code = SITEA) Art line PREDICTED AA GRADIENT (test code = AP) 81 PREDICTED PO2 (test code = OP) 233 a/A RATIO (test code = RATIO) 0.35 POC LACTIC ACID (test code = POCLAC) 4.9 mmol/L 0.9-1.7 HH A-A GRADIENT (test code = AAGRADE) 205 CBC W/AUTO [id number] 13:02:00* Test Item Value Reference Range Interpretation [...] = MDIFF) NO COMMENTS: On arrivalBLOOD GAS W/[id number] 12:58:00* Test Item Value Reference Range Interpretation [...] = PEEPA) 5 cmH2O Performed by certified welding machine operator submerged arc at [facility] ABG TEMPERATURE (test code = [...] code = KBD) 3.8 MEQ/L 4.5-7.0 L [id number] 12:53:00* Test Item Value Reference Range Interpretation Comments GLUBED (test code = GLUBED) 159 MG/DL 70-110 H Performed by certified welding machine operator submerged arc at [facility] PROTHROMBIN [id number] 12:38:00* Test Item Value Reference Range Interpretation [...] Infarction (to prevent recurrent infarct). THROMBOPLASTIN TIME [id number] 12:38:00* Test Item Value Reference Range Interpretation Comments THROMBOPLASTIN TIME PARTIAL (test code = PTT) 34.6 Seconds 25.0-39. 5 Therapeutic Range: 61.8-83.8 Sec Effective 08/27/2013 HGB [id number] 12:11:00* Test Item Value Reference Range Interpretation Comments HEMOGLOBIN (test code = HGB) 8.9 g/dL 12.5-16.9 L HEMATOCRIT (test code = HCT) 27.8 % 37.5-50.7 L PLATELET [id number] 12:11:00* Test Item Value Reference Range Interpretation Comments PLATELET COUNT (test code = PLT) 149 x10 3/uL 150-400 L POC ARTERIAL BLOOD [id number] 11:42:00* Test Item Value Reference Range Interpretation Comments POC ARTERIAL BLOOD GAS PH (test code = POCPHA) 7.348 7.35-7. 45 L POC ARTERIAL BLOOD GAS PCO2 (test code = XOFUYC4F) 34.2 mmHg 35. 0-45 L POC TCO2 ARTERIAL (test code = POCTCO2) 19.8 POC ARTERIAL BLOOD GAS PO2 (test code = ZHOQZ6M) 320.4 mmHg 80-10 0.0 HH POC HCO3 ARTERIAL (test code = ZUETUL5O) 18.8 MMOL/L 22.0-26.0 L POC BASE EXCESS (test code = POCBEA) -6.2 MMOL/L -4.0-4.0 L POC O2 SATURATION (test code = POCO2S) 99.9 % 90-100 N [id number] 11:42:00* Test Item Value Reference Range Interpretation Comments SODIUM (test code = NA/ABG) MEQ/L 134-147 [id number] 11:42:00* Test Item Value Reference Range Interpretation Comments POTASSIUM (test code = K/ABG) MEQ/L 3.4-5.0 [id number] 11:42:00* Test Item Value Reference Range Interpretation Comments CHLORIDE (test code = CL/ABG) MEQ/L 100-108 CREATININE [id number] 11:42:00* Test Item Value Reference Range Interpretation Comments CREATININE ABG (test code = CREAABG) mg/dL 0.8-1.3 [id number] 11:42:00* Test Item Value Reference Range Interpretation Comments HEMOGLOBIN (test code = HGB/ABG) G/DL 12.5-16.9 [id number] 11:42:00* Test Item Value Reference Range Interpretation Comments HEMATOCRIT (test code = HCT/ABG) % 37.5-50.7 POC IONIZED [id number] 11:42:00* Test Item Value Reference Range Interpretation Comments POC IONIZED CALCIUM (test code = POCCA) MMOL/L 1.12-1.32 POC [id number] 11:42:00* Test Item Value Reference Range Interpretation Comments POC GLUCOSE (test code = POCGLU) MG/DL 70-110 POC ARTERIAL BLOOD [id number] 11:42:00* Test Item Value Reference Range Interpretation Comments POC ARTERIAL BLOOD GAS PH (test code = POCPHA) 7.348 7.35-7. 45 L POC ARTERIAL BLOOD GAS PCO2 (test code = KREOTE7M) 34.2 mmHg 35. 0-45 L POC TCO2 ARTERIAL (test code = POCTCO2) 19.8 POC ARTERIAL BLOOD GAS PO2 (test code = KFINO2J) 320.4 mmHg 80-10 0.0 HH POC HCO3 ARTERIAL (test code = MDTCYS3Q) 18.8 MMOL/L 22.0-26.0 L POC BASE EXCESS (test code = POCBEA) -6.2 MMOL/L -4.0-4.0 L POC O2 SATURATION (test code = POCO2S) 99.9 % 90-100 N [id number] 11:42:00* Test Item Value Reference Range Interpretation Comments SODIUM (test code = NA/ABG) 141 MEQ/L 134-147 N [id number] 11:42:00* Test Item Value Reference Range Interpretation Comments POTASSIUM (test code = K/ABG) MEQ/L 3.4-5.0 [id number] 11:42:00* Test Item Value Reference Range Interpretation Comments CHLORIDE (test code = CL/ABG) MEQ/L 100-108 CREATININE [id number] 11:42:00* Test Item Value Reference Range Interpretation Comments CREATININE ABG (test code = CREAABG) mg/dL 0.8-1.3 [id number] 11:42:00* Test Item Value Reference Range Interpretation Comments HEMOGLOBIN (test code = HGB/ABG) G/DL 12.5-16.9 [id number] 11:42:00* Test Item Value Reference Range Interpretation Comments HEMATOCRIT (test code = HCT/ABG) % 37.5-50.7 POC IONIZED [id number] 11:42:00* Test Item Value Reference Range Interpretation Comments POC IONIZED CALCIUM (test code = POCCA) MMOL/L 1.12-1.32 POC [id number] 11:42:00* Test Item Value Reference Range Interpretation Comments POC GLUCOSE (test code = POCGLU) MG/DL 70-110 POC ARTERIAL BLOOD [id number] 11:42:00* Test Item Value Reference Range Interpretation Comments POC ARTERIAL BLOOD GAS PH (test code = POCPHA) 7.348 7.35-7. 45 L POC ARTERIAL BLOOD GAS PCO2 (test code = ZMBARL8R) 34.2 mmHg 35. 0-45 L POC TCO2 ARTERIAL (test code = POCTCO2) 19.8 POC ARTERIAL BLOOD GAS PO2 (test code = MCSKA0V) 320.4 mmHg 80-10 0.0 HH POC HCO3 ARTERIAL (test code = WRJIVJ8N) 18.8 MMOL/L 22.0-26.0 L POC BASE EXCESS (test code = POCBEA) -6.2 MMOL/L -4.0-4.0 L POC O2 SATURATION (test code = POCO2S) 99.9 % 90-100 N [id number] 11:42:00* Test Item Value Reference Range Interpretation Comments SODIUM (test code = NA/ABG) 141 MEQ/L 134-147 N [id number] 11:42:00* Test Item Value Reference Range Interpretation Comments POTASSIUM (test code = K/ABG) 3.7 MEQ/L 3.4-5.0 N [id number] 11:42:00* Test Item Value Reference Range Interpretation Comments CHLORIDE (test code = CL/ABG) MEQ/L 100-108 CREATININE [id number] 11:42:00* Test Item Value Reference Range Interpretation Comments CREATININE ABG (test code = CREAABG) mg/dL 0.8-1.3 [id number] 11:42:00* Test Item Value Reference Range Interpretation Comments HEMOGLOBIN (test code = HGB/ABG) G/DL 12.5-16.9 [id number] 11:42:00* Test Item Value Reference Range Interpretation Comments HEMATOCRIT (test code = HCT/ABG) % 37.5-50.7 POC IONIZED [id number] 11:42:00* Test Item Value Reference Range Interpretation Comments POC IONIZED CALCIUM (test code = POCCA) MMOL/L 1.12-1.32 POC [id number] 11:42:00* Test Item Value Reference Range Interpretation Comments POC GLUCOSE (test code = POCGLU) MG/DL 70-110 POC ARTERIAL BLOOD [id number] 11:42:00* Test Item Value Reference Range Interpretation Comments POC ARTERIAL BLOOD GAS PH (test code = POCPHA) 7.348 7.35-7. 45 L POC ARTERIAL BLOOD GAS PCO2 (test code = MFTZMT6Q) 34.2 mmHg 35. 0-45 L POC TCO2 ARTERIAL (test code = POCTCO2) 19.8 POC ARTERIAL BLOOD GAS PO2 (test code = VOIPO3S) 320.4 mmHg 80-10 0.0 HH POC HCO3 ARTERIAL (test code = KDXCOK1A) 18.8 MMOL/L 22.0-26.0 L POC BASE EXCESS (test code = POCBEA) -6.2 MMOL/L -4.0-4.0 L POC O2 SATURATION (test code = POCO2S) 99.9 % 90-100 N [id number] 11:42:00* Test Item Value Reference Range Interpretation Comments SODIUM (test code = NA/ABG) 141 MEQ/L 134-147 N [id number] 11:42:00* Test Item Value Reference Range Interpretation Comments POTASSIUM (test code = K/ABG) 3.7 MEQ/L 3.4-5.0 N [id number] 11:42:00* Test Item Value Reference Range Interpretation Comments CHLORIDE (test code = CL/ABG) MEQ/L 100-108 CREATININE [id number] 11:42:00* Test Item Value Reference Range Interpretation Comments CREATININE ABG (test code = CREAABG) mg/dL 0.8-1.3 [id number] 11:42:00* Test Item Value Reference Range Interpretation Comments HEMOGLOBIN (test code = HGB/ABG) G/DL 12.5-16.9 [id number] 11:42:00* Test Item Value Reference Range Interpretation Comments HEMATOCRIT (test code = HCT/ABG) % 37.5-50.7 POC IONIZED [id number] 11:42:00* Test Item Value Reference Range Interpretation Comments POC IONIZED CALCIUM (test code = POCCA) 1.28 MMOL/L 1.12-1.32 N POC [id number] 11:42:00* Test Item Value Reference Range Interpretation Comments POC GLUCOSE (test code = POCGLU) MG/DL 70-110 POC ARTERIAL BLOOD [id number] 11:42:00* Test Item Value Reference Range Interpretation Comments POC ARTERIAL BLOOD GAS PH (test code = POCPHA) 7.348 7.35-7. 45 L POC ARTERIAL BLOOD GAS PCO2 (test code = CWFUGX8X) 34.2 mmHg 35. 0-45 L POC TCO2 ARTERIAL (test code = POCTCO2) 19.8 POC ARTERIAL BLOOD GAS PO2 (test code = YKHMY1J) 320.4 mmHg 80-10 0.0 HH POC HCO3 ARTERIAL (test code = TIVYVF2L) 18.8 MMOL/L 22.0-26.0 L POC BASE EXCESS (test code = POCBEA) -6.2 MMOL/L -4.0-4.0 L POC O2 SATURATION (test code = POCO2S) 99.9 % 90-100 N [id number] 11:42:00* Test Item Value Reference Range Interpretation Comments SODIUM (test code = NA/ABG) 141 MEQ/L 134-147 N [id number] 11:42:00* Test Item Value Reference Range Interpretation Comments POTASSIUM (test code = K/ABG) 3.7 MEQ/L 3.4-5.0 N [id number] 11:42:00* Test Item Value Reference Range Interpretation Comments CHLORIDE (test code = CL/ABG) MEQ/L 100-108 CREATININE [id number] 11:42:00* Test Item Value Reference Range Interpretation Comments CREATININE ABG (test code = CREAABG) mg/dL 0.8-1.3 [id number] 11:42:00* Test Item Value Reference Range Interpretation Comments HEMOGLOBIN (test code = HGB/ABG) G/DL 12.5-16.9 [id number] 11:42:00* Test Item Value Reference Range Interpretation Comments HEMATOCRIT (test code = HCT/ABG) % 37.5-50.7 POC IONIZED [id number] 11:42:00* Test Item Value Reference Range Interpretation Comments POC IONIZED CALCIUM (test code = POCCA) 1.28 MMOL/L 1.12-1.32 N POC [id number] 11:42:00* Test Item Value Reference Range Interpretation Comments POC GLUCOSE (test code = POCGLU) 226 MG/DL 70-110 H POC ARTERIAL BLOOD [id number] 11:42:00* Test Item Value Reference Range Interpretation Comments POC ARTERIAL BLOOD GAS PH (test code = POCPHA) 7.348 7.35-7. 45 L POC ARTERIAL BLOOD GAS PCO2 (test code = PLZKXS0F) 34.2 mmHg 35. 0-45 L POC TCO2 ARTERIAL (test code = POCTCO2) 19.8 POC ARTERIAL BLOOD GAS PO2 (test code = NOMBC1A) 320.4 mmHg 80-10 0.0 HH POC HCO3 ARTERIAL (test code = MRFMOO8B) 18.8 MMOL/L 22.0-26.0 L POC BASE EXCESS (test code = POCBEA) -6.2 MMOL/L -4.0-4.0 L POC O2 SATURATION (test code = POCO2S) 99.9 % 90-100 N [id number] 11:42:00* Test Item Value Reference Range Interpretation Comments SODIUM (test code = NA/ABG) 141 MEQ/L 134-147 N [id number] 11:42:00* Test Item Value Reference Range Interpretation Comments POTASSIUM (test code = K/ABG) 3.7 MEQ/L 3.4-5.0 N [id number] 11:42:00* Test Item Value Reference Range Interpretation Comments CHLORIDE (test code = CL/ABG) MEQ/L 100-108 CREATININE [id number] 11:42:00* Test Item Value Reference Range Interpretation Comments CREATININE ABG (test code = CREAABG) mg/dL 0.8-1.3 [id number] 11:42:00* Test Item Value Reference Range Interpretation Comments HEMOGLOBIN (test code = HGB/ABG) G/DL 12.5-16.9 [id number] 11:42:00* Test Item Value Reference Range Interpretation Comments HEMATOCRIT (test code = HCT/ABG) 25 % 37.5-50.7 L POC IONIZED [id number] 11:42:00* Test Item Value Reference Range Interpretation Comments POC IONIZED CALCIUM (test code = POCCA) 1.28 MMOL/L 1.12-1.32 N POC [id number] 11:42:00* Test Item Value Reference Range Interpretation Comments POC GLUCOSE (test code = POCGLU) 226 MG/DL 70-110 H POC ARTERIAL BLOOD [id number] 11:42:00* Test Item Value Reference Range Interpretation Comments POC ARTERIAL BLOOD GAS PH (test code = POCPHA) 7.348 7.35-7. 45 L POC ARTERIAL BLOOD GAS PCO2 (test code = DNEDAM4F) 34.2 mmHg 35. 0-45 L POC TCO2 ARTERIAL (test code = POCTCO2) 19.8 POC ARTERIAL BLOOD GAS PO2 (test code = LDGYD7N) 320.4 mmHg 80-10 0.0 HH POC HCO3 ARTERIAL (test code = UNCENT7Z) 18.8 MMOL/L 22.0-26.0 L POC BASE EXCESS (test code = POCBEA) -6.2 MMOL/L -4.0-4.0 L POC O2 SATURATION (test code = POCO2S) 99.9 % 90-100 N [id number] 11:42:00* Test Item Value Reference Range Interpretation Comments SODIUM (test code = NA/ABG) 141 MEQ/L 134-147 N [id number] 11:42:00* Test Item Value Reference Range Interpretation Comments POTASSIUM (test code = K/ABG) 3.7 MEQ/L 3.4-5.0 N [id number] 11:42:00* Test Item Value Reference Range Interpretation Comments CHLORIDE (test code = CL/ABG) MEQ/L 100-108 CREATININE [id number] 11:42:00* Test Item Value Reference Range Interpretation Comments CREATININE ABG (test code = CREAABG) mg/dL 0.8-1.3 [id number] 11:42:00* Test Item Value Reference Range Interpretation Comments HEMOGLOBIN (test code = HGB/ABG) 8.6 G/DL 12.5-16.9 L [id number] 11:42:00* Test Item Value Reference Range Interpretation Comments HEMATOCRIT (test code = HCT/ABG) 25 % 37.5-50.7 L POC IONIZED [id number] 11:42:00* Test Item Value Reference Range Interpretation Comments POC IONIZED CALCIUM (test code = POCCA) 1.28 MMOL/L 1.12-1.32 N POC [id number] 11:42:00* Test Item Value Reference Range Interpretation Comments POC GLUCOSE (test code = POCGLU) 226 MG/DL 70-110 H POC ARTERIAL BLOOD [id number] 11:42:00* Test Item Value Reference Range Interpretation Comments POC ARTERIAL BLOOD GAS PH (test code = POCPHA) 7.348 7.35-7. 45 L POC ARTERIAL BLOOD GAS PCO2 (test code = CIJMBV9K) 34.2 mmHg 35. 0-45 L POC TCO2 ARTERIAL (test code = POCTCO2) 19.8 POC ARTERIAL BLOOD GAS PO2 (test code = BQVWV2F) 320.4 mmHg 80-10 0.0 HH POC HCO3 ARTERIAL (test code = ZTENAG4V) 18.8 MMOL/L 22.0-26.0 L POC BASE EXCESS (test code = POCBEA) -6.2 MMOL/L -4.0-4.0 L POC O2 SATURATION (test code = POCO2S) 99.9 % 90-100 N [id number] 11:42:00* Test Item Value Reference Range Interpretation Comments SODIUM (test code = NA/ABG) 141 MEQ/L 134-147 N [id number] 11:42:00* Test Item Value Reference Range Interpretation Comments POTASSIUM (test code = K/ABG) 3.7 MEQ/L 3.4-5.0 N [id number] 11:42:00* Test Item Value Reference Range Interpretation Comments CHLORIDE (test code = CL/ABG) 109 MEQ/L 100-108 H CREATININE [id number] 11:42:00* Test Item Value Reference Range Interpretation Comments CREATININE ABG (test code = CREAABG) mg/dL 0.8-1.3 [id number] 11:42:00* Test Item Value Reference Range Interpretation Comments HEMOGLOBIN (test code = HGB/ABG) 8.6 G/DL 12.5-16.9 L [id number] 11:42:00* Test Item Value Reference Range Interpretation Comments HEMATOCRIT (test code = HCT/ABG) 25 % 37.5-50.7 L POC IONIZED [id number] 11:42:00* Test Item Value Reference Range Interpretation Comments POC IONIZED CALCIUM (test code = POCCA) 1.28 MMOL/L 1.12-1.32 N POC [id number] 11:42:00* Test Item Value Reference Range Interpretation Comments POC GLUCOSE (test code = POCGLU) 226 MG/DL 70-110 H POC ARTERIAL BLOOD [id number] 11:42:00* Test Item Value Reference Range Interpretation Comments POC ARTERIAL BLOOD GAS PH (test code = POCPHA) 7.348 7.35-7. 45 L POC ARTERIAL BLOOD GAS PCO2 (test code = IKMZMM9P) 34.2 mmHg 35. 0-45 L POC TCO2 ARTERIAL (test code = POCTCO2) 19.8 POC ARTERIAL BLOOD GAS PO2 (test code = WRDUC3N) 320.4 mmHg 80-10 0.0 HH POC HCO3 ARTERIAL (test code = GFAEKU4G) 18.8 MMOL/L 22.0-26.0 L POC BASE EXCESS (test code = POCBEA) -6.2 MMOL/L -4.0-4.0 L POC O2 SATURATION (test code = POCO2S) 99.9 % 90-100 N [id number] 11:42:00* Test Item Value Reference Range Interpretation Comments SODIUM (test code = NA/ABG) 141 MEQ/L 134-147 N [id number] 11:42:00* Test Item Value Reference Range Interpretation Comments POTASSIUM (test code = K/ABG) 3.7 MEQ/L 3.4-5.0 N [id number] 11:42:00* Test Item Value Reference Range Interpretation Comments CHLORIDE (test code = CL/ABG) 109 MEQ/L 100-108 H CREATININE [id number] 11:42:00* Test Item Value Reference Range Interpretation Comments CREATININE ABG (test code = CREAABG) 1.0 mg/dL 0.8-1.3 N [id number] 11:42:00* Test Item Value Reference Range Interpretation Comments HEMOGLOBIN (test code = HGB/ABG) 8.6 G/DL 12.5-16.9 L [id number] 11:42:00* Test Item Value Reference Range Interpretation Comments HEMATOCRIT (test code = HCT/ABG) 25 % 37.5-50.7 L POC IONIZED [id number] 11:42:00* Test Item Value Reference Range Interpretation Comments POC IONIZED CALCIUM (test code = POCCA) 1.28 MMOL/L 1.12-1.32 N POC [id number] 11:42:00* Test Item Value Reference Range Interpretation Comments POC GLUCOSE (test code = POCGLU) 226 MG/DL 70-110 H POC ARTERIAL BLOOD [id number] 11:02:00* Test Item Value Reference Range Interpretation Comments POC ARTERIAL BLOOD GAS PH (test code = POCPHA) 7.366 7.35-7. 45 N POC ARTERIAL BLOOD GAS PCO2 (test code = CWDLZZ7U) 31.3 mmHg 35. 0-45 L POC TCO2 ARTERIAL (test code = POCTCO2) 18.9 POC ARTERIAL BLOOD GAS PO2 (test code = LXNBE6J) 226.3 mmHg 80-10 0.0 HH POC HCO3 ARTERIAL (test code = QKGZYB5O) 18.0 MMOL/L 22.0-26.0 L POC BASE EXCESS (test code = POCBEA) -6.7 MMOL/L -4.0-4.0 L POC O2 SATURATION (test code = POCO2S) 99.8 % 90-100 N [id number] 11:02:00* Test Item Value Reference Range Interpretation Comments SODIUM (test code = NA/ABG) MEQ/L 134-147 [id number] 11:02:00* Test Item Value Reference Range Interpretation Comments POTASSIUM (test code = K/ABG) MEQ/L 3.4-5.0 [id number] 11:02:00* Test Item Value Reference Range Interpretation Comments CHLORIDE (test code = CL/ABG) MEQ/L 100-108 CREATININE [id number] 11:02:00* Test Item Value Reference Range Interpretation Comments CREATININE ABG (test code = CREAABG) mg/dL 0.8-1.3 [id number] 11:02:00* Test Item Value Reference Range Interpretation Comments HEMOGLOBIN (test code = HGB/ABG) G/DL 12.5-16.9 [id number] 11:02:00* Test Item Value Reference Range Interpretation Comments HEMATOCRIT (test code = HCT/ABG) % 37.5-50.7 POC IONIZED [id number] 11:02:00* Test Item Value Reference Range Interpretation Comments POC IONIZED CALCIUM (test code = POCCA) MMOL/L 1.12-1.32 POC [id number] 11:02:00* Test Item Value Reference Range Interpretation Comments POC GLUCOSE (test code = POCGLU) MG/DL 70-110 POC ARTERIAL BLOOD [id number] 11:02:00* Test Item Value Reference Range Interpretation Comments POC ARTERIAL BLOOD GAS PH (test code = POCPHA) 7.366 7.35-7. 45 N POC ARTERIAL BLOOD GAS PCO2 (test code = KIISAH2W) 31.3 mmHg 35. 0-45 L POC TCO2 ARTERIAL (test code = POCTCO2) 18.9 POC ARTERIAL BLOOD GAS PO2 (test code = TPFJG4B) 226.3 mmHg 80-10 0.0 HH POC HCO3 ARTERIAL (test code = ASNJJJ9T) 18.0 MMOL/L 22.0-26.0 L POC BASE EXCESS (test code = POCBEA) -6.7 MMOL/L -4.0-4.0 L POC O2 SATURATION (test code = POCO2S) 99.8 % 90-100 N [id number] 11:02:00* Test Item Value Reference Range Interpretation Comments SODIUM (test code = NA/ABG) 138 MEQ/L 134-147 N [id number] 11:02:00* Test Item Value Reference Range Interpretation Comments POTASSIUM (test code = K/ABG) MEQ/L 3.4-5.0 [id number] 11:02:00* Test Item Value Reference Range Interpretation Comments CHLORIDE (test code = CL/ABG) MEQ/L 100-108 CREATININE [id number] 11:02:00* Test Item Value Reference Range Interpretation Comments CREATININE ABG (test code = CREAABG) mg/dL 0.8-1.3 [id number] 11:02:00* Test Item Value Reference Range Interpretation Comments HEMOGLOBIN (test code = HGB/ABG) G/DL 12.5-16.9 [id number] 11:02:00* Test Item Value Reference Range Interpretation Comments HEMATOCRIT (test code = HCT/ABG) % 37.5-50.7 POC IONIZED [id number] 11:02:00* Test Item Value Reference Range Interpretation Comments POC IONIZED CALCIUM (test code = POCCA) MMOL/L 1.12-1.32 POC [id number] 11:02:00* Test Item Value Reference Range Interpretation Comments POC GLUCOSE (test code = POCGLU) MG/DL 70-110 POC ARTERIAL BLOOD [id number] 11:02:00* Test Item Value Reference Range Interpretation Comments POC ARTERIAL BLOOD GAS PH (test code = POCPHA) 7.366 7.35-7. 45 N POC ARTERIAL BLOOD GAS PCO2 (test code = QDRTXD8H) 31.3 mmHg 35. 0-45 L POC TCO2 ARTERIAL (test code = POCTCO2) 18.9 POC ARTERIAL BLOOD GAS PO2 (test code = LEWPG1N) 226.3 mmHg 80-10 0.0 HH POC HCO3 ARTERIAL (test code = VIGIME8J) 18.0 MMOL/L 22.0-26.0 L POC BASE EXCESS (test code = POCBEA) -6.7 MMOL/L -4.0-4.0 L POC O2 SATURATION (test code = POCO2S) 99.8 % 90-100 N [id number] 11:02:00* Test Item Value Reference Range Interpretation Comments SODIUM (test code = NA/ABG) 138 MEQ/L 134-147 N [id number] 11:02:00* Test Item Value Reference Range Interpretation Comments POTASSIUM (test code = K/ABG) 4.5 MEQ/L 3.4-5.0 N [id number] 11:02:00* Test Item Value Reference Range Interpretation Comments CHLORIDE (test code = CL/ABG) MEQ/L 100-108 CREATININE [id number] 11:02:00* Test Item Value Reference Range Interpretation Comments CREATININE ABG (test code = CREAABG) mg/dL 0.8-1.3 [id number] 11:02:00* Test Item Value Reference Range Interpretation Comments HEMOGLOBIN (test code = HGB/ABG) G/DL 12.5-16.9 [id number] 11:02:00* Test Item Value Reference Range Interpretation Comments HEMATOCRIT (test code = HCT/ABG) % 37.5-50.7 POC IONIZED [id number] 11:02:00* Test Item Value Reference Range Interpretation Comments POC IONIZED CALCIUM (test code = POCCA) MMOL/L 1.12-1.32 POC [id number] 11:02:00* Test Item Value Reference Range Interpretation Comments POC GLUCOSE (test code = POCGLU) MG/DL 70-110 POC ARTERIAL BLOOD [id number] 11:02:00* Test Item Value Reference Range Interpretation Comments POC ARTERIAL BLOOD GAS PH (test code = POCPHA) 7.366 7.35-7. 45 N POC ARTERIAL BLOOD GAS PCO2 (test code = CNGFDK8F) 31.3 mmHg 35. 0-45 L POC TCO2 ARTERIAL (test code = POCTCO2) 18.9 POC ARTERIAL BLOOD GAS PO2 (test code = XGJUI9P) 226.3 mmHg 80-10 0.0 HH POC HCO3 ARTERIAL (test code = EFYHAP7H) 18.0 MMOL/L 22.0-26.0 L POC BASE EXCESS (test code = POCBEA) -6.7 MMOL/L -4.0-4.0 L POC O2 SATURATION (test code = POCO2S) 99.8 % 90-100 N [id number] 11:02:00* Test Item Value Reference Range Interpretation Comments SODIUM (test code = NA/ABG) 138 MEQ/L 134-147 N [id number] 11:02:00* Test Item Value Reference Range Interpretation Comments POTASSIUM (test code = K/ABG) 4.5 MEQ/L 3.4-5.0 N [id number] 11:02:00* Test Item Value Reference Range Interpretation Comments CHLORIDE (test code = CL/ABG) MEQ/L 100-108 CREATININE [id number] 11:02:00* Test Item Value Reference Range Interpretation Comments CREATININE ABG (test code = CREAABG) mg/dL 0.8-1.3 [id number] 11:02:00* Test Item Value Reference Range Interpretation Comments HEMOGLOBIN (test code = HGB/ABG) G/DL 12.5-16.9 [id number] 11:02:00* Test Item Value Reference Range Interpretation Comments HEMATOCRIT (test code = HCT/ABG) % 37.5-50.7 POC IONIZED [id number] 11:02:00* Test Item Value Reference Range Interpretation Comments POC IONIZED CALCIUM (test code = POCCA) 1.16 MMOL/L 1.12-1.32 N POC [id number] 11:02:00* Test Item Value Reference Range Interpretation Comments POC GLUCOSE (test code = POCGLU) MG/DL 70-110 POC ARTERIAL BLOOD [id number] 11:02:00* Test Item Value Reference Range Interpretation Comments POC ARTERIAL BLOOD GAS PH (test code = POCPHA) 7.366 7.35-7. 45 N POC ARTERIAL BLOOD GAS PCO2 (test code = RVMJBO7E) 31.3 mmHg 35. 0-45 L POC TCO2 ARTERIAL (test code = POCTCO2) 18.9 POC ARTERIAL BLOOD GAS PO2 (test code = MLEEK2H) 226.3 mmHg 80-10 0.0 HH POC HCO3 ARTERIAL (test code = VXIDAM4C) 18.0 MMOL/L 22.0-26.0 L POC BASE EXCESS (test code = POCBEA) -6.7 MMOL/L -4.0-4.0 L POC O2 SATURATION (test code = POCO2S) 99.8 % 90-100 N [id number] 11:02:00* Test Item Value Reference Range Interpretation Comments SODIUM (test code = NA/ABG) 138 MEQ/L 134-147 N [id number] 11:02:00* Test Item Value Reference Range Interpretation Comments POTASSIUM (test code = K/ABG) 4.5 MEQ/L 3.4-5.0 N [id number] 11:02:00* Test Item Value Reference Range Interpretation Comments CHLORIDE (test code = CL/ABG) MEQ/L 100-108 CREATININE [id number] 11:02:00* Test Item Value Reference Range Interpretation Comments CREATININE ABG (test code = CREAABG) mg/dL 0.8-1.3 [id number] 11:02:00* Test Item Value Reference Range Interpretation Comments HEMOGLOBIN (test code = HGB/ABG) G/DL 12.5-16.9 [id number] 11:02:00* Test Item Value Reference Range Interpretation Comments HEMATOCRIT (test code = HCT/ABG) % 37.5-50.7 POC IONIZED [id number] 11:02:00* Test Item Value Reference Range Interpretation Comments POC IONIZED CALCIUM (test code = POCCA) 1.16 MMOL/L 1.12-1.32 N POC [id number] 11:02:00* Test Item Value Reference Range Interpretation Comments POC GLUCOSE (test code = POCGLU) 240 MG/DL 70-110 H POC ARTERIAL BLOOD [id number] 11:02:00* Test Item Value Reference Range Interpretation Comments POC ARTERIAL BLOOD GAS PH (test code = POCPHA) 7.366 7.35-7. 45 N POC ARTERIAL BLOOD GAS PCO2 (test code = EQOQJO6C) 31.3 mmHg 35. 0-45 L POC TCO2 ARTERIAL (test code = POCTCO2) 18.9 POC ARTERIAL BLOOD GAS PO2 (test code = OMCGI5I) 226.3 mmHg 80-10 0.0 HH POC HCO3 ARTERIAL (test code = QBWUSC3X) 18.0 MMOL/L 22.0-26.0 L POC BASE EXCESS (test code = POCBEA) -6.7 MMOL/L -4.0-4.0 L POC O2 SATURATION (test code = POCO2S) 99.8 % 90-100 N [id number] 11:02:00* Test Item Value Reference Range Interpretation Comments SODIUM (test code = NA/ABG) 138 MEQ/L 134-147 N [id number] 11:02:00* Test Item Value Reference Range Interpretation Comments POTASSIUM (test code = K/ABG) 4.5 MEQ/L 3.4-5.0 N [id number] 11:02:00* Test Item Value Reference Range Interpretation Comments CHLORIDE (test code = CL/ABG) MEQ/L 100-108 CREATININE [id number] 11:02:00* Test Item Value Reference Range Interpretation Comments CREATININE ABG (test code = CREAABG) mg/dL 0.8-1.3 [id number] 11:02:00* Test Item Value Reference Range Interpretation Comments HEMOGLOBIN (test code = HGB/ABG) G/DL 12.5-16.9 [id number] 11:02:00* Test Item Value Reference Range Interpretation Comments HEMATOCRIT (test code = HCT/ABG) 22 % 37.5-50.7 L POC IONIZED [id number] 11:02:00* Test Item Value Reference Range Interpretation Comments POC IONIZED CALCIUM (test code = POCCA) 1.16 MMOL/L 1.12-1.32 N POC [id number] 11:02:00* Test Item Value Reference Range Interpretation Comments POC GLUCOSE (test code = POCGLU) 240 MG/DL 70-110 H POC ARTERIAL BLOOD [id number] 11:02:00* Test Item Value Reference Range Interpretation Comments POC ARTERIAL BLOOD GAS PH (test code = POCPHA) 7.366 7.35-7. 45 N POC ARTERIAL BLOOD GAS PCO2 (test code = ZJUERZ2L) 31.3 mmHg 35. 0-45 L POC TCO2 ARTERIAL (test code = POCTCO2) 18.9 POC ARTERIAL BLOOD GAS PO2 (test code = XGTFC4R) 226.3 mmHg 80-10 0.0 HH POC HCO3 ARTERIAL (test code = MCLGJC1P) 18.0 MMOL/L 22.0-26.0 L POC BASE EXCESS (test code = POCBEA) -6.7 MMOL/L -4.0-4.0 L POC O2 SATURATION (test code = POCO2S) 99.8 % 90-100 N [id number] 11:02:00* Test Item Value Reference Range Interpretation Comments SODIUM (test code = NA/ABG) 138 MEQ/L 134-147 N [id number] 11:02:00* Test Item Value Reference Range Interpretation Comments POTASSIUM (test code = K/ABG) 4.5 MEQ/L 3.4-5.0 N [id number] 11:02:00* Test Item Value Reference Range Interpretation Comments CHLORIDE (test code = CL/ABG) MEQ/L 100-108 CREATININE [id number] 11:02:00* Test Item Value Reference Range Interpretation Comments CREATININE ABG (test code = CREAABG) mg/dL 0.8-1.3 [id number] 11:02:00* Test Item Value Reference Range Interpretation Comments HEMOGLOBIN (test code = HGB/ABG) 7.6 G/DL 12.5-16.9 L [id number] 11:02:00* Test Item Value Reference Range Interpretation Comments HEMATOCRIT (test code = HCT/ABG) 22 % 37.5-50.7 L POC IONIZED [id number] 11:02:00* Test Item Value Reference Range Interpretation Comments POC IONIZED CALCIUM (test code = POCCA) 1.16 MMOL/L 1.12-1.32 N POC [id number] 11:02:00* Test Item Value Reference Range Interpretation Comments POC GLUCOSE (test code = POCGLU) 240 MG/DL 70-110 H POC ARTERIAL BLOOD [id number] 11:02:00* Test Item Value Reference Range Interpretation Comments POC ARTERIAL BLOOD GAS PH (test code = POCPHA) 7.366 7.35-7. 45 N POC ARTERIAL BLOOD GAS PCO2 (test code = NGJUBO5W) 31.3 mmHg 35. 0-45 L POC TCO2 ARTERIAL (test code = POCTCO2) 18.9 POC ARTERIAL BLOOD GAS PO2 (test code = SXHXX7A) 226.3 mmHg 80-10 0.0 HH POC HCO3 ARTERIAL (test code = WVDLJV7W) 18.0 MMOL/L 22.0-26.0 L POC BASE EXCESS (test code = POCBEA) -6.7 MMOL/L -4.0-4.0 L POC O2 SATURATION (test code = POCO2S) 99.8 % 90-100 N [id number] 11:02:00* Test Item Value Reference Range Interpretation Comments SODIUM (test code = NA/ABG) 138 MEQ/L 134-147 N [id number] 11:02:00* Test Item Value Reference Range Interpretation Comments POTASSIUM (test code = K/ABG) 4.5 MEQ/L 3.4-5.0 N [id number] 11:02:00* Test Item Value Reference Range Interpretation Comments CHLORIDE (test code = CL/ABG) 104 MEQ/L 100-108 N CREATININE [id number] 11:02:00* Test Item Value Reference Range Interpretation Comments CREATININE ABG (test code = CREAABG) mg/dL 0.8-1.3 [id number] 11:02:00* Test Item Value Reference Range Interpretation Comments HEMOGLOBIN (test code = HGB/ABG) 7.6 G/DL 12.5-16.9 L [id number] 11:02:00* Test Item Value Reference Range Interpretation Comments HEMATOCRIT (test code = HCT/ABG) 22 % 37.5-50.7 L POC IONIZED [id number] 11:02:00* Test Item Value Reference Range Interpretation Comments POC IONIZED CALCIUM (test code = POCCA) 1.16 MMOL/L 1.12-1.32 N POC [id number] 11:02:00* Test Item Value Reference Range Interpretation Comments POC GLUCOSE (test code = POCGLU) 240 MG/DL 70-110 H POC ARTERIAL BLOOD [id number] 11:02:00* Test Item Value Reference Range Interpretation Comments POC ARTERIAL BLOOD GAS PH (test code = POCPHA) 7.366 7.35-7. 45 N POC ARTERIAL BLOOD GAS PCO2 (test code = RKXQHC9Z) 31.3 mmHg 35. 0-45 L POC TCO2 ARTERIAL (test code = POCTCO2) 18.9 POC ARTERIAL BLOOD GAS PO2 (test code = FCHIX3K) 226.3 mmHg 80-10 0.0 HH POC HCO3 ARTERIAL (test code = RYNJZY2Z) 18.0 MMOL/L 22.0-26.0 L POC BASE EXCESS (test code = POCBEA) -6.7 MMOL/L -4.0-4.0 L POC O2 SATURATION (test code = POCO2S) 99.8 % 90-100 N [id number] 11:02:00* Test Item Value Reference Range Interpretation Comments SODIUM (test code = NA/ABG) 138 MEQ/L 134-147 N [id number] 11:02:00* Test Item Value Reference Range Interpretation Comments POTASSIUM (test code = K/ABG) 4.5 MEQ/L 3.4-5.0 N [id number] 11:02:00* Test Item Value Reference Range Interpretation Comments CHLORIDE (test code = CL/ABG) 104 MEQ/L 100-108 N CREATININE [id number] 11:02:00* Test Item Value Reference Range Interpretation Comments CREATININE ABG (test code = CREAABG) 1.0 mg/dL 0.8-1.3 N [id number] 11:02:00* Test Item Value Reference Range Interpretation Comments HEMOGLOBIN (test code = HGB/ABG) 7.6 G/DL 12.5-16.9 L [id number] 11:02:00* Test Item Value Reference Range Interpretation Comments HEMATOCRIT (test code = HCT/ABG) 22 % 37.5-50.7 L POC IONIZED [id number] 11:02:00* Test Item Value Reference Range Interpretation Comments POC IONIZED CALCIUM (test code = POCCA) 1.16 MMOL/L 1.12-1.32 N POC [id number] 11:02:00* Test Item Value Reference Range Interpretation Comments POC GLUCOSE (test code = POCGLU) 240 MG/DL 70-110 H POC ARTERIAL BLOOD [id number] 10:28:00* Test Item Value Reference Range Interpretation Comments POC ARTERIAL BLOOD GAS PH (test code = POCPHA) 7.433 7.35-7. 45 N POC ARTERIAL BLOOD GAS PCO2 (test code = WGVDGV5K) 32.7 mmHg 35. 0-45 L POC TCO2 ARTERIAL (test code = POCTCO2) 22.8 POC ARTERIAL BLOOD GAS PO2 (test code = HGGLA5N) 422.1 mmHg 80-10 0.0 HH POC HCO3 ARTERIAL (test code = RSCWGE3P) 21.8 MMOL/L 22.0-26.0 L POC BASE EXCESS (test code = POCBEA) -2.2 MMOL/L -4.0-4.0 N POC O2 SATURATION (test code = POCO2S) 100.0 % 90-100 N [id number] 10:28:00* Test Item Value Reference Range Interpretation Comments SODIUM (test code = NA/ABG) MEQ/L 134-147 [id number] 10:28:00* Test Item Value Reference Range Interpretation Comments POTASSIUM (test code = K/ABG) MEQ/L 3.4-5.0 [id number] 10:28:00* Test Item Value Reference Range Interpretation Comments CHLORIDE (test code = CL/ABG) MEQ/L 100-108 CREATININE [id number] 10:28:00* Test Item Value Reference Range Interpretation Comments CREATININE ABG (test code = CREAABG) mg/dL 0.8-1.3 [id number] 10:28:00* Test Item Value Reference Range Interpretation Comments HEMOGLOBIN (test code = HGB/ABG) G/DL 12.5-16.9 [id number] 10:28:00* Test Item Value Reference Range Interpretation Comments HEMATOCRIT (test code = HCT/ABG) % 37.5-50.7 POC IONIZED [id number] 10:28:00* Test Item Value Reference Range Interpretation Comments POC IONIZED CALCIUM (test code = POCCA) MMOL/L 1.12-1.32 POC [id number] 10:28:00* Test Item Value Reference Range Interpretation Comments POC GLUCOSE (test code = POCGLU) MG/DL 70-110 POC ARTERIAL BLOOD [id number] 10:28:00* Test Item Value Reference Range Interpretation Comments POC ARTERIAL BLOOD GAS PH (test code = POCPHA) 7.433 7.35-7. 45 N POC ARTERIAL BLOOD GAS PCO2 (test code = KFEPKC6J) 32.7 mmHg 35. 0-45 L POC TCO2 ARTERIAL (test code = POCTCO2) 22.8 POC ARTERIAL BLOOD GAS PO2 (test code = BRYRQ6Z) 422.1 mmHg 80-10 0.0 HH POC HCO3 ARTERIAL (test code = CPCKVE0S) 21.8 MMOL/L 22.0-26.0 L POC BASE EXCESS (test code = POCBEA) -2.2 MMOL/L -4.0-4.0 N POC O2 SATURATION (test code = POCO2S) 100.0 % 90-100 N [id number] 10:28:00* Test Item Value Reference Range Interpretation Comments SODIUM (test code = NA/ABG) 138 MEQ/L 134-147 N [id number] 10:28:00* Test Item Value Reference Range Interpretation Comments POTASSIUM (test code = K/ABG) MEQ/L 3.4-5.0 [id number] 10:28:00* Test Item Value Reference Range Interpretation Comments CHLORIDE (test code = CL/ABG) MEQ/L 100-108 CREATININE [id number] 10:28:00* Test Item Value Reference Range Interpretation Comments CREATININE ABG (test code = CREAABG) mg/dL 0.8-1.3 [id number] 10:28:00* Test Item Value Reference Range Interpretation Comments HEMOGLOBIN (test code = HGB/ABG) G/DL 12.5-16.9 [id number] 10:28:00* Test Item Value Reference Range Interpretation Comments HEMATOCRIT (test code = HCT/ABG) % 37.5-50.7 POC IONIZED [id number] 10:28:00* Test Item Value Reference Range Interpretation Comments POC IONIZED CALCIUM (test code = POCCA) MMOL/L 1.12-1.32 POC [id number] 10:28:00* Test Item Value Reference Range Interpretation Comments POC GLUCOSE (test code = POCGLU) MG/DL 70-110 POC ARTERIAL BLOOD [id number] 10:28:00* Test Item Value Reference Range Interpretation Comments POC ARTERIAL BLOOD GAS PH (test code = POCPHA) 7.433 7.35-7. 45 N POC ARTERIAL BLOOD GAS PCO2 (test code = TYYPZV6O) 32.7 mmHg 35. 0-45 L POC TCO2 ARTERIAL (test code = POCTCO2) 22.8 POC ARTERIAL BLOOD GAS PO2 (test code = NFSTB3N) 422.1 mmHg 80-10 0.0 HH POC HCO3 ARTERIAL (test code = SEBRYH0C) 21.8 MMOL/L 22.0-26.0 L POC BASE EXCESS (test code = POCBEA) -2.2 MMOL/L -4.0-4.0 N POC O2 SATURATION (test code = POCO2S) 100.0 % 90-100 N [id number] 10:28:00* Test Item Value Reference Range Interpretation Comments SODIUM (test code = NA/ABG) 138 MEQ/L 134-147 N [id number] 10:28:00* Test Item Value Reference Range Interpretation Comments POTASSIUM (test code = K/ABG) 4.3 MEQ/L 3.4-5.0 N [id number] 10:28:00* Test Item Value Reference Range Interpretation Comments CHLORIDE (test code = CL/ABG) MEQ/L 100-108 CREATININE [id number] 10:28:00* Test Item Value Reference Range Interpretation Comments CREATININE ABG (test code = CREAABG) mg/dL 0.8-1.3 [id number] 10:28:00* Test Item Value Reference Range Interpretation Comments HEMOGLOBIN (test code = HGB/ABG) G/DL 12.5-16.9 [id number] 10:28:00* Test Item Value Reference Range Interpretation Comments HEMATOCRIT (test code = HCT/ABG) % 37.5-50.7 POC IONIZED [id number] 10:28:00* Test Item Value Reference Range Interpretation Comments POC IONIZED CALCIUM (test code = POCCA) MMOL/L 1.12-1.32 POC [id number] 10:28:00* Test Item Value Reference Range Interpretation Comments POC GLUCOSE (test code = POCGLU) MG/DL 70-110 POC ARTERIAL BLOOD [id number] 10:28:00* Test Item Value Reference Range Interpretation Comments POC ARTERIAL BLOOD GAS PH (test code = POCPHA) 7.433 7.35-7. 45 N POC ARTERIAL BLOOD GAS PCO2 (test code = XKOXQE2M) 32.7 mmHg 35. 0-45 L POC TCO2 ARTERIAL (test code = POCTCO2) 22.8 POC ARTERIAL BLOOD GAS PO2 (test code = UGOGQ9E) 422.1 mmHg 80-10 0.0 HH POC HCO3 ARTERIAL (test code = UOGAOX9E) 21.8 MMOL/L 22.0-26.0 L POC BASE EXCESS (test code = POCBEA) -2.2 MMOL/L -4.0-4.0 N POC O2 SATURATION (test code = POCO2S) 100.0 % 90-100 N [id number] 10:28:00* Test Item Value Reference Range Interpretation Comments SODIUM (test code = NA/ABG) 138 MEQ/L 134-147 N [id number] 10:28:00* Test Item Value Reference Range Interpretation Comments POTASSIUM (test code = K/ABG) 4.3 MEQ/L 3.4-5.0 N [id number] 10:28:00* Test Item Value Reference Range Interpretation Comments CHLORIDE (test code = CL/ABG) MEQ/L 100-108 CREATININE [id number] 10:28:00* Test Item Value Reference Range Interpretation Comments CREATININE ABG (test code = CREAABG) mg/dL 0.8-1.3 [id number] 10:28:00* Test Item Value Reference Range Interpretation Comments HEMOGLOBIN (test code = HGB/ABG) G/DL 12.5-16.9 [id number] 10:28:00* Test Item Value Reference Range Interpretation Comments HEMATOCRIT (test code = HCT/ABG) % 37.5-50.7 POC IONIZED [id number] 10:28:00* Test Item Value Reference Range Interpretation Comments POC IONIZED CALCIUM (test code = POCCA) 1.16 MMOL/L 1.12-1.32 N POC [id number] 10:28:00* Test Item Value Reference Range Interpretation Comments POC GLUCOSE (test code = POCGLU) MG/DL 70-110 POC ARTERIAL BLOOD [id number] 10:28:00* Test Item Value Reference Range Interpretation Comments POC ARTERIAL BLOOD GAS PH (test code = POCPHA) 7.433 7.35-7. 45 N POC ARTERIAL BLOOD GAS PCO2 (test code = DUFGRJ5U) 32.7 mmHg 35. 0-45 L POC TCO2 ARTERIAL (test code = POCTCO2) 22.8 POC ARTERIAL BLOOD GAS PO2 (test code = NHZEY9M) 422.1 mmHg 80-10 0.0 HH POC HCO3 ARTERIAL (test code = HMFDPJ4Z) 21.8 MMOL/L 22.0-26.0 L POC BASE EXCESS (test code = POCBEA) -2.2 MMOL/L -4.0-4.0 N POC O2 SATURATION (test code = POCO2S) 100.0 % 90-100 N [id number] 10:28:00* Test Item Value Reference Range Interpretation Comments SODIUM (test code = NA/ABG) 138 MEQ/L 134-147 N [id number] 10:28:00* Test Item Value Reference Range Interpretation Comments POTASSIUM (test code = K/ABG) 4.3 MEQ/L 3.4-5.0 N [id number] 10:28:00* Test Item Value Reference Range Interpretation Comments CHLORIDE (test code = CL/ABG) MEQ/L 100-108 CREATININE [id number] 10:28:00* Test Item Value Reference Range Interpretation Comments CREATININE ABG (test code = CREAABG) mg/dL 0.8-1.3 [id number] 10:28:00* Test Item Value Reference Range Interpretation Comments HEMOGLOBIN (test code = HGB/ABG) G/DL 12.5-16.9 [id number] 10:28:00* Test Item Value Reference Range Interpretation Comments HEMATOCRIT (test code = HCT/ABG) % 37.5-50.7 POC IONIZED [id number] 10:28:00* Test Item Value Reference Range Interpretation Comments POC IONIZED CALCIUM (test code = POCCA) 1.16 MMOL/L 1.12-1.32 N POC [id number] 10:28:00* Test Item Value Reference Range Interpretation Comments POC GLUCOSE (test code = POCGLU) 186 MG/DL 70-110 H POC ARTERIAL BLOOD [id number] 10:28:00* Test Item Value Reference Range Interpretation Comments POC ARTERIAL BLOOD GAS PH (test code = POCPHA) 7.433 7.35-7. 45 N POC ARTERIAL BLOOD GAS PCO2 (test code = DEEIAS9L) 32.7 mmHg 35. 0-45 L POC TCO2 ARTERIAL (test code = POCTCO2) 22.8 POC ARTERIAL BLOOD GAS PO2 (test code = VLNDI1S) 422.1 mmHg 80-10 0.0 HH POC HCO3 ARTERIAL (test code = APONAK2H) 21.8 MMOL/L 22.0-26.0 L POC BASE EXCESS (test code = POCBEA) -2.2 MMOL/L -4.0-4.0 N POC O2 SATURATION (test code = POCO2S) 100.0 % 90-100 N [id number] 10:28:00* Test Item Value Reference Range Interpretation Comments SODIUM (test code = NA/ABG) 138 MEQ/L 134-147 N [id number] 10:28:00* Test Item Value Reference Range Interpretation Comments POTASSIUM (test code = K/ABG) 4.3 MEQ/L 3.4-5.0 N [id number] 10:28:00* Test Item Value Reference Range Interpretation Comments CHLORIDE (test code = CL/ABG) MEQ/L 100-108 CREATININE [id number] 10:28:00* Test Item Value Reference Range Interpretation Comments CREATININE ABG (test code = CREAABG) mg/dL 0.8-1.3 [id number] 10:28:00* Test Item Value Reference Range Interpretation Comments HEMOGLOBIN (test code = HGB/ABG) G/DL 12.5-16.9 [id number] 10:28:00* Test Item Value Reference Range Interpretation Comments HEMATOCRIT (test code = HCT/ABG) 20 % 37.5-50.7 L POC IONIZED [id number] 10:28:00* Test Item Value Reference Range Interpretation Comments POC IONIZED CALCIUM (test code = POCCA) 1.16 MMOL/L 1.12-1.32 N POC [id number] 10:28:00* Test Item Value Reference Range Interpretation Comments POC GLUCOSE (test code = POCGLU) 186 MG/DL 70-110 H POC ARTERIAL BLOOD [id number] 10:28:00* Test Item Value Reference Range Interpretation Comments POC ARTERIAL BLOOD GAS PH (test code = POCPHA) 7.433 7.35-7. 45 N POC ARTERIAL BLOOD GAS PCO2 (test code = EIMVHA6I) 32.7 mmHg 35. 0-45 L POC TCO2 ARTERIAL (test code = POCTCO2) 22.8 POC ARTERIAL BLOOD GAS PO2 (test code = BISXY5M) 422.1 mmHg 80-10 0.0 HH POC HCO3 ARTERIAL (test code = VGCTPR0B) 21.8 MMOL/L 22.0-26.0 L POC BASE EXCESS (test code = POCBEA) -2.2 MMOL/L -4.0-4.0 N POC O2 SATURATION (test code = POCO2S) 100.0 % 90-100 N [id number] 10:28:00* Test Item Value Reference Range Interpretation Comments SODIUM (test code = NA/ABG) 138 MEQ/L 134-147 N [id number] 10:28:00* Test Item Value Reference Range Interpretation Comments POTASSIUM (test code = K/ABG) 4.3 MEQ/L 3.4-5.0 N [id number] 10:28:00* Test Item Value Reference Range Interpretation Comments CHLORIDE (test code = CL/ABG) MEQ/L 100-108 CREATININE [id number] 10:28:00* Test Item Value Reference Range Interpretation Comments CREATININE ABG (test code = CREAABG) mg/dL 0.8-1.3 [id number] 10:28:00* Test Item Value Reference Range Interpretation Comments HEMOGLOBIN (test code = HGB/ABG) 6.7 G/DL 12.5-16.9 L [id number] 10:28:00* Test Item Value Reference Range Interpretation Comments HEMATOCRIT (test code = HCT/ABG) 20 % 37.5-50.7 L POC IONIZED [id number] 10:28:00* Test Item Value Reference Range Interpretation Comments POC IONIZED CALCIUM (test code = POCCA) 1.16 MMOL/L 1.12-1.32 N POC [id number] 10:28:00* Test Item Value Reference Range Interpretation Comments POC GLUCOSE (test code = POCGLU) 186 MG/DL 70-110 H POC ARTERIAL BLOOD [id number] 10:28:00* Test Item Value Reference Range Interpretation Comments POC ARTERIAL BLOOD GAS PH (test code = POCPHA) 7.433 7.35-7. 45 N POC ARTERIAL BLOOD GAS PCO2 (test code = QAEUYL5V) 32.7 mmHg 35. 0-45 L POC TCO2 ARTERIAL (test code = POCTCO2) 22.8 POC ARTERIAL BLOOD GAS PO2 (test code = THUAQ5D) 422.1 mmHg 80-10 0.0 HH POC HCO3 ARTERIAL (test code = TKVTQX6K) 21.8 MMOL/L 22.0-26.0 L POC BASE EXCESS (test code = POCBEA) -2.2 MMOL/L -4.0-4.0 N POC O2 SATURATION (test code = POCO2S) 100.0 % 90-100 N [id number] 10:28:00* Test Item Value Reference Range Interpretation Comments SODIUM (test code = NA/ABG) 138 MEQ/L 134-147 N [id number] 10:28:00* Test Item Value Reference Range Interpretation Comments POTASSIUM (test code = K/ABG) 4.3 MEQ/L 3.4-5.0 N [id number] 10:28:00* Test Item Value Reference Range Interpretation Comments CHLORIDE (test code = CL/ABG) 106 MEQ/L 100-108 N CREATININE [id number] 10:28:00* Test Item Value Reference Range Interpretation Comments CREATININE ABG (test code = CREAABG) mg/dL 0.8-1.3 [id number] 10:28:00* Test Item Value Reference Range Interpretation Comments HEMOGLOBIN (test code = HGB/ABG) 6.7 G/DL 12.5-16.9 L [id number] 10:28:00* Test Item Value Reference Range Interpretation Comments HEMATOCRIT (test code = HCT/ABG) 20 % 37.5-50.7 L POC IONIZED [id number] 10:28:00* Test Item Value Reference Range Interpretation Comments POC IONIZED CALCIUM (test code = POCCA) 1.16 MMOL/L 1.12-1.32 N POC [id number] 10:28:00* Test Item Value Reference Range Interpretation Comments POC GLUCOSE (test code = POCGLU) 186 MG/DL 70-110 H POC ARTERIAL BLOOD [id number] 10:28:00* Test Item Value Reference Range Interpretation Comments POC ARTERIAL BLOOD GAS PH (test code = POCPHA) 7.433 7.35-7. 45 N POC ARTERIAL BLOOD GAS PCO2 (test code = XDOGXE0S) 32.7 mmHg 35. 0-45 L POC TCO2 ARTERIAL (test code = POCTCO2) 22.8 POC ARTERIAL BLOOD GAS PO2 (test code = QNSMZ6L) 422.1 mmHg 80-10 0.0 HH POC HCO3 ARTERIAL (test code = YPWCKY5W) 21.8 MMOL/L 22.0-26.0 L POC BASE EXCESS (test code = POCBEA) -2.2 MMOL/L -4.0-4.0 N POC O2 SATURATION (test code = POCO2S) 100.0 % 90-100 N [id number] 10:28:00* Test Item Value Reference Range Interpretation Comments SODIUM (test code = NA/ABG) 138 MEQ/L 134-147 N [id number] 10:28:00* Test Item Value Reference Range Interpretation Comments POTASSIUM (test code = K/ABG) 4.3 MEQ/L 3.4-5.0 N [id number] 10:28:00* Test Item Value Reference Range Interpretation Comments CHLORIDE (test code = CL/ABG) 106 MEQ/L 100-108 N CREATININE [id number] 10:28:00* Test Item Value Reference Range Interpretation Comments CREATININE ABG (test code = CREAABG) 0.9 mg/dL 0.8-1.3 N [id number] 10:28:00* Test Item Value Reference Range Interpretation Comments HEMOGLOBIN (test code = HGB/ABG) 6.7 G/DL 12.5-16.9 L [id number] 10:28:00* Test Item Value Reference Range Interpretation Comments HEMATOCRIT (test code = HCT/ABG) 20 % 37.5-50.7 L POC IONIZED [id number] 10:28:00* Test Item Value Reference Range Interpretation Comments POC IONIZED CALCIUM (test code = POCCA) 1.16 MMOL/L 1.12-1.32 N POC [id number] 10:28:00* Test Item Value Reference Range Interpretation Comments POC GLUCOSE (test code = POCGLU) 186 MG/DL 70-110 H POC ARTERIAL BLOOD [id number] 10:00:00* Test Item Value Reference Range Interpretation Comments POC ARTERIAL BLOOD GAS PH (test code = POCPHA) 7.412 7.35-7. 45 N POC ARTERIAL BLOOD GAS PCO2 (test code = RPMJRO1C) 38.5 mmHg 35. 0-45 N POC TCO2 ARTERIAL (test code = POCTCO2) 25.7 POC ARTERIAL BLOOD GAS PO2 (test code = QRUNF3P) 425.2 mmHg 80-10 0.0 HH POC HCO3 ARTERIAL (test code = AVKIKN3W) 24.5 MMOL/L 22.0-26.0 N POC BASE EXCESS (test code = POCBEA) -0.1 MMOL/L -4.0-4.0 N POC O2 SATURATION (test code = POCO2S) 100.0 % 90-100 N [id number] 10:00:00* Test Item Value Reference Range Interpretation Comments SODIUM (test code = NA/ABG) MEQ/L 134-147 [id number] 10:00:00* Test Item Value Reference Range Interpretation Comments POTASSIUM (test code = K/ABG) MEQ/L 3.4-5.0 [id number] 10:00:00* Test Item Value Reference Range Interpretation Comments CHLORIDE (test code = CL/ABG) MEQ/L 100-108 CREATININE [id number] 10:00:00* Test Item Value Reference Range Interpretation Comments CREATININE ABG (test code = CREAABG) mg/dL 0.8-1.3 [id number] 10:00:00* Test Item Value Reference Range Interpretation Comments HEMOGLOBIN (test code = HGB/ABG) G/DL 12.5-16.9 [id number] 10:00:00* Test Item Value Reference Range Interpretation Comments HEMATOCRIT (test code = HCT/ABG) % 37.5-50.7 POC IONIZED [id number] 10:00:00* Test Item Value Reference Range Interpretation Comments POC IONIZED CALCIUM (test code = POCCA) MMOL/L 1.12-1.32 POC [id number] 10:00:00* Test Item Value Reference Range Interpretation Comments POC GLUCOSE (test code = POCGLU) MG/DL 70-110 POC ARTERIAL BLOOD [id number] 10:00:00* Test Item Value Reference Range Interpretation Comments POC ARTERIAL BLOOD GAS PH (test code = POCPHA) 7.412 7.35-7. 45 N POC ARTERIAL BLOOD GAS PCO2 (test code = YMVCEO2Q) 38.5 mmHg 35. 0-45 N POC TCO2 ARTERIAL (test code = POCTCO2) 25.7 POC ARTERIAL BLOOD GAS PO2 (test code = CJJRO9G) 425.2 mmHg 80-10 0.0 HH POC HCO3 ARTERIAL (test code = XQCRGA9R) 24.5 MMOL/L 22.0-26.0 N POC BASE EXCESS (test code = POCBEA) -0.1 MMOL/L -4.0-4.0 N POC O2 SATURATION (test code = POCO2S) 100.0 % 90-100 N [id number] 10:00:00* Test Item Value Reference Range Interpretation Comments SODIUM (test code = NA/ABG) 138 MEQ/L 134-147 N [id number] 10:00:00* Test Item Value Reference Range Interpretation Comments POTASSIUM (test code = K/ABG) MEQ/L 3.4-5.0 [id number] 10:00:00* Test Item Value Reference Range Interpretation Comments CHLORIDE (test code = CL/ABG) MEQ/L 100-108 CREATININE [id number] 10:00:00* Test Item Value Reference Range Interpretation Comments CREATININE ABG (test code = CREAABG) mg/dL 0.8-1.3 [id number] 10:00:00* Test Item Value Reference Range Interpretation Comments HEMOGLOBIN (test code = HGB/ABG) G/DL 12.5-16.9 [id number] 10:00:00* Test Item Value Reference Range Interpretation Comments HEMATOCRIT (test code = HCT/ABG) % 37.5-50.7 POC IONIZED [id number] 10:00:00* Test Item Value Reference Range Interpretation Comments POC IONIZED CALCIUM (test code = POCCA) MMOL/L 1.12-1.32 POC [id number] 10:00:00* Test Item Value Reference Range Interpretation Comments POC GLUCOSE (test code = POCGLU) MG/DL 70-110 POC ARTERIAL BLOOD [id number] 10:00:00* Test Item Value Reference Range Interpretation Comments POC ARTERIAL BLOOD GAS PH (test code = POCPHA) 7.412 7.35-7. 45 N POC ARTERIAL BLOOD GAS PCO2 (test code = QWBTIO3R) 38.5 mmHg 35. 0-45 N POC TCO2 ARTERIAL (test code = POCTCO2) 25.7 POC ARTERIAL BLOOD GAS PO2 (test code = WXROG2H) 425.2 mmHg 80-10 0.0 HH POC HCO3 ARTERIAL (test code = AIPCZB7I) 24.5 MMOL/L 22.0-26.0 N POC BASE EXCESS (test code = POCBEA) -0.1 MMOL/L -4.0-4.0 N POC O2 SATURATION (test code = POCO2S) 100.0 % 90-100 N [id number] 10:00:00* Test Item Value Reference Range Interpretation Comments SODIUM (test code = NA/ABG) 138 MEQ/L 134-147 N [id number] 10:00:00* Test Item Value Reference Range Interpretation Comments POTASSIUM (test code = K/ABG) 4.5 MEQ/L 3.4-5.0 N [id number] 10:00:00* Test Item Value Reference Range Interpretation Comments CHLORIDE (test code = CL/ABG) MEQ/L 100-108 CREATININE [id number] 10:00:00* Test Item Value Reference Range Interpretation Comments CREATININE ABG (test code = CREAABG) mg/dL 0.8-1.3 [id number] 10:00:00* Test Item Value Reference Range Interpretation Comments HEMOGLOBIN (test code = HGB/ABG) G/DL 12.5-16.9 [id number] 10:00:00* Test Item Value Reference Range Interpretation Comments HEMATOCRIT (test code = HCT/ABG) % 37.5-50.7 POC IONIZED [id number] 10:00:00* Test Item Value Reference Range Interpretation Comments POC IONIZED CALCIUM (test code = POCCA) MMOL/L 1.12-1.32 POC [id number] 10:00:00* Test Item Value Reference Range Interpretation Comments POC GLUCOSE (test code = POCGLU) MG/DL 70-110 POC ARTERIAL BLOOD [id number] 10:00:00* Test Item Value Reference Range Interpretation Comments POC ARTERIAL BLOOD GAS PH (test code = POCPHA) 7.412 7.35-7. 45 N POC ARTERIAL BLOOD GAS PCO2 (test code = WNQKSJ2S) 38.5 mmHg 35. 0-45 N POC TCO2 ARTERIAL (test code = POCTCO2) 25.7 POC ARTERIAL BLOOD GAS PO2 (test code = FNVXA2A) 425.2 mmHg 80-10 0.0 HH POC HCO3 ARTERIAL (test code = EPFMDX2L) 24.5 MMOL/L 22.0-26.0 N POC BASE EXCESS (test code = POCBEA) -0.1 MMOL/L -4.0-4.0 N POC O2 SATURATION (test code = POCO2S) 100.0 % 90-100 N [id number] 10:00:00* Test Item Value Reference Range Interpretation Comments SODIUM (test code = NA/ABG) 138 MEQ/L 134-147 N [id number] 10:00:00* Test Item Value Reference Range Interpretation Comments POTASSIUM (test code = K/ABG) 4.5 MEQ/L 3.4-5.0 N [id number] 10:00:00* Test Item Value Reference Range Interpretation Comments CHLORIDE (test code = CL/ABG) MEQ/L 100-108 CREATININE [id number] 10:00:00* Test Item Value Reference Range Interpretation Comments CREATININE ABG (test code = CREAABG) mg/dL 0.8-1.3 [id number] 10:00:00* Test Item Value Reference Range Interpretation Comments HEMOGLOBIN (test code = HGB/ABG) G/DL 12.5-16.9 [id number] 10:00:00* Test Item Value Reference Range Interpretation Comments HEMATOCRIT (test code = HCT/ABG) % 37.5-50.7 POC IONIZED [id number] 10:00:00* Test Item Value Reference Range Interpretation Comments POC IONIZED CALCIUM (test code = POCCA) 1.13 MMOL/L 1.12-1.32 N POC [id number] 10:00:00* Test Item Value Reference Range Interpretation Comments POC GLUCOSE (test code = POCGLU) MG/DL 70-110 POC ARTERIAL BLOOD [id number] 10:00:00* Test Item Value Reference Range Interpretation Comments POC ARTERIAL BLOOD GAS PH (test code = POCPHA) 7.412 7.35-7. 45 N POC ARTERIAL BLOOD GAS PCO2 (test code = WUXPIN4B) 38.5 mmHg 35. 0-45 N POC TCO2 ARTERIAL (test code = POCTCO2) 25.7 POC ARTERIAL BLOOD GAS PO2 (test code = GVQSY4C) 425.2 mmHg 80-10 0.0 HH POC HCO3 ARTERIAL (test code = NWGERJ5C) 24.5 MMOL/L 22.0-26.0 N POC BASE EXCESS (test code = POCBEA) -0.1 MMOL/L -4.0-4.0 N POC O2 SATURATION (test code = POCO2S) 100.0 % 90-100 N [id number] 10:00:00* Test Item Value Reference Range Interpretation Comments SODIUM (test code = NA/ABG) 138 MEQ/L 134-147 N [id number] 10:00:00* Test Item Value Reference Range Interpretation Comments POTASSIUM (test code = K/ABG) 4.5 MEQ/L 3.4-5.0 N [id number] 10:00:00* Test Item Value Reference Range Interpretation Comments CHLORIDE (test code = CL/ABG) MEQ/L 100-108 CREATININE [id number] 10:00:00* Test Item Value Reference Range Interpretation Comments CREATININE ABG (test code = CREAABG) mg/dL 0.8-1.3 [id number] 10:00:00* Test Item Value Reference Range Interpretation Comments HEMOGLOBIN (test code = HGB/ABG) G/DL 12.5-16.9 [id number] 10:00:00* Test Item Value Reference Range Interpretation Comments HEMATOCRIT (test code = HCT/ABG) % 37.5-50.7 POC IONIZED [id number] 10:00:00* Test Item Value Reference Range Interpretation Comments POC IONIZED CALCIUM (test code = POCCA) 1.13 MMOL/L 1.12-1.32 N POC [id number] 10:00:00* Test Item Value Reference Range Interpretation Comments POC GLUCOSE (test code = POCGLU) 172 MG/DL 70-110 H POC ARTERIAL BLOOD [id number] 10:00:00* Test Item Value Reference Range Interpretation Comments POC ARTERIAL BLOOD GAS PH (test code = POCPHA) 7.412 7.35-7. 45 N POC ARTERIAL BLOOD GAS PCO2 (test code = PKFLSG2O) 38.5 mmHg 35. 0-45 N POC TCO2 ARTERIAL (test code = POCTCO2) 25.7 POC ARTERIAL BLOOD GAS PO2 (test code = YTIQB1P) 425.2 mmHg 80-10 0.0 HH POC HCO3 ARTERIAL (test code = OZNSZT7G) 24.5 MMOL/L 22.0-26.0 N POC BASE EXCESS (test code = POCBEA) -0.1 MMOL/L -4.0-4.0 N POC O2 SATURATION (test code = POCO2S) 100.0 % 90-100 N [id number] 10:00:00* Test Item Value Reference Range Interpretation Comments SODIUM (test code = NA/ABG) 138 MEQ/L 134-147 N [id number] 10:00:00* Test Item Value Reference Range Interpretation Comments POTASSIUM (test code = K/ABG) 4.5 MEQ/L 3.4-5.0 N [id number] 10:00:00* Test Item Value Reference Range Interpretation Comments CHLORIDE (test code = CL/ABG) MEQ/L 100-108 CREATININE [id number] 10:00:00* Test Item Value Reference Range Interpretation Comments CREATININE ABG (test code = CREAABG) mg/dL 0.8-1.3 [id number] 10:00:00* Test Item Value Reference Range Interpretation Comments HEMOGLOBIN (test code = HGB/ABG) G/DL 12.5-16.9 [id number] 10:00:00* Test Item Value Reference Range Interpretation Comments HEMATOCRIT (test code = HCT/ABG) 21 % 37.5-50.7 L POC IONIZED [id number] 10:00:00* Test Item Value Reference Range Interpretation Comments POC IONIZED CALCIUM (test code = POCCA) 1.13 MMOL/L 1.12-1.32 N POC [id number] 10:00:00* Test Item Value Reference Range Interpretation Comments POC GLUCOSE (test code = POCGLU) 172 MG/DL 70-110 H POC ARTERIAL BLOOD [id number] 10:00:00* Test Item Value Reference Range Interpretation Comments POC ARTERIAL BLOOD GAS PH (test code = POCPHA) 7.412 7.35-7. 45 N POC ARTERIAL BLOOD GAS PCO2 (test code = NMFAUS1S) 38.5 mmHg 35. 0-45 N POC TCO2 ARTERIAL (test code = POCTCO2) 25.7 POC ARTERIAL BLOOD GAS PO2 (test code = DLTDT9M) 425.2 mmHg 80-10 0.0 HH POC HCO3 ARTERIAL (test code = YKNZQG4E) 24.5 MMOL/L 22.0-26.0 N POC BASE EXCESS (test code = POCBEA) -0.1 MMOL/L -4.0-4.0 N POC O2 SATURATION (test code = POCO2S) 100.0 % 90-100 N [id number] 10:00:00* Test Item Value Reference Range Interpretation Comments SODIUM (test code = NA/ABG) 138 MEQ/L 134-147 N [id number] 10:00:00* Test Item Value Reference Range Interpretation Comments POTASSIUM (test code = K/ABG) 4.5 MEQ/L 3.4-5.0 N [id number] 10:00:00* Test Item Value Reference Range Interpretation Comments CHLORIDE (test code = CL/ABG) MEQ/L 100-108 CREATININE [id number] 10:00:00* Test Item Value Reference Range Interpretation Comments CREATININE ABG (test code = CREAABG) mg/dL 0.8-1.3 [id number] 10:00:00* Test Item Value Reference Range Interpretation Comments HEMOGLOBIN (test code = HGB/ABG) 7.3 G/DL 12.5-16.9 L [id number] 10:00:00* Test Item Value Reference Range Interpretation Comments HEMATOCRIT (test code = HCT/ABG) 21 % 37.5-50.7 L POC IONIZED [id number] 10:00:00* Test Item Value Reference Range Interpretation Comments POC IONIZED CALCIUM (test code = POCCA) 1.13 MMOL/L 1.12-1.32 N POC [id number] 10:00:00* Test Item Value Reference Range Interpretation Comments POC GLUCOSE (test code = POCGLU) 172 MG/DL 70-110 H POC ARTERIAL BLOOD [id number] 10:00:00* Test Item Value Reference Range Interpretation Comments POC ARTERIAL BLOOD GAS PH (test code = POCPHA) 7.412 7.35-7. 45 N POC ARTERIAL BLOOD GAS PCO2 (test code = NRYYVE6U) 38.5 mmHg 35. 0-45 N POC TCO2 ARTERIAL (test code = POCTCO2) 25.7 POC ARTERIAL BLOOD GAS PO2 (test code = QFXKL0W) 425.2 mmHg 80-10 0.0 HH POC HCO3 ARTERIAL (test code = TIINKD3D) 24.5 MMOL/L 22.0-26.0 N POC BASE EXCESS (test code = POCBEA) -0.1 MMOL/L -4.0-4.0 N POC O2 SATURATION (test code = POCO2S) 100.0 % 90-100 N [id number] 10:00:00* Test Item Value Reference Range Interpretation Comments SODIUM (test code = NA/ABG) 138 MEQ/L 134-147 N [id number] 10:00:00* Test Item Value Reference Range Interpretation Comments POTASSIUM (test code = K/ABG) 4.5 MEQ/L 3.4-5.0 N [id number] 10:00:00* Test Item Value Reference Range Interpretation Comments CHLORIDE (test code = CL/ABG) 106 MEQ/L 100-108 N CREATININE [id number] 10:00:00* Test Item Value Reference Range Interpretation Comments CREATININE ABG (test code = CREAABG) mg/dL 0.8-1.3 [id number] 10:00:00* Test Item Value Reference Range Interpretation Comments HEMOGLOBIN (test code = HGB/ABG) 7.3 G/DL 12.5-16.9 L [id number] 10:00:00* Test Item Value Reference Range Interpretation Comments HEMATOCRIT (test code = HCT/ABG) 21 % 37.5-50.7 L POC IONIZED [id number] 10:00:00* Test Item Value Reference Range Interpretation Comments POC IONIZED CALCIUM (test code = POCCA) 1.13 MMOL/L 1.12-1.32 N POC [id number] 10:00:00* Test Item Value Reference Range Interpretation Comments POC GLUCOSE (test code = POCGLU) 172 MG/DL 70-110 H POC ARTERIAL BLOOD [id number] 10:00:00* Test Item Value Reference Range Interpretation Comments POC ARTERIAL BLOOD GAS PH (test code = POCPHA) 7.412 7.35-7. 45 N POC ARTERIAL BLOOD GAS PCO2 (test code = RWHDOM3R) 38.5 mmHg 35. 0-45 N POC TCO2 ARTERIAL (test code = POCTCO2) 25.7 POC ARTERIAL BLOOD GAS PO2 (test code = EHLAV7X) 425.2 mmHg 80-10 0.0 HH POC HCO3 ARTERIAL (test code = IZYCOV8Z) 24.5 MMOL/L 22.0-26.0 N POC BASE EXCESS (test code = POCBEA) -0.1 MMOL/L -4.0-4.0 N POC O2 SATURATION (test code = POCO2S) 100.0 % 90-100 N [id number] 10:00:00* Test Item Value Reference Range Interpretation Comments SODIUM (test code = NA/ABG) 138 MEQ/L 134-147 N [id number] 10:00:00* Test Item Value Reference Range Interpretation Comments POTASSIUM (test code = K/ABG) 4.5 MEQ/L 3.4-5.0 N [id number] 10:00:00* Test Item Value Reference Range Interpretation Comments CHLORIDE (test code = CL/ABG) 106 MEQ/L 100-108 N CREATININE [id number] 10:00:00* Test Item Value Reference Range Interpretation Comments CREATININE ABG (test code = CREAABG) 0.8 mg/dL 0.8-1.3 N [id number] 10:00:00* Test Item Value Reference Range Interpretation Comments HEMOGLOBIN (test code = HGB/ABG) 7.3 G/DL 12.5-16.9 L [id number] 10:00:00* Test Item Value Reference Range Interpretation Comments HEMATOCRIT (test code = HCT/ABG) 21 % 37.5-50.7 L POC IONIZED [id number] 10:00:00* Test Item Value Reference Range Interpretation Comments POC IONIZED CALCIUM (test code = POCCA) 1.13 MMOL/L 1.12-1.32 N POC [id number] 10:00:00* Test Item Value Reference Range Interpretation Comments POC GLUCOSE (test code = POCGLU) 172 MG/DL 70-110 H POC ARTERIAL BLOOD [id number] 09:38:00* Test Item Value Reference Range Interpretation Comments POC ARTERIAL BLOOD GAS PH (test code = POCPHA) 7.381 7.35-7. 45 N POC ARTERIAL BLOOD GAS PCO2 (test code = XFGLOT2M) 38.2 mmHg 35. 0-45 N POC TCO2 ARTERIAL (test code = POCTCO2) 23.8 POC ARTERIAL BLOOD GAS PO2 (test code = SPKMO9J) 204.7 mmHg 80-10 0.0 HH POC HCO3 ARTERIAL (test code = OOBKOF9E) 22.6 MMOL/L 22.0-26.0 N POC BASE EXCESS (test code = POCBEA) -2.2 MMOL/L -4.0-4.0 N POC O2 SATURATION (test code = POCO2S) 99.7 % 90-100 N [id number] 09:38:00* Test Item Value Reference Range Interpretation Comments SODIUM (test code = NA/ABG) MEQ/L 134-147 [id number] 09:38:00* Test Item Value Reference Range Interpretation Comments POTASSIUM (test code = K/ABG) MEQ/L 3.4-5.0 [id number] 09:38:00* Test Item Value Reference Range Interpretation Comments CHLORIDE (test code = CL/ABG) MEQ/L 100-108 CREATININE [id number] 09:38:00* Test Item Value Reference Range Interpretation Comments CREATININE ABG (test code = CREAABG) mg/dL 0.8-1.3 [id number] 09:38:00* Test Item Value Reference Range Interpretation Comments HEMOGLOBIN (test code = HGB/ABG) G/DL 12.5-16.9 [id number] 09:38:00* Test Item Value Reference Range Interpretation Comments HEMATOCRIT (test code = HCT/ABG) % 37.5-50.7 POC IONIZED [id number] 09:38:00* Test Item Value Reference Range Interpretation Comments POC IONIZED CALCIUM (test code = POCCA) MMOL/L 1.12-1.32 POC [id number] 09:38:00* Test Item Value Reference Range Interpretation Comments POC GLUCOSE (test code = POCGLU) MG/DL 70-110 POC ARTERIAL BLOOD [id number] 09:38:00* Test Item Value Reference Range Interpretation Comments POC ARTERIAL BLOOD GAS PH (test code = POCPHA) 7.381 7.35-7. 45 N POC ARTERIAL BLOOD GAS PCO2 (test code = VHBFCK2P) 38.2 mmHg 35. 0-45 N POC TCO2 ARTERIAL (test code = POCTCO2) 23.8 POC ARTERIAL BLOOD GAS PO2 (test code = WMPDW7H) 204.7 mmHg 80-10 0.0 HH POC HCO3 ARTERIAL (test code = XINISU7L) 22.6 MMOL/L 22.0-26.0 N POC BASE EXCESS (test code = POCBEA) -2.2 MMOL/L -4.0-4.0 N POC O2 SATURATION (test code = POCO2S) 99.7 % 90-100 N [id number] 09:38:00* Test Item Value Reference Range Interpretation Comments SODIUM (test code = NA/ABG) 138 MEQ/L 134-147 N [id number] 09:38:00* Test Item Value Reference Range Interpretation Comments POTASSIUM (test code = K/ABG) MEQ/L 3.4-5.0 [id number] 09:38:00* Test Item Value Reference Range Interpretation Comments CHLORIDE (test code = CL/ABG) MEQ/L 100-108 CREATININE [id number] 09:38:00* Test Item Value Reference Range Interpretation Comments CREATININE ABG (test code = CREAABG) mg/dL 0.8-1.3 [id number] 09:38:00* Test Item Value Reference Range Interpretation Comments HEMOGLOBIN (test code = HGB/ABG) G/DL 12.5-16.9 [id number] 09:38:00* Test Item Value Reference Range Interpretation Comments HEMATOCRIT (test code = HCT/ABG) % 37.5-50.7 POC IONIZED [id number] 09:38:00* Test Item Value Reference Range Interpretation Comments POC IONIZED CALCIUM (test code = POCCA) MMOL/L 1.12-1.32 POC [id number] 09:38:00* Test Item Value Reference Range Interpretation Comments POC GLUCOSE (test code = POCGLU) MG/DL 70-110 POC ARTERIAL BLOOD [id number] 09:38:00* Test Item Value Reference Range Interpretation Comments POC ARTERIAL BLOOD GAS PH (test code = POCPHA) 7.381 7.35-7. 45 N POC ARTERIAL BLOOD GAS PCO2 (test code = HFUFTF3H) 38.2 mmHg 35. 0-45 N POC TCO2 ARTERIAL (test code = POCTCO2) 23.8 POC ARTERIAL BLOOD GAS PO2 (test code = KVHAM9F) 204.7 mmHg 80-10 0.0 HH POC HCO3 ARTERIAL (test code = RQKLKX6Z) 22.6 MMOL/L 22.0-26.0 N POC BASE EXCESS (test code = POCBEA) -2.2 MMOL/L -4.0-4.0 N POC O2 SATURATION (test code = POCO2S) 99.7 % 90-100 N [id number] 09:38:00* Test Item Value Reference Range Interpretation Comments SODIUM (test code = NA/ABG) 138 MEQ/L 134-147 N [id number] 09:38:00* Test Item Value Reference Range Interpretation Comments POTASSIUM (test code = K/ABG) 4.1 MEQ/L 3.4-5.0 N [id number] 09:38:00* Test Item Value Reference Range Interpretation Comments CHLORIDE (test code = CL/ABG) MEQ/L 100-108 CREATININE [id number] 09:38:00* Test Item Value Reference Range Interpretation Comments CREATININE ABG (test code = CREAABG) mg/dL 0.8-1.3 [id number] 09:38:00* Test Item Value Reference Range Interpretation Comments HEMOGLOBIN (test code = HGB/ABG) G/DL 12.5-16.9 [id number] 09:38:00* Test Item Value Reference Range Interpretation Comments HEMATOCRIT (test code = HCT/ABG) % 37.5-50.7 POC IONIZED [id number] 09:38:00* Test Item Value Reference Range Interpretation Comments POC IONIZED CALCIUM (test code = POCCA) MMOL/L 1.12-1.32 POC [id number] 09:38:00* Test Item Value Reference Range Interpretation Comments POC GLUCOSE (test code = POCGLU) MG/DL 70-110 POC ARTERIAL BLOOD [id number] 09:38:00* Test Item Value Reference Range Interpretation Comments POC ARTERIAL BLOOD GAS PH (test code = POCPHA) 7.381 7.35-7. 45 N POC ARTERIAL BLOOD GAS PCO2 (test code = NIAXND2P) 38.2 mmHg 35. 0-45 N POC TCO2 ARTERIAL (test code = POCTCO2) 23.8 POC ARTERIAL BLOOD GAS PO2 (test code = NUKPB7S) 204.7 mmHg 80-10 0.0 HH POC HCO3 ARTERIAL (test code = TBBTXB7I) 22.6 MMOL/L 22.0-26.0 N POC BASE EXCESS (test code = POCBEA) -2.2 MMOL/L -4.0-4.0 N POC O2 SATURATION (test code = POCO2S) 99.7 % 90-100 N [id number] 09:38:00* Test Item Value Reference Range Interpretation Comments SODIUM (test code = NA/ABG) 138 MEQ/L 134-147 N [id number] 09:38:00* Test Item Value Reference Range Interpretation Comments POTASSIUM (test code = K/ABG) 4.1 MEQ/L 3.4-5.0 N [id number] 09:38:00* Test Item Value Reference Range Interpretation Comments CHLORIDE (test code = CL/ABG) MEQ/L 100-108 CREATININE [id number] 09:38:00* Test Item Value Reference Range Interpretation Comments CREATININE ABG (test code = CREAABG) mg/dL 0.8-1.3 [id number] 09:38:00* Test Item Value Reference Range Interpretation Comments HEMOGLOBIN (test code = HGB/ABG) G/DL 12.5-16.9 [id number] 09:38:00* Test Item Value Reference Range Interpretation Comments HEMATOCRIT (test code = HCT/ABG) % 37.5-50.7 POC IONIZED [id number] 09:38:00* Test Item Value Reference Range Interpretation Comments POC IONIZED CALCIUM (test code = POCCA) 1.21 MMOL/L 1.12-1.32 N POC [id number] 09:38:00* Test Item Value Reference Range Interpretation Comments POC GLUCOSE (test code = POCGLU) MG/DL 70-110 POC ARTERIAL BLOOD [id number] 09:38:00* Test Item Value Reference Range Interpretation Comments POC ARTERIAL BLOOD GAS PH (test code = POCPHA) 7.381 7.35-7. 45 N POC ARTERIAL BLOOD GAS PCO2 (test code = NTVOUE5T) 38.2 mmHg 35. 0-45 N POC TCO2 ARTERIAL (test code = POCTCO2) 23.8 POC ARTERIAL BLOOD GAS PO2 (test code = PRQZW5H) 204.7 mmHg 80-10 0.0 HH POC HCO3 ARTERIAL (test code = RYSESB6U) 22.6 MMOL/L 22.0-26.0 N POC BASE EXCESS (test code = POCBEA) -2.2 MMOL/L -4.0-4.0 N POC O2 SATURATION (test code = POCO2S) 99.7 % 90-100 N [id number] 09:38:00* Test Item Value Reference Range Interpretation Comments SODIUM (test code = NA/ABG) 138 MEQ/L 134-147 N [id number] 09:38:00* Test Item Value Reference Range Interpretation Comments POTASSIUM (test code = K/ABG) 4.1 MEQ/L 3.4-5.0 N [id number] 09:38:00* Test Item Value Reference Range Interpretation Comments CHLORIDE (test code = CL/ABG) MEQ/L 100-108 CREATININE [id number] 09:38:00* Test Item Value Reference Range Interpretation Comments CREATININE ABG (test code = CREAABG) mg/dL 0.8-1.3 [id number] 09:38:00* Test Item Value Reference Range Interpretation Comments HEMOGLOBIN (test code = HGB/ABG) G/DL 12.5-16.9 [id number] 09:38:00* Test Item Value Reference Range Interpretation Comments HEMATOCRIT (test code = HCT/ABG) % 37.5-50.7 POC IONIZED [id number] 09:38:00* Test Item Value Reference Range Interpretation Comments POC IONIZED CALCIUM (test code = POCCA) 1.21 MMOL/L 1.12-1.32 N POC [id number] 09:38:00* Test Item Value Reference Range Interpretation Comments POC GLUCOSE (test code = POCGLU) 182 MG/DL 70-110 H POC ARTERIAL BLOOD [id number] 09:38:00* Test Item Value Reference Range Interpretation Comments POC ARTERIAL BLOOD GAS PH (test code = POCPHA) 7.381 7.35-7. 45 N POC ARTERIAL BLOOD GAS PCO2 (test code = UQCTOI2W) 38.2 mmHg 35. 0-45 N POC TCO2 ARTERIAL (test code = POCTCO2) 23.8 POC ARTERIAL BLOOD GAS PO2 (test code = WDAEZ6A) 204.7 mmHg 80-10 0.0 HH POC HCO3 ARTERIAL (test code = YYSZJL1P) 22.6 MMOL/L 22.0-26.0 N POC BASE EXCESS (test code = POCBEA) -2.2 MMOL/L -4.0-4.0 N POC O2 SATURATION (test code = POCO2S) 99.7 % 90-100 N [id number] 09:38:00* Test Item Value Reference Range Interpretation Comments SODIUM (test code = NA/ABG) 138 MEQ/L 134-147 N [id number] 09:38:00* Test Item Value Reference Range Interpretation Comments POTASSIUM (test code = K/ABG) 4.1 MEQ/L 3.4-5.0 N [id number] 09:38:00* Test Item Value Reference Range Interpretation Comments CHLORIDE (test code = CL/ABG) MEQ/L 100-108 CREATININE [id number] 09:38:00* Test Item Value Reference Range Interpretation Comments CREATININE ABG (test code = CREAABG) mg/dL 0.8-1.3 [id number] 09:38:00* Test Item Value Reference Range Interpretation Comments HEMOGLOBIN (test code = HGB/ABG) G/DL 12.5-16.9 [id number] 09:38:00* Test Item Value Reference Range Interpretation Comments HEMATOCRIT (test code = HCT/ABG) 31 % 37.5-50.7 L POC IONIZED [id number] 09:38:00* Test Item Value Reference Range Interpretation Comments POC IONIZED CALCIUM (test code = POCCA) 1.21 MMOL/L 1.12-1.32 N POC [id number] 09:38:00* Test Item Value Reference Range Interpretation Comments POC GLUCOSE (test code = POCGLU) 182 MG/DL 70-110 H POC ARTERIAL BLOOD [id number] 09:38:00* Test Item Value Reference Range Interpretation Comments POC ARTERIAL BLOOD GAS PH (test code = POCPHA) 7.381 7.35-7. 45 N POC ARTERIAL BLOOD GAS PCO2 (test code = CVWLHX9G) 38.2 mmHg 35. 0-45 N POC TCO2 ARTERIAL (test code = POCTCO2) 23.8 POC ARTERIAL BLOOD GAS PO2 (test code = UIDAK4D) 204.7 mmHg 80-10 0.0 HH POC HCO3 ARTERIAL (test code = SFPARC3G) 22.6 MMOL/L 22.0-26.0 N POC BASE EXCESS (test code = POCBEA) -2.2 MMOL/L -4.0-4.0 N POC O2 SATURATION (test code = POCO2S) 99.7 % 90-100 N [id number] 09:38:00* Test Item Value Reference Range Interpretation Comments SODIUM (test code = NA/ABG) 138 MEQ/L 134-147 N [id number] 09:38:00* Test Item Value Reference Range Interpretation Comments POTASSIUM (test code = K/ABG) 4.1 MEQ/L 3.4-5.0 N [id number] 09:38:00* Test Item Value Reference Range Interpretation Comments CHLORIDE (test code = CL/ABG) MEQ/L 100-108 CREATININE [id number] 09:38:00* Test Item Value Reference Range Interpretation Comments CREATININE ABG (test code = CREAABG) mg/dL 0.8-1.3 [id number] 09:38:00* Test Item Value Reference Range Interpretation Comments HEMOGLOBIN (test code = HGB/ABG) 10.6 G/DL 12.5-16.9 L [id number] 09:38:00* Test Item Value Reference Range Interpretation Comments HEMATOCRIT (test code = HCT/ABG) 31 % 37.5-50.7 L POC IONIZED [id number] 09:38:00* Test Item Value Reference Range Interpretation Comments POC IONIZED CALCIUM (test code = POCCA) 1.21 MMOL/L 1.12-1.32 N POC [id number] 09:38:00* Test Item Value Reference Range Interpretation Comments POC GLUCOSE (test code = POCGLU) 182 MG/DL 70-110 H POC ARTERIAL BLOOD [id number] 09:38:00* Test Item Value Reference Range Interpretation Comments POC ARTERIAL BLOOD GAS PH (test code = POCPHA) 7.381 7.35-7. 45 N POC ARTERIAL BLOOD GAS PCO2 (test code = VRZUFY1I) 38.2 mmHg 35. 0-45 N POC TCO2 ARTERIAL (test code = POCTCO2) 23.8 POC ARTERIAL BLOOD GAS PO2 (test code = NZSNL6K) 204.7 mmHg 80-10 0.0 HH POC HCO3 ARTERIAL (test code = LRTEZX1P) 22.6 MMOL/L 22.0-26.0 N POC BASE EXCESS (test code = POCBEA) -2.2 MMOL/L -4.0-4.0 N POC O2 SATURATION (test code = POCO2S) 99.7 % 90-100 N [id number] 09:38:00* Test Item Value Reference Range Interpretation Comments SODIUM (test code = NA/ABG) 138 MEQ/L 134-147 N [id number] 09:38:00* Test Item Value Reference Range Interpretation Comments POTASSIUM (test code = K/ABG) 4.1 MEQ/L 3.4-5.0 N [id number] 09:38:00* Test Item Value Reference Range Interpretation Comments CHLORIDE (test code = CL/ABG) 109 MEQ/L 100-108 H CREATININE [id number] 09:38:00* Test Item Value Reference Range Interpretation Comments CREATININE ABG (test code = CREAABG) mg/dL 0.8-1.3 [id number] 09:38:00* Test Item Value Reference Range Interpretation Comments HEMOGLOBIN (test code = HGB/ABG) 10.6 G/DL 12.5-16.9 L [id number] 09:38:00* Test Item Value Reference Range Interpretation Comments HEMATOCRIT (test code = HCT/ABG) 31 % 37.5-50.7 L POC IONIZED [id number] 09:38:00* Test Item Value Reference Range Interpretation Comments POC IONIZED CALCIUM (test code = POCCA) 1.21 MMOL/L 1.12-1.32 N POC [id number] 09:38:00* Test Item Value Reference Range Interpretation Comments POC GLUCOSE (test code = POCGLU) 182 MG/DL 70-110 H POC ARTERIAL BLOOD [id number] 09:38:00* Test Item Value Reference Range Interpretation Comments POC ARTERIAL BLOOD GAS PH (test code = POCPHA) 7.381 7.35-7. 45 N POC ARTERIAL BLOOD GAS PCO2 (test code = APWAQW4W) 38.2 mmHg 35. 0-45 N POC TCO2 ARTERIAL (test code = POCTCO2) 23.8 POC ARTERIAL BLOOD GAS PO2 (test code = SIQRC6S) 204.7 mmHg 80-10 0.0 HH POC HCO3 ARTERIAL (test code = XQKDHF8N) 22.6 MMOL/L 22.0-26.0 N POC BASE EXCESS (test code = POCBEA) -2.2 MMOL/L -4.0-4.0 N POC O2 SATURATION (test code = POCO2S) 99.7 % 90-100 N [id number] 09:38:00* Test Item Value Reference Range Interpretation Comments SODIUM (test code = NA/ABG) 138 MEQ/L 134-147 N [id number] 09:38:00* Test Item Value Reference Range Interpretation Comments POTASSIUM (test code = K/ABG) 4.1 MEQ/L 3.4-5.0 N [id number] 09:38:00* Test Item Value Reference Range Interpretation Comments CHLORIDE (test code = CL/ABG) 109 MEQ/L 100-108 H CREATININE [id number] 09:38:00* Test Item Value Reference Range Interpretation Comments CREATININE ABG (test code = CREAABG) 0.9 mg/dL 0.8-1.3 [id number] 09:38:00* Test Item Value Reference Range Interpretation Comments HEMOGLOBIN (test code = HGB/ABG) 10.6 G/DL 12.5-16.9 L [id number] 09:38:00* Test Item Value Reference Range Interpretation Comments HEMATOCRIT (test code = HCT/ABG) 31 % 37.5-50.7 L POC IONIZED [id number] 09:38:00* Test Item Value Reference Range Interpretation Comments POC IONIZED CALCIUM (test code = POCCA) 1.21 MMOL/L 1.12-1.32 N POC [id number] 09:38:00* Test Item Value Reference Range Interpretation Comments POC GLUCOSE (test code = POCGLU) 182 MG/DL 70-110 H BASIC METABOLIC [id number] 07:12:00* Test Item Value Reference Range Interpretation [...] = LDL) 73 mg/dL 0-100 N <100 [id number] NEAR OPTIMAL/ABOVE [id number] [id number] HIGH>WM=241 VERY HIGH*Guidelines provided by the National Cholesterol EducationProgram Adult Treatment Panel III POC ARTERIAL BLOOD [id number] 07:07:00* Test Item Value Reference Range Interpretation Comments POC ARTERIAL BLOOD GAS PH (test code = POCPHA) 7.365 7.35-7. 45 N POC ARTERIAL BLOOD GAS PCO2 (test code = CUFVUE8K) 47.5 mmHg 35. 0-45 H POC TCO2 ARTERIAL (test code = POCTCO2) 28.6 POC ARTERIAL BLOOD GAS PO2 (test code = WZPVH5M) 90.0 mmHg 80-10 0.0 N POC HCO3 ARTERIAL (test code = DRFIOG4R) 27.2 MMOL/L 22.0-26.0 H POC BASE EXCESS (test code = POCBEA) 1.2 MMOL/L -4.0-4.0 N POC O2 SATURATION (test code = POCO2S) 96.5 % 90-100 N [id number] 07:07:00* Test Item Value Reference Range Interpretation Comments SODIUM (test code = NA/ABG) MEQ/L 134-147 [id number] 07:07:00* Test Item Value Reference Range Interpretation Comments POTASSIUM (test code = K/ABG) MEQ/L 3.4-5.0 [id number] 07:07:00* Test Item Value Reference Range Interpretation Comments CHLORIDE (test code = CL/ABG) MEQ/L 100-108 CREATININE [id number] 07:07:00* Test Item Value Reference Range Interpretation Comments CREATININE ABG (test code = CREAABG) mg/dL 0.8-1.3 [id number] 07:07:00* Test Item Value Reference Range Interpretation Comments HEMOGLOBIN (test code = HGB/ABG) G/DL 12.5-16.9 [id number] 07:07:00* Test Item Value Reference Range Interpretation Comments HEMATOCRIT (test code = HCT/ABG) % 37.5-50.7 POC IONIZED [id number] 07:07:00* Test Item Value Reference Range Interpretation Comments POC IONIZED CALCIUM (test code = POCCA) MMOL/L 1.12-1.32 POC [id number] 07:07:00* Test Item Value Reference Range Interpretation Comments POC GLUCOSE (test code = POCGLU) MG/DL 70-110 POC ARTERIAL BLOOD [id number] 07:07:00* Test Item Value Reference Range Interpretation Comments POC ARTERIAL BLOOD GAS PH (test code = POCPHA) 7.365 7.35-7. 45 N POC ARTERIAL BLOOD GAS PCO2 (test code = XQPFME2C) 47.5 mmHg 35. 0-45 H POC TCO2 ARTERIAL (test code = POCTCO2) 28.6 POC ARTERIAL BLOOD GAS PO2 (test code = CIQLK7T) 90.0 mmHg 80-10 0.0 N POC HCO3 ARTERIAL (test code = HFSLFE2D) 27.2 MMOL/L 22.0-26.0 H POC BASE EXCESS (test code = POCBEA) 1.2 MMOL/L -4.0-4.0 N POC O2 SATURATION (test code = POCO2S) 96.5 % 90-100 N [id number] 07:07:00* Test Item Value Reference Range Interpretation Comments SODIUM (test code = NA/ABG) 137 MEQ/L 134-147 N [id number] 07:07:00* Test Item Value Reference Range Interpretation Comments POTASSIUM (test code = K/ABG) MEQ/L 3.4-5.0 [id number] 07:07:00* Test Item Value Reference Range Interpretation Comments CHLORIDE (test code = CL/ABG) MEQ/L 100-108 CREATININE [id number] 07:07:00* Test Item Value Reference Range Interpretation Comments CREATININE ABG (test code = CREAABG) mg/dL 0.8-1.3 [id number] 07:07:00* Test Item Value Reference Range Interpretation Comments HEMOGLOBIN (test code = HGB/ABG) G/DL 12.5-16.9 [id number] 07:07:00* Test Item Value Reference Range Interpretation Comments HEMATOCRIT (test code = HCT/ABG) % 37.5-50.7 POC IONIZED [id number] 07:07:00* Test Item Value Reference Range Interpretation Comments POC IONIZED CALCIUM (test code = POCCA) MMOL/L 1.12-1.32 POC [id number] 07:07:00* Test Item Value Reference Range Interpretation Comments POC GLUCOSE (test code = POCGLU) MG/DL 70-110 POC ARTERIAL BLOOD [id number] 07:07:00* Test Item Value Reference Range Interpretation Comments POC ARTERIAL BLOOD GAS PH (test code = POCPHA) 7.365 7.35-7. 45 N POC ARTERIAL BLOOD GAS PCO2 (test code = BJJHSN9N) 47.5 mmHg 35. 0-45 H POC TCO2 ARTERIAL (test code = POCTCO2) 28.6 POC ARTERIAL BLOOD GAS PO2 (test code = DAPFW9C) 90.0 mmHg 80-10 0.0 N POC HCO3 ARTERIAL (test code = PIEUDR6I) 27.2 MMOL/L 22.0-26.0 H POC BASE EXCESS (test code = POCBEA) 1.2 MMOL/L -4.0-4.0 N POC O2 SATURATION (test code = POCO2S) 96.5 % 90-100 N [id number] 07:07:00* Test Item Value Reference Range Interpretation Comments SODIUM (test code = NA/ABG) 137 MEQ/L 134-147 N [id number] 07:07:00* Test Item Value Reference Range Interpretation Comments POTASSIUM (test code = K/ABG) 4.5 MEQ/L 3.4-5.0 N [id number] 07:07:00* Test Item Value Reference Range Interpretation Comments CHLORIDE (test code = CL/ABG) MEQ/L 100-108 CREATININE [id number] 07:07:00* Test Item Value Reference Range Interpretation Comments CREATININE ABG (test code = CREAABG) mg/dL 0.8-1.3 [id number] 07:07:00* Test Item Value Reference Range Interpretation Comments HEMOGLOBIN (test code = HGB/ABG) G/DL 12.5-16.9 [id number] 07:07:00* Test Item Value Reference Range Interpretation Comments HEMATOCRIT (test code = HCT/ABG) % 37.5-50.7 POC IONIZED [id number] 07:07:00* Test Item Value Reference Range Interpretation Comments POC IONIZED CALCIUM (test code = POCCA) MMOL/L 1.12-1.32 POC [id number] 07:07:00* Test Item Value Reference Range Interpretation Comments POC GLUCOSE (test code = POCGLU) MG/DL 70-110 POC ARTERIAL BLOOD [id number] 07:07:00* Test Item Value Reference Range Interpretation Comments POC ARTERIAL BLOOD GAS PH (test code = POCPHA) 7.365 7.35-7. 45 N POC ARTERIAL BLOOD GAS PCO2 (test code = XWBMGX3W) 47.5 mmHg 35. 0-45 H POC TCO2 ARTERIAL (test code = POCTCO2) 28.6 POC ARTERIAL BLOOD GAS PO2 (test code = OHYWF2O) 90.0 mmHg 80-10 0.0 N POC HCO3 ARTERIAL (test code = UGHGCI7A) 27.2 MMOL/L 22.0-26.0 H POC BASE EXCESS (test code = POCBEA) 1.2 MMOL/L -4.0-4.0 N POC O2 SATURATION (test code = POCO2S) 96.5 % 90-100 N [id number] 07:07:00* Test Item Value Reference Range Interpretation Comments SODIUM (test code = NA/ABG) 137 MEQ/L 134-147 N [id number] 07:07:00* Test Item Value Reference Range Interpretation Comments POTASSIUM (test code = K/ABG) 4.5 MEQ/L 3.4-5.0 N [id number] 07:07:00* Test Item Value Reference Range Interpretation Comments CHLORIDE (test code = CL/ABG) MEQ/L 100-108 CREATININE [id number] 07:07:00* Test Item Value Reference Range Interpretation Comments CREATININE ABG (test code = CREAABG) mg/dL 0.8-1.3 [id number] 07:07:00* Test Item Value Reference Range Interpretation Comments HEMOGLOBIN (test code = HGB/ABG) G/DL 12.5-16.9 [id number] 07:07:00* Test Item Value Reference Range Interpretation Comments HEMATOCRIT (test code = HCT/ABG) % 37.5-50.7 POC IONIZED [id number] 07:07:00* Test Item Value Reference Range Interpretation Comments POC IONIZED CALCIUM (test code = POCCA) 1.23 MMOL/L 1.12-1.32 N POC [id number] 07:07:00* Test Item Value Reference Range Interpretation Comments POC GLUCOSE (test code = POCGLU) MG/DL 70-110 POC ARTERIAL BLOOD [id number] 07:07:00* Test Item Value Reference Range Interpretation Comments POC ARTERIAL BLOOD GAS PH (test code = POCPHA) 7.365 7.35-7. 45 N POC ARTERIAL BLOOD GAS PCO2 (test code = PYSERO7M) 47.5 mmHg 35. 0-45 H POC TCO2 ARTERIAL (test code = POCTCO2) 28.6 POC ARTERIAL BLOOD GAS PO2 (test code = BRJMH7J) 90.0 mmHg 80-10 0.0 N POC HCO3 ARTERIAL (test code = CYUEPB4N) 27.2 MMOL/L 22.0-26.0 H POC BASE EXCESS (test code = POCBEA) 1.2 MMOL/L -4.0-4.0 N POC O2 SATURATION (test code = POCO2S) 96.5 % 90-100 N [id number] 07:07:00* Test Item Value Reference Range Interpretation Comments SODIUM (test code = NA/ABG) 137 MEQ/L 134-147 N [id number] 07:07:00* Test Item Value Reference Range Interpretation Comments POTASSIUM (test code = K/ABG) 4.5 MEQ/L 3.4-5.0 N [id number] 07:07:00* Test Item Value Reference Range Interpretation Comments CHLORIDE (test code = CL/ABG) MEQ/L 100-108 CREATININE [id number] 07:07:00* Test Item Value Reference Range Interpretation Comments CREATININE ABG (test code = CREAABG) mg/dL 0.8-1.3 [id number] 07:07:00* Test Item Value Reference Range Interpretation Comments HEMOGLOBIN (test code = HGB/ABG) G/DL 12.5-16.9 [id number] 07:07:00* Test Item Value Reference Range Interpretation Comments HEMATOCRIT (test code = HCT/ABG) % 37.5-50.7 POC IONIZED [id number] 07:07:00* Test Item Value Reference Range Interpretation Comments POC IONIZED CALCIUM (test code = POCCA) 1.23 MMOL/L 1.12-1.32 N POC [id number] 07:07:00* Test Item Value Reference Range Interpretation Comments POC GLUCOSE (test code = POCGLU) 170 MG/DL 70-110 H POC ARTERIAL BLOOD [id number] 07:07:00* Test Item Value Reference Range Interpretation Comments POC ARTERIAL BLOOD GAS PH (test code = POCPHA) 7.365 7.35-7. 45 N POC ARTERIAL BLOOD GAS PCO2 (test code = VEBLVE9O) 47.5 mmHg 35. 0-45 H POC TCO2 ARTERIAL (test code = POCTCO2) 28.6 POC ARTERIAL BLOOD GAS PO2 (test code = NZPST0R) 90.0 mmHg 80-10 0.0 N POC HCO3 ARTERIAL (test code = RWAXAB1L) 27.2 MMOL/L 22.0-26.0 H POC BASE EXCESS (test code = POCBEA) 1.2 MMOL/L -4.0-4.0 N POC O2 SATURATION (test code = POCO2S) 96.5 % 90-100 N [id number] 07:07:00* Test Item Value Reference Range Interpretation Comments SODIUM (test code = NA/ABG) 137 MEQ/L 134-147 N [id number] 07:07:00* Test Item Value Reference Range Interpretation Comments POTASSIUM (test code = K/ABG) 4.5 MEQ/L 3.4-5.0 N [id number] 07:07:00* Test Item Value Reference Range Interpretation Comments CHLORIDE (test code = CL/ABG) MEQ/L 100-108 CREATININE [id number] 07:07:00* Test Item Value Reference Range Interpretation Comments CREATININE ABG (test code = CREAABG) mg/dL 0.8-1.3 [id number] 07:07:00* Test Item Value Reference Range Interpretation Comments HEMOGLOBIN (test code = HGB/ABG) G/DL 12.5-16.9 [id number] 07:07:00* Test Item Value Reference Range Interpretation Comments HEMATOCRIT (test code = HCT/ABG) 36 % 37.5-50.7 L POC IONIZED [id number] 07:07:00* Test Item Value Reference Range Interpretation Comments POC IONIZED CALCIUM (test code = POCCA) 1.23 MMOL/L 1.12-1.32 N POC [id number] 07:07:00* Test Item Value Reference Range Interpretation Comments POC GLUCOSE (test code = POCGLU) 170 MG/DL 70-110 H POC ARTERIAL BLOOD [id number] 07:07:00* Test Item Value Reference Range Interpretation Comments POC ARTERIAL BLOOD GAS PH (test code = POCPHA) 7.365 7.35-7. 45 N POC ARTERIAL BLOOD GAS PCO2 (test code = PYXDAZ7N) 47.5 mmHg 35. 0-45 H POC TCO2 ARTERIAL (test code = POCTCO2) 28.6 POC ARTERIAL BLOOD GAS PO2 (test code = YNADD9L) 90.0 mmHg 80-10 0.0 N POC HCO3 ARTERIAL (test code = TEJLZJ8V) 27.2 MMOL/L 22.0-26.0 H POC BASE EXCESS (test code = POCBEA) 1.2 MMOL/L -4.0-4.0 N POC O2 SATURATION (test code = POCO2S) 96.5 % 90-100 N [id number] 07:07:00* Test Item Value Reference Range Interpretation Comments SODIUM (test code = NA/ABG) 137 MEQ/L 134-147 N [id number] 07:07:00* Test Item Value Reference Range Interpretation Comments POTASSIUM (test code = K/ABG) 4.5 MEQ/L 3.4-5.0 N [id number] 07:07:00* Test Item Value Reference Range Interpretation Comments CHLORIDE (test code = CL/ABG) MEQ/L 100-108 CREATININE [id number] 07:07:00* Test Item Value Reference Range Interpretation Comments CREATININE ABG (test code = CREAABG) mg/dL 0.8-1.3 [id number] 07:07:00* Test Item Value Reference Range Interpretation Comments HEMOGLOBIN (test code = HGB/ABG) 12.2 G/DL 12.5-16.9 L [id number] 07:07:00* Test Item Value Reference Range Interpretation Comments HEMATOCRIT (test code = HCT/ABG) 36 % 37.5-50.7 L POC IONIZED [id number] 07:07:00* Test Item Value Reference Range Interpretation Comments POC IONIZED CALCIUM (test code = POCCA) 1.23 MMOL/L 1.12-1.32 N POC [id number] 07:07:00* Test Item Value Reference Range Interpretation Comments POC GLUCOSE (test code = POCGLU) 170 MG/DL 70-110 H POC ARTERIAL BLOOD [id number] 07:07:00* Test Item Value Reference Range Interpretation Comments POC ARTERIAL BLOOD GAS PH (test code = POCPHA) 7.365 7.35-7. 45 N POC ARTERIAL BLOOD GAS PCO2 (test code = UWESZG3Y) 47.5 mmHg 35. 0-45 H POC TCO2 ARTERIAL (test code = POCTCO2) 28.6 POC ARTERIAL BLOOD GAS PO2 (test code = FHRCL7S) 90.0 mmHg 80-10 0.0 N POC HCO3 ARTERIAL (test code = RFZCGW7L) 27.2 MMOL/L 22.0-26.0 H POC BASE EXCESS (test code = POCBEA) 1.2 MMOL/L -4.0-4.0 N POC O2 SATURATION (test code = POCO2S) 96.5 % 90-100 N [id number] 07:07:00* Test Item Value Reference Range Interpretation Comments SODIUM (test code = NA/ABG) 137 MEQ/L 134-147 N [id number] 07:07:00* Test Item Value Reference Range Interpretation Comments POTASSIUM (test code = K/ABG) 4.5 MEQ/L 3.4-5.0 N [id number] 07:07:00* Test Item Value Reference Range Interpretation Comments CHLORIDE (test code = CL/ABG) 103 MEQ/L 100-108 N CREATININE [id number] 07:07:00* Test Item Value Reference Range Interpretation Comments CREATININE ABG (test code = CREAABG) mg/dL 0.8-1.3 [id number] 07:07:00* Test Item Value Reference Range Interpretation Comments HEMOGLOBIN (test code = HGB/ABG) 12.2 G/DL 12.5-16.9 L [id number] 07:07:00* Test Item Value Reference Range Interpretation Comments HEMATOCRIT (test code = HCT/ABG) 36 % 37.5-50.7 L POC IONIZED [id number] 07:07:00* Test Item Value Reference Range Interpretation Comments POC IONIZED CALCIUM (test code = POCCA) 1.23 MMOL/L 1.12-1.32 N POC [id number] 07:07:00* Test Item Value Reference Range Interpretation Comments POC GLUCOSE (test code = POCGLU) 170 MG/DL 70-110 H POC ARTERIAL BLOOD [id number] 07:07:00* Test Item Value Reference Range Interpretation Comments POC ARTERIAL BLOOD GAS PH (test code = POCPHA) 7.365 7.35-7. 45 N POC ARTERIAL BLOOD GAS PCO2 (test code = VLGGSE1G) 47.5 mmHg 35. 0-45 H POC TCO2 ARTERIAL (test code = POCTCO2) 28.6 POC ARTERIAL BLOOD GAS PO2 (test code = BDENS7K) 90.0 mmHg 80-10 0.0 N POC HCO3 ARTERIAL (test code = UGAPFK7B) 27.2 MMOL/L 22.0-26.0 H POC BASE EXCESS (test code = POCBEA) 1.2 MMOL/L -4.0-4.0 N POC O2 SATURATION (test code = POCO2S) 96.5 % 90-100 N [id number] 07:07:00* Test Item Value Reference Range Interpretation Comments SODIUM (test code = NA/ABG) 137 MEQ/L 134-147 N [id number] 07:07:00* Test Item Value Reference Range Interpretation Comments POTASSIUM (test code = K/ABG) 4.5 MEQ/L 3.4-5.0 N [id number] 07:07:00* Test Item Value Reference Range Interpretation Comments CHLORIDE (test code = CL/ABG) 103 MEQ/L 100-108 N CREATININE [id number] 07:07:00* Test Item Value Reference Range Interpretation Comments CREATININE ABG (test code = CREAABG) 1.2 mg/dL 0.8-1.3 N [id number] 07:07:00* Test Item Value Reference Range Interpretation Comments HEMOGLOBIN (test code = HGB/ABG) 12.2 G/DL 12.5-16.9 L [id number] 07:07:00* Test Item Value Reference Range Interpretation Comments HEMATOCRIT (test code = HCT/ABG) 36 % 37.5-50.7 L POC IONIZED [id number] 07:07:00* Test Item Value Reference Range Interpretation Comments POC IONIZED CALCIUM (test code = POCCA) 1.23 MMOL/L 1.12-1.32 N POC [id number] 07:07:00* Test Item Value Reference Range Interpretation Comments POC GLUCOSE (test code = POCGLU) 170 MG/DL 70-110 H [id number] 05:54:00* Test Item Value Reference Range Interpretation Comments GLUBED (test code = GLUBED) 128 MG/DL 70-110 H Performed by certified welding machine operator submerged arc at [facility] THROMBOPLASTIN TIME [id number] 05:39:00* Test Item Value Reference Range Interpretation Comments THROMBOPLASTIN TIME PARTIAL (test code = PTT) 56.3 Seconds 25.0-39. 5 H Therapeutic Range: 61.8-83.8 Sec Effective 08/27/2013 CBC W/AUTO [id number] 05:35:00* Test Item Value Reference Range Interpretation [...] = MDIFF) NO COMMENTS: Daily while on [id number] 21:10:00* Test Item Value Reference Range Interpretation Comments GLUBED (test code = GLUBED) 217 MG/DL 70-110 H Performed by certified welding machine operator submerged arc at [facility] [id number] 17:17:00* Test Item Value Reference Range Interpretation Comments GLUBED (test code = GLUBED) 211 MG/DL 70-110 H Performed by certified welding machine operator submerged arc at [facility] [id number] 13:52:00* Test Item Value Reference Range Interpretation Comments GLUBED (test code = GLUBED) 193 MG/DL 70-110 H Performed by certified welding machine operator submerged arc at [facility] - CT HEAD/BRAIN W/O [id number] 20:36:00 Name: TORI GREGORY [facility] : 1945 Age/S: 68 / M [address] Unit #: [id number] Loc: [place] [address] Phys: Nayeli Thomson MD Acct: [id number] Dis Date: Status: UNK PHONE #: [phone] Exam Date: 10/01/20142025 FAX #: [phone] Reason: dizziness EXAMS: CPT CODE: [id number] CT HEAD/BRAIN W/O CONT [id number] REASON FOR EXAM: dizziness EXAM ORDER DATE: [...] Norman Hough M.D. CC: Nayeli Thomson MD Technologist:DUSTIN BLANCO, RT(R) CT CTDI: 73 DLP: 1261 [facility] Date/Time: 10/01/2014 (2035) [email or web address] Orig Print D/T: S: 10/01/2014 (2038) CTDI: 73 DLP: 1261 PAGE 1 Signed Report - XR CHEST 1 [id number] 20:22:00 FAX: Nayeli Boggs [phone] Kinder: St: UNK Name: TORI SOMERS [facility] : [birth year] Age/S: 68/M [address] [facility] Unit #: [id number] Loc: [place] [address] Phys: Nayeli Thomson MD Acct: [id number] Dis Date: Status: UNK PHONE #: [phone] Exam Date: 10/01/20142017 FAX #: [phone] Reason: dizziness EXAMS: CPT CODE: [id number] XR CHEST 1 V 48406 REASON FOR EXAM: dizziness EXAM ORDER DATE: [...] Hough M.D. CC: Nayeli Thomson MD Technologist: RT Howard(Myriam Trnscrd Da te/Time/By: 10/01/2014 (2021) : By: KortneyVTL Orig Print D/T: S: 10/01 (2024) PAGE 1 Signed Report - XR RIBS UNI W/CXR 3+V [id number] 19:50:00 FAX: Rex Noland MD [phone] Kinder: St: [facility] FAX: Jama John [facility] [phone] Name: LALO GREGORYAbel [facility] : 1945 Age/S: 65/M [address] [facility] Unit #: [id number] Loc: [facility] NIMESH Mathew [address] Phys: Cheikh Dodson MD Acct: [id number] Dis Date: Status: UNK PHONE #: [phone] Exam Date: 08/27/2011 1253 FAX #: [phone] Reason: left mid-rib pain s/p fall EXAMS: CPT CODE: [id number] XR RIBS UNI W/CXR 3+[place] [address] HISTORY: Left rib pain post fall trauma. [...] MD; Jama Ramirez Technologist: No Quispe Trnscrd D ate/Time/By: 08/27/2011 (1949) : By: [email or web address] Orig Print D/T: S: 07/31 (1953) PAGE 1 Signed Repor t
[2020-03-02] MEDS ORDERED: ACETAMINOPHEN 325 MG TAB PO ONE (00:01)
[2020-03-02 00:08] LABS: ANION GAP 14.2 mmol/L (8-16); CALCIUM 8.1 mg/dL (8.4-10.2); CREATININE, SERUM 1.29 mg/dL (0.72-1.25); POTASSIUM 4.2 mmol/L (3.5-5.1)
[2020-03-02] MEDS ORDERED: SODIUM CHLORIDE 0.9% 1000ML 1,000 ML ONE (00:29)
[2020-03-02] MEDS ORDERED: SODIUM CHLORIDE 0.9% 1000ML 1,000 ML IV ONE (00:30)
[2020-03-02 00:40] LABS: BILIRUBIN,URINE SMALL (NEGATIVE); CLARITY,URINE SL CLOUDY (CLEAR); COLOR,URINE YELLOW (YELLOW); KETONES,URINE TRACE (NEGATIVE); LEUKOCYTE ESTERASE ,URINE SMALL (NEGATIVE); NITRITE,URINE NEGATIVE (NEGATIVE); PROTEIN,URINE DIPSTICK 2+ (NEGATIVE); URINE UROBILINOGEN 0.2 mg/dL (0.2 - 1)
--- NOTE | 2020-03-02 00:43 | NUR ---
RAD AT PTS BS FOR PORTABLE CHEST XRAY PER MD ORDERS
[2020-03-02 00:49] LABS: BACTERIA,URINE MODERATE /HPF; EPITHELIAL CELLS,URINE FEW /LPF; RBC,URINE 21-50 /HPF (0-5)
[2020-03-02] MEDS ORDERED: ACETAMINOPHEN 325 MG TAB PO PRN (01:00)
--- NOTE | 2020-03-02 01:49 | Diagnostic Imaging Report ---
EXAMINATION: CHEST SINGLE (PORTABLE) INDICATION: ^Y ^FEVER, POST OP ^[id number] ^0035 COMPARISON: Radiograph dated 08/18/2019 FINDINGS: TUBES and LINES: None. LUNGS: Patchy and hazy bibasilar opacities represent atelectasis or pneumonia. PLEURA: No pleural effusion or pneumothorax. HEART AND MEDIASTINUM: The cardiomediastinal silhouette is unremarkable. BONES AND SOFT TISSUES: No acute osseous lesion. Unchanged in underwires. Soft tissues are unremarkable. UPPER ABDOMEN: No free air under the diaphragm. IMPRESSION: New patchy and hazy bibasilar lung opacities could represent atelectasis or pneumonia in the appropriate clinical setting. Signed by: Cheikh Tang MD on 03/02/2020 1:46 AM
--- NOTE | 2020-03-02 02:56 | Emergency Department Note ---
History of Present Illnes History of Present Illness Chief Complaint: General Medicine Complaints History of Present Illness This is a 74 year old male . Historian: Patient, Family Member Arrival Mode: Car Onset (how long ago): hour(s) Radiation: Reports non-radiation Severity: mild Duration (how long): hour(s) Progression: worsening Chronicity: new Context: Reports recent surgery Relieving factors: none Exacerbating factors: none Past Medical/Family History Physician Review I have reviewed the patient's past medical and family history. Any updates have been documented here. Past Medical History Recent Fever: Yes Clinical Suspicion of Infectio: Yes New/Unexplained Change in Ment: No Past Medical History: Hypertension, Diabetes, CHF Other Medical History: PROSTATITIS, HLD Past Surgical History: CABG Other Surgery: CYSTOSCOPY Social History Smoking Cessation: Never Smoker Counseling Performed: No Alcohol Use: None Any Illegal Drug Use: No Physically hurt or threatened: No Other Any Pre-Existing Lines (PICC,: No Review of Systems Review of Systems Constitutional: Reports as per HPI, Reports chills, Reports fever EENTM: Reports no symptoms Cardiovascular: Reports no symptoms Respiratory: Reports no symptoms Gastrointestinal: Reports no symptoms Genitourinary: Reports as per HPI Musculoskeletal: Reports no symptoms Integumentary: Reports no symptoms Neurological: Reports no symptoms Psychological: Reports no symptoms Endocrine: Reports no symptoms Hematological/Lymphatic: Reports no symptoms Physical Exam Related Data Allergies: Coded Allergies: No Known Allergies (Unverified , 08/18/19) Triage Vital Signs Vital Signs Date Time Temp Pulse Resp B/P (MAP) Pulse Ox O2 Delivery O2 Flow Rate FiO2 03/01/20 23:26 102.8 104 16 149/101 97 Room Air Vital signs reviewed: Yes Physical Exam CONSTITUTIONAL Constitutional: Present well-developed, Present well-nourished, Present ill appearing HENT HENT: Present normocephalic, Present atraumatic, Present oropharynx clear/moist, Present nose normal HENT L/R: Present left ext ear normal, Present right ext ear normal EYES Eyes: Reports PERRL, Reports conjunctivae normal NECK Neck: Present ROM normal PULMONARY Pulmonary: Present effort normal, Present breath sounds normal CARDIOVASCULAR Cardiovascular: Present regular rhythm, Present heart sounds normal, Present capillary refill normal, Present normal rate GASTROINTESTINAL Abdominal: Present soft, Present nontender, Present bowel sounds normal GENITOURINARY Genitourinary: Present exam deferred SKIN Skin: Present warm, Present dry MUSCULOSKELETAL Musculoskeletal: Present ROM normal NEUROLOGICAL Neurological: Present alert, Present oriented x 3, Present no gross motor or sensory deficits PSYCHOLOGICAL Psychological: Present mood/affect normal, Present judgement normal Results Laboratory Result Diagram: 03/01/20 2337 03/01/20 2337 Laboratory Laboratory Tests Test 03/02/20 00:30 03/01/20 23:37 Urine Color Yellow (YELLOW) Urine Clarity Sl cloudy (CLEAR) Urine pH 6 (5 - 7) Urine Specific [facility] 1.020 (1.010-1.025) Urine Protein 2+ (NEGATIVE) Urine Glucose (UA) Negative (NEGATIVE) Urine Ketones Trace (NEGATIVE) Urine Blood Large (NEGATIVE) Urine Nitrite Negative (NEGATIVE) Urine Bilirubin Small (NEGATIVE) Urine Urobilinogen 0.2 mg/dL (0.2 - 1) Urine Leukocyte Esterase Small (NEGATIVE) Urine RBC 21-50 /HPF (0-5) Urine WBC 11-20 /HPF (0-5) Urine Epithelial Cells Few /LPF (NONE) Urine Bacteria Moderate /HPF (NONE) White Blood Count 15.70 x10e3/uL (4.8-10.8) Red Blood Count 3.58 x10e6/uL (4.3-5.7) Hemoglobin 10.6 g/dL (14.0-18.0) Hematocrit 32.3 % (38.2-49.6) Mean Corpuscular Volume 90.2 fL (81-99) Mean Corpuscular Hemoglobin 29.6 pg (28-32) Mean Corpuscular Hemoglobin Concent 32.8 g/dL (31-35) Red Cell Distribution Width 15.3 % (11.7-14.4) Platelet Count 200 x10e3/uL (140-360) Neutrophils (%) (Auto) 89.6 % (38.7-80.0) Lymphocytes (%) (Auto) 3.4 % (18.0-39.1) Monocytes (%) (Auto) 5.4 % (4.4-11.3) Eosinophils (%) (Auto) 0.8 % (0.0-6.0) Basophils (%) (Auto) 0.2 % (0.0-1.0) Neutrophils # (Auto) 14.1 (2.1-6.9) Lymphocytes # (Auto) 0.5 (1.0-3.2) Monocytes # (Auto) 0.9 (0.2-0.8) Eosinophils # (Auto) 0.1 (0.0-0.4) Basophils # (Auto) 0.0 (0.0-0.1) Absolute Immature Granulocyte (auto 0.10 x10e3/uL (0-0.1) Sodium Level 139 mmol/L (136-145) Potassium Level 4.2 mmol/L (3.5-5.1) Chloride Level 105 mmol/L (98-107) Carbon Dioxide Level 24 mmol/L (22-29) Anion Gap 14.2 mmol/L (8-16) Blood Urea Nitrogen 16 mg/dL (7-26) Creatinine 1.29 mg/dL (0.72-1.25) Estimat Glomerular Filtration Rate 54 ML/MIN (60-) BUN/Creatinine Ratio 12 (6-25) Glucose Level 131 mg/dL (74-118) Lactic Acid Level 2.6 mmol/L (0.5-2.0) Calcium Level 8.1 mg/dL (8.4-10.2) Total Bilirubin 0.3 mg/dL (0.2-1.2) Aspartate Amino Transf (AST/SGOT) 18 IU/L (5-34) Alanine Aminotransferase (ALT/SGPT) 13 IU/L (0-55) Alkaline Phosphatase 56 IU/L (40-150) Total Protein 6.0 g/dL (6.5-8.1) Albumin 3.0 g/dL (3.5-5.0) Globulin 3.0 g/dL (2.3-3.5) Albumin/Globulin Ratio 1.0 (0.8-2.0) Lab results reviewed: Yes Imaging Imaging results reviewed: Yes Critical Care Time Total Critical Care Time (min): 45 Critical care time exclusive o: separately billable procedures Critcal care necessary due to: sepsis Assessment & Plan Medical Decision Making MDM TIME OF SEPSIS 0015 74-year-old male arrives to the ED after having a cystoscopy. Patient febrile despite being on antibiotics. Patient had taken oral antibiotics prior to arrival. Lactic acid elevated 2.6 Repeat lactic acid 1.8 SIRS criteria met in the form of Elevated WBC and fever Ceftriaxone given, pt admitted for IV abx and further work up and management Assessment & Plan Final Impression: (1) Severe sepsis (2) UTI (urinary tract infection) Depart Disposition: ADMITTED Last Vital Signs Date Time Temp Pulse Resp B/P (MAP) Pulse Ox O2 Delivery O2 Flow Rate FiO2 03/02/20 00:54 94 16 106/48 97 Room Air 03/01/20 23:26 102.8 Home Meds Reported Medications Digoxin (DIGOXIN) 125 Mcg Tablet, 0.125 MG PO DAILY, #30 TAB 02/23/20 Sennosides/Docusate Sodium (SENOKOT-S TABLET) 1 Each Tablet, 1 TAB PO HS, TAB 02/23/20 Ascorbic Acid (VITAMIN C) 1,000 Mg Tablet, 1000 MG PO BID 02/23/20 Multivit-Min/Folic/Vit K/Lycop (Men's 50 Plus Multivitamin Tab) 1 Each Tablet, 1 TAB PO DAILY 02/23/20 Cholecalciferol (Vitamin D3) (Vitamin D3) 250 Mcg Tablet, 1000 INTLU PO DAILY 02/23/20 Lisinopril (LISINOPRIL) 2.5 Mg Tablet, 2.5 MG PO DAILY, #30 TAB 08/18/19 Metoprolol Succinate (METOPROLOL SUCCINATE) 25 Mg Tab.er.24h, 25 MG PO BID 08/18/19 Aspirin (ASPIR 81) 81 Mg Tablet.dr, 81 MG PO DAILY 08/18/19 Tamsulosin Hcl* (FLOMAX*) 0.4 Mg Cap, 0.4 MG PO BID, #30 CAP 08/18/19 Pregabalin (LYRICA) 50 Mg Cap, 100 MG PO BID, #30 TAB 08/18/19 Finasteride (FINASTERIDE) 5 Mg Tablet, 5 MG PO DAILY, #30 TAB 08/18/19 Atorvastatin Calcium (ATORVASTATIN CALCIUM) 20 Mg Tablet, 40 MG PO HS, #30 TAB 08/18/19 Insulin Lispro (HUMALOG) 100 Unit/1 Ml Insuln.pen, 5 UNITS SQ TID 08/18/19 Insulin Glargine (LANTUS 3ML PEN) 100 Units/1 Ml Inj, 50 UNITS SQ HS 08/18/19 Medications in the ED Cefepime HCl 50 ml @ 100 mls/hr Q24H STAT IV Last administered on 03/01/20at 23:55; Admin Dose 100 MLS/HR; Start 03/01/20 at 23:28; Stop 03/01/20 at 23:57; Status DC Acetaminophen 650 mg STK-MED ONCE .ROUTE ; Start 03/01/20 at 23:54; Stop 03/01/20 at 23:48; Status DC DENY WILBURN DO Mar 02, 2020 02:57
[2020-03-02] MEDS ORDERED: AZITHROMYCIN 500MG/NS 250 ML 250 ML IV ONE (06:00)
[2020-03-02] MEDS ORDERED: DEXTROSE 50% SYRINGE 50 ML IV PRN (07:00)
--- NOTE | 2020-03-02 07:00 | NUR ---
BEDSIDE REPORT WITH BINH Yepez LVN PATIENT SLEEPING, EASILY AWAKENED. HOOKED TO [employer]. RECEIVING AZITHROMYCIN. AWAITING BED ASSIGNMENT
[2020-03-02 07:36] LABS: BASOPHILS % 0.2 % (0.0-1.0); EOSINOPHILS % 0.1 % (0.0-6.0); HEMATOCRIT 30.1 % (38.2-49.6); HEMOGLOBIN 9.5 g/dL (14.0-18.0); LYMPHOCYTES # (AUTO) 0.9 (1.0-3.2); LYMPHOCYTES % 5.8 % (18.0-39.1); MEAN CORPUSCULAR HEMOGLOBIN 28.7 pg (28-32); MEAN CORPUSCULAR HGB CONC 31.6 g/dL (31-35); MEAN CORPUSCULAR VOLUME 90.9 fL (81-99); MONOCYTES % 6.4 % (4.4-11.3); NEUTROPHILS # (AUTO) 13.9 (2.1-6.9); NEUTROPHILS % 86.9 % (38.7-80.0); PLATELET COUNT 165 x10e3/uL (140-360); RED BLOOD COUNT 3.31 x10e6/uL (4.3-5.7); RED CELL DISTRIBUTION WIDTH 15.6 % (11.7-14.4)
--- NOTE | 2020-03-02 07:38 | NUR ---
CBC/CMP OBTAINED AND SENT TO LAB
[2020-03-02 07:57] LABS: ALANINE AMINOTRANSFERASE 11 IU/L (0-55); ALBUMIN 2.7 g/dL (3.5-5.0); ALKALINE PHOSPHATASE 53 IU/L (40-150); ANION GAP 9.2 mmol/L (8-16); BLOOD UREA NITROGEN 15 mg/dL (7-26); BUN/CREATININE RATIO 14 (6-25); CALCIUM 7.4 mg/dL (8.4-10.2); CARBON DIOXIDE 23 mmol/L (22-29); CHLORIDE 108 mmol/L (98-107); CREATININE, SERUM 1.11 mg/dL (0.72-1.25); EST GLOMERULAR FILTRATION RATE > 60 ML/MIN (60-); GLUCOSE 181 mg/dL (74-118); POTASSIUM 4.2 mmol/L (3.5-5.1); SODIUM 136 mmol/L (136-145)
--- NOTE | 2020-03-02 08:30 | NUR ---
DR. Grupo HOLGUIN AT BEDSIDE EVALUATING PATIENT. REQUESTED A PA/LAT CHEST XRAY AND INCENTIVE SPIROMETER
[2020-03-02] MEDS: INSULIN REGULAR, HUMAN 100 UNIT/1 ML 3ML VIAL SQ SCH ×4 (08:49→20:25)
--- NOTE | 2020-03-02 08:49 | NUR ---
PATIENT SITTING UP EATING MEAL TRAY
--- NOTE | 2020-03-02 09:47 | Diagnostic Imaging Report ---
X-ray chest PA and lateral views History: Fever. Comparison: 08/18/2019 Findings: Central airways unremarkable. Heart size normal. No pleural effusion. No pneumothorax. No focal lung disease. Skeletal structures unremarkable for left rib fracture, likely old. Degenerative changes of the thoracic spine and shoulders especially the right. Upper abdomen unremarkable. Incidental findings: Status post median sternotomy and CABG. Impression: No acute cardiopulmonary disease on this exam. No significant change compared with the prior exam. Signed by: Bassem Rose MD on 03/02/2020 9:44 AM
[2020-03-02 09:59] LABS: ANISOCYTOSIS SLIGHT; PLATELET ESTIMATE ADEQUATE; RBC MORPHOLOGY COMMENT NORMAL
[2020-03-02 10:00] LABS: PLATELET MORPHOLOGY COMMENT RARE EDTA CLUMPING
--- NOTE | 2020-03-02 13:32 | NUR ---
called and spoke to kaye and getting stat clean
--- NOTE | 2020-03-02 13:52 | NUR ---
DR. NAVARRO AT BEDSIDE SPEAKING WITH PATIENT AND DAUGTHER ON PHONE UPDATING THEM
[2020-03-02 15:00] VITALS: BP 139/56
--- NOTE | 2020-03-02 15:00 | NUR ---
The pt. arrived to the unit from ER via stretcher and was acclimated to the room. The language line was used to complete the admit process. The pt. reports a headache 01/06 and will be provided medication for same.
[2020-03-02 15:52] VITALS: BP 139/56
--- NOTE | 2020-03-02 16:13 | History and Physical ---
HISTORY OF PRESENT ILLNESS: Mr. Boyer is a 74-year-old male with history of coronary artery disease, diabetes, hypertension, and hyperlipidemia, who yesterday underwent cystoscopy and then when he came back home, he stated he started feeling very bad and having fever, so he came to the emergency room. PAST MEDICAL HISTORY: He has coronary artery disease, diabetes, hypertension, hyperlipidemia, and CHF. ALLERGIES: NO KNOWN DRUG ALLERGIES. SOCIAL HISTORY: He does not smoke and he does not drink. He lives at home with his family. PAST SURGERY HISTORY: He had CABG and he had the prostate surgery. PHYSICAL EXAMINATION: GENERAL: Today, he is awake and alert. He is feeling a little better. VITAL SIGNS: Temperature is 99.2 and blood pressure is 123/51. HEART: Regular rate. LUNGS: Clear to auscultation. ABDOMEN: Distended and soft. LABORATORY DATA: On the blood work, white count is 16.04, hemoglobin 9.5, and hematocrit 30.1. COVID test nondetected. Potassium is 4.2, creatinine is 1.11, and glucose is 181. Urine shows 11 to 20 white blood cells. His blood cultures are pending. IMAGING DATA: Chest x-ray shows new patchy, hazy, bibasilar lung opacities that may be atelectasis or pneumonia. ASSESSMENT: 1. Sepsis secondary probably to urinary tract infection. 2. Urinary tract infection, status post recent cystoscopy. 3. Diabetes type 2 with hyperglycemia. 4. Coronary artery disease, status post coronary artery bypass graft. 5. Hypertension. 6. Hyperlipidemia. PLAN: At the present time is to admit the patient to the hospital. Urology consult with Dr. Carrasco. ID consult with Dr. Medina. Continue IV antibiotics. Restart all home medications. ADA diet and sliding scale with insulin. The overall prognosis remains guarded. I discussed the case with the patient. All questions were answered to his satisfaction. Kavita Parker MD KACIE/MODL /[id number]
[2020-03-02] MEDS: CEFEPIME 1GM/NS 0.9% 50 ML 50 ML IV SCH (17:30)
--- NOTE | 2020-03-02 19:04 | Progress Note ---
DATE: SUBJECTIVE: A pleasant 74-year-old, who had cystoscopy done a couple of days ago with Dr. Bertin Carrasco, comes in with fever and chills, not feeling well. The patient does have diabetes mellitus. The patient is being admitted, currently doing much better. Discussed with his family. LABORATORY DATA: White count 16.4, hemoglobin 9.5. Sodium 136, potassium 4.2 with a creatinine of 1.1, and glucose of 181. The patient is currently on insulin. PHYSICAL EXAMINATION: GENERAL: He is currently alert and oriented. VITAL SIGNS: Stable, currently afebrile. HEENT: He is not icteric. NECK: Supple. CHEST: Clear. HEART: S1-S2. ABDOMEN: Soft. Bowel sounds present. EXTREMITIES: No significant edema. SKIN: No rash. IMPRESSION: Sepsis on admission, UTI pyelonephritis. We will give him cefepime 1 g IV q.8, await blood cultures. Await urine culture. The patient MD TERRI Courtney/AMINATA /[id number]
[2020-03-02 19:30] VITALS: BP 116/58
[2020-03-02 20:00] VITALS: BP 116/58
[2020-03-02] MEDS: PIPERACILLIN/TAZO 2.25 GM 50 ML IV SCH (22:12)
[2020-03-02] MEDS ORDERED: SODIUM CHLORIDE 0.9% 250ML 250 ML ONE (22:23)
[2020-03-03] VITALS (9 sets, daily range): BP systolic 109–154; BP diastolic 55–70
[2020-03-03] MEDS: CEFEPIME 1GM/NS 0.9% 50 ML 50 ML IV SCH (01:03)
--- NOTE | 2020-03-03 05:30 | NUR ---
[place] [facility] PROVIDED VIA CASTILE SOAP WIPES
[2020-03-03] MEDS: PIPERACILLIN/TAZO 2.25 GM 50 ML IV SCH ×3 (05:37→21:13)
[2020-03-03 05:46] LABS: BASOPHILS % 0.2 % (0.0-1.0); EOSINOPHILS # (AUTO) 0.5 (0.0-0.4); EOSINOPHILS % 4.1 % (0.0-6.0); HEMATOCRIT 29.9 % (38.2-49.6); HEMOGLOBIN 9.9 g/dL (14.0-18.0); LYMPHOCYTES # (AUTO) 1.5 (1.0-3.2); MEAN CORPUSCULAR HEMOGLOBIN 29.9 pg (28-32); MEAN CORPUSCULAR HGB CONC 33.1 g/dL (31-35); MEAN CORPUSCULAR VOLUME 90.3 fL (81-99); MONOCYTES % 7.4 % (4.4-11.3); NEUTROPHILS # (AUTO) 9.7 (2.1-6.9); NEUTROPHILS % 75.9 % (38.7-80.0); PLATELET COUNT 164 x10e3/uL (140-360); RED BLOOD COUNT 3.31 x10e6/uL (4.3-5.7); RED CELL DISTRIBUTION WIDTH 15.4 % (11.7-14.4)
[2020-03-03 06:11] LABS: BLOOD UREA NITROGEN 13 mg/dL (7-26); BUN/CREATININE RATIO 13 (6-25); CALCIUM 8.3 mg/dL (8.4-10.2); CARBON DIOXIDE 25 mmol/L (22-29); CHLORIDE 108 mmol/L (98-107); CREATININE, SERUM 0.97 mg/dL (0.72-1.25); EST GLOMERULAR FILTRATION RATE > 60 ML/MIN (60-); GLUCOSE 184 mg/dL (74-118); SODIUM 139 mmol/L (136-145)
--- NOTE | 2020-03-03 07:12 | NUR ---
WALKING ROUNDS COMPLETED WITH PM NURSE. RECEIVED CHANGE OF SHIFT REPORT. PT IN STABLE CONDITION.
--- NOTE | 2020-03-03 07:12 | NUR ---
REPORT GIVEN TO DAYSHIFT NURSE. RESTING IN BED. NO SIGNS IV INFILTRATION. BED LOCKED AND IN LOW POSITION. CALL LIGHT WITHIN REACH. BED ALARM ACTIVATED.
[2020-03-03] MEDS: INSULIN REGULAR, HUMAN 100 UNIT/1 ML 3ML VIAL SQ SCH ×4 (08:13→21:13)
--- NOTE | 2020-03-03 10:13 | Progress Note ---
DATE: 03/03/2020 SUBJECTIVE: Mr. Boyer is a 74-year-old male with history of coronary artery disease, hypertension, hyperlipidemia, and diabetes, who went to see Dr. Carrasco and had a cystoscopy and the night after that he started feeling bad with fever and shaking, so he decided to come to the emergency room. He was started on IV antibiotics. PHYSICAL EXAMINATION: GENERAL: Today, he is awake and alert. He is feeling a little better. VITAL SIGNS: Temperature is 100, blood pressure 143/61. HEART: Regular rate and rhythm. LUNGS: Clear to auscultation. ABDOMEN: Soft. LABORATORY DATA: On the blood work, white count is 12.83, hemoglobin is 9.9, and hematocrit 29.9. Potassium 4.0, creatinine 0.97, and glucose 209. COVID test was negative. Urine showed 11-20 white blood cells. Blood cultures so far no growth. Chest x-ray, no acute findings. ASSESSMENT: 1. Sepsis secondary to urinary tract infection. 2. Urinary tract infection, status post cystoscopy. 3. Probably pyelonephritis. 4. Diabetes type 2 with hyperglycemia. 5. Coronary artery disease, status post coronary artery bypass graft. 6. Hypertension. 7. Hyperlipidemia. PLAN: Plan at the present time is to continue ADA diet, sliding scale with insulin. Continue IV antibiotics. He is on Zosyn. We are awaiting for urine culture and blood culture results. All this was discussed with the patient. I spent more than 30 minutes examining patient, reviewing overnight events, lab results, and discussing plan of care with him. MD KACIE Nelson/JUSTICEL /[id number]
--- NOTE | 2020-03-03 12:12 | NUR ---
circulator provided pastoral visit . pt expressed need for prayer and circulator offered prayer and blessings chaplain Ahsan
--- NOTE | 2020-03-03 16:39 | Progress Note ---
DATE: SUBJECTIVE: Mr. Boyer is feeling better. There is no new complaint. His blood cultures and urine cultures are still negative. PHYSICAL EXAMINATION: GENERAL: He is currently alert, oriented. VITAL SIGNS: Stable, currently afebrile. HEENT: He is not icteric. NECK: Supple. CHEST: Clear. HEART: No murmur. ABDOMEN: Soft. Bowel sounds present. EXTREMITIES: No edema. SKIN: No rash. IMPRESSION AND PLAN: Urinary tract infection, sepsis on admission. Continue with Zosyn. Recheck CBC. Recheck Chem panel. Await cultures. We will follow. Further recommendation depending on the clinical progress. MD TERRI Courtney/AMINATA /[id number]
[2020-03-04 04:49] VITALS: BP 126/62
[2020-03-04] MEDS: PIPERACILLIN/TAZO 2.25 GM 50 ML IV SCH (06:21)
--- NOTE | 2020-03-04 06:41 | NUR ---
[facility] PROVIDED VIA [facility] [employer] WIP[facility].
--- NOTE | 2020-03-04 07:14 | NUR ---
REPORT GIVEN TO DAYSHIFT NURSE. ALERT AND RESTING IN BED. NO SIGNS IV INFILTRATION. BED LOCKED AND IN LOW POSITION. CALL LIGHT WITHIN REACH.
--- NOTE | 2020-03-04 07:15 | NUR ---
BEDSIDE SHIFT REPORT RECEIVED FROM PM NURSE. PT IN STABLE CONDITION.
[2020-03-04 08:00] VITALS: BP 120/65
[2020-03-04] MEDS: INSULIN REGULAR, HUMAN 100 UNIT/1 ML 3ML VIAL SQ SCH (08:15)
[2020-03-04 09:00] VITALS: BP 120/65
--- NOTE | 2020-03-04 09:57 | NUR ---
Spoke with pt's daughter Jaci Boyer [phone] over the phone. Educated about IMM letter. She verbalized understanding. Signed copy placed in chart. Copy given to EDWIN Glass to give to pt/family.
[2020-03-04] MEDS ORDERED: BACTRIM DS TAB1 EACH PO (10:02)
--- NOTE | 2020-03-04 20:21 | Discharge Summary ---
HISTORY: Mr. Boyer is a 74-year-old male with history of coronary artery disease, hypertension, hyperlipidemia, and diabetes, who had seen Dr. Carrasco, had a cystoscopy, developed fever, so he came to the emergency room. He was started on IV antibiotics. He is doing better and the plan is to discharge him home on p.o. Bactrim with his Castorena catheter for 2 weeks and follow up with Dr. Carrasco as directed by him. PHYSICAL EXAMINATION: GENERAL: He is awake and alert. He is feeling better. VITAL SIGNS: Temperature is 98.8, blood pressure 120/65. HEART: Regular rate. LUNGS: Clear to auscultation. ABDOMEN: Soft. LABORATORY DATA: On the blood work white count went down to 12.83, hemoglobin 9.9, hematocrit 29.9. Glucose 208. COVID came back negative. Blood cultures negative. Urine culture so far no growth. DISCHARGE DIAGNOSES: 1. Sepsis secondary to urinary tract infection. 2. Urinary tract infection, status post cystoscopy. 3. Diabetes type 2 with hyperglycemia. 4. Coronary artery disease, status post coronary artery bypass grafting. 5. Hypertension. 6. Hyperlipidemia. PLAN: At the present time is to discharge the patient home. Continue ADA diet. Continue all home medications. He is going to be going home with Castorena catheter for 2 weeks. He is going to be on Bactrim DS 1 tablet twice a day for 2 weeks. He needs follow up with Dr. Carrasco as directed by him and follow up with Dr. Tapia in 1 week. He is to call me or come back to the emergency room if any recurrent problem. Please see home medication reconciliation list. All this was discussed with the patient. All questions were answered to satisfaction. MD KACIE Nelson/AMINATA /[id number]
== END 2020-03-04 11:23 | disposition home or self-care (01) | DRG 854 ==
LOC: ER 23:28 → ERHOLD 23:54 → MED/SURG2 03-02 15:00
PROVIDERS: ADMIT Internal Medicine; ATTEND Internal Medicine
PROC: BT141ZZ Fluoroscopy of Kidneys, Ureters and Bladder using Low Osmolar Contrast (ICD-10-PCS; principal; 2020-03-01)
PROC: 0TND8ZZ Release Urethra, Via Natural or Artificial Opening Endoscopic (ICD-10-PCS; 2020-03-01)
PROC: 0T7D8ZZ Dilation of Urethra, Via Natural or Artificial Opening Endoscopic (ICD-10-PCS; 2020-03-01)
DX: A41.9 Sepsis, unspecified organism (principal); N39.0 Urinary tract infection, site not specified; N10 Acute pyelonephritis; N17.9 Acute kidney failure, unspecified; B37.49 Other urogenital candidiasis; R65.20 Severe sepsis without septic shock; I11.0 Hypertensive heart disease with heart failure; I50.9 Heart failure, unspecified; E11.65 Type 2 diabetes mellitus with hyperglycemia; Z95.1 Presence of aortocoronary bypass graft; I25.10 Atherosclerotic heart disease of native coronary artery without angina pectoris; E78.5 Hyperlipidemia, unspecified; Z11.59 Encounter for screening for other viral diseases; D64.9 Anemia, unspecified; Z79.82 Long term (current) use of aspirin; Z79.4 Long term (current) use of insulin; N35.916 Unspecified urethral stricture, male, overlapping sites; N32.89 Other specified disorders of bladder; N40.1 Benign prostatic hyperplasia with lower urinary tract symptoms; N39.41 Urge incontinence; R35.1 Nocturia; K40.90 Unilateral inguinal hernia, without obstruction or gangrene, not specified as recurrent; N45.3 Epididymo-orchitis; R80.9 Proteinuria, unspecified; N32.81 Overactive bladder
CPT/HCPCS: 36415; 71045; 71046; 74420; 80048; 80053; 81001; 82948; 83605; 85025; 87040; 87086; 87186; 93005; 99284; C1758; J0456; J0692; J0696; J1817; J2001; J2405; J2543; J7030; J7050; U0002

== ENCOUNTER → 2020-03-01 | Day surgery (SDC) | payer OTHER ==
[~2020-03-01] MED LIST changes: +B&O 60MG R/S 60 MG SUPP PR ONE; +BACTRIM DS TAB1 EACH PO; +CEFTRIAXONE SOD 1 GM/NS 50 ML 50 ML IV ONE; +ETOMIDATE 2 MG/ML 10 ML INJ IV ONE; +IOPAMIDOL 300MG/ML 50ML INFUS..BTL IV ONE; +LIDOCAINE HCL 2% LOCAL INJ 5 ML SDV VIAL INJ ONE; +MEN'S 50 PLUS1 EACH PO; +ONDANSETRON HCL INJ 2MG/ML 2ML 2 MG/ML VIAL ONE; +PROPOFOL IV EMULSION 10 MG/ML 20 ML VIAL ONE; +SENOKOT-S TABL1 EACH PO; +SEVOFLURANE INHAL SOLN 250 ML PEN BTL ONE; +VITAMIN C1000 MG PO; +VITAMIN D3250 MCG PO
[2020-03-01 14:35] VITALS: BP 144/60
--- NOTE | 2020-03-10 03:32 | Operative Report ---
DATE OF PROCEDURE: 03/01/2020 SURGEON: Bertin Carrasco MD PREOPERATIVE DIAGNOSIS: Urethral stricture disease. POSTOPERATIVE DIAGNOSES: 1. Urethral stricture disease. 2. Complicated urinary tract infection. OPERATIONS PERFORMED: 1. Cystourethroscopy with calibration and dilation of the fossa navicularis urethral stricture disease (separate procedure performed for the fossa navicularis stricture). 2. Cystourethroscopy with direct vision internal urethrotomy (separate procedure performed for the severe urethral stricture of the bulbar urethra to the mid urethral region. 3. Cystourethroscopy with bilateral ureteral catheterization and retrograde ureteropyelography (separate procedure performed for the urinary tract infections). 4. Interpretation of retrograde ureteropyelography. 5. Interpretation of cystography. 6. Supervision of fluoroscopy, no radiologist present. ANESTHESIA: General. COMPLICATIONS: None. CLINICAL SUMMARY: Brian Boyer is a 74-year-old man, who underwent a transurethral resection of the prostate on August 20, 2019. Initially, the patient did very well, but then had decreased urinary force of stream. He developed urinary tract infections. He has been given culture specific antibiotics and is brought for the above procedure. He is aware of the risks of bleeding, infection, injury to adjacent structures, need for further procedures, and elected to proceed. OPERATIVE PROCEDURE IN DETAIL: Informed consent was verified. Brian Boyer was properly identified, taken to the operating room, placed on the cystoscopy table in supine position. Anesthesia was uneventfully begun. The patient was then carefully and gently repositioned in the dorsal lithotomy position with all pressure points well padded. His genitalia were prepared and draped in usual sterile fashion. The cystoscope sheath with a visual obturator in place was atraumatically inserted into the patient's urethra. There was a stricture of the fossa navicularis. The stricture was calibrated in 16-Togolese in size and progressively dilated to 28-Togolese in size with female sounds. We then inserted into the direct vision urethra and guided to the level of the mid urethra where there was a urethral stricture present. We utilized the cold knife to incise the 12 o'clock position. The stricture extended for approximately 3 cm. The incision was performed following placing guidewire in order to ensure access to the channel. The incision at the 12 o'clock position was carried out from the mid urethra to the bulbar region. Once the incision was completed, then the channel was wide open. The cystoscope sheath was inserted under direct vision past the region that we dilated through normal sphincteric region into the patient's prostate bed, which was wide open following transurethral resection of the prostate. It was also completely reepithelialized. Panendoscopy of the bladder revealed grade 2 trabeculations, but no tumors, no stones, and no diverticula. Normally positioned configured ureteral orifices were identified. Urine sample from the bladder was obtained and sent for culture and sensitivity. An 8-Togolese catheter was used to cannulate each ureter and retrograde ureteropyelograms were performed. Interpretation of retrograde ureteropyelography contrast was instilled in retrograde fashion bilaterally. There were no tumors, no stones, and no diverticula. Unobstructed drainage was observed bilaterally fluoroscopically. J hooking was noted. The cystoscope was withdrawn. A 24-Togolese Castorena catheter was then placed over the guidewire after modifying it to . The balloon was inflated. The catheter was irrigated to and fro to ensure it worked properly. The belladonna and opium suppository in place revealed a large least 40 g prostate, smooth and nonfluctuant without any nodules. The patient was then uneventfully reversed from anesthesia and taken to recovery room in stable condition. There were no complications during the procedure. He tolerated the procedure well. Explicit postop instructions were given. We will plan on returning the patient to the office in approximately two weeks to remove his Castorena catheter. MD GEMINI Selby/AMINATA /[id number]
== END | disposition home or self-care (01) ==
LOC: OR 10:50
PROVIDERS: ATTEND Urology
DX: N35.916 Unspecified urethral stricture, male, overlapping sites (principal); B37.49 Other urogenital candidiasis; N32.89 Other specified disorders of bladder; N40.1 Benign prostatic hyperplasia with lower urinary tract symptoms; N39.41 Urge incontinence; R35.1 Nocturia; K40.90 Unilateral inguinal hernia, without obstruction or gangrene, not specified as recurrent; N45.3 Epididymo-orchitis; R80.9 Proteinuria, unspecified; N32.81 Overactive bladder; I25.810 Atherosclerosis of coronary artery bypass graft(s) without angina pectoris; I10 Essential (primary) hypertension; E11.9 Type 2 diabetes mellitus without complications; Z01.810 Encounter for preprocedural cardiovascular examination; Z01.812 Encounter for preprocedural laboratory examination; Z11.59 Encounter for screening for other viral diseases; Z79.82 Long term (current) use of aspirin; Z79.4 Long term (current) use of insulin; Z95.5 Presence of coronary angioplasty implant and graft; Z95.1 Presence of aortocoronary bypass graft
CPT/HCPCS: 36415; 52005; 52276; 74420; 82948; 87086; 87186; 93005; C1758; J0696; J2001; J2405; J2704; Q9967; U0002

== ENCOUNTER 2020-06-11 18:30 | Inpatient (IN) | payer MEDICARE ==
[~2020-06-11] VITALS: Ht 162.6 cm; Wt 80.7 kg
[~2020-06-11 18:30] MED LIST changes: -B&O 60MG R/S 60 MG SUPP PR ONE; -INDIGOTINDISULFONATE SODIUM 8 MG/ML AMP IJ ONE; -IOPAMIDOL 300MG/ML 50ML INFUS..BTL IV ONE; -MEROPENEM 1GM 100 ML IV ONE
[2020-06-11] MEDS ORDERED: ACETAMINOPHEN 325 MG TAB PO STA (18:34)
[2020-06-11] MEDS ORDERED: SODIUM CHLORIDE 0.9% 1000ML 1,000 ML IV STA ×3 (18:34→21:32)
--- NOTE | 2020-06-11 18:38 | Emergency Department Note ---
History of Present Illnes History of Present Illness Chief Complaint: Sepsis History of Present Illness This is a 74 year old male brought from home s/p urologic procedure. Patient with AMS and confusional state prior to arrival with low-grade fever. Historian: Patient, Family Member Arrival Mode: Car Radiation: Reports non-radiation Severity: moderate Onset quality: gradual Duration (how long): day(s) (1) Timing of current episode: constant Progression: worsening Chronicity: new Context: Reports recent surgery Relieving factors: none Exacerbating factors: none Associated symptoms: Reports weakness Treatments prior to arrival: none Previous service: tests performed, re-evaluation Past Medical/Family History Physician Review I have reviewed the patient's past medical and family history. Any updates have been documented here. Past Medical History Recent Fever: Yes Clinical Suspicion of Infectio: Yes New/Unexplained Change in Ment: Yes Past Medical History: Hypertension, Diabetes, Hyperlipedemia Other Medical History: PROSTATITIS, HLD Past Surgical History: CABG Other Surgery: Prostate problems Cystoscopy Social History Smoking Cessation: Never Smoker Alcohol Use: None Any Illegal Drug Use: No Review of Systems Review of Systems Constitutional: Reports fever EENTM: Reports no symptoms Cardiovascular: Reports no symptoms Respiratory: Reports no symptoms Gastrointestinal: Reports no symptoms Genitourinary: Reports no symptoms Musculoskeletal: Reports no symptoms Integumentary: Reports no symptoms Neurological: Reports weakness Psychological: Reports no symptoms Endocrine: Reports no symptoms Hematological/Lymphatic: Reports no symptoms Physical Exam Related Data Allergies: Coded Allergies: No Known Allergies (Unverified , 08/18/19) Triage Vital Signs Vital Signs Date Time Temp Pulse Resp B/P (MAP) Pulse Ox O2 Delivery O2 Flow Rate FiO2 06/11/20 19:00 102.6 112 15 105/68 100 Room Air Vital signs reviewed: Yes Physical Exam CONSTITUTIONAL Constitutional: Present well-developed, Present obese, Present ill appearing HENT HENT: Present normocephalic, Present atraumatic, Present oropharynx clear /moist, Present nose normal HENT L/R: Present left ext ear normal, Present right ext ear normal EYES Eyes: Reports PERRL, Reports conjunctivae normal NECK Neck: Present ROM normal PULMONARY Pulmonary: Present effort normal, Present breath sounds normal CARDIOVASCULAR Cardiovascular: Present heart sounds normal, Present tachycardia GASTROINTESTINAL Abdominal: Present soft, Present nontender, Present bowel sounds normal GENITOURINARY Genitourinary: Present exam deferred SKIN Skin: Present warm, Present dry MUSCULOSKELETAL Musculoskeletal: Present ROM normal NEUROLOGICAL Neurological: Present alert, Present oriented x 3, Present no gross motor or sensory deficits PSYCHOLOGICAL Psychological: Present mood/affect normal, Present judgement normal Results Laboratory Lab results reviewed: Yes Laboratory comments Laboratory Tests Test 06/11/20 19:20 White Blood Count 12.22 x10e3/uL (4.8-10.8) Red Blood Count 3.55 x10e6/uL (4.3-5.7) Hemoglobin 10.1 g/dL (14.0-18.0) Hematocrit 31.7 % (38.2-49.6) Mean Corpuscular Volume 89.3 fL (81-99) Mean Corpuscular Hemoglobin 28.5 pg (28-32) Mean Corpuscular Hemoglobin Concent 31.9 g/dL (31-35) Red Cell Distribution Width 14.6 % (11.7-14.4) Platelet Count 277 x10e3/uL (140-360) Neutrophils (%) (Auto) 84.2 % (38.7-80.0) Lymphocytes (%) (Auto) 7.4 % (18.0-39.1) Monocytes (%) (Auto) 6.3 % (4.4-11.3) Eosinophils (%) (Auto) 1.2 % (0.0-6.0) Basophils (%) (Auto) 0.3 % (0.0-1.0) Neutrophils # (Auto) 10.3 (2.1-6.9) Lymphocytes # (Auto) 0.9 (1.0-3.2) Monocytes # (Auto) 0.8 (0.2-0.8) Eosinophils # (Auto) 0.2 (0.0-0.4) Basophils # (Auto) 0.0 (0.0-0.1) Absolute Immature Granulocyte (auto 0.07 x10e3/uL (0-0.1) Sodium Level 138 mmol/L (136-145) Potassium Level 4.5 mmol/L (3.5-5.1) Chloride Level 101 mmol/L (98-107) Carbon Dioxide Level 27 mmol/L (22-29) Anion Gap 14.5 mmol/L (8-16) Blood Urea Nitrogen 21 mg/dL (7-26) Creatinine 1.35 mg/dL (0.72-1.25) Estimat Glomerular Filtration Rate 52 ML/MIN (60-) BUN/Creatinine Ratio 16 (6-25) Glucose Level 113 mg/dL (74-118) Lactic Acid Level 1.5 mmol/L (0.5-2.0) Calcium Level 8.8 mg/dL (8.4-10.2) Total Bilirubin 0.3 mg/dL (0.2-1.2) Aspartate Amino Transf (AST/SGOT) 15 IU/L (5-34) Alanine Aminotransferase (ALT/SGPT) 14 IU/L (0-55) Alkaline Phosphatase 70 IU/L (40-150) Creatine Kinase 66 IU/L (30-200) Creatine Kinase MB 1.00 ng/mL (0-5.0) Troponin I 0.037 ng/mL (0-0.300) B-Type Natriuretic Peptide 92.5 pg/mL (0-100) Total Protein 6.5 g/dL (6.5-8.1) Albumin 3.0 g/dL (3.5-5.0) Globulin 3.5 g/dL (2.3-3.5) Albumin/Globulin Ratio 0.9 (0.8-2.0) Imaging Imaging results reviewed: Yes Impressions [place] [address] Patient Name: TORI TRIPLETT MR #: [id number] : 1945 Age/Sex: 74/M Req #: [id number] Adm Physician: Ordered by: FUENTES KENNY DO Report #: [id number] Location: ER Room/Bed: Procedure: [id number] DX/CHEST SINGLE (PORTABLE) Exam Date: 06/11/20 Exam Time: 1851 REPORT STATUS: Signed EXAMINATION: CHEST SINGLE (PORTABLE) INDICATION: Sepsis. COMPARISON: Radiograph dated 03/02/2020 FINDINGS: TUBES and LINES: None. LUNGS: The lungs are mildly hyperinflated. Mild patchy density in the right lung base. Linear atelectasis versus scarring in the left lung disease. PLEURA: No pleural effusion or pneumothorax. HEART AND MEDIASTINUM: Cardiac size is mildly enlarged. BONES AND SOFT TISSUES: No acute osseous lesion. Median sternotomy wires again observed. Remote fracture posterior lateral left sixth rib. UPPER ABDOMEN: No free air under the diaphragm. IMPRESSION: Patchy density in the lung bases with a similar appearance to the prior examination of February 2020, most likely subsegmental atelectasis. Signed by: Dr. Sam Varela M.D. on 06/11/2020 7:13 PM Dictated By: SHIVANI VARELA MD, MD 12 Transcribed By: KENZIE on 06/11/201912 COPY TO: FUENTES KENNY DO~ [place] [address] Patient Name: TORI TRIPLETT MR #: [id number] : 1945 Age/Sex: 74/M Req #: [id number] Adm Physician: Ordered by: FUENTES KENNY DO Report #: [id number] Location: ER Room/Bed: _ Procedure: [id number] CT/CT BRAIN WO Exam Date: 06/11/20 Exam Time: 1851 REPORT STATUS: Signed EXAMINATION: Head CT without contrast. HISTORY:Altered mental status. COMPARISON:None. TECHNIQUE: Multidetector axial images were obtained from the foramen magnum to the vertex without contrast. The images were reconstructed using brain and bone algorithms. Thin section brain images were reformatted into coronal and sagittal planes. Dose modulation, iterative reconstruction, and/or weight based adjustment of the mA/kV was utilized to reduce the radiation dose to as low as reasonably achievable. Intravenous contrast: None IMAGE QUALITY: Acceptable. FINDINGS: Skull/scalp: No lytic or blastic. lesions. No surgical changes. Parenchyma: No nonspecific bilateral frontoparietal patchy white matter hypodensity are likely related to small vessel ischemic changes. No acute hemorrhage, mass or acute major vascular territorial infarct. Arteries: No density suggestive of thrombosis. Atherosclerotic calcification in bilateral carotid siphon and V4 segment of left vertebral artery. Dural sinuses: No abnormal density suggestive of thrombosis. Ventricles: Mild compensated dilatation due to volume loss. No hydrocephalus. Extra-axial spaces: No abnormal density. Brain volume: Mild generalized cerebral volume loss. Craniocervical junction: No mass, Chiari malformation, or basilar invagination. Sella: No mass. Paranasal/mastoid sinuses: Imaged portions unremarkable. IMPRESSION: No acute intracranial abnormality. Mild supratentorial white matter microvascular ischemic changes. Mild generalized cerebral volume loss. Signed by: Dr. Kaley Camara M.D. on 06/11/2020 7:45 PM Dictated By: KALEY CAMARA MD 44 Transcribed By: KENZIE on 06/11/201944 COPY TO: FUENTES KENNY DO~ Critical Care Time Total Critical Care Time (min): 31 Critcal care necessary due to: sepsis Critcal care time spent by me: develop tx plan w patient/surrogate, evaluation patient response to tx, examination of patient, obtaining hx from patient/surrogate, order/perform tx or interventions, order/review laboratory studies, order/review radiographic studies, re-evaluation of patient condition Assessment & Plan Medical Decision Making MDM Diff Dx : sepsis, UTI, PNA, COVID-19 URI, CVA Reassessment Reassessment time: 21:59 Reassessment Bedside volume re-assessment done . BP at 125/54 with improved hemodynamics Assessment & Plan Final Impression: (1) UTI (urinary tract infection) (2) Severe sepsis Home Meds Reported Medications Digoxin (DIGOXIN) 125 Mcg Tablet, 0.125 MG PO DAILY, #30 TAB 02/23/20 Ascorbic Acid (VITAMIN C) 1,000 Mg Tablet, 1000 MG PO BID 02/23/20 Multivit-Min/Folic/Vit K/Lycop (Men's 50 Plus Multivitamin Tab) 1 Each Tablet, 1 TAB PO DAILY 02/23/20 Cholecalciferol (Vitamin D3) (Vitamin D3) 250 Mcg Tablet, 1000 INTLU PO DAILY 02/23/20 Lisinopril (LISINOPRIL) 2.5 Mg Tablet, 2.5 MG PO DAILY, #30 TAB 08/18/19 Metoprolol Succinate (METOPROLOL SUCCINATE) 25 Mg Tab.er.24h, 25 MG PO BID 08/18/19 Aspirin (ASPIR 81) 81 Mg Tablet.dr, 81 MG PO DAILY 08/18/19 Tamsulosin Hcl* (FLOMAX*) 0.4 Mg Cap, 0.4 MG PO BID, #30 CAP 08/18/19 Pregabalin (LYRICA) 50 Mg Cap, 100 MG PO BID, #30 TAB 08/18/19 Finasteride (FINASTERIDE) 5 Mg Tablet, 5 MG PO DAILY, #30 TAB 08/18/19 Atorvastatin Calcium (ATORVASTATIN CALCIUM) 20 Mg Tablet, 40 MG PO HS, #30 TAB 08/18/19 Insulin Lispro (HUMALOG) 100 Unit/1 Ml Insuln.pen, 10 UNITS SQ ACHS 08/18/19 Insulin Glargine (LANTUS 3ML PEN) 100 Units/1 Ml Inj, 60 UNITS SQ HS 08/18/19 Discontinued Reported Medications Sulfamethoxazole/Trimethoprim (BACTRIM DS TABLET) 1 Each Tablet, 1 TAB PO BID, #30 TAB 03/04/20 Sennosides/Docusate Sodium (SENOKOT-S TABLET) 1 Each Tablet, 1 TAB PO HS, TAB 02/23/20 FUENTES KENNY DO Jun 11, 2020 18:38
[2020-06-11] MEDS ORDERED: ASPIRIN 81 MG CHEW TAB PO ONE (18:45)
--- NOTE | 2020-06-11 19:16 | Diagnostic Imaging Report ---
EXAMINATION: CHEST SINGLE (PORTABLE) INDICATION: Sepsis. COMPARISON: Radiograph dated 03/02/2020 FINDINGS: TUBES and LINES: None. LUNGS: The lungs are mildly hyperinflated. Mild patchy density in the right lung base. Linear atelectasis versus scarring in the left lung disease. PLEURA: No pleural effusion or pneumothorax. HEART AND MEDIASTINUM: Cardiac size is mildly enlarged. BONES AND SOFT TISSUES: No acute osseous lesion. Median sternotomy wires again observed. Remote fracture posterior lateral left sixth rib. UPPER ABDOMEN: No free air under the diaphragm. IMPRESSION: Patchy density in the lung bases with a similar appearance to the prior examination of February 2020, most likely subsegmental atelectasis. Signed by: Dr. Sam Ritchie M.D. on 06/11/2020 7:13 PM
[2020-06-11 19:43] LABS: BASOPHILS % 0.3 % (0.0-1.0); EOSINOPHILS # (AUTO) 0.2 (0.0-0.4); EOSINOPHILS % 1.2 % (0.0-6.0); HEMATOCRIT 31.7 % (38.2-49.6); HEMOGLOBIN 10.1 g/dL (14.0-18.0); LYMPHOCYTES # (AUTO) 0.9 (1.0-3.2); LYMPHOCYTES % 7.4 % (18.0-39.1); MEAN CORPUSCULAR HEMOGLOBIN 28.5 pg (28-32); MEAN CORPUSCULAR HGB CONC 31.9 g/dL (31-35); MEAN CORPUSCULAR VOLUME 89.3 fL (81-99); MONOCYTES # (AUTO) 0.8 (0.2-0.8); MONOCYTES % 6.3 % (4.4-11.3); NEUTROPHILS # (AUTO) 10.3 (2.1-6.9); NEUTROPHILS % 84.2 % (38.7-80.0); PLATELET COUNT 277 x10e3/uL (140-360); RED BLOOD COUNT 3.55 x10e6/uL (4.3-5.7); RED CELL DISTRIBUTION WIDTH 14.6 % (11.7-14.4)
[2020-06-11] MEDS: MEROPENEM 1GM 100 ML IV SCH (19:43)
--- NOTE | 2020-06-11 19:48 | Diagnostic Imaging Report ---
EXAMINATION: Head CT without contrast. HISTORY:Altered mental status. COMPARISON:None. TECHNIQUE: Multidetector axial images were obtained from the foramen magnum to the vertex without contrast. The images were reconstructed using brain and bone algorithms. Thin section brain images were reformatted into coronal and sagittal planes. Dose modulation, iterative reconstruction, and/or weight based adjustment of the mA/kV was utilized to reduce the radiation dose to as low as reasonably achievable. Intravenous contrast: None IMAGE QUALITY: Acceptable. FINDINGS: Skull/scalp: No lytic or blastic. lesions. No surgical changes. Parenchyma: No nonspecific bilateral frontoparietal patchy white matter hypodensity are likely related to small vessel ischemic changes. No acute hemorrhage, mass or acute major vascular territorial infarct. Arteries: No density suggestive of thrombosis. Atherosclerotic calcification in bilateral carotid siphon and V4 segment of left vertebral artery. Dural sinuses: No abnormal density suggestive of thrombosis. Ventricles: Mild compensated dilatation due to volume loss. No hydrocephalus. Extra-axial spaces: No abnormal density. Brain volume: Mild generalized cerebral volume loss. Craniocervical junction: No mass, Chiari malformation, or basilar invagination. Sella: No mass. Paranasal/mastoid sinuses: Imaged portions unremarkable. IMPRESSION: No acute intracranial abnormality. Mild supratentorial white matter microvascular ischemic changes. Mild generalized cerebral volume loss. Signed by: Dr. Kaley Camara M.D. on 06/11/2020 7:45 PM
--- OUTSIDE RECORDS SUMMARY | 2020-06-11 19:49 | XMS REPORT | Continuity of Care Document ---
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 Adverse Reaction Info Not Available Adverse Reaction 07/01/2019 [facility] Immunizations No Data Provided for This Section [...] Value Date Comments Source Weight 180 07/01/2019 [facility] Heart Rate 80 07/01/2019 [facility] Diastolic (mm Hg) 68 07/01/2019 [facility] Systolic (mm Hg) 120 07/01/2019 [facility] Encounters No Data Provided for This Section [...]
--- OUTSIDE RECORDS SUMMARY | 2020-06-11 19:50 | XMS REPORT | Continuity of Care Document ---
Author Author [facility] t Organization [facility] Address [address] [place] [address] Phone Unavailable Care Team Providers Care Harvest Supervisor Name Role Phone SMITH PAULA, MD MARIE PCP FUENTES KENNY Attphys Unavailable SMITH, AKI Attphys Unavailable HAMPEL, BERTIN Attphys Unavailable SMITH, AKI Admphys Unavailable Payers Payer Name Policy Type Policy Number Effective Date Expiration Date [facility] [id number] 2019 00:00:00 [facility] Problems Condition Name Condition Details Condition Category Status Onset Date Resolution Date Last Treatment Date Treating Clinician Comments Source Severe sepsis Problem Active [facility] Urinary tract infection Problem Active [facility] Ischemic cardiomyopathy Isch emic cardiomyopathy Active Diagnosis 01/31/2020 Alokdov Chintan Diagnosis Active 2020-01-31 02: 58:51 Jerome Gaines 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 without congestive heart failure Active Diagnosis 01/31/2020 Chintan Woodson Diagnosis Active 2020-01-31 02:58:51 [facility] 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 II, uncontrolled 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 II, uncontrolled Active Problem [facility]/31[facility]2020 [facility] Active 2020-01-31 02:58:51 Bina locke Eder Pure hypercholesterolemia Pure hypercholesterolemia Active Diagnosis 01/31/2020 [facility] Diagnosis Active 2020-01-31 02:58:51 [facility] Obesity (BMI 30.0-34.9) Obes ity (BMI 30.0-34.9) Active Problem 01/31/2020 [facility] Problem Active 2020-01-31 02:58 :51 [facility] Precordial pain Prec ordial pain Active Diagnosis 01/31/2020 [facility] Diagnosis Active 2020-01-31 02:58:51 [facility] Breath shortness [place] th shortness Active Diagnosis 01/31/2020 [facility] Diagnosis Active 2020-01-31 02:58:51 [facility] Other symptoms involving cardiovascular system Other symptoms involving cardiovascular system Active Diagnosis 01/31/2020 [facility] Diagnosis Active 2020-01-31 02:58:51 [facility] 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 Atheroscler of [place]changa artery of both legs with intermit claudication Active Diagnosis 01/31/2020 [facility] Diagnosis Active 2020-01-31 02:58:51 [facility] Hx of CABG Hx o f CABG Active Diagnosis 01/31/2020 [facility] Diagnosis Active 2020-01-31 02:58:51 M blossom Gaines Ex-smoker Ex-s moker Active Diagnosis 01/31/2020 [facility] Diagnosis Active 2020-01-31 02:58:51 M blossom Gaines Allergies, Adverse Reactions, Alerts Allergy Name Allergy Type Status Severity Reaction(s) Onset Date Inacti ve Date Treating Clinician Comments Source N.K.D.A. N.K.D.A. Active Info Not Available 2019-07-01 00:00:00 [facility] No Known Allergies DA Active U 2018-11-25 00:00:00 [facility] No Known Allergies DA Active U 2014-10-01 00:00:00 [facility] No Known Allergies DA Active U 2012-08-18 00:00:00 [facility] Social History Social Habit Start Date Stop Date Quantity Comments Source Sex Assigned At 1945 00:00:00 1945 00:00:00 Male [facility] Medications Ordered Medication Name Filled Medication Name Start Date Stop Da te Current Medication? Ordering Clinician Indication Dosage Frequency Signature (SIG) Comments Components Source Atorvastatin Calcium 2020-01-31 02:58:51 Yes Ahmed Ahmed 1 tablet [facility] Finasteride 2020-01-31 02:58:51 Yes Ahmed Ahmed 1 tablet [facility] Metoprolol Tartrate 2020-01-31 02:58:51 Yes Ahmed Ahmed 1 tablet with food [facility] ASPRIN 81 2020-01-31 02:58:51 Yes Ahmed Ahmed not defined [facility] Melatonin 2020-01-31 02:58:51 Yes Ahmed Ahmed as directed [facility] Pantoprazole Sodium 2020-01-31 02:58:51 Yes Ahmed Ahmed 1 tablet [facility] Nitrofurantoin 2020-01-31 02:58:51 Yes Ahmed Ahmed 10 ml with food [facility] Metformin HCl 2020-01-31 02:58:51 Yes Ahmed Ahmed 1 tablet with a meal [facility] Clopidogrel Bisulfate 2020-01-31 02:58:51 Yes Ahmed Ahmed 1 tablet [facility] Digoxin 2020-01-31 02:58:51 Yes Ahmed Ahmed as di rected [facility] Lisinopril 2020-01-31 02:58:51 Yes Ahmed Ahmed 1 tablet [facility] Tamsulosin HCl 2020-01-31 02:58:51 Yes Ahmed Ahmed 1 capsule [facility] Mens One Daily 2020-01-31 02:58:51 Yes Ahmed Ahmed not defined [facility] Tramadol HCl 2020-01-31 02:58:51 Yes Ahmed Ahmed 5 ml as needed [facility] Ascorbic Acid (Vitamin C) 1,000 Mg TABLET Ascorbic Aci d (Vitamin C) 1,000 Mg TABLET Yes 1000 Twice A Day [facility] Aspirin (Aspir 81) 81 Mg TABLET. Aspirin (Aspir 81) 81 Mg TABLET. Yes 81 Daily [facility] Atorvastatin Calcium Atorvastatin Calcium Yes 40 Bedtime [facility] Cholecalciferol (Vitamin D3) (Vitamin D3) 250 Mcg TABL ET Cholecalciferol (Vitamin D3) (Vitamin D3) 250 Mcg TABLET Yes 1000 Daily [facility] Digoxin Digoxin Yes .125 Daily [facility] Finasteride Finasteride Yes 5 Daily [facility] Insulin Glargine (Lantus 3ML Pen) 100 Units/1 Ml INJ I nsulin Glargine (Lantus 3ML Pen) 100 Units/1 Ml INJ Yes 50 Bedtime [facility] Insulin Lispro (Humalog) 100 Unit/1 Ml INSULN.PEN Insu ashley Lispro (Humalog) 100 Unit/1 Ml INSULN.PEN Yes 5 Three Times A Day [facility] Lisinopril Lisinopril Yes 2.5 Daily [facility] Metoprolol Succinate Metoprolol Succinate Yes 25 Twice A Day [facility] Multivit-Min/Folic/Vit K/Lycop (Men's 50 Plus Multivit sullivan Tab) 1 Each TABLET Multivit-Min/Folic/Vit K/Lycop (Men's 50 Plus Multivitamin Tab) 1 Each TABLET Yes 1 Daily [facility] Pregabalin (Lyrica) 50 Mg CAP Pregabalin (Lyrica) 50 Mg CAP Yes 100 Twice A Day [facility] Sennosides/Docusate Sodium (Senokot-S Tablet) 1 Each T ABLET Sennosides/Docusate Sodium (Senokot-S Tablet) 1 Each TABLET Yes 1 Bedtime [facility] Sulfamethoxazole/Trimethoprim (Bactrim Ds Tablet) 1 Ea ch TABLET Sulfamethoxazole/Trimethoprim (Bactrim Ds Tablet) 1 Each TABLET Yes 1 Twice A Day [facility] Tamsulosin Hcl (Flomax*) 0.4 Mg CAP Tamsulosin Hcl (Flomax*) 0.4 Mg C AP Yes .4 Twice A Day [facility] Cholecalciferol (Vitamin D3) (Vitamin D3) 2,000 Unit T ABLET Cholecalciferol (Vitamin D3) (Vitamin D3) 2,000 Unit TABLET 2020-02-23 00:00:00 No Daily [facility] Metformin Hcl Metformin Hcl 2020-02-23 00:00:00 No 1000 Twice A Day [facility] Multivitamin/Iron/Folic Acid (Centrum Adults Tablet) 1 Each TABLET Multivitamin/Iron/Folic Acid (Centrum Adults Tablet) 1 Each TABLET 2020-02-23 00:00:00 No 1 Daily [facility] Digoxin Digoxin 2019-08-22 00:00:00 No .125 Daily [facility] Cholecalciferol (Vitamin D3) (Vitamin D) 400 Unit CAPS ULE Cholecalciferol (Vitamin D3) (Vitamin D) 400 Unit CAPSULE 2019-08-18 00:00:00 No Daily [facility] Lisinopril Lisinopril 2019-08-18 00:00:00 No 10 Bed time [facility] Vital Signs Vital Name Observation Time Observation Value Comments Source Body Temperature 2020-03-04 09:00:00 98.8 [degF] [facility] Weight 2020-03-03 00:08:00 178.31 [lb_av] [facility] BMI (Body Mass Index) 2020-03-03 00:08:00 30.6 kg/m2 [facility] Weight 2019-07-01 16:30:00 [facility] Heart Rate 2019-07-01 16:30:00 [facility] Diastolic (mm Hg) 2019-07-01 16:30:00 [facility] Systolic (mm Hg) 2019-07-01 16:30:00 Chris riatabitha Gaines Procedures Procedure Date / Time Performed Performing Clinician [facility] e X-ray of chest, two views 2020-03-02 00:00:00 [facility] EXCISION OF PROSTATE, ENDO 2019-08-20 00:00:00 C HI [facility] DILATION OF BILATERAL URETERS, ENDO 2019-08-20 00:00:00 [facility] FLUOROSCOPY OF KIDNEY, URETER & BLADDER USING L OSM CO NTRAST 2019-08-20 00:00:00 [facility] [place] DILATION OF URETHRA, ENDO 2019-08-20 00:00:00 [facility] X-ray of chest, two views 2019-08-18 00:00:00 BERTIN CARRASCO [facility] Plan of Care Planned Activity Planned Date Details Comments Source Instructions [facility] Encounters Start Date/Time End Date/Time Encounter Type Admission Type [facility] Care Department Encounter ID Source 2020-03-01 23:54:00 2020-03-04 11:23:00 Discharged Inpatient 1 SMITH [facility] [id number] [facility] 2020-03-01 10:50:00 2020-03-01 10:50:00 Registered Surgical Day Care [facility] [id number] [facility] 2019-08-20 09:28:00 2019-08-23 15:45:00 Discharged Inpatient 3 BERTIN CARRASCO [facility] [id number] [facility] 2019-07-01 11:30:00 2019-07-01 11:30:00 Outpatient [facility] [id number] [employer] 2019-06-06 14:29:00 2019-06-06 14:29:00 Outpatient [facility] [id number] [employer] 2018-12-24 11:38:00 2018-12-24 11:38:00 Registered Clinic 3 [facility] [id number] [facility] Results Test Description Test Time Test Comments Results Result Comments Source CHEST SINGLE (PORTABLE) 2020-06-11 19:10:00 [facility] 1945 Sex: M [facility] [address] [address] Patient Name: TORI TRIPLETT MR #: [id number] : 1945 Age/Sex: 74/M Req #: [id number] Adm Physician: Ordered by: FUENTES KENNY DO Report #: [id number] Location: ER Room/Bed: Procedure: [id number] DX/CHEST SINGLE (PORTABLE) Exam Date: 06/11/20 Exam Time: 1851 REPORT STATUS: Signed EXAMINATION: CHEST SINGLE (PORTABLE) INDICATION: Sepsis. COMPARISON: Radiograph dated 03/02/2020 FINDINGS: TUBES and LINES: None. LUNGS: The lungs are mildly hyperinflated. Mild patchy density in the right lung base. Linear atelectasis versus scarring in the left lung disease. PLEURA: No pleural effusion or pneumothorax. HEART AND MEDIASTINUM: Cardiac size is mildly enlarged. BONES AND SOFT TISSUES: No acute osseous lesion. Median sternotomy wires again observed. Remote fracture posterior lateral left sixth rib. UPPER ABDOMEN: No free air under the diaphragm. IMPRESSION: Patchy density in the lung bases with a similar appearance to the prior examination of February 2020, most likely subsegmental atelectasis. Signed by: Dr. Sam Ritchie M.D. on 06/11/2020 7:13 PM Dictated By: SHIVANI RITCHIE MD, MD 12 Transcribed By: KENZIE on 06/11/201912 COPY TO: FUENTES KENNY DO Capillary blood glucose measurement by glucometer (mas s/volume) 2020-03-03 19:31:00 Test Item Bedside Glucose (test code = 32942-5) 208 70-120 Meter ID: [id number] leukocytes automated count (number/volume)2020-03-03 05:15:00* Test Item Value Reference Range Interpretation Comments White Blood Count (test code = 6690-2) 12.83 4.8-10.8 [facility] erythrocytes automated count (number/volume)2020-03-03 05:15:00* Test Item Value Reference Range Interpretation Comments Red Blood Count (test code = 789-8) 3.31 4.3-5.7 [facility] (moles/volume)2020-03-03 05:15:00* Test Item Value Reference Range Interpretation Comments Hemoglobin (test code = 43473-5) 9.9 14.0-18.0 [facility]aleAutomated blood hematocrit (volume fraction)2020-03-03 05:15:00* Test Item Value Reference Range Interpretation Comments Hematocrit (test code = 4544-3) 29.9 38.2-49.6 [facility]aleAutomated erythrocyte mean corpuscular uwmsfy5029-85-20 05:15:00* Test Item Value Reference Range Interpretation Comments Mean Corpuscular Volume (test code = 787-2) 90.3 81-99 [facility]aleAutomated erythrocyte mean corpuscular hemoglobin (mass per erythrocyte)2020-03-03 05:15:00* Test Item Value Reference Range Interpretation Comments Mean Corpuscular Hemoglobin (test code = 785-6) 29.9 28-32 [facility]aleAutomated erythrocyte mean corpuscular hemoglobin concentration measurement (mass/volume)2020-03-03 05:15:00* Test Item Value Reference Range Interpretation Comments Mean Corpuscular Hemoglobin Concent (test code = 786-4) 33.1 31-35 [facility] SunnyvaleRDW GqsQf-Oqp8740-94-05 05:15:00* Test Item Value Reference Range Interpretation Comments Red Cell Distribution Width (test code = 99060-5) 15.4 11.7 -14.4 [facility]aleAutomated blood platelet count (count/volume)2020-03-03 05:15:00* Test Item Value Reference Range Interpretation Comments Platelet Count (test code = 777-3) 164 140-360 [facility]valeAutomated blood segmented neutrophil count as percentage of total elbjfdhgom7039-24-20 05:15:00* Test Item Value Reference Range Interpretation Comments Neutrophils (%) (Auto) (test code = 45229-3) 75.9 38.7-80.0 [facility]aleAutomated blood lymphocyte count as percentage ot total mjbcwrfwke1915-45-91 05:15:00* Test Item Value Reference Range Interpretation Comments Lymphocytes (%) (Auto) (test code = 736-9) 12.0 18.0-39.1 [facility]aleAutomated blood monocyte count as percentage of total inqasxnmkd4973-94-58 05:15:00* Test Item Value Reference Range Interpretation Comments Monocytes (%) (Auto) (test code = 5905-5) 7.4 4.4-11.3 [facility]ale[facility]ated blood eosinophil count as percentage of total bgdlvvghkh1956-28-53 05:15:00* Test Item Value Reference Range Interpretation Comments Eosinophils (%) (Auto) (test code = 713-8) 4.1 0.0-6.0 [facility]aleAutomated blood basophil count as percentage of total bvtaytpkge5853-77-61 05:15:00* Test Item Value Reference Range Interpretation Comments Basophils (%) (Auto) (test code = 706-2) 0.2 0.0-1.0 [facility] SunnyvaleFluoroscopic procedure less than one hour qurmebxj3116-98-57 05:15:00* Test Item Value Reference Range Interpretation Comments IM GRANULOCYTES % (test code = IM GRANULOCYTES %) 0.4 0.0- 1.0 [facility]aleAutomated blood neutrophil count 2020-03-03 05:15:00* Test Item Value Reference Range Interpretation Comments Neutrophils # (Auto) (test code = 751-8) 9.7 2.1-6.9 [facility]aleBlood lymphocytes count (number/volume) 2020-03-03 05:15:00* Test Item Value Reference Range Interpretation Comments Lymphocytes # (Auto) (test code = 39204-2) 1.5 1.0-3.2 [facility]aleBlood monocytes automated count (number/volume)2020-03-03 05:15:00* Test Item Value Reference Range Interpretation Comments Monocytes # (Auto) (test code = 742-7) 1.0 0.2-0.8 [facility]aleAutomated blood eosinophil count 2020-03-03 05:15:00* Test Item Value Reference Range Interpretation Comments Eosinophils # (Auto) (test code = 711-2) 0.5 0.0-0.4 [facility]aleAutomated blood basophil count (count/volume)2020-03-03 05:15:00* Test Item Value Reference Range Interpretation Comments Basophils # (Auto) (test code = 704-7) 0.0 0.0-0.1 [facility] SunnyvaleFluoroscopic procedure less than one hour ofmapaky1225-12-86 05:15:00* Test Item Value Reference Range Interpretation Comments Absolute Immature Granulocyte (auto ([place] t code = Absolute Immature Granulocyte (auto) 0.05 0-0.1 [facility] sodium measurement (moles/volume)2020-03-03 05:15:00* Test Item Value Reference Range Interpretation Comments Sodium Level (test code = 2951-2) 139 136-145 [facility] or plasma potassium measurement (moles/volume)2020-03-03 05:15:00* Test Item Value Reference Range Interpretation Comments Potassium Level (test code = 2823-3) 4.0 3.5-5.1 [facility] or plasma chloride measurement (moles/volume)2020-03-03 05:15:00* Test Item Value Reference Range Interpretation Comments Chloride Level (test code = 2075-0) 108 98-107 [facility] or plasma carbon dioxide, total measurement (moles/volume)2020-03-03 05:15:00* Test Item Value Reference Range Interpretation Comments Carbon Dioxide Level (test code = 2028-9) 25 22-29 [facility] or plasma anion [id number] 05:15:00* Test Item Value Reference Range Interpretation Comments Anion Gap (test code = 27171-2) 10.0 8-16 [facility] or plasma urea nitrogen measurement (mass/volume)2020-03-03 05:15:00* Test Item Value Reference Range Interpretation Comments Blood Urea Nitrogen (test code = 3094-0) 13 7-26 [facility] or plasma creatinine measurement (mass/volume)2020-03-03 05:15:00* Test Item Value Reference Range Interpretation Comments Creatinine (test code = 2160-0) 0.97 0.72-1.25 [facility] or plasma urea nitrogen/creatinine mass xozfq8327-70-50 05:15:00* Test Item Value Reference Range Interpretation Comments BUN/Creatinine Ratio (test code = 3097-3) 13 6-25 [facility]aleEstimated glomerular filtration rate (GFR) xxdttideeqlbe5255-70-53 05:15:00* Test Item Value Reference Range Interpretation Comments Estimat Glomerular Filtration Rate (test code = 981431903) > 60 >60 Ranges were taken from the National Kidney Disease Education Program and the [facility] Kidney Foundation literature.Reference ranges:60 or greater: Hbzrup30-51 ( for 3 consecutive months): Chronic kidney disease 15 or less: Kidney failureBaylor Scott & White Medical Center – SunnyvaleGlucose aaxuftnrdta3784-87-37 05:15:00* Test Item Value Reference Range Interpretation Comments Glucose Level (test code = KYM7600) 184 74-118 [facility] Klebergerum or plasma calcium measurement (mass/volume)2020-03-03 05:15:00* Test Item Value Reference Range Interpretation Comments Calcium Level (test code = 86541-4) 8.3 8.4-10.2 [facility] SunnyvaleCHEST 2 ZLASM6302-00-16 09:39:00 [facility] [address] [address] Patient Name: TORI TRIPLETT MR #: [id number] : 1945 Age/Sex: 74/M Req #: [id number] Adm Physician: AKI MTZ MD Ordered by: BERTIN CARRASCO MD Report #: [id number] Location: [facility] Room/Bed: [address] [address] Procedure: [id number] DX/CHEST 2 VIEWS Exam Date: 03/02/20 Exam Time: 923 REPORT STATUS: Signed X-ray chest PA and lateral views History: Fever. Comparison: 08/18/2019 Findings: Central ai rways unremarkable. Heart size normal. No pleural effusion. No pneumothorax. N o focal lung disease. Skeletal structures unremarkable for left rib fracture, likely old. Degenerative changes of the thoracic spine and shoulders especiall y the right. Upper abdomen unremarkable. Incidental findings: Status post medi an sternotomy and CABG. Impression: No acute cardiopulmonary disease on thi s exam. No significant change compared with the prior exam. Signed by: Michelle Junior MD on 03/02/2020 9:44 AM Dictated By: TRAE JNUIOR MD Elec tronically Signed By: TRAE JUNIOR MD on 03/02/20943 Transcribed By: JOHNSON MELENDEZ on 03/02/20943 COPY TO: BERTIN CARRASCO MD Blood platelets count by estimate (number/volume)2020-03-02 07:32:00* Test Item Value Reference Range Interpretation Comments Platelet Estimate (test code = 60203-0) ADEQUATE [facility] SunnyvalePlatelet anvigxdjbl6526-60-32 07:32:00* Test Item Value Reference Range Interpretation Comments Platelet Morphology Comment (test code = 01521-4) RARE EDTA CLUMPIN G [facility] SunnyvaleBlood anisocytosis detection by light azwbamydno0296-52-18 07:32:00* Test Item Value Reference Range Interpretation Comments Anisocytosis (test code = 702-1) SLIGHT [facility] SunnyvaleRBC zhgfbzlsrm9875-04-30 07:32:00* Test Item Value Reference Range Interpretation Comments Red Cell Morphology Comment (test code = 6742-1) NORMAL [facility]berger[facility] or plasma total bilirubin measurement (mass/volume)2020-03-02 07:32:00* Test Item Value Reference Range Interpretation Comments Total Bilirubin (test code = 1975-2) 0.5 0.2-1.2 [facility] SunnyvaleFluoroscopic procedure less than one hour dxgvdrqk9424-94-39 07:32:00* Test Item Value Reference Range Interpretation Comments Aspartate Amino Transf (AST/SGOT) (test code = Aspartate Amino Transf (AST/SGOT)) 14 5-34 [facility] Klebergerum or plasma alanine aminotransferase measurement (enzymatic activity/volume)2020-03-02 07:32:00* Test Item Value Reference Range Interpretation Comments Alanine Aminotransferase (ALT/SGPT) (test code = 1742-6) 11 0-55 [facility] Klebergerum or plasma protein measurement (mass/volume)2020-03-02 07:32:00* Test Item Value Reference Range Interpretation Comments Total Protein (test code = 2885-2) 5.4 6.5-8.1 [facility]berger[facility] or plasma albumin measurement (mass/volume)2020-03-02 07:32:00* Test Item Value Reference Range Interpretation Comments Albumin (test code = 1751-7) 2.7 3.5-5.0 [facility] SunnyvalePlasma globulin measurement (mass/volume) 2020-03-02 07:32:00* Test Item Value Reference Range Interpretation Comments Globulin (test code = 80281-2) 2.7 2.3-3.5 [facility]berger[facility] or plasma albumin/globulin mass ksjya4658-32-90 07:32:00* Test Item Value Reference Range Interpretation Comments Albumin/Globulin Ratio (test code = 1759-0) 1.0 0.8-2.0 [facility]berger[facility] or plasma alkaline phosphatase measurement (enzymatic activity/volume)2020-03-02 07:32:00* Test Item Value Reference Range Interpretation Comments Alkaline Phosphatase (test code = 6768-6) 53 40-150 [facility] SunnyvaleFluoroscopic procedure less than one hour zgrrvrms3116-73-99 02:20:00* Test Item Value Reference Range Interpretation Comments Lactic Acid Level (test code = Lactic Acid Level) 1.8 0.5- 2.0 [facility]ale[facility]ST [facility]INGLE (PORTABLE)2020-03-02 00:57:00 [facility] [address] [place] [address] Patient Name: TORI TRIPLETT MR #: [id number] : 1945 Age/Sex: 74/M Req #: [id number] Adm Physician: AKI MTZ MD Ordered by: DENY WILBURN DO Report #: [id number] Location: [facility] Room/Bed: [place] [address] Procedure: DX/CHEST SI NGLE (PORTABLE) Exam Date: 03/02/20 Exam Time: 34 REPORT STATUS: Signed EXAMINATIO N: CHEST SINGLE (PORTABLE) INDICATION: Y FEVER, POST OP [id number] COMPARISON: Radiograph dated 08/18/2019 FINDING S: TUBES and LINES: None. LUNGS: Patchy and hazy bibasilar opacit ies represent atelectasis or pneumonia. PLEURA: No pleural effusion or pne umothorax. HEART AND MEDIASTINUM: The cardiomediastinal silhouette is unre markable. BONES AND SOFT TISSUES: No acute osseous lesion. Unchanged i n underwires. Soft tissues are unremarkable. UPPER ABDOMEN: No free air under the diaphragm. IMPRESSION: New patchy and hazy bibasilar tanvi ng opacities could represent atelectasis or pneumonia in the appropriate clini hilda setting. Signed by: Masoud Tang MD on 03/02/2020 1:46 AM Dic tated By: MASOUD TANG MD 5 COPY TO: LINDA WILBURN DO Urine color qschcrcqhiydx0641-77-16 00:30:00* Test Item Value Reference Range Interpretation Comments Urine Color (test code = 5778-6) YELLOW YELLOW DARK YELLOWBaylor [facility] SunnyvaleUrine xdxgnqi4669-89-07 00:30:00* Test Item Value Reference Range Interpretation Comments Urine Clarity (test code = 78772-6) SL CLOUDY CLEAR [facility] gravity of Urine by Test strip 2020-03-02 00:30:00* Test Item Value Reference Range Interpretation Comments Urine Specific [place] (test code = 5811-5) 1.020 1.010-1.02 5 [facility] SunnyvaleUrine pH measurement by automated test wqnkr6519-23-22 00:30:00* Test Item Value Reference Range Interpretation Comments Urine pH (test code = 59034-8) 6 5-7 [facility] SunnyvaleUrine leukocyte esterase detection by jsilzxap8581-83-73 00:30:00* Test Item Value Reference Range Interpretation Comments Urine Leukocyte Esterase (test code = 5799-2) SMALL NEGATIVE [facility] SunnyvaleUrine nitrite akqfzojdl9513-96-83 00:30:00* Test Item Value Reference Range Interpretation Comments Urine Nitrite (test code = 62153-4) NEGATIVE NEGATIVE [facility]aleUrine protein measurement by test strip (mass/volume)2020-03-02 00:30:00* Test Item Value Reference Range Interpretation Comments Urine Protein (test code = 5804-0) 2+ NEGATIVE [facility] SunnyvaleUrine glucose pirxkbszj9062-99-34 00:30:00* Test Item Value Reference Range Interpretation Comments Urine Glucose (UA) (test code = 2349-9) NEGATIVE NEGATIVE [facility] SunnyvaleUrine ketones detection by automated test rygsh0992-26-11 00:30:00* Test Item Value Reference Range Interpretation Comments Urine Ketones (test code = 06222-1) TRACE NEGATIVE [facility] SunnyvaleUrine urobilinogen measurement by test strip (mass/volume)2020-03-02 00:30:00* Test Item Value Reference Range Interpretation Comments Urine Urobilinogen (test code = 00354-8) 0.2 0.2-1 [facility]aleUrine total bilirubin measurement (mass/volume)2020-03-02 00:30:00* Test Item Value Reference Range Interpretation Comments Urine Bilirubin (test code = 1978-6) SMALL NEGATIVE [facility] SunnyvaleUrine erythrocytes cezlmtzqc0203-18-17 00:30:00* Test Item Value Reference Range Interpretation Comments Urine Blood (test code = 04278-2) LARGE NEGATIVE [facility] SunnyvaleAutomated urine sediment leukocyte count by microscopy (number/high power field)2020-03-02 00:30:00* Test Item Value Reference Range Interpretation Comments Urine WBC (test code = 5821-4) 11-20 0-5 [facility] SunnyvaleErythrocytes detection in urine sediment by light sytqgaycaf3685-82-51 00:30:00* Test Item Value Reference Range Interpretation Comments Urine RBC (test code = 25965-4) 21-50 0-5 [facility] SunnyvaleBacteria detection in urine sediment by light chojtibmvx1021-63-85 00:30:00* Test Item Value Reference Range Interpretation Comments Urine Bacteria (test code = 31036-6) MODERATE NONE [facility] SunnyvaleEpithelial cells detection in urine sediment by light nyemyevdxo1032-49-37 00:30:00* Test Item Value Reference Range Interpretation Comments Urine Epithelial Cells (test code = 74838-8) FEW NONE [facility] SunnyvaleFluoroscopic procedure less than one hour ojuaaceo9336-23-18 23:37:00* Test Item Value Reference Range Interpretation Comments Coronavirus (PCR) (test code = Coronavirus (PCR)) NOT DETECTED NOTD ETECTED SARS-COV2/RT-PCRNegative results do not preclude SARS-CoV-2 infection and should not be used as the sole basis for patient management decisions. Negative result s must be combined with clinical observations, patient history, and epidemiologi hilda information. A false negative result may occur if a specimen is improperly c ollected, transported or handled.The limit of detection for this assay is 250 co pies/mLThe SARS-CoV-2 test is a rapid, real-time RT-PCR test intended for the qu alitative detection of nucleic acid from SARS-CoV-2 in nasopharyngeal swab speci men collected from individuals suspected of COVID-19 by their healthcare provide r. This test has not been Food and Drug Administration (FDA) cleared or approved and has been authorized by FDA under an Emergency Use Authorization (EUA). This EUA will be effective until the declaration that circumstances exist justifying the authorization of the emergency use of in vitro diagnostic test for detectio n and or diagnosis of COVID-19 is terminated under section 564(b) of the Act, or the the EUA is revoked under 564(g) of the ACT.Testing performed by [facility] [place], [place] [address]ZGOBaylor Scott & White Medical Center – SunnyvaleBlood wpaxdap0628-73-91 23:37:00* Test Item Value Reference Range Interpretation Comments Blood Culture (test code = 83559161) NO GROWTH AFTER 48 HOURS [facility] SunnyvaleBacterial urine ltwlsbh9462-02-85 13:26:00* Test Item Value Reference Range Interpretation Comments Urine Culture (test code = 630-4) ESCHERICHIA COLI-ESBL [facility] SunnyvaleBedside Ystpbeb7730-25-22 12:19:00* Test Item Value Reference Range Interpretation Comments Bedside Glucose (test code = 67937-3) 121 70-120 H Meter ID: [id number] Spohn Hospital – Klebergodium Level 2019-08-23 08:56:00* Test Item Value Reference Range Interpretation Comments Sodium Level (test code = 2951-2) 140 136-145 [facility] SunnyvalePotassium Jytmn7304-49-75 08:56:00* Test Item Value Reference Range Interpretation Comments Potassium Level (test code = 2823-3) 4.4 3.5-5.1 [facility] SunnyvaleChloride Xoanc3026-95-37 08:56:00* Test Item Value Reference Range Interpretation Comments Chloride Level (test code = 2075-0) 107 98-107 [facility] SunnyvaleCarbon Dioxide Dxhto5324-46-68 08:56:00* Test Item Value Reference Range Interpretation Comments Carbon Dioxide Level (test code = 2028-9) 25 22-29 [facility] SunnyvaleAnion Rkz3713-42-82 08:56:00* Test Item Value Reference Range Interpretation Comments Anion Gap (test code = 10537-8) 12.4 8-16 [facility] SunnyvaleBlood Urea Stduimvr9601-33-51 08:56:00* Test Item Value Reference Range Interpretation Comments Blood Urea Nitrogen (test code = 3094-0) 11 7-26 [facility] SunnyvaleCreatinine2020-01-25 08:56:00* Test Item Value Reference Range Interpretation Comments Creatinine (test code = 2160-0) 0.76 0.72-1.25 [facility] SunnyvaleBUN/Creatinine Npqwf8403-94-88 08:56:00* Test Item Value Reference Range Interpretation Comments BUN/Creatinine Ratio (test code = 3097-3) 14 - [facility] SunnyvaleEstimat Glomerular Filtration Rate 2019-08-23 08:56:00* Test Item Value Reference Range Interpretation Comments Estimat Glomerular Filtration Rate (test code = 382927251) > 60 >60 Ranges were taken from the National Kidney Disease Education Program and the [facility] hospital[facility] Kidney Foundation literature.Reference ranges:60 or greater: Uqzcrg91-99 ( for 3 consecutive months): Chronic kidney disease 15 or less: Kidney failureBaylor Scott & White Medical Center – SunnyvaleGlucose Dnwiq8576-00-01 08:56:00* Test Item Value Reference Range Interpretation Comments Glucose Level (test code = MXD6001) 106 74-118 [facility] SunnyvaleCalcium Fmvnb5213-08-36 08:56:00* Test Item Value Reference Range Interpretation Comments Calcium Level (test code = 79609-7) 8.6 8.4-10.2 [facility] SunnyvaleWhite Blood Nkvop8871-24-16 08:31:00* Test Item Value Reference Range Interpretation Comments White Blood Count (test code = 6690-2) 11.82 4.8-10.8 H [facility] SunnyvaleRed Blood Nyszb4433-72-55 08:31:00* Test Item Value Reference Range Interpretation Comments Red Blood Count (test code = 789-8) 3.37 4.3-5.7 L [facility] SunnyvaleHemoglobin2020-01-25 08:31:00* Test Item Value Reference Range Interpretation Comments Hemoglobin (test code = 33139-1) 10.0 14.0-18.0 L [facility] SunnyvaleHematocrit2020-01-25 08:31:00* Test Item Value Reference Range Interpretation Comments Hematocrit (test code = 4544-3) 30.7 38.2-49.6 L [facility] SunnyvaleMean Corpuscular Ztsajo2044-66-96 08:31:00* Test Item Value Reference Range Interpretation Comments Mean Corpuscular Volume (test code = 787-2) 91.1 81-99 [facility] SunnyvaleMean Corpuscular Wipxzorlud7761-05-09 08:31:00* Test Item Value Reference Range Interpretation Comments Mean Corpuscular Hemoglobin (test code = 785-6) 29.7 28-32 [facility] SunnyvaleMean Corpuscular Hemoglobin Concent 2019-08-23 08:31:00* Test Item Value Reference Range Interpretation Comments Mean Corpuscular Hemoglobin Concent (test code = 786-4) 32.6 31-35 [facility] SunnyvaleRed Cell Distribution Fkjjr2874-55-25 08:31:00* Test Item Value Reference Range Interpretation Comments Red Cell Distribution Width (test code = 09936-1) 14.2 11.7 -14.4 [facility] SunnyvalePlatelet Xazxw2415-88-09 08:31:00* Test Item Value Reference Range Interpretation Comments Platelet Count (test code = 777-3) 225 140-360 [facility] SunnyvaleNeutrophils (%) (Auto)2019-08-23 08:31:00 * Test Item Value Reference Range Interpretation Comments Neutrophils (%) (Auto) (test code = 58596-6) 61.1 38.7-80.0 [facility] SunnyvaleLymphocytes (%) (Auto)2019-08-23 08:31:00 * Test Item Value Reference Range Interpretation Comments Lymphocytes (%) (Auto) (test code = 736-9) 16.9 18.0-39.1 L [facility] SunnyvaleMonocytes (%) (Auto)2019-08-23 08:31:00* Test Item Value Reference Range Interpretation Comments Monocytes (%) (Auto) (test code = 5905-5) 7.4 4.4-11.3 [facility]aleEosinophils (%) (Auto)2019-08-23 08:31:00 * Test Item Value Reference Range Interpretation Comments Eosinophils (%) (Auto) (test code = 713-8) 13.9 0.0-6.0 H [facility] SunnyvaleBasophils (%) (Auto)2019-08-23 08:31:00* Test Item Value Reference Range Interpretation Comments Basophils (%) (Auto) (test code = 706-2) 0.3 0.0-1.0 [facility] SunnyvaleIM GRANULOCYTES %2019-08-23 08:31:00* Test Item Value Reference Range Interpretation Comments IM GRANULOCYTES % (test code = IM GRANULOCYTES %) 0.4 0.0- 1.0 [facility] SunnyvaleNeutrophils # (Auto)2019-08-23 08:31:00* Test Item Value Reference Range Interpretation Comments Neutrophils # (Auto) (test code = 751-8) 7.2 2.1-6.9 H [facility] SunnyvaleLymphocytes # (Auto)2019-08-23 08:31:00* Test Item Value Reference Range Interpretation Comments Lymphocytes # (Auto) (test code = 75042-0) 2.0 1.0-3.2 [facility] SunnyvaleMonocytes # (Auto)2019-08-23 08:31:00* Test Item Value Reference Range Interpretation Comments Monocytes # (Auto) (test code = 742-7) 0.9 0.2-0.8 H [facility]aleEosinophils # (Auto)2019-08-23 08:31:00* Test Item Value Reference Range Interpretation Comments Eosinophils # (Auto) (test code = 711-2) 1.6 0.0-0.4 H [facility] SunnyvaleBasophils # (Auto)2019-08-23 08:31:00* Test Item Value Reference Range Interpretation Comments Basophils # (Auto) (test code = 704-7) 0.0 0.0-0.1 [facility] SunnyvaleAbsolute Immature Granulocyte (auto 2019-08-23 08:31:00* Test Item Value Reference Range Interpretation Comments Absolute Immature Granulocyte (auto ([place] t code = Absolute Immature Granulocyte (auto) 0.05 0-0.1 [facility] SunnyvaleMagnesium Vgnei1251-81-86 17:37:00* Test Item Value Reference Range Interpretation Comments Magnesium Level (test code = 14222-0) 1.4 1.3-2.1 [facility] Klebergerum or plasma magnesium measurement (mass/volume)2019-08-21 15:35:00* Test Item Value Reference Range Interpretation Comments Magnesium Level (test code = 59286-6) 1.4 1.3-2.1 [facility] SunnyvaleCHEST 2 PHDMB5413-51-04 14:07:00 [place] [address] Patient Name: TORI TRIPLETT MR #: [id number] : 1945 Age/Sex: 73/M Req #: [id number] Adm Physician: Ordered by: BERTIN CARRASCO MD Report #: [id number] Location: OR Room/Bed: Procedure: [id number] DX/PRESTON ST 2 VIEWS Exam Date: 08/18/19 [...] PM Dictated By: SALLIE VALENZUELA MD 08 COPY TO: BERTIN URBINA MD - XR C-SPINE 4-5 [id number] 12:17:00 FAX: Aki Espitia MD [phone] Smith: O St: REG Name: Arsh REDDLaryELVIABASIL [facility] : [birth year] Age/S: 73/M [address] [facility] Unit #: [id number] Loc: [place] [address] Phys: Aki Mtz MD Acct: [id number] Dis Date: Status: REG CLI PHONE #: [phone] Exam Date: 02/28/2019 1158 FAX #: [phone] Reason: CERVICAL SPINE PAIN EXAMS: CPT CODE: [id number] XR C-SPINE 4-5 V 54757 HISTORY: Pain. CLARICE RISON: None available. 5 views of the cervical spine: No acute fracture or dislocation. Vertebral body heights are maintained. Mild straightening may suggest muscular spasm or this could be positional . C7 is partially obscured by overlying shoulder. [...] to posterior osteophytes anterior osteophytes as well. Electronically Signed by Jin bautista 02/28/2019 at 1210 Reported and signed by: Charles kate M.D. CC: Aki Mtz Technologist: RT ANAI(Myriam) Trnsc rd Date/Time/By: 02/28/2019 (5947) : By: [email or web address] Orig Print D/T: S: 02/28/2019 (4547) PAGE 1 Signed R eport IOSYXA5563-66-04 04:55:00* Test Item Value Reference Range Interpretation Comments GLUBED (test code = GLUBED) 146 MG/DL 70-110 H Performed by certified vacuum furnace operator at [facility] - US RETRO SUP0873-56-26 14:22:00 Name: TORI GREGORY [facility] : 1945 Age/S: 73 / M [address] [place] [address] Blvd Unit #: [id number] Loc: [place] [address] Phys: Bertin Carrasco MD Acct: [id number] Dis Date: Status: ADM IN PHONE #: [phone] Exam Date: 02/08/2019 1354 FAX #: [phone] Reason: UTI EXAMS: CPT CODE: [id number] US RETRO LTD [address] PROCEDURE: RENAL ULTRASOUND INDICATION: Urinary tract infection COMPARISON: CT 11/26/2018 TECHNIQUE: Sonographic evaluation of the kidneys and urinary bladder was performed. FINDINGS: Aorta, bifurcation, and IVC are not well- visualized. KIDNEYS: The right kidney measures 10.7 cm [...] or renal stones. 2. Enlarged prostate SL: [id number] at 1422 Reported and signed by: Sb Her M.D. CC: Bertin Carrasco MD; Aki Mtz MD Technologist: Rashmi Soler RDMS(OB)(AB) Trnscb Date/Time: 02/08/2019 (1422) [email or web address] Orig Print D/T: S: 02/08/2019 (7793) Probe: PAGE 1 Signed Report [id number] 11:53:00* Test Item Value Reference Range Interpretation Comments GLUBED (test code = GLUBED) 86 MG/DL 70-110 N Performed by certified vacuum furnace operator at [facility] SJHUMU8319-59-93 08:28:00* Test Item Value Reference Range Interpretation Comments GLUBED (test code = GLUBED) 108 MG/DL 70-110 N Performed by certified vacuum furnace operator at [facility] ZDVSMK1233-10-40 16:54:00* Test Item Value Reference Range Interpretation Comments GLUBED (test code = GLUBED) 129 MG/DL 70-110 H Performed by certified vacuum furnace operator at [facility] BASIC METABOLIC YVBKV3168-76-38 14:33:00* Test Item Value Reference Range Interpretation [...] code = CA) 8.8 mg/dL 8.0-10.5 N OYMPVKAVB0405-30-44 14:33:00* Test Item Value Reference Range Interpretation Comments MAGNESIUM (test code = MAG) 1.40 mg/dL 1.8-2.4 L CBC W/AUTO [id number] 14:20:00* Test Item Value Reference Range Interpretation [...] DIFF REQUIRED (test code = MDIFF) NO JKMZEF0268-83-39 12:02:00* Test Item Value Reference Range Interpretation Comments GLUBED (test code = GLUBED) 106 MG/DL 70-110 N Performed by certified vacuum furnace operator at [facility] ORJTYU0144-59-08 09:28:00* Test Item Value Reference Range Interpretation Comments GLUBED (test code = GLUBED) 152 MG/DL 70-110 H Performed by certified vacuum furnace operator at [facility] NSADWZ2982-02-53 09:01:00* Test Item Value Reference Range Interpretation Comments GLUBED (test code = GLUBED) 119 MG/DL 70-110 H Performed by certified vacuum furnace operator at [facility] KZDCXF7256-88-73 18:28:00* Test Item Value Reference Range Interpretation Comments GLUBED (test code = GLUBED) 122 MG/DL 70-110 H Performed by certified vacuum furnace operator at [facility] QPAEXZ2702-18-61 13:20:00* Test Item Value Reference Range Interpretation Comments GLUBED (test code = GLUBED) 172 MG/DL 70-110 H Performed by certified vacuum furnace operator at [facility] OCTLRB3556-82-74 13:20:00* Test Item Value Reference Range Interpretation Comments GLUBED (test code = GLUBED) 126 MG/DL 70-110 H Performed by certified vacuum furnace operator at [facility] ORIGRR8412-85-57 21:12:00* Test Item Value Reference Range Interpretation Comments GLUBED (test code = GLUBED) 207 MG/DL 70-110 H Performed by certified vacuum furnace operator at [facility] YNASGOQY-C8124-73-10 20:54:00* Test Item Value Reference Range Interpretation [...] 3 troponins total (including troponin done in ED)OPBBIEYT-F9354-00-10 17:11:00* Test Item Value Reference Range Interpretation [...] any concentrations <2 ng/mL are obtained. URINALYSIS EXVYXVYF4757-47-57 12:24:00* Test Item Value Reference Range Interpretation [...] MUCU) TRACE /LPF NONE SEEN COMMENTS: Clean HfeooSHCTIKPV-B5611-61-10 11:13:00* Test Item Value Reference Range Interpretation Comments TROPONIN-I (test code = TROPI) 0.020 ng/mL 0.000-0.045 N Negative: <= 0.045 Positive: >= 0.046 Correlation with serial results, other cardiac markers andclinical findings is necessary to determine the clinicalsignificance of this result. Results using different methodologies should not be comparedto one another as quantitative results may vary by method. - XR CHEST 1 [id number] 11:02:00 FAX: Lupe Gracia DO [phone] Smith: St: PRE Name: TORI SOMERS [facility] : [birth year] Age/S: 73/M [address] [place] [address] Unit #: [id number] Loc: [address] [place] [address] [address] Phys: Lupe Glaser DO Acct: [id number] Dis Date: Status: PRE ER PHONE #: [phone] Exam Date: 02/05/2019 1049 FAX #: [phone] Reason: FEVER EXAMS: CPT CODE: [id number] XR CHEST 1 V 62938 PROCEDURE: CHEST SINGLE VIEW INDICATION: Fever COMPARISON: Multiple priors, most recen t October 2018 FINDINGS: AP portable chest obtained [...] the differential. N o definite pneumonia. SL: [id number] at 1102 Reported and signed by: Iker Miller M.D. CC: Lupe Glaser DO Technologist: MIRYAM Kim) Trnscrd Date/Time/By: 02/05/2019 (1102) : By: Yessy Orig Print D/T: S: 02/05/2019 (6636) PAGE 1 Signed Report TROPONIN-I RAPID 2019-02-05 10:56:00* Test Item Value Reference Range Interpretation Comments TROPONIN-I RAPID (test code = TROPIRAP) 0.02 ng/mL 0.00-0.08 N Performed by certified vacuum furnace operator at [facility] Negative: <= 0.08 Positive: >= 0.09An elevated troponin value alone is not sufficient todiagnose a myocardial infarction. Rather, the patient sclinical presentation (history, physical exam) and ECGshould be used in conjunction with troponin in thediagnostic evaluation of suspected myocardial infarction. Aserial sampling protocol is recommended to facilitate the identification of temporal changes in troponin levels characteristic of DE. LACTIC ACID [id number] 10:56:00* Test Item Value Reference Range Interpretation Comments LACTIC ACID POC (test code = LACTP) 1.6 MMOL/L 0.90-1.70 N Performed by certified vacuum furnace operator at [facility] CBC W/AUTO [id number] 10:53:00* Test Item Value Reference Range Interpretation [...] (test code = MDIFF) NO CHEMISTRY 8 ZSTMBBT8562-22-23 10:44:00* Test Item Value Reference Range Interpretation [...] code = GFRBED) 78 ML/MIN CHEMISTRY 8 [id number] 10:44:00* Test Item Value Reference Range Interpretation Comments ISTAT-SODIUM (test code = NAP) 141 MMOL/L 134-147 N ISTAT-POTASSIUM (test code = KP) 4.3 MMOL/L 3.4-5.0 N ISTAT-CHLORIDE (test code = CLP) 104 MMOL/L 100-108 N Performed by certified vacuum furnace operator at [facility] ISTAT CARBON DIOXIDE (test code = ISTAT-CO2) [...] GFRBED) 78 ML/MIN SP LUMBAR, COMPLETE MIN [id number] 12:30:00 [place] [address] Patient Name: TORI TRIPLETT MR #: [id number] : 1945 Age/Sex: 73/M Req #: [id number] Adm Physician: Ordered by: AKI MTZ MD Report #: [id number] Location: [facility] Room/Bed: Procedure: [id number] DX/ SP LUMBAR, COMPLETE MIN 4VW Exam [...] 12 33 COPY TO: AKI MTZ MD [id number] 16:54:00* Test Item Value Reference Range Interpretation Comments GLUBED (test code = GLUBED) 136 MG/DL 70-110 H Performed by certified vacuum furnace operator at [facility] [id number] 12:43:00* Test Item Value Reference Range Interpretation Comments GLUBED (test code = GLUBED) 129 MG/DL 70-110 H Performed by certified vacuum furnace operator at [facility] [id number] 07:50:00* Test Item Value Reference Range Interpretation Comments GLUBED (test code = GLUBED) 162 MG/DL 70-110 H Performed by certified vacuum furnace operator at [facility] [id number] 22:23:00* Test Item Value Reference Range Interpretation Comments GLUBED (test code = GLUBED) 168 MG/DL 70-110 H Performed by certified vacuum furnace operator at [facility] JJDXNZ5768-09-75 15:49:00* Test Item Value Reference Range Interpretation Comments GLUBED (test code = GLUBED) 158 MG/DL 70-110 H Performed by certified vacuum furnace operator at [facility] OHPAGH8841-36-16 11:05:00* Test Item Value Reference Range Interpretation Comments GLUBED (test code = GLUBED) 206 MG/DL 70-110 H Performed by certified vacuum furnace operator at [facility] [id number] 07:29:00* Test Item Value Reference Range Interpretation Comments GLUBED (test code = GLUBED) 156 MG/DL 70-110 H Performed by certified vacuum furnace operator at [facility] [id number] 21:29:00* Test Item Value Reference Range Interpretation Comments GLUBED (test code = GLUBED) 248 MG/DL 70-110 H Performed by certified vacuum furnace operator at [facility] [id number] 17:22:00* Test Item Value Reference Range Interpretation Comments GLUBED (test code = GLUBED) 138 MG/DL 70-110 H Performed by certified vacuum furnace operator at [facility] - US SCROTUM AND [id number] 17:17:00 Name: TORI TRIPLETT [facility] : 1945 Age/S: 73 / M [address] [place] [address] Unit #: [id number] Loc: [place] [address] Phys: Aki Mtz MD Acct: [id number] Dis Date: Status: ADM IN PHONE #: [phone] Exam Date: 2018 1636 FAX #: [phone] Reason: SCROTUM, TESICULAR PAIN/DISCOMFORT EXAMS: CPT CODE: [id number] US SCROTUM AND CNTS 20445 PROCEDURE: SCROTAL ULTRASOUND INDICATION: Right testicular pain [...] or extratesticular lesion. I favor that this represent s neoplasm, but I cannot exclude the possibility of a chronic epididymoo rchitis. 2. Normal left testis. 3. No evidence of testicular t orsion. SL:01 PAGE 1 Si gned Report (CONTINUED) Name: TORI TRIPLETT [facility] : 1945 Age/S: 73 / M 5 00 [facility] Unit #: [id number] Loc: [place] [address] Phys: Aki Mtz MD Acct: [id number] Dis Date: Status: ADM IN PHONE #: [phone] Exam Date: 2018 1636 FAX #: [phone] Reason: SCROTUM, TESICULAR P AIN/DISCOMFORT EXAMS: CPT CODE: [id number] US SCROTUM AND CNTS 00583 <Continued> at 1717 Reported and signed by: Miki Swan M.D. CC: Aki Mtz MD Technologist: Brent Savage RDMS (AB) (OB) Trnscb Date/Time: 2018 (1717) t.AJJ Orig Print D/T: S: 2018 (1720) Probe: PAGE 2 Signed Report - US SCROTUM AND [id number] 17:17:00 Name: TORI GREGORY [facility] : 1945 Age/S: 73 / M [address] [facility] Unit #: [id number] Loc: [place] [address] Phys: Aki Mtz MD Acct: [id number] Dis Date: Status: ADM IN PHONE #: [phone] Exam Date: 2018 163 FAX #: [phone] Reason: SCROTUM, TESICULAR PAIN/DISCOMFORT EXAMS: CPT CODE: [id number] US SCROTUM AND CNTS 96707 PROCEDURE: SCROTAL ULTRASOUND INDICATION: Right testicular pain [...] Si gned Report (CONTINUED) Name: TORI GREGORY [facility] : 1945 Age/S: 73 / M 5 00 [facility] Unit #: [id number] Loc: [place] [address] Phys: Aki Mtz MD Acct: [id number] Dis Date: Status: ADM IN PHONE #: [phone] Exam Date: 2018 1636 FAX #: [phone] Reason: SCROTUM, TESICULAR P AIN/DISCOMFORT EXAMS: CPT CODE: [id number] US SCROTUM AND CNTS 61863 <Continued> at 1717 Reported and signed by: Miki Swan M.D. CC: Aki Mtz MD Technologist: Brent Savage RDMS () (OB) Trnscb Date/Time: 2018 (1717) KortneyAJJ Orig Print D/T: S: 2018 (3600) Probe: PAGE 2 Signed Report [id number] 11:54:00* Test Item Value Reference Range Interpretation Comments GLUBED (test code = GLUBED) 237 MG/DL 70-110 H Performed by certified vacuum furnace operator at [facility] [id number] 08:32:00* Test Item Value Reference Range Interpretation Comments GLUBED (test code = GLUBED) 134 MG/DL 70-110 H Performed by certified vacuum furnace operator at [facility] [id number] 21:02:00* Test Item Value Reference Range Interpretation Comments GLUBED (test code = GLUBED) 181 MG/DL 70-110 H Performed by certified vacuum furnace operator at [facility] - MRA NECK [id number] 19:10:00 FAX: Sudhir Watson MD [phone] Smith: St: ADM FAX: Aki Espitia MD [phone] Name: TORI TRIPLETT [facility] : 1945 Age/S: 72/M [address] [place] [address] Unit #: [id number] Loc: G.[address] [place] [address] Phys: Sudhir Watson MD Acct: [id number] Dis Date: Status: ADM IN PHONE #: [phone] Exam Date: 11/27/2018 1510 FAX #: [phone] Reason: TIA EXAMS: CPT CODE: [id number] MRA NECK W/CONT 96494 INDICATION: Right arm numbness, transient ischemic attack. COMPARISON: CT brain study dated 11/26/2018. TECHNIQUE: -Pre and postinfusion multiplanar and multisequential MRI images of t kwan brain were obtained. - Three-dimensional time of flight brain MR angiog freedom of intracranial vessels is performed, and maximum intensity projecti on reformatted images are presented in multiple three-dimensional ro tational projections. - Two-dimensional time of flight neck MR angiography of extracranial arterial system was performed and reformatted images are presented in three-dimensional maximum intensity rotational projections. Three-dimensional ukts-vh-vqtelb MR angiography centered at the carot id [...] Repo rt (CONTINUED) FAX: Sudhir Watson MD [phone] Smith: St: [facility] FAX: Aki Espitia MD [phone] ------ Name: TORI TRIPLETT [facility] : 08/1945 Age/S: 72/M [address] [place] [address] Blvd Unit #: [id number] Loc: G.[address] [place] [address] Phys: Sudhir Watson MD Acct: [id number] Dis Date: Status: ADM IN PHONE #: Exam Date: 11/27/2018 1510 FAX #: [phone] Reason: TIA EXAMS: CPT CODE: [id number] MRA NECK W/CONT 67878 <Continued> arteries with mild to moderate focal [...] have a normal course caliber and contour. Ejlm-bm-gscvxqxj atheroscl erotic irregularity along the right carotid [...] Signed Report (CONTINUED) FAX: Sudhir Watson MD [phone] Smith: St: [facility] FAX: Aki Espitia MD [phone] Name: ELVIA TRIPLETT [facility] : 1945 Age/S : 72/M [address] [place] [address] Blvd Unit #: [id number] Loc: [address] [address] [place] [address] Phys: Sudhir Watson MD Acct: [id number] Dis Date: Status: ADM IN PHONE #: [phone] Exam Date: 11/27/2018 1510 FAX #: [phone] Reason: TIA EXAMS: CPT CODE: [id number] MRA NECK W/CONT 97681 <Continued> 1. Atherosclerotic irregularity with mild to [...] 3 Signed Report - MRA HEAD W/O [id number] 19:10:00 FAX: Sudhir Watson MD [phone] Smith: St: ADM FAX: Aki Espitia MD [phone] Name: TORI TRIPLETT [facility] [place] : 1945 Age/S: 72/M [address] [place] [address] Unit #: [id number] Loc: G.[address] [place] [address] Phys: Sudhir Watson MD Acct: [id number] Dis Date: Status: ADM IN PHONE #: [phone] Exam Date: 11/27/2018 1510 FAX #: [phone] Reason: TIA EXAMS: CPT CODE: [id number] MRA HEAD W/O CONTRAST 81090 INDICATION: Right arm numbness, transient ischemic attack. [...] in three-dimensional maximum intensity rotational projections. Three-dimensional bpar-do-khtuaa MR angiography centered at the carot id [...] Repo rt (CONTINUED) FAX: Sudhir Watson MD Smith: St: ADM FAX: Aki Espitia MD [phone] ------ Name: TORI TRIPLETT [facility] : 08/1945 Age/S: 72/M [address] [place] [address] Unit #: [id number] Loc: [place] [address] Phys: Sudhir Watson MD Acct: [id number] Dis Date: Status: ADM IN PHONE #: Exam Date: 11/27/2018 1510 FAX #: [phone] Reason: TIA EXAMS: CPT CODE: [id number] MRA HEAD W/O CONTR AST 07929 <Continued> arteries with mild to moderate focal [...] have a normal course caliber and contour. Bpwl-bv-ugzovoph atheroscl erotic irregularity along the right carotid [...] Signed Report (CONTINUED) FAX: Sudhir Watson MD [phone] Smith: St: ADM FAX: Aki Espitia MD [phone] Name: ELVIA TRIPLETT BASIL [facility] : 1945 Age/S : 72/M [address] [place] [address] Blvd Unit #: [id number] Loc: [address] [address] Phys: Sudhir Watson MD Acct: [id number] Dis Date: Status: ADM IN PHONE #: [phone] Exam Date: 11/27/2018 1510 FAX #: [phone] Reason: TIA EXAMS: CPT CODE: [id number] MRA HEAD W/O CONTRAST 35063 <Continued> 1. Atherosclerotic irregularity with mild to [...] and signed by: Cynthia Hall M.D. CC: Sudihr Watson MD; Aki Mtz MD Technologist: Jose Henderson, RT(R)(CT)(MR) Trnscrd Date/Time/By: 11/27/2018 (1909) : By: KortneyVB9 Orig Print D/T: S: 11/27/2018 (1912) PAGE 3 Signed Report - MRA NECK W/CONT 2018-11-27 19:10:00 FAX: Sudhir Watson MD [phone] Smith: St: ADM FAX: Aki Espitia MD [phone] Name: TORI GREGORY [facility] : 1945 Age/S: 72/M [address] [place] [address] Unit #: [id number] Loc: .[address] [place] [address] Phys: Sudhir Watson MD Acct: [id number] Dis Date: Status: ADM IN PHONE #: [phone] Exam Date: 11/27/2018 1510 FAX #: [phone] Reason: TIA EXAMS: CPT CODE: [id number] MRA NECK W/CONT 67451 INDICATION: Right arm numbness, transient ischemic attack. [...] in three-dimensional maximum intensity rotational projections. Three-dimensional yhkp-ua-lpgaqu MR angiography centered at the carot id [...] Repo rt (CONTINUED) FAX: Sudhir Watson MD Smith: St: [facility] FAX: Aki Espitia MD [phone] ------ Name: TRIPLETT MIAELVIABASIL [facility] : 08/1945 Age/S: 72/M [address] [place] [address] Unit #: [id number] Loc: [place] [address] Phys: Sudhir Watson MD Acct: [id number] Dis Date: Status: ADM IN PHONE #: Exam Date: 11/27/2018 1510 FAX #: [phone] Reason: TIA EXAMS: CPT CODE: [id number] MRA NECK W/CONT 07586 <Continued> arteries with mild to moderate focal [...] have a normal course caliber and contour. Aoii-jw-xwmzrclh atheroscl erotic irregularity along the right carotid [...] Signed Report (CONTINUED) FAX: Sudhir Watson MD [phone] Smith: St: [facility] FAX: Aki Espitia MD [phone] Name: TORI MELGAR CHA [facility] : 1945 Age/S : 72/M [address] [place] [address] Blvd Unit #: [id number] Loc: [address] [address] Phys: Sudhir Watson MD Acct: [id number] Dis Date: Status: ADM IN PHONE #: [phone] Exam Date: 11/27/2018 1510 FAX #: [phone] Reason: TIA EXAMS: CPT CODE: [id number] MRA NECK W/CONT 85569 <Continued> 1. Atherosclerotic irregularity with mild to [...] Aki Mtz MD Technologist: Jose Henderson, RT(R)(CT)(MR) [facility] Date/Time/By: 11/27/2018 (1909) : By: [email or web address] Orig Print D/T: S: 11/27/2018 (1912) PAGE 3 Signed Report - MRA HEAD W/O [id number] 19:10:00 FAX: Sudhir Watson MD [phone] Smith: St: ADM FAX: Aki Espitia MD [phone] Name: TORI GREGORY [facility] : 1945 Age/S: 72/M [address] [place], [place] [address]vd Unit #: [id number] Loc: G[address] [place] [address] Phys: Sudhir Watson MD Acct: [id number] Dis Date: Status: ADM IN PHONE #: [phone] Exam Date: 11/27/2018 1510 FAX #: [phone] Reason: TIA EXAMS: CPT CODE: [id number] MRA HEAD W/O CONTRAST 83124 INDICATION: Right arm numbness, transient ischemic attack. [...] in three-dimensional maximum intensity rotational projections. Three-dimensional rgdc-gx-jjhxzq MR angiography centered at the carot id [...] Repo rt (CONTINUED) FAX: Sudhir Watson MD Smith: St: ADM FAX: Aki Espitia MD [phone] ------ Name: TORI GREGORY [facility] : 08/1945 Age/S: 72/M [address] [place] [address] Blvd Unit #: [id number] Loc: [address] [place] [address] Phys: Sudhir Watson MD Acct: [id number] Dis Date: Status: ADM IN PHONE #: Exam Date: 11/27/2018 1510 FAX #: [phone] Reason: TIA EXAMS: CPT CODE: [id number] MRA HEAD W/O CONTR AST 88074 <Continued> arteries with mild to moderate focal [...] have a normal course caliber and contour. Kabd-ge-eymcfsza atheroscl erotic irregularity along the right carotid [...] Signed Report (CONTINUED) FAX: Sudhir Watson MD [phone] Smith: St: [facility] FAX: Aki Espitia MD [phone] Name: TORI MELGAR CHA [facility] : 1945 Age/S : 72/M [address] [place] [address] Blvd Unit #: [id number] Loc: [address] [place] [address] Phys: Sudhir Watson MD Acct: [id number] Dis Date: Status: ADM IN PHONE #: [phone] Exam Date: 11/27/2018 1510 FAX #: [phone] Reason: TIA EXAMS: CPT CODE: [id number] MRA HEAD W/O CONTRAST 10348 <Continued> 1. Atherosclerotic irregularity with mild to [...] Aki Mtz MD Technologist: Jose Henderson, RT(R)(CT)(MR) [facility] Date/Time/By: 11/27/2018 (1909) : By: [email or web address] Orig Print D/T: S: 11/27/2018 (1912) PAGE 3 Signed Report - MRI BRAIN WO/W [id number] 19:10:00 FAX: Aki Espitia MD [phone] Smith: St: ADM Name: TORI WILSON [facility] : [birth year] Age/S: 72/M [address] [place] [address] Unit #: [id number] Loc: [address] [address] Phys: Aki Mtz MD Acct: [id number] Dis Date: Status: ADM IN PHONE #: [phone] Exam Date: 11/27/2018 1509 FAX #: [phone] Reason: Right arm numbness EXAMS: CPT CODE: [id number] MRI BRAIN WO/W CONT 56495 INDICATION: Right arm numbness, tr ansient ischemic [...] three-dimensional maximum inten sity rotational projections. 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 Mild to moderate areas of atherosclerotic irregularity along the bilateral cavernous and supraclinoid internal carotid arteries with mild to moderate focal stenosis. Bilateral anterior PAGE 1 Signed Report (CONTINUED) FAX: Aki Espitia MD [phone] Smith: St: ADM Name: TORI TRIPLETT [facility] : 1945 Age/S: 72/M [address] [place] [address] Blvd Unit #: [id number] Loc: [address] [place] [address] Phys: Aki Mtz MD Acct: [id number] Dis Date: Status: ADM IN PHONE #: [phone] Exam Date: 07/2018 1509 FAX #: [phone] Reason: Right arm numb ness EXAMS: CPT CODE: [id number] MRI BRAIN WO/W CONT 70 553 <Continued> [...] have a normal course caliber and contour. Jdvr-rj-rcmbtdnf atherosclerotic irregularity along the right carotid bulb [...] Re port (CONTINUED) FAX: Aki Espitia MD Smith: St: ADM Name: TORI TRIPLETT [facility] : 1945 Age/S: 72/M [address] [place] [address] Bl Unit #: [id number] Loc: [address] [address] Phys: Aki Mtz MD Acct: [id number] Dis Date: Status: ADM IN PHONE #: [phone] Exam Date: 11/27/2018 1503 FAX #: [phone] Reason: Right arm numbness EXAMS: CPT CODE: [id number] MRI BRAIN WO/W CONT 26885 < Continued> along the bilateral cavernous and [...] 3 Signed Report - MRI BRAIN WO/W [id number] 19:10:00 FAX: Aki Espitia MD [phone] Smith: St: ADM Name: Arsh JAYSKIP REDDZTORI [facility] : 11/[birth year] Age/S: 72/M [address] [place] [address] Unit #: [id number] Loc: G.[address] [place] [address] Phys: Aki Mtz MD Acct: [id number] Dis Date: Status: ADM IN PHONE #: [phone] Exam Date: 11/27/2018 0394 FAX #: [phone] Reason: Right arm numbness EXAMS: CPT CODE: [id number] MRI BRAIN WO/W CONT 66089 INDICATION: Right arm numbness, tr ansient ischemic [...] three-dimensional maximum inten sity rotational projections. 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 Mild to moderate areas of atherosclerotic irregularity along the bilateral cavernous and supraclinoid internal carotid arteries with mild to moderate focal stenosis. Bilateral anterior PAGE 1 Signed Report (CONTINUED) FAX: Aki Espitia MD [phone] Smith: St: ADM Name: TORI GREGORY [facility] : 1945 Age/S: 72/M [address] [place] [address] Blvd Unit #: [id number] Loc: [address] [place] [address] Phys: Aki Mtz MD Acct: [id number] Dis Date: Status: ADM IN PHONE #: [phone] Exam Date: 07/2018 1509 FAX #: [phone] Reason: Right arm numb ness EXAMS: CPT CODE: [id number] MRI BRAIN WO/W CONT 70 553 <Continued> [...] have a normal course caliber and contour. Xtnp-da-kdicbovq atherosclerotic irregularity along the right carotid bulb [...] Re port (CONTINUED) FAX: Aki Espitia MD Smith: St: ADM Name: TORI GREGORY [facility] : 1945 Age/S: 72/M [address] [place], [place] [address]vd Unit #: [id number] Loc: [address] [address] Phys: Aki Mtz MD Acct: [id number] Dis Date: Status: ADM IN PHONE #: [phone] Exam Date: 11/27/2018 1509 FAX #: [phone] Reason: Right arm numbness EXAMS: CPT CODE: [id number] MRI BRAIN WO/W CONT 56445 < Continued> along the bilateral cavernous and [...] Trnscrd Date/Time/By: 11/27/2018 (1909) : By: [email or web address] [facility] Print D/T: S: 11/27/2018 (1912) PAGE 3 Signed Report [id number] 17:14:00* Test Item Value Reference Range Interpretation Comments GLUBED (test code = GLUBED) 105 MG/DL 70-110 N Performed by certified vacuum furnace operator at [facility] [id number] 11:52:00* Test Item Value Reference Range Interpretation Comments GLUBED (test code = GLUBED) 140 MG/DL 70-110 H Performed by certified vacuum furnace operator at [facility] B-TYPE NATRIURETIC [id number] 09:28:00* Test Item Value Reference Range Interpretation Comments B-TYPE NATRIURETIC PEPTIDE (test code = BNP) 827.3 PG/ML 0-100 H [id number] 09:22:00* Test Item Value Reference Range Interpretation Comments MAGNESIUM (test code = MAG) 1.90 mg/dL 1.8-2.4 N THYROID STIMULATING [id number] 09:22:00* Test Item Value Reference Range Interpretation Comments THYROID STIMULATING HORMONE (test code = TSH) 1.16 0.42-5.4 7 N Results in yogesh- [employer] Units/mL HGBA1C%2018-11-27 08:10:00* Test Item Value Reference Range Interpretation Comments HGBA1C% (test code = HGBA1C%) 7.8 %A1C 4.8-6.0 H [id number] 08:04:00* Test Item Value Reference Range Interpretation Comments GLUBED (test code = GLUBED) 127 MG/DL 70-110 H Performed by certified vacuum furnace operator at [facility] CBC W/AUTO [id number] 07:13:00* Test Item Value Reference Range Interpretation [...] DIFF REQUIRED (test code = MDIFF) NO [id number] 20:51:00* Test Item Value Reference Range Interpretation Comments GLUBED (test code = GLUBED) 215 MG/DL 70-110 H Performed by certified vacuum furnace operator at [facility] [id number] 12:29:00* Test Item Value Reference Range Interpretation Comments GLUBED (test code = GLUBED) 140 MG/DL 70-110 H Performed by certified vacuum furnace operator at [facility] [id number] 06:57:00* Test Item Value Reference Range Interpretation [...] = LDL) 61 mg/dL 0-100 N <100 CWUPMRL217-195 NEAR OPTIMAL/ABOVE GCSCUVB348-602 OSVBASXGYR906-815 HIGH>QJ=167 VERY HIGH*Guidelines provided by the National Cholesterol EducationProgram Adult Treatment Panel III [id number]-W0939-08-30 03:55:00* Test Item Value Reference Range Interpretation [...] troponin done in ED)- CT ABD PELVIS [id number] 03:04:00 Name: TORI TRIPLETT [facility] : 1945 Age/S: 72 / M [address] [place] [address] Unit #: [id number] Loc: [place] [address] Phys: Av Danielle MD Acct: [id number] Dis Date: Status: ADM IN PHONE #: [phone] Exam Date: 11/26/2018 0236 FAX #: [phone] Reason: nausea/vomiting, +UA, elevated WBC count EXAMS: CPT CODE: [id number] CT ABD PELVIS W/CONT 18966 PROCEDURE: CT abdomen and pelvis with contrast [...] Signed Rep ort (CONTINUED) Name: TORI TRIPLETT [facility] : 1945 Age/S: 72 / M [address] [facility] [address] Unit #: [id number] Loc: [place], [place] [address] Phys: Av Danielle MD Acct: [id number] Dis Date: Status: ADM IN PHONE #: [phone] Exam Date: 11/26/2018 0236 FAX #: [phone] Reason: nausea/vomiting, +UA, elevat ed WBC count EXAMS: CPT CODE: [id number] CT ABD PELVIS W/CONT 67625 <Continued> ADDITIONAL FINDINGS: None. IMPRESSION: 1. Prostatic [...] Technologist:RT Bhavya(R) CTDI: DLP: Trnscb Date/Time: 11/26/2018 (0304) t.BARBIR.DMM Orig Print D/T: S: 11/26/2018 (0308) CTDI: DLP: PAGE 2 Signed Report - CT ABD PELVIS [id number] 03:04:00 Name: TORI GREGORY [facility] [place] : 1945 Age/S: 72 / M [address] [place] [address] Unit #: [id number] Loc: [place] [address] Phys: Av Danielle MD Acct: [id number] Dis Date: Status: ADM IN PHONE #: [phone] Exam Date: 11/26/2018 0236 FAX #: [phone] Reason: nausea/vomiting, +UA, elevated WBC count EXAMS: CPT CODE: [id number] CT ABD PELVIS W/CONT 63713 PROCEDURE: CT abdomen and pelvis with contrast [...] renal collecting system obstruction or calcified renal collecti ng system stone. Nonspecific stranding is identified in the perinephric f at bilaterally. BILIARY: The gallbladder is normally distended. N o significant biliary ductal dilatation is identified. BOWEL : No acute CT abnormalities of the bowel are identified. No small bowel d ilatation is present to suggest obstruction. The appendix is identified a nd is not acutely inflamed. Scattered colonic diverticula are identified. There is no CT evidence of acute diverticulitis or inflammatory colonic wall thickening. PERITONEUM: There is no evidence of free intraper itoneal air or significant free intraperitoneal fluid. RETRO PERITONEUM: The abdominal aorta is normal in caliber. There is no evidenc e of retroperitoneal mass or adenopathy. PELVIS: The [...] Signed Rep ort (CONTINUED) Name: TORI GREGORY [facility] : 1945 Age/S: 72 / M [address] Unit #: [id number] Loc: [place], [place] [address] Phys: Av Danielle MD Acct: [id number] Dis Date: Status: ADM IN PHONE #: [phone] Exam Date: 11/26/2018 023 FAX #: [phone] Reason: nausea/vomiting, +UA, elevat ed WBC count EXAMS: CPT CODE: [id number] CT ABD PELVIS W/CONT 99592 <Continued> ADDITIONAL FINDINGS: None. IMPRESSION: 1. Prostatic [...] Bhavya(R) CTDI: DLP: Trnscb Date/Time: 11/26/2018 (303) tCHETNA Orig Print D/T: S: 11/26/2018 (030) CTDI: DLP: PAGE 2 Signed Report PROTHROMBIN [id number] 01:27:00* Test Item Value Reference Range Interpretation [...] Infarction (to prevent recurrent infarct). THROMBOPLASTIN TIME [id number] 01:27:00* Test Item Value Reference Range Interpretation Comments THROMBOPLASTIN TIME PARTIAL (test code = PTT) 29.8 Seconds 25.0-39. 5 N Therapeutic Range: 50.4 - 88.3 Seconds Effective 11/12/2018 BASIC METABOLIC [id number] 01:14:00* Test Item Value Reference Range Interpretation [...] CA) 8.9 mg/dL 8.0-10.5 N HEPATIC FUNCTION [id number] 01:14:00* Test Item Value Reference Range Interpretation [...] code = ALKP) 68 IUnit/L 20-125 N [id number] 01:14:00* Test Item Value Reference Range Interpretation Comments LIPASE (test code = LIP) 135 IUnit/L 73-393 N [id number] 01:14:00* Test Item Value Reference Range Interpretation Comments TROPONIN-I (test code = TROPI) 0.043 ng/mL 0.000-0.045 N Negative: <= 0.045 Positive: >= 0.046 Correlation with serial results, other cardiac markers andclinical findings is necessary to determine the clinicalsignificance of this result. Results using different methodologies should not be comparedto one another as quantitative results may vary by method. URINALYSIS [id number] 01:11:00* Test Item Value Reference Range Interpretation [...] SQU) 0-5 /HPF NONE SEEN CBC W/O [id number] 01:01:00* Test Item Value Reference Range Interpretation [...] fL 7.0-9.0 H - XR CHEST 1 [id number] 00:37:00 FAX: Av Danielle MD [phone] Smith: St: REG Name: TORI WILSON [facility] : [birth year] Age/S: 72/M [address] [place] [address] Unit #: [id number] Loc: [address] [place] [address] Phys: Av Danielle MD Acct: [id number] Dis Date: Status: REG ER PHONE #: [phone] Exam Date: 11/26/201821 FAX #: [phone] Reason: stroke EXAMS: CPT CODE: [id number] XR CHEST 1 V 88638 Chest, single view dated 11/26/2018 . HISTORY: Stroke. Nausea and vomiting. Comparison is made to a prior study dated 10/01/2014. The patient is status pos t median sternotomy. The heart is enlarged. Atherosclerotic calcificatio n is identified in the aortic arch. Ill-defined [...] congestive heart failure. SL: 131 at 0037 * * Reported and signed by: Daniele Baxter M.D. CC: Av Danielle MD [facility] gist: Claudio Zelaya RT(R) Trnscrd Date/Time/B y: 11/26/2018 (0037) : By: Marlin Orig Print D/T: S: 11/26/2018 (00 40) PAGE 1 Signed Report - XR CHEST 1 [id number] 00:37:00 FAX: Av Danielle MD [phone] Smith: St: ADM Name: TORI SOMERS [facility] : 11/28/[birth year] Age/S: 72/M [address] [place] [address] Blvd Unit #: [id number] Loc: [address] [place] [address] Phys: Av Danielle MD Acct: [id number] Dis Date: Status: ADM IN PHONE #: [phone] Exam Date: 11/26/2018 0022 FAX #: [phone] Reason: stroke EXAMS: CPT CODE: [id number] XR CHEST 1 V 29603 Chest, single view dated 11/26/2018 . HISTORY: Stroke. Nausea and vomiting. Comparison is made to a prior study dated 10/01/2014. The patient is status pos t median sternotomy. The heart is enlarged. Atherosclerotic calcificatio n is identified in the aortic arch. Ill-defined [...] congestive heart failure. SL: 131 at 0037 * * Reported and signed by: Daniele Baxter M.D. CC: Av Dainelle MD [facility] gist: RT Myron(R) Trnscrd Date/Time/B y: 11/26/2018 (0037) : By: LatoyaM Orig Print D/T: S: 11/26/2018 (00 40) PAGE 1 Signed Report - CT HEAD/BRAIN W/O [id number] 00:34:00 Name: TORI TRIPLETT [facility] : 1945 Age/S: 72 / M [address] [place], [place] [address]vd Unit #: [id number] Loc: [place] [address] Phys: Destin Danielle MD Acct: [id number] Di s Date: Status: REG ER PHONE #: Exam Date: 11/26/2018 0010 FAX #: Reason: nausea/vomiting, dizziness EXAMS: CPT CODE: [id number] CT HEAD/BRAIN W/O CONT 18313 CT head without contrast . CLINICAL HISTORY: [...] Angelic(R) CTDI: DLP: Trnscb Date/Time: 11/26/2018 (0034) MahendraR.[email or web address] Orig Print D/T: S: 11/26/2018 (0038) CTDI: DLP: PAGE 1 Signed Report - CT HEAD/BRAIN W/O [id number] 00:34:00 Name: TORI GREGORY [facility] : 1945 Age/S: 72 / M [address] [place] [address] Blvd Unit #: [id number] Loc: [place] [address] Phys: Av Danielle MD Acct: [id number] Dis Date: Status: ADM IN PHONE #: [phone] Exam Date: 11/26/2018 0010 FAX #: [phone] Reason: nausea/vomiting, dizziness EXAMS: CPT CODE: [id number] CT HEAD/BRAIN W/O CONT 52312 CT head without contrast . CLINICAL HISTORY: [...] Angelic(R) CTDI: DLP: Trnscb Date/Time: 11/26/2018 (0034) t.SDR.UK1 Orig Print D/T: S: 11/26/2018 (0038) CTDI: DLP: PAGE 1 Signed Report GLUBED 2018-09-11 20:59:00* Test Item Value Reference Range Interpretation Comments GLUBED (test code = GLUBED) 89 MG/DL 70-110 N Performed by certified vacuum furnace operator at [facility] [id number] 08:03:00* Test Item Value Reference Range Interpretation Comments MAGNESIUM (test code = MAG) 2.40 mg/dL 1.8-2.4 N [id number] 06:23:00* Test Item Value Reference Range Interpretation Comments GLUBED (test code = GLUBED) 128 MG/DL 70-110 H Performed by certified vacuum furnace operator at [facility] [id number] 21:04:00* Test Item Value Reference Range Interpretation Comments GLUBED (test code = GLUBED) 137 MG/DL 70-110 H Performed by certified vacuum furnace operator at [facility] [id number] 16:29:00* Test Item Value Reference Range Interpretation Comments GLUBED (test code = GLUBED) 113 MG/DL 70-110 H Performed by certified vacuum furnace operator at [facility] [id number] 11:05:00* Test Item Value Reference Range Interpretation Comments GLUBED (test code = GLUBED) 162 MG/DL 70-110 H Performed by certified vacuum furnace operator at [facility] [id number] 06:16:00* Test Item Value Reference Range Interpretation Comments GLUBED (test code = GLUBED) 67 MG/DL 70-110 L Performed by certified vacuum furnace operator at [facility] [id number] 20:55:00* Test Item Value Reference Range Interpretation Comments GLUBED (test code = GLUBED) 164 MG/DL 70-110 H Performed by certified vacuum furnace operator at [facility] [id number] 16:19:00* Test Item Value Reference Range Interpretation Comments GLUBED (test code = GLUBED) 79 MG/DL 70-110 N Performed by certified vacuum furnace operator at [facility] [id number] 11:39:00* Test Item Value Reference Range Interpretation Comments GLUBED (test code = GLUBED) 116 MG/DL 70-110 H Performed by certified vacuum furnace operator at [facility] COMPREHENSIVE METABOLIC [id number] 08:10:00* Test Item Value Reference Range Interpretation [...] ALKP) 85 IUnit/L 20-125 N CBC W/AUTO [id number] 07:59:00* Test Item Value Reference Range Interpretation [...] DIFF REQUIRED (test code = MDIFF) NO [id number] 05:58:00* Test Item Value Reference Range Interpretation Comments GLUBED (test code = GLUBED) 71 MG/DL 70-110 N Performed by certified vacuum furnace operator at [facility] [id number] 19:17:00* Test Item Value Reference Range Interpretation Comments GLUBED (test code = GLUBED) 150 MG/DL 70-110 H Performed by certified vacuum furnace operator at [facility] [id number] 16:47:00* Test Item Value Reference Range Interpretation Comments GLUBED (test code = GLUBED) 202 MG/DL 70-110 H Performed by certified vacuum furnace operator at [facility] [id number] 16:47:00* Test Item Value Reference Range Interpretation Comments GLUBED (test code = GLUBED) 88 MG/DL 70-110 N Performed by certified vacuum furnace operator at [facility] [id number] 08:36:00* Test Item Value Reference Range Interpretation Comments GLUBED (test code = GLUBED) 103 MG/DL 70-110 N Performed by certified vacuum furnace operator at [facility] [id number] 06:48:00* Test Item Value Reference Range Interpretation Comments GLUBED (test code = GLUBED) 60 MG/DL 70-110 L Performed by certified vacuum furnace operator at [facility] [id number] 19:57:00* Test Item Value Reference Range Interpretation Comments GLUBED (test code = GLUBED) 267 MG/DL 70-110 H Performed by certified vacuum furnace operator at [facility] [id number] 19:57:00* Test Item Value Reference Range Interpretation Comments GLUBED (test code = GLUBED) 95 MG/DL 70-110 N Performed by certified vacuum furnace operator at [facility] [id number] 19:57:00* Test Item Value Reference Range Interpretation Comments GLUBED (test code = GLUBED) 107 MG/DL 70-110 N Performed by certified vacuum furnace operator at [facility]2019-02-09 07:20:00* Test Item Value Reference Range Interpretation Comments GLUBED (test code = GLUBED) 75 MG/DL 70-110 N Performed by certified vacuum furnace operator at [facility]2019-02-08 20:40:00* Test Item Value Reference Range Interpretation Comments GLUBED (test code = GLUBED) 101 MG/DL 70-110 N Performed by certified vacuum furnace operator at [facility]2019-02-08 17:32:00* Test Item Value Reference Range Interpretation Comments GLUBED (test code = GLUBED) 103 MG/DL 70-110 N Performed by certified vacuum furnace operator at [facility] [id number] 11:35:00* Test Item Value Reference Range Interpretation Comments GLUBED (test code = GLUBED) 83 MG/DL 70-110 N Performed by certified vacuum furnace operator at [facility] [id number] 06:46:00* Test Item Value Reference Range Interpretation Comments GLUBED (test code = GLUBED) 71 MG/DL 70-110 N Performed by certified vacuum furnace operator at [facility] [id number] 20:44:00* Test Item Value Reference Range Interpretation Comments GLUBED (test code = GLUBED) 88 MG/DL 70-110 N Performed by certified vacuum furnace operator at [facility] [id number] 16:11:00* Test Item Value Reference Range Interpretation Comments GLUBED (test code = GLUBED) 154 MG/DL 70-110 H Performed by certified vacuum furnace operator at [facility] [id number] 11:36:00* Test Item Value Reference Range Interpretation Comments GLUBED (test code = GLUBED) 82 MG/DL 70-110 N Performed by certified vacuum furnace operator at [facility]2019-02-07 05:52:00* Test Item Value Reference Range Interpretation Comments GLUBED (test code = GLUBED) 98 MG/DL 70-110 N Performed by certified vacuum furnace operator at [facility] [id number] 20:10:00* Test Item Value Reference Range Interpretation Comments GLUBED (test code = GLUBED) 125 MG/DL 70-110 H Performed by certified vacuum furnace operator at [facility] [id number] 16:49:00* Test Item Value Reference Range Interpretation Comments GLUBED (test code = GLUBED) 190 MG/DL 70-110 H Performed by certified vacuum furnace operator at [facility] - XR CHEST 2 [id number] 11:57:00 FAX: Claudio Messer [phone] Smith: St: ADM Name: TORI SOMERS [facility] : [birth year] Age/S: 72/M [address] [place] [address] Unit #: [id number] Loc: [address] [address] Phys: Claudio Mendoza MD Acct: [id number] Dis Date: Status: ADM IN PHONE #: [phone] Exam Date: 09/04/2018 1126 FAX #: [phone] Reason: FOLLOW PLEURAL EFFUSION (REASSESS) EXAMS: CPT CODE: [id number] XR CHEST 2 V 98153 Clinical Indication: Follow-up on pleural effusion; Comparison: Single view chest radiograph from . FINDINGS: The PA and lateral chest radiographs shows normal lung volumes with no significant interval change . There is a moderate left-sided pleural effusion, with expected underlyi ng patchy and reticular airspace opacities also noted. [...] foci or infiltrates. 2. Stable cardiomegaly. SL: [id number] E lectronically Signed by Marcos Fatima on 09/04/2018 at 1157 Reported and signed by: Rj Fatima D.O. CC: Claudio Mendoza MD Technologist: RT Glenys(R) Trnscrd Date/Time/By: 09/04/2018 (1157) : By: Shantelle K34 Orig Print D/T: S: 09/04/2018 (1200) PAGE 1 Signed Report GLUBED 2018-09-04 11:20:00* Test Item Value Reference Range Interpretation Comments GLUBED (test code = GLUBED) 133 MG/DL 70-110 H Performed by certified vacuum furnace operator at [facility] [id number] 06:15:00* Test Item Value Reference Range Interpretation Comments GLUBED (test code = GLUBED) 117 MG/DL 70-110 H Performed by certified vacuum furnace operator at [facility] [id number] 19:53:00* Test Item Value Reference Range Interpretation Comments GLUBED (test code = GLUBED) 150 MG/DL 70-110 H Performed by certified vacuum furnace operator at [facility] [id number] 15:58:00* Test Item Value Reference Range Interpretation Comments GLUBED (test code = GLUBED) 151 MG/DL 70-110 H Performed by certified vacuum furnace operator at [facility] VITAMIN D 1,03-[id number] 11:20:00* Test Item Value Reference Range Interpretation Comments VITAMIN D 1,25-DIHYDROXY (test code = JZVQ204) 14.2 pg/mL 19.9-79 .3 A Performed At: [address] [id number] Sanjai MD Ph:[phone] [id number] 10:57:00* Test Item Value Reference Range Interpretation Comments GLUBED (test code = GLUBED) 178 MG/DL 70-110 H Performed by certified vacuum furnace operator at [facility] [id number] 10:57:00* Test Item Value Reference Range Interpretation Comments GLUBED (test code = GLUBED) 118 MG/DL 70-110 H Performed by certified vacuum furnace operator at [facility] [id number] 19:57:00* Test Item Value Reference Range Interpretation Comments GLUBED (test code = GLUBED) 182 MG/DL 70-110 H Performed by certified vacuum furnace operator at [facility] [id number] 17:25:00* Test Item Value Reference Range Interpretation Comments GLUBED (test code = GLUBED) 171 MG/DL 70-110 H Performed by certified vacuum furnace operator at [facility] [id number] 11:32:00* Test Item Value Reference Range Interpretation Comments GLUBED (test code = GLUBED) 209 MG/DL 70-110 H Performed by certified vacuum furnace operator at [facility] [id number] 06:36:00* Test Item Value Reference Range Interpretation Comments GLUBED (test code = GLUBED) 111 MG/DL 70-110 H Performed by certified vacuum furnace operator at [facility] [id number] 20:17:00* Test Item Value Reference Range Interpretation Comments GLUBED (test code = GLUBED) 242 MG/DL 70-110 H Performed by certified vacuum furnace operator at [facility] [id number] 16:46:00* Test Item Value Reference Range Interpretation Comments GLUBED (test code = GLUBED) 281 MG/DL 70-110 H Performed by certified vacuum furnace operator at [facility] [id number] 11:23:00* Test Item Value Reference Range Interpretation Comments GLUBED (test code = GLUBED) 207 MG/DL 70-110 H Performed by certified vacuum furnace operator at [facility] [id number] 07:14:00* Test Item Value Reference Range Interpretation Comments GLUBED (test code = GLUBED) 160 MG/DL 70-110 H Performed by certified vacuum furnace operator at [facility] [id number] 05:58:00* Test Item Value Reference Range Interpretation Comments GLUBED (test code = GLUBED) 162 MG/DL 70-110 H Performed by certified vacuum furnace operator at [facility] [id number] 21:19:00* Test Item Value Reference Range Interpretation Comments GLUBED (test code = GLUBED) 197 MG/DL 70-110 H Performed by certified vacuum furnace operator at [facility] BASIC METABOLIC [id number] 17:01:00* Test Item Value Reference Range Interpretation [...] CA) 8.8 mg/dL 8.0-10.5 N COMPREHENSIVE METABOLIC [id number] 17:01:00* Test Item Value Reference Range Interpretation [...] ALKP) 78 IUnit/L 20-125 N BASIC METABOLIC [id number] 16:59:00* Test Item Value Reference Range Interpretation [...] CA) 8.8 mg/dL 8.0-10.5 N COMPREHENSIVE METABOLIC [id number] 16:59:00* Test Item Value Reference Range Interpretation Comments TOTAL PROTEIN (test code = PROT) g/dL 6.4-8.2 ALBUMIN (test code = ALB) 2.50 g/dL 3.4-5.0 L BILIRUBIN TOTAL (test code = BILT) mg/dL 0.0-1.0 SGOT/AST (test code = AST) 17 IUnit/L 15-37 N SGPT/ALT (test code = ALT) 54 IUnit/L 15-65 N ALKALINE PHOSPHATASE TOTAL (test code = ALKP) IUnit/L 20-125 [id number] 16:38:00* Test Item Value Reference Range Interpretation Comments GLUBED (test code = GLUBED) 236 MG/DL 70-110 H Performed by certified vacuum furnace operator at [facility] [id number] 12:24:00* Test Item Value Reference Range Interpretation Comments GLUBED (test code = GLUBED) 207 MG/DL 70-110 H Performed by certified vacuum furnace operator at [facility] [id number] 06:23:00* Test Item Value Reference Range Interpretation Comments GLUBED (test code = GLUBED) 176 MG/DL 70-110 H Performed by certified vacuum furnace operator at [facility] [id number] 21:12:00* Test Item Value Reference Range Interpretation Comments GLUBED (test code = GLUBED) 235 MG/DL 70-110 H Performed by certified vacuum furnace operator at [facility] [id number] 16:46:00* Test Item Value Reference Range Interpretation Comments GLUBED (test code = GLUBED) 312 MG/DL 70-110 H Performed by certified vacuum furnace operator at [facility] [id number] 12:28:00* Test Item Value Reference Range Interpretation Comments GLUBED (test code = GLUBED) 230 MG/DL 70-110 H Performed by certified vacuum furnace operator at [facility] VITAMIN [id number] 09:27:00* Test Item Value Reference Range Interpretation Comments VITAMIN B12 (test code = VITB12) 4724 pg/mL 193-986 H FOLIC [id number] 09:27:00* Test Item Value Reference Range Interpretation Comments FOLIC ACID (test code = FOL) 14.9 ng/mL 3.1-17.5 N THYROID STIMULATING [id number] 09:27:00* Test Item Value Reference Range Interpretation Comments THYROID STIMULATING HORMONE (test code = TSH) 1.34 0.42-5.4 7 N Results in yogesh- International Units/mL [id number] 07:17:00* Test Item Value Reference Range Interpretation Comments GLUBED (test code = GLUBED) 193 MG/DL 70-110 H Performed by certified vacuum furnace operator at [facility] [id number] 21:21:00* Test Item Value Reference Range Interpretation Comments GLUBED (test code = GLUBED) 285 MG/DL 70-110 H Performed by certified vacuum furnace operator at [facility] [id number] 16:42:00* Test Item Value Reference Range Interpretation Comments GLUBED (test code = GLUBED) 285 MG/DL 70-110 H Performed by certified vacuum furnace operator at [facility] [id number] 15:10:00* Test Item Value Reference Range Interpretation Comments SGOT/AST (test code = AST) 23 IUnit/L 15-37 N COMMENTS: blood in labSGPT/[id number] 15:10:00* Test Item Value Reference Range Interpretation Comments SGPT/ALT (test code = ALT) 91 IUnit/L 15-65 H COMMENTS: blood in lab- XR CHEST 1 [id number] 12:48:00 FAX: Shalom Lisa I [phone] Smith: St: [facility] FAX: Candie Reinosoh (C Name: TORI GREGORY [facility]: 1945 Age/S: 72/M [address] [place] [address] Blvd Unit #: [id number] Loc: [address] [place] [address] Phys: Candie Reinoso) HYDROGENATION OPERATOR Acct: [id number] Dis Date: Status: ADM IN PHONE #: [phone] Exam Date: 08/29/2018 1125 FAX #: [phone] Reason: f/u pleural effusion. s/p cabg EXAMS: CPT CODE: [id number] XR CHEST 1 V 37403 CHEST 1 VIEW: 08/29/2018 COMPARISON: August [address] chest dated August 27, 2018 CLINICAL HISTORY: f/u pleur al effusion. s/p cabg FINDINGS: Median sternotomy wires are presen t. Cardiomediastinal silhouette is stable in size. There are bibasilar infiltrates, left greater than right with associated moderate l eft pleural effusion. No pneumothorax is seen. IMP RESSION: Moderate left pleural effusion with bibasilar infilt rates, left greater than right. at 1496 Reported and signed by: Cedrick Cervantes M.D. CC: Shalom Guillermo MD; Candie Reinoso NP (Christy) Technologist: Rae Solorzano, RT(R); Grecia Baird RT(R ) Trnscrd Date/Time/By: 08/29/2018 (5878) : By: KortneyAJ13 O rig Print D/T: S: 08/29/2018 (2552) PAGE 1 Signed Report [id number] 12:00:00 * Test Item Value Reference Range Interpretation Comments GLUBED (test code = GLUBED) 304 MG/DL 70-110 H Performed by certified vacuum furnace operator at [facility] [id number] 08:34:00* Test Item Value Reference Range Interpretation Comments GLUBED (test code = GLUBED) 206 MG/DL 70-110 H Performed by certified vacuum furnace operator at [facility] BASIC METABOLIC [id number] 04:21:00* Test Item Value Reference Range Interpretation [...] code = CA) 9.2 mg/dL 8.0-10.5 N [id number] 04:21:00* Test Item Value Reference Range Interpretation Comments MAGNESIUM (test code = MAG) 2.10 mg/dL 1.8-2.4 N CBC W/AUTO [id number] 04:09:00* Test Item Value Reference Range Interpretation [...] DIFF REQUIRED (test code = MDIFF) NO [id number] 21:41:00* Test Item Value Reference Range Interpretation Comments GLUBED (test code = GLUBED) 230 MG/DL 70-110 H Performed by certified vacuum furnace operator at [facility] [id number] 16:36:00* Test Item Value Reference Range Interpretation Comments GLUBED (test code = GLUBED) 315 MG/DL 70-110 H Performed by certified vacuum furnace operator at [facility] [id number] 11:10:00* Test Item Value Reference Range Interpretation Comments GLUBED (test code = GLUBED) 287 MG/DL 70-110 H Performed by certified vacuum furnace operator at [facility] [id number] 08:15:00* Test Item Value Reference Range Interpretation Comments GLUBED (test code = GLUBED) 170 MG/DL 70-110 H Performed by certified vacuum furnace operator at [facility] BASIC METABOLIC [id number] 04:34:00* Test Item Value Reference Range Interpretation [...] code = CA) 9.0 mg/dL 8.0-10.5 N [id number] 20:25:00* Test Item Value Reference Range Interpretation Comments GLUBED (test code = GLUBED) 289 MG/DL 70-110 H Performed by certified vacuum furnace operator at [facility] [id number] 17:04:00* Test Item Value Reference Range Interpretation Comments GLUBED (test code = GLUBED) 246 MG/DL 70-110 H Performed by certified vacuum furnace operator at [facility] - CT CHEST W/O [id number] 14:11:00 Name: TORI GREGORY [facility] : 1945 Age/S: 72 / M [address] [place] [address] Blvd Unit #: [id number] Loc: [place] [address] Phys: Candie Reinoso (Beckie) HYDROGENATION OPERATOR Acct: [id number] Dis Date: Status: ADM IN PHONE #: [phone] Exam Date: 08/27/2018 1320 FAX #: [phone] Reason: F/U PLEURAL EFFUSION. EVALUATE FOR POSS THORACO EXAMS: CPT CODE: [id number] CT CHEST W/O CONTRAST 07877 EXAM: CT CHEST WITHOUT CONTRAST DATE: 08/27/2018 [...] or the lower neck and thyroid are unrem arkable. Lymph Nodes: There is no mediastinal or hilar lymphadenop athy. No axillary lymphadenopathy. Heart, pericardiu m and aorta: : The heart is enlarged. No pericardial effusion. There are c oronary artery calcifications. Cardiac surgery changes are seen within th e anterior mediastinum. Atheromatous changes are present in the aorta.. LUNGS: Persistent moderate atelectatic changes in the left lower lo be. Improved aeration of the right lung base compared to prior exam ination. Breathing changes limits evaluation. Unchanged mild to moderate left pleural effusion. Interval decrease in small right pleural effusion . No pleural effusions. The central airway is patent. Upper abdom en: Unremarkable. Soft tissues: Sternotomy changes. Bones: No acute abnormality. Age-related degenerative findings. PAGE 1 Signed Report (CONTINUED) Name: TORI GREGORY [facility] : 1945 Age/S: 72 / M [address] [place] [address] Unit #: [id number] Loc: [place] [address] Phys: Maribel Reinosoh (Beckie) HYDROGENATION OPERATOR Acct: [id number] Di s Date: Status: ADM IN PHONE #: 1 [phone] Exam Date: 08/27/2018 5113 FAX #: Reason: F/U PLEURAL EFFUSION. EVALUATE FOR POSS THORACO EXAMS: CPT CODE: [id number] CT CHEST W/O CONTRAST 39869 <Continued> IMPRESSION: 1. Persistent moderate atelectatic changes in the left lower lobe. Improved aeration of the right lung base compared to prior examination. Unchanged mild to moderate left pleural effusion. Interval decrease in small right pleural effusion. Superimposed bilateral lower lobes infectious process cannot be excluded. 2. Postsurgical changes with some fluid within the anterior mediastinum. SL: [id number] at 1411 Reported and signed by: Rachel Glaser D.O. CC: Shalom Guillermo MD; Candie Reinoso NP (Christy) Technologist:Marito Gordon, RT(R)(CT) CTDI: DLP: Trnscb Da te/Time: 08/27/2018 (1411) t.SDR.MP37 Orig Print D/T: S: 0 08/27/2018 (6825) CTDI: DLP: PAGE 2 Signed Report [id number] 12:43:00* Test Item Value Reference Range Interpretation Comments GLUBED (test code = GLUBED) 310 MG/DL 70-110 H Performed by certified vacuum furnace operator at [facility] [id number] 09:02:00* Test Item Value Reference Range Interpretation Comments GLUBED (test code = GLUBED) 172 MG/DL 70-110 H Performed by certified vacuum furnace operator at [facility] FLUID [id number] 04:17:00* Test Item Value Reference Range Interpretation [...] DIAGNOSIS :NEW ONSET CONGESTIVE HEART FAILUREPLEURAL FLUIDFLUID [id number] 04:17:00* Test Item Value Reference Range Interpretation [...] DIAGNOSIS :NEW ONSET CONGESTIVE HEART FAILUREPLEURAL FLUIDFLUID [id number] 04:17:00* Test Item Value Reference Range Interpretation [...] CA) 8.6 mg/dL 8.0-10.5 N HEPATIC FUNCTION [id number] 04:03:00* Test Item Value Reference Range Interpretation [...] ALKP) 75 IUnit/L 20-125 N CBC W/AUTO [id number] 03:49:00* Test Item Value Reference Range Interpretation [...] DIFF REQUIRED (test code = MDIFF) NO [id number] 21:52:00* Test Item Value Reference Range Interpretation Comments GLUBED (test code = GLUBED) 387 MG/DL 70-110 H Performed by certified vacuum furnace operator at [facility] [id number] 17:00:00* Test Item Value Reference Range Interpretation Comments GLUBED (test code = GLUBED) 250 MG/DL 70-110 H Performed by certified vacuum furnace operator at [facility] - XR CHEST 1 [id number] 15:29:00 FAX: Shalom Lisa I [phone] Smith: St: [facility] FAX: Bandar Storm [phone] Name: TORI GREGORY [facility] : 1945 Age/S: 72/M [address] [place] [address] Blvd Unit #: [id number] Loc: G.[address] [place] [address] Phys: Bandar Rausch MD Acct: [id number] Dis Date: Status: ADM IN PHONE #: [phone] Exam Date: 08/26/2018 1524 FAX #: [phone] Reason: Post tap on right EXAMS: CPT CODE: [id number] XR CHEST 1 V 30102 CHEST, SINGLE VIEW HISTORY: Right pleural effusion, postthoracentesis Comparison made to chest x-ray dated 08/22/18. FINDINGS: There is no right pneumothorax postthor acentesis. Heart is enlarged. Pulmonary vascularity is indistinct. Left effusion volumes increased from 08/22/18. IMPRESSION: 1. No pneumothorax following right thoracentesis. 2. Congestive heart failure, increased volume left pleural effusion from 08/22/18. SL:01 Electronic ally Signed by Jin Perez on 08/26/2018 at 1529 Reported and signed by: William castro M.D. CC: Shalom Guillermo MD; Bandar Rausch MD Technologist: Jolie Grier, RT(R), RTT Tr [place] Date/Time/By: 08/26/2018 (1529) : By: Shilpi Orig Print D/T: S: 08/26/2018 (1532) PAGE 1 Alejandra d Report [id number] 11:31:00* Test Item Value Reference Range Interpretation Comments GLUBED (test code = GLUBED) 316 MG/DL 70-110 H Performed by certified vacuum furnace operator at [facility] [id number] 08:11:00* Test Item Value Reference Range Interpretation Comments GLUBED (test code = GLUBED) 176 MG/DL 70-110 H Performed by certified vacuum furnace operator at [facility] BASIC METABOLIC [id number] 04:40:00* Test Item Value Reference Range Interpretation [...] CA) 8.7 mg/dL 8.0-10.5 N HEPATIC FUNCTION [id number] 04:40:00* Test Item Value Reference Range Interpretation [...] ALKP) 78 IUnit/L 20-125 N CBC W/AUTO [id number] 04:22:00* Test Item Value Reference Range Interpretation [...] DIFF REQUIRED (test code = MDIFF) NO [id number] 20:17:00* Test Item Value Reference Range Interpretation Comments GLUBED (test code = GLUBED) 201 MG/DL 70-110 H Performed by certified vacuum furnace operator at [facility] [id number] 17:11:00* Test Item Value Reference Range Interpretation Comments GLUBED (test code = GLUBED) 329 MG/DL 70-110 H Performed by certified vacuum furnace operator at [facility] [id number] 11:54:00* Test Item Value Reference Range Interpretation Comments GLUBED (test code = GLUBED) 199 MG/DL 70-110 H Performed by certified vacuum furnace operator at [facility] [id number] 07:56:00* Test Item Value Reference Range Interpretation Comments GLUBED (test code = GLUBED) 169 MG/DL 70-110 H Performed by certified vacuum furnace operator at [facility] BASIC METABOLIC [id number] 04:30:00* Test Item Value Reference Range Interpretation [...] CA) 8.2 mg/dL 8.0-10.5 N HEPATIC FUNCTION [id number] 04:30:00* Test Item Value Reference Range Interpretation [...] ALKP) 82 IUnit/L 20-125 N CBC W/AUTO [id number] 04:05:00* Test Item Value Reference Range Interpretation [...] DIFF REQUIRED (test code = MDIFF) NO [id number] 20:42:00* Test Item Value Reference Range Interpretation Comments GLUBED (test code = GLUBED) 225 MG/DL 70-110 H Performed by certified vacuum furnace operator at [facility] [id number] 16:57:00* Test Item Value Reference Range Interpretation Comments GLUBED (test code = GLUBED) 247 MG/DL 70-110 H Performed by certified vacuum furnace operator at [facility] ANTINUCLEAR ANTIBODIES [id number] 16:08:00* Test Item Value Reference Range Interpretation Comments COLE SCREEN (test code = ANASCR) Positive () A Negative <1:80 Borderline 1:80 Positive >1:80 ACUTE HEPATITIS [id number] 16:08:00* Test Item Value Reference Range Interpretation Comments AB HEPATITIS A IGM (test code = HAVMAB) NON REACTIVE INDEX NON REAC T. AG HEPATITIS B SURFACE (test code = HBSAG) NON REACTIVE INDEX NonRe active AB HEPATITIS B CORE IGM (test code = HBCMAB) NON REACTIVE INDEX NON REACT. AB HEPATITIS C (test code = HCVAB) NON REACTIVE INDEX NON REACT. ANTINUCLEAR ANTIBODIES [id number] 16:08:00* Test Item Value Reference Range Interpretation [...] titers Nucleosomes, Histones Drug-induced SLE Speckled Sm, EQUIPMENT MAINTENANCE TECH, SCL-70, SLE,MCTD,PSS (diffuse form), SS-A/SS-B Sjogrens Nucleolar SCL-70, PM-1/SCL High titers Scleroderma, PM/DM Centromere Centromere PSS (limited form) w/Crest syndrome variable Nuclear Dot Sp100,p67-ynndqc Primary Biliary Cirrhosis Nuclear GP210, Primary Biliary CirrhosisMembrane mana A,B,C Performed At: [facility] [address] [place], [place] [id number] Cortes Germain MD Ph:[phone] reported result: Edited by: SUSAN on 08/24/18:29382408/24/18 1608: COLE COMMENT previously reported as: ACUTE HEPATITIS [id number] 16:08:00* Test Item Value Reference Range Interpretation Comments AB HEPATITIS A IGM (test code = HAVMAB) NON REACTIVE INDEX NON REAC T. AG HEPATITIS B SURFACE (test code = HBSAG) NON REACTIVE INDEX NonRe active AB HEPATITIS B CORE IGM (test code = HBCMAB) NON REACTIVE INDEX NON REACT. AB HEPATITIS C (test code = HCVAB) NON REACTIVE INDEX NON REACT. [id number] 12:08:00* Test Item Value Reference Range Interpretation Comments GLUBED (test code = GLUBED) 304 MG/DL 70-110 H Performed by certified vacuum furnace operator at [facility] [id number] 08:37:00* Test Item Value Reference Range Interpretation Comments GLUBED (test code = GLUBED) 147 MG/DL 70-110 H Performed by certified vacuum furnace operator at [facility] BASIC METABOLIC [id number] 05:38:00* Test Item Value Reference Range Interpretation [...] CA) 7.8 mg/dL 8.0-10.5 L HEPATIC FUNCTION [id number] 05:38:00* Test Item Value Reference Range Interpretation [...] = ALKP) 86 IUnit/L 20-125 N PROTHROMBIN [id number] 05:26:00* Test Item Value Reference Range Interpretation [...] Infarction (to prevent recurrent infarct). THROMBOPLASTIN TIME [id number] 05:26:00* Test Item Value Reference Range Interpretation Comments THROMBOPLASTIN TIME PARTIAL (test code = PTT) 25.8 Seconds 25.0-39. 5 N Therapeutic Range: 61.8-83.8 Sec Effective 08/27/2013 CBC W/AUTO [id number] 05:09:00* Test Item Value Reference Range Interpretation [...] DIFF REQUIRED (test code = MDIFF) NO [id number] 19:53:00* Test Item Value Reference Range Interpretation Comments GLUBED (test code = GLUBED) 324 MG/DL 70-110 H Performed by certified vacuum furnace operator at [facility] [id number] 16:34:00* Test Item Value Reference Range Interpretation Comments GLUBED (test code = GLUBED) 233 MG/DL 70-110 H Performed by certified vacuum furnace operator at [facility] [id number] 13:28:00* Test Item Value Reference Range Interpretation Comments GLUBED (test code = GLUBED) 222 MG/DL 70-110 H Performed by certified vacuum furnace operator at [facility] [id number] 08:23:00* Test Item Value Reference Range Interpretation Comments GLUBED (test code = GLUBED) 152 MG/DL 70-110 H Performed by certified vacuum furnace operator at [facility] BASIC METABOLIC [id number] 07:39:00* Test Item Value Reference Range Interpretation [...] CA) 7.9 mg/dL 8.0-10.5 L HEPATIC FUNCTION [id number] 07:39:00* Test Item Value Reference Range Interpretation [...] code = ALKP) 102 IUnit/L 20-125 N [id number] 07:39:00* Test Item Value Reference Range Interpretation Comments MAGNESIUM (test code = MAG) 2.30 mg/dL 1.8-2.4 N CBC W/AUTO [id number] 07:39:00* Test Item Value Reference Range Interpretation [...] DIFF REQUIRED (test code = MDIFF) NO [id number] 22:47:00* Test Item Value Reference Range Interpretation Comments GLUBED (test code = GLUBED) 225 MG/DL 70-110 H Performed by certified vacuum furnace operator at [facility] - CT CHEST W/O [id number] 18:42:00 Name: TORI GREGORY [facility] : 1945 Age/S: 72 / M [address] [place] [address] Blvd Unit #: [id number] Loc: [place] [address] Phys: Mary Jo Evans HYDROGENATION OPERATOR Acct: [id number] Dis Date: Status: ADM IN PHONE #: [phone] Exam Date: 08/22/2018 1758 FAX #: [phone] Reason: EVAL FOR DEGREE OF EVAL. OF PLEURAL EFFUSION EXAMS: CPT CODE: [id number] CT CHEST W/O CONTRAST 42106 PROCEDURE: CT CHEST WITHOUT CONTRAST INDICATION: 72 [...] PAGE 1 Signed Report (CONTINUED) Name: RAZA SKIP HENDERSONLALOAbel [facility] : 1945 Age/S: 72 / M [address] [place] [address] Blvd Unit #: [id number] L oc: [place] [address] Phys: Mary Jo Evans HYDROGENATION OPERATOR Acct: [id number] Dis Date: Status: ADM IN PHONE #: [phone] Exam Date: 08/22/2018 1758 FAX #: [phone] Rosalva son: EVAL FOR DEGREE OF EVAL. OF PLEURAL EFFUSION EXAMS: CPT CODE: [id number] CT CHEST W/O CONTRAST 03838 <Continued> at 1842 Reported and signed by: Ben Adhikari M.D. CC: Mary Jo Evans HYDROGENATION OPERATOR; Shalom Guillermo MD Technologist:Marito Gordon, RT(R)(CT) CTDI: DLP: Trnscb Date/Time: 08/22/2018 (1841) KortneyJH8 Orig Print D/T: S: 08/22/2018 (1844) CTDI: DLP: PAGE 2 Signed Report [id number] 17:09:00* Test Item Value Reference Range Interpretation Comments GLUBED (test code = GLUBED) 236 MG/DL 70-110 H Performed by certified vacuum furnace operator at [facility] [id number] 11:44:00* Test Item Value Reference Range Interpretation Comments GLUBED (test code = GLUBED) 238 MG/DL 70-110 H Performed by certified vacuum furnace operator at [facility] [id number] 11:35:00* Test Item Value Reference Range Interpretation Comments GLUBED (test code = GLUBED) 186 MG/DL 70-110 H Performed by certified vacuum furnace operator at [facility] - US ABDOMEN [id number] 09:19:00 Name: TORI GREGORY [facility] : 1945 Age/S: 72 / M [address] [place] [address] Unit #: [id number] Loc: [place] [address] Phys: Sundar Ji Acct: [id number] Dis Date: Status: ADM IN PHONE #: [phone] Exam Date: 08/22/2018 0846 FAX #: [phone] Reason: elevated LFTs EXAMS: CPT CODE: [id number] US ABDOMEN LTD 84424 PROCEDURE: ABDOMINAL ULTRASOUND INDICATION: 72-year-old male with [...] bowel gas. 4. Right pleural effusion. SL: [id number] at 0919 Reported and signed by : Nallely Sunshine M.D. PAGE 1 Signed Report (CONTINUED) Name: TRIPLETTMily REDDLaryELVIABASIL [facility] : 1945 Age/S: 72 / M [address] [place] [address] Blvd Unit #: [id number] Loc: [place] [address] Phys: Sundar Ji Acc t: [id number] Dis Date: Status: ADM IN PHONE #: [phone] Exam Date: 08/22/2018 0846 FAX #: [phone] Reason: elevated LFTs EXAMS: CPT CODE: [id number] ABDOMEN LTD 34407 <Continued> CC: Sundar Ji; Shalom Guillermo MD Technologist: Velia Maza RDMS(A)(OB) Trnscb Date/Time: 08/22/2018 (918) t.SDR.RH17 Or ig Print D/T: S: 08/22/2018 (921) Probe: PAGE 2 Signed Report HEPATIC FUNCTION [id number] 08:53:00* Test Item Value Reference Range Interpretation [...] IUnit/L 20-125 N - XR CHEST 1 [id number] 07:31:00 FAX: Shalom Lisa I [phone] Smith: St: ADM FAX: Candie Reinoso (C Name: TORI GREGORY [facility] : 1945 Age/S: 72/M [address] [place] [address] Unit #: [id number] Loc: [address] [place] [address] Phys: Candie Reinoso NP (Christy) Acct: [id number] Dis Date: Status: ADM IN PHONE #: [phone] Exam Date: 08/22/2018 0553 FAX #: [phone] Reason: Cardiac Surgery Post Op EXAMS: CPT CODE: [id number] XR CHEST 1 V 84762 - XR CHEST 1 V 08/22/2018 5:00 [...] Kuhn, RT(R); Maine Dash RT(R) Trnscrd Date/Time/By: 9 (07) : By: KortneyJY5 Orig Print D/T: S: 08/22/2018 (2497) PAGE 1 Signed Report CBC W/AUTO [id number] 05:16:00* Test Item Value Reference Range Interpretation [...] NO COMMENTS: Daily while on HeparinCOMPREHENSIVE METABOLIC [id number] 05:16:00 * Test Item Value Reference Range [...] code = ALKP) 111 IUnit/L 20-125 N [id number] 05:16:00* Test Item Value Reference Range Interpretation Comments MAGNESIUM (test code = MAG) 2.40 mg/dL 1.8-2.4 N [id number] 21:08:00* Test Item Value Reference Range Interpretation Comments GLUBED (test code = GLUBED) 200 MG/DL 70-110 H Performed by certified vacuum furnace operator at [facility] [id number] 18:41:00* Test Item Value Reference Range Interpretation Comments GLUBED (test code = GLUBED) 269 MG/DL 70-110 H Performed by certified vacuum furnace operator at [facility] ANTINUCLEAR ANTIBODIES [id number] 15:18:00* Test Item Value Reference Range Interpretation Comments COLE SCREEN (test code = ANASCR) ACUTE HEPATITIS [id number] 15:18:00* Test Item Value Reference Range Interpretation Comments AB HEPATITIS A IGM (test code = HAVMAB) NON REACTIVE INDEX NON REAC T. AG HEPATITIS B SURFACE (test code = HBSAG) NON REACTIVE INDEX NonRe active AB HEPATITIS B CORE IGM (test code = HBCMAB) NON REACTIVE INDEX NON REACT. AB HEPATITIS C (test code = HCVAB) NON REACTIVE INDEX NON REACT. ANTINUCLEAR ANTIBODIES [id number] 15:16:00* Test Item Value Reference Range Interpretation Comments COLE SCREEN (test code = ANASCR) ACUTE HEPATITIS [id number] 15:16:00* Test Item Value Reference Range Interpretation Comments AB HEPATITIS A IGM (test code = HAVMAB) INDEX NON REACT. AG HEPATITIS B SURFACE (test code = HBSAG) NON REACTIVE INDEX NonRe active AB HEPATITIS B CORE IGM (test code = HBCMAB) NON REACTIVE INDEX NON REACT. AB HEPATITIS C (test code = HCVAB) NON REACTIVE INDEX NON REACT. ANTINUCLEAR ANTIBODIES [id number] 15:15:00* Test Item Value Reference Range Interpretation Comments COLE SCREEN (test code = ANASCR) ACUTE HEPATITIS [id number] 15:15:00* Test Item Value Reference Range Interpretation Comments AB HEPATITIS A IGM (test code = HAVMAB) INDEX NON REACT. AG HEPATITIS B SURFACE (test code = HBSAG) NON REACTIVE INDEX NonRe active AB HEPATITIS B CORE IGM (test code = HBCMAB) INDEX NON REACT . AB HEPATITIS C (test code = HCVAB) NON REACTIVE INDEX NON REACT. ANTINUCLEAR ANTIBODIES [id number] 14:54:00* Test Item Value Reference Range Interpretation Comments COLE SCREEN (test code = ANASCR) ACUTE HEPATITIS [id number] 14:54:00* Test Item Value Reference Range Interpretation Comments AB HEPATITIS A IGM (test code = HAVMAB) INDEX NON REACT. AG HEPATITIS B SURFACE (test code = HBSAG) NON REACTIVE INDEX NonRe active AB HEPATITIS B CORE IGM (test code = HBCMAB) INDEX NON REACT . AB HEPATITIS C (test code = HCVAB) INDEX NON REACT. [id number] 14:24:00* Test Item Value Reference Range Interpretation Comments ACETAMINOPHEN (test code = ACET) < 2 ug/mL 10-30 L - CT ABD PELVIS W/O [id number] 13:28:00 Name: TORI GREGORY [facility] : 1945 Age/S: 72 / M [address] [place] [address] Blvd Unit #: [id number] Loc: [place] [address] Phys: Mary Jo Evans HYDROGENATION OPERATOR Acct: [id number] Dis Date: Status: ADM IN PHONE #: [phone] Exam Date: 08/21/2018 1235 FAX #: [phone] Reason: elevated lft and abd pain EXAMS: CPT CODE: [id number] CT ABD PELVIS W/O CONT 85819 EXAM: CT ABDOMEN/PELVIS WITHOUT CONTRAST HISTORY: 72 [...] pancreas, and adrenal glands are normal in non -enhanced appearance. No renal/ureteral calculus, hydronephr osis, or mass is apparent. Mild nonspecific bilateral perinephric strandi ng. BOWEL: The small bowel and colon are normal in caliber without wall thickening. A normal appendix is identified. A few scattered coloni c diverticula are noted without evidence of acute diverticulitis. PERITONEUM: Trace free fluid in the left paracolic gutter and right lower quadrant. Small fat-containing left inguinal hernia. Surgical clip s in the left lower quadrant suggestive of prior hernia repair. PAGE 1 Signed Report (CONTINUED) Name: UZIEL GOODELVIABASIL [facility] : 1945 Age/ S: 72 / M [address] [place] [address] Blvd Unit #: [id number] Loc: [place] [address] Phys: Mary Jo Evans NP Acct: [id number] Dis Date: Status: ADM IN PHONE #: [phone] E xam Date: 08/21/2018 1235 FAX #: [phone] Reason: elevated lft and abd pain EXAMS: CPT CODE: [id number] CT ABD PELVIS W/O CONT 11191 <Continued> RETROPERITONEUM: The aorta is normal in [...] fat-containing left inguinal hernia. 5. Prostatomegaly. SL: [id number] at 1328 Reported and signed by: Nallely Sunshine M.D. CC: Mary Jo Evans HYDROGENATION OPERATOR; Shalom Guillermo MD Technologist:Omeor Weir, RT(R) CTDI: DLP: Trnscb Date/Time: 08/21/2018 (9022) t.BARBIR.RH17 Orig Print D/T: S: 08/21/2018 (5474) CTDI: DLP: PAGE 2 Signed Report HEPATIC FUNCTION [id number] 10:44:00* Test Item Value Reference Range Interpretation [...] code = ALKP) 131 IUnit/L 20-125 H [id number] 09:10:00* Test Item Value Reference Range Interpretation Comments GLUBED (test code = GLUBED) 228 MG/DL 70-110 H Performed by certified vacuum furnace operator at [facility] - XR CHEST 1 [id number] 07:37:00 FAX: Shalom Lisa I [phone] Smith: St: [facility] FAX: Candie Reinosoh (C Name: TORI GREGORY [facility] : 1945 Age/S: 72/M [address] [place] [address] Blvd Unit #: [id number] Loc: G[address] [place] [address] Phys: Candie Reinoso NP (Christy) Acct: [id number] Dis Date: Status: ADM IN PHONE #: [phone] Exam Date: 08/21/2018544 FAX #: [phone] Reason: Cardiac Surgery Post Op EXAMS: CPT CODE: [id number] XR CHEST 1 V 02237 - XR CHEST 1 V 08/21/2018 5:00 AM Ordering Physician: Candie Reinoso NP (Christy) CLINICAL HISTORY: Cardiac surgery postop; TECHNIQUE: A single AP view of the chest was obtained. COMPARISON: August 20, 2018. FINDINGS: Bilateral moderate layering pleural effusions seen with bibasilar hazy densities. The upper lungs are clear. Previous left-sided chest tube is not de finitively seen. No radiographically detectable pneumothorax is present. Cardiomegaly is noted. Median sternotomy wires are present. No acute osseous abnormality is evident. IMPRESSION: 1. Previous left-sided chest tube not definitively seen, may be outside the iksyj-aw-ppbs or removed. 2. Bilateral moderate layering pleural effusions with bibasilar hazy densities. 3. Ca rdiomegaly. SL: CY-H * * at 0737 Reported and signed by: Ben Mendoza M.D. CC: Shalom Guillermo MD; Marcell Reinoso NP (Christy) Technologist: Milton Kuhn, RT(R); Dilcia chua RT(R) Trnscrd Date/Time/By: 08/21/2018 (0737) : By: KortneyJY5 Orig Print D/T: S: 08/21/2018 (0741) PAGE 1 Signed Report BASIC METABOLIC [id number] 04:39:00* Test Item Value Reference Range Interpretation [...] code = CA) 7.4 mg/dL 8.0-10.5 L [id number] 04:39:00* Test Item Value Reference Range Interpretation Comments MAGNESIUM (test code = MAG) 2.70 mg/dL 1.8-2.4 H CBC W/AUTO [id number] 04:19:00* Test Item Value Reference Range Interpretation [...] MDIFF) NO COMMENTS: Daily while on HeparinURINALYSIS [id number] 01:22:00* Test Item Value Reference Range Interpretation [...] MUCU) 1+ /LPF NONE SEEN UA CULT [id number] 01:22:00* Test Item Value Reference Range Interpretation Comments UA CULTURE NEEDED? (test code = UACULT) NO, WBC<10 Criteria Culture Chk Criteria not met, Urine Culture cancelled. COMPREHENSIVE METABOLIC [id number] 00:42:00* Test Item Value Reference Range Interpretation [...] ALKP) 133 IUnit/L 20-125 H ARTERIAL BLOOD [id number] 00:19:00* Test Item Value Reference Range Interpretation [...] = HOLLAND) Room Air Performed by certified vacuum furnace operator at [facility] ABG TEMPERATURE (test code = TEMPA) 98.6 F ABG SITE (test code = SITEA) R Rad TCO2 ARTERIAL (test code = TCO2A) 22 CBC W/AUTO [id number] 00:14:00* Test Item Value Reference Range Interpretation [...] DIFF REQUIRED (test code = MDIFF) NO [id number] 20:51:00* Test Item Value Reference Range Interpretation Comments GLUBED (test code = GLUBED) 279 MG/DL 70-110 H Performed by certified vacuum furnace operator at [facility] [id number] 17:42:00* Test Item Value Reference Range Interpretation Comments MAGNESIUM (test code = MAG) 2.50 mg/dL 1.8-2.4 H [id number] 17:26:00* Test Item Value Reference Range Interpretation Comments GLUBED (test code = GLUBED) 199 MG/DL 70-110 H Performed by certified vacuum furnace operator at [facility] - XR ABDOMEN 1V (KUB)2018-08-20 14:10:00 FAX: Shalom Lisa I [phone] Smith: St: ADM FAX: Courtney Laws MD [phone] Name: TORI GREGORY [facility] : 1945 Age/S: 72/M [address] [place] [address] Unit #: [id number] Loc: G.[address] [facility] [place] [address] Phys: Courtney Correa MD Acct: [id number] Dis Date: Status: ADM IN PHONE #: [phone] Exam Date: 08/20/2018 1323 FAX #: [phone] Reason: constipation, abd blo ating EXAMS: CPT CODE: [id number] XR ABDOMEN 1V ([facility]) [address] ONE VIEW ABDOMEN: HISTORY: Constipation with abdo [...] Misti(R) Trnscrd Date/Time/By: 08/20/2018 (1410) : By: Sury.KVH/hcaIT.KVH O rig Print D/T: S: 08/20/2018 (8961) PAGE 1 Signed Report [id number] 12:14:00 * Test Item Value Reference Range Interpretation Comments GLUBED (test code = GLUBED) 275 MG/DL 70-110 H Performed by certified vacuum furnace operator at [facility] ISTAT BLOOD [id number] 11:44:00* Test Item Value Reference Range Interpretation [...] code = SITEA) Art line BLOOD GAS W/[id number] 11:44:00* Test Item Value Reference Range Interpretation [...] = PSABG) 10 cmH2O Performed by certified vacuum furnace operator at [facility] ABG TEMPERATURE (test code = TEMPA) 98.0 F ABG SITE (test code = SITEA) Art line IONIZED CALCIUM (test code = CAIABG) 1.14 mmoL/L 1.15-1.35 L SODIUM BEDSIDE (test code = NAB) 144 MEQ/L 134-147 N POTASSIUM BEDSIDE (test code = KBD) 4.0 MEQ/L 4.5-7.0 L [id number] 08:33:00* Test Item Value Reference Range Interpretation Comments GLUBED (test code = GLUBED) 186 MG/DL 70-110 H Performed by certified vacuum furnace operator at [facility] BASIC METABOLIC [id number] 08:18:00* Test Item Value Reference Range Interpretation [...] code = CA) 8.3 mg/dL 8.0-10.5 N [id number] 08:18:00* Test Item Value Reference Range Interpretation Comments MAGNESIUM (test code = MAG) 2.80 mg/dL 1.8-2.4 H CBC W/AUTO [id number] 07:47:00* Test Item Value Reference Range Interpretation [...] Daily while on Heparin- XR CHEST 1 [id number] 07:18:00 FAX: Shalom Lisa I [phone] Smith: St: ADM FAX: Candie Reinosoh (C Name: TORI GREGORY [facility] : 1945 Age/S: 72/M [address] [place] [address] Blvd Unit #: [id number] Loc: [address] [place] [address] Phys: Candie Reinoso NP (Christy) Acct: [id number] Dis Date: Status: ADM IN PHONE #: [phone] Exam Date: 08/20/2018 0600 FAX #: [phone] Reason: Cardiac Surgery Post Op EXAMS: CPT CODE: [id number] XR CHEST 1 V 56521 - XR CHEST 1 V 08/20/2018 5:00 AM Ordering Physician: Ousmane Reinoso NP (Christy) CLINICAL HISTORY: Cardiac surgery post op; TECHNIQUE: A single AP view of the chest was obtained. COMPARISON: August 19, 2017. FINDINGS: Lef t-sided chest tube is in place. Bilateral mild [...] RT(R); Maine Dash RT(R) Trnscrd Date/Time/By: 08/20/2018 (0718) : By: KortneyJY5 Orig Print D/T: S: 08/20/2018 (0722) PAGE 1 Signed Report [id number] 21:21:00* Test Item Value Reference Range Interpretation Comments GLUBED (test code = GLUBED) 215 MG/DL 70-110 H Performed by certified vacuum furnace operator at [facility] [id number] 18:04:00* Test Item Value Reference Range Interpretation Comments GLUBED (test code = GLUBED) 223 MG/DL 70-110 H Performed by certified vacuum furnace operator at [facility] ISTAT BLOOD [id number] 14:34:00* Test Item Value Reference Range Interpretation [...] ACID (test code = POCLAC) mmol/L 0.9-1.7 [id number] 11:40:00* Test Item Value Reference Range Interpretation Comments GLUBED (test code = GLUBED) 229 MG/DL 70-110 H Performed by certified vacuum furnace operator at [facility] [id number] 08:41:00* Test Item Value Reference Range Interpretation Comments GLUBED (test code = GLUBED) 167 MG/DL 70-110 H Performed by certified vacuum furnace operator at [facility] CBC W/AUTO [id number] 08:03:00* Test Item Value Reference Range Interpretation [...] MDIFF) NO COMMENTS: Daily while on HeparinPLT [id number] 08:03:00* Test Item Value Reference Range Interpretation Comments PLATELET ESTIMATE (test code = PLTEST) 84-105 THOUSAND ADEQUATE PLATELET MORPHOLOGY (test code = PLTMORPH) LARGE PLATELETS COMMENTS: Daily while on HeparinBASIC METABOLIC [id number] 07:53:00* Test Item Value Reference Range Interpretation [...] code = CA) 7.8 mg/dL 8.0-10.5 L [id number] 07:53:00* Test Item Value Reference Range Interpretation Comments MAGNESIUM (test code = MAG) 3.20 mg/dL 1.8-2.4 H CBC W/AUTO [id number] 07:35:00* Test Item Value Reference Range Interpretation [...] MDIFF) NO COMMENTS: Daily while on HeparinPLT [id number] 07:35:00* Test Item Value Reference Range Interpretation Comments PLATELET ESTIMATE (test code = PLTEST) THOUSAND ADEQUATE COMMENTS: Daily while on HeparinCBC W/AUTO [id number] 07:35:00* Test Item Value Reference Range Interpretation [...] MDIFF) NO COMMENTS: Daily while on HeparinPLT [id number] 07:35:00* Test Item Value Reference Range Interpretation Comments PLATELET ESTIMATE (test code = PLTEST) THOUSAND ADEQUATE COMMENTS: Daily while on Heparin- XR CHEST 1 [id number] 07:20:00 FAX: Shalom Lisa I [phone] Smith: St: ADM FAX: Candie Reinoso (C Name: TORI GREGORY [facility] : 1945 Age/S: 72/M [address] [place] [address] Unit #: [id number] Loc: G.3362 [place] [address] Phys: Candie Reinoso NP (Christy) Acct: [id number] Dis Date: Status: ADM IN PHONE #: [phone] Exam Date: 08/19/2018 0547 FAX #: [phone] Reason: Cardiac Surgery Post Op EXAMS: CPT CODE: [id number] XR CHEST 1 V 31041 - XR CHEST 1 V 08/19/2018 5:00 AM Ordering Physician: Ousmane Reinoso NP (Christy) CLINICAL HISTORY: Cardiac surgery post op; TECHNIQUE: A single AP view of the chest was obtained. COMPARISON: August 18, 2018. FINDINGS: Lef t-sided chest remains in place. Bilateral mild pleural [...] Candie Reinoso NP (Christy) Techn ologist: Milton Kuhn RT(R); Maine Dash RT(R) Trnhird Date/Jason e/By: 08/19/2018 (28) : By: KortneyJY5 Orig Print D/T: S: 08/19/2018 (4057) PAGE 1 Signed Report COAGULATION TIME [id number] 06:46:00* Test Item Value Reference Range Interpretation Comments COAGULATION TIME ACTIVATED (test code = ACT) 122 SECONDS 105-167 N COAGULATION TIME [id number] 06:46:00* Test Item Value Reference Range Interpretation Comments COAGULATION TIME ACTIVATED (test code = ACT) 564 SECONDS 105-167 H COAGULATION TIME [id number] 06:46:00* Test Item Value Reference Range Interpretation Comments COAGULATION TIME ACTIVATED (test code = ACT) 521 SECONDS 105-167 H COAGULATION TIME [id number] 06:46:00* Test Item Value Reference Range Interpretation Comments COAGULATION TIME ACTIVATED (test code = ACT) 499 SECONDS 105-167 H COAGULATION TIME [id number] 06:42:00* Test Item Value Reference Range Interpretation Comments COAGULATION TIME ACTIVATED (test code = ACT) 532 SECONDS 105-167 H COAGULATION TIME [id number] 06:42:00* Test Item Value Reference Range Interpretation Comments COAGULATION TIME ACTIVATED (test code = ACT) 109 SECONDS 105-167 N [id number] 21:28:00* Test Item Value Reference Range Interpretation Comments GLUBED (test code = GLUBED) 179 MG/DL 70-110 H Performed by certified vacuum furnace operator at [facility] BASIC METABOLIC [id number] 17:20:00* Test Item Value Reference Range Interpretation [...] code = CA) 7.8 mg/dL 8.0-10.5 L [id number] 17:20:00* Test Item Value Reference Range Interpretation Comments MAGNESIUM (test code = MAG) 3.00 mg/dL 1.8-2.4 H [id number] 17:19:00* Test Item Value Reference Range Interpretation Comments GLUBED (test code = GLUBED) 205 MG/DL 70-110 H Performed by certified vacuum furnace operator at [facility] [id number] 12:16:00* Test Item Value Reference Range Interpretation Comments GLUBED (test code = GLUBED) 210 MG/DL 70-110 H Performed by certified vacuum furnace operator at [facility] [id number] 10:22:00* Test Item Value Reference Range Interpretation Comments GLUBED (test code = GLUBED) 249 MG/DL 70-110 H Performed by certified vacuum furnace operator at [facility] - XR CHEST 1 [id number] 08:18:00 FAX: Shalom Lisa I [phone] Smith: St: [facility] FAX: Candie Reinoso (C Name: TORI GREGORY [facility] : 1945 Age/S: 72/M [address] [place] [address] Unit #: [id number] Loc: G3362 [place] [address] Phys: ArlethCandie Arana (Beckie) HYDROGENATION OPERATOR Acct: [id number] Dis Date: Status: ADM IN PHONE #: [phone] Exam Date: 08/18/2018 07 FAX #: [phone] Reason: Cardiac Surgery Post Op EXAMS: CPT CODE: [id number] XR CHEST 1 V 18377 CHEST, SINGLE VIEW HISTORY: Coronary artery disease, [...] Shalom Guillermo MD; Candie Reinoso NP (Christy) Technologis t: Maya Davidson, RT(R); Yady Aldrich RT(R) Trnscrd Date/Time/By: 08/18/2018 (817) : By: Shilpi Orig Print D/T: S: 08/18/2018 (820) PAGE 1 Signed Report BASIC METABOLIC [id number] 04:33:00* Test Item Value Reference Range Interpretation [...] code = CA) 7.9 mg/dL 8.0-10.5 L [id number] 04:33:00* Test Item Value Reference Range Interpretation Comments MAGNESIUM (test code = MAG) 2.90 mg/dL 1.8-2.4 H CBC W/AUTO [id number] 04:17:00* Test Item Value Reference Range Interpretation [...] = MDIFF) NO COMMENTS: Daily while on [id number] 21:13:00* Test Item Value Reference Range Interpretation Comments GLUBED (test code = GLUBED) 201 MG/DL 70-110 H Performed by certified vacuum furnace operator at [facility] [id number] 19:10:00* Test Item Value Reference Range Interpretation Comments GLUBED (test code = GLUBED) 224 MG/DL 70-110 H Performed by certified vacuum furnace operator at [facility] [id number] 12:14:00* Test Item Value Reference Range Interpretation Comments GLUBED (test code = GLUBED) 197 MG/DL 70-110 H Performed by certified vacuum furnace operator at [facility] - XR CHEST 1 [id number] 08:44:00 FAX: Shalom Lisa I [phone] Smith: St: [facility] FAX: Candie Reinosoh (C Name: TORI GREGORY [facility] : 1945 Age/S: 72/M [address] [place] [address] Unit #: [id number] Loc: G2208 [place] [address] Phys: ArlethCandie Arana (Beckie) HYDROGENATION OPERATOR Acct: [id number] Dis Date: Status: ADM IN PHONE #: [phone] Exam Date: 08/17/2018813 FAX #: [phone] Reason: Cardiac Surgery Post Op EXAMS: CPT CODE: [id number] XR CHEST 1 V 37684 CHEST, SINGLE VIEW HISTORY: Congestive heart failure, postop cardiac surgery Comparison made to 08/16/18. FINDINGS: Heart remains enlarged. Central pulmonary vascularity and interstitial lung markings remain prominent. Basilar atelectasis shows interval worsening. There has been interval extubation and r emoval of nasogastric tube. Right IJ venous sheath position is stable. L eft chest tube position is stable without significant pneumothorax. IMPRESSION: 1. Interval extubation and re moval of nasogastric tube. 2. Stable left chest tube, no pneumothorax. 3. Cardiomegaly with pulmonary vascular congestion and interstitial edema, stable. 4. Worsening of postoperative lung base atelectasis . SL:01 at 0844 Reported and signed by: William Perez M.D. CC: Shalom Guillermo MD; Candie Reinoso NP (Christy) Technologi st: Maya Davidson, RT(R); Yady Aldrich, RT(R) Trnscrd Date/Time/By: 08/17/2018 (0844) : By: Shilpi Orig Print D/T: S: 08/17/2018 (0847 ) PAGE 1 Signed Report [id number] 07:33:00* Test Item Value Reference Range Interpretation Comments GLUBED (test code = GLUBED) 114 MG/DL 70-110 H Performed by certified vacuum furnace operator at [facility] [id number] 07:03:00* Test Item Value Reference Range Interpretation Comments GLUBED (test code = GLUBED) 108 MG/DL 70-110 N Performed by certified vacuum furnace operator at [facility] [id number] 06:17:00* Test Item Value Reference Range Interpretation Comments GLUBED (test code = GLUBED) 157 MG/DL 70-110 H Performed by certified vacuum furnace operator at [facility] BLOOD GAS W/[id number] 05:51:00* Test Item Value Reference Range Interpretation [...] KBD) 4.6 MEQ/L 4.5-7.0 N ISTAT BLOOD [id number] 05:45:00* Test Item Value Reference Range Interpretation [...] 90-100 N ABG DELIVERY (test code = HOLALND) Cannula ABG TEMPERATURE (test code = TEMPA) 99.0 F ABG SITE (test code = SITEA) Art line POC LACTIC ACID (test code = POCLAC) 1.0 mmol/L 0.9-1.7 N BASIC METABOLIC [id number] 04:42:00* Test Item Value Reference Range Interpretation [...] mg/dL 8.0-10.5 L COMMENTS: POD #1HEPATIC FUNCTION [id number] 04:42:00* Test Item Value Reference Range Interpretation [...] ALKP) 33 IUnit/L 20-125 N COMMENTS: POD #[id number] 04:42:00* Test Item Value Reference Range Interpretation Comments MAGNESIUM (test code = MAG) 2.90 mg/dL 1.8-2.4 H COMMENTS: POD #1CBC W/AUTO [id number] 04:25:00* Test Item Value Reference Range Interpretation [...] = MDIFF) NO COMMENTS: Daily while on [id number] 02:33:00* Test Item Value Reference Range Interpretation Comments GLUBED (test code = GLUBED) 173 MG/DL 70-110 H Performed by certified vacuum furnace operator at [facility] [id number] 00:28:00* Test Item Value Reference Range Interpretation Comments GLUBED (test code = GLUBED) 199 MG/DL 70-110 H Performed by certified vacuum furnace operator at [facility] [id number] 00:25:00* Test Item Value Reference Range Interpretation Comments POTASSIUM (test code = K) 4.8 mEq/L 3.4-5.0 N HGB [id number] 00:21:00* Test Item Value Reference Range Interpretation Comments HEMOGLOBIN (test code = HGB) 6.8 g/dL 12.5-16.9 L HEMATOCRIT (test code = HCT) 21.9 % 37.5-50.7 L [id number] 22:46:00* Test Item Value Reference Range Interpretation Comments GLUBED (test code = GLUBED) 232 MG/DL 70-110 H Performed by certified vacuum furnace operator at [facility] [id number] 20:37:00* Test Item Value Reference Range Interpretation Comments GLUBED (test code = GLUBED) 229 MG/DL 70-110 H Performed by certified vacuum furnace operator at [facility] [id number] 19:39:00* Test Item Value Reference Range Interpretation Comments GLUBED (test code = GLUBED) 206 MG/DL 70-110 H Performed by certified vacuum furnace operator at [facility] [id number] 19:27:00* Test Item Value Reference Range Interpretation Comments GLUBED (test code = GLUBED) 168 MG/DL 70-110 H Performed by certified vacuum furnace operator at [facility] [id number] 19:27:00* Test Item Value Reference Range Interpretation Comments GLUBED (test code = GLUBED) 203 MG/DL 70-110 H Performed by certified vacuum furnace operator at [facility] [id number] 19:27:00* Test Item Value Reference Range Interpretation Comments GLUBED (test code = GLUBED) 229 MG/DL 70-110 H Performed by certified vacuum furnace operator at [facility] [id number] 19:27:00* Test Item Value Reference Range Interpretation Comments GLUBED (test code = GLUBED) 170 MG/DL 70-110 H Performed by certified vacuum furnace operator at [facility] [id number] 19:27:00* Test Item Value Reference Range Interpretation Comments GLUBED (test code = GLUBED) 154 MG/DL 70-110 H Performed by certified vacuum furnace operator at [facility] [id number] 19:27:00* Test Item Value Reference Range Interpretation Comments GLUBED (test code = GLUBED) 176 MG/DL 70-110 H Performed by certified vacuum furnace operator at [facility] [id number] 19:27:00* Test Item Value Reference Range Interpretation Comments GLUBED (test code = GLUBED) 148 MG/DL 70-110 H Performed by certified vacuum furnace operator at [facility] [id number] 18:46:00* Test Item Value Reference Range Interpretation Comments POTASSIUM (test code = K) 4.2 mEq/L 3.4-5.0 N HGB [id number] 18:42:00* Test Item Value Reference Range Interpretation Comments HEMOGLOBIN (test code = HGB) 7.3 g/dL 12.5-16.9 L HEMATOCRIT (test code = HCT) 23.2 % 37.5-50.7 L ISTAT BLOOD [id number] 18:39:00* Test Item Value Reference Range Interpretation [...] code = HOLLAND) Venti Performed by certified vacuum furnace operator at [facility] ABG TEMPERATURE (test code = TEMPA) 98.0 F ABG SITE (test code = SITEA) Art line PREDICTED AA GRADIENT (test code = AP) 64 PREDICTED PO2 (test code = OP) 183 a/A RATIO (test code = RATIO) 0.37 POC LACTIC ACID (test code = POCLAC) 6.0 mmol/L 0.9-1.7 HH A-A GRADIENT (test code = AAGRADE) 157 [id number] 16:30:00* Test Item Value Reference Range Interpretation Comments GLUBED (test code = GLUBED) 193 MG/DL 70-110 H Performed by certified vacuum furnace operator at [facility] BLOOD GAS W/[id number] 16:15:00* Test Item Value Reference Range Interpretation [...] = PSABG) 10 cmH2O Performed by certified vacuum furnace operator at [facility] ABG TEMPERATURE (test code = TEMPA) 98.0 F ABG SITE (test code = SITEA) Art line IONIZED CALCIUM (test code = CAIABG) 1.14 mmoL/L 1.15-1.35 L SODIUM BEDSIDE (test code = NAB) 144 MEQ/L 134-147 N POTASSIUM BEDSIDE (test code = KBD) 4.0 MEQ/L 4.5-7.0 L - XR CHEST 1 [id number] 14:29:00 FAX: Shalom Lisa I [phone] Smith: St: ADM FAX: Candie Reinosoh (C Name: TORI GREGORY [facility] : 1945 Age/S: 72/M [address] [place] [address] Bl Unit #: [id number] Loc: Nazario8 [place] [address] Phys: Candie Reinoso (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 PORTABLE EXAM 1:57 PM HISTORY: Postop cardiac surgery. COMPARISON: 08/08/2018 chest x-ray. Right IJ central line, ET tube and NG tube all in apparent good position. Stable cardiomegaly. Shallow inspiration which does accentuate pulmonary markings. No pneumothorax. No appreciable pleural fluid collections. IMPRESSION: Shallow inspiration. Support devices appear well-positioned. Otherwise normal exam. END OF IMPRESSION SL: [id number] at 1429 Reported and signed by: Dustin Marie M.D. CC: Shalom Guillermo MD; Candie Reinoso NP (Christy) Technologi st: RT Deuce(R) Trnscrd Date/Time/By: 08/16/2018 (1425) : By: Teodoro Orig Print D/T: S: 08/16/2018 (6612 ) PAGE 1 Signed Report ARTERIAL BLOOD [id number] 14:27:00* Test Item Value Reference Range Interpretation [...] = PEEPA) 5 cmH2O Performed by certified vacuum furnace operator at [facility] ABG TEMPERATURE (test code = TEMPA) 98.0 F ABG SITE (test code = SITEA) Art line PREDICTED AA GRADIENT (test code = AP) 62 PREDICTED PO2 (test code = OP) 178 a/A RATIO (test code = RATIO) 0.34 TCO2 ARTERIAL (test code = TCO2A) 24 A-A GRADIENT (test code = AAGRADE) 160 [id number] 14:12:00* Test Item Value Reference Range Interpretation Comments GLUBED (test code = GLUBED) 163 MG/DL 70-110 H Performed by certified vacuum furnace operator at [facility] BASIC METABOLIC [id number] 13:26:00* Test Item Value Reference Range Interpretation [...] CA) 7.1 mg/dL 8.0-10.5 L COMMENTS: On [id number] 13:26:00* Test Item Value Reference Range Interpretation Comments MAGNESIUM (test code = MAG) 3.90 mg/dL 1.8-2.4 H COMMENTS: On arrivalPROTHROMBIN [id number] 13:12:00* Test Item Value Reference Range Interpretation [...] prevent recurrent infarct). COMMENTS: On arrivalTHROMBOPLASTIN TIME [id number] 13:12:00* Test Item Value Reference Range Interpretation Comments THROMBOPLASTIN TIME PARTIAL (test code = PTT) 30.8 Seconds 25.0-39. 5 N Therapeutic Range: 61.8-83.8 Sec Effective 08/27/2013 COMMENTS: On arrivalISTAT BLOOD [id number] 13:04:00* Test Item Value Reference Range Interpretation [...] = PEEPA) 5 cmH2O Performed by certified vacuum furnace operator at [facility] ABG TEMPERATURE (test code = TEMPA) 98.0 F ABG SITE (test code = SITEA) Art line PREDICTED AA GRADIENT (test code = AP) 81 PREDICTED PO2 (test code = OP) 233 a/A RATIO (test code = RATIO) 0.35 POC LACTIC ACID (test code = POCLAC) 4.9 mmol/L 0.9-1.7 HH A-A GRADIENT (test code = AAGRADE) 205 CBC W/AUTO [id number] 13:02:00* Test Item Value Reference Range Interpretation [...] = MDIFF) NO COMMENTS: On arrivalBLOOD GAS W/[id number] 12:58:00* Test Item Value Reference Range Interpretation [...] = PEEPA) 5 cmH2O Performed by certified vacuum furnace operator at [facility] ABG TEMPERATURE (test code = TEMPA) 98.0 [...] code = KBD) 3.8 MEQ/L 4.5-7.0 L [id number] 12:53:00* Test Item Value Reference Range Interpretation Comments GLUBED (test code = GLUBED) 159 MG/DL 70-110 H Performed by certified vacuum furnace operator at [facility] PROTHROMBIN [id number] 12:38:00* Test Item Value Reference Range Interpretation [...] Infarction (to prevent recurrent infarct). THROMBOPLASTIN TIME [id number] 12:38:00* Test Item Value Reference Range Interpretation Comments THROMBOPLASTIN TIME PARTIAL (test code = PTT) 34.6 Seconds 25.0-39. 5 Therapeutic Range: 61.8-83.8 Sec Effective 08/27/2013 HGB [id number] 12:11:00* Test Item Value Reference Range Interpretation Comments HEMOGLOBIN (test code = HGB) 8.9 g/dL 12.5-16.9 L HEMATOCRIT (test code = HCT) 27.8 % 37.5-50.7 L PLATELET [id number] 12:11:00* Test Item Value Reference Range Interpretation Comments PLATELET COUNT (test code = PLT) 149 x10 3/uL 150-400 L POC ARTERIAL BLOOD [id number] 11:42:00* Test Item Value Reference Range Interpretation Comments POC ARTERIAL BLOOD GAS PH (test code = POCPHA) 7.348 7.35-7. 45 L POC ARTERIAL BLOOD GAS PCO2 (test code = HXPUFD9L) 34.2 mmHg 35. 0-45 L POC TCO2 ARTERIAL (test code = POCTCO2) 19.8 POC ARTERIAL BLOOD GAS PO2 (test code = JTFHA8I) 320.4 mmHg 80-10 0.0 HH POC HCO3 ARTERIAL (test code = CVUYFK2K) 18.8 MMOL/L 22.0-26.0 L POC BASE EXCESS (test code = POCBEA) -6.2 MMOL/L -4.0-4.0 L POC O2 SATURATION (test code = POCO2S) 99.9 % 90-100 N [id number] 11:42:00* Test Item Value Reference Range Interpretation Comments SODIUM (test code = NA/ABG) MEQ/L 134-147 [id number] 11:42:00* Test Item Value Reference Range Interpretation Comments POTASSIUM (test code = K/ABG) MEQ/L 3.4-5.0 [id number] 11:42:00* Test Item Value Reference Range Interpretation Comments CHLORIDE (test code = CL/ABG) MEQ/L 100-108 CREATININE [id number] 11:42:00* Test Item Value Reference Range Interpretation Comments CREATININE ABG (test code = CREAABG) mg/dL 0.8-1.3 [id number] 11:42:00* Test Item Value Reference Range Interpretation Comments HEMOGLOBIN (test code = HGB/ABG) G/DL 12.5-16.9 [id number] 11:42:00* Test Item Value Reference Range Interpretation Comments HEMATOCRIT (test code = HCT/ABG) % 37.5-50.7 POC IONIZED [id number] 11:42:00* Test Item Value Reference Range Interpretation Comments POC IONIZED CALCIUM (test code = POCCA) MMOL/L 1.12-1.32 POC [id number] 11:42:00* Test Item Value Reference Range Interpretation Comments POC GLUCOSE (test code = POCGLU) MG/DL 70-110 POC ARTERIAL BLOOD [id number] 11:42:00* Test Item Value Reference Range Interpretation Comments POC ARTERIAL BLOOD GAS PH (test code = POCPHA) 7.348 7.35-7. 45 L POC ARTERIAL BLOOD GAS PCO2 (test code = BEFGWB0F) 34.2 mmHg 35. 0-45 L POC TCO2 ARTERIAL (test code = POCTCO2) 19.8 POC ARTERIAL BLOOD GAS PO2 (test code = ZUKBZ0X) 320.4 mmHg 80-10 0.0 HH POC HCO3 ARTERIAL (test code = GQVDCZ6V) 18.8 MMOL/L 22.0-26.0 L POC BASE EXCESS (test code = POCBEA) -6.2 MMOL/L -4.0-4.0 L POC O2 SATURATION (test code = POCO2S) 99.9 % 90-100 N [id number] 11:42:00* Test Item Value Reference Range Interpretation Comments SODIUM (test code = NA/ABG) 141 MEQ/L 134-147 N [id number] 11:42:00* Test Item Value Reference Range Interpretation Comments POTASSIUM (test code = K/ABG) MEQ/L 3.4-5.0 [id number] 11:42:00* Test Item Value Reference Range Interpretation Comments CHLORIDE (test code = CL/ABG) MEQ/L 100-108 CREATININE [id number] 11:42:00* Test Item Value Reference Range Interpretation Comments CREATININE ABG (test code = CREAABG) mg/dL 0.8-1.3 [id number] 11:42:00* Test Item Value Reference Range Interpretation Comments HEMOGLOBIN (test code = HGB/ABG) G/DL 12.5-16.9 [id number] 11:42:00* Test Item Value Reference Range Interpretation Comments HEMATOCRIT (test code = HCT/ABG) % 37.5-50.7 POC IONIZED [id number] 11:42:00* Test Item Value Reference Range Interpretation Comments POC IONIZED CALCIUM (test code = POCCA) MMOL/L 1.12-1.32 POC [id number] 11:42:00* Test Item Value Reference Range Interpretation Comments POC GLUCOSE (test code = POCGLU) MG/DL 70-110 POC ARTERIAL BLOOD [id number] 11:42:00* Test Item Value Reference Range Interpretation Comments POC ARTERIAL BLOOD GAS PH (test code = POCPHA) 7.348 7.35-7. 45 L POC ARTERIAL BLOOD GAS PCO2 (test code = NVAPCR5N) 34.2 mmHg 35. 0-45 L POC TCO2 ARTERIAL (test code = POCTCO2) 19.8 POC ARTERIAL BLOOD GAS PO2 (test code = VSIVK0B) 320.4 mmHg 80-10 0.0 HH POC HCO3 ARTERIAL (test code = JNICXS8I) 18.8 MMOL/L 22.0-26.0 L POC BASE EXCESS (test code = POCBEA) -6.2 MMOL/L -4.0-4.0 L POC O2 SATURATION (test code = POCO2S) 99.9 % 90-100 N [id number] 11:42:00* Test Item Value Reference Range Interpretation Comments SODIUM (test code = NA/ABG) 141 MEQ/L 134-147 N [id number] 11:42:00* Test Item Value Reference Range Interpretation Comments POTASSIUM (test code = K/ABG) 3.7 MEQ/L 3.4-5.0 N [id number] 11:42:00* Test Item Value Reference Range Interpretation Comments CHLORIDE (test code = CL/ABG) MEQ/L 100-108 CREATININE [id number] 11:42:00* Test Item Value Reference Range Interpretation Comments CREATININE ABG (test code = CREAABG) mg/dL 0.8-1.3 [id number] 11:42:00* Test Item Value Reference Range Interpretation Comments HEMOGLOBIN (test code = HGB/ABG) G/DL 12.5-16.9 [id number] 11:42:00* Test Item Value Reference Range Interpretation Comments HEMATOCRIT (test code = HCT/ABG) % 37.5-50.7 POC IONIZED [id number] 11:42:00* Test Item Value Reference Range Interpretation Comments POC IONIZED CALCIUM (test code = POCCA) MMOL/L 1.12-1.32 POC [id number] 11:42:00* Test Item Value Reference Range Interpretation Comments POC GLUCOSE (test code = POCGLU) MG/DL 70-110 POC ARTERIAL BLOOD [id number] 11:42:00* Test Item Value Reference Range Interpretation Comments POC ARTERIAL BLOOD GAS PH (test code = POCPHA) 7.348 7.35-7. 45 L POC ARTERIAL BLOOD GAS PCO2 (test code = RZHONE3R) 34.2 mmHg 35. 0-45 L POC TCO2 ARTERIAL (test code = POCTCO2) 19.8 POC ARTERIAL BLOOD GAS PO2 (test code = SCUYO2C) 320.4 mmHg 80-10 0.0 HH POC HCO3 ARTERIAL (test code = VODDUP1F) 18.8 MMOL/L 22.0-26.0 L POC BASE EXCESS (test code = POCBEA) -6.2 MMOL/L -4.0-4.0 L POC O2 SATURATION (test code = POCO2S) 99.9 % 90-100 N [id number] 11:42:00* Test Item Value Reference Range Interpretation Comments SODIUM (test code = NA/ABG) 141 MEQ/L 134-147 N [id number] 11:42:00* Test Item Value Reference Range Interpretation Comments POTASSIUM (test code = K/ABG) 3.7 MEQ/L 3.4-5.0 N [id number] 11:42:00* Test Item Value Reference Range Interpretation Comments CHLORIDE (test code = CL/ABG) MEQ/L 100-108 CREATININE [id number] 11:42:00* Test Item Value Reference Range Interpretation Comments CREATININE ABG (test code = CREAABG) mg/dL 0.8-1.3 [id number] 11:42:00* Test Item Value Reference Range Interpretation Comments HEMOGLOBIN (test code = HGB/ABG) G/DL 12.5-16.9 [id number] 11:42:00* Test Item Value Reference Range Interpretation Comments HEMATOCRIT (test code = HCT/ABG) % 37.5-50.7 POC IONIZED [id number] 11:42:00* Test Item Value Reference Range Interpretation Comments POC IONIZED CALCIUM (test code = POCCA) 1.28 MMOL/L 1.12-1.32 N POC [id number] 11:42:00* Test Item Value Reference Range Interpretation Comments POC GLUCOSE (test code = POCGLU) MG/DL 70-110 POC ARTERIAL BLOOD [id number] 11:42:00* Test Item Value Reference Range Interpretation Comments POC ARTERIAL BLOOD GAS PH (test code = POCPHA) 7.348 7.35-7. 45 L POC ARTERIAL BLOOD GAS PCO2 (test code = ELAPUA4N) 34.2 mmHg 35. 0-45 L POC TCO2 ARTERIAL (test code = POCTCO2) 19.8 POC ARTERIAL BLOOD GAS PO2 (test code = SEFMM0W) 320.4 mmHg 80-10 0.0 HH POC HCO3 ARTERIAL (test code = SBEMYU6Z) 18.8 MMOL/L 22.0-26.0 L POC BASE EXCESS (test code = POCBEA) -6.2 MMOL/L -4.0-4.0 L POC O2 SATURATION (test code = POCO2S) 99.9 % 90-100 N [id number] 11:42:00* Test Item Value Reference Range Interpretation Comments SODIUM (test code = NA/ABG) 141 MEQ/L 134-147 N [id number] 11:42:00* Test Item Value Reference Range Interpretation Comments POTASSIUM (test code = K/ABG) 3.7 MEQ/L 3.4-5.0 N [id number] 11:42:00* Test Item Value Reference Range Interpretation Comments CHLORIDE (test code = CL/ABG) MEQ/L 100-108 CREATININE [id number] 11:42:00* Test Item Value Reference Range Interpretation Comments CREATININE ABG (test code = CREAABG) mg/dL 0.8-1.3 [id number] 11:42:00* Test Item Value Reference Range Interpretation Comments HEMOGLOBIN (test code = HGB/ABG) G/DL 12.5-16.9 [id number] 11:42:00* Test Item Value Reference Range Interpretation Comments HEMATOCRIT (test code = HCT/ABG) % 37.5-50.7 POC IONIZED [id number] 11:42:00* Test Item Value Reference Range Interpretation Comments POC IONIZED CALCIUM (test code = POCCA) 1.28 MMOL/L 1.12-1.32 N POC [id number] 11:42:00* Test Item Value Reference Range Interpretation Comments POC GLUCOSE (test code = POCGLU) 226 MG/DL 70-110 H POC ARTERIAL BLOOD [id number] 11:42:00* Test Item Value Reference Range Interpretation Comments POC ARTERIAL BLOOD GAS PH (test code = POCPHA) 7.348 7.35-7. 45 L POC ARTERIAL BLOOD GAS PCO2 (test code = BLPGTU9H) 34.2 mmHg 35. 0-45 L POC TCO2 ARTERIAL (test code = POCTCO2) 19.8 POC ARTERIAL BLOOD GAS PO2 (test code = DIQLZ5Z) 320.4 mmHg 80-10 0.0 HH POC HCO3 ARTERIAL (test code = YFYXEW5J) 18.8 MMOL/L 22.0-26.0 L POC BASE EXCESS (test code = POCBEA) -6.2 MMOL/L -4.0-4.0 L POC O2 SATURATION (test code = POCO2S) 99.9 % 90-100 N [id number] 11:42:00* Test Item Value Reference Range Interpretation Comments SODIUM (test code = NA/ABG) 141 MEQ/L 134-147 N [id number] 11:42:00* Test Item Value Reference Range Interpretation Comments POTASSIUM (test code = K/ABG) 3.7 MEQ/L 3.4-5.0 N [id number] 11:42:00* Test Item Value Reference Range Interpretation Comments CHLORIDE (test code = CL/ABG) MEQ/L 100-108 CREATININE [id number] 11:42:00* Test Item Value Reference Range Interpretation Comments CREATININE ABG (test code = CREAABG) mg/dL 0.8-1.3 [id number] 11:42:00* Test Item Value Reference Range Interpretation Comments HEMOGLOBIN (test code = HGB/ABG) G/DL 12.5-16.9 [id number] 11:42:00* Test Item Value Reference Range Interpretation Comments HEMATOCRIT (test code = HCT/ABG) 25 % 37.5-50.7 L POC IONIZED [id number] 11:42:00* Test Item Value Reference Range Interpretation Comments POC IONIZED CALCIUM (test code = POCCA) 1.28 MMOL/L 1.12-1.32 N POC [id number] 11:42:00* Test Item Value Reference Range Interpretation Comments POC GLUCOSE (test code = POCGLU) 226 MG/DL 70-110 H POC ARTERIAL BLOOD [id number] 11:42:00* Test Item Value Reference Range Interpretation Comments POC ARTERIAL BLOOD GAS PH (test code = POCPHA) 7.348 7.35-7. 45 L POC ARTERIAL BLOOD GAS PCO2 (test code = BMJYHX9E) 34.2 mmHg 35. 0-45 L POC TCO2 ARTERIAL (test code = POCTCO2) 19.8 POC ARTERIAL BLOOD GAS PO2 (test code = FUANX9U) 320.4 mmHg 80-10 0.0 HH POC HCO3 ARTERIAL (test code = VGTBQN0G) 18.8 MMOL/L 22.0-26.0 L POC BASE EXCESS (test code = POCBEA) -6.2 MMOL/L -4.0-4.0 L POC O2 SATURATION (test code = POCO2S) 99.9 % 90-100 N [id number] 11:42:00* Test Item Value Reference Range Interpretation Comments SODIUM (test code = NA/ABG) 141 MEQ/L 134-147 N [id number] 11:42:00* Test Item Value Reference Range Interpretation Comments POTASSIUM (test code = K/ABG) 3.7 MEQ/L 3.4-5.0 N [id number] 11:42:00* Test Item Value Reference Range Interpretation Comments CHLORIDE (test code = CL/ABG) MEQ/L 100-108 CREATININE [id number] 11:42:00* Test Item Value Reference Range Interpretation Comments CREATININE ABG (test code = CREAABG) mg/dL 0.8-1.3 [id number] 11:42:00* Test Item Value Reference Range Interpretation Comments HEMOGLOBIN (test code = HGB/ABG) 8.6 G/DL 12.5-16.9 L [id number] 11:42:00* Test Item Value Reference Range Interpretation Comments HEMATOCRIT (test code = HCT/ABG) 25 % 37.5-50.7 L POC IONIZED [id number] 11:42:00* Test Item Value Reference Range Interpretation Comments POC IONIZED CALCIUM (test code = POCCA) 1.28 MMOL/L 1.12-1.32 N POC [id number] 11:42:00* Test Item Value Reference Range Interpretation Comments POC GLUCOSE (test code = POCGLU) 226 MG/DL 70-110 H POC ARTERIAL BLOOD [id number] 11:42:00* Test Item Value Reference Range Interpretation Comments POC ARTERIAL BLOOD GAS PH (test code = POCPHA) 7.348 7.35-7. 45 L POC ARTERIAL BLOOD GAS PCO2 (test code = LYFJVO2L) 34.2 mmHg 35. 0-45 L POC TCO2 ARTERIAL (test code = POCTCO2) 19.8 POC ARTERIAL BLOOD GAS PO2 (test code = XHVCI2A) 320.4 mmHg 80-10 0.0 HH POC HCO3 ARTERIAL (test code = QYYPXI6A) 18.8 MMOL/L 22.0-26.0 L POC BASE EXCESS (test code = POCBEA) -6.2 MMOL/L -4.0-4.0 L POC O2 SATURATION (test code = POCO2S) 99.9 % 90-100 N [id number] 11:42:00* Test Item Value Reference Range Interpretation Comments SODIUM (test code = NA/ABG) 141 MEQ/L 134-147 N [id number] 11:42:00* Test Item Value Reference Range Interpretation Comments POTASSIUM (test code = K/ABG) 3.7 MEQ/L 3.4-5.0 N [id number] 11:42:00* Test Item Value Reference Range Interpretation Comments CHLORIDE (test code = CL/ABG) 109 MEQ/L 100-108 H CREATININE [id number] 11:42:00* Test Item Value Reference Range Interpretation Comments CREATININE ABG (test code = CREAABG) mg/dL 0.8-1.3 [id number] 11:42:00* Test Item Value Reference Range Interpretation Comments HEMOGLOBIN (test code = HGB/ABG) 8.6 G/DL 12.5-16.9 L [id number] 11:42:00* Test Item Value Reference Range Interpretation Comments HEMATOCRIT (test code = HCT/ABG) 25 % 37.5-50.7 L POC IONIZED [id number] 11:42:00* Test Item Value Reference Range Interpretation Comments POC IONIZED CALCIUM (test code = POCCA) 1.28 MMOL/L 1.12-1.32 N POC [id number] 11:42:00* Test Item Value Reference Range Interpretation Comments POC GLUCOSE (test code = POCGLU) 226 MG/DL 70-110 H POC ARTERIAL BLOOD [id number] 11:42:00* Test Item Value Reference Range Interpretation Comments POC ARTERIAL BLOOD GAS PH (test code = POCPHA) 7.348 7.35-7. 45 L POC ARTERIAL BLOOD GAS PCO2 (test code = LOFNYA5G) 34.2 mmHg 35. 0-45 L POC TCO2 ARTERIAL (test code = POCTCO2) 19.8 POC ARTERIAL BLOOD GAS PO2 (test code = JAVNM6G) 320.4 mmHg 80-10 0.0 HH POC HCO3 ARTERIAL (test code = IQBRNY9F) 18.8 MMOL/L 22.0-26.0 L POC BASE EXCESS (test code = POCBEA) -6.2 MMOL/L -4.0-4.0 L POC O2 SATURATION (test code = POCO2S) 99.9 % 90-100 N [id number] 11:42:00* Test Item Value Reference Range Interpretation Comments SODIUM (test code = NA/ABG) 141 MEQ/L 134-147 N [id number] 11:42:00* Test Item Value Reference Range Interpretation Comments POTASSIUM (test code = K/ABG) 3.7 MEQ/L 3.4-5.0 N [id number] 11:42:00* Test Item Value Reference Range Interpretation Comments CHLORIDE (test code = CL/ABG) 109 MEQ/L 100-108 H CREATININE [id number] 11:42:00* Test Item Value Reference Range Interpretation Comments CREATININE ABG (test code = CREAABG) 1.0 mg/dL 0.8-1.3 N [id number] 11:42:00* Test Item Value Reference Range Interpretation Comments HEMOGLOBIN (test code = HGB/ABG) 8.6 G/DL 12.5-16.9 L [id number] 11:42:00* Test Item Value Reference Range Interpretation Comments HEMATOCRIT (test code = HCT/ABG) 25 % 37.5-50.7 L POC IONIZED [id number] 11:42:00* Test Item Value Reference Range Interpretation Comments POC IONIZED CALCIUM (test code = POCCA) 1.28 MMOL/L 1.12-1.32 N POC [id number] 11:42:00* Test Item Value Reference Range Interpretation Comments POC GLUCOSE (test code = POCGLU) 226 MG/DL 70-110 H POC ARTERIAL BLOOD [id number] 11:02:00* Test Item Value Reference Range Interpretation Comments POC ARTERIAL BLOOD GAS PH (test code = POCPHA) 7.366 7.35-7. 45 N POC ARTERIAL BLOOD GAS PCO2 (test code = VGHBMF6B) 31.3 mmHg 35. 0-45 L POC TCO2 ARTERIAL (test code = POCTCO2) 18.9 POC ARTERIAL BLOOD GAS PO2 (test code = SSYFA3W) 226.3 mmHg 80-10 0.0 HH POC HCO3 ARTERIAL (test code = OHPQHZ8R) 18.0 MMOL/L 22.0-26.0 L POC BASE EXCESS (test code = POCBEA) -6.7 MMOL/L -4.0-4.0 L POC O2 SATURATION (test code = POCO2S) 99.8 % 90-100 N [id number] 11:02:00* Test Item Value Reference Range Interpretation Comments SODIUM (test code = NA/ABG) MEQ/L 134-147 [id number] 11:02:00* Test Item Value Reference Range Interpretation Comments POTASSIUM (test code = K/ABG) MEQ/L 3.4-5.0 [id number] 11:02:00* Test Item Value Reference Range Interpretation Comments CHLORIDE (test code = CL/ABG) MEQ/L 100-108 CREATININE [id number] 11:02:00* Test Item Value Reference Range Interpretation Comments CREATININE ABG (test code = CREAABG) mg/dL 0.8-1.3 [id number] 11:02:00* Test Item Value Reference Range Interpretation Comments HEMOGLOBIN (test code = HGB/ABG) G/DL 12.5-16.9 [id number] 11:02:00* Test Item Value Reference Range Interpretation Comments HEMATOCRIT (test code = HCT/ABG) % 37.5-50.7 POC IONIZED [id number] 11:02:00* Test Item Value Reference Range Interpretation Comments POC IONIZED CALCIUM (test code = POCCA) MMOL/L 1.12-1.32 POC [id number] 11:02:00* Test Item Value Reference Range Interpretation Comments POC GLUCOSE (test code = POCGLU) MG/DL 70-110 POC ARTERIAL BLOOD [id number] 11:02:00* Test Item Value Reference Range Interpretation Comments POC ARTERIAL BLOOD GAS PH (test code = POCPHA) 7.366 7.35-7. 45 N POC ARTERIAL BLOOD GAS PCO2 (test code = MDEYQF8T) 31.3 mmHg 35. 0-45 L POC TCO2 ARTERIAL (test code = POCTCO2) 18.9 POC ARTERIAL BLOOD GAS PO2 (test code = DPQRI3F) 226.3 mmHg 80-10 0.0 HH POC HCO3 ARTERIAL (test code = ROHHKQ9Q) 18.0 MMOL/L 22.0-26.0 L POC BASE EXCESS (test code = POCBEA) -6.7 MMOL/L -4.0-4.0 L POC O2 SATURATION (test code = POCO2S) 99.8 % 90-100 N [id number] 11:02:00* Test Item Value Reference Range Interpretation Comments SODIUM (test code = NA/ABG) 138 MEQ/L 134-147 N [id number] 11:02:00* Test Item Value Reference Range Interpretation Comments POTASSIUM (test code = K/ABG) MEQ/L 3.4-5.0 [id number] 11:02:00* Test Item Value Reference Range Interpretation Comments CHLORIDE (test code = CL/ABG) MEQ/L 100-108 CREATININE [id number] 11:02:00* Test Item Value Reference Range Interpretation Comments CREATININE ABG (test code = CREAABG) mg/dL 0.8-1.3 [id number] 11:02:00* Test Item Value Reference Range Interpretation Comments HEMOGLOBIN (test code = HGB/ABG) G/DL 12.5-16.9 [id number] 11:02:00* Test Item Value Reference Range Interpretation Comments HEMATOCRIT (test code = HCT/ABG) % 37.5-50.7 POC IONIZED [id number] 11:02:00* Test Item Value Reference Range Interpretation Comments POC IONIZED CALCIUM (test code = POCCA) MMOL/L 1.12-1.32 POC [id number] 11:02:00* Test Item Value Reference Range Interpretation Comments POC GLUCOSE (test code = POCGLU) MG/DL 70-110 POC ARTERIAL BLOOD [id number] 11:02:00* Test Item Value Reference Range Interpretation Comments POC ARTERIAL BLOOD GAS PH (test code = POCPHA) 7.366 7.35-7. 45 N POC ARTERIAL BLOOD GAS PCO2 (test code = SNSZPF1R) 31.3 mmHg 35. 0-45 L POC TCO2 ARTERIAL (test code = POCTCO2) 18.9 POC ARTERIAL BLOOD GAS PO2 (test code = BFASR1L) 226.3 mmHg 80-10 0.0 HH POC HCO3 ARTERIAL (test code = ENGBFF3Z) 18.0 MMOL/L 22.0-26.0 L POC BASE EXCESS (test code = POCBEA) -6.7 MMOL/L -4.0-4.0 L POC O2 SATURATION (test code = POCO2S) 99.8 % 90-100 N [id number] 11:02:00* Test Item Value Reference Range Interpretation Comments SODIUM (test code = NA/ABG) 138 MEQ/L 134-147 N [id number] 11:02:00* Test Item Value Reference Range Interpretation Comments POTASSIUM (test code = K/ABG) 4.5 MEQ/L 3.4-5.0 N [id number] 11:02:00* Test Item Value Reference Range Interpretation Comments CHLORIDE (test code = CL/ABG) MEQ/L 100-108 CREATININE [id number] 11:02:00* Test Item Value Reference Range Interpretation Comments CREATININE ABG (test code = CREAABG) mg/dL 0.8-1.3 [id number] 11:02:00* Test Item Value Reference Range Interpretation Comments HEMOGLOBIN (test code = HGB/ABG) G/DL 12.5-16.9 [id number] 11:02:00* Test Item Value Reference Range Interpretation Comments HEMATOCRIT (test code = HCT/ABG) % 37.5-50.7 POC IONIZED [id number] 11:02:00* Test Item Value Reference Range Interpretation Comments POC IONIZED CALCIUM (test code = POCCA) MMOL/L 1.12-1.32 POC [id number] 11:02:00* Test Item Value Reference Range Interpretation Comments POC GLUCOSE (test code = POCGLU) MG/DL 70-110 POC ARTERIAL BLOOD [id number] 11:02:00* Test Item Value Reference Range Interpretation Comments POC ARTERIAL BLOOD GAS PH (test code = POCPHA) 7.366 7.35-7. 45 N POC ARTERIAL BLOOD GAS PCO2 (test code = JGIBEU8M) 31.3 mmHg 35. 0-45 L POC TCO2 ARTERIAL (test code = POCTCO2) 18.9 POC ARTERIAL BLOOD GAS PO2 (test code = DXQNO6Z) 226.3 mmHg 80-10 0.0 HH POC HCO3 ARTERIAL (test code = ZDCXEY8T) 18.0 MMOL/L 22.0-26.0 L POC BASE EXCESS (test code = POCBEA) -6.7 MMOL/L -4.0-4.0 L POC O2 SATURATION (test code = POCO2S) 99.8 % 90-100 N [id number] 11:02:00* Test Item Value Reference Range Interpretation Comments SODIUM (test code = NA/ABG) 138 MEQ/L 134-147 N [id number] 11:02:00* Test Item Value Reference Range Interpretation Comments POTASSIUM (test code = K/ABG) 4.5 MEQ/L 3.4-5.0 N [id number] 11:02:00* Test Item Value Reference Range Interpretation Comments CHLORIDE (test code = CL/ABG) MEQ/L 100-108 CREATININE [id number] 11:02:00* Test Item Value Reference Range Interpretation Comments CREATININE ABG (test code = CREAABG) mg/dL 0.8-1.3 [id number] 11:02:00* Test Item Value Reference Range Interpretation Comments HEMOGLOBIN (test code = HGB/ABG) G/DL 12.5-16.9 [id number] 11:02:00* Test Item Value Reference Range Interpretation Comments HEMATOCRIT (test code = HCT/ABG) % 37.5-50.7 POC IONIZED [id number] 11:02:00* Test Item Value Reference Range Interpretation Comments POC IONIZED CALCIUM (test code = POCCA) 1.16 MMOL/L 1.12-1.32 N POC [id number] 11:02:00* Test Item Value Reference Range Interpretation Comments POC GLUCOSE (test code = POCGLU) MG/DL 70-110 POC ARTERIAL BLOOD [id number] 11:02:00* Test Item Value Reference Range Interpretation Comments POC ARTERIAL BLOOD GAS PH (test code = POCPHA) 7.366 7.35-7. 45 N POC ARTERIAL BLOOD GAS PCO2 (test code = UJDLEN3S) 31.3 mmHg 35. 0-45 L POC TCO2 ARTERIAL (test code = POCTCO2) 18.9 POC ARTERIAL BLOOD GAS PO2 (test code = YJULN3C) 226.3 mmHg 80-10 0.0 HH POC HCO3 ARTERIAL (test code = KSGREK4S) 18.0 MMOL/L 22.0-26.0 L POC BASE EXCESS (test code = POCBEA) -6.7 MMOL/L -4.0-4.0 L POC O2 SATURATION (test code = POCO2S) 99.8 % 90-100 N [id number] 11:02:00* Test Item Value Reference Range Interpretation Comments SODIUM (test code = NA/ABG) 138 MEQ/L 134-147 N [id number] 11:02:00* Test Item Value Reference Range Interpretation Comments POTASSIUM (test code = K/ABG) 4.5 MEQ/L 3.4-5.0 N [id number] 11:02:00* Test Item Value Reference Range Interpretation Comments CHLORIDE (test code = CL/ABG) MEQ/L 100-108 CREATININE [id number] 11:02:00* Test Item Value Reference Range Interpretation Comments CREATININE ABG (test code = CREAABG) mg/dL 0.8-1.3 [id number] 11:02:00* Test Item Value Reference Range Interpretation Comments HEMOGLOBIN (test code = HGB/ABG) G/DL 12.5-16.9 [id number] 11:02:00* Test Item Value Reference Range Interpretation Comments HEMATOCRIT (test code = HCT/ABG) % 37.5-50.7 POC IONIZED [id number] 11:02:00* Test Item Value Reference Range Interpretation Comments POC IONIZED CALCIUM (test code = POCCA) 1.16 MMOL/L 1.12-1.32 N POC [id number] 11:02:00* Test Item Value Reference Range Interpretation Comments POC GLUCOSE (test code = POCGLU) 240 MG/DL 70-110 H POC ARTERIAL BLOOD [id number] 11:02:00* Test Item Value Reference Range Interpretation Comments POC ARTERIAL BLOOD GAS PH (test code = POCPHA) 7.366 7.35-7. 45 N POC ARTERIAL BLOOD GAS PCO2 (test code = VVDUOD3C) 31.3 mmHg 35. 0-45 L POC TCO2 ARTERIAL (test code = POCTCO2) 18.9 POC ARTERIAL BLOOD GAS PO2 (test code = JRRSK5I) 226.3 mmHg 80-10 0.0 HH POC HCO3 ARTERIAL (test code = PHKJKO4I) 18.0 MMOL/L 22.0-26.0 L POC BASE EXCESS (test code = POCBEA) -6.7 MMOL/L -4.0-4.0 L POC O2 SATURATION (test code = POCO2S) 99.8 % 90-100 N [id number] 11:02:00* Test Item Value Reference Range Interpretation Comments SODIUM (test code = NA/ABG) 138 MEQ/L 134-147 N [id number] 11:02:00* Test Item Value Reference Range Interpretation Comments POTASSIUM (test code = K/ABG) 4.5 MEQ/L 3.4-5.0 N [id number] 11:02:00* Test Item Value Reference Range Interpretation Comments CHLORIDE (test code = CL/ABG) MEQ/L 100-108 CREATININE [id number] 11:02:00* Test Item Value Reference Range Interpretation Comments CREATININE ABG (test code = CREAABG) mg/dL 0.8-1.3 [id number] 11:02:00* Test Item Value Reference Range Interpretation Comments HEMOGLOBIN (test code = HGB/ABG) G/DL 12.5-16.9 [id number] 11:02:00* Test Item Value Reference Range Interpretation Comments HEMATOCRIT (test code = HCT/ABG) 22 % 37.5-50.7 L POC IONIZED [id number] 11:02:00* Test Item Value Reference Range Interpretation Comments POC IONIZED CALCIUM (test code = POCCA) 1.16 MMOL/L 1.12-1.32 N POC [id number] 11:02:00* Test Item Value Reference Range Interpretation Comments POC GLUCOSE (test code = POCGLU) 240 MG/DL 70-110 H POC ARTERIAL BLOOD [id number] 11:02:00* Test Item Value Reference Range Interpretation Comments POC ARTERIAL BLOOD GAS PH (test code = POCPHA) 7.366 7.35-7. 45 N POC ARTERIAL BLOOD GAS PCO2 (test code = KVVTLJ6Z) 31.3 mmHg 35. 0-45 L POC TCO2 ARTERIAL (test code = POCTCO2) 18.9 POC ARTERIAL BLOOD GAS PO2 (test code = WNKKH6R) 226.3 mmHg 80-10 0.0 HH POC HCO3 ARTERIAL (test code = HNDQGF8Z) 18.0 MMOL/L 22.0-26.0 L POC BASE EXCESS (test code = POCBEA) -6.7 MMOL/L -4.0-4.0 L POC O2 SATURATION (test code = POCO2S) 99.8 % 90-100 N [id number] 11:02:00* Test Item Value Reference Range Interpretation Comments SODIUM (test code = NA/ABG) 138 MEQ/L 134-147 N [id number] 11:02:00* Test Item Value Reference Range Interpretation Comments POTASSIUM (test code = K/ABG) 4.5 MEQ/L 3.4-5.0 N [id number] 11:02:00* Test Item Value Reference Range Interpretation Comments CHLORIDE (test code = CL/ABG) MEQ/L 100-108 CREATININE [id number] 11:02:00* Test Item Value Reference Range Interpretation Comments CREATININE ABG (test code = CREAABG) mg/dL 0.8-1.3 [id number] 11:02:00* Test Item Value Reference Range Interpretation Comments HEMOGLOBIN (test code = HGB/ABG) 7.6 G/DL 12.5-16.9 L [id number] 11:02:00* Test Item Value Reference Range Interpretation Comments HEMATOCRIT (test code = HCT/ABG) 22 % 37.5-50.7 L POC IONIZED [id number] 11:02:00* Test Item Value Reference Range Interpretation Comments POC IONIZED CALCIUM (test code = POCCA) 1.16 MMOL/L 1.12-1.32 N POC [id number] 11:02:00* Test Item Value Reference Range Interpretation Comments POC GLUCOSE (test code = POCGLU) 240 MG/DL 70-110 H POC ARTERIAL BLOOD [id number] 11:02:00* Test Item Value Reference Range Interpretation Comments POC ARTERIAL BLOOD GAS PH (test code = POCPHA) 7.366 7.35-7. 45 N POC ARTERIAL BLOOD GAS PCO2 (test code = EKACEU2V) 31.3 mmHg 35. 0-45 L POC TCO2 ARTERIAL (test code = POCTCO2) 18.9 POC ARTERIAL BLOOD GAS PO2 (test code = VFJBC4A) 226.3 mmHg 80-10 0.0 HH POC HCO3 ARTERIAL (test code = OGNXLI6V) 18.0 MMOL/L 22.0-26.0 L POC BASE EXCESS (test code = POCBEA) -6.7 MMOL/L -4.0-4.0 L POC O2 SATURATION (test code = POCO2S) 99.8 % 90-100 N [id number] 11:02:00* Test Item Value Reference Range Interpretation Comments SODIUM (test code = NA/ABG) 138 MEQ/L 134-147 N [id number] 11:02:00* Test Item Value Reference Range Interpretation Comments POTASSIUM (test code = K/ABG) 4.5 MEQ/L 3.4-5.0 N [id number] 11:02:00* Test Item Value Reference Range Interpretation Comments CHLORIDE (test code = CL/ABG) 104 MEQ/L 100-108 N CREATININE [id number] 11:02:00* Test Item Value Reference Range Interpretation Comments CREATININE ABG (test code = CREAABG) mg/dL 0.8-1.3 [id number] 11:02:00* Test Item Value Reference Range Interpretation Comments HEMOGLOBIN (test code = HGB/ABG) 7.6 G/DL 12.5-16.9 L [id number] 11:02:00* Test Item Value Reference Range Interpretation Comments HEMATOCRIT (test code = HCT/ABG) 22 % 37.5-50.7 L POC IONIZED [id number] 11:02:00* Test Item Value Reference Range Interpretation Comments POC IONIZED CALCIUM (test code = POCCA) 1.16 MMOL/L 1.12-1.32 N POC [id number] 11:02:00* Test Item Value Reference Range Interpretation Comments POC GLUCOSE (test code = POCGLU) 240 MG/DL 70-110 H POC ARTERIAL BLOOD [id number] 11:02:00* Test Item Value Reference Range Interpretation Comments POC ARTERIAL BLOOD GAS PH (test code = POCPHA) 7.366 7.35-7. 45 N POC ARTERIAL BLOOD GAS PCO2 (test code = UORPUB1W) 31.3 mmHg 35. 0-45 L POC TCO2 ARTERIAL (test code = POCTCO2) 18.9 POC ARTERIAL BLOOD GAS PO2 (test code = GTQUD1I) 226.3 mmHg 80-10 0.0 HH POC HCO3 ARTERIAL (test code = NUXCEI0H) 18.0 MMOL/L 22.0-26.0 L POC BASE EXCESS (test code = POCBEA) -6.7 MMOL/L -4.0-4.0 L POC O2 SATURATION (test code = POCO2S) 99.8 % 90-100 N [id number] 11:02:00* Test Item Value Reference Range Interpretation Comments SODIUM (test code = NA/ABG) 138 MEQ/L 134-147 N [id number] 11:02:00* Test Item Value Reference Range Interpretation Comments POTASSIUM (test code = K/ABG) 4.5 MEQ/L 3.4-5.0 N [id number] 11:02:00* Test Item Value Reference Range Interpretation Comments CHLORIDE (test code = CL/ABG) 104 MEQ/L 100-108 N CREATININE [id number] 11:02:00* Test Item Value Reference Range Interpretation Comments CREATININE ABG (test code = CREAABG) 1.0 mg/dL 0.8-1.3 N [id number] 11:02:00* Test Item Value Reference Range Interpretation Comments HEMOGLOBIN (test code = HGB/ABG) 7.6 G/DL 12.5-16.9 L [id number] 11:02:00* Test Item Value Reference Range Interpretation Comments HEMATOCRIT (test code = HCT/ABG) 22 % 37.5-50.7 L POC IONIZED [id number] 11:02:00* Test Item Value Reference Range Interpretation Comments POC IONIZED CALCIUM (test code = POCCA) 1.16 MMOL/L 1.12-1.32 N POC [id number] 11:02:00* Test Item Value Reference Range Interpretation Comments POC GLUCOSE (test code = POCGLU) 240 MG/DL 70-110 H POC ARTERIAL BLOOD [id number] 10:28:00* Test Item Value Reference Range Interpretation Comments POC ARTERIAL BLOOD GAS PH (test code = POCPHA) 7.433 7.35-7. 45 N POC ARTERIAL BLOOD GAS PCO2 (test code = QJCBRU4V) 32.7 mmHg 35. 0-45 L POC TCO2 ARTERIAL (test code = POCTCO2) 22.8 POC ARTERIAL BLOOD GAS PO2 (test code = LCUNG0D) 422.1 mmHg 80-10 0.0 HH POC HCO3 ARTERIAL (test code = DYDHKJ2N) 21.8 MMOL/L 22.0-26.0 L POC BASE EXCESS (test code = POCBEA) -2.2 MMOL/L -4.0-4.0 N POC O2 SATURATION (test code = POCO2S) 100.0 % 90-100 N [id number] 10:28:00* Test Item Value Reference Range Interpretation Comments SODIUM (test code = NA/ABG) MEQ/L 134-147 [id number] 10:28:00* Test Item Value Reference Range Interpretation Comments POTASSIUM (test code = K/ABG) MEQ/L 3.4-5.0 [id number] 10:28:00* Test Item Value Reference Range Interpretation Comments CHLORIDE (test code = CL/ABG) MEQ/L 100-108 CREATININE [id number] 10:28:00* Test Item Value Reference Range Interpretation Comments CREATININE ABG (test code = CREAABG) mg/dL 0.8-1.3 [id number] 10:28:00* Test Item Value Reference Range Interpretation Comments HEMOGLOBIN (test code = HGB/ABG) G/DL 12.5-16.9 [id number] 10:28:00* Test Item Value Reference Range Interpretation Comments HEMATOCRIT (test code = HCT/ABG) % 37.5-50.7 POC IONIZED [id number] 10:28:00* Test Item Value Reference Range Interpretation Comments POC IONIZED CALCIUM (test code = POCCA) MMOL/L 1.12-1.32 POC [id number] 10:28:00* Test Item Value Reference Range Interpretation Comments POC GLUCOSE (test code = POCGLU) MG/DL 70-110 POC ARTERIAL BLOOD [id number] 10:28:00* Test Item Value Reference Range Interpretation Comments POC ARTERIAL BLOOD GAS PH (test code = POCPHA) 7.433 7.35-7. 45 N POC ARTERIAL BLOOD GAS PCO2 (test code = FICIAW7M) 32.7 mmHg 35. 0-45 L POC TCO2 ARTERIAL (test code = POCTCO2) 22.8 POC ARTERIAL BLOOD GAS PO2 (test code = FLWGS2Q) 422.1 mmHg 80-10 0.0 HH POC HCO3 ARTERIAL (test code = LFHQZW0H) 21.8 MMOL/L 22.0-26.0 L POC BASE EXCESS (test code = POCBEA) -2.2 MMOL/L -4.0-4.0 N POC O2 SATURATION (test code = POCO2S) 100.0 % 90-100 N [id number] 10:28:00* Test Item Value Reference Range Interpretation Comments SODIUM (test code = NA/ABG) 138 MEQ/L 134-147 N [id number] 10:28:00* Test Item Value Reference Range Interpretation Comments POTASSIUM (test code = K/ABG) MEQ/L 3.4-5.0 [id number] 10:28:00* Test Item Value Reference Range Interpretation Comments CHLORIDE (test code = CL/ABG) MEQ/L 100-108 CREATININE [id number] 10:28:00* Test Item Value Reference Range Interpretation Comments CREATININE ABG (test code = CREAABG) mg/dL 0.8-1.3 [id number] 10:28:00* Test Item Value Reference Range Interpretation Comments HEMOGLOBIN (test code = HGB/ABG) G/DL 12.5-16.9 [id number] 10:28:00* Test Item Value Reference Range Interpretation Comments HEMATOCRIT (test code = HCT/ABG) % 37.5-50.7 POC IONIZED [id number] 10:28:00* Test Item Value Reference Range Interpretation Comments POC IONIZED CALCIUM (test code = POCCA) MMOL/L 1.12-1.32 POC [id number] 10:28:00* Test Item Value Reference Range Interpretation Comments POC GLUCOSE (test code = POCGLU) MG/DL 70-110 POC ARTERIAL BLOOD [id number] 10:28:00* Test Item Value Reference Range Interpretation Comments POC ARTERIAL BLOOD GAS PH (test code = POCPHA) 7.433 7.35-7. 45 N POC ARTERIAL BLOOD GAS PCO2 (test code = QNVOCI4I) 32.7 mmHg 35. 0-45 L POC TCO2 ARTERIAL (test code = POCTCO2) 22.8 POC ARTERIAL BLOOD GAS PO2 (test code = SBSWB5F) 422.1 mmHg 80-10 0.0 HH POC HCO3 ARTERIAL (test code = RRHFYL1C) 21.8 MMOL/L 22.0-26.0 L POC BASE EXCESS (test code = POCBEA) -2.2 MMOL/L -4.0-4.0 N POC O2 SATURATION (test code = POCO2S) 100.0 % 90-100 N [id number] 10:28:00* Test Item Value Reference Range Interpretation Comments SODIUM (test code = NA/ABG) 138 MEQ/L 134-147 N [id number] 10:28:00* Test Item Value Reference Range Interpretation Comments POTASSIUM (test code = K/ABG) 4.3 MEQ/L 3.4-5.0 N [id number] 10:28:00* Test Item Value Reference Range Interpretation Comments CHLORIDE (test code = CL/ABG) MEQ/L 100-108 CREATININE [id number] 10:28:00* Test Item Value Reference Range Interpretation Comments CREATININE ABG (test code = CREAABG) mg/dL 0.8-1.3 [id number] 10:28:00* Test Item Value Reference Range Interpretation Comments HEMOGLOBIN (test code = HGB/ABG) G/DL 12.5-16.9 [id number] 10:28:00* Test Item Value Reference Range Interpretation Comments HEMATOCRIT (test code = HCT/ABG) % 37.5-50.7 POC IONIZED [id number] 10:28:00* Test Item Value Reference Range Interpretation Comments POC IONIZED CALCIUM (test code = POCCA) MMOL/L 1.12-1.32 POC [id number] 10:28:00* Test Item Value Reference Range Interpretation Comments POC GLUCOSE (test code = POCGLU) MG/DL 70-110 POC ARTERIAL BLOOD [id number] 10:28:00* Test Item Value Reference Range Interpretation Comments POC ARTERIAL BLOOD GAS PH (test code = POCPHA) 7.433 7.35-7. 45 N POC ARTERIAL BLOOD GAS PCO2 (test code = CBUXTL1S) 32.7 mmHg 35. 0-45 L POC TCO2 ARTERIAL (test code = POCTCO2) 22.8 POC ARTERIAL BLOOD GAS PO2 (test code = QAFBX1Z) 422.1 mmHg 80-10 0.0 HH POC HCO3 ARTERIAL (test code = XBLIIA2L) 21.8 MMOL/L 22.0-26.0 L POC BASE EXCESS (test code = POCBEA) -2.2 MMOL/L -4.0-4.0 N POC O2 SATURATION (test code = POCO2S) 100.0 % 90-100 N [id number] 10:28:00* Test Item Value Reference Range Interpretation Comments SODIUM (test code = NA/ABG) 138 MEQ/L 134-147 N [id number] 10:28:00* Test Item Value Reference Range Interpretation Comments POTASSIUM (test code = K/ABG) 4.3 MEQ/L 3.4-5.0 N [id number] 10:28:00* Test Item Value Reference Range Interpretation Comments CHLORIDE (test code = CL/ABG) MEQ/L 100-108 CREATININE [id number] 10:28:00* Test Item Value Reference Range Interpretation Comments CREATININE ABG (test code = CREAABG) mg/dL 0.8-1.3 [id number] 10:28:00* Test Item Value Reference Range Interpretation Comments HEMOGLOBIN (test code = HGB/ABG) G/DL 12.5-16.9 [id number] 10:28:00* Test Item Value Reference Range Interpretation Comments HEMATOCRIT (test code = HCT/ABG) % 37.5-50.7 POC IONIZED [id number] 10:28:00* Test Item Value Reference Range Interpretation Comments POC IONIZED CALCIUM (test code = POCCA) 1.16 MMOL/L 1.12-1.32 N POC [id number] 10:28:00* Test Item Value Reference Range Interpretation Comments POC GLUCOSE (test code = POCGLU) MG/DL 70-110 POC ARTERIAL BLOOD [id number] 10:28:00* Test Item Value Reference Range Interpretation Comments POC ARTERIAL BLOOD GAS PH (test code = POCPHA) 7.433 7.35-7. 45 N POC ARTERIAL BLOOD GAS PCO2 (test code = MJFTVM4C) 32.7 mmHg 35. 0-45 L POC TCO2 ARTERIAL (test code = POCTCO2) 22.8 POC ARTERIAL BLOOD GAS PO2 (test code = AJFLU4F) 422.1 mmHg 80-10 0.0 HH POC HCO3 ARTERIAL (test code = HYHOWK8U) 21.8 MMOL/L 22.0-26.0 L POC BASE EXCESS (test code = POCBEA) -2.2 MMOL/L -4.0-4.0 N POC O2 SATURATION (test code = POCO2S) 100.0 % 90-100 N [id number] 10:28:00* Test Item Value Reference Range Interpretation Comments SODIUM (test code = NA/ABG) 138 MEQ/L 134-147 N [id number] 10:28:00* Test Item Value Reference Range Interpretation Comments POTASSIUM (test code = K/ABG) 4.3 MEQ/L 3.4-5.0 N [id number] 10:28:00* Test Item Value Reference Range Interpretation Comments CHLORIDE (test code = CL/ABG) MEQ/L 100-108 CREATININE [id number] 10:28:00* Test Item Value Reference Range Interpretation Comments CREATININE ABG (test code = CREAABG) mg/dL 0.8-1.3 [id number] 10:28:00* Test Item Value Reference Range Interpretation Comments HEMOGLOBIN (test code = HGB/ABG) G/DL 12.5-16.9 [id number] 10:28:00* Test Item Value Reference Range Interpretation Comments HEMATOCRIT (test code = HCT/ABG) % 37.5-50.7 POC IONIZED [id number] 10:28:00* Test Item Value Reference Range Interpretation Comments POC IONIZED CALCIUM (test code = POCCA) 1.16 MMOL/L 1.12-1.32 N POC [id number] 10:28:00* Test Item Value Reference Range Interpretation Comments POC GLUCOSE (test code = POCGLU) 186 MG/DL 70-110 H POC ARTERIAL BLOOD [id number] 10:28:00* Test Item Value Reference Range Interpretation Comments POC ARTERIAL BLOOD GAS PH (test code = POCPHA) 7.433 7.35-7. 45 N POC ARTERIAL BLOOD GAS PCO2 (test code = HCFRNY5G) 32.7 mmHg 35. 0-45 L POC TCO2 ARTERIAL (test code = POCTCO2) 22.8 POC ARTERIAL BLOOD GAS PO2 (test code = EBHMA6H) 422.1 mmHg 80-10 0.0 HH POC HCO3 ARTERIAL (test code = WFKYNN1E) 21.8 MMOL/L 22.0-26.0 L POC BASE EXCESS (test code = POCBEA) -2.2 MMOL/L -4.0-4.0 N POC O2 SATURATION (test code = POCO2S) 100.0 % 90-100 N [id number] 10:28:00* Test Item Value Reference Range Interpretation Comments SODIUM (test code = NA/ABG) 138 MEQ/L 134-147 N [id number] 10:28:00* Test Item Value Reference Range Interpretation Comments POTASSIUM (test code = K/ABG) 4.3 MEQ/L 3.4-5.0 N [id number] 10:28:00* Test Item Value Reference Range Interpretation Comments CHLORIDE (test code = CL/ABG) MEQ/L 100-108 CREATININE [id number] 10:28:00* Test Item Value Reference Range Interpretation Comments CREATININE ABG (test code = CREAABG) mg/dL 0.8-1.3 [id number] 10:28:00* Test Item Value Reference Range Interpretation Comments HEMOGLOBIN (test code = HGB/ABG) G/DL 12.5-16.9 [id number] 10:28:00* Test Item Value Reference Range Interpretation Comments HEMATOCRIT (test code = HCT/ABG) 20 % 37.5-50.7 L POC IONIZED [id number] 10:28:00* Test Item Value Reference Range Interpretation Comments POC IONIZED CALCIUM (test code = POCCA) 1.16 MMOL/L 1.12-1.32 N POC [id number] 10:28:00* Test Item Value Reference Range Interpretation Comments POC GLUCOSE (test code = POCGLU) 186 MG/DL 70-110 H POC ARTERIAL BLOOD [id number] 10:28:00* Test Item Value Reference Range Interpretation Comments POC ARTERIAL BLOOD GAS PH (test code = POCPHA) 7.433 7.35-7. 45 N POC ARTERIAL BLOOD GAS PCO2 (test code = WBWRSB9V) 32.7 mmHg 35. 0-45 L POC TCO2 ARTERIAL (test code = POCTCO2) 22.8 POC ARTERIAL BLOOD GAS PO2 (test code = RZQNE7K) 422.1 mmHg 80-10 0.0 HH POC HCO3 ARTERIAL (test code = JLVVXR3X) 21.8 MMOL/L 22.0-26.0 L POC BASE EXCESS (test code = POCBEA) -2.2 MMOL/L -4.0-4.0 N POC O2 SATURATION (test code = POCO2S) 100.0 % 90-100 N [id number] 10:28:00* Test Item Value Reference Range Interpretation Comments SODIUM (test code = NA/ABG) 138 MEQ/L 134-147 N [id number] 10:28:00* Test Item Value Reference Range Interpretation Comments POTASSIUM (test code = K/ABG) 4.3 MEQ/L 3.4-5.0 N [id number] 10:28:00* Test Item Value Reference Range Interpretation Comments CHLORIDE (test code = CL/ABG) MEQ/L 100-108 CREATININE [id number] 10:28:00* Test Item Value Reference Range Interpretation Comments CREATININE ABG (test code = CREAABG) mg/dL 0.8-1.3 [id number] 10:28:00* Test Item Value Reference Range Interpretation Comments HEMOGLOBIN (test code = HGB/ABG) 6.7 G/DL 12.5-16.9 L [id number] 10:28:00* Test Item Value Reference Range Interpretation Comments HEMATOCRIT (test code = HCT/ABG) 20 % 37.5-50.7 L POC IONIZED [id number] 10:28:00* Test Item Value Reference Range Interpretation Comments POC IONIZED CALCIUM (test code = POCCA) 1.16 MMOL/L 1.12-1.32 N POC [id number] 10:28:00* Test Item Value Reference Range Interpretation Comments POC GLUCOSE (test code = POCGLU) 186 MG/DL 70-110 H POC ARTERIAL BLOOD [id number] 10:28:00* Test Item Value Reference Range Interpretation Comments POC ARTERIAL BLOOD GAS PH (test code = POCPHA) 7.433 7.35-7. 45 N POC ARTERIAL BLOOD GAS PCO2 (test code = CVPZIN1F) 32.7 mmHg 35. 0-45 L POC TCO2 ARTERIAL (test code = POCTCO2) 22.8 POC ARTERIAL BLOOD GAS PO2 (test code = ICQJJ9I) 422.1 mmHg 80-10 0.0 HH POC HCO3 ARTERIAL (test code = KGVHNL3J) 21.8 MMOL/L 22.0-26.0 L POC BASE EXCESS (test code = POCBEA) -2.2 MMOL/L -4.0-4.0 N POC O2 SATURATION (test code = POCO2S) 100.0 % 90-100 N [id number] 10:28:00* Test Item Value Reference Range Interpretation Comments SODIUM (test code = NA/ABG) 138 MEQ/L 134-147 N [id number] 10:28:00* Test Item Value Reference Range Interpretation Comments POTASSIUM (test code = K/ABG) 4.3 MEQ/L 3.4-5.0 N [id number] 10:28:00* Test Item Value Reference Range Interpretation Comments CHLORIDE (test code = CL/ABG) 106 MEQ/L 100-108 N CREATININE [id number] 10:28:00* Test Item Value Reference Range Interpretation Comments CREATININE ABG (test code = CREAABG) mg/dL 0.8-1.3 [id number] 10:28:00* Test Item Value Reference Range Interpretation Comments HEMOGLOBIN (test code = HGB/ABG) 6.7 G/DL 12.5-16.9 L [id number] 10:28:00* Test Item Value Reference Range Interpretation Comments HEMATOCRIT (test code = HCT/ABG) 20 % 37.5-50.7 L POC IONIZED [id number] 10:28:00* Test Item Value Reference Range Interpretation Comments POC IONIZED CALCIUM (test code = POCCA) 1.16 MMOL/L 1.12-1.32 N POC [id number] 10:28:00* Test Item Value Reference Range Interpretation Comments POC GLUCOSE (test code = POCGLU) 186 MG/DL 70-110 H POC ARTERIAL BLOOD [id number] 10:28:00* Test Item Value Reference Range Interpretation Comments POC ARTERIAL BLOOD GAS PH (test code = POCPHA) 7.433 7.35-7. 45 N POC ARTERIAL BLOOD GAS PCO2 (test code = NEJPLS2H) 32.7 mmHg 35. 0-45 L POC TCO2 ARTERIAL (test code = POCTCO2) 22.8 POC ARTERIAL BLOOD GAS PO2 (test code = BJYTJ6E) 422.1 mmHg 80-10 0.0 HH POC HCO3 ARTERIAL (test code = CAWZFY7B) 21.8 MMOL/L 22.0-26.0 L POC BASE EXCESS (test code = POCBEA) -2.2 MMOL/L -4.0-4.0 N POC O2 SATURATION (test code = POCO2S) 100.0 % 90-100 N [id number] 10:28:00* Test Item Value Reference Range Interpretation Comments SODIUM (test code = NA/ABG) 138 MEQ/L 134-147 N [id number] 10:28:00* Test Item Value Reference Range Interpretation Comments POTASSIUM (test code = K/ABG) 4.3 MEQ/L 3.4-5.0 N [id number] 10:28:00* Test Item Value Reference Range Interpretation Comments CHLORIDE (test code = CL/ABG) 106 MEQ/L 100-108 N CREATININE [id number] 10:28:00* Test Item Value Reference Range Interpretation Comments CREATININE ABG (test code = CREAABG) 0.9 mg/dL 0.8-1.3 N [id number] 10:28:00* Test Item Value Reference Range Interpretation Comments HEMOGLOBIN (test code = HGB/ABG) 6.7 G/DL 12.5-16.9 L [id number] 10:28:00* Test Item Value Reference Range Interpretation Comments HEMATOCRIT (test code = HCT/ABG) 20 % 37.5-50.7 L POC IONIZED [id number] 10:28:00* Test Item Value Reference Range Interpretation Comments POC IONIZED CALCIUM (test code = POCCA) 1.16 MMOL/L 1.12-1.32 N POC [id number] 10:28:00* Test Item Value Reference Range Interpretation Comments POC GLUCOSE (test code = POCGLU) 186 MG/DL 70-110 H POC ARTERIAL BLOOD [id number] 10:00:00* Test Item Value Reference Range Interpretation Comments POC ARTERIAL BLOOD GAS PH (test code = POCPHA) 7.412 7.35-7. 45 N POC ARTERIAL BLOOD GAS PCO2 (test code = CKMJIL0Y) 38.5 mmHg 35. 0-45 N POC TCO2 ARTERIAL (test code = POCTCO2) 25.7 POC ARTERIAL BLOOD GAS PO2 (test code = RERJH2E) 425.2 mmHg 80-10 0.0 HH POC HCO3 ARTERIAL (test code = VJBBWR1K) 24.5 MMOL/L 22.0-26.0 N POC BASE EXCESS (test code = POCBEA) -0.1 MMOL/L -4.0-4.0 N POC O2 SATURATION (test code = POCO2S) 100.0 % 90-100 N [id number] 10:00:00* Test Item Value Reference Range Interpretation Comments SODIUM (test code = NA/ABG) MEQ/L 134-147 [id number] 10:00:00* Test Item Value Reference Range Interpretation Comments POTASSIUM (test code = K/ABG) MEQ/L 3.4-5.0 [id number] 10:00:00* Test Item Value Reference Range Interpretation Comments CHLORIDE (test code = CL/ABG) MEQ/L 100-108 CREATININE [id number] 10:00:00* Test Item Value Reference Range Interpretation Comments CREATININE ABG (test code = CREAABG) mg/dL 0.8-1.3 [id number] 10:00:00* Test Item Value Reference Range Interpretation Comments HEMOGLOBIN (test code = HGB/ABG) G/DL 12.5-16.9 [id number] 10:00:00* Test Item Value Reference Range Interpretation Comments HEMATOCRIT (test code = HCT/ABG) % 37.5-50.7 POC IONIZED [id number] 10:00:00* Test Item Value Reference Range Interpretation Comments POC IONIZED CALCIUM (test code = POCCA) MMOL/L 1.12-1.32 POC [id number] 10:00:00* Test Item Value Reference Range Interpretation Comments POC GLUCOSE (test code = POCGLU) MG/DL 70-110 POC ARTERIAL BLOOD [id number] 10:00:00* Test Item Value Reference Range Interpretation Comments POC ARTERIAL BLOOD GAS PH (test code = POCPHA) 7.412 7.35-7. 45 N POC ARTERIAL BLOOD GAS PCO2 (test code = RLRNRI8A) 38.5 mmHg 35. 0-45 N POC TCO2 ARTERIAL (test code = POCTCO2) 25.7 POC ARTERIAL BLOOD GAS PO2 (test code = QIYNN1H) 425.2 mmHg 80-10 0.0 HH POC HCO3 ARTERIAL (test code = EOGJCO3M) 24.5 MMOL/L 22.0-26.0 N POC BASE EXCESS (test code = POCBEA) -0.1 MMOL/L -4.0-4.0 N POC O2 SATURATION (test code = POCO2S) 100.0 % 90-100 N [id number] 10:00:00* Test Item Value Reference Range Interpretation Comments SODIUM (test code = NA/ABG) 138 MEQ/L 134-147 N [id number] 10:00:00* Test Item Value Reference Range Interpretation Comments POTASSIUM (test code = K/ABG) MEQ/L 3.4-5.0 [id number] 10:00:00* Test Item Value Reference Range Interpretation Comments CHLORIDE (test code = CL/ABG) MEQ/L 100-108 CREATININE [id number] 10:00:00* Test Item Value Reference Range Interpretation Comments CREATININE ABG (test code = CREAABG) mg/dL 0.8-1.3 [id number] 10:00:00* Test Item Value Reference Range Interpretation Comments HEMOGLOBIN (test code = HGB/ABG) G/DL 12.5-16.9 [id number] 10:00:00* Test Item Value Reference Range Interpretation Comments HEMATOCRIT (test code = HCT/ABG) % 37.5-50.7 POC IONIZED [id number] 10:00:00* Test Item Value Reference Range Interpretation Comments POC IONIZED CALCIUM (test code = POCCA) MMOL/L 1.12-1.32 POC [id number] 10:00:00* Test Item Value Reference Range Interpretation Comments POC GLUCOSE (test code = POCGLU) MG/DL 70-110 POC ARTERIAL BLOOD [id number] 10:00:00* Test Item Value Reference Range Interpretation Comments POC ARTERIAL BLOOD GAS PH (test code = POCPHA) 7.412 7.35-7. 45 N POC ARTERIAL BLOOD GAS PCO2 (test code = CZLZSX4W) 38.5 mmHg 35. 0-45 N POC TCO2 ARTERIAL (test code = POCTCO2) 25.7 POC ARTERIAL BLOOD GAS PO2 (test code = PYOBB9S) 425.2 mmHg 80-10 0.0 HH POC HCO3 ARTERIAL (test code = GFCKPO6J) 24.5 MMOL/L 22.0-26.0 N POC BASE EXCESS (test code = POCBEA) -0.1 MMOL/L -4.0-4.0 N POC O2 SATURATION (test code = POCO2S) 100.0 % 90-100 N [id number] 10:00:00* Test Item Value Reference Range Interpretation Comments SODIUM (test code = NA/ABG) 138 MEQ/L 134-147 N [id number] 10:00:00* Test Item Value Reference Range Interpretation Comments POTASSIUM (test code = K/ABG) 4.5 MEQ/L 3.4-5.0 N [id number] 10:00:00* Test Item Value Reference Range Interpretation Comments CHLORIDE (test code = CL/ABG) MEQ/L 100-108 CREATININE [id number] 10:00:00* Test Item Value Reference Range Interpretation Comments CREATININE ABG (test code = CREAABG) mg/dL 0.8-1.3 [id number] 10:00:00* Test Item Value Reference Range Interpretation Comments HEMOGLOBIN (test code = HGB/ABG) G/DL 12.5-16.9 [id number] 10:00:00* Test Item Value Reference Range Interpretation Comments HEMATOCRIT (test code = HCT/ABG) % 37.5-50.7 POC IONIZED [id number] 10:00:00* Test Item Value Reference Range Interpretation Comments POC IONIZED CALCIUM (test code = POCCA) MMOL/L 1.12-1.32 POC [id number] 10:00:00* Test Item Value Reference Range Interpretation Comments POC GLUCOSE (test code = POCGLU) MG/DL 70-110 POC ARTERIAL BLOOD [id number] 10:00:00* Test Item Value Reference Range Interpretation Comments POC ARTERIAL BLOOD GAS PH (test code = POCPHA) 7.412 7.35-7. 45 N POC ARTERIAL BLOOD GAS PCO2 (test code = WOORCF0L) 38.5 mmHg 35. 0-45 N POC TCO2 ARTERIAL (test code = POCTCO2) 25.7 POC ARTERIAL BLOOD GAS PO2 (test code = TRXLQ6R) 425.2 mmHg 80-10 0.0 HH POC HCO3 ARTERIAL (test code = SEJMCZ6X) 24.5 MMOL/L 22.0-26.0 N POC BASE EXCESS (test code = POCBEA) -0.1 MMOL/L -4.0-4.0 N POC O2 SATURATION (test code = POCO2S) 100.0 % 90-100 N [id number] 10:00:00* Test Item Value Reference Range Interpretation Comments SODIUM (test code = NA/ABG) 138 MEQ/L 134-147 N [id number] 10:00:00* Test Item Value Reference Range Interpretation Comments POTASSIUM (test code = K/ABG) 4.5 MEQ/L 3.4-5.0 N [id number] 10:00:00* Test Item Value Reference Range Interpretation Comments CHLORIDE (test code = CL/ABG) MEQ/L 100-108 CREATININE [id number] 10:00:00* Test Item Value Reference Range Interpretation Comments CREATININE ABG (test code = CREAABG) mg/dL 0.8-1.3 [id number] 10:00:00* Test Item Value Reference Range Interpretation Comments HEMOGLOBIN (test code = HGB/ABG) G/DL 12.5-16.9 [id number] 10:00:00* Test Item Value Reference Range Interpretation Comments HEMATOCRIT (test code = HCT/ABG) % 37.5-50.7 POC IONIZED [id number] 10:00:00* Test Item Value Reference Range Interpretation Comments POC IONIZED CALCIUM (test code = POCCA) 1.13 MMOL/L 1.12-1.32 N POC [id number] 10:00:00* Test Item Value Reference Range Interpretation Comments POC GLUCOSE (test code = POCGLU) MG/DL 70-110 POC ARTERIAL BLOOD [id number] 10:00:00* Test Item Value Reference Range Interpretation Comments POC ARTERIAL BLOOD GAS PH (test code = POCPHA) 7.412 7.35-7. 45 N POC ARTERIAL BLOOD GAS PCO2 (test code = TYHEOA1W) 38.5 mmHg 35. 0-45 N POC TCO2 ARTERIAL (test code = POCTCO2) 25.7 POC ARTERIAL BLOOD GAS PO2 (test code = LUFKO2M) 425.2 mmHg 80-10 0.0 HH POC HCO3 ARTERIAL (test code = ECNIJO7Z) 24.5 MMOL/L 22.0-26.0 N POC BASE EXCESS (test code = POCBEA) -0.1 MMOL/L -4.0-4.0 N POC O2 SATURATION (test code = POCO2S) 100.0 % 90-100 N [id number] 10:00:00* Test Item Value Reference Range Interpretation Comments SODIUM (test code = NA/ABG) 138 MEQ/L 134-147 N [id number] 10:00:00* Test Item Value Reference Range Interpretation Comments POTASSIUM (test code = K/ABG) 4.5 MEQ/L 3.4-5.0 N [id number] 10:00:00* Test Item Value Reference Range Interpretation Comments CHLORIDE (test code = CL/ABG) MEQ/L 100-108 CREATININE [id number] 10:00:00* Test Item Value Reference Range Interpretation Comments CREATININE ABG (test code = CREAABG) mg/dL 0.8-1.3 [id number] 10:00:00* Test Item Value Reference Range Interpretation Comments HEMOGLOBIN (test code = HGB/ABG) G/DL 12.5-16.9 [id number] 10:00:00* Test Item Value Reference Range Interpretation Comments HEMATOCRIT (test code = HCT/ABG) % 37.5-50.7 POC IONIZED [id number] 10:00:00* Test Item Value Reference Range Interpretation Comments POC IONIZED CALCIUM (test code = POCCA) 1.13 MMOL/L 1.12-1.32 N POC [id number] 10:00:00* Test Item Value Reference Range Interpretation Comments POC GLUCOSE (test code = POCGLU) 172 MG/DL 70-110 H POC ARTERIAL BLOOD [id number] 10:00:00* Test Item Value Reference Range Interpretation Comments POC ARTERIAL BLOOD GAS PH (test code = POCPHA) 7.412 7.35-7. 45 N POC ARTERIAL BLOOD GAS PCO2 (test code = QMPXGC5M) 38.5 mmHg 35. 0-45 N POC TCO2 ARTERIAL (test code = POCTCO2) 25.7 POC ARTERIAL BLOOD GAS PO2 (test code = FVAYC4L) 425.2 mmHg 80-10 0.0 HH POC HCO3 ARTERIAL (test code = TOAAEA1E) 24.5 MMOL/L 22.0-26.0 N POC BASE EXCESS (test code = POCBEA) -0.1 MMOL/L -4.0-4.0 N POC O2 SATURATION (test code = POCO2S) 100.0 % 90-100 N [id number] 10:00:00* Test Item Value Reference Range Interpretation Comments SODIUM (test code = NA/ABG) 138 MEQ/L 134-147 N [id number] 10:00:00* Test Item Value Reference Range Interpretation Comments POTASSIUM (test code = K/ABG) 4.5 MEQ/L 3.4-5.0 N [id number] 10:00:00* Test Item Value Reference Range Interpretation Comments CHLORIDE (test code = CL/ABG) MEQ/L 100-108 CREATININE [id number] 10:00:00* Test Item Value Reference Range Interpretation Comments CREATININE ABG (test code = CREAABG) mg/dL 0.8-1.3 [id number] 10:00:00* Test Item Value Reference Range Interpretation Comments HEMOGLOBIN (test code = HGB/ABG) G/DL 12.5-16.9 [id number] 10:00:00* Test Item Value Reference Range Interpretation Comments HEMATOCRIT (test code = HCT/ABG) 21 % 37.5-50.7 L POC IONIZED [id number] 10:00:00* Test Item Value Reference Range Interpretation Comments POC IONIZED CALCIUM (test code = POCCA) 1.13 MMOL/L 1.12-1.32 N POC [id number] 10:00:00* Test Item Value Reference Range Interpretation Comments POC GLUCOSE (test code = POCGLU) 172 MG/DL 70-110 H POC ARTERIAL BLOOD [id number] 10:00:00* Test Item Value Reference Range Interpretation Comments POC ARTERIAL BLOOD GAS PH (test code = POCPHA) 7.412 7.35-7. 45 N POC ARTERIAL BLOOD GAS PCO2 (test code = HRPMVX9K) 38.5 mmHg 35. 0-45 N POC TCO2 ARTERIAL (test code = POCTCO2) 25.7 POC ARTERIAL BLOOD GAS PO2 (test code = PSCGH0Q) 425.2 mmHg 80-10 0.0 HH POC HCO3 ARTERIAL (test code = CHPDCY3Y) 24.5 MMOL/L 22.0-26.0 N POC BASE EXCESS (test code = POCBEA) -0.1 MMOL/L -4.0-4.0 N POC O2 SATURATION (test code = POCO2S) 100.0 % 90-100 N [id number] 10:00:00* Test Item Value Reference Range Interpretation Comments SODIUM (test code = NA/ABG) 138 MEQ/L 134-147 N [id number] 10:00:00* Test Item Value Reference Range Interpretation Comments POTASSIUM (test code = K/ABG) 4.5 MEQ/L 3.4-5.0 N [id number] 10:00:00* Test Item Value Reference Range Interpretation Comments CHLORIDE (test code = CL/ABG) MEQ/L 100-108 CREATININE [id number] 10:00:00* Test Item Value Reference Range Interpretation Comments CREATININE ABG (test code = CREAABG) mg/dL 0.8-1.3 [id number] 10:00:00* Test Item Value Reference Range Interpretation Comments HEMOGLOBIN (test code = HGB/ABG) 7.3 G/DL 12.5-16.9 L [id number] 10:00:00* Test Item Value Reference Range Interpretation Comments HEMATOCRIT (test code = HCT/ABG) 21 % 37.5-50.7 L POC IONIZED [id number] 10:00:00* Test Item Value Reference Range Interpretation Comments POC IONIZED CALCIUM (test code = POCCA) 1.13 MMOL/L 1.12-1.32 N POC [id number] 10:00:00* Test Item Value Reference Range Interpretation Comments POC GLUCOSE (test code = POCGLU) 172 MG/DL 70-110 H POC ARTERIAL BLOOD [id number] 10:00:00* Test Item Value Reference Range Interpretation Comments POC ARTERIAL BLOOD GAS PH (test code = POCPHA) 7.412 7.35-7. 45 N POC ARTERIAL BLOOD GAS PCO2 (test code = NVYZRM9S) 38.5 mmHg 35. 0-45 N POC TCO2 ARTERIAL (test code = POCTCO2) 25.7 POC ARTERIAL BLOOD GAS PO2 (test code = JOAZW6Q) 425.2 mmHg 80-10 0.0 HH POC HCO3 ARTERIAL (test code = YZYMOW8Q) 24.5 MMOL/L 22.0-26.0 N POC BASE EXCESS (test code = POCBEA) -0.1 MMOL/L -4.0-4.0 N POC O2 SATURATION (test code = POCO2S) 100.0 % 90-100 N [id number] 10:00:00* Test Item Value Reference Range Interpretation Comments SODIUM (test code = NA/ABG) 138 MEQ/L 134-147 N [id number] 10:00:00* Test Item Value Reference Range Interpretation Comments POTASSIUM (test code = K/ABG) 4.5 MEQ/L 3.4-5.0 N [id number] 10:00:00* Test Item Value Reference Range Interpretation Comments CHLORIDE (test code = CL/ABG) 106 MEQ/L 100-108 N CREATININE [id number] 10:00:00* Test Item Value Reference Range Interpretation Comments CREATININE ABG (test code = CREAABG) mg/dL 0.8-1.3 [id number] 10:00:00* Test Item Value Reference Range Interpretation Comments HEMOGLOBIN (test code = HGB/ABG) 7.3 G/DL 12.5-16.9 L [id number] 10:00:00* Test Item Value Reference Range Interpretation Comments HEMATOCRIT (test code = HCT/ABG) 21 % 37.5-50.7 L POC IONIZED [id number] 10:00:00* Test Item Value Reference Range Interpretation Comments POC IONIZED CALCIUM (test code = POCCA) 1.13 MMOL/L 1.12-1.32 N POC [id number] 10:00:00* Test Item Value Reference Range Interpretation Comments POC GLUCOSE (test code = POCGLU) 172 MG/DL 70-110 H POC ARTERIAL BLOOD [id number] 10:00:00* Test Item Value Reference Range Interpretation Comments POC ARTERIAL BLOOD GAS PH (test code = POCPHA) 7.412 7.35-7. 45 N POC ARTERIAL BLOOD GAS PCO2 (test code = AUALOX6D) 38.5 mmHg 35. 0-45 N POC TCO2 ARTERIAL (test code = POCTCO2) 25.7 POC ARTERIAL BLOOD GAS PO2 (test code = QGEOY8S) 425.2 mmHg 80-10 0.0 HH POC HCO3 ARTERIAL (test code = JEUQDI3F) 24.5 MMOL/L 22.0-26.0 N POC BASE EXCESS (test code = POCBEA) -0.1 MMOL/L -4.0-4.0 N POC O2 SATURATION (test code = POCO2S) 100.0 % 90-100 N [id number] 10:00:00* Test Item Value Reference Range Interpretation Comments SODIUM (test code = NA/ABG) 138 MEQ/L 134-147 N [id number] 10:00:00* Test Item Value Reference Range Interpretation Comments POTASSIUM (test code = K/ABG) 4.5 MEQ/L 3.4-5.0 N [id number] 10:00:00* Test Item Value Reference Range Interpretation Comments CHLORIDE (test code = CL/ABG) 106 MEQ/L 100-108 N CREATININE [id number] 10:00:00* Test Item Value Reference Range Interpretation Comments CREATININE ABG (test code = CREAABG) 0.8 mg/dL 0.8-1.3 N [id number] 10:00:00* Test Item Value Reference Range Interpretation Comments HEMOGLOBIN (test code = HGB/ABG) 7.3 G/DL 12.5-16.9 L [id number] 10:00:00* Test Item Value Reference Range Interpretation Comments HEMATOCRIT (test code = HCT/ABG) 21 % 37.5-50.7 L POC IONIZED [id number] 10:00:00* Test Item Value Reference Range Interpretation Comments POC IONIZED CALCIUM (test code = POCCA) 1.13 MMOL/L 1.12-1.32 N POC [id number] 10:00:00* Test Item Value Reference Range Interpretation Comments POC GLUCOSE (test code = POCGLU) 172 MG/DL 70-110 H POC ARTERIAL BLOOD [id number] 09:38:00* Test Item Value Reference Range Interpretation Comments POC ARTERIAL BLOOD GAS PH (test code = POCPHA) 7.381 7.35-7. 45 N POC ARTERIAL BLOOD GAS PCO2 (test code = LRTGUS3W) 38.2 mmHg 35. 0-45 N POC TCO2 ARTERIAL (test code = POCTCO2) 23.8 POC ARTERIAL BLOOD GAS PO2 (test code = XUWRZ6L) 204.7 mmHg 80-10 0.0 HH POC HCO3 ARTERIAL (test code = ALHLVE4V) 22.6 MMOL/L 22.0-26.0 N POC BASE EXCESS (test code = POCBEA) -2.2 MMOL/L -4.0-4.0 N POC O2 SATURATION (test code = POCO2S) 99.7 % 90-100 N [id number] 09:38:00* Test Item Value Reference Range Interpretation Comments SODIUM (test code = NA/ABG) MEQ/L 134-147 [id number] 09:38:00* Test Item Value Reference Range Interpretation Comments POTASSIUM (test code = K/ABG) MEQ/L 3.4-5.0 [id number] 09:38:00* Test Item Value Reference Range Interpretation Comments CHLORIDE (test code = CL/ABG) MEQ/L 100-108 CREATININE [id number] 09:38:00* Test Item Value Reference Range Interpretation Comments CREATININE ABG (test code = CREAABG) mg/dL 0.8-1.3 [id number] 09:38:00* Test Item Value Reference Range Interpretation Comments HEMOGLOBIN (test code = HGB/ABG) G/DL 12.5-16.9 [id number] 09:38:00* Test Item Value Reference Range Interpretation Comments HEMATOCRIT (test code = HCT/ABG) % 37.5-50.7 POC IONIZED [id number] 09:38:00* Test Item Value Reference Range Interpretation Comments POC IONIZED CALCIUM (test code = POCCA) MMOL/L 1.12-1.32 POC [id number] 09:38:00* Test Item Value Reference Range Interpretation Comments POC GLUCOSE (test code = POCGLU) MG/DL 70-110 POC ARTERIAL BLOOD [id number] 09:38:00* Test Item Value Reference Range Interpretation Comments POC ARTERIAL BLOOD GAS PH (test code = POCPHA) 7.381 7.35-7. 45 N POC ARTERIAL BLOOD GAS PCO2 (test code = NFZIDV4B) 38.2 mmHg 35. 0-45 N POC TCO2 ARTERIAL (test code = POCTCO2) 23.8 POC ARTERIAL BLOOD GAS PO2 (test code = OTNRL0H) 204.7 mmHg 80-10 0.0 HH POC HCO3 ARTERIAL (test code = BZSDUS3Y) 22.6 MMOL/L 22.0-26.0 N POC BASE EXCESS (test code = POCBEA) -2.2 MMOL/L -4.0-4.0 N POC O2 SATURATION (test code = POCO2S) 99.7 % 90-100 N [id number] 09:38:00* Test Item Value Reference Range Interpretation Comments SODIUM (test code = NA/ABG) 138 MEQ/L 134-147 N [id number] 09:38:00* Test Item Value Reference Range Interpretation Comments POTASSIUM (test code = K/ABG) MEQ/L 3.4-5.0 [id number] 09:38:00* Test Item Value Reference Range Interpretation Comments CHLORIDE (test code = CL/ABG) MEQ/L 100-108 CREATININE [id number] 09:38:00* Test Item Value Reference Range Interpretation Comments CREATININE ABG (test code = CREAABG) mg/dL 0.8-1.3 [id number] 09:38:00* Test Item Value Reference Range Interpretation Comments HEMOGLOBIN (test code = HGB/ABG) G/DL 12.5-16.9 [id number] 09:38:00* Test Item Value Reference Range Interpretation Comments HEMATOCRIT (test code = HCT/ABG) % 37.5-50.7 POC IONIZED [id number] 09:38:00* Test Item Value Reference Range Interpretation Comments POC IONIZED CALCIUM (test code = POCCA) MMOL/L 1.12-1.32 POC [id number] 09:38:00* Test Item Value Reference Range Interpretation Comments POC GLUCOSE (test code = POCGLU) MG/DL 70-110 POC ARTERIAL BLOOD [id number] 09:38:00* Test Item Value Reference Range Interpretation Comments POC ARTERIAL BLOOD GAS PH (test code = POCPHA) 7.381 7.35-7. 45 N POC ARTERIAL BLOOD GAS PCO2 (test code = KIWARJ4M) 38.2 mmHg 35. 0-45 N POC TCO2 ARTERIAL (test code = POCTCO2) 23.8 POC ARTERIAL BLOOD GAS PO2 (test code = JKLWL0A) 204.7 mmHg 80-10 0.0 HH POC HCO3 ARTERIAL (test code = VPWTGZ4S) 22.6 MMOL/L 22.0-26.0 N POC BASE EXCESS (test code = POCBEA) -2.2 MMOL/L -4.0-4.0 N POC O2 SATURATION (test code = POCO2S) 99.7 % 90-100 N [id number] 09:38:00* Test Item Value Reference Range Interpretation Comments SODIUM (test code = NA/ABG) 138 MEQ/L 134-147 N [id number] 09:38:00* Test Item Value Reference Range Interpretation Comments POTASSIUM (test code = K/ABG) 4.1 MEQ/L 3.4-5.0 N [id number] 09:38:00* Test Item Value Reference Range Interpretation Comments CHLORIDE (test code = CL/ABG) MEQ/L 100-108 CREATININE [id number] 09:38:00* Test Item Value Reference Range Interpretation Comments CREATININE ABG (test code = CREAABG) mg/dL 0.8-1.3 [id number] 09:38:00* Test Item Value Reference Range Interpretation Comments HEMOGLOBIN (test code = HGB/ABG) G/DL 12.5-16.9 [id number] 09:38:00* Test Item Value Reference Range Interpretation Comments HEMATOCRIT (test code = HCT/ABG) % 37.5-50.7 POC IONIZED [id number] 09:38:00* Test Item Value Reference Range Interpretation Comments POC IONIZED CALCIUM (test code = POCCA) MMOL/L 1.12-1.32 POC [id number] 09:38:00* Test Item Value Reference Range Interpretation Comments POC GLUCOSE (test code = POCGLU) MG/DL 70-110 POC ARTERIAL BLOOD [id number] 09:38:00* Test Item Value Reference Range Interpretation Comments POC ARTERIAL BLOOD GAS PH (test code = POCPHA) 7.381 7.35-7. 45 N POC ARTERIAL BLOOD GAS PCO2 (test code = OGVGDV3Z) 38.2 mmHg 35. 0-45 N POC TCO2 ARTERIAL (test code = POCTCO2) 23.8 POC ARTERIAL BLOOD GAS PO2 (test code = KRPLS0J) 204.7 mmHg 80-10 0.0 HH POC HCO3 ARTERIAL (test code = FCJPOR9E) 22.6 MMOL/L 22.0-26.0 N POC BASE EXCESS (test code = POCBEA) -2.2 MMOL/L -4.0-4.0 N POC O2 SATURATION (test code = POCO2S) 99.7 % 90-100 N [id number] 09:38:00* Test Item Value Reference Range Interpretation Comments SODIUM (test code = NA/ABG) 138 MEQ/L 134-147 N [id number] 09:38:00* Test Item Value Reference Range Interpretation Comments POTASSIUM (test code = K/ABG) 4.1 MEQ/L 3.4-5.0 N [id number] 09:38:00* Test Item Value Reference Range Interpretation Comments CHLORIDE (test code = CL/ABG) MEQ/L 100-108 CREATININE [id number] 09:38:00* Test Item Value Reference Range Interpretation Comments CREATININE ABG (test code = CREAABG) mg/dL 0.8-1.3 [id number] 09:38:00* Test Item Value Reference Range Interpretation Comments HEMOGLOBIN (test code = HGB/ABG) G/DL 12.5-16.9 [id number] 09:38:00* Test Item Value Reference Range Interpretation Comments HEMATOCRIT (test code = HCT/ABG) % 37.5-50.7 POC IONIZED [id number] 09:38:00* Test Item Value Reference Range Interpretation Comments POC IONIZED CALCIUM (test code = POCCA) 1.21 MMOL/L 1.12-1.32 N POC [id number] 09:38:00* Test Item Value Reference Range Interpretation Comments POC GLUCOSE (test code = POCGLU) MG/DL 70-110 POC ARTERIAL BLOOD [id number] 09:38:00* Test Item Value Reference Range Interpretation Comments POC ARTERIAL BLOOD GAS PH (test code = POCPHA) 7.381 7.35-7. 45 N POC ARTERIAL BLOOD GAS PCO2 (test code = NWVSUW9A) 38.2 mmHg 35. 0-45 N POC TCO2 ARTERIAL (test code = POCTCO2) 23.8 POC ARTERIAL BLOOD GAS PO2 (test code = VUBRI7J) 204.7 mmHg 80-10 0.0 HH POC HCO3 ARTERIAL (test code = BBZBQX2W) 22.6 MMOL/L 22.0-26.0 N POC BASE EXCESS (test code = POCBEA) -2.2 MMOL/L -4.0-4.0 N POC O2 SATURATION (test code = POCO2S) 99.7 % 90-100 N [id number] 09:38:00* Test Item Value Reference Range Interpretation Comments SODIUM (test code = NA/ABG) 138 MEQ/L 134-147 N [id number] 09:38:00* Test Item Value Reference Range Interpretation Comments POTASSIUM (test code = K/ABG) 4.1 MEQ/L 3.4-5.0 N [id number] 09:38:00* Test Item Value Reference Range Interpretation Comments CHLORIDE (test code = CL/ABG) MEQ/L 100-108 CREATININE [id number] 09:38:00* Test Item Value Reference Range Interpretation Comments CREATININE ABG (test code = CREAABG) mg/dL 0.8-1.3 [id number] 09:38:00* Test Item Value Reference Range Interpretation Comments HEMOGLOBIN (test code = HGB/ABG) G/DL 12.5-16.9 [id number] 09:38:00* Test Item Value Reference Range Interpretation Comments HEMATOCRIT (test code = HCT/ABG) % 37.5-50.7 POC IONIZED [id number] 09:38:00* Test Item Value Reference Range Interpretation Comments POC IONIZED CALCIUM (test code = POCCA) 1.21 MMOL/L 1.12-1.32 N POC [id number] 09:38:00* Test Item Value Reference Range Interpretation Comments POC GLUCOSE (test code = POCGLU) 182 MG/DL 70-110 H POC ARTERIAL BLOOD [id number] 09:38:00* Test Item Value Reference Range Interpretation Comments POC ARTERIAL BLOOD GAS PH (test code = POCPHA) 7.381 7.35-7. 45 N POC ARTERIAL BLOOD GAS PCO2 (test code = DOBECP1J) 38.2 mmHg 35. 0-45 N POC TCO2 ARTERIAL (test code = POCTCO2) 23.8 POC ARTERIAL BLOOD GAS PO2 (test code = ICYEX7Y) 204.7 mmHg 80-10 0.0 HH POC HCO3 ARTERIAL (test code = DSGJPU8G) 22.6 MMOL/L 22.0-26.0 N POC BASE EXCESS (test code = POCBEA) -2.2 MMOL/L -4.0-4.0 N POC O2 SATURATION (test code = POCO2S) 99.7 % 90-100 N [id number] 09:38:00* Test Item Value Reference Range Interpretation Comments SODIUM (test code = NA/ABG) 138 MEQ/L 134-147 N [id number] 09:38:00* Test Item Value Reference Range Interpretation Comments POTASSIUM (test code = K/ABG) 4.1 MEQ/L 3.4-5.0 N [id number] 09:38:00* Test Item Value Reference Range Interpretation Comments CHLORIDE (test code = CL/ABG) MEQ/L 100-108 CREATININE [id number] 09:38:00* Test Item Value Reference Range Interpretation Comments CREATININE ABG (test code = CREAABG) mg/dL 0.8-1.3 [id number] 09:38:00* Test Item Value Reference Range Interpretation Comments HEMOGLOBIN (test code = HGB/ABG) G/DL 12.5-16.9 [id number] 09:38:00* Test Item Value Reference Range Interpretation Comments HEMATOCRIT (test code = HCT/ABG) 31 % 37.5-50.7 L POC IONIZED [id number] 09:38:00* Test Item Value Reference Range Interpretation Comments POC IONIZED CALCIUM (test code = POCCA) 1.21 MMOL/L 1.12-1.32 N POC [id number] 09:38:00* Test Item Value Reference Range Interpretation Comments POC GLUCOSE (test code = POCGLU) 182 MG/DL 70-110 H POC ARTERIAL BLOOD [id number] 09:38:00* Test Item Value Reference Range Interpretation Comments POC ARTERIAL BLOOD GAS PH (test code = POCPHA) 7.381 7.35-7. 45 N POC ARTERIAL BLOOD GAS PCO2 (test code = PFVLTV8T) 38.2 mmHg 35. 0-45 N POC TCO2 ARTERIAL (test code = POCTCO2) 23.8 POC ARTERIAL BLOOD GAS PO2 (test code = ZLHCK8J) 204.7 mmHg 80-10 0.0 HH POC HCO3 ARTERIAL (test code = ENTQDL0Q) 22.6 MMOL/L 22.0-26.0 N POC BASE EXCESS (test code = POCBEA) -2.2 MMOL/L -4.0-4.0 N POC O2 SATURATION (test code = POCO2S) 99.7 % 90-100 N [id number] 09:38:00* Test Item Value Reference Range Interpretation Comments SODIUM (test code = NA/ABG) 138 MEQ/L 134-147 N [id number] 09:38:00* Test Item Value Reference Range Interpretation Comments POTASSIUM (test code = K/ABG) 4.1 MEQ/L 3.4-5.0 N [id number] 09:38:00* Test Item Value Reference Range Interpretation Comments CHLORIDE (test code = CL/ABG) MEQ/L 100-108 CREATININE [id number] 09:38:00* Test Item Value Reference Range Interpretation Comments CREATININE ABG (test code = CREAABG) mg/dL 0.8-1.3 [id number] 09:38:00* Test Item Value Reference Range Interpretation Comments HEMOGLOBIN (test code = HGB/ABG) 10.6 G/DL 12.5-16.9 L [id number] 09:38:00* Test Item Value Reference Range Interpretation Comments HEMATOCRIT (test code = HCT/ABG) 31 % 37.5-50.7 L POC IONIZED [id number] 09:38:00* Test Item Value Reference Range Interpretation Comments POC IONIZED CALCIUM (test code = POCCA) 1.21 MMOL/L 1.12-1.32 N POC [id number] 09:38:00* Test Item Value Reference Range Interpretation Comments POC GLUCOSE (test code = POCGLU) 182 MG/DL 70-110 H POC ARTERIAL BLOOD [id number] 09:38:00* Test Item Value Reference Range Interpretation Comments POC ARTERIAL BLOOD GAS PH (test code = POCPHA) 7.381 7.35-7. 45 N POC ARTERIAL BLOOD GAS PCO2 (test code = HIFOTO7T) 38.2 mmHg 35. 0-45 N POC TCO2 ARTERIAL (test code = POCTCO2) 23.8 POC ARTERIAL BLOOD GAS PO2 (test code = EJEFO7S) 204.7 mmHg 80-10 0.0 HH POC HCO3 ARTERIAL (test code = TGRROL0W) 22.6 MMOL/L 22.0-26.0 N POC BASE EXCESS (test code = POCBEA) -2.2 MMOL/L -4.0-4.0 N POC O2 SATURATION (test code = POCO2S) 99.7 % 90-100 N [id number] 09:38:00* Test Item Value Reference Range Interpretation Comments SODIUM (test code = NA/ABG) 138 MEQ/L 134-147 N [id number] 09:38:00* Test Item Value Reference Range Interpretation Comments POTASSIUM (test code = K/ABG) 4.1 MEQ/L 3.4-5.0 N [id number] 09:38:00* Test Item Value Reference Range Interpretation Comments CHLORIDE (test code = CL/ABG) 109 MEQ/L 100-108 H CREATININE [id number] 09:38:00* Test Item Value Reference Range Interpretation Comments CREATININE ABG (test code = CREAABG) mg/dL 0.8-1.3 [id number] 09:38:00* Test Item Value Reference Range Interpretation Comments HEMOGLOBIN (test code = HGB/ABG) 10.6 G/DL 12.5-16.9 L [id number] 09:38:00* Test Item Value Reference Range Interpretation Comments HEMATOCRIT (test code = HCT/ABG) 31 % 37.5-50.7 L POC IONIZED [id number] 09:38:00* Test Item Value Reference Range Interpretation Comments POC IONIZED CALCIUM (test code = POCCA) 1.21 MMOL/L 1.12-1.32 N POC [id number] 09:38:00* Test Item Value Reference Range Interpretation Comments POC GLUCOSE (test code = POCGLU) 182 MG/DL 70-110 H POC ARTERIAL BLOOD [id number] 09:38:00* Test Item Value Reference Range Interpretation Comments POC ARTERIAL BLOOD GAS PH (test code = POCPHA) 7.381 7.35-7. 45 N POC ARTERIAL BLOOD GAS PCO2 (test code = FOFNAF5A) 38.2 mmHg 35. 0-45 N POC TCO2 ARTERIAL (test code = POCTCO2) 23.8 POC ARTERIAL BLOOD GAS PO2 (test code = YJVPX3A) 204.7 mmHg 80-10 0.0 HH POC HCO3 ARTERIAL (test code = DMCFTW7T) 22.6 MMOL/L 22.0-26.0 N POC BASE EXCESS (test code = POCBEA) -2.2 MMOL/L -4.0-4.0 N POC O2 SATURATION (test code = POCO2S) 99.7 % 90-100 N [id number] 09:38:00* Test Item Value Reference Range Interpretation Comments SODIUM (test code = NA/ABG) 138 MEQ/L 134-147 N [id number] 09:38:00* Test Item Value Reference Range Interpretation Comments POTASSIUM (test code = K/ABG) 4.1 MEQ/L 3.4-5.0 N [id number] 09:38:00* Test Item Value Reference Range Interpretation Comments CHLORIDE (test code = CL/ABG) 109 MEQ/L 100-108 H CREATININE [id number] 09:38:00* Test Item Value Reference Range Interpretation Comments CREATININE ABG (test code = CREAABG) 0.9 mg/dL 0.8-1.3 [id number] 09:38:00* Test Item Value Reference Range Interpretation Comments HEMOGLOBIN (test code = HGB/ABG) 10.6 G/DL 12.5-16.9 L [id number] 09:38:00* Test Item Value Reference Range Interpretation Comments HEMATOCRIT (test code = HCT/ABG) 31 % 37.5-50.7 L POC IONIZED [id number] 09:38:00* Test Item Value Reference Range Interpretation Comments POC IONIZED CALCIUM (test code = POCCA) 1.21 MMOL/L 1.12-1.32 N POC [id number] 09:38:00* Test Item Value Reference Range Interpretation Comments POC GLUCOSE (test code = POCGLU) 182 MG/DL 70-110 H BASIC METABOLIC [id number] 07:12:00* Test Item Value Reference Range Interpretation [...] = LDL) 73 mg/dL 0-100 N <100 [id number] NEAR OPTIMAL/ABOVE [id number] RWZCAHMNPC314-110 HIGH>ZV=852 VERY HIGH*Guidelines provided by the National Cholesterol EducationProgram Adult Treatment Panel III POC ARTERIAL BLOOD [id number] 07:07:00* Test Item Value Reference Range Interpretation Comments POC ARTERIAL BLOOD GAS PH (test code = POCPHA) 7.365 7.35-7. 45 N POC ARTERIAL BLOOD GAS PCO2 (test code = ORYQSB9Q) 47.5 mmHg 35. 0-45 H POC TCO2 ARTERIAL (test code = POCTCO2) 28.6 POC ARTERIAL BLOOD GAS PO2 (test code = DASHH0Q) 90.0 mmHg 80-10 0.0 N POC HCO3 ARTERIAL (test code = CBOGXX0E) 27.2 MMOL/L 22.0-26.0 H POC BASE EXCESS (test code = POCBEA) 1.2 MMOL/L -4.0-4.0 N POC O2 SATURATION (test code = POCO2S) 96.5 % 90-100 N [id number] 07:07:00* Test Item Value Reference Range Interpretation Comments SODIUM (test code = NA/ABG) MEQ/L 134-147 [id number] 07:07:00* Test Item Value Reference Range Interpretation Comments POTASSIUM (test code = K/ABG) MEQ/L 3.4-5.0 [id number] 07:07:00* Test Item Value Reference Range Interpretation Comments CHLORIDE (test code = CL/ABG) MEQ/L 100-108 CREATININE [id number] 07:07:00* Test Item Value Reference Range Interpretation Comments CREATININE ABG (test code = CREAABG) mg/dL 0.8-1.3 [id number] 07:07:00* Test Item Value Reference Range Interpretation Comments HEMOGLOBIN (test code = HGB/ABG) G/DL 12.5-16.9 [id number] 07:07:00* Test Item Value Reference Range Interpretation Comments HEMATOCRIT (test code = HCT/ABG) % 37.5-50.7 POC IONIZED [id number] 07:07:00* Test Item Value Reference Range Interpretation Comments POC IONIZED CALCIUM (test code = POCCA) MMOL/L 1.12-1.32 POC [id number] 07:07:00* Test Item Value Reference Range Interpretation Comments POC GLUCOSE (test code = POCGLU) MG/DL 70-110 POC ARTERIAL BLOOD [id number] 07:07:00* Test Item Value Reference Range Interpretation Comments POC ARTERIAL BLOOD GAS PH (test code = POCPHA) 7.365 7.35-7. 45 N POC ARTERIAL BLOOD GAS PCO2 (test code = QISELG6Q) 47.5 mmHg 35. 0-45 H POC TCO2 ARTERIAL (test code = POCTCO2) 28.6 POC ARTERIAL BLOOD GAS PO2 (test code = ODEQQ6I) 90.0 mmHg 80-10 0.0 N POC HCO3 ARTERIAL (test code = BGJWGI3E) 27.2 MMOL/L 22.0-26.0 H POC BASE EXCESS (test code = POCBEA) 1.2 MMOL/L -4.0-4.0 N POC O2 SATURATION (test code = POCO2S) 96.5 % 90-100 N [id number] 07:07:00* Test Item Value Reference Range Interpretation Comments SODIUM (test code = NA/ABG) 137 MEQ/L 134-147 N [id number] 07:07:00* Test Item Value Reference Range Interpretation Comments POTASSIUM (test code = K/ABG) MEQ/L 3.4-5.0 [id number] 07:07:00* Test Item Value Reference Range Interpretation Comments CHLORIDE (test code = CL/ABG) MEQ/L 100-108 CREATININE [id number] 07:07:00* Test Item Value Reference Range Interpretation Comments CREATININE ABG (test code = CREAABG) mg/dL 0.8-1.3 [id number] 07:07:00* Test Item Value Reference Range Interpretation Comments HEMOGLOBIN (test code = HGB/ABG) G/DL 12.5-16.9 [id number] 07:07:00* Test Item Value Reference Range Interpretation Comments HEMATOCRIT (test code = HCT/ABG) % 37.5-50.7 POC IONIZED [id number] 07:07:00* Test Item Value Reference Range Interpretation Comments POC IONIZED CALCIUM (test code = POCCA) MMOL/L 1.12-1.32 POC [id number] 07:07:00* Test Item Value Reference Range Interpretation Comments POC GLUCOSE (test code = POCGLU) MG/DL 70-110 POC ARTERIAL BLOOD [id number] 07:07:00* Test Item Value Reference Range Interpretation Comments POC ARTERIAL BLOOD GAS PH (test code = POCPHA) 7.365 7.35-7. 45 N POC ARTERIAL BLOOD GAS PCO2 (test code = EEXWWZ1F) 47.5 mmHg 35. 0-45 H POC TCO2 ARTERIAL (test code = POCTCO2) 28.6 POC ARTERIAL BLOOD GAS PO2 (test code = FXMPA7Q) 90.0 mmHg 80-10 0.0 N POC HCO3 ARTERIAL (test code = JLEJTO3L) 27.2 MMOL/L 22.0-26.0 H POC BASE EXCESS (test code = POCBEA) 1.2 MMOL/L -4.0-4.0 N POC O2 SATURATION (test code = POCO2S) 96.5 % 90-100 N [id number] 07:07:00* Test Item Value Reference Range Interpretation Comments SODIUM (test code = NA/ABG) 137 MEQ/L 134-147 N [id number] 07:07:00* Test Item Value Reference Range Interpretation Comments POTASSIUM (test code = K/ABG) 4.5 MEQ/L 3.4-5.0 N [id number] 07:07:00* Test Item Value Reference Range Interpretation Comments CHLORIDE (test code = CL/ABG) MEQ/L 100-108 CREATININE [id number] 07:07:00* Test Item Value Reference Range Interpretation Comments CREATININE ABG (test code = CREAABG) mg/dL 0.8-1.3 [id number] 07:07:00* Test Item Value Reference Range Interpretation Comments HEMOGLOBIN (test code = HGB/ABG) G/DL 12.5-16.9 [id number] 07:07:00* Test Item Value Reference Range Interpretation Comments HEMATOCRIT (test code = HCT/ABG) % 37.5-50.7 POC IONIZED [id number] 07:07:00* Test Item Value Reference Range Interpretation Comments POC IONIZED CALCIUM (test code = POCCA) MMOL/L 1.12-1.32 POC [id number] 07:07:00* Test Item Value Reference Range Interpretation Comments POC GLUCOSE (test code = POCGLU) MG/DL 70-110 POC ARTERIAL BLOOD [id number] 07:07:00* Test Item Value Reference Range Interpretation Comments POC ARTERIAL BLOOD GAS PH (test code = POCPHA) 7.365 7.35-7. 45 N POC ARTERIAL BLOOD GAS PCO2 (test code = KIDJSO6L) 47.5 mmHg 35. 0-45 H POC TCO2 ARTERIAL (test code = POCTCO2) 28.6 POC ARTERIAL BLOOD GAS PO2 (test code = GBTBN0E) 90.0 mmHg 80-10 0.0 N POC HCO3 ARTERIAL (test code = FDRNHL4I) 27.2 MMOL/L 22.0-26.0 H POC BASE EXCESS (test code = POCBEA) 1.2 MMOL/L -4.0-4.0 N POC O2 SATURATION (test code = POCO2S) 96.5 % 90-100 N [id number] 07:07:00* Test Item Value Reference Range Interpretation Comments SODIUM (test code = NA/ABG) 137 MEQ/L 134-147 N [id number] 07:07:00* Test Item Value Reference Range Interpretation Comments POTASSIUM (test code = K/ABG) 4.5 MEQ/L 3.4-5.0 N [id number] 07:07:00* Test Item Value Reference Range Interpretation Comments CHLORIDE (test code = CL/ABG) MEQ/L 100-108 CREATININE [id number] 07:07:00* Test Item Value Reference Range Interpretation Comments CREATININE ABG (test code = CREAABG) mg/dL 0.8-1.3 [id number] 07:07:00* Test Item Value Reference Range Interpretation Comments HEMOGLOBIN (test code = HGB/ABG) G/DL 12.5-16.9 [id number] 07:07:00* Test Item Value Reference Range Interpretation Comments HEMATOCRIT (test code = HCT/ABG) % 37.5-50.7 POC IONIZED [id number] 07:07:00* Test Item Value Reference Range Interpretation Comments POC IONIZED CALCIUM (test code = POCCA) 1.23 MMOL/L 1.12-1.32 N POC [id number] 07:07:00* Test Item Value Reference Range Interpretation Comments POC GLUCOSE (test code = POCGLU) MG/DL 70-110 POC ARTERIAL BLOOD [id number] 07:07:00* Test Item Value Reference Range Interpretation Comments POC ARTERIAL BLOOD GAS PH (test code = POCPHA) 7.365 7.35-7. 45 N POC ARTERIAL BLOOD GAS PCO2 (test code = GEBQYM9S) 47.5 mmHg 35. 0-45 H POC TCO2 ARTERIAL (test code = POCTCO2) 28.6 POC ARTERIAL BLOOD GAS PO2 (test code = APCLV5D) 90.0 mmHg 80-10 0.0 N POC HCO3 ARTERIAL (test code = JNTHCN1L) 27.2 MMOL/L 22.0-26.0 H POC BASE EXCESS (test code = POCBEA) 1.2 MMOL/L -4.0-4.0 N POC O2 SATURATION (test code = POCO2S) 96.5 % 90-100 N [id number] 07:07:00* Test Item Value Reference Range Interpretation Comments SODIUM (test code = NA/ABG) 137 MEQ/L 134-147 N [id number] 07:07:00* Test Item Value Reference Range Interpretation Comments POTASSIUM (test code = K/ABG) 4.5 MEQ/L 3.4-5.0 N [id number] 07:07:00* Test Item Value Reference Range Interpretation Comments CHLORIDE (test code = CL/ABG) MEQ/L 100-108 CREATININE [id number] 07:07:00* Test Item Value Reference Range Interpretation Comments CREATININE ABG (test code = CREAABG) mg/dL 0.8-1.3 [id number] 07:07:00* Test Item Value Reference Range Interpretation Comments HEMOGLOBIN (test code = HGB/ABG) G/DL 12.5-16.9 [id number] 07:07:00* Test Item Value Reference Range Interpretation Comments HEMATOCRIT (test code = HCT/ABG) % 37.5-50.7 POC IONIZED [id number] 07:07:00* Test Item Value Reference Range Interpretation Comments POC IONIZED CALCIUM (test code = POCCA) 1.23 MMOL/L 1.12-1.32 N POC [id number] 07:07:00* Test Item Value Reference Range Interpretation Comments POC GLUCOSE (test code = POCGLU) 170 MG/DL 70-110 H POC ARTERIAL BLOOD [id number] 07:07:00* Test Item Value Reference Range Interpretation Comments POC ARTERIAL BLOOD GAS PH (test code = POCPHA) 7.365 7.35-7. 45 N POC ARTERIAL BLOOD GAS PCO2 (test code = CLMEEP0J) 47.5 mmHg 35. 0-45 H POC TCO2 ARTERIAL (test code = POCTCO2) 28.6 POC ARTERIAL BLOOD GAS PO2 (test code = XISLX7W) 90.0 mmHg 80-10 0.0 N POC HCO3 ARTERIAL (test code = ESBEFL4S) 27.2 MMOL/L 22.0-26.0 H POC BASE EXCESS (test code = POCBEA) 1.2 MMOL/L -4.0-4.0 N POC O2 SATURATION (test code = POCO2S) 96.5 % 90-100 N [id number] 07:07:00* Test Item Value Reference Range Interpretation Comments SODIUM (test code = NA/ABG) 137 MEQ/L 134-147 N [id number] 07:07:00* Test Item Value Reference Range Interpretation Comments POTASSIUM (test code = K/ABG) 4.5 MEQ/L 3.4-5.0 N [id number] 07:07:00* Test Item Value Reference Range Interpretation Comments CHLORIDE (test code = CL/ABG) MEQ/L 100-108 CREATININE [id number] 07:07:00* Test Item Value Reference Range Interpretation Comments CREATININE ABG (test code = CREAABG) mg/dL 0.8-1.3 [id number] 07:07:00* Test Item Value Reference Range Interpretation Comments HEMOGLOBIN (test code = HGB/ABG) G/DL 12.5-16.9 [id number] 07:07:00* Test Item Value Reference Range Interpretation Comments HEMATOCRIT (test code = HCT/ABG) 36 % 37.5-50.7 L POC IONIZED [id number] 07:07:00* Test Item Value Reference Range Interpretation Comments POC IONIZED CALCIUM (test code = POCCA) 1.23 MMOL/L 1.12-1.32 N POC [id number] 07:07:00* Test Item Value Reference Range Interpretation Comments POC GLUCOSE (test code = POCGLU) 170 MG/DL 70-110 H POC ARTERIAL BLOOD [id number] 07:07:00* Test Item Value Reference Range Interpretation Comments POC ARTERIAL BLOOD GAS PH (test code = POCPHA) 7.365 7.35-7. 45 N POC ARTERIAL BLOOD GAS PCO2 (test code = MESMHB5L) 47.5 mmHg 35. 0-45 H POC TCO2 ARTERIAL (test code = POCTCO2) 28.6 POC ARTERIAL BLOOD GAS PO2 (test code = DIWFU4I) 90.0 mmHg 80-10 0.0 N POC HCO3 ARTERIAL (test code = QQHNEU0V) 27.2 MMOL/L 22.0-26.0 H POC BASE EXCESS (test code = POCBEA) 1.2 MMOL/L -4.0-4.0 N POC O2 SATURATION (test code = POCO2S) 96.5 % 90-100 N [id number] 07:07:00* Test Item Value Reference Range Interpretation Comments SODIUM (test code = NA/ABG) 137 MEQ/L 134-147 N [id number] 07:07:00* Test Item Value Reference Range Interpretation Comments POTASSIUM (test code = K/ABG) 4.5 MEQ/L 3.4-5.0 N [id number] 07:07:00* Test Item Value Reference Range Interpretation Comments CHLORIDE (test code = CL/ABG) MEQ/L 100-108 CREATININE [id number] 07:07:00* Test Item Value Reference Range Interpretation Comments CREATININE ABG (test code = CREAABG) mg/dL 0.8-1.3 [id number] 07:07:00* Test Item Value Reference Range Interpretation Comments HEMOGLOBIN (test code = HGB/ABG) 12.2 G/DL 12.5-16.9 L [id number] 07:07:00* Test Item Value Reference Range Interpretation Comments HEMATOCRIT (test code = HCT/ABG) 36 % 37.5-50.7 L POC IONIZED [id number] 07:07:00* Test Item Value Reference Range Interpretation Comments POC IONIZED CALCIUM (test code = POCCA) 1.23 MMOL/L 1.12-1.32 N POC [id number] 07:07:00* Test Item Value Reference Range Interpretation Comments POC GLUCOSE (test code = POCGLU) 170 MG/DL 70-110 H POC ARTERIAL BLOOD [id number] 07:07:00* Test Item Value Reference Range Interpretation Comments POC ARTERIAL BLOOD GAS PH (test code = POCPHA) 7.365 7.35-7. 45 N POC ARTERIAL BLOOD GAS PCO2 (test code = UQUSYJ4Y) 47.5 mmHg 35. 0-45 H POC TCO2 ARTERIAL (test code = POCTCO2) 28.6 POC ARTERIAL BLOOD GAS PO2 (test code = MHDAN0K) 90.0 mmHg 80-10 0.0 N POC HCO3 ARTERIAL (test code = RFUDMX9Z) 27.2 MMOL/L 22.0-26.0 H POC BASE EXCESS (test code = POCBEA) 1.2 MMOL/L -4.0-4.0 N POC O2 SATURATION (test code = POCO2S) 96.5 % 90-100 N [id number] 07:07:00* Test Item Value Reference Range Interpretation Comments SODIUM (test code = NA/ABG) 137 MEQ/L 134-147 N [id number] 07:07:00* Test Item Value Reference Range Interpretation Comments POTASSIUM (test code = K/ABG) 4.5 MEQ/L 3.4-5.0 N [id number] 07:07:00* Test Item Value Reference Range Interpretation Comments CHLORIDE (test code = CL/ABG) 103 MEQ/L 100-108 N CREATININE [id number] 07:07:00* Test Item Value Reference Range Interpretation Comments CREATININE ABG (test code = CREAABG) mg/dL 0.8-1.3 [id number] 07:07:00* Test Item Value Reference Range Interpretation Comments HEMOGLOBIN (test code = HGB/ABG) 12.2 G/DL 12.5-16.9 L [id number] 07:07:00* Test Item Value Reference Range Interpretation Comments HEMATOCRIT (test code = HCT/ABG) 36 % 37.5-50.7 L POC IONIZED [id number] 07:07:00* Test Item Value Reference Range Interpretation Comments POC IONIZED CALCIUM (test code = POCCA) 1.23 MMOL/L 1.12-1.32 N POC [id number] 07:07:00* Test Item Value Reference Range Interpretation Comments POC GLUCOSE (test code = POCGLU) 170 MG/DL 70-110 H POC ARTERIAL BLOOD [id number] 07:07:00* Test Item Value Reference Range Interpretation Comments POC ARTERIAL BLOOD GAS PH (test code = POCPHA) 7.365 7.35-7. 45 N POC ARTERIAL BLOOD GAS PCO2 (test code = DCWTCW1W) 47.5 mmHg 35. 0-45 H POC TCO2 ARTERIAL (test code = POCTCO2) 28.6 POC ARTERIAL BLOOD GAS PO2 (test code = DQERY7P) 90.0 mmHg 80-10 0.0 N POC HCO3 ARTERIAL (test code = XCSGXU4S) 27.2 MMOL/L 22.0-26.0 H POC BASE EXCESS (test code = POCBEA) 1.2 MMOL/L -4.0-4.0 N POC O2 SATURATION (test code = POCO2S) 96.5 % 90-100 N [id number] 07:07:00* Test Item Value Reference Range Interpretation Comments SODIUM (test code = NA/ABG) 137 MEQ/L 134-147 N [id number] 07:07:00* Test Item Value Reference Range Interpretation Comments POTASSIUM (test code = K/ABG) 4.5 MEQ/L 3.4-5.0 N [id number] 07:07:00* Test Item Value Reference Range Interpretation Comments CHLORIDE (test code = CL/ABG) 103 MEQ/L 100-108 N CREATININE [id number] 07:07:00* Test Item Value Reference Range Interpretation Comments CREATININE ABG (test code = CREAABG) 1.2 mg/dL 0.8-1.3 N [id number] 07:07:00* Test Item Value Reference Range Interpretation Comments HEMOGLOBIN (test code = HGB/ABG) 12.2 G/DL 12.5-16.9 L [id number] 07:07:00* Test Item Value Reference Range Interpretation Comments HEMATOCRIT (test code = HCT/ABG) 36 % 37.5-50.7 L POC IONIZED [id number] 07:07:00* Test Item Value Reference Range Interpretation Comments POC IONIZED CALCIUM (test code = POCCA) 1.23 MMOL/L 1.12-1.32 N POC [id number] 07:07:00* Test Item Value Reference Range Interpretation Comments POC GLUCOSE (test code = POCGLU) 170 MG/DL 70-110 H [id number] 05:54:00* Test Item Value Reference Range Interpretation Comments GLUBED (test code = GLUBED) 128 MG/DL 70-110 H Performed by certified vacuum furnace operator at [facility] THROMBOPLASTIN TIME [id number] 05:39:00* Test Item Value Reference Range Interpretation Comments THROMBOPLASTIN TIME PARTIAL (test code = PTT) 56.3 Seconds 25.0-39. 5 H Therapeutic Range: 61.8-83.8 Sec Effective 08/27/2013 CBC W/AUTO [id number] 05:35:00* Test Item Value Reference Range Interpretation [...] = MDIFF) NO COMMENTS: Daily while on [id number] 21:10:00* Test Item Value Reference Range Interpretation Comments GLUBED (test code = GLUBED) 217 MG/DL 70-110 H Performed by certified vacuum furnace operator at [facility] [id number] 17:17:00* Test Item Value Reference Range Interpretation Comments GLUBED (test code = GLUBED) 211 MG/DL 70-110 H Performed by certified vacuum furnace operator at [facility] [id number] 13:52:00* Test Item Value Reference Range Interpretation Comments GLUBED (test code = GLUBED) 193 MG/DL 70-110 H Performed by certified vacuum furnace operator at [facility] - CT HEAD/BRAIN W/O [id number] 20:36:00 Name: TORI GREGORY [facility] : 1945 Age/S: 68 / M [address] Unit #: [id number] Loc: [place] [address] Phys: Nayeli Thomson MD Acct: [id number] Dis Date: Status: UNK PHONE #: [phone] Exam Date: 10/01/20142025 FAX #: [phone] Reason: dizziness EXAMS: CPT CODE: [id number] CT HEAD/BRAIN W/O CONT 62543 REASON FOR EXAM: dizziness EXAM ORDER DATE: 10/01/2014 7:57 PM Ordering M.Harley: Nayeli Thomson MD PROCEDURE: - CT HEAD/BRAIN [...] BLANCO, RT(R) CT CTDI: 73 DLP: 1261 Trnscb Date/Time: 10/01/2014 (2035) Vineet Orig Print D/T: S: 10/01/2014 (2038) CTDI: 73 DLP: 1261 PAGE 1 Signed Report - XR CHEST 1 [id number] 20:22:00 FAX: Nayeli Boggs [phone] Smith: St: K Name: TORI SOMERS [facility] : [birth year] Age/S: 68/M [address] [facility] Unit #: [id number] Loc: [place] [address] Phys: Nayeli Thomson Acct: [id number] Dis Date: Status: K PHONE #: [phone] Exam Date: 10/01/20142017 FAX #: [phone] Reason: dizziness EXAMS: CPT CODE: [id number] XR CHEST 1 V 79173 REASON FOR EXAM: dizziness EXAM ORDER DATE: [...] Trnric Da te/Time/By: 10/01/2014 (2021) : By: Vineet Orig Print D/T: S: 10/01 (2024) PAGE 1 Signed Report - XR RIBS UNI W/CXR 3+V [id number] 19:50:00 FAX: Rex Noland MD [phone] Smith: St: [facility] FAX: Jama John [facility] [phone] Name: TORI GREGORY [facility] : 1945 Age/S: 65/M [address] [facility] Unit #: [id number] Loc: [facility] [place] [address] Phys: Masoud Dodson MD Acct: [id number] Dis Date: Status: UNK PHONE #: [phone] Exam Date: 08/27/2011 1253 FAX #: [phone] Reason: left mid-rib pain s/p fall EXAMS: CPT CODE: [id number] XR RIBS UNI W/CXR 3+[place] [address] HISTORY: Left rib pain post fall trauma. TECHNIQUE : 1. PA chest one view. 2. Left RIBS 3 views. FINDINGS : There is a displaced fracture in the posterolateral left sixth rib. Ther e is bibasal atelectasis. There is no pneumothorax or pleural effusion. Th e heart is mildly enlarged. Degenerative changes are present in the spine. IMPRESSION: 1. Fractured left sixth rib. 2. Mil d cardiomegaly. Electronically Signed by Jin Ansari on 012 at 1950 Reported and signed by: William Ansari M.D. CC: Rex Christianson MD; Jama Ramirez [facility] Technologist: No Quispe Trnscrd Radha ate/Time/By: 08/27/2011 (1949) : By: [email or web address] Orig Print D/T: S: 07/31 (1953) PAGE 1 Signed Repor sobia
[2020-06-11 20:02] LABS: ALBUMIN/GLOBULIN RATIO 0.9 (0.8-2.0); ANION GAP 14.5 mmol/L (8-16); CALCIUM 8.8 mg/dL (8.4-10.2); CREATININE, SERUM 1.35 mg/dL (0.72-1.25); POTASSIUM 4.5 mmol/L (3.5-5.1)
[2020-06-11 20:07] LABS: B-TYPE NATRIURETIC PEPTIDE2 92.5 pg/mL (0-100)
[2020-06-11] MEDS ORDERED: SODIUM CHLORIDE 0.9% 1000ML 1,000 ML IV ONE ×2 (21:15→21:45)
--- OUTSIDE RECORDS SUMMARY | 2020-06-11 21:22 | XMS REPORT | Continuity of Care Document ---
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
--- OUTSIDE RECORDS SUMMARY | 2020-06-11 21:25 | XMS REPORT | Continuity of Care Document ---
Author Author [facility] t Organization [facility] Address [address] [place] [address] Phone Unavailable Care Team Providers Care Loom Doffer Name Role Phone SMITH PAULA, MD MARIE PCP FUENTES KENNY Attphys Unavailable SMITH, AKI Attphys Unavailable HAMPEL, BERTIN Attphys Unavailable SMITH, AKI Admphys Unavailable Payers Payer Name Policy Type Policy Number Effective Date Expiration Date [facility] [id number] 2019 00:00:00 [facility] Problems Condition Name Condition Details Condition Category Status Onset Date Resolution Date Last Treatment Date Treating Clinician Comments Source Severe sepsis Problem Active [facility] Urinary tract infection Problem Active [facility] Ischemic cardiomyopathy Isch emic cardiomyopathy Active Diagnosis 01/31/2020 Alokdov Chintan Diagnosis Active 2020-01-31 02: 58:51 Jerome Gaines 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 without congestive heart failure Active Diagnosis 01/31/2020 Chintan Woodson Diagnosis Active 2020-01-31 02:58:51 [facility] 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 II, uncontrolled 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 II, uncontrolled Active [facility] Active 2020-01-31 02:58:51 Bina locke Eder Pure hypercholesterolemia Pure hypercholesterolemia Active Diagnosis 01/31/2020 [facility] Diagnosis Active 2020-01-31 02:58:51 [facility] Obesity (BMI 30.0-34.9) Obes ity (BMI 30.0-34.9) Active Problem 01/31/2020 [facility] Problem Active 2020-01-31 02:58 :51 [facility] Precordial pain Prec ordial pain Active Diagnosis 01/31/2020 [facility] Diagnosis Active 2020-01-31 02:58:51 [facility] Breath shortness Inglis th shortness Active Diagnosis 01/31/2020 [facility] Diagnosis Active 2020-01-31 02:58:51 [facility] Other symptoms involving cardiovascular system Other symptoms involving cardiovascular system Active Diagnosis 01/31/2020 [facility] Diagnosis Active 2020-01-31 02:58:51 [facility] 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 N.K.D.A. Active Info Not Available 2019-07-01 00:[facility] No Known Allergies DA Active U 2018-11-25 00:00:00 [facility] No Known Allergies DA Active U 2014-10-01 00:00:00 [facility] No Known Allergies DA Active U 2012-08-18 00:00:00 [facility] Social History Social Habit Start Date Stop Date Quantity Comments Source Sex Assigned At 1945 00:00:00 1945 00:00:00 Male [facility] Medications Ordered Medication Name Filled Medication Name Start Date Stop Da te Current Medication? Ordering Clinician Indication Dosage Frequency Signature (SIG) Comments Components Source Atorvastatin Calcium 2020-01-31 02:58:51 Yes Ahmed Ahmed 1 tablet [facility] Finasteride 2020-01-31 02:58:51 Yes Ahmed Ahmed 1 tablet [facility] Metoprolol Tartrate 2020-01-31 02:58:51 Yes Ahmed Ahmed 1 tablet with food [facility] ASPRIN 81 2020-01-31 02:58:51 Yes Ahmed Ahmed not defined [facility] Melatonin 2020-01-31 02:58:51 Yes Ahmed Ahmed as directed [facility] Pantoprazole Sodium 2020-01-31 02:58:51 Yes Ahmed Ahmed 1 tablet [facility] Nitrofurantoin 2020-01-31 02:58:51 Yes Ahmed Ahmed 10 ml with food [facility] Metformin HCl 2020-01-31 02:58:51 Yes Ahmed Ahmed 1 tablet with a meal [facility] Clopidogrel Bisulfate 2020-01-31 02:58:51 Yes Ahmed Ahmed 1 tablet [facility] Digoxin 2020-01-31 02:58:51 Yes Ahmed Ahmed as di rected [facility] Lisinopril 2020-01-31 02:58:51 Yes Ahmed Ahmed 1 tablet [facility] Tamsulosin HCl 2020-01-31 02:58:51 Yes Ahmed Ahmed 1 capsule [facility] Mens One Daily 2020-01-31 02:58:51 Yes Ahmed Ahmed not defined [facility] Tramadol HCl 2020-01-31 02:58:51 Yes Ahmed Ahmed 5 ml as needed [facility] Ascorbic Acid (Vitamin C) 1,000 Mg TABLET Ascorbic Aci d (Vitamin C) 1,000 Mg TABLET Yes 1000 Twice A Day [facility] Aspirin (Aspir 81) 81 Mg TABLET. Aspirin (Aspir 81) 81 Mg TABLET. Yes 81 Daily [facility] Atorvastatin Calcium Atorvastatin Calcium Yes 40 Bedtime [facility] Cholecalciferol (Vitamin D3) (Vitamin D3) 250 Mcg TABL ET Cholecalciferol (Vitamin D3) (Vitamin D3) 250 Mcg TABLET Yes 1000 Daily [facility] Digoxin Digoxin Yes .125 Daily [facility] Finasteride Finasteride Yes 5 Daily [facility] Insulin Glargine (Lantus 3ML Pen) 100 Units/1 Ml INJ I nsulin Glargine (Lantus 3ML Pen) 100 Units/1 Ml INJ Yes 50 Bedtime [facility] Insulin Lispro (Humalog) 100 Unit/1 Ml INSULN.PEN Insu ashley Lispro (Humalog) 100 Unit/1 Ml INSULN.PEN Yes 5 Three Times A Day [facility] Lisinopril Lisinopril Yes 2.5 Daily [facility] Metoprolol Succinate Metoprolol Succinate Yes 25 Twice A Day [facility] Multivit-Min/Folic/Vit K/Lycop (Men's 50 Plus Multivit sullivan Tab) 1 Each TABLET Multivit-Min/Folic/Vit K/Lycop (Men's 50 Plus Multivitamin Tab) 1 Each TABLET Yes 1 Daily [facility] Pregabalin (Lyrica) 50 Mg CAP Pregabalin (Lyrica) 50 Mg CAP Yes 100 Twice A Day [facility] Sennosides/Docusate Sodium (Senokot-S Tablet) 1 Each T ABLET Sennosides/Docusate Sodium (Senokot-S Tablet) 1 Each TABLET Yes 1 Bedtime [facility] Sulfamethoxazole/Trimethoprim (Bactrim Ds Tablet) 1 Ea ch TABLET Sulfamethoxazole/Trimethoprim (Bactrim Ds Tablet) 1 Each TABLET Yes 1 Twice A Day [facility] Tamsulosin Hcl (Flomax*) 0.4 Mg CAP Tamsulosin Hcl (Flomax*) 0.4 Mg C AP Yes .4 Twice A Day [facility] Cholecalciferol (Vitamin D3) (Vitamin D3) 2,000 Unit T ABLET Cholecalciferol (Vitamin D3) (Vitamin D3) 2,000 Unit TABLET 2020-02-23 00:00:00 No Daily [facility] Metformin Hcl Metformin Hcl 2020-02-23 00:00:00 No 1000 Twice A Day [facility] Multivitamin/Iron/Folic Acid (Centrum Adults Tablet) 1 Each TABLET Multivitamin/Iron/Folic Acid (Centrum Adults Tablet) 1 Each TABLET 2020-02-23 00:00:00 No 1 Daily [facility] Digoxin Digoxin 2019-08-22 00:00:00 No .125 Daily [facility] Cholecalciferol (Vitamin D3) (Vitamin D) 400 Unit CAPS ULE Cholecalciferol (Vitamin D3) (Vitamin D) 400 Unit CAPSULE 2019-08-18 00:00:00 No Daily [facility] Lisinopril Lisinopril 2019-08-18 00:00:00 No 10 Bed time [facility] Vital Signs Vital Name Observation Time Observation Value Comments Source Body Temperature 2020-03-04 09:00:00 98.8 [degF] [facility] Weight 2020-03-03 00:08:00 178.31 [lb_av] [facility] BMI (Body Mass Index) 2020-03-03 00:08:00 30.6 kg/m2 [facility] Weight 2019-07-01 16:30:00 [facility] Heart Rate 2019-07-01 16:30:00 [facility] Diastolic (mm Hg) 2019-07-01 16:30:00 [facility] Systolic (mm Hg) 2019-07-01 16:30:00 Chris riatabitha Gaines Procedures Procedure Date / Time Performed Performing Clinician [facility] e X-ray of chest, two views 2020-03-02 00:00:00 [facility] EXCISION OF PROSTATE, ENDO 2019-08-20 00:00:00 C HI [facility] DILATION OF BILATERAL URETERS, ENDO 2019-08-20 00:00:00 [facility] FLUOROSCOPY OF KIDNEY, URETER & BLADDER USING L OSM CO NTRAST 2019-08-20 00:00:00 [facility] [place] DILATION OF URETHRA, ENDO 2019-08-20 00:00:00 [facility] X-ray of chest, two views 2019-08-18 00:00:00 BERTIN CARRASCO [facility] Plan of Care Planned Activity Planned Date Details Comments Source Instructions [facility] Encounters Start Date/Time End Date/Time Encounter Type Admission Type [facility] Care Department Encounter ID Source 2020-03-01 23:54:00 2020-03-04 11:23:00 Discharged Inpatient 1 SMITH [facility] [id number] [facility] 2020-03-01 10:50:00 2020-03-01 10:50:00 Registered Surgical Day Care [facility] [id number] [facility] 2019-08-20 09:28:00 2019-08-23 15:45:00 Discharged Inpatient 3 BERTIN CARRASCO [facility] [id number] [facility] 2019-07-01 11:30:00 2019-07-01 11:30:00 Outpatient [facility] [id number] [employer] 2019-06-06 14:29:00 2019-06-06 14:29:00 Outpatient [facility] [id number] [employer] 2018-12-24 11:38:00 2018-12-24 11:38:00 Registered Clinic 3 [facility] [id number] [facility] Results Test Description Test Time Test Comments Results Result Comments Source CT BRAIN WO 2020-06-11 19:32:00 [facility] 1945 Sex: M [facility] [address] [address] Patient Name: TORI TRIPLETT MR #: [id number] : 1945 Age/Sex: 74/M Req #: [id number] Adm Physician: Ordered by: FUENTES KENNY DO Report #: [id number] Location: ER Room/Bed: Procedure: [id number] CT/CT BRAIN WO Exam Date: 06/11/20 Exam Time: 1851 REPORT STATUS: Signed EXAMINATION: Head CT without contrast. HISTORY:Altered mental status. COMPARISON:None. TECHNIQUE: Multidetector axial images were obtained from the foramen magnum to the vertex without contrast. The images were reconstructed using brain and bone algorithms. Thin section brain images were reformatted into coronal and sagittal planes. Dose modulation, iterative reconstruction, and/or weight based adjustment of the mA/kV was utilized to reduce the radiation dose to as low as reasonably achievable. Intravenous contrast: None IMAGE QUALITY: Acceptable. FINDINGS: Skull/scalp: No lytic or blastic. lesions. No surgical changes. Parenchyma: No nonspecific bilateral frontoparietal patchy white matter hypodensity are likely related to small vessel ischemic changes. No acute hemorrhage, mass or acute major vascular territorial infarct. Arteries: No density suggestive of thrombosis. Atherosclerotic calcification in bilateral carotid siphon and V4 segment of left vertebral artery. Dural sinuses: No abnormal density suggestive of thrombosis. Ventricles: Mild compensated dilatation due to volume loss. No hydrocephalus. Extra-axial spaces: No abnormal density. Brain volume: Mild generalized cerebral volume loss. Craniocervical junction: No mass, Chiari malformation, or basilar invagination. Sella: No mass. Paranasal/mastoid sinuses: Imaged portions unremarkable. IMPRESSION: No acute intracranial abnormality. Mild supratentorial white matter microvascular ischemic changes. Mild generalized cerebral volume loss. Signed by: Dr. Hay Camara M.D. on 06/11/2020 7:45 PM Dictated By: HAY CAMARA MD 44 Transcribed By: KENZIE on 06/11/201944 COPY TO: FUENTES KENNY DO CHEST SINGLE (PORTABLE) 2020-06-11 19:10:00 [facility] 1945 Sex: M [facility] [address] [place] [address] Patient Name: TORI TRIPLETT MR #: [id number] : 1945 Age/Sex: 74/M Req #: [id number] [facility] Physician: Ordered by: FUENTES KENNY DO Report #: [id number] Location: Room/Bed: Procedure: [id number] DX/CHEST SINGLE (PORTABLE) Exam Date: 06/11/20 Exam Time: 185 REPORT STATUS: Signed EXAMINATION: CHEST SINGLE (PORTABLE) [...] Test Item Bedside Glucose (test code = 93558-1) 208 70-120 Meter ID: [id number]Blood leukocytes automated count (number/volume)2020-03-03 05:15:00* Test Item Value Reference Range Interpretation Comments White Blood Count (test code = 6690-2) 12.83 4.8-10.8 [facility] erythrocytes automated count (number/volume)2020-03-03 05:15:00* Test Item Value Reference Range Interpretation Comments Red Blood Count (test code = 789-8) 3.31 4.3-5.7 [facility] hemoglobin measurement (moles/volume)2020-03-03 05:15:00* Test Item Value Reference Range Interpretation Comments Hemoglobin (test code = 88755-1) 9.9 14.0-18.0 [facility] blood hematocrit (volume fraction)2020-03-03 05:15:00* Test Item Value Reference Range Interpretation Comments Hematocrit (test code = 4544-3) 29.9 38.2-49.6 [facility]eville[facility] erythrocyte mean corpuscular plucax1806-49-40 05:15:00* Test Item Value Reference Range Interpretation Comments Mean Corpuscular Volume (test code = 787-2) 90.3 81-99 [facility] erythrocyte mean corpuscular hemoglobin (mass per erythrocyte)2020-03-03 05:15:00* Test Item Value Reference Range Interpretation Comments Mean Corpuscular Hemoglobin (test code = 785-6) 29.9 28-32 [facility]eville[facility] erythrocyte mean corpuscular hemoglobin concentration measurement (mass/volume)2020-03-03 05:15:00* Test Item Value Reference Range Interpretation Comments Mean Corpuscular Hemoglobin Concent (test code = 786-4) 33.1 31-35 [facility]evilleRDW MwnPu-Nri8505-58-05 05:15:00* Test Item Value Reference Range Interpretation Comments Red Cell Distribution Width (test code = 83499-4) 15.4 11.7 -14.4 [facility]eville[facility] blood platelet count (count/volume)2020-03-03 05:15:00* Test Item Value Reference Range Interpretation Comments Platelet Count (test code = 777-3) 164 140-360 [facility]evilleAut[facility] segmented neutrophil count as percentage of total czcxfhuhhj9479-28-10 05:15:00* Test Item Value Reference Range Interpretation Comments Neutrophils (%) (Auto) (test code = 67804-0) 75.9 38.7-80.0 [facility] blood lymphocyte count as percentage ot total mncvknrpwg4613-27-14 05:15:00* Test Item Value Reference Range Interpretation Comments Lymphocytes (%) (Auto) (test code = 736-9) 12.0 18.0-39.1 [facility]eville[facility] blood monocyte count as percentage of total kzraigkuop1637-66-81 05:15:00* Test Item Value Reference Range Interpretation Comments Monocytes (%) (Auto) (test code = 5905-5) 7.4 4.4-11.3 [facility] blood eosinophil count as percentage of total dsczayllng1121-24-41 05:15:00* Test Item Value Reference Range Interpretation Comments Eosinophils (%) (Auto) (test code = 713-8) 4.1 0.0-6.0 [facility]eville[facility] blood basophil count as percentage of total ukcnidxcpa0844-52-48 05:15:00* Test Item Value Reference Range Interpretation Comments Basophils (%) (Auto) (test code = 706-2) 0.2 0.0-1.0 [facility]evilleFluoroscopic procedure less than one hour xsieefyn2538-22-33 05:15:00* Test Item Value Reference Range Interpretation Comments IM GRANULOCYTES % (test code = IM GRANULOCYTES %) 0.4 0.0- 1.0 [facility]eville[facility] blood neutrophil count 2020-03-03 05:15:00* Test Item Value Reference Range Interpretation Comments Neutrophils # (Auto) (test code = 751-8) 9.7 2.1-6.9 [facility] lymphocytes count (number/volume) 2020-03-03 05:15:00* Test Item Value Reference Range Interpretation Comments Lymphocytes # (Auto) (test code = 60722-1) 1.5 1.0-3.2 [facility] monocytes automated count (number/volume)2020-03-03 05:15:00* Test Item Value Reference Range Interpretation Comments Monocytes # (Auto) (test code = 742-7) 1.0 0.2-0.8 [facility]eville[facility] blood eosinophil count 2020-03-03 05:15:00* Test Item Value Reference Range Interpretation Comments Eosinophils # (Auto) (test code = 711-2) 0.5 0.0-0.4 [facility]eville[facility] blood basophil count (count/volume)2020-03-03 05:15:00* Test Item Value Reference Range Interpretation Comments Basophils # (Auto) (test code = 704-7) 0.0 0.0-0.1 [facility]evilleFluoroscopic procedure less than one hour ynjcihak1090-15-82 05:15:00* Test Item Value Reference Range Interpretation Comments Absolute Immature Granulocyte (auto ([place] t code = Absolute Immature Granulocyte (auto) 0.05 0-0.1 [facility] sodium measurement (moles/volume)2020-03-03 05:15:00* Test Item Value Reference Range Interpretation Comments Sodium Level (test code = 2951-2) 139 136-145 [facility] plasma potassium measurement (moles/volume)2020-03-03 05:15:00* Test Item Value Reference Range Interpretation Comments Potassium Level (test code = 2823-3) 4.0 3.5-5.1 [facility] plasma chloride measurement (moles/volume)2020-03-03 05:15:00* Test Item Value Reference Range Interpretation Comments Chloride Level (test code = 2075-0) 108 98-107 [facility] or plasma carbon dioxide, total measurement (moles/volume)2020-03-03 05:15:00* Test Item Value Reference Range Interpretation Comments Carbon Dioxide Level (test code = 2028-9) 25 22-29 [facility] or plasma anion iou7599-68-83 05:15:00* Test Item Value Reference Range Interpretation Comments Anion Gap (test code = 42564-3) 10.0 8-16 [facility] or plasma urea nitrogen measurement (mass/volume)2020-03-03 05:15:00* Test Item Value Reference Range Interpretation Comments Blood Urea Nitrogen (test code = 3094-0) 13 7-26 [facility] plasma creatinine measurement (mass/volume)2020-03-03 05:15:00* Test Item Value Reference Range Interpretation Comments Creatinine (test code = 2160-0) 0.97 0.72-1.25 [facility] or plasma urea nitrogen/creatinine mass cmpmi3298-59-25 05:15:00* Test Item Value Reference Range Interpretation Comments BUN/Creatinine Ratio (test code = 3097-3) 13 625 [facility]evilleEstimated glomerular filtration rate (GFR) sqqbgtbaasyqt8019-67-49 05:15:00* Test Item Value Reference Range Interpretation Comments Estimat Glomerular Filtration Rate (test code = 198579823) > 60 >60 Ranges were taken from the National Kidney Disease Education Program and the [facility] literature.Reference ranges:60 or greater: Ogicie43-43 ( for 3 consecutive months): Chronic kidney disease 15 or less: Kidney failureCHI [facility] CenterGlucose dgmvdxlvnnr0498-76-71 05:15:00* Test Item Value Reference Range Interpretation Comments Glucose Level (test code = UYO7961) 184 74-118 [facility] or plasma calcium measurement (mass/volume)2020-03-03 05:15:00* Test Item Value Reference Range Interpretation Comments Calcium Level (test code = 91548-7) 8.3 8.4-10.2 [facility]eville[facility]ST 2 LBUDN3964-01-87 09:39:00 [facility] [address] [address] Patient Name: TORI TRIPLETT MR #: [id number] : 1945 Age/Sex: 74/M Req #: [id number] Adm Physician: AKI MTZ MD Ordered by: BERTIN CARRASCO MD Report #: [id number] Location: [facility] Room/Bed: [address] [address] Procedure: [id number] DX/CHEST 2 VIEWS Exam Date: 03/02/20 Exam Time: 0924 REPORT STATUS: Signed X-ray chest PA and [...] on 03/02/2020 9:44 AM Dictated By: TRAE JUNIOR MD Elec tronically Signed By: TRAE JUNIOR MD on 03/02/20943 Transcribed By: JOHNSON MELEDNEZ on 03/02/20943 COPY TO: BERTIN CARRASCO MD Blood platelets count by estimate (number/volume)2020-03-02 07:32:00* Test Item Value Reference Range Interpretation Comments Platelet Estimate (test code = 06779-0) ADEQUATE [facility] BeevillePlatelet qtazxlweta5635-99-50 07:32:00* Test Item Value Reference Range Interpretation Comments Platelet Morphology Comment (test code = 44187-8) RARE EDTA CLUMPIN G [facility]evilleBlood anisocytosis detection by light nwxoszsqbj5721-60-42 07:32:00* Test Item Value Reference Range Interpretation Comments Anisocytosis (test code = 702-1) SLIGHT [facility] BeevilleRBC tjygkkosvu3846-65-73 07:32:00* Test Item Value Reference Range Interpretation Comments Red Cell Morphology Comment (test code = 6742-1) NORMAL [facility] or plasma total bilirubin measurement (mass/volume)2020-03-02 07:32:00* Test Item Value Reference Range Interpretation Comments Total Bilirubin (test code = 1975-2) 0.5 0.2-1.2 [facility]evilleFluoroscopic procedure less than one hour ozefzgyg2129-80-30 07:32:00* Test Item Value Reference Range Interpretation Comments Aspartate Amino Transf (AST/SGOT) (test code = Aspartate Amino Transf (AST/SGOT)) 14 5-34 [facility] or plasma alanine aminotransferase measurement (enzymatic activity/volume)2020-03-02 07:32:00* Test Item Value Reference Range Interpretation Comments Alanine Aminotransferase (ALT/SGPT) (test code = 1742-6) 11 0-55 [facility] or plasma protein measurement (mass/volume)2020-03-02 07:32:00* Test Item Value Reference Range Interpretation Comments Total Protein (test code = 2885-2) 5.4 6.5-8.1 [facility] albumin measurement (mass/volume)2020-03-02 07:32:00* Test Item Value Reference Range Interpretation Comments Albumin (test code = 1751-7) 2.7 3.5-5.0 [facility]eville[facility] globulin measurement (mass/volume) 2020-03-02 07:32:00* Test Item Value Reference Range Interpretation Comments Globulin (test code = 44445-4) 2.7 2.3-3.5 [facility] plasma albumin/globulin mass gupla1695-28-65 07:32:00* Test Item Value Reference Range Interpretation Comments Albumin/Globulin Ratio (test code = 1759-0) 1.0 0.8-2.0 [facility] or plasma alkaline phosphatase measurement (enzymatic activity/volume)2020-03-02 07:32:00* Test Item Value Reference Range Interpretation Comments Alkaline Phosphatase (test code = 6768-6) 53 40-150 [facility]evilleFluoroscopic procedure less than one hour wnngcevz9065-45-37 02:20:00* Test Item Value Reference Range Interpretation Comments Lactic Acid Level (test code = Lactic Acid Level) 1.8 0.5- 2.0 [facility]eville[facility]ST SINGLE (PORTABLE)2020-03-02 00:57:00 [facility] [address] [place] [address] Patient Name: TORI TRIPLETT MR #: [id number] : 1945 Age/Sex: 74/M Req #: [id number] Adm Physician: AKI MTZ MD Ordered by: DENY WILBURN DO Report #: [id number] Location: [facility] Room/Bed: [facility]- Procedure: [id number] DX/CHEST SI NGLE (PORTABLE) Exam Date: 03/02/20 [...] MASOUD TANG MD 5 COPY TO: LINDA WILBURN, DO Urine color cybusdazkmxqb1077-81-44 00:30:00* Test Item Value Reference Range Interpretation Comments Urine Color (test code = 5778-6) YELLOW YELLOW DARK YELLOWCHRISTUS [facility]ohn Hospital BeevilleUrine adsdgna6762-91-90 00:30:00* Test Item Value Reference Range Interpretation Comments Urine Clarity (test code = 35970-7) SL CLOUDY CLEAR [facility] gravity of Urine by Test strip 2020-03-02 00:30:00* Test Item Value Reference Range Interpretation Comments Urine Specific [place] (test code = 5811-5) 1.020 1.010-1.02 5 [facility]evilleUrine pH measurement by automated test rxwrk5803-96-31 00:30:00* Test Item Value Reference Range Interpretation Comments Urine pH (test code = 12658-0) 6 5-7 [facility] BeevilleUrine leukocyte esterase detection by wemhkffm4481-53-32 00:30:00* Test Item Value Reference Range Interpretation Comments Urine Leukocyte Esterase (test code = 5799-2) SMALL NEGATIVE [facility]evilleUrine nitrite vieevapzt4111-30-02 00:30:00* Test Item Value Reference Range Interpretation Comments Urine Nitrite (test code = 07463-0) NEGATIVE NEGATIVE [facility]evilleUrine protein measurement by test strip (mass/volume)2020-03-02 00:30:00* Test Item Value Reference Range Interpretation Comments Urine Protein (test code = 5804-0) 2+ NEGATIVE [facility]evilleUrine glucose maqoqeuxd1188-48-39 00:30:00* Test Item Value Reference Range Interpretation Comments Urine Glucose (UA) (test code = 2349-9) NEGATIVE NEGATIVE [facility]evilleUrine ketones detection by automated test niqju3885-66-63 00:30:00* Test Item Value Reference Range Interpretation Comments Urine Ketones (test code = 97517-5) TRACE NEGATIVE [facility]evilleUrine urobilinogen measurement by test strip (mass/volume)2020-03-02 00:30:00* Test Item Value Reference Range Interpretation Comments Urine Urobilinogen (test code = 05284-6) 0.2 0.2-1 [facility]evilleU[facility] total bilirubin measurement (mass/volume)2020-03-02 00:30:00* Test Item Value Reference Range Interpretation Comments Urine Bilirubin (test code = 1978-6) SMALL NEGATIVE [facility]evilleUrine erythrocytes jjqfxkgrg6453-61-32 00:30:00* Test Item Value Reference Range Interpretation Comments Urine Blood (test code = 15580-6) LARGE NEGATIVE [facility] BeevilleAutomated urine sediment leukocyte count by microscopy (number/high power field)2020-03-02 00:30:00* Test Item Value Reference Range Interpretation Comments Urine WBC (test code = 5821-4) 11-20 0-5 [facility]evilleErythrocytes detection in urine sediment by light dscfpznbez4697-33-86 00:30:00* Test Item Value Reference Range Interpretation Comments Urine RBC (test code = 89180-9) 21-50 0-5 [facility]evilleBacteria detection in urine sediment by light mbzqdjfcfd9726-13-37 00:30:00* Test Item Value Reference Range Interpretation Comments Urine Bacteria (test code = 13712-3) MODERATE NONE [facility] BeevilleEpithelial cells detection in urine sediment by light drncenuptj3509-69-81 00:30:00* Test Item Value Reference Range Interpretation Comments Urine Epithelial Cells (test code = 25976-9) FEW NONE [facility] BeevilleFluoroscopic procedure less than one hour zumvetuj5519-48-68 23:37:00* Test Item Value Reference Range Interpretation [...] under 564(g) of the ACT.Testing performed by [address] [id number] CenterBlood dkaxeyx4274-68-82 23:37:00* Test Item Value Reference Range Interpretation Comments Blood Culture (test code = 42011787) NO GROWTH AFTER 48 HOURS [facility] BeevilleBacterial urine sxgczbf8427-05-89 13:26:00* Test Item Value Reference Range Interpretation Comments Urine Culture (test code = 630-4) ESCHERICHIA COLI-ESBL [facility] BeevilleBedside Wdmarqn0579-86-44 12:19:00* Test Item Value Reference Range Interpretation Comments Bedside Glucose (test code = 60434-9) 121 70-120 H Meter ID: [id number] Planoodium Level 2019-08-23 08:56:00* Test Item Value Reference Range Interpretation Comments Sodium Level (test code = 2951-2) 140 136-145 [facility] BeevillePotassium Tnpvr6221-93-55 08:56:00* Test Item Value Reference Range Interpretation Comments Potassium Level (test code = 2823-3) 4.4 3.5-5.1 [facility] BeevilleChloride Qkvtt8006-29-70 08:56:00* Test Item Value Reference Range Interpretation Comments Chloride Level (test code = 2075-0) 107 98-107 [facility] BeevilleCarbon Dioxide Kkhcz8985-22-36 08:56:00* Test Item Value Reference Range Interpretation Comments Carbon Dioxide Level (test code = 2028-9) 25 22-29 [facility] BeevilleAnion Dec6775-15-31 08:56:00* Test Item Value Reference Range Interpretation Comments Anion Gap (test code = 75766-8) 12.4 8-16 [facility]evilleBlood Urea Attqnntu7875-61-49 08:56:00* Test Item Value Reference Range Interpretation Comments Blood Urea Nitrogen (test code = 3094-0) 11 7-26 [facility] BeevilleCreatinine2020-01-25 08:56:00* Test Item Value Reference Range Interpretation Comments Creatinine (test code = 2160-0) 0.76 0.72-1.25 [facility] BeevilleBUN/Creatinine Ixxgj3030-53-47 08:56:00* Test Item Value Reference Range Interpretation Comments BUN/Creatinine Ratio (test code = 3097-3) 14 6-25 [facility] BeevilleEstimat Glomerular Filtration Rate 2019-08-23 08:56:00* Test Item Value Reference Range Interpretation Comments Estimat Glomerular Filtration Rate (test code = 007025688) > 60 >60 Ranges were taken from the National Kidney Disease Education Program and the [facility] Kidney Foundation literature.Reference ranges:60 or greater: Fbszel16-74 ( for 3 consecutive months): Chronic kidney disease 15 or less: Kidney failureCHRISTUS Spohn Hospital BeevilleGlucose Rnach6530-96-88 08:56:00* Test Item Value Reference Range Interpretation Comments Glucose Level (test code = IRH0592) 106 74-118 [facility] BeevilleCalcium Vojxl3060-78-64 08:56:00* Test Item Value Reference Range Interpretation Comments Calcium Level (test code = 95988-4) 8.6 8.4-10.2 [facility] BeevilleWhite Blood Vyyoh4031-26-19 08:31:00* Test Item Value Reference Range Interpretation Comments White Blood Count (test code = 6690-2) 11.82 4.8-10.8 H [facility] BeevilleRed Blood Smavu0224-92-31 08:31:00* Test Item Value Reference Range Interpretation Comments Red Blood Count (test code = 789-8) 3.37 4.3-5.7 L [facility] BeevilleHemoglobin2020-01-25 08:31:00* Test Item Value Reference Range Interpretation Comments Hemoglobin (test code = 23808-0) 10.0 14.0-18.0 L [facility] BeevilleHematocrit2020-01-25 08:31:00* Test Item Value Reference Range Interpretation Comments Hematocrit (test code = 4544-3) 30.7 38.2-49.6 L [facility] BeevilleMean Corpuscular Snwtfk9210-61-39 08:31:00* Test Item Value Reference Range Interpretation Comments Mean Corpuscular Volume (test code = 787-2) 91.1 81-99 [facility] BeevilleMean Corpuscular Ujlcorcpfn9610-80-65 08:31:00* Test Item Value Reference Range Interpretation Comments Mean Corpuscular Hemoglobin (test code = 785-6) 29.7 28-32 [facility]evilleMean Corpuscular Hemoglobin Concent 2019-08-23 08:31:00* Test Item Value Reference Range Interpretation Comments Mean Corpuscular Hemoglobin Concent (test code = 786-4) 32.6 31-35 [facility] BeevilleRed Cell Distribution Rridf8395-66-59 08:31:00* Test Item Value Reference Range Interpretation Comments Red Cell Distribution Width (test code = 74024-8) 14.2 11.7 -14.4 [facility] BeevillePlatelet Jkvsi8632-94-10 08:31:00* Test Item Value Reference Range Interpretation Comments Platelet Count (test code = 777-3) 225 140-360 [facility] BeevilleNeutrophils (%) (Auto)2019-08-23 08:31:00 * Test Item Value Reference Range Interpretation Comments Neutrophils (%) (Auto) (test code = 50303-6) 61.1 38.7-80.0 [facility] BeevilleLymphocytes (%) (Auto)2019-08-23 08:31:00 * Test Item Value Reference Range Interpretation Comments Lymphocytes (%) (Auto) (test code = 736-9) 16.9 18.0-39.1 L [facility] BeevilleMonocytes (%) (Auto)2019-08-23 08:31:00* Test Item Value Reference Range Interpretation Comments Monocytes (%) (Auto) (test code = 5905-5) 7.4 4.4-11.3 [facility]evilleEosinophils (%) (Auto)2019-08-23 08:31:00 * Test Item Value Reference Range Interpretation Comments Eosinophils (%) (Auto) (test code = 713-8) 13.9 0.0-6.0 H [facility]evilleBasophils (%) (Auto)2019-08-23 08:31:00* Test Item Value Reference Range Interpretation Comments Basophils (%) (Auto) (test code = 706-2) 0.3 0.0-1.0 [facility] BeevilleIM GRANULOCYTES %2019-08-23 08:31:00* Test Item Value Reference Range Interpretation Comments IM GRANULOCYTES % (test code = IM GRANULOCYTES %) 0.4 0.0- 1.0 [facility]evilleNeutrophils # (Auto)2019-08-23 08:31:00* Test Item Value Reference Range Interpretation Comments Neutrophils # (Auto) (test code = 751-8) 7.2 2.1-6.9 H [facility] BeevilleLymphocytes # (Auto)2019-08-23 08:31:00* Test Item Value Reference Range Interpretation Comments Lymphocytes # (Auto) (test code = 71704-1) 2.0 1.0-3.2 [facility] BeevilleMonocytes # (Auto)2019-08-23 08:31:00* Test Item Value Reference Range Interpretation Comments Monocytes # (Auto) (test code = 742-7) 0.9 0.2-0.8 H [facility]evilleEosinophils # (Auto)2019-08-23 08:31:00* Test Item Value Reference Range Interpretation Comments Eosinophils # (Auto) (test code = 711-2) 1.6 0.0-0.4 H [facility] BeevilleBasophils # (Auto)2019-08-23 08:31:00* Test Item Value Reference Range Interpretation Comments Basophils # (Auto) (test code = 704-7) 0.0 0.0-0.1 [facility] BeevilleAbsolute Immature Granulocyte (auto 2019-08-23 08:31:00* Test Item Value Reference Range Interpretation Comments Absolute Immature Granulocyte (auto ([place] t code = Absolute Immature Granulocyte (auto) 0.05 0-0.1 [facility] BeevilleMagnesium Smfgt8475-27-22 17:37:00* Test Item Value Reference Range Interpretation Comments Magnesium Level (test code = 87894-4) 1.4 1.3-2.1 [facility] or plasma magnesium measurement (mass/volume)2019-08-21 15:35:00* Test Item Value Reference Range Interpretation Comments Magnesium Level (test code = 84093-8) 1.4 1.3-2.1 [facility] CenterCHEST 2 UUIWN3243-95-39 14:07:00 [facility] [address] [address] Patient Name: TORI TRIPLETT MR #: [id number] : 1945 Age/Sex: 73/M Req #: [id number] Adm Physician: Ordered by: BERTIN CARRASCO MD Report #: [id number] Location: OR Room/Bed: Procedure: [id number] DX/PRESTON ST 2 VIEWS Exam Date: 08/18/19 [...] BERTIN URBINA MD - XR C-SPINE 4-5 G2270-84-13 12:17:00 FAX: Aki Espitia MD [phone] [place]: O St: REG Name: TORI SOMERS [facility] : [birth year] Age/S: 73/M [address] [facility] Unit #: [id number] Loc: [place] [address] Phys: Aki Mtz MD Acct: [id number] Dis Date: Status: REG CLI PHONE #: [phone] Exam Date: 02/28/2019 1158 FAX #: [phone] Reason: CERVICAL SPINE PAIN EXAMS: CPT CODE: [id number] XR C-SPINE 4-5 V 16732 HISTORY: Pain. CLARICE RISON: None available. 5 [...] Electronically Signed by Jin bautista 02/28/2019 at 1217 Reported and signed by: Charles kate M.D. CC: Aki Mtz Technologist: RT ANAI(Myriam) Trnsc rd Date/Time/By: 02/28/2019 (8331) : By: Mary4 Orig Print D/T: S: 02/28/2019 (1794) PAGE 1 Signed R eport QOZPEI8822-17-76 04:55:00* Test Item Value Reference Range Interpretation Comments GLUBED (test code = GLUBED) 146 MG/DL 70-110 H Performed by certified shoe sewing machine operator and tender at [facility] - US RETRO RQI9448-52-79 14:22:00 Name: TORI GREGORY [facility] : 1945 Age/S: 73 / M [address] [place] [address] Blvd Unit #: [id number] Loc: [place] [address] Phys: Bertin Carrasco MD Acct: [id number] Dis Date: Status: ADM IN PHONE #: [phone] Exam Date: 02/08/2019 1354 FAX #: [phone] Reason: UTI EXAMS: CPT CODE: [id number] RETRO LTD [address]643 PROCEDURE: RENAL ULTRASOUND INDICATION: Urinary tract infection [...] or renal stones. 2. Enlarged prostate SL: [id number] at 7284 Reported and signed by: Sb Her M.D. CC: Bertin Carrasco MD; Aki Mtz MD Technologist: Rashmi Soler RDMS(OB)(AB) Trnscb Date/Time: 02/08/2019 (0329) KortneyBJM4 Orig Print D/T: S: 02/08/2019 (5911) Probe: PAGE 1 Signed Report [id number] 11:53:00* Test Item Value Reference Range Interpretation Comments GLUBED (test code = GLUBED) 86 MG/DL 70-110 N Performed by certified shoe sewing machine operator and tender at [facility] GDMIMB8297-77-75 08:28:00* Test Item Value Reference Range Interpretation Comments GLUBED (test code = GLUBED) 108 MG/DL 70-110 N Performed by certified shoe sewing machine operator and tender at [facility] VYSJNO1841-39-21 16:54:00* Test Item Value Reference Range Interpretation Comments GLUBED (test code = GLUBED) 129 MG/DL 70-110 H Performed by certified shoe sewing machine operator and tender at [facility] BASIC METABOLIC EZVHZ7023-23-65 14:33:00* Test Item Value Reference Range Interpretation [...] code = CA) 8.8 mg/dL 8.0-10.5 N ZIHNUGFMB6065-04-40 14:33:00* Test Item Value Reference Range Interpretation Comments MAGNESIUM (test code = MAG) 1.40 mg/dL 1.8-2.4 L CBC W/AUTO EWCH5767-17-16 14:20:00* Test Item Value Reference Range Interpretation [...] DIFF REQUIRED (test code = MDIFF) NO YFXTXR0717-05-32 12:02:00* Test Item Value Reference Range Interpretation Comments GLUBED (test code = GLUBED) 106 MG/DL 70-110 N Performed by certified shoe sewing machine operator and tender at [facility]2019-07-12 09:28:00* Test Item Value Reference Range Interpretation Comments GLUBED (test code = GLUBED) 152 MG/DL 70-110 H Performed by certified shoe sewing machine operator and tender at [facility]2019-07-12 09:01:00* Test Item Value Reference Range Interpretation Comments GLUBED (test code = GLUBED) 119 MG/DL 70-110 H Performed by certified shoe sewing machine operator and tender at [facility] ULPPSH5472-73-16 18:28:00* Test Item Value Reference Range Interpretation Comments GLUBED (test code = GLUBED) 122 MG/DL 70-110 H Performed by certified shoe sewing machine operator and tender at [facility] ZLJOIG6279-23-55 13:20:00* Test Item Value Reference Range Interpretation Comments GLUBED (test code = GLUBED) 172 MG/DL 70-110 H Performed by certified shoe sewing machine operator and tender at [facility] BKPKQP9254-39-84 13:20:00* Test Item Value Reference Range Interpretation Comments GLUBED (test code = GLUBED) 126 MG/DL 70-110 H Performed by certified shoe sewing machine operator and tender at [facility] YJDLMU2679-35-44 21:12:00* Test Item Value Reference Range Interpretation Comments GLUBED (test code = GLUBED) 207 MG/DL 70-110 H Performed by certified shoe sewing machine operator and tender at [facility] UGVVGKWN-A5743-54-10 20:54:00* Test Item Value Reference Range Interpretation [...] 3 troponins total (including troponin done in ED)CLBKXUVD-D9523-90-10 17:11:00* Test Item Value Reference Range Interpretation [...] any concentrations <2 ng/mL are obtained. URINALYSIS RWCILDQA5698-77-47 12:24:00* Test Item Value Reference Range Interpretation [...] MUCU) TRACE /LPF NONE SEEN COMMENTS: Clean NppkxALTHPPSW-X8827-40-10 11:13:00* Test Item Value Reference Range Interpretation Comments TROPONIN-I (test code = TROPI) 0.020 ng/mL 0.000-0.045 N Negative: <= 0.045 Positive: >= 0.046 Correlation with serial results, other cardiac markers andclinical findings is necessary to determine the clinicalsignificance of this result. Results using different methodologies should not be comparedto one another as quantitative results may vary by method. - XR CHEST 1 [id number] 11:02:00 FAX: Lupe Gracia DO [phone] [place]: St: PRE Name: Arsh PIERRESKIP MIAELVIABASIL [facility] : [birth year] Age/S: 73/M [address] [place] [address] Unit #: [id number] Loc: [address] [place] [address] Phys: Lupe Glaser DO Acct: [id number] Dis Date: Status: PRE ER PHONE #: [phone] Exam Date: 02/05/2019 1049 FAX #: [phone] Reason: FEVER EXAMS: CPT CODE: [id number] XR CHEST 1 V 30605 PROCEDURE: CHEST SINGLE VIEW INDICATION: Fever COMPARISON: [...] the differential. N o definite pneumonia. SL: [id number] at 1102 Reported and signed by: Iker Miller M.D. CC: Lupe Glaser DO Technologist: RT Judy(Myriam) Trnscrd Date/Time/By: 02/05/2019 (3012) : By: Yessy Orig Print D/T: S: 02/05/2019 (5071) PAGE 1 Signed Report TROPONIN-I RAPID 2019-02-05 10:56:00* Test Item Value Reference Range Interpretation Comments TROPONIN-I RAPID (test code = TROPIRAP) 0.02 ng/mL 0.00-0.08 N Performed by certified shoe sewing machine operator and tender at [facility] Negative: <= 0.08 Positive: >= 0.09An elevated troponin value alone is not sufficient todiagnose a myocardial infarction. Rather, the patient sclinical presentation (history, physical exam) and ECGshould be used in conjunction with troponin in thediagnostic evaluation of suspected myocardial infarction. Aserial sampling protocol is recommended to facilitate the identification of temporal changes in troponin levels characteristic of IA. LACTIC ACID [id number] 10:56:00* Test Item Value Reference Range Interpretation Comments LACTIC ACID POC (test code = LACTP) 1.6 MMOL/L 0.90-1.70 N Performed by certified shoe sewing machine operator and tender at [facility] CBC W/AUTO [id number] 10:53:00* Test Item Value Reference Range Interpretation [...] (test code = MDIFF) NO CHEMISTRY 8 MRUCFOM9549-04-73 10:44:00* Test Item Value Reference Range Interpretation [...] code = GFRBED) 78 ML/MIN CHEMISTRY 8 NXSLVVL1835-77-83 10:44:00* Test Item Value Reference Range Interpretation Comments ISTAT-SODIUM (test code = NAP) 141 MMOL/L 134-147 N ISTAT-POTASSIUM (test code = KP) 4.3 MMOL/L 3.4-5.0 N ISTAT-CHLORIDE (test code = CLP) 104 MMOL/L 100-108 N Performed by certified shoe sewing machine operator and tender at [facility] ISTAT CARBON DIOXIDE (test code [...] GFRBED) 78 ML/MIN SP LUMBAR, COMPLETE MIN [id number] 12:30:[address] [address] Patient Name: TORI TRIPLETT MR #: [id number] : 1945 Age/Sex: 73/M Req #: [id number] Adm Physician: Ordered by: AKI MTZ MD Report #: [id number] Location: [facility] Room/Bed: Procedure: [id number] DX/ SP LUMBAR, COMPLETE MIN 4VW Exam [...] 12 33 COPY TO: AKI MTZ MD [id number] 16:54:00* Test Item Value Reference Range Interpretation Comments GLUBED (test code = GLUBED) 136 MG/DL 70-110 H Performed by certified shoe sewing machine operator and tender at [facility] QLNZBL3592-90-99 12:43:00* Test Item Value Reference Range Interpretation Comments GLUBED (test code = GLUBED) 129 MG/DL 70-110 H Performed by certified shoe sewing machine operator and tender at [facility] RBLYHL6333-18-32 07:50:00* Test Item Value Reference Range Interpretation Comments GLUBED (test code = GLUBED) 162 MG/DL 70-110 H Performed by certified shoe sewing machine operator and tender at [facility] GDJPBT9964-42-95 22:23:00* Test Item Value Reference Range Interpretation Comments GLUBED (test code = GLUBED) 168 MG/DL 70-110 H Performed by certified shoe sewing machine operator and tender at [facility] PMUNSM2546-64-74 15:49:00* Test Item Value Reference Range Interpretation Comments GLUBED (test code = GLUBED) 158 MG/DL 70-110 H Performed by certified shoe sewing machine operator and tender at [facility] LWDLHX2198-99-35 11:05:00* Test Item Value Reference Range Interpretation Comments GLUBED (test code = GLUBED) 206 MG/DL 70-110 H Performed by certified shoe sewing machine operator and tender at [facility] HOZCXV8164-62-69 07:29:00* Test Item Value Reference Range Interpretation Comments GLUBED (test code = GLUBED) 156 MG/DL 70-110 H Performed by certified shoe sewing machine operator and tender at [facility] ZIOJCR4982-14-50 21:29:00* Test Item Value Reference Range Interpretation Comments GLUBED (test code = GLUBED) 248 MG/DL 70-110 H Performed by certified shoe sewing machine operator and tender at [facility] HEKCQF2393-97-09 17:22:00* Test Item Value Reference Range Interpretation Comments GLUBED (test code = GLUBED) 138 MG/DL 70-110 H Performed by certified shoe sewing machine operator and tender at [facility] - US SCROTUM AND [id number] 17:17:00 Name: TORI TRIPLETT [facility] : 1945 Age/S: 73 / M [address] [place] [address] Unit #: [id number] Loc: [place] [address] Phys: Aki Mtz MD Acct: [id number] Dis Date: Status: ADM IN PHONE #: [phone] Exam Date: 2018 1630 FAX #: [phone] Reason: SCROTUM, TESICULAR PAIN/DISCOMFORT EXAMS: CPT CODE: [id number] US SCROTUM AND CNTS 91167 PROCEDURE: SCROTAL ULTRASOUND INDICATION: Right testicular pain [...] Si gned Report (CONTINUED) Name: TORI TRIPLETT [facility] : 1945 Age/S: 73 / M [address] [facility] Unit #: [id number] Loc: [place] [address] Phys: Aki Mtz MD Acct: [id number] Dis Date: Status: ADM IN PHONE #: [phone] Exam Date: 2018 1636 FAX #: [phone] Reason: SCROTUM, TESICULAR P AIN/DISCOMFORT EXAMS: CPT CODE: [id number] US SCROTUM AND CNTS 73448 <Continued> at 1717 Reported and signed by: Miki Swan M.D. CC: Aki Mtz MD Technologist: Brent Savage RDMS (AB) (OB) Trnscb Date/Time: 2018 (1717) KortneyAJJ Orig Print D/T: S: 2018 (1720) Probe: PAGE 2 Signed Report - US SCROTUM AND [id number] 17:17:00 Name: TORI GREGORY [facility] : 1945 Age/S: 73 / M [address] [place] [address] Unit #: [id number] Loc: [place] [address] Phys: Aki Mtz MD Acct: [id number] Dis Date: Status: ADM IN PHONE #: [phone] Exam Date: 2018 1636 FAX #: [phone] Reason: SCROTUM, TESICULAR PAIN/DISCOMFORT EXAMS: CPT CODE: [id number] US SCROTUM AND CNTS 09949 PROCEDURE: SCROTAL ULTRASOUND INDICATION: Right testicular pain [...] Si gned Report (CONTINUED) Name: TORI GREGORY [facility] : 1945 Age/S: 73 / M [address] [facility] #: [id number] Loc: [place] [address] Phys: Aki Mtz MD Acct: [id number] Dis Date: Status: ADM IN PHONE #: [phone] Exam Date: 2018 1636 FAX #: [phone] Reason: SCROTUM, TESICULAR P AIN/DISCOMFORT EXAMS: CPT CODE: [id number] US SCROTUM AND CNTS 96312 <Continued> at 1717 Reported and signed by: Miki Swan M.D. CC: Aki Mtz MD Technologist: Brent Savage RDMS () (OB) Trnscb Date/Time: 2018 (1717) KortneyAJJ Orig Print D/T: S: 2018 (1720) Probe: PAGE 2 Signed Report [id number] 11:54:00* Test Item Value Reference Range Interpretation Comments GLUBED (test code = GLUBED) 237 MG/DL 70-110 H Performed by certified shoe sewing machine operator and tender at [facility] [id number] 08:32:00* Test Item Value Reference Range Interpretation Comments GLUBED (test code = GLUBED) 134 MG/DL 70-110 H Performed by certified shoe sewing machine operator and tender at [facility] [id number] 21:02:00* Test Item Value Reference Range Interpretation Comments GLUBED (test code = GLUBED) 181 MG/DL 70-110 H Performed by certified shoe sewing machine operator and tender at [facility] - MRA NECK [id number] 19:10:00 FAX: Gadelmola,Sudhir MD [phone] [place]: St: [facility] FAX: Aki Espitia MD [phone] Name: TORI TRIPLETT [facility] : 1945 Age/S: 72/M [address] [place] [address] Unit #: [id number] [facility] [place] [address] Phys: Sudhir Watson MD Acct: [id number] Dis Date: Status: ADM IN PHONE #: [phone] Exam Date: 11/27/2018 1510 FAX #: [phone] Reason: TIA EXAMS: CPT CODE: [id number] MRA NECK W/CONT 89853 INDICATION: Right arm numbness, transient ischemic attack. [...] in three-dimensional maximum intensity rotational projections. Three-dimensional tyay-ae-ztcohc MR angiography centered at the carot id [...] Repo rt (CONTINUED) FAX: Sudhir Watson MD [place]: St: ADM FAX: Aki Espitia MD [phone] ------ Name: TORI TRIPLETT [facility] : 08/1945 Age/S: 72/M [address] [place] [address] Blvd Unit #: [id number] Loc: [address] [address] Phys: Sudhir Watson MD Acct: [id number] Dis Date: Status: ADM IN PHONE #: Exam Date: 11/27/2018 1510 FAX #: [phone] Reason: TIA EXAMS: CPT CODE: [id number] MRA NECK W/CONT 59268 <Continued> arteries with mild to moderate focal [...] have a normal course caliber and contour. Cqyc-zb-xozbeslh atheroscl erotic irregularity along the right carotid [...] Signed Report (CONTINUED) FAX: Sudhir Watson MD [phone] [place]: St: ADM FAX: Aki Espitia MD [phone] Name: ELVIA TRIPLETT [facility] : 1945 Age/S : 72/M [address] [place] [address] Blvd Unit #: [id number] Loc: G. [address] [place] [address] Phys: Sudhir Watson MD Acct: [id number] Dis Date: Status: ADM IN PHONE #: [phone] Exam Date: 11/27/2018 1510 FAX #: [phone] Reason: TIA EXAMS: CPT CODE: [id number] MRA NECK W/CONT 75113 <Continued> 1. Atherosclerotic irregularity with mild to [...] distal internal carotid artery (NASCET criteria). SL: HOSSENI at 1910 Reported and signed by: Cynthia Hall M.D. CC: Sudhir Watson MD; Aki Mtz MD Technologist: Jose Henderson, RT(R)(CT)(MR) Trnscrd Date/Time/By: 11/27/2018 (1909) : By: [email or web address] Orig Print D/T: S: 11/27/2018 (1912) PAGE 3 Signed Report - MRA HEAD W/O [id number] 19:10:00 FAX: Sudhir Watson MD [phone] [place]: St: ADM FAX: Aki Espitia MD [phone] Name: TORI TRIPLETT [facility] : 1945 Age/S: 72/M [address] [place] [address] Unit #: [id number] Loc: G.[address] [place] [address] Phys: Sudhir Watson MD Acct: [id number] Dis Date: Status: ADM IN PHONE #: [phone] Exam Date: 11/27/2018 1510 FAX #: [phone] Reason: TIA EXAMS: CPT CODE: [id number] MRA HEAD W/O CONTRAST 38080 INDICATION: Right arm numbness, transient ischemic attack. [...] in three-dimensional maximum intensity rotational projections. Three-dimensional ggeu-nn-erwvtn MR angiography centered at the carot id [...] Repo rt (CONTINUED) FAX: Sudhir Watson MD [place]: St: [facility] FAX: Aki Espitia MD [phone] ------ Name: TORI TRIPLETT [facility] : 08/1945 Age/S: 72/M [address] [place], [place] [address]vd Unit #: [id number] Loc: [address] [place] [address] Phys: Sudhir Watson MD Acct: [id number] Dis Date: Status: ADM IN PHONE #: Exam Date: 11/27/2018 1510 FAX #: [phone] Reason: TIA EXAMS: CPT CODE: [id number] MRA HEAD W/O CONTR AST 46184 <Continued> arteries with mild to moderate focal [...] have a normal course caliber and contour. Kuny-sh-ghzyvmqz atheroscl erotic irregularity along the right carotid [...] Signed Report (CONTINUED) FAX: Sudhir Watson MD [phone] [place]: St: [facility] FAX: Aki Espitia MD [phone] Name: TRIPLETTELVIA BASIL [facility] : 1945 Age/S : 72/M [address] [place] [address] Blvd Unit #: [id number] Loc: G. [address] [place] [address] Phys: Sudhir Watson MD Acct: [id number] Dis Date: Status: ADM IN PHONE #: [phone] Exam Date: 11/27/2018 1510 FAX #: [phone] Reason: TIA EXAMS: CPT CODE: [id number] MRA HEAD W/O CONTRAST 01900 <Continued> 1. Atherosclerotic irregularity with mild to [...] W/CONT 2018-11-27 19:10:00 FAX: Sudhir Watson MD [phone] [place]: St: [facility] FAX: Aki Espitia MD [phone] Name: TORI GREGORY [facility] : 1945 Age/S: 72/M [address] [place] [address] Blvd Unit #: [id number] Loc: [address] [place] [address] Phys: Sudhir Watson MD Acct: [id number] Dis Date: Status: ADM IN PHONE #: [phone] Exam Date: 11/27/2018 1510 FAX #: [phone] Reason: TIA EXAMS: CPT CODE: [id number] MRA NECK W/CONT 35175 INDICATION: Right arm numbness, transient ischemic attack. [...] in three-dimensional maximum intensity rotational projections. Three-dimensional ysmc-fn-jttftr MR angiography centered at the carot id [...] Repo rt (CONTINUED) FAX: Sudhir Watson MD [place]: St: ADM FAX: Aki Espitia MD [phone] ------ Name: TORI GREGORY [facility] : 08/1945 Age/S: 72/M [address] [place] [address] Unit #: [id number] Loc: [address] [address] Phys: Sudhir Watson MD Acct: [id number] Dis Date: Status: ADM IN PHONE #: Exam Date: 11/27/2018 1510 FAX #: [phone] Reason: TIA EXAMS: CPT CODE: [id number] MRA NECK W/CONT 53899 <Continued> arteries with mild to moderate focal [...] have a normal course caliber and contour. Pgel-tg-extjhyma atheroscl erotic irregularity along the right carotid [...] Signed Report (CONTINUED) FAX: Sudhir Watson MD [phone] [place]: St: ADM FAX: Aki Espitia MD [phone] Name: TOIR MELGAR CHA [facility] : 1945 Age/S : 72/M [address] [place] [address] Unit #: [id number] Loc: [address] [address] Phys: Sudhir Watson MD Acct: [id number] Dis Date: Status: ADM IN PHONE #: [phone] Exam Date: 11/27/2018 1510 FAX #: [phone] Reason: TIA EXAMS: CPT CODE: [id number] MRA NECK W/CONT 14100 <Continued> 1. Atherosclerotic irregularity with mild to [...] 3 Signed Report - MRA HEAD W/O [id number] 19:10:00 FAX: Sudhir Watson MD [phone] [place]: St: ADM FAX: Aki Espitia MD [phone] Name: TORI GREGORY [facility] : 1945 Age/S: 72/M [address] [place] [address] Unit #: [id number] Loc: G.[address] [place] [address] Phys: Sudhir Watson MD Acct: [id number] Dis Date: Status: ADM IN PHONE #: [phone] Exam Date: 11/27/2018 1510 FAX #: [phone] Reason: TIA EXAMS: CPT CODE: [id number] MRA HEAD W/O CONTRAST 87456 INDICATION: Right arm numbness, transient ischemic attack. [...] in three-dimensional maximum intensity rotational projections. Three-dimensional cbgs-ys-nxanpf MR angiography centered at the carot id [...] Repo rt (CONTINUED) FAX: Sudhir Watson MD [place]: St: ADM FAX: Aki Espitia MD [phone] ------ Name: UZIEL REDDLaryELVIABASIL [facility] : 08/1945 Age/S: 72/M [address] [place] [address] Blvd Unit #: [id number] Loc: G.[address] [place] [address] Phys: Sudhir Watson MD Acct: [id number] Dis Date: Status: ADM IN PHONE #: Exam Date: 11/27/2018 1510 FAX #: [phone] Reason: TIA EXAMS: CPT CODE: [id number] MRA HEAD W/[place] CONTR AST 950[address] <Continued> arteries with mild to moderate focal [...] have a normal course caliber and contour. Rxig-us-ofmkficy atheroscl erotic irregularity along the right carotid [...] Signed Report (CONTINUED) FAX: Sudhir Watson MD [phone] [place]: St: [facility] FAX: Aki Espitia MD [phone] Name: TORI MELGAR CHA [facility] : 1945 Age/S : 72/M [address] [place] [address] Unit #: [id number] Loc: [address] [place] [address] Phys: Sudhir Watson MD Acct: [id number] Dis Date: Status: ADM IN PHONE #: [phone] Exam Date: 11/27/2018 1510 FAX #: [phone] Reason: TIA EXAMS: CPT CODE: [id number] MRA HEAD W/O CONTRAST 86257 <Continued> 1. Atherosclerotic irregularity with mild to [...] Aki Mtz MD Technologist: Jose Henderson RT(R)(CT)(MR) Trnnvrd Date/Time/By: 11/27/2018 (1909) : By: [email or web address] Orig Print D/T: S: 11/27/2018 (1912) PAGE 3 Signed Report - MRI BRAIN WO/W [id number] 19:10:00 FAX: Aki Espitia MD [phone] [place]: St: ADM Name: TORI WILSON [facility] : [birth year] Age/S: 72/M [address] [place] [address] Blvd Unit #: [id number] Loc: [address] [place] [address] Phys: Aki Mtz MD Acct: [id number] Dis Date: Status: ADM IN PHONE #: [phone] Exam Date: 11/27/2018 1509 FAX #: [phone] Reason: Right arm numbness EXAMS: CPT CODE: [id number] MRI BRAIN WO/W CONT 33630 INDICATION: Right arm numbness, tr ansient ischemic [...] three-dimensional maximum inten sity rotational projections. Three-dimensional razm-mr-nrcvsx MR angiograp hy centered at the carotid [...] Signed Report (CONTINUED) FAX: Aki Espitia MD [phone] [place]: St: ADM Name: TORI TRIPLETT [facility] : 1945 Age/S: 72/M [address] [place] [address] Blvd Unit #: [id number] Loc: [address] [place] [address] Phys: Aki Mtz MD Acct: [id number] Dis Date: Status: ADM IN PHONE #: [phone] Exam Date: 07/2018 150 FAX #: [phone] Reason: Right arm numb ness EXAMS: CPT CODE: [id number] MRI BRAIN WO/W CONT 70 553 <Continued> [...] have a normal course caliber and contour. Glic-sr-bsraokwn atherosclerotic irregularity along the right carotid bulb [...] Re port (CONTINUED) FAX: Aki Espitia MD [place]: St: ADM Name: TORI TRIPLETT [facility] : 1945 Age/S: 72/M [address] [place] [address] Blvd Unit #: [id number] Loc: [address] [place] [address] Phys: Aki Mtz MD Acct: [id number] Dis Date: Status: ADM IN PHONE #: [phone] Exam Date: 11/27/2018 1509 FAX #: [phone] Reason: Right arm numbness EXAMS: CPT CODE: [id number] MRI BRAIN WO/W CONT 98314 < Continued> along the bilateral cavernous and [...] M.D. CC: Aki Mtz MD Technologist: Jose Hendesron RT(R)(CT)(MR) Trnscrd Date/Time/By: 11/27/2018 (1909) : By: [email or web address] Orig Print D/T: S: 11/27/2018 (1912) PAGE 3 Signed Report - MRI BRAIN WO/W [id number] 19:10:00 FAX: Aki Espiita MD [phone] [place]: St: ADM Name: TORI SOMERS [facility] [place] : [birth year] Age/S: 72/M [address] [place] [address] Blvd Unit #: [id number] Loc: [address] [address] Phys: Aki Mtz MD Acct: [id number] Dis Date: Status: ADM IN PHONE #: [phone] Exam Date: 11/27/2018 4155 FAX #: [phone] Reason: Right arm numbness EXAMS: CPT CODE: [id number] MRI BRAIN WO/W CONT 33815 INDICATION: Right arm numbness, tr ansient ischemic [...] three-dimensional maximum inten sity rotational projections. Three-dimensional qwdj-oz-jribvn MR angiograp hy centered at the carotid [...] Signed Report (CONTINUED) FAX: Aki Espitia MD [phone] [place]: St: ADM Name: TORI GREGORY [facility] : 1945 Age/S: 72/M [address] [place] [address] Unit #: [id number] Loc: [address] [address] Phys: Aki Mtz MD Acct: [id number] Dis Date: Status: ADM IN PHONE #: [phone] Exam Date: 07/2018 1509 FAX #: [phone] Reason: Right arm numb ness EXAMS: CPT CODE: [id number] MRI BRAIN WO/W CONT 70 553 <Continued> [...] have a normal course caliber and contour. Esqn-df-lojnwjoa atherosclerotic irregularity along the right carotid bulb [...] Re port (CONTINUED) FAX: Aki Espitia MD [place]: St: ADM Name: TORI GREGORY [facility] [place] : 1945 Age/S: 72/M [address] [place] [address] Unit #: [id number] Loc: [address] [address] Phys: Aki Mtz MD Acct: [id number] Dis Date: Status: ADM IN PHONE #: [phone] Exam Date: 11/27/2018 1509 FAX #: [phone] Reason: Right arm numbness EXAMS: CPT CODE: [id number] MRI BRAIN WO/W CONT 41531 < Continued> along the bilateral cavernous and [...] S: 11/27/2018 (1912) PAGE 3 Signed Report [id number] 17:14:00* Test Item Value Reference Range Interpretation Comments GLUBED (test code = GLUBED) 105 MG/DL 70-110 N Performed by certified shoe sewing machine operator and tender at [facility] [id number] 11:52:00* Test Item Value Reference Range Interpretation Comments GLUBED (test code = GLUBED) 140 MG/DL 70-110 H Performed by certified shoe sewing machine operator and tender at [facility] B-TYPE NATRIURETIC [id number] 09:28:00* Test Item Value Reference Range Interpretation Comments B-TYPE NATRIURETIC PEPTIDE (test code = BNP) 827.3 PG/ML 0-100 H [id number] 09:22:00* Test Item Value Reference Range Interpretation Comments MAGNESIUM (test code = MAG) 1.90 mg/dL 1.8-2.4 N THYROID STIMULATING [id number] 09:22:00* Test Item Value Reference Range Interpretation Comments THYROID STIMULATING HORMONE (test code = TSH) 1.16 0.42-5.4 7 N Results in yogesh- [employer] Units/mL HGBA1C%2018-11-27 08:10:00* Test Item Value Reference Range Interpretation Comments HGBA1C% (test code = HGBA1C%) 7.8 %A1C 4.8-6.0 H [id number] 08:04:00* Test Item Value Reference Range Interpretation Comments GLUBED (test code = GLUBED) 127 MG/DL 70-110 H Performed by certified shoe sewing machine operator and tender at [facility] CBC W/AUTO [id number] 07:13:00* Test Item Value Reference Range Interpretation [...] DIFF REQUIRED (test code = MDIFF) NO [id number] 20:51:00* Test Item Value Reference Range Interpretation Comments GLUBED (test code = GLUBED) 215 MG/DL 70-110 H Performed by certified shoe sewing machine operator and tender at [facility] [id number] 12:29:00* Test Item Value Reference Range Interpretation Comments GLUBED (test code = GLUBED) 140 MG/DL 70-110 H Performed by certified shoe sewing machine operator and tender at [facility] [id number] 06:57:00* Test Item Value Reference Range Interpretation [...] = LDL) 61 mg/dL 0-100 N <100 [id number] NEAR OPTIMAL/ABOVE [id number] [id number] HIGH>UH=456 VERY HIGH*Guidelines provided by the National Cholesterol EducationProgram Adult Treatment Panel III [id number] 03:55:00* Test Item Value Reference Range Interpretation Comments TROPONIN-I (test code = TROPI) 0.052 ng/mL 0.000-0.045 Negative: <= 0.045 Positive: >= 0.046 Correlation with serial results, other cardiac markers andclinical findings is necessary to determine the clinicalsignificance of this result. Results using different methodologies should not be comparedto one another as quantitative results may vary by method. COMMENTS: 3 troponins total (including troponin done in ED)- CT ABD PELVIS [id number] 03:04:00 Name: TORI TRIPLETT [facility] : 1945 Age/S: 72 / M [address] [place] [address] Blvd Unit #: [id number] Loc: [place] [address] Phys: Av Danielle MD Acct: [id number] Dis Date: Status: ADM IN PHONE #: [phone] Exam Date: 11/26/2018 0236 FAX #: [phone] Reason: nausea/vomiting, +UA, elevated WBC count EXAMS: CPT CODE: [id number] CT ABD PELVIS W/CONT 66839 PROCEDURE: CT abdomen and pelvis with contrast [...] Rep ort (CONTINUED) Name: TORI TRIPLETT [facility] : 1945 Age/S: 72 / M [address] [facility] Unit #: [id number] Loc: [place], [place] [address] Phys: Av Danielle MD Acct: [id number] Dis Date: Status: ADM IN PHONE #: [phone] Exam Date: 11/26/2018235 FAX #: [phone] Reason: nausea/vomiting, +UA, elevat ed WBC count EXAMS: CPT CODE: [id number] CT ABD PELVIS W/CONT 46205 <Continued> ADDITIONAL FINDINGS: None. IMPRESSION: 1. Prostatic [...] Bhavya(R) CTDI: DLP: Trnscb Date/Time: 11/26/2018 (030) t.DMM Orig Print D/T: S: 11/26/2018 (0308) CTDI: DLP: PAGE 2 Signed Report - CT ABD PELVIS [id number] 03:04:00 Name: TORI GREGORY [facility] : 1945 Age/S: 72 / M [address] [place] [address] Unit #: [id number] Loc: [place] [address] Phys: Av Danielle MD Acct: [id number] Dis Date: Status: ADM IN PHONE #: [phone] Exam Date: 11/26/2018235 FAX #: [phone] Reason: nausea/vomiting, +UA, elevated WBC count EXAMS: CPT CODE: [id number] CT ABD PELVIS W/CONT 67557 PROCEDURE: CT abdomen and pelvis with contrast [...] Signed Rep ort (CONTINUED) Name: TORI GREGORY [facility] : 1945 Age/S: 72 / M [address] [facility] Unit #: [id number] Loc: [place], [place] [address] Phys: Av Danielle MD Acct: [id number] Dis Date: Status: ADM IN PHONE #: [phone] Exam Date: 11/26/2018 0236 FAX #: [phone] Reason: nausea/vomiting, +UA, elevat ed WBC count EXAMS: CPT CODE: [id number] CT ABD PELVIS W/CONT 20346 <Continued> ADDITIONAL FINDINGS: None. IMPRESSION: 1. Prostatic [...] Daniele Baxter M.D. CC: Av Danielle MD Technologist:Jimena Keane, RT(R) CTDI: DLP: Trnscb Date/Time: 11/26/2018 (303) t.BARBIR.[email or web address] Orig Print D/T: S: 11/26/2018 (307) CTDI: DLP: PAGE 2 Signed Report PROTHROMBIN [id number] 01:27:00* Test Item Value Reference Range Interpretation [...] Infarction (to prevent recurrent infarct). THROMBOPLASTIN TIME [id number] 01:27:00* Test Item Value Reference Range Interpretation Comments THROMBOPLASTIN TIME PARTIAL (test code = PTT) 29.8 Seconds 25.0-39. 5 N Therapeutic Range: 50.4 - 88.3 Seconds Effective 11/12/2018 BASIC METABOLIC [id number] 01:14:00* Test Item Value Reference Range Interpretation [...] CA) 8.9 mg/dL 8.0-10.5 N HEPATIC FUNCTION [id number] 01:14:00* Test Item Value Reference Range Interpretation [...] code = ALKP) 68 IUnit/L 20-125 N [id number] 01:14:00* Test Item Value Reference Range Interpretation Comments LIPASE (test code = LIP) 135 IUnit/L 73-393 N [id number] 01:14:00* Test Item Value Reference Range Interpretation Comments TROPONIN-I (test code = TROPI) 0.043 ng/mL 0.000-0.045 N Negative: <= 0.045 Positive: >= 0.046 Correlation with serial results, other cardiac markers andclinical findings is necessary to determine the clinicalsignificance of this result. Results using different methodologies should not be comparedto one another as quantitative results may vary by method. URINALYSIS [id number] 01:11:00* Test Item Value Reference Range Interpretation [...] SQU) 0-5 /HPF NONE SEEN CBC W/O [id number] 01:01:00* Test Item Value Reference Range Interpretation [...] fL 7.0-9.0 H - XR CHEST 1 [id number] 00:37:00 FAX: Av Danielle MD [phone] [place]: St: REG Name: TORI WILSON [facility] : [birth year] Age/S: 72/M [address] [place] [address] Blvd Unit #: [id number] Loc: [address] [address] Phys: Av Danielle MD Acct: [id number] Dis Date: Status: REG ER PHONE #: [phone] Exam Date: 11/26/2018 0022 FAX #: [phone] Reason: stroke EXAMS: CPT CODE: [id number] XR CHEST 1 V 25717 Chest, single view dated 11/26/2018 . HISTORY: [...] Daniele Baxter M.D. CC: Av Danielle MD Technolo gist: Claudio Zelaya RT(R) Trnscrd Date/Time/B y: 11/26/2018 (0037) : By: Marlin Orig Print D/T: S: 11/26/2018 (00 40) PAGE 1 Signed Report - XR CHEST 1 [id number] 00:37:00 FAX: Av Danielle MD [phone] [place]: St: ADM Name: TORI SOMERS [facility] : [birth year] Age/S: 72/M [address] [place] [address] Blvd Unit #: [id number] Loc: G.[address] [place] [address] Phys: Av Danielle MD Acct: [id number] Dis Date: Status: ADM IN PHONE #: [phone] Exam Date: 11/26/2018 0022 FAX #: [phone] Reason: stroke EXAMS: CPT CODE: [id number] XR CHEST 1 V 43807 Chest, single view dated 11/26/2018 . HISTORY: [...] Daniele Baxter M.D. CC: Av Danielle MD Technolo gist: Claudio Zelaya, RT(R) Trnscrd Date/Time/B y: 11/26/2018 (003) : By: Marlin Orig Print D/T: S: 11/26/2018 (00 40) PAGE 1 Signed Report - CT HEAD/BRAIN W/O [id number] 00:34:00 Name: TORI TRIPLETT [facility] : 1945 Age/S: 72 / M [address] [place] [address] Unit #: [id number] Loc: [place] [address] Phys: Destin Danielle MD Acct: [id number] Di s Date: Status: REG ER PHONE #: [phone] Exam Date: 11/26/2018 0010 FAX #: Reason: nausea/vomiting, dizziness EXAMS: CPT CODE: [id number] CT HEAD/BRAIN W/O CONT 13026 CT head without contrast . CLINICAL HISTORY: [...] Angelic(R) CTDI: DLP: Trnscb Date/Time: 11/26/2018 (003) [email or web address] Orig Print D/T: S: 11/26/2018 (0038) CTDI: DLP: PAGE 1 Signed Report - CT HEAD/BRAIN W/O [id number] 00:34:00 Name: OTRI GREGORY [facility] : 1945 Age/S: 72 / M [address] [place] [address] Blvd Unit #: [id number] Loc: [place] [address] Phys: Av Danielle MD Acct: [id number] Dis Date: Status: ADM IN PHONE #: [phone] Exam Date: 11/26/20189 FAX #: [phone] Reason: nausea/vomiting, dizziness EXAMS: CPT CODE: [id number] CT HEAD/BRAIN W/O CONT 10553 CT head without contrast . CLINICAL HISTORY: [...] 89 MG/DL 70-110 N Performed by certified shoe sewing machine operator and tender at [facility] [id number] 08:03:00* Test Item Value Reference Range Interpretation Comments MAGNESIUM (test code = MAG) 2.40 mg/dL 1.8-2.4 N [id number] 06:23:00* Test Item Value Reference Range Interpretation Comments GLUBED (test code = GLUBED) 128 MG/DL 70-110 H Performed by certified shoe sewing machine operator and tender at [facility] [id number] 21:04:00* Test Item Value Reference Range Interpretation Comments GLUBED (test code = GLUBED) 137 MG/DL 70-110 H Performed by certified shoe sewing machine operator and tender at [facility] [id number] 16:29:00* Test Item Value Reference Range Interpretation Comments GLUBED (test code = GLUBED) 113 MG/DL 70-110 H Performed by certified shoe sewing machine operator and tender at [facility] [id number] 11:05:00* Test Item Value Reference Range Interpretation Comments GLUBED (test code = GLUBED) 162 MG/DL 70-110 H Performed by certified shoe sewing machine operator and tender at [facility] [id number] 06:16:00* Test Item Value Reference Range Interpretation Comments GLUBED (test code = GLUBED) 67 MG/DL 70-110 L Performed by certified shoe sewing machine operator and tender at [facility] [id number] 20:55:00* Test Item Value Reference Range Interpretation Comments GLUBED (test code = GLUBED) 164 MG/DL 70-110 H Performed by certified shoe sewing machine operator and tender at [facility] [id number] 16:19:00* Test Item Value Reference Range Interpretation Comments GLUBED (test code = GLUBED) 79 MG/DL 70-110 N Performed by certified shoe sewing machine operator and tender at [facility] [id number] 11:39:00* Test Item Value Reference Range Interpretation Comments GLUBED (test code = GLUBED) 116 MG/DL 70-110 H Performed by certified shoe sewing machine operator and tender at [facility] COMPREHENSIVE METABOLIC [id number] 08:10:00* Test Item Value Reference Range Interpretation [...] ALKP) 85 IUnit/L 20-125 N CBC W/AUTO [id number] 07:59:00* Test Item Value Reference Range Interpretation [...] DIFF REQUIRED (test code = MDIFF) NO [id number] 05:58:00* Test Item Value Reference Range Interpretation Comments GLUBED (test code = GLUBED) 71 MG/DL 70-110 N Performed by certified shoe sewing machine operator and tender at [facility] [id number] 19:17:00* Test Item Value Reference Range Interpretation Comments GLUBED (test code = GLUBED) 150 MG/DL 70-110 H Performed by certified shoe sewing machine operator and tender at [facility] [id number] 16:47:00* Test Item Value Reference Range Interpretation Comments GLUBED (test code = GLUBED) 202 MG/DL 70-110 H Performed by certified shoe sewing machine operator and tender at [facility] [id number] 16:47:00* Test Item Value Reference Range Interpretation Comments GLUBED (test code = GLUBED) 88 MG/DL 70-110 N Performed by certified shoe sewing machine operator and tender at [facility] [id number] 08:36:00* Test Item Value Reference Range Interpretation Comments GLUBED (test code = GLUBED) 103 MG/DL 70-110 N Performed by certified shoe sewing machine operator and tender at [facility] [id number] 06:48:00* Test Item Value Reference Range Interpretation Comments GLUBED (test code = GLUBED) 60 MG/DL 70-110 L Performed by certified shoe sewing machine operator and tender at [facility] [id number] 19:57:00* Test Item Value Reference Range Interpretation Comments GLUBED (test code = GLUBED) 267 MG/DL 70-110 H Performed by certified shoe sewing machine operator and tender at [facility] [id number] 19:57:00* Test Item Value Reference Range Interpretation Comments GLUBED (test code = GLUBED) 95 MG/DL 70-110 N Performed by certified shoe sewing machine operator and tender at [facility] [id number] 19:57:00* Test Item Value Reference Range Interpretation Comments GLUBED (test code = GLUBED) 107 MG/DL 70-110 N Performed by certified shoe sewing machine operator and tender at [facility] [id number] 07:20:00* Test Item Value Reference Range Interpretation Comments GLUBED (test code = GLUBED) 75 MG/DL 70-110 N Performed by certified shoe sewing machine operator and tender at [facility] [id number] 20:40:00* Test Item Value Reference Range Interpretation Comments GLUBED (test code = GLUBED) 101 MG/DL 70-110 N Performed by certified shoe sewing machine operator and tender at [facility] [id number] 17:32:00* Test Item Value Reference Range Interpretation Comments GLUBED (test code = GLUBED) 103 MG/DL 70-110 N Performed by certified shoe sewing machine operator and tender at [facility] [id number] 11:35:00* Test Item Value Reference Range Interpretation Comments GLUBED (test code = GLUBED) 83 MG/DL 70-110 N Performed by certified shoe sewing machine operator and tender at [facility] [id number] 06:46:00* Test Item Value Reference Range Interpretation Comments GLUBED (test code = GLUBED) 71 MG/DL 70-110 N Performed by certified shoe sewing machine operator and tender at [facility] [id number] 20:44:00* Test Item Value Reference Range Interpretation Comments GLUBED (test code = GLUBED) 88 MG/DL 70-110 N Performed by certified shoe sewing machine operator and tender at [facility] [id number] 16:11:00* Test Item Value Reference Range Interpretation Comments GLUBED (test code = GLUBED) 154 MG/DL 70-110 H Performed by certified shoe sewing machine operator and tender at [facility] [id number] 11:36:00* Test Item Value Reference Range Interpretation Comments GLUBED (test code = GLUBED) 82 MG/DL 70-110 N Performed by certified shoe sewing machine operator and tender at [facility] [id number] 05:52:00* Test Item Value Reference Range Interpretation Comments GLUBED (test code = GLUBED) 98 MG/DL 70-110 N Performed by certified shoe sewing machine operator and tender at [facility] [id number] 20:10:00* Test Item Value Reference Range Interpretation Comments GLUBED (test code = GLUBED) 125 MG/DL 70-110 H Performed by certified shoe sewing machine operator and tender at [facility] [id number] 16:49:00* Test Item Value Reference Range Interpretation Comments GLUBED (test code = GLUBED) 190 MG/DL 70-110 H Performed by certified shoe sewing machine operator and tender at [facility] - XR CHEST 2 [id number] 11:57:00 FAX: Claudio Messer [phone] [place]: [address]: [facility] Age/S: 72/M [address] [place] [address] Blvd Unit #: [id number] Loc: [address] [place] [address], [place] [address] Phys: Claudio Mendoza MD Acct: [id number] Dis Date: Status: ADM IN PHONE #: [phone] Exam Date: 09/04/2018 1126 FAX #: [phone] Reason: FOLLOW PLEURAL EFFUSION (REASSESS) EXAMS: CPT CODE: [id number] XR CHEST 2 V 35589 Clinical Indication: Follow-up on pleural effusion; Comparison: [...] foci or infiltrates. 2. Stable cardiomegaly. SL: [id number] E lectronically Signed by Marcos Fatima on 09/04/2018 at 1157 Reported and signed by: Rj Fatima D.O. CC: Claudio Mendoza MD Technologist: RT Glenys(R) Trnscrd Date/Time/By: 09/04/2018 (1157) : By: Shantelle K34 Orig Print D/T: S: 09/04/2018 (2151) PAGE 1 Signed Report GLUBED 2018-09-04 11:20:00* Test Item Value Reference Range Interpretation Comments GLUBED (test code = GLUBED) 133 MG/DL 70-110 H Performed by certified shoe sewing machine operator and tender at [facility] [id number] 06:15:00* Test Item Value Reference Range Interpretation Comments GLUBED (test code = GLUBED) 117 MG/DL 70-110 H Performed by certified shoe sewing machine operator and tender at [facility] [id number] 19:53:00* Test Item Value Reference Range Interpretation Comments GLUBED (test code = GLUBED) 150 MG/DL 70-110 H Performed by certified shoe sewing machine operator and tender at [facility] [id number] 15:58:00* Test Item Value Reference Range Interpretation Comments GLUBED (test code = GLUBED) 151 MG/DL 70-110 H Performed by certified shoe sewing machine operator and tender at [facility] VITAMIN D 1,59-[id number] 11:20:00* Test Item Value Reference Range Interpretation Comments VITAMIN D 1,25-DIHYDROXY (test code = FGMP440) 14.2 pg/mL 19.9-79 .3 A Performed At: [address] [id number] Sanjai MD Ph:[phone] [id number] 10:57:00* Test Item Value Reference Range Interpretation Comments GLUBED (test code = GLUBED) 178 MG/DL 70-110 H Performed by certified shoe sewing machine operator and tender at [facility] [id number] 10:57:00* Test Item Value Reference Range Interpretation Comments GLUBED (test code = GLUBED) 118 MG/DL 70-110 H Performed by certified shoe sewing machine operator and tender at [facility] [id number] 19:57:00* Test Item Value Reference Range Interpretation Comments GLUBED (test code = GLUBED) 182 MG/DL 70-110 H Performed by certified shoe sewing machine operator and tender at [facility] [id number] 17:25:00* Test Item Value Reference Range Interpretation Comments GLUBED (test code = GLUBED) 171 MG/DL 70-110 H Performed by certified shoe sewing machine operator and tender at [facility] [id number] 11:32:00* Test Item Value Reference Range Interpretation Comments GLUBED (test code = GLUBED) 209 MG/DL 70-110 H Performed by certified shoe sewing machine operator and tender at [facility] [id number] 06:36:00* Test Item Value Reference Range Interpretation Comments GLUBED (test code = GLUBED) 111 MG/DL 70-110 H Performed by certified shoe sewing machine operator and tender at [facility] [id number] 20:17:00* Test Item Value Reference Range Interpretation Comments GLUBED (test code = GLUBED) 242 MG/DL 70-110 H Performed by certified shoe sewing machine operator and tender at [facility] [id number] 16:46:00* Test Item Value Reference Range Interpretation Comments GLUBED (test code = GLUBED) 281 MG/DL 70-110 H Performed by certified shoe sewing machine operator and tender at [facility] [id number] 11:23:00* Test Item Value Reference Range Interpretation Comments GLUBED (test code = GLUBED) 207 MG/DL 70-110 H Performed by certified shoe sewing machine operator and tender at [facility] [id number] 07:14:00* Test Item Value Reference Range Interpretation Comments GLUBED (test code = GLUBED) 160 MG/DL 70-110 H Performed by certified shoe sewing machine operator and tender at [facility] [id number] 05:58:00* Test Item Value Reference Range Interpretation Comments GLUBED (test code = GLUBED) 162 MG/DL 70-110 H Performed by certified shoe sewing machine operator and tender at [facility] [id number] 21:19:00* Test Item Value Reference Range Interpretation Comments GLUBED (test code = GLUBED) 197 MG/DL 70-110 H Performed by certified shoe sewing machine operator and tender at [facility] BASIC METABOLIC [id number] 17:01:00* Test Item Value Reference Range Interpretation [...] CA) 8.8 mg/dL 8.0-10.5 N COMPREHENSIVE METABOLIC [id number] 17:01:00* Test Item Value Reference Range Interpretation [...] ALKP) 78 IUnit/L 20-125 N BASIC METABOLIC [id number] 16:59:00* Test Item Value Reference Range Interpretation [...] CA) 8.8 mg/dL 8.0-10.5 N COMPREHENSIVE METABOLIC [id number] 16:59:00* Test Item Value Reference Range Interpretation Comments TOTAL PROTEIN (test code = PROT) g/dL 6.4-8.2 ALBUMIN (test code = ALB) 2.50 g/dL 3.4-5.0 L BILIRUBIN TOTAL (test code = BILT) mg/dL 0.0-1.0 SGOT/AST (test code = AST) 17 IUnit/L 15-37 N SGPT/ALT (test code = ALT) 54 IUnit/L 15-65 N ALKALINE PHOSPHATASE TOTAL (test code = ALKP) IUnit/L 20-125 [id number] 16:38:00* Test Item Value Reference Range Interpretation Comments GLUBED (test code = GLUBED) 236 MG/DL 70-110 H Performed by certified shoe sewing machine operator and tender at [facility] [id number] 12:24:00* Test Item Value Reference Range Interpretation Comments GLUBED (test code = GLUBED) 207 MG/DL 70-110 H Performed by certified shoe sewing machine operator and tender at [facility] [id number] 06:23:00* Test Item Value Reference Range Interpretation Comments GLUBED (test code = GLUBED) 176 MG/DL 70-110 H Performed by certified shoe sewing machine operator and tender at [facility] [id number] 21:12:00* Test Item Value Reference Range Interpretation Comments GLUBED (test code = GLUBED) 235 MG/DL 70-110 H Performed by certified shoe sewing machine operator and tender at [facility] [id number] 16:46:00* Test Item Value Reference Range Interpretation Comments GLUBED (test code = GLUBED) 312 MG/DL 70-110 H Performed by certified shoe sewing machine operator and tender at [facility] [id number] 12:28:00* Test Item Value Reference Range Interpretation Comments GLUBED (test code = GLUBED) 230 MG/DL 70-110 H Performed by certified shoe sewing machine operator and tender at [facility] VITAMIN [id number] 09:27:00* Test Item Value Reference Range Interpretation Comments VITAMIN B12 (test code = VITB12) 4724 pg/mL 193-986 H FOLIC [id number] 09:27:00* Test Item Value Reference Range Interpretation Comments FOLIC ACID (test code = FOL) 14.9 ng/mL 3.1-17.5 N THYROID STIMULATING [id number] 09:27:00* Test Item Value Reference Range Interpretation Comments THYROID STIMULATING HORMONE (test code = TSH) 1.34 0.42-5.4 7 N Results in yogesh- International Units/mL [id number] 07:17:00* Test Item Value Reference Range Interpretation Comments GLUBED (test code = GLUBED) 193 MG/DL 70-110 H Performed by certified shoe sewing machine operator and tender at [facility] [id number] 21:21:00* Test Item Value Reference Range Interpretation Comments GLUBED (test code = GLUBED) 285 MG/DL 70-110 H Performed by certified shoe sewing machine operator and tender at [facility] [id number] 16:42:00* Test Item Value Reference Range Interpretation Comments GLUBED (test code = GLUBED) 285 MG/DL 70-110 H Performed by certified shoe sewing machine operator and tender at [facility] [id number] 15:10:00* Test Item Value Reference Range Interpretation Comments SGOT/AST (test code = AST) 23 IUnit/L 15-37 N COMMENTS: blood in labSGPT/[id number] 15:10:00* Test Item Value Reference Range Interpretation Comments SGPT/ALT (test code = ALT) 91 IUnit/L 15-65 H COMMENTS: blood in lab- XR CHEST 1 [id number] 12:48:00 FAX: Jaja GuillermoShalom Juan [phone] [place]: St: ADM FAX: Candie Reinoso (Beba Name: TRIPLETTMily REDDLaryELVIABASIL [facility] : 1945 Age/S: 72/M [address] [place] [address] Blvd Unit #: [id number] Loc: G.33[address] [facility] [place] [address] Phys: Candie Reinoso (Beckie) DRIVING INSTRUCTOR Acct: [id number] Dis Date: Status: ADM IN PHONE #: [phone] Exam Date: 08/29/2018 1125 FAX #: [phone] Reason: f/u pleural effusion. s/p cabg EXAMS: CPT CODE: [id number] XR CHEST 1 V 90311 CHEST 1 VIEW: 08/29/2018 COMPARISON: August 26 [...] at 1248 Reported and signed by: Cedrick Cevrantes M.D. CC: Shalom Guillermo MD; Candie Reinoso NP (Christy) Technologist: Rae Solorzano, RT(R); Grecia Baird, RT(R ) Trnscrd Date/Time/By: 08/29/2018 (8735) : By: KortneyAJ13 O rig Print D/T: S: 08/29/2018 (4167) PAGE 1 Signed Report [id number] 12:00:00 * Test Item Value Reference Range Interpretation Comments GLUBED (test code = GLUBED) 304 MG/DL 70-110 H Performed by certified shoe sewing machine operator and tender at [facility] [id number] 08:34:00* Test Item Value Reference Range Interpretation Comments GLUBED (test code = GLUBED) 206 MG/DL 70-110 H Performed by certified shoe sewing machine operator and tender at [facility] BASIC METABOLIC [id number] 04:21:00* Test Item Value Reference Range Interpretation [...] code = CA) 9.2 mg/dL 8.0-10.5 N [id number] 04:21:00* Test Item Value Reference Range Interpretation Comments MAGNESIUM (test code = MAG) 2.10 mg/dL 1.8-2.4 N CBC W/AUTO [id number] 04:09:00* Test Item Value Reference Range Interpretation [...] DIFF REQUIRED (test code = MDIFF) NO [id number] 21:41:00* Test Item Value Reference Range Interpretation Comments GLUBED (test code = GLUBED) 230 MG/DL 70-110 H Performed by certified shoe sewing machine operator and tender at [facility] [id number] 16:36:00* Test Item Value Reference Range Interpretation Comments GLUBED (test code = GLUBED) 315 MG/DL 70-110 H Performed by certified shoe sewing machine operator and tender at [facility] [id number] 11:10:00* Test Item Value Reference Range Interpretation Comments GLUBED (test code = GLUBED) 287 MG/DL 70-110 H Performed by certified shoe sewing machine operator and tender at [facility] [id number] 08:15:00* Test Item Value Reference Range Interpretation Comments GLUBED (test code = GLUBED) 170 MG/DL 70-110 H Performed by certified shoe sewing machine operator and tender at [facility] BASIC METABOLIC [id number] 04:34:00* Test Item Value Reference Range Interpretation [...] code = CA) 9.0 mg/dL 8.0-10.5 N [id number] 20:25:00* Test Item Value Reference Range Interpretation Comments GLUBED (test code = GLUBED) 289 MG/DL 70-110 H Performed by certified shoe sewing machine operator and tender at [facility] [id number] 17:04:00* Test Item Value Reference Range Interpretation Comments LINDSAY (test code = GLUBED) 246 MG/DL 70-110 H Performed by certified shoe sewing machine operator and tender at [facility] - CT CHEST W/O [id number] 14:11:00 Name: TORI GREGORY [facility] : 1945 Age/S: 72 / M [address] [place] [address] Blvd Unit #: [id number] Loc: [place] [address] Phys: ReinosoOusmaneCandie Anh (Beckie) DRIVING INSTRUCTOR Acct: [id number] Dis Date: Status: ADM IN PHONE #: [phone] Exam Date: 08/27/2018 1320 FAX #: [phone] Reason: F/U PLEURAL EFFUSION. EVALUATE FOR POSS THORACO EXAMS: CPT CODE: [id number] CT CHEST W/O CONTRAST 12233 EXAM: CT CHEST WITHOUT CONTRAST DATE: 08/27/2018 [...] 1 Signed Report (CONTINUED) Name: TORI GREGORY [facility] : 1945 Age/S: 72 / M [address] [place] [address] Unit #: [id number] Loc: [place] [address] Phys: Maribel Reinosoh (Beckie) DRIVING INSTRUCTOR Acct: [id number] Di s Date: Status: ADM IN PHONE #: Exam Date: 08/27/2018 1320 FAX #: [phone] Reason: F/U PLEURAL EFFUSION. EVALUATE FOR POSS THORACO EXAMS: CPT CODE: [id number] CT CHEST W/O CONTRAST 45814 <Continued> IMPRESSION: 1. Persistent moderate atelectatic changes in the left lower lobe. Improved aeration of the right lung base compared to prior examination. Unchanged mild to moderate left pleural effusion. Interval decrease in small right pleural effusion. Superimposed bilateral lower lobes infectious process cannot be excluded. 2. Postsurgical changes with some fluid within the anterior mediastinum. SL: [id number] at 1411 Reported and signed by: Rachel Glaser D.O. CC: Shalom Guillermo MD; Candie Reinoso NP (Christy) Technologist:RT Tevin(R)(CT) CTDI: DLP: Trnscb Da te/Time: 08/27/2018 (1411) t.SDR.[id number] Orig Print D/T: S: 0 08/27/2018 (1415) CTDI: DLP: PAGE 2 Signed Report [id number] 12:43:00* Test Item Value Reference Range Interpretation Comments GLUBED (test code = GLUBED) 310 MG/DL 70-110 H Performed by certified shoe sewing machine operator and tender at [facility] [id number] 09:02:00* Test Item Value Reference Range Interpretation Comments GLUBED (test code = GLUBED) 172 MG/DL 70-110 H Performed by certified shoe sewing machine operator and tender at [facility] FLUID [id number] 04:17:00* Test Item Value Reference Range Interpretation [...] DIAGNOSIS :NEW ONSET CONGESTIVE HEART FAILUREPLEURAL FLUIDFLUID [id number] 04:17:00* Test Item Value Reference Range Interpretation [...] DIAGNOSIS :NEW ONSET CONGESTIVE HEART FAILUREPLEURAL FLUIDFLUID [id number] 04:17:00* Test Item Value Reference Range Interpretation [...] CA) 8.6 mg/dL 8.0-10.5 N HEPATIC FUNCTION [id number] 04:03:00* Test Item Value Reference Range Interpretation [...] ALKP) 75 IUnit/L 20-125 N CBC W/AUTO [id number] 03:49:00* Test Item Value Reference Range Interpretation [...] DIFF REQUIRED (test code = MDIFF) NO [id number] 21:52:00* Test Item Value Reference Range Interpretation Comments GLUBED (test code = GLUBED) 387 MG/DL 70-110 H Performed by certified shoe sewing machine operator and tender at [facility] [id number] 17:00:00* Test Item Value Reference Range Interpretation Comments GLUBED (test code = GLUBED) 250 MG/DL 70-110 H Performed by certified shoe sewing machine operator and tender at [facility] - XR CHEST 1 [id number] 15:29:00 FAX: Shalom Lisa I [phone] [place]: St: [facility] FAX: Bandar Storm [phone] Name: TRIPLETT MIAELVIABASIL [facility] : 1945 Age/S: 72/M [address] [place] [address] Unit #: [id number] Loc: G.[address] [place] [address] Phys: Bandar Rausch MD Acct: [id number] Dis Date: Status: ADM IN PHONE #: [phone] Exam Date: 08/26/2018 1524 FAX #: [phone] Reason: Post tap on right EXAMS: CPT CODE: [id number] XR CHEST 1 V 84067 CHEST, SINGLE VIEW HISTORY: Right pleural effusion, [...] MD Technologist: Jolie Grier, RT(R), RTT Tr [facility] [place] Date/Time/By: 08/26/2018 (1529) : By: Shilpi Orig Print D/T: S: 08/26/2018 (1455) PAGE 1 Alejandra d Report [id number] 11:31:00* Test Item Value Reference Range Interpretation Comments GLUBED (test code = GLUBED) 316 MG/DL 70-110 H Performed by certified shoe sewing machine operator and tender at [facility] [id number] 08:11:00* Test Item Value Reference Range Interpretation Comments GLUBED (test code = GLUBED) 176 MG/DL 70-110 H Performed by certified shoe sewing machine operator and tender at [facility] BASIC METABOLIC [id number] 04:40:00* Test Item Value Reference Range Interpretation [...] CA) 8.7 mg/dL 8.0-10.5 N HEPATIC FUNCTION [id number] 04:40:00* Test Item Value Reference Range Interpretation [...] ALKP) 78 IUnit/L 20-125 N CBC W/AUTO [id number] 04:22:00* Test Item Value Reference Range Interpretation [...] DIFF REQUIRED (test code = MDIFF) NO [id number] 20:17:00* Test Item Value Reference Range Interpretation Comments GLUBED (test code = GLUBED) 201 MG/DL 70-110 H Performed by certified shoe sewing machine operator and tender at [facility] [id number] 17:11:00* Test Item Value Reference Range Interpretation Comments GLUBED (test code = GLUBED) 329 MG/DL 70-110 H Performed by certified shoe sewing machine operator and tender at [facility] [id number] 11:54:00* Test Item Value Reference Range Interpretation Comments GLUBED (test code = GLUBED) 199 MG/DL 70-110 H Performed by certified shoe sewing machine operator and tender at [facility] [id number] 07:56:00* Test Item Value Reference Range Interpretation Comments GLUBED (test code = GLUBED) 169 MG/DL 70-110 H Performed by certified shoe sewing machine operator and tender at [facility] BASIC METABOLIC [id number] 04:30:00* Test Item Value Reference Range Interpretation [...] CA) 8.2 mg/dL 8.0-10.5 N HEPATIC FUNCTION [id number] 04:30:00* Test Item Value Reference Range Interpretation [...] ALKP) 82 IUnit/L 20-125 N CBC W/AUTO [id number] 04:05:00* Test Item Value Reference Range Interpretation [...] DIFF REQUIRED (test code = MDIFF) NO [id number] 20:42:00* Test Item Value Reference Range Interpretation Comments GLUBED (test code = GLUBED) 225 MG/DL 70-110 H Performed by certified shoe sewing machine operator and tender at [facility] [id number] 16:57:00* Test Item Value Reference Range Interpretation Comments GLUBED (test code = GLUBED) 247 MG/DL 70-110 H Performed by certified shoe sewing machine operator and tender at [facility] ANTINUCLEAR ANTIBODIES [id number] 16:08:00* Test Item Value Reference Range Interpretation Comments COLE SCREEN (test code = ANASCR) Positive () A Negative <1:80 Borderline 1:80 Positive >1:80 ACUTE HEPATITIS [id number] 16:08:00* Test Item Value Reference Range Interpretation Comments AB HEPATITIS A IGM (test code = HAVMAB) NON REACTIVE INDEX NON REAC T. AG HEPATITIS B SURFACE (test code = HBSAG) NON REACTIVE INDEX NonRe active AB HEPATITIS B CORE IGM (test code = HBCMAB) NON REACTIVE INDEX NON REACT. AB HEPATITIS C (test code = HCVAB) NON REACTIVE INDEX NON REACT. ANTINUCLEAR ANTIBODIES [id number] 16:08:00* Test Item Value Reference Range Interpretation [...] titers Nucleosomes, Histones Drug-induced SLE Speckled Sm, CUPOLA MELTING SUPERVISOR, SCL-70, SLE,MCTD,PSS (diffuse form), SS-A/SS-B Sjogrens Nucleolar SCL-70, PM-1/SCL High titers Scleroderma, PM/DM Centromere Centromere PSS (limited form) w/Crest syndrome variable Nuclear Dot Sp100,u47-qteoxd Primary Biliary Cirrhosis Nuclear GP210, Primary Biliary CirrhosisMembrane mana A,B,C Performed At: [facility] [id number] Cortes Germain MD Ph:[phone] reported result: Edited by: SUSAN on 08/24/18:58515008/24/18 1608: COLE COMMENT previously reported as: ACUTE HEPATITIS [id number] 16:08:00* Test Item Value Reference Range Interpretation Comments AB HEPATITIS A IGM (test code = HAVMAB) NON REACTIVE INDEX NON REAC T. AG HEPATITIS B SURFACE (test code = HBSAG) NON REACTIVE INDEX NonRe active AB HEPATITIS B CORE IGM (test code = HBCMAB) NON REACTIVE INDEX NON REACT. AB HEPATITIS C (test code = HCVAB) NON REACTIVE INDEX NON REACT. [id number] 12:08:00* Test Item Value Reference Range Interpretation Comments GLUBED (test code = GLUBED) 304 MG/DL 70-110 H Performed by certified shoe sewing machine operator and tender at [facility] [id number] 08:37:00* Test Item Value Reference Range Interpretation Comments GLUBED (test code = GLUBED) 147 MG/DL 70-110 H Performed by certified shoe sewing machine operator and tender at [facility] BASIC METABOLIC [id number] 05:38:00* Test Item Value Reference Range Interpretation [...] CA) 7.8 mg/dL 8.0-10.5 L HEPATIC FUNCTION [id number] 05:38:00* Test Item Value Reference Range Interpretation [...] = ALKP) 86 IUnit/L 20-125 N PROTHROMBIN [id number] 05:26:00* Test Item Value Reference Range Interpretation [...] Infarction (to prevent recurrent infarct). THROMBOPLASTIN TIME [id number] 05:26:00* Test Item Value Reference Range Interpretation Comments THROMBOPLASTIN TIME PARTIAL (test code = PTT) 25.8 Seconds 25.0-39. 5 N Therapeutic Range: 61.8-83.8 Sec Effective 08/27/2013 CBC W/AUTO [id number] 05:09:00* Test Item Value Reference Range Interpretation [...] DIFF REQUIRED (test code = MDIFF) NO [id number] 19:53:00* Test Item Value Reference Range Interpretation Comments GLUBED (test code = GLUBED) 324 MG/DL 70-110 H Performed by certified shoe sewing machine operator and tender at [facility] [id number] 16:34:00* Test Item Value Reference Range Interpretation Comments GLUBED (test code = GLUBED) 233 MG/DL 70-110 H Performed by certified shoe sewing machine operator and tender at [facility] [id number] 13:28:00* Test Item Value Reference Range Interpretation Comments GLUBED (test code = GLUBED) 222 MG/DL 70-110 H Performed by certified shoe sewing machine operator and tender at [facility] [id number] 08:23:00* Test Item Value Reference Range Interpretation Comments GLUBED (test code = GLUBED) 152 MG/DL 70-110 H Performed by certified shoe sewing machine operator and tender at [facility] BASIC METABOLIC [id number] 07:39:00* Test Item Value Reference Range Interpretation [...] CA) 7.9 mg/dL 8.0-10.5 L HEPATIC FUNCTION [id number] 07:39:00* Test Item Value Reference Range Interpretation [...] code = ALKP) 102 IUnit/L 20-125 N [id number] 07:39:00* Test Item Value Reference Range Interpretation Comments MAGNESIUM (test code = MAG) 2.30 mg/dL 1.8-2.4 N CBC W/AUTO [id number] 07:39:00* Test Item Value Reference Range Interpretation [...] DIFF REQUIRED (test code = MDIFF) NO [id number] 22:47:00* Test Item Value Reference Range Interpretation Comments GLUBED (test code = GLUBED) 225 MG/DL 70-110 H Performed by certified shoe sewing machine operator and tender at [facility] - CT CHEST W/O [id number] 18:42:00 Name: TORI GREGORY [facility] : 1945 Age/S: 72 / M [address] [place] [address] Blvd Unit #: [id number] Loc: [place] [address] Phys: Cooper Evanscomfort DRIVING INSTRUCTOR Acct: [id number] Dis Date: Status: ADM IN PHONE #: [phone] Exam Date: 08/22/2018 175 FAX #: [phone] Reason: EVAL FOR DEGREE OF EVAL. OF PLEURAL EFFUSION EXAMS: CPT CODE: [id number] CT CHEST W/O CONTRAST [address]7650 PROCEDURE: CT CHEST WITHOUT CONTRAST INDICATION: 72 [...] STEVIE PAGE 1 Signed Report (CONTINUED) Name: LALO LAURENAbel [facility] : 1945 Age/S: 72 / M [address] [place] [address] Blvd Unit #: [id number] L oc: [place] [address] Phys: Mary Jo Evans NP Acct: [id number] Dis Date: Status: ADM IN PHONE #: [phone] Exam Date: 08/22/2018 1758 FAX #: [phone] Rosalva son: EVAL FOR DEGREE OF EVAL. OF PLEURAL EFFUSION EXAMS: CPT CODE: [id number] CT CHEST W/O CONTRAST 18107 <Continued> at 1842 Reported and signed by: Ben Adhikari M.D. CC: Mary Jo Evans NP; Shalom Guillermo MD Technologist:Marito Gordon, RT(R)(CT) CTDI: DLP: Trnscb Date/Time: 08/22/2018 (1841) KortneyJH8 Orig Print D/T: S: 08/22/2018 (1844) CTDI: DLP: PAGE 2 Signed Report [id number] 17:09:00* Test Item Value Reference Range Interpretation Comments GLUBED (test code = GLUBED) 236 MG/DL 70-110 H Performed by certified shoe sewing machine operator and tender at [facility] [id number] 11:44:00* Test Item Value Reference Range Interpretation Comments GLUBED (test code = GLUBED) 238 MG/DL 70-110 H Performed by certified shoe sewing machine operator and tender at [facility] [id number] 11:35:00* Test Item Value Reference Range Interpretation Comments GLUBED (test code = GLUBED) 186 MG/DL 70-110 H Performed by certified shoe sewing machine operator and tender at [facility] - US ABDOMEN [id number] 09:19:00 Name: TORI GREGORY [facility] : 1945 Age/S: 72 / M [address] [place], [place] [address]vd Unit #: [id number] Loc: [place] [address] Phys: Sundar JiP Acct: [id number] Dis Date: Status: ADM IN PHONE #: [phone] Exam Date: 08/22/2018 0846 FAX #: [phone] Reason: elevated LFTs EXAMS: CPT CODE: [id number] ABDOMEN [facility] [address] PROCEDURE: ABDOMINAL ULTRASOUND INDICATION: 72-year-old male with [...] bowel gas. 4. Right pleural effusion. SL: [id number] at 0919 Reported and signed by : Nallely Sunshine M.D. PAGE 1 Signed Report (CONTINUED) Name: TORI GREGORY [facility] : 1945 Age/S: 72 / M [address] [place], [place] [address]vd Unit #: [id number] Loc: [place] [address] Phys: Sundar JiP Acc t: [id number] Dis Date: Status: ADM IN PHONE #: [phone] Exam Date: 08/22/2018 0846 FAX #: [phone] Reason: elevated LFTs EXAMS: CPT CODE: [id number] US ABDOMEN LTD 91470 <Continued> CC: Sundar Ji; Shalom Guillermo MD Technologist: Velia Maza RDMS(Lucho)(OB) Trnscb Date/Time: 08/22/2018 (918) t.SDR.RH17 Or ig Print D/T: S: 08/22/2018 (921) Probe: PAGE 2 Signed Report HEPATIC FUNCTION [id number] 08:53:00* Test Item Value Reference Range Interpretation [...] IUnit/L 20-125 N - XR CHEST 1 [id number] 07:31:00 FAX: Shalom Lisa I [phone] [place]: St: ADM FAX: Candie Reinoso (Beba Name: TORI GREGORY [facility] : 1945 Age/S: 72/M [address] [place] [address] Unit #: [id number] Loc: [address] [place] [address] Phys: Candie Reinoso BURT (Christy) Acct: [id number] Dis Date: Status: ADM IN PHONE #: [phone] Exam Date: 08/22/2018 0553 FAX #: [phone] Reason: Cardiac Surgery Post Op EXAMS: CPT CODE: [id number] XR CHEST 1 V 74054 - XR CHEST 1 V 08/22/2018 5:00 [...] chest radiograph from the prior day. SL: HEIDYH at 0781 Reported and signed by: Ben Mendoza M.D. CC: Shalom Guillermo MD; Candie Reinoso NP (Christy) Technologist: Milton Kuhn, RT(R); Maine Dash RT(R) Trnscrd Date/Time/By: 9 (0731) : By: KortneyJY5 Orig Print D/T: S: 08/22/2018 (0761) PAGE 1 Signed Report CBC W/AUTO [id number] 05:16:00* Test Item Value Reference Range Interpretation [...] NO COMMENTS: Daily while on HeparinCOMPREHENSIVE METABOLIC [id number] 05:16:00 * Test Item Value Reference Range [...] code = ALKP) 111 IUnit/L 20-125 N [id number] 05:16:00* Test Item Value Reference Range Interpretation Comments MAGNESIUM (test code = MAG) 2.40 mg/dL 1.8-2.4 N [id number] 21:08:00* Test Item Value Reference Range Interpretation Comments GLUBED (test code = GLUBED) 200 MG/DL 70-110 H Performed by certified shoe sewing machine operator and tender at [facility] [id number] 18:41:00* Test Item Value Reference Range Interpretation Comments GLUBED (test code = GLUBED) 269 MG/DL 70-110 H Performed by certified shoe sewing machine operator and tender at [facility] ANTINUCLEAR ANTIBODIES [id number] 15:18:00* Test Item Value Reference Range Interpretation Comments COLE SCREEN (test code = ANASCR) ACUTE HEPATITIS [id number] 15:18:00* Test Item Value Reference Range Interpretation Comments AB HEPATITIS A IGM (test code = HAVMAB) NON REACTIVE INDEX NON REAC T. AG HEPATITIS B SURFACE (test code = HBSAG) NON REACTIVE INDEX NonRe active AB HEPATITIS B CORE IGM (test code = HBCMAB) NON REACTIVE INDEX NON REACT. AB HEPATITIS C (test code = HCVAB) NON REACTIVE INDEX NON REACT. ANTINUCLEAR ANTIBODIES [id number] 15:16:00* Test Item Value Reference Range Interpretation Comments COLE SCREEN (test code = ANASCR) ACUTE HEPATITIS [id number] 15:16:00* Test Item Value Reference Range Interpretation Comments AB HEPATITIS A IGM (test code = HAVMAB) INDEX NON REACT. AG HEPATITIS B SURFACE (test code = HBSAG) NON REACTIVE INDEX NonRe active AB HEPATITIS B CORE IGM (test code = HBCMAB) NON REACTIVE INDEX NON REACT. AB HEPATITIS C (test code = HCVAB) NON REACTIVE INDEX NON REACT. ANTINUCLEAR ANTIBODIES [id number] 15:15:00* Test Item Value Reference Range Interpretation Comments COLE SCREEN (test code = ANASCR) ACUTE HEPATITIS [id number] 15:15:00* Test Item Value Reference Range Interpretation Comments AB HEPATITIS A IGM (test code = HAVMAB) INDEX NON REACT. AG HEPATITIS B SURFACE (test code = HBSAG) NON REACTIVE INDEX NonRe active AB HEPATITIS B CORE IGM (test code = HBCMAB) INDEX NON REACT . AB HEPATITIS C (test code = HCVAB) NON REACTIVE INDEX NON REACT. ANTINUCLEAR ANTIBODIES [id number] 14:54:00* Test Item Value Reference Range Interpretation Comments COLE SCREEN (test code = ANASCR) ACUTE HEPATITIS [id number] 14:54:00* Test Item Value Reference Range Interpretation Comments AB HEPATITIS A IGM (test code = HAVMAB) INDEX NON REACT. AG HEPATITIS B SURFACE (test code = HBSAG) NON REACTIVE INDEX NonRe active AB HEPATITIS B CORE IGM (test code = HBCMAB) INDEX NON REACT . AB HEPATITIS C (test code = HCVAB) INDEX NON REACT. [id number] 14:24:00* Test Item Value Reference Range Interpretation Comments ACETAMINOPHEN (test code = ACET) < 2 ug/mL 10-30 L - CT ABD PELVIS W/O [id number] 13:28:00 Name: TORI GREGORY [facility] : 1945 Age/S: 72 / M [address] [place] [address] Blvd Unit #: [id number] Loc: [place] [address] Phys: Mary Jo Evans DRIVING INSTRUCTOR Acct: [id number] Dis Date: Status: ADM IN PHONE #: [phone] Exam Date: 08/21/2018 1235 FAX #: [phone] Reason: elevated lft and abd pain EXAMS: CPT CODE: [id number] CT ABD PELVIS W/O CONT 72310 EXAM: CT ABDOMEN/PELVIS WITHOUT CONTRAST HISTORY: 72 [...] Signed Report (CONTINUED) Name: TORI GUERRERO CH [facility] : 1945 Age/ S: 72 / M [address] [place] [address] Blvd Unit #: [id number] Loc: [place] [address] Phys: Mary Jo Evans NP Acct: [id number] Dis Date: Status: ADM IN PHONE #: [phone] E xam Date: 08/21/2018 1235 FAX #: [phone] Reason: elevated lft and abd pain EXAMS: CPT CODE: [id number] CT ABD PELVIS W/O CONT 39994 <Continued> RETROPERITONEUM: The aorta is normal in [...] fat-containing left inguinal hernia. 5. Prostatomegaly. SL: [id number] at 1328 Reported and signed by: Nallely Sunshine M.D. CC: Mary Jo Evans DRIVING INSTRUCTOR; Shalom Guillermo MD Technologist:Omero Weir, RT(R) CTDI: DLP: Trnscb Date/Time: 08/21/2018 (1328) [email or web address] Orig Print D/T: S: 08/21/2018 (0269) CTDI: DLP: PAGE 2 Signed Report HEPATIC FUNCTION [id number] 10:44:00* Test Item Value Reference Range Interpretation [...] code = ALKP) 131 IUnit/L 20-125 H [id number] 09:10:00* Test Item Value Reference Range Interpretation Comments GLUBED (test code = GLUBED) 228 MG/DL 70-110 H Performed by certified shoe sewing machine operator and tender at [facility] - XR CHEST 1 [id number] 07:37:00 FAX: Shalom Lisa I [phone] [place]: St: ADM FAX: Candie ReinosoC Name: TORI GREGORY [facility] : 1945 Age/S: 72/M [address] [place] [address] Unit #: [id number] Loc: G.3362 [place] [address] Phys: Candie Reinoso NP (Christy) Acct: [id number] Dis Date: Status: ADM IN PHONE #: [phone] Exam Date: 08/21/2018 05 FAX #: [phone] Reason: Cardiac Surgery Post Op EXAMS: CPT CODE: [id number] XR CHEST 1 V 51022 - XR CHEST 1 V 08/21/2018 5:00 [...] not definitively seen, may be outside the jyqxg-ze-roua or removed. 2. Bilateral moderate layering pleural effusions with bibasilar hazy densities. 3. Ca rdiomegaly. SL: CY-H * * at 0737 Reported and signed by: Ben Mendoza M.D. CC: Shalom Guillermo MD; Marcell Reinoso NP (Christy) Technologist: Milton Kuhn, RT(R); Dilcia chua RT(R) Trnscrd Date/Time/By: 08/21/2018 (0737) : By: KortneyJY5 Orig Print D/T: S: 08/21/2018 (0741) PAGE 1 Signed Report BASIC METABOLIC [id number] 04:39:00* Test Item Value Reference Range Interpretation [...] code = CA) 7.4 mg/dL 8.0-10.5 L [id number] 04:39:00* Test Item Value Reference Range Interpretation Comments MAGNESIUM (test code = MAG) 2.70 mg/dL 1.8-2.4 H CBC W/AUTO [id number] 04:19:00* Test Item Value Reference Range Interpretation [...] MDIFF) NO COMMENTS: Daily while on HeparinURINALYSIS [id number] 01:22:00* Test Item Value Reference Range Interpretation [...] MUCU) 1+ /LPF NONE SEEN UA CULT [id number] 01:22:00* Test Item Value Reference Range Interpretation Comments UA CULTURE NEEDED? (test code = UACULT) NO, WBC<10 Criteria Culture Chk Criteria not met, Urine Culture cancelled. COMPREHENSIVE METABOLIC [id number] 00:42:00* Test Item Value Reference Range Interpretation [...] ALKP) 133 IUnit/L 20-125 H ARTERIAL BLOOD [id number] 00:19:00* Test Item Value Reference Range Interpretation [...] = HOLLAND) Room Air Performed by certified shoe sewing machine operator and tender at [facility] ABG TEMPERATURE (test code = TEMPA) 98.6 F ABG SITE (test code = SITEA) R Rad TCO2 ARTERIAL (test code = TCO2A) 22 CBC W/AUTO [id number] 00:14:00* Test Item Value Reference Range Interpretation [...] DIFF REQUIRED (test code = MDIFF) NO [id number] 20:51:00* Test Item Value Reference Range Interpretation Comments GLUBED (test code = GLUBED) 279 MG/DL 70-110 H Performed by certified shoe sewing machine operator and tender at [facility] [id number] 17:42:00* Test Item Value Reference Range Interpretation Comments MAGNESIUM (test code = MAG) 2.50 mg/dL 1.8-2.4 H [id number] 17:26:00* Test Item Value Reference Range Interpretation Comments GLUBED (test code = GLUBED) 199 MG/DL 70-110 H Performed by certified shoe sewing machine operator and tender at [facility] - XR ABDOMEN 1V (KUB)2018-08-20 14:10:00 FAX: Shalom Lisa I [phone] [place]: St: [facility] FAX: Courtney Laws MD [phone] Name: TRIPLETT MIAELVIABASIL [facility] : 1945 Age/S: 72/M [address] [place] [address] Unit #: [id number] Loc: G.[address] [place] [address] Phys: Courtney Correa MD Acct: [id number] Dis Date: Status: ADM IN PHONE #: [phone] Exam Date: 08/20/2018 1323 FAX #: [phone] Reason: constipation, abd blo ating EXAMS: CPT CODE: [id number] XR ABDOMEN 1V (KUB) 11151 ONE VIEW ABDOMEN: HISTORY: Constipation with abdo [...] Misti(R) Trnscrd Date/Time/By: 08/20/2018 (1410) : By: [email or web address]/[email or web address] O rig Print D/T: S: 08/20/2018 (3816) PAGE 1 Signed Report [id number] 12:14:00 * Test Item Value Reference Range Interpretation Comments GLUBED (test code = GLUBED) 275 MG/DL 70-110 H Performed by certified shoe sewing machine operator and tender at [facility] ISTAT BLOOD [id number] 11:44:00* Test Item Value Reference Range Interpretation [...] code = SITEA) Art line BLOOD GAS W/[id number] 11:44:00* Test Item Value Reference Range Interpretation [...] = PSABG) 10 cmH2O Performed by certified shoe sewing machine operator and tender at [facility] ABG TEMPERATURE (test code = TEMPA) 98.0 F ABG SITE (test code = SITEA) Art line IONIZED CALCIUM (test code = CAIABG) 1.14 mmoL/L 1.15-1.35 L SODIUM BEDSIDE (test code = NAB) 144 MEQ/L 134-147 N POTASSIUM BEDSIDE (test code = KBD) 4.0 MEQ/L 4.5-7.0 L [id number] 08:33:00* Test Item Value Reference Range Interpretation Comments GLUBED (test code = GLUBED) 186 MG/DL 70-110 H Performed by certified shoe sewing machine operator and tender at [facility] BASIC METABOLIC [id number] 08:18:00* Test Item Value Reference Range Interpretation [...] code = CA) 8.3 mg/dL 8.0-10.5 N [id number] 08:18:00* Test Item Value Reference Range Interpretation Comments MAGNESIUM (test code = MAG) 2.80 mg/dL 1.8-2.4 H CBC W/AUTO [id number] 07:47:00* Test Item Value Reference Range Interpretation [...] Daily while on Heparin- XR CHEST 1 [id number] 07:18:00 FAX: Shalom Lisa I [phone] [place]: St: ADM FAX: Candie Reinoso (C Name: TORI GREGORY [facility] : 1945 Age/S: 72/M [address] [place] [address] Unit #: [id number] Loc: G.3362 [facility] [address] Phys: Candie Reinoso NP (Christy) Acct: [id number] Dis Date: Status: ADM IN PHONE #: [phone] Exam Date: 08/20/2018 0600 FAX #: [phone] Reason: Cardiac Surgery Post Op EXAMS: CPT CODE: [id number] XR CHEST 1 V 01262 - XR CHEST 1 V 08/20/2018 5:00 [...] S: 08/20/2018 (0722) PAGE 1 Signed Report [id number] 21:21:00* Test Item Value Reference Range Interpretation Comments GLUBED (test code = GLUBED) 215 MG/DL 70-110 H Performed by certified shoe sewing machine operator and tender at [facility] [id number] 18:04:00* Test Item Value Reference Range Interpretation Comments GLUBED (test code = GLUBED) 223 MG/DL 70-110 H Performed by certified shoe sewing machine operator and tender at [facility] ISTAT BLOOD [id number] 14:34:00* Test Item Value Reference Range Interpretation [...] ACID (test code = POCLAC) mmol/L 0.9-1.7 [id number] 11:40:00* Test Item Value Reference Range Interpretation Comments GLUBED (test code = GLUBED) 229 MG/DL 70-110 H Performed by certified shoe sewing machine operator and tender at [facility] [id number] 08:41:00* Test Item Value Reference Range Interpretation Comments GLUBED (test code = GLUBED) 167 MG/DL 70-110 H Performed by certified shoe sewing machine operator and tender at [facility] CBC W/AUTO [id number] 08:03:00* Test Item Value Reference Range Interpretation [...] MDIFF) NO COMMENTS: Daily while on HeparinPLT [id number] 08:03:00* Test Item Value Reference Range Interpretation Comments PLATELET ESTIMATE (test code = PLTEST) 84-105 THOUSAND ADEQUATE PLATELET MORPHOLOGY (test code = PLTMORPH) LARGE PLATELETS COMMENTS: Daily while on HeparinBASIC METABOLIC [id number] 07:53:00* Test Item Value Reference Range Interpretation [...] code = CA) 7.8 mg/dL 8.0-10.5 L [id number] 07:53:00* Test Item Value Reference Range Interpretation Comments MAGNESIUM (test code = MAG) 3.20 mg/dL 1.8-2.4 H CBC W/AUTO [id number] 07:35:00* Test Item Value Reference Range Interpretation [...] MDIFF) NO COMMENTS: Daily while on HeparinPLT [id number] 07:35:00* Test Item Value Reference Range Interpretation Comments PLATELET ESTIMATE (test code = PLTEST) THOUSAND ADEQUATE COMMENTS: Daily while on HeparinCBC W/AUTO [id number] 07:35:00* Test Item Value Reference Range Interpretation [...] MDIFF) NO COMMENTS: Daily while on HeparinPLT [id number] 07:35:00* Test Item Value Reference Range Interpretation Comments PLATELET ESTIMATE (test code = PLTEST) THOUSAND ADEQUATE COMMENTS: Daily while on Heparin- XR CHEST 1 [id number] 07:20:00 FAX: Shalom Lisa I [phone] [place]: St: [facility] FAX: Candie Reinoso (C Name: TORI GREGORY [facility] : 1945 Age/S: 72/M [address] [place] [address] Blvd Unit #: [id number] Loc: [address] [place] [address] Phys: Candie Reinoso NP (Christy) Acct: [id number] Dis Date: Status: ADM IN PHONE #: [phone] Exam Date: 08/19/2018546 FAX #: [phone] Reason: Cardiac Surgery Post Op EXAMS: CPT CODE: [id number] XR CHEST 1 V 82887 - XR CHEST 1 V 08/19/2018 5:00 [...] ologist: Milton Kuhn, RT(R); Maine Dash RT(R) [facility] Date/Jason e/By: 08/19/2018 (07) : By: KortneyJY5 Orig Print D/T: S: 08/19/2018 (6658) PAGE 1 Signed Report COAGULATION TIME [id number] 06:46:00* Test Item Value Reference Range Interpretation Comments COAGULATION TIME ACTIVATED (test code = ACT) 122 SECONDS 105-167 N COAGULATION TIME [id number] 06:46:00* Test Item Value Reference Range Interpretation Comments COAGULATION TIME ACTIVATED (test code = ACT) 564 SECONDS 105-167 H COAGULATION TIME [id number] 06:46:00* Test Item Value Reference Range Interpretation Comments COAGULATION TIME ACTIVATED (test code = ACT) 521 SECONDS 105-167 H COAGULATION TIME [id number] 06:46:00* Test Item Value Reference Range Interpretation Comments COAGULATION TIME ACTIVATED (test code = ACT) 499 SECONDS 105-167 H COAGULATION TIME [id number] 06:42:00* Test Item Value Reference Range Interpretation Comments COAGULATION TIME ACTIVATED (test code = ACT) 532 SECONDS 105-167 H COAGULATION TIME [id number] 06:42:00* Test Item Value Reference Range Interpretation Comments COAGULATION TIME ACTIVATED (test code = ACT) 109 SECONDS 105-167 N [id number] 21:28:00* Test Item Value Reference Range Interpretation Comments GLUBED (test code = GLUBED) 179 MG/DL 70-110 H Performed by certified shoe sewing machine operator and tender at [facility] BASIC METABOLIC [id number] 17:20:00* Test Item Value Reference Range Interpretation [...] code = CA) 7.8 mg/dL 8.0-10.5 L [id number] 17:20:00* Test Item Value Reference Range Interpretation Comments MAGNESIUM (test code = MAG) 3.00 mg/dL 1.8-2.4 H [id number] 17:19:00* Test Item Value Reference Range Interpretation Comments GLUBED (test code = GLUBED) 205 MG/DL 70-110 H Performed by certified shoe sewing machine operator and tender at [facility] [id number] 12:16:00* Test Item Value Reference Range Interpretation Comments GLUBED (test code = GLUBED) 210 MG/DL 70-110 H Performed by certified shoe sewing machine operator and tender at [facility] [id number] 10:22:00* Test Item Value Reference Range Interpretation Comments GLUBED (test code = GLUBED) 249 MG/DL 70-110 H Performed by certified shoe sewing machine operator and tender at [facility] - XR CHEST 1 [id number] 08:18:00 FAX: Shalom Lisa I [phone] [place]: St: ADM FAX: Candie Reinoso (C Name: ELVIA GREGORYBASIL [facility] : 1945 Age/S: 72/M [address] [place] [address] Blvd Unit #: [id number] Loc: G.3362 [place] [address] Phys: Candie Reinoso (Christy) DRIVING INSTRUCTOR Acct: [id number] Dis Date: Status: ADM IN PHONE #: [phone] Exam Date: 08/18/2018741 FAX #: [phone] Reason: Cardiac Surgery Post Op EXAMS: CPT CODE: [id number] XR CHEST 1 V 10115 CHEST, SINGLE VIEW HISTORY: Coronary artery disease, [...] (Christy) Technologis t: Maya Davidson, RT(R); Yady Elinor, RT(R) Trnscrd Date/Time/By: 08/18/2018 (0818) : By: Shilpi Orig Print D/T: S: 08/18/2018 (5423) PAGE 1 Signed Report BASIC METABOLIC [id number] 04:33:00* Test Item Value Reference Range Interpretation [...] code = CA) 7.9 mg/dL 8.0-10.5 L [id number] 04:33:00* Test Item Value Reference Range Interpretation Comments MAGNESIUM (test code = MAG) 2.90 mg/dL 1.8-2.4 H CBC W/AUTO [id number] 04:17:00* Test Item Value Reference Range Interpretation [...] = MDIFF) NO COMMENTS: Daily while on [id number] 21:13:00* Test Item Value Reference Range Interpretation Comments GLUBED (test code = GLUBED) 201 MG/DL 70-110 H Performed by certified shoe sewing machine operator and tender at [facility] [id number] 19:10:00* Test Item Value Reference Range Interpretation Comments GLUBED (test code = GLUBED) 224 MG/DL 70-110 H Performed by certified shoe sewing machine operator and tender at [facility] [id number] 12:14:00* Test Item Value Reference Range Interpretation Comments GLUBED (test code = GLUBED) 197 MG/DL 70-110 H Performed by certified shoe sewing machine operator and tender at [facility] - XR CHEST 1 [id number] 08:44:00 FAX: Jaja GuillermoShalom Juan [phone] [place]: St: ADM FAX: Candie Reinoso (C Name: TORI GREGORY [facility] : 1945 Age/S: 72/M [address] [place] [address] Blvd Unit #: [id number] Loc: G.2208 [place] [address] Phys: Candie Reinoso (Beckie) DRIVING INSTRUCTOR Acct: [id number] Dis Date: Status: ADM IN PHONE #: [phone] Exam Date: 08/17/2018813 FAX #: [phone] Reason: Cardiac Surgery Post Op EXAMS: CPT CODE: [id number] XR CHEST 1 V 73834 CHEST, SINGLE VIEW HISTORY: Congestive heart failure, [...] Candie Reinoso NP (Christy) Technologi st: Maya eLty, RT(R); Yadycl Aldrich, RT(R) Trnscrd Date/Time/By: 08/17/2018 (0844) : By: Shilpi Orig Print D/T: S: 08/17/2018 (0847 ) PAGE 1 Signed Report [id number] 07:33:00* Test Item Value Reference Range Interpretation Comments GLUBED (test code = GLUBED) 114 MG/DL 70-110 H Performed by certified shoe sewing machine operator and tender at [facility] [id number] 07:03:00* Test Item Value Reference Range Interpretation Comments GLUBED (test code = GLUBED) 108 MG/DL 70-110 N Performed by certified shoe sewing machine operator and tender at [facility] [id number] 06:17:00* Test Item Value Reference Range Interpretation Comments GLUBED (test code = GLUBED) 157 MG/DL 70-110 H Performed by certified shoe sewing machine operator and tender at [facility] BLOOD GAS W/[id number] 05:51:00* Test Item Value Reference Range Interpretation [...] KBD) 4.6 MEQ/L 4.5-7.0 N ISTAT BLOOD [id number] 05:45:00* Test Item Value Reference Range Interpretation [...] POCLAC) 1.0 mmol/L 0.9-1.7 N BASIC METABOLIC [id number] 04:42:00* Test Item Value Reference Range Interpretation [...] mg/dL 8.0-10.5 L COMMENTS: POD #1HEPATIC FUNCTION [id number] 04:42:00* Test Item Value Reference Range Interpretation [...] ALKP) 33 IUnit/L 20-125 N COMMENTS: POD #[id number] 04:42:00* Test Item Value Reference Range Interpretation Comments MAGNESIUM (test code = MAG) 2.90 mg/dL 1.8-2.4 H COMMENTS: POD #1CBC W/AUTO [id number] 04:25:00* Test Item Value Reference Range Interpretation [...] = MDIFF) NO COMMENTS: Daily while on [id number] 02:33:00* Test Item Value Reference Range Interpretation Comments GLUBED (test code = GLUBED) 173 MG/DL 70-110 H Performed by certified shoe sewing machine operator and tender at [facility] [id number] 00:28:00* Test Item Value Reference Range Interpretation Comments GLUBED (test code = GLUBED) 199 MG/DL 70-110 H Performed by certified shoe sewing machine operator and tender at [facility] [id number] 00:25:00* Test Item Value Reference Range Interpretation Comments POTASSIUM (test code = K) 4.8 mEq/L 3.4-5.0 N HGB [id number] 00:21:00* Test Item Value Reference Range Interpretation Comments HEMOGLOBIN (test code = HGB) 6.8 g/dL 12.5-16.9 L HEMATOCRIT (test code = HCT) 21.9 % 37.5-50.7 L [id number] 22:46:00* Test Item Value Reference Range Interpretation Comments GLUBED (test code = GLUBED) 232 MG/DL 70-110 H Performed by certified shoe sewing machine operator and tender at [facility] [id number] 20:37:00* Test Item Value Reference Range Interpretation Comments GLUBED (test code = GLUBED) 229 MG/DL 70-110 H Performed by certified shoe sewing machine operator and tender at [facility] [id number] 19:39:00* Test Item Value Reference Range Interpretation Comments GLUBED (test code = GLUBED) 206 MG/DL 70-110 H Performed by certified shoe sewing machine operator and tender at [facility] [id number] 19:27:00* Test Item Value Reference Range Interpretation Comments GLUBED (test code = GLUBED) 168 MG/DL 70-110 H Performed by certified shoe sewing machine operator and tender at [facility] [id number] 19:27:00* Test Item Value Reference Range Interpretation Comments GLUBED (test code = GLUBED) 203 MG/DL 70-110 H Performed by certified shoe sewing machine operator and tender at [facility] [id number] 19:27:00* Test Item Value Reference Range Interpretation Comments GLUBED (test code = GLUBED) 229 MG/DL 70-110 H Performed by certified shoe sewing machine operator and tender at [facility] [id number] 19:27:00* Test Item Value Reference Range Interpretation Comments GLUBED (test code = GLUBED) 170 MG/DL 70-110 H Performed by certified shoe sewing machine operator and tender at [facility] [id number] 19:27:00* Test Item Value Reference Range Interpretation Comments GLUBED (test code = GLUBED) 154 MG/DL 70-110 H Performed by certified shoe sewing machine operator and tender at [facility] [id number] 19:27:00* Test Item Value Reference Range Interpretation Comments GLUBED (test code = GLUBED) 176 MG/DL 70-110 H Performed by certified shoe sewing machine operator and tender at [facility] [id number] 19:27:00* Test Item Value Reference Range Interpretation Comments GLUBED (test code = GLUBED) 148 MG/DL 70-110 H Performed by certified shoe sewing machine operator and tender at [facility] [id number] 18:46:00* Test Item Value Reference Range Interpretation Comments POTASSIUM (test code = K) 4.2 mEq/L 3.4-5.0 N HGB [id number] 18:42:00* Test Item Value Reference Range Interpretation Comments HEMOGLOBIN (test code = HGB) 7.3 g/dL 12.5-16.9 L HEMATOCRIT (test code = HCT) 23.2 % 37.5-50.7 L ISTAT BLOOD [id number] 18:39:00* Test Item Value Reference Range Interpretation [...] code = HOLLAND) Venti Performed by certified shoe sewing machine operator and tender at [facility] ABG TEMPERATURE (test code = TEMPA) 98.0 F ABG SITE (test code = SITEA) Art line PREDICTED AA GRADIENT (test code = AP) 64 PREDICTED PO2 (test code = OP) 183 a/A RATIO (test code = RATIO) 0.37 POC LACTIC ACID (test code = POCLAC) 6.0 mmol/L 0.9-1.7 HH A-A GRADIENT (test code = AAGRADE) 157 [id number] 16:30:00* Test Item Value Reference Range Interpretation Comments GLUBED (test code = GLUBED) 193 MG/DL 70-110 H Performed by certified shoe sewing machine operator and tender at [facility] BLOOD GAS W/[id number] 16:15:00* Test Item Value Reference Range Interpretation [...] = PSABG) 10 cmH2O Performed by certified shoe sewing machine operator and tender at [facility] ABG TEMPERATURE (test code = TEMPA) 98.0 F ABG SITE (test code = SITEA) Art line IONIZED CALCIUM (test code = CAIABG) 1.14 mmoL/L 1.15-1.35 L SODIUM BEDSIDE (test code = NAB) 144 MEQ/L 134-147 N POTASSIUM BEDSIDE (test code = KBD) 4.0 MEQ/L 4.5-7.0 L - XR CHEST 1 [id number] 14:29:00 FAX: Shalom Lisa I [phone] [place]: St: ADM FAX: Candie Reinoso (C Name: TORI GREGORY [facility] : 1945 Age/S: 72/M [address] [place] [address] Unit #: [id number] Loc: G.[address] [place] [id number] Phys: Candie Reinoso (Beckie) DRIVING INSTRUCTOR Acct: [id number] Dis Date: Status: ADM IN PHONE #: [phone] Exam Date: 08/16/2018 1427 FAX #: [phone] Reason: Cardiac Surgery Post Op EXAMS: CPT CODE: [id number] XR CHEST 1 V 99833 1 VIEW CXR. PORTABLE EXAM 1:57 PM HISTORY: Postop cardiac surgery. COMPARISON: 08/08/2018 chest x-ray. Right IJ central line, ET tube and NG tube all in apparent good position. Stable cardiomegaly. Shallow inspiration which does accentuate pulmonary markings. No pneumothorax. No appreciable pleural fluid collections. IMPRESSION: Shallow inspiration. Support devices appear well-positioned. Otherwise normal exam. END OF IMPRESSION SL: [id number] at 1429 Reported and signed by: Jesus Marie M.D. CC: Shalom Guillermo MD; Candie Reinoso NP (Christy) Technologi st: Shalom Garcia RT(R) Trnscrd Date/Time/By: 08/16/2018 (1401) : By: Teodoro Orig Print D/T: S: 08/16/2018 (0957 ) PAGE 1 Signed Report ARTERIAL BLOOD [id number] 14:27:00* Test Item Value Reference Range Interpretation [...] = PEEPA) 5 cmH2O Performed by certified shoe sewing machine operator and tender at [facility] ABG TEMPERATURE (test code = TEMPA) 98.0 F ABG SITE (test code = SITEA) Art line PREDICTED AA GRADIENT (test code = AP) 62 PREDICTED PO2 (test code = OP) 178 a/A RATIO (test code = RATIO) 0.34 TCO2 ARTERIAL (test code = TCO2A) 24 A-A GRADIENT (test code = AAGRADE) 160 [id number] 14:12:00* Test Item Value Reference Range Interpretation Comments GLUBED (test code = GLUBED) 163 MG/DL 70-110 H Performed by certified shoe sewing machine operator and tender at [facility] BASIC METABOLIC [id number] 13:26:00* Test Item Value Reference Range Interpretation [...] CA) 7.1 mg/dL 8.0-10.5 L COMMENTS: On [id number] 13:26:00* Test Item Value Reference Range Interpretation Comments MAGNESIUM (test code = MAG) 3.90 mg/dL 1.8-2.4 H COMMENTS: On arrivalPROTHROMBIN [id number] 13:12:00* Test Item Value Reference Range Interpretation [...] prevent recurrent infarct). COMMENTS: On arrivalTHROMBOPLASTIN TIME [id number] 13:12:00* Test Item Value Reference Range Interpretation Comments THROMBOPLASTIN TIME PARTIAL (test code = PTT) 30.8 Seconds 25.0-39. 5 N Therapeutic Range: 61.8-83.8 Sec Effective 08/27/2013 COMMENTS: On arrivalISTAT BLOOD [id number] 13:04:00* Test Item Value Reference Range Interpretation [...] = PEEPA) 5 cmH2O Performed by certified shoe sewing machine operator and tender at [facility] ABG TEMPERATURE (test code = TEMPA) 98.0 F ABG SITE (test code = SITEA) Art line PREDICTED AA GRADIENT (test code = AP) 81 PREDICTED PO2 (test code = OP) 233 a/A RATIO (test code = RATIO) 0.35 POC LACTIC ACID (test code = POCLAC) 4.9 mmol/L 0.9-1.7 HH A-A GRADIENT (test code = AAGRADE) 205 CBC W/AUTO [id number] 13:02:00* Test Item Value Reference Range Interpretation [...] = MDIFF) NO COMMENTS: On arrivalBLOOD GAS W/[id number] 12:58:00* Test Item Value Reference Range Interpretation [...] = PEEPA) 5 cmH2O Performed by certified shoe sewing machine operator and tender at [facility] ABG TEMPERATURE (test code = [...] code = KBD) 3.8 MEQ/L 4.5-7.0 L [id number] 12:53:00* Test Item Value Reference Range Interpretation Comments GLUBED (test code = GLUBED) 159 MG/DL 70-110 H Performed by certified shoe sewing machine operator and tender at [facility] PROTHROMBIN [id number] 12:38:00* Test Item Value Reference Range Interpretation [...] Infarction (to prevent recurrent infarct). THROMBOPLASTIN TIME [id number] 12:38:00* Test Item Value Reference Range Interpretation Comments THROMBOPLASTIN TIME PARTIAL (test code = PTT) 34.6 Seconds 25.0-39. 5 Therapeutic Range: 61.8-83.8 Sec Effective 08/27/2013 HGB [id number] 12:11:00* Test Item Value Reference Range Interpretation Comments HEMOGLOBIN (test code = HGB) 8.9 g/dL 12.5-16.9 L HEMATOCRIT (test code = HCT) 27.8 % 37.5-50.7 L PLATELET [id number] 12:11:00* Test Item Value Reference Range Interpretation Comments PLATELET COUNT (test code = PLT) 149 x10 3/uL 150-400 L POC ARTERIAL BLOOD [id number] 11:42:00* Test Item Value Reference Range Interpretation Comments POC ARTERIAL BLOOD GAS PH (test code = POCPHA) 7.348 7.35-7. 45 L POC ARTERIAL BLOOD GAS PCO2 (test code = EGVCQN9A) 34.2 mmHg 35. 0-45 L POC TCO2 ARTERIAL (test code = POCTCO2) 19.8 POC ARTERIAL BLOOD GAS PO2 (test code = WNZSG7Y) 320.4 mmHg 80-10 0.0 HH POC HCO3 ARTERIAL (test code = JCWERB7B) 18.8 MMOL/L 22.0-26.0 L POC BASE EXCESS (test code = POCBEA) -6.2 MMOL/L -4.0-4.0 L POC O2 SATURATION (test code = POCO2S) 99.9 % 90-100 N [id number] 11:42:00* Test Item Value Reference Range Interpretation Comments SODIUM (test code = NA/ABG) MEQ/L 134-147 [id number] 11:42:00* Test Item Value Reference Range Interpretation Comments POTASSIUM (test code = K/ABG) MEQ/L 3.4-5.0 [id number] 11:42:00* Test Item Value Reference Range Interpretation Comments CHLORIDE (test code = CL/ABG) MEQ/L 100-108 CREATININE [id number] 11:42:00* Test Item Value Reference Range Interpretation Comments CREATININE ABG (test code = CREAABG) mg/dL 0.8-1.3 [id number] 11:42:00* Test Item Value Reference Range Interpretation Comments HEMOGLOBIN (test code = HGB/ABG) G/DL 12.5-16.9 [id number] 11:42:00* Test Item Value Reference Range Interpretation Comments HEMATOCRIT (test code = HCT/ABG) % 37.5-50.7 POC IONIZED [id number] 11:42:00* Test Item Value Reference Range Interpretation Comments POC IONIZED CALCIUM (test code = POCCA) MMOL/L 1.12-1.32 POC [id number] 11:42:00* Test Item Value Reference Range Interpretation Comments POC GLUCOSE (test code = POCGLU) MG/DL 70-110 POC ARTERIAL BLOOD [id number] 11:42:00* Test Item Value Reference Range Interpretation Comments POC ARTERIAL BLOOD GAS PH (test code = POCPHA) 7.348 7.35-7. 45 L POC ARTERIAL BLOOD GAS PCO2 (test code = XSCQSS6D) 34.2 mmHg 35. 0-45 L POC TCO2 ARTERIAL (test code = POCTCO2) 19.8 POC ARTERIAL BLOOD GAS PO2 (test code = EHGKU2I) 320.4 mmHg 80-10 0.0 HH POC HCO3 ARTERIAL (test code = VJYSBV9B) 18.8 MMOL/L 22.0-26.0 L POC BASE EXCESS (test code = POCBEA) -6.2 MMOL/L -4.0-4.0 L POC O2 SATURATION (test code = POCO2S) 99.9 % 90-100 N [id number] 11:42:00* Test Item Value Reference Range Interpretation Comments SODIUM (test code = NA/ABG) 141 MEQ/L 134-147 N [id number] 11:42:00* Test Item Value Reference Range Interpretation Comments POTASSIUM (test code = K/ABG) MEQ/L 3.4-5.0 [id number] 11:42:00* Test Item Value Reference Range Interpretation Comments CHLORIDE (test code = CL/ABG) MEQ/L 100-108 CREATININE [id number] 11:42:00* Test Item Value Reference Range Interpretation Comments CREATININE ABG (test code = CREAABG) mg/dL 0.8-1.3 [id number] 11:42:00* Test Item Value Reference Range Interpretation Comments HEMOGLOBIN (test code = HGB/ABG) G/DL 12.5-16.9 [id number] 11:42:00* Test Item Value Reference Range Interpretation Comments HEMATOCRIT (test code = HCT/ABG) % 37.5-50.7 POC IONIZED [id number] 11:42:00* Test Item Value Reference Range Interpretation Comments POC IONIZED CALCIUM (test code = POCCA) MMOL/L 1.12-1.32 POC [id number] 11:42:00* Test Item Value Reference Range Interpretation Comments POC GLUCOSE (test code = POCGLU) MG/DL 70-110 POC ARTERIAL BLOOD [id number] 11:42:00* Test Item Value Reference Range Interpretation Comments POC ARTERIAL BLOOD GAS PH (test code = POCPHA) 7.348 7.35-7. 45 L POC ARTERIAL BLOOD GAS PCO2 (test code = HSVZLH3D) 34.2 mmHg 35. 0-45 L POC TCO2 ARTERIAL (test code = POCTCO2) 19.8 POC ARTERIAL BLOOD GAS PO2 (test code = LGFKG8Y) 320.4 mmHg 80-10 0.0 HH POC HCO3 ARTERIAL (test code = RFQACM3L) 18.8 MMOL/L 22.0-26.0 L POC BASE EXCESS (test code = POCBEA) -6.2 MMOL/L -4.0-4.0 L POC O2 SATURATION (test code = POCO2S) 99.9 % 90-100 N [id number] 11:42:00* Test Item Value Reference Range Interpretation Comments SODIUM (test code = NA/ABG) 141 MEQ/L 134-147 N [id number] 11:42:00* Test Item Value Reference Range Interpretation Comments POTASSIUM (test code = K/ABG) 3.7 MEQ/L 3.4-5.0 N [id number] 11:42:00* Test Item Value Reference Range Interpretation Comments CHLORIDE (test code = CL/ABG) MEQ/L 100-108 CREATININE [id number] 11:42:00* Test Item Value Reference Range Interpretation Comments CREATININE ABG (test code = CREAABG) mg/dL 0.8-1.3 [id number] 11:42:00* Test Item Value Reference Range Interpretation Comments HEMOGLOBIN (test code = HGB/ABG) G/DL 12.5-16.9 [id number] 11:42:00* Test Item Value Reference Range Interpretation Comments HEMATOCRIT (test code = HCT/ABG) % 37.5-50.7 POC IONIZED [id number] 11:42:00* Test Item Value Reference Range Interpretation Comments POC IONIZED CALCIUM (test code = POCCA) MMOL/L 1.12-1.32 POC [id number] 11:42:00* Test Item Value Reference Range Interpretation Comments POC GLUCOSE (test code = POCGLU) MG/DL 70-110 POC ARTERIAL BLOOD [id number] 11:42:00* Test Item Value Reference Range Interpretation Comments POC ARTERIAL BLOOD GAS PH (test code = POCPHA) 7.348 7.35-7. 45 L POC ARTERIAL BLOOD GAS PCO2 (test code = BSBHPL2F) 34.2 mmHg 35. 0-45 L POC TCO2 ARTERIAL (test code = POCTCO2) 19.8 POC ARTERIAL BLOOD GAS PO2 (test code = JPNVF1B) 320.4 mmHg 80-10 0.0 HH POC HCO3 ARTERIAL (test code = TAVJIT6V) 18.8 MMOL/L 22.0-26.0 L POC BASE EXCESS (test code = POCBEA) -6.2 MMOL/L -4.0-4.0 L POC O2 SATURATION (test code = POCO2S) 99.9 % 90-100 N [id number] 11:42:00* Test Item Value Reference Range Interpretation Comments SODIUM (test code = NA/ABG) 141 MEQ/L 134-147 N [id number] 11:42:00* Test Item Value Reference Range Interpretation Comments POTASSIUM (test code = K/ABG) 3.7 MEQ/L 3.4-5.0 N [id number] 11:42:00* Test Item Value Reference Range Interpretation Comments CHLORIDE (test code = CL/ABG) MEQ/L 100-108 CREATININE [id number] 11:42:00* Test Item Value Reference Range Interpretation Comments CREATININE ABG (test code = CREAABG) mg/dL 0.8-1.3 [id number] 11:42:00* Test Item Value Reference Range Interpretation Comments HEMOGLOBIN (test code = HGB/ABG) G/DL 12.5-16.9 [id number] 11:42:00* Test Item Value Reference Range Interpretation Comments HEMATOCRIT (test code = HCT/ABG) % 37.5-50.7 POC IONIZED [id number] 11:42:00* Test Item Value Reference Range Interpretation Comments POC IONIZED CALCIUM (test code = POCCA) 1.28 MMOL/L 1.12-1.32 N POC [id number] 11:42:00* Test Item Value Reference Range Interpretation Comments POC GLUCOSE (test code = POCGLU) MG/DL 70-110 POC ARTERIAL BLOOD [id number] 11:42:00* Test Item Value Reference Range Interpretation Comments POC ARTERIAL BLOOD GAS PH (test code = POCPHA) 7.348 7.35-7. 45 L POC ARTERIAL BLOOD GAS PCO2 (test code = TGVNBX6T) 34.2 mmHg 35. 0-45 L POC TCO2 ARTERIAL (test code = POCTCO2) 19.8 POC ARTERIAL BLOOD GAS PO2 (test code = QNZDP9P) 320.4 mmHg 80-10 0.0 HH POC HCO3 ARTERIAL (test code = OWDEBP3C) 18.8 MMOL/L 22.0-26.0 L POC BASE EXCESS (test code = POCBEA) -6.2 MMOL/L -4.0-4.0 L POC O2 SATURATION (test code = POCO2S) 99.9 % 90-100 N [id number] 11:42:00* Test Item Value Reference Range Interpretation Comments SODIUM (test code = NA/ABG) 141 MEQ/L 134-147 N [id number] 11:42:00* Test Item Value Reference Range Interpretation Comments POTASSIUM (test code = K/ABG) 3.7 MEQ/L 3.4-5.0 N [id number] 11:42:00* Test Item Value Reference Range Interpretation Comments CHLORIDE (test code = CL/ABG) MEQ/L 100-108 CREATININE [id number] 11:42:00* Test Item Value Reference Range Interpretation Comments CREATININE ABG (test code = CREAABG) mg/dL 0.8-1.3 [id number] 11:42:00* Test Item Value Reference Range Interpretation Comments HEMOGLOBIN (test code = HGB/ABG) G/DL 12.5-16.9 [id number] 11:42:00* Test Item Value Reference Range Interpretation Comments HEMATOCRIT (test code = HCT/ABG) % 37.5-50.7 POC IONIZED [id number] 11:42:00* Test Item Value Reference Range Interpretation Comments POC IONIZED CALCIUM (test code = POCCA) 1.28 MMOL/L 1.12-1.32 N POC [id number] 11:42:00* Test Item Value Reference Range Interpretation Comments POC GLUCOSE (test code = POCGLU) 226 MG/DL 70-110 H POC ARTERIAL BLOOD [id number] 11:42:00* Test Item Value Reference Range Interpretation Comments POC ARTERIAL BLOOD GAS PH (test code = POCPHA) 7.348 7.35-7. 45 L POC ARTERIAL BLOOD GAS PCO2 (test code = KFWLDI1L) 34.2 mmHg 35. 0-45 L POC TCO2 ARTERIAL (test code = POCTCO2) 19.8 POC ARTERIAL BLOOD GAS PO2 (test code = OHJVA5S) 320.4 mmHg 80-10 0.0 HH POC HCO3 ARTERIAL (test code = PCNWGL5U) 18.8 MMOL/L 22.0-26.0 L POC BASE EXCESS (test code = POCBEA) -6.2 MMOL/L -4.0-4.0 L POC O2 SATURATION (test code = POCO2S) 99.9 % 90-100 N [id number] 11:42:00* Test Item Value Reference Range Interpretation Comments SODIUM (test code = NA/ABG) 141 MEQ/L 134-147 N [id number] 11:42:00* Test Item Value Reference Range Interpretation Comments POTASSIUM (test code = K/ABG) 3.7 MEQ/L 3.4-5.0 N [id number] 11:42:00* Test Item Value Reference Range Interpretation Comments CHLORIDE (test code = CL/ABG) MEQ/L 100-108 CREATININE [id number] 11:42:00* Test Item Value Reference Range Interpretation Comments CREATININE ABG (test code = CREAABG) mg/dL 0.8-1.3 [id number] 11:42:00* Test Item Value Reference Range Interpretation Comments HEMOGLOBIN (test code = HGB/ABG) G/DL 12.5-16.9 [id number] 11:42:00* Test Item Value Reference Range Interpretation Comments HEMATOCRIT (test code = HCT/ABG) 25 % 37.5-50.7 L POC IONIZED [id number] 11:42:00* Test Item Value Reference Range Interpretation Comments POC IONIZED CALCIUM (test code = POCCA) 1.28 MMOL/L 1.12-1.32 N POC [id number] 11:42:00* Test Item Value Reference Range Interpretation Comments POC GLUCOSE (test code = POCGLU) 226 MG/DL 70-110 H POC ARTERIAL BLOOD [id number] 11:42:00* Test Item Value Reference Range Interpretation Comments POC ARTERIAL BLOOD GAS PH (test code = POCPHA) 7.348 7.35-7. 45 L POC ARTERIAL BLOOD GAS PCO2 (test code = EOUAEH6L) 34.2 mmHg 35. 0-45 L POC TCO2 ARTERIAL (test code = POCTCO2) 19.8 POC ARTERIAL BLOOD GAS PO2 (test code = AFCGR5J) 320.4 mmHg 80-10 0.0 HH POC HCO3 ARTERIAL (test code = SOUKBU0H) 18.8 MMOL/L 22.0-26.0 L POC BASE EXCESS (test code = POCBEA) -6.2 MMOL/L -4.0-4.0 L POC O2 SATURATION (test code = POCO2S) 99.9 % 90-100 N [id number] 11:42:00* Test Item Value Reference Range Interpretation Comments SODIUM (test code = NA/ABG) 141 MEQ/L 134-147 N [id number] 11:42:00* Test Item Value Reference Range Interpretation Comments POTASSIUM (test code = K/ABG) 3.7 MEQ/L 3.4-5.0 N [id number] 11:42:00* Test Item Value Reference Range Interpretation Comments CHLORIDE (test code = CL/ABG) MEQ/L 100-108 CREATININE [id number] 11:42:00* Test Item Value Reference Range Interpretation Comments CREATININE ABG (test code = CREAABG) mg/dL 0.8-1.3 [id number] 11:42:00* Test Item Value Reference Range Interpretation Comments HEMOGLOBIN (test code = HGB/ABG) 8.6 G/DL 12.5-16.9 L [id number] 11:42:00* Test Item Value Reference Range Interpretation Comments HEMATOCRIT (test code = HCT/ABG) 25 % 37.5-50.7 L POC IONIZED [id number] 11:42:00* Test Item Value Reference Range Interpretation Comments POC IONIZED CALCIUM (test code = POCCA) 1.28 MMOL/L 1.12-1.32 N POC [id number] 11:42:00* Test Item Value Reference Range Interpretation Comments POC GLUCOSE (test code = POCGLU) 226 MG/DL 70-110 H POC ARTERIAL BLOOD [id number] 11:42:00* Test Item Value Reference Range Interpretation Comments POC ARTERIAL BLOOD GAS PH (test code = POCPHA) 7.348 7.35-7. 45 L POC ARTERIAL BLOOD GAS PCO2 (test code = EHIQOK6S) 34.2 mmHg 35. 0-45 L POC TCO2 ARTERIAL (test code = POCTCO2) 19.8 POC ARTERIAL BLOOD GAS PO2 (test code = LIRAR4I) 320.4 mmHg 80-10 0.0 HH POC HCO3 ARTERIAL (test code = ZOYRTY6P) 18.8 MMOL/L 22.0-26.0 L POC BASE EXCESS (test code = POCBEA) -6.2 MMOL/L -4.0-4.0 L POC O2 SATURATION (test code = POCO2S) 99.9 % 90-100 N [id number] 11:42:00* Test Item Value Reference Range Interpretation Comments SODIUM (test code = NA/ABG) 141 MEQ/L 134-147 N [id number] 11:42:00* Test Item Value Reference Range Interpretation Comments POTASSIUM (test code = K/ABG) 3.7 MEQ/L 3.4-5.0 N [id number] 11:42:00* Test Item Value Reference Range Interpretation Comments CHLORIDE (test code = CL/ABG) 109 MEQ/L 100-108 H CREATININE [id number] 11:42:00* Test Item Value Reference Range Interpretation Comments CREATININE ABG (test code = CREAABG) mg/dL 0.8-1.3 [id number] 11:42:00* Test Item Value Reference Range Interpretation Comments HEMOGLOBIN (test code = HGB/ABG) 8.6 G/DL 12.5-16.9 L [id number] 11:42:00* Test Item Value Reference Range Interpretation Comments HEMATOCRIT (test code = HCT/ABG) 25 % 37.5-50.7 L POC IONIZED [id number] 11:42:00* Test Item Value Reference Range Interpretation Comments POC IONIZED CALCIUM (test code = POCCA) 1.28 MMOL/L 1.12-1.32 N POC [id number] 11:42:00* Test Item Value Reference Range Interpretation Comments POC GLUCOSE (test code = POCGLU) 226 MG/DL 70-110 H POC ARTERIAL BLOOD [id number] 11:42:00* Test Item Value Reference Range Interpretation Comments POC ARTERIAL BLOOD GAS PH (test code = POCPHA) 7.348 7.35-7. 45 L POC ARTERIAL BLOOD GAS PCO2 (test code = LHEYLM9Q) 34.2 mmHg 35. 0-45 L POC TCO2 ARTERIAL (test code = POCTCO2) 19.8 POC ARTERIAL BLOOD GAS PO2 (test code = FGTXW5I) 320.4 mmHg 80-10 0.0 HH POC HCO3 ARTERIAL (test code = VOEXLS8P) 18.8 MMOL/L 22.0-26.0 L POC BASE EXCESS (test code = POCBEA) -6.2 MMOL/L -4.0-4.0 L POC O2 SATURATION (test code = POCO2S) 99.9 % 90-100 N [id number] 11:42:00* Test Item Value Reference Range Interpretation Comments SODIUM (test code = NA/ABG) 141 MEQ/L 134-147 N [id number] 11:42:00* Test Item Value Reference Range Interpretation Comments POTASSIUM (test code = K/ABG) 3.7 MEQ/L 3.4-5.0 N [id number] 11:42:00* Test Item Value Reference Range Interpretation Comments CHLORIDE (test code = CL/ABG) 109 MEQ/L 100-108 H CREATININE [id number] 11:42:00* Test Item Value Reference Range Interpretation Comments CREATININE ABG (test code = CREAABG) 1.0 mg/dL 0.8-1.3 N [id number] 11:42:00* Test Item Value Reference Range Interpretation Comments HEMOGLOBIN (test code = HGB/ABG) 8.6 G/DL 12.5-16.9 L [id number] 11:42:00* Test Item Value Reference Range Interpretation Comments HEMATOCRIT (test code = HCT/ABG) 25 % 37.5-50.7 L POC IONIZED [id number] 11:42:00* Test Item Value Reference Range Interpretation Comments POC IONIZED CALCIUM (test code = POCCA) 1.28 MMOL/L 1.12-1.32 N POC [id number] 11:42:00* Test Item Value Reference Range Interpretation Comments POC GLUCOSE (test code = POCGLU) 226 MG/DL 70-110 H POC ARTERIAL BLOOD [id number] 11:02:00* Test Item Value Reference Range Interpretation Comments POC ARTERIAL BLOOD GAS PH (test code = POCPHA) 7.366 7.35-7. 45 N POC ARTERIAL BLOOD GAS PCO2 (test code = TDPNHT5Z) 31.3 mmHg 35. 0-45 L POC TCO2 ARTERIAL (test code = POCTCO2) 18.9 POC ARTERIAL BLOOD GAS PO2 (test code = YCHYS3K) 226.3 mmHg 80-10 0.0 HH POC HCO3 ARTERIAL (test code = BJRTJZ9D) 18.0 MMOL/L 22.0-26.0 L POC BASE EXCESS (test code = POCBEA) -6.7 MMOL/L -4.0-4.0 L POC O2 SATURATION (test code = POCO2S) 99.8 % 90-100 N [id number] 11:02:00* Test Item Value Reference Range Interpretation Comments SODIUM (test code = NA/ABG) MEQ/L 134-147 [id number] 11:02:00* Test Item Value Reference Range Interpretation Comments POTASSIUM (test code = K/ABG) MEQ/L 3.4-5.0 [id number] 11:02:00* Test Item Value Reference Range Interpretation Comments CHLORIDE (test code = CL/ABG) MEQ/L 100-108 CREATININE [id number] 11:02:00* Test Item Value Reference Range Interpretation Comments CREATININE ABG (test code = CREAABG) mg/dL 0.8-1.3 [id number] 11:02:00* Test Item Value Reference Range Interpretation Comments HEMOGLOBIN (test code = HGB/ABG) G/DL 12.5-16.9 [id number] 11:02:00* Test Item Value Reference Range Interpretation Comments HEMATOCRIT (test code = HCT/ABG) % 37.5-50.7 POC IONIZED [id number] 11:02:00* Test Item Value Reference Range Interpretation Comments POC IONIZED CALCIUM (test code = POCCA) MMOL/L 1.12-1.32 POC [id number] 11:02:00* Test Item Value Reference Range Interpretation Comments POC GLUCOSE (test code = POCGLU) MG/DL 70-110 POC ARTERIAL BLOOD [id number] 11:02:00* Test Item Value Reference Range Interpretation Comments POC ARTERIAL BLOOD GAS PH (test code = POCPHA) 7.366 7.35-7. 45 N POC ARTERIAL BLOOD GAS PCO2 (test code = GMHPLI1D) 31.3 mmHg 35. 0-45 L POC TCO2 ARTERIAL (test code = POCTCO2) 18.9 POC ARTERIAL BLOOD GAS PO2 (test code = LXMGA2J) 226.3 mmHg 80-10 0.0 HH POC HCO3 ARTERIAL (test code = UQPSYK8A) 18.0 MMOL/L 22.0-26.0 L POC BASE EXCESS (test code = POCBEA) -6.7 MMOL/L -4.0-4.0 L POC O2 SATURATION (test code = POCO2S) 99.8 % 90-100 N [id number] 11:02:00* Test Item Value Reference Range Interpretation Comments SODIUM (test code = NA/ABG) 138 MEQ/L 134-147 N [id number] 11:02:00* Test Item Value Reference Range Interpretation Comments POTASSIUM (test code = K/ABG) MEQ/L 3.4-5.0 [id number] 11:02:00* Test Item Value Reference Range Interpretation Comments CHLORIDE (test code = CL/ABG) MEQ/L 100-108 CREATININE [id number] 11:02:00* Test Item Value Reference Range Interpretation Comments CREATININE ABG (test code = CREAABG) mg/dL 0.8-1.3 [id number] 11:02:00* Test Item Value Reference Range Interpretation Comments HEMOGLOBIN (test code = HGB/ABG) G/DL 12.5-16.9 [id number] 11:02:00* Test Item Value Reference Range Interpretation Comments HEMATOCRIT (test code = HCT/ABG) % 37.5-50.7 POC IONIZED [id number] 11:02:00* Test Item Value Reference Range Interpretation Comments POC IONIZED CALCIUM (test code = POCCA) MMOL/L 1.12-1.32 POC [id number] 11:02:00* Test Item Value Reference Range Interpretation Comments POC GLUCOSE (test code = POCGLU) MG/DL 70-110 POC ARTERIAL BLOOD [id number] 11:02:00* Test Item Value Reference Range Interpretation Comments POC ARTERIAL BLOOD GAS PH (test code = POCPHA) 7.366 7.35-7. 45 N POC ARTERIAL BLOOD GAS PCO2 (test code = PRFPON3D) 31.3 mmHg 35. 0-45 L POC TCO2 ARTERIAL (test code = POCTCO2) 18.9 POC ARTERIAL BLOOD GAS PO2 (test code = WFOVB8S) 226.3 mmHg 80-10 0.0 HH POC HCO3 ARTERIAL (test code = ZSGBRS0S) 18.0 MMOL/L 22.0-26.0 L POC BASE EXCESS (test code = POCBEA) -6.7 MMOL/L -4.0-4.0 L POC O2 SATURATION (test code = POCO2S) 99.8 % 90-100 N [id number] 11:02:00* Test Item Value Reference Range Interpretation Comments SODIUM (test code = NA/ABG) 138 MEQ/L 134-147 N [id number] 11:02:00* Test Item Value Reference Range Interpretation Comments POTASSIUM (test code = K/ABG) 4.5 MEQ/L 3.4-5.0 N [id number] 11:02:00* Test Item Value Reference Range Interpretation Comments CHLORIDE (test code = CL/ABG) MEQ/L 100-108 CREATININE [id number] 11:02:00* Test Item Value Reference Range Interpretation Comments CREATININE ABG (test code = CREAABG) mg/dL 0.8-1.3 [id number] 11:02:00* Test Item Value Reference Range Interpretation Comments HEMOGLOBIN (test code = HGB/ABG) G/DL 12.5-16.9 [id number] 11:02:00* Test Item Value Reference Range Interpretation Comments HEMATOCRIT (test code = HCT/ABG) % 37.5-50.7 POC IONIZED [id number] 11:02:00* Test Item Value Reference Range Interpretation Comments POC IONIZED CALCIUM (test code = POCCA) MMOL/L 1.12-1.32 POC [id number] 11:02:00* Test Item Value Reference Range Interpretation Comments POC GLUCOSE (test code = POCGLU) MG/DL 70-110 POC ARTERIAL BLOOD [id number] 11:02:00* Test Item Value Reference Range Interpretation Comments POC ARTERIAL BLOOD GAS PH (test code = POCPHA) 7.366 7.35-7. 45 N POC ARTERIAL BLOOD GAS PCO2 (test code = YMVDNL5T) 31.3 mmHg 35. 0-45 L POC TCO2 ARTERIAL (test code = POCTCO2) 18.9 POC ARTERIAL BLOOD GAS PO2 (test code = MADDB1A) 226.3 mmHg 80-10 0.0 HH POC HCO3 ARTERIAL (test code = OOAMME8T) 18.0 MMOL/L 22.0-26.0 L POC BASE EXCESS (test code = POCBEA) -6.7 MMOL/L -4.0-4.0 L POC O2 SATURATION (test code = POCO2S) 99.8 % 90-100 N [id number] 11:02:00* Test Item Value Reference Range Interpretation Comments SODIUM (test code = NA/ABG) 138 MEQ/L 134-147 N [id number] 11:02:00* Test Item Value Reference Range Interpretation Comments POTASSIUM (test code = K/ABG) 4.5 MEQ/L 3.4-5.0 N [id number] 11:02:00* Test Item Value Reference Range Interpretation Comments CHLORIDE (test code = CL/ABG) MEQ/L 100-108 CREATININE [id number] 11:02:00* Test Item Value Reference Range Interpretation Comments CREATININE ABG (test code = CREAABG) mg/dL 0.8-1.3 [id number] 11:02:00* Test Item Value Reference Range Interpretation Comments HEMOGLOBIN (test code = HGB/ABG) G/DL 12.5-16.9 [id number] 11:02:00* Test Item Value Reference Range Interpretation Comments HEMATOCRIT (test code = HCT/ABG) % 37.5-50.7 POC IONIZED [id number] 11:02:00* Test Item Value Reference Range Interpretation Comments POC IONIZED CALCIUM (test code = POCCA) 1.16 MMOL/L 1.12-1.32 N POC [id number] 11:02:00* Test Item Value Reference Range Interpretation Comments POC GLUCOSE (test code = POCGLU) MG/DL 70-110 POC ARTERIAL BLOOD [id number] 11:02:00* Test Item Value Reference Range Interpretation Comments POC ARTERIAL BLOOD GAS PH (test code = POCPHA) 7.366 7.35-7. 45 N POC ARTERIAL BLOOD GAS PCO2 (test code = VASFUH9B) 31.3 mmHg 35. 0-45 L POC TCO2 ARTERIAL (test code = POCTCO2) 18.9 POC ARTERIAL BLOOD GAS PO2 (test code = IJEXB0C) 226.3 mmHg 80-10 0.0 HH POC HCO3 ARTERIAL (test code = JPYOTP3V) 18.0 MMOL/L 22.0-26.0 L POC BASE EXCESS (test code = POCBEA) -6.7 MMOL/L -4.0-4.0 L POC O2 SATURATION (test code = POCO2S) 99.8 % 90-100 N [id number] 11:02:00* Test Item Value Reference Range Interpretation Comments SODIUM (test code = NA/ABG) 138 MEQ/L 134-147 N [id number] 11:02:00* Test Item Value Reference Range Interpretation Comments POTASSIUM (test code = K/ABG) 4.5 MEQ/L 3.4-5.0 N [id number] 11:02:00* Test Item Value Reference Range Interpretation Comments CHLORIDE (test code = CL/ABG) MEQ/L 100-108 CREATININE [id number] 11:02:00* Test Item Value Reference Range Interpretation Comments CREATININE ABG (test code = CREAABG) mg/dL 0.8-1.3 [id number] 11:02:00* Test Item Value Reference Range Interpretation Comments HEMOGLOBIN (test code = HGB/ABG) G/DL 12.5-16.9 [id number] 11:02:00* Test Item Value Reference Range Interpretation Comments HEMATOCRIT (test code = HCT/ABG) % 37.5-50.7 POC IONIZED [id number] 11:02:00* Test Item Value Reference Range Interpretation Comments POC IONIZED CALCIUM (test code = POCCA) 1.16 MMOL/L 1.12-1.32 N POC [id number] 11:02:00* Test Item Value Reference Range Interpretation Comments POC GLUCOSE (test code = POCGLU) 240 MG/DL 70-110 H POC ARTERIAL BLOOD [id number] 11:02:00* Test Item Value Reference Range Interpretation Comments POC ARTERIAL BLOOD GAS PH (test code = POCPHA) 7.366 7.35-7. 45 N POC ARTERIAL BLOOD GAS PCO2 (test code = MDQPXB1E) 31.3 mmHg 35. 0-45 L POC TCO2 ARTERIAL (test code = POCTCO2) 18.9 POC ARTERIAL BLOOD GAS PO2 (test code = BYNMB7Z) 226.3 mmHg 80-10 0.0 HH POC HCO3 ARTERIAL (test code = NWFFFD7Q) 18.0 MMOL/L 22.0-26.0 L POC BASE EXCESS (test code = POCBEA) -6.7 MMOL/L -4.0-4.0 L POC O2 SATURATION (test code = POCO2S) 99.8 % 90-100 N [id number] 11:02:00* Test Item Value Reference Range Interpretation Comments SODIUM (test code = NA/ABG) 138 MEQ/L 134-147 N [id number] 11:02:00* Test Item Value Reference Range Interpretation Comments POTASSIUM (test code = K/ABG) 4.5 MEQ/L 3.4-5.0 N [id number] 11:02:00* Test Item Value Reference Range Interpretation Comments CHLORIDE (test code = CL/ABG) MEQ/L 100-108 CREATININE [id number] 11:02:00* Test Item Value Reference Range Interpretation Comments CREATININE ABG (test code = CREAABG) mg/dL 0.8-1.3 [id number] 11:02:00* Test Item Value Reference Range Interpretation Comments HEMOGLOBIN (test code = HGB/ABG) G/DL 12.5-16.9 [id number] 11:02:00* Test Item Value Reference Range Interpretation Comments HEMATOCRIT (test code = HCT/ABG) 22 % 37.5-50.7 L POC IONIZED [id number] 11:02:00* Test Item Value Reference Range Interpretation Comments POC IONIZED CALCIUM (test code = POCCA) 1.16 MMOL/L 1.12-1.32 N POC [id number] 11:02:00* Test Item Value Reference Range Interpretation Comments POC GLUCOSE (test code = POCGLU) 240 MG/DL 70-110 H POC ARTERIAL BLOOD [id number] 11:02:00* Test Item Value Reference Range Interpretation Comments POC ARTERIAL BLOOD GAS PH (test code = POCPHA) 7.366 7.35-7. 45 N POC ARTERIAL BLOOD GAS PCO2 (test code = QKVVIU4E) 31.3 mmHg 35. 0-45 L POC TCO2 ARTERIAL (test code = POCTCO2) 18.9 POC ARTERIAL BLOOD GAS PO2 (test code = INKIS1W) 226.3 mmHg 80-10 0.0 HH POC HCO3 ARTERIAL (test code = CTCJRF9B) 18.0 MMOL/L 22.0-26.0 L POC BASE EXCESS (test code = POCBEA) -6.7 MMOL/L -4.0-4.0 L POC O2 SATURATION (test code = POCO2S) 99.8 % 90-100 N [id number] 11:02:00* Test Item Value Reference Range Interpretation Comments SODIUM (test code = NA/ABG) 138 MEQ/L 134-147 N [id number] 11:02:00* Test Item Value Reference Range Interpretation Comments POTASSIUM (test code = K/ABG) 4.5 MEQ/L 3.4-5.0 N [id number] 11:02:00* Test Item Value Reference Range Interpretation Comments CHLORIDE (test code = CL/ABG) MEQ/L 100-108 CREATININE [id number] 11:02:00* Test Item Value Reference Range Interpretation Comments CREATININE ABG (test code = CREAABG) mg/dL 0.8-1.3 [id number] 11:02:00* Test Item Value Reference Range Interpretation Comments HEMOGLOBIN (test code = HGB/ABG) 7.6 G/DL 12.5-16.9 L [id number] 11:02:00* Test Item Value Reference Range Interpretation Comments HEMATOCRIT (test code = HCT/ABG) 22 % 37.5-50.7 L POC IONIZED [id number] 11:02:00* Test Item Value Reference Range Interpretation Comments POC IONIZED CALCIUM (test code = POCCA) 1.16 MMOL/L 1.12-1.32 N POC [id number] 11:02:00* Test Item Value Reference Range Interpretation Comments POC GLUCOSE (test code = POCGLU) 240 MG/DL 70-110 H POC ARTERIAL BLOOD [id number] 11:02:00* Test Item Value Reference Range Interpretation Comments POC ARTERIAL BLOOD GAS PH (test code = POCPHA) 7.366 7.35-7. 45 N POC ARTERIAL BLOOD GAS PCO2 (test code = ZJDDAA7F) 31.3 mmHg 35. 0-45 L POC TCO2 ARTERIAL (test code = POCTCO2) 18.9 POC ARTERIAL BLOOD GAS PO2 (test code = HSHIC6R) 226.3 mmHg 80-10 0.0 HH POC HCO3 ARTERIAL (test code = DNJFAL7Q) 18.0 MMOL/L 22.0-26.0 L POC BASE EXCESS (test code = POCBEA) -6.7 MMOL/L -4.0-4.0 L POC O2 SATURATION (test code = POCO2S) 99.8 % 90-100 N [id number] 11:02:00* Test Item Value Reference Range Interpretation Comments SODIUM (test code = NA/ABG) 138 MEQ/L 134-147 N [id number] 11:02:00* Test Item Value Reference Range Interpretation Comments POTASSIUM (test code = K/ABG) 4.5 MEQ/L 3.4-5.0 N [id number] 11:02:00* Test Item Value Reference Range Interpretation Comments CHLORIDE (test code = CL/ABG) 104 MEQ/L 100-108 N CREATININE [id number] 11:02:00* Test Item Value Reference Range Interpretation Comments CREATININE ABG (test code = CREAABG) mg/dL 0.8-1.3 [id number] 11:02:00* Test Item Value Reference Range Interpretation Comments HEMOGLOBIN (test code = HGB/ABG) 7.6 G/DL 12.5-16.9 L [id number] 11:02:00* Test Item Value Reference Range Interpretation Comments HEMATOCRIT (test code = HCT/ABG) 22 % 37.5-50.7 L POC IONIZED [id number] 11:02:00* Test Item Value Reference Range Interpretation Comments POC IONIZED CALCIUM (test code = POCCA) 1.16 MMOL/L 1.12-1.32 N POC [id number] 11:02:00* Test Item Value Reference Range Interpretation Comments POC GLUCOSE (test code = POCGLU) 240 MG/DL 70-110 H POC ARTERIAL BLOOD [id number] 11:02:00* Test Item Value Reference Range Interpretation Comments POC ARTERIAL BLOOD GAS PH (test code = POCPHA) 7.366 7.35-7. 45 N POC ARTERIAL BLOOD GAS PCO2 (test code = DYXKBA4S) 31.3 mmHg 35. 0-45 L POC TCO2 ARTERIAL (test code = POCTCO2) 18.9 POC ARTERIAL BLOOD GAS PO2 (test code = VHRDL9X) 226.3 mmHg 80-10 0.0 HH POC HCO3 ARTERIAL (test code = QIWPEG9K) 18.0 MMOL/L 22.0-26.0 L POC BASE EXCESS (test code = POCBEA) -6.7 MMOL/L -4.0-4.0 L POC O2 SATURATION (test code = POCO2S) 99.8 % 90-100 N [id number] 11:02:00* Test Item Value Reference Range Interpretation Comments SODIUM (test code = NA/ABG) 138 MEQ/L 134-147 N [id number] 11:02:00* Test Item Value Reference Range Interpretation Comments POTASSIUM (test code = K/ABG) 4.5 MEQ/L 3.4-5.0 N [id number] 11:02:00* Test Item Value Reference Range Interpretation Comments CHLORIDE (test code = CL/ABG) 104 MEQ/L 100-108 N CREATININE [id number] 11:02:00* Test Item Value Reference Range Interpretation Comments CREATININE ABG (test code = CREAABG) 1.0 mg/dL 0.8-1.3 N [id number] 11:02:00* Test Item Value Reference Range Interpretation Comments HEMOGLOBIN (test code = HGB/ABG) 7.6 G/DL 12.5-16.9 L [id number] 11:02:00* Test Item Value Reference Range Interpretation Comments HEMATOCRIT (test code = HCT/ABG) 22 % 37.5-50.7 L POC IONIZED [id number] 11:02:00* Test Item Value Reference Range Interpretation Comments POC IONIZED CALCIUM (test code = POCCA) 1.16 MMOL/L 1.12-1.32 N POC [id number] 11:02:00* Test Item Value Reference Range Interpretation Comments POC GLUCOSE (test code = POCGLU) 240 MG/DL 70-110 H POC ARTERIAL BLOOD [id number] 10:28:00* Test Item Value Reference Range Interpretation Comments POC ARTERIAL BLOOD GAS PH (test code = POCPHA) 7.433 7.35-7. 45 N POC ARTERIAL BLOOD GAS PCO2 (test code = LJMEOW8Y) 32.7 mmHg 35. 0-45 L POC TCO2 ARTERIAL (test code = POCTCO2) 22.8 POC ARTERIAL BLOOD GAS PO2 (test code = KWBXN3R) 422.1 mmHg 80-10 0.0 HH POC HCO3 ARTERIAL (test code = YRCVWZ6Q) 21.8 MMOL/L 22.0-26.0 L POC BASE EXCESS (test code = POCBEA) -2.2 MMOL/L -4.0-4.0 N POC O2 SATURATION (test code = POCO2S) 100.0 % 90-100 N [id number] 10:28:00* Test Item Value Reference Range Interpretation Comments SODIUM (test code = NA/ABG) MEQ/L 134-147 [id number] 10:28:00* Test Item Value Reference Range Interpretation Comments POTASSIUM (test code = K/ABG) MEQ/L 3.4-5.0 [id number] 10:28:00* Test Item Value Reference Range Interpretation Comments CHLORIDE (test code = CL/ABG) MEQ/L 100-108 CREATININE [id number] 10:28:00* Test Item Value Reference Range Interpretation Comments CREATININE ABG (test code = CREAABG) mg/dL 0.8-1.3 [id number] 10:28:00* Test Item Value Reference Range Interpretation Comments HEMOGLOBIN (test code = HGB/ABG) G/DL 12.5-16.9 [id number] 10:28:00* Test Item Value Reference Range Interpretation Comments HEMATOCRIT (test code = HCT/ABG) % 37.5-50.7 POC IONIZED [id number] 10:28:00* Test Item Value Reference Range Interpretation Comments POC IONIZED CALCIUM (test code = POCCA) MMOL/L 1.12-1.32 POC [id number] 10:28:00* Test Item Value Reference Range Interpretation Comments POC GLUCOSE (test code = POCGLU) MG/DL 70-110 POC ARTERIAL BLOOD [id number] 10:28:00* Test Item Value Reference Range Interpretation Comments POC ARTERIAL BLOOD GAS PH (test code = POCPHA) 7.433 7.35-7. 45 N POC ARTERIAL BLOOD GAS PCO2 (test code = DIGFFM4L) 32.7 mmHg 35. 0-45 L POC TCO2 ARTERIAL (test code = POCTCO2) 22.8 POC ARTERIAL BLOOD GAS PO2 (test code = VWDHV1C) 422.1 mmHg 80-10 0.0 HH POC HCO3 ARTERIAL (test code = SXCQAH2Z) 21.8 MMOL/L 22.0-26.0 L POC BASE EXCESS (test code = POCBEA) -2.2 MMOL/L -4.0-4.0 N POC O2 SATURATION (test code = POCO2S) 100.0 % 90-100 N [id number] 10:28:00* Test Item Value Reference Range Interpretation Comments SODIUM (test code = NA/ABG) 138 MEQ/L 134-147 N [id number] 10:28:00* Test Item Value Reference Range Interpretation Comments POTASSIUM (test code = K/ABG) MEQ/L 3.4-5.0 [id number] 10:28:00* Test Item Value Reference Range Interpretation Comments CHLORIDE (test code = CL/ABG) MEQ/L 100-108 CREATININE [id number] 10:28:00* Test Item Value Reference Range Interpretation Comments CREATININE ABG (test code = CREAABG) mg/dL 0.8-1.3 [id number] 10:28:00* Test Item Value Reference Range Interpretation Comments HEMOGLOBIN (test code = HGB/ABG) G/DL 12.5-16.9 [id number] 10:28:00* Test Item Value Reference Range Interpretation Comments HEMATOCRIT (test code = HCT/ABG) % 37.5-50.7 POC IONIZED [id number] 10:28:00* Test Item Value Reference Range Interpretation Comments POC IONIZED CALCIUM (test code = POCCA) MMOL/L 1.12-1.32 POC [id number] 10:28:00* Test Item Value Reference Range Interpretation Comments POC GLUCOSE (test code = POCGLU) MG/DL 70-110 POC ARTERIAL BLOOD [id number] 10:28:00* Test Item Value Reference Range Interpretation Comments POC ARTERIAL BLOOD GAS PH (test code = POCPHA) 7.433 7.35-7. 45 N POC ARTERIAL BLOOD GAS PCO2 (test code = SRKLSO3Z) 32.7 mmHg 35. 0-45 L POC TCO2 ARTERIAL (test code = POCTCO2) 22.8 POC ARTERIAL BLOOD GAS PO2 (test code = WCMCB3H) 422.1 mmHg 80-10 0.0 HH POC HCO3 ARTERIAL (test code = UCWLRM6Y) 21.8 MMOL/L 22.0-26.0 L POC BASE EXCESS (test code = POCBEA) -2.2 MMOL/L -4.0-4.0 N POC O2 SATURATION (test code = POCO2S) 100.0 % 90-100 N [id number] 10:28:00* Test Item Value Reference Range Interpretation Comments SODIUM (test code = NA/ABG) 138 MEQ/L 134-147 N [id number] 10:28:00* Test Item Value Reference Range Interpretation Comments POTASSIUM (test code = K/ABG) 4.3 MEQ/L 3.4-5.0 N [id number] 10:28:00* Test Item Value Reference Range Interpretation Comments CHLORIDE (test code = CL/ABG) MEQ/L 100-108 CREATININE [id number] 10:28:00* Test Item Value Reference Range Interpretation Comments CREATININE ABG (test code = CREAABG) mg/dL 0.8-1.3 [id number] 10:28:00* Test Item Value Reference Range Interpretation Comments HEMOGLOBIN (test code = HGB/ABG) G/DL 12.5-16.9 [id number] 10:28:00* Test Item Value Reference Range Interpretation Comments HEMATOCRIT (test code = HCT/ABG) % 37.5-50.7 POC IONIZED [id number] 10:28:00* Test Item Value Reference Range Interpretation Comments POC IONIZED CALCIUM (test code = POCCA) MMOL/L 1.12-1.32 POC [id number] 10:28:00* Test Item Value Reference Range Interpretation Comments POC GLUCOSE (test code = POCGLU) MG/DL 70-110 POC ARTERIAL BLOOD [id number] 10:28:00* Test Item Value Reference Range Interpretation Comments POC ARTERIAL BLOOD GAS PH (test code = POCPHA) 7.433 7.35-7. 45 N POC ARTERIAL BLOOD GAS PCO2 (test code = TTTZKK9R) 32.7 mmHg 35. 0-45 L POC TCO2 ARTERIAL (test code = POCTCO2) 22.8 POC ARTERIAL BLOOD GAS PO2 (test code = JMHUW9T) 422.1 mmHg 80-10 0.0 HH POC HCO3 ARTERIAL (test code = HCHMAH3S) 21.8 MMOL/L 22.0-26.0 L POC BASE EXCESS (test code = POCBEA) -2.2 MMOL/L -4.0-4.0 N POC O2 SATURATION (test code = POCO2S) 100.0 % 90-100 N [id number] 10:28:00* Test Item Value Reference Range Interpretation Comments SODIUM (test code = NA/ABG) 138 MEQ/L 134-147 N [id number] 10:28:00* Test Item Value Reference Range Interpretation Comments POTASSIUM (test code = K/ABG) 4.3 MEQ/L 3.4-5.0 N [id number] 10:28:00* Test Item Value Reference Range Interpretation Comments CHLORIDE (test code = CL/ABG) MEQ/L 100-108 CREATININE [id number] 10:28:00* Test Item Value Reference Range Interpretation Comments CREATININE ABG (test code = CREAABG) mg/dL 0.8-1.3 [id number] 10:28:00* Test Item Value Reference Range Interpretation Comments HEMOGLOBIN (test code = HGB/ABG) G/DL 12.5-16.9 [id number] 10:28:00* Test Item Value Reference Range Interpretation Comments HEMATOCRIT (test code = HCT/ABG) % 37.5-50.7 POC IONIZED [id number] 10:28:00* Test Item Value Reference Range Interpretation Comments POC IONIZED CALCIUM (test code = POCCA) 1.16 MMOL/L 1.12-1.32 N POC [id number] 10:28:00* Test Item Value Reference Range Interpretation Comments POC GLUCOSE (test code = POCGLU) MG/DL 70-110 POC ARTERIAL BLOOD [id number] 10:28:00* Test Item Value Reference Range Interpretation Comments POC ARTERIAL BLOOD GAS PH (test code = POCPHA) 7.433 7.35-7. 45 N POC ARTERIAL BLOOD GAS PCO2 (test code = XUFGRC6J) 32.7 mmHg 35. 0-45 L POC TCO2 ARTERIAL (test code = POCTCO2) 22.8 POC ARTERIAL BLOOD GAS PO2 (test code = DBTPA2Z) 422.1 mmHg 80-10 0.0 HH POC HCO3 ARTERIAL (test code = ICFRQP6P) 21.8 MMOL/L 22.0-26.0 L POC BASE EXCESS (test code = POCBEA) -2.2 MMOL/L -4.0-4.0 N POC O2 SATURATION (test code = POCO2S) 100.0 % 90-100 N [id number] 10:28:00* Test Item Value Reference Range Interpretation Comments SODIUM (test code = NA/ABG) 138 MEQ/L 134-147 N [id number] 10:28:00* Test Item Value Reference Range Interpretation Comments POTASSIUM (test code = K/ABG) 4.3 MEQ/L 3.4-5.0 N [id number] 10:28:00* Test Item Value Reference Range Interpretation Comments CHLORIDE (test code = CL/ABG) MEQ/L 100-108 CREATININE [id number] 10:28:00* Test Item Value Reference Range Interpretation Comments CREATININE ABG (test code = CREAABG) mg/dL 0.8-1.3 [id number] 10:28:00* Test Item Value Reference Range Interpretation Comments HEMOGLOBIN (test code = HGB/ABG) G/DL 12.5-16.9 [id number] 10:28:00* Test Item Value Reference Range Interpretation Comments HEMATOCRIT (test code = HCT/ABG) % 37.5-50.7 POC IONIZED [id number] 10:28:00* Test Item Value Reference Range Interpretation Comments POC IONIZED CALCIUM (test code = POCCA) 1.16 MMOL/L 1.12-1.32 N POC [id number] 10:28:00* Test Item Value Reference Range Interpretation Comments POC GLUCOSE (test code = POCGLU) 186 MG/DL 70-110 H POC ARTERIAL BLOOD [id number] 10:28:00* Test Item Value Reference Range Interpretation Comments POC ARTERIAL BLOOD GAS PH (test code = POCPHA) 7.433 7.35-7. 45 N POC ARTERIAL BLOOD GAS PCO2 (test code = EJJXJI1M) 32.7 mmHg 35. 0-45 L POC TCO2 ARTERIAL (test code = POCTCO2) 22.8 POC ARTERIAL BLOOD GAS PO2 (test code = QTTET1U) 422.1 mmHg 80-10 0.0 HH POC HCO3 ARTERIAL (test code = RMMZAW8E) 21.8 MMOL/L 22.0-26.0 L POC BASE EXCESS (test code = POCBEA) -2.2 MMOL/L -4.0-4.0 N POC O2 SATURATION (test code = POCO2S) 100.0 % 90-100 N [id number] 10:28:00* Test Item Value Reference Range Interpretation Comments SODIUM (test code = NA/ABG) 138 MEQ/L 134-147 N [id number] 10:28:00* Test Item Value Reference Range Interpretation Comments POTASSIUM (test code = K/ABG) 4.3 MEQ/L 3.4-5.0 N [id number] 10:28:00* Test Item Value Reference Range Interpretation Comments CHLORIDE (test code = CL/ABG) MEQ/L 100-108 CREATININE [id number] 10:28:00* Test Item Value Reference Range Interpretation Comments CREATININE ABG (test code = CREAABG) mg/dL 0.8-1.3 [id number] 10:28:00* Test Item Value Reference Range Interpretation Comments HEMOGLOBIN (test code = HGB/ABG) G/DL 12.5-16.9 [id number] 10:28:00* Test Item Value Reference Range Interpretation Comments HEMATOCRIT (test code = HCT/ABG) 20 % 37.5-50.7 L POC IONIZED [id number] 10:28:00* Test Item Value Reference Range Interpretation Comments POC IONIZED CALCIUM (test code = POCCA) 1.16 MMOL/L 1.12-1.32 N POC [id number] 10:28:00* Test Item Value Reference Range Interpretation Comments POC GLUCOSE (test code = POCGLU) 186 MG/DL 70-110 H POC ARTERIAL BLOOD [id number] 10:28:00* Test Item Value Reference Range Interpretation Comments POC ARTERIAL BLOOD GAS PH (test code = POCPHA) 7.433 7.35-7. 45 N POC ARTERIAL BLOOD GAS PCO2 (test code = ZDGAYE0Z) 32.7 mmHg 35. 0-45 L POC TCO2 ARTERIAL (test code = POCTCO2) 22.8 POC ARTERIAL BLOOD GAS PO2 (test code = GNWUG6D) 422.1 mmHg 80-10 0.0 HH POC HCO3 ARTERIAL (test code = TRTPJY8E) 21.8 MMOL/L 22.0-26.0 L POC BASE EXCESS (test code = POCBEA) -2.2 MMOL/L -4.0-4.0 N POC O2 SATURATION (test code = POCO2S) 100.0 % 90-100 N [id number] 10:28:00* Test Item Value Reference Range Interpretation Comments SODIUM (test code = NA/ABG) 138 MEQ/L 134-147 N [id number] 10:28:00* Test Item Value Reference Range Interpretation Comments POTASSIUM (test code = K/ABG) 4.3 MEQ/L 3.4-5.0 N [id number] 10:28:00* Test Item Value Reference Range Interpretation Comments CHLORIDE (test code = CL/ABG) MEQ/L 100-108 CREATININE [id number] 10:28:00* Test Item Value Reference Range Interpretation Comments CREATININE ABG (test code = CREAABG) mg/dL 0.8-1.3 [id number] 10:28:00* Test Item Value Reference Range Interpretation Comments HEMOGLOBIN (test code = HGB/ABG) 6.7 G/DL 12.5-16.9 L [id number] 10:28:00* Test Item Value Reference Range Interpretation Comments HEMATOCRIT (test code = HCT/ABG) 20 % 37.5-50.7 L POC IONIZED [id number] 10:28:00* Test Item Value Reference Range Interpretation Comments POC IONIZED CALCIUM (test code = POCCA) 1.16 MMOL/L 1.12-1.32 N POC [id number] 10:28:00* Test Item Value Reference Range Interpretation Comments POC GLUCOSE (test code = POCGLU) 186 MG/DL 70-110 H POC ARTERIAL BLOOD [id number] 10:28:00* Test Item Value Reference Range Interpretation Comments POC ARTERIAL BLOOD GAS PH (test code = POCPHA) 7.433 7.35-7. 45 N POC ARTERIAL BLOOD GAS PCO2 (test code = VCZECH6S) 32.7 mmHg 35. 0-45 L POC TCO2 ARTERIAL (test code = POCTCO2) 22.8 POC ARTERIAL BLOOD GAS PO2 (test code = FWTCG8E) 422.1 mmHg 80-10 0.0 HH POC HCO3 ARTERIAL (test code = YAZGRE6K) 21.8 MMOL/L 22.0-26.0 L POC BASE EXCESS (test code = POCBEA) -2.2 MMOL/L -4.0-4.0 N POC O2 SATURATION (test code = POCO2S) 100.0 % 90-100 N [id number] 10:28:00* Test Item Value Reference Range Interpretation Comments SODIUM (test code = NA/ABG) 138 MEQ/L 134-147 N [id number] 10:28:00* Test Item Value Reference Range Interpretation Comments POTASSIUM (test code = K/ABG) 4.3 MEQ/L 3.4-5.0 N [id number] 10:28:00* Test Item Value Reference Range Interpretation Comments CHLORIDE (test code = CL/ABG) 106 MEQ/L 100-108 N CREATININE [id number] 10:28:00* Test Item Value Reference Range Interpretation Comments CREATININE ABG (test code = CREAABG) mg/dL 0.8-1.3 [id number] 10:28:00* Test Item Value Reference Range Interpretation Comments HEMOGLOBIN (test code = HGB/ABG) 6.7 G/DL 12.5-16.9 L [id number] 10:28:00* Test Item Value Reference Range Interpretation Comments HEMATOCRIT (test code = HCT/ABG) 20 % 37.5-50.7 L POC IONIZED [id number] 10:28:00* Test Item Value Reference Range Interpretation Comments POC IONIZED CALCIUM (test code = POCCA) 1.16 MMOL/L 1.12-1.32 N POC [id number] 10:28:00* Test Item Value Reference Range Interpretation Comments POC GLUCOSE (test code = POCGLU) 186 MG/DL 70-110 H POC ARTERIAL BLOOD [id number] 10:28:00* Test Item Value Reference Range Interpretation Comments POC ARTERIAL BLOOD GAS PH (test code = POCPHA) 7.433 7.35-7. 45 N POC ARTERIAL BLOOD GAS PCO2 (test code = HEVQDY2J) 32.7 mmHg 35. 0-45 L POC TCO2 ARTERIAL (test code = POCTCO2) 22.8 POC ARTERIAL BLOOD GAS PO2 (test code = QSVCH0C) 422.1 mmHg 80-10 0.0 HH POC HCO3 ARTERIAL (test code = SSIAFP0Z) 21.8 MMOL/L 22.0-26.0 L POC BASE EXCESS (test code = POCBEA) -2.2 MMOL/L -4.0-4.0 N POC O2 SATURATION (test code = POCO2S) 100.0 % 90-100 N [id number] 10:28:00* Test Item Value Reference Range Interpretation Comments SODIUM (test code = NA/ABG) 138 MEQ/L 134-147 N [id number] 10:28:00* Test Item Value Reference Range Interpretation Comments POTASSIUM (test code = K/ABG) 4.3 MEQ/L 3.4-5.0 N [id number] 10:28:00* Test Item Value Reference Range Interpretation Comments CHLORIDE (test code = CL/ABG) 106 MEQ/L 100-108 N CREATININE [id number] 10:28:00* Test Item Value Reference Range Interpretation Comments CREATININE ABG (test code = CREAABG) 0.9 mg/dL 0.8-1.3 N [id number] 10:28:00* Test Item Value Reference Range Interpretation Comments HEMOGLOBIN (test code = HGB/ABG) 6.7 G/DL 12.5-16.9 L [id number] 10:28:00* Test Item Value Reference Range Interpretation Comments HEMATOCRIT (test code = HCT/ABG) 20 % 37.5-50.7 L POC IONIZED [id number] 10:28:00* Test Item Value Reference Range Interpretation Comments POC IONIZED CALCIUM (test code = POCCA) 1.16 MMOL/L 1.12-1.32 N POC [id number] 10:28:00* Test Item Value Reference Range Interpretation Comments POC GLUCOSE (test code = POCGLU) 186 MG/DL 70-110 H POC ARTERIAL BLOOD [id number] 10:00:00* Test Item Value Reference Range Interpretation Comments POC ARTERIAL BLOOD GAS PH (test code = POCPHA) 7.412 7.35-7. 45 N POC ARTERIAL BLOOD GAS PCO2 (test code = KUTOAF4U) 38.5 mmHg 35. 0-45 N POC TCO2 ARTERIAL (test code = POCTCO2) 25.7 POC ARTERIAL BLOOD GAS PO2 (test code = YSADY4Q) 425.2 mmHg 80-10 0.0 HH POC HCO3 ARTERIAL (test code = NDQIXG2N) 24.5 MMOL/L 22.0-26.0 N POC BASE EXCESS (test code = POCBEA) -0.1 MMOL/L -4.0-4.0 N POC O2 SATURATION (test code = POCO2S) 100.0 % 90-100 N [id number] 10:00:00* Test Item Value Reference Range Interpretation Comments SODIUM (test code = NA/ABG) MEQ/L 134-147 [id number] 10:00:00* Test Item Value Reference Range Interpretation Comments POTASSIUM (test code = K/ABG) MEQ/L 3.4-5.0 [id number] 10:00:00* Test Item Value Reference Range Interpretation Comments CHLORIDE (test code = CL/ABG) MEQ/L 100-108 CREATININE [id number] 10:00:00* Test Item Value Reference Range Interpretation Comments CREATININE ABG (test code = CREAABG) mg/dL 0.8-1.3 [id number] 10:00:00* Test Item Value Reference Range Interpretation Comments HEMOGLOBIN (test code = HGB/ABG) G/DL 12.5-16.9 [id number] 10:00:00* Test Item Value Reference Range Interpretation Comments HEMATOCRIT (test code = HCT/ABG) % 37.5-50.7 POC IONIZED [id number] 10:00:00* Test Item Value Reference Range Interpretation Comments POC IONIZED CALCIUM (test code = POCCA) MMOL/L 1.12-1.32 POC [id number] 10:00:00* Test Item Value Reference Range Interpretation Comments POC GLUCOSE (test code = POCGLU) MG/DL 70-110 POC ARTERIAL BLOOD [id number] 10:00:00* Test Item Value Reference Range Interpretation Comments POC ARTERIAL BLOOD GAS PH (test code = POCPHA) 7.412 7.35-7. 45 N POC ARTERIAL BLOOD GAS PCO2 (test code = OLXODN4O) 38.5 mmHg 35. 0-45 N POC TCO2 ARTERIAL (test code = POCTCO2) 25.7 POC ARTERIAL BLOOD GAS PO2 (test code = HJSHC1U) 425.2 mmHg 80-10 0.0 HH POC HCO3 ARTERIAL (test code = YHZTIF7X) 24.5 MMOL/L 22.0-26.0 N POC BASE EXCESS (test code = POCBEA) -0.1 MMOL/L -4.0-4.0 N POC O2 SATURATION (test code = POCO2S) 100.0 % 90-100 N [id number] 10:00:00* Test Item Value Reference Range Interpretation Comments SODIUM (test code = NA/ABG) 138 MEQ/L 134-147 N [id number] 10:00:00* Test Item Value Reference Range Interpretation Comments POTASSIUM (test code = K/ABG) MEQ/L 3.4-5.0 [id number] 10:00:00* Test Item Value Reference Range Interpretation Comments CHLORIDE (test code = CL/ABG) MEQ/L 100-108 CREATININE [id number] 10:00:00* Test Item Value Reference Range Interpretation Comments CREATININE ABG (test code = CREAABG) mg/dL 0.8-1.3 [id number] 10:00:00* Test Item Value Reference Range Interpretation Comments HEMOGLOBIN (test code = HGB/ABG) G/DL 12.5-16.9 [id number] 10:00:00* Test Item Value Reference Range Interpretation Comments HEMATOCRIT (test code = HCT/ABG) % 37.5-50.7 POC IONIZED [id number] 10:00:00* Test Item Value Reference Range Interpretation Comments POC IONIZED CALCIUM (test code = POCCA) MMOL/L 1.12-1.32 POC [id number] 10:00:00* Test Item Value Reference Range Interpretation Comments POC GLUCOSE (test code = POCGLU) MG/DL 70-110 POC ARTERIAL BLOOD [id number] 10:00:00* Test Item Value Reference Range Interpretation Comments POC ARTERIAL BLOOD GAS PH (test code = POCPHA) 7.412 7.35-7. 45 N POC ARTERIAL BLOOD GAS PCO2 (test code = LIMRID8T) 38.5 mmHg 35. 0-45 N POC TCO2 ARTERIAL (test code = POCTCO2) 25.7 POC ARTERIAL BLOOD GAS PO2 (test code = DUOVC7I) 425.2 mmHg 80-10 0.0 HH POC HCO3 ARTERIAL (test code = SLVCSW5T) 24.5 MMOL/L 22.0-26.0 N POC BASE EXCESS (test code = POCBEA) -0.1 MMOL/L -4.0-4.0 N POC O2 SATURATION (test code = POCO2S) 100.0 % 90-100 N [id number] 10:00:00* Test Item Value Reference Range Interpretation Comments SODIUM (test code = NA/ABG) 138 MEQ/L 134-147 N [id number] 10:00:00* Test Item Value Reference Range Interpretation Comments POTASSIUM (test code = K/ABG) 4.5 MEQ/L 3.4-5.0 N [id number] 10:00:00* Test Item Value Reference Range Interpretation Comments CHLORIDE (test code = CL/ABG) MEQ/L 100-108 CREATININE [id number] 10:00:00* Test Item Value Reference Range Interpretation Comments CREATININE ABG (test code = CREAABG) mg/dL 0.8-1.3 [id number] 10:00:00* Test Item Value Reference Range Interpretation Comments HEMOGLOBIN (test code = HGB/ABG) G/DL 12.5-16.9 [id number] 10:00:00* Test Item Value Reference Range Interpretation Comments HEMATOCRIT (test code = HCT/ABG) % 37.5-50.7 POC IONIZED [id number] 10:00:00* Test Item Value Reference Range Interpretation Comments POC IONIZED CALCIUM (test code = POCCA) MMOL/L 1.12-1.32 POC [id number] 10:00:00* Test Item Value Reference Range Interpretation Comments POC GLUCOSE (test code = POCGLU) MG/DL 70-110 POC ARTERIAL BLOOD [id number] 10:00:00* Test Item Value Reference Range Interpretation Comments POC ARTERIAL BLOOD GAS PH (test code = POCPHA) 7.412 7.35-7. 45 N POC ARTERIAL BLOOD GAS PCO2 (test code = EZESGN2L) 38.5 mmHg 35. 0-45 N POC TCO2 ARTERIAL (test code = POCTCO2) 25.7 POC ARTERIAL BLOOD GAS PO2 (test code = THTCF7W) 425.2 mmHg 80-10 0.0 HH POC HCO3 ARTERIAL (test code = SLKAHJ4O) 24.5 MMOL/L 22.0-26.0 N POC BASE EXCESS (test code = POCBEA) -0.1 MMOL/L -4.0-4.0 N POC O2 SATURATION (test code = POCO2S) 100.0 % 90-100 N [id number] 10:00:00* Test Item Value Reference Range Interpretation Comments SODIUM (test code = NA/ABG) 138 MEQ/L 134-147 N [id number] 10:00:00* Test Item Value Reference Range Interpretation Comments POTASSIUM (test code = K/ABG) 4.5 MEQ/L 3.4-5.0 N [id number] 10:00:00* Test Item Value Reference Range Interpretation Comments CHLORIDE (test code = CL/ABG) MEQ/L 100-108 CREATININE [id number] 10:00:00* Test Item Value Reference Range Interpretation Comments CREATININE ABG (test code = CREAABG) mg/dL 0.8-1.3 [id number] 10:00:00* Test Item Value Reference Range Interpretation Comments HEMOGLOBIN (test code = HGB/ABG) G/DL 12.5-16.9 [id number] 10:00:00* Test Item Value Reference Range Interpretation Comments HEMATOCRIT (test code = HCT/ABG) % 37.5-50.7 POC IONIZED [id number] 10:00:00* Test Item Value Reference Range Interpretation Comments POC IONIZED CALCIUM (test code = POCCA) 1.13 MMOL/L 1.12-1.32 N POC [id number] 10:00:00* Test Item Value Reference Range Interpretation Comments POC GLUCOSE (test code = POCGLU) MG/DL 70-110 POC ARTERIAL BLOOD [id number] 10:00:00* Test Item Value Reference Range Interpretation Comments POC ARTERIAL BLOOD GAS PH (test code = POCPHA) 7.412 7.35-7. 45 N POC ARTERIAL BLOOD GAS PCO2 (test code = HZNSPJ5U) 38.5 mmHg 35. 0-45 N POC TCO2 ARTERIAL (test code = POCTCO2) 25.7 POC ARTERIAL BLOOD GAS PO2 (test code = TCVYV8L) 425.2 mmHg 80-10 0.0 HH POC HCO3 ARTERIAL (test code = HFZMSS9J) 24.5 MMOL/L 22.0-26.0 N POC BASE EXCESS (test code = POCBEA) -0.1 MMOL/L -4.0-4.0 N POC O2 SATURATION (test code = POCO2S) 100.0 % 90-100 N [id number] 10:00:00* Test Item Value Reference Range Interpretation Comments SODIUM (test code = NA/ABG) 138 MEQ/L 134-147 N [id number] 10:00:00* Test Item Value Reference Range Interpretation Comments POTASSIUM (test code = K/ABG) 4.5 MEQ/L 3.4-5.0 N [id number] 10:00:00* Test Item Value Reference Range Interpretation Comments CHLORIDE (test code = CL/ABG) MEQ/L 100-108 CREATININE [id number] 10:00:00* Test Item Value Reference Range Interpretation Comments CREATININE ABG (test code = CREAABG) mg/dL 0.8-1.3 [id number] 10:00:00* Test Item Value Reference Range Interpretation Comments HEMOGLOBIN (test code = HGB/ABG) G/DL 12.5-16.9 [id number] 10:00:00* Test Item Value Reference Range Interpretation Comments HEMATOCRIT (test code = HCT/ABG) % 37.5-50.7 POC IONIZED [id number] 10:00:00* Test Item Value Reference Range Interpretation Comments POC IONIZED CALCIUM (test code = POCCA) 1.13 MMOL/L 1.12-1.32 N POC [id number] 10:00:00* Test Item Value Reference Range Interpretation Comments POC GLUCOSE (test code = POCGLU) 172 MG/DL 70-110 H POC ARTERIAL BLOOD [id number] 10:00:00* Test Item Value Reference Range Interpretation Comments POC ARTERIAL BLOOD GAS PH (test code = POCPHA) 7.412 7.35-7. 45 N POC ARTERIAL BLOOD GAS PCO2 (test code = JTXZDQ9B) 38.5 mmHg 35. 0-45 N POC TCO2 ARTERIAL (test code = POCTCO2) 25.7 POC ARTERIAL BLOOD GAS PO2 (test code = LVACT5G) 425.2 mmHg 80-10 0.0 HH POC HCO3 ARTERIAL (test code = HIBUJZ0M) 24.5 MMOL/L 22.0-26.0 N POC BASE EXCESS (test code = POCBEA) -0.1 MMOL/L -4.0-4.0 N POC O2 SATURATION (test code = POCO2S) 100.0 % 90-100 N [id number] 10:00:00* Test Item Value Reference Range Interpretation Comments SODIUM (test code = NA/ABG) 138 MEQ/L 134-147 N [id number] 10:00:00* Test Item Value Reference Range Interpretation Comments POTASSIUM (test code = K/ABG) 4.5 MEQ/L 3.4-5.0 N [id number] 10:00:00* Test Item Value Reference Range Interpretation Comments CHLORIDE (test code = CL/ABG) MEQ/L 100-108 CREATININE [id number] 10:00:00* Test Item Value Reference Range Interpretation Comments CREATININE ABG (test code = CREAABG) mg/dL 0.8-1.3 [id number] 10:00:00* Test Item Value Reference Range Interpretation Comments HEMOGLOBIN (test code = HGB/ABG) G/DL 12.5-16.9 [id number] 10:00:00* Test Item Value Reference Range Interpretation Comments HEMATOCRIT (test code = HCT/ABG) 21 % 37.5-50.7 L POC IONIZED [id number] 10:00:00* Test Item Value Reference Range Interpretation Comments POC IONIZED CALCIUM (test code = POCCA) 1.13 MMOL/L 1.12-1.32 N POC [id number] 10:00:00* Test Item Value Reference Range Interpretation Comments POC GLUCOSE (test code = POCGLU) 172 MG/DL 70-110 H POC ARTERIAL BLOOD [id number] 10:00:00* Test Item Value Reference Range Interpretation Comments POC ARTERIAL BLOOD GAS PH (test code = POCPHA) 7.412 7.35-7. 45 N POC ARTERIAL BLOOD GAS PCO2 (test code = KFGXHE1S) 38.5 mmHg 35. 0-45 N POC TCO2 ARTERIAL (test code = POCTCO2) 25.7 POC ARTERIAL BLOOD GAS PO2 (test code = VITYB1D) 425.2 mmHg 80-10 0.0 HH POC HCO3 ARTERIAL (test code = QXCHBO7L) 24.5 MMOL/L 22.0-26.0 N POC BASE EXCESS (test code = POCBEA) -0.1 MMOL/L -4.0-4.0 N POC O2 SATURATION (test code = POCO2S) 100.0 % 90-100 N [id number] 10:00:00* Test Item Value Reference Range Interpretation Comments SODIUM (test code = NA/ABG) 138 MEQ/L 134-147 N [id number] 10:00:00* Test Item Value Reference Range Interpretation Comments POTASSIUM (test code = K/ABG) 4.5 MEQ/L 3.4-5.0 N [id number] 10:00:00* Test Item Value Reference Range Interpretation Comments CHLORIDE (test code = CL/ABG) MEQ/L 100-108 CREATININE [id number] 10:00:00* Test Item Value Reference Range Interpretation Comments CREATININE ABG (test code = CREAABG) mg/dL 0.8-1.3 [id number] 10:00:00* Test Item Value Reference Range Interpretation Comments HEMOGLOBIN (test code = HGB/ABG) 7.3 G/DL 12.5-16.9 L [id number] 10:00:00* Test Item Value Reference Range Interpretation Comments HEMATOCRIT (test code = HCT/ABG) 21 % 37.5-50.7 L POC IONIZED [id number] 10:00:00* Test Item Value Reference Range Interpretation Comments POC IONIZED CALCIUM (test code = POCCA) 1.13 MMOL/L 1.12-1.32 N POC [id number] 10:00:00* Test Item Value Reference Range Interpretation Comments POC GLUCOSE (test code = POCGLU) 172 MG/DL 70-110 H POC ARTERIAL BLOOD [id number] 10:00:00* Test Item Value Reference Range Interpretation Comments POC ARTERIAL BLOOD GAS PH (test code = POCPHA) 7.412 7.35-7. 45 N POC ARTERIAL BLOOD GAS PCO2 (test code = NYTASC2X) 38.5 mmHg 35. 0-45 N POC TCO2 ARTERIAL (test code = POCTCO2) 25.7 POC ARTERIAL BLOOD GAS PO2 (test code = IBXCL4H) 425.2 mmHg 80-10 0.0 HH POC HCO3 ARTERIAL (test code = ASDETU0F) 24.5 MMOL/L 22.0-26.0 N POC BASE EXCESS (test code = POCBEA) -0.1 MMOL/L -4.0-4.0 N POC O2 SATURATION (test code = POCO2S) 100.0 % 90-100 N [id number] 10:00:00* Test Item Value Reference Range Interpretation Comments SODIUM (test code = NA/ABG) 138 MEQ/L 134-147 N [id number] 10:00:00* Test Item Value Reference Range Interpretation Comments POTASSIUM (test code = K/ABG) 4.5 MEQ/L 3.4-5.0 N [id number] 10:00:00* Test Item Value Reference Range Interpretation Comments CHLORIDE (test code = CL/ABG) 106 MEQ/L 100-108 N CREATININE [id number] 10:00:00* Test Item Value Reference Range Interpretation Comments CREATININE ABG (test code = CREAABG) mg/dL 0.8-1.3 [id number] 10:00:00* Test Item Value Reference Range Interpretation Comments HEMOGLOBIN (test code = HGB/ABG) 7.3 G/DL 12.5-16.9 L [id number] 10:00:00* Test Item Value Reference Range Interpretation Comments HEMATOCRIT (test code = HCT/ABG) 21 % 37.5-50.7 L POC IONIZED [id number] 10:00:00* Test Item Value Reference Range Interpretation Comments POC IONIZED CALCIUM (test code = POCCA) 1.13 MMOL/L 1.12-1.32 N POC [id number] 10:00:00* Test Item Value Reference Range Interpretation Comments POC GLUCOSE (test code = POCGLU) 172 MG/DL 70-110 H POC ARTERIAL BLOOD [id number] 10:00:00* Test Item Value Reference Range Interpretation Comments POC ARTERIAL BLOOD GAS PH (test code = POCPHA) 7.412 7.35-7. 45 N POC ARTERIAL BLOOD GAS PCO2 (test code = WYWCQX2X) 38.5 mmHg 35. 0-45 N POC TCO2 ARTERIAL (test code = POCTCO2) 25.7 POC ARTERIAL BLOOD GAS PO2 (test code = WDDJJ9G) 425.2 mmHg 80-10 0.0 HH POC HCO3 ARTERIAL (test code = YJHITP6U) 24.5 MMOL/L 22.0-26.0 N POC BASE EXCESS (test code = POCBEA) -0.1 MMOL/L -4.0-4.0 N POC O2 SATURATION (test code = POCO2S) 100.0 % 90-100 N [id number] 10:00:00* Test Item Value Reference Range Interpretation Comments SODIUM (test code = NA/ABG) 138 MEQ/L 134-147 N [id number] 10:00:00* Test Item Value Reference Range Interpretation Comments POTASSIUM (test code = K/ABG) 4.5 MEQ/L 3.4-5.0 N [id number] 10:00:00* Test Item Value Reference Range Interpretation Comments CHLORIDE (test code = CL/ABG) 106 MEQ/L 100-108 N CREATININE [id number] 10:00:00* Test Item Value Reference Range Interpretation Comments CREATININE ABG (test code = CREAABG) 0.8 mg/dL 0.8-1.3 N [id number] 10:00:00* Test Item Value Reference Range Interpretation Comments HEMOGLOBIN (test code = HGB/ABG) 7.3 G/DL 12.5-16.9 L [id number] 10:00:00* Test Item Value Reference Range Interpretation Comments HEMATOCRIT (test code = HCT/ABG) 21 % 37.5-50.7 L POC IONIZED [id number] 10:00:00* Test Item Value Reference Range Interpretation Comments POC IONIZED CALCIUM (test code = POCCA) 1.13 MMOL/L 1.12-1.32 N POC [id number] 10:00:00* Test Item Value Reference Range Interpretation Comments POC GLUCOSE (test code = POCGLU) 172 MG/DL 70-110 H POC ARTERIAL BLOOD [id number] 09:38:00* Test Item Value Reference Range Interpretation Comments POC ARTERIAL BLOOD GAS PH (test code = POCPHA) 7.381 7.35-7. 45 N POC ARTERIAL BLOOD GAS PCO2 (test code = RRIZTU5J) 38.2 mmHg 35. 0-45 N POC TCO2 ARTERIAL (test code = POCTCO2) 23.8 POC ARTERIAL BLOOD GAS PO2 (test code = VRDLH4P) 204.7 mmHg 80-10 0.0 HH POC HCO3 ARTERIAL (test code = VDHUHD4P) 22.6 MMOL/L 22.0-26.0 N POC BASE EXCESS (test code = POCBEA) -2.2 MMOL/L -4.0-4.0 N POC O2 SATURATION (test code = POCO2S) 99.7 % 90-100 N [id number] 09:38:00* Test Item Value Reference Range Interpretation Comments SODIUM (test code = NA/ABG) MEQ/L 134-147 [id number] 09:38:00* Test Item Value Reference Range Interpretation Comments POTASSIUM (test code = K/ABG) MEQ/L 3.4-5.0 [id number] 09:38:00* Test Item Value Reference Range Interpretation Comments CHLORIDE (test code = CL/ABG) MEQ/L 100-108 CREATININE [id number] 09:38:00* Test Item Value Reference Range Interpretation Comments CREATININE ABG (test code = CREAABG) mg/dL 0.8-1.3 [id number] 09:38:00* Test Item Value Reference Range Interpretation Comments HEMOGLOBIN (test code = HGB/ABG) G/DL 12.5-16.9 [id number] 09:38:00* Test Item Value Reference Range Interpretation Comments HEMATOCRIT (test code = HCT/ABG) % 37.5-50.7 POC IONIZED [id number] 09:38:00* Test Item Value Reference Range Interpretation Comments POC IONIZED CALCIUM (test code = POCCA) MMOL/L 1.12-1.32 POC [id number] 09:38:00* Test Item Value Reference Range Interpretation Comments POC GLUCOSE (test code = POCGLU) MG/DL 70-110 POC ARTERIAL BLOOD [id number] 09:38:00* Test Item Value Reference Range Interpretation Comments POC ARTERIAL BLOOD GAS PH (test code = POCPHA) 7.381 7.35-7. 45 N POC ARTERIAL BLOOD GAS PCO2 (test code = NFCLWK2B) 38.2 mmHg 35. 0-45 N POC TCO2 ARTERIAL (test code = POCTCO2) 23.8 POC ARTERIAL BLOOD GAS PO2 (test code = YTRTK5L) 204.7 mmHg 80-10 0.0 HH POC HCO3 ARTERIAL (test code = STTGZP4Q) 22.6 MMOL/L 22.0-26.0 N POC BASE EXCESS (test code = POCBEA) -2.2 MMOL/L -4.0-4.0 N POC O2 SATURATION (test code = POCO2S) 99.7 % 90-100 N [id number] 09:38:00* Test Item Value Reference Range Interpretation Comments SODIUM (test code = NA/ABG) 138 MEQ/L 134-147 N [id number] 09:38:00* Test Item Value Reference Range Interpretation Comments POTASSIUM (test code = K/ABG) MEQ/L 3.4-5.0 [id number] 09:38:00* Test Item Value Reference Range Interpretation Comments CHLORIDE (test code = CL/ABG) MEQ/L 100-108 CREATININE [id number] 09:38:00* Test Item Value Reference Range Interpretation Comments CREATININE ABG (test code = CREAABG) mg/dL 0.8-1.3 [id number] 09:38:00* Test Item Value Reference Range Interpretation Comments HEMOGLOBIN (test code = HGB/ABG) G/DL 12.5-16.9 [id number] 09:38:00* Test Item Value Reference Range Interpretation Comments HEMATOCRIT (test code = HCT/ABG) % 37.5-50.7 POC IONIZED [id number] 09:38:00* Test Item Value Reference Range Interpretation Comments POC IONIZED CALCIUM (test code = POCCA) MMOL/L 1.12-1.32 POC [id number] 09:38:00* Test Item Value Reference Range Interpretation Comments POC GLUCOSE (test code = POCGLU) MG/DL 70-110 POC ARTERIAL BLOOD [id number] 09:38:00* Test Item Value Reference Range Interpretation Comments POC ARTERIAL BLOOD GAS PH (test code = POCPHA) 7.381 7.35-7. 45 N POC ARTERIAL BLOOD GAS PCO2 (test code = NOGUTM2R) 38.2 mmHg 35. 0-45 N POC TCO2 ARTERIAL (test code = POCTCO2) 23.8 POC ARTERIAL BLOOD GAS PO2 (test code = UHDBV4X) 204.7 mmHg 80-10 0.0 HH POC HCO3 ARTERIAL (test code = EXTSHT4R) 22.6 MMOL/L 22.0-26.0 N POC BASE EXCESS (test code = POCBEA) -2.2 MMOL/L -4.0-4.0 N POC O2 SATURATION (test code = POCO2S) 99.7 % 90-100 N [id number] 09:38:00* Test Item Value Reference Range Interpretation Comments SODIUM (test code = NA/ABG) 138 MEQ/L 134-147 N [id number] 09:38:00* Test Item Value Reference Range Interpretation Comments POTASSIUM (test code = K/ABG) 4.1 MEQ/L 3.4-5.0 N [id number] 09:38:00* Test Item Value Reference Range Interpretation Comments CHLORIDE (test code = CL/ABG) MEQ/L 100-108 CREATININE [id number] 09:38:00* Test Item Value Reference Range Interpretation Comments CREATININE ABG (test code = CREAABG) mg/dL 0.8-1.3 [id number] 09:38:00* Test Item Value Reference Range Interpretation Comments HEMOGLOBIN (test code = HGB/ABG) G/DL 12.5-16.9 [id number] 09:38:00* Test Item Value Reference Range Interpretation Comments HEMATOCRIT (test code = HCT/ABG) % 37.5-50.7 POC IONIZED [id number] 09:38:00* Test Item Value Reference Range Interpretation Comments POC IONIZED CALCIUM (test code = POCCA) MMOL/L 1.12-1.32 POC [id number] 09:38:00* Test Item Value Reference Range Interpretation Comments POC GLUCOSE (test code = POCGLU) MG/DL 70-110 POC ARTERIAL BLOOD [id number] 09:38:00* Test Item Value Reference Range Interpretation Comments POC ARTERIAL BLOOD GAS PH (test code = POCPHA) 7.381 7.35-7. 45 N POC ARTERIAL BLOOD GAS PCO2 (test code = ILQQFV8I) 38.2 mmHg 35. 0-45 N POC TCO2 ARTERIAL (test code = POCTCO2) 23.8 POC ARTERIAL BLOOD GAS PO2 (test code = CGZNR4O) 204.7 mmHg 80-10 0.0 HH POC HCO3 ARTERIAL (test code = OFDONA3W) 22.6 MMOL/L 22.0-26.0 N POC BASE EXCESS (test code = POCBEA) -2.2 MMOL/L -4.0-4.0 N POC O2 SATURATION (test code = POCO2S) 99.7 % 90-100 N [id number] 09:38:00* Test Item Value Reference Range Interpretation Comments SODIUM (test code = NA/ABG) 138 MEQ/L 134-147 N [id number] 09:38:00* Test Item Value Reference Range Interpretation Comments POTASSIUM (test code = K/ABG) 4.1 MEQ/L 3.4-5.0 N [id number] 09:38:00* Test Item Value Reference Range Interpretation Comments CHLORIDE (test code = CL/ABG) MEQ/L 100-108 CREATININE [id number] 09:38:00* Test Item Value Reference Range Interpretation Comments CREATININE ABG (test code = CREAABG) mg/dL 0.8-1.3 [id number] 09:38:00* Test Item Value Reference Range Interpretation Comments HEMOGLOBIN (test code = HGB/ABG) G/DL 12.5-16.9 [id number] 09:38:00* Test Item Value Reference Range Interpretation Comments HEMATOCRIT (test code = HCT/ABG) % 37.5-50.7 POC IONIZED [id number] 09:38:00* Test Item Value Reference Range Interpretation Comments POC IONIZED CALCIUM (test code = POCCA) 1.21 MMOL/L 1.12-1.32 N POC [id number] 09:38:00* Test Item Value Reference Range Interpretation Comments POC GLUCOSE (test code = POCGLU) MG/DL 70-110 POC ARTERIAL BLOOD [id number] 09:38:00* Test Item Value Reference Range Interpretation Comments POC ARTERIAL BLOOD GAS PH (test code = POCPHA) 7.381 7.35-7. 45 N POC ARTERIAL BLOOD GAS PCO2 (test code = WHNIUY4I) 38.2 mmHg 35. 0-45 N POC TCO2 ARTERIAL (test code = POCTCO2) 23.8 POC ARTERIAL BLOOD GAS PO2 (test code = NRBLQ9Q) 204.7 mmHg 80-10 0.0 HH POC HCO3 ARTERIAL (test code = SWNRLZ2O) 22.6 MMOL/L 22.0-26.0 N POC BASE EXCESS (test code = POCBEA) -2.2 MMOL/L -4.0-4.0 N POC O2 SATURATION (test code = POCO2S) 99.7 % 90-100 N [id number] 09:38:00* Test Item Value Reference Range Interpretation Comments SODIUM (test code = NA/ABG) 138 MEQ/L 134-147 N [id number] 09:38:00* Test Item Value Reference Range Interpretation Comments POTASSIUM (test code = K/ABG) 4.1 MEQ/L 3.4-5.0 N [id number] 09:38:00* Test Item Value Reference Range Interpretation Comments CHLORIDE (test code = CL/ABG) MEQ/L 100-108 CREATININE [id number] 09:38:00* Test Item Value Reference Range Interpretation Comments CREATININE ABG (test code = CREAABG) mg/dL 0.8-1.3 [id number] 09:38:00* Test Item Value Reference Range Interpretation Comments HEMOGLOBIN (test code = HGB/ABG) G/DL 12.5-16.9 [id number] 09:38:00* Test Item Value Reference Range Interpretation Comments HEMATOCRIT (test code = HCT/ABG) % 37.5-50.7 POC IONIZED [id number] 09:38:00* Test Item Value Reference Range Interpretation Comments POC IONIZED CALCIUM (test code = POCCA) 1.21 MMOL/L 1.12-1.32 N POC [id number] 09:38:00* Test Item Value Reference Range Interpretation Comments POC GLUCOSE (test code = POCGLU) 182 MG/DL 70-110 H POC ARTERIAL BLOOD [id number] 09:38:00* Test Item Value Reference Range Interpretation Comments POC ARTERIAL BLOOD GAS PH (test code = POCPHA) 7.381 7.35-7. 45 N POC ARTERIAL BLOOD GAS PCO2 (test code = MXSDQO5B) 38.2 mmHg 35. 0-45 N POC TCO2 ARTERIAL (test code = POCTCO2) 23.8 POC ARTERIAL BLOOD GAS PO2 (test code = FXULD7C) 204.7 mmHg 80-10 0.0 HH POC HCO3 ARTERIAL (test code = MTHNPG5S) 22.6 MMOL/L 22.0-26.0 N POC BASE EXCESS (test code = POCBEA) -2.2 MMOL/L -4.0-4.0 N POC O2 SATURATION (test code = POCO2S) 99.7 % 90-100 N [id number] 09:38:00* Test Item Value Reference Range Interpretation Comments SODIUM (test code = NA/ABG) 138 MEQ/L 134-147 N [id number] 09:38:00* Test Item Value Reference Range Interpretation Comments POTASSIUM (test code = K/ABG) 4.1 MEQ/L 3.4-5.0 N [id number] 09:38:00* Test Item Value Reference Range Interpretation Comments CHLORIDE (test code = CL/ABG) MEQ/L 100-108 CREATININE [id number] 09:38:00* Test Item Value Reference Range Interpretation Comments CREATININE ABG (test code = CREAABG) mg/dL 0.8-1.3 [id number] 09:38:00* Test Item Value Reference Range Interpretation Comments HEMOGLOBIN (test code = HGB/ABG) G/DL 12.5-16.9 [id number] 09:38:00* Test Item Value Reference Range Interpretation Comments HEMATOCRIT (test code = HCT/ABG) 31 % 37.5-50.7 L POC IONIZED [id number] 09:38:00* Test Item Value Reference Range Interpretation Comments POC IONIZED CALCIUM (test code = POCCA) 1.21 MMOL/L 1.12-1.32 N POC [id number] 09:38:00* Test Item Value Reference Range Interpretation Comments POC GLUCOSE (test code = POCGLU) 182 MG/DL 70-110 H POC ARTERIAL BLOOD [id number] 09:38:00* Test Item Value Reference Range Interpretation Comments POC ARTERIAL BLOOD GAS PH (test code = POCPHA) 7.381 7.35-7. 45 N POC ARTERIAL BLOOD GAS PCO2 (test code = IIQEOH1B) 38.2 mmHg 35. 0-45 N POC TCO2 ARTERIAL (test code = POCTCO2) 23.8 POC ARTERIAL BLOOD GAS PO2 (test code = ILBXB5B) 204.7 mmHg 80-10 0.0 HH POC HCO3 ARTERIAL (test code = DNSBQJ2I) 22.6 MMOL/L 22.0-26.0 N POC BASE EXCESS (test code = POCBEA) -2.2 MMOL/L -4.0-4.0 N POC O2 SATURATION (test code = POCO2S) 99.7 % 90-100 N [id number] 09:38:00* Test Item Value Reference Range Interpretation Comments SODIUM (test code = NA/ABG) 138 MEQ/L 134-147 N [id number] 09:38:00* Test Item Value Reference Range Interpretation Comments POTASSIUM (test code = K/ABG) 4.1 MEQ/L 3.4-5.0 N [id number] 09:38:00* Test Item Value Reference Range Interpretation Comments CHLORIDE (test code = CL/ABG) MEQ/L 100-108 CREATININE [id number] 09:38:00* Test Item Value Reference Range Interpretation Comments CREATININE ABG (test code = CREAABG) mg/dL 0.8-1.3 [id number] 09:38:00* Test Item Value Reference Range Interpretation Comments HEMOGLOBIN (test code = HGB/ABG) 10.6 G/DL 12.5-16.9 L [id number] 09:38:00* Test Item Value Reference Range Interpretation Comments HEMATOCRIT (test code = HCT/ABG) 31 % 37.5-50.7 L POC IONIZED [id number] 09:38:00* Test Item Value Reference Range Interpretation Comments POC IONIZED CALCIUM (test code = POCCA) 1.21 MMOL/L 1.12-1.32 N POC [id number] 09:38:00* Test Item Value Reference Range Interpretation Comments POC GLUCOSE (test code = POCGLU) 182 MG/DL 70-110 H POC ARTERIAL BLOOD [id number] 09:38:00* Test Item Value Reference Range Interpretation Comments POC ARTERIAL BLOOD GAS PH (test code = POCPHA) 7.381 7.35-7. 45 N POC ARTERIAL BLOOD GAS PCO2 (test code = YYCIER7C) 38.2 mmHg 35. 0-45 N POC TCO2 ARTERIAL (test code = POCTCO2) 23.8 POC ARTERIAL BLOOD GAS PO2 (test code = IYJIT7D) 204.7 mmHg 80-10 0.0 HH POC HCO3 ARTERIAL (test code = BGVWBS6L) 22.6 MMOL/L 22.0-26.0 N POC BASE EXCESS (test code = POCBEA) -2.2 MMOL/L -4.0-4.0 N POC O2 SATURATION (test code = POCO2S) 99.7 % 90-100 N [id number] 09:38:00* Test Item Value Reference Range Interpretation Comments SODIUM (test code = NA/ABG) 138 MEQ/L 134-147 N [id number] 09:38:00* Test Item Value Reference Range Interpretation Comments POTASSIUM (test code = K/ABG) 4.1 MEQ/L 3.4-5.0 N [id number] 09:38:00* Test Item Value Reference Range Interpretation Comments CHLORIDE (test code = CL/ABG) 109 MEQ/L 100-108 H CREATININE [id number] 09:38:00* Test Item Value Reference Range Interpretation Comments CREATININE ABG (test code = CREAABG) mg/dL 0.8-1.3 [id number] 09:38:00* Test Item Value Reference Range Interpretation Comments HEMOGLOBIN (test code = HGB/ABG) 10.6 G/DL 12.5-16.9 L [id number] 09:38:00* Test Item Value Reference Range Interpretation Comments HEMATOCRIT (test code = HCT/ABG) 31 % 37.5-50.7 L POC IONIZED [id number] 09:38:00* Test Item Value Reference Range Interpretation Comments POC IONIZED CALCIUM (test code = POCCA) 1.21 MMOL/L 1.12-1.32 N POC [id number] 09:38:00* Test Item Value Reference Range Interpretation Comments POC GLUCOSE (test code = POCGLU) 182 MG/DL 70-110 H POC ARTERIAL BLOOD [id number] 09:38:00* Test Item Value Reference Range Interpretation Comments POC ARTERIAL BLOOD GAS PH (test code = POCPHA) 7.381 7.35-7. 45 N POC ARTERIAL BLOOD GAS PCO2 (test code = TNXJCT8C) 38.2 mmHg 35. 0-45 N POC TCO2 ARTERIAL (test code = POCTCO2) 23.8 POC ARTERIAL BLOOD GAS PO2 (test code = SRYLH4Y) 204.7 mmHg 80-10 0.0 HH POC HCO3 ARTERIAL (test code = WCHCEV3I) 22.6 MMOL/L 22.0-26.0 N POC BASE EXCESS (test code = POCBEA) -2.2 MMOL/L -4.0-4.0 N POC O2 SATURATION (test code = POCO2S) 99.7 % 90-100 N [id number] 09:38:00* Test Item Value Reference Range Interpretation Comments SODIUM (test code = NA/ABG) 138 MEQ/L 134-147 N [id number] 09:38:00* Test Item Value Reference Range Interpretation Comments POTASSIUM (test code = K/ABG) 4.1 MEQ/L 3.4-5.0 N [id number] 09:38:00* Test Item Value Reference Range Interpretation Comments CHLORIDE (test code = CL/ABG) 109 MEQ/L 100-108 H CREATININE [id number] 09:38:00* Test Item Value Reference Range Interpretation Comments CREATININE ABG (test code = CREAABG) 0.9 mg/dL 0.8-1.3 [id number] 09:38:00* Test Item Value Reference Range Interpretation Comments HEMOGLOBIN (test code = HGB/ABG) 10.6 G/DL 12.5-16.9 L [id number] 09:38:00* Test Item Value Reference Range Interpretation Comments HEMATOCRIT (test code = HCT/ABG) 31 % 37.5-50.7 L POC IONIZED [id number] 09:38:00* Test Item Value Reference Range Interpretation Comments POC IONIZED CALCIUM (test code = POCCA) 1.21 MMOL/L 1.12-1.32 N POC [id number] 09:38:00* Test Item Value Reference Range Interpretation Comments POC GLUCOSE (test code = POCGLU) 182 MG/DL 70-110 H BASIC METABOLIC [id number] 07:12:00* Test Item Value Reference Range Interpretation [...] = LDL) 73 mg/dL 0-100 N <100 [id number] NEAR OPTIMAL/ABOVE [id number] SMVLRBDKEE755-314 HIGH>LY=924 VERY HIGH*Guidelines provided by the National Cholesterol EducationProgram Adult Treatment Panel III POC ARTERIAL BLOOD [id number] 07:07:00* Test Item Value Reference Range Interpretation Comments POC ARTERIAL BLOOD GAS PH (test code = POCPHA) 7.365 7.35-7. 45 N POC ARTERIAL BLOOD GAS PCO2 (test code = NKECHB4C) 47.5 mmHg 35. 0-45 H POC TCO2 ARTERIAL (test code = POCTCO2) 28.6 POC ARTERIAL BLOOD GAS PO2 (test code = HZFJG9H) 90.0 mmHg 80-10 0.0 N POC HCO3 ARTERIAL (test code = CHCHUV7D) 27.2 MMOL/L 22.0-26.0 H POC BASE EXCESS (test code = POCBEA) 1.2 MMOL/L -4.0-4.0 N POC O2 SATURATION (test code = POCO2S) 96.5 % 90-100 N [id number] 07:07:00* Test Item Value Reference Range Interpretation Comments SODIUM (test code = NA/ABG) MEQ/L 134-147 [id number] 07:07:00* Test Item Value Reference Range Interpretation Comments POTASSIUM (test code = K/ABG) MEQ/L 3.4-5.0 [id number] 07:07:00* Test Item Value Reference Range Interpretation Comments CHLORIDE (test code = CL/ABG) MEQ/L 100-108 CREATININE [id number] 07:07:00* Test Item Value Reference Range Interpretation Comments CREATININE ABG (test code = CREAABG) mg/dL 0.8-1.3 [id number] 07:07:00* Test Item Value Reference Range Interpretation Comments HEMOGLOBIN (test code = HGB/ABG) G/DL 12.5-16.9 [id number] 07:07:00* Test Item Value Reference Range Interpretation Comments HEMATOCRIT (test code = HCT/ABG) % 37.5-50.7 POC IONIZED [id number] 07:07:00* Test Item Value Reference Range Interpretation Comments POC IONIZED CALCIUM (test code = POCCA) MMOL/L 1.12-1.32 POC [id number] 07:07:00* Test Item Value Reference Range Interpretation Comments POC GLUCOSE (test code = POCGLU) MG/DL 70-110 POC ARTERIAL BLOOD [id number] 07:07:00* Test Item Value Reference Range Interpretation Comments POC ARTERIAL BLOOD GAS PH (test code = POCPHA) 7.365 7.35-7. 45 N POC ARTERIAL BLOOD GAS PCO2 (test code = BCJOQA6D) 47.5 mmHg 35. 0-45 H POC TCO2 ARTERIAL (test code = POCTCO2) 28.6 POC ARTERIAL BLOOD GAS PO2 (test code = UPSMY7O) 90.0 mmHg 80-10 0.0 N POC HCO3 ARTERIAL (test code = AGGRVE9U) 27.2 MMOL/L 22.0-26.0 H POC BASE EXCESS (test code = POCBEA) 1.2 MMOL/L -4.0-4.0 N POC O2 SATURATION (test code = POCO2S) 96.5 % 90-100 N [id number] 07:07:00* Test Item Value Reference Range Interpretation Comments SODIUM (test code = NA/ABG) 137 MEQ/L 134-147 N [id number] 07:07:00* Test Item Value Reference Range Interpretation Comments POTASSIUM (test code = K/ABG) MEQ/L 3.4-5.0 [id number] 07:07:00* Test Item Value Reference Range Interpretation Comments CHLORIDE (test code = CL/ABG) MEQ/L 100-108 CREATININE [id number] 07:07:00* Test Item Value Reference Range Interpretation Comments CREATININE ABG (test code = CREAABG) mg/dL 0.8-1.3 [id number] 07:07:00* Test Item Value Reference Range Interpretation Comments HEMOGLOBIN (test code = HGB/ABG) G/DL 12.5-16.9 [id number] 07:07:00* Test Item Value Reference Range Interpretation Comments HEMATOCRIT (test code = HCT/ABG) % 37.5-50.7 POC IONIZED [id number] 07:07:00* Test Item Value Reference Range Interpretation Comments POC IONIZED CALCIUM (test code = POCCA) MMOL/L 1.12-1.32 POC [id number] 07:07:00* Test Item Value Reference Range Interpretation Comments POC GLUCOSE (test code = POCGLU) MG/DL 70-110 POC ARTERIAL BLOOD [id number] 07:07:00* Test Item Value Reference Range Interpretation Comments POC ARTERIAL BLOOD GAS PH (test code = POCPHA) 7.365 7.35-7. 45 N POC ARTERIAL BLOOD GAS PCO2 (test code = FLYSGA3U) 47.5 mmHg 35. 0-45 H POC TCO2 ARTERIAL (test code = POCTCO2) 28.6 POC ARTERIAL BLOOD GAS PO2 (test code = IZQOY2Y) 90.0 mmHg 80-10 0.0 N POC HCO3 ARTERIAL (test code = OGRVWP7T) 27.2 MMOL/L 22.0-26.0 H POC BASE EXCESS (test code = POCBEA) 1.2 MMOL/L -4.0-4.0 N POC O2 SATURATION (test code = POCO2S) 96.5 % 90-100 N [id number] 07:07:00* Test Item Value Reference Range Interpretation Comments SODIUM (test code = NA/ABG) 137 MEQ/L 134-147 N [id number] 07:07:00* Test Item Value Reference Range Interpretation Comments POTASSIUM (test code = K/ABG) 4.5 MEQ/L 3.4-5.0 N [id number] 07:07:00* Test Item Value Reference Range Interpretation Comments CHLORIDE (test code = CL/ABG) MEQ/L 100-108 CREATININE [id number] 07:07:00* Test Item Value Reference Range Interpretation Comments CREATININE ABG (test code = CREAABG) mg/dL 0.8-1.3 [id number] 07:07:00* Test Item Value Reference Range Interpretation Comments HEMOGLOBIN (test code = HGB/ABG) G/DL 12.5-16.9 [id number] 07:07:00* Test Item Value Reference Range Interpretation Comments HEMATOCRIT (test code = HCT/ABG) % 37.5-50.7 POC IONIZED [id number] 07:07:00* Test Item Value Reference Range Interpretation Comments POC IONIZED CALCIUM (test code = POCCA) MMOL/L 1.12-1.32 POC [id number] 07:07:00* Test Item Value Reference Range Interpretation Comments POC GLUCOSE (test code = POCGLU) MG/DL 70-110 POC ARTERIAL BLOOD [id number] 07:07:00* Test Item Value Reference Range Interpretation Comments POC ARTERIAL BLOOD GAS PH (test code = POCPHA) 7.365 7.35-7. 45 N POC ARTERIAL BLOOD GAS PCO2 (test code = HOXHAB2W) 47.5 mmHg 35. 0-45 H POC TCO2 ARTERIAL (test code = POCTCO2) 28.6 POC ARTERIAL BLOOD GAS PO2 (test code = XRLQD5D) 90.0 mmHg 80-10 0.0 N POC HCO3 ARTERIAL (test code = FFKXSL5X) 27.2 MMOL/L 22.0-26.0 H POC BASE EXCESS (test code = POCBEA) 1.2 MMOL/L -4.0-4.0 N POC O2 SATURATION (test code = POCO2S) 96.5 % 90-100 N [id number] 07:07:00* Test Item Value Reference Range Interpretation Comments SODIUM (test code = NA/ABG) 137 MEQ/L 134-147 N [id number] 07:07:00* Test Item Value Reference Range Interpretation Comments POTASSIUM (test code = K/ABG) 4.5 MEQ/L 3.4-5.0 N [id number] 07:07:00* Test Item Value Reference Range Interpretation Comments CHLORIDE (test code = CL/ABG) MEQ/L 100-108 CREATININE [id number] 07:07:00* Test Item Value Reference Range Interpretation Comments CREATININE ABG (test code = CREAABG) mg/dL 0.8-1.3 [id number] 07:07:00* Test Item Value Reference Range Interpretation Comments HEMOGLOBIN (test code = HGB/ABG) G/DL 12.5-16.9 [id number] 07:07:00* Test Item Value Reference Range Interpretation Comments HEMATOCRIT (test code = HCT/ABG) % 37.5-50.7 POC IONIZED [id number] 07:07:00* Test Item Value Reference Range Interpretation Comments POC IONIZED CALCIUM (test code = POCCA) 1.23 MMOL/L 1.12-1.32 N POC [id number] 07:07:00* Test Item Value Reference Range Interpretation Comments POC GLUCOSE (test code = POCGLU) MG/DL 70-110 POC ARTERIAL BLOOD [id number] 07:07:00* Test Item Value Reference Range Interpretation Comments POC ARTERIAL BLOOD GAS PH (test code = POCPHA) 7.365 7.35-7. 45 N POC ARTERIAL BLOOD GAS PCO2 (test code = EPEJET3Q) 47.5 mmHg 35. 0-45 H POC TCO2 ARTERIAL (test code = POCTCO2) 28.6 POC ARTERIAL BLOOD GAS PO2 (test code = JYWGU7D) 90.0 mmHg 80-10 0.0 N POC HCO3 ARTERIAL (test code = IGPBBC6L) 27.2 MMOL/L 22.0-26.0 H POC BASE EXCESS (test code = POCBEA) 1.2 MMOL/L -4.0-4.0 N POC O2 SATURATION (test code = POCO2S) 96.5 % 90-100 N [id number] 07:07:00* Test Item Value Reference Range Interpretation Comments SODIUM (test code = NA/ABG) 137 MEQ/L 134-147 N [id number] 07:07:00* Test Item Value Reference Range Interpretation Comments POTASSIUM (test code = K/ABG) 4.5 MEQ/L 3.4-5.0 N [id number] 07:07:00* Test Item Value Reference Range Interpretation Comments CHLORIDE (test code = CL/ABG) MEQ/L 100-108 CREATININE [id number] 07:07:00* Test Item Value Reference Range Interpretation Comments CREATININE ABG (test code = CREAABG) mg/dL 0.8-1.3 [id number] 07:07:00* Test Item Value Reference Range Interpretation Comments HEMOGLOBIN (test code = HGB/ABG) G/DL 12.5-16.9 [id number] 07:07:00* Test Item Value Reference Range Interpretation Comments HEMATOCRIT (test code = HCT/ABG) % 37.5-50.7 POC IONIZED [id number] 07:07:00* Test Item Value Reference Range Interpretation Comments POC IONIZED CALCIUM (test code = POCCA) 1.23 MMOL/L 1.12-1.32 N POC [id number] 07:07:00* Test Item Value Reference Range Interpretation Comments POC GLUCOSE (test code = POCGLU) 170 MG/DL 70-110 H POC ARTERIAL BLOOD [id number] 07:07:00* Test Item Value Reference Range Interpretation Comments POC ARTERIAL BLOOD GAS PH (test code = POCPHA) 7.365 7.35-7. 45 N POC ARTERIAL BLOOD GAS PCO2 (test code = VSPZFH1P) 47.5 mmHg 35. 0-45 H POC TCO2 ARTERIAL (test code = POCTCO2) 28.6 POC ARTERIAL BLOOD GAS PO2 (test code = ROJRB7M) 90.0 mmHg 80-10 0.0 N POC HCO3 ARTERIAL (test code = PJIISC2S) 27.2 MMOL/L 22.0-26.0 H POC BASE EXCESS (test code = POCBEA) 1.2 MMOL/L -4.0-4.0 N POC O2 SATURATION (test code = POCO2S) 96.5 % 90-100 N [id number] 07:07:00* Test Item Value Reference Range Interpretation Comments SODIUM (test code = NA/ABG) 137 MEQ/L 134-147 N [id number] 07:07:00* Test Item Value Reference Range Interpretation Comments POTASSIUM (test code = K/ABG) 4.5 MEQ/L 3.4-5.0 N [id number] 07:07:00* Test Item Value Reference Range Interpretation Comments CHLORIDE (test code = CL/ABG) MEQ/L 100-108 CREATININE [id number] 07:07:00* Test Item Value Reference Range Interpretation Comments CREATININE ABG (test code = CREAABG) mg/dL 0.8-1.3 [id number] 07:07:00* Test Item Value Reference Range Interpretation Comments HEMOGLOBIN (test code = HGB/ABG) G/DL 12.5-16.9 [id number] 07:07:00* Test Item Value Reference Range Interpretation Comments HEMATOCRIT (test code = HCT/ABG) 36 % 37.5-50.7 L POC IONIZED [id number] 07:07:00* Test Item Value Reference Range Interpretation Comments POC IONIZED CALCIUM (test code = POCCA) 1.23 MMOL/L 1.12-1.32 N POC [id number] 07:07:00* Test Item Value Reference Range Interpretation Comments POC GLUCOSE (test code = POCGLU) 170 MG/DL 70-110 H POC ARTERIAL BLOOD [id number] 07:07:00* Test Item Value Reference Range Interpretation Comments POC ARTERIAL BLOOD GAS PH (test code = POCPHA) 7.365 7.35-7. 45 N POC ARTERIAL BLOOD GAS PCO2 (test code = KMQUDR8V) 47.5 mmHg 35. 0-45 H POC TCO2 ARTERIAL (test code = POCTCO2) 28.6 POC ARTERIAL BLOOD GAS PO2 (test code = HZXVS3Z) 90.0 mmHg 80-10 0.0 N POC HCO3 ARTERIAL (test code = QXERFK3T) 27.2 MMOL/L 22.0-26.0 H POC BASE EXCESS (test code = POCBEA) 1.2 MMOL/L -4.0-4.0 N POC O2 SATURATION (test code = POCO2S) 96.5 % 90-100 N [id number] 07:07:00* Test Item Value Reference Range Interpretation Comments SODIUM (test code = NA/ABG) 137 MEQ/L 134-147 N [id number] 07:07:00* Test Item Value Reference Range Interpretation Comments POTASSIUM (test code = K/ABG) 4.5 MEQ/L 3.4-5.0 N [id number] 07:07:00* Test Item Value Reference Range Interpretation Comments CHLORIDE (test code = CL/ABG) MEQ/L 100-108 CREATININE [id number] 07:07:00* Test Item Value Reference Range Interpretation Comments CREATININE ABG (test code = CREAABG) mg/dL 0.8-1.3 [id number] 07:07:00* Test Item Value Reference Range Interpretation Comments HEMOGLOBIN (test code = HGB/ABG) 12.2 G/DL 12.5-16.9 L [id number] 07:07:00* Test Item Value Reference Range Interpretation Comments HEMATOCRIT (test code = HCT/ABG) 36 % 37.5-50.7 L POC IONIZED [id number] 07:07:00* Test Item Value Reference Range Interpretation Comments POC IONIZED CALCIUM (test code = POCCA) 1.23 MMOL/L 1.12-1.32 N POC [id number] 07:07:00* Test Item Value Reference Range Interpretation Comments POC GLUCOSE (test code = POCGLU) 170 MG/DL 70-110 H POC ARTERIAL BLOOD [id number] 07:07:00* Test Item Value Reference Range Interpretation Comments POC ARTERIAL BLOOD GAS PH (test code = POCPHA) 7.365 7.35-7. 45 N POC ARTERIAL BLOOD GAS PCO2 (test code = GQDKTC0J) 47.5 mmHg 35. 0-45 H POC TCO2 ARTERIAL (test code = POCTCO2) 28.6 POC ARTERIAL BLOOD GAS PO2 (test code = HQCIK1B) 90.0 mmHg 80-10 0.0 N POC HCO3 ARTERIAL (test code = UCQPVZ5C) 27.2 MMOL/L 22.0-26.0 H POC BASE EXCESS (test code = POCBEA) 1.2 MMOL/L -4.0-4.0 N POC O2 SATURATION (test code = POCO2S) 96.5 % 90-100 N [id number] 07:07:00* Test Item Value Reference Range Interpretation Comments SODIUM (test code = NA/ABG) 137 MEQ/L 134-147 N [id number] 07:07:00* Test Item Value Reference Range Interpretation Comments POTASSIUM (test code = K/ABG) 4.5 MEQ/L 3.4-5.0 N [id number] 07:07:00* Test Item Value Reference Range Interpretation Comments CHLORIDE (test code = CL/ABG) 103 MEQ/L 100-108 N CREATININE [id number] 07:07:00* Test Item Value Reference Range Interpretation Comments CREATININE ABG (test code = CREAABG) mg/dL 0.8-1.3 [id number] 07:07:00* Test Item Value Reference Range Interpretation Comments HEMOGLOBIN (test code = HGB/ABG) 12.2 G/DL 12.5-16.9 L [id number] 07:07:00* Test Item Value Reference Range Interpretation Comments HEMATOCRIT (test code = HCT/ABG) 36 % 37.5-50.7 L POC IONIZED [id number] 07:07:00* Test Item Value Reference Range Interpretation Comments POC IONIZED CALCIUM (test code = POCCA) 1.23 MMOL/L 1.12-1.32 N POC [id number] 07:07:00* Test Item Value Reference Range Interpretation Comments POC GLUCOSE (test code = POCGLU) 170 MG/DL 70-110 H POC ARTERIAL BLOOD [id number] 07:07:00* Test Item Value Reference Range Interpretation Comments POC ARTERIAL BLOOD GAS PH (test code = POCPHA) 7.365 7.35-7. 45 N POC ARTERIAL BLOOD GAS PCO2 (test code = XKCPOY4W) 47.5 mmHg 35. 0-45 H POC TCO2 ARTERIAL (test code = POCTCO2) 28.6 POC ARTERIAL BLOOD GAS PO2 (test code = SJFNN4V) 90.0 mmHg 80-10 0.0 N POC HCO3 ARTERIAL (test code = MFRHHB9O) 27.2 MMOL/L 22.0-26.0 H POC BASE EXCESS (test code = POCBEA) 1.2 MMOL/L -4.0-4.0 N POC O2 SATURATION (test code = POCO2S) 96.5 % 90-100 N [id number] 07:07:00* Test Item Value Reference Range Interpretation Comments SODIUM (test code = NA/ABG) 137 MEQ/L 134-147 N [id number] 07:07:00* Test Item Value Reference Range Interpretation Comments POTASSIUM (test code = K/ABG) 4.5 MEQ/L 3.4-5.0 N [id number] 07:07:00* Test Item Value Reference Range Interpretation Comments CHLORIDE (test code = CL/ABG) 103 MEQ/L 100-108 N CREATININE [id number] 07:07:00* Test Item Value Reference Range Interpretation Comments CREATININE ABG (test code = CREAABG) 1.2 mg/dL 0.8-1.3 N [id number] 07:07:00* Test Item Value Reference Range Interpretation Comments HEMOGLOBIN (test code = HGB/ABG) 12.2 G/DL 12.5-16.9 L [id number] 07:07:00* Test Item Value Reference Range Interpretation Comments HEMATOCRIT (test code = HCT/ABG) 36 % 37.5-50.7 L POC IONIZED [id number] 07:07:00* Test Item Value Reference Range Interpretation Comments POC IONIZED CALCIUM (test code = POCCA) 1.23 MMOL/L 1.12-1.32 N POC [id number] 07:07:00* Test Item Value Reference Range Interpretation Comments POC GLUCOSE (test code = POCGLU) 170 MG/DL 70-110 H [id number] 05:54:00* Test Item Value Reference Range Interpretation Comments GLUBED (test code = GLUBED) 128 MG/DL 70-110 H Performed by certified shoe sewing machine operator and tender at [facility] THROMBOPLASTIN TIME [id number] 05:39:00* Test Item Value Reference Range Interpretation Comments THROMBOPLASTIN TIME PARTIAL (test code = PTT) 56.3 Seconds 25.0-39. 5 H Therapeutic Range: 61.8-83.8 Sec Effective 08/27/2013 CBC W/AUTO [id number] 05:35:00* Test Item Value Reference Range Interpretation [...] = MDIFF) NO COMMENTS: Daily while on [id number] 21:10:00* Test Item Value Reference Range Interpretation Comments GLUBED (test code = GLUBED) 217 MG/DL 70-110 H Performed by certified shoe sewing machine operator and tender at [facility] [id number] 17:17:00* Test Item Value Reference Range Interpretation Comments GLUBED (test code = GLUBED) 211 MG/DL 70-110 H Performed by certified shoe sewing machine operator and tender at [facility] [id number] 13:52:00* Test Item Value Reference Range Interpretation Comments GLUBED (test code = GLUBED) 193 MG/DL 70-110 H Performed by certified shoe sewing machine operator and tender at [facility] - CT HEAD/BRAIN W/O [id number] 20:36:00 Name: TORI GREGORY [facility] : 1945 Age/S: 68 / M [address] [facility] Unit #: [id number] Loc: NIMESH Mathew [address] Phys: Nayeli Thomson MD Acct: [id number] Dis Date: Status: UNK PHONE #: [phone] Exam Date: 10/01/20142025 FAX #: [phone] Reason: dizziness EXAMS: CPT CODE: [id number] CT HEAD/BRAIN W/O CONT 83419 REASON FOR EXAM: dizziness EXAM ORDER DATE: [...] 73 DLP: 1261 Trnscb Date/Time: 10/01/2014 (2035) t.SDR.VTL Orig Print D/T: S: 10/01/2014 (2038) CTDI: 73 DLP: 1261 PAGE 1 Signed Report - XR CHEST 1 [id number] 20:22:00 FAX: Nayeli Boggs [phone] [place]: St: [facility] Name: TORI SOMERS [facility] : [birth year] Age/S: 68/M [address] Unit #: [id number] Loc: NIMESH [place] [address] Phys: Nayeli Thomson Acct: [id number] Dis Date: Status: UNK PHONE #: [phone] Exam Date: 10/01/2014 2018 FAX #: [phone] Reason: dizziness EXAMS: CPT CODE: [id number] XR CHEST 1 V 78486 REASON FOR EXAM: dizziness EXAM ORDER DATE: [...] CC: Nayeli Thomson MD Technologist: MIRYAM Lawrence Trnyoungrd Da te/Time/By: 10/01/2014 (2021) : By: Bigg.VTL Orig Print D/T: S: 10/01 (2024) PAGE 1 Signed Report - XR RIBS UNI W/CXR 3+V [id number] 19:50:00 FAX: Rex Noland MD [phone] [place]: St: [facility] FAX: Jaam John [facility] [phone] Name: UZIEL HENDERSONLALOAbel [facility] : 1945 Age/S: 65/M [address] [facility] Unit #: [id number] Loc: NIMESH [place] [address] Phys: Masoud Dodson MD Acct: [id number] Dis Date: Status: UNK PHONE #: [phone] Exam Date: 08/27/2011 1253 FAX #: [phone] Reason: left mid-rib pain s/p fall EXAMS: CPT CODE: [id number] XR RIBS UNI W/CXR 3+[place] [address] HISTORY: Left rib pain post fall trauma. [...]
[2020-06-12] VITALS (10 sets, daily range): BP systolic 123–160; BP diastolic 52–96
[2020-06-12] MEDS: SODIUM CHLORIDE 0.9% 1000ML 1,000 ML IV SCH ×3 (00:02→13:10)
[2020-06-12 06:36] LABS: BASOPHILS % 0.3 % (0.0-1.0); EOSINOPHILS # (AUTO) 0.3 (0.0-0.4); EOSINOPHILS % 2.9 % (0.0-6.0); HEMATOCRIT 29.3 % (38.2-49.6); HEMOGLOBIN 9.3 g/dL (14.0-18.0); LYMPHOCYTES # (AUTO) 1.5 (1.0-3.2); MEAN CORPUSCULAR HEMOGLOBIN 28.6 pg (28-32); MEAN CORPUSCULAR HGB CONC 31.7 g/dL (31-35); MEAN CORPUSCULAR VOLUME 90.2 fL (81-99); MONOCYTES # (AUTO) 0.9 (0.2-0.8); MONOCYTES % 8.5 % (4.4-11.3); NEUTROPHILS # (AUTO) 7.9 (2.1-6.9); NEUTROPHILS % 73.8 % (38.7-80.0); PLATELET COUNT 240 x10e3/uL (140-360); RED BLOOD COUNT 3.25 x10e6/uL (4.3-5.7); RED CELL DISTRIBUTION WIDTH 14.8 % (11.7-14.4)
[2020-06-12 06:55] LABS: ALANINE AMINOTRANSFERASE 11 IU/L (0-55); ALBUMIN 2.4 g/dL (3.5-5.0); ALBUMIN/GLOBULIN RATIO 0.8 (0.8-2.0); ALKALINE PHOSPHATASE 63 IU/L (40-150); ANION GAP 13.1 mmol/L (8-16); BLOOD UREA NITROGEN 14 mg/dL (7-26); BUN/CREATININE RATIO 15 (6-25); CARBON DIOXIDE 26 mmol/L (22-29); CHLORIDE 107 mmol/L (98-107); CREATININE, SERUM 0.96 mg/dL (0.72-1.25); EST GLOMERULAR FILTRATION RATE > 60 ML/MIN (60-); GLUCOSE 157 mg/dL (74-118); POTASSIUM 4.1 mmol/L (3.5-5.1); SODIUM 142 mmol/L (136-145)
--- NOTE | 2020-06-12 07:23 | NUR ---
PATIENT IN BED RESTING WITH HEAD OF BED ELEVATED, NO DISTRESS NOTED. [place] CATHETER DRAINING CLEAR YELLOW URINE, 1000CC REMOVED. BED IN LOWER POSITION, CALL LIGHT AT REACH.
[2020-06-12] MEDS: MEROPENEM 1GM 100 ML IV SCH ×2 (07:30→18:21)
[2020-06-12] MEDS ORDERED: ACETAMINOPHEN 325 MG TAB PO PRN (14:45)
--- NOTE | 2020-06-12 14:52 | NUR ---
PATIENT ASSISTED TO THE RESTROOM AND BACK TO RECLINING CHAIR. ALL PERSONAL ITEMS CLOSE TO PATIENT. CALL LIGHT AT REACH.
[2020-06-12] MEDS: METOPROLOL SUCCINATE 25 MG TAB XL PO SCH (17:37)
[2020-06-12] MEDS: PREGABALIN 50 MG CAP PO SCH (17:37)
[2020-06-12] MEDS: ASCORBIC ACID 500 MG TAB PO SCH (17:37)
--- NOTE | 2020-06-12 18:28 | Progress Note ---
DATE: SUBJECTIVE: This patient is a 74-year-old male, who comes in after with altered mental status, confusion, fever, and chills. The patient was admitted. I am asked to see him. The patient is currently lying in bed comfortably. The patient has a history of hypertension, diabetes mellitus, hyperlipidemia, history of CABG, and history of cystoscopy, comes in with the above problems. Blood cultures and urine cultures still pending. White count on admission was 12, hemoglobin 10. Sodium 142, potassium 4.1, creatinine on admission 1.35 and today . The patient is currently on meropenem, Tylenol, and vitamin C. PHYSICAL EXAMINATION: GENERAL: Currently alert. VITAL SIGNS: Stable, currently afebrile. HEENT: No icterus. NECK: Supple. CHEST: Clear bilateral. HEART: S1-S2. ABDOMEN: Soft. Bowel sounds present. EXTREMITIES: No edema. SKIN: No rash. IMPRESSION AND PLAN: Sepsis on admission concern pyelonephritis acute kidney injury, probably component of dehydration, currently on meropenem and we will continue with the same till we get urine cultures with blood cultures. We will modify after we will follow. MD TERRI Courtney/AMINATA /[id number]
[2020-06-12] MEDS: TAMSULOSIN HCL 0.4 MG CAP PO SCH (20:36)
[2020-06-12] MEDS ORDERED: ATORVASTATIN 20 MG TAB PO SCH (21:00)
--- NOTE | 2020-06-12 21:09 | Progress Note ---
DATE: Internal Medicine Progress Note SUBJECTIVE: The patient is a 74-year-old, who has a past medical history positive for coronary artery disease, hypertension, diabetes, came to the hospital complaining of high fever and also hallucinations. The patient is feeling better now. REVIEW OF SYSTEMS: CARDIOVASCULAR: No chest pain or palpitation. RESPIRATORY: No shortness of breath. No cough. GASTROINTESTINAL: No nausea or vomiting. No diarrhea. GENITOURINARY: No frequency or dysuria. ALLERGIES: NOT ALLERGIC TO ANYTHING. SOCIAL HISTORY: He does not smoke and does not drink. PAST MEDICAL HISTORY: Hypertension, diabetes, and coronary artery disease. PHYSICAL EXAMINATION: VITAL SIGNS: Blood pressure 125/83, heart rate 90 per minute, temperature is 98.1, respiratory rate 19 per minute, oxygen saturation 97%. HEART: Showed regular rhythm. Normal S1 and S2 sound. LUNGS: Clear bilaterally. ABDOMEN: Soft. EXTREMITIES: Show no edema. He has a Castorena catheter. LABORATORY DATA: CBC; white blood count is normal at 10.65, hemoglobin 9.3, hematocrit 29.3, which is low, and platelet count 240,000. On the BMP; sodium 142, potassium 4.1, chloride 107, CO2 of 26, BUN 14, creatinine 0.96, glucose is 157, lactic acid 1.5, calcium 8.0, total bilirubin 0.4, AST 11, ALT 11, alkaline phosphatase 63. Creatine kinase 66, CK-MB 1.00, troponin 0.037. Brain natriuretic peptide 92.5. Total protein 5.6, albumin 2.4, globin 3.2, albumin and globulin ratio 0.8. On the chest x-ray, bilateral atelectasis in the lung bases. CT of the head was done, showed no acute intracranial abnormality, mild supratentorial white matter microvascular ischemic changes, mild generalized cerebral volume loss. FINAL IMPRESSION: 1. Fever, rule out sepsis. 2. Possible urinary tract infection. 3. Coronary artery disease. 4. Uncontrolled diabetes mellitus type 2. 5. Hypertension. PLAN OF TREATMENT: We are going to continue meropenem 1 g IV twice a day. Continue normal saline, we are going to cut down to 80 mL an hour. Continue with vitamin C 1000 mg twice a day, aspirin 81 mg daily, Lipitor 40 mg daily, digoxin 0.125 mg daily, finasteride 5 mg daily, lisinopril 2.5 mg daily, metoprolol 25 mg twice a day, Lyrica 100 mg twice a day because he has diabetic neuropathy. Continue Flomax 0.4 mg twice a day because of the BPH. Tylenol 650 mg q.4 hours as needed for pain or fever. We are going to consult Dr. Carrasco for Urology since the patient does have a history of benign prostatic hypertrophy. We are going to consult Dr. Medina for Infectious Diseases, also COVID-19 has been done, the report is pending. There is no clear evidence of infection at this point in time. MD RADHA Murillo/AMINATA /[id number]
[2020-06-13] MEDS: SODIUM CHLORIDE 0.9% 1000ML 1,000 ML IV SCH (00:05)
[2020-06-13 00:41] VITALS: BP 136/82
[2020-06-13 05:45] VITALS: BP 116/55
[2020-06-13] MEDS: MEROPENEM 1GM 100 ML IV SCH (05:46)
--- NOTE | 2020-06-13 07:16 | NUR ---
PATIENT IN BED RESTING WITH EYES CLOSED, NO DISTRESS NOTED. IV FLUID INFUSING ORDERED. BED IN LOWER POSITION, CALL LIGHT AT REACH.
[2020-06-13 07:55] VITALS: BP 139/67
[2020-06-13 08:04] VITALS: BP 139/67
[2020-06-13] MEDS ORDERED: FINASTERIDE 5 MG TAB PO SCH (09:00)
[2020-06-13] MEDS ORDERED: LISINOPRIL 2.5 MG TAB PO SCH (09:00)
[2020-06-13] MEDS ORDERED: ASPIRIN 81 MG CHEW TAB PO SCH (09:00)
[2020-06-13] MEDS ORDERED: DIGOXIN 0.125 MG TAB PO SCH (09:00)
[2020-06-13] MEDS: TAMSULOSIN HCL 0.4 MG CAP PO SCH (09:14)
[2020-06-13] MEDS: PREGABALIN 50 MG CAP PO SCH (09:14)
[2020-06-13] MEDS: METOPROLOL SUCCINATE 25 MG TAB XL PO SCH (09:15)
[2020-06-13] MEDS: ASCORBIC ACID 500 MG TAB PO SCH (09:15)
[2020-06-13 12:25] VITALS: BP 134/59
--- NOTE | 2020-06-13 13:08 | NUR ---
PATIENT HAD A NEGATIVE COVID TEST ON 06/08/20. MD ORDERED TO D/C THE NEW TEST ORDER AND THE ISOLATION ORDER.
--- NOTE | 2020-06-13 13:31 | Progress Note ---
DATE: Internal Medicine Progress Note. SUBJECTIVE: The patient is doing much better now. PHYSICAL EXAMINATION: VITAL SIGNS: Temperature 98.6, heart rate 71 per minute, respiratory rate 18 per minute, blood pressure 134/59, and oxygen saturation 98%. HEART: Showed regular rhythm. Normal S1, S2 sound. LUNGS: Clear bilaterally. ABDOMEN: Soft. LABORATORY DATA: CBC is normal. White blood count 10.65, hemoglobin 9.3, hematocrit 29.3, platelet count 240,000. On the BMP; sodium 142, potassium 4.1, chloride 107, CO2 of 26, BUN 14, creatinine 0.86, glucose 157, lactic acid 1.5, calcium 8.0, total bilirubin 0.4, AST 11, ALT 11, alkaline phosphatase 63, creatine kinase 66, CK-MB 1.00, troponin 0.037. Brain natriuretic peptide 92.5. Total protein 5.6, albumin 2.4, globin 3.2. Apparently, had a COVID-19 test done a few days ago, which was negative. Urine culture and blood culture showed negative. IMPRESSION: 1. Fever of unknown origin. 2. Possible urinary tract infection. 3. Coronary artery disease. 4. Uncontrolled diabetes mellitus type 2 with diabetic neuropathy. 5. Hypertension. 6. Prostatic hypertrophy. PLAN OF TREATMENT: Continue meropenem 1 g IV twice a day. Continue normal saline at 80 mL an hour, Tylenol 650 mg q.4 hours as needed for pain or fever, vitamin C 1000 mg twice a day, aspirin 81 mg daily, Lipitor 40 mg daily, digoxin 0.125 mg daily, finasteride 5 mg daily, lisinopril 2.5 mg daily, metoprolol 25 mg twice a day, Lyrica 100 mg twice a day, and Flomax 0.4 mg twice a day. Dr. Medina seen the patient from the Infectious Disease point of view, suspecting for COVID-19 infection. The patient already had negative test five days ago. He has no fever. Chest x-ray is negative. Infectious Disease, Dr. Medina saw the case anyway. MD RADHA Murillo/AMINATA /[id number]
--- NOTE | 2020-06-13 16:00 | NUR ---
PATIENT DISCHARGED HOME. DISCHARGE INSTRUCTIONS AND FOLLOW UP GIVEN TO PATIENT AND DAUGHTER, THEY VERBALIZED UNDERSTANDING. IV TO BILATERAL AC REMOVED WITH TIP INTACT. ALL PERSONAL ITEMS TAKEN WITH PATIENT. LEFT UNIT PER WHEEL CHAIR TO FRONT LOBBY IN STABLE CONDITION.
[2020-06-13 16:21] VITALS: BP 133/67
== END 2020-06-13 15:45 | disposition home or self-care (01) | DRG 871 ==
LOC: ER 18:36 → ERHOLD 20:38 → MED/SURG3 23:29
PROVIDERS: ADMIT Internal Medicine; ATTEND Internal Medicine
PROC: 0T7D8ZZ Dilation of Urethra, Via Natural or Artificial Opening Endoscopic (ICD-10-PCS; principal; 2020-06-11)
PROC: 0T788ZZ Dilation of Bilateral Ureters, Via Natural or Artificial Opening Endoscopic (ICD-10-PCS; 2020-06-11)
PROC: BT141ZZ Fluoroscopy of Kidneys, Ureters and Bladder using Low Osmolar Contrast (ICD-10-PCS; 2020-06-11)
DX: A41.9 Sepsis, unspecified organism (principal); G93.41 Metabolic encephalopathy; N17.9 Acute kidney failure, unspecified; N12 Tubulo-interstitial nephritis, not specified as acute or chronic; I25.10 Atherosclerotic heart disease of native coronary artery without angina pectoris; N40.0 Benign prostatic hyperplasia without lower urinary tract symptoms; E11.65 Type 2 diabetes mellitus with hyperglycemia; E11.40 Type 2 diabetes mellitus with diabetic neuropathy, unspecified; Z20.828 Contact with and (suspected) exposure to other viral communicable diseases; D64.9 Anemia, unspecified; E86.0 Dehydration; Z95.1 Presence of aortocoronary bypass graft; R65.20 Severe sepsis without septic shock; Z79.4 Long term (current) use of insulin; E66.9 Obesity, unspecified; Z68.30 Body mass index [BMI] 30.0-30.9, adult
CPT/HCPCS: 36415; 70450; 71045; 74420; 80048; 80053; 82550; 82553; 82948; 83605; 83880; 84484; 85025; 87040; 87086; 93005; 99284; C1758; C1769; J2001; J2405; J7030; U0002

== ENCOUNTER → 2020-06-11 | Day surgery (SDC) | payer MEDICARE ==
[2020-06-08 12:00] LABS: BASOPHILS % 0.4 % (0.0-1.0); EOSINOPHILS # (AUTO) 0.8 (0.0-0.4); EOSINOPHILS % 7.4 % (0.0-6.0); HEMATOCRIT 33.7 % (38.2-49.6); HEMOGLOBIN 10.7 g/dL (14.0-18.0); LYMPHOCYTES # (AUTO) 1.8 (1.0-3.2); LYMPHOCYTES % 16.8 % (18.0-39.1); MEAN CORPUSCULAR HEMOGLOBIN 28.6 pg (28-32); MEAN CORPUSCULAR HGB CONC 31.8 g/dL (31-35); MEAN CORPUSCULAR VOLUME 90.1 fL (81-99); MONOCYTES # (AUTO) 0.7 (0.2-0.8); MONOCYTES % 6.4 % (4.4-11.3); NEUTROPHILS # (AUTO) 7.2 (2.1-6.9); NEUTROPHILS % 68.3 % (38.7-80.0); PLATELET COUNT 270 x10e3/uL (140-360); RED BLOOD COUNT 3.74 x10e6/uL (4.3-5.7); RED CELL DISTRIBUTION WIDTH 14.6 % (11.7-14.4)
[2020-06-08 12:17] LABS: ANION GAP 11.8 mmol/L (8-16); BLOOD UREA NITROGEN 22 mg/dL (7-26); BUN/CREATININE RATIO 19 (6-25); CALCIUM 9.2 mg/dL (8.4-10.2); CARBON DIOXIDE 28 mmol/L (22-29); CHLORIDE 105 mmol/L (98-107); CREATININE, SERUM 1.14 mg/dL (0.72-1.25); EST GLOMERULAR FILTRATION RATE > 60 ML/MIN (60-); GLUCOSE 168 mg/dL (74-118); POTASSIUM 4.8 mmol/L (3.5-5.1); SODIUM 140 mmol/L (136-145)
[~2020-06-11] MED LIST changes: +B&O 60MG R/S 60 MG SUPP PR ONE; +BACTRIM DS TAB1 EACH PO; +INDIGOTINDISULFONATE SODIUM 8 MG/ML AMP IJ ONE; +IOPAMIDOL 300MG/ML 50ML INFUS..BTL IV ONE; +MEROPENEM 1GM 100 ML IV ONE
[2020-06-11 11:20] VITALS: BP 145/71
--- NOTE | 2020-06-12 00:11 | Operative Report ---
DATE OF PROCEDURE: 06/11/2020 SURGEON: Bertin Carrasco MD PREOPERATIVE DIAGNOSES: 1. Recurrent severe urethral stricture disease. 2. Complicated urinary tract infections. POSTOPERATIVE DIAGNOSES: 1. Recurrent severe urethral stricture disease. 2. Complicated urinary tract infections. OPERATIONS PERFORMED: 1. Cystourethroscopy with direct vision internal urethrotomy (separately procedure performed for the stricture). 2. Cystourethroscopy with bilateral ureteral catheterization and retrograde ureteropyelography (separate procedure performed for the urinary tract infections). 3. Interpretation of retrograde ureteropyelography, no radiologist present. 4. Supervision of fluoroscopy, no radiologist present. ANESTHESIA: General. COMPLICATIONS: None. CLINICAL SUMMARY: Brian Boyer is a 74-year-old man who underwent transurethral resection of the prostate. Postoperatively, the patient did very well. Later on, the patient developed stone in his urinary stream, was found to have urethral stricture. He underwent direct vision internal urethrotomy. Castorena catheter was left in for a couple of weeks. Following Castorena catheter removal, the patient refused to do intermittent catheterizations on a daily basis in order to prevent stricture recurrence as we were hoping would not happen stricture recurred. The patient also has had a recent complicated urinary tract infection and was treated with culture specific antibiotics. He is brought to the operating room for the above procedures. He is aware of the risks of bleeding, infection, injury to adjacent structures, need for additional procedures and he elected to proceed. OPERATIVE PROCEDURE IN DETAIL: Informed consent was verified. Brian Boyer was properly identified, taken to the operating room, placed on the cystoscopy table in a supine position. Anesthesia was uneventfully begun. The patient was then carefully and gently repositioned in a dorsal lithotomy position with all pressure points were padded. His genitalia were prepared and draped in usual sterile fashion. The cystoscope sheath with the visual obturator in place was atraumatically inserted into the patient's distal urethra. At the midshaft, there was a stricture. We negotiated guidewire through the stricture and fluoroscopically watched it in the region of bladder. The direct vision urethrotome was then utilized. We brought it down to the level of the stricture and the stricture was approximately 3 cm in length. It was incised at the 12 o'clock position resulting in a wide open channel. We then brought the cystoscope through this region and went through a short wide caliber, not clinically significant bulbar urethral stricture. We went through the normal sphincteric region and then through the prostate bed, which was wide open being status post transurethral resection and it was completely reepithelialized. We entered the patient's bladder where panendoscopy revealed trabeculations, but no tumors and no stones and no diverticula. Normally positioned and configured ureteral orifices were identified. An 8-Belgian catheter was used to cannulate each ureter and retrograde ureteral pyelograms were performed. Interpretation of retrograde ureteropyelography contrast was instilled in a retrograde fashion bilaterally. There were no tumors. There were no stones. There were no diverticula. Unobstructed drainage was observed bilaterally fluoroscopically. There was mild upper tract fullness noted bilaterally. The cystoscope was withdrawn over the guidewire that we previously placed. We placed a 24-Belgian Castorena catheter with 30 mL balloon. The catheter was then irrigated to and fro to ensure it worked properly. Cystogram was then performed by injecting contrast into the Castorena catheter. INTERPRETATION OF CYSTOGRAPHY: Castorena catheter balloon was within the bladder lumen. The patient had a wide-open prostatic bed. We cannot saxophone player vesicoureteral reflux. Bladder capacity seems good. Trabeculations were noted. A belladonna and opium suppository were placed revealing enlarged prostate that is smooth, nonfluctuant and without any nodules. The patient was then uneventfully reversed from anesthesia and taken to recovery room in stable condition. There were no complications to the procedure. He tolerated the procedure well. The patient received a dose of Merrem preoperatively and he will be discharged home on Macrobid, which is culture specific based on his last culture. The patient after his last procedure did have a fever and required admission. I instructed the patient's daughter that should he have any fever, immediately bring him back to the emergency room, so that we may address any such symptoms. Bertin Carrasco MD [place]/MODL /[id number]
== END | disposition home or self-care (01) ==
LOC: OR 06:54
PROVIDERS: ATTEND Urology
DX: N35.919 Unspecified urethral stricture, male, unspecified site (principal); N32.89 Other specified disorders of bladder; N40.1 Benign prostatic hyperplasia with lower urinary tract symptoms; R35.1 Nocturia; N39.0 Urinary tract infection, site not specified; N45.3 Epididymo-orchitis; R80.9 Proteinuria, unspecified; N32.81 Overactive bladder; N39.41 Urge incontinence; R81 Glycosuria; E11.22 Type 2 diabetes mellitus with diabetic chronic kidney disease; I12.9 Hypertensive chronic kidney disease with stage 1 through stage 4 chronic kidney disease, or unspecified chronic kidney disease; N18.9 Chronic kidney disease, unspecified; I25.810 Atherosclerosis of coronary artery bypass graft(s) without angina pectoris; M48.02 Spinal stenosis, cervical region; E78.5 Hyperlipidemia, unspecified; K44.9 Diaphragmatic hernia without obstruction or gangrene; K21.9 Gastro-esophageal reflux disease without esophagitis; Z01.810 Encounter for preprocedural cardiovascular examination; Z01.812 Encounter for preprocedural laboratory examination; Z20.828 Contact with and (suspected) exposure to other viral communicable diseases; Z79.82 Long term (current) use of aspirin; Z79.4 Long term (current) use of insulin; Z95.1 Presence of aortocoronary bypass graft; Z95.5 Presence of coronary angioplasty implant and graft; Z98.890 Other specified postprocedural states; Z87.891 Personal history of nicotine dependence
CPT/HCPCS: 36415 ×2; 52005; 52276; 74420; 80048; 82948; 85025; 93005; C1758; C1769; J2185; Q9967; U0002

== ENCOUNTER → 2020-08-12 | Outpatient (CLI) | payer MEDICARE | LOC: US 14:24 | PROVIDERS: ATTEND Urology | DX: N45.3 Epididymo-orchitis (principal) | CPT/HCPCS: 76870; 93976 ==

== ENCOUNTER → 2020-10-14 | Outpatient (CLI) | payer MEDICARE | LOC: US 10:55 | PROVIDERS: ATTEND Urology | DX: N43.3 Hydrocele, unspecified (principal) | CPT/HCPCS: 76870 ==

== ENCOUNTER → 2021-04-18 | Outpatient (CLI) | payer MEDICARE | LOC: RAD 10:57 | PROVIDERS: ATTEND Internal Medicine | DX: I73.9 Peripheral vascular disease, unspecified (principal) | CPT/HCPCS: 93925; 93970 ==

== ENCOUNTER 2021-05-27 10:00 | Outpatient (RCR) | payer MEDICARE | END 2021-05-29 | LOC: PT 10:00 | PROVIDERS: ATTEND Internal Medicine | DX: M54.41 Lumbago with sciatica, right side (principal); M62.81 Muscle weakness (generalized) ==

== ENCOUNTER 2021-06-27 10:00 | Outpatient (RCR) | payer MEDICARE | END 2021-06-28 | LOC: PT 10:00 | PROVIDERS: ATTEND Internal Medicine | DX: M54.41 Lumbago with sciatica, right side (principal); M62.81 Muscle weakness (generalized) ==

== ENCOUNTER 2021-07-27 10:00 | Outpatient (RCR) | payer MEDICARE | END 2021-07-29 | LOC: PT 10:00 | PROVIDERS: ATTEND Internal Medicine | DX: M54.41 Lumbago with sciatica, right side (principal); M51.26 Other intervertebral disc displacement, lumbar region | CPT/HCPCS: 97139 ==

== ENCOUNTER 2022-08-26 09:27 | Inpatient (IN) | payer MEDICARE ==
[2022-08-25 11:56] LABS: BASOPHILS % 0.3 % (0.0-1.0); EOSINOPHILS # (AUTO) 0.3 (0.0-0.4); HEMATOCRIT 38.1 % (38.2-49.6); HEMOGLOBIN 11.6 g/dL (14.0-18.0); LYMPHOCYTES # (AUTO) 1.5 (1.0-3.2); LYMPHOCYTES % 9.8 % (18.0-39.1); MEAN CORPUSCULAR HEMOGLOBIN 29.7 pg (28-32); MEAN CORPUSCULAR HGB CONC 30.4 g/dL (31-35); MEAN CORPUSCULAR VOLUME 97.4 fL (81-99); MONOCYTES # (AUTO) 1.1 (0.2-0.8); MONOCYTES % 7.3 % (4.4-11.3); NEUTROPHILS # (AUTO) 12.2 (2.1-6.9); NEUTROPHILS % 80.2 % (38.7-80.0); PLATELET COUNT 303 x10e3/uL (140-360); RED BLOOD COUNT 3.91 x10e6/uL (4.3-5.7); RED CELL DISTRIBUTION WIDTH 14.1 % (11.7-14.4)
[2022-08-25 12:12] LABS: ANION GAP 16.3 mmol/L (8-16); CALCIUM 9.7 mg/dL (8.4-10.2); CREATININE, SERUM 1.09 mg/dL (0.72-1.25); POTASSIUM 4.3 mmol/L (3.5-5.1)
[~2022-08-26] VITALS: Ht 160 cm; Wt 83.0 kg
[2022-08-26] MEDS ORDERED: MEROPENEM 1 GM VIAL ONE (11:21)
[2022-08-26] MEDS ORDERED: BUPIVACAINE 0.5%/EPI 30 ML SDV INJ ONE (11:49)
[2022-08-26] MEDS ORDERED: LIDOCAINE 2%/ EPINEPHRINE 20ML MDV ONE (12:00)
[2022-08-26] MEDS ORDERED: BUPIVACAINE HCL 0.5% INJ 30 ML VIAL INJ ONE (12:01)
[2022-08-26] MEDS ORDERED: ONDANSETRON HCL INJ 2MG/ML 2ML 2 MG/ML VIAL IV PRN (12:45)
[2022-08-26] MEDS ORDERED: DIPHENHYDRAMINE HCL 25 MG CAP PO PRN (12:45)
[2022-08-26] MEDS ORDERED: ACETAMINOPHEN 1000 MG/100 ML IV PRN (12:45)
[2022-08-26] MEDS ORDERED: PHENAZOPYRIDINE HCL 100 MG TAB PO PRN (12:45)
[2022-08-26] MEDS ORDERED: Morphine 2mg Syringe 2 MG/ML SYR IV PRN (12:45)
[2022-08-26] MEDS ORDERED: SEVOFLURANE INHAL SOLN 250 ML PEN BTL ONE (13:08)
[2022-08-26] MEDS ORDERED: POVIDONE IODINE 0.05% 0.05 % ML PO ONE (13:08)
[2022-08-26] MEDS ORDERED: ROCURONIUM BROMIDE 10 MG/ML 5ML VIAL IV ONE (13:08)
[2022-08-26] MEDS ORDERED: LIDOCAINE HCL 2% LOCAL INJ 5 ML SDV VIAL INJ ONE (13:08)
[2022-08-26] MEDS ORDERED: SUCCINYLCHOLINE CHLORIDE 20 MG/ML 10ML VIAL ONE (13:08)
[2022-08-26] MEDS ORDERED: EPHEDRINE SULFATE INJ 50 MG/ML VIAL ONE (13:08)
[2022-08-26] MEDS ORDERED: PROPOFOL IV EMULSION 10 MG/ML 20 ML VIAL ONE (13:08)
[2022-08-26] MEDS ORDERED: FENTANYL CITRATE/PF 100MCG/2 ML INJ ONE (13:29)
[2022-08-26] MEDS ORDERED: Morphine 10mg syringe 10 MG/ML INJ ONE (13:29)
[2022-08-26 14:44] VITALS: BP 111/57
[2022-08-26 15:01] VITALS: BP 120/64
[2022-08-26] MEDS ORDERED: DEXTROSE 50% SYRINGE 50 ML IV PRN (15:30)
[2022-08-26] MEDS: INSULIN LISPRO 100 UNIT/1 ML 3ML VIAL SQ SCH ×4 (16:30→21:26)
[2022-08-26] MEDS: TAMSULOSIN HCL 0.4 MG CAP PO SCH (16:49)
[2022-08-26] MEDS: DOCUSATE SODIUM 100 MG CAP PO SCH (16:50)
[2022-08-26] MEDS: PREGABALIN 50 MG CAP PO SCH (16:50)
[2022-08-26] MEDS: METOPROLOL SUCCINATE 25 MG TAB XL PO SCH (16:50)
[2022-08-26] MEDS: ASCORBIC ACID 500 MG TAB PO SCH (16:51)
[2022-08-26] MEDS: SODIUM CHLORIDE 0.9% 1000ML 1,000 ML IV SCH (16:53)
[2022-08-26 20:00] VITALS: BP 111/55
[2022-08-26] MEDS: INSULIN GLARGINE 100 UNITS/ML VIAL SQ SCH (21:00)
[2022-08-26] MEDS: ATORVASTATIN 40 MG TAB PO SCH (21:17)
[2022-08-27] VITALS (8 sets, daily range): BP systolic 99–145; BP diastolic 50–82
[2022-08-27] MEDS: SODIUM CHLORIDE 0.9% 1000ML 1,000 ML IV SCH ×2 (02:41→15:54)
[2022-08-27] MEDS: ACETAMINOPHEN/CODEINE 300MG - 30MG TAB PO PRN ×3 (05:09→22:19)
[2022-08-27 06:28] LABS: BASOPHILS % 0.5 % (0.0-1.0); EOSINOPHILS # (AUTO) 0.9 (0.0-0.4); EOSINOPHILS % 10.2 % (0.0-6.0); HEMATOCRIT 29.7 % (38.2-49.6); HEMOGLOBIN 9.7 g/dL (14.0-18.0); LYMPHOCYTES # (AUTO) 1.4 (1.0-3.2); LYMPHOCYTES % 16.2 % (18.0-39.1); MEAN CORPUSCULAR HEMOGLOBIN 29.8 pg (28-32); MEAN CORPUSCULAR HGB CONC 32.7 g/dL (31-35); MEAN CORPUSCULAR VOLUME 91.1 fL (81-99); MONOCYTES # (AUTO) 0.7 (0.2-0.8); MONOCYTES % 8.6 % (4.4-11.3); NEUTROPHILS # (AUTO) 5.5 (2.1-6.9); NEUTROPHILS % 64.1 % (38.7-80.0); PLATELET COUNT 216 x10e3/uL (140-360); RED BLOOD COUNT 3.26 x10e6/uL (4.3-5.7); RED CELL DISTRIBUTION WIDTH 14.3 % (11.7-14.4)
[2022-08-27 06:46] LABS: ANION GAP 12.9 mmol/L (8-16); CALCIUM 8.2 mg/dL (8.4-10.2); CREATININE, SERUM 0.95 mg/dL (0.72-1.25); POTASSIUM 3.9 mmol/L (3.5-5.1)
[2022-08-27] MEDS: DOCUSATE SODIUM 100 MG CAP PO SCH ×2 (08:31→15:54)
[2022-08-27] MEDS: FINASTERIDE 5 MG TAB PO SCH (08:31)
[2022-08-27] MEDS: ASCORBIC ACID 500 MG TAB PO SCH ×2 (08:31→15:54)
[2022-08-27] MEDS: ASPIRIN 81 MG CHEW TAB PO SCH (08:32)
[2022-08-27] MEDS: TAMSULOSIN HCL 0.4 MG CAP PO SCH ×2 (08:32→15:54)
[2022-08-27] MEDS: PREGABALIN 50 MG CAP PO SCH ×2 (08:32→15:54)
[2022-08-27] MEDS: CHOLECALCIFEROL 1,000 UNIT TAB PO SCH (08:32)
[2022-08-27] MEDS: INSULIN LISPRO 100 UNIT/1 ML 3ML VIAL SQ SCH ×8 (08:33→22:00)
[2022-08-27] MEDS: VIT K PO SCH (08:36)
[2022-08-27] MEDS: MULTIVIT MIN PO SCH (08:36)
[2022-08-27] MEDS: LYCOP PO SCH (08:36)
[2022-08-27] MEDS: FOLIC PO SCH (08:36)
[2022-08-27] MEDS: METOPROLOL SUCCINATE 25 MG TAB XL PO SCH ×2 (09:00→15:54)
[2022-08-27] MEDS ORDERED: MAGNESIUM OXIDE 400 MG TAB PO ONE (10:00)
[2022-08-27] MEDS: ATORVASTATIN 40 MG TAB PO SCH (21:58)
[2022-08-27] MEDS: INSULIN GLARGINE 100 UNITS/ML VIAL SQ SCH (22:25)
[2022-08-28] VITALS (8 sets, daily range): BP systolic 125–157; BP diastolic 62–75
[2022-08-28 05:48] LABS: BASOPHILS # (AUTO) 0.1 (0.0-0.1); BASOPHILS % 0.8 % (0.0-1.0); EOSINOPHILS # (AUTO) 1.2 (0.0-0.4); HEMATOCRIT 30.3 % (38.2-49.6); HEMOGLOBIN 9.8 g/dL (14.0-18.0); LYMPHOCYTES # (AUTO) 1.7 (1.0-3.2); LYMPHOCYTES % 22.7 % (18.0-39.1); MEAN CORPUSCULAR HEMOGLOBIN 29.7 pg (28-32); MEAN CORPUSCULAR HGB CONC 32.3 g/dL (31-35); MEAN CORPUSCULAR VOLUME 91.8 fL (81-99); MONOCYTES # (AUTO) 0.7 (0.2-0.8); MONOCYTES % 10.1 % (4.4-11.3); NEUTROPHILS # (AUTO) 3.7 (2.1-6.9); NEUTROPHILS % 49.9 % (38.7-80.0); PLATELET COUNT 236 x10e3/uL (140-360); RED CELL DISTRIBUTION WIDTH 14.2 % (11.7-14.4)
[2022-08-28] MEDS: ACETAMINOPHEN/CODEINE 300MG - 30MG TAB PO PRN (06:03)
[2022-08-28] MEDS: SODIUM CHLORIDE 0.9% 1000ML 1,000 ML IV SCH ×2 (06:03→18:02)
[2022-08-28 06:12] LABS: ALBUMIN 2.2 g/dL (3.5-5.0); ALBUMIN/GLOBULIN RATIO 0.6 (0.8-2.0); ANION GAP 12.1 mmol/L (8-16); CALCIUM 8.6 mg/dL (8.4-10.2); CREATININE, SERUM 0.85 mg/dL (0.72-1.25); MAGNESIUM 1.9 MG/DL (1.3-2.1); POTASSIUM 4.1 mmol/L (3.5-5.1)
[2022-08-28] MEDS: VIT K PO SCH (09:00)
[2022-08-28] MEDS: LYCOP PO SCH (09:00)
[2022-08-28] MEDS: FOLIC PO SCH (09:00)
[2022-08-28] MEDS: MULTIVIT MIN PO SCH (09:00)
[2022-08-28] MEDS: INSULIN LISPRO 100 UNIT/1 ML 3ML VIAL SQ SCH ×8 (09:10→21:00)
[2022-08-28] MEDS: DOCUSATE SODIUM 100 MG CAP PO SCH ×2 (09:12→16:21)
[2022-08-28] MEDS: ASPIRIN 81 MG CHEW TAB PO SCH (09:12)
[2022-08-28] MEDS: TAMSULOSIN HCL 0.4 MG CAP PO SCH ×2 (09:12→16:22)
[2022-08-28] MEDS: PREGABALIN 50 MG CAP PO SCH ×2 (09:14→16:22)
[2022-08-28] MEDS: FINASTERIDE 5 MG TAB PO SCH (09:15)
[2022-08-28] MEDS: METOPROLOL SUCCINATE 25 MG TAB XL PO SCH ×2 (09:15→16:22)
[2022-08-28] MEDS: ASCORBIC ACID 500 MG TAB PO SCH ×2 (09:16→16:22)
[2022-08-28] MEDS: CHOLECALCIFEROL 1,000 UNIT TAB PO SCH (09:16)
[2022-08-28] MEDS ORDERED: ONDANSETRON HCL 4 MG ORAL DISINTEGRATING TAB PO PRN (11:45)
[2022-08-28] MEDS: FLUCONAZOLE 100 MG TAB PO SCH (16:25)
[2022-08-28 18:47] LABS: CALCIUM 8.7 mg/dL (8.4-10.2); CREATININE, SERUM 0.82 mg/dL (0.72-1.25)
[2022-08-28] MEDS ORDERED: INSULIN GLARGINE 100 UNITS/ML VIAL SQ SCH (21:00)
[2022-08-28] MEDS: INSULIN GLARGINE 100 UNITS/ML VIAL SQ SCH (21:00)
[2022-08-28] MEDS: ATORVASTATIN 40 MG TAB PO SCH (22:41)
[2022-08-29] VITALS (7 sets, daily range): BP systolic 121–148; BP diastolic 50–82
[2022-08-29 06:22] LABS: BASOPHILS % 0.4 % (0.0-1.0); EOSINOPHILS # (AUTO) 0.9 (0.0-0.4); EOSINOPHILS % 11.5 % (0.0-6.0); HEMATOCRIT 31.7 % (38.2-49.6); HEMOGLOBIN 10.4 g/dL (14.0-18.0); LYMPHOCYTES % 24.1 % (18.0-39.1); MEAN CORPUSCULAR HEMOGLOBIN 29.9 pg (28-32); MEAN CORPUSCULAR HGB CONC 32.8 g/dL (31-35); MEAN CORPUSCULAR VOLUME 91.1 fL (81-99); MONOCYTES # (AUTO) 0.7 (0.2-0.8); MONOCYTES % 9.2 % (4.4-11.3); NEUTROPHILS # (AUTO) 4.4 (2.1-6.9); NEUTROPHILS % 54.2 % (38.7-80.0); PLATELET COUNT 239 x10e3/uL (140-360); RED BLOOD COUNT 3.48 x10e6/uL (4.3-5.7); RED CELL DISTRIBUTION WIDTH 14.2 % (11.7-14.4)
[2022-08-29 06:52] LABS: ANION GAP 13.1 mmol/L (8-16); CALCIUM 8.7 mg/dL (8.4-10.2); CREATININE, SERUM 0.86 mg/dL (0.72-1.25); POTASSIUM 4.1 mmol/L (3.5-5.1)
[2022-08-29] MEDS: INSULIN LISPRO 100 UNIT/1 ML 3ML VIAL SQ SCH ×8 (08:11→21:05)
[2022-08-29] MEDS: ASPIRIN 81 MG CHEW TAB PO SCH (08:13)
[2022-08-29] MEDS: FLUCONAZOLE 100 MG TAB PO SCH (08:13)
[2022-08-29] MEDS: DOCUSATE SODIUM 100 MG CAP PO SCH ×2 (08:13→16:40)
[2022-08-29] MEDS: FINASTERIDE 5 MG TAB PO SCH (08:14)
[2022-08-29] MEDS: ASCORBIC ACID 500 MG TAB PO SCH ×2 (08:14→16:41)
[2022-08-29] MEDS: PREGABALIN 50 MG CAP PO SCH ×2 (08:14→16:41)
[2022-08-29] MEDS: METOPROLOL SUCCINATE 25 MG TAB XL PO SCH ×2 (08:14→16:41)
[2022-08-29] MEDS: TAMSULOSIN HCL 0.4 MG CAP PO SCH ×2 (08:14→16:41)
[2022-08-29] MEDS: CHOLECALCIFEROL 1,000 UNIT TAB PO SCH (08:14)
[2022-08-29] MEDS: SODIUM CHLORIDE 0.9% 1000ML 1,000 ML IV SCH (08:17)
[2022-08-29] MEDS: MULTIVIT MIN PO SCH (08:21)
[2022-08-29] MEDS: VIT K PO SCH (08:21)
[2022-08-29] MEDS: FOLIC PO SCH (08:21)
[2022-08-29] MEDS: LYCOP PO SCH (08:21)
[2022-08-29] MEDS: ATORVASTATIN 40 MG TAB PO SCH (20:58)
[2022-08-29] MEDS: INSULIN GLARGINE 100 UNITS/ML VIAL SQ SCH (21:00)
[2022-08-30] VITALS (8 sets, daily range): BP systolic 101–146; BP diastolic 45–74
[2022-08-30] MEDS: SODIUM CHLORIDE 0.9% 1000ML 1,000 ML IV SCH ×3 (05:19→23:25)
[2022-08-30 05:51] LABS: BASOPHILS # (AUTO) 0.1 (0.0-0.1); BASOPHILS % 0.6 % (0.0-1.0); EOSINOPHILS % 11.4 % (0.0-6.0); HEMATOCRIT 31.9 % (38.2-49.6); HEMOGLOBIN 10.4 g/dL (14.0-18.0); LYMPHOCYTES # (AUTO) 2.2 (1.0-3.2); LYMPHOCYTES % 25.8 % (18.0-39.1); MEAN CORPUSCULAR HEMOGLOBIN 29.8 pg (28-32); MEAN CORPUSCULAR HGB CONC 32.6 g/dL (31-35); MEAN CORPUSCULAR VOLUME 91.4 fL (81-99); MONOCYTES # (AUTO) 0.9 (0.2-0.8); MONOCYTES % 9.8 % (4.4-11.3); NEUTROPHILS # (AUTO) 4.5 (2.1-6.9); NEUTROPHILS % 51.9 % (38.7-80.0); PLATELET COUNT 263 x10e3/uL (140-360); RED BLOOD COUNT 3.49 x10e6/uL (4.3-5.7); RED CELL DISTRIBUTION WIDTH 14.2 % (11.7-14.4)
[2022-08-30 06:13] LABS: ANION GAP 13.5 mmol/L (8-16); CALCIUM 9.3 mg/dL (8.4-10.2); CREATININE, SERUM 0.98 mg/dL (0.72-1.25); POTASSIUM 4.5 mmol/L (3.5-5.1)
[2022-08-30] MEDS: INSULIN LISPRO 100 UNIT/1 ML 3ML VIAL SQ SCH ×8 (07:30→20:42)
[2022-08-30] MEDS: ACETAMINOPHEN/CODEINE 300MG - 30MG TAB PO PRN (08:50)
[2022-08-30] MEDS: CHOLECALCIFEROL 1,000 UNIT TAB PO SCH (08:51)
[2022-08-30] MEDS: ASCORBIC ACID 500 MG TAB PO SCH ×2 (08:51→16:44)
[2022-08-30] MEDS: ASPIRIN 81 MG CHEW TAB PO SCH (08:51)
[2022-08-30] MEDS: DOCUSATE SODIUM 100 MG CAP PO SCH ×2 (08:51→16:44)
[2022-08-30] MEDS: FINASTERIDE 5 MG TAB PO SCH (08:51)
[2022-08-30] MEDS: TAMSULOSIN HCL 0.4 MG CAP PO SCH ×2 (08:51→16:44)
[2022-08-30] MEDS: PREGABALIN 50 MG CAP PO SCH ×2 (08:52→16:43)
[2022-08-30] MEDS: FLUCONAZOLE 100 MG TAB PO SCH (08:52)
[2022-08-30] MEDS: METOPROLOL SUCCINATE 25 MG TAB XL PO SCH ×2 (08:52→16:44)
[2022-08-30] MEDS: VIT K PO SCH (08:56)
[2022-08-30] MEDS: LYCOP PO SCH (08:56)
[2022-08-30] MEDS: FOLIC PO SCH (08:56)
[2022-08-30] MEDS: MULTIVIT MIN PO SCH (08:56)
[2022-08-30] MEDS: INSULIN GLARGINE 100 UNITS/ML VIAL SQ SCH (20:42)
[2022-08-30] MEDS: ATORVASTATIN 40 MG TAB PO SCH (20:54)
[2022-08-31] VITALS (8 sets, daily range): BP systolic 104–132; BP diastolic 52–73
[2022-08-31] MEDS: SODIUM CHLORIDE 0.9% 1000ML 1,000 ML IV SCH (05:22)
[2022-08-31] MEDS ORDERED: PYRIDIUM100 MG PO (08:46)
[2022-08-31] MEDS ORDERED: DIFLUCAN100 MG PO (08:46)
[2022-08-31] MEDS: LYCOP PO SCH (09:00)
[2022-08-31] MEDS: VIT K PO SCH (09:00)
[2022-08-31] MEDS: MULTIVIT MIN PO SCH (09:00)
[2022-08-31] MEDS: FOLIC PO SCH (09:00)
[2022-08-31] MEDS: ASPIRIN 81 MG CHEW TAB PO SCH (09:10)
[2022-08-31] MEDS: FLUCONAZOLE 100 MG TAB PO SCH (09:10)
[2022-08-31] MEDS: ASCORBIC ACID 500 MG TAB PO SCH ×2 (09:10→17:10)
[2022-08-31] MEDS: FINASTERIDE 5 MG TAB PO SCH (09:11)
[2022-08-31] MEDS: CHOLECALCIFEROL 1,000 UNIT TAB PO SCH (09:11)
[2022-08-31] MEDS: DOCUSATE SODIUM 100 MG CAP PO SCH ×2 (09:11→17:10)
[2022-08-31] MEDS: PREGABALIN 50 MG CAP PO SCH ×2 (09:11→17:10)
[2022-08-31] MEDS: TAMSULOSIN HCL 0.4 MG CAP PO SCH ×2 (09:11→17:10)
[2022-08-31] MEDS: METOPROLOL SUCCINATE 25 MG TAB XL PO SCH ×2 (09:23→17:11)
[2022-08-31] MEDS: INSULIN LISPRO 100 UNIT/1 ML 3ML VIAL SQ SCH ×8 (09:24→21:49)
[2022-08-31] MEDS: ATORVASTATIN 40 MG TAB PO SCH (21:45)
[2022-08-31] MEDS: INSULIN GLARGINE 100 UNITS/ML VIAL SQ SCH (21:57)
[2022-08-31] MEDS: ACETAMINOPHEN/CODEINE 300MG - 30MG TAB PO PRN (23:00)
[2022-09-01 00:33] VITALS: BP 130/58
[2022-09-01 05:15] VITALS: BP 115/48
[2022-09-01] MEDS: SODIUM CHLORIDE 0.9% 1000ML 1,000 ML IV SCH (05:18)
[2022-09-01] MEDS: INSULIN LISPRO 100 UNIT/1 ML 3ML VIAL SQ SCH ×4 (07:30→12:33)
[2022-09-01] MEDS: FOLIC PO SCH (09:00)
[2022-09-01] MEDS: VIT K PO SCH (09:00)
[2022-09-01] MEDS: LYCOP PO SCH (09:00)
[2022-09-01] MEDS: MULTIVIT MIN PO SCH (09:00)
[2022-09-01 09:01] VITALS: BP 141/67
[2022-09-01 09:12] VITALS: BP 141/67
[2022-09-01] MEDS: DOCUSATE SODIUM 100 MG CAP PO SCH (09:14)
[2022-09-01] MEDS: PREGABALIN 50 MG CAP PO SCH (09:14)
[2022-09-01] MEDS: CHOLECALCIFEROL 1,000 UNIT TAB PO SCH (09:14)
[2022-09-01] MEDS: ASPIRIN 81 MG CHEW TAB PO SCH (09:14)
[2022-09-01] MEDS: ASCORBIC ACID 500 MG TAB PO SCH (09:14)
[2022-09-01] MEDS: FLUCONAZOLE 100 MG TAB PO SCH (09:14)
[2022-09-01] MEDS: TAMSULOSIN HCL 0.4 MG CAP PO SCH (09:15)
[2022-09-01] MEDS: FINASTERIDE 5 MG TAB PO SCH (09:15)
[2022-09-01] MEDS: METOPROLOL SUCCINATE 25 MG TAB XL PO SCH (09:16)
[2022-09-01 12:24] VITALS: BP 141/60
== END 2022-09-01 13:53 | disposition home health service (06) | DRG 711 ==
LOC: OR 09:27 → MED/SURG3 13:32
PROVIDERS: ADMIT Internal Medicine; ATTEND Internal Medicine
PROC: 0T7D8ZZ Dilation of Urethra, Via Natural or Artificial Opening Endoscopic (ICD-10-PCS; 2022-08-26)
PROC: 3E0T3BZ Introduction of Anesthetic Agent into Peripheral Nerves and Plexi, Percutaneous Approach (ICD-10-PCS; 2022-08-26)
PROC: 0VT90ZZ Resection of Right Testis, Open Approach (ICD-10-PCS; principal; 2022-08-26 11:30)
PROC: 02HV33Z Insertion of Infusion Device into Superior Vena Cava, Percutaneous Approach (ICD-10-PCS; 2022-08-29)
DX: N45.3 Epididymo-orchitis (principal); B37.49 Other urogenital candidiasis; B96.20 Unspecified Escherichia coli [E. coli] as the cause of diseases classified elsewhere; N45.4 Abscess of epididymis or testis; N40.0 Benign prostatic hyperplasia without lower urinary tract symptoms; E78.5 Hyperlipidemia, unspecified; N35.919 Unspecified urethral stricture, male, unspecified site; E11.40 Type 2 diabetes mellitus with diabetic neuropathy, unspecified; I25.10 Atherosclerotic heart disease of native coronary artery without angina pectoris; E11.65 Type 2 diabetes mellitus with hyperglycemia; E83.42 Hypomagnesemia; I95.9 Hypotension, unspecified; D63.8 Anemia in other chronic diseases classified elsewhere; I10 Essential (primary) hypertension; E66.9 Obesity, unspecified; Z95.1 Presence of aortocoronary bypass graft; Z79.4 Long term (current) use of insulin; Z68.32 Body mass index [BMI] 32.0-32.9, adult; Z98.890 Other specified postprocedural states
CPT/HCPCS: 36415; 36569; 71045; 71046; 80048; 80053; 82948; 83735; 85025; 87071; 87075; 87086; 87186; 87205; 88304; 88307; 93005; 94799; 96360; 96361; 99252; J0330; J2001; J2185; J2270; J3010; J7030

== ENCOUNTER 2023-01-30 10:39 | Inpatient (IN) | payer MEDICARE ==
[~2023-01-30] VITALS: Ht 160 cm; Wt 83.9 kg
[~2023-01-30 10:39] MED LIST changes: +DIFLUCAN100 MG PO; +PYRIDIUM100 MG PO
[2023-01-30] MEDS ORDERED: ACETAMINOPHEN 325 MG TAB PO ONE (11:15)
[2023-01-30] MEDS ORDERED: SODIUM CHLORIDE 0.9% 1000ML 1,000 ML IV STA (11:43)
[2023-01-30] MEDS ORDERED: IBUPROFEN 200 MG TAB PO ONE (11:45)
[2023-01-30] MEDS ORDERED: PIPERACILLIN/TAZOBACTAM 3.375 GM VIAL ONE (11:48)
[2023-01-30] MEDS ORDERED: ACETAMINOPHEN 325 MG TAB ONE (11:48)
[2023-01-30] MEDS ORDERED: SODIUM CHLORIDE FLUSH 10 ML SYR INJ PRN (12:15)
[2023-01-30] MEDS ORDERED: CLONIDINE HCL 0.1 MG TAB PO PRN (12:15)
[2023-01-30] MEDS ORDERED: DIPHENHYDRAMINE HCL INJ 50 MG/ML VIAL IV PRN (12:15)
[2023-01-30] MEDS ORDERED: DEXTROSE 50% SYRINGE 50 ML IV PRN ×2 (12:15→22:15)
[2023-01-30] MEDS ORDERED: Vancomycin IV 1 GM VIAL ONE (12:51)
[2023-01-30] MEDS ORDERED: SODIUM CHLORIDE 0.9% 250ML 250 ML ONE (12:51)
[2023-01-30] MEDS: Vancomycin IV 1 GM in SODIUM CHLORIDE 0.9% 250ML 250 ML IV SCH (12:58)
[2023-01-30] MEDS ORDERED: INSULIN REGULAR, HUMAN 100 UNIT/1 ML IV ONE (13:00)
[2023-01-30] MEDS ORDERED: SODIUM CHLORIDE 0.9% 1000ML 1,000 ML ONE (13:27)
[2023-01-30] MEDS ORDERED: SODIUM CHLORIDE 0.9% 1000ML 1,000 ML IV ONE (14:00)
[2023-01-30 14:30] VITALS: BP 105/57; PULSE 85; RESP 18; TEMP 98.7; O2SAT 99
[2023-01-30 15:32] VITALS: BP 102/56; TEMP 98.9; O2SAT 96
[2023-01-30] MEDS ORDERED: TRULICITY0.75 MG/0. (16:51)
[2023-01-30 16:52] VITALS: BP 105/57; PULSE 85; RESP 20; TEMP 98.7; O2SAT 99
[2023-01-30] MEDS ORDERED: LEVEMIR100 UNIT/1 (16:56)
[2023-01-30] MEDS ORDERED: HUMALOG MI100 UNIT/2 SQ (16:56)
[2023-01-30] MEDS ORDERED: LEVEMIR100 UNIT/1 SQ (16:56)
[2023-01-30] MEDS: FAMOTIDINE 20 MG TAB PO SCH (17:42)
[2023-01-30] MEDS: ENOXAPARIN SOD INJ 40 MG/0.4 ML SYR SC SCH (17:42)
[2023-01-30] MEDS: INSULIN REGULAR, HUMAN 100 UNIT/1 ML SQ SCH ×2 (17:44→22:18)
[2023-01-30] MEDS ORDERED: TETANUS/DIPHTHERIA TOX ADULT 0.5 ML SYR IM STA (18:04)
[2023-01-30 20:00] VITALS: BP 117/51; PULSE 80; RESP 18; TEMP 98.1; O2SAT 100
[2023-01-30] MEDS ORDERED: ZOLPIDEM TARTRATE 5 MG TAB PO PRN (21:00)
[2023-01-30] MEDS: IBUPROFEN 200 MG TAB PO PRN (23:31)
[2023-01-31] VITALS (8 sets, daily range): BP systolic 90–130; BP diastolic 48–62; PULSE 72–85; RESP 18–21; TEMP 97.9–98.9; O2SAT 96–99
[2023-01-31] MEDS: Vancomycin IV 1 GM in SODIUM CHLORIDE 0.9% 250ML 250 ML IV SCH ×2 (04:01→13:45)
[2023-01-31 05:24] LABS: ALBUMIN 2.3 g/dL (3.5-5.0); ALBUMIN/GLOBULIN RATIO 0.7 (0.8-2.0); ANION GAP 11.2 mmol/L (8-16); CALCIUM 8.6 mg/dL (8.4-10.2); CREATININE, SERUM 0.88 mg/dL (0.72-1.25); MAGNESIUM 1.6 MG/DL (1.3-2.1); POTASSIUM 3.2 mmol/L (3.5-5.1)
[2023-01-31 05:49] LABS: BASOPHILS # (AUTO) 0.1 (0.0-0.1); BASOPHILS % 0.4 % (0.0-1.0); EOSINOPHILS # (AUTO) 0.2 (0.0-0.4); HEMATOCRIT 29.2 % (38.2-49.6); HEMOGLOBIN 9.8 g/dL (14.0-18.0); LYMPHOCYTES # (AUTO) 1.9 (1.0-3.2); MEAN CORPUSCULAR HEMOGLOBIN 30.3 pg (28-32); MEAN CORPUSCULAR HGB CONC 33.6 g/dL (31-35); MEAN CORPUSCULAR VOLUME 90.4 fL (81-99); MONOCYTES # (AUTO) 1.3 (0.2-0.8); NEUTROPHILS # (AUTO) 12.5 (2.1-6.9); NEUTROPHILS % 77.9 % (38.7-80.0); PLATELET COUNT 231 x10e3/uL (140-360); RED BLOOD COUNT 3.23 x10e6/uL (4.3-5.7); RED CELL DISTRIBUTION WIDTH 13.9 % (11.7-14.4)
[2023-01-31 06:17] LABS: FERRITIN 144.32 ng/mL (21.81-274.66)
[2023-01-31] MEDS: INSULIN REGULAR, HUMAN 100 UNIT/1 ML SQ SCH (07:30)
[2023-01-31] MEDS: TAMSULOSIN HCL 0.4 MG CAP PO SCH ×2 (08:33→17:00)
[2023-01-31] MEDS: METOPROLOL SUCCINATE 25 MG TAB XL PO SCH ×2 (08:33→17:01)
[2023-01-31] MEDS: FAMOTIDINE 20 MG TAB PO SCH ×2 (08:33→17:01)
[2023-01-31] MEDS: SENNOSIDES 8.6 MG TAB PO SCH (08:34)
[2023-01-31] MEDS: FINASTERIDE 5 MG TAB PO SCH (08:34)
[2023-01-31] MEDS: PREGABALIN 50 MG CAP PO SCH ×2 (08:34→17:01)
[2023-01-31] MEDS: DOCUSATE SODIUM 100 MG CAP PO SCH (08:34)
[2023-01-31] MEDS: IBUPROFEN 200 MG TAB PO PRN (08:36)
[2023-01-31] MEDS: INSULIN GLARGINE 100 UNITS/ML VIAL SQ SCH ×2 (08:44→21:49)
[2023-01-31] MEDS: INSULIN LISPRO 100 UNIT/1 ML 3ML VIAL SQ SCH ×4 (08:44→21:50)
[2023-01-31] MEDS ORDERED: POTASSIUM CHLORIDE 20 MEQ TAB CR PO STA (10:56)
[2023-01-31] MEDS: ENOXAPARIN SOD INJ 40 MG/0.4 ML SYR SC SCH (17:01)
[2023-01-31] MEDS ORDERED: ATORVASTATIN 20 MG TAB PO SCH (21:00)
[2023-01-31] MEDS: HYDROCODONE/APAP 5MG-325MG TAB PO PRN (21:42)
[2023-02-01] VITALS (10 sets, daily range): BP systolic 93–136; BP diastolic 43–69; PULSE 69–106; RESP 16–20; TEMP 97.4–99.5; O2SAT 95–100
[2023-02-01] MEDS: Vancomycin IV 1 GM in SODIUM CHLORIDE 0.9% 250ML 250 ML IV SCH (01:12)
[2023-02-01 06:16] LABS: BASOPHILS # (AUTO) 0.1 (0.0-0.1); BASOPHILS % 0.4 % (0.0-1.0); EOSINOPHILS # (AUTO) 0.4 (0.0-0.4); EOSINOPHILS % 2.1 % (0.0-6.0); HEMATOCRIT 35.8 % (38.2-49.6); HEMOGLOBIN 11.6 g/dL (14.0-18.0); LYMPHOCYTES # (AUTO) 3.2 (1.0-3.2); MEAN CORPUSCULAR HEMOGLOBIN 30.2 pg (28-32); MEAN CORPUSCULAR HGB CONC 32.4 g/dL (31-35); MEAN CORPUSCULAR VOLUME 93.2 fL (81-99); MONOCYTES # (AUTO) 0.8 (0.2-0.8); MONOCYTES % 4.9 % (4.4-11.3); NEUTROPHILS # (AUTO) 12.4 (2.1-6.9); PLATELET COUNT 280 x10e3/uL (140-360); RED BLOOD COUNT 3.84 x10e6/uL (4.3-5.7); RED CELL DISTRIBUTION WIDTH 14.2 % (11.7-14.4)
[2023-02-01 06:39] LABS: ALBUMIN 2.7 g/dL (3.5-5.0); ALBUMIN/GLOBULIN RATIO 0.6 (0.8-2.0); ANION GAP 16.7 mmol/L (8-16); CALCIUM 9.5 mg/dL (8.4-10.2); CREATININE, SERUM 1.01 mg/dL (0.72-1.25); POTASSIUM 3.7 mmol/L (3.5-5.1)
[2023-02-01] MEDS: INSULIN LISPRO 100 UNIT/1 ML 3ML VIAL SQ SCH ×4 (07:30→20:39)
[2023-02-01] MEDS: FAMOTIDINE 20 MG TAB PO SCH ×2 (07:30→17:12)
[2023-02-01] MEDS: TAMSULOSIN HCL 0.4 MG CAP PO SCH ×2 (09:00→17:11)
[2023-02-01] MEDS: PREGABALIN 50 MG CAP PO SCH ×2 (09:00→17:11)
[2023-02-01] MEDS: INSULIN GLARGINE 100 UNITS/ML VIAL SQ SCH ×2 (09:00→20:39)
[2023-02-01] MEDS: METOPROLOL SUCCINATE 25 MG TAB XL PO SCH ×2 (09:00→17:12)
[2023-02-01] MEDS: DOCUSATE SODIUM 100 MG CAP PO SCH (09:00)
[2023-02-01] MEDS: SENNOSIDES 8.6 MG TAB PO SCH (09:00)
[2023-02-01] MEDS: FINASTERIDE 5 MG TAB PO SCH (09:00)
[2023-02-01] MEDS ORDERED: SODIUM CHLORIDE 0.9% 250ML 250 ML ONE (10:48)
[2023-02-01] MEDS ORDERED: PROPOFOL IV EMULSION 10 MG/ML 20 ML VIAL ONE (11:37)
[2023-02-01] MEDS ORDERED: ONDANSETRON HCL INJ 2MG/ML 2ML 2 MG/ML VIAL ONE (11:37)
[2023-02-01] MEDS ORDERED: POVIDONE IODINE 0.05% 0.05 % ML PO ONE (11:37)
[2023-02-01] MEDS ORDERED: LIDOCAINE HCL 2% LOCAL INJ 5 ML SDV VIAL INJ ONE (11:37)
[2023-02-01] MEDS ORDERED: SEVOFLURANE INHAL SOLN 250 ML PEN BTL ONE (11:37)
[2023-02-01] MEDS: CLINDAMYCIN PHOS 900MG/ 50ML 50 ML IV SCH ×2 (11:54→20:22)
[2023-02-01] MEDS ORDERED: NEOSTIGMINE 1 MG/ML 10ML VIAL ONE (12:03)
[2023-02-01] MEDS ORDERED: BUPIVACAINE HCL 0.5% INJ 30 ML VIAL INJ ONE (12:03)
[2023-02-01] MEDS ORDERED: DEXAMETHASONE SOD PHOS INJ 4 MG/ML SDV ONE (12:03)
[2023-02-01] MEDS ORDERED: ACETAMINOPHEN 1000 MG/100 ML 100 ML IV ONE (12:05)
[2023-02-01] MEDS ORDERED: FENTANYL CITRATE/PF 100MCG/2 ML INJ ONE ×2 (12:16→13:33)
[2023-02-01] MEDS: ENOXAPARIN SOD INJ 40 MG/0.4 ML SYR SC SCH (17:12)
[2023-02-01] MEDS: ATORVASTATIN 40 MG TAB PO SCH (20:23)
[2023-02-02 01:20] VITALS: BP 144/51; PULSE 86; RESP 20; TEMP 99.5; O2SAT 97
[2023-02-02 04:50] VITALS: BP 137/52; PULSE 84; RESP 19; TEMP 98.1; O2SAT 93
[2023-02-02] MEDS: CLINDAMYCIN PHOS 900MG/ 50ML 50 ML IV SCH ×3 (05:29→21:13)
[2023-02-02 05:43] LABS: BASOPHILS % 0.4 % (0.0-1.0); EOSINOPHILS # (AUTO) 0.3 (0.0-0.4); EOSINOPHILS % 2.7 % (0.0-6.0); HEMATOCRIT 29.6 % (38.2-49.6); HEMOGLOBIN 9.7 g/dL (14.0-18.0); LYMPHOCYTES # (AUTO) 1.5 (1.0-3.2); LYMPHOCYTES % 12.9 % (18.0-39.1); MEAN CORPUSCULAR HEMOGLOBIN 29.9 pg (28-32); MEAN CORPUSCULAR HGB CONC 32.8 g/dL (31-35); MEAN CORPUSCULAR VOLUME 91.4 fL (81-99); MONOCYTES # (AUTO) 0.7 (0.2-0.8); MONOCYTES % 6.5 % (4.4-11.3); NEUTROPHILS # (AUTO) 8.7 (2.1-6.9); NEUTROPHILS % 77.1 % (38.7-80.0); PLATELET COUNT 255 x10e3/uL (140-360); RED BLOOD COUNT 3.24 x10e6/uL (4.3-5.7); RED CELL DISTRIBUTION WIDTH 14.1 % (11.7-14.4)
[2023-02-02 06:15] LABS: ALBUMIN 2.2 g/dL (3.5-5.0); ALBUMIN/GLOBULIN RATIO 0.6 (0.8-2.0); ANION GAP 12.5 mmol/L (8-16); CALCIUM 8.5 mg/dL (8.4-10.2); CREATININE, SERUM 0.94 mg/dL (0.72-1.25); POTASSIUM 3.5 mmol/L (3.5-5.1)
[2023-02-02 08:10] VITALS: BP 102/59; PULSE 79; RESP 20; TEMP 98.2; O2SAT 96
[2023-02-02] MEDS: INSULIN GLARGINE 100 UNITS/ML VIAL SQ SCH ×2 (09:00→21:26)
[2023-02-02] MEDS: FAMOTIDINE 20 MG TAB PO SCH ×2 (09:58→18:03)
[2023-02-02] MEDS: PREGABALIN 50 MG CAP PO SCH ×2 (09:58→18:02)
[2023-02-02] MEDS: DOCUSATE SODIUM 100 MG CAP PO SCH (09:58)
[2023-02-02] MEDS: FINASTERIDE 5 MG TAB PO SCH (09:58)
[2023-02-02] MEDS: METOPROLOL SUCCINATE 25 MG TAB XL PO SCH ×2 (09:59→18:02)
[2023-02-02] MEDS: SENNOSIDES 8.6 MG TAB PO SCH (09:59)
[2023-02-02] MEDS: TAMSULOSIN HCL 0.4 MG CAP PO SCH ×2 (09:59→18:01)
[2023-02-02] MEDS ORDERED: SODIUM CHLORIDE 0.9% 100 ML ONE (10:59)
[2023-02-02] MEDS ORDERED: CLOPIDOGREL BISULFATE 75 MG TAB PO ONE ×2 (11:00→18:00)
[2023-02-02] MEDS ORDERED: ASPIRIN 81 MG ENTERIC COATED PO SCH (11:00)
[2023-02-02] MEDS ORDERED: IOPAMIDOL 370 MG/ML 100 ML INFUS..BTL INJ ONE (11:00)
[2023-02-02 11:44] VITALS: BP 109/56; PULSE 74; RESP 20; TEMP 98.8; O2SAT 97
[2023-02-02] MEDS: INSULIN LISPRO 100 UNIT/1 ML 3ML VIAL SQ SCH ×4 (12:04→21:26)
[2023-02-02 15:48] VITALS: BP 103/61; PULSE 86; RESP 20; TEMP 98.1; O2SAT 98
[2023-02-02] MEDS: ENOXAPARIN SOD INJ 40 MG/0.4 ML SYR SC SCH (18:01)
[2023-02-02] MEDS: ASPIRIN 81 MG ENTERIC COATED PO SCH (18:03)
[2023-02-02] MEDS: HYDROCODONE/APAP 5MG-325MG TAB PO PRN (19:17)
[2023-02-02 20:00] VITALS: BP 104/52; PULSE 90; RESP 17; TEMP 98.4; O2SAT 99
[2023-02-02] MEDS: ATORVASTATIN 40 MG TAB PO SCH (21:14)
[2023-02-03] VITALS (8 sets, daily range): BP systolic 94–128; BP diastolic 44–67; PULSE 67–95; RESP 16–19; TEMP 97.6–98.6; O2SAT 95–100
[2023-02-03] MEDS: CLINDAMYCIN PHOS 900MG/ 50ML 50 ML IV SCH ×3 (03:31→20:28)
[2023-02-03 06:56] LABS: BASOPHILS # (AUTO) 0.1 (0.0-0.1); BASOPHILS % 0.5 % (0.0-1.0); EOSINOPHILS # (AUTO) 0.5 (0.0-0.4); EOSINOPHILS % 5.5 % (0.0-6.0); HEMATOCRIT 32.6 % (38.2-49.6); HEMOGLOBIN 10.4 g/dL (14.0-18.0); LYMPHOCYTES # (AUTO) 1.4 (1.0-3.2); LYMPHOCYTES % 14.9 % (18.0-39.1); MEAN CORPUSCULAR HEMOGLOBIN 29.6 pg (28-32); MEAN CORPUSCULAR HGB CONC 31.9 g/dL (31-35); MEAN CORPUSCULAR VOLUME 92.9 fL (81-99); MONOCYTES # (AUTO) 0.9 (0.2-0.8); NEUTROPHILS # (AUTO) 6.6 (2.1-6.9); NEUTROPHILS % 69.1 % (38.7-80.0); PLATELET COUNT 259 x10e3/uL (140-360); RED BLOOD COUNT 3.51 x10e6/uL (4.3-5.7); RED CELL DISTRIBUTION WIDTH 14.2 % (11.7-14.4)
[2023-02-03 07:17] LABS: CHOL/HDL RATIO 4.1 (3.9-4.7)
[2023-02-03 07:19] LABS: ALBUMIN 2.2 g/dL (3.5-5.0); ALBUMIN/GLOBULIN RATIO 0.5 (0.8-2.0); ANION GAP 13.5 mmol/L (8-16); CALCIUM 9.1 mg/dL (8.4-10.2); CREATININE, SERUM 0.93 mg/dL (0.72-1.25); POTASSIUM 3.5 mmol/L (3.5-5.1)
[2023-02-03 07:42] LABS: THYROID STIMULATING HORMONE 0.997 uIU/mL (0.350-4.940)
[2023-02-03] MEDS: CLOPIDOGREL BISULFATE 75 MG TAB PO SCH (09:28)
[2023-02-03] MEDS: DOCUSATE SODIUM 100 MG CAP PO SCH (09:28)
[2023-02-03] MEDS: TAMSULOSIN HCL 0.4 MG CAP PO SCH ×2 (09:28→16:43)
[2023-02-03] MEDS: FAMOTIDINE 20 MG TAB PO SCH ×2 (09:28→17:13)
[2023-02-03] MEDS: ASPIRIN 81 MG ENTERIC COATED PO SCH (09:28)
[2023-02-03] MEDS: FINASTERIDE 5 MG TAB PO SCH (09:28)
[2023-02-03] MEDS: METOPROLOL SUCCINATE 25 MG TAB XL PO SCH ×2 (09:29→16:44)
[2023-02-03] MEDS: INSULIN GLARGINE 100 UNITS/ML VIAL SQ SCH ×2 (09:32→22:38)
[2023-02-03] MEDS: INSULIN LISPRO 100 UNIT/1 ML 3ML VIAL SQ SCH ×4 (09:33→22:39)
[2023-02-03] MEDS: SENNOSIDES 8.6 MG TAB PO SCH (09:38)
[2023-02-03] MEDS: PREGABALIN 50 MG CAP PO SCH ×2 (09:38→16:43)
[2023-02-03] MEDS ORDERED: POTASSIUM CHLORIDE 10MEQ EA PO ONE (11:30)
[2023-02-03] MEDS: HYDROCODONE/APAP 5MG-325MG TAB PO PRN ×2 (12:49→20:28)
[2023-02-03] MEDS: ENOXAPARIN SOD INJ 40 MG/0.4 ML SYR SC SCH (16:44)
[2023-02-03] MEDS: ATORVASTATIN 40 MG TAB PO SCH (20:29)
[2023-02-03 21:53] LABS: CLARITY,URINE CLEAR (CLEAR); COLOR,URINE YELLOW (YELLOW); KETONES,URINE NEGATIVE (NEGATIVE); LEUKOCYTE ESTERASE ,URINE NEGATIVE (NEGATIVE); NITRITE,URINE NEGATIVE (NEGATIVE); PROTEIN,URINE DIPSTICK TRACE (NEGATIVE); URINE UROBILINOGEN 0.2 mg/dL (0.2 - 1)
[2023-02-03 22:01] LABS: BACTERIA,URINE MODERATE /HPF; EPITHELIAL CELLS,URINE FEW /LPF; YEAST,URINE MANY
[2023-02-04] VITALS (7 sets, daily range): BP systolic 94–126; BP diastolic 49–71; PULSE 74–84; RESP 16–18; TEMP 97.5–98.7; O2SAT 95–100
[2023-02-04] MEDS: CLINDAMYCIN PHOS 900MG/ 50ML 50 ML IV SCH ×3 (04:32→21:08)
[2023-02-04 06:38] LABS: BASOPHILS % 0.3 % (0.0-1.0); EOSINOPHILS # (AUTO) 0.5 (0.0-0.4); EOSINOPHILS % 5.2 % (0.0-6.0); HEMATOCRIT 30.8 % (38.2-49.6); HEMOGLOBIN 10.2 g/dL (14.0-18.0); LYMPHOCYTES # (AUTO) 1.6 (1.0-3.2); LYMPHOCYTES % 17.4 % (18.0-39.1); MEAN CORPUSCULAR HEMOGLOBIN 29.6 pg (28-32); MEAN CORPUSCULAR HGB CONC 33.1 g/dL (31-35); MEAN CORPUSCULAR VOLUME 89.3 fL (81-99); MONOCYTES % 10.6 % (4.4-11.3); NEUTROPHILS # (AUTO) 5.9 (2.1-6.9); NEUTROPHILS % 65.3 % (38.7-80.0); PLATELET COUNT 280 x10e3/uL (140-360); RED BLOOD COUNT 3.45 x10e6/uL (4.3-5.7); RED CELL DISTRIBUTION WIDTH 14.3 % (11.7-14.4)
[2023-02-04 06:55] LABS: ALBUMIN 2.2 g/dL (3.5-5.0); ALBUMIN/GLOBULIN RATIO 0.5 (0.8-2.0); ANION GAP 12.7 mmol/L (8-16); CREATININE, SERUM 1.03 mg/dL (0.72-1.25); POTASSIUM 3.7 mmol/L (3.5-5.1)
[2023-02-04] MEDS: HYDROCODONE/APAP 5MG-325MG TAB PO PRN (09:08)
[2023-02-04] MEDS: TAMSULOSIN HCL 0.4 MG CAP PO SCH ×2 (10:12→16:11)
[2023-02-04] MEDS: ASPIRIN 81 MG ENTERIC COATED PO SCH (10:12)
[2023-02-04] MEDS: FAMOTIDINE 20 MG TAB PO SCH ×2 (10:12→16:12)
[2023-02-04] MEDS: CLOPIDOGREL BISULFATE 75 MG TAB PO SCH (10:12)
[2023-02-04] MEDS: FINASTERIDE 5 MG TAB PO SCH (10:12)
[2023-02-04] MEDS: DOCUSATE SODIUM 100 MG CAP PO SCH (10:12)
[2023-02-04] MEDS: PREGABALIN 50 MG CAP PO SCH ×2 (10:12→16:12)
[2023-02-04] MEDS: METOPROLOL SUCCINATE 25 MG TAB XL PO SCH ×2 (10:13→16:11)
[2023-02-04] MEDS: INSULIN LISPRO 100 UNIT/1 ML 3ML VIAL SQ SCH ×6 (10:18→21:17)
[2023-02-04] MEDS: SENNOSIDES 8.6 MG TAB PO SCH (10:26)
[2023-02-04] MEDS: SODIUM CHLORIDE 0.9% 1000ML 1,000 ML IV SCH (13:11)
[2023-02-04] MEDS: ATORVASTATIN 40 MG TAB PO SCH (21:10)
[2023-02-04] MEDS: INSULIN GLARGINE 100 UNITS/ML VIAL SQ SCH (21:16)
[2023-02-05] VITALS (9 sets, daily range): BP systolic 92–158; BP diastolic 45–76; PULSE 68–88; RESP 17–18; TEMP 97.7–98.6; O2SAT 99–100
[2023-02-05] MEDS: CLINDAMYCIN PHOS 900MG/ 50ML 50 ML IV SCH (03:43)
[2023-02-05] MEDS: HYDROCODONE/APAP 5MG-325MG TAB PO PRN (05:21)
[2023-02-05 05:56] LABS: BASOPHILS # (AUTO) 0.1 (0.0-0.1); BASOPHILS % 0.8 % (0.0-1.0); EOSINOPHILS # (AUTO) 0.5 (0.0-0.4); EOSINOPHILS % 5.1 % (0.0-6.0); HEMATOCRIT 32.5 % (38.2-49.6); HEMOGLOBIN 10.2 g/dL (14.0-18.0); LYMPHOCYTES # (AUTO) 1.8 (1.0-3.2); LYMPHOCYTES % 19.8 % (18.0-39.1); MEAN CORPUSCULAR HEMOGLOBIN 29.1 pg (28-32); MEAN CORPUSCULAR HGB CONC 31.4 g/dL (31-35); MEAN CORPUSCULAR VOLUME 92.9 fL (81-99); MONOCYTES # (AUTO) 0.9 (0.2-0.8); MONOCYTES % 9.7 % (4.4-11.3); NEUTROPHILS # (AUTO) 5.9 (2.1-6.9); NEUTROPHILS % 63.2 % (38.7-80.0); PLATELET COUNT 302 x10e3/uL (140-360); RED CELL DISTRIBUTION WIDTH 14.6 % (11.7-14.4)
[2023-02-05 06:35] LABS: ALBUMIN 2.1 g/dL (3.5-5.0); ALBUMIN/GLOBULIN RATIO 0.5 (0.8-2.0); CALCIUM 9.3 mg/dL (8.4-10.2); CREATININE, SERUM 1.05 mg/dL (0.72-1.25)
[2023-02-05] MEDS: INSULIN LISPRO 100 UNIT/1 ML 3ML VIAL SQ SCH ×7 (07:30→21:25)
[2023-02-05] MEDS: METOPROLOL SUCCINATE 25 MG TAB XL PO SCH ×2 (08:19→16:20)
[2023-02-05] MEDS: PREGABALIN 50 MG CAP PO SCH ×2 (08:19→16:19)
[2023-02-05] MEDS: TAMSULOSIN HCL 0.4 MG CAP PO SCH (08:19)
[2023-02-05] MEDS: CLOPIDOGREL BISULFATE 75 MG TAB PO SCH (08:19)
[2023-02-05] MEDS: ASPIRIN 81 MG ENTERIC COATED PO SCH (08:19)
[2023-02-05] MEDS: FINASTERIDE 5 MG TAB PO SCH (08:19)
[2023-02-05] MEDS: FAMOTIDINE 20 MG TAB PO SCH ×2 (08:20→16:18)
[2023-02-05] MEDS: DOCUSATE SODIUM 100 MG CAP PO SCH (08:21)
[2023-02-05] MEDS: SENNOSIDES 8.6 MG TAB PO SCH (08:21)
[2023-02-05] MEDS: INSULIN GLARGINE 100 UNITS/ML VIAL SQ SCH ×2 (08:22→21:25)
[2023-02-05] MEDS: SODIUM CHLORIDE 0.9% 1000ML 1,000 ML IV SCH ×2 (08:25→17:24)
[2023-02-05] MEDS ORDERED: HEPARIN SOD/SOD CHLORIDE 2,000 ML ONE (11:00)
[2023-02-05] MEDS ORDERED: LIDOCAINE HCL 2% LOCAL 20 ML VIAL ONE (11:00)
[2023-02-05] MEDS ORDERED: IOPAMIDOL 370 MG/ML 100 ML INFUS..BTL INJ ONE (11:01)
[2023-02-05] MEDS ORDERED: NITROGLYCERIN/D5W 200 MCG/ML 250 ML ONE (11:01)
[2023-02-05] MEDS ORDERED: SODIUM CHLORIDE 0.9% 1000ML 1,000 ML ONE ×2 (11:01→11:30)
[2023-02-05] MEDS ORDERED: MIDAZOLAM HCL 2 MG/2 ML VIAL ONE (11:05)
[2023-02-05] MEDS ORDERED: FENTANYL CITRATE/PF 100MCG/2 ML INJ ONE (11:06)
[2023-02-05] MEDS ORDERED: VERAPAMIL HCL 2.5 MG/ML 2 ML VIAL ONE (11:41)
[2023-02-05] MEDS ORDERED: CLOPIDOGREL BISULFATE 75 MG TAB ONE (11:58)
[2023-02-05] MEDS ORDERED: ASPIRIN 325 MG TAB ONE (11:59)
[2023-02-05] MEDS: CLINDAMYCIN 600MG / 50ML 50 ML IV SCH ×2 (14:13→21:22)
[2023-02-05] MEDS: Clindamycin INJ 300 MG/50 ML 50 ML IV SCH ×2 (15:03→21:22)
[2023-02-05 16:01] LABS: ANION GAP 13.2 mmol/L (8-16); CALCIUM 9.5 mg/dL (8.4-10.2); CREATININE, SERUM 1.21 mg/dL (0.72-1.25); POTASSIUM 4.2 mmol/L (3.5-5.1)
[2023-02-05] MEDS: ATORVASTATIN 40 MG TAB PO SCH (21:22)
[2023-02-06] MEDS: SODIUM CHLORIDE 0.9% 1000ML 1,000 ML IV SCH ×2 (00:29→09:11)
[2023-02-06 01:25] VITALS: BP 117/80; PULSE 69; RESP 18; TEMP 98.7; O2SAT 100
[2023-02-06 02:17] VITALS: BP 117/80; PULSE 69; RESP 18; TEMP 98.7; O2SAT 100
[2023-02-06] MEDS: Clindamycin INJ 300 MG/50 ML 50 ML IV SCH (04:27)
[2023-02-06] MEDS: CLINDAMYCIN 600MG / 50ML 50 ML IV SCH ×2 (04:27→11:39)
[2023-02-06 05:47] VITALS: BP 128/59; PULSE 73; RESP 18; TEMP 98.6; O2SAT 99
[2023-02-06 05:48] LABS: BASOPHILS # (AUTO) 0.1 (0.0-0.1); BASOPHILS % 0.7 % (0.0-1.0); EOSINOPHILS # (AUTO) 0.5 (0.0-0.4); EOSINOPHILS % 5.1 % (0.0-6.0); HEMATOCRIT 31.7 % (38.2-49.6); HEMOGLOBIN 10.2 g/dL (14.0-18.0); LYMPHOCYTES # (AUTO) 2.1 (1.0-3.2); LYMPHOCYTES % 23.5 % (18.0-39.1); MEAN CORPUSCULAR HEMOGLOBIN 29.7 pg (28-32); MEAN CORPUSCULAR HGB CONC 32.2 g/dL (31-35); MEAN CORPUSCULAR VOLUME 92.2 fL (81-99); MONOCYTES # (AUTO) 0.9 (0.2-0.8); MONOCYTES % 9.9 % (4.4-11.3); NEUTROPHILS # (AUTO) 5.2 (2.1-6.9); NEUTROPHILS % 59.2 % (38.7-80.0); PLATELET COUNT 309 x10e3/uL (140-360); RED BLOOD COUNT 3.44 x10e6/uL (4.3-5.7); RED CELL DISTRIBUTION WIDTH 14.5 % (11.7-14.4)
[2023-02-06 06:16] LABS: ALBUMIN 2.3 g/dL (3.5-5.0); ALBUMIN/GLOBULIN RATIO 0.5 (0.8-2.0); ANION GAP 12.1 mmol/L (8-16); CALCIUM 9.1 mg/dL (8.4-10.2); CREATININE, SERUM 0.9 mg/dL (0.72-1.25); POTASSIUM 4.1 mmol/L (3.5-5.1)
[2023-02-06 08:17] VITALS: BP 118/68; PULSE 90; RESP 19; TEMP 97.7; O2SAT 96
[2023-02-06] MEDS: PREGABALIN 50 MG CAP PO SCH (08:58)
[2023-02-06] MEDS: FAMOTIDINE 20 MG TAB PO SCH (08:59)
[2023-02-06] MEDS: METOPROLOL SUCCINATE 25 MG TAB XL PO SCH (08:59)
[2023-02-06] MEDS: SENNOSIDES 8.6 MG TAB PO SCH (08:59)
[2023-02-06] MEDS: ASPIRIN 81 MG ENTERIC COATED PO SCH (08:59)
[2023-02-06] MEDS: CLOPIDOGREL BISULFATE 75 MG TAB PO SCH (09:00)
[2023-02-06] MEDS: FINASTERIDE 5 MG TAB PO SCH (09:00)
[2023-02-06] MEDS: INSULIN GLARGINE 100 UNITS/ML VIAL SQ SCH (09:04)
[2023-02-06] MEDS: INSULIN LISPRO 100 UNIT/1 ML 3ML VIAL SQ SCH ×4 (09:07→11:30)
[2023-02-06] MEDS: DOCUSATE SODIUM 100 MG CAP PO SCH (09:09)
[2023-02-06 09:15] VITALS: BP 118/68; PULSE 88; PULSE 90; RESP 19; TEMP 97.7; O2SAT 96
[2023-02-06] MEDS ORDERED: TAMSULOSIN HCL 0.4 MG CAP PO SCH (21:00)
== END 2023-02-06 12:32 | disposition home or self-care (01) | DRG 853 ==
LOC: FSED 10:45 → ERHOLD 12:11 → MED/SURG2 13:50
PROVIDERS: ADMIT Internal Medicine; ATTEND Internal Medicine
PROC: 0Y9N0ZX Drainage of Left Foot, Open Approach, Diagnostic (ICD-10-PCS; 2023-02-01)
PROC: 3E03029 Introduction of Other Anti-infective into Peripheral Vein, Open Approach (ICD-10-PCS; 2023-02-01)
PROC: 047L3Z1 Dilation of Left Femoral Artery using Drug-Coated Balloon, Percutaneous Approach (ICD-10-PCS; principal; 2023-02-05)
PROC: 04CL3ZZ Extirpation of Matter from Left Femoral Artery, Percutaneous Approach (ICD-10-PCS; 2023-02-05)
PROC: B4101ZZ Fluoroscopy of Abdominal Aorta using Low Osmolar Contrast (ICD-10-PCS; 2023-02-05)
DX: A41.9 Sepsis, unspecified organism (principal); E43 Unspecified severe protein-calorie malnutrition; L03.116 Cellulitis of left lower limb; L02.612 Cutaneous abscess of left foot; S91.342A Puncture wound with foreign body, left foot, initial encounter; W45.0XXA Nail entering through skin, initial encounter; Y92.9 Unspecified place or not applicable; D50.9 Iron deficiency anemia, unspecified; D63.8 Anemia in other chronic diseases classified elsewhere; I25.10 Atherosclerotic heart disease of native coronary artery without angina pectoris; E11.40 Type 2 diabetes mellitus with diabetic neuropathy, unspecified; B96.89 Other specified bacterial agents as the cause of diseases classified elsewhere; N32.81 Overactive bladder; N39.41 Urge incontinence; E66.9 Obesity, unspecified; N40.1 Benign prostatic hyperplasia with lower urinary tract symptoms; E11.51 Type 2 diabetes mellitus with diabetic peripheral angiopathy without gangrene; E78.00 Pure hypercholesterolemia, unspecified; Z95.1 Presence of aortocoronary bypass graft; Z79.82 Long term (current) use of aspirin; Z79.899 Other long term (current) drug therapy; Z79.4 Long term (current) use of insulin; Z68.32 Body mass index [BMI] 32.0-32.9, adult; Z20.822 Contact with and (suspected) exposure to COVID-19
CPT/HCPCS: 36200; 36415; 37224; 37225; 75635; 75716; 80048; 80053; 80061; 81001; 82607; 82728; 82948; 83036; 83540; 83605; 83735; 84443; 84466; 85025; 87040; 87071; 87075; 87186; 87205; 93005; 93306; 93925; 96374; 96376; 99152; 99153; 99252; 99284; C1724; C1769; C1894; C2623; J0692; J1100; J1650; J1815; J2001; J2250; J2405; J2543; J2710; J7030; J7050; Q9967

== ENCOUNTER 2023-05-28 10:29 | Outpatient (RCR) | payer MEDICARE ==
[~2023-05-28 10:29] MED LIST changes: +COLLAGENASE OINTMENT 30 GM TUBE ONE; +HUMALOG MI100 UNIT/2 SQ; +LEVEMIR100 UNIT/1; +LEVEMIR100 UNIT/1 SQ; +MINERAL OIL/PETROLAT/GLYCERI 6OZ BTL ONE; +PLAVIX75 MG PO; +TRULICITY0.75 MG/0.; +TRYPSIN/BALSAM PERU/CASTOR OIL ONE
== END 2023-05-29 23:07 | disposition home or self-care (01) ==
LOC: WCC 10:29
PROVIDERS: ATTEND Internal Medicine Infectious Disease
DX: E11.621 Type 2 diabetes mellitus with foot ulcer (principal); L97.428 Non-pressure chronic ulcer of left heel and midfoot with other specified severity
CPT/HCPCS: 36415 ×19; 82948 ×20; 97602 ×5; 99212 ×6; 99213; G0277 ×21

== ENCOUNTER → 2023-06-28 | Outpatient (RCR) | payer MEDICARE | LOC: WCC 05-30 15:51 | PROVIDERS: ATTEND Internal Medicine Infectious Disease | DX: E11.621 Type 2 diabetes mellitus with foot ulcer (principal); L97.428 Non-pressure chronic ulcer of left heel and midfoot with other specified severity | CPT/HCPCS: 11042 ×3; 36415 ×6; 82948 ×6; 97602 ×2; 99212 ×6; 99213 ×3; G0277 ×8 ==

== ENCOUNTER 2024-05-31 19:41 | Inpatient (IN) | payer MEDICARE ==
[~2024-05-31] VITALS: Ht 162.6 cm; Wt 83.5 kg
[~2024-05-31 19:41] MED LIST changes: +CEFDINIR300 MG PO; -COLLAGENASE OINTMENT 30 GM TUBE ONE; +CYMBALTA30 MG; -MINERAL OIL/PETROLAT/GLYCERI 6OZ BTL ONE; +SYNJARDY 12.5-1 EACH; +TRESIBA100 UNIT/1; -TRYPSIN/BALSAM PERU/CASTOR OIL ONE; +TYLENOL325 MG PO
[2024-05-31 19:48] VITALS: PULSE 86; RESP 18; TEMP 99.3
[2024-05-31] MEDS: LEVOFLOXACIN 500MG/D5W 100ML 100 ML IV ONE (21:37)
[2024-06-01] VITALS (8 sets, daily range): BP systolic 122–153; BP diastolic 64–78; PULSE 74–80; RESP 18–20; TEMP 97.5–98.2; O2SAT 91–97
[2024-06-01] MEDS ORDERED: SODIUM CHLORIDE FLUSH 10 ML SYR INJ PRN
[2024-06-01] MEDS: ACETAMINOPHEN 325 MG TAB PO ONE (00:45)
[2024-06-01] MEDS: METRONIDAZOLE 500MG/NS 100ML 100 ML IV SCH (05:09)
[2024-06-01 08:28] LABS: BASOPHILS # (AUTO) 0.1 (0.0-0.1); BASOPHILS % 0.5 % (0.0-1.0); EOSINOPHILS % 10.5 % (0.0-6.0); HEMATOCRIT 34.4 % (38.2-49.6); HEMOGLOBIN 10.5 g/dL (14.0-18.0); LYMPHOCYTES # (AUTO) 1.8 (1.0-3.2); LYMPHOCYTES % 19.2 % (18.0-39.1); MEAN CORPUSCULAR HEMOGLOBIN 29.2 pg (28-32); MEAN CORPUSCULAR HGB CONC 30.5 g/dL (31-35); MEAN CORPUSCULAR VOLUME 95.6 fL (81-99); MONOCYTES % 11.3 % (4.4-11.3); NEUTROPHILS # (AUTO) 5.3 (2.1-6.9); NEUTROPHILS % 58.1 % (38.7-80.0); PLATELET COUNT 265 x10e3/uL (140-360); RED CELL DISTRIBUTION WIDTH 14.6 % (11.7-14.4); WHITE BLOOD COUNT 9.15 x10e3/uL (4.8-10.8)
[2024-06-01 08:44] LABS: ANION GAP 14.7 mmol/L (8-16); CREATININE, SERUM 0.86 mg/dL (0.72-1.25); POTASSIUM 3.7 mmol/L (3.5-5.1)
[2024-06-01] MEDS ORDERED: DEXTROSE 50% SYRINGE 50 ML IV PRN (09:00)
[2024-06-01] MEDS ORDERED: IOPAMIDOL 370 MG/ML 100 ML INFUS..BTL INJ ONE (09:06)
[2024-06-01 09:30] LABS: CHOL/HDL RATIO 3.5 (3.9-4.7)
[2024-06-01 09:32] LABS: ALBUMIN 2.7 g/dL (3.5-5.0); ALBUMIN/GLOBULIN RATIO 0.7 (0.8-2.0); ANION GAP 16.9 mmol/L (8-16); BILIRUBIN,TOTAL 0.4 mg/dL (0.2-1.2); CREATININE, SERUM 0.97 mg/dL (0.72-1.25); POTASSIUM 3.9 mmol/L (3.5-5.1); TOTAL PROTEIN 6.5 g/dL (6.5-8.1)
[2024-06-01 10:04] LABS: FERRITIN 207.81 ng/mL (21.81-274.66)
[2024-06-01] MEDS: DULOXETINE HCL 30 MG DELAYED RELEASE PO SCH (10:06)
[2024-06-01] MEDS: PREGABALIN 50 MG CAP PO SCH (10:07)
[2024-06-01] MEDS: METOPROLOL TARTRATE 25 MG TAB PO SCH (10:07)
[2024-06-01] MEDS: FAMOTIDINE 20 MG/2 ML VIAL IV SCH (10:08)
[2024-06-01] MEDS: CEFEPIME 2 GM in SODIUM CHLORIDE 0.9% 100 ML IV SCH (10:08)
[2024-06-01] MEDS: Vancomycin IV 1 GM in SODIUM CHLORIDE 0.9% 250ML 250 ML IV SCH (10:08)
[2024-06-01] MEDS: SODIUM CHLORIDE 0.9% 1000ML 1,000 ML IV SCH (10:08)
[2024-06-01] MEDS: FERROUS SULFATE 325 MG TAB PO ONE (12:45)
[2024-06-01] MEDS: INSULIN REGULAR, HUMAN 100 UNIT/1 ML SQ SCH (12:50)
[2024-06-01] MEDS: ACETAMINOPHEN 325 MG TAB PO PRN (17:44)
[2024-06-01] MEDS: ATORVASTATIN 40 MG TAB PO SCH (20:56)
[2024-06-01] MEDS ORDERED: LEVOFLOXACIN 500MG/D5W 100ML 100 ML IV SCH ×2 (21:00)
[2024-06-02] VITALS (7 sets, daily range): BP systolic 121–138; BP diastolic 56–72; PULSE 76–83; RESP 17–20; TEMP 98–98.5; O2SAT 90–100
[2024-06-02 06:04] LABS: BASOPHILS # (AUTO) 0.1 (0.0-0.1); BASOPHILS % 0.4 % (0.0-1.0); EOSINOPHILS # (AUTO) 0.8 (0.0-0.4); EOSINOPHILS % 6.8 % (0.0-6.0); HEMATOCRIT 33.5 % (38.2-49.6); HEMOGLOBIN 10.3 g/dL (14.0-18.0); LYMPHOCYTES # (AUTO) 1.8 (1.0-3.2); LYMPHOCYTES % 15.9 % (18.0-39.1); MEAN CORPUSCULAR HEMOGLOBIN 29.5 pg (28-32); MEAN CORPUSCULAR HGB CONC 30.7 g/dL (31-35); MONOCYTES # (AUTO) 1.1 (0.2-0.8); MONOCYTES % 9.5 % (4.4-11.3); NEUTROPHILS # (AUTO) 7.6 (2.1-6.9); NEUTROPHILS % 66.8 % (38.7-80.0); PLATELET COUNT 290 x10e3/uL (140-360); RED BLOOD COUNT 3.49 x10e6/uL (4.3-5.7); RED CELL DISTRIBUTION WIDTH 14.5 % (11.7-14.4); WHITE BLOOD COUNT 11.42 x10e3/uL (4.8-10.8)
[2024-06-02 06:21] LABS: ALBUMIN 2.5 g/dL (3.5-5.0); ALBUMIN/GLOBULIN RATIO 0.7 (0.8-2.0); ANION GAP 13.7 mmol/L (8-16); BILIRUBIN,TOTAL 0.3 mg/dL (0.2-1.2); CALCIUM 9.2 mg/dL (8.4-10.2); CREATININE, SERUM 1.07 mg/dL (0.72-1.25); POTASSIUM 3.7 mmol/L (3.5-5.1); TOTAL PROTEIN 6.1 g/dL (6.5-8.1)
[2024-06-02] MEDS: SODIUM CHLORIDE 0.9% 1000ML 1,000 ML IV SCH (08:48)
[2024-06-02] MEDS: FINASTERIDE 5 MG TAB PO SCH (08:49)
[2024-06-02] MEDS: HYDROCODONE/APAP 5MG-325MG TAB PO PRN (08:50)
[2024-06-02] MEDS ORDERED: [UNRECOGNIZED DRUG - OTHER] IV SCH (09:00)
[2024-06-02] MEDS ORDERED: Vancomycin IV 500 MG IV SCH (09:00)
[2024-06-02] MEDS: ASPIRIN 81 MG ENTERIC COATED PO SCH (10:57)
[2024-06-02] MEDS: CLOPIDOGREL BISULFATE 75 MG TAB PO ONE (10:58)
[2024-06-02] MEDS: Morphine 2mg Syringe 2 MG/ML SYR IV PRN (11:54)
[2024-06-02] MEDS: CLINDAMYCIN 600MG / 50ML 50 ML IV SCH (14:47)
[2024-06-03] VITALS (8 sets, daily range): BP systolic 105–173; BP diastolic 53–71; PULSE 61–93; RESP 17–19; TEMP 97.9–98.8; O2SAT 95–100
[2024-06-03 06:28] LABS: BASOPHILS % 0.4 % (0.0-1.0); EOSINOPHILS # (AUTO) 0.9 (0.0-0.4); EOSINOPHILS % 8.8 % (0.0-6.0); HEMATOCRIT 32.9 % (38.2-49.6); HEMOGLOBIN 10.3 g/dL (14.0-18.0); LYMPHOCYTES # (AUTO) 1.5 (1.0-3.2); LYMPHOCYTES % 15.2 % (18.0-39.1); MEAN CORPUSCULAR HEMOGLOBIN 29.6 pg (28-32); MEAN CORPUSCULAR HGB CONC 31.3 g/dL (31-35); MEAN CORPUSCULAR VOLUME 94.5 fL (81-99); MONOCYTES # (AUTO) 0.9 (0.2-0.8); NEUTROPHILS # (AUTO) 6.7 (2.1-6.9); NEUTROPHILS % 65.8 % (38.7-80.0); PLATELET COUNT 295 x10e3/uL (140-360); RED BLOOD COUNT 3.48 x10e6/uL (4.3-5.7); RED CELL DISTRIBUTION WIDTH 14.6 % (11.7-14.4); WHITE BLOOD COUNT 10.11 x10e3/uL (4.8-10.8)
[2024-06-03 06:56] LABS: ALBUMIN 2.4 g/dL (3.5-5.0); ALBUMIN/GLOBULIN RATIO 0.6 (0.8-2.0); ANION GAP 11.6 mmol/L (8-16); BILIRUBIN,TOTAL 0.3 mg/dL (0.2-1.2); CALCIUM 8.9 mg/dL (8.4-10.2); CREATININE, SERUM 0.94 mg/dL (0.72-1.25); POTASSIUM 3.6 mmol/L (3.5-5.1); TOTAL PROTEIN 6.3 g/dL (6.5-8.1)
[2024-06-03 07:15] LABS: CHOL/HDL RATIO 3.6 (3.9-4.7)
[2024-06-03 07:34] LABS: THYROID STIMULATING HORMONE 0.212 uIU/mL (0.350-4.940)
[2024-06-03] MEDS: METOPROLOL SUCCINATE 25 MG TAB XL PO SCH (10:03)
[2024-06-04] VITALS (7 sets, daily range): BP systolic 121–160; BP diastolic 47–91; PULSE 67–73; RESP 17–20; TEMP 97.3–98.6; O2SAT 95–100
[2024-06-04 06:36] LABS: BASOPHILS % 0.3 % (0.0-1.0); EOSINOPHILS # (AUTO) 1.3 (0.0-0.4); EOSINOPHILS % 10.1 % (0.0-6.0); HEMATOCRIT 37.5 % (38.2-49.6); HEMOGLOBIN 11.2 g/dL (14.0-18.0); LYMPHOCYTES # (AUTO) 2.6 (1.0-3.2); LYMPHOCYTES % 19.5 % (18.0-39.1); MEAN CORPUSCULAR HEMOGLOBIN 29.2 pg (28-32); MEAN CORPUSCULAR HGB CONC 29.9 g/dL (31-35); MEAN CORPUSCULAR VOLUME 97.9 fL (81-99); MONOCYTES # (AUTO) 1.1 (0.2-0.8); MONOCYTES % 8.6 % (4.4-11.3); NEUTROPHILS % 60.6 % (38.7-80.0); PLATELET COUNT 360 x10e3/uL (140-360); RED BLOOD COUNT 3.83 x10e6/uL (4.3-5.7); RED CELL DISTRIBUTION WIDTH 14.6 % (11.7-14.4); WHITE BLOOD COUNT 13.15 x10e3/uL (4.8-10.8)
[2024-06-04 07:03] LABS: ALBUMIN 2.7 g/dL (3.5-5.0); ALBUMIN/GLOBULIN RATIO 0.6 (0.8-2.0); ANION GAP 15.7 mmol/L (8-16); BILIRUBIN,TOTAL 0.3 mg/dL (0.2-1.2); CALCIUM 9.5 mg/dL (8.4-10.2); CREATININE, SERUM 0.93 mg/dL (0.72-1.25); POTASSIUM 3.7 mmol/L (3.5-5.1); TOTAL PROTEIN 6.9 g/dL (6.5-8.1)
[2024-06-04] MEDS ORDERED: PROPOFOL IV EMULSION 10 MG/ML 20 ML VIAL ONE (11:00)
[2024-06-04] MEDS ORDERED: FENTANYL CITRATE/PF 100MCG/2 ML INJ ONE (11:00)
[2024-06-04] MEDS ORDERED: LIDOCAINE HCL 2% LOCAL INJ 5 ML SDV VIAL INJ ONE (11:00)
[2024-06-04] MEDS ORDERED: BUPIVACAINE HCL 0.5% INJ 30 ML VIAL INJ ONE (11:38)
[2024-06-04] MEDS ORDERED: ONDANSETRON HCL INJ 2MG/ML 2ML 2 MG/ML VIAL ONE (11:48)
[2024-06-04] MEDS ORDERED: DEXAMETHASONE SOD PHOS INJ 4 MG/ML SDV ONE (11:48)
[2024-06-04] MEDS: VANCOMYCIN 1.25GM/250 ML (PEG) 250 ML IV SCH (16:15)
[2024-06-05] VITALS (9 sets, daily range): BP systolic 124–156; BP diastolic 47–98; PULSE 63–98; RESP 15–21; TEMP 97.3–98.8; O2SAT 97–100
[2024-06-05 06:29] LABS: BASOPHILS % 0.3 % (0.0-1.0); EOSINOPHILS # (AUTO) 0.1 (0.0-0.4); EOSINOPHILS % 0.6 % (0.0-6.0); HEMATOCRIT 31.8 % (38.2-49.6); HEMOGLOBIN 10.4 g/dL (14.0-18.0); LYMPHOCYTES # (AUTO) 1.9 (1.0-3.2); LYMPHOCYTES % 12.6 % (18.0-39.1); MEAN CORPUSCULAR HEMOGLOBIN 30.1 pg (28-32); MEAN CORPUSCULAR HGB CONC 32.7 g/dL (31-35); MEAN CORPUSCULAR VOLUME 91.9 fL (81-99); MONOCYTES # (AUTO) 1.3 (0.2-0.8); MONOCYTES % 8.8 % (4.4-11.3); NEUTROPHILS # (AUTO) 11.5 (2.1-6.9); NEUTROPHILS % 77.1 % (38.7-80.0); PLATELET COUNT 352 x10e3/uL (140-360); RED BLOOD COUNT 3.46 x10e6/uL (4.3-5.7); RED CELL DISTRIBUTION WIDTH 14.6 % (11.7-14.4); WHITE BLOOD COUNT 14.89 x10e3/uL (4.8-10.8)
[2024-06-05 07:19] LABS: ALBUMIN 2.6 g/dL (3.5-5.0); ALBUMIN/GLOBULIN RATIO 0.6 (0.8-2.0); ANION GAP 14.1 mmol/L (8-16); BILIRUBIN,TOTAL 0.3 mg/dL (0.2-1.2); CALCIUM 9.5 mg/dL (8.4-10.2); CREATININE, SERUM 0.96 mg/dL (0.72-1.25); POTASSIUM 4.1 mmol/L (3.5-5.1); TOTAL PROTEIN 6.8 g/dL (6.5-8.1)
[2024-06-05] MEDS ORDERED: VERAPAMIL HCL 2.5 MG/ML 2 ML VIAL ONE (12:39)
[2024-06-05] MEDS ORDERED: LIDOCAINE HCL 2% LOCAL 20 ML VIAL ONE (12:39)
[2024-06-05] MEDS ORDERED: HEPARIN SOD (PORCINE) 1000 UNIT/ML 30ML ONE (12:39)
[2024-06-05] MEDS ORDERED: NITROGLYCERIN/D5W 200 MCG/ML 250 ML ONE (12:40)
[2024-06-05] MEDS ORDERED: IOPAMIDOL 370 MG/ML 100 ML INFUS..BTL INJ ONE (12:40)
[2024-06-05] MEDS ORDERED: HEPARIN SOD/SOD CHLORIDE 2,000 ML ONE (12:40)
[2024-06-05] MEDS ORDERED: SODIUM CHLORIDE 0.9% 1000ML 1,000 ML ONE (12:40)
[2024-06-05] MEDS ORDERED: MIDAZOLAM HCL 2 MG/2 ML VIAL ONE (12:41)
[2024-06-05] MEDS ORDERED: FENTANYL CITRATE/PF 100MCG/2 ML INJ ONE (12:41)
[2024-06-05] MEDS ORDERED: PROTAMINE SULFATE 10 MG/ML 5 ML VIAL ONE (14:24)
[2024-06-06] VITALS: BP 128/67; PULSE 67; RESP 18; TEMP 97.4; O2SAT 98
[2024-06-06 04:00] VITALS: BP 109/68; PULSE 70; RESP 18; TEMP 98.7; O2SAT 98
[2024-06-06 06:02] LABS: BASOPHILS # (AUTO) 0.1 (0.0-0.1); BASOPHILS % 0.4 % (0.0-1.0); EOSINOPHILS # (AUTO) 0.4 (0.0-0.4); EOSINOPHILS % 3.8 % (0.0-6.0); HEMOGLOBIN 10.6 g/dL (14.0-18.0); LYMPHOCYTES # (AUTO) 2.6 (1.0-3.2); LYMPHOCYTES % 22.3 % (18.0-39.1); MEAN CORPUSCULAR HEMOGLOBIN 29.6 pg (28-32); MEAN CORPUSCULAR HGB CONC 32.1 g/dL (31-35); MEAN CORPUSCULAR VOLUME 92.2 fL (81-99); MONOCYTES # (AUTO) 1.1 (0.2-0.8); MONOCYTES % 9.3 % (4.4-11.3); NEUTROPHILS # (AUTO) 7.4 (2.1-6.9); NEUTROPHILS % 63.5 % (38.7-80.0); PLATELET COUNT 358 x10e3/uL (140-360); RED BLOOD COUNT 3.58 x10e6/uL (4.3-5.7); RED CELL DISTRIBUTION WIDTH 14.6 % (11.7-14.4); WHITE BLOOD COUNT 11.62 x10e3/uL (4.8-10.8)
[2024-06-06 06:27] LABS: ALBUMIN 2.6 g/dL (3.5-5.0); ALBUMIN/GLOBULIN RATIO 0.6 (0.8-2.0); ANION GAP 15.8 mmol/L (8-16); BILIRUBIN,TOTAL 0.3 mg/dL (0.2-1.2); CALCIUM 9.7 mg/dL (8.4-10.2); CREATININE, SERUM 1.02 mg/dL (0.72-1.25); POTASSIUM 4.8 mmol/L (3.5-5.1)
[2024-06-06 08:59] VITALS: BP 131/66; PULSE 73; RESP 20; TEMP 98; O2SAT 100
[2024-06-06 11:58] VITALS: BP 143/70; PULSE 63; RESP 18; TEMP 97.9; O2SAT 96
[2024-06-06] MEDS: CLOPIDOGREL BISULFATE 75 MG TAB PO SCH (13:13)
[2024-06-06] MEDS ORDERED: DOXYCYCLINE HY100 MG PO (13:59)
[2024-06-06] MEDS ORDERED: PLAVIX75 MG PO (13:59)
[2024-06-06] MEDS ORDERED: ASPIRIN EC81 MG PO (13:59)
[2024-06-06 16:22] VITALS: BP 124/66; PULSE 65; RESP 16; TEMP 97.9; O2SAT 98
[2024-06-07] MEDS ORDERED: FAMOTIDINE 20 MG TAB PO SCH (07:30)
== END 2024-06-06 16:30 | disposition home or self-care (01) | DRG 253 ==
LOC: FSED 19:47 → ERHOLD 23:53 → MED/SURG2 06-01 01:46
PROVIDERS: ADMIT Internal Medicine; ATTEND Internal Medicine
PROC: 0Y6R0Z0 Detachment at Right 2nd Toe, Complete, Open Approach (ICD-10-PCS; 2024-06-04)
PROC: 047M3ZZ Dilation of Right Popliteal Artery, Percutaneous Approach (ICD-10-PCS; principal; 2024-06-05)
PROC: B41F1ZZ Fluoroscopy of Right Lower Extremity Arteries using Low Osmolar Contrast (ICD-10-PCS; 2024-06-05)
DX: E11.52 Type 2 diabetes mellitus with diabetic peripheral angiopathy with gangrene (principal); L03.115 Cellulitis of right lower limb; L97.518 Non-pressure chronic ulcer of other part of right foot with other specified severity; E11.621 Type 2 diabetes mellitus with foot ulcer; E11.42 Type 2 diabetes mellitus with diabetic polyneuropathy; B95.62 Methicillin resistant Staphylococcus aureus infection as the cause of diseases classified elsewhere; D64.9 Anemia, unspecified; L03.031 Cellulitis of right toe; I10 Essential (primary) hypertension; E11.65 Type 2 diabetes mellitus with hyperglycemia; E78.5 Hyperlipidemia, unspecified; I25.10 Atherosclerotic heart disease of native coronary artery without angina pectoris; N40.0 Benign prostatic hyperplasia without lower urinary tract symptoms; E66.9 Obesity, unspecified; L08.9 Local infection of the skin and subcutaneous tissue, unspecified; Z68.31 Body mass index [BMI] 31.0-31.9, adult; Z79.4 Long term (current) use of insulin; Z79.02 Long term (current) use of antithrombotics/antiplatelets; Z79.82 Long term (current) use of aspirin; Z95.1 Presence of aortocoronary bypass graft; Z86.718 Personal history of other venous thrombosis and embolism; Z98.62 Peripheral vascular angioplasty status; Z90.79 Acquired absence of other genital organ(s); Z88.2 Allergy status to sulfonamides; Z83.3 Family history of diabetes mellitus; Z82.49 Family history of ischemic heart disease and other diseases of the circulatory system
CPT/HCPCS: 36246; 36415; 37228; 76937; 80048; 80053; 80061; 80202; 82607; 82728; 82746; 82948; 83036; 83540; 83735; 84443; 84466; 85025; 85045; 86140; 87040; 87071; 87075; 87186; 87205; 88304; 88305; 88311; 93005; 93306; 93925; 96365; 96372; 99152; 99153; 99252; 99284; C1725; C1769; C1887; C1894; J0692; J1100; J1644; J1956; J2003; J2250; J2270; J2405; J2720; J7030; J7050; Q9967

== ENCOUNTER → 2024-07-25 | Outpatient (REF) | payer MEDICARE ==
[~2024-07-25] MED LIST changes: +ASPIRIN EC81 MG PO; +DOXYCYCLINE HY100 MG PO
== END ==
LOC: MRI 09:02
PROVIDERS: ATTEND Nurse Practitioner Family
DX: Z01.810 Encounter for preprocedural cardiovascular examination (principal); T86.821 Skin graft (allograft) (autograft) failure

== ENCOUNTER → 2024-07-28 | Outpatient (REF) | payer MEDICARE | LOC: RAD 11:40 | PROVIDERS: ATTEND Nurse Practitioner Family | DX: Z01.810 Encounter for preprocedural cardiovascular examination (principal) | CPT/HCPCS: 93005 ==

== ENCOUNTER → 2024-08-29 | Outpatient (RCR) | payer MEDICARE ==
[~2024-08-29] MED LIST changes: +COLLAGENASE OINTMENT 30 GM TUBE ONE; +MINERAL OIL/PETROLAT/GLYCERI 6OZ BTL ONE
== END ==
LOC: WCC 08-01 12:29
PROVIDERS: ATTEND Nurse Practitioner Family
DX: T86.821 Skin graft (allograft) (autograft) failure (principal)
CPT/HCPCS: 36415 ×9; 82948 ×9; 97602 ×9; 99212 ×9; G0277 ×10

== ENCOUNTER → 2024-09-26 | Outpatient (RCR) | payer MEDICARE ==
[~2024-09-26] MED LIST changes: +SYNJARDY 12.5-1 EAC1
== END ==
LOC: WCC 09-01 11:18
PROVIDERS: ATTEND Plastic Surgery
DX: T86.821 Skin graft (allograft) (autograft) failure (principal)
CPT/HCPCS: 36415 ×17; 82948 ×18; 97602 ×16; 99212 ×18; G0277 ×18

== ENCOUNTER → 2024-10-03 | Outpatient (REF) | payer MEDICARE ==
[~2024-10-03] MED LIST changes: -COLLAGENASE OINTMENT 30 GM TUBE ONE; -MINERAL OIL/PETROLAT/GLYCERI 6OZ BTL ONE; -SYNJARDY 12.5-1 EAC1
== END ==
LOC: MRI 10:46
PROVIDERS: ATTEND Nurse Practitioner Family
DX: T86.821 Skin graft (allograft) (autograft) failure (principal)

== ENCOUNTER 2024-10-17 05:32 | Day surgery (SDC) | payer MEDICARE ==
[2024-10-14 11:52] LABS: BASOPHILS % 0.4 % (0.0-1.0); EOSINOPHILS # (AUTO) 0.4 (0.0-0.4); EOSINOPHILS % 3.7 % (0.0-6.0); HEMATOCRIT 34.4 % (38.2-49.6); LYMPHOCYTES # (AUTO) 1.8 (1.0-3.2); LYMPHOCYTES % 19.4 % (18.0-39.1); MEAN CORPUSCULAR HEMOGLOBIN 29.6 pg (28-32); MEAN CORPUSCULAR VOLUME 92.7 fL (81-99); MONOCYTES # (AUTO) 0.8 (0.2-0.8); MONOCYTES % 8.1 % (4.4-11.3); NEUTROPHILS # (AUTO) 6.4 (2.1-6.9); PLATELET COUNT 251 x10e3/uL (140-360); RED BLOOD COUNT 3.71 x10e6/uL (4.3-5.7); RED CELL DISTRIBUTION WIDTH 15.9 % (11.7-14.4); WHITE BLOOD COUNT 9.37 x10e3/uL (4.8-10.8)
[2024-10-14 12:20] LABS: ALBUMIN 3.4 g/dL (3.5-5.0); ANION GAP 16.5 mmol/L (8-16); BILIRUBIN,TOTAL 0.2 mg/dL (0.2-1.2); CALCIUM 9.3 mg/dL (8.4-10.2); CREATININE, SERUM 1.22 mg/dL (0.72-1.25); POTASSIUM 4.5 mmol/L (3.5-5.1); TOTAL PROTEIN 6.8 g/dL (6.5-8.1)
[2024-10-17] VITALS (10 sets, daily range): BP systolic 112–158; BP diastolic 66–78; PULSE 75–86; RESP 15–21; TEMP 96.6–96.9; O2SAT 98–100
[~2024-10-17] VITALS: Ht 162.6 cm; Wt 84.4 kg
[~2024-10-17 05:32] MED LIST changes: +SYNJARDY 12.5-1 EAC1
[2024-10-17] MEDS ORDERED: HEPARIN SOD (PORCINE) 1000 UNIT/ML 30ML ONE (06:45)
[2024-10-17] MEDS ORDERED: LIDOCAINE HCL 2% LOCAL 20 ML VIAL ONE (06:45)
[2024-10-17] MEDS ORDERED: VERAPAMIL HCL 2.5 MG/ML 2 ML VIAL ONE (06:45)
[2024-10-17] MEDS ORDERED: NITROGLYCERIN/D5W 200 MCG/ML 250 ML ONE (06:46)
[2024-10-17] MEDS ORDERED: SODIUM CHLORIDE 0.9% 1000ML 1,000 ML ONE (06:46)
[2024-10-17] MEDS ORDERED: HEPARIN SOD/SOD CHLORIDE 2,000 ML ONE (06:46)
[2024-10-17] MEDS ORDERED: IOPAMIDOL 370 MG/ML 100 ML INFUS..BTL INJ ONE (06:46)
[2024-10-17] MEDS ORDERED: MIDAZOLAM HCL 2 MG/2 ML VIAL ONE (07:51)
[2024-10-17] MEDS ORDERED: FENTANYL CITRATE/PF 100MCG/2 ML INJ ONE (07:52)
[2024-10-17] MEDS ORDERED: PROTAMINE SULFATE 10 MG/ML 5 ML VIAL ONE (09:49)
[2024-12-02] MEDS ORDERED: CEPHALEXIN500 MG PO (13:07)
[2024-12-02] MEDS ORDERED: CIPROFLOXACIN750 MG PO (13:39)
== END 2024-10-17 12:42 | disposition home or self-care (01) ==
LOC: CATH LAB 05:32
PROVIDERS: ATTEND Surgery Vascular Surgery
DX: I70.268 Atherosclerosis of native arteries of extremities with gangrene, other extremity (principal); Z88.2 Allergy status to sulfonamides; Z01.812 Encounter for preprocedural laboratory examination; Z79.02 Long term (current) use of antithrombotics/antiplatelets; Z79.82 Long term (current) use of aspirin; Z79.4 Long term (current) use of insulin; Z79.899 Other long term (current) drug therapy
CPT/HCPCS: 36415 ×2; 37224; 37228; 76937; 80053; 82948; 85025; C1725 ×3; C1769 ×3; C1887 ×2; C1894; J1644; J2003; J2250; J2720; J3010; J7030; Q9967; 75710; 99152; 99153

== ENCOUNTER 2024-10-27 08:07 | Outpatient (RCR) | payer MEDICARE ==
[~2024-10-27 08:07] MED LIST changes: +BALSAM PERU/CASTOR OIL 28.35 GM OINT...G. TP ONE; +COLLAGENASE OINTMENT 30 GM TUBE ONE; +MINERAL OIL/PETROLAT/GLYCERI 6OZ BTL ONE
== END 2024-10-27 09:14 | disposition home or self-care (01) ==
LOC: WCC 08:07
PROVIDERS: ATTEND Podiatrist Foot & Ankle Surgery
DX: T86.821 Skin graft (allograft) (autograft) failure (principal)
CPT/HCPCS: 36415 ×2; 82948 ×2; 83036; 87071; 87075; 87186; 87205; 97602 ×3; 99212 ×4; 99213 ×7; G0277 ×2

== ENCOUNTER → 2024-11-06 | Outpatient (REF) | payer MEDICARE ==
[~2024-11-06] MED LIST changes: -BALSAM PERU/CASTOR OIL 28.35 GM OINT...G. TP ONE; -COLLAGENASE OINTMENT 30 GM TUBE ONE; -MINERAL OIL/PETROLAT/GLYCERI 6OZ BTL ONE
== END ==
LOC: RAD 10:31
PROVIDERS: ATTEND Nurse Practitioner Family
DX: E11.621 Type 2 diabetes mellitus with foot ulcer (principal); L97.514 Non-pressure chronic ulcer of other part of right foot with necrosis of bone

== ENCOUNTER → 2024-11-06 | Outpatient (REF) | payer MEDICARE | LOC: CARD 10:34 | PROVIDERS: ATTEND Surgery Vascular Surgery | DX: I73.9 Peripheral vascular disease, unspecified (principal) | CPT/HCPCS: 93926 ==

== ENCOUNTER → 2024-11-18 | Outpatient (REF) | payer MEDICARE | LOC: MRI 12:41 | PROVIDERS: ATTEND Nurse Practitioner Family | DX: E11.621 Type 2 diabetes mellitus with foot ulcer (principal); L97.514 Non-pressure chronic ulcer of other part of right foot with necrosis of bone ==

== ENCOUNTER → 2024-11-26 | Outpatient (RCR) | payer MEDICARE ==
[2024-11-03 13:14] LABS: BASOPHILS # (AUTO) 0.1 (0.0-0.1); BASOPHILS % 0.5 % (0.0-1.0); EOSINOPHILS # (AUTO) 0.3 (0.0-0.4); EOSINOPHILS % 2.7 % (0.0-6.0); HEMATOCRIT 32.9 % (38.2-49.6); HEMOGLOBIN 10.5 g/dL (14.0-18.0); LYMPHOCYTES # (AUTO) 1.7 (1.0-3.2); LYMPHOCYTES % 16.4 % (18.0-39.1); MEAN CORPUSCULAR HEMOGLOBIN 29.3 pg (28-32); MEAN CORPUSCULAR HGB CONC 31.9 g/dL (31-35); MEAN CORPUSCULAR VOLUME 91.9 fL (81-99); NEUTROPHILS # (AUTO) 7.2 (2.1-6.9); NEUTROPHILS % 69.9 % (38.7-80.0); PLATELET COUNT 342 x10e3/uL (140-360); RED BLOOD COUNT 3.58 x10e6/uL (4.3-5.7); RED CELL DISTRIBUTION WIDTH 15.2 % (11.7-14.4); WHITE BLOOD COUNT 10.25 x10e3/uL (4.8-10.8)
[2024-11-03 13:29] LABS: ALBUMIN 3.3 g/dL (3.5-5.0); ALBUMIN/GLOBULIN RATIO 0.9 (0.8-2.0); ANION GAP 16.2 mmol/L (8-16); BILIRUBIN,TOTAL 0.5 mg/dL (0.2-1.2); CALCIUM 9.3 mg/dL (8.4-10.2); CREATININE, SERUM 1.31 mg/dL (0.72-1.25); POTASSIUM 4.2 mmol/L (3.5-5.1); TOTAL PROTEIN 6.9 g/dL (6.5-8.1)
[2024-11-04 05:10] LABS: C-REACTIVE PROTEIN 71 mg/L (0-10)
[2024-11-04 06:02] LABS: PREALBUMIN 16 mg/dL (9-32)
[~2024-11-26] MED LIST changes: +CEPHALEXIN500 MG PO; +CIPROFLOXACIN750 MG PO
== END ==
LOC: WCC 10-28 11:15
PROVIDERS: ATTEND Podiatrist Foot & Ankle Surgery
DX: T86.821 Skin graft (allograft) (autograft) failure (principal)
CPT/HCPCS: 36415; 80053; 82948; 83036; 84134; 85025; 86140

== ENCOUNTER 2025-01-23 05:59 | Day surgery (SDC) | payer MEDICARE ==
[2025-01-23] VITALS (11 sets, daily range): BP systolic 138–172; BP diastolic 68–78; PULSE 70–83; RESP 8–21; TEMP 97.6–98.1; O2SAT 95–100
[~2025-01-23] VITALS: Ht 162.6 cm; Wt 76.2 kg
[2025-01-23 06:42] LABS: BASOPHILS % 0.5 % (0.0-1.0); EOSINOPHILS # (AUTO) 0.3 (0.0-0.4); EOSINOPHILS % 3.4 % (0.0-6.0); HEMATOCRIT 37.1 % (38.2-49.6); LYMPHOCYTES # (AUTO) 1.7 (1.0-3.2); LYMPHOCYTES % 21.3 % (18.0-39.1); MEAN CORPUSCULAR HEMOGLOBIN 28.3 pg (28-32); MEAN CORPUSCULAR HGB CONC 32.3 g/dL (31-35); MEAN CORPUSCULAR VOLUME 87.5 fL (81-99); MONOCYTES # (AUTO) 0.7 (0.2-0.8); MONOCYTES % 8.9 % (4.4-11.3); NEUTROPHILS # (AUTO) 5.2 (2.1-6.9); NEUTROPHILS % 65.4 % (38.7-80.0); PLATELET COUNT 259 x10e3/uL (140-360); RED BLOOD COUNT 4.24 x10e6/uL (4.3-5.7); RED CELL DISTRIBUTION WIDTH 17.8 % (11.7-14.4); WHITE BLOOD COUNT 7.94 x10e3/uL (4.8-10.8)
[2025-01-23] MEDS ORDERED: HEPARIN SOD (PORCINE) 1000 UNIT/ML 30ML ONE (06:49)
[2025-01-23] MEDS ORDERED: LIDOCAINE HCL 2% LOCAL 20 ML VIAL ONE (06:49)
[2025-01-23] MEDS ORDERED: HEPARIN SOD/SOD CHLORIDE 2,000 ML ONE (06:49)
[2025-01-23] MEDS ORDERED: VERAPAMIL HCL 2.5 MG/ML 2 ML VIAL ONE (06:49)
[2025-01-23] MEDS ORDERED: SODIUM CHLORIDE 0.9% 1000ML 2,000 ML ONE (06:50)
[2025-01-23] MEDS ORDERED: IOPAMIDOL 370 MG/ML 100 ML INFUS..BTL INJ ONE (06:50)
[2025-01-23] MEDS ORDERED: NITROGLYCERIN/D5W 200 MCG/ML 250 ML ONE (06:50)
[2025-01-23 07:11] LABS: INR 0.82; PROTHROMBIN TIME 12.1 seconds (11.9-14.5)
[2025-01-23 07:18] LABS: ANION GAP 16.6 mmol/L (8-16); CALCIUM 9.3 mg/dL (8.4-10.2); POTASSIUM 4.6 mmol/L (3.5-5.1)
[2025-01-23] MEDS ORDERED: FENTANYL CITRATE/PF 100MCG/2 ML INJ ONE (08:08)
[2025-01-23] MEDS ORDERED: MIDAZOLAM HCL 2 MG/2 ML VIAL ONE (08:08)
[2025-01-23] MEDS ORDERED: PROTAMINE SULFATE 10 MG/ML 25 ML VIAL ONE (09:07)
== END 2025-01-23 12:30 | disposition home or self-care (01) ==
LOC: CATH LAB 05:59
PROVIDERS: ATTEND Surgery Vascular Surgery
DX: I70.291 Other atherosclerosis of native arteries of extremities, right leg (principal); T87.89 Other complications of amputation stump; E11.9 Type 2 diabetes mellitus without complications; I10 Essential (primary) hypertension; Y83.5 Amputation of limb(s) as the cause of abnormal reaction of the patient, or of later complication, without mention of misadventure at the time of the procedure; Z88.2 Allergy status to sulfonamides; Z79.02 Long term (current) use of antithrombotics/antiplatelets; Z79.82 Long term (current) use of aspirin; Z79.4 Long term (current) use of insulin; Z79.84 Long term (current) use of oral hypoglycemic drugs; Z79.899 Other long term (current) drug therapy
CPT/HCPCS: 36415; 37225; 76937; 80048; 82948; 85025; 85610; C1724; C1725; C1760; C1766; C1769 ×2; C1894; J1644; J2003; J2250; J3010; J7030; Q9967; 37246; 75710; 99152; 99153

== ENCOUNTER → 2025-02-26 | Outpatient (RCR) | payer MEDICARE | LOC: WCC 01-28 14:52 | PROVIDERS: ATTEND Podiatrist Foot & Ankle Surgery | DX: E11.621 Type 2 diabetes mellitus with foot ulcer (principal); M86.671 Other chronic osteomyelitis, right ankle and foot; L97.514 Non-pressure chronic ulcer of other part of right foot with necrosis of bone | CPT/HCPCS: 36415 ×17; 82948 ×17; 99212 ×3; 99213 ×4; G0277 ×17 ==

== ENCOUNTER 2025-03-27 10:00 | Outpatient (RCR) | payer MEDICARE ==
[~2025-03-27 10:00] MED LIST changes: +MINERAL OIL/PETROLAT/GLYCERI 6OZ BTL ONE
== END 2025-03-29 ==
LOC: WCC 10:00
PROVIDERS: ATTEND Nurse Practitioner Family
DX: E11.621 Type 2 diabetes mellitus with foot ulcer (principal); M86.671 Other chronic osteomyelitis, right ankle and foot; L97.514 Non-pressure chronic ulcer of other part of right foot with necrosis of bone
CPT/HCPCS: 36415 ×17; 82948 ×17; 99213 ×4; G0277 ×7

== ENCOUNTER 2025-04-27 10:30 | Outpatient (RCR) | payer MEDICARE ==
[~2025-04-27 10:30] MED LIST changes: -MINERAL OIL/PETROLAT/GLYCERI 6OZ BTL ONE
== END 2025-04-28 ==
LOC: WCC 10:30
PROVIDERS: ATTEND Internal Medicine Infectious Disease
DX: E11.621 Type 2 diabetes mellitus with foot ulcer (principal); L97.514 Non-pressure chronic ulcer of other part of right foot with necrosis of bone
CPT/HCPCS: 36415 ×7; 82948 ×7; 99213 ×7; G0277 ×6

== ENCOUNTER → 2025-05-14 | Outpatient (REF) | payer MEDICARE | LOC: CARD 09:47 | PROVIDERS: ATTEND Surgery Vascular Surgery | DX: I73.9 Peripheral vascular disease, unspecified (principal) | CPT/HCPCS: 93926 ==